=== PATIENT | male | born 1955 | race African-American/Black ===

== ENCOUNTER 2018-02-22 09:55 | Day surgery (SDC) | payer BC ==
[2018-02-21 13:04] VITALS: BMI 23.8
[2018-02-22 10:39] LABS: BASO % 0.8 % (0-2.0); EOS % 3.6 % (0-4.5); HEMATOCRIT 39.2 % (35.4-49); HEMOGLOBIN 13.9 GM/dL (11.7-16.9); LYMPH % 35.7 % (8-40); MCH 32.6 pg (25.7-33.7); MCHC 35.4 g/dl (32.0-35.9); MEAN CELL VOLUME 92.1 fl (80-96); MEAN PLT VOLUME 7.1 fl (7.5-11.1); MONO % 7.8 % (3.8-10.2); NEUT % 52.1 % (42.8-82.8); PLATELET COUNT 201 K/MM3 (134-434); RBC 4.25 M/mm3 (4.00-5.60); RDW 16.1 % (11.9-15.9); WHITE BLOOD COUNT 5.6 K/mm3 (4.0-10.0)
[2018-02-22 10:44] LABS: INR 1.08 (0.83-1.09); PROTHROMBIN TIME (PATIENT) 12.2 SEC (9.7-13.0)
[2018-02-22 10:51] LABS: ALBUMIN 3.6 g/dl (3.4-5.0); ANION GAP 5 (8-16); BILIRUBIN,TOTAL 0.4 mg/dL (0.2-1.0); BLOOD UREA NITROGEN 11 mg/dL (7-18); CALCIUM 8.4 mg/dL (8.5-10.1); CHLORIDE 109 mmol/L (98-107); CO2 28 mmol/L (21-32); GLUCOSE,RANDOM 86 mg/dL (74-106); POTASSIUM 3.9 mmol/L (3.5-5.1); SGOT/AST 7 U/L (15-37); SGPT/ALT 19 U/L (12-78); SODIUM 142 mmol/L (136-145); TOT PROT 7.2 g/dl (6.4-8.2)
[2018-02-22 10:52] LABS: ALK PHOS 81 U/L (45-117)
[2018-02-22 11:22] VITALS: BP 128/82; PULSE 96; TEMP 97.8
--- NOTE | 2018-02-22 12:46 | HP ---
History & Physical Update - History History: No Change - Physical Physical: No Change - Assessment Assessment: No Change - Plan Plan: No Change
--- NOTE | 2018-02-22 13:10 | EKG ---
Test Reason : Blood Pressure : / mmHG Vent. Rate : 089 BPM Atrial Rate : 115 BPM P-R Int : 000 ms QRS Dur : 078 ms QT Int : 368 ms P-R-T Axes : 000 078 064 degrees QTc Int : 447 ms NORMAL SINUS RHYTHM WITH FREQUENT and repetitive APC's, single, VPC's. OTHERWISE NORMAL ECG Confirmed by Berto Perez MD ([id number]) on 02/22/2018 1:10:11 PM Referred By: Pa Arceo Confirmed By:Berto Perez MD
--- NOTE | 2018-02-22 13:32 | PN ---
Progress Note (short form) - Note Progress Note: PULMONARY Just before anesthesia induction for bronchoscopy, pt was noted to go into paroxysmal atrial fibrillation with rapid rates. Pt with feeling of palpitations , he states that this happens to him when he lies down at night. Also reports some intermittent chest pain and shortness of breath. Procedure aborted. Spoke to office of PMD Dr. Brandon Mensah, will send pt to life teacher Dr. Mary Lou Coffey for further cardiac work up. Pa Arceo MD
== END 2018-02-22 13:35 | disposition home or self-care (01) ==
LOC: JASU-SURG 09:55
PROVIDERS: ATTEND Internal Medicine
PROC: 0BJ08ZZ Inspection of Tracheobronchial Tree, Via Natural or Artificial Opening Endoscopic (ICD-10-PCS; principal; 2018-02-22)
DX: D38.1 Neoplasm of uncertain behavior of trachea, bronchus and lung (principal); I48.0 Paroxysmal atrial fibrillation; Z72.0 Tobacco use; Z53.8 Procedure and treatment not carried out for other reasons; Z86.19 Personal history of other infectious and parasitic diseases
CPT/HCPCS: 36415; 80053; 85025; 85610; 93005; 93010

== ENCOUNTER 2018-04-07 10:39 | Inpatient (IN) | payer BC, OTHER ==
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
[2018-04-07 13:09] LABS: EOS % 3.2 % (0-4.5); HEMATOCRIT 42.6 % (35.4-49); HEMOGLOBIN 14.4 GM/dL (11.7-16.9); LYMPH % 35.9 % (8-40); MCH 31.3 pg (25.7-33.7); MCHC 33.7 g/dl (32.0-35.9); MEAN CELL VOLUME 92.7 fl (80-96); MEAN PLT VOLUME 7.1 fl (7.5-11.1); MONO % 9.3 % (3.8-10.2); NEUT % 50.6 % (42.8-82.8); PLATELET COUNT 204 K/MM3 (134-434); RBC 4.59 M/mm3 (4.00-5.60); RDW 15.7 % (11.9-15.9); WHITE BLOOD COUNT 4.9 K/mm3 (4.0-10.0)
[2018-04-07 13:20] LABS: INR 1.32 (0.83-1.09); PROTHROMBIN TIME (PATIENT) 15.6 SEC (9.7-13.0)
[2018-04-07 14:15] LABS: ALBUMIN 3.6 g/dl (3.4-5.0); ALK PHOS 70 U/L (45-117); ANION GAP 8 MMOL/L (8-16); BILIRUBIN,TOTAL 0.6 mg/dL (0.2-1); BLOOD UREA NITROGEN 11 mg/dL (7-18); CALCIUM 8.9 mg/dL (8.5-10.1); CHLORIDE 107 mmol/L (98-107); CO2 24 mmol/L (21-32); CREATININE 0.8 mg/dL (0.55-1.3); GLUCOSE,RANDOM 70 mg/dL (74-106); POTASSIUM 3.8 mmol/L (3.5-5.1); SGOT/AST 13 U/L (15-37); SGPT/ALT 16 U/L (13-61); SODIUM 138 mmol/L (136-145); TOT PROT 7.3 g/dl (6.4-8.2)
--- NOTE | 2018-04-07 14:24 | HP ---
Admitting History and Physical - Primary Care Physician PCP: Brandon Mensah I - Admission Chief Complaint: weight gain UE edema and facial edema History of Present Illness: CHIEF COMPLAINT: Shortness of breath HISTORY OF PRESENT ILLNESS: This is a 62-year-old male with a history of cigarette smoking, COPD, hypertension, recently diagnosed atrial fibrillation ( on Eliquis) and known lung nodule for 20 years. He was scheduled for bronchoscopy in February, but was noted to have new atrial fibrillation at the time of the procedure, so it was deferred. Since that time, he has had worsening symptoms, including dyspnea on minimal exertion and with laying flat ( he reports that he now has to sleep upright) and cough with occasional hemoptysis ("a spot" of blood). He presents today after being seen in his supervisor plating and point assembly's office with worsening dyspnea and new upper extremity edema. He is referred for suspicion of possible SVC syndrome.per patient he has gained 9 months with increase in upper arms and face swelling Vital signs on arrival are notable for SpO2 90% on room air. PCP: Dr. Ling Mensah Shaper And Presser: Dr. Coffey [place] Handle Knife Assembler: Dr. Arceo History Source: Patient - Past Medical History Cardiovascular: Yes: AFIB, HTN, Other (smoker with lung mass) Pulmonary: Yes: COPD - Smoking History Smoking history: Current every day smoker Aproximately how many cigarettes per day: 8 - Alcohol/Substance Use Hx Alcohol Use: No Home Medications - Allergies Allergies/Adverse Reactions: Allergies Allergy/AdvReac Type Severity Reaction Status Date / Time No Known Allergies Allergy Verified 04/07/18 10:50 - Home Medications Home Medications: Ambulatory Orders Albuterol Sulfate [Proventil HFA Inhaler -] 1 - 2 inh PO QID 02/22/18 Tiotropium Br/Olodaterol HCl [Stiolto Respimat Inhal [place]] 4 gm IH DAILY Apixaban [Eliquis] 5 mg PO BID 04/07/18 Metoprolol Succinate [Toprol Xl] 50 mg PO BID 04/07/18 Oxycodone HCl/Acetaminophen [Oxycodone-Acetaminophen 10-325] 1 each PO Q4H PRN 04/07/18 Review of Systems - Review of Systems Respiratory: reports: Cough Physical Examination Vital Signs: Vital Signs Temperature 97.9 F 04/07/18 10:51 Pulse Rate 79 04/07/18 10:51 Respiratory Rate 16 04/07/18 10:51 Blood Pressure 125/66 04/07/18 10:51 O2 Sat by Pulse Oximetry (%) 98 04/07/18 11:30 Constitutional: Yes: Calm, Other (facial and neck swelling) Cardiovascular: Yes: Regular Rate and Rhythm, S1, S2 Respiratory: Yes: Diminished Gastrointestinal: Yes: Normal Bowel Sounds, Soft Extremities: Yes: Other (upper extremity swelling) Edema: No Labs: CBC, BMP 04/07/18 12:50 04/07/18 12:50 Problem List - Problems (1) Dyspnea Assessment/Plan: ct scan of chest to r/o thrombus and to see SVC further evaluate the lung mass patient was supposed to get bronchscopy in february of this year but develop new onset afib cardio and pulm eval dvt ppx Code(s): R06.00 - DYSPNEA, UNSPECIFIED Qualifiers: Dyspnea type: dyspnea on exertion Qualified Code(s): R06.09 - Other forms of dyspnea (2) Lung mass Assessment/Plan: ct scan pulm eval bronchodilators oxygen therapy Code(s): R91.8 - OTHER NONSPECIFIC ABNORMAL FINDING OF LUNG FIELD (3) Afib Assessment/Plan: metoprolol eliquis Code(s): I48.91 - UNSPECIFIED ATRIAL FIBRILLATION (4) COPD (chronic obstructive pulmonary disease) Assessment/Plan: oxygen bronchodilators Code(s): J44.9 - CHRONIC OBSTRUCTIVE PULMONARY DISEASE, UNSPECIFIED
--- NOTE | 2018-04-07 14:57 | CON.PULM ---
Consult Consult Specialty:: PULMONARY Referred by:: Dr. Veliz Reason for Consultation:: lung mass - History of Present Illness Chief Complaint: arm/facial swelling History of Present Illness: 62yo male with h/o COPD, paroxysmal atrial fibrillation, known lung mass who was sent by client services analyst office for increasing facial and arm swelling. He reports symptoms started about 2 weeks ago with shortness of breath and dysphagia. Also noted to have voice hoarseness. He reports nocturnal dyspnea and then has to sleep at an incline. He does reports some chest discomfort. + cough with occasional blood. He was scheduled for a bronchoscopy in February, was about to induce anesthesia when he developed atrial fibrillation with RVR. Was sent to client services analyst who has been performing an outpt work up but still with episodes of atrial fibrillation. - History Source History Provided By: Patient, Medical Record Limitations to Obtaining History: No Limitations - Past Medical History Cardio/Vascular: Yes: AFIB, HTN, Other (smoker with lung mass) Pulmonary: Yes: COPD - Alcohol/Substance Use Hx Alcohol Use: No - Smoking History Smoking history: Current every day smoker Aproximately how many cigarettes per day: 8 Home Medications - Allergies Allergies/Adverse Reactions: Allergies Allergy/AdvReac Type Severity Reaction Status Date / Time No Known Allergies Allergy Verified 04/07/18 10:50 - Home Medications Home Medications: Ambulatory Orders Albuterol Sulfate [Proventil HFA Inhaler -] 1 - 2 inh PO QID 02/22/18 Tiotropium Br/Olodaterol HCl [Stiolto Respimat Inhal [place]] 4 gm IH DAILY Apixaban [Eliquis] 5 mg PO BID 04/07/18 Metoprolol Succinate [Toprol Xl] 50 mg PO BID 04/07/18 Oxycodone HCl/Acetaminophen [Oxycodone-Acetaminophen 10-325] 1 each PO Q4H PRN 04/07/18 Review of Systems - Review of Systems Constitutional: reports: Weakness. denies: Chills, Fever Eyes: denies: Recent Change in Vision HENT: reports: Difficult Swallowing, Throat Pain. denies: Nasal Congestion Neck: denies: Stiffness, Tenderness Cardiovascular: reports: Chest Pain, Edema, Shortness of Breath. denies: Palpitations Respiratory: reports: Cough, Hemoptysis, Orthopnea, PND, SOB on Exertion. denies: Wheezing Gastrointestinal: denies: Abdominal Pain, Nausea, Vomiting Genitourinary: denies: Dysuria, Hematuria Neurological: denies: Dizziness, Headache Endocrine: denies: Unexplained Weight Loss Physical Exam Vital Sings: Vital Signs Temperature 97.9 F 04/07/18 10:51 Pulse Rate 79 04/07/18 10:51 Respiratory Rate 16 04/07/18 10:51 Blood Pressure 125/66 04/07/18 10:51 O2 Sat by Pulse Oximetry (%) 98 04/07/18 11:30 Constitutional: Yes: Calm Eyes: Yes: Conjunctiva Clear, EOM Intact HENT: Yes: Atraumatic Neck: Yes: Other (edema) Cardiovascular: Yes: Regular Rate and Rhythm Respiratory: Yes: Diminished (decreased breath sounds at the bases) ...Clubbing: Yes Gastrointestinal: Yes: Normal Bowel Sounds, Soft. No: Tenderness Edema: Yes Labs: CBC, BMP 04/07/18 12:50 04/07/18 12:50 Imaging - Results Cat Scan: Image Reviewed (large RUL mass, emphysema) Problem List - Problems (1) SVC syndrome Code(s): I87.1 - COMPRESSION OF VEIN (2) COPD (chronic obstructive pulmonary disease) Code(s): J44.9 - CHRONIC OBSTRUCTIVE PULMONARY DISEASE, UNSPECIFIED (3) Hemoptysis Code(s): R04.2 - HEMOPTYSIS (4) Lung mass Code(s): R91.8 - OTHER NONSPECIFIC ABNORMAL FINDING OF LUNG FIELD (5) Smoker Code(s): F17.200 - NICOTINE DEPENDENCE, UNSPECIFIED, UNCOMPLICATED (6) Paroxysmal atrial fibrillation Code(s): I48.0 - PAROXYSMAL ATRIAL FIBRILLATION Assessment/Plan Likely SVC Syndrome Lung Mass COPD Emphysema Hemoptysis Paroxysmal Atrial Fibrillation on anticoagulation Smoker - CT chest with contrast - will need to hold anticoagulation and obtain needle biopsy - bridge eliquis with lovenox prior to biopsy - oncology and radiation oncology evaluation after biopsy - rate control - inhaled bronchodilators - monitor/quantify hemoptysis - smoking cessation Thank you for this consult Pa Arceo MD
--- NOTE | 2018-04-07 21:46 | EKG ---
Test Reason : Blood Pressure : / mmHG Vent. Rate : 072 BPM Atrial Rate : 072 BPM P-R Int : 180 ms QRS Dur : 082 ms QT Int : 398 ms P-R-T Axes : 048 -11 016 degrees QTc Int : 435 ms NORMAL SINUS RHYTHM NORMAL ECG WHEN COMPARED WITH ECG OF 22-FEB-2018 10:16, NONSPECIFIC T WAVE ABNORMALITY NOW EVIDENT IN INFERIOR LEADS Confirmed by SOL ANDERSON MD ([id number]) on 04/07/2018 9:45:59 PM Referred By: Confirmed By:SOL ANDERSON MD
[2018-04-07] MEDS ORDERED: APIXABAN 5 MG TABLET PO SCH (22:00)
[2018-04-07] MEDS: METOPROLOL TARTRATE 50 MG TABLET (FP) PO SCH (22:03)
[2018-04-07] MEDS ORDERED: METOPROLOL TARTRATE 50 MG TABLET (FP) ONE (22:05)
[2018-04-08] MEDS ORDERED: ACETAMINOPHEN 325 MG TABLET (FP) PO ONE (02:42)
[2018-04-08 06:02] LABS: BASO % 0.6 % (0-2.0); EOS % 2.9 % (0-4.5); HEMATOCRIT 40.2 % (35.4-49); HEMOGLOBIN 13.7 GM/dL (11.7-16.9); LYMPH % 26.5 % (8-40); MCH 31.3 pg (25.7-33.7); MEAN CELL VOLUME 91.9 fl (80-96); MEAN PLT VOLUME 7.2 fl (7.5-11.1); MONO % 9.3 % (3.8-10.2); NEUT % 60.7 % (42.8-82.8); PLATELET COUNT 234 K/MM3 (134-434); RBC 4.37 M/mm3 (4.00-5.60); RDW 15.6 % (11.9-15.9); WHITE BLOOD COUNT 5.7 K/mm3 (4.0-10.0)
[2018-04-08 06:22] LABS: ALBUMIN 3.6 g/dl (3.4-5.0); ALK PHOS 72 U/L (45-117); ANION GAP 8 MMOL/L (8-16); BILIRUBIN,TOTAL 0.5 mg/dL (0.2-1); BLOOD UREA NITROGEN 11 mg/dL (7-18); CALCIUM 9.6 mg/dL (8.5-10.1); CHLORIDE 106 mmol/L (98-107); CO2 25 mmol/L (21-32); CREATININE 0.7 mg/dL (0.55-1.3); GLUCOSE,RANDOM 84 mg/dL (74-106); POTASSIUM 4.2 mmol/L (3.5-5.1); SGOT/AST 11 U/L (15-37); SGPT/ALT 17 U/L (13-61); SODIUM 138 mmol/L (136-145); TOT PROT 7.3 g/dl (6.4-8.2)
[2018-04-08] MEDS ORDERED: PT OWN MED DRAWER 7, Y5N ONE ×2 (08:24→12:59)
--- NOTE | 2018-04-08 09:11 | CON.CARD ---
Consult Consult Specialty:: Cardiology Referred by:: Brandon Mensah MD - History of Present Illness Chief Complaint: SVC syndrome History of Present Illness: 62yo male with h/o HTN/HCVD, COPD, paroxysmal atrial fibrillation, known lung mass, hep C post treatment and chronic LBP, paroxysmal afib referred to ER for increasing facial and arm swelling. He reports symptoms started about 2 weeks ago with shortness of breath and dysphagia. Also noted to have voice hoarseness. He reports nocturnal dyspnea and then has to sleep at an incline. He does reports some chest discomfort. +cough with occasional blood. He was scheduled for a bronchoscopy in February, was about to induce anesthesia when he developed atrial fibrillation with RVR and palpitations confirmed by holter monitoring and decreasing in frequency after initiation of beta-blockade. - Past Medical History Cardio/Vascular: Yes: AFIB, HTN, Other (smoker with lung mass) Pulmonary: Yes: COPD - Alcohol/Substance Use Hx Alcohol Use: No - Smoking History Smoking history: Current every day smoker Have you smoked in the past 12 months: Yes Aproximately how many cigarettes per day: 5 Home Medications - Allergies Allergies/Adverse Reactions: Allergies Allergy/AdvReac Type Severity Reaction Status Date / Time No Known Allergies Allergy Verified 04/07/18 10:50 - Home Medications Home Medications: Ambulatory Orders Albuterol Sulfate [Proventil HFA Inhaler -] 1 - 2 inh PO QID 02/22/18 Tiotropium Br/Olodaterol HCl [Stiolto Respimat Inhal [place]] 4 gm IH DAILY Apixaban [Eliquis] 5 mg PO BID 04/07/18 Metoprolol Succinate [Toprol Xl] 50 mg PO BID 04/07/18 Oxycodone HCl/Acetaminophen [Oxycodone-Acetaminophen 10-325] 1 each PO Q4H PRN 04/07/18 Family Disease History - Family Disease History Family History: Unremarkable Review of Systems - Review of Systems Constitutional: reports: No Symptoms Eyes: reports: No Symptoms HENT: reports: No Symptoms Neck: reports: No Symptoms Respiratory: reports: Hemoptysis, SOB, SOB on Exertion Gastrointestinal: reports: No Symptoms Genitourinary: reports: No Symptoms Musculoskeletal: reports: No Symptoms Integumentary: reports: No Symptoms Neurological: reports: No Symptoms Endocrine: reports: No Symptoms Hematology/Lymphatic: reports: No Symptoms Vital Signs: Vital Signs Temperature 99.0 F 04/08/18 04:51 Pulse Rate 82 04/08/18 07:58 Respiratory Rate 18 04/08/18 07:58 Blood Pressure 151/88 04/08/18 07:58 O2 Sat by Pulse Oximetry (%) 95 04/07/18 22:36 Constitutional: Yes: No Distress, Calm Neck: Yes: Supple Respiratory: Yes: Regular, Diminished, On Nasal O2 Gastrointestinal: Yes: Normal Bowel Sounds, Soft Cardiovascular: Yes: Regular Rate and Rhythm JVD: No Carotid Bruit: No Heart Sounds: Yes: S1, S2 Edema: Yes - Other Data Labs, Other Data: CBC, BMP 04/08/18 05:30 04/08/18 05:30 INR, PTT INR 1.32 (0.83-1.09) H 04/07/18 12:50 Troponin, BNP 04/07/18 12:50 Troponin I < 0.02 B-Natriuretic Peptide 32.0 Troponin, BNP 04/07/18 12:50 Troponin I < 0.02 B-Natriuretic Peptide 32.0 NSR @ 72 Tele: PAF->SR Holter: Report Reviewed Ejection Fraction %: LVEF > or = 40 % Imaging - Results Cat Scan: Report Reviewed Problem List - Problems (1) COPD (chronic obstructive pulmonary disease) Code(s): J44.9 - CHRONIC OBSTRUCTIVE PULMONARY DISEASE, UNSPECIFIED Qualifiers: COPD type: unspecified COPD Qualified Code(s): J44.9 - Chronic obstructive pulmonary disease, unspecified (2) Dyspnea Code(s): R06.00 - DYSPNEA, UNSPECIFIED Qualifiers: Dyspnea type: dyspnea on exertion Qualified Code(s): R06.09 - Other forms of dyspnea (3) Hemoptysis Code(s): R04.2 - HEMOPTYSIS (4) Lung mass Code(s): R91.8 - OTHER NONSPECIFIC ABNORMAL FINDING OF LUNG FIELD (5) Paroxysmal atrial fibrillation Code(s): I48.0 - PAROXYSMAL ATRIAL FIBRILLATION (6) SVC syndrome Code(s): I87.1 - COMPRESSION OF VEIN (7) Smoker Code(s): F17.200 - NICOTINE DEPENDENCE, UNSPECIFIED, UNCOMPLICATED Assessment/Plan 02/22/2018 Holter Monitor: SR with paroxysmal afib/flutter with aberrant conduction (RBBB morphology) 5.44% of time, frequent PAC, PVC 12/22/2017 Large irregular cavitary soft tissue mass involving right superior mediastinum in right to mid and superior hilar region suspicious for primary or secondary malignancy 04/07/2018 Large central RUL mass with invasion of mediastinum and adjacent consolidation/ATX RUL, distal SVC stenosis without obstruction with collateralization 03/11/2018 Echo: Normal LV and RV size and fxn with abnl LV compliance, mildly dilated ascending aorta, mild MR, TR. tr AL 03/29/2018 ETT Myoview: Negative maximal stress test for ischemia, LVEF 60% 1. SVC Syndrome 2. RUL Lung Mass with hemoptysis 3. COPD/Emphysema 4. Palpitations, Paroxysmal Atrial Fibrillation->SR [id number] on anticoagulation 5. HTN/HCVD 6. Hep C post-treatment 7. Smoker Plan: 1. Hold Eliquis for biopsy, bridge eliquis with lovenox prior to biopsy 2. CTS, oncology and radiation oncology evaluation after biopsy 3. Rate control with Lopressor 50 bid 4. Inhaled bronchodilators, O2 as needed, smoking cessation 5. Thank you for consultative opportunity -
--- NOTE | 2018-04-08 09:41 | PN ---
Progress Note, Physician History of Present Illness: 62-year-old male with a history of cigarette smoking, COPD, hypertension, recently diagnosed atrial fibrillation (on Eliquis) and known lung nodule for 20 years. He was scheduled for bronchoscopy in February, but was noted to have new atrial fibrillation at the time of the procedure, so it was deferred. Since that time, he has had worsening symptoms, including dyspnea on minimal exertion and with laying flat (he reports that he now has to sleep upright) and cough with occasional hemoptysis ("a spot" of blood). He presents today after being seen in his pulmonary fellow's office with worsening dyspnea and new upper extremity edema. He is referred for suspicion of possible SVC syndrome.per patient he has gained 9 months with increase in upper arms and face swelling Vital signs on arrival are notable for SpO2 90% on room air. - Current Medication List Current Medications: Active Medications Influenza Virus Vaccine Quadrival (Flulaval Quad [id number]) 60 mcg IM .ONCE ONE Stop: 04/08/18 10:01 Metoprolol Tartrate (Lopressor -) 50 mg PO BID [facility] Last Admin: 04/07/18 22:03 Dose: 50 mg Pneumococcal 13-Valent Conj Vacc (Prevnar 13 Syringe -) 0.5 ml IM .ONCE ONE Stop: 04/08/18 10:01 Tiotropium [place] (Spiriva Respimat) 2 puff IH DAILY [facility] - Objective Vital Signs: Vital Signs Temperature 99.0 F 04/08/18 04:51 Pulse Rate 82 04/08/18 07:58 Respiratory Rate 18 04/08/18 07:58 Blood Pressure 151/88 04/08/18 07:58 O2 Sat by Pulse Oximetry (%) 95 04/07/18 22:36 Cardiovascular: Yes: Murmur, S1, S2 Respiratory: Yes: Diminished Gastrointestinal: Yes: Normal Bowel Sounds, Soft. No: Tenderness Labs: CBC, BMP 04/08/18 05:30 04/08/18 05:30 INR, PTT INR 1.32 (0.83-1.09) H 04/07/18 12:50 Problem List - Problems (1) Lung mass Assessment/Plan: ct scan pulm eval bronchodilators oxygen therapy Code(s): R91.8 - OTHER NONSPECIFIC ABNORMAL FINDING OF LUNG FIELD (2) Dyspnea Assessment/Plan: ct scan of chest to r/o thrombus and to see SVC further evaluate the lung mass patient was supposed to get bronchscopy in february of this year but develop new onset afib cardio and pulm eval dvt ppx Code(s): R06.00 - DYSPNEA, UNSPECIFIED Qualifiers: Dyspnea type: dyspnea on exertion Qualified Code(s): R06.09 - Other forms of dyspnea (3) Afib Assessment/Plan: metoprolol eliquis on hold for biopsy Code(s): I48.91 - UNSPECIFIED ATRIAL FIBRILLATION (4) COPD (chronic obstructive pulmonary disease) Assessment/Plan: oxygen bronchodilators Code(s): J44.9 - CHRONIC OBSTRUCTIVE PULMONARY DISEASE, UNSPECIFIED Qualifiers: COPD type: unspecified COPD Qualified Code(s): J44.9 - Chronic obstructive pulmonary disease, unspecified (5) SVC syndrome Assessment/Plan: Pulm on board TS consult Code(s): I87.1 - COMPRESSION OF VEIN
[2018-04-08] MEDS: METOPROLOL TARTRATE 50 MG TABLET (FP) PO SCH (09:51)
[2018-04-08] MEDS ORDERED: PNEUMOC 13-VAL CONJ-DIP CRM/PF 0.5 ML DISP.SYRIN IM ONE (10:00)
[2018-04-08] MEDS ORDERED: FLU VACCINE QUAD 60 MCG/0.5 ML (MDV 18-19) IM ONE (10:00)
[2018-04-08] MEDS: ENOXAPARIN NA (PORCINE) 100 MG/1 ML DISP.SYRIN SQ SCH ×2 (12:59→23:04)
[2018-04-08] MEDS: TIOTROPIUM BROMIDE 2.5 MCG (SPIRIVA) RESPIMAT INHALER IH SCH (13:00)
--- NOTE | 2018-04-08 13:30 | PN ---
Progress Note (short form) - Note Progress Note: Breathing feels a little better. Reports "chest fullness". feels the left side of his face is slightly more swollen today. CTS evaluation has been called. Lovenox 100mg BID ordered. Intake & Output 04/05/18 04/06/18 04/07/18 04/08/18 23:59 23:59 23:59 23:59 Intake Total 0 100 Balance 0 100 Weight 192 lb 6.4 oz Last Vital Signs Temp Pulse Resp BP Pulse Ox 99.0 F 82 18 151/88 96 04/08/18 04:51 04/08/18 07:58 04/08/18 07:58 04/08/18 07:58 04/08/18 09:00 Active Medications Enoxaparin Sodium (Lovenox -) 100 mg SQ BID [facility] Last Admin: 04/08/18 12:59 Dose: 100 mg Metoprolol Tartrate (Lopressor -) 50 mg PO BID [facility] Last Admin: 04/08/18 09:51 Dose: 50 mg Tiotropium [place] (Spiriva Respimat) 2 puff IH DAILY [facility] Last Admin: 04/08/18 13:00 Dose: 2 puff Constitutional: Yes: NAD Eyes: Yes: Conjunctiva Clear, EOM Intact HENT: Yes: Atraumatic Neck: Yes: (-) JVD, Right neck fullness Cardiovascular: Yes: Regular Rate and Rhythm Respiratory: Yes: Diminished (decreased breath sounds at the bases) ...Clubbing: Yes Gastrointestinal: Yes: Normal Bowel Sounds, Soft. No: Tenderness Edema: RUE swelling Labs: Laboratory Results - last 24 hr 04/07/18 04/07/18 04/07/18 12:50 12:50 17:05 WBC RBC Hgb Hct MCV MCH MCHC RDW Plt Count MPV Absolute Neuts (auto) Neutrophils % Lymphocytes % Monocytes % Eosinophils % Basophils % Nucleated RBC % Sodium 138 Potassium 3.8 Chloride 107 Carbon Dioxide 24 Anion Gap 8 BUN 11 Creatinine 0.8 Creat Clearance w eGFR > 60 Random Glucose 70 L Calcium 8.9 Total Bilirubin 0.6 AST 13 L ALT 16 Alkaline Phosphatase 70 Troponin I < 0.02 B-Natriuretic Peptide 32.0 Total Protein 7.3 Albumin 3.6 Blood Type O POSITIVE O POSITIVE Antibody Screen Negative 04/08/18 04/08/18 05:30 05:30 WBC 5.7 RBC 4.37 Hgb 13.7 Hct 40.2 MCV 91.9 MCH 31.3 MCHC 34.0 RDW 15.6 Plt Count 234 MPV 7.2 L Absolute Neuts (auto) 3.5 Neutrophils % 60.7 Lymphocytes % 26.5 D Monocytes % 9.3 Eosinophils % 2.9 Basophils % 0.6 Nucleated RBC % 0 Sodium 138 Potassium 4.2 Chloride 106 Carbon Dioxide 25 Anion Gap 8 BUN 11 Creatinine 0.7 Creat Clearance w eGFR > 60 Random Glucose 84 Calcium 9.6 Total Bilirubin 0.5 AST 11 L ALT 17 Alkaline Phosphatase 72 Troponin I B-Natriuretic Peptide Total Protein 7.3 Albumin 3.6 Blood Type Antibody Screen Problem List - Problems (1) SVC syndrome Code(s): I87.1 - COMPRESSION OF VEIN (2) COPD (chronic obstructive pulmonary disease) Code(s): J44.9 - CHRONIC OBSTRUCTIVE PULMONARY DISEASE, UNSPECIFIED (3) Hemoptysis Code(s): R04.2 - HEMOPTYSIS (4) Lung mass Code(s): R91.8 - OTHER NONSPECIFIC ABNORMAL FINDING OF LUNG FIELD (5) Smoker Code(s): F17.200 - NICOTINE DEPENDENCE, UNSPECIFIED, UNCOMPLICATED (6) Paroxysmal atrial fibrillation Code(s): I48.0 - PAROXYSMAL ATRIAL FIBRILLATION Assessment/Plan SVC Syndrome due to Lung Mass COPD Emphysema Hemoptysis Paroxysmal Atrial Fibrillation on anticoagulation Smoker - CTS evaluation has been called - NOAC changed to Lovenox - Rate control - Inhaled bronchodilators - Monitor/quantify hemoptysis (none today) - smoking cessation discussed - Monitor UE/chest edema Dr Jean
--- NOTE | 2018-04-08 15:31 | CONSULT ---
Consultation: REQUESTING PROVIDER:Anika Veliz CONSULT REQUEST: We have been asked to medically evaluate this patient for Lung Mass HISTORY OF PRESENT ILLNESS: 62 yo male with PMHx of smoking with COPD, paroxysmal atrial fibrillation (AC -Eliquis), known lung mass who was sent from his [facility] for increasing facial and arm swelling. He states that for the past two weeks he has noticed increased swelling of right arm and right face. Swelling is associated with voice changes. He reports nocturnal dyspnea and then has to sleep at an incline. He also describes intermittent 9/10 sharp right sided chest pain that radiates to his back. No alleviating or aggravating factors. Accompanied by headache. He endorses that one week prior he had one episode of coughing which he had a spot of blood. He was scheduled for a bronchoscopy in February, was about to induce anesthesia when he developed atrial fibrillation with RVR. Was sent to [facility] long [facility] care who has been performing an outpatient work up but still with episodes of atrial fibrillation. He also reports a 9 lbs weight gain in past 2 weeks based on his weights at cardiology visits. Denies SOB, abdominal pain, nausea, vomiting, fever or chills. - History Source History Provided By: Patient, Medical Record Limitations to Obtaining History: No Limitations - Past Medical History Cardio/Vascular: Yes: AFIB, HTN, Other (smoker with lung mass) Pulmonary: Yes: COPD - Alcohol/Substance Use Hx Alcohol Use: No - Smoking History Smoking history: Current every day smoker Aproximately how many cigarettes per day: 8 REVIEW OF SYSTEMS: CONSTITUTIONAL: weight change Absent: fever, chills, diaphoresis, generalized weakness, malaise, loss of appetite, HEENT: Absent: rhinorrhea, nasal congestion, throat pain, throat swelling, difficulty swallowing, mouth swelling, ear pain, eye pain, visual changes CARDIOVASCULAR: chest pain Absent: , syncope, palpitations, irregular heart rate, lightheadedness, peripheral edema RESPIRATORY: cough, dyspnea with exertion Absent: , shortness of breath, , orthopnea, wheezing, stridor, hemoptysis GASTROINTESTINAL: Absent: abdominal pain, abdominal distension, nausea, vomiting, diarrhea, constipation, melena, hematochezia GENITOURINARY: Absent: dysuria, frequency, urgency, hesitancy, hematuria, flank pain, genital pain MUSCULOSKELETAL: Absent: myalgia, arthralgia, joint swelling, back pain, neck pain SKIN: Absent: rash, itching, pallor HEMATOLOGIC/IMMUNOLOGIC: Absent: easy bleeding, easy bruising, lymphadenopathy, frequent infections ENDOCRINE:unexplained weight gain Absent: , unexplained weight loss, heat intolerance, cold intolerance NEUROLOGIC: Absent: headache, focal weakness or paresthesias, dizziness, unsteady gait, seizure, mental status changes, bladder or bowel incontinence PSYCHIATRIC: Absent: anxiety, depression, suicidal or homicidal ideation, hallucinations. PHYSICAL EXAMINATION Vital Signs - 24 hr 04/07/18 04/07/18 04/07/18 16:08 21:58 22:36 Temperature 97.7 F 98.1 F Pulse Rate 88 Pulse Rate [ 78 92 H Radial] Respiratory 20 19 19 Rate Blood Pressure 132/90 Blood Pressure 134/66 [Left Arm] Blood Pressure 113/80 [Right Arm] O2 Sat by Pulse 97 98 95 Oximetry (%) 04/08/18 04/08/18 04/08/18 02:00 04:51 07:58 Temperature 99.0 F Pulse Rate 82 92 H 82 Pulse Rate [ Radial] Respiratory 20 17 18 Rate Blood Pressure 122/82 135/86 151/88 Blood Pressure [Left Arm] Blood Pressure [Right Arm] O2 Sat by Pulse Oximetry (%) 04/08/18 04/08/18 09:00 12:00 Temperature 98.6 F Pulse Rate 70 Pulse Rate [ Radial] Respiratory 18 Rate Blood Pressure 127/81 Blood Pressure [Left Arm] Blood Pressure [Right Arm] O2 Sat by Pulse 96 Oximetry (%) GENERAL: AAOx3, NAD HEAD: NCAT EYES: PERRLA, EOMI, sclera anicteric, conjunctiva clear. No lid lag. EARS, NOSE, THROAT: Moist mucous membranes. NECK: Normal range of motion, supple with increased swelling on right side. LUNGS: decreased breath sounds bilaterally, scattered rhonchi. No accessory muscle use. HEART: RRR, normal S1 and S2 without murmur, rub or gallop. ABDOMEN: Soft, NTND,NABS, no guarding, no rebound, no masses. No hepatomegaly or splenomegaly. MUSCULOSKELETAL: Normal range of motion at all joints. No bony deformities or tenderness. No CVA tenderness. UPPER EXTREMITIES: 2+ pulses, warm, well-perfused. No cyanosis. No clubbing. R arm edema. LOWER EXTREMITIES: 2+ pulses, warm, well-perfused. No calf tenderness. No peripheral edema. NEUROLOGICAL: Cranial nerves II-XII intact. Normal speech.gait not observed. PSYCHIATRIC: Cooperative. Good eye contact. Appropriate mood and affect. SKIN: Warm, dry, normal turgor, no rashes or lesions noted. Laboratory Results - last 24 hr 04/07/18 04/08/18 04/08/18 17:05 05:30 05:30 WBC 5.7 RBC 4.37 Hgb 13.7 Hct 40.2 MCV 91.9 MCH 31.3 MCHC 34.0 RDW 15.6 Plt Count 234 MPV 7.2 L Absolute Neuts (auto) 3.5 Neutrophils % 60.7 Lymphocytes % 26.5 D Monocytes % 9.3 Eosinophils % 2.9 Basophils % 0.6 Nucleated RBC % 0 Sodium 138 Potassium 4.2 Chloride 106 Carbon Dioxide 25 Anion Gap 8 BUN 11 Creatinine 0.7 Creat Clearance w eGFR > 60 Random Glucose 84 Calcium 9.6 Total Bilirubin 0.5 AST 11 L ALT 17 Alkaline Phosphatase 72 Total Protein 7.3 Albumin 3.6 Blood Type O POSITIVE Active Medications Generic Name Dose Route Start Last Admin Trade Name Freq PRN Reason Stop Dose Admin Enoxaparin Sodium 100 mg 04/08/18 12:15 04/08/18 12:59 Lovenox - SQ 100 mg BID [facility] Administration Metoprolol Tartrate 50 mg 04/07/18 22:00 04/08/18 09:51 Lopressor - PO 50 mg BID [facility] Administration Tiotropium [place] 2 puff 04/08/18 10:00 04/08/18 13:00 Spiriva Respimat IH 2 puff DAILY [facility] Administration IMAGING: * CT/CHEST CT WITH CONTRASTHISTORY PROVIDED: Rule out SVC syndrome. Sequential axial images were obtained from the thoracic inlet through the domes of the diaphragm following the administration of intravenous contrast material. This study is a follow-up to an examination of earlier in the day which was performed without the use of intravenous contrast. Evaluation of the SVC demonstrates marked narrowing of the distal cava by a large central right upper lobe mass as it empties into the right atrium. The SVC is not completely occluded, however. Collateral venous channels are noted within the right chest wall and base of the neck. No additional changes have occurred within the chest since the prior study. IMPRESSION: Marked narrowing of the distal SVC without complete occlusion. Collateral venous channels identified within the right chest wall and base of the neck. Clinical correlation is advised. Please see above discussion. Reported By: Carson Johnston MD 04/08/18 0944 ASSESSMENT/PLAN: 62 yo male with PMHx of COPD, paroxysmal atrial fibrillation (AC-Eliquis), known lung mass who was sent from his [facility] long [facility] care office for increasing facial and arm swelling. Admitted for possible SVC syndrome. Dispo: We will continue to follow the patient. Thank you for this consultative opportunity. Problem List - Problems (1) Lung mass Assessment/Plan: CT surgery has been consulted for further management. * tissue needed to determine histology. * Recommendation can be made one tissue diagnosis is made. * therapeutic Lovenox SQ BID * may consider CT head, abdomen/pelvis for staging. (2) SVC syndrome Assessment/Plan: At this time breathing is not compromised * Awaiting CT surgery for further managment. * ON AC (3) COPD (chronic obstructive pulmonary disease) Assessment/Plan: * Supplemental O2 PRN * maintain SpO2 >90% * Tiotropium [place] (Spiriva Respimat) 2 puff IH DAILY Visit type - Emergency Visit Emergency Visit: Yes ED Registration Date: 04/07/18 Care time: The patient presented to the Emergency Department on the above date and was hospitalized for further evaluation of their emergent condition. - New Patient This patient is new to me today: Yes Date on this admission: 04/08/18 - Critical Care Critical Care patient: No
[2018-04-08] MEDS: SOTALOL HCL 80 MG TABLET (FP) PO SCH ×2 (21:51→21:52)
[2018-04-08] MEDS ORDERED: SOTALOL HCL 80 MG TABLET (FP) PO SCH (22:00)
--- NOTE | 2018-04-08 23:14 | PN ---
Teaching Attending Note Name of Resident: Jaime Kruger ATTENDING PHYSICIAN STATEMENT I saw and evaluated the patient. I reviewed the resident's note and discussed the case with the resident. I agree with the resident's findings and plan as documented. 62-year-old male with a history of cigarette smoking, COPD, hypertension, recently diagnosed atrial fibrillation (on Eliquis) and known lung nodule for 20 years. He was scheduled for bronchoscopy in February, but was noted to have new atrial fibrillation at the time of the procedure, so it was deferred. Since that time, he has had worsening symptoms, including dyspnea on minimal exertion and with laying flat (he reports that he now has to sleep upright) and cough with occasional hemoptysis . He presents with worsening dyspnea and new upper extremity edema. He is referred for suspicion of possible SVC syndrome.per patient he has gained 9 pounds with increase in upper arms and face swelling - Current Medication List Current Medications: Active Medications Influenza Virus Vaccine Quadrival (Flulaval Quad [id number]) 60 mcg IM .ONCE ONE Stop: 04/08/18 10:01 Metoprolol Tartrate (Lopressor -) 50 mg PO BID [facility] Last Admin: 04/07/18 22:03 Dose: 50 mg Pneumococcal 13-Valent Conj Vacc (Prevnar 13 Syringe -) 0.5 ml IM .ONCE ONE Stop: 04/08/18 10:01 Tiotropium [place] (Spiriva Respimat) 2 puff IH DAILY [facility] - Objective Vital Signs: Vital Signs Temperature 99.0 F 04/08/18 04:51 Pulse Rate 82 04/08/18 07:58 Respiratory Rate 18 04/08/18 07:58 Blood Pressure 151/88 04/08/18 07:58 O2 Sat by Pulse Oximetry (%) 95 04/07/18 22:36 edematous face and RUE Cardiovascular: Yes: Murmur, S1, S2 Respiratory: Yes: Diminished Gastrointestinal: Yes: Normal Bowel Sounds, Soft. No: Tenderness ex. --no cyanosis/clubbung/edema Labs: CBC, BMP 04/08/18 05:30 04/08/18 05:30 INR, PTT INR 1.32 (0.83-1.09) H 04/07/18 12:50 A/P 62-year-old male with a history of cigarette smoking, COPD, hypertension, recently diagnosed atrial fibrillation (on Eliquis) and known lung nodule for 20 years. He was scheduled for bronchoscopy in February, but was noted to have new atrial fibrillation at the time of the procedure, so it was deferred. Since that time, he has had worsening symptoms, including dyspnea on minimal exertion and with laying flat (he reports that he now has to sleep upright) and cough with occasional hemoptysis . He presents with worsening dyspnea and new upper extremity edema. He is referred for suspicion of possible SVC syndrome. CT imaging shows large central right upper lobe mass causing narrowing of SVC. Marked narrowing of distal SVC. will need tissue diagnosis--- bronchoscopy versus CT guided will need endovenous stent placement--discuss with IR will request rad-onc consult On lovenox for anticoagulation for afib discussed with pulmonary team
--- NOTE | 2018-04-09 08:19 | PN ---
Progress Note (short form) - Note Progress Note: Chief Complaint: Events noted, notes reviewed, denies any chest pain but reports dyspnea, sinus rhythm is noted with paroxysmal atrial flutter/atrial fibrillation History of Present Illness: Seen and examined on telemetry. Events noted, notes reviewed, denies any chest pain but reports dyspnea, sinus rhythm is noted with paroxysmal atrial flutter/ atrial fibrillation Initiated on Betapace related to recurrent arrhythmia 02/22/2018 Holter Monitor: SR with paroxysmal atrial fibrillation/atrial flutter with aberrant conduction (RBBB morphology) 5.44% of time, frequent PAC's , PVC's 12/22/2017 Large irregular cavitary soft tissue mass involving right superior mediastinum in right to mid and superior hilar region suspicious for primary or secondary malignancy 04/07/2018 Large central RUL mass with invasion of mediastinum and adjacent consolidation/ATX RUL, distal SVC stenosis without obstruction with collateralization 03/11/2018 Echocardiography: Normal LV and RV size and fxn with abnl LV compliance, mildly dilated ascending aorta, mild MR, TR. tr MS 03/29/2018 MPI study: Negative maximal stress test for ischemia, LVEF 60% Medications: Current Medications Enoxaparin Sodium (Lovenox -) 100 mg SQ BID [facility] Last Admin: 04/08/18 23:04 Dose: 100 mg Sotalol HCl (Betapace -) 80 mg PO BID [facility] Last Admin: 04/08/18 21:52 Dose: Not Given Tiotropium [place] (Spiriva Respimat) 2 puff IH DAILY [facility] Last Admin: 04/08/18 13:00 Dose: 2 puff Review of Systems - Review of Systems Constitutional: no symptoms reported Respiratory: reports Cough Cardiovascular: as noted above Gastrointestinal: denies Nausea, Vomiting, Diarrhea, Constipation or Abdominal Pain Genitourinary: no symptoms reported Musculoskeletal: no symptoms reported Endocrine: no symptoms reported Vital Signs: Last Vital Signs Temp Pulse Resp BP Pulse Ox 99.6 F 88 18 125/75 96 04/09/18 02:00 04/09/18 06:00 04/09/18 06:00 04/09/18 06:00 04/08/18 20:24 Intake & Output 04/06/18 04/07/18 04/08/18 04/09/18 23:59 23:59 23:59 23:59 Intake Total 0 340 240 Balance 0 340 240 Weight 192 lb 6.4 oz Neck: Supple Negative JVD Respiratory: Bilateral Scattered Rhonchi Cardiovascular: S1 S2 Regular Rate and Rhythm Gastrointestinal: Soft Benign Normal Bowel Sounds Ext: Negative Edema Labs: CBC, BMP 04/08/18 05:30 04/08/18 05:30 Hepatic Panel Total Bilirubin 0.5 mg/dL (0.2-1) 04/08/18 05:30 AST 11 U/L (15-37) L 04/08/18 05:30 ALT 17 U/L (13-61) 04/08/18 05:30 Alkaline Phosphatase 72 U/L (45-117) 04/08/18 05:30 Albumin 3.6 g/dl (3.4-5.0) 04/08/18 05:30 Assessment/Plan ASSESSMENT: 1. 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 RUL Lung Mass with hemoptysis, awaiting tissue biopsy planned for this coming week 3. COPD/Emphysema 4. Palpitations, Paroxysmal Atrial Fibrillation/paroxysmal atrial flutter [id number] score of 1 on anticoagulation, Eliquis bridging for procedure with Lovenox 5. Diastolic LV dysfunction with class 0 NYHA classification LV failure 6. HTN/HCVD 7. Hepatitis C post-treatment 8. Smoker PLAN: 1. Continue Lovenox bridging pending mass biopsy, this coming week 2. Continue Betapace with close monitoring of QTc interval, obtain EKG today and in AM 3. Add Cardizem to assist with rate control 4. No absolute contraindications in proceeding with planned procedure/biopsy Mary Lou Coffey M.D.
[2018-04-09] MEDS ORDERED: PT OWN MED DRAWER 7, Y5N ONE ×2 (08:55→19:59)
[2018-04-09] MEDS: SOTALOL HCL 80 MG TABLET (FP) PO SCH ×2 (09:57→21:04)
[2018-04-09] MEDS: ENOXAPARIN NA (PORCINE) 100 MG/1 ML DISP.SYRIN SQ SCH ×2 (09:57→21:05)
[2018-04-09] MEDS: TIOTROPIUM BROMIDE 2.5 MCG (SPIRIVA) RESPIMAT INHALER IH SCH (10:05)
--- NOTE | 2018-04-09 12:59 | PN ---
Progress Note, Physician Chief Complaint: AWAKE ALERT NOTES AND EVENTS REVIEWED DENIES CHEST PAIN + SOB - Current Medication List Current Medications: Active Medications Diltiazem HCl (Cardizem Cd -) 120 mg PO DAILY [facility] Last Admin: 04/09/18 10:03 Dose: 120 mg Enoxaparin Sodium (Lovenox -) 100 mg SQ BID [facility] Last Admin: 04/09/18 09:57 Dose: 100 mg Piperacillin Sod/Tazobactam (Sod 4.5 gm/ Dextrose) 100 mls @ 200 mls/hr IVPB Q8H-IV [facility]ON[facility]; Protocol Sotalol HCl (Betapace -) 80 mg PO BID [facility] Last Admin: 04/09/18 09:57 Dose: 80 mg Tiotropium [place] (Spiriva Respimat) 2 puff IH DAILY [facility] Last Admin: 04/09/18 10:05 Dose: 2 puff - Objective Vital Signs: Vital Signs Temperature 98 F 04/09/18 10:00 Pulse Rate 104 H 04/09/18 10:00 Respiratory Rate 20 04/09/18 10:00 Blood Pressure 114/82 04/09/18 10:00 O2 Sat by Pulse Oximetry (%) 94 L 04/09/18 09:00 Constitutional: Yes: Mild Distress Eyes: Yes: WNL HENT: Yes: WNL Neck: Yes: WNL Cardiovascular: Yes: WNL Respiratory: Yes: Diminished, SOB Gastrointestinal: Yes: WNL Musculoskeletal: Yes: WNL Extremities: Yes: WNL Edema: No Peripheral Pulses WNL: Yes Integumentary: Yes: WNL Wound/Incision: Yes: Clean/Dry Neurological: Yes: WNL ...Motor Strength: WNL Psychiatric: Yes: WNL Labs: CBC, BMP 04/08/18 05:30 04/08/18 05:30 INR, PTT INR 1.32 (0.83-1.09) H 04/07/18 12:50 Problem List - Problems (1) Afib Code(s): I48.91 - UNSPECIFIED ATRIAL FIBRILLATION (2) COPD (chronic obstructive pulmonary disease) Code(s): J44.9 - CHRONIC OBSTRUCTIVE PULMONARY DISEASE, UNSPECIFIED Qualifiers: COPD type: unspecified COPD Qualified Code(s): J44.9 - Chronic obstructive pulmonary disease, unspecified (3) Dyspnea Code(s): R06.00 - DYSPNEA, UNSPECIFIED Qualifiers: Dyspnea type: dyspnea on exertion Qualified Code(s): R06.09 - Other forms of dyspnea (4) Hemoptysis Code(s): R04.2 - HEMOPTYSIS (5) Lung mass Code(s): R91.8 - OTHER NONSPECIFIC ABNORMAL FINDING OF LUNG FIELD (6) Paroxysmal atrial fibrillation Code(s): I48.0 - PAROXYSMAL ATRIAL FIBRILLATION (7) SVC syndrome Code(s): I87.1 - COMPRESSION OF VEIN (8) Smoker Code(s): F17.200 - NICOTINE DEPENDENCE, UNSPECIFIED, UNCOMPLICATED Assessment/Plan SUBSTANCE ABUSE HISTORY D/W PATIENT SMOKING CESSATION D/W PATIENT SVC SYNDROME, WILL NEED IR TO PLACE STENT OOB TO CHAIR LUNG BIOPSY 02 SUPPORT
--- NOTE | 2018-04-09 16:32 | PN ---
Progress Note (short form) - Note Progress Note: 62-year-old male with a history of cigarette smoking, COPD, hypertension, recently diagnosed atrial fibrillation (on Eliquis) and known lung nodule for 20 years. He was scheduled for bronchoscopy in February, but was noted to have new atrial fibrillation at the time of the procedure, so it was deferred. Since that time, he has had worsening symptoms, including dyspnea on minimal exertion and with laying flat (he reports that he now has to sleep upright) and cough with occasional hemoptysis . He presents with worsening dyspnea and new upper extremity edema. He is referred for suspicion of possible SVC syndrome.per patient he has gained 9 pounds with increase in upper arms and face swelling He feels his swelling has decreased and is doing better. His SOB has slighly improved - Objective Vital Signs: Vital Signs Period Temp Pulse Resp BP Sys/Gtz Pulse Ox Last 24 Hr 98 F-99.6 F 84-104 18-20 109-145/70-86 94-96 edematous face and RUE Cardiovascular: Yes: Murmur, S1, S2 Respiratory: Yes: Diminished Gastrointestinal: Yes: Normal Bowel Sounds, Soft. No: Tenderness ex. --no cyanosis/clubbung/edema Labs: CBC, BMP 04/08/18 05:30 04/08/18 05:30 A/P 62-year-old male with a history of cigarette smoking, COPD, hypertension, recently diagnosed atrial fibrillation (on Eliquis) and known lung nodule for 20 years. He was scheduled for bronchoscopy in February, but was noted to have new atrial fibrillation at the time of the procedure, so it was deferred. Since that time, he has had worsening symptoms, including dyspnea on minimal exertion and with laying flat (he reports that he now has to sleep upright) and cough with occasional hemoptysis . He presents with worsening dyspnea and new upper extremity edema. He is referred for suspicion of possible SVC syndrome. CT imaging shows large central right upper lobe mass causing narrowing of SVC. Marked narrowing of distal SVC. tissue diagnosis over the week currently stable tissue diagnosis--- bronchoscopy versus CT guided On lovenox for anticoagulation for afib discussed with pulmonary team
--- NOTE | 2018-04-09 16:34 | CON.ID ---
Consult Consult Specialty:: infectious disease Referred by:: dr esteban (oncology) Reason for Consultation:: possible pneumonia - History of Present Illness Chief Complaint: right arm swelling. worsening sob History of Present Illness: originally had bronch planned in February but developed afib requiring cardiology evaluation 2 weeks of progressive right arm swelling- sent to ED by cardiology no fevers minimal hemoptysis +9 pound weight gain chest ct with large RUL mass with associated RUL atelectasis, narrowed distal svc withut complete occlusion he is on lovenox feels a bit better today - History Source History Provided By: Patient, Medical Record - Past Medical History Cardio/Vascular: Yes: AFIB, HTN, Other (smoker with lung mass) Pulmonary: Yes: COPD - Alcohol/Substance Use Hx Alcohol Use: No - Smoking History Smoking history: Current every day smoker Have you smoked in the past 12 months: Yes Aproximately how many cigarettes per day: 5 - Social History Usual Living Arrangement: Alone ADL: Independent History of Recent Travel: No Home Medications - Allergies Allergies/Adverse Reactions: Allergies Allergy/AdvReac Type Severity Reaction Status Date / Time No Known Allergies Allergy Verified 04/07/18 10:50 - Home Medications Home Medications: Ambulatory Orders Albuterol Sulfate [Proventil HFA Inhaler -] 1 - 2 inh PO QID 02/22/18 Tiotropium Br/Olodaterol HCl [Stiolto Respimat Inhal [place]] 4 gm IH DAILY Apixaban [Eliquis] 5 mg PO BID 04/07/18 Metoprolol Succinate [Toprol Xl] 50 mg PO BID 04/07/18 Oxycodone HCl/Acetaminophen [Oxycodone-Acetaminophen 10-325] 1 each PO Q4H PRN 04/07/18 Family Disease History - Family Disease History Family History: Unremarkable Review of Systems - Review of Systems Constitutional: reports: No Symptoms. denies: Chills, Fever, Night Sweats Eyes: reports: No Symptoms HENT: reports: No Symptoms Cardiovascular: denies: Chest Pain Respiratory: reports: Cough, Hemoptysis Gastrointestinal: reports: No Symptoms Genitourinary: reports: No Symptoms Physical Exam Vital Signs: Vital Signs Temperature 98.6 F 04/09/18 14:00 Pulse Rate 102 H 04/09/18 14:00 Respiratory Rate 20 04/09/18 14:00 Blood Pressure 109/70 04/09/18 14:00 O2 Sat by Pulse Oximetry (%) 94 L 04/09/18 09:00 Constitutional: Yes: Well Nourished, No Distress Eyes: Yes: Conjunctiva Clear HENT: Yes: Atraumatic, Normocephalic Neck: Yes: Supple Cardiovascular: Yes: Regular Rate and Rhythm Respiratory: Yes: Diminished (right lung), Other (decreased bs right lung) Gastrointestinal: Yes: Normal Bowel Sounds, Soft ...Rectal Exam: Yes: Deferred Edema: Yes Edema: RUE: 2+ Psychiatric: Yes: Alert, Oriented Labs: CBC, BMP 04/08/18 05:30 04/08/18 05:30 Imaging - Results Chest X-ray: Report Reviewed Cat Scan: Report Reviewed Assessment/Plan rul lung mass with adjacent atelctasis partial occlusion distal svc afib- per cardiology management of svc syndrome per oncology/pulmonary no need for antibiotics at this time thanks
--- NOTE | 2018-04-09 16:49 | EKG ---
Test Reason : Blood Pressure : / mmHG Vent. Rate : 105 BPM Atrial Rate : 105 BPM P-R Int : 160 ms QRS Dur : 078 ms QT Int : 342 ms P-R-T Axes : 055 -28 011 degrees QTc Int : 452 ms SINUS TACHYCARDIA WITH OCCASIONAL PREMATURE VENTRICULAR COMPLEXES OTHERWISE NORMAL ECG WHEN COMPARED WITH ECG OF 07-APR-2018 12:17, PREMATURE VENTRICULAR COMPLEXES ARE NOW PRESENT CLINICAL CORRELATION IS RECOMMENDED Confirmed by GIULIANA BENITEZ, [place] ([id number]) on 04/09/2018 4:49:20 PM Referred By: Sonja GRACIA Confirmed By:[place] GIORDANO MD
[2018-04-09] MEDS ORDERED: PIPERACILLIN/TAZOB 4.5 GM 4.5 GM in DEXTROSE 5%-WATER 100 ML IVPB SCH (18:00)
[2018-04-09] MEDS: ACETAMINOPHEN 325 MG TABLET (FP) PO PRN (21:11)
[2018-04-10 06:14] LABS: INR 1.16 (0.83-1.09); PROTHROMBIN TIME (PATIENT) 13.7 SEC (9.7-13.0)
[2018-04-10 06:16] LABS: ACTIVATED PTT 32.2 SECONDS (25.2-36.5)
--- NOTE | 2018-04-10 08:01 | PN ---
Progress Note (short form) - Note Progress Note: Chief Complaint: Events noted, notes reviewed, dyspnea improved, denies any chest pain, currently in sinus rhythm, paroxysmal atrial flutter/atrial fibrillation noted History of Present Illness: Seen and examined on telemetry. Events noted, notes reviewed, dyspnea improved, denies any chest pain, currently in sinus rhythm, paroxysmal atrial flutter/ atrial fibrillation noted 02/22/2018 Holter Monitor: SR with paroxysmal atrial fibrillation/atrial flutter with aberrant conduction (RBBB morphology) 5.44% of time, frequent PAC's , PVC's 12/22/2017 Large irregular cavitary soft tissue mass involving right superior mediastinum in right to mid and superior hilar region suspicious for primary or secondary malignancy 04/07/2018 Large central RUL mass with invasion of mediastinum and adjacent consolidation/ATX RUL, distal SVC stenosis without obstruction with collateralization 03/11/2018 Echocardiography: Normal LV and RV size and fxn with abnl LV compliance, mildly dilated ascending aorta, mild MR, TR. tr CT 03/29/2018 MPI study: Negative maximal stress test for ischemia, LVEF 60% Medications: Current Medications Acetaminophen (Tylenol -) 650 mg PO Q6H PRN PRN Reason: PAIN OR FEVER Last Admin: 04/09/18 21:11 Dose: 650 mg Diltiazem HCl (Cardizem Cd -) 120 mg PO DAILY [facility] Last Admin: 04/09/18 10:03 Dose: 120 mg Enoxaparin Sodium (Lovenox -) 100 mg SQ BID [facility] Last Admin: 04/09/18 21:05 Dose: 100 mg Sotalol HCl (Betapace -) 80 mg PO BID [facility] Last Admin: 04/09/18 21:04 Dose: 80 mg Tiotropium [place] (Spiriva Respimat) 2 puff IH DAILY [facility] Last Admin: 04/09/18 10:05 Dose: 2 puff Review of Systems - Review of Systems Constitutional: no symptoms reported Respiratory: reports Cough Cardiovascular: as noted above Gastrointestinal: denies Nausea, Vomiting, Diarrhea, Constipation or Abdominal Pain Genitourinary: no symptoms reported Musculoskeletal: no symptoms reported Endocrine: no symptoms reported Vital Signs: Last Vital Signs Temp Pulse Resp BP Pulse Ox 98.3 F 91 H 18 123/92 94 L 04/10/18 05:00 04/10/18 05:00 04/10/18 05:00 04/10/18 05:00 04/09/18 19:50 Intake & Output 04/07/18 04/08/18 04/09/18 04/10/18 23:59 23:59 23:59 23:59 Intake Total 0 340 480 120 Balance 0 340 480 120 Weight 192 lb 6.4 oz Neck: Supple Negative JVD Respiratory: Bilateral Scattered Rhonchi Cardiovascular: S1 S2 Regular Rate and Rhythm Gastrointestinal: Soft Benign Normal Bowel Sounds Ext: Negative Edema Labs: CBC, BMP 04/08/18 05:30 04/08/18 05:30 Hepatic Panel Total Bilirubin 0.5 mg/dL (0.2-1) 04/08/18 05:30 AST 11 U/L (15-37) L 04/08/18 05:30 ALT 17 U/L (13-61) 04/08/18 05:30 Alkaline Phosphatase 72 U/L (45-117) 04/08/18 05:30 Albumin 3.6 g/dl (3.4-5.0) 04/08/18 05:30 INR, PTT INR 1.16 (0.83-1.09) H 04/10/18 05:30 Assessment/Plan ASSESSMENT: 1. 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 RUL Lung Mass with hemoptysis, awaiting tissue biopsy planned for this coming week 3. COPD/Emphysema 4. Palpitations, Paroxysmal Atrial Fibrillation/paroxysmal atrial flutter [id number] score of 1 on anticoagulation, Eliquis bridging for procedure with Lovenox 5. Diastolic LV dysfunction with class 0 NYHA classification LV failure 6. HTN/HCVD 7. Hepatitis C post-treatment 8. Smoker PLAN: 1. Continue Lovenox bridging pending mass biopsy, this coming week 2. Continue Betapace with close monitoring of QTc interval, obtain EKG today and in AM 3. Continue Cardizem CD and titrate dosage as tolerated and as needed 4. No absolute contraindications in proceeding with planned procedure/mass biopsy Mary Lou Coffey M.D.
[2018-04-10] MEDS: SOTALOL HCL 80 MG TABLET (FP) PO SCH ×2 (09:18→21:23)
[2018-04-10] MEDS: TIOTROPIUM BROMIDE 2.5 MCG (SPIRIVA) RESPIMAT INHALER IH SCH (09:24)
[2018-04-10] MEDS: ENOXAPARIN NA (PORCINE) 100 MG/1 ML DISP.SYRIN SQ SCH ×2 (09:50→21:23)
--- NOTE | 2018-04-10 10:03 | PN ---
Progress Note (short form) - Note Progress Note: 62-year-old male with a history of cigarette smoking, COPD, hypertension, recently diagnosed atrial fibrillation (on Eliquis) and known lung nodule for 20 years. He was scheduled for bronchoscopy in February, but was noted to have new atrial fibrillation at the time of the procedure, so it was deferred. Since that time, he has had worsening symptoms, including dyspnea on minimal exertion and with laying flat (he reports that he now has to sleep upright) and cough with occasional hemoptysis . He presents with worsening dyspnea and new upper extremity edema. He is referred for suspicion of possible SVC syndrome.per patient he has gained 9 pounds with increase in upper arms and face swelling He feels his swelling has decreased and is doing better. His SOB has improved Vital Signs Period Temp Pulse Resp BP Sys/Gtz Pulse Ox Last 24 Hr 98 F-98.8 F 77-104 18-20 109-123/64-92 94-96 face looks near normal at this time. His swellnig in the chest has decreased ex. --no cyanosis/clubbung/edema CBC, BMP 04/08/18 05:30 04/08/18 05:30 Current Medications Generic Name Dose Route Start Last Admin Trade Name Freq PRN Reason Stop Dose Admin Acetaminophen 650 mg 04/09/18 12:59 04/09/18 21:11 Tylenol - PO 650 mg Q6H PRN Administration PAIN OR FEVER Diltiazem HCl 180 mg 04/10/18 10:00 Cardizem Cd - PO DAILY ALONDRA Enoxaparin Sodium 100 mg 04/08/18 12:15 04/10/18 09:50 Lovenox - SQ 100 mg BID ALONDRA Administration Sotalol HCl 80 mg 04/08/18 19:00 04/10/18 09:18 Betapace - PO 80 mg BID ALONDRA Administration Tiotropium [place] 2 puff 04/08/18 10:00 04/10/18 09:24 Spiriva Respimat IH 2 puff DAILY ALONDRA Administration A/P 62-year-old male with a history of cigarette smoking, COPD, hypertension, recently diagnosed atrial fibrillation (on Eliquis) and known lung nodule for 20 years. He was scheduled for bronchoscopy in February, but was noted to have new atrial fibrillation at the time of the procedure, so it was deferred. Since that time, he has had worsening symptoms, including dyspnea on minimal exertion and with laying flat (he reports that he now has to sleep upright) and cough with occasional hemoptysis . He presents with worsening dyspnea and new upper extremity edema. He is referred for suspicion of possible SVC syndrome. CT imaging shows large central right upper lobe mass causing narrowing of SVC. Marked narrowing of distal SVC. tissue diagnosis over the week currently stable tissue diagnosis--- bronchoscopy versus CT guided On lovenox for anticoagulation for afib He wants to go home after his biopsy for a day and return. He has a who is dependent on him for all her needs, he has to pay his rent and get her food. He wishes to go in the morning and come back in the evening. I think this can be arranged provided he is stable.He understands the risks and he also relaises that he can ask a friend to accompany him during the day .
--- NOTE | 2018-04-10 10:34 | PN ---
Progress Note (short form) - Note Progress Note: Progress Note: Breathing feels a little better. Reports "chest fullness". feels the left side of his face is slightly more swollen today. CTS evaluation has been called. Lovenox 100mg BID ordered. Vital Signs Temp 98.3 F 04/10/18 05:00 Pulse 91 H 04/10/18 05:00 Resp 18 04/10/18 05:00 BP 123/92 04/10/18 05:00 Pulse Ox 96 04/10/18 08:26 Intake & Output 04/09/18 04/09/18 04/10/18 11:59 23:59 11:59 Intake Total 240 240 120 Balance 240 240 120 Intake: IVPB 0 Oral 240 240 120 Other: Voiding Method Toilet Toilet # Unmeasured Voids Void 3 2 Bowel Movement No Active Medications Acetaminophen (Tylenol -) 650 mg PO Q6H PRN PRN Reason: PAIN OR FEVER Last Admin: 04/09/18 21:11 Dose: 650 mg Diltiazem HCl (Cardizem Cd -) 180 mg PO DAILY [facility] Enoxaparin Sodium (Lovenox -) 100 mg SQ BID [facility] Last Admin: 04/10/18 09:50 Dose: 100 mg Sotalol HCl (Betapace -) 80 mg PO BID [facility] Last Admin: 04/10/18 09:18 Dose: 80 mg Tiotropium [place] (Spiriva Respimat) 2 puff IH DAILY [facility] Last Admin: 04/10/18 09:24 Dose: 2 puff Constitutional: Yes: NAD Eyes: Yes: Conjunctiva Clear, EOM Intact HENT: Yes: Atraumatic, trach midline Neck: Yes: +JVD Cardiovascular: Yes: Regular Rate and Rhythm Respiratory: Yes: Diminished , R lung field with few high pitched inspiratory sounds , tachypnea with movement ...Clubbing: Yes Gastrointestinal: soft, NT ND, eating well Edema: improved UE swelling Labs: Laboratory Results - last 24 hr 04/10/18 05:30 PT with INR 13.70 H INR 1.16 H PTT ([place] FS) 32.2 Problem List - Problems (1) SVC syndrome Code(s): I87.1 - COMPRESSION OF VEIN (2) COPD (chronic obstructive pulmonary disease) Code(s): J44.9 - CHRONIC OBSTRUCTIVE PULMONARY DISEASE, UNSPECIFIED (3) Hemoptysis Code(s): R04.2 - HEMOPTYSIS (4) Lung mass Code(s): R91.8 - OTHER NONSPECIFIC ABNORMAL FINDING OF LUNG FIELD (5) Smoker Code(s): F17.200 - NICOTINE DEPENDENCE, UNSPECIFIED, UNCOMPLICATED (6) Paroxysmal atrial fibrillation Code(s): I48.0 - PAROXYSMAL ATRIAL FIBRILLATION Assessment/Plan SVC Syndrome due to Lung Mass COPD Emphysema Hemoptysis Paroxysmal Atrial Fibrillation on anticoagulation Smoker - CTS evaluation has been called, timing of vasc stent/biopsy remains unclear ( ?consideration of Tertiary Care) - Lovenox BID, closely monitor for hemoptysis - Rate control with BB/CCB - Inhaled bronchodilators - smoking cessation discussed - Monitor UE/chest edema, pt reports improved - Tele monitoring - Full Code Blanche ACNP [id number] For Pulm service
--- NOTE | 2018-04-10 11:28 | PN ---
Progress Note (short form) - Note Progress Note: no complaints some right shoulder pain no fevers or chills one episode of hemoptysis this am Vital Signs Period Temp Pulse Resp BP Sys/Gtz Pulse Ox Last 24 Hr 98.3 F-98.8 F 77-102 16-20 106-123/64-92 94-96 cor-rrr lungs decreased bs right lung abd soft,nt ext less edema of the right arm CBC, BMP 04/08/18 05:30 04/08/18 05:30 Microbiology 04/09/18 10:20 Sputum - Expectorated Gram Stain - Final 04/09/18 10:20 Sputum - Expectorated Sputum Culture - Preliminary Proteus Species 04/09/18 10:20 Urine - Urine Clean Catch Urine Culture - Final NO GROWTH OBTAINED 04/09/18 08:30 Blood - Peripheral Venous Blood Culture - Preliminary NO GROWTH OBTAINED AFTER 24 HOURS, INCUBATION TO CONTINUE FOR 4 DAYS. 04/09/18 08:20 Blood - Peripheral Venous Blood Culture - Preliminary NO GROWTH OBTAINED AFTER 24 HOURS, INCUBATION TO CONTINUE FOR 4 DAYS. a/p rul lung mass with associated atelectasis svc syndrome afib observe off antibiotics would repeat labs f/u per pulmonary/oncology/cardiology please call back if needed
--- NOTE | 2018-04-10 12:13 | PN ---
Progress Note, Physician Chief Complaint: SCHEDULED FOR LUNG BIOPSY TOMOROW AWAKE ALERT NAD - Current Medication List Current Medications: Active Medications Acetaminophen (Tylenol -) 650 mg PO Q6H PRN PRN Reason: PAIN OR FEVER Last Admin: 04/09/18 21:11 Dose: 650 mg Diltiazem HCl (Cardizem Cd -) 180 mg PO DAILY [facility] Last Admin: 04/10/18 11:24 Dose: 180 mg Enoxaparin Sodium (Lovenox -) 100 mg SQ BID [facility] Last Admin: 04/10/18 09:50 Dose: 100 mg Sotalol HCl (Betapace -) 80 mg PO BID [facility] Last Admin: 04/10/18 09:18 Dose: 80 mg Tiotropium [place] (Spiriva Respimat) 2 puff IH DAILY [facility] Last Admin: 04/10/18 09:24 Dose: 2 puff - Objective Vital Signs: Vital Signs Temperature 98.3 F 04/10/18 05:00 Pulse Rate 85 04/10/18 09:00 Respiratory Rate 16 04/10/18 09:00 Blood Pressure 106/87 04/10/18 09:00 O2 Sat by Pulse Oximetry (%) 96 04/10/18 08:26 Constitutional: Yes: No Distress Eyes: Yes: WNL HENT: Yes: WNL Neck: Yes: WNL Cardiovascular: Yes: WNL Respiratory: Yes: Diminished Gastrointestinal: Yes: WNL Genitourinary: Yes: WNL Musculoskeletal: Yes: WNL Extremities: Yes: WNL Edema: No Integumentary: Yes: WNL Wound/Incision: Yes: Clean/Dry Neurological: Yes: WNL ...Motor Strength: WNL Psychiatric: Yes: WNL Labs: CBC, BMP 04/08/18 05:30 04/08/18 05:30 INR, PTT INR 1.16 (0.83-1.09) H 04/10/18 05:30 Problem List - Problems (1) Afib Code(s): I48.91 - UNSPECIFIED ATRIAL FIBRILLATION (2) COPD (chronic obstructive pulmonary disease) Code(s): J44.9 - CHRONIC OBSTRUCTIVE PULMONARY DISEASE, UNSPECIFIED Qualifiers: COPD type: unspecified COPD Qualified Code(s): J44.9 - Chronic obstructive pulmonary disease, unspecified (3) Dyspnea Code(s): R06.00 - DYSPNEA, UNSPECIFIED Qualifiers: Dyspnea type: dyspnea on exertion Qualified Code(s): R06.09 - Other forms of dyspnea (4) Hemoptysis Code(s): R04.2 - HEMOPTYSIS (5) Lung mass Code(s): R91.8 - OTHER NONSPECIFIC ABNORMAL FINDING OF LUNG FIELD (6) Paroxysmal atrial fibrillation Code(s): I48.0 - PAROXYSMAL ATRIAL FIBRILLATION (7) SVC syndrome Code(s): I87.1 - COMPRESSION OF VEIN (8) Smoker Code(s): F17.200 - NICOTINE DEPENDENCE, UNSPECIFIED, UNCOMPLICATED Assessment/Plan SUBSTANCE ABUSE HISTORY D/W PATIENT SMOKING CESSATION D/W PATIENT SVC SYNDROME, WILL NEED IR TO PLACE STENT D/W DR SEBASTIAN, STENT MAY NOT BE NECESSARY IF DX IS SMALL CELL CA WILL DECIDE THIS WEEK WHEN PATHOLOGY RETURNS OOB TO CHAIR LUNG BIOPSY TOMORROW 02 SUPPORT
[2018-04-10] MEDS ORDERED: PT OWN MED DRAWER 7, Y5N ONE (21:22)
[2018-04-10] MEDS: ACETAMINOPHEN 325 MG TABLET (FP) PO PRN (21:30)
[2018-04-11] MEDS: ACETAMINOPHEN 325 MG TABLET (FP) PO PRN (03:48)
[2018-04-11 07:16] LABS: ALBUMIN 3.3 g/dl (3.4-5.0); ALK PHOS 64 U/L (45-117); ANION GAP 8 MMOL/L (8-16); BILIRUBIN,TOTAL 0.5 mg/dL (0.2-1); BLOOD UREA NITROGEN 11 mg/dL (7-18); CALCIUM 9.3 mg/dL (8.5-10.1); CHLORIDE 102 mmol/L (98-107); CO2 26 mmol/L (21-32); CREATININE 0.8 mg/dL (0.55-1.3); GLUCOSE,RANDOM 90 mg/dL (74-106); POTASSIUM 4.2 mmol/L (3.5-5.1); SGOT/AST 14 U/L (15-37); SGPT/ALT 17 U/L (13-61); SODIUM 136 mmol/L (136-145); TOT PROT 7.3 g/dl (6.4-8.2)
[2018-04-11 07:33] LABS: BASO % 0.7 % (0-2.0); EOS % 3.9 % (0-4.5); HEMATOCRIT 42.4 % (35.4-49); HEMOGLOBIN 14.1 GM/dL (11.7-16.9); LYMPH % 31.7 % (8-40); MCH 30.6 pg (25.7-33.7); MCHC 33.2 g/dl (32.0-35.9); MEAN CELL VOLUME 92.3 fl (80-96); MEAN PLT VOLUME 7.6 fl (7.5-11.1); MONO % 11.7 % (3.8-10.2); PLATELET COUNT 203 K/MM3 (134-434); RBC 4.59 M/mm3 (4.00-5.60); WHITE BLOOD COUNT 4.9 K/mm3 (4.0-10.0)
[2018-04-11 08:09] LABS: INR 1.18 (0.83-1.09); PROTHROMBIN TIME (PATIENT) 13.9 SEC (9.7-13.0)
--- NOTE | 2018-04-11 09:03 | PN ---
Progress Note, Physician - Current Medication List Current Medications: Active Medications Acetaminophen (Tylenol -) 650 mg PO Q6H PRN PRN Reason: PAIN OR FEVER Last Admin: 04/11/18 03:48 Dose: 650 mg Diltiazem HCl (Cardizem Cd -) 180 mg PO DAILY [facility] Last Admin: 04/10/18 11:24 Dose: 180 mg Enoxaparin Sodium (Lovenox -) 100 mg SQ BID [facility] Last Admin: 04/10/18 21:23 Dose: 100 mg Sotalol HCl (Betapace -) 80 mg PO BID [facility] Last Admin: 04/10/18 21:23 Dose: 80 mg Tiotropium [place] (Spiriva Respimat) 2 puff IH DAILY [facility] Last Admin: 04/10/18 09:24 Dose: 2 puff - Objective Vital Signs: Vital Signs Temperature 98.4 F 04/11/18 05:00 Pulse Rate 83 04/11/18 05:00 Respiratory Rate 18 04/11/18 05:00 Blood Pressure 102/76 04/11/18 05:00 O2 Sat by Pulse Oximetry (%) 96 04/10/18 21:00 Cardiovascular: Yes: S1, S2 Respiratory: Yes: Diminished Gastrointestinal: Yes: Normal Bowel Sounds, Soft Labs: CBC, BMP 04/11/18 05:30 04/11/18 05:30 INR, PTT INR 1.18 (0.83-1.09) H 04/11/18 05:30 Fibrinogen > 500.0 mg/dL (238-498) H 04/10/18 13:15 Problem List - Problems (1) Lung mass Assessment/Plan: Biopsy today bronchodilators oxygen therapy Code(s): R91.8 - OTHER NONSPECIFIC ABNORMAL FINDING OF LUNG FIELD (2) Dyspnea Assessment/Plan: ct scan of chest noted TS to further evaluate the lung mass cardio and pulm eval noted dvt ppx Code(s): R06.00 - DYSPNEA, UNSPECIFIED Qualifiers: Dyspnea type: dyspnea on exertion Qualified Code(s): R06.09 - Other forms of dyspnea (3) Afib Assessment/Plan: metoprolol eliquis on hold for biopsy Code(s): I48.91 - UNSPECIFIED ATRIAL FIBRILLATION (4) COPD (chronic obstructive pulmonary disease) Assessment/Plan: oxygen bronchodilators Code(s): J44.9 - CHRONIC OBSTRUCTIVE PULMONARY DISEASE, UNSPECIFIED Qualifiers: COPD type: unspecified COPD Qualified Code(s): J44.9 - Chronic obstructive pulmonary disease, unspecified (5) SVC syndrome Assessment/Plan: Pulm on board TS consult Code(s): I87.1 - COMPRESSION OF VEIN
--- NOTE | 2018-04-11 09:07 | CONSULT ---
Consult Consult Specialty:: Thoracic Surgery Referred by:: Dr. Veliz Reason for Consultation:: Lung mass - History of Present Illness Chief Complaint: PICKETT and RUE swelling History of Present Illness: 62M active smoker with COPD, HTN, p/w pickett and afib x 1 month while awaiting lung biopsy. Also has hemoptysis. Now presents to ED with weight gain, facial swelling, and RUE swelling. CT shows RUL mass obstructing SVC c/w SVC syndrome. - History Source History Provided By: Patient, Medical Record Limitations to Obtaining History: No Limitations - Past Medical History Cardio/Vascular: Yes: AFIB, HTN, Other (smoker with lung mass) Pulmonary: Yes: COPD - Past Surgical History Past Surgical History: Yes: Cholecystectomy, Hernia Repair - Alcohol/Substance Use Hx Alcohol Use: No - Smoking History Smoking history: Current every day smoker Have you smoked in the past 12 months: Yes Aproximately how many cigarettes per day: 5 - Social History Usual Living Arrangement: Alone ADL: Independent History of Recent Travel: No Home Medications - Allergies Allergies/Adverse Reactions: Allergies Allergy/AdvReac Type Severity Reaction Status Date / Time No Known Allergies Allergy Verified 04/07/18 10:50 - Home Medications Home Medications: Ambulatory Orders Albuterol Sulfate [Proventil HFA Inhaler -] 1 - 2 inh PO QID 02/22/18 Tiotropium Br/Olodaterol HCl [Stiolto Respimat Inhal [place]] 4 gm IH DAILY Apixaban [Eliquis] 5 mg PO BID 04/07/18 Metoprolol Succinate [Toprol Xl] 50 mg PO BID 04/07/18 Oxycodone HCl/Acetaminophen [Oxycodone-Acetaminophen 10-325] 1 each PO Q4H PRN 04/07/18 Family Disease History - Family Disease History Family History: Unremarkable Family Disease History: Diabetes: Brother ( with lung cancer) Other Family History: Father and Mother alive in s. Review of Systems - Review of Systems Constitutional: reports: Malaise, Weakness HENT: reports: No Symptoms Neck: reports: No Symptoms Cardiovascular: reports: Shortness of Breath Respiratory: reports: SOB on Exertion Gastrointestinal: reports: No Symptoms Physical Exam Vital Signs: Vital Signs Temperature 98.4 F 04/11/18 05:00 Pulse Rate 83 04/11/18 05:00 Respiratory Rate 18 04/11/18 05:00 Blood Pressure 102/76 04/11/18 05:00 O2 Sat by Pulse Oximetry (%) 96 04/10/18 21:00 Constitutional: Yes: Well Nourished Eyes: Yes: WNL HENT: Yes: WNL Neck: Yes: WNL Cardiovascular: Yes: Pulse Irregular Respiratory: Yes: CTA Bilaterally Edema: Yes (slight RUE edema) Labs: CBC, BMP 04/11/18 05:30 04/11/18 05:30 Imaging - Results Cat Scan: Image Reviewed (c/w SVC syndrome due RUL tumor), Other Problem List - Problems (1) Afib Code(s): I48.91 - UNSPECIFIED ATRIAL FIBRILLATION (2) COPD (chronic obstructive pulmonary disease) Code(s): J44.9 - CHRONIC OBSTRUCTIVE PULMONARY DISEASE, UNSPECIFIED Qualifiers: COPD type: unspecified COPD Qualified Code(s): J44.9 - Chronic obstructive pulmonary disease, unspecified (3) Dyspnea Code(s): R06.00 - DYSPNEA, UNSPECIFIED Qualifiers: Dyspnea type: dyspnea on exertion Qualified Code(s): R06.09 - Other forms of dyspnea (4) Hemoptysis Code(s): R04.2 - HEMOPTYSIS (5) Lung mass Code(s): R91.8 - OTHER NONSPECIFIC ABNORMAL FINDING OF LUNG FIELD (6) Paroxysmal atrial fibrillation Code(s): I48.0 - PAROXYSMAL ATRIAL FIBRILLATION (7) SVC syndrome Code(s): I87.1 - COMPRESSION OF VEIN (8) Smoker Code(s): F17.200 - NICOTINE DEPENDENCE, UNSPECIFIED, UNCOMPLICATED Assessment/Plan 62M active smoker with Lung mass and SVC syndrome: For bx today. Recommend radiation oncology consult. OK to start while awaiting biopsy results. Should get PET scan and brain MR if not already done.
[2018-04-11] MEDS: ENOXAPARIN NA (PORCINE) 100 MG/1 ML DISP.SYRIN SQ SCH (09:45)
[2018-04-11] MEDS: SOTALOL HCL 80 MG TABLET (FP) PO SCH ×2 (09:45→21:45)
[2018-04-11] MEDS: TIOTROPIUM BROMIDE 2.5 MCG (SPIRIVA) RESPIMAT INHALER IH SCH (09:49)
--- NOTE | 2018-04-11 10:46 | EKG ---
Test Reason : Blood Pressure : / mmHG Vent. Rate : 096 BPM Atrial Rate : 096 BPM P-R Int : 164 ms QRS Dur : 080 ms QT Int : 322 ms P-R-T Axes : 047 -34 033 degrees QTc Int : 406 ms SINUS RHYTHM WITH PREMATURE SUPRAVENTRICULAR COMPLEXES LEFT AXIS DEVIATION ABNORMAL ECG WHEN COMPARED WITH ECG OF 10-APR-2018 09:21, VENT. RATE HAS DECREASED BY 62 BPM Confirmed by ISELA BENITEZ, ESMER ([id number]) on 04/11/2018 10:46:06 AM Referred By: Sonja GRACIA Confirmed By:ESMER WEISS MD
--- NOTE | 2018-04-11 11:02 | EKG ---
Test Reason : Blood Pressure : / mmHG Vent. Rate : 158 BPM Atrial Rate : 129 BPM P-R Int : 000 ms QRS Dur : 072 ms QT Int : 310 ms P-R-T Axes : 000 -08 036 degrees QTc Int : 502 ms ATRIAL FIBRILLATION WITH RAPID VENTRICULAR RESPONSE NONSPECIFIC ST ABNORMALITY ABNORMAL ECG WHEN COMPARED WITH ECG OF 09-APR-2018 09:27, PROBABLE RHYTHM CHANGE VENT. RATE HAS INCREASED BY 53 BPM Confirmed by ISELA BENITEZ, ESMER ([id number]) on 04/11/2018 11:01:48 AM Referred By: Sonja GRACIA Confirmed By:ESMER WEISS MD
--- NOTE | 2018-04-11 11:46 | PN ---
Physical Exam: SUBJECTIVE: Patient seen and examined at bedside. No overnight events. No new complaints. Arm swelling has improved. Feels well overall. Denies CP, MACKEY, SOB, abdominal pain, nausea or vomiting. OBJECTIVE: Vital Signs Period Temp Pulse Resp BP Sys/Gtz Pulse Ox Last 24 Hr 98.0 F-98.4 F 71-91 15-23 102-119/59-90 96 GENERAL: AAOx3, NAD HEAD: NCAT EYES: PERRLA, EOMI, sclera anicteric, conjunctiva clear. No lid lag. EARS, NOSE, THROAT: Moist mucous membranes. NECK: Normal range of motion, supple with decreased swelling on right face. LUNGS: decreased breath sounds bilaterally, scattered rhonchi> R. No accessory muscle use. HEART: RRR, normal S1 and S2 without murmur, rub or gallop. ABDOMEN: Soft, NTND,NABS, no guarding, no rebound, no masses. No hepatomegaly or splenomegaly. MUSCULOSKELETAL: Normal range of motion at all joints. No bony deformities or tenderness. No CVA tenderness. UPPER EXTREMITIES: 2+ pulses, warm, well-perfused. No cyanosis. No clubbing. R arm edema improved. LOWER EXTREMITIES: 2+ pulses, warm, well-perfused. No calf tenderness. No peripheral edema. NEUROLOGICAL: Cranial nerves II-XII intact. Normal speech.gait not observed. PSYCHIATRIC: Cooperative. Good eye contact. Appropriate mood and affect. SKIN: Warm, dry, normal turgor, no rashes or lesions noted. Laboratory Results - last 24 hr 04/10/18 04/11/18 04/11/18 13:15 05:30 05:30 WBC 4.9 RBC 4.59 Hgb 14.1 Hct 42.4 MCV 92.3 MCH 30.6 MCHC 33.2 RDW 15.0 Plt Count 203 MPV 7.6 Absolute Neuts (auto) 2.5 Neutrophils % 52.0 Lymphocytes % 31.7 Monocytes % 11.7 H Eosinophils % 3.9 Basophils % 0.7 Nucleated RBC % 0 PT with INR INR Fibrinogen > 500.0 H Sodium 136 Potassium 4.2 Chloride 102 Carbon Dioxide 26 Anion Gap 8 BUN 11 Creatinine 0.8 Creat Clearance w eGFR > 60 Random Glucose 90 Calcium 9.3 Total Bilirubin 0.5 AST 14 L ALT 17 Alkaline Phosphatase 64 Total Protein 7.3 Albumin 3.3 L 04/11/18 05:30 WBC RBC Hgb Hct MCV MCH MCHC RDW Plt Count MPV Absolute Neuts (auto) Neutrophils % Lymphocytes % Monocytes % Eosinophils % Basophils % Nucleated RBC % PT with INR 13.90 H INR 1.18 H Fibrinogen Sodium Potassium Chloride Carbon Dioxide Anion Gap BUN Creatinine Creat Clearance w eGFR Random Glucose Calcium Total Bilirubin AST ALT Alkaline Phosphatase Total Protein Albumin Active Medications Generic Name Dose Route Start Last Admin Trade Name Freq PRN Reason Stop Dose Admin Acetaminophen 650 mg 04/09/18 12:59 04/11/18 03:48 Tylenol - PO 650 mg Q6H PRN Administration PAIN OR FEVER Diltiazem HCl 180 mg 04/10/18 10:00 04/11/18 09:45 Cardizem Cd - PO 180 mg DAILY ALONDRA Administration Sotalol HCl 80 mg 04/08/18 19:00 04/11/18 09:45 Betapace - PO 80 mg BID ALONDRA Administration Tiotropium [place] 2 puff 04/08/18 10:00 04/11/18 09:49 Spiriva Respimat IH 2 puff DAILY ALONDRA Administration IMAGING: * CT/CHEST CT WITH CONTRASTHISTORY PROVIDED: Rule out SVC syndrome. Sequential axial images were obtained from the thoracic inlet through the domes of the diaphragm following the administration of intravenous contrast material. This study is a follow-up to an examination of earlier in the day which was performed without the use of intravenous contrast. Evaluation of the SVC demonstrates marked narrowing of the distal cava by a large central right upper lobe mass as it empties into the right atrium. The SVC is not completely occluded, however. Collateral venous channels are noted within the right chest wall and base of the neck. No additional changes have occurred within the chest since the prior study. IMPRESSION: Marked narrowing of the distal SVC without complete occlusion. Collateral venous channels identified within the right chest wall and base of the neck. Clinical correlation is advised. Please see above discussion. 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 Admitted for possible SVC syndrome. Problem List - Problems (1) Lung mass Assessment/Plan: Scheduled for biopsy tomorrow with IR. * Lovenox held for procedure * Rad/Onc on board for possible radiation once tissue diagnosis made. * CT surgery on [facility]. * Further Recs pending biopsy results. (2) SVC syndrome Assessment/Plan: At this time breathing is not compromised * Will continue to monitor. * Edema has impoved. * minimal O2 requirements. goods sats on 2L NC * AC held for procedure tomorrow. (3) COPD (chronic obstructive pulmonary disease) Assessment/Plan: * Supplemental O2 PRN * maintain SpO2 >90% * Tiotropium [place] (Spiriva Respimat) 2 puff IH DAILY Visit type - Emergency Visit Emergency Visit: Yes ED Registration Date: 04/07/18 Care time: The patient presented to the Emergency Department on the above date and was hospitalized for further evaluation of their emergent condition. - New Patient This patient is new to me today: No - Critical Care Critical Care patient: No
--- NOTE | 2018-04-11 11:59 | PN ---
Progress Note, Physician History of Present Illness: Episodes of rapid afib over weekend, Cardizem CD added, await lung mass biopsy. - Current Medication List Current Medications: Active Medications Acetaminophen (Tylenol -) 650 mg PO Q6H PRN PRN Reason: PAIN OR FEVER Last Admin: 04/11/18 03:48 Dose: 650 mg Diltiazem HCl (Cardizem Cd -) 180 mg PO DAILY [facility] Last Admin: 04/11/18 09:45 Dose: 180 mg Sotalol HCl (Betapace -) 80 mg PO BID [facility] Last Admin: 04/11/18 09:45 Dose: 80 mg Tiotropium [place] (Spiriva Respimat) 2 puff IH DAILY [facility] Last Admin: 04/11/18 09:49 Dose: 2 puff - Objective Vital Signs: Vital Signs Temperature 98.4 F 04/11/18 05:00 Pulse Rate 83 04/11/18 05:00 Respiratory Rate 18 04/11/18 05:00 Blood Pressure 102/76 04/11/18 05:00 O2 Sat by Pulse Oximetry (%) 96 04/10/18 21:00 Constitutional: Yes: No Distress, Calm Neck: Yes: Supple Cardiovascular: Yes: Regular Rate and Rhythm Respiratory: Yes: Regular, Diminished Gastrointestinal: Yes: Normal Bowel Sounds, Soft Edema: No Labs: CBC, BMP 04/11/18 05:30 04/11/18 05:30 INR, PTT INR 1.18 (0.83-1.09) H 04/11/18 05:30 Fibrinogen > 500.0 mg/dL (238-498) H 04/10/18 13:15 - ....Imaging EKG: Report Reviewed (Tele: PAF->SR) Problem List - Problems (1) COPD (chronic obstructive pulmonary disease) Code(s): J44.9 - CHRONIC OBSTRUCTIVE PULMONARY DISEASE, UNSPECIFIED Qualifiers: COPD type: unspecified COPD Qualified Code(s): J44.9 - Chronic obstructive pulmonary disease, unspecified (2) Dyspnea Code(s): R06.00 - DYSPNEA, UNSPECIFIED Qualifiers: Dyspnea type: dyspnea on exertion Qualified Code(s): R06.09 - Other forms of dyspnea (3) Hemoptysis Code(s): R04.2 - HEMOPTYSIS (4) Lung mass Code(s): R91.8 - OTHER NONSPECIFIC ABNORMAL FINDING OF LUNG FIELD (5) Paroxysmal atrial fibrillation Code(s): I48.0 - PAROXYSMAL ATRIAL FIBRILLATION (6) SVC syndrome Code(s): I87.1 - COMPRESSION OF VEIN (7) Smoker Code(s): F17.200 - NICOTINE DEPENDENCE, UNSPECIFIED, UNCOMPLICATED (8) Anticoagulant long-term use Code(s): 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) USE OF 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 Assessment/Plan 02/22/2018 Holter Monitor: SR with paroxysmal afib/flutter with aberrant conduction (RBBB morphology) 5.44% of time, frequent PAC, PVC 12/22/2017 Large irregular cavitary soft tissue mass involving right superior mediastinum in right to mid and superior hilar region suspicious for primary or secondary malignancy 04/07/2018 Large central RUL mass with invasion of mediastinum and adjacent consolidation/ATX RUL, distal SVC stenosis without obstruction with collateralization 03/11/2018 Echo: Normal LV and RV size and fxn with abnl LV compliance, mildly dilated ascending aorta, mild MR, TR. tr RI 03/29/2018 ETT Myoview: Negative maximal stress test for ischemia, LVEF 60% 1. SVC Syndrome 2. RUL Lung Mass with hemoptysis 3. COPD/Emphysema 4. Palpitations, Paroxysmal Atrial Fibrillation->SR [id number] on anticoagulation 5. Diastolic LV dysfunction with class 0 NYHA classification LV failure 6. HTN/HCVD 7. Hep C post-treatment 8. Smoker Plan: 1. Hold Eliquis for biopsy, bridge eliquis with lovenox prior to biopsy 2. Radiation oncology evaluation after biopsy, PET scan and brain MR if not already done. 3. Continue sotalol 80 bid, cardizem CD 180 qd 4. Inhaled bronchodilators, O2 as needed, smoking cessation 5. No absolute contraindications in proceeding with planned procedure/mass biopsy -
--- NOTE | 2018-04-11 14:15 | PN ---
Progress Note (short form) - Note Progress Note: Breathing feels a little better. Still with some "chest fullness". Intake & Output 04/08/18 04/09/18 04/10/18 04/11/18 23:59 23:59 23:59 23:59 Intake Total 340 480 520 400 Balance 340 480 520 400 Last Vital Signs Temp Pulse Resp BP Pulse Ox 98.7 F 86 18 99/61 97 04/11/18 13:32 04/11/18 13:32 04/11/18 13:32 04/11/18 13:32 04/11/18 09:00 Active Medications Acetaminophen (Tylenol -) 650 mg PO Q6H PRN PRN Reason: PAIN OR FEVER Last Admin: 04/11/18 03:48 Dose: 650 mg Diltiazem HCl (Cardizem Cd -) 180 mg PO DAILY [facility] Last Admin: 04/11/18 09:45 Dose: 180 mg Sotalol HCl (Betapace -) 80 mg PO BID [facility] Last Admin: 04/11/18 09:45 Dose: 80 mg Tiotropium [place] (Spiriva Respimat) 2 puff IH DAILY [facility] Last Admin: 04/11/18 09:49 Dose: 2 puff Constitutional: Yes: NAD Eyes: Yes: Conjunctiva Clear, EOM Intact HENT: Yes: Atraumatic Neck: Yes: (-) JVD, Right neck fullness Cardiovascular: Yes: Regular Rate and Rhythm Respiratory: Yes: Diminished (decreased breath sounds at the bases) ...Clubbing: Yes Gastrointestinal: Yes: Normal Bowel Sounds, Soft. No: Tenderness Edema: RUE swelling Labs: Laboratory Results - last 24 hr 04/10/18 04/11/18 04/11/18 13:15 05:30 05:30 WBC 4.9 RBC 4.59 Hgb 14.1 Hct 42.4 MCV 92.3 MCH 30.6 MCHC 33.2 RDW 15.0 Plt Count 203 MPV 7.6 Absolute Neuts (auto) 2.5 Neutrophils % 52.0 Lymphocytes % 31.7 Monocytes % 11.7 H Eosinophils % 3.9 Basophils % 0.7 Nucleated RBC % 0 PT with INR INR Fibrinogen > 500.0 H Sodium 136 Potassium 4.2 Chloride 102 Carbon Dioxide 26 Anion Gap 8 BUN 11 Creatinine 0.8 Creat Clearance w eGFR > 60 Random Glucose 90 Calcium 9.3 Total Bilirubin 0.5 AST 14 L ALT 17 Alkaline Phosphatase 64 Total Protein 7.3 Albumin 3.3 L 04/11/18 05:30 WBC RBC Hgb Hct MCV MCH MCHC RDW Plt Count MPV Absolute Neuts (auto) Neutrophils % Lymphocytes % Monocytes % Eosinophils % Basophils % Nucleated RBC % PT with INR 13.90 H INR 1.18 H Fibrinogen Sodium Potassium Chloride Carbon Dioxide Anion Gap BUN Creatinine Creat Clearance w eGFR Random Glucose Calcium Total Bilirubin AST ALT Alkaline Phosphatase Total Protein Albumin Problem List - Problems (1) SVC syndrome Code(s): I87.1 - COMPRESSION OF VEIN (2) COPD (chronic obstructive pulmonary disease) Code(s): J44.9 - CHRONIC OBSTRUCTIVE PULMONARY DISEASE, UNSPECIFIED (3) Hemoptysis Code(s): R04.2 - HEMOPTYSIS (4) Lung mass Code(s): R91.8 - OTHER NONSPECIFIC ABNORMAL FINDING OF LUNG FIELD (5) Smoker Code(s): F17.200 - NICOTINE DEPENDENCE, UNSPECIFIED, UNCOMPLICATED (6) Paroxysmal atrial fibrillation Code(s): I48.0 - PAROXYSMAL ATRIAL FIBRILLATION Assessment/Plan SVC Syndrome due to Lung Mass COPD Emphysema Hemoptysis Paroxysmal Atrial Fibrillation on anticoagulation Smoker - For Biopsy tomorrow AM - Lovenox was D/C for procedure (24 hours off) - Rate control - Inhaled bronchodilators - Monitor/quantify hemoptysis (none today) - smoking cessation discussed - Monitor UE/chest edema Dr Jean
--- NOTE | 2018-04-11 15:35 | EKG ---
Test Reason : Blood Pressure : / mmHG Vent. Rate : 072 BPM Atrial Rate : 072 BPM P-R Int : 174 ms QRS Dur : 082 ms QT Int : 402 ms P-R-T Axes : 055 -05 039 degrees QTc Int : 440 ms NORMAL SINUS RHYTHM NORMAL ECG WHEN COMPARED WITH ECG OF 10-APR-2018 09:22, PREMATURE SUPRAVENTRICULAR COMPLEXES ARE NO LONGER PRESENT Confirmed by ESMER WEISS MD ([id number]) on 04/11/2018 3:35:09 PM [facility] Confirmed By:ESMER WEISS MD
--- NOTE | 2018-04-11 17:52 | PN ---
Progress Note (short form) - Note Progress Note: Radiation Oncology consult Pt seen this AM, chart/films reviewed, full note to follow. 62 yo smoker w right lung mass awaiting bx, a/w PICKETT and right arm/neck/facial swelling 2/2 SVC compression by RUL mass, likely malignant. Clinically improving and being monitored closely in ICU while awaiting bx tomorrow. As pt is clinically stable (improving), would await tissue diagnosis before deciding on tx. Endovascular stent being considered by IR. RT on standby should pt clinically deteriorate. Staging w/u to be completed.
--- NOTE | 2018-04-11 19:50 | CONS ---
DATE OF CONSULTATION: 04/11/2018 REFERRING PHYSICIAN: Katelin Read MD REASON FOR CONSULTATION: SVC syndrome secondary to right lung mass. HISTORY OF PRESENT ILLNESS: The patient is a 62-year-old smoker with COPD and paroxysmal atrial fibrillation, who presented with a right lung mass. He was planned for biopsy and recently developed increased exertional dyspnea and hemoptysis as well as right arm and facial swelling. On this admission, workup has revealed a right upper lobe lung mass compressing the SVC. He has had no further reported hemoptysis and is awaiting a biopsy of the lung mass. He denies history of radiation therapy or collagen vascular disease. PAST MEDICAL HISTORY: Atrial fibrillation, hypertension, COPD. ALLERGIES: No known drug allergies. CURRENT MEDICATIONS: Spiriva, Betapace, Cardizem. FAMILY HISTORY: Brother of lung cancer. Another brother had gastric cancer. SOCIAL HISTORY: He lives with his . He has 3 children. 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 He smoked 1 pack per day since the age of 11 and recently has been cutting down, with the last cigarette about 2 weeks ago. Denies occupational exposure to asbestos or other toxic fumes or chemicals. REVIEW OF SYSTEMS: As noted above. PHYSICAL EXAMINATION: General: Well-developed, well-nourished male in no acute distress in the ICU. Vital Signs: Temperature 98.4, blood pressure 102/76, pulse 83, respiratory rate 18, SaO2 of 97% on 2 L nasal cannula. HEENT: Normocephalic, atraumatic. Moist mucous membranes. Anicteric sclerae. Clear oral cavity. Neck: Supple with mild swelling on the right, without obvious distended neck veins. No discrete cervical or supraclavicular adenopathy. Chest: Diminished breath sounds bilaterally due to poor effort. Axilla: No axillary adenopathy. Abdomen: Soft, nontender, nondistended. Active bowel sounds. Extremities: Mild right upper extremity edema with full range of motion. Musculoskeletal: No spine tenderness or paraspinal mass. Neurologic: Nonfocal. LABORATORY DATA: WBC 4.9, hemoglobin 14.1, platelets 203,000. Electrolytes within normal limits. BUN 11, creatinine 0.8. Liver function tests within normal limits. Albumin 3.3. INR 1.18. RADIOLOGIC DATA: CT chest with contrast April 07, 2018: Marked narrowing of the distal SVC without complete occlusion, collateral venous channels in the right chest wall and base of neck, a large central right upper lobe mass causing the compression. The mass measures 6.7 cm with cavitation; adjacent consolidation/atelectasis of the right upper lobe. Subcentimeter lymph nodes in the mediastinum. IMPRESSION: A 62-year-old smoker with right upper lobe mass associated with superior vena cava compression causing mild superior vena cava syndrome. High clinical suspicion for malignancy. The patient is clinically stable and monitored closely in the ICU while awaiting biopsy scheduled for tomorrow. As he is clinically stable and slightly improving, I recommend waiting for the tissue diagnosis before deciding on further treatment. An endovascular stent will be considered by Interventional Radiology. Radiation therapy will be on standby should the patient clinically deteriorate. Further staging workup to be determined pending the above. Thank you for asking me to see this patient. ELEANOR CUNNINGHAM M.D. [id number] MTDD
--- NOTE | 2018-04-11 20:42 | PN ---
Progress Note (short form) - Note Progress Note: PAtient seen and examined Feels swelling of face and RUE is improved Last Vital Signs Temp Pulse Resp BP Pulse Ox 98.0 F 76 18 116/72 97 04/11/18 17:00 04/11/18 17:00 04/11/18 20:15 04/11/18 17:00 04/11/18 20:15 Cor: RSR, No murmurs, No gallops Lungs: Clear to P&A Abd: Soft, Normal bowel sounds, No organomegaly Ext:No significant edema Abnormal Lab Results 04/11/18 04/11/18 04/11/18 05:30 05:30 05:30 Monocytes % 11.7 H PT with INR 13.90 H INR 1.18 H AST 14 L Albumin 3.3 L Active Medications Generic Name Dose Route Start Last Admin Trade Name Freq PRN Reason Stop Dose Admin Acetaminophen 650 mg 04/09/18 12:59 04/11/18 03:48 Tylenol - PO 650 mg Q6H PRN Administration PAIN OR FEVER Diltiazem HCl 180 mg 04/10/18 10:00 04/11/18 09:45 Cardizem Cd - PO 180 mg DAILY ALONDRA Administration Sotalol HCl 80 mg 04/08/18 19:00 04/11/18 09:45 Betapace - PO 80 mg BID ALONDRA Administration Tiotropium [place] 2 puff 04/08/18 10:00 04/11/18 09:49 Spiriva Respimat IH 2 puff DAILY ALONDAR Administration A/P 62-year-old male with a history of cigarette smoking, COPD, hypertension, recently diagnosed atrial fibrillation (on Eliquis) and known lung nodule for 20 years. He was scheduled for bronchoscopy in February, but was noted to have new atrial fibrillation at the time of the procedure, so it was deferred. Since that time, he has had worsening symptoms, including dyspnea on minimal exertion and with laying flat (he reports that he now has to sleep upright) and cough with occasional hemoptysis . He presents with worsening dyspnea and new upper extremity edema. He is referred for suspicion of possible SVC syndrome. CT imaging shows large central right upper lobe mass causing narrowing of SVC. Marked narrowing of distal SVC. For tissue diagnosis---in am endovenous stent placement if decompensates rad-onc consult appreciated On lovenox for anticoagulation for afib discussed with pulmonary team/IR
[2018-04-11] MEDS ORDERED: oxyCODONE HCL 5 MG TABLET PO ONE (21:56)
--- NOTE | 2018-04-12 06:53 | PN ---
Progress Note (short form) - Note Progress Note: Chief Complaint: Events noted, notes reviewed, dyspnea continues to improve, denies any chest pain, remains in sinus rhythm, no further paroxysmal atrial flutter/atrial fibrillation noted, bradycardia/sinus bradycardia noted History of Present Illness: Seen and examined on telemetry. Events noted, notes reviewed, dyspnea continues to improve, denies any chest pain, remains in sinus rhythm, no further paroxysmal atrial flutter/atrial fibrillation noted, bradycardia/sinus bradycardia noted Holter monitor dated 02/22/2018 revealed sinus rhythm with paroxysmal atrial fibrillation/atrial flutter with aberrant conduction (RBBB morphology) 5.44% of time, frequent PAC's, PVC's CT scan of the chest dated 12/22/2017 Large irregular cavitary soft tissue mass involving right superior mediastinum in right to mid and superior hilar region suspicious for primary or secondary malignancy CT scan of the chest dated 04/07/2018 Large central RUL mass with invasion of mediastinum and adjacent consolidation/ATX RUL, distal SVC stenosis without obstruction with collateralization Echocardiograohy dated 03/11/2018 Normal LV and RV size and fxn with abnl LV compliance, mildly dilated ascending aorta, mild MR, TR. tr PA MPI study dated 03/29/2018 Negative maximal stress test for ischemia, LVEF 60% Medications: Current Medications Acetaminophen (Tylenol -) 650 mg PO Q6H PRN PRN Reason: PAIN OR FEVER Last Admin: 04/11/18 03:48 Dose: 650 mg Diltiazem HCl (Cardizem Cd -) 180 mg PO DAILY [facility] Last Admin: 04/11/18 09:45 Dose: 180 mg Sotalol HCl (Betapace -) 80 mg PO BID [facility] Last Admin: 04/11/18 21:45 Dose: 80 mg Tiotropium [place] (Spiriva Respimat) 2 puff IH DAILY [facility] Last Admin: 04/11/18 09:49 Dose: 2 puff Review of Systems - Review of Systems Constitutional: no symptoms reported Respiratory: reports Cough and Intermittent Hemoptysis Cardiovascular: as noted above Gastrointestinal: denies Nausea, Vomiting, Diarrhea, Constipation or Abdominal Pain Genitourinary: no symptoms reported Musculoskeletal: no symptoms reported Endocrine: no symptoms reported Vital Signs: Last Vital Signs Temp Pulse Resp BP Pulse Ox 98.7 F 16 L 12 116/66 97 04/12/18 02:25 10/09/18 02:25 04/12/18 02:25 04/12/18 02:25 04/11/18 20:15 Intake & Output 04/09/18 04/10/18 04/11/18 04/12/18 23:59 23:59 23:59 23:59 Intake Total 540 431 9001 Output Total 700 350 Balance 480 520 620 -350 Neck: Supple Negative JVD Respiratory: Bilateral Scattered Rhonchi Cardiovascular: S1 S2 Regular Rate and Rhythm Gastrointestinal: Soft Benign Normal Bowel Sounds Ext: Negative Edema Labs: CBC, BMP 04/11/18 05:30 04/11/18 05:30 Hepatic Panel Total Bilirubin 0.5 mg/dL (0.2-1) 04/11/18 05:30 AST 14 U/L (15-37) L 04/11/18 05:30 ALT 17 U/L (13-61) 04/11/18 05:30 Alkaline Phosphatase 64 U/L (45-117) 04/11/18 05:30 Albumin 3.3 g/dl (3.4-5.0) L 04/11/18 05:30 Assessment/Plan ASSESSMENT: 1. SVC Syndrome related to to mediastinal mass, biopsy pending 2. RUL Lung Mass with hemoptysis, awaiting tissue biopsy planned for today 3. COPD/Emphysema 4. Palpitations, Paroxysmal Atrial Fibrillation/paroxysmal atrial flutter [id number] score of 1 on anticoagulation, Eliquis bridging for procedure with Lovenox (on hold for planned procedure) 5. Diastolic LV dysfunction with class 0 NYHA classification LV failure 6. HTN/HCVD 7. Hepatitis C post-treatment 8. Smoker PLAN: 1. Hold Lovenox pending mass biopsy, resume Eliquis post procedure once hemostasis is assured 2. Continue Betapace with close monitoring of QTc interval (yesterdays QTc 440) 3. Continue Cardizem CD and titrate dosage as tolerated and as needed 4. No absolute contraindications in proceeding with planned procedure/mass biopsy as outlined in prior notes Mary Lou Coffey M.D.
--- NOTE | 2018-04-12 08:14 | PN ---
Progress Note, Physician - Current Medication List Current Medications: Active Medications Acetaminophen (Tylenol -) 650 mg PO Q6H PRN PRN Reason: PAIN OR FEVER Last Admin: 04/11/18 03:48 Dose: 650 mg Diltiazem HCl (Cardizem Cd -) 180 mg PO DAILY [facility] Last Admin: 04/11/18 09:45 Dose: 180 mg Sotalol HCl (Betapace -) 80 mg PO BID [facility] Last Admin: 04/11/18 21:45 Dose: 80 mg Tiotropium [place] (Spiriva Respimat) 2 puff IH DAILY [facility] Last Admin: 04/11/18 09:49 Dose: 2 puff - Objective Vital Signs: Vital Signs Temperature 98.7 F 04/12/18 02:25 Pulse Rate 70 04/12/18 06:00 Respiratory Rate 14 04/12/18 06:00 Blood Pressure 114/73 04/12/18 06:00 O2 Sat by Pulse Oximetry (%) 97 04/11/18 20:15 Cardiovascular: Yes: S1, S2 Respiratory: Yes: Regular, CTA Bilaterally Gastrointestinal: Yes: Normal Bowel Sounds, Soft. No: Tenderness Labs: CBC, BMP 04/11/18 05:30 04/11/18 05:30 INR, PTT INR 1.18 (0.83-1.09) H 04/11/18 05:30 Fibrinogen > 500.0 mg/dL (238-498) H 04/10/18 13:15 Problem List - Problems (1) Lung mass Assessment/Plan: Biopsy today bronchodilators oxygen therapy Code(s): R91.8 - OTHER NONSPECIFIC ABNORMAL FINDING OF LUNG FIELD (2) Dyspnea Assessment/Plan: -IMRPOVED ct scan of chest noted TS to further evaluate the lung mass cardio and pulm eval noted dvt ppx ONC AND RT ON CASE Code(s): R06.00 - DYSPNEA, UNSPECIFIED Qualifiers: Dyspnea type: dyspnea on exertion Qualified Code(s): R06.09 - Other forms of dyspnea (3) Afib Assessment/Plan: metoprolol eliquis on hold for biopsy Code(s): I48.91 - UNSPECIFIED ATRIAL FIBRILLATION (4) COPD (chronic obstructive pulmonary disease) Assessment/Plan: oxygen bronchodilators Code(s): J44.9 - CHRONIC OBSTRUCTIVE PULMONARY DISEASE, UNSPECIFIED Qualifiers: COPD type: unspecified COPD Qualified Code(s): J44.9 - Chronic obstructive pulmonary disease, unspecified (5) SVC syndrome Assessment/Plan: Pulm on board TS consult STENT IF DECOMPESATES Code(s): I87.1 - COMPRESSION OF VEIN
[2018-04-12] MEDS: SOTALOL HCL 80 MG TABLET (FP) PO SCH ×2 (09:32→21:45)
[2018-04-12] MEDS: TIOTROPIUM BROMIDE 2.5 MCG (SPIRIVA) RESPIMAT INHALER IH SCH (10:00)
[2018-04-12] MEDS ORDERED: ACETAMINOPHEN 1000 MG/100 ML VIAL (NON FORMULARY) IVPB ONE (12:15)
--- NOTE | 2018-04-12 17:07 | PN ---
Progress Note (short form) - Note Progress Note: Radiation Oncology s/p CT-lung bx today. No PTX on CXR. Awaiting path before further tx decisions. Cont close monitoring per ICU/pulmonary teams.
--- NOTE | 2018-04-12 18:02 | PN ---
Progress Note (short form) - Note Progress Note: S/P RUL biopsy. Breathing feels OK. Some mild pleuritic CP with cough. Denies SOB. CXR: Right hemithorax volume loss with shift of the mediastinum. Constitutional: Yes: NAD Eyes: Yes: Conjunctiva Clear, EOM Intact HENT: Yes: Atraumatic Neck: Yes: (-) JVD, Right neck fullness Cardiovascular: Yes: Regular Rate and Rhythm Respiratory: Yes: Diminished on the right ...Clubbing: Yes Gastrointestinal: Yes: Normal Bowel Sounds, Soft. No: Tenderness Edema: RUE swelling Labs: Problem List - Problems (1) SVC syndrome Code(s): I87.1 - COMPRESSION OF VEIN (2) COPD (chronic obstructive pulmonary disease) Code(s): J44.9 - CHRONIC OBSTRUCTIVE PULMONARY DISEASE, UNSPECIFIED (3) Hemoptysis Code(s): R04.2 - HEMOPTYSIS (4) Lung mass Code(s): R91.8 - OTHER NONSPECIFIC ABNORMAL FINDING OF LUNG FIELD (5) Smoker Code(s): F17.200 - NICOTINE DEPENDENCE, UNSPECIFIED, UNCOMPLICATED (6) Paroxysmal atrial fibrillation Code(s): I48.0 - PAROXYSMAL ATRIAL FIBRILLATION Assessment/Plan SVC Syndrome due to Lung Mass COPD Emphysema Hemoptysis Paroxysmal Atrial Fibrillation on anticoagulation Smoker Suspected RLL atelectasis - STAT CBC - CXR in AM - If SOB/CP: STAT NCCT Chest - Rate control - Inhaled bronchodilators - Monitor/quantify hemoptysis (none today) - smoking cessation discussed - Monitor UE/chest edema Dr Jean
--- NOTE | 2018-04-12 19:13 | PN ---
Physical Exam: SUBJECTIVE: Patient seen and examined at bedside. No new complaints. No overnight events. S/P biopsy today. Tolerated procedure well. Pain is minimal. Breathing ok. Denies CP,MACKEY, abdominal pain , nausea, or vomiting. OBJECTIVE: Vital Signs Period Temp Pulse Resp BP Sys/Gtz Pulse Ox Last 24 Hr 98.3 F-98.7 F 66-88 12-24 99-133/53-87 95-97 GENERAL: AAOx3, NAD HEAD: NCAT EYES: PERRLA, EOMI, sclera anicteric, conjunctiva clear. No lid lag. EARS, NOSE, THROAT: Moist mucous membranes. NECK: Normal range of motion, supple with decreased swelling on right face. LUNGS: decreased breath sounds bilaterally, scattered rhonchi> R. No accessory muscle use. HEART: RRR, normal S1 and S2 without murmur, rub or gallop. ABDOMEN: Soft, NTND,NABS, no guarding, no rebound, no masses. No hepatomegaly or splenomegaly. UPPER EXTREMITIES: 2+ pulses, warm, well-perfused. No cyanosis. No clubbing. R arm edema improved. LOWER EXTREMITIES: 2+ pulses, warm, well-perfused. No calf tenderness. No peripheral edema. NEUROLOGICAL: no focal deficits. PSYCHIATRIC: Appropriate mood and affect. Active Medications Generic Name Dose Route Start Last Admin Trade Name Freq PRN Reason Stop Dose Admin Acetaminophen 650 mg 04/09/18 12:59 04/11/18 03:48 Tylenol - PO 650 mg Q6H PRN Administration PAIN OR FEVER Diltiazem HCl 180 mg 04/10/18 10:00 04/12/18 09:33 Cardizem Cd - PO 180 mg DAILY ALONDRA Administration Sotalol HCl 80 mg 04/08/18 19:00 04/12/18 09:32 Betapace - PO 80 mg BID ALONDRA Administration Tiotropium [place] 2 puff 04/08/18 10:00 04/12/18 10:00 Spiriva Respimat IH Not Given DAILY ALONDRA IMAGING: * CT/CHEST CT WITH CONTRASTHISTORY PROVIDED: Rule out SVC syndrome. Sequential axial images were obtained from the thoracic inlet through the domes of the diaphragm following the administration of intravenous contrast material. This study is a follow-up to an examination of earlier in the day which was performed without the use of intravenous contrast. Evaluation of the SVC demonstrates marked narrowing of the distal cava by a large central right upper lobe mass as it empties into the right atrium. The SVC is not completely occluded, however. Collateral venous channels are noted within the right chest wall and base of the neck. No additional changes have occurred within the chest since the prior study. IMPRESSION: Marked narrowing of the distal SVC without complete occlusion. Collateral venous channels identified within the right chest wall and base of the neck. Clinical correlation is advised. Please see above discussion. 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 Admitted for possible SVC syndrome. Problem List - Problems (1) Lung mass Assessment/Plan: IR guided biopsy today tolerated well * F/U CXR to assess for pneumo/hemothorax * Rad/Onc on board for possible radiation once tissue diagnosis made. * CT surgery on [facility]. * Further Recs pending biopsy results. (2) SVC syndrome Assessment/Plan: At this time breathing is not compromised * Will continue to monitor. * Edema has impoved. * minimal O2 requirements. goods sats on 2L NC * AC held for procedure (3) COPD (chronic obstructive pulmonary disease) Assessment/Plan: * Supplemental O2 PRN * maintain SpO2 >90% * Tiotropium [place] (Spiriva Respimat) 2 puff IH DAILY Visit type - Emergency Visit Emergency Visit: Yes ED Registration Date: 04/07/18 Care time: The patient presented to the Emergency Department on the above date and was hospitalized for further evaluation of their emergent condition. - New Patient This patient is new to me today: No - Critical Care Critical Care patient: No
[2018-04-12 19:18] LABS: BASO % 0.6 % (0-2.0); EOS % 3.4 % (0-4.5); HEMATOCRIT 41.4 % (35.4-49); HEMOGLOBIN 13.8 GM/dL (11.7-16.9); LYMPH % 26.2 % (8-40); MCH 30.8 pg (25.7-33.7); MCHC 33.4 g/dl (32.0-35.9); MEAN CELL VOLUME 92.3 fl (80-96); MEAN PLT VOLUME 7.2 fl (7.5-11.1); MONO % 11.1 % (3.8-10.2); NEUT % 58.7 % (42.8-82.8); PLATELET COUNT 253 K/MM3 (134-434); RBC 4.48 M/mm3 (4.00-5.60); RDW 15.2 % (11.9-15.9)
--- NOTE | 2018-04-12 20:28 | PN ---
Teaching Attending Note Name of Resident: Jaime Kruger ATTENDING PHYSICIAN STATEMENT I saw and evaluated the patient. I reviewed the resident's note and discussed the case with the resident. I agree with the resident's findings and plan as documented. SUBJECTIVE: Patient seen and examined . Lung mass with SVC syndrome. Statistically commonest ca is non small cell lung ca (by numbers) although small cell is commonest of lung carcinomas which present with SVC. Need path to decide re management decisions. Post biopsy. Short of breath , dyspneic Hct stable To await path- follow Hct and X-ray. OBJECTIVE: ASSESSMENT AND PLAN:
[2018-04-13] MEDS ORDERED: oxyCODONE HCL 5 MG TABLET PO ONE ×2 (02:52→20:25)
[2018-04-13 06:33] LABS: HEMATOCRIT 40.8 % (35.4-49); HEMOGLOBIN 13.4 GM/dL (11.7-16.9); MCH 30.4 pg (25.7-33.7); MEAN CELL VOLUME 92.3 fl (80-96); MEAN PLT VOLUME 7.4 fl (7.5-11.1); PLATELET COUNT 217 K/MM3 (134-434); RBC 4.42 M/mm3 (4.00-5.60); RDW 14.9 % (11.9-15.9); WHITE BLOOD COUNT 6.5 K/mm3 (4.0-10.0)
--- NOTE | 2018-04-13 08:46 | PN ---
Progress Note, Physician History of Present Illness: 62-year-old male with a history of cigarette smoking, COPD, hypertension, recently diagnosed atrial fibrillation (on Eliquis) and known lung nodule for 20 years. He was scheduled for bronchoscopy in February, but was noted to have new atrial fibrillation at the time of the procedure, so it was deferred. Since that time, he has had worsening symptoms, including dyspnea on minimal exertion and with laying flat (he reports that he now has to sleep upright) and cough with occasional hemoptysis ("a spot" of blood). 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 He is referred for suspicion of possible SVC syndrome.per patient he has gained 9 months with increase in upper arms and face swelling S/P LUNG BIOPSY ON 04/12 THIS M C/O SOB AND DIZZINESS - Current Medication List Current Medications: Active Medications Acetaminophen (Tylenol -) 650 mg PO Q6H PRN PRN Reason: PAIN OR FEVER Last Admin: 04/11/18 03:48 Dose: 650 mg Diltiazem HCl (Cardizem Cd -) 180 mg PO DAILY [facility] Last Admin: 04/12/18 09:33 Dose: 180 mg Sotalol HCl (Betapace -) 80 mg PO BID [facility] Last Admin: 04/12/18 21:45 Dose: 80 mg Tiotropium [place] (Spiriva Respimat) 2 puff IH DAILY [facility] Last Admin: 04/12/18 10:00 Dose: Not Given - Objective Vital Signs: Vital Signs Temperature 98.4 F 04/13/18 06:00 Pulse Rate 79 04/13/18 06:00 Respiratory Rate 20 04/13/18 06:00 Blood Pressure 103/61 04/13/18 06:00 O2 Sat by Pulse Oximetry (%) 97 04/12/18 21:00 Cardiovascular: Yes: S1, S2 Respiratory: Yes: Diminished, On Nasal O2 Gastrointestinal: Yes: Normal Bowel Sounds, Soft Labs: CBC, BMP 04/13/18 05:30 04/11/18 05:30 INR, PTT INR 1.18 (0.83-1.09) H 04/11/18 05:30 Fibrinogen > 500.0 mg/dL (238-498) H 04/10/18 13:15 Problem List - Problems (1) Lung mass Assessment/Plan: Biopsy done--CXR bronchodilators oxygen therapy Code(s): R91.8 - OTHER NONSPECIFIC ABNORMAL FINDING OF LUNG FIELD (2) Dyspnea Assessment/Plan: -on oxygen--CXR cardio and pulm eval noted dvt ppx ONC AND RT ON CASE Code(s): R06.00 - DYSPNEA, UNSPECIFIED Qualifiers: Dyspnea type: dyspnea on exertion Qualified Code(s): R06.09 - Other forms of dyspnea (3) Afib Assessment/Plan: metoprolol eliquis on hold for biopsy Code(s): I48.91 - UNSPECIFIED ATRIAL FIBRILLATION (4) COPD (chronic obstructive pulmonary disease) Assessment/Plan: oxygen bronchodilators Code(s): J44.9 - CHRONIC OBSTRUCTIVE PULMONARY DISEASE, UNSPECIFIED Qualifiers: COPD type: unspecified COPD Qualified Code(s): J44.9 - Chronic obstructive pulmonary disease, unspecified (5) SVC syndrome Assessment/Plan: Pulm on board TS consult STENT IF DECOMPESATES Code(s): I87.1 - COMPRESSION OF VEIN
[2018-04-13] MEDS: TIOTROPIUM BROMIDE 2.5 MCG (SPIRIVA) RESPIMAT INHALER IH SCH (10:49)
[2018-04-13] MEDS: SOTALOL HCL 80 MG TABLET (FP) PO SCH ×2 (12:46→21:10)
--- NOTE | 2018-04-13 13:52 | PN ---
Progress Note (short form) - Note Progress Note: PULMONARY s/p needle biopsy yesterday. Some discomfort at biopsy site. Occasional shortness of breath. +sweats at night. Vital Signs Period Temp Pulse Resp BP Sys/Gtz Pulse Ox Last 24 Hr 98.1 F-98.6 F 74-91 18-20 94-105/52-73 97-97 Gen: NAD at rest Heart: RRR Lung: decreased breath sounds, bronchial breath sounds right Abd: soft, nontender Ext: UE edema CBC, BMP 04/13/18 05:30 04/11/18 05:30 Active Medications Acetaminophen (Tylenol -) 650 mg PO Q6H PRN PRN Reason: PAIN OR FEVER Last Admin: 04/11/18 03:48 Dose: 650 mg Diltiazem HCl (Cardizem Cd -) 180 mg PO DAILY [facility] Last Admin: 04/13/18 10:49 Dose: 180 mg Sotalol HCl (Betapace -) 80 mg PO BID [facility] Last Admin: 04/13/18 12:46 Dose: 80 mg Tiotropium [place] (Spiriva Respimat) 2 puff IH DAILY [facility] Last Admin: 04/13/18 10:49 Dose: 2 puff A/P SVC Syndrome due to Lung Mass likely malignant COPD Emphysema Hemoptysis Paroxysmal Atrial Fibrillation on anticoagulation Smoker Suspected RLL atelectasis - f/u pathology - incentive spirometry - monitor CXR - may need CT chest if no improvement - rate control - inhaled bronchodilators - will likely need RT Problem List - Problems (1) SVC syndrome Code(s): I87.1 - COMPRESSION OF VEIN (2) COPD (chronic obstructive pulmonary disease) Code(s): J44.9 - CHRONIC OBSTRUCTIVE PULMONARY DISEASE, UNSPECIFIED Qualifiers: COPD type: unspecified COPD Qualified Code(s): J44.9 - Chronic obstructive pulmonary disease, unspecified (3) Hemoptysis Code(s): R04.2 - HEMOPTYSIS (4) Lung mass Code(s): R91.8 - OTHER NONSPECIFIC ABNORMAL FINDING OF LUNG FIELD (5) Smoker Code(s): F17.200 - NICOTINE DEPENDENCE, UNSPECIFIED, UNCOMPLICATED (6) Paroxysmal atrial fibrillation Code(s): I48.0 - PAROXYSMAL ATRIAL FIBRILLATION
--- NOTE | 2018-04-13 14:53 | PN ---
Physical Exam: SUBJECTIVE: Patient seen and examined at bedside. POD #1 s/p lung biopsy. Some sweating last night. Pain at needle insertion sight. Denies MACKEY, Abdominal pain, palpitations, nausea or vomiting. OBJECTIVE: Vital Signs Period Temp Pulse Resp BP Sys/Gtz Pulse Ox Last 24 Hr 98.1 F-98.6 F 74-91 18-20 94-105/52-73 97-97 GENERAL: AAOx3, NAD HEAD: NCAT EYES: PERRLA, EOMI, sclera anicteric, conjunctiva clear. No lid lag. EARS, NOSE, THROAT: Moist mucous membranes. NECK: Normal range of motion, supple with decreased swelling on right face. LUNGS: decreased breath sounds bilaterally, scattered rhonchi> R. No accessory muscle use. HEART: RRR, normal S1 and S2 without murmur, rub or gallop. ABDOMEN: Soft, NTND,NABS, no guarding, no rebound, no masses. No hepatomegaly or splenomegaly. UPPER EXTREMITIES: 2+ pulses, warm, well-perfused. No cyanosis. No clubbing. R arm edema improved. LOWER EXTREMITIES: 2+ pulses, warm, well-perfused. No calf tenderness. No peripheral edema. NEUROLOGICAL: no focal deficits. PSYCHIATRIC: Appropriate mood and affect. Laboratory Results - last 24 hr 04/12/18 04/13/18 18:55 05:30 WBC 6.0 6.5 RBC 4.48 4.42 Hgb 13.8 13.4 Hct 41.4 40.8 MCV 92.3 92.3 MCH 30.8 30.4 MCHC 33.4 33.0 RDW 15.2 14.9 Plt Count 253 D 217 MPV 7.2 L 7.4 L Absolute Neuts (auto) 3.5 Neutrophils % 58.7 Lymphocytes % 26.2 Monocytes % 11.1 H Eosinophils % 3.4 Basophils % 0.6 Nucleated RBC % 0 Active Medications Generic Name Dose Route Start Last Admin Trade Name Freq PRN Reason Stop Dose Admin Acetaminophen 650 mg 04/09/18 12:59 04/11/18 03:48 Tylenol - PO 650 mg Q6H PRN Administration PAIN OR FEVER Diltiazem HCl 180 mg 04/10/18 10:00 04/13/18 10:49 Cardizem Cd - PO 180 mg DAILY ALONDRA Administration Sotalol HCl 80 mg 04/08/18 19:00 04/13/18 12:46 Betapace - PO 80 mg BID ALONDRA Administration Tiotropium [place] 2 puff 04/08/18 10:00 04/13/18 10:49 Spiriva Respimat IH 2 puff DAILY ALONDRA Administration IMAGING: * CT/CHEST CT WITH CONTRASTHISTORY PROVIDED: Rule out SVC syndrome. Sequential axial images were obtained from the thoracic inlet through the domes of the diaphragm following the administration of intravenous contrast material. This study is a follow-up to an examination of earlier in the day which was performed without the use of intravenous contrast. Evaluation of the SVC demonstrates marked narrowing of the distal cava by a large central right upper lobe mass as it empties into the right atrium. The SVC is not completely occluded, however. Collateral venous channels are noted within the right chest wall and base of the neck. No additional changes have occurred within the chest since the prior study. IMPRESSION: Marked narrowing of the distal SVC without complete occlusion. Collateral venous channels identified within the right chest wall and base of the neck. Clinical correlation is advised. Please see above discussion. 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 Admitted for possible SVC syndrome. Problem List - Problems (1) Lung mass Assessment/Plan: IR guided biopsy yesterday * Questionable hemothorax on CXR but counts have been stable. * Pathology pending. * Rad/Onc on board for possible radiation once tissue diagnosis made. * CT surgery on [facility]. * Further Recs pending biopsy results. (2) SVC syndrome Assessment/Plan: At this time breathing is not compromised * Will continue to monitor. * Edema has impoved. * minimal O2 requirements. goods sats on 2L NC * Incentive spirometry. * AC held for procedure (3) COPD (chronic obstructive pulmonary disease) Assessment/Plan: * Supplemental O2 PRN * maintain SpO2 >90% * Tiotropium [place] (Spiriva Respimat) 2 puff IH DAILY Visit type - Emergency Visit Emergency Visit: Yes ED Registration Date: 04/07/18 Care time: The patient presented to the Emergency Department on the above date and was hospitalized for further evaluation of their emergent condition. - New Patient This patient is new to me today: No - Critical Care Critical Care patient: No
--- NOTE | 2018-04-13 16:56 | PN ---
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 - Current Medication List Current Medications: Active Medications Acetaminophen (Tylenol -) 650 mg PO Q6H PRN PRN Reason: PAIN OR FEVER Last Admin: 04/11/18 03:48 Dose: 650 mg Diltiazem HCl (Cardizem Cd -) 180 mg PO DAILY [facility] Last Admin: 04/13/18 10:49 Dose: 180 mg Sotalol HCl (Betapace -) 80 mg PO BID [facility] Last Admin: 04/13/18 12:46 Dose: 80 mg Tiotropium [place] (Spiriva Respimat) 2 puff IH DAILY [facility] Last Admin: 04/13/18 10:49 Dose: 2 puff - Objective Vital Signs: Vital Signs Temperature 98.6 F 04/13/18 15:18 Pulse Rate 76 04/13/18 15:18 Respiratory Rate 18 04/13/18 15:18 Blood Pressure 99/52 L 04/13/18 15:18 O2 Sat by Pulse Oximetry (%) 97 04/13/18 09:00 Constitutional: Yes: No Distress, Calm Neck: Yes: Supple Cardiovascular: Yes: Regular Rate and Rhythm Respiratory: Yes: Regular, Diminished, On Nasal O2 Gastrointestinal: Yes: Normal Bowel Sounds, Soft Edema: No Labs: CBC, BMP 04/13/18 05:30 04/11/18 05:30 INR, PTT INR 1.18 (0.83-1.09) H 04/11/18 05:30 Fibrinogen > 500.0 mg/dL (238-498) H 04/10/18 13:15 - ....Imaging Chest X-ray: Report Reviewed (Rt effusion with ATX) EKG: Report Reviewed (Tele: NSR) Problem List - Problems (1) COPD (chronic obstructive pulmonary disease) Code(s): J44.9 - CHRONIC OBSTRUCTIVE PULMONARY DISEASE, UNSPECIFIED Qualifiers: COPD type: unspecified COPD Qualified Code(s): J44.9 - Chronic obstructive pulmonary disease, unspecified (2) Dyspnea Code(s): R06.00 - DYSPNEA, UNSPECIFIED Qualifiers: Dyspnea type: dyspnea on exertion Qualified Code(s): R06.09 - Other forms of dyspnea (3) Hemoptysis Code(s): R04.2 - HEMOPTYSIS (4) Lung mass Code(s): R91.8 - OTHER NONSPECIFIC ABNORMAL FINDING OF LUNG FIELD (5) Paroxysmal atrial fibrillation Code(s): I48.0 - PAROXYSMAL ATRIAL FIBRILLATION (6) SVC syndrome Code(s): I87.1 - COMPRESSION OF VEIN (7) Smoker Code(s): F17.200 - NICOTINE DEPENDENCE, UNSPECIFIED, UNCOMPLICATED (8) Anticoagulant long-term use Code(s): Z79.01 - FPC (CURRENT) USE OF 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 Assessment/Plan 02/22/2018 Holter Monitor: SR with paroxysmal afib/flutter with aberrant conduction (RBBB morphology) 5.44% of time, frequent PAC, PVC 12/22/2017 Large irregular cavitary soft tissue mass involving right superior mediastinum in right to mid and superior hilar region suspicious for primary or secondary malignancy 04/07/2018 Large central RUL mass with invasion of mediastinum and adjacent consolidation/ATX RUL, distal SVC stenosis without obstruction with collateralization 03/11/2018 Echo: Normal LV and RV size and fxn with abnl LV compliance, mildly dilated ascending aorta, mild MR, TR. tr MT 03/29/2018 ETT Myoview: Negative maximal stress test for ischemia, LVEF 60% 1. SVC Syndrome 2. RUL Lung Mass suspect poorly differentiated squamous 3. COPD/Emphysema 4. Palpitations, Paroxysmal Atrial Fibrillation->SR [id number] on anticoagulation 5. Diastolic LV dysfunction with class 0 NYHA classification LV failure 6. HTN/HCVD 7. Hep C post-treatment 8. Smoker Plan: 1. Resume Eliquis 5 bid post biopsy, f/u formal pathology 2. Staging imaging, consider endovenous stent, combined RT/chemotherapy 3. Continue sotalol 80 bid, cardizem CD 180 qd 4. Inhaled bronchodilators, O2 as needed, smoking cessation
--- NOTE | 2018-04-13 16:57 | PN ---
Teaching Attending Note Name of Resident: Jaime Kruger Teaching Attending Note Name of Resident: Jaime Kruger ATTENDING PHYSICIAN STATEMENT I saw and evaluated the patient. I reviewed the resident's note and discussed the case with the resident. I agree with the resident's findings and plan as documented. SUBJECTIVE:Patient seen and examined Remains SOB and dyspneic Some pain at biopsy site Last Vital Signs Temp Pulse Resp BP Pulse Ox 97.4 F L 114 H 30 H 149/102 H 92 L 04/13/18 15:20 04/13/18 16:00 04/13/18 16:00 04/13/18 16:00 04/13/18 15:15 Cor: RSR, No murmurs, No gallops Lungs: rhonchi, wheezes, diminished breath sounds anteriorly and posteriorly R> L Abd: Soft, Normal bowel sounds, No organomegaly Ext:No significant edema Skin: No rashes, Integument intact CBC, BMP 04/13/18 05:30 04/13/18 05:30 Current Medications Generic Name Dose Route Start Last Admin Trade Name Roryq PRN Reason Stop Dose Admin Acetaminophen 650 mg 04/12/18 13:15 04/12/18 15:54 Tylenol - PO 650 mg Q6H PRN Administration PAIN Heparin Sodium (Porcine) 1,000 unit 04/13/18 15:23 Heparin - IVPUSH PRN PRN Heparin Heparin Sodium (Porcine) 5,000 unit 04/13/18 15:23 Heparin - IVPUSH PRN PRN Heparin Ceftriaxone Sodium 1 gm/ 50 mls @ 100 mls/hr 04/11/18 15:15 04/13/18 10:44 Dextrose IVPB 100 mls/hr DAILY ALONDRA Administration Protocol Alteplase, Recombinant 25 mg/ 225 mls @ 10 mls/hr 04/13/18 13:53 04/13/18 14: 52 Sodium Chloride IVPB 04/14/18 11:59 10 mls/hr ONCE ONE Administration Heparin Sodium/Dextrose 25,000 units in 500 mls @ 10 mls/hr 04/13/18 15:30 Heparin Infusion - IVPB TITR ALONDRA Protocol 500 UNITS/HR Metoprolol Tartrate 50 mg 04/12/18 22:00 04/13/18 10:44 Lopressor - PO 50 mg BID ALONDRA Administration OBJECTIVE:Impression: Spoke with pathology Path- reveals poorly differentiated carcinoma. Preliminary suggests squamous. Additional studies to confirm squamous etiology- pending. Patient informed of diagnosis of malignancy Spoke with Dr. Newton - option of placing stent -followed by staging patient and if localized disease consider combined RT/chemotherpay. If widespread mets- palliative RT and sequential chemotherapy. have asked for PDL-1evaluation. ASSESSMENT AND PLAN:
[2018-04-13] MEDS: APIXABAN 5 MG TABLET PO SCH (21:10)
--- NOTE | 2018-04-14 08:40 | PN ---
Progress Note, Physician - Current Medication List Current Medications: Active Medications Acetaminophen (Tylenol -) 650 mg PO Q6H PRN PRN Reason: PAIN OR FEVER Last Admin: 04/11/18 03:48 Dose: 650 mg Apixaban (Eliquis -) 5 mg PO BID [facility] Last Admin: 04/13/18 21:10 Dose: 5 mg Diltiazem HCl (Cardizem Cd -) 180 mg PO DAILY [facility] Last Admin: 04/13/18 10:49 Dose: 180 mg Sotalol HCl (Betapace -) 80 mg PO BID [facility] Last Admin: 04/13/18 21:10 Dose: 80 mg Tiotropium [place] (Spiriva Respimat) 2 puff IH DAILY [facility] Last Admin: 04/13/18 10:49 Dose: 2 puff - Objective Vital Signs: Vital Signs Temperature 96.2 F L 04/14/18 02:19 Pulse Rate 71 04/14/18 06:00 Respiratory Rate 20 04/14/18 06:00 Blood Pressure 104/67 04/14/18 06:00 O2 Sat by Pulse Oximetry (%) 98 04/13/18 20:33 Cardiovascular: Yes: S1, S2 Respiratory: Yes: Diminished, Rhonchi Gastrointestinal: Yes: Normal Bowel Sounds, Soft Labs: CBC, BMP 04/13/18 05:30 04/11/18 05:30 INR, PTT INR 1.18 (0.83-1.09) H 04/11/18 05:30 Fibrinogen > 500.0 mg/dL (238-498) H 04/10/18 13:15 Problem List - Problems (1) Lung cancer Assessment/Plan: Dr Hathaway Spoke with pathology Path- reveals poorly differentiated carcinoma. Preliminary suggests squamous. Additional studies to confirm squamous etiology- pending. Patient informed of diagnosis of malignancy Spoke with Dr. Newton - option of placing stent -followed by staging patient and if localized disease consider combined RT/chemotherpay. If widespread mets- palliative RT and sequential chemotherapy. have asked for PDL-1evaluation. Code(s): C34.90 - MALIGNANT NEOPLASM OF UNSP PART OF UNSP BRONCHUS OR LUNG (2) Lung mass Code(s): R91.8 - OTHER NONSPECIFIC ABNORMAL FINDING OF LUNG FIELD (3) Dyspnea Assessment/Plan: -on oxygen--CXR cardio and pulm eval noted dvt ppx incentive spirometry Code(s): R06.00 - DYSPNEA, UNSPECIFIED Qualifiers: Dyspnea type: dyspnea on exertion Qualified Code(s): R06.09 - Other forms of dyspnea (4) Afib Assessment/Plan: metoprolol eliquis on hold for biopsy Code(s): I48.91 - UNSPECIFIED ATRIAL FIBRILLATION (5) COPD (chronic obstructive pulmonary disease) Assessment/Plan: oxygen bronchodilators Code(s): J44.9 - CHRONIC OBSTRUCTIVE PULMONARY DISEASE, UNSPECIFIED Qualifiers: COPD type: unspecified COPD Qualified Code(s): J44.9 - Chronic obstructive pulmonary disease, unspecified (6) SVC syndrome Assessment/Plan: Pulm on board TS consult STENT IF DECOMPESATES Code(s): I87.1 - COMPRESSION OF VEIN
[2018-04-14] MEDS: TIOTROPIUM BROMIDE 2.5 MCG (SPIRIVA) RESPIMAT INHALER IH SCH (09:38)
[2018-04-14] MEDS: APIXABAN 5 MG TABLET PO SCH ×2 (09:38→21:21)
[2018-04-14] MEDS: SOTALOL HCL 80 MG TABLET (FP) PO SCH ×2 (09:38→21:22)
--- NOTE | 2018-04-14 10:04 | PN ---
Physical Exam: SUBJECTIVE: Patient seen and examined at bedside. No overnight events. No new complaints. Breathing is ok. Becomes SOB with minimal exertion off O2. Denies CP MACKEY, abdominal pain, nausea or vomiting. OBJECTIVE: Vital Signs Period Temp Pulse Resp BP Sys/Gtz Pulse Ox Last 24 Hr 96.2 F-98.6 F 69-84 18-20 98-111/52-70 98 GENERAL: AAOx3, NAD HEAD: NCAT EYES: PERRLA, EOMI, sclera anicteric, conjunctiva clear. No lid lag. EARS, NOSE, THROAT: Moist mucous membranes. NECK: Normal range of motion, supple with no LAD LUNGS: decreased breath sounds bilaterally,minimal BS of right lung ; scattered rhonchi. No accessory muscle use. HEART: RRR, normal S1 and S2 without murmur, rub or gallop. ABDOMEN: Soft, NTND,NABS, no guarding, no rebound, no masses. No hepatomegaly or splenomegaly. UPPER EXTREMITIES: 2+ pulses, warm, well-perfused. No cyanosis. No clubbing. R arm edema improved. LOWER EXTREMITIES: 2+ pulses, warm, well-perfused. No calf tenderness. No peripheral edema. NEUROLOGICAL: no focal deficits. PSYCHIATRIC: Appropriate mood and affect. Active Medications Generic Name Dose Route Start Last Admin Trade Name Freq PRN Reason Stop Dose Admin Acetaminophen 650 mg 04/09/18 12:59 04/11/18 03:48 Tylenol - PO 650 mg Q6H PRN Administration PAIN OR FEVER Apixaban 5 mg 04/13/18 22:00 04/14/18 09:38 Eliquis - PO 5 mg BID ALONDRA Administration Diltiazem HCl 180 mg 04/10/18 10:00 04/14/18 09:38 Cardizem Cd - PO 180 mg DAILY ALONDRA Administration Sotalol HCl 80 mg 04/08/18 19:00 04/14/18 09:38 Betapace - PO 80 mg BID ALONDRA Administration Tiotropium [place] 2 puff 04/08/18 10:00 04/14/18 09:38 Spiriva Respimat IH 2 puff DAILY ALONDRA Administration IMAGING: * CT/CHEST CT WITH CONTRASTHISTORY PROVIDED: Rule out SVC syndrome. Sequential axial images were obtained from the thoracic inlet through the domes of the diaphragm following the administration of intravenous contrast material. This study is a follow-up to an examination of earlier in the day which was performed without the use of intravenous contrast. Evaluation of the SVC demonstrates marked narrowing of the distal cava by a large central right upper lobe mass as it empties into the right atrium. The SVC is not completely occluded, however. Collateral venous channels are noted within the right chest wall and base of the neck. No additional changes have occurred within the chest since the prior study. IMPRESSION: Marked narrowing of the distal SVC without complete occlusion. Collateral venous channels identified within the right chest wall and base of the neck. Clinical correlation is advised. Please see above discussion. 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 Admitted for SVC syndrome. Problem List - Problems (1) Lung mass Assessment/Plan: IR guided biopsy done * Pathology official results pending. * Will start staging with Brain MRI and bone scan * Rad/Onc on board for possible radiation once tissue diagnosis made. * May need stent placement. IR made aware. * CT surgery on [facility]. * Further Recs pending biopsy results and staging w/u. (2) SVC syndrome Assessment/Plan: At this time breathing is not compromised * Will continue to monitor. * Edema has impoved. * Eliquis restarted. * minimal O2 requirements. goods sats on 2L [place] * Incentive spirometry. (3) COPD (chronic obstructive pulmonary disease) Assessment/Plan: * Supplemental O2 PRN * maintain SpO2 >90% * Tiotropium [place] (Spiriva Respimat) 2 puff IH DAILY Visit type - Emergency Visit Emergency Visit: Yes ED Registration Date: 04/07/18 Care time: The patient presented to the Emergency Department on the above date and was hospitalized for further evaluation of their emergent condition. - New Patient This patient is new to me today: No - Critical Care Critical Care patient: No
--- NOTE | 2018-04-14 11:23 | PN ---
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 Facial and right UE swelling improved on a/c. - Current Medication List Current Medications: Active Medications Acetaminophen (Tylenol -) 650 mg PO Q6H PRN PRN Reason: PAIN OR FEVER Last Admin: 04/11/18 03:48 Dose: 650 mg Apixaban (Eliquis -) 5 mg PO BID [facility] Last Admin: 04/14/18 09:38 Dose: 5 mg Diltiazem HCl (Cardizem Cd -) 180 mg PO DAILY [facility] Last Admin: 04/14/18 09:38 Dose: 180 mg Sotalol HCl (Betapace -) 80 mg PO BID [facility] Last Admin: 04/14/18 09:38 Dose: 80 mg Tiotropium [place] (Spiriva Respimat) 2 puff IH DAILY [facility] Last Admin: 04/14/18 09:38 Dose: 2 puff - Objective Vital Signs: Vital Signs Temperature 98.4 F 04/14/18 10:00 Pulse Rate 70 04/14/18 10:00 Respiratory Rate 22 H 04/14/18 10:00 Blood Pressure 101/74 04/14/18 10:00 O2 Sat by Pulse Oximetry (%) 95 04/14/18 10:00 Constitutional: Yes: No Distress, Calm Neck: Yes: Supple Cardiovascular: Yes: Regular Rate and Rhythm Respiratory: Yes: Regular, CTA Bilaterally Gastrointestinal: Yes: Normal Bowel Sounds, Soft Edema: No Labs: CBC, BMP 04/13/18 05:30 04/11/18 05:30 INR, PTT INR 1.18 (0.83-1.09) H 04/11/18 05:30 Fibrinogen > 500.0 mg/dL (238-498) H 04/10/18 13:15 - ....Imaging EKG: Report Reviewed (Tele: NSR, no PAF) Problem List - Problems (1) COPD (chronic obstructive pulmonary disease) Code(s): J44.9 - CHRONIC OBSTRUCTIVE PULMONARY DISEASE, UNSPECIFIED Qualifiers: COPD type: unspecified COPD Qualified Code(s): J44.9 - Chronic obstructive pulmonary disease, unspecified (2) Dyspnea Code(s): R06.00 - DYSPNEA, UNSPECIFIED Qualifiers: Dyspnea type: dyspnea on exertion Qualified Code(s): R06.09 - Other forms of dyspnea (3) Hemoptysis Code(s): R04.2 - HEMOPTYSIS (4) Lung mass Code(s): R91.8 - OTHER NONSPECIFIC ABNORMAL FINDING OF LUNG FIELD (5) Paroxysmal atrial fibrillation Code(s): I48.0 - PAROXYSMAL ATRIAL FIBRILLATION (6) SVC syndrome Code(s): I87.1 - COMPRESSION OF VEIN (7) Smoker Code(s): F17.200 - NICOTINE DEPENDENCE, UNSPECIFIED, UNCOMPLICATED (8) Anticoagulant long-term use Code(s): Z79.01 - BUSINESS OBJECTS ARCHITECT (CURRENT) USE OF 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 Assessment/Plan 02/22/2018 Holter Monitor: SR with paroxysmal afib/flutter with aberrant conduction (RBBB morphology) 5.44% of time, frequent PAC, PVC 12/22/2017 Large irregular cavitary soft tissue mass involving right superior mediastinum in right to mid and superior hilar region suspicious for primary or secondary malignancy 04/07/2018 Large central RUL mass with invasion of mediastinum and adjacent consolidation/ATX RUL, distal SVC stenosis without obstruction with collateralization 03/11/2018 Echo: Normal LV and RV size and fxn with abnl LV compliance, mildly dilated ascending aorta, mild MR, TR. tr [place] 03/29/2018 ETT Myoview: Negative maximal stress test for ischemia, LVEF 60% 1. SVC Syndrome 2. RUL Lung Mass suspect poorly differentiated squamous 3. COPD/Emphysema 4. Palpitations, Paroxysmal Atrial Fibrillation->SR [id number] on anticoagulation 5. Diastolic LV dysfunction with class 0 NYHA classification LV failure 6. HTN/HCVD 7. Hep C post-treatment 8. Smoker Plan: 1. Continue Eliquis 5 bid post biopsy, f/u formal pathology 2. Staging imaging, unlikely requires endovenous stent given improved venous drainage on a/c, combined RT/chemotherapy per oncology 3. Continue sotalol 80 bid, cardizem CD 180 qd 4. Inhaled bronchodilators, O2 as needed, smoking cessation
[2018-04-14 15:37] VITALS: BMI 25.3
--- NOTE | 2018-04-14 16:09 | PN ---
Progress Note (short form) - Note Progress Note: Breathing feels better today. Less UE/facial swelling noted. No CP. Intake & Output 04/11/18 04/12/18 04/13/18 04/14/18 23:59 23:59 23:59 23:59 Intake Total 1320 440 580 300 Output Total 700 650 150 500 Balance 620 -210 430 -200 Weight 192 lb Last Vital Signs Temp Pulse Resp BP Pulse Ox 98.5 F 70 22 H 112/66 95 04/14/18 14:00 04/14/18 14:00 04/14/18 14:00 04/14/18 14:00 04/14/18 10:00 Active Medications Acetaminophen (Tylenol -) 650 mg PO Q6H PRN PRN Reason: PAIN OR FEVER Last Admin: 04/11/18 03:48 Dose: 650 mg Apixaban (Eliquis -) 5 mg PO BID [facility] Last Admin: 04/14/18 09:38 Dose: 5 mg Diltiazem HCl (Cardizem Cd -) 180 mg PO DAILY [facility] Last Admin: 04/14/18 09:38 Dose: 180 mg Sotalol HCl (Betapace -) 80 mg PO BID [facility] Last Admin: 04/14/18 09:38 Dose: 80 mg Tiotropium [place] (Spiriva Respimat) 2 puff IH DAILY [facility] Last Admin: 04/14/18 09:38 Dose: 2 puff Constitutional: Yes: NAD Eyes: Yes: Conjunctiva Clear, EOM Intact HENT: Yes: Atraumatic Neck: Yes: (-) JVD, Right neck fullness Cardiovascular: Yes: Regular Rate and Rhythm Respiratory: Yes: Diminished on the right ...Clubbing: Yes Gastrointestinal: Yes: Normal Bowel Sounds, Soft. No: Tenderness Edema: RUE swelling Labs: Problem List - Problems (1) SVC syndrome Code(s): I87.1 - COMPRESSION OF VEIN (2) COPD (chronic obstructive pulmonary disease) Code(s): J44.9 - CHRONIC OBSTRUCTIVE PULMONARY DISEASE, UNSPECIFIED (3) Hemoptysis Code(s): R04.2 - HEMOPTYSIS (4) Lung mass Code(s): R91.8 - OTHER NONSPECIFIC ABNORMAL FINDING OF LUNG FIELD (5) Smoker Code(s): F17.200 - NICOTINE DEPENDENCE, UNSPECIFIED, UNCOMPLICATED (6) Paroxysmal atrial fibrillation Code(s): I48.0 - PAROXYSMAL ATRIAL FIBRILLATION Assessment/Plan Squamous Cell CA SVC Syndrome due to Lung Mass COPD Emphysema Hemoptysis Paroxysmal Atrial Fibrillation on anticoagulation Smoker Suspected RLL atelectasis - AC - Rate control - Inhaled bronchodilators - smoking cessation discussed - Monitor UE/chest edema Dr Jean
[2018-04-14] MEDS: ACETAMINOPHEN 325 MG TABLET (FP) PO PRN ×2 (16:26→22:29)
--- NOTE | 2018-04-14 22:14 | PN ---
Progress Note (short form) - Note Progress Note: PAtient seen and examined Feels swelling of face and RUE is improved Last Vital Signs Temp Pulse Resp BP Pulse Ox 98.5 F 70 20 100/64 95 04/14/18 14:00 04/14/18 14:00 04/14/18 19:39 04/14/18 18:00 04/14/18 19:39 Cor: RSR, No murmurs, No gallops Lungs: Clear to P&A Abd: Soft, Normal bowel sounds, No organomegaly Ext:No significant edema Active Medications Acetaminophen (Tylenol -) 650 mg PO Q6H PRN PRN Reason: PAIN OR FEVER Last Admin: 04/14/18 22:29 Dose: 650 mg Apixaban (Eliquis -) 5 mg PO BID [facility] Last Admin: 04/14/18 21:21 Dose: 5 mg Diltiazem HCl (Cardizem Cd -) 180 mg PO DAILY [facility] Last Admin: 04/14/18 09:38 Dose: 180 mg Sotalol HCl (Betapace -) 80 mg PO BID [facility] Last Admin: 04/14/18 21:22 Dose: 80 mg Tiotropium [place] (Spiriva Respimat) 2 puff IH DAILY [facility] Last Admin: 04/14/18 09:38 Dose: 2 puff A/P 62-year-old male with a history of cigarette smoking, COPD, hypertension, recently diagnosed atrial fibrillation (on Eliquis) and known lung nodule for 20 years. He was scheduled for bronchoscopy in February, but was noted to have new atrial fibrillation at the time of the procedure, so it was deferred. Since that time, he has had worsening symptoms, including dyspnea on minimal exertion and with laying flat (he reports that he now has to sleep upright) and cough with occasional hemoptysis . He presents with worsening dyspnea and new upper extremity edema. He is referred for suspicion of possible SVC syndrome. CT imaging shows large central right upper lobe mass causing narrowing of SVC. Marked narrowing of distal SVC. Preliminary path c/w --poorly differentiated carcinoma endovenous stent placement if decompensates rad-onc consult appreciated for staging w/u with MRI/bone scan before final treatment plan will follow
--- NOTE | 2018-04-15 08:44 | PN ---
Progress Note, Physician History of Present Illness: 62-year-old male with a history of cigarette smoking, COPD, hypertension, recently diagnosed atrial fibrillation (on Eliquis) and known lung nodule for 20 years. He was scheduled for bronchoscopy in February, but was noted to have new atrial fibrillation at the time of the procedure, so it was deferred. Since that time, he has had worsening symptoms, including dyspnea on minimal exertion and with laying flat (he reports that he now has to sleep upright) and cough with occasional hemoptysis ("a spot" of blood). 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 He is referred for suspicion of possible SVC syndrome.per patient he has gained 9 months with increase in upper arms and face swelling S/P LUNG BIOPSY ON 04/12 Feels better - Current Medication List Current Medications: Active Medications Acetaminophen (Tylenol -) 650 mg PO Q6H PRN PRN Reason: PAIN OR FEVER Last Admin: 04/14/18 22:29 Dose: 650 mg Apixaban (Eliquis -) 5 mg PO BID [facility] Last Admin: 04/14/18 21:21 Dose: 5 mg Diltiazem HCl (Cardizem Cd -) 180 mg PO DAILY [facility] Last Admin: 04/14/18 09:38 Dose: 180 mg Sotalol HCl (Betapace -) 80 mg PO BID [facility] Last Admin: 04/14/18 21:22 Dose: 80 mg Tiotropium [place] (Spiriva Respimat) 2 puff IH DAILY [facility] Last Admin: 04/14/18 09:38 Dose: 2 puff - Objective Vital Signs: Vital Signs Temperature 98.5 F 04/14/18 14:00 Pulse Rate 77 04/15/18 07:39 Respiratory Rate 28 H 04/15/18 07:39 Blood Pressure 105/73 04/15/18 07:39 O2 Sat by Pulse Oximetry (%) 95 04/14/18 19:39 Respiratory: Yes: Diminished, On Nasal O2, Rhonchi Gastrointestinal: Yes: Normal Bowel Sounds, Soft Labs: CBC, BMP 04/13/18 05:30 04/11/18 05:30 INR, PTT INR 1.18 (0.83-1.09) H 04/11/18 05:30 Fibrinogen > 500.0 mg/dL (238-498) H 04/10/18 13:15 Problem List - Problems (1) Lung cancer Assessment/Plan: Dr Hathaway Spoke with pathology Path- reveals poorly differentiated carcinoma. Preliminary suggests squamous. Additional studies to confirm squamous etiology- pending. Patient informed of diagnosis of malignancy Spoke with Dr. Newton - option of placing stent -followed by staging patient and if localized disease consider combined RT/chemotherpay. If widespread mets- palliative RT and sequential chemotherapy. have asked for PDL-1evaluation. Code(s): C34.90 - MALIGNANT NEOPLASM OF UNSP PART OF UNSP BRONCHUS OR LUNG (2) Lung mass Code(s): R91.8 - OTHER NONSPECIFIC ABNORMAL FINDING OF LUNG FIELD (3) Dyspnea Assessment/Plan: -on oxygen--CXR cardio and pulm eval noted dvt ppx incentive spirometry Code(s): R06.00 - DYSPNEA, UNSPECIFIED Qualifiers: Dyspnea type: dyspnea on exertion Qualified Code(s): R06.09 - Other forms of dyspnea (4) Afib Assessment/Plan: metoprolol eliquis on hold for biopsy Code(s): I48.91 - UNSPECIFIED ATRIAL FIBRILLATION (5) COPD (chronic obstructive pulmonary disease) Assessment/Plan: oxygen bronchodilators Code(s): J44.9 - CHRONIC OBSTRUCTIVE PULMONARY DISEASE, UNSPECIFIED Qualifiers: COPD type: unspecified COPD Qualified Code(s): J44.9 - Chronic obstructive pulmonary disease, unspecified (6) SVC syndrome Assessment/Plan: Pulm on board TS consult noted STENT IF DECOMPESATES Code(s): I87.1 - COMPRESSION OF VEIN
[2018-04-15] MEDS: SOTALOL HCL 80 MG TABLET (FP) PO SCH ×2 (10:03→22:09)
[2018-04-15] MEDS: APIXABAN 5 MG TABLET PO SCH ×2 (10:03→22:09)
[2018-04-15] MEDS: TIOTROPIUM BROMIDE 2.5 MCG (SPIRIVA) RESPIMAT INHALER IH SCH (10:04)
--- NOTE | 2018-04-15 11:13 | PN ---
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 Facial and right UE swelling improved on a/c. - Current Medication List Current Medications: Active Medications Acetaminophen (Tylenol -) 650 mg PO Q6H PRN PRN Reason: PAIN OR FEVER Last Admin: 04/14/18 22:29 Dose: 650 mg Apixaban (Eliquis -) 5 mg PO BID [facility] Last Admin: 04/15/18 10:03 Dose: 5 mg Diltiazem HCl (Cardizem Cd -) 180 mg PO DAILY [facility] Last Admin: 04/15/18 10:04 Dose: 180 mg Sotalol HCl (Betapace -) 80 mg PO BID [facility] Last Admin: 04/15/18 10:03 Dose: 80 mg Tiotropium [place] (Spiriva Respimat) 2 puff IH DAILY [facility] Last Admin: 04/15/18 10:04 Dose: 2 puff - Objective Vital Signs: Vital Signs Temperature 98.5 F 04/14/18 14:00 Pulse Rate 77 04/15/18 07:39 Respiratory Rate 28 H 04/15/18 07:39 Blood Pressure 105/73 04/15/18 07:39 O2 Sat by Pulse Oximetry (%) 95 04/14/18 19:39 Constitutional: Yes: No Distress, Calm Neck: Yes: Supple Cardiovascular: Yes: Regular Rate and Rhythm Respiratory: Yes: Regular, Diminished, On Nasal O2 Gastrointestinal: Yes: Normal Bowel Sounds, Soft Edema: No Labs: CBC, BMP 04/13/18 05:30 04/11/18 05:30 INR, PTT INR 1.18 (0.83-1.09) H 04/11/18 05:30 Fibrinogen > 500.0 mg/dL (238-498) H 04/10/18 13:15 - ....Imaging EKG: Report Reviewed (Tele: NSR no PAF) Problem List - Problems (1) COPD (chronic obstructive pulmonary disease) Code(s): J44.9 - CHRONIC OBSTRUCTIVE PULMONARY DISEASE, UNSPECIFIED Qualifiers: COPD type: unspecified COPD Qualified Code(s): J44.9 - Chronic obstructive pulmonary disease, unspecified (2) Dyspnea Code(s): R06.00 - DYSPNEA, UNSPECIFIED Qualifiers: Dyspnea type: dyspnea on exertion Qualified Code(s): R06.09 - Other forms of dyspnea (3) Hemoptysis Code(s): R04.2 - HEMOPTYSIS (4) Lung mass Code(s): R91.8 - OTHER NONSPECIFIC ABNORMAL FINDING OF LUNG FIELD (5) Paroxysmal atrial fibrillation Code(s): I48.0 - PAROXYSMAL ATRIAL FIBRILLATION (6) SVC syndrome Code(s): I87.1 - COMPRESSION OF VEIN (7) Smoker Code(s): F17.200 - NICOTINE DEPENDENCE, UNSPECIFIED, UNCOMPLICATED (8) Anticoagulant long-term use Code(s): Z79.01 - CAMP COORDINATOR (CURRENT) USE OF 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 Assessment/Plan 02/22/2018 Holter Monitor: SR with paroxysmal afib/flutter with aberrant conduction (RBBB morphology) 5.44% of time, frequent PAC, PVC 12/22/2017 Large irregular cavitary soft tissue mass involving right superior mediastinum in right to mid and superior hilar region suspicious for primary or secondary malignancy 04/07/2018 Large central RUL mass with invasion of mediastinum and adjacent consolidation/ATX RUL, distal SVC stenosis without obstruction with collateralization 03/11/2018 Echo: Normal LV and RV size and fxn with abnl LV compliance, mildly dilated ascending aorta, mild MR, TR. tr [place] 03/29/2018 ETT Myoview: Negative maximal stress test for ischemia, LVEF 60% 04/14/2018 Brain MRI: No metastases 1. SVC Syndrome 2. RUL Lung Mass suspect poorly differentiated squamous 3. COPD/Emphysema 4. Palpitations, Paroxysmal Atrial Fibrillation->SR [id number] on anticoagulation 5. Diastolic LV dysfunction with class 0 NYHA classification LV failure 6. HTN/HCVD 7. Hep C post-treatment 8. Smoker Plan: 1. Continue Eliquis 5 bid post biopsy, f/u formal pathology 2. Staging imaging, unlikely requires endovenous stent given improved venous drainage on a/c, combined RT/chemotherapy per oncology 3. Continue sotalol 80 bid, cardizem CD 180 qd 4. Inhaled bronchodilators, O2 as needed, smoking cessation
--- NOTE | 2018-04-15 11:50 | PN ---
Progress Note (short form) - Note Progress Note: Radiation Oncology Seems clinically stable from SVC syndrome, slight improvement. Prelim path from lung bx suggests a PD carcinoma, favoring squamous type. Await final path and agree with completing staging w/u (MRI brain neg). Spoke to IR who is considering endovascular stent before tx. 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
--- NOTE | 2018-04-15 11:51 | PN ---
Progress Note (short form) - Note Progress Note: Patient seen and examined Undergoing staging work up MRI of brain negative Was injected for bone scan Last Vital Signs Temp Pulse Resp BP Pulse Ox 98.5 F 77 28 H 105/73 95 04/14/18 14:00 04/15/18 07:39 04/15/18 07:39 04/15/18 07:39 04/14/18 19:39 HEENT: [place], EOM Intact Oropharynx: No thrush, No mucositis Cor: RSR, No murmurs, No gallops Lungs: rhonchi, diminished breath sounds bilaterally Abd: Soft, Normal bowel sounds, No organomegaly Ext:No significant edema Skin: No rashes, Integument intact CBC, BMP 04/13/18 05:30 04/11/18 05:30 Current Medications Generic Name Dose Route Start Last Admin Trade Name Freq PRN Reason Stop Dose Admin Acetaminophen 650 mg 04/09/18 12:59 04/14/18 22:29 Tylenol - PO 650 mg Q6H PRN Administration PAIN OR FEVER Apixaban 5 mg 04/13/18 22:00 04/15/18 10:03 Eliquis - PO 5 mg BID ALONDRA Administration Diltiazem HCl 180 mg 04/10/18 10:00 04/15/18 10:04 Cardizem Cd - PO 180 mg DAILY ALONDRA Administration Sotalol HCl 80 mg 04/08/18 19:00 04/15/18 10:03 Betapace - PO 80 mg BID ALONDRA Administration Tiotropium [place] 2 puff 04/08/18 10:00 04/15/18 10:04 Spiriva Respimat IH 2 puff DAILY ALONDRA Administration Impression: Official pathology- moderately differentiated SQUAMOUS CELL CARCINOMA Discussed proceeding with stent prior to any RT and possible chemotherapy intervention Staging work up underway MRI brain- negative Injected for bone scan.
--- NOTE | 2018-04-15 12:36 | CONS ---
DATE OF CONSULTATION: 04/15/2018. PHYSICAL MEDICINE REHABILITATION CONSULTATION REFERRING PHYSICIAN: Anika Veliz MD HISTORY OF PRESENT ILLNESS: The patient is a 62-year-old tobacco-smoking male with a past medical history of COPD, hypertension, atrial fibrillation on Eliquis, and known lung nodule who has been scheduled for bronchoscopy, but developed atrial fibrillation, which was new onset in February. He had worsening symptoms including dyspnea with minimal exertion, cough, and developed swelling of the right upper extremity. 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 He also was diagnosed with SVC (superior vena cava) syndrome. Patient has been undergoing imaging, which included an MRI of the brain, which was negative for any metastatic lesion. He was scheduled for a bone scan and notes a little bit of discomfort in the right shoulder, but otherwise no pain, no numbness/ tingling. The swelling has improved. On admission his CBC was normal, WBC was 4.9, hemoglobin 14.4, platelet count 204. INR slightly elevated on admission 1.32; as of April 11, was 1.18. Chemistry on admission was fairly normal, sodium 138, potassium 3.8, chloride 107, BUN 11, creatinine 0.8. His albumin on repeat on April 11 was slightly low at 3.3, but otherwise chemistry fairly unremarkable. CBC on April 13 also was fairly unremarkable and stable, WBC 6.5, hemoglobin 13.4, platelet count 217. Patient states he has been up and ambulating to the bathroom and was referred for rehabilitation evaluation. He is wearing oxygen. REVIEW OF PAST MEDICAL AND SURGICAL HISTORY: As above, COPD, atrial fibrillation of fairly new onset (on Eliquis), hypertension, tobacco-user with history of a lung nodule. ALLERGIES: None noted. SOCIAL HISTORY: Patient lives with his in a walkup apartment with stairs on the 2nd floor. Premorbidly, he was completely independent, but again, he was having problems with shortness of breath with exertion. Current function as above. REVIEW OF SYSTEMS: No lightheadedness, dizziness. No headache. No blurry vision, double vision, or change in vision. No nausea, vomiting, difficulty swallowing, difficulty chewing. No chest pain or shortness of breath at rest. He does get dyspneic on exertion. No night orthopnea. He gets some swelling of the right upper extremity, which has improved to resolved. He has no abdominal pain. No bowel/bladder change such as constipation, diarrhea, urinary retention, incontinence of bowel or bladder. No fever or chills. No joint arthralgias other than the right shoulder with movement. Again, swelling has abated. He did gain some weight, approximately 9 pounds, with the fluid retention and swelling, but he is unsure and does not feel like he has lost any weight otherwise. No back or neck pain. No muscle aches. PHYSICAL EXAMINATION: General: On examination, a very friendly man, who is sitting up in a wheelchair. He has oxygen via nasal cannula, but he is awake, conversant, seems to have good insight into his medical conditions and workup for the lung mass. He is in no acute distress and does not appear to be short of breath with speaking. HEENT: He is normocephalic and atraumatic. Extraocular muscles appear intact. He has no obvious facial weakness. Neck: Supple. Extremities: Without any current edema or calf tenderness. No real swelling of the right upper extremity noted. Skin: Without any breakdown, erythema, or ecchymosis. Neuromuscular: He is awake, alert, and oriented x3. Cranial nerves 2 through 12 grossly intact. He has slight limitations in movement of the right shoulder due to discomfort, perhaps 4/5 strength, but otherwise good range of motion, good joint stability, full strength 5/5, no atrophy in the upper or lower extremities, no arthritic changes in the upper or lower extremities, and full range of motion. He has normal sensation to light touch, pinprick throughout the upper and lower extremities. His reflexes are symmetric. Toes neither upgoing or downgoing. Unable to stand or ambulate him. He is currently in a wheelchair returning from a procedure, attached to oxygen. OVERALL IMPRESSION: 1. Deficits mobility and activities of daily living. 2. Deconditioning. 3. Lung mass consistent with a poorly differentiated carcinoma, possibly squamous cell. 4. Possible superior vena cava syndrome with edema of the right upper extremity improved. 5. Underlying chronic obstructive pulmonary disease. 6. Atrial fibrillation on Eliquis. 7. Probable slight elevated body mass index. 8. Hypertension. 9. Elevated risk for deep venous thrombosis due to immobility and probable cancer. 10. Elevated risk for skin breakdown due to a low albumin level and immobility. 11. Currently moving his bowels and urinating well. PLANS AND SUGGESTIONS: 1. Physical therapy at the bedside to include bed mobility, transfers, gait training, strengthening, reconditioning as able. 2. Out of bed to chair. 3. Patient is on Eliquis. No further DVT prophylaxis needed. 4. Consider dietary consultation or dietary supplement regarding low albumin. 5. Avoid heel and sacral pressure. 6. Oncologic followup with Dr. Hathaway. 7. Bone scan should be done. 8. Probable home with oxygen versus short-term rehabilitation in a penitentiary facility based on his ability to climb stairs and oxygen saturation. Thank you very much for this consultation. HECTOR STEELE M.D. [id number]
[2018-04-15] MEDS ORDERED: PT OWN MED DRAWER 7, Y5N ONE (13:28)
--- NOTE | 2018-04-15 14:19 | PN ---
Progress Note (short form) - Note Progress Note: Breathing feels OK today. Overall improving. No CP. Intake & Output 04/12/18 04/13/18 04/14/18 04/15/18 23:59 23:59 23:59 23:59 Intake Total 440 580 540 240 Output Total 650 150 502 350 Balance -210 430 38 -110 Weight 192 lb Last Vital Signs Temp Pulse Resp BP Pulse Ox 98.3 F 74 22 H 103/75 95 04/15/18 13:37 04/15/18 13:37 04/15/18 13:37 04/15/18 13:37 04/15/18 09:00 Active Medications Acetaminophen (Tylenol -) 650 mg PO Q6H PRN PRN Reason: PAIN OR FEVER Last Admin: 04/14/18 22:29 Dose: 650 mg Apixaban (Eliquis -) 5 mg PO BID [facility] Last Admin: 04/15/18 10:03 Dose: 5 mg Diltiazem HCl (Cardizem Cd -) 180 mg PO DAILY [facility] Last Admin: 04/15/18 10:04 Dose: 180 mg Sotalol HCl (Betapace -) 80 mg PO BID [facility] Last Admin: 04/15/18 10:03 Dose: 80 mg Tiotropium [place] (Spiriva Respimat) 2 puff IH DAILY [facility] Last Admin: 04/15/18 10:04 Dose: 2 puff Constitutional: Yes: NAD Eyes: Yes: Conjunctiva Clear, EOM Intact HENT: Yes: Atraumatic Neck: Yes: (-) JVD, Right neck fullness Cardiovascular: Yes: Regular Rate and Rhythm Respiratory: Yes: Diminished on the right ...Clubbing: Yes Gastrointestinal: Yes: Normal Bowel Sounds, Soft. No: Tenderness Edema: RUE swelling Labs: Problem List - Problems (1) SVC syndrome Code(s): I87.1 - COMPRESSION OF VEIN (2) COPD (chronic obstructive pulmonary disease) Code(s): J44.9 - CHRONIC OBSTRUCTIVE PULMONARY DISEASE, UNSPECIFIED (3) Hemoptysis Code(s): R04.2 - HEMOPTYSIS (4) Lung mass Code(s): R91.8 - OTHER NONSPECIFIC ABNORMAL FINDING OF LUNG FIELD (5) Smoker Code(s): F17.200 - NICOTINE DEPENDENCE, UNSPECIFIED, UNCOMPLICATED (6) Paroxysmal atrial fibrillation Code(s): I48.0 - PAROXYSMAL ATRIAL FIBRILLATION Assessment/Plan Squamous Cell CA SVC Syndrome due to Lung Mass COPD Emphysema Hemoptysis Paroxysmal Atrial Fibrillation on anticoagulation Smoker Suspected RLL atelectasis - AC with Eliquis - Rate control - Inhaled bronchodilators - smoking cessation discussed - Monitor UE/chest edema: improving Dr Jean
--- NOTE | 2018-04-15 14:26 | PATH ---
Surgical Pathology Report Patient Name: KATRIN GREGORY [facility]. Rec. #: [id number] /Age/Gender: 1955 (Age: 62) / M Account: [id number] Location: EMERGENCY ROOM Taken: 04/12/2018 Received: 04/12/2018 Reported: 04/14/2018 Physicians: Manuel Barnes M.D. Norman Rosen, M.D. Specimen(s) Received RIGHT LUNG BIOPSY Clinical History 62-year-old male with large right upper lobe, central mass with atelectasis and SVC syndrome Final Diagnosis LUNG, RIGHT, CT-GUIDED CORE BIOPSY: SQUAMOUS CELL CARCINOMA, MODERATELY DIFFERENTIATED. Comment: Immunohistochemical stains performed and interpreted at [facility] show the tumor is positive for CK7 and P63, while negative for TTF-1. Additional immunohistochemical stains performed at [place], [place] ([id number]) and interpreted at [facility] show the tumor is positive for p40 and CK5/6. Immunophenotype supports the diagnosis. Overall findings are compatible with lung origin, if other metastatic sites can be clinically excluded. Suggest clinical and radiologic correlation. Findings discussed with Dr. Hathaway. PDL-1 is pending and will be reported separately. Electronically Signed Ernestine Ontiveros M.D. Addendum Reported: 04/20/2018 Addendum Diagnosis PD-L1 (DAKO 22C3) immunohistochemical stain performed and interpreted at [place], [place] ([id number]) RESULTS: NO PD-L1 EXPRESSION. TUMOR PROPORTION SCORE (TPS) RESULT: 0% See [facility] report for details ([id number]) Ernestine Ontiveros M.D. Gross Description Received in formalin labeled "right lung biopsy," are 5 pate, cylindrical portions of soft tissue ranging from 0.3-0.7 cm in length and averaging 0.1 cm in diameter. The specimens are submitted in toto in one cassette. 04/12/2018 saudi04/12/2018
[2018-04-15] MEDS: ACETAMINOPHEN 325 MG TABLET (FP) PO PRN (18:05)
[2018-04-15] MEDS ORDERED: oxyCODONE HCL 5 MG TABLET PO ONE (22:00)
[2018-04-15] MEDS ORDERED: ACETAMINOPHEN 325 MG TABLET (FP) PO ONE (22:00)
[2018-04-16] MEDS: TIOTROPIUM BROMIDE 2.5 MCG (SPIRIVA) RESPIMAT INHALER IH SCH (09:56)
[2018-04-16] MEDS: SOTALOL HCL 80 MG TABLET (FP) PO SCH ×2 (09:56→22:10)
[2018-04-16] MEDS: APIXABAN 5 MG TABLET PO SCH ×2 (09:56→22:10)
--- NOTE | 2018-04-16 10:44 | PN ---
Progress Note, Physician - Current Medication List Current Medications: Active Medications Acetaminophen (Tylenol -) 650 mg PO Q6H PRN PRN Reason: PAIN OR FEVER Last Admin: 04/15/18 18:05 Dose: 650 mg Apixaban (Eliquis -) 5 mg PO BID [facility] Last Admin: 04/16/18 09:56 Dose: 5 mg Diltiazem HCl (Cardizem Cd -) 180 mg PO DAILY [facility] Last Admin: 04/16/18 09:56 Dose: 180 mg Oxycodone HCl (Roxicodone -) 10 mg PO Q6H PRN PRN Reason: PAIN LEVEL 6-10 Sotalol HCl (Betapace -) 80 mg PO BID [facility] Last Admin: 04/16/18 09:56 Dose: 80 mg Tiotropium [place] (Spiriva Respimat) 2 puff IH DAILY [facility] Last Admin: 04/16/18 09:56 Dose: 2 puff - Objective Vital Signs: Vital Signs Temperature 98 F 04/16/18 08:25 Pulse Rate 74 04/16/18 08:25 Respiratory Rate 75 H 04/16/18 08:25 Blood Pressure 117/69 04/16/18 08:25 O2 Sat by Pulse Oximetry (%) 98 04/16/18 10:00 Cardiovascular: Yes: S1, S2 Respiratory: Yes: Regular, CTA Bilaterally Gastrointestinal: Yes: Normal Bowel Sounds, Soft. No: Tenderness Labs: CBC, BMP 04/13/18 05:30 04/11/18 05:30 INR, PTT INR 1.18 (0.83-1.09) H 04/11/18 05:30 Fibrinogen > 500.0 mg/dL (238-498) H 04/10/18 13:15 Problem List - Problems (1) Lung cancer Assessment/Plan: Dr Hathaway Spoke with pathology Path- reveals poorly differentiated carcinoma. Preliminary suggests squamous. Additional studies to confirm squamous etiology- pending. Patient informed of diagnosis of malignancy Spoke with Dr. Newton - option of placing stent -followed by staging patient and if localized disease consider combined RT/chemotherpay. If widespread mets- palliative RT and sequential chemotherapy. have asked for PDL-1evaluation. Code(s): C34.90 - MALIGNANT NEOPLASM OF UNSP PART OF UNSP BRONCHUS OR LUNG (2) Lung mass Code(s): R91.8 - OTHER NONSPECIFIC ABNORMAL FINDING OF LUNG FIELD (3) Dyspnea Assessment/Plan: -Improving -on oxygen--CXR cardio and pulm eval noted dvt ppx incentive spirometry Code(s): R06.00 - DYSPNEA, UNSPECIFIED Qualifiers: Dyspnea type: dyspnea on exertion Qualified Code(s): R06.09 - Other forms of dyspnea (4) Afib Assessment/Plan: metoprolol eliquis on hold for biopsy Code(s): I48.91 - UNSPECIFIED ATRIAL FIBRILLATION (5) COPD (chronic obstructive pulmonary disease) Assessment/Plan: oxygen bronchodilators Code(s): J44.9 - CHRONIC OBSTRUCTIVE PULMONARY DISEASE, UNSPECIFIED Qualifiers: COPD type: unspecified COPD Qualified Code(s): J44.9 - Chronic obstructive pulmonary disease, unspecified (6) SVC syndrome Assessment/Plan: Pulm on board TS consult noted STENT IF DECOMPESATES Code(s): I87.1 - COMPRESSION OF VEIN
--- NOTE | 2018-04-16 11:15 | PN ---
Progress Note (short form) - Note Progress Note: Breathing feels OK today. Reports dizziness from yesterday that is somewhat better today. Asking for increased pain meds. No CP. Intake & Output 04/13/18 04/14/18 04/15/18 04/16/18 23:59 23:59 23:59 23:59 Intake Total 580 540 780 Output Total 150 502 550 200 Balance 430 38 230 -200 Weight 192 lb Last Vital Signs Temp Pulse Resp BP Pulse Ox 98 F 74 75 H 117/69 98 04/16/18 08:25 04/16/18 08:25 04/16/18 08:25 04/16/18 08:25 04/16/18 10:00 Active Medications Acetaminophen (Tylenol -) 650 mg PO Q6H PRN PRN Reason: PAIN OR FEVER Last Admin: 04/15/18 18:05 Dose: 650 mg Apixaban (Eliquis -) 5 mg PO BID [facility] Last Admin: 04/16/18 09:56 Dose: 5 mg Diltiazem HCl (Cardizem Cd -) 180 mg PO DAILY [facility] Last Admin: 04/16/18 09:56 Dose: 180 mg Oxycodone HCl (Roxicodone -) 10 mg PO Q6H PRN PRN Reason: PAIN LEVEL 6-10 Sotalol HCl (Betapace -) 80 mg PO BID [facility] Last Admin: 04/16/18 09:56 Dose: 80 mg Tiotropium [place] (Spiriva Respimat) 2 puff IH DAILY [facility] Last Admin: 04/16/18 09:56 Dose: 2 puff Constitutional: Yes: NAD Eyes: Yes: Conjunctiva Clear, EOM Intact HENT: Yes: Atraumatic Neck: Yes: (-) JVD, Right neck fullness Cardiovascular: Yes: Regular Rate and Rhythm Respiratory: Yes: Diminished on the right ...Clubbing: Yes Gastrointestinal: Yes: Normal Bowel Sounds, Soft. No: Tenderness Edema: RUE swelling Labs: Problem List - Problems (1) SVC syndrome Code(s): I87.1 - COMPRESSION OF VEIN (2) COPD (chronic obstructive pulmonary disease) Code(s): J44.9 - CHRONIC OBSTRUCTIVE PULMONARY DISEASE, UNSPECIFIED (3) Hemoptysis Code(s): R04.2 - HEMOPTYSIS (4) Lung mass Code(s): R91.8 - OTHER NONSPECIFIC ABNORMAL FINDING OF LUNG FIELD (5) Smoker Code(s): F17.200 - NICOTINE DEPENDENCE, UNSPECIFIED, UNCOMPLICATED (6) Paroxysmal atrial fibrillation Code(s): I48.0 - PAROXYSMAL ATRIAL FIBRILLATION Assessment/Plan Squamous Cell CA SVC Syndrome due to Lung Mass COPD Emphysema Hemoptysis Paroxysmal Atrial Fibrillation on anticoagulation Smoker Suspected RLL atelectasis - AC with Eliquis - Rate control - Inhaled bronchodilators - Pain control per primary - smoking cessation discussed - Monitor UE/chest edema: improving Dr Jean
--- NOTE | 2018-04-16 16:41 | PN ---
Progress Note, Physician Chief Complaint: squamous cell ca of lung History of Present Illness: Feels a little better, reports improvement in arm and face swelling. Denies SOB. - Current Medication List Current Medications: Active Medications Acetaminophen (Tylenol -) 650 mg PO Q6H PRN PRN Reason: PAIN OR FEVER Last Admin: 04/15/18 18:05 Dose: 650 mg Apixaban (Eliquis -) 5 mg PO BID [facility] Last Admin: 04/16/18 09:56 Dose: 5 mg Diltiazem HCl (Cardizem Cd -) 180 mg PO DAILY [facility] Last Admin: 04/16/18 09:56 Dose: 180 mg Oxycodone HCl (Roxicodone -) 10 mg PO Q6H PRN PRN Reason: PAIN LEVEL 6-10 Sotalol HCl (Betapace -) 80 mg PO BID [facility] Last Admin: 04/16/18 09:56 Dose: 80 mg Tiotropium [place] (Spiriva Respimat) 2 puff IH DAILY [facility] Last Admin: 04/16/18 09:56 Dose: 2 puff - Objective Vital Signs: Vital Signs Temperature 98.4 F 04/16/18 14:00 Pulse Rate 76 04/16/18 14:00 Respiratory Rate 17 04/16/18 14:00 Blood Pressure 101/72 04/16/18 14:00 O2 Sat by Pulse Oximetry (%) 98 04/16/18 10:00 Constitutional: Yes: Well Nourished, No Distress Eyes: Yes: Conjunctiva Clear, Other HENT: Yes: Other (+facial swelling) Cardiovascular: Yes: Regular Rate and Rhythm Respiratory: Yes: Regular, CTA Bilaterally Gastrointestinal: Yes: Soft. No: Distention, Tenderness Edema: Yes Edema: LUE: 1+, RUE: Trace Neurological: Yes: Alert Labs: CBC, BMP 04/13/18 05:30 04/11/18 05:30 INR, PTT INR 1.18 (0.83-1.09) H 04/11/18 05:30 Fibrinogen > 500.0 mg/dL (238-498) H 04/10/18 13:15 - ....Imaging MRI: Report Reviewed Other: Other (bone scan pending) Assessment/Plan 62M with COPD, AFib on Eliquis and newly diagnosed NSCLC squamous cell carcinoma c/b SVC syndrome. Symptoms mildly improving. Awaiting placement of stent with plan for subsequent chemo/RT.
[2018-04-16] MEDS: oxyCODONE HCL 5 MG TABLET PO PRN (22:11)
[2018-04-17] MEDS: TIOTROPIUM BROMIDE 2.5 MCG (SPIRIVA) RESPIMAT INHALER IH SCH (10:00)
[2018-04-17] MEDS: APIXABAN 5 MG TABLET PO SCH ×2 (10:00→21:44)
--- NOTE | 2018-04-17 10:03 | PN ---
Progress Note, Physician History of Present Illness: 62-year-old male with a history of cigarette smoking, COPD, hypertension, recently diagnosed atrial fibrillation (on Eliquis) and known lung nodule for 20 years. He was scheduled for bronchoscopy in February, but was noted to have new atrial fibrillation at the time of the procedure, so it was deferred. Since that time, he has had worsening symptoms, including dyspnea on minimal exertion and with laying flat (he reports that he now has to sleep upright) and cough with occasional hemoptysis ("a spot" of blood). 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 He is referred for suspicion of possible SVC syndrome.per patient he has gained 9 months with increase in upper arms and face swelling S/P LUNG BIOPSY ON 04/12 Feels better - Current Medication List Current Medications: Active Medications Acetaminophen (Tylenol -) 650 mg PO Q6H PRN PRN Reason: PAIN OR FEVER Last Admin: 04/15/18 18:05 Dose: 650 mg Apixaban (Eliquis -) 5 mg PO BID [facility] Last Admin: 04/16/18 22:10 Dose: 5 mg Diltiazem HCl (Cardizem Cd -) 180 mg PO DAILY [facility] Last Admin: 04/16/18 09:56 Dose: 180 mg Oxycodone HCl (Roxicodone -) 10 mg PO Q6H PRN PRN Reason: PAIN LEVEL 6-10 Last Admin: 04/16/18 22:11 Dose: 10 mg Sotalol HCl (Betapace -) 80 mg PO BID [facility] Last Admin: 04/16/18 22:10 Dose: 80 mg Tiotropium [place] (Spiriva Respimat) 2 puff IH DAILY [facility] Last Admin: 04/16/18 09:56 Dose: 2 puff - Objective Vital Signs: Vital Signs Temperature 98.1 F 04/16/18 16:42 Pulse Rate 84 04/17/18 06:00 Respiratory Rate 24 H 04/17/18 06:00 Blood Pressure 103/64 04/17/18 02:00 O2 Sat by Pulse Oximetry (%) 98 04/16/18 21:00 Cardiovascular: Yes: S1, S2 Respiratory: Yes: On Nasal O2, Rhonchi Gastrointestinal: Yes: Normal Bowel Sounds, Soft Labs: CBC, BMP 04/13/18 05:30 04/11/18 05:30 INR, PTT INR 1.18 (0.83-1.09) H 04/11/18 05:30 Fibrinogen > 500.0 mg/dL (238-498) H 04/10/18 13:15 Problem List - Problems (1) Lung cancer Assessment/Plan: -Awaiting bone scan results MRI head neg Dr Hathaway Spoke with pathology Path- reveals poorly differentiated carcinoma. Preliminary suggests squamous. Additional studies to confirm squamous etiology- pending. Patient informed of diagnosis of malignancy Spoke with Dr. Newton - option of placing stent -followed by staging patient and if localized disease consider combined RT/chemotherpay. If widespread mets- palliative RT and sequential chemotherapy. have asked for PDL-1evaluation. Code(s): C34.90 - MALIGNANT NEOPLASM OF UNSP PART OF UNSP BRONCHUS OR LUNG (2) Dyspnea Assessment/Plan: -Improving -on oxygen--CXR cardio and pulm eval noted dvt ppx incentive spirometry Code(s): R06.00 - DYSPNEA, UNSPECIFIED Qualifiers: Dyspnea type: dyspnea on exertion Qualified Code(s): R06.09 - Other forms of dyspnea (3) Afib Assessment/Plan: metoprolol eliquis on hold for biopsy Code(s): I48.91 - UNSPECIFIED ATRIAL FIBRILLATION (4) COPD (chronic obstructive pulmonary disease) Assessment/Plan: oxygen bronchodilators Code(s): J44.9 - CHRONIC OBSTRUCTIVE PULMONARY DISEASE, UNSPECIFIED Qualifiers: COPD type: unspecified COPD Qualified Code(s): J44.9 - Chronic obstructive pulmonary disease, unspecified (5) SVC syndrome Assessment/Plan: Pulm on board TS consult noted STENT IF DECOMPESATES Code(s): I87.1 - COMPRESSION OF VEIN
[2018-04-17] MEDS: SOTALOL HCL 80 MG TABLET (FP) PO SCH ×2 (10:42→21:44)
--- NOTE | 2018-04-17 10:43 | PN ---
Progress Note (short form) - Note Progress Note: Feels a little better today. No CP. Less SOB. Dizziness improving. Told about diagnosis of likely Squamous CA by primary team. Intake & Output 04/14/18 04/15/18 04/16/18 04/17/18 23:59 23:59 23:59 23:59 Intake Total 540 780 500 50 Output Total 502 550 200 Balance 38 230 300 50 Weight 192 lb Last Vital Signs Temp Pulse Resp BP Pulse Ox 98.1 F 84 24 H 103/64 98 04/16/18 16:42 04/17/18 06:00 04/17/18 06:00 04/17/18 02:00 04/16/18 21:00 Active Medications Acetaminophen (Tylenol -) 650 mg PO Q6H PRN PRN Reason: PAIN OR FEVER Last Admin: 04/15/18 18:05 Dose: 650 mg Apixaban (Eliquis -) 5 mg PO BID [facility] Last Admin: 04/16/18 22:10 Dose: 5 mg Diltiazem HCl (Cardizem Cd -) 180 mg PO DAILY [facility] Last Admin: 04/17/18 10:42 Dose: 180 mg Oxycodone HCl (Roxicodone -) 10 mg PO Q6H PRN PRN Reason: PAIN LEVEL 6-10 Last Admin: 04/16/18 22:11 Dose: 10 mg Sotalol HCl (Betapace -) 80 mg PO BID [facility] Last Admin: 04/17/18 10:42 Dose: 80 mg Tiotropium [place] (Spiriva Respimat) 2 puff IH DAILY [facility] Last Admin: 04/16/18 09:56 Dose: 2 puff Constitutional: Yes: NAD Eyes: Yes: Conjunctiva Clear, EOM Intact HENT: Yes: Atraumatic Neck: Yes: (-) JVD, Right neck fullness Cardiovascular: Yes: Regular Rate and Rhythm Respiratory: Yes: Diminished on the right ...Clubbing: Yes Gastrointestinal: Yes: Normal Bowel Sounds, Soft. No: Tenderness Edema: RUE swelling Labs: Problem List - Problems (1) SVC syndrome Code(s): I87.1 - COMPRESSION OF VEIN (2) COPD (chronic obstructive pulmonary disease) Code(s): J44.9 - CHRONIC OBSTRUCTIVE PULMONARY DISEASE, UNSPECIFIED (3) Hemoptysis Code(s): R04.2 - HEMOPTYSIS (4) Lung mass Code(s): R91.8 - OTHER NONSPECIFIC ABNORMAL FINDING OF LUNG FIELD (5) Smoker Code(s): F17.200 - NICOTINE DEPENDENCE, UNSPECIFIED, UNCOMPLICATED (6) Paroxysmal atrial fibrillation Code(s): I48.0 - PAROXYSMAL ATRIAL FIBRILLATION Assessment/Plan Squamous Cell CA SVC Syndrome due to Lung Mass COPD Emphysema Hemoptysis Paroxysmal Atrial Fibrillation on anticoagulation Smoker Suspected RLL atelectasis - AC with Eliquis - Rate control - Inhaled bronchodilators - Pain control per primary - smoking cessation discussed - Monitor UE/chest edema: improving Dr Jean
--- NOTE | 2018-04-17 12:05 | PN ---
Progress Note, Physician History of Present Illness: No further episodes of rapid afib after Cardizem CD added, he underwent lung mass biopsy, formal pathology confirms moderately differentiated squamous carcinoma. Facial and right UE swelling recurring despite a/c. - Current Medication List Current Medications: Active Medications Acetaminophen (Tylenol -) 650 mg PO Q6H PRN PRN Reason: PAIN OR FEVER Last Admin: 04/15/18 18:05 Dose: 650 mg Apixaban (Eliquis -) 5 mg PO BID [facility] Last Admin: 04/16/18 22:10 Dose: 5 mg Diltiazem HCl (Cardizem Cd -) 180 mg PO DAILY [facility] Last Admin: 04/17/18 10:42 Dose: 180 mg Oxycodone HCl (Roxicodone -) 10 mg PO Q6H PRN PRN Reason: PAIN LEVEL 6-10 Last Admin: 04/16/18 22:11 Dose: 10 mg Sotalol HCl (Betapace -) 80 mg PO BID [facility] Last Admin: 04/17/18 10:42 Dose: 80 mg Tiotropium [place] (Spiriva Respimat) 2 puff IH DAILY [facility] Last Admin: 04/16/18 09:56 Dose: 2 puff - Objective Vital Signs: Vital Signs Temperature 98.1 F 04/16/18 16:42 Pulse Rate 75 04/17/18 10:00 Respiratory Rate 18 04/17/18 10:00 Blood Pressure 112/66 04/17/18 10:00 O2 Sat by Pulse Oximetry (%) 98 04/17/18 09:00 Constitutional: Yes: No Distress, Calm, Thin Neck: Yes: Supple Cardiovascular: Yes: Regular Rate and Rhythm Respiratory: Yes: Regular, Diminished Gastrointestinal: Yes: Normal Bowel Sounds, Soft Edema: No Labs: CBC, BMP 04/13/18 05:30 04/11/18 05:30 INR, PTT INR 1.18 (0.83-1.09) H 04/11/18 05:30 Fibrinogen > 500.0 mg/dL (238-498) H 04/10/18 13:15 - ....Imaging EKG: Report Reviewed (Tele: NSR occ PAC) Problem List - Problems (1) COPD (chronic obstructive pulmonary disease) Code(s): J44.9 - CHRONIC OBSTRUCTIVE PULMONARY DISEASE, UNSPECIFIED Qualifiers: COPD type: unspecified COPD Qualified Code(s): J44.9 - Chronic obstructive pulmonary disease, unspecified (2) Dyspnea Code(s): R06.00 - DYSPNEA, UNSPECIFIED Qualifiers: Dyspnea type: dyspnea on exertion Qualified Code(s): R06.09 - Other forms of dyspnea (3) Hemoptysis Code(s): R04.2 - HEMOPTYSIS (4) Lung mass Code(s): R91.8 - OTHER NONSPECIFIC ABNORMAL FINDING OF LUNG FIELD (5) Paroxysmal atrial fibrillation Code(s): I48.0 - PAROXYSMAL ATRIAL FIBRILLATION (6) SVC syndrome Code(s): I87.1 - COMPRESSION OF VEIN (7) Smoker Code(s): F17.200 - NICOTINE DEPENDENCE, UNSPECIFIED, UNCOMPLICATED (8) Anticoagulant long-term use Code(s): 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) USE OF 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 Assessment/Plan 02/22/2018 Holter Monitor: SR with paroxysmal afib/flutter with aberrant conduction (RBBB morphology) 5.44% of time, frequent PAC, PVC 12/22/2017 Large irregular cavitary soft tissue mass involving right superior mediastinum in right to mid and superior hilar region suspicious for primary or secondary malignancy 04/07/2018 Large central RUL mass with invasion of mediastinum and adjacent consolidation/ATX RUL, distal SVC stenosis without obstruction with collateralization 03/11/2018 Echo: Normal LV and RV size and fxn with abnl LV compliance, mildly dilated ascending aorta, mild MR, TR. tr ND 03/29/2018 ETT Myoview: Negative maximal stress test for ischemia, LVEF 60% 04/14/2018 Brain MRI: No metastases 1. SVC Syndrome 2. 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 COPD/Emphysema 4. Palpitations, Paroxysmal Atrial Fibrillation->SR [id number] on anticoagulation 5. Diastolic LV dysfunction with class 0 NYHA classification LV failure 6. HTN/HCVD 7. Hep C post-treatment 8. Smoker Plan: 1. Continue Eliquis 5 bid will need to hold prior to procedure, formal pathology reviewed 2. Staging imaging, consider endovenous stent to improve venous drainage with hold a/c, combined RT/chemotherapy per oncology 3. Continue sotalol 80 bid, cardizem CD 180 qd 4. Inhaled bronchodilators, O2 as needed, smoking cessation
--- NOTE | 2018-04-17 14:42 | PN ---
Progress Note, Physician Chief Complaint: NSCLC c/b SVC syndrome History of Present Illness: Feels that he has somewhat more swelling in arms and face today. Became SOB after 4 mins of showering. Denies SOB at rest. - Current Medication List Current Medications: Active Medications Acetaminophen (Tylenol -) 650 mg PO Q6H PRN PRN Reason: PAIN OR FEVER Last Admin: 04/15/18 18:05 Dose: 650 mg Apixaban (Eliquis -) 5 mg PO BID [facility] Last Admin: 04/17/18 10:00 Dose: 5 mg Diltiazem HCl (Cardizem Cd -) 180 mg PO DAILY [facility] Last Admin: 04/17/18 10:42 Dose: 180 mg Oxycodone HCl (Roxicodone -) 10 mg PO Q6H PRN PRN Reason: PAIN LEVEL 6-10 Last Admin: 04/16/18 22:11 Dose: 10 mg Sotalol HCl (Betapace -) 80 mg PO BID [facility] Last Admin: 04/17/18 10:42 Dose: 80 mg Tiotropium [place] (Spiriva Respimat) 2 puff IH DAILY [facility] Last Admin: 04/17/18 10:00 Dose: 2 puff - Objective Vital Signs: Vital Signs Temperature 98.1 F 04/16/18 16:42 Pulse Rate 75 04/17/18 10:00 Respiratory Rate 18 04/17/18 10:00 Blood Pressure 112/66 04/17/18 10:00 O2 Sat by Pulse Oximetry (%) 98 04/17/18 09:00 Constitutional: Yes: No Distress Eyes: No: Sclera Icterus HENT: Yes: Other (+facial swelling). No: Hoarseness Neck: No: Lymphadenopathy Cardiovascular: Yes: Regular Rate and Rhythm Respiratory: Yes: CTA Bilaterally Gastrointestinal: Yes: Soft. No: Distention, Tenderness Edema: LUE: 1+, RUE: 1+ Neurological: Yes: Alert, Oriented Psychiatric: Yes: WNL Labs: CBC, BMP 04/13/18 05:30 04/11/18 05:30 INR, PTT INR 1.18 (0.83-1.09) H 04/11/18 05:30 Fibrinogen > 500.0 mg/dL (238-498) H 04/10/18 13:15 Assessment/Plan 62M with COPD, Afib on Eliqus and newly diagnoses squamous cell ca of lung c/b SVC syndrome. Awaiting placement of stent with plan for subsequent chemo/RT. C/ w close monitoring of respiratory/volume status.
[2018-04-17] MEDS: oxyCODONE HCL 5 MG TABLET PO PRN (16:08)
[2018-04-18] MEDS: oxyCODONE HCL 5 MG TABLET PO PRN ×3 (00:45→23:22)
[2018-04-18] MEDS: SOTALOL HCL 80 MG TABLET (FP) PO SCH ×2 (09:40→21:13)
[2018-04-18] MEDS: APIXABAN 5 MG TABLET PO SCH ×2 (09:41→21:13)
[2018-04-18] MEDS: ACETAMINOPHEN 325 MG TABLET (FP) PO PRN ×2 (09:41→23:23)
[2018-04-18] MEDS: TIOTROPIUM BROMIDE 2.5 MCG (SPIRIVA) RESPIMAT INHALER IH SCH (09:45)
--- NOTE | 2018-04-18 10:00 | PN ---
Progress Note, Physician History of Present Illness: No further episodes of rapid afib after Cardizem CD added, he underwent lung mass biopsy, formal pathology confirms moderately differentiated squamous carcinoma. Facial and right UE swelling recurring with increased plethora and atypical chest pain despite a/c. - Current Medication List Current Medications: Active Medications Acetaminophen (Tylenol -) 650 mg PO Q6H PRN PRN Reason: PAIN OR FEVER Last Admin: 04/18/18 09:41 Dose: 650 mg Apixaban (Eliquis -) 5 mg PO BID [facility] Last Admin: 04/18/18 09:41 Dose: 5 mg Diltiazem HCl (Cardizem Cd -) 180 mg PO DAILY [facility] Last Admin: 04/18/18 09:40 Dose: 180 mg Oxycodone HCl (Roxicodone -) 10 mg PO Q6H PRN PRN Reason: PAIN LEVEL 6-10 Last Admin: 04/18/18 09:42 Dose: 10 mg Sotalol HCl (Betapace -) 80 mg PO BID [facility] Last Admin: 04/18/18 09:40 Dose: 80 mg Tiotropium [place] (Spiriva Respimat) 2 puff IH DAILY [facility] Last Admin: 04/18/18 09:45 Dose: 2 puff - Objective Vital Signs: Vital Signs Temperature 98.4 F 04/18/18 06:00 Pulse Rate 83 04/18/18 08:00 Respiratory Rate 23 H 04/18/18 08:00 Blood Pressure 101/70 04/18/18 08:00 O2 Sat by Pulse Oximetry (%) 95 04/18/18 08:08 Constitutional: Yes: No Distress, Calm Neck: Yes: Supple Cardiovascular: Yes: Regular Rate and Rhythm Respiratory: Yes: Regular, CTA Bilaterally Gastrointestinal: Yes: Normal Bowel Sounds, Soft Edema: No Labs: CBC, BMP 04/13/18 05:30 04/11/18 05:30 INR, PTT INR 1.18 (0.83-1.09) H 04/11/18 05:30 Fibrinogen > 500.0 mg/dL (238-498) H 04/10/18 13:15 - ....Imaging EKG: Report Reviewed (Tele: SR no PAF) Problem List - Problems (1) COPD (chronic obstructive pulmonary disease) Code(s): J44.9 - CHRONIC OBSTRUCTIVE PULMONARY DISEASE, UNSPECIFIED Qualifiers: COPD type: unspecified COPD Qualified Code(s): J44.9 - Chronic obstructive pulmonary disease, unspecified (2) Dyspnea Code(s): R06.00 - DYSPNEA, UNSPECIFIED Qualifiers: Dyspnea type: dyspnea on exertion Qualified Code(s): R06.09 - Other forms of dyspnea (3) Hemoptysis Code(s): R04.2 - HEMOPTYSIS (4) Lung mass Code(s): R91.8 - OTHER NONSPECIFIC ABNORMAL FINDING OF LUNG FIELD (5) Paroxysmal atrial fibrillation Code(s): I48.0 - PAROXYSMAL ATRIAL FIBRILLATION (6) SVC syndrome Code(s): I87.1 - COMPRESSION OF VEIN (7) Smoker Code(s): F17.200 - NICOTINE DEPENDENCE, UNSPECIFIED, UNCOMPLICATED (8) Anticoagulant long-term use Code(s): Z79.01 - LONG-TERM (CURRENT) USE OF 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 Assessment/Plan 02/22/2018 Holter Monitor: SR with paroxysmal afib/flutter with aberrant conduction (RBBB morphology) 5.44% of time, frequent PAC, PVC 12/22/2017 Large irregular cavitary soft tissue mass involving right superior mediastinum in right to mid and superior hilar region suspicious for primary or secondary malignancy 04/07/2018 Large central RUL mass with invasion of mediastinum and adjacent consolidation/ATX RUL, distal SVC stenosis without obstruction with collateralization 03/11/2018 Echo: Normal LV and RV size and fxn with abnl LV compliance, mildly dilated ascending aorta, mild MR, TR. tr [place] 03/29/2018 ETT Myoview: Negative maximal stress test for ischemia, LVEF 60% 04/14/2018 Brain MRI: No metastases 1. SVC Syndrome 2. 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 COPD/Emphysema 4. Palpitations, Paroxysmal Atrial Fibrillation->SR [id number] on anticoagulation 5. Diastolic LV dysfunction with class 0 NYHA classification LV failure 6. HTN/HCVD 7. Hep C post-treatment 8. Smoker Plan: 1. Continue Eliquis 5 bid will need to hold prior to procedure, formal pathology reviewed 2. Staging imaging reviewed, plan for endovenous stent to improve venous drainage with hold a/c, combined RT/chemotherapy per oncology 3. Continue sotalol 80 bid, cardizem CD 180 qd 4. Inhaled bronchodilators, O2 as needed, smoking cessation
--- NOTE | 2018-04-18 10:30 | PN ---
Physical Exam: SUBJECTIVE: Patient seen and examined at bedside. No overnight events. Complaining of some chest pain. Swelling in coming back. Denies MACKEY, abdominal pain , palpitations, nausea or vomiting. OBJECTIVE: Vital Signs Period Temp Pulse Resp BP Sys/Gtz Pulse Ox Last 24 Hr 98.4 F-98.6 F 70-83 18-23 98-104/52-72 95-98 GENERAL: AAOx3, NAD HEAD: NCAT EYES: PERRLA, EOMI, sclera anicteric, conjunctiva clear. No lid lag. EARS, NOSE, THROAT: Moist mucous membranes. NECK: Normal range of motion, supple with no LAD LUNGS: decreased breath sounds bilaterally,minimal BS of right lung ; scattered rhonchi. No accessory muscle use. HEART: RRR, normal S1 and S2 without murmur, rub or gallop. ABDOMEN: Soft, NTND,NABS, no guarding, no rebound, no masses. No hepatomegaly or splenomegaly. UPPER EXTREMITIES: 2+ pulses, warm, well-perfused. No cyanosis. No clubbing. R arm edema worsening. LOWER EXTREMITIES: 2+ pulses, warm, well-perfused. No calf tenderness. No peripheral edema. NEUROLOGICAL: no focal deficits. PSYCHIATRIC: Appropriate mood and affect. Active Medications Generic Name Dose Route Start Last Admin Trade Name Freq PRN Reason Stop Dose Admin Acetaminophen 650 mg 04/09/18 12:59 04/18/18 09:41 Tylenol - PO 650 mg Q6H PRN Administration PAIN OR FEVER Apixaban 5 mg 04/13/18 22:00 04/18/18 09:41 Eliquis - PO 5 mg BID ALONDRA Administration Diltiazem HCl 180 mg 04/10/18 10:00 04/18/18 09:40 Cardizem Cd - PO 180 mg DAILY ALONDRA Administration Oxycodone HCl 10 mg 04/16/18 10:29 04/18/18 09:42 Roxicodone - PO 10 mg Q6H PRN Administration PAIN LEVEL 6-10 Sotalol HCl 80 mg 04/08/18 19:00 04/18/18 09:40 Betapace - PO 80 mg BID ALONDRA Administration Tiotropium [place] 2 puff 04/08/18 10:00 04/18/18 09:45 Spiriva Respimat IH 2 puff DAILY ALONDRA Administration ASSESSMENT/PLAN: 62 yo male with PMHx of COPD, paroxysmal atrial fibrillation (AC-Eliquis), known lung mass 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 Admitted for SVC syndrome found be 2/2 poorly differentiated squamous carcinoma of lung. Problem List - Problems (1) SVC syndrome Assessment/Plan: At this time breathing is not compromised * Pathology shows poorly differentiated squamous carcinoma; PDL-1 result pending. * Head MRI show no lesions. * Plan for stent placement with IR * Edema worsening. * On Eliquis will need to hold for 48 hrs prior to STENT. * minimal O2 requirements. goods sats on 2L NC * Incentive spirometry. (2) COPD (chronic obstructive pulmonary disease) Assessment/Plan: * Supplemental O2 PRN * maintain SpO2 >90% * Tiotropium [place] (Spiriva Respimat) 2 puff IH DAILY Visit type - Emergency Visit Emergency Visit: Yes ED Registration Date: 04/07/18 Care time: The patient presented to the Emergency Department on the above date and was hospitalized for further evaluation of their emergent condition. - New Patient This patient is new to me today: No - Critical Care Critical Care patient: No - Discharge Referral Referred to [facility] Med P.C.: No
--- NOTE | 2018-04-18 10:32 | PN ---
Progress Note, Physician Chief Complaint: patient seen and examined on telemetry floor says his facial and arm swelling is recurring also states chest discomfort on right side when he breaths on telemetry sinus rhythm on the monitor - Current Medication List Current Medications: Active Medications Acetaminophen (Tylenol -) 650 mg PO Q6H PRN PRN Reason: PAIN OR FEVER Last Admin: 04/18/18 09:41 Dose: 650 mg Apixaban (Eliquis -) 5 mg PO BID [facility] Last Admin: 04/18/18 09:41 Dose: 5 mg Diltiazem HCl (Cardizem Cd -) 180 mg PO DAILY [facility] Last Admin: 04/18/18 09:40 Dose: 180 mg Oxycodone HCl (Roxicodone -) 10 mg PO Q6H PRN PRN Reason: PAIN LEVEL 6-10 Last Admin: 04/18/18 09:42 Dose: 10 mg Sotalol HCl (Betapace -) 80 mg PO BID [facility] Last Admin: 04/18/18 09:40 Dose: 80 mg Tiotropium [place] (Spiriva Respimat) 2 puff IH DAILY [facility] Last Admin: 04/18/18 09:45 Dose: 2 puff - Objective Vital Signs: Vital Signs Temperature 98.4 F 04/18/18 06:00 Pulse Rate 83 04/18/18 08:00 Respiratory Rate 23 H 04/18/18 08:00 Blood Pressure 101/70 04/18/18 08:00 O2 Sat by Pulse Oximetry (%) 95 04/18/18 08:08 Constitutional: Yes: Calm HENT: Yes: Other (facial swelling) Neck: Yes: Trachea Midline Cardiovascular: Yes: Regular Rate and Rhythm, S1, S2 Respiratory: Yes: Diminished (on right side) Gastrointestinal: Yes: Normal Bowel Sounds, Soft Edema: No Neurological: Yes: Alert, Oriented Labs: CBC, BMP 04/13/18 05:30 04/11/18 05:30 INR, PTT INR 1.18 (0.83-1.09) H 04/11/18 05:30 Fibrinogen > 500.0 mg/dL (238-498) H 04/10/18 13:15 Problem List - Problems (1) Dyspnea Assessment/Plan: 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 oncology and RT on board IR to do endovenous stent placement for venous drainage prior to RT- deepika will need to be held call placed to IR and left message for dr lynne to call me back Code(s): R06.00 - DYSPNEA, UNSPECIFIED Qualifiers: Dyspnea type: dyspnea on exertion Qualified Code(s): R06.09 - Other forms of dyspnea (2) Lung mass Assessment/Plan: brain MRI negative boen scan pending biopsy shows Code(s): R91.8 - OTHER NONSPECIFIC ABNORMAL FINDING OF LUNG FIELD (3) Afib Assessment/Plan: currently NSR On monitior eliquis will need to be held prior to stent placement sotalol and cardizem Code(s): I48.91 - UNSPECIFIED ATRIAL FIBRILLATION (4) COPD (chronic obstructive pulmonary disease) Assessment/Plan: oxygen bronchodilators Code(s): J44.9 - CHRONIC OBSTRUCTIVE PULMONARY DISEASE, UNSPECIFIED Qualifiers: COPD type: unspecified COPD Qualified Code(s): J44.9 - Chronic obstructive pulmonary disease, unspecified
--- NOTE | 2018-04-18 13:48 | PN ---
Progress Note (short form) - Note Progress Note: PULMONARY Occasional shortness of breath and chest discomfort. Vital Signs Period Temp Pulse Resp BP Sys/Gtz Pulse Ox Last 24 Hr 98.4 F-98.6 F 70-83 18-23 98-104/52-72 95-98 Gen: NAD at rest Heart: RRR Lung: decreased breath sounds, bronchial breath sounds right Abd: soft, nontender Ext: UE edema CBC, BMP 04/13/18 05:30 04/11/18 05:30 Active Medications Acetaminophen (Tylenol -) 650 mg PO Q6H PRN PRN Reason: PAIN OR FEVER Last Admin: 04/18/18 09:41 Dose: 650 mg Apixaban (Eliquis -) 5 mg PO BID [facility] Last Admin: 04/18/18 09:41 Dose: 5 mg Diltiazem HCl (Cardizem Cd -) 180 mg PO DAILY [facility] Last Admin: 04/18/18 09:40 Dose: 180 mg Oxycodone HCl (Roxicodone -) 10 mg PO Q6H PRN PRN Reason: PAIN LEVEL 6-10 Last Admin: 04/18/18 09:42 Dose: 10 mg Sotalol HCl (Betapace -) 80 mg PO BID [facility] Last Admin: 04/18/18 09:40 Dose: 80 mg Tiotropium [place] (Spiriva Respimat) 2 puff IH DAILY [facility] Last Admin: 04/18/18 09:45 Dose: 2 puff A/P Newly Diagnosed Lung Cancer SVC Syndrome COPD Emphysema Hemoptysis Paroxysmal Atrial Fibrillation on anticoagulation Smoker Suspected RLL atelectasis - for SVC stent placement - incentive spirometry - rate control - inhaled bronchodilators - chemo/RT post SVC stent placement Problem List - Problems (1) SVC syndrome Code(s): I87.1 - COMPRESSION OF VEIN (2) COPD (chronic obstructive pulmonary disease) Code(s): J44.9 - CHRONIC OBSTRUCTIVE PULMONARY DISEASE, UNSPECIFIED Qualifiers: COPD type: unspecified COPD Qualified Code(s): J44.9 - Chronic obstructive pulmonary disease, unspecified (3) Hemoptysis Code(s): R04.2 - HEMOPTYSIS (4) Smoker Code(s): F17.200 - NICOTINE DEPENDENCE, UNSPECIFIED, UNCOMPLICATED (5) Paroxysmal atrial fibrillation Code(s): I48.0 - PAROXYSMAL ATRIAL FIBRILLATION
--- NOTE | 2018-04-18 22:10 | PN ---
Progress Note (short form) - Note Progress Note: PAtient seen and examined swelling of face and RUE AFVSS Cor: RSR, No murmurs, No gallops Lungs: Clear to P&A Abd: Soft, Normal bowel sounds, No organomegaly Ext:No significant edema A/P 62-year-old male with a history of cigarette smoking, COPD, hypertension, recently diagnosed atrial fibrillation (on Eliquis) and known lung nodule for 20 years. He was scheduled for bronchoscopy in February, but was noted to have new atrial fibrillation at the time of the procedure, so it was deferred. Since that time, he has had worsening symptoms, including dyspnea on minimal exertion and with laying flat (he reports that he now has to sleep upright) and cough with occasional hemoptysis . He presents with worsening dyspnea and new upper extremity edema. He is referred for suspicion of possible SVC syndrome. CT imaging shows large central right upper lobe mass causing narrowing of SVC. Marked narrowing of distal SVC. Preliminary path c/w --poorly differentiated carcinoma MRI brain/bone scan neative for svc stent placement to hold eliquis based on timing of stent placement chemo/RT as outpatient
--- NOTE | 2018-04-19 06:30 | PN ---
Progress Note (short form) - Note Progress Note: Chief Complaint: Events noted, notes reviewed, dyspnea persists but continues to improve, denies any chest pain, remains in sinus rhythm History of Present Illness: Seen and examined on telemetry. Events noted, notes reviewed, dyspnea persists but continues to improve, denies any chest pain, remains in sinus rhythm Plan to proceed with SVC stent insertion prior to initiation of radiation therapy Holter monitor dated 02/22/2018 revealed sinus rhythm with paroxysmal atrial fibrillation/atrial flutter with aberrant conduction (RBBB morphology) 5.44% of time, frequent PAC's, PVC's CT scan of the chest dated 12/22/2017 Large irregular cavitary soft tissue mass involving right superior mediastinum in right to mid and superior hilar region suspicious for primary or secondary malignancy CT scan of the chest dated 04/07/2018 Large central RUL mass with invasion of mediastinum and adjacent consolidation/ATX RUL, distal SVC stenosis without obstruction with collateralization Echocardiograohy dated 03/11/2018 Normal LV and RV size and fxn with abnl LV compliance, mildly dilated ascending aorta, mild MR, TR. tr PA MPI study dated 03/29/2018 Negative maximal stress test for ischemia, LVEF 60% Medications: Current Medications Acetaminophen (Tylenol -) 650 mg PO Q6H PRN PRN Reason: PAIN OR FEVER Last Admin: 04/18/18 23:23 Dose: 650 mg Apixaban (Eliquis -) 5 mg PO BID [facility] Last Admin: 04/18/18 21:13 Dose: 5 mg Diltiazem HCl (Cardizem Cd -) 180 mg PO DAILY [facility] Last Admin: 04/18/18 09:40 Dose: 180 mg Oxycodone HCl (Roxicodone -) 10 mg PO Q6H PRN PRN Reason: PAIN LEVEL 6-10 Last Admin: 04/18/18 23:22 Dose: 10 mg Sotalol HCl (Betapace -) 80 mg PO BID [facility] Last Admin: 04/18/18 21:13 Dose: 80 mg Tiotropium [place] (Spiriva Respimat) 2 puff IH DAILY [facility] Last Admin: 04/18/18 09:45 Dose: 2 puff Review of Systems - Review of Systems Constitutional: no symptoms reported Respiratory: reports Cough and Intermittent Hemoptysis Cardiovascular: as noted above Gastrointestinal: denies Nausea, Vomiting, Diarrhea, Constipation or Abdominal Pain Genitourinary: no symptoms reported Musculoskeletal: no symptoms reported Endocrine: no symptoms reported Vital Signs: Last Vital Signs Temp Pulse Resp BP Pulse Ox 98.6 F 70 16 99/48 L 95 04/19/18 06:00 04/19/18 06:00 04/19/18 06:00 04/19/18 06:00 04/18/18 20:08 Intake & Output 04/16/18 04/17/18 04/18/18 04/19/18 23:59 23:59 23:59 23:59 Intake Total 500 600 100 50 Output Total 200 400 Balance 300 200 100 50 Neck: Supple Negative JVD Respiratory: Bilateral Scattered Rhonchi Cardiovascular: S1 S2 Regular Rate and Rhythm Gastrointestinal: Soft Benign Normal Bowel Sounds Ext: Negative Edema Labs: CBC, BMP 04/13/18 05:30 04/11/18 05:30 Hepatic Panel Total Bilirubin 0.5 mg/dL (0.2-1) 04/11/18 05:30 AST 14 U/L (15-37) L 04/11/18 05:30 ALT 17 U/L (13-61) 04/11/18 05:30 Alkaline Phosphatase 64 U/L (45-117) 04/11/18 05:30 Albumin 3.3 g/dl (3.4-5.0) L 04/11/18 05:30 Assessment/Plan ASSESSMENT: 1. SVC Syndrome related to to mediastinal mass, 2. RUL Lung Mass with hemoptysis, moderately differentiated squamous cell carcinoma 3. COPD/Emphysema 4. Paroxysmal Atrial Fibrillation/paroxysmal atrial flutter [id number] score of 1 on anticoagulation, on Eliquis (to be held for planned procedure/stent) 5. Diastolic LV dysfunction with class 0 NYHA classification LV failure 6. HTN/HCVD 7. Hepatitis C post-treatment 8. Smoker PLAN: 1. Hold Eliquis pending procedure 2. Continue Betapace with close monitoring of QTc interval 3. Continue Cardizem CD and titrate dosage as tolerated and as needed 4. No absolute contraindications in proceeding with planned procedure/SVC stent insertion Mary Lou Coffey M.D.
[2018-04-19] MEDS: ACETAMINOPHEN 325 MG TABLET (FP) PO PRN ×2 (10:37→17:36)
[2018-04-19] MEDS: SOTALOL HCL 80 MG TABLET (FP) PO SCH ×2 (10:38→21:41)
[2018-04-19] MEDS: TIOTROPIUM BROMIDE 2.5 MCG (SPIRIVA) RESPIMAT INHALER IH SCH (10:39)
--- NOTE | 2018-04-19 10:42 | PN ---
Progress Note, Physician Chief Complaint: patient is awaiting SVC stent placement eliquis on hold - Current Medication List Current Medications: Active Medications Acetaminophen (Tylenol -) 650 mg PO Q6H PRN PRN Reason: PAIN OR FEVER Last Admin: 04/18/18 23:23 Dose: 650 mg Diltiazem HCl (Cardizem Cd -) 180 mg PO DAILY [facility] Last Admin: 04/18/18 09:40 Dose: 180 mg Oxycodone HCl (Roxicodone -) 10 mg PO Q6H PRN PRN Reason: PAIN LEVEL 6-10 Last Admin: 04/18/18 23:22 Dose: 10 mg Sotalol HCl (Betapace -) 80 mg PO BID [facility] Last Admin: 04/18/18 21:13 Dose: 80 mg Tiotropium [place] (Spiriva Respimat) 2 puff IH DAILY [facility] Last Admin: 04/18/18 09:45 Dose: 2 puff - Objective Vital Signs: Vital Signs Temperature 98.6 F 04/19/18 06:00 Pulse Rate 70 04/19/18 06:00 Respiratory Rate 16 04/19/18 06:00 Blood Pressure 99/48 L 04/19/18 06:00 O2 Sat by Pulse Oximetry (%) 95 04/18/18 20:08 Constitutional: Yes: Calm HENT: Yes: Other (facial swelling) Cardiovascular: Yes: Regular Rate and Rhythm, S1, S2 Respiratory: Yes: Diminished, On Nasal O2 Gastrointestinal: Yes: Normal Bowel Sounds, Soft Edema: No Neurological: Yes: Alert, Oriented Labs: CBC, BMP 04/13/18 05:30 04/11/18 05:30 INR, PTT INR 1.18 (0.83-1.09) H 04/11/18 05:30 Fibrinogen > 500.0 mg/dL (238-498) H 04/10/18 13:15 Problem List - Problems (1) Dyspnea Assessment/Plan: 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 oncology and RT on board IR to do endovenous stent placement for venous drainage prior to RT- eliquis on hold oxygen - humidified Code(s): R06.00 - DYSPNEA, UNSPECIFIED Qualifiers: Dyspnea type: dyspnea on exertion Qualified Code(s): R06.09 - Other forms of dyspnea (2) Lung mass Assessment/Plan: brain MRI negative bone scan negative biopsy shows moderately differentiated squamous cell carcinoma Code(s): R91.8 - OTHER NONSPECIFIC ABNORMAL FINDING OF LUNG FIELD (3) Afib Assessment/Plan: currently NSR On monitior eliquis on hold for stent placement sotalol and cardizem Code(s): I48.91 - UNSPECIFIED ATRIAL FIBRILLATION (4) COPD (chronic obstructive pulmonary disease) Assessment/Plan: oxygen bronchodilators Code(s): J44.9 - CHRONIC OBSTRUCTIVE PULMONARY DISEASE, UNSPECIFIED Qualifiers: COPD type: unspecified COPD Qualified Code(s): J44.9 - Chronic obstructive pulmonary disease, unspecified
--- NOTE | 2018-04-19 13:20 | PN ---
Progress Note (short form) - Note Progress Note: PULMONARY Clinically unchanged. Occasional shortness of breath and chest discomfort. Vital Signs Period Temp Pulse Resp BP Sys/Gtz Pulse Ox Last 24 Hr 97.7 F-98.7 F 70-82 16-21 92-115/44-63 95-95 Intake & Output 04/16/18 04/17/18 04/18/18 04/19/18 23:59 23:59 23:59 23:59 Intake Total 500 600 100 50 Output Total 200 400 Balance 300 200 100 50 Gen: NAD at rest Heart: RRR Lung: decreased breath sounds, bronchial breath sounds right Abd: soft, nontender Ext: UE edema CBC, BMP 04/13/18 05:30 04/11/18 05:30 Active Medications Acetaminophen (Tylenol -) 650 mg PO Q6H PRN PRN Reason: PAIN OR FEVER Last Admin: 04/19/18 10:37 Dose: 650 mg Diltiazem HCl (Cardizem Cd -) 180 mg PO DAILY [facility] Last Admin: 04/19/18 10:37 Dose: 180 mg Oxycodone HCl (Roxicodone -) 10 mg PO Q6H PRN PRN Reason: PAIN LEVEL 6-10 Last Admin: 04/18/18 23:22 Dose: 10 mg Sotalol HCl (Betapace -) 80 mg PO BID [facility] Last Admin: 04/19/18 10:38 Dose: 80 mg Tiotropium [place] (Spiriva Respimat) 2 puff IH DAILY [facility] Last Admin: 04/19/18 10:39 Dose: 2 puff A/P Newly Diagnosed Lung Cancer SVC Syndrome COPD Emphysema Hemoptysis Paroxysmal Atrial Fibrillation on anticoagulation Smoker Suspected RLL atelectasis - for SVC stent placement - incentive spirometry - rate control - inhaled bronchodilators - chemo/RT post SVC stent placement Problem List - Problems (1) SVC syndrome Code(s): I87.1 - COMPRESSION OF VEIN (2) COPD (chronic obstructive pulmonary disease) Code(s): J44.9 - CHRONIC OBSTRUCTIVE PULMONARY DISEASE, UNSPECIFIED Qualifiers: COPD type: unspecified COPD Qualified Code(s): J44.9 - Chronic obstructive pulmonary disease, unspecified (3) Hemoptysis Code(s): R04.2 - HEMOPTYSIS (4) Smoker Code(s): F17.200 - NICOTINE DEPENDENCE, UNSPECIFIED, UNCOMPLICATED (5) Paroxysmal atrial fibrillation Code(s): I48.0 - PAROXYSMAL ATRIAL FIBRILLATION
--- NOTE | 2018-04-19 14:06 | PN ---
Progress Note (short form) - Note Progress Note: Radiation Oncology Remains clinically stable with SVC compression from NSCLC. MRI brain/BS neg for mets. Agree with endovascular stent prior to initiation of tx. Will plan concurrent RT and chemo once outpt.
[2018-04-19] MEDS: oxyCODONE HCL 5 MG TABLET PO PRN (21:40)
[2018-04-20] MEDS: ACETAMINOPHEN 325 MG TABLET (FP) PO PRN ×2 (06:04→18:43)
--- NOTE | 2018-04-20 06:49 | PN ---
Progress Note (short form) - Note Progress Note: Patient seen and examined No chest pains Minimal SOB Last Vital Signs Temp Pulse Resp BP Pulse Ox 98.9 F 74 8 L 106/62 96 04/20/18 02:00 04/20/18 06:00 04/20/18 06:00 04/20/18 06:00 04/19/18 19:27 HEENT: ROSARIO, EOM Intact Oropharynx: No thrush, No mucositis,edentulous Cor: RSR, No murmurs, No gallops Lungs: diminished breath sounds RUL anteriorly Abd: Soft, Normal bowel sounds, No organomegaly Ext:No significant edema-LE; RUE edema Skin: No rashes, Integument intact,clubbing CBC, BMP 04/13/18 05:30 04/11/18 05:30 INR, PTT INR 1.18 (0.83-1.09) H 04/11/18 05:30 Fibrinogen > 500.0 mg/dL (238-498) H 04/10/18 13:15 Current Medications Generic Name Dose Route Start Last Admin Trade Name Freq PRN Reason Stop Dose Admin Acetaminophen 650 mg 04/09/18 12:59 04/20/18 06:04 Tylenol - PO 650 mg Q6H PRN Administration PAIN OR FEVER Diltiazem HCl 180 mg 04/10/18 10:00 04/19/18 10:37 Cardizem Cd - PO 180 mg DAILY ALONDRA Administration Oxycodone HCl 10 mg 04/16/18 10:29 04/19/18 21:40 Roxicodone - PO 10 mg Q6H PRN Administration PAIN LEVEL 6-10 Sotalol HCl 80 mg 04/08/18 19:00 04/19/18 21:41 Betapace - PO 80 mg BID ALONDRA Administration Tiotropium [place] 2 puff 04/08/18 10:00 04/19/18 10:39 Spiriva Respimat IH 2 puff DAILY ALONDRA Administration Impression: Squamous Ce;ll ca SVC syndrome For stent placement RT/Chemotherpy in future planned Outpatient PET would also be beneficial
--- NOTE | 2018-04-20 08:10 | PN ---
Progress Note, Physician - Current Medication List Current Medications: Active Medications Acetaminophen (Tylenol -) 650 mg PO Q6H PRN PRN Reason: PAIN OR FEVER Last Admin: 04/20/18 06:04 Dose: 650 mg Diltiazem HCl (Cardizem Cd -) 180 mg PO DAILY [facility] Last Admin: 04/19/18 10:37 Dose: 180 mg Oxycodone HCl (Roxicodone -) 10 mg PO Q6H PRN PRN Reason: PAIN LEVEL 6-10 Last Admin: 04/19/18 21:40 Dose: 10 mg Sotalol HCl (Betapace -) 80 mg PO BID [facility] Last Admin: 04/19/18 21:41 Dose: 80 mg Tiotropium [place] (Spiriva Respimat) 2 puff IH DAILY [facility] Last Admin: 04/19/18 10:39 Dose: 2 puff - Objective Vital Signs: Vital Signs Temperature 98.9 F 04/20/18 02:00 Pulse Rate 72 04/20/18 07:40 Respiratory Rate 18 04/20/18 07:40 Blood Pressure 98/67 04/20/18 07:40 O2 Sat by Pulse Oximetry (%) 96 04/20/18 07:56 Cardiovascular: Yes: Regular Rate and Rhythm Respiratory: Yes: Regular, CTA Bilaterally Gastrointestinal: Yes: Normal Bowel Sounds, Soft Labs: CBC, BMP 04/13/18 05:30 04/11/18 05:30 INR, PTT INR 1.18 (0.83-1.09) H 04/11/18 05:30 Fibrinogen > 500.0 mg/dL (238-498) H 04/10/18 13:15 Problem List - Problems (1) Lung cancer Code(s): C34.90 - MALIGNANT NEOPLASM OF UNSP PART OF UNSP BRONCHUS OR LUNG (2) Dyspnea Code(s): R06.00 - DYSPNEA, UNSPECIFIED Qualifiers: Dyspnea type: dyspnea on exertion Qualified Code(s): R06.09 - Other forms of dyspnea (3) Afib Code(s): I48.91 - UNSPECIFIED ATRIAL FIBRILLATION (4) COPD (chronic obstructive pulmonary disease) Code(s): J44.9 - CHRONIC OBSTRUCTIVE PULMONARY DISEASE, UNSPECIFIED Qualifiers: COPD type: unspecified COPD Qualified Code(s): J44.9 - Chronic obstructive pulmonary disease, unspecified (5) SVC syndrome Code(s): I87.1 - COMPRESSION OF VEIN Assessment/Plan - Problems (1) Dyspnea Assessment/Plan: 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 oncology and RT on board IR to do endovenous stent placement for venous drainage prior to RT- eliquis on hold oxygen - humidified Code(s): R06.00 - DYSPNEA, UNSPECIFIED Qualifiers: Dyspnea type: dyspnea on exertion Qualified Code(s): R06.09 - Other forms of dyspnea (2) Lung mass Assessment/Plan: brain MRI negative bone scan negative biopsy shows moderately differentiated squamous cell carcinoma Code(s): R91.8 - OTHER NONSPECIFIC ABNORMAL FINDING OF LUNG FIELD (3) Afib Assessment/Plan: currently NSR On monitior eliquis on hold for stent placement sotalol and cardizem Code(s): I48.91 - UNSPECIFIED ATRIAL FIBRILLATION (4) COPD (chronic obstructive pulmonary disease) Assessment/Plan: oxygen bronchodilators Code(s): J44.9 - CHRONIC OBSTRUCTIVE PULMONARY DISEASE, UNSPECIFIED Qualifiers: COPD type: unspecified COPD Qualified Code(s): J44.9 - Chronic obstructive pulmonary disease, unspecified
[2018-04-20] MEDS ORDERED: PT OWN MED DRAWER 7, Y5N ONE (08:23)
[2018-04-20] MEDS: SOTALOL HCL 80 MG TABLET (FP) PO SCH ×2 (09:02→22:22)
[2018-04-20] MEDS: TIOTROPIUM BROMIDE 2.5 MCG (SPIRIVA) RESPIMAT INHALER IH SCH (09:08)
--- NOTE | 2018-04-20 11:13 | PN ---
Physical Exam: SUBJECTIVE: Patient seen and examined at bedside. No new complaints. No overnight events. Breathing is better. Walking around ICU. Denies MACKEY, abdominal pain , palpitations, nausea or vomiting. OBJECTIVE: Vital Signs Period Temp Pulse Resp BP Sys/Gtz Pulse Ox Last 24 Hr 97.4 F-98.9 F 72-81 8-18 93-115/62-82 96-96 GENERAL: AAOx3, NAD HEAD: NCAT EYES: PERRLA, EOMI, sclera anicteric, conjunctiva clear. No lid lag. EARS, NOSE, THROAT: Moist mucous membranes. NECK: Normal range of motion, supple with no LAD LUNGS: decreased breath sounds bilaterally (improved) better air entry in R lung field. minimal rhonchi. No accessory muscle use. HEART: RRR, normal S1 and S2 without murmur, rub or gallop. ABDOMEN: Soft, NTND,NABS, no guarding, no rebound, no masses. No hepatomegaly or splenomegaly. UPPER EXTREMITIES: 2+ pulses, warm, well-perfused. No cyanosis. No clubbing. R arm edema LOWER EXTREMITIES: 2+ pulses, warm, well-perfused. No calf tenderness. No peripheral edema. NEUROLOGICAL: no focal deficits. PSYCHIATRIC: Appropriate mood and affect. Active Medications Generic Name Dose Route Start Last Admin Trade Name Freq PRN Reason Stop Dose Admin Acetaminophen 650 mg 04/09/18 12:59 04/20/18 06:04 Tylenol - PO 650 mg Q6H PRN Administration PAIN OR FEVER Diltiazem HCl 180 mg 04/10/18 10:00 04/20/18 09:02 Cardizem Cd - PO 180 mg DAILY ALONDRA Administration Oxycodone HCl 10 mg 04/16/18 10:29 04/19/18 21:40 Roxicodone - PO 10 mg Q6H PRN Administration PAIN LEVEL 6-10 Sotalol HCl 80 mg 04/08/18 19:00 04/20/18 09:02 Betapace - PO 80 mg BID ALONDRA Administration Tiotropium [place] 2 puff 04/08/18 10:00 04/20/18 09:08 Spiriva Respimat IH 2 puff DAILY ALONDRA Administration ASSESSMENT/PLAN: 62 yo male with PMHx of COPD, paroxysmal atrial fibrillation (AC-Eliquis), known lung mass who 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 Admitted for SVC syndrome found be 2/2 poorly differentiated squamous carcinoma of lung. Problem List - Problems (1) SVC syndrome Assessment/Plan: At this time breathing is not compromised * Pathology shows poorly differentiated squamous carcinoma; PDL-1 result pending. * Head MRI show no lesions. * Plan for stent placement with IR tomorrow * Edema stable * Eliquis held for STENT. * minimal O2 requirements. goods sats on 2L NC * Incentive spirometry. (2) COPD (chronic obstructive pulmonary disease) Assessment/Plan: * Supplemental O2 PRN * maintain SpO2 >90% * Tiotropium [place] (Spiriva Respimat) 2 puff IH DAILY Visit type - Emergency Visit Emergency Visit: Yes ED Registration Date: 04/07/18 Care time: The patient presented to the Emergency Department on the above date and was hospitalized for further evaluation of their emergent condition. - New Patient This patient is new to me today: No - Critical Care Critical Care patient: No
--- NOTE | 2018-04-20 11:30 | PN ---
Progress Note, Physician History of Present Illness: No further episodes of rapid afib after Cardizem CD added, he underwent lung mass biopsy, formal pathology confirms moderately differentiated squamous carcinoma. Await SVC stent placement off Eliquis. - Current Medication List Current Medications: Active Medications Acetaminophen (Tylenol -) 650 mg PO Q6H PRN PRN Reason: PAIN OR FEVER Last Admin: 04/20/18 06:04 Dose: 650 mg Diltiazem HCl (Cardizem Cd -) 180 mg PO DAILY [facility] Last Admin: 04/20/18 09:02 Dose: 180 mg Oxycodone HCl (Roxicodone -) 10 mg PO Q6H PRN PRN Reason: PAIN LEVEL 6-10 Last Admin: 04/19/18 21:40 Dose: 10 mg Sotalol HCl (Betapace -) 80 mg PO BID [facility] Last Admin: 04/20/18 09:02 Dose: 80 mg Tiotropium [place] (Spiriva Respimat) 2 puff IH DAILY [facility] Last Admin: 04/20/18 09:08 Dose: 2 puff - Objective Vital Signs: Vital Signs Temperature 98.9 F 04/20/18 02:00 Pulse Rate 78 04/20/18 10:15 Respiratory Rate 18 04/20/18 10:15 Blood Pressure 101/52 L 04/20/18 10:15 O2 Sat by Pulse Oximetry (%) 96 04/20/18 10:15 Constitutional: Yes: No Distress, Calm Neck: Yes: Supple Cardiovascular: Yes: Regular Rate and Rhythm Respiratory: Yes: Regular, Diminished, On Nasal O2 Gastrointestinal: Yes: Normal Bowel Sounds, Soft Edema: No Labs: CBC, BMP 04/13/18 05:30 04/11/18 05:30 INR, PTT INR 1.18 (0.83-1.09) H 04/11/18 05:30 Fibrinogen > 500.0 mg/dL (238-498) H 04/10/18 13:15 - ....Imaging EKG: Report Reviewed (Tele: SR no PAF) Problem List - Problems (1) COPD (chronic obstructive pulmonary disease) Code(s): J44.9 - CHRONIC OBSTRUCTIVE PULMONARY DISEASE, UNSPECIFIED Qualifiers: COPD type: unspecified COPD Qualified Code(s): J44.9 - Chronic obstructive pulmonary disease, unspecified (2) Dyspnea Code(s): R06.00 - DYSPNEA, UNSPECIFIED Qualifiers: Dyspnea type: dyspnea on exertion Qualified Code(s): R06.09 - Other forms of dyspnea (3) Hemoptysis Code(s): R04.2 - HEMOPTYSIS (4) Lung mass Code(s): R91.8 - OTHER NONSPECIFIC ABNORMAL FINDING OF LUNG FIELD (5) Paroxysmal atrial fibrillation Code(s): I48.0 - PAROXYSMAL ATRIAL FIBRILLATION (6) SVC syndrome Code(s): I87.1 - COMPRESSION OF VEIN (7) Smoker Code(s): F17.200 - NICOTINE DEPENDENCE, UNSPECIFIED, UNCOMPLICATED (8) Anticoagulant long-term use Code(s): Z79.01 - DENTURE MODEL [employer]KER (CURRENT) USE OF 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 Assessment/Plan 02/22/2018 Holter Monitor: SR with paroxysmal afib/flutter with aberrant conduction (RBBB morphology) 5.44% of time, frequent PAC, PVC 12/22/2017 Large irregular cavitary soft tissue mass involving right superior mediastinum in right to mid and superior hilar region suspicious for primary or secondary malignancy 04/07/2018 Large central RUL mass with invasion of mediastinum and adjacent consolidation/ATX RUL, distal SVC stenosis without obstruction with collateralization 03/11/2018 Echo: Normal LV and RV size and fxn with abnl LV compliance, mildly dilated ascending aorta, mild MR, TR. tr SC 03/29/2018 ETT Myoview: Negative maximal stress test for ischemia, LVEF 60% 04/14/2018 Brain MRI: No metastases 1. SVC Syndrome 2. 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 COPD/Emphysema 4. Palpitations, Paroxysmal Atrial Fibrillation->SR [id number] on anticoagulation 5. Diastolic LV dysfunction with class 0 NYHA classification LV failure 6. HTN/HCVD 7. Hep C post-treatment 8. Smoker Plan: 1. Eliquis 5 bid held prior to SVC stent, formal pathology reviewed 2. Await endovenous stent to improve venous drainage with hold a/c, combined RT /chemotherapy, PET scanning per oncology 3. Continue sotalol 80 bid, cardizem CD 180 qd, resume a/c post procedure once hemostasis achieved 4. Inhaled bronchodilators, O2 as needed, smoking cessation
--- NOTE | 2018-04-20 12:09 | PN ---
Progress Note (short form) - Note Progress Note: PULMONARY Clinically unchanged. Occasional shortness of breath and chest discomfort. Awaiting SVC stent. Vital Signs Period Temp Pulse Resp BP Sys/Gtz Pulse Ox Last 24 Hr 97.4 F-98.9 F 72-81 8-18 93-115/52-82 96-96 Gen: NAD at rest Heart: RRR Lung: decreased breath sounds, bronchial breath sounds right Abd: soft, nontender Ext: UE edema CBC, BMP 04/13/18 05:30 04/11/18 05:30 Active Medications Acetaminophen (Tylenol -) 650 mg PO Q6H PRN PRN Reason: PAIN OR FEVER Last Admin: 04/20/18 06:04 Dose: 650 mg Diltiazem HCl (Cardizem Cd -) 180 mg PO DAILY [facility] Last Admin: 04/20/18 09:02 Dose: 180 mg Oxycodone HCl (Roxicodone -) 10 mg PO Q6H PRN PRN Reason: PAIN LEVEL 6-10 Last Admin: 04/19/18 21:40 Dose: 10 mg Sotalol HCl (Betapace -) 80 mg PO BID [facility] Last Admin: 04/20/18 09:02 Dose: 80 mg Tiotropium [place] (Spiriva Respimat) 2 puff IH DAILY [facility] Last Admin: 04/20/18 09:08 Dose: 2 puff A/P Newly Diagnosed Lung Cancer SVC Syndrome COPD Emphysema Hemoptysis Paroxysmal Atrial Fibrillation on anticoagulation Smoker Suspected RLL atelectasis - for SVC stent placement - incentive spirometry - rate control - inhaled bronchodilators - chemo/RT post SVC stent placement Problem List - Problems (1) SVC syndrome Code(s): I87.1 - COMPRESSION OF VEIN (2) COPD (chronic obstructive pulmonary disease) Code(s): J44.9 - CHRONIC OBSTRUCTIVE PULMONARY DISEASE, UNSPECIFIED Qualifiers: COPD type: unspecified COPD Qualified Code(s): J44.9 - Chronic obstructive pulmonary disease, unspecified (3) Hemoptysis Code(s): R04.2 - HEMOPTYSIS (4) Smoker Code(s): F17.200 - NICOTINE DEPENDENCE, UNSPECIFIED, UNCOMPLICATED (5) Paroxysmal atrial fibrillation Code(s): I48.0 - PAROXYSMAL ATRIAL FIBRILLATION
[2018-04-20] MEDS: oxyCODONE HCL 5 MG TABLET PO PRN (22:22)
[2018-04-21 10:05] LABS: BASO % 0.8 % (0-2.0); EOS % 2.7 % (0-4.5); HEMATOCRIT 40.5 % (35.4-49); HEMOGLOBIN 13.4 GM/dL (11.7-16.9); LYMPH % 20.8 % (8-40); MCHC 33.2 g/dl (32.0-35.9); MEAN CELL VOLUME 93.4 fl (80-96); MEAN PLT VOLUME 7.5 fl (7.5-11.1); MONO % 11.2 % (3.8-10.2); NEUT % 64.5 % (42.8-82.8); PLATELET COUNT 248 K/MM3 (134-434); RBC 4.34 M/mm3 (4.00-5.60); RDW 15.2 % (11.9-15.9); WHITE BLOOD COUNT 5.7 K/mm3 (4.0-10.0)
--- NOTE | 2018-04-21 10:17 | PN ---
Progress Note, Physician History of Present Illness: No further episodes of rapid afib after Cardizem CD added, he underwent lung mass biopsy, formal pathology confirms moderately differentiated squamous carcinoma. Await SVC stent placement today off Eliquis. - Current Medication List Current Medications: Active Medications Acetaminophen (Tylenol -) 650 mg PO Q6H PRN PRN Reason: PAIN OR FEVER Last Admin: 04/20/18 18:43 Dose: 650 mg Diltiazem HCl (Cardizem Cd -) 180 mg PO DAILY [facility] Last Admin: 04/20/18 09:02 Dose: 180 mg Oxycodone HCl (Roxicodone -) 10 mg PO Q6H PRN PRN Reason: PAIN LEVEL 6-10 Last Admin: 04/20/18 22:22 Dose: 10 mg Sotalol HCl (Betapace -) 80 mg PO BID [facility] Last Admin: 04/20/18 22:22 Dose: 80 mg Tiotropium [place] (Spiriva Respimat) 2 puff IH DAILY [facility] Last Admin: 04/20/18 09:08 Dose: 2 puff - Objective Vital Signs: Vital Signs Temperature 98.6 F 04/21/18 09:00 Pulse Rate 73 04/21/18 09:15 Respiratory Rate 20 04/21/18 09:15 Blood Pressure 99/64 04/21/18 09:15 O2 Sat by Pulse Oximetry (%) 96 04/21/18 09:15 Constitutional: Yes: No Distress, Calm Neck: Yes: Supple Cardiovascular: Yes: Regular Rate and Rhythm Respiratory: Yes: Regular, Diminished Gastrointestinal: Yes: Soft, Hypoactive Bowel Sounds Edema: No Labs: CBC, BMP 04/21/18 09:40 04/11/18 05:30 INR, PTT INR 1.18 (0.83-1.09) H 04/11/18 05:30 Fibrinogen > 500.0 mg/dL (238-498) H 04/10/18 13:15 - ....Imaging EKG: Report Reviewed (Tele: NSR no PAF) Problem List - Problems (1) COPD (chronic obstructive pulmonary disease) Code(s): J44.9 - CHRONIC OBSTRUCTIVE PULMONARY DISEASE, UNSPECIFIED Qualifiers: COPD type: unspecified COPD Qualified Code(s): J44.9 - Chronic obstructive pulmonary disease, unspecified (2) Dyspnea Code(s): R06.00 - DYSPNEA, UNSPECIFIED Qualifiers: Dyspnea type: dyspnea on exertion Qualified Code(s): R06.09 - Other forms of dyspnea (3) Hemoptysis Code(s): R04.2 - HEMOPTYSIS (4) Lung mass Code(s): R91.8 - OTHER NONSPECIFIC ABNORMAL FINDING OF LUNG FIELD (5) Paroxysmal atrial fibrillation Code(s): I48.0 - PAROXYSMAL ATRIAL FIBRILLATION (6) SVC syndrome Code(s): I87.1 - COMPRESSION OF VEIN (7) Smoker Code(s): F17.200 - NICOTINE DEPENDENCE, UNSPECIFIED, UNCOMPLICATED (8) Anticoagulant long-term use Code(s): Z79.01 - FPC (CURRENT) USE OF 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 Assessment/Plan 02/22/2018 Holter Monitor: SR with paroxysmal afib/flutter with aberrant conduction (RBBB morphology) 5.44% of time, frequent PAC, PVC 12/22/2017 Large irregular cavitary soft tissue mass involving right superior mediastinum in right to mid and superior hilar region suspicious for primary or secondary malignancy 04/07/2018 Large central RUL mass with invasion of mediastinum and adjacent consolidation/ATX RUL, distal SVC stenosis without obstruction with collateralization 03/11/2018 Echo: Normal LV and RV size and fxn with abnl LV compliance, mildly dilated ascending aorta, mild MR, TR. tr [place] 03/29/2018 ETT Myoview: Negative maximal stress test for ischemia, LVEF 60% 04/14/2018 Brain MRI: No metastases 1. SVC Syndrome 2. 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 COPD/Emphysema 4. Palpitations, Paroxysmal Atrial Fibrillation->SR [id number] on anticoagulation 5. Diastolic LV dysfunction with class 0 NYHA classification LV failure 6. HTN/HCVD 7. Hep C post-treatment 8. Smoker Plan: 1. Eliquis 5 bid held prior to SVC stent, formal pathology reviewed 2. Await endovenous stent to improve venous drainage with hold a/c, combined RT /chemotherapy, PET scanning per oncology 3. Continue sotalol 80 bid, cardizem CD 180 qd, resume a/c post procedure once hemostasis achieved 4. Inhaled bronchodilators, O2 as needed, smoking cessation
[2018-04-21 10:33] LABS: INR 1.18 (0.83-1.09)
[2018-04-21 10:36] LABS: ACTIVATED PTT 27.5 SECONDS (25.2-36.5)
[2018-04-21] MEDS: TIOTROPIUM BROMIDE 2.5 MCG (SPIRIVA) RESPIMAT INHALER IH SCH (11:00)
[2018-04-21] MEDS: SOTALOL HCL 80 MG TABLET (FP) PO SCH ×2 (11:00→22:37)
--- NOTE | 2018-04-21 11:47 | PN ---
Progress Note, Physician Chief Complaint: patient seen and examined on telemetry floor awaiting to go to IR today for SVC stent placement eliquis on hold - Current Medication List Current Medications: Active Medications Acetaminophen (Tylenol -) 650 mg PO Q6H PRN PRN Reason: PAIN OR FEVER Last Admin: 04/20/18 18:43 Dose: 650 mg Diltiazem HCl (Cardizem Cd -) 180 mg PO DAILY [facility] Last Admin: 04/20/18 09:02 Dose: 180 mg Sotalol HCl (Betapace -) 80 mg PO BID [facility] Last Admin: 04/20/18 22:22 Dose: 80 mg Tiotropium [place] (Spiriva Respimat) 2 puff IH DAILY [facility] Last Admin: 04/20/18 09:08 Dose: 2 puff - Objective Vital Signs: Vital Signs Temperature 98.6 F 04/21/18 09:00 Pulse Rate 73 04/21/18 09:15 Respiratory Rate 20 04/21/18 09:15 Blood Pressure 99/64 04/21/18 09:15 O2 Sat by Pulse Oximetry (%) 96 04/21/18 09:15 Constitutional: Yes: Calm HENT: Yes: Other (facial edema) Cardiovascular: Yes: Regular Rate and Rhythm, S1, S2 Respiratory: Yes: Diminished, On Nasal O2 Gastrointestinal: Yes: Normal Bowel Sounds, Soft Edema: Yes Neurological: Yes: Alert, Oriented Labs: CBC, BMP 04/21/18 09:40 04/11/18 05:30 INR, PTT INR 1.18 (0.83-1.09) H 04/21/18 09:40 Fibrinogen > 500.0 mg/dL (238-498) H 04/10/18 13:15 Problem List - Problems (1) Dyspnea Assessment/Plan: 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 oncology and RT on board IR to do endovenous stent placement for venous drainage prior to RT- eliquis on hold- awaiting stent placement today oxygen - humidified Code(s): R06.00 - DYSPNEA, UNSPECIFIED Qualifiers: Dyspnea type: dyspnea on exertion Qualified Code(s): R06.09 - Other forms of dyspnea (2) Lung mass Assessment/Plan: brain MRI negative bone scan negative biopsy shows moderately differentiated squamous cell carcinoma Code(s): R91.8 - OTHER NONSPECIFIC ABNORMAL FINDING OF LUNG FIELD (3) Afib Assessment/Plan: currently NSR On monitior eliquis on hold for stent placement sotalol and cardizem Code(s): I48.91 - UNSPECIFIED ATRIAL FIBRILLATION (4) COPD (chronic obstructive pulmonary disease) Assessment/Plan: oxygen-humdified bronchodilators Code(s): J44.9 - CHRONIC OBSTRUCTIVE PULMONARY DISEASE, UNSPECIFIED Qualifiers: COPD type: unspecified COPD Qualified Code(s): J44.9 - Chronic obstructive pulmonary disease, unspecified
--- NOTE | 2018-04-21 12:07 | PN ---
Progress Note (short form) - Note Progress Note: Feels a little better today. No CP. Less SOB. Intake & Output 04/18/18 04/19/18 04/20/18 04/21/18 23:59 23:59 23:59 23:59 Intake Total 160 375 7759 Output Total 450 2100 Balance 100 320 -800 Last Vital Signs Temp Pulse Resp BP Pulse Ox 98.6 F 73 20 99/64 96 04/21/18 09:00 04/21/18 09:15 04/21/18 09:15 04/21/18 09:15 04/21/18 09:15 Active Medications Acetaminophen (Tylenol -) 650 mg PO Q6H PRN PRN Reason: PAIN OR FEVER Last Admin: 04/20/18 18:43 Dose: 650 mg Diltiazem HCl (Cardizem Cd -) 180 mg PO DAILY [facility] Last Admin: 04/20/18 09:02 Dose: 180 mg Sotalol HCl (Betapace -) 80 mg PO BID [facility] Last Admin: 04/20/18 22:22 Dose: 80 mg Tiotropium [place] (Spiriva Respimat) 2 puff IH DAILY [facility] Last Admin: 04/20/18 09:08 Dose: 2 puff Constitutional: Yes: NAD Eyes: Yes: Conjunctiva Clear, EOM Intact HENT: Yes: Atraumatic Neck: Yes: (-) JVD, Right neck fullness Cardiovascular: Yes: Regular Rate and Rhythm Respiratory: Yes: Diminished on the right ...Clubbing: Yes Gastrointestinal: Yes: Normal Bowel Sounds, Soft. No: Tenderness Edema: RUE swelling Labs: Laboratory Results - last 24 hr 04/21/18 04/21/18 09:40 09:40 WBC 5.7 RBC 4.34 Hgb 13.4 Hct 40.5 MCV 93.4 MCH 31.0 MCHC 33.2 RDW 15.2 Plt Count 248 MPV 7.5 Absolute Neuts (auto) 3.7 Neutrophils % 64.5 Lymphocytes % 20.8 D Monocytes % 11.2 H Eosinophils % 2.7 Basophils % 0.8 Nucleated RBC % 0 PT with INR 14.00 H INR 1.18 H PTT (Actin FS) 27.5 Problem List - Problems (1) SVC syndrome Code(s): I87.1 - COMPRESSION OF VEIN (2) COPD (chronic obstructive pulmonary disease) Code(s): J44.9 - CHRONIC OBSTRUCTIVE PULMONARY DISEASE, UNSPECIFIED (3) Hemoptysis Code(s): R04.2 - HEMOPTYSIS (4) Lung mass Code(s): R91.8 - OTHER NONSPECIFIC ABNORMAL FINDING OF LUNG FIELD (5) Smoker Code(s): F17.200 - NICOTINE DEPENDENCE, UNSPECIFIED, UNCOMPLICATED (6) Paroxysmal atrial fibrillation Code(s): I48.0 - PAROXYSMAL ATRIAL FIBRILLATION Assessment/Plan Squamous Cell CA 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
[2018-04-21] MEDS ORDERED: HEPARIN INFUSION - 25,000 UNITS/500 ML INFUS.BAG IVPB ONE (13:28)
[2018-04-21] MEDS ORDERED: ALTEPLASE (CATHFLO) 10 MG in SODIUM CHLORIDE 100 ML CVP ONE (14:30)
[2018-04-21] MEDS ORDERED: HEPARIN NA (PORCINE) 5,000 UNITS/ML 1ML VIAL ONE (15:25)
[2018-04-21] MEDS ORDERED: HEPARIN NA (PORCINE) 5,000 UNITS/ML 1ML VIAL IVPUSH ONE (17:50)
[2018-04-21] MEDS ORDERED: HEPARIN NA (PORCINE) 5,000 UNITS/ML 1ML VIAL IVPUSH PRN (17:50)
[2018-04-21] MEDS: HEPARIN INFUSION - 25,000 UNITS/500 ML INFUS.BAG IVPB SCH (18:28)
--- NOTE | 2018-04-21 19:24 | PN ---
Progress Note (short form) - Note Progress Note: PAtient seen and examined swelling of face and RUE went for SVC stent placement today---noted to have clot and clot extracted now on heparin AFVSS Cor: RSR, No murmurs, No gallops Lungs: Clear to P&A Abd: Soft, Normal bowel sounds, No organomegaly Ext:No significant edema A/P 62-year-old male with a history of cigarette smoking, COPD, hypertension, recently diagnosed atrial fibrillation (on Eliquis) and known lung nodule for 20 years. He was scheduled for bronchoscopy in February, but was noted to have new atrial fibrillation at the time of the procedure, so it was deferred. Since that time, he has had worsening symptoms, including dyspnea on minimal exertion and with laying flat (he reports that he now has to sleep upright) and cough with occasional hemoptysis . He presents with worsening dyspnea and new upper extremity edema. He is referred for suspicion of possible SVC syndrome. CT imaging shows large central right upper lobe mass causing narrowing of SVC. Marked narrowing of distal SVC. path c/w --poorly differentiated carcinoma. PDL1 pending MRI brain/bone scan neative attempted SVC stent placement today per IR. Noted to have SVC clot. Clot extracted On heparin drip will follow
[2018-04-21] MEDS: oxyCODONE HCL 5 MG TABLET PO PRN (22:37)
[2018-04-21] MEDS: HEPARIN NA (PORCINE) 5,000 UNITS/ML 1ML VIAL IVPUSH PRN (22:44)
[2018-04-22] MEDS: HEPARIN INFUSION - 25,000 UNITS/500 ML INFUS.BAG IVPB SCH ×2 (08:36→16:56)
[2018-04-22] MEDS: SOTALOL HCL 80 MG TABLET (FP) PO SCH ×2 (09:36→22:08)
[2018-04-22] MEDS: HEPARIN NA (PORCINE) 5,000 UNITS/ML 1ML VIAL IVPUSH PRN (09:36)
[2018-04-22] MEDS: TIOTROPIUM BROMIDE 2.5 MCG (SPIRIVA) RESPIMAT INHALER IH SCH (09:37)
--- NOTE | 2018-04-22 09:56 | PN ---
Progress Note, Physician History of Present Illness: No further episodes of rapid afib after Cardizem CD added, SVG angiogram shows thrombus, underwent thrombectomy, thrombolysis and placed on heparin gtt. Facial and RUE swelling improving. - Current Medication List Current Medications: Active Medications Acetaminophen (Tylenol -) 650 mg PO Q6H PRN PRN Reason: PAIN OR FEVER Last Admin: 04/20/18 18:43 Dose: 650 mg Diltiazem HCl (Cardizem Cd -) 180 mg PO DAILY [facility] Last Admin: 04/22/18 09:36 Dose: Not Given Heparin Sodium (Porcine) (Heparin -) 5,000 unit IVPUSH PRN PRN PRN Reason: Heparin Last Admin: 04/22/18 09:36 Dose: 5,000 unit Heparin Sodium (Porcine) (Heparin -) 1,000 unit IVPUSH PRN PRN PRN Reason: Heparin Heparin Sodium/Dextrose (Heparin Infusion -) 25,000 units in 500 mls @ 20 mls/ hr IVPB TITR [facility]; Protocol Last Admin: 04/22/18 08:36 Dose: 1,300 units/hr, 26 mls/hr Oxycodone HCl (Roxicodone -) 10 mg PO Q6H PRN PRN Reason: PAIN LEVEL 7 - 10 Last Admin: 04/21/18 22:37 Dose: 10 mg Sotalol HCl (Betapace -) 80 mg PO BID [facility] Last Admin: 04/22/18 09:36 Dose: Not Given Tiotropium [place] (Spiriva Respimat) 2 puff IH DAILY [facility] Last Admin: 04/22/18 09:37 Dose: 2 puff - Objective Vital Signs: Vital Signs Temperature 99 F 04/22/18 09:38 Pulse Rate 90 04/22/18 09:38 Respiratory Rate 20 04/22/18 06:00 Blood Pressure 102/48 L 04/22/18 09:38 O2 Sat by Pulse Oximetry (%) 97 04/21/18 16:21 Constitutional: Yes: No Distress, Calm Neck: Yes: Supple Cardiovascular: Yes: Regular Rate and Rhythm Respiratory: Yes: Regular, Diminished Gastrointestinal: Yes: Normal Bowel Sounds, Soft Edema: Yes Edema: RUE: 1+ Labs: CBC, BMP 04/21/18 09:40 04/11/18 05:30 INR, PTT INR 1.18 (0.83-1.09) H 04/21/18 09:40 Fibrinogen > 500.0 mg/dL (238-498) H 04/10/18 13:15 Problem List - Problems (1) COPD (chronic obstructive pulmonary disease) Code(s): J44.9 - CHRONIC OBSTRUCTIVE PULMONARY DISEASE, UNSPECIFIED Qualifiers: COPD type: unspecified COPD Qualified Code(s): J44.9 - Chronic obstructive pulmonary disease, unspecified (2) Dyspnea Code(s): R06.00 - DYSPNEA, UNSPECIFIED Qualifiers: Dyspnea type: dyspnea on exertion Qualified Code(s): R06.09 - Other forms of dyspnea (3) Hemoptysis Code(s): R04.2 - HEMOPTYSIS (4) Lung mass Code(s): R91.8 - OTHER NONSPECIFIC ABNORMAL FINDING OF LUNG FIELD (5) Paroxysmal atrial fibrillation Code(s): I48.0 - PAROXYSMAL ATRIAL FIBRILLATION (6) SVC syndrome Code(s): I87.1 - COMPRESSION OF VEIN (7) Smoker Code(s): F17.200 - NICOTINE DEPENDENCE, UNSPECIFIED, UNCOMPLICATED (8) Anticoagulant long-term use Code(s): Z79.01 - BOOT TURNER (CURRENT) USE OF 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 (9) DVT (deep venous thrombosis) Code(s): I82.409 - ACUTE EMBOLISM AND THOMBOS UNSP DEEP VN UNSP LOWER EXTREMITY Qualifiers: DVT location: upper extremity Affected thrombotic vein of extremity: other upper extremity vein Chronicity: acute Laterality: right Qualified Code(s) : I82.621 - Acute embolism and thrombosis of deep veins of right upper extremity Assessment/Plan 02/22/2018 Holter Monitor: SR with paroxysmal afib/flutter with aberrant conduction (RBBB morphology) 5.44% of time, frequent PAC, PVC 12/22/2017 Large irregular cavitary soft tissue mass involving right superior mediastinum in right to mid and superior hilar region suspicious for primary or secondary malignancy 04/07/2018 Large central RUL mass with invasion of mediastinum and adjacent consolidation/ATX RUL, distal SVC stenosis without obstruction with collateralization 03/11/2018 Echo: Normal LV and RV size and fxn with abnl LV compliance, mildly dilated ascending aorta, mild MR, TR. tr DC 03/29/2018 ETT Myoview: Negative maximal stress test for ischemia, LVEF 60% 04/14/2018 Brain MRI: No metastases 1. SVC Syndrome with SVC thrombus post thrombectomy 2. 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 COPD/Emphysema 4. Palpitations, Paroxysmal Atrial Fibrillation->SR [id number] on anticoagulation 5. Diastolic LV dysfunction with class 0 NYHA classification LV failure 6. HTN/HCVD 7. Hep C post-treatment 8. Smoker Plan: 1. On Heparin gtt pending repeat SVG angiogram to document clot clearance and possible SVC stent 2. Combined RT/chemotherapy, PET scanning per oncology 3. Continue sotalol 80 bid, cardizem CD 180 qd 4. Inhaled bronchodilators, O2 as needed, smoking cessation
--- NOTE | 2018-04-22 11:32 | PN ---
Progress Note, Physician History of Present Illness: PULMONARY ALERT,LESS DYSPNEIC,-CP - Current Medication List Current Medications: Active Medications Acetaminophen (Tylenol -) 650 mg PO Q6H PRN PRN Reason: PAIN OR FEVER Last Admin: 04/20/18 18:43 Dose: 650 mg Diltiazem HCl (Cardizem Cd -) 180 mg PO DAILY [facility] Last Admin: 04/22/18 09:36 Dose: Not Given Heparin Sodium (Porcine) (Heparin -) 5,000 unit IVPUSH PRN PRN PRN Reason: Heparin Last Admin: 04/22/18 09:36 Dose: 5,000 unit Heparin Sodium (Porcine) (Heparin -) 1,000 unit IVPUSH PRN PRN PRN Reason: Heparin Heparin Sodium/Dextrose (Heparin Infusion -) 25,000 units in 500 mls @ 20 mls/ hr IVPB TITR [facility]; Protocol Last Admin: 04/22/18 08:36 Dose: 1,300 units/hr, 26 mls/hr Oxycodone HCl (Roxicodone -) 10 mg PO Q6H PRN PRN Reason: PAIN LEVEL 7 - 10 Last Admin: 04/21/18 22:37 Dose: 10 mg Sotalol HCl (Betapace -) 80 mg PO BID [facility] Last Admin: 04/22/18 09:36 Dose: Not Given Tiotropium [place] (Spiriva Respimat) 2 puff IH DAILY [facility] Last Admin: 04/22/18 09:37 Dose: 2 puff - Objective Vital Signs: Vital Signs Temperature 99 F 04/22/18 09:38 Pulse Rate 90 04/22/18 09:38 Respiratory Rate 20 04/22/18 06:00 Blood Pressure 102/48 L 04/22/18 09:38 O2 Sat by Pulse Oximetry (%) 97 04/21/18 16:21 Constitutional: Yes: Well Nourished, Calm Eyes: Yes: WNL HENT: Yes: WNL Neck: Yes: WNL Cardiovascular: Yes: Pulse Irregular, S1, S2 Respiratory: Yes: Diminished (DIMINISHED BS R BASE) Gastrointestinal: Yes: Normal Bowel Sounds, Soft Extremities: Yes: WNL Edema: No Labs: CBC, BMP 04/21/18 09:40 Problem List - Problems (1) Lung cancer Code(s): C34.90 - MALIGNANT NEOPLASM OF UNSP PART OF UNSP BRONCHUS OR LUNG Assessment/Plan Problem List - Problems (1) SVC syndrome Code(s): I87.1 - COMPRESSION OF VEIN (2) COPD (chronic obstructive pulmonary disease) Code(s): J44.9 - CHRONIC OBSTRUCTIVE PULMONARY DISEASE, UNSPECIFIED (3) Hemoptysis Code(s): R04.2 - HEMOPTYSIS (4) Lung mass Code(s): R91.8 - OTHER NONSPECIFIC ABNORMAL FINDING OF LUNG FIELD (5) Smoker Code(s): F17.200 - NICOTINE DEPENDENCE, UNSPECIFIED, UNCOMPLICATED (6) Paroxysmal atrial fibrillation Code(s): I48.0 - PAROXYSMAL ATRIAL FIBRILLATION Assessment/Plan Squamous Cell CA 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
--- NOTE | 2018-04-22 11:57 | PN ---
Progress Note, Physician Chief Complaint: SVC syndrome History of Present Illness: Had partial thrombectomy yesterday by IR due to intolerance of anistreplase. IR was not able to place SVC stent. Pt currently on heparin drip. Plan is to complete thrombectomy early next week with TPA (awaiting on infusion catheter) and stent the SVC. Pt medically stable at this time. - Current Medication List Current Medications: Active Medications Acetaminophen (Tylenol -) 650 mg PO Q6H PRN PRN Reason: PAIN OR FEVER Last Admin: 04/20/18 18:43 Dose: 650 mg Diltiazem HCl (Cardizem Cd -) 180 mg PO DAILY [facility] Last Admin: 04/22/18 09:36 Dose: Not Given Heparin Sodium (Porcine) (Heparin -) 5,000 unit IVPUSH PRN PRN PRN Reason: Heparin Last Admin: 04/22/18 09:36 Dose: 5,000 unit Heparin Sodium (Porcine) (Heparin -) 1,000 unit IVPUSH PRN PRN PRN Reason: Heparin Heparin Sodium/Dextrose (Heparin Infusion -) 25,000 units in 500 mls @ 20 mls/ hr IVPB TITR [facility]; Protocol Last Admin: 04/22/18 08:36 Dose: 1,300 units/hr, 26 mls/hr Oxycodone HCl (Roxicodone -) 10 mg PO Q6H PRN PRN Reason: PAIN LEVEL 7 - 10 Last Admin: 04/21/18 22:37 Dose: 10 mg Sotalol HCl (Betapace -) 80 mg PO BID [facility] Last Admin: 04/22/18 09:36 Dose: Not Given Tiotropium [place] (Spiriva Respimat) 2 puff IH DAILY [facility] Last Admin: 04/22/18 09:37 Dose: 2 puff - Objective Vital Signs: Vital Signs Temperature 99 F 04/22/18 09:38 Pulse Rate 90 04/22/18 09:38 Respiratory Rate 20 04/22/18 06:00 Blood Pressure 102/48 L 04/22/18 09:38 O2 Sat by Pulse Oximetry (%) 97 04/21/18 16:21 Constitutional: Yes: Well Nourished, No Distress, Calm Cardiovascular: Yes: Regular Rate and Rhythm Respiratory: Yes: Regular Gastrointestinal: Yes: Normal Bowel Sounds, Soft Musculoskeletal: Yes: WNL Extremities: Yes: WNL Edema: No Peripheral Pulses WNL: Yes Neurological: Yes: Alert, Oriented Psychiatric: Yes: Alert, Oriented Labs: CBC, BMP 04/21/18 09:40 04/11/18 05:30 INR, PTT INR 1.18 (0.83-1.09) H 04/21/18 09:40 Fibrinogen > 500.0 mg/dL (238-498) H 04/10/18 13:15 Problem List - Problems (1) Afib Assessment/Plan: -Tele monitoring -Cardiology on board -On heparin drip -On CCB and BB Code(s): I48.91 - UNSPECIFIED ATRIAL FIBRILLATION (2) Lung cancer Assessment/Plan: Oncology and pulmonary on board Code(s): C34.90 - MALIGNANT NEOPLASM OF UNSP PART OF UNSP BRONCHUS OR LUNG (3) SVC syndrome Assessment/Plan: -Seen by IR -Heparin drip -Complete thrombectomy early next week and then SVC stent -Discussed case with Dr Coronado-IR Code(s): I87.1 - COMPRESSION OF VEIN Assessment/Plan see problem list Pt self ambulatory
--- NOTE | 2018-04-22 19:53 | PN ---
Progress Note (short form) - Note Progress Note: PAtient seen and examined swelling of face and RUE stable Last Vital Signs Temp Pulse Resp BP Pulse Ox 98.9 F 91 H 18 114/71 97 04/22/18 14:25 04/22/18 14:25 04/22/18 14:25 04/22/18 14:25 04/21/18 16:21 Cor: RSR, No murmurs, No gallops Lungs: Clear to P&A Abd: Soft, Normal bowel sounds, No organomegaly Ext:No significant edema Abnormal Lab Results 04/21/18 04/22/18 21:15 15:00 PTT (Actin FS) 38.0 H 79.1 H Active Medications Generic Name Dose Route Start Last Admin Trade Name Freq PRN Reason Stop Dose Admin Acetaminophen 650 mg 04/09/18 12:59 04/20/18 18:43 Tylenol - PO 650 mg Q6H PRN Administration PAIN OR FEVER Diltiazem HCl 180 mg 04/10/18 10:00 04/22/18 09:36 Cardizem Cd - PO Not Given DAILY [facility] Heparin Sodium (Porcine) 5,000 unit 04/21/18 17:50 04/22/18 09:36 Heparin - IVPUSH 5,000 unit PRN PRN Administration Heparin Heparin Sodium (Porcine) 1,000 unit 04/21/18 17:50 Heparin - IVPUSH PRN PRN Heparin Heparin Sodium/Dextrose 25,000 units in 500 mls @ 20 mls/hr 04/21/18 18:00 16:56 Heparin Infusion - IVPB 1,250 units/hr TITR [facility] 25 mls/hr Administration Protocol 1,000 UNITS/HR Oxycodone HCl 10 mg 04/21/18 21:34 04/21/18 22:37 Roxicodone - PO 10 mg Q6H PRN Administration PAIN LEVEL 7 - 10 Sotalol HCl 80 mg 04/08/18 19:00 04/22/18 09:36 Betapace - PO Not Given BID [facility] Tiotropium [place] 2 puff 04/08/18 10:00 04/22/18 09:37 Spiriva Respimat IH 2 puff DAILY [facility] Administration A/P 62-year-old male with a history of cigarette smoking, COPD, hypertension, recently diagnosed atrial fibrillation (on Eliquis) and known lung nodule for 20 years. He was scheduled for bronchoscopy in February, but was noted to have new atrial fibrillation at the time of the procedure, so it was deferred. Since that time, he has had worsening symptoms, including dyspnea on minimal exertion and with laying flat (he reports that he now has to sleep upright) and cough with occasional hemoptysis . He presents with worsening dyspnea and new upper extremity edema. He is referred for suspicion of possible SVC syndrome. CT imaging shows large central right upper lobe mass causing narrowing of SVC. Marked narrowing of distal SVC. path c/w --poorly differentiated carcinoma. PDL1 pending MRI brain/bone scan neative attempted SVC stent placement 04/21 per IR. Noted to have SVC clot. Clot extracted On heparin drip possible SVC angiogram and stenting per IR early next week To consider lovenox prior to discharge ? hypercoagulable state of malignancy will follow
[2018-04-22] MEDS ORDERED: PT OWN MED DRAWER 7, Y5N ONE (21:40)
[2018-04-22] MEDS: oxyCODONE HCL 5 MG TABLET PO PRN (22:09)
--- NOTE | 2018-04-23 10:13 | PN ---
Progress Note, Physician History of Present Illness: pulmonary alert,mildy dyspneic with exertion,+ cough - Current Medication List Current Medications: Active Medications Acetaminophen (Tylenol -) 650 mg PO Q6H PRN PRN Reason: PAIN OR FEVER Last Admin: 04/20/18 18:43 Dose: 650 mg Diltiazem HCl (Cardizem Cd -) 180 mg PO DAILY [facility] Last Admin: 04/22/18 09:36 Dose: Not Given Heparin Sodium (Porcine) (Heparin -) 5,000 unit IVPUSH PRN PRN PRN Reason: Heparin Last Admin: 04/22/18 09:36 Dose: 5,000 unit Heparin Sodium (Porcine) (Heparin -) 1,000 unit IVPUSH PRN PRN PRN Reason: Heparin Heparin Sodium/Dextrose (Heparin Infusion -) 25,000 units in 500 mls @ 20 mls/ hr IVPB TITR [facility]; Protocol Last Admin: 04/22/18 16:56 Dose: 1,250 units/hr, 25 mls/hr Oxycodone HCl (Roxicodone -) 10 mg PO Q6H PRN PRN Reason: PAIN LEVEL 7 - 10 Last Admin: 04/22/18 22:09 Dose: 10 mg Sotalol HCl (Betapace -) 80 mg PO BID [facility] Last Admin: 04/22/18 22:08 Dose: 80 mg Tiotropium [place] (Spiriva Respimat) 2 puff IH DAILY [facility] Last Admin: 04/22/18 09:37 Dose: 2 puff - Objective Vital Signs: Vital Signs Temperature 99.2 F 04/23/18 04:34 Pulse Rate 84 04/23/18 06:00 Respiratory Rate 20 04/23/18 06:00 Blood Pressure 102/55 L 04/23/18 06:00 O2 Sat by Pulse Oximetry (%) 97 04/21/18 16:21 Constitutional: Yes: Well Nourished, Calm Eyes: Yes: WNL HENT: Yes: WNL Neck: Yes: WNL Cardiovascular: Yes: Regular Rate and Rhythm, S1, S2 Respiratory: Yes: Diminished (diminished bs r base) Gastrointestinal: Yes: Normal Bowel Sounds, Soft Extremities: Yes: WNL Edema: Yes (rue) Labs: CBC, BMP Problem List - Problems (1) Lung cancer Code(s): C34.90 - MALIGNANT NEOPLASM OF UNSP PART OF UNSP BRONCHUS OR LUNG Assessment/Plan Problem List - Problems (1) SVC syndrome Code(s): I87.1 - COMPRESSION OF VEIN (2) COPD (chronic obstructive pulmonary disease) Code(s): J44.9 - CHRONIC OBSTRUCTIVE PULMONARY DISEASE, UNSPECIFIED (3) Hemoptysis Code(s): R04.2 - HEMOPTYSIS (4) Lung mass Code(s): R91.8 - OTHER NONSPECIFIC ABNORMAL FINDING OF LUNG FIELD (5) Smoker Code(s): F17.200 - NICOTINE DEPENDENCE, UNSPECIFIED, UNCOMPLICATED (6) Paroxysmal atrial fibrillation Code(s): I48.0 - PAROXYSMAL ATRIAL FIBRILLATION Assessment/Plan Squamous Cell CA SVC 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
[2018-04-23] MEDS: SOTALOL HCL 80 MG TABLET (FP) PO SCH ×3 (10:28→22:17)
[2018-04-23] MEDS: TIOTROPIUM BROMIDE 2.5 MCG (SPIRIVA) RESPIMAT INHALER IH SCH (10:45)
--- NOTE | 2018-04-23 12:37 | PN ---
Progress Note, Physician Chief Complaint: AWAKE ALERT FEELING BETTER ON HEPARIN DRIP IN CARDIAC TELE FLOOR DENIES CHEST PAIN OR SOB - Current Medication List Current Medications: Active Medications Acetaminophen (Tylenol -) 650 mg PO Q6H PRN PRN Reason: PAIN OR FEVER Last Admin: 04/20/18 18:43 Dose: 650 mg Diltiazem HCl (Cardizem Cd -) 180 mg PO DAILY [facility] Last Admin: 04/23/18 10:28 Dose: 180 mg Heparin Sodium (Porcine) (Heparin -) 5,000 unit IVPUSH PRN PRN PRN Reason: Heparin Last Admin: 04/22/18 09:36 Dose: 5,000 unit Heparin Sodium (Porcine) (Heparin -) 1,000 unit IVPUSH PRN PRN PRN Reason: Heparin Heparin Sodium/Dextrose (Heparin Infusion -) 25,000 units in 500 mls @ 20 mls/ hr IVPB TITR [facility]; Protocol Last Admin: 04/22/18 16:56 Dose: 1,250 units/hr, 25 mls/hr Oxycodone HCl (Roxicodone -) 10 mg PO Q6H PRN PRN Reason: PAIN LEVEL 7 - 10 Last Admin: 04/22/18 22:09 Dose: 10 mg Sotalol HCl (Betapace -) 80 mg PO BID [facility] Last Admin: 04/23/18 10:28 Dose: Not Given Tiotropium [place] (Spiriva Respimat) 2 puff IH DAILY [facility] Last Admin: 04/23/18 10:45 Dose: 2 puff - Objective Vital Signs: Vital Signs Temperature 99.2 F 04/23/18 04:34 Pulse Rate 84 04/23/18 06:00 Respiratory Rate 20 04/23/18 06:00 Blood Pressure 102/55 L 04/23/18 06:00 O2 Sat by Pulse Oximetry (%) 97 04/21/18 16:21 Constitutional: Yes: Mild Distress Eyes: Yes: WNL HENT: Yes: WNL Neck: Yes: WNL Cardiovascular: Yes: Pulse Irregular Respiratory: Yes: Diminished, On Nasal O2 Gastrointestinal: Yes: WNL Musculoskeletal: Yes: Other Extremities: Yes: WNL Edema: Yes Edema: RUE: 1+ Peripheral Pulses WNL: Yes Integumentary: Yes: WNL Wound/Incision: Yes: Clean/Dry Neurological: Yes: WNL ...Motor Strength: WNL Psychiatric: Yes: WNL Labs: CBC, BMP 04/21/18 09:40 04/11/18 05:30 INR, PTT INR 1.18 (0.83-1.09) H 04/21/18 09:40 Fibrinogen > 500.0 mg/dL (238-498) H 04/10/18 13:15 Problem List - Problems (1) Afib Code(s): I48.91 - UNSPECIFIED ATRIAL FIBRILLATION (2) COPD (chronic obstructive pulmonary disease) Code(s): J44.9 - CHRONIC OBSTRUCTIVE PULMONARY DISEASE, UNSPECIFIED Qualifiers: COPD type: unspecified COPD Qualified Code(s): J44.9 - Chronic obstructive pulmonary disease, unspecified (3) Dyspnea Code(s): R06.00 - DYSPNEA, UNSPECIFIED Qualifiers: Dyspnea type: dyspnea on exertion Qualified Code(s): R06.09 - Other forms of dyspnea (4) Hemoptysis Code(s): R04.2 - HEMOPTYSIS (5) Lung mass Code(s): R91.8 - OTHER NONSPECIFIC ABNORMAL FINDING OF LUNG FIELD (6) Paroxysmal atrial fibrillation Code(s): I48.0 - PAROXYSMAL ATRIAL FIBRILLATION (7) SVC syndrome Code(s): I87.1 - COMPRESSION OF VEIN (8) Smoker Code(s): F17.200 - NICOTINE DEPENDENCE, UNSPECIFIED, UNCOMPLICATED Assessment/Plan EVENTS AND NOTES REVIEWED REPEAT THROMBECTOMY WITH IR NEXT WEEK HEPARIN DRIP CARDIO EVAL AND F/U APPRECIATED CHECKING LABS KEEP PTT 50-70 02 SUPPORT PAIN CONTROL
--- NOTE | 2018-04-23 13:04 | PN ---
Progress Note, Physician Chief Complaint: Events noted Not in distress History of Present Illness: Patient was seen and examined. Awake and alert. Chart was reviewed Denies chest pain, SOB or palpitation Right arm swelling Tolerating Heparin drip Periods of low BP - Current Medication List Current Medications: Active Medications Acetaminophen (Tylenol -) 650 mg PO Q6H PRN PRN Reason: PAIN OR FEVER Last Admin: 04/20/18 18:43 Dose: 650 mg Diltiazem HCl (Cardizem Cd -) 180 mg PO DAILY [facility] Last Admin: 04/23/18 10:28 Dose: 180 mg Heparin Sodium (Porcine) (Heparin -) 5,000 unit IVPUSH PRN PRN PRN Reason: Heparin Last Admin: 04/22/18 09:36 Dose: 5,000 unit Heparin Sodium (Porcine) (Heparin -) 1,000 unit IVPUSH PRN PRN PRN Reason: Heparin Heparin Sodium/Dextrose (Heparin Infusion -) 25,000 units in 500 mls @ 20 mls/ hr IVPB TITR [facility]; Protocol Last Admin: 04/22/18 16:56 Dose: 1,250 units/hr, 25 mls/hr Oxycodone HCl (Roxicodone -) 10 mg PO Q6H PRN PRN Reason: PAIN LEVEL 7 - 10 Last Admin: 04/22/18 22:09 Dose: 10 mg Sotalol HCl (Betapace -) 80 mg PO BID [facility] Last Admin: 04/23/18 10:28 Dose: Not Given Tiotropium [place] (Spiriva Respimat) 2 puff IH DAILY [facility] Last Admin: 04/23/18 10:45 Dose: 2 puff - Objective Vital Signs: Vital Signs Temperature 99.2 F 04/23/18 04:34 Pulse Rate 84 04/23/18 06:00 Respiratory Rate 20 04/23/18 06:00 Blood Pressure 102/55 L 04/23/18 06:00 O2 Sat by Pulse Oximetry (%) 97 04/21/18 16:21 Eyes: Yes: PERRL HENT: Yes: Atraumatic Neck: Yes: Supple Cardiovascular: Yes: Regular Rate and Rhythm, S1, S2 Respiratory: Yes: CTA Bilaterally Gastrointestinal: Yes: Normal Bowel Sounds, Soft. No: Tenderness Edema: Yes Edema: RUE: Trace Problem List - Problems (1) COPD (chronic obstructive pulmonary disease) Code(s): J44.9 - CHRONIC OBSTRUCTIVE PULMONARY DISEASE, UNSPECIFIED Qualifiers: COPD type: unspecified COPD Qualified Code(s): J44.9 - Chronic obstructive pulmonary disease, unspecified (2) Lung cancer Code(s): C34.90 - MALIGNANT NEOPLASM OF UNSP PART OF UNSP BRONCHUS OR LUNG (3) Paroxysmal atrial fibrillation Code(s): I48.0 - PAROXYSMAL ATRIAL FIBRILLATION (4) SVC syndrome Code(s): I87.1 - COMPRESSION OF VEIN (5) HTN (hypertension) Code(s): I10 - ESSENTIAL (PRIMARY) HYPERTENSION (6) Diastolic dysfunction with acute on chronic heart failure Code(s): I50.33 - ACUTE ON CHRONIC DIASTOLIC (CONGESTIVE) HEART FAILURE Assessment/Plan 1. SVC Syndrome with thrombus post thrombectomy 2. 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 COPD/Emphysema 4. Palpitations, Paroxysmal Atrial Fibrillation currently in sinus rhythm, [id number] on anticoagulation 5. Diastolic LV dysfunction with class 0 NYHA classification LV failure 6. HTN/HCVD 7. Hep C post-treatment PLAN: 1. Continue Heparin drip pending possible SVC stent 2. Combined RT/chemotherapy and PET scan per Oncology 3. Continue Sotalol 80 BID as tolerated and Cardizem CD 180 QD. Betapace was only given one dose yesterday due to low BP. Instructed to give Betapace and instead can hold Cardizem if BP is low 4. Inhaled bronchodilators, O2 as needed and smoking cessation Further plans to follow Eladio Li MD
[2018-04-23] MEDS: oxyCODONE HCL 5 MG TABLET PO PRN (22:16)
--- NOTE | 2018-04-23 23:10 | PN ---
Progress Note (short form) - Note Progress Note: PAtient seen and examined swelling of face and RUE improved AFVSS Cor: RSR, No murmurs, No gallops Lungs: Clear to P&A Abd: Soft, Normal bowel sounds, No organomegaly Ext:No significant edema A/P 62-year-old male with a history of cigarette smoking, COPD, hypertension, recently diagnosed atrial fibrillation (on Eliquis) and known lung nodule for 20 years. He was scheduled for bronchoscopy in February, but was noted to have new atrial fibrillation at the time of the procedure, so it was deferred. Since that time, he has had worsening symptoms, including dyspnea on minimal exertion and with laying flat (he reports that he now has to sleep upright) and cough with occasional hemoptysis . He presents with worsening dyspnea and new upper extremity edema. He is referred for suspicion of possible SVC syndrome. CT imaging shows large central right upper lobe mass causing narrowing of SVC. Marked narrowing of distal SVC. path c/w --squamous cell carcinoma-- PDL1-0% stage III based on preliminary staging---needs PET-CT to complete staging. MRI brain/bone scan --negative Chemo/RT --carbo/taxol weekly with RT as outpatient SVC thrombosis -- on heprin will consider switching to lovenox on discharge ? hypercoagulable state of malignancy
[2018-04-24 06:27] LABS: HEMATOCRIT 38.7 % (35.4-49); HEMOGLOBIN 12.7 GM/dL (11.7-16.9); MCH 30.2 pg (25.7-33.7); MCHC 32.8 g/dl (32.0-35.9); MEAN PLT VOLUME 7.4 fl (7.5-11.1); PLATELET COUNT 213 K/MM3 (134-434); RDW 15.4 % (11.9-15.9)
[2018-04-24 06:53] LABS: ANION GAP 5 MMOL/L (8-16); BLOOD UREA NITROGEN 12 mg/dL (7-18); CALCIUM 9.6 mg/dL (8.5-10.1); CHLORIDE 106 mmol/L (98-107); CO2 27 mmol/L (21-32); CREATININE 0.7 mg/dL (0.55-1.3); GLUCOSE,RANDOM 95 mg/dL (74-106); POTASSIUM 4.2 mmol/L (3.5-5.1); SODIUM 138 mmol/L (136-145)
[2018-04-24] MEDS ORDERED: PT OWN MED DRAWER 7, Y5N ONE (07:22)
[2018-04-24] MEDS: ACETAMINOPHEN 325 MG TABLET (FP) PO PRN (09:39)
[2018-04-24] MEDS: SOTALOL HCL 80 MG TABLET (FP) PO SCH ×2 (09:41→21:43)
[2018-04-24] MEDS: HEPARIN INFUSION - 25,000 UNITS/500 ML INFUS.BAG IVPB SCH (09:42)
[2018-04-24] MEDS: TIOTROPIUM BROMIDE 2.5 MCG (SPIRIVA) RESPIMAT INHALER IH SCH (09:44)
--- NOTE | 2018-04-24 10:13 | PN ---
Progress Note, Physician History of Present Illness: PULMONARY ALERT,COMFORTABLE AT REST ,FELT DIZZY EARLIER WHILE WASHING UP IN BATHROOM SINCE RESOLVED.PT STATES NOTICED BLOOD IN HIS STOOL EARLIER. - Current Medication List Current Medications: Active Medications Acetaminophen (Tylenol -) 650 mg PO Q6H PRN PRN Reason: PAIN OR FEVER Last Admin: 04/24/18 09:39 Dose: 650 mg Diltiazem HCl (Cardizem Cd -) 180 mg PO DAILY [facility] Last Admin: 04/24/18 09:40 Dose: 180 mg Heparin Sodium (Porcine) (Heparin -) 5,000 unit IVPUSH PRN PRN PRN Reason: Heparin Last Admin: 04/22/18 09:36 Dose: 5,000 unit Heparin Sodium (Porcine) (Heparin -) 1,000 unit IVPUSH PRN PRN PRN Reason: Heparin Heparin Sodium/Dextrose (Heparin Infusion -) 25,000 units in 500 mls @ 20 mls/ hr IVPB TITR [facility]; Protocol Last Admin: 04/24/18 09:42 Dose: 1,250 units/hr, 25 mls/hr Oxycodone HCl (Roxicodone -) 10 mg PO Q6H PRN PRN Reason: PAIN LEVEL 7 - 10 Last Admin: 04/23/18 22:16 Dose: 10 mg Sotalol HCl (Betapace -) 80 mg PO BID [facility] Last Admin: 04/24/18 09:41 Dose: Not Given Tiotropium [place] (Spiriva Respimat) 2 puff IH DAILY [facility] Last Admin: 04/24/18 09:44 Dose: 2 puff - Objective Vital Signs: Vital Signs Temperature 98.4 F 04/24/18 06:44 Pulse Rate 76 04/24/18 06:44 Respiratory Rate 20 04/24/18 06:44 Blood Pressure 96/52 L 04/24/18 06:44 O2 Sat by Pulse Oximetry (%) 95 04/23/18 21:00 Constitutional: Yes: Well Nourished, Calm Eyes: Yes: WNL HENT: Yes: WNL Neck: Yes: WNL Cardiovascular: Yes: Pulse Irregular, S1, S2 Respiratory: Yes: Diminished (DIMINISHED BS R BASE) Gastrointestinal: Yes: Normal Bowel Sounds, Soft Extremities: Yes: WNL Edema: Yes (RUE) Labs: CBC, BMP 04/24/18 05:30 04/24/18 05:30 Problem List - Problems (1) Lung cancer Code(s): C34.90 - MALIGNANT NEOPLASM OF UNSP PART OF UNSP BRONCHUS OR LUNG Assessment/Plan Problem List - Problems (1) SVC syndrome Code(s): I87.1 - COMPRESSION OF VEIN (2) COPD (chronic obstructive pulmonary disease) Code(s): J44.9 - CHRONIC OBSTRUCTIVE PULMONARY DISEASE, UNSPECIFIED (3) Hemoptysis Code(s): R04.2 - HEMOPTYSIS (4) Lung mass Code(s): R91.8 - OTHER NONSPECIFIC ABNORMAL FINDING OF LUNG FIELD (5) Smoker Code(s): F17.200 - NICOTINE DEPENDENCE, UNSPECIFIED, UNCOMPLICATED (6) Paroxysmal atrial fibrillation Code(s): I48.0 - PAROXYSMAL ATRIAL FIBRILLATION Assessment/Plan Squamous Cell CA SVC Syndrome due to Lung Mass COPD Emphysema Hemoptysis Paroxysmal Atrial Fibrillation on anticoagulation Smoker Suspected RLL atelectasis - possible stent placement by IR - AC ,?LOVENOX - Rate control - Inhaled bronchodilators - Pain control - smoking cessation discussed - Monitor UE/chest edema: improving - monitor h+H DR ABRAMS
--- NOTE | 2018-04-24 11:15 | PN ---
Progress Note, Physician Chief Complaint: Events noted Not in distress History of Present Illness: Patient was seen and examined. Awake and alert. Chart was reviewed Denies chest pain, SOB or palpitation Tolerating Heparin drip Periods of low BP still - Current Medication List Current Medications: Active Medications Acetaminophen (Tylenol -) 650 mg PO Q6H PRN PRN Reason: PAIN OR FEVER Last Admin: 04/24/18 09:39 Dose: 650 mg Diltiazem HCl (Cardizem Cd -) 180 mg PO DAILY [facility] Last Admin: 04/24/18 09:40 Dose: 180 mg Heparin Sodium (Porcine) (Heparin -) 5,000 unit IVPUSH PRN PRN PRN Reason: Heparin Last Admin: 04/22/18 09:36 Dose: 5,000 unit Heparin Sodium (Porcine) (Heparin -) 1,000 unit IVPUSH PRN PRN PRN Reason: Heparin Heparin Sodium/Dextrose (Heparin Infusion -) 25,000 units in 500 mls @ 20 mls/ hr IVPB TITR [facility]; Protocol Last Admin: 04/24/18 09:42 Dose: 1,250 units/hr, 25 mls/hr Oxycodone HCl (Roxicodone -) 10 mg PO Q6H PRN PRN Reason: PAIN LEVEL 7 - 10 Last Admin: 04/23/18 22:16 Dose: 10 mg Sotalol HCl (Betapace -) 80 mg PO BID [facility] Last Admin: 04/24/18 09:41 Dose: Not Given Tiotropium [place] (Spiriva Respimat) 2 puff IH DAILY [facility] Last Admin: 04/24/18 09:44 Dose: 2 puff - Objective Vital Signs: Vital Signs Temperature 98.4 F 04/24/18 06:44 Pulse Rate 79 04/24/18 10:00 Respiratory Rate 18 04/24/18 10:00 Blood Pressure 100/65 04/24/18 10:00 O2 Sat by Pulse Oximetry (%) 95 04/24/18 09:00 Eyes: Yes: PERRL HENT: Yes: Atraumatic Neck: Yes: Supple Cardiovascular: Yes: Regular Rate and Rhythm, S1, S2 Respiratory: Yes: CTA Bilaterally Gastrointestinal: Yes: Normal Bowel Sounds, Soft. No: Tenderness Edema: No Additional Findings/Remarks: - Review of Systems Constitutional: no symptoms reported Respiratory: reports Cough and Intermittent Hemoptysis Cardiovascular: denies chest pain or palpitation Gastrointestinal: denies Nausea, Vomiting, Diarrhea, Constipation or Abdominal Pain Genitourinary: no symptoms reported Musculoskeletal: no symptoms reported Endocrine: no symptoms reported Labs: CBC, BMP 04/24/18 05:30 04/24/18 05:30 Problem List - Problems (1) COPD (chronic obstructive pulmonary disease) Code(s): J44.9 - CHRONIC OBSTRUCTIVE PULMONARY DISEASE, UNSPECIFIED Qualifiers: COPD type: unspecified COPD Qualified Code(s): J44.9 - Chronic obstructive pulmonary disease, unspecified (2) Lung cancer Code(s): C34.90 - MALIGNANT NEOPLASM OF UNSP PART OF UNSP BRONCHUS OR LUNG (3) Paroxysmal atrial fibrillation Code(s): I48.0 - PAROXYSMAL ATRIAL FIBRILLATION (4) SVC syndrome Code(s): I87.1 - COMPRESSION OF VEIN (5) HTN (hypertension) Code(s): I10 - ESSENTIAL (PRIMARY) HYPERTENSION (6) Diastolic dysfunction with acute on chronic heart failure Code(s): I50.33 - ACUTE ON CHRONIC DIASTOLIC (CONGESTIVE) HEART FAILURE Assessment/Plan 1. SVC Syndrome with thrombus post thrombectomy 2. 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 COPD/Emphysema 4. Palpitations, Paroxysmal Atrial Fibrillation currently in sinus rhythm, [id number] on anticoagulation 5. Diastolic LV dysfunction with class 0 NYHA classification LV failure 6. HTN/HCVD 7. Hep C post-treatment PLAN: 1. Continue Heparin drip pending possible SVC stent 2. Combined RT/chemotherapy and PET scan per Oncology 3. Continue Sotalol 80 BID as tolerated and Cardizem CD 180 QD. Hold Cardizem if BP is low but would prefer to give Betapace 4. Inhaled bronchodilators, O2 as needed and smoking cessation Further plans to follow Eladio Li MD
--- NOTE | 2018-04-24 14:25 | PN ---
Progress Note, Physician Chief Complaint: AWAKE ALERT FEELING BETTER ON HEPARIN DRIP IN CARDIAC TELE FLOOR DENIES CHEST PAIN OR SOB - Current Medication List Current Medications: Active Medications Acetaminophen (Tylenol -) 650 mg PO Q6H PRN PRN Reason: PAIN OR FEVER Last Admin: 04/24/18 09:39 Dose: 650 mg Diltiazem HCl (Cardizem Cd -) 180 mg PO DAILY [facility] Last Admin: 04/24/18 09:40 Dose: 180 mg Heparin Sodium (Porcine) (Heparin -) 5,000 unit IVPUSH PRN PRN PRN Reason: Heparin Last Admin: 04/22/18 09:36 Dose: 5,000 unit Heparin Sodium (Porcine) (Heparin -) 1,000 unit IVPUSH PRN PRN PRN Reason: Heparin Heparin Sodium/Dextrose (Heparin Infusion -) 25,000 units in 500 mls @ 20 mls/ hr IVPB TITR [facility]; Protocol Last Admin: 04/24/18 09:42 Dose: 1,250 units/hr, 25 mls/hr Oxycodone HCl (Roxicodone -) 10 mg PO Q6H PRN PRN Reason: PAIN LEVEL 7 - 10 Last Admin: 04/23/18 22:16 Dose: 10 mg Sotalol HCl (Betapace -) 80 mg PO BID [facility] Last Admin: 04/24/18 09:41 Dose: Not Given Tiotropium [place] (Spiriva Respimat) 2 puff IH DAILY [facility] Last Admin: 04/24/18 09:44 Dose: 2 puff - Objective Vital Signs: Vital Signs Temperature 98.4 F 04/24/18 06:44 Pulse Rate 79 04/24/18 10:00 Respiratory Rate 18 04/24/18 10:00 Blood Pressure 100/65 04/24/18 10:00 O2 Sat by Pulse Oximetry (%) 95 04/24/18 09:00 Constitutional: Yes: Mild Distress Eyes: Yes: WNL HENT: Yes: WNL Neck: Yes: WNL Cardiovascular: Yes: WNL Respiratory: Yes: Diminished, On Nasal O2 Gastrointestinal: Yes: WNL Genitourinary: Yes: WNL Musculoskeletal: Yes: WNL Extremities: Yes: WNL Edema: No Integumentary: Yes: WNL Wound/Incision: Yes: Clean/Dry Neurological: Yes: WNL ...Motor Strength: WNL Psychiatric: Yes: WNL Labs: CBC, BMP 04/24/18 05:30 04/24/18 05:30 INR, PTT INR 1.18 (0.83-1.09) H 04/21/18 09:40 Fibrinogen > 500.0 mg/dL (238-498) H 04/10/18 13:15 Problem List - Problems (1) Afib Code(s): I48.91 - UNSPECIFIED ATRIAL FIBRILLATION (2) COPD (chronic obstructive pulmonary disease) Code(s): J44.9 - CHRONIC OBSTRUCTIVE PULMONARY DISEASE, UNSPECIFIED Qualifiers: COPD type: unspecified COPD Qualified Code(s): J44.9 - Chronic obstructive pulmonary disease, unspecified (3) Dyspnea Code(s): R06.00 - DYSPNEA, UNSPECIFIED Qualifiers: Dyspnea type: dyspnea on exertion Qualified Code(s): R06.09 - Other forms of dyspnea (4) Hemoptysis Code(s): R04.2 - HEMOPTYSIS (5) Lung mass Code(s): R91.8 - OTHER NONSPECIFIC ABNORMAL FINDING OF LUNG FIELD (6) Paroxysmal atrial fibrillation Code(s): I48.0 - PAROXYSMAL ATRIAL FIBRILLATION (7) SVC syndrome Code(s): I87.1 - COMPRESSION OF VEIN (8) Smoker Code(s): F17.200 - NICOTINE DEPENDENCE, UNSPECIFIED, UNCOMPLICATED Assessment/Plan EVENTS AND NOTES REVIEWED REPEAT THROMBECTOMY WITH IR NEXT WEEK HEPARIN DRIP CARDIO EVAL AND F/U APPRECIATED CHECKING LABS KEEP PTT 50-70 02 SUPPORT PAIN CONTROL
[2018-04-24] MEDS: oxyCODONE HCL 5 MG TABLET PO ONE ×2 (22:02→22:15)
--- NOTE | 2018-04-24 22:43 | PN ---
Progress Note (short form) - Note Progress Note: PAtient seen and examined swelling of face and RUE improved minimal rectal bleeding Last Vital Signs Temp Pulse Resp BP Pulse Ox 98.5 F 85 20 104/63 95 04/25/18 06:23 04/25/18 06:23 04/25/18 06:23 04/25/18 06:23 04/24/18 22:00 Cor: RSR, No murmurs, No gallops Lungs: Clear to P&A Abd: Soft, Normal bowel sounds, No organomegaly Ext:No significant edema Labs/Meds reviewed A/P 62-year-old male with a history of cigarette smoking, COPD, hypertension, recently diagnosed atrial fibrillation (on Eliquis) and known lung nodule for 20 years. He was scheduled for bronchoscopy in February, but was noted to have new atrial fibrillation at the time of the procedure, so it was deferred. Since that time, he has had worsening symptoms, including dyspnea on minimal exertion and with laying flat (he reports that he now has to sleep upright) and cough with occasional hemoptysis . He presents with worsening dyspnea and new upper extremity edema. He is referred for suspicion of possible SVC syndrome. CT imaging shows large central right upper lobe mass causing narrowing of SVC. Marked narrowing of distal SVC. path c/w --squamous cell carcinoma-- PDL1-0% stage III based on preliminary staging---needs PET-CT to complete staging. MRI brain/bone scan --negative Chemo/RT --carbo/taxol weekly with RT as outpatient SVC thrombosis -- on heprin will consider switching to lovenox on discharge ? hypercoagulable state of malignancy Rectal bleeding --monitor
[2018-04-25] MEDS: ACETAMINOPHEN 325 MG TABLET (FP) PO PRN ×2 (09:23→15:06)
[2018-04-25] MEDS: SOTALOL HCL 80 MG TABLET (FP) PO SCH ×2 (09:23→21:30)
[2018-04-25] MEDS: TIOTROPIUM BROMIDE 2.5 MCG (SPIRIVA) RESPIMAT INHALER IH SCH (10:00)
--- NOTE | 2018-04-25 10:50 | PN ---
Progress Note, Physician Chief Complaint: patient seen walking hallways with PT possible SVC angiogram today - Current Medication List Current Medications: Active Medications Acetaminophen (Tylenol -) 650 mg PO Q6H PRN PRN Reason: PAIN OR FEVER Last Admin: 04/25/18 09:23 Dose: 650 mg Diltiazem HCl (Cardizem Cd -) 180 mg PO DAILY [facility] Last Admin: 04/25/18 09:23 Dose: 180 mg Heparin Sodium (Porcine) (Heparin -) 5,000 unit IVPUSH PRN PRN PRN Reason: Heparin Last Admin: 04/22/18 09:36 Dose: 5,000 unit Heparin Sodium (Porcine) (Heparin -) 1,000 unit IVPUSH PRN PRN PRN Reason: Heparin Heparin Sodium/Dextrose (Heparin Infusion -) 25,000 units in 500 mls @ 20 mls/ hr IVPB TITR [facility]; Protocol Last Admin: 04/24/18 09:42 Dose: 1,250 units/hr, 25 mls/hr Sotalol HCl (Betapace -) 80 mg PO BID [facility] Last Admin: 04/25/18 09:23 Dose: 80 mg Tiotropium [place] (Spiriva Respimat) 2 puff IH DAILY [facility] Last Admin: 04/24/18 09:44 Dose: 2 puff - Objective Vital Signs: Vital Signs Temperature 98.5 F 04/25/18 09:49 Pulse Rate 88 04/25/18 09:49 Respiratory Rate 20 04/25/18 09:49 Blood Pressure 150/86 04/25/18 09:49 O2 Sat by Pulse Oximetry (%) 98 04/25/18 07:45 Constitutional: Yes: Calm Cardiovascular: Yes: Regular Rate and Rhythm, S1, S2 Respiratory: Yes: Diminished, On Nasal O2 Gastrointestinal: Yes: Normal Bowel Sounds, Soft Labs: CBC, BMP 04/24/18 05:30 04/24/18 05:30 INR, PTT INR 1.18 (0.83-1.09) H 04/21/18 09:40 Fibrinogen > 500.0 mg/dL (238-498) H 04/10/18 13:15 Problem List - Problems (1) Dyspnea Assessment/Plan: 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 oncology and RT on board outpatient chemo and RT IR tried to palce SVC stent on 04/21 but SVC clot noted and was extracted started on heparin drip possible svc angiogram today Code(s): R06.00 - DYSPNEA, UNSPECIFIED Qualifiers: Dyspnea type: dyspnea on exertion Qualified Code(s): R06.09 - Other forms of dyspnea (2) Lung mass Assessment/Plan: brain MRI negative bone scan negative biopsy shows moderately differentiated squamous cell carcinoma outpatient RT and chemo Code(s): R91.8 - OTHER NONSPECIFIC ABNORMAL FINDING OF LUNG FIELD (3) Afib Assessment/Plan: currently NSR On monitior on heparin drip sotalol and cardizem Code(s): I48.91 - UNSPECIFIED ATRIAL FIBRILLATION (4) COPD (chronic obstructive pulmonary disease) Assessment/Plan: oxygen-humdified bronchodilators Code(s): J44.9 - CHRONIC OBSTRUCTIVE PULMONARY DISEASE, UNSPECIFIED Qualifiers: COPD type: unspecified COPD Qualified Code(s): J44.9 - Chronic obstructive pulmonary disease, unspecified
--- NOTE | 2018-04-25 10:55 | PN ---
Progress Note, Physician History of Present Illness: PULMONARY ALERT,COMFORTABLE,+PICKETT,-CP,-HEMOPTYSIS - Current Medication List Current Medications: Active Medications Acetaminophen (Tylenol -) 650 mg PO Q6H PRN PRN Reason: PAIN OR FEVER Last Admin: 04/25/18 09:23 Dose: 650 mg Diltiazem HCl (Cardizem Cd -) 180 mg PO DAILY [facility] Last Admin: 04/25/18 09:23 Dose: 180 mg Heparin Sodium (Porcine) (Heparin -) 5,000 unit IVPUSH PRN PRN PRN Reason: Heparin Last Admin: 04/22/18 09:36 Dose: 5,000 unit Heparin Sodium (Porcine) (Heparin -) 1,000 unit IVPUSH PRN PRN PRN Reason: Heparin Heparin Sodium/Dextrose (Heparin Infusion -) 25,000 units in 500 mls @ 20 mls/ hr IVPB TITR [facility]; Protocol Last Admin: 04/24/18 09:42 Dose: 1,250 units/hr, 25 mls/hr Sotalol HCl (Betapace -) 80 mg PO BID [facility] Last Admin: 04/25/18 09:23 Dose: 80 mg Tiotropium [place] (Spiriva Respimat) 2 puff IH DAILY [facility] Last Admin: 04/24/18 09:44 Dose: 2 puff - Objective Vital Signs: Vital Signs Temperature 98.5 F 04/25/18 09:49 Pulse Rate 88 04/25/18 09:49 Respiratory Rate 20 04/25/18 09:49 Blood Pressure 150/86 04/25/18 09:49 O2 Sat by Pulse Oximetry (%) 98 04/25/18 07:45 Constitutional: Yes: Well Nourished, Calm Eyes: Yes: WNL HENT: Yes: WNL Neck: Yes: WNL Cardiovascular: Yes: Pulse Irregular, S1, S2 Respiratory: Yes: Diminished Gastrointestinal: Yes: Normal Bowel Sounds, Soft Extremities: Yes: WNL Edema: Yes (DECREASED SWELLING RUE) Labs: CBC, BMP 04/24/18 05:30 04/24/18 05:30 INR, PTT INR 1.18 (0.83-1.09) H 04/21/18 09:40 Fibrinogen > 500.0 mg/dL (238-498) H 04/10/18 13:15 Problem List - Problems (1) Lung cancer Code(s): C34.90 - MALIGNANT NEOPLASM OF UNSP PART OF UNSP BRONCHUS OR LUNG Assessment/Plan Problem List - Problems (1) SVC syndrome Code(s): I87.1 - COMPRESSION OF VEIN (2) COPD (chronic obstructive pulmonary disease) Code(s): J44.9 - CHRONIC OBSTRUCTIVE PULMONARY DISEASE, UNSPECIFIED (3) Hemoptysis Code(s): R04.2 - HEMOPTYSIS (4) Lung mass Code(s): R91.8 - OTHER NONSPECIFIC ABNORMAL FINDING OF LUNG FIELD (5) Smoker Code(s): F17.200 - NICOTINE DEPENDENCE, UNSPECIFIED, UNCOMPLICATED (6) Paroxysmal atrial fibrillation Code(s): I48.0 - PAROXYSMAL ATRIAL FIBRILLATION Assessment/Plan Squamous Cell CA SVC Syndrome due to Lung Mass COPD Emphysema Hemoptysis Paroxysmal Atrial Fibrillation on anticoagulation Smoker Suspected RLL atelectasis - stent placement by IR - AC ,?LOVENOX - Rate control - Inhaled bronchodilators - Pain control - smoking cessation discussed - Monitor UE/chest edema: improving - monitor h+H DR ABRAMS
--- NOTE | 2018-04-25 13:09 | PN ---
Progress Note (short form) - Note Progress Note: Patient seen and examined at bedside no complaints Vital Signs Period Temp Pulse Resp BP Sys/Gtz Pulse Ox Last 24 Hr 98.0 F-98.6 F 72-88 18-20 97-150/54-86 95-98 PE: NAD RRR S1 S2 CTAB the whole RUE is edematous No LE edema Laboratory Last Values WBC 6.0 K/mm3 (4.0-10.0) 04/24/18 05:30 RBC 4.20 M/mm3 (4.00-5.60) 04/24/18 05:30 Hgb 12.7 GM/dL (11.7-16.9) 04/24/18 05:30 Hct 38.7 % (35.4-49) 04/24/18 05:30 MCV 92.0 fl (80-96) 04/24/18 05:30 MCH 30.2 pg (25.7-33.7) 04/24/18 05:30 MCHC 32.8 g/dl (32.0-35.9) 04/24/18 05:30 RDW 15.4 % (11.9-15.9) 04/24/18 05:30 Plt Count 213 K/MM3 (134-434) 04/24/18 05:30 MPV 7.4 fl (7.5-11.1) L 04/24/18 05:30 Absolute Neuts (auto) 3.7 K/mm3 (1.5-8.0) 04/21/18 09:40 Neutrophils % 64.5 % (42.8-82.8) 04/21/18 09:40 Lymphocytes % 20.8 % (8-40) D 04/21/18 09:40 Monocytes % 11.2 % (3.8-10.2) H 04/21/18 09:40 Eosinophils % 2.7 % (0-4.5) 04/21/18 09:40 Basophils % 0.8 % (0-2.0) 04/21/18 09:40 Nucleated RBC % 0 % (0-0) 04/21/18 09:40 PT with INR 14.00 SEC (9.7-13.0) H 04/21/18 09:40 INR 1.18 (0.83-1.09) H 04/21/18 09:40 PTT (Actin FS) 51.3 SECONDS (25.2-36.5) H 04/24/18 05:30 Fibrinogen > 500.0 mg/dL (238-498) H 04/10/18 13:15 Sodium 138 mmol/L (136-145) 04/24/18 05:30 Potassium 4.2 mmol/L (3.5-5.1) 04/24/18 05:30 Chloride 106 mmol/L (98-107) 04/24/18 05:30 Carbon Dioxide 27 mmol/L (21-32) 04/24/18 05:30 Anion Gap 5 MMOL/L (8-16) L 04/24/18 05:30 BUN 12 mg/dL (7-18) 04/24/18 05:30 Creatinine 0.7 mg/dL (0.55-1.3) 04/24/18 05:30 Creat Clearance w eGFR > 60 (>60) 04/24/18 05:30 Random Glucose 95 mg/dL (74-106) 04/24/18 05:30 Calcium 9.6 mg/dL (8.5-10.1) 04/24/18 05:30 Total Bilirubin 0.5 mg/dL (0.2-1) 04/11/18 05:30 AST 14 U/L (15-37) L 04/11/18 05:30 ALT 17 U/L (13-61) 04/11/18 05:30 Alkaline Phosphatase 64 U/L (45-117) 04/11/18 05:30 Troponin I < 0.02 ng/ml (0.00-0.05) 04/07/18 12:50 B-Natriuretic Peptide 32.0 pg/ml (5-125) 04/07/18 12:50 Total Protein 7.3 g/dl (6.4-8.2) 04/11/18 05:30 Albumin 3.3 g/dl (3.4-5.0) L 04/11/18 05:30 Stool Occult Blood Positive (NEGATIVE) 04/24/18 09:02 Blood Type O POSITIVE 04/07/18 17:05 Antibody Screen Negative 04/07/18 12:50 A/P: 62 yo male with PMHx of COPD, paroxysmal atrial fibrillation on eliquis, known lung mass 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 Squamous Cell CA SVC Syndrome due to Lung Mass Paroxysmal Atrial Fibrillation on eliquis COPD Emphysema Hemoptysis Smoker Suspect failed eliquis treatment patient will have SVC stent placed by [facility] [place] in next few days pending supplies ordered and being delivered. Lovenox for outpatient anticoagulation continue heparin gtt for now
--- NOTE | 2018-04-25 19:57 | PN ---
Progress Note, Physician Chief Complaint: Events noted Not in distress History of Present Illness: Patient was seen and examined. Awake and alert. Chart was reviewed Denies chest pain, SOB or palpitation Tolerating Heparin drip and remaining medical therapy - Current Medication List Current Medications: Active Medications Acetaminophen (Tylenol -) 650 mg PO Q6H PRN PRN Reason: PAIN OR FEVER Last Admin: 04/25/18 15:06 Dose: 650 mg Diltiazem HCl (Cardizem Cd -) 180 mg PO DAILY [facility] Last Admin: 04/25/18 09:23 Dose: 180 mg Heparin Sodium (Porcine) (Heparin -) 5,000 unit IVPUSH PRN PRN PRN Reason: Heparin Last Admin: 04/22/18 09:36 Dose: 5,000 unit Heparin Sodium (Porcine) (Heparin -) 1,000 unit IVPUSH PRN PRN PRN Reason: Heparin Heparin Sodium/Dextrose (Heparin Infusion -) 25,000 units in 500 mls @ 20 mls/ hr IVPB TITR [facility]; Protocol Last Admin: 04/24/18 09:42 Dose: 1,250 units/hr, 25 mls/hr Sotalol HCl (Betapace -) 80 mg PO BID [facility] Last Admin: 04/25/18 09:23 Dose: 80 mg Tiotropium [place] (Spiriva Respimat) 2 puff IH DAILY [facility] Last Admin: 04/25/18 10:00 Dose: 2 puff - Objective Vital Signs: Vital Signs Temperature 97.4 F L 04/25/18 17:00 Pulse Rate 77 04/25/18 17:00 Respiratory Rate 20 04/25/18 17:00 Blood Pressure 100/71 04/25/18 17:00 O2 Sat by Pulse Oximetry (%) 98 04/25/18 07:45 HENT: Yes: Atraumatic Neck: Yes: Supple Cardiovascular: Yes: Regular Rate and Rhythm, S1, S2 Respiratory: Yes: CTA Bilaterally Gastrointestinal: Yes: Normal Bowel Sounds, Soft. No: Tenderness Edema: No Additional Findings/Remarks: - Review of Systems Constitutional: no symptoms reported Respiratory: reports Cough and Intermittent Hemoptysis Cardiovascular: denies chest pain or palpitation Gastrointestinal: denies Nausea, Vomiting, Diarrhea, Constipation or Abdominal Pain Genitourinary: no symptoms reported Musculoskeletal: no symptoms reported Endocrine: no symptoms reported Labs: CBC, BMP 04/24/18 05:30 10/21/18 05:30 Problem List - Problems (1) COPD (chronic obstructive pulmonary disease) Code(s): J44.9 - CHRONIC OBSTRUCTIVE PULMONARY DISEASE, UNSPECIFIED Qualifiers: COPD type: unspecified COPD Qualified Code(s): J44.9 - Chronic obstructive pulmonary disease, unspecified (2) Lung cancer Code(s): C34.90 - MALIGNANT NEOPLASM OF UNSP PART OF UNSP BRONCHUS OR LUNG (3) Paroxysmal atrial fibrillation Code(s): I48.0 - PAROXYSMAL ATRIAL FIBRILLATION (4) SVC syndrome Code(s): I87.1 - COMPRESSION OF VEIN (5) HTN (hypertension) Code(s): I10 - ESSENTIAL (PRIMARY) HYPERTENSION (6) Diastolic dysfunction with acute on chronic heart failure Code(s): I50.33 - ACUTE ON CHRONIC DIASTOLIC (CONGESTIVE) HEART FAILURE Assessment/Plan 1. SVC Syndrome with thrombus post thrombectomy 2. 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 COPD/Emphysema 4. Palpitations, Paroxysmal Atrial Fibrillation currently in sinus rhythm, [id number] on anticoagulation 5. Diastolic LV dysfunction with class 0 NYHA classification LV failure 6. HTN/HCVD 7. Hep C post-treatment PLAN: 1. Continue Heparin drip pending possible SVC stent - posponed 2. Combined RT/chemotherapy and PET scan per Oncology 3. Continue Sotalol 80 BID as tolerated and Cardizem CD 180 QD. Hold Cardizem if BP is low but would prefer to continue Sotalol 4. Inhaled bronchodilators, O2 as needed and smoking cessation Further plans to follow Eladio Li MD
[2018-04-25] MEDS: oxyCODONE HCL 5 MG TABLET PO PRN (21:30)
[2018-04-25] MEDS: HEPARIN INFUSION - 25,000 UNITS/500 ML INFUS.BAG IVPB SCH (21:32)
--- NOTE | 2018-04-25 21:52 | PN ---
Progress Note (short form) - Note Progress Note: PAtient seen and examined swelling of face and RUE improved minimal rectal bleeding AFVSS Cor: RSR, No murmurs, No gallops Lungs: Clear to P&A Abd: Soft, Normal bowel sounds, No organomegaly Ext:No significant edema Labs/Meds reviewed A/P 62-year-old male with a history of cigarette smoking, COPD, hypertension, recently diagnosed atrial fibrillation (on Eliquis) and known lung nodule for 20 years. He was scheduled for bronchoscopy in February, but was noted to have new atrial fibrillation at the time of the procedure, so it was deferred. Since that time, he has had worsening symptoms, including dyspnea on minimal exertion and with laying flat (he reports that he now has to sleep upright) and cough with occasional hemoptysis . He presents with worsening dyspnea and new upper extremity edema. He is referred for suspicion of possible SVC syndrome. CT imaging shows large central right upper lobe mass causing narrowing of SVC. Marked narrowing of distal SVC. path c/w --squamous cell carcinoma-- PDL1-0% stage III based on preliminary staging---needs PET-CT to complete staging. MRI brain/bone scan --negative Chemo/RT --carbo/taxol weekly with RT as outpatient SVC thrombosis -- on heparin will consider switching to lovenox on discharge ? hypercoagulable state of malignancy to consider SVC angiogram/stent placement per IR Rectal bleeding --monitor
[2018-04-26 06:36] LABS: BASO % 0.9 % (0-2.0); EOS % 3.1 % (0-4.5); HEMATOCRIT 37.9 % (35.4-49); HEMOGLOBIN 12.3 GM/dL (11.7-16.9); MCH 30.1 pg (25.7-33.7); MCHC 32.5 g/dl (32.0-35.9); MEAN CELL VOLUME 92.7 fl (80-96); MEAN PLT VOLUME 7.1 fl (7.5-11.1); MONO % 13.1 % (3.8-10.2); NEUT % 55.9 % (42.8-82.8); PLATELET COUNT 230 K/MM3 (134-434); RBC 4.09 M/mm3 (4.00-5.60); WHITE BLOOD COUNT 4.8 K/mm3 (4.0-10.0)
[2018-04-26 07:00] LABS: ALBUMIN 3.1 g/dl (3.4-5.0); ALK PHOS 57 U/L (45-117); ANION GAP 6 MMOL/L (8-16); BILIRUBIN,TOTAL 0.3 mg/dL (0.2-1); BLOOD UREA NITROGEN 12 mg/dL (7-18); CALCIUM 9.8 mg/dL (8.5-10.1); CHLORIDE 102 mmol/L (98-107); CO2 28 mmol/L (21-32); CREATININE 0.8 mg/dL (0.55-1.3); GLUCOSE,RANDOM 94 mg/dL (74-106); POTASSIUM 4.1 mmol/L (3.5-5.1); SGOT/AST 17 U/L (15-37); SGPT/ALT 27 U/L (13-61); SODIUM 136 mmol/L (136-145); TOT PROT 6.9 g/dl (6.4-8.2)
--- NOTE | 2018-04-26 07:48 | PN ---
Progress Note (short form) - Note Progress Note: Chief Complaint: Events noted, notes reviewed, dyspnea improved, denies any chest pain, remains in sinus rhythm History of Present Illness: Seen and examined on telemetry. Events noted, notes reviewed, dyspnea improved, denies any chest pain, remains in sinus rhythm Plan to proceed with SVC stent insertion prior to initiation of radiation therapy, olanned for later this week Holter monitor dated 02/22/2018 revealed sinus rhythm with paroxysmal atrial fibrillation/atrial flutter with aberrant conduction (RBBB morphology) 5.44% of time, frequent PAC's, PVC's CT scan of the chest dated 12/22/2017 Large irregular cavitary soft tissue mass involving right superior mediastinum in right to mid and superior hilar region suspicious for primary or secondary malignancy CT scan of the chest dated 04/07/2018 Large central RUL mass with invasion of mediastinum and adjacent consolidation/ATX RUL, distal SVC stenosis without obstruction with collateralization Echocardiograohy dated 03/11/2018 Normal LV and RV size and fxn with abnl LV compliance, mildly dilated ascending aorta, mild MR, TR. tr [place] MPI study dated 03/29/2018 Negative maximal stress test for ischemia, LVEF 60% Medications: Current Medications Acetaminophen (Tylenol -) 650 mg PO Q6H PRN PRN Reason: PAIN OR FEVER Last Admin: 04/25/18 15:06 Dose: 650 mg Diltiazem HCl (Cardizem Cd -) 180 mg PO DAILY [facility] Last Admin: 04/25/18 09:23 Dose: 180 mg Heparin Sodium (Porcine) (Heparin -) 5,000 unit IVPUSH PRN PRN PRN Reason: Heparin Last Admin: 04/22/18 09:36 Dose: 5,000 unit Heparin Sodium (Porcine) (Heparin -) 1,000 unit IVPUSH PRN PRN PRN Reason: Heparin Heparin Sodium/Dextrose (Heparin Infusion -) 25,000 units in 500 mls @ 20 mls/ hr IVPB TITR [facility]; Protocol Last Admin: 04/25/18 21:32 Dose: 1,250 units/hr, 25 mls/hr Oxycodone HCl (Roxicodone -) 10 mg PO Q4H PRN PRN Reason: PAIN LEVEL 7 - 10 Last Admin: 04/25/18 21:30 Dose: 10 mg Oxycodone HCl (Roxicodone -) 5 mg PO Q4H PRN PRN Reason: PAIN LEVEL 4 - 6 Sotalol HCl (Betapace -) 80 mg PO BID [facility] Last Admin: 04/25/18 21:30 Dose: 80 mg Tiotropium [place] (Spiriva Respimat) 2 puff IH DAILY [facility] Last Admin: 04/25/18 10:00 Dose: 2 puff Review of Systems - Review of Systems Constitutional: no symptoms reported Respiratory: reports Cough Cardiovascular: as noted above Gastrointestinal: denies Nausea, Vomiting, Diarrhea, Constipation or Abdominal Pain Genitourinary: no symptoms reported Musculoskeletal: no symptoms reported Endocrine: no symptoms reported Vital Signs: Last Vital Signs Temp Pulse Resp BP Pulse Ox 98.9 F 78 20 110/61 94 L 04/26/18 06:00 04/26/18 08:23 04/26/18 08:23 04/26/18 08:23 04/25/18 22:00 Intake & Output 04/23/18 04/24/18 04/25/18 04/26/18 23:59 23:59 23:59 23:59 Intake Total 107 162 9243 Output Total 117 923 6561 700 Balance 240 450 90 -700 Neck: Supple Negative JVD Respiratory: Diminished Breath Sounds Bilaterally Cardiovascular: S1 S2 Regular Rate and Rhythm Gastrointestinal: Soft Benign Normal Bowel Sounds Ext: Negative Edema Labs: CBC, BMP 04/26/18 05:30 04/26/18 05:30 Assessment/Plan ASSESSMENT: 1. SVC Syndrome related to to mediastinal mass, for stent insertion 2. RUL Lung Mass, moderately differentiated squamous cell carcinoma for therapy initiation 3. COPD/Emphysema 4. Paroxysmal Atrial Fibrillation/paroxysmal atrial flutter [id number] score of 1 on anticoagulation, on Eliquis/Heparin (held for planned procedure/stent) 5. Diastolic LV dysfunction with class 0 NYHA classification LV failure 6. HTN/HCVD 7. Hepatitis C post-treatment 8. Smoker PLAN: 1. Hold Eliquis pending procedure and continue Heparin 2. Continue Betapace with close monitoring of QTc interval 3. Continue Cardizem CD and titrate dosage as tolerated and as needed, hemodynamics permitting 4. No absolute contraindications in proceeding with planned procedure/SVC stent insertion Mary Lou Coffey M.D.
[2018-04-26] MEDS: SOTALOL HCL 80 MG TABLET (FP) PO SCH ×2 (09:46→21:59)
[2018-04-26] MEDS: ACETAMINOPHEN 325 MG TABLET (FP) PO PRN ×3 (09:47→22:05)
[2018-04-26] MEDS: TIOTROPIUM BROMIDE 2.5 MCG (SPIRIVA) RESPIMAT INHALER IH SCH (09:49)
--- NOTE | 2018-04-26 11:27 | PN ---
Progress Note, Physician History of Present Illness: pulmonary alert,feeling better,less dyspneic,less swellings - Current Medication List Current Medications: Active Medications Acetaminophen (Tylenol -) 650 mg PO Q6H PRN PRN Reason: PAIN OR FEVER Last Admin: 04/26/18 09:47 Dose: 650 mg Diltiazem HCl (Cardizem Cd -) 180 mg PO DAILY [facility] Last Admin: 04/26/18 09:46 Dose: 180 mg Heparin Sodium (Porcine) (Heparin -) 5,000 unit IVPUSH PRN PRN PRN Reason: Heparin Last Admin: 04/22/18 09:36 Dose: 5,000 unit Heparin Sodium (Porcine) (Heparin -) 1,000 unit IVPUSH PRN PRN PRN Reason: Heparin Heparin Sodium/Dextrose (Heparin Infusion -) 25,000 units in 500 mls @ 20 mls/ hr IVPB TITR [facility]; Protocol Last Admin: 04/25/18 21:32 Dose: 1,250 units/hr, 25 mls/hr Oxycodone HCl (Roxicodone -) 10 mg PO Q4H PRN PRN Reason: PAIN LEVEL 7 - 10 Last Admin: 04/25/18 21:30 Dose: 10 mg Oxycodone HCl (Roxicodone -) 5 mg PO Q4H PRN PRN Reason: PAIN LEVEL 4 - 6 Sotalol HCl (Betapace -) 80 mg PO BID [facility] Last Admin: 04/26/18 09:46 Dose: 80 mg Tiotropium [place] (Spiriva Respimat) 2 puff IH DAILY [facility] Last Admin: 04/26/18 09:49 Dose: 2 puff - Objective Vital Signs: Vital Signs Temperature 98.9 F 04/26/18 06:00 Pulse Rate 78 04/26/18 08:23 Respiratory Rate 20 04/26/18 08:23 Blood Pressure 110/61 04/26/18 08:23 O2 Sat by Pulse Oximetry (%) 94 L 04/25/18 22:00 Constitutional: Yes: Well Nourished, Calm Eyes: Yes: WNL HENT: Yes: WNL Neck: Yes: WNL Cardiovascular: Yes: Pulse Irregular, S1, S2 Respiratory: Yes: Diminished Gastrointestinal: Yes: Normal Bowel Sounds, Soft Extremities: Yes: WNL Edema: Yes (RLE) Labs: CBC, BMP 04/26/18 05:30 04/26/18 05:30 INR, PTT INR 1.18 (0.83-1.09) H 04/21/18 09:40 Fibrinogen > 500.0 mg/dL (238-498) H 04/10/18 13:15 Problem List - Problems (1) Lung cancer Code(s): C34.90 - MALIGNANT NEOPLASM OF UNSP PART OF UNSP BRONCHUS OR LUNG Assessment/Plan Problem List - Problems (1) SVC syndrome Code(s): I87.1 - COMPRESSION OF VEIN (2) COPD (chronic obstructive pulmonary disease) Code(s): J44.9 - CHRONIC OBSTRUCTIVE PULMONARY DISEASE, UNSPECIFIED (3) Hemoptysis Code(s): R04.2 - HEMOPTYSIS (4) Lung mass Code(s): R91.8 - OTHER NONSPECIFIC ABNORMAL FINDING OF LUNG FIELD (5) Smoker Code(s): F17.200 - NICOTINE DEPENDENCE, UNSPECIFIED, UNCOMPLICATED (6) Paroxysmal atrial fibrillation Code(s): I48.0 - PAROXYSMAL ATRIAL FIBRILLATION Assessment/Plan Squamous Cell CA SVC Syndrome due to Lung Mass COPD Emphysema Hemoptysis Paroxysmal Atrial Fibrillation on anticoagulation Smoker Suspected RLL atelectasis - stent placement by IR - AC ,?LOVENOX - Rate control - Inhaled bronchodilators - Pain control - smoking cessation discussed - Monitor UE/chest edema: improving - monitor h+H DR ABRAMS
--- NOTE | 2018-04-26 11:39 | PN ---
Progress Note (short form) - Note Progress Note: Patient seen and examined at bedside no complaints feels like his right arm swelling improved pending SVC stent-stent not in stock but ordered and awaiting delivery Vital Signs Temperature 98.9 F 04/26/18 06:00 Pulse Rate 78 04/26/18 08:23 Respiratory Rate 20 04/26/18 08:23 Blood Pressure 110/61 04/26/18 08:23 O2 Sat by Pulse Oximetry (%) 94 L 04/25/18 22:00 PE: NAD RRR S1 S2 CTAB the whole RUE is edematous No LE edema Laboratory Last Values WBC 4.8 K/mm3 (4.0-10.0) 04/26/18 05:30 RBC 4.09 M/mm3 (4.00-5.60) 04/26/18 05:30 Hgb 12.3 GM/dL (11.7-16.9) 04/26/18 05:30 Hct 37.9 % (35.4-49) 04/26/18 05:30 MCV 92.7 fl (80-96) 04/26/18 05:30 MCH 30.1 pg (25.7-33.7) 04/26/18 05:30 MCHC 32.5 g/dl (32.0-35.9) 04/26/18 05:30 RDW 15.0 % (11.9-15.9) 04/26/18 05:30 Plt Count 230 K/MM3 (134-434) 04/26/18 05:30 MPV 7.1 fl (7.5-11.1) L 04/26/18 05:30 Absolute Neuts (auto) 2.7 K/mm3 (1.5-8.0) 04/26/18 05:30 Neutrophils % 55.9 % (42.8-82.8) 04/26/18 05:30 Lymphocytes % 27.0 % (8-40) D 04/26/18 05:30 Monocytes % 13.1 % (3.8-10.2) H 04/26/18 05:30 Eosinophils % 3.1 % (0-4.5) 04/26/18 05:30 Basophils % 0.9 % (0-2.0) 04/26/18 05:30 Nucleated RBC % 0 % (0-0) 04/26/18 05:30 PT with INR 14.00 SEC (9.7-13.0) H 04/21/18 09:40 INR 1.18 (0.83-1.09) H 04/21/18 09:40 PTT (Actin FS) 51.3 SECONDS (25.2-36.5) H 04/24/18 05:30 Fibrinogen > 500.0 mg/dL (238-498) H 04/10/18 13:15 Sodium 136 mmol/L (136-145) 04/26/18 05:30 Potassium 4.1 mmol/L (3.5-5.1) 04/26/18 05:30 Chloride 102 mmol/L (98-107) 04/26/18 05:30 Carbon Dioxide 28 mmol/L (21-32) 04/26/18 05:30 Anion Gap 6 MMOL/L (8-16) L 04/26/18 05:30 BUN 12 mg/dL (7-18) 04/26/18 05:30 Creatinine 0.8 mg/dL (0.55-1.3) 04/26/18 05:30 Creat Clearance w eGFR > 60 (>60) 04/26/18 05:30 Random Glucose 94 mg/dL (74-106) 04/26/18 05:30 Calcium 9.8 mg/dL (8.5-10.1) 04/26/18 05:30 Total Bilirubin 0.3 mg/dL (0.2-1) 04/26/18 05:30 AST 17 U/L (15-37) 04/26/18 05:30 ALT 27 U/L (13-61) 04/26/18 05:30 Alkaline Phosphatase 57 U/L (45-117) 04/26/18 05:30 Troponin I < 0.02 ng/ml (0.00-0.05) 04/07/18 12:50 B-Natriuretic Peptide 32.0 pg/ml (5-125) 04/07/18 12:50 Total Protein 6.9 g/dl (6.4-8.2) 04/26/18 05:30 Albumin 3.1 g/dl (3.4-5.0) L 04/26/18 05:30 Stool Occult Blood Positive (NEGATIVE) 04/24/18 09:02 HIV 1&2 Antibody Screen Negative 04/25/18 16:40 HIV P24 Antigen Negative 04/25/18 16:40 Blood Type O POSITIVE 04/07/18 17:05 Antibody Screen Negative 04/07/18 12:50 A/P: 62 yo male with PMHx of COPD, paroxysmal atrial fibrillation on eliquis, known lung mass 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 Squamous Cell CA SVC Syndrome due to Lung Mass Paroxysmal Atrial Fibrillation on eliquis COPD Emphysema Hemoptysis Smoker Suspect failed eliquis treatment patient will have SVC stent placed by IR hopefully in next few days pending supplies being delivered. Lovenox for outpatient anticoagulation continue heparin gtt for now Check PTT
--- NOTE | 2018-04-26 12:06 | PN ---
Progress Note, Physician Chief Complaint: SVC syndrome History of Present Illness: Had partial thrombectomy by IR last week due to intolerance of anistreplase. IR was not able to place SVC stent. Pt currently on heparin drip. Plan is to complete thrombectomy this week with TPA (awaiting on infusion catheter) and stent the SVC. Pt medically stable at this time. Noted Guaiac positive H/H stable at this time - Current Medication List Current Medications: Active Medications Acetaminophen (Tylenol -) 650 mg PO Q6H PRN PRN Reason: PAIN OR FEVER Last Admin: 04/26/18 09:47 Dose: 650 mg Diltiazem HCl (Cardizem Cd -) 180 mg PO DAILY [facility] Last Admin: 04/26/18 09:46 Dose: 180 mg Heparin Sodium (Porcine) (Heparin -) 5,000 unit IVPUSH PRN PRN PRN Reason: Heparin Last Admin: 04/22/18 09:36 Dose: 5,000 unit Heparin Sodium (Porcine) (Heparin -) 1,000 unit IVPUSH PRN PRN PRN Reason: Heparin Heparin Sodium/Dextrose (Heparin Infusion -) 25,000 units in 500 mls @ 20 mls/ hr IVPB TITR [facility]; Protocol Last Admin: 04/25/18 21:32 Dose: 1,250 units/hr, 25 mls/hr Oxycodone HCl (Roxicodone -) 10 mg PO Q4H PRN PRN Reason: PAIN LEVEL 7 - 10 Last Admin: 04/25/18 21:30 Dose: 10 mg Oxycodone HCl (Roxicodone -) 5 mg PO Q4H PRN PRN Reason: PAIN LEVEL 4 - 6 Sotalol HCl (Betapace -) 80 mg PO BID [facility] Last Admin: 04/26/18 09:46 Dose: 80 mg Tiotropium [place] (Spiriva Respimat) 2 puff IH DAILY [facility] Last Admin: 04/26/18 09:49 Dose: 2 puff - Objective Vital Signs: Vital Signs Temperature 98.9 F 04/26/18 06:00 Pulse Rate 78 04/26/18 08:23 Respiratory Rate 20 04/26/18 08:23 Blood Pressure 110/61 04/26/18 08:23 O2 Sat by Pulse Oximetry (%) 94 L 04/25/18 22:00 Constitutional: Yes: Well Nourished, No Distress, Calm Cardiovascular: Yes: Regular Rate and Rhythm Respiratory: Yes: Regular Gastrointestinal: Yes: Normal Bowel Sounds, Soft Musculoskeletal: Yes: WNL Extremities: Yes: WNL Edema: No Peripheral Pulses WNL: Yes Neurological: Yes: Alert, Oriented Psychiatric: Yes: Alert, Oriented Labs: CBC, BMP 04/26/18 05:30 04/26/18 05:30 INR, PTT INR 1.18 (0.83-1.09) H 04/21/18 09:40 Fibrinogen > 500.0 mg/dL (238-498) H 04/10/18 13:15 Problem List - Problems (1) Afib Assessment/Plan: -Tele monitoring -Cardiology on board -On heparin drip -On CCB and BB Code(s): I48.91 - UNSPECIFIED ATRIAL FIBRILLATION (2) Lung cancer Assessment/Plan: Oncology and pulmonary on board Code(s): C34.90 - MALIGNANT NEOPLASM OF UNSP PART OF UNSP BRONCHUS OR LUNG (3) SVC syndrome Assessment/Plan: -Seen by IR -Heparin drip -Complete thrombectomy and then SVC stent Code(s): I87.1 - COMPRESSION OF VEIN (4) Guaiac positive stools Assessment/Plan: -GI consult -monitor H/H -Likely no intervention at this time. Code(s): R19.5 - OTHER FECAL ABNORMALITIES (5) Dyspnea Assessment/Plan: -improved -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 -oncology and RT on board outpatient chemo and RT Code(s): R06.00 - DYSPNEA, UNSPECIFIED Qualifiers: Dyspnea type: dyspnea on exertion Qualified Code(s): R06.09 - Other forms of dyspnea Assessment/Plan see problem list Walking well with physical therapy
[2018-04-26] MEDS: oxyCODONE HCL 5 MG TABLET PO PRN ×2 (14:53→22:05)
--- NOTE | 2018-04-26 15:41 | HOSP ---
Subjective - Review of Symptoms Subjective: called for CP Patient states he had Sudden onset R sided CP with radiation down the RUE. however on further talking he has been having this intermittently for the past 2 weeks. this pain is similar in nature of what he has been experiencing during those episodes. Pain resolves with tylenol. states he has notified his doctor of his symptoms but worse now. HR 76 afebrile. RUE BP 102/62 LUE BP 85/65 pt is sitting comfortable in the room General NAD, CV S1 S2 RRR no murmur/rub/gallop +chest wall tenderness across the chest no JVD Extremities RUE is swollen. not tender, sensation grossly intact pulse 2+ both extremities no paradoxial pulse EKG reviewed NSR. 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 However concern arises for aortic dissection with difference in BP. although less likely given the fact the patient has been having the symptoms for >2weeks. pt also appears comfortable. will obtain stat cardiac markers. CXR to look for widened mediastinum. although not the best study something that can be obtained quickly and consider proceeding wtih CTA if concerning. will repeat BP again to ensure that they are equal. call place out to PMD to notify Physical Examination Vital Signs: Vital Signs Temperature 98.1 F 04/26/18 14:00 Pulse Rate 75 04/26/18 14:00 Respiratory Rate 20 04/26/18 14:15 Blood Pressure 102/62 04/26/18 14:00 O2 Sat by Pulse Oximetry (%) 97 04/26/18 14:17 Labs: CBC, BMP 04/26/18 05:30 04/26/18 05:30
--- NOTE | 2018-04-26 15:44 | PN ---
Progress Note (short form) - Note Progress Note: asked to evaluate guaiac + stool. i spoke with Mr. Reina. 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 Harris who performed colonoscopy 5 years ago. polyps were removed. Just prior to this admission Mr. Reina saw Dr. Alva as an outpatient, who was arranging outpatient colonoscopy. Advised Estevan Truong NP that she call Dr. Alva for further evaluation and to arrange outpatient follow-up.
--- NOTE | 2018-04-26 17:41 | EKG ---
Test Reason : Blood Pressure : / mmHG Vent. Rate : 071 BPM Atrial Rate : 071 BPM P-R Int : 192 ms QRS Dur : 082 ms QT Int : 394 ms P-R-T Axes : 055 -08 029 degrees QTc Int : 428 ms NORMAL SINUS RHYTHM NORMAL ECG WHEN COMPARED WITH ECG OF 11-APR-2018 09:14, NO SIGNIFICANT CHANGE WAS FOUND Confirmed by Berto Perez MD ([id number]) on 04/26/2018 5:41:01 PM Referred By: CELSO RAMIREZ Confirmed By:Berto Perez MD
[2018-04-26] MEDS: HEPARIN INFUSION - 25,000 UNITS/500 ML INFUS.BAG IVPB SCH (20:00)
--- NOTE | 2018-04-26 20:27 | PN ---
Progress Note (short form) - Note Progress Note: Radiation Oncology Remains clinically stable with SVC compression from NSCLC. MRI brain/BS neg for mets. Seems locally advanced NSCLC. Outpatient PET-CT. IR attempted SVC stent placement but unable due to need for thrombectomy. Spoke to IR. Will reattempt with TPA lysis this week. Will plan concurrent RT and chemo after stent. Spoke to pt who wishes to proceed.
[2018-04-27] MEDS ORDERED: PT OWN MED DRAWER 7, Y5N ONE (09:09)
[2018-04-27] MEDS: HEPARIN INFUSION - 25,000 UNITS/500 ML INFUS.BAG IVPB SCH (09:37)
[2018-04-27] MEDS: SOTALOL HCL 80 MG TABLET (FP) PO SCH ×2 (09:37→21:41)
[2018-04-27] MEDS: TIOTROPIUM BROMIDE 2.5 MCG (SPIRIVA) RESPIMAT INHALER IH SCH (09:39)
[2018-04-27] MEDS: ACETAMINOPHEN 325 MG TABLET (FP) PO PRN ×2 (11:08→17:28)
--- NOTE | 2018-04-27 11:28 | PN ---
Progress Note, Physician History of Present Illness: PULMONARY ALERT,FEELING BETTER,LESS DYSPNEIC - Current Medication List Current Medications: Active Medications Acetaminophen (Tylenol -) 650 mg PO Q6H PRN PRN Reason: PAIN OR FEVER Last Admin: 04/27/18 11:08 Dose: 650 mg Diltiazem HCl (Cardizem Cd -) 180 mg PO DAILY [facility] Last Admin: 04/27/18 09:37 Dose: 180 mg Heparin Sodium (Porcine) (Heparin -) 5,000 unit IVPUSH PRN PRN PRN Reason: Heparin Last Admin: 04/22/18 09:36 Dose: 5,000 unit Heparin Sodium (Porcine) (Heparin -) 1,000 unit IVPUSH PRN PRN PRN Reason: Heparin Heparin Sodium/Dextrose (Heparin Infusion -) 25,000 units in 500 mls @ 20 mls/ hr IVPB TITR [facility]; Protocol Last Admin: 04/27/18 09:37 Dose: 1,250 units/hr, 25 mls/hr Oxycodone HCl (Roxicodone -) 10 mg PO Q4H PRN PRN Reason: PAIN LEVEL 7 - 10 Last Admin: 04/26/18 22:05 Dose: 10 mg Oxycodone HCl (Roxicodone -) 5 mg PO Q4H PRN PRN Reason: PAIN LEVEL 4 - 6 Last Admin: 04/26/18 14:53 Dose: 5 mg Sotalol HCl (Betapace -) 80 mg PO BID [facility] Last Admin: 04/27/18 09:37 Dose: 80 mg Tiotropium [place] (Spiriva Respimat) 2 puff IH DAILY [facility] Last Admin: 04/27/18 09:39 Dose: 2 puff - Objective Vital Signs: Vital Signs Temperature 98.6 F 04/27/18 06:00 Pulse Rate 71 04/27/18 06:00 Respiratory Rate 20 04/27/18 06:00 Blood Pressure 114/57 L 04/27/18 06:00 O2 Sat by Pulse Oximetry (%) 96 04/27/18 06:00 Constitutional: Yes: Well Nourished, Calm Eyes: Yes: WNL HENT: Yes: WNL Neck: Yes: WNL Cardiovascular: Yes: Pulse Irregular, S1, S2 Respiratory: Yes: Diminished Gastrointestinal: Yes: Normal Bowel Sounds, Soft Extremities: Yes: WNL Edema: Yes (RUE) Labs: CBC, BMP Problem List - Problems (1) Lung cancer Code(s): C34.90 - MALIGNANT NEOPLASM OF UNSP PART OF UNSP BRONCHUS OR LUNG Assessment/Plan Problem List - Problems (1) SVC syndrome Code(s): I87.1 - COMPRESSION OF VEIN (2) COPD (chronic obstructive pulmonary disease) Code(s): J44.9 - CHRONIC OBSTRUCTIVE PULMONARY DISEASE, UNSPECIFIED (3) Hemoptysis Code(s): R04.2 - HEMOPTYSIS (4) Lung mass Code(s): R91.8 - OTHER NONSPECIFIC ABNORMAL FINDING OF LUNG FIELD (5) Smoker Code(s): F17.200 - NICOTINE DEPENDENCE, UNSPECIFIED, UNCOMPLICATED (6) Paroxysmal atrial fibrillation Code(s): I48.0 - PAROXYSMAL ATRIAL FIBRILLATION Assessment/Plan Squamous Cell CA SVC Syndrome due to Lung Mass COPD Emphysema Hemoptysis Paroxysmal Atrial Fibrillation on anticoagulation Smoker Suspected RLL atelectasis - stent placement by IR - AC ,?LOVENOX - Rate control - Inhaled bronchodilators - Pain control - smoking cessation discussed - Monitor UE/chest edema: improving - monitor h+H DR ABRAMS
--- NOTE | 2018-04-27 12:06 | PN ---
Progress Note, Physician History of Present Illness: No further episodes of rapid afib after Cardizem CD added, SVG angiogram shows thrombus, underwent thrombectomy, thrombolysis and placed on heparin gtt. Facial and RUE swelling improving. - Current Medication List Current Medications: Active Medications Acetaminophen (Tylenol -) 650 mg PO Q6H PRN PRN Reason: PAIN OR FEVER Last Admin: 04/27/18 11:08 Dose: 650 mg Diltiazem HCl (Cardizem Cd -) 180 mg PO DAILY [facility] Last Admin: 04/27/18 09:37 Dose: 180 mg Heparin Sodium (Porcine) (Heparin -) 5,000 unit IVPUSH PRN PRN PRN Reason: Heparin Last Admin: 04/22/18 09:36 Dose: 5,000 unit Heparin Sodium (Porcine) (Heparin -) 1,000 unit IVPUSH PRN PRN PRN Reason: Heparin Heparin Sodium/Dextrose (Heparin Infusion -) 25,000 units in 500 mls @ 20 mls/ hr IVPB TITR [facility]; Protocol Last Admin: 04/27/18 09:37 Dose: 1,250 units/hr, 25 mls/hr Oxycodone HCl (Roxicodone -) 10 mg PO Q4H PRN PRN Reason: PAIN LEVEL 7 - 10 Last Admin: 04/26/18 22:05 Dose: 10 mg Oxycodone HCl (Roxicodone -) 5 mg PO Q4H PRN PRN Reason: PAIN LEVEL 4 - 6 Last Admin: 04/26/18 14:53 Dose: 5 mg Sotalol HCl (Betapace -) 80 mg PO BID [facility] Last Admin: 04/27/18 09:37 Dose: 80 mg Tiotropium [place] (Spiriva Respimat) 2 puff IH DAILY [facility] Last Admin: 04/27/18 09:39 Dose: 2 puff - Objective Vital Signs: Vital Signs Temperature 97.9 F 04/27/18 10:00 Pulse Rate 76 04/27/18 10:00 Respiratory Rate 18 04/27/18 10:00 Blood Pressure 113/60 04/27/18 10:00 O2 Sat by Pulse Oximetry (%) 94 L 04/27/18 10:00 Constitutional: Yes: No Distress, Calm Neck: Yes: Supple Cardiovascular: Yes: Regular Rate and Rhythm Respiratory: Yes: Regular, CTA Bilaterally Gastrointestinal: Yes: Normal Bowel Sounds, Soft Edema: No Labs: CBC, BMP 04/26/18 05:30 04/26/18 05:30 INR, PTT INR 1.18 (0.83-1.09) H 04/21/18 09:40 Fibrinogen > 500.0 mg/dL (238-498) H 04/10/18 13:15 - ....Imaging EKG: Report Reviewed (Tele: NSR) Problem List - Problems (1) COPD (chronic obstructive pulmonary disease) Code(s): J44.9 - CHRONIC OBSTRUCTIVE PULMONARY DISEASE, UNSPECIFIED Qualifiers: COPD type: unspecified COPD Qualified Code(s): J44.9 - Chronic obstructive pulmonary disease, unspecified (2) Dyspnea Code(s): R06.00 - DYSPNEA, UNSPECIFIED Qualifiers: Dyspnea type: dyspnea on exertion Qualified Code(s): R06.09 - Other forms of dyspnea (3) Hemoptysis Code(s): R04.2 - HEMOPTYSIS (4) Lung mass Code(s): R91.8 - OTHER NONSPECIFIC ABNORMAL FINDING OF LUNG FIELD (5) Paroxysmal atrial fibrillation Code(s): I48.0 - PAROXYSMAL ATRIAL FIBRILLATION (6) SVC syndrome Code(s): I87.1 - COMPRESSION OF VEIN (7) Smoker Code(s): F17.200 - NICOTINE DEPENDENCE, UNSPECIFIED, UNCOMPLICATED (8) Anticoagulant long-term use Code(s): Z79.01 - [place] (CURRENT) USE OF 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 (9) DVT (deep venous thrombosis) Code(s): I82.409 - ACUTE EMBOLISM AND THOMBOS UNSP DEEP VN UNSP LOWER EXTREMITY Qualifiers: DVT location: upper extremity Affected thrombotic vein of extremity: other upper extremity vein Chronicity: acute Laterality: right Qualified Code(s) : I82.621 - Acute embolism and thrombosis of deep veins of right upper extremity Assessment/Plan 02/22/2018 Holter Monitor: SR with paroxysmal afib/flutter with aberrant conduction (RBBB morphology) 5.44% of time, frequent PAC, PVC 12/22/2017 Large irregular cavitary soft tissue mass involving right superior mediastinum in right to mid and superior hilar region suspicious for primary or secondary malignancy 04/07/2018 Large central RUL mass with invasion of mediastinum and adjacent consolidation/ATX RUL, distal SVC stenosis without obstruction with collateralization 03/11/2018 Echo: Normal LV and RV size and fxn with abnl LV compliance, mildly dilated ascending aorta, mild MR, TR. tr [place] 03/29/2018 ETT Myoview: Negative maximal stress test for ischemia, LVEF 60% 04/14/2018 Brain MRI: No metastases 1. SVC Syndrome with SVC thrombus post thrombectomy 2. 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 COPD/Emphysema 4. Palpitations, Paroxysmal Atrial Fibrillation->SR [id number] on anticoagulation 5. Diastolic LV dysfunction with class 0 NYHA classification LV failure 6. HTN/HCVD 7. Hep C post-treatment 8. Smoker Plan: 1. On Heparin gtt pending repeat SVG angiogram to document clot clearance and possible SVC stent placement 2. Combined RT/chemotherapy, PET scanning per oncology 3. Continue sotalol 80 bid, cardizem CD 180 qd 4. Inhaled bronchodilators, O2 as needed, smoking cessation
--- NOTE | 2018-04-27 14:09 | PN ---
Progress Note (short form) - Note Progress Note: Patient seen and examined at bedside no complaints right arm and facial swelling improved Vital Signs Temperature 97.9 F 04/27/18 10:00 Pulse Rate 76 04/27/18 10:00 Respiratory Rate 18 04/27/18 10:00 Blood Pressure 113/60 04/27/18 10:00 O2 Sat by Pulse Oximetry (%) 94 L 04/27/18 10:00 PE: NAD RRR S1 S2 CTAB the whole RUE is edematous but significantly improved No LE edema 04/09/18 08:30 Blood Culture - Final Blood - Peripheral Venous NO GROWTH AFTER 5 DAYS INCUBATION 04/09/18 08:20 Blood Culture - Final Blood - Peripheral Venous NO GROWTH AFTER 5 DAYS INCUBATION 04/09/18 10:20 Gram Stain - Final Sputum - Expectorated Sputum Culture - Final Citrobacter Koseri 04/09/18 10:20 Urine Culture - Final Urine - Urine Clean Catch NO GROWTH OBTAINED A/P: 62 yo male with PMHx of COPD, paroxysmal atrial fibrillation on eliquis, known lung mass 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 Squamous Cell CA SVC Syndrome due to Lung Mass Paroxysmal Atrial Fibrillation on eliquis COPD Emphysema Hemoptysis Smoker Suspect failed eliquis treatment patient will have thrombolysis and possible SVC stent today Lovenox for outpatient anticoagulation continue heparin gtt for now PTT 53.1
[2018-04-27] MEDS: oxyCODONE HCL 5 MG TABLET PO PRN ×2 (17:28→21:45)
--- NOTE | 2018-04-27 18:49 | PN ---
Teaching Attending Note Name of Resident: Logan Espino ATTENDING PHYSICIAN STATEMENT I saw and evaluated the patient. I reviewed the resident's note and discussed the case with the resident. I agree with the resident's findings and plan as documented. SUBJECTIVE: Patient seen and examined For stent placement on 04/28 PE Rales right base RUE edema On heparin platelets acceptable Future- combined RT/Chemotherapy. OBJECTIVE: ASSESSMENT AND PLAN:
--- NOTE | 2018-04-27 18:56 | PN ---
Progress Note, Physician Chief Complaint: SVC syndrome History of Present Illness: Had partial thrombectomy by IR last week due to intolerance of anistreplase. IR was not able to place SVC stent. Pt currently on heparin drip. Plan is to complete thrombectomy this week with TPA (awaiting on infusion catheter) and stent the SVC. Pt medically stable at this time. Noted Guaiac positive H/H stable at this time - Current Medication List Current Medications: Active Medications Acetaminophen (Tylenol -) 650 mg PO Q6H PRN PRN Reason: PAIN OR FEVER Last Admin: 04/27/18 17:28 Dose: 650 mg Diltiazem HCl (Cardizem Cd -) 180 mg PO DAILY [facility] Last Admin: 04/27/18 09:37 Dose: 180 mg Heparin Sodium (Porcine) (Heparin -) 5,000 unit IVPUSH PRN PRN PRN Reason: Heparin Last Admin: 04/22/18 09:36 Dose: 5,000 unit Heparin Sodium (Porcine) (Heparin -) 1,000 unit IVPUSH PRN PRN PRN Reason: Heparin Heparin Sodium/Dextrose (Heparin Infusion -) 25,000 units in 500 mls @ 20 mls/ hr IVPB TITR [facility]; Protocol Last Admin: 04/27/18 09:37 Dose: 1,250 units/hr, 25 mls/hr Oxycodone HCl (Roxicodone -) 10 mg PO Q4H PRN PRN Reason: PAIN LEVEL 7 - 10 Last Admin: 04/26/18 22:05 Dose: 10 mg Oxycodone HCl (Roxicodone -) 5 mg PO Q4H PRN PRN Reason: PAIN LEVEL 4 - 6 Last Admin: 04/27/18 17:28 Dose: 5 mg Sotalol HCl (Betapace -) 80 mg PO BID [facility] Last Admin: 04/27/18 09:37 Dose: 80 mg Tiotropium [place] (Spiriva Respimat) 2 puff IH DAILY [facility] Last Admin: 04/27/18 09:39 Dose: 2 puff - Objective Vital Signs: Vital Signs Temperature 98.5 F 04/27/18 14:00 Pulse Rate 73 04/27/18 14:00 Respiratory Rate 20 04/27/18 14:00 Blood Pressure 111/68 04/27/18 14:00 O2 Sat by Pulse Oximetry (%) 94 L 04/27/18 10:00 Constitutional: Yes: Well Nourished, No Distress, Calm Cardiovascular: Yes: Regular Rate and Rhythm Respiratory: Yes: Regular, On Nasal O2, SOB on Exertion Gastrointestinal: Yes: Normal Bowel Sounds, Soft Musculoskeletal: Yes: WNL Extremities: Yes: WNL Edema: No Peripheral Pulses WNL: Yes Neurological: Yes: Alert, Oriented Psychiatric: Yes: Alert, Oriented Labs: CBC, BMP 04/26/18 05:30 04/26/18 05:30 INR, PTT INR 1.18 (0.83-1.09) H 04/21/18 09:40 Fibrinogen > 500.0 mg/dL (238-498) H 04/10/18 13:15 Problem List - Problems (1) Afib Assessment/Plan: -Tele monitoring -Cardiology on board -On heparin drip -On CCB and BB Code(s): I48.91 - UNSPECIFIED ATRIAL FIBRILLATION (2) Lung cancer Assessment/Plan: Oncology and pulmonary on board Code(s): C34.90 - MALIGNANT NEOPLASM OF UNSP PART OF UNSP BRONCHUS OR LUNG (3) SVC syndrome Assessment/Plan: -Seen by IR -Heparin drip -Complete thrombectomy and then SVC stent in AM -Would need Lovenox outpatient for anticoagulation due to failure to Eliquis Code(s): I87.1 - COMPRESSION OF VEIN (4) Guaiac positive stools Assessment/Plan: -GI consult -monitor H/H -Likely no intervention at this time. Code(s): R19.5 - OTHER FECAL ABNORMALITIES (5) Dyspnea Assessment/Plan: -improved -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 -oncology and RT on board outpatient chemo and RT Code(s): R06.00 - DYSPNEA, UNSPECIFIED Qualifiers: Dyspnea type: dyspnea on exertion Qualified Code(s): R06.09 - Other forms of dyspnea Assessment/Plan see problem list self ambulatory disability forms to be filled out and faxed to [place]. I was able to retrieve forms, would complete and fax them in AM.
[2018-04-28] MEDS: HEPARIN INFUSION - 25,000 UNITS/500 ML INFUS.BAG IVPB SCH (06:14)
[2018-04-28] MEDS: TIOTROPIUM BROMIDE 2.5 MCG (SPIRIVA) RESPIMAT INHALER IH SCH (09:14)
[2018-04-28] MEDS: SOTALOL HCL 80 MG TABLET (FP) PO SCH ×2 (09:15→22:08)
--- NOTE | 2018-04-28 10:07 | PN ---
Progress Note, Physician History of Present Illness: No further episodes of rapid afib after Cardizem CD added, plan for repeat SVG angiogram and stent placement 04/28/2018. Facial and RUE swelling improving. - Current Medication List Current Medications: Active Medications Acetaminophen (Tylenol -) 650 mg PO Q6H PRN PRN Reason: PAIN OR FEVER Last Admin: 04/27/18 17:28 Dose: 650 mg Diltiazem HCl (Cardizem Cd -) 180 mg PO DAILY [facility] Last Admin: 04/28/18 09:15 Dose: 180 mg Heparin Sodium (Porcine) (Heparin -) 5,000 unit IVPUSH PRN PRN PRN Reason: Heparin Last Admin: 04/22/18 09:36 Dose: 5,000 unit Heparin Sodium (Porcine) (Heparin -) 1,000 unit IVPUSH PRN PRN PRN Reason: Heparin Heparin Sodium/Dextrose (Heparin Infusion -) 25,000 units in 500 mls @ 20 mls/ hr IVPB TITR [facility]; Protocol Last Admin: 04/28/18 06:14 Dose: 1,250 units/hr, 25 mls/hr Oxycodone HCl (Roxicodone -) 10 mg PO Q4H PRN PRN Reason: PAIN LEVEL 7 - 10 Last Admin: 04/27/18 21:45 Dose: 10 mg Oxycodone HCl (Roxicodone -) 5 mg PO Q4H PRN PRN Reason: PAIN LEVEL 4 - 6 Last Admin: 04/27/18 17:28 Dose: 5 mg Sotalol HCl (Betapace -) 80 mg PO BID [facility] Last Admin: 04/28/18 09:15 Dose: 80 mg Tiotropium [place] (Spiriva Respimat) 2 puff IH DAILY [facility] Last Admin: 04/28/18 09:14 Dose: 2 puff - Objective Vital Signs: Vital Signs Temperature 99.7 F H 04/28/18 06:00 Pulse Rate 79 04/28/18 06:00 Respiratory Rate 20 04/28/18 06:00 Blood Pressure 92/53 L 04/28/18 06:00 O2 Sat by Pulse Oximetry (%) 94 L 04/27/18 22:00 Constitutional: Yes: No Distress, Calm Neck: Yes: Supple Cardiovascular: Yes: Regular Rate and Rhythm Respiratory: Yes: Regular, CTA Bilaterally Gastrointestinal: Yes: Normal Bowel Sounds, Soft Edema: No Labs: CBC, BMP 04/26/18 05:30 04/26/18 05:30 INR, PTT INR 1.18 (0.83-1.09) H 04/21/18 09:40 Fibrinogen > 500.0 mg/dL (238-498) H 04/10/18 13:15 - ....Imaging EKG: Report Reviewed (NSR) Problem List - Problems (1) COPD (chronic obstructive pulmonary disease) Code(s): J44.9 - CHRONIC OBSTRUCTIVE PULMONARY DISEASE, UNSPECIFIED Qualifiers: COPD type: unspecified COPD Qualified Code(s): J44.9 - Chronic obstructive pulmonary disease, unspecified (2) Dyspnea Code(s): R06.00 - DYSPNEA, UNSPECIFIED Qualifiers: Dyspnea type: dyspnea on exertion Qualified Code(s): R06.09 - Other forms of dyspnea (3) Hemoptysis Code(s): R04.2 - HEMOPTYSIS (4) Lung mass Code(s): R91.8 - OTHER NONSPECIFIC ABNORMAL FINDING OF LUNG FIELD (5) Paroxysmal atrial fibrillation Code(s): I48.0 - PAROXYSMAL ATRIAL FIBRILLATION (6) SVC syndrome Code(s): I87.1 - COMPRESSION OF VEIN (7) Smoker Code(s): F17.200 - NICOTINE DEPENDENCE, UNSPECIFIED, UNCOMPLICATED (8) Anticoagulant long-term use Code(s): Z79.01 - APARTMENT MAINTENANCE (CURRENT) USE OF 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 (9) DVT (deep venous thrombosis) Code(s): I82.409 - ACUTE EMBOLISM AND THOMBOS UNSP DEEP VN UNSP LOWER EXTREMITY Qualifiers: DVT location: upper extremity Affected thrombotic vein of extremity: other upper extremity vein Chronicity: acute Laterality: right Qualified Code(s) : I82.621 - Acute embolism and thrombosis of deep veins of right upper extremity Assessment/Plan 02/22/2018 Holter Monitor: SR with paroxysmal afib/flutter with aberrant conduction (RBBB morphology) 5.44% of time, frequent PAC, PVC 12/22/2017 Large irregular cavitary soft tissue mass involving right superior mediastinum in right to mid and superior hilar region suspicious for primary or secondary malignancy 04/07/2018 Large central RUL mass with invasion of mediastinum and adjacent consolidation/ATX RUL, distal SVC stenosis without obstruction with collateralization 03/11/2018 Echo: Normal LV and RV size and fxn with abnl LV compliance, mildly dilated ascending aorta, mild MR, TR. tr [place] 03/29/2018 ETT Myoview: Negative maximal stress test for ischemia, LVEF 60% 04/14/2018 Brain MRI: No metastases 1. SVC Syndrome with SVC thrombus post thrombectomy now planned for repeat SVG angigram and stent placement 2. 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 COPD/Emphysema 4. Palpitations, Paroxysmal Atrial Fibrillation->SR [id number] on anticoagulation 5. Diastolic LV dysfunction with class 0 NYHA classification LV failure 6. HTN/HCVD 7. Hep C post-treatment 8. Smoker Plan: 1. On Heparin gtt -> Eliquis 5 bid post procedure 2. Combined RT/chemotherapy, PET scanning per oncology 3. Continue sotalol 80 bid, cardizem CD 180 qd 4. Inhaled bronchodilators, O2 as needed, smoking cessation
--- NOTE | 2018-04-28 10:18 | PN ---
Progress Note (short form) - Note Progress Note: Patient seen and examined at bedside no complaints right arm and facial swelling improved left arm swelling resolved Vital Signs Temperature 97.9 F 04/27/18 10:00 Pulse Rate 76 04/27/18 10:00 Respiratory Rate 18 04/27/18 10:00 Blood Pressure 113/60 04/27/18 10:00 O2 Sat by Pulse Oximetry (%) 94 L 04/27/18 10:00 PE: NAD RRR S1 S2 faint bibasilar crackles the whole RUE is edematous but significantly improved No LE edema 04/09/18 08:30 Blood Culture - Final Blood - Peripheral Venous NO GROWTH AFTER 5 DAYS INCUBATION 04/09/18 08:20 Blood Culture - Final Blood - Peripheral Venous NO GROWTH AFTER 5 DAYS INCUBATION 04/09/18 10:20 Gram Stain - Final Sputum - Expectorated Sputum Culture - Final Citrobacter Koseri 04/09/18 10:20 Urine Culture - Final Urine - Urine Clean Catch NO GROWTH OBTAINED A/P: 62 yo male with PMHx of COPD, paroxysmal atrial fibrillation on eliquis, known lung mass 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 Squamous Cell CA SVC Syndrome due to Lung Mass Paroxysmal Atrial Fibrillation on eliquis COPD Emphysema Hemoptysis Smoker Suspect failed eliquis treatment patient will have thrombolysis and possible SVC stent today Lovenox for outpatient anticoagulation continue heparin gtt for now Will follow after procedure
--- NOTE | 2018-04-28 11:03 | PN ---
Progress Note, Physician History of Present Illness: pulmonary alert,feeling better,for stent today - Current Medication List Current Medications: Active Medications Acetaminophen (Tylenol -) 650 mg PO Q6H PRN PRN Reason: PAIN OR FEVER Last Admin: 04/27/18 17:28 Dose: 650 mg Diltiazem HCl (Cardizem Cd -) 180 mg PO DAILY [facility] Last Admin: 04/28/18 09:15 Dose: 180 mg Heparin Sodium (Porcine) (Heparin -) 5,000 unit IVPUSH PRN PRN PRN Reason: Heparin Last Admin: 04/22/18 09:36 Dose: 5,000 unit Heparin Sodium (Porcine) (Heparin -) 1,000 unit IVPUSH PRN PRN PRN Reason: Heparin Heparin Sodium/Dextrose (Heparin Infusion -) 25,000 units in 500 mls @ 20 mls/ hr IVPB TITR [facility]; Protocol Last Admin: 04/28/18 06:14 Dose: 1,250 units/hr, 25 mls/hr Oxycodone HCl (Roxicodone -) 10 mg PO Q4H PRN PRN Reason: PAIN LEVEL 7 - 10 Last Admin: 04/27/18 21:45 Dose: 10 mg Oxycodone HCl (Roxicodone -) 5 mg PO Q4H PRN PRN Reason: PAIN LEVEL 4 - 6 Last Admin: 04/27/18 17:28 Dose: 5 mg Sotalol HCl (Betapace -) 80 mg PO BID [facility] Last Admin: 04/28/18 09:15 Dose: 80 mg Tiotropium [place] (Spiriva Respimat) 2 puff IH DAILY [facility] Last Admin: 04/28/18 09:14 Dose: 2 puff - Objective Vital Signs: Vital Signs Temperature 98.6 F 04/28/18 10:00 Pulse Rate 74 04/28/18 10:00 Respiratory Rate 18 04/28/18 10:00 Blood Pressure 102/63 04/28/18 10:00 O2 Sat by Pulse Oximetry (%) 94 L 04/28/18 10:00 Constitutional: Yes: Well Nourished, Calm Eyes: Yes: WNL HENT: Yes: WNL Neck: Yes: WNL Cardiovascular: Yes: Pulse Irregular, S1, S2 Respiratory: Yes: Diminished Gastrointestinal: Yes: Normal Bowel Sounds, Soft Extremities: Yes: WNL Edema: Yes (less swelling rue) Labs: CBC, BMP Problem List - Problems (1) Lung cancer Code(s): C34.90 - MALIGNANT NEOPLASM OF UNSP PART OF UNSP BRONCHUS OR LUNG Assessment/Plan Problem List - Problems (1) SVC syndrome Code(s): I87.1 - COMPRESSION OF VEIN (2) COPD (chronic obstructive pulmonary disease) Code(s): J44.9 - CHRONIC OBSTRUCTIVE PULMONARY DISEASE, UNSPECIFIED (3) Hemoptysis Code(s): R04.2 - HEMOPTYSIS (4) Lung mass Code(s): R91.8 - OTHER NONSPECIFIC ABNORMAL FINDING OF LUNG FIELD (5) Smoker Code(s): F17.200 - NICOTINE DEPENDENCE, UNSPECIFIED, UNCOMPLICATED (6) Paroxysmal atrial fibrillation Code(s): I48.0 - PAROXYSMAL ATRIAL FIBRILLATION Assessment/Plan Squamous Cell CA SVC Syndrome due to Lung Mass COPD Emphysema Hemoptysis Paroxysmal Atrial Fibrillation on anticoagulation Smoker Suspected RLL atelectasis - stent placement by IR - AC ,?LOVENOX - Rate control - Inhaled bronchodilators - Pain control - smoking cessation discussed - Monitor UE/chest edema: improving - monitor h+H DR ABRAMS
--- NOTE | 2018-04-28 11:50 | PN ---
Progress Note, Physician Chief Complaint: patient to go to stent placement today\ awake alert in bed no distress - Current Medication List Current Medications: Active Medications Acetaminophen (Tylenol -) 650 mg PO Q6H PRN PRN Reason: PAIN OR FEVER Last Admin: 04/27/18 17:28 Dose: 650 mg Diltiazem HCl (Cardizem Cd -) 180 mg PO DAILY [facility] Last Admin: 04/28/18 09:15 Dose: 180 mg Heparin Sodium (Porcine) (Heparin -) 5,000 unit IVPUSH PRN PRN PRN Reason: Heparin Last Admin: 04/22/18 09:36 Dose: 5,000 unit Heparin Sodium (Porcine) (Heparin -) 1,000 unit IVPUSH PRN PRN PRN Reason: Heparin Heparin Sodium/Dextrose (Heparin Infusion -) 25,000 units in 500 mls @ 20 mls/ hr IVPB TITR [facility]; Protocol Last Admin: 04/28/18 06:14 Dose: 1,250 units/hr, 25 mls/hr Oxycodone HCl (Roxicodone -) 10 mg PO Q4H PRN PRN Reason: PAIN LEVEL 7 - 10 Last Admin: 04/27/18 21:45 Dose: 10 mg Oxycodone HCl (Roxicodone -) 5 mg PO Q4H PRN PRN Reason: PAIN LEVEL 4 - 6 Last Admin: 04/27/18 17:28 Dose: 5 mg Sotalol HCl (Betapace -) 80 mg PO BID [facility] Last Admin: 04/28/18 09:15 Dose: 80 mg Tiotropium [place] (Spiriva Respimat) 2 puff IH DAILY [facility] Last Admin: 04/28/18 09:14 Dose: 2 puff - Objective Vital Signs: Vital Signs Temperature 98.6 F 04/28/18 10:00 Pulse Rate 74 04/28/18 10:00 Respiratory Rate 18 04/28/18 10:00 Blood Pressure 102/63 04/28/18 10:00 O2 Sat by Pulse Oximetry (%) 94 L 04/28/18 10:00 Constitutional: Yes: Calm HENT: Yes: Other (facial swelling much improved) Cardiovascular: Yes: Pulse Irregular, S1, S2 Respiratory: Yes: Diminished, On Nasal O2 Gastrointestinal: Yes: Normal Bowel Sounds, Soft Neurological: Yes: Alert, Oriented Labs: CBC, BMP 04/26/18 05:30 04/26/18 05:30 INR, PTT INR 1.18 (0.83-1.09) H 04/21/18 09:40 Fibrinogen > 500.0 mg/dL (238-498) H 04/10/18 13:15 Problem List - Problems (1) Dyspnea Assessment/Plan: 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 oncology and RT on board outpatient chemo and RT IR tried to palce SVC stent on 04/21 but SVC clot noted and was extracted started on heparin drip possible svc angiogram today and stent placement today Code(s): R06.00 - DYSPNEA, UNSPECIFIED Qualifiers: Dyspnea type: dyspnea on exertion Qualified Code(s): R06.09 - Other forms of dyspnea (2) Lung mass Assessment/Plan: brain MRI negative bone scan negative biopsy shows moderately differentiated squamous cell carcinoma outpatient RT and chemo Code(s): R91.8 - OTHER NONSPECIFIC ABNORMAL FINDING OF LUNG FIELD (3) Afib Assessment/Plan: on heparin drip sotalol and cardizem Code(s): I48.91 - UNSPECIFIED ATRIAL FIBRILLATION (4) COPD (chronic obstructive pulmonary disease) Assessment/Plan: oxygen-humdified bronchodilators Code(s): J44.9 - CHRONIC OBSTRUCTIVE PULMONARY DISEASE, UNSPECIFIED Qualifiers: COPD type: unspecified COPD Qualified Code(s): J44.9 - Chronic obstructive pulmonary disease, unspecified
--- NOTE | 2018-04-28 18:24 | CON.GI ---
Consult Consult Specialty:: GI Referred by:: Dr. Veliz Reason for Consultation:: ask to be seen because of guiac positive stool. - History of Present Illness History of Present Illness: 62 Y M w pmhx of colonic polyps was admitted of a lung mass associated with SVC syndrome. On random labs pt was noted to have guiac positive stool. Pt is undergoing further evaluation in management of his lung mass. - Past Medical History Cardio/Vascular: Yes: AFIB, HTN, Other (smoker with lung mass) Pulmonary: Yes: COPD - Past Surgical History Past Surgical History: Yes: Cholecystectomy, Hernia Repair - Alcohol/Substance Use Hx Alcohol Use: No - Smoking History Smoking history: Current every day smoker Have you smoked in the past 12 months: Yes Aproximately how many cigarettes per day: 5 - Social History Usual Living Arrangement: Alone ADL: Independent History of Recent Travel: No Home Medications - Allergies Allergies/Adverse Reactions: Allergies Allergy/AdvReac Type Severity Reaction Status Date / Time No Known Allergies Allergy Verified 04/07/18 10:50 - Home Medications Home Medications: Ambulatory Orders Albuterol Sulfate [Proventil HFA Inhaler -] 1 - 2 inh PO QID 02/22/18 Tiotropium Br/Olodaterol HCl [Stiolto Respimat Inhal [place]] 4 gm IH DAILY Apixaban [Eliquis] 5 mg PO BID 04/07/18 Metoprolol Succinate [Toprol Xl] 50 mg PO BID 04/07/18 Oxycodone HCl/Acetaminophen [Oxycodone-Acetaminophen 10-325] 1 each PO Q4H PRN 04/07/18 Family Disease History - Family Disease History Family Disease History: Diabetes: Brother ( with lung cancer) Other Family History: Father and Mother alive in s. Physical Exam-GI Vital Signs: Vital Signs Temperature 98.6 F 04/28/18 10:00 Pulse Rate 74 04/28/18 10:00 Respiratory Rate 18 04/28/18 10:00 Blood Pressure 102/63 04/28/18 10:00 O2 Sat by Pulse Oximetry (%) 94 L 04/28/18 10:00 Constitutional: Yes: Well Nourished Eyes: Yes: Conjunctiva Clear HENT: Yes: Atraumatic Neck: Yes: Supple Respiratory: Yes: Rales (--bilateral) Labs: CBC, BMP 04/26/18 05:30 04/26/18 05:30 INR, PTT INR 1.18 (0.83-1.09) H 04/21/18 09:40 Fibrinogen > 500.0 mg/dL (238-498) H 04/10/18 13:15 Problem List - Problems (1) Guaiac positive stools Assessment/Plan: further GI workup as an outpatient for possible repeat colonoscopy once medically cleared. Please recall as necessary. Pt was made aware to follow up for his colonoscopy as an outpatient. Code(s): R19.5 - OTHER FECAL ABNORMALITIES
[2018-04-28 19:41] LABS: BASO % 0.8 % (0-2.0); EOS % 3.8 % (0-4.5); HEMATOCRIT 36.1 % (35.4-49); HEMOGLOBIN 12.2 GM/dL (11.7-16.9); LYMPH % 23.7 % (8-40); MCH 31.2 pg (25.7-33.7); MCHC 33.9 g/dl (32.0-35.9); MEAN CELL VOLUME 92.1 fl (80-96); MEAN PLT VOLUME 7.4 fl (7.5-11.1); MONO % 14.3 % (3.8-10.2); NEUT % 57.4 % (42.8-82.8); PLATELET COUNT 220 K/MM3 (134-434); RBC 3.92 M/mm3 (4.00-5.60); RDW 14.9 % (11.9-15.9); WHITE BLOOD COUNT 4.8 K/mm3 (4.0-10.0)
[2018-04-28 20:21] LABS: ALBUMIN 3.2 g/dl (3.4-5.0); ALK PHOS 66 U/L (45-117); ANION GAP 11 MMOL/L (8-16); BILIRUBIN,TOTAL 0.4 mg/dL (0.2-1); BLOOD UREA NITROGEN 15 mg/dL (7-18); CALCIUM 9.7 mg/dL (8.5-10.1); CHLORIDE 101 mmol/L (98-107); CO2 27 mmol/L (21-32); CREATININE 0.8 mg/dL (0.55-1.3); GLUCOSE,RANDOM 111 mg/dL (74-106); POTASSIUM 4.2 mmol/L (3.5-5.1); SGOT/AST 15 U/L (15-37); SGPT/ALT 30 U/L (13-61); SODIUM 139 mmol/L (136-145); TOT PROT 7.3 g/dl (6.4-8.2)
[2018-04-28 20:25] LABS: INR 1.2 (0.83-1.09); PROTHROMBIN TIME (PATIENT) 14.2 SEC (9.7-13.0)
[2018-04-28] MEDS: HEPARIN NA (PORCINE) 5,000 UNITS/ML 1ML VIAL IVPUSH PRN (20:38)
[2018-04-28] MEDS: oxyCODONE HCL 5 MG TABLET PO PRN (22:07)
--- NOTE | 2018-04-28 23:11 | PN ---
Progress Note (short form) - Note Progress Note: PAtient seen and examined swelling of face and RUE improved Refused stent placement today by IR Last Vital Signs Temp Pulse Resp BP Pulse Ox 99.0 F 74 20 111/51 L 94 L 04/29/18 01:00 04/29/18 01:00 04/29/18 01:00 04/29/18 01:00 04/28/18 22:00 Cor: RSR, No murmurs, No gallops Lungs: Clear to P&A Abd: Soft, Normal bowel sounds, No organomegaly Ext:No significant edema Labs/Meds reviewed A/P 62-year-old male with a history of cigarette smoking, COPD, hypertension, recently diagnosed atrial fibrillation (on Eliquis) and known lung nodule for 20 years. He was scheduled for bronchoscopy in February, but was noted to have new atrial fibrillation at the time of the procedure, so it was deferred. Since that time, he has had worsening symptoms, including dyspnea on minimal exertion and with laying flat (he reports that he now has to sleep upright) and cough with occasional hemoptysis . He presents with worsening dyspnea and new upper extremity edema. He is referred for suspicion of possible SVC syndrome. CT imaging shows large central right upper lobe mass causing narrowing of SVC. Marked narrowing of distal SVC. path c/w --squamous cell carcinoma-- PDL1-0% stage III based on preliminary staging---needs PET-CT to complete staging. MRI brain/bone scan --negative Chemo/RT --carbo/taxol weekly with RT as outpatient SVC thrombosis -- on heparin will consider switching to lovenox on discharge ? hypercoagulable state of malignancy refused stent placement by IR Wants to discuss with his family before making any other treatment decisions and will be able to do that on 04/30 per patient discussed various options in great detail
[2018-04-29] MEDS: HEPARIN INFUSION - 25,000 UNITS/500 ML INFUS.BAG IVPB SCH ×2 (01:35→17:12)
[2018-04-29] MEDS: oxyCODONE HCL 5 MG TABLET PO PRN ×3 (04:00→21:45)
[2018-04-29] MEDS ORDERED: PT OWN MED DRAWER 7, Y5N ONE (09:21)
[2018-04-29] MEDS: SOTALOL HCL 80 MG TABLET (FP) PO SCH ×2 (09:58→21:42)
[2018-04-29] MEDS: TIOTROPIUM BROMIDE 2.5 MCG (SPIRIVA) RESPIMAT INHALER IH SCH (09:59)
--- NOTE | 2018-04-29 10:42 | DS ---
Physical Examination Vital Signs: Vital Signs Temperature 98.6 F 04/29/18 09:00 Pulse Rate 82 04/29/18 09:00 Respiratory Rate 20 04/29/18 09:00 Blood Pressure 104/63 04/29/18 09:00 O2 Sat by Pulse Oximetry (%) 94 L 04/29/18 10:00 Constitutional: Yes: Calm HENT: Yes: Other (facial swelling much reduced) Neck: Yes: Trachea Midline Cardiovascular: Yes: Regular Rate and Rhythm, S1, S2 Respiratory: Yes: CTA Bilaterally, Diminished (at bases) Gastrointestinal: Yes: Normal Bowel Sounds, Soft Edema: No Neurological: Yes: Alert, Oriented Labs: CBC, BMP 04/28/18 18:30 04/28/18 18:30 Discharge Summary Reason For Visit: HEMOPTYSIS,DYSPNEA,LUNG MASS Current Active Problems Afib (Acute) Anticoagulant long-term use (Acute) COPD (chronic obstructive pulmonary disease) (Acute) DVT (deep venous thrombosis) (Acute) Diastolic dysfunction with acute on chronic heart failure (Acute) Dyspnea (Acute) Guaiac positive stools (Acute) HTN (hypertension) (Acute) Hemoptysis (Acute) Lung cancer (Acute) Paroxysmal atrial fibrillation (Acute) SVC syndrome (Acute) Smoker (Acute) Procedures: Principal: 04/21 SVC clot extracted via IR started on heparin drip Other Procedures: chest CT large central upper lobe mass with extension into mediastinum. suspicion for SVC syndrome. brain MRI negative. bone scan negative. lung biopsy- mod differentiated squamous cell carcinoma Hospital Course: - Primary Care Physician PCP: Brandon Mensah I - Admission Chief Complaint: weight gain UE edema and facial edema History of Present Illness: CHIEF COMPLAINT: Shortness of breath HISTORY OF PRESENT ILLNESS: This is a 62-year-old male with a history of cigarette smoking, COPD, hypertension, recently diagnosed atrial fibrillation ( on Eliquis) and known lung nodule for 20 years. He was scheduled for bronchoscopy in February, but was noted to have new atrial fibrillation at the time of the procedure, so it was deferred. Since that time, he has had worsening symptoms, including dyspnea on minimal exertion and with laying flat ( he reports that he now has to sleep upright) and cough with occasional hemoptysis ("a spot" of blood). 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 He is referred for suspicion of possible SVC syndrome.per patient he has gained 9 months with increase in upper arms and face swelling Vital signs on arrival are notable for SpO2 90% on room air. PCP: Dr. Ling Mensah Skip Miner Blasting: Dr. Coffey Web Marketing Analyst: Dr. Arceo History Source: Patient - Past Medical History Cardiovascular: Yes: AFIB, HTN, Other (smoker with lung mass) Pulmonary: Yes: COPD during hospital course: yue by pulm,heme lung biopsy done, SVC clot extracted started on heparin drip patient does not want svc stent placed he wants a second opinion wants to transfer to [facility] under the oncology team paroxysmal afib: cardizem and sotalol- eliquis on hold on heparin drip needs radiation and chemotherapy Condition: Guarded - Instructions Referrals: Pa Arceo MD, MD [Primary Care Provider] - Disposition: TRANSFER ACUTE CARE/OTHER HOSP - Home Medications Comprehensive Discharge Medication List: Ambulatory Orders Albuterol Sulfate [Proventil HFA Inhaler -] 1 - 2 inh PO QID 02/22/18 Tiotropium Br/Olodaterol HCl [Stiolto Respimat Inhal [place]] 4 gm IH DAILY Apixaban [Eliquis] 5 mg PO BID 04/07/18 Metoprolol Succinate [Toprol Xl] 50 mg PO BID 04/07/18 Oxycodone HCl/Acetaminophen [Oxycodone-Acetaminophen 10-325] 1 each PO Q4H PRN 04/07/18
--- NOTE | 2018-04-29 10:48 | PN ---
Progress Note (short form) - Note Progress Note: Patient seen and examined at bedside no complaints right arm and facial swelling improving left arm swelling resolved refused stent placement by IR due to risks or getting "pieces of the clot in my lung and no one guaranteeing me I'm going to be ok after the procedure" Vital Signs Temperature 97.9 F 04/27/18 10:00 Pulse Rate 76 04/27/18 10:00 Respiratory Rate 18 04/27/18 10:00 Blood Pressure 113/60 04/27/18 10:00 O2 Sat by Pulse Oximetry (%) 94 L 04/27/18 10:00 PE: NAD RRR S1 S2 faint bibasilar crackles the whole RUE is edematous but significantly improved No LE edema 04/09/18 08:30 Blood Culture - Final Blood - Peripheral Venous NO GROWTH AFTER 5 DAYS INCUBATION 04/09/18 08:20 Blood Culture - Final Blood - Peripheral Venous NO GROWTH AFTER 5 DAYS INCUBATION 04/09/18 10:20 Gram Stain - Final Sputum - Expectorated Sputum Culture - Final Citrobacter Koseri 04/09/18 10:20 Urine Culture - Final Urine - Urine Clean Catch NO GROWTH OBTAINED A/P: 62 yo male with PMHx of COPD, paroxysmal atrial fibrillation on eliquis, known lung mass 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 Squamous Cell CA SVC Syndrome due to Lung Mass Paroxysmal Atrial Fibrillation on eliquis COPD Emphysema Hemoptysis Smoker Suspect failed eliquis treatment refusing SVC stet and thrombolysis States he is beig transferred to [facility] would consider Lovenox for outpatient anticoagulation continue heparin gtt for now Will follow
--- NOTE | 2018-04-29 11:24 | PN ---
Progress Note, Physician History of Present Illness: No further episodes of rapid afib after Cardizem CD added, declined repeat SVG angiogram and stent placement 04/28/2018. Facial and RUE swelling improving. - Current Medication List Current Medications: Active Medications Acetaminophen (Tylenol -) 650 mg PO Q6H PRN PRN Reason: PAIN OR FEVER Last Admin: 04/27/18 17:28 Dose: 650 mg Diltiazem HCl (Cardizem Cd -) 180 mg PO DAILY [facility] Last Admin: 04/29/18 09:59 Dose: 180 mg Heparin Sodium (Porcine) (Heparin -) 5,000 unit IVPUSH PRN PRN PRN Reason: Heparin Last Admin: 04/28/18 20:38 Dose: 5,000 unit Heparin Sodium (Porcine) (Heparin -) 1,000 unit IVPUSH PRN PRN PRN Reason: Heparin Heparin Sodium/Dextrose (Heparin Infusion -) 25,000 units in 500 mls @ 20 mls/ hr IVPB TITR [facility]; Protocol Last Admin: 04/29/18 01:35 Dose: 1,400 units/hr, 28 mls/hr Oxycodone HCl (Roxicodone -) 10 mg PO Q4H PRN PRN Reason: PAIN LEVEL 7 - 10 Last Admin: 04/29/18 04:00 Dose: 10 mg Oxycodone HCl (Roxicodone -) 5 mg PO Q4H PRN PRN Reason: PAIN LEVEL 4 - 6 Last Admin: 04/27/18 17:28 Dose: 5 mg Sotalol HCl (Betapace -) 80 mg PO BID [facility] Last Admin: 04/29/18 09:58 Dose: 80 mg Tiotropium [place] (Spiriva Respimat) 2 puff IH DAILY [facility] Last Admin: 04/29/18 09:59 Dose: 2 puff - Objective Vital Signs: Vital Signs Temperature 98.6 F 04/29/18 09:00 Pulse Rate 82 04/29/18 09:00 Respiratory Rate 20 04/29/18 09:00 Blood Pressure 104/63 04/29/18 09:00 O2 Sat by Pulse Oximetry (%) 94 L 04/29/18 10:00 Constitutional: Yes: No Distress, Calm Neck: Yes: Supple Cardiovascular: Yes: Regular Rate and Rhythm Respiratory: Yes: Regular, CTA Bilaterally Gastrointestinal: Yes: Normal Bowel Sounds, Soft Edema: No Labs: CBC, BMP 04/28/18 18:30 04/28/18 18:30 INR, PTT INR 1.20 (0.83-1.09) H 04/28/18 18:30 Fibrinogen > 500.0 mg/dL (238-498) H 04/10/18 13:15 - ....Imaging EKG: Report Reviewed (Tele: NSR) Problem List - Problems (1) COPD (chronic obstructive pulmonary disease) Code(s): J44.9 - CHRONIC OBSTRUCTIVE PULMONARY DISEASE, UNSPECIFIED Qualifiers: COPD type: unspecified COPD Qualified Code(s): J44.9 - Chronic obstructive pulmonary disease, unspecified (2) Dyspnea Code(s): R06.00 - DYSPNEA, UNSPECIFIED Qualifiers: Dyspnea type: dyspnea on exertion Qualified Code(s): R06.09 - Other forms of dyspnea (3) Hemoptysis Code(s): R04.2 - HEMOPTYSIS (4) Lung mass Code(s): R91.8 - OTHER NONSPECIFIC ABNORMAL FINDING OF LUNG FIELD (5) Paroxysmal atrial fibrillation Code(s): I48.0 - PAROXYSMAL ATRIAL FIBRILLATION (6) SVC syndrome Code(s): I87.1 - COMPRESSION OF VEIN (7) Smoker Code(s): F17.200 - NICOTINE DEPENDENCE, UNSPECIFIED, UNCOMPLICATED (8) Anticoagulant long-term use Code(s): Z79.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) USE OF 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 (9) DVT (deep venous thrombosis) Code(s): I82.409 - ACUTE EMBOLISM AND THOMBOS UNSP DEEP VN UNSP LOWER EXTREMITY Qualifiers: DVT location: upper extremity Affected thrombotic vein of extremity: other upper extremity vein Chronicity: acute Laterality: right Qualified Code(s) : I82.621 - Acute embolism and thrombosis of deep veins of right upper extremity Assessment/Plan 02/22/2018 Holter Monitor: SR with paroxysmal afib/flutter with aberrant conduction (RBBB morphology) 5.44% of time, frequent PAC, PVC 12/22/2017 Large irregular cavitary soft tissue mass involving right superior mediastinum in right to mid and superior hilar region suspicious for primary or secondary malignancy 04/07/2018 Large central RUL mass with invasion of mediastinum and adjacent consolidation/ATX RUL, distal SVC stenosis without obstruction with collateralization 03/11/2018 Echo: Normal LV and RV size and fxn with abnl LV compliance, mildly dilated ascending aorta, mild MR, TR. tr [place] 03/29/2018 ETT Myoview: Negative maximal stress test for ischemia, LVEF 60% 04/14/2018 Brain MRI: No metastases 1. SVC Syndrome with SVC thrombus post thrombectomy declined repeat SVG angigram and stent placement 2. 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 COPD/Emphysema 4. Palpitations, Paroxysmal Atrial Fibrillation->SR [id number] on anticoagulation 5. Diastolic LV dysfunction with class 0 NYHA classification LV failure 6. HTN/HCVD 7. Hep C post-treatment 8. Smoker Plan: 1. On Heparin gtt pending repeat SVG angigram and stent placement at [facility], awaiting transfer 2. Combined RT/chemotherapy, PET scanning per oncology 3. Continue sotalol 80 bid, cardizem CD 180 qd 4. Inhaled bronchodilators, O2 as needed, smoking cessation
--- NOTE | 2018-04-29 12:22 | PN ---
Progress Note, Physician History of Present Illness: pulmonary alert,no distress,less swelling,pt refused stent placement - Current Medication List Current Medications: Active Medications Acetaminophen (Tylenol -) 650 mg PO Q6H PRN PRN Reason: PAIN OR FEVER Last Admin: 04/27/18 17:28 Dose: 650 mg Diltiazem HCl (Cardizem Cd -) 180 mg PO DAILY [facility] Last Admin: 04/29/18 09:59 Dose: 180 mg Heparin Sodium (Porcine) (Heparin -) 5,000 unit IVPUSH PRN PRN PRN Reason: Heparin Last Admin: 04/28/18 20:38 Dose: 5,000 unit Heparin Sodium (Porcine) (Heparin -) 1,000 unit IVPUSH PRN PRN PRN Reason: Heparin Heparin Sodium/Dextrose (Heparin Infusion -) 25,000 units in 500 mls @ 20 mls/ hr IVPB TITR [facility]; Protocol Last Admin: 04/29/18 01:35 Dose: 1,400 units/hr, 28 mls/hr Oxycodone HCl (Roxicodone -) 10 mg PO Q4H PRN PRN Reason: PAIN LEVEL 7 - 10 Last Admin: 04/29/18 04:00 Dose: 10 mg Oxycodone HCl (Roxicodone -) 5 mg PO Q4H PRN PRN Reason: PAIN LEVEL 4 - 6 Last Admin: 04/27/18 17:28 Dose: 5 mg Sotalol HCl (Betapace -) 80 mg PO BID [facility] Last Admin: 04/29/18 09:58 Dose: 80 mg Tiotropium [place] (Spiriva Respimat) 2 puff IH DAILY [facility] Last Admin: 04/29/18 09:59 Dose: 2 puff - Objective Vital Signs: Vital Signs Temperature 98.6 F 04/29/18 09:00 Pulse Rate 82 04/29/18 09:00 Respiratory Rate 20 04/29/18 09:00 Blood Pressure 104/63 04/29/18 09:00 O2 Sat by Pulse Oximetry (%) 94 L 04/29/18 10:00 Constitutional: Yes: Well Nourished, Calm Eyes: Yes: WNL HENT: Yes: WNL Neck: Yes: WNL Cardiovascular: Yes: Pulse Irregular, S1, S2 Respiratory: Yes: Diminished Gastrointestinal: Yes: Normal Bowel Sounds, Soft Extremities: Yes: WNL Edema: Yes (less swelling rue) Labs: CBC, BMP Problem List - Problems (1) Lung cancer Code(s): C34.90 - MALIGNANT NEOPLASM OF UNSP PART OF UNSP BRONCHUS OR LUNG Assessment/Plan Problem List - Problems (1) SVC syndrome Code(s): I87.1 - COMPRESSION OF VEIN (2) COPD (chronic obstructive pulmonary disease) Code(s): J44.9 - CHRONIC OBSTRUCTIVE PULMONARY DISEASE, UNSPECIFIED (3) Hemoptysis Code(s): R04.2 - HEMOPTYSIS (4) Lung mass Code(s): R91.8 - OTHER NONSPECIFIC ABNORMAL FINDING OF LUNG FIELD (5) Smoker Code(s): F17.200 - NICOTINE DEPENDENCE, UNSPECIFIED, UNCOMPLICATED (6) Paroxysmal atrial fibrillation Code(s): I48.0 - PAROXYSMAL ATRIAL FIBRILLATION Assessment/Plan Squamous Cell CA SVC Syndrome due to Lung Mass COPD Emphysema Hemoptysis Paroxysmal Atrial Fibrillation on anticoagulation Smoker Suspected RLL atelectasis - AC ,?LOVENOX - Rate control - Inhaled bronchodilators - Pain control - smoking cessation discussed - Monitor UE/chest edema: improving - pt refused stent placement DR ABRAMS
[2018-04-29] MEDS: ACETAMINOPHEN 325 MG TABLET (FP) PO PRN ×2 (14:25→21:46)
--- NOTE | 2018-04-30 00:28 | PN ---
Progress Note (short form) - Note Progress Note: PAtient seen and examined swelling of face and RUE improved Refused stent placement today by IR--- awaiting his daughter IGOR Cor: RSR, No murmurs, No gallops Lungs: Clear to P&A Abd: Soft, Normal bowel sounds, No organomegaly Ext:No significant edema Labs/Meds reviewed A/P 62-year-old male with a history of cigarette smoking, COPD, hypertension, recently diagnosed atrial fibrillation (on Eliquis) and known lung nodule for 20 years. He was scheduled for bronchoscopy in February, but was noted to have new atrial fibrillation at the time of the procedure, so it was deferred. Since that time, he has had worsening symptoms, including dyspnea on minimal exertion and with laying flat (he reports that he now has to sleep upright) and cough with occasional hemoptysis . He presents with worsening dyspnea and new upper extremity edema. He is referred for suspicion of possible SVC syndrome. CT imaging shows large central right upper lobe mass causing narrowing of SVC. Marked narrowing of distal SVC. path c/w --squamous cell carcinoma-- PDL1-0% stage III based on preliminary staging---needs PET-CT to complete staging. MRI brain/bone scan --negative Chemo/RT --carbo/taxol weekly with RT as outpatient SVC thrombosis -- on heparin will consider switching to lovenox on discharge ? hypercoagulable state of malignancy refused stent placement by IR Wants to discuss with his family before making any other treatment decisions and will be able to do that on 04/30 per patient discussed various options in great detail
--- NOTE | 2018-04-30 08:20 | PN ---
Progress Note (short form) - Note Progress Note: Chief Complaint: Events noted, notes reviewed, dyspnea improved, denies any chest pain, remains in sinus rhythm, agreeable to proceed with SVC stent implant History of Present Illness: Seen and examined on telemetry. Events noted, notes reviewed, dyspnea improved, denies any chest pain, remains in sinus rhythm, agreeable to proceed with SVC stent implant Holter monitor dated 02/22/2018 revealed sinus rhythm with paroxysmal atrial fibrillation/atrial flutter with aberrant conduction (RBBB morphology) 5.44% of time, frequent PAC's, PVC's CT scan of the chest dated 12/22/2017 Large irregular cavitary soft tissue mass involving right superior mediastinum in right to mid and superior hilar region suspicious for primary or secondary malignancy CT scan of the chest dated 04/07/2018 Large central RUL mass with invasion of mediastinum and adjacent consolidation/ATX RUL, distal SVC stenosis without obstruction with collateralization Echocardiograohy dated 03/11/2018 Normal LV and RV size and fxn with abnl LV compliance, mildly dilated ascending aorta, mild MR, TR. tr VT MPI study dated 03/29/2018 Negative maximal stress test for ischemia, LVEF 60% Medications: Current Medications Acetaminophen (Tylenol -) 650 mg PO Q6H PRN PRN Reason: PAIN OR FEVER Last Admin: 04/29/18 21:46 Dose: 650 mg Diltiazem HCl (Cardizem Cd -) 180 mg PO DAILY [facility] Last Admin: 04/29/18 09:59 Dose: 180 mg Heparin Sodium (Porcine) (Heparin -) 5,000 unit IVPUSH PRN PRN PRN Reason: Heparin Last Admin: 04/28/18 20:38 Dose: 5,000 unit Heparin Sodium (Porcine) (Heparin -) 1,000 unit IVPUSH PRN PRN PRN Reason: Heparin Heparin Sodium/Dextrose (Heparin Infusion -) 25,000 units in 500 mls @ 20 mls/ hr IVPB TITR [facility]; Protocol Last Admin: 04/29/18 17:12 Dose: 1,400 units/hr, 28 mls/hr Oxycodone HCl (Roxicodone -) 10 mg PO Q4H PRN PRN Reason: PAIN LEVEL 7 - 10 Last Admin: 04/29/18 21:45 Dose: 10 mg Oxycodone HCl (Roxicodone -) 5 mg PO Q4H PRN PRN Reason: PAIN LEVEL 4 - 6 Last Admin: 04/27/18 17:28 Dose: 5 mg Sotalol HCl (Betapace -) 80 mg PO BID [facility] Last Admin: 04/29/18 21:42 Dose: 80 mg Tiotropium [place] (Spiriva Respimat) 2 puff IH DAILY [facility] Last Admin: 04/29/18 09:59 Dose: 2 puff Review of Systems - Review of Systems Constitutional: no symptoms reported Respiratory: reports Cough Cardiovascular: as noted above Gastrointestinal: denies Nausea, Vomiting, Diarrhea, Constipation or Abdominal Pain Genitourinary: no symptoms reported Musculoskeletal: no symptoms reported Endocrine: no symptoms reported Vital Signs: Last Vital Signs Temp Pulse Resp BP Pulse Ox 99.9 F H 65 19 91/56 L 96 04/30/18 05:00 04/30/18 05:00 04/30/18 05:00 04/30/18 05:00 04/29/18 22:00 Intake & Output 04/27/18 04/28/18 04/29/18 04/30/18 23:59 23:59 23:59 23:59 Intake Total 769 663 5822 576 Output Total 6800 054 7342 Balance -180 50 799 576 Neck: Supple Negative JVD Respiratory: Diminished Breath Sounds Bilaterally Cardiovascular: S1 S2 Regular Rate and Rhythm Gastrointestinal: Soft Benign Normal Bowel Sounds Ext: Negative Edema Labs: CBC, BMP 04/28/18 18:30 04/28/18 18:30 Hepatic Panel Total Bilirubin 0.4 mg/dL (0.2-1) 04/28/18 18:30 AST 15 U/L (15-37) 04/28/18 18:30 ALT 30 U/L (13-61) 04/28/18 18:30 Alkaline Phosphatase 66 U/L (45-117) 04/28/18 18:30 Albumin 3.2 g/dl (3.4-5.0) L 04/28/18 18:30 Assessment/Plan ASSESSMENT: 1. SVC Syndrome related to to mediastinal mass, for stent insertion/agreeable to proceed with procedure 2. RUL Lung Mass, moderately differentiated squamous cell carcinoma for therapy initiation 3. COPD/Emphysema 4. Paroxysmal Atrial Fibrillation/paroxysmal atrial flutter [id number] score of 1 on anticoagulation, on Heparin 5. Diastolic LV dysfunction with class 0 NYHA classification LV failure 6. HTN/HCVD 7. Hepatitis C post-treatment 8. Smoker until recently PLAN: 1. Continue Heparin 2. Continue Betapace with close monitoring of QTc interval 3. Continue Cardizem CD and titrate dosage as tolerated and as needed, hemodynamics permitting 4. As outlined in prior notes no absolute contraindications in proceeding with planned procedure/SVC stent insertion, to be planned for this coming week Mary Lou Coffey M.D.
[2018-04-30 08:29] LABS: INR 1.18 (0.83-1.09)
[2018-04-30 08:32] LABS: ACTIVATED PTT 45.1 SECONDS (25.2-36.5)
--- NOTE | 2018-04-30 09:05 | PN ---
Progress Note, Physician Chief Complaint: SVC syndrome History of Present Illness: Had partial thrombectomy by IR last week due to intolerance of anistreplase. IR was not able to place SVC stent. Pt currently on heparin drip. Plan is to complete thrombectomy and SVC stent placement Pt medically stable at this time. Noted Guaiac positive H/H stable at this time - Current Medication List Current Medications: Active Medications Acetaminophen (Tylenol -) 650 mg PO Q6H PRN PRN Reason: PAIN OR FEVER Last Admin: 04/29/18 21:46 Dose: 650 mg Diltiazem HCl (Cardizem Cd -) 180 mg PO DAILY [facility] Last Admin: 04/29/18 09:59 Dose: 180 mg Heparin Sodium (Porcine) (Heparin -) 5,000 unit IVPUSH PRN PRN PRN Reason: Heparin Last Admin: 04/28/18 20:38 Dose: 5,000 unit Heparin Sodium (Porcine) (Heparin -) 1,000 unit IVPUSH PRN PRN PRN Reason: Heparin Heparin Sodium/Dextrose (Heparin Infusion -) 25,000 units in 500 mls @ 20 mls/ hr IVPB TITR [facility]; Protocol Last Admin: 04/29/18 17:12 Dose: 1,400 units/hr, 28 mls/hr Oxycodone HCl (Roxicodone -) 10 mg PO Q4H PRN PRN Reason: PAIN LEVEL 7 - 10 Last Admin: 04/29/18 21:45 Dose: 10 mg Oxycodone HCl (Roxicodone -) 5 mg PO Q4H PRN PRN Reason: PAIN LEVEL 4 - 6 Last Admin: 04/27/18 17:28 Dose: 5 mg Sotalol HCl (Betapace -) 80 mg PO BID [facility] Last Admin: 04/29/18 21:42 Dose: 80 mg Tiotropium [place] (Spiriva Respimat) 2 puff IH DAILY [facility] Last Admin: 04/29/18 09:59 Dose: 2 puff - Objective Vital Signs: Vital Signs Temperature 99.9 F H 04/30/18 05:00 Pulse Rate 65 04/30/18 05:00 Respiratory Rate 19 04/30/18 05:00 Blood Pressure 91/56 L 04/30/18 05:00 O2 Sat by Pulse Oximetry (%) 96 04/29/18 22:00 Constitutional: Yes: Well Nourished, No Distress, Calm Cardiovascular: Yes: Regular Rate and Rhythm Respiratory: Yes: Regular Gastrointestinal: Yes: Normal Bowel Sounds, Soft Musculoskeletal: Yes: WNL Extremities: Yes: WNL Edema: No Peripheral Pulses WNL: Yes Neurological: Yes: Alert, Oriented Psychiatric: Yes: Alert, Oriented Labs: CBC, BMP 04/28/18 18:30 04/28/18 18:30 INR, PTT INR 1.20 (0.83-1.09) H 04/28/18 18:30 Fibrinogen > 500.0 mg/dL (238-498) H 04/10/18 13:15 Problem List - Problems (1) Afib Assessment/Plan: -Tele monitoring -Cardiology on board -On heparin drip -On CCB and BB Code(s): I48.91 - UNSPECIFIED ATRIAL FIBRILLATION (2) Lung cancer Assessment/Plan: Oncology and pulmonary on board Code(s): C34.90 - MALIGNANT NEOPLASM OF UNSP PART OF UNSP BRONCHUS OR LUNG (3) SVC syndrome Assessment/Plan: -Seen by IR -Heparin drip -Complete thrombectomy and then SVC stent in AM -Would need Lovenox outpatient for anticoagulation due to failure to Eliquis Code(s): I87.1 - COMPRESSION OF VEIN (4) Guaiac positive stools Assessment/Plan: -GI consult -monitor H/H -labs in AM -Likely no intervention at this time. Code(s): R19.5 - OTHER FECAL ABNORMALITIES (5) Dyspnea Assessment/Plan: -improved -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 -oncology and RT on board outpatient chemo and RT Code(s): R06.00 - DYSPNEA, UNSPECIFIED Qualifiers: Dyspnea type: dyspnea on exertion Qualified Code(s): R06.09 - Other forms of dyspnea Assessment/Plan see problem list self ambulatory Pt awaiting for his daughter to come from [place] and wants to proceed with thrombectomy and SV stent placement here on Wednesday.
[2018-04-30] MEDS: SOTALOL HCL 80 MG TABLET (FP) PO SCH ×2 (09:24→22:11)
[2018-04-30] MEDS: TIOTROPIUM BROMIDE 2.5 MCG (SPIRIVA) RESPIMAT INHALER IH SCH (10:12)
[2018-04-30] MEDS ORDERED: ENOXAPARIN NA (PORCINE) 100 MG/1 ML DISP.SYRIN SQ SCH (10:15)
[2018-04-30] MEDS: HEPARIN INFUSION - 25,000 UNITS/500 ML INFUS.BAG IVPB SCH ×2 (11:02→18:24)
[2018-04-30] MEDS: oxyCODONE HCL 5 MG TABLET PO PRN ×2 (11:56→20:03)
[2018-04-30] MEDS: ACETAMINOPHEN 325 MG TABLET (FP) PO PRN (11:57)
--- NOTE | 2018-04-30 14:36 | PN ---
Progress Note (short form) - Note Progress Note: PULMONARY Clinically unchanged. Occasional shortness of breath and chest discomfort. Agreeing to SVC stent. Vital Signs Period Temp Pulse Resp BP Sys/Gtz Pulse Ox Last 24 Hr 98.2 F-99.9 F 65-86 18-20 91-128/56-68 96-96 Gen: NAD at rest Heart: RRR Lung: decreased breath sounds, bronchial breath sounds right Abd: soft, nontender Ext: UE edema CBC, BMP 04/28/18 18:30 04/28/18 18:30 Active Medications Acetaminophen (Tylenol -) 650 mg PO Q6H PRN PRN Reason: PAIN OR FEVER Last Admin: 04/30/18 11:57 Dose: 650 mg Diltiazem HCl (Cardizem Cd -) 180 mg PO DAILY [facility] Last Admin: 04/30/18 09:23 Dose: 180 mg Heparin Sodium (Porcine) (Heparin -) 5,000 unit IVPUSH PRN PRN PRN Reason: Heparin Last Admin: 04/28/18 20:38 Dose: 5,000 unit Heparin Sodium (Porcine) (Heparin -) 1,000 unit IVPUSH PRN PRN PRN Reason: Heparin Heparin Sodium/Dextrose (Heparin Infusion -) 25,000 units in 500 mls @ 20 mls/ hr IVPB TITR [facility]; Protocol Last Admin: 04/30/18 11:02 Dose: 1,500 units/hr, 30 mls/hr Oxycodone HCl (Roxicodone -) 10 mg PO Q4H PRN PRN Reason: PAIN LEVEL 7 - 10 Last Admin: 04/30/18 11:56 Dose: 10 mg Oxycodone HCl (Roxicodone -) 5 mg PO Q4H PRN PRN Reason: PAIN LEVEL 4 - 6 Last Admin: 04/27/18 17:28 Dose: 5 mg Sotalol HCl (Betapace -) 80 mg PO BID [facility] Last Admin: 04/30/18 09:24 Dose: 80 mg Tiotropium [place] (Spiriva Respimat) 2 puff IH DAILY [facility] Last Admin: 04/30/18 10:12 Dose: 2 puff A/P Newly Diagnosed Lung Cancer SVC Syndrome COPD Emphysema Hemoptysis Paroxysmal Atrial Fibrillation on anticoagulation Smoker Suspected RLL atelectasis - for SVC stent placement - incentive spirometry - rate control - inhaled bronchodilators - chemo/RT post SVC stent placement Problem List - Problems (1) SVC syndrome Code(s): I87.1 - COMPRESSION OF VEIN (2) COPD (chronic obstructive pulmonary disease) Code(s): J44.9 - CHRONIC OBSTRUCTIVE PULMONARY DISEASE, UNSPECIFIED Qualifiers: COPD type: unspecified COPD Qualified Code(s): J44.9 - Chronic obstructive pulmonary disease, unspecified (3) Hemoptysis Code(s): R04.2 - HEMOPTYSIS (4) Smoker Code(s): F17.200 - NICOTINE DEPENDENCE, UNSPECIFIED, UNCOMPLICATED (5) Paroxysmal atrial fibrillation Code(s): I48.0 - PAROXYSMAL ATRIAL FIBRILLATION
--- NOTE | 2018-04-30 17:20 | PN ---
Progress Note (short form) - Note Progress Note: Patient seen in follow up. Generally feeling well, with no complaints at this time, but expresses concern that PTT was subtherapeutic this morning, and attributes a subjective impression of increased facial swelling to this. Otherwise no significant events overnight. Indicates that he is now amenable to the stenting procedure. Inpatient Meds reviewed. Current Medications Generic Name Dose Route Start Last Admin Trade Name Freq PRN Reason Stop Dose Admin Acetaminophen 650 mg 04/09/18 12:59 04/30/18 11:57 Tylenol - PO 650 mg Q6H PRN Administration PAIN OR FEVER Diltiazem HCl 180 mg 04/10/18 10:00 04/30/18 09:23 Cardizem Cd - PO 180 mg DAILY [facility] Administration Heparin Sodium (Porcine) 5,000 unit 04/21/18 17:50 04/28/18 20:38 Heparin - IVPUSH 5,000 unit PRN PRN Administration Heparin Heparin Sodium (Porcine) 1,000 unit 04/21/18 17:50 Heparin - IVPUSH PRN PRN Heparin Heparin Sodium/Dextrose 25,000 units in 500 mls @ 20 mls/hr 04/21/18 18:00 11:02 Heparin Infusion - IVPB 1,500 units/hr TITR [facility] 30 mls/hr Administration Protocol 1,000 UNITS/HR Oxycodone HCl 10 mg 04/25/18 20:29 04/30/18 11:56 Roxicodone - PO 10 mg Q4H PRN Administration PAIN LEVEL 7 - 10 Oxycodone HCl 5 mg 04/25/18 20:29 04/27/18 17:28 Roxicodone - PO 5 mg Q4H PRN Administration PAIN LEVEL 4 - 6 Sotalol HCl 80 mg 04/08/18 19:00 04/30/18 09:24 Betapace - PO 80 mg BID [facility] Administration Tiotropium [place] 2 puff 04/08/18 10:00 04/30/18 10:12 Spiriva Respimat IH 2 puff DAILY [facility] Administration On Examination: Last Vital Signs Temp Pulse Resp BP Pulse Ox 98.0 F 63 18 152/78 96 04/30/18 14:00 04/30/18 14:00 04/30/18 09:00 04/30/18 14:00 04/30/18 09:00 General: In no acute distress, mobile. Mild diffuse swelling neck/submandibular area. Extremities: No pallor or icterus. No pedal edema. No palpable lymphadenopathy. CVS: S1, S2, regular, no gallop or murmur. Chest: good air entry bilaterally, clear Abdomen: Non-distended, non-tender, no palpable organomegaly. Neuro: Alert, oriented, non-focal. Labs: CBC, BMP 04/28/18 18:30 04/28/18 18:30 Assessment. Newly diagnosed NSCLS with SVC syndrome (mass effect on SVC). Thrombectomy performed by IR with prior unsuccessful stent placement. Will re- attempt stent placement on Wednesday. Unclear relative role of thrombus vs mass effect accounting for SVC obstruction - assuming thrombus then requires ongoing anticoagulation (and also indicated for PAF). Recommend LMWH appropriately dosed (by weight) while waiting for procedure - generally more reliable than heparin gtt. and easier for staff. Assuming not frankly bleeding, hemeoccult positive stools not a contraindication for LMWH. Requires definitive therapy for SVC syndrome - RTX - anticipated to occur as outpatient.
[2018-05-01] MEDS: oxyCODONE HCL 5 MG TABLET PO PRN ×3 (01:19→22:03)
[2018-05-01 07:34] LABS: BASO % 0.7 % (0-2.0); EOS % 3.6 % (0-4.5); HEMATOCRIT 35.1 % (35.4-49); HEMOGLOBIN 11.7 GM/dL (11.7-16.9); LYMPH % 23.3 % (8-40); MCH 30.7 pg (25.7-33.7); MCHC 33.3 g/dl (32.0-35.9); MEAN CELL VOLUME 92.4 fl (80-96); MEAN PLT VOLUME 7.1 fl (7.5-11.1); MONO % 16.3 % (3.8-10.2); NEUT % 56.1 % (42.8-82.8); PLATELET COUNT 213 K/MM3 (134-434); RDW 15.1 % (11.9-15.9); WHITE BLOOD COUNT 4.2 K/mm3 (4.0-10.0)
--- NOTE | 2018-05-01 08:25 | PN ---
Progress Note (short form) - Note Progress Note: Chief Complaint: Events noted, notes reviewed, dyspnea persistent but improved, denies any chest pain, remains in sinus rhythm, plan to proceed with SVC stent implant this week History of Present Illness: Seen and examined on telemetry. Events noted, notes reviewed, dyspnea persistent but improved, denies any chest pain, remains in sinus rhythm, plan to proceed with SVC stent implant this week Oncology note appreciated, to consider Lovenox instead of Heparin, to be discussed with the primary team Holter monitor dated 02/22/2018 revealed sinus rhythm with paroxysmal atrial fibrillation/atrial flutter with aberrant conduction (RBBB morphology) 5.44% of time, frequent PAC's, PVC's CT scan of the chest dated 12/22/2017 Large irregular cavitary soft tissue mass involving right superior mediastinum in right to mid and superior hilar region suspicious for primary or secondary malignancy CT scan of the chest dated 04/07/2018 Large central RUL mass with invasion of mediastinum and adjacent consolidation/ATX RUL, distal SVC stenosis without obstruction with collateralization Echocardiograohy dated 03/11/2018 Normal LV and RV size and fxn with abnl LV compliance, mildly dilated ascending aorta, mild MR, TR. tr DC MPI study dated 03/29/2018 Negative maximal stress test for ischemia, LVEF 60% Medications: Current Medications Acetaminophen (Tylenol -) 650 mg PO Q6H PRN PRN Reason: PAIN OR FEVER Last Admin: 04/30/18 11:57 Dose: 650 mg Diltiazem HCl (Cardizem Cd -) 180 mg PO DAILY [facility] Last Admin: 04/30/18 09:23 Dose: 180 mg Heparin Sodium (Porcine) (Heparin -) 5,000 unit IVPUSH PRN PRN PRN Reason: Heparin Last Admin: 04/28/18 20:38 Dose: 5,000 unit Heparin Sodium (Porcine) (Heparin -) 1,000 unit IVPUSH PRN PRN PRN Reason: Heparin Heparin Sodium/Dextrose (Heparin Infusion -) 25,000 units in 500 mls @ 20 mls/ hr IVPB TITR [facility]; Protocol Last Admin: 04/30/18 18:24 Dose: 1,500 units/hr, 30 mls/hr Oxycodone HCl (Roxicodone -) 10 mg PO Q4H PRN PRN Reason: PAIN LEVEL 7 - 10 Last Admin: 05/01/18 01:19 Dose: 10 mg Oxycodone HCl (Roxicodone -) 5 mg PO Q4H PRN PRN Reason: PAIN LEVEL 4 - 6 Last Admin: 04/27/18 17:28 Dose: 5 mg Sotalol HCl (Betapace -) 80 mg PO BID [facility] Last Admin: 04/30/18 22:11 Dose: 80 mg Tiotropium [place] (Spiriva Respimat) 2 puff IH DAILY [facility] Last Admin: 04/30/18 10:12 Dose: 2 puff Review of Systems - Review of Systems Constitutional: no symptoms reported Respiratory: reports Cough Cardiovascular: as noted above Gastrointestinal: denies Nausea, Vomiting, Diarrhea, Constipation or Abdominal Pain Genitourinary: no symptoms reported Musculoskeletal: no symptoms reported Endocrine: no symptoms reported Vital Signs: Last Vital Signs Temp Pulse Resp BP Pulse Ox 98.2 F 68 20 93/55 L 95 04/30/18 20:00 05/01/18 06:10 05/01/18 06:10 05/01/18 06:10 05/01/18 06:10 Intake & Output 04/28/18 04/29/18 04/30/18 05/01/18 23:59 23:59 23:59 23:59 Intake Total 650 2049 1406 Output Total 600 1250 1100 Balance 50 799 306 Neck: Supple Negative JVD Respiratory: Diminished Breath Sounds Bilaterally Cardiovascular: S1 S2 Regular Rate and Rhythm Gastrointestinal: Soft Benign Normal Bowel Sounds Ext: Negative Edema Labs: CBC, BMP 05/01/18 06:50 BMP pending from this AM Assessment/Plan ASSESSMENT: 1. SVC Syndrome related to to mediastinal mass, for stent insertion this coming week 2. RUL Lung Mass, moderately differentiated squamous cell carcinoma for therapy initiation 3. COPD/Emphysema 4. Paroxysmal Atrial Fibrillation/paroxysmal atrial flutter [id number] score of 1 on anticoagulation, on Heparin to consider Lovenox 5. Diastolic LV dysfunction with class 0 NYHA classification LV failure 6. HTN/HCVD 7. Hepatitis C post-treatment 8. Smoker until recently PLAN: 1. As outlined above to consider Lovenox as an alternative to Heparin 2. Continue Betapace with close monitoring of QTc interval 3. Continue Cardizem CD, hemodynamics permitting 4. As outlined in prior notes no absolute contraindications in proceeding with planned procedure/SVC stent insertion, planned for this coming week Mary Lou Coffey M.D.
[2018-05-01 09:07] LABS: ALBUMIN 3.1 g/dl (3.4-5.0); ALK PHOS 57 U/L (45-117); ANION GAP 8 MMOL/L (8-16); BILIRUBIN,TOTAL 0.3 mg/dL (0.2-1); BLOOD UREA NITROGEN 15 mg/dL (7-18); CALCIUM 9.9 mg/dL (8.5-10.1); CHLORIDE 102 mmol/L (98-107); CO2 27 mmol/L (21-32); CREATININE 0.7 mg/dL (0.55-1.3); GLUCOSE,RANDOM 88 mg/dL (74-106); POTASSIUM 4.5 mmol/L (3.5-5.1); SGOT/AST 14 U/L (15-37); SGPT/ALT 29 U/L (13-61); SODIUM 137 mmol/L (136-145)
[2018-05-01] MEDS ORDERED: PT OWN MED DRAWER 7, Y5N ONE (09:50)
[2018-05-01] MEDS: TIOTROPIUM BROMIDE 2.5 MCG (SPIRIVA) RESPIMAT INHALER IH SCH (10:55)
[2018-05-01] MEDS: SOTALOL HCL 80 MG TABLET (FP) PO SCH ×2 (10:55→22:03)
--- NOTE | 2018-05-01 12:11 | PN ---
Progress Note, Physician Chief Complaint: SVC syndrome History of Present Illness: Had partial thrombectomy by IR last week due to intolerance of anistreplase. IR was not able to place SVC stent. Pt currently on heparin drip. Plan is to complete thrombectomy and SVC stent placement Pt medically stable at this time. Noted Guaiac positive H/H stable at this time - Current Medication List Current Medications: Active Medications Acetaminophen (Tylenol -) 650 mg PO Q6H PRN PRN Reason: PAIN OR FEVER Last Admin: 04/30/18 11:57 Dose: 650 mg Diltiazem HCl (Cardizem Cd -) 180 mg PO DAILY [facility] Last Admin: 05/01/18 10:55 Dose: 180 mg Heparin Sodium (Porcine) (Heparin -) 5,000 unit IVPUSH PRN PRN PRN Reason: Heparin Last Admin: 04/28/18 20:38 Dose: 5,000 unit Heparin Sodium (Porcine) (Heparin -) 1,000 unit IVPUSH PRN PRN PRN Reason: Heparin Heparin Sodium/Dextrose (Heparin Infusion -) 25,000 units in 500 mls @ 20 mls/ hr IVPB TITR [facility]; Protocol Last Admin: 04/30/18 18:24 Dose: 1,500 units/hr, 30 mls/hr Oxycodone HCl (Roxicodone -) 10 mg PO Q4H PRN PRN Reason: PAIN LEVEL 7 - 10 Last Admin: 05/01/18 01:19 Dose: 10 mg Oxycodone HCl (Roxicodone -) 5 mg PO Q4H PRN PRN Reason: PAIN LEVEL 4 - 6 Last Admin: 04/27/18 17:28 Dose: 5 mg Sotalol HCl (Betapace -) 80 mg PO BID [facility] Last Admin: 05/01/18 10:55 Dose: 80 mg Tiotropium [place] (Spiriva Respimat) 2 puff IH DAILY [facility] Last Admin: 05/01/18 10:55 Dose: 2 puff - Objective Vital Signs: Vital Signs Temperature 98.2 F 05/01/18 10:00 Pulse Rate 76 05/01/18 10:00 Respiratory Rate 20 05/01/18 10:00 Blood Pressure 94/67 05/01/18 10:00 O2 Sat by Pulse Oximetry (%) 98 05/01/18 10:00 Constitutional: Yes: Well Nourished, No Distress, Calm Cardiovascular: Yes: Regular Rate and Rhythm Respiratory: Yes: Regular Gastrointestinal: Yes: Normal Bowel Sounds, Soft Musculoskeletal: Yes: WNL Extremities: Yes: WNL Edema: No Peripheral Pulses WNL: Yes Neurological: Yes: Alert, Oriented Psychiatric: Yes: Alert, Oriented Labs: CBC, BMP 05/01/18 06:50 05/01/18 06:50 INR, PTT INR 1.18 (0.83-1.09) H 04/30/18 06:55 Fibrinogen > 500.0 mg/dL (238-498) H 04/10/18 13:15 Problem List - Problems (1) Afib Assessment/Plan: -Tele monitoring -Cardiology on board -On heparin drip -On CCB and BB Code(s): I48.91 - UNSPECIFIED ATRIAL FIBRILLATION (2) Lung cancer Assessment/Plan: Oncology and pulmonary on board Code(s): C34.90 - MALIGNANT NEOPLASM OF UNSP PART OF UNSP BRONCHUS OR LUNG (3) SVC syndrome Assessment/Plan: -Seen by IR -Heparin drip -Complete thrombectomy and then SVC stent in AM -Would need Lovenox outpatient for anticoagulation due to failure to Eliquis Code(s): I87.1 - COMPRESSION OF VEIN (4) Guaiac positive stools Assessment/Plan: -GI consult -monitor H/H -labs in AM -Likely no intervention at this time. Code(s): R19.5 - OTHER FECAL ABNORMALITIES (5) Dyspnea Assessment/Plan: -improved -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 -oncology and RT on board outpatient chemo and RT Code(s): R06.00 - DYSPNEA, UNSPECIFIED Qualifiers: Dyspnea type: dyspnea on exertion Qualified Code(s): R06.09 - Other forms of dyspnea Assessment/Plan see problem list self ambulatory Pt awaiting for his daughter to come from [place] and wants to proceed with thrombectomy and SV stent placement here on Wednesday.
--- NOTE | 2018-05-01 13:16 | PN ---
Progress Note (short form) - Note Progress Note: PULMONARY Still with occasional shortness of breath and chest discomfort. Agreeing to SVC stent. Vital Signs Period Temp Pulse Resp BP Sys/Gtz Pulse Ox Last 24 Hr 97.9 F-98.2 F 63-76 20-20 89-152/53-78 95-98 Gen: NAD at rest Heart: RRR Lung: decreased breath sounds at the bases Abd: soft, nontender Ext: UE edema CBC, BMP 05/01/18 06:50 05/01/18 06:50 Active Medications Acetaminophen (Tylenol -) 650 mg PO Q6H PRN PRN Reason: PAIN OR FEVER Last Admin: 04/30/18 11:57 Dose: 650 mg Diltiazem HCl (Cardizem Cd -) 180 mg PO DAILY [facility] Last Admin: 05/01/18 10:55 Dose: 180 mg Heparin Sodium (Porcine) (Heparin -) 5,000 unit IVPUSH PRN PRN PRN Reason: Heparin Last Admin: 04/28/18 20:38 Dose: 5,000 unit Heparin Sodium (Porcine) (Heparin -) 1,000 unit IVPUSH PRN PRN PRN Reason: Heparin Heparin Sodium/Dextrose (Heparin Infusion -) 25,000 units in 500 mls @ 20 mls/ hr IVPB TITR [facility]; Protocol Last Admin: 04/30/18 18:24 Dose: 1,500 units/hr, 30 mls/hr Oxycodone HCl (Roxicodone -) 10 mg PO Q4H PRN PRN Reason: PAIN LEVEL 7 - 10 Last Admin: 05/01/18 01:19 Dose: 10 mg Oxycodone HCl (Roxicodone -) 5 mg PO Q4H PRN PRN Reason: PAIN LEVEL 4 - 6 Last Admin: 04/27/18 17:28 Dose: 5 mg Sotalol HCl (Betapace -) 80 mg PO BID [facility] Last Admin: 05/01/18 10:55 Dose: 80 mg Tiotropium [place] (Spiriva Respimat) 2 puff IH DAILY [facility] Last Admin: 05/01/18 10:55 Dose: 2 puff A/P Newly Diagnosed Lung Cancer SVC Syndrome COPD Emphysema Hemoptysis Paroxysmal Atrial Fibrillation on anticoagulation Smoker Suspected RLL atelectasis - for SVC stent placement - incentive spirometry - rate control - inhaled bronchodilators - chemo/RT post SVC stent placement Problem List - Problems (1) SVC syndrome Code(s): I87.1 - COMPRESSION OF VEIN (2) COPD (chronic obstructive pulmonary disease) Code(s): J44.9 - CHRONIC OBSTRUCTIVE PULMONARY DISEASE, UNSPECIFIED Qualifiers: COPD type: unspecified COPD Qualified Code(s): J44.9 - Chronic obstructive pulmonary disease, unspecified (3) Hemoptysis Code(s): R04.2 - HEMOPTYSIS (4) Smoker Code(s): F17.200 - NICOTINE DEPENDENCE, UNSPECIFIED, UNCOMPLICATED (5) Paroxysmal atrial fibrillation Code(s): I48.0 - PAROXYSMAL ATRIAL FIBRILLATION
[2018-05-01] MEDS: HEPARIN INFUSION - 25,000 UNITS/500 ML INFUS.BAG IVPB SCH (16:38)
--- NOTE | 2018-05-01 22:06 | PN ---
Progress Note (short form) - Note Progress Note: Patient seen in follow up. Generally feeling well, with no complaints at this time. Believes his facial swelling is decreased this morning. Inpatient Meds reviewed. Current Medications Generic Name Dose Route Start Last Admin Trade Name Freq PRN Reason Stop Dose Admin Acetaminophen 650 mg 04/09/18 12:59 04/30/18 11:57 Tylenol - PO 650 mg Q6H PRN Administration PAIN OR FEVER Diltiazem HCl 180 mg 04/10/18 10:00 05/01/18 10:55 Cardizem Cd - PO 180 mg DAILY [facility] Administration Heparin Sodium (Porcine) 5,000 unit 04/21/18 17:50 04/28/18 20:38 Heparin - IVPUSH 5,000 unit PRN PRN Administration Heparin Heparin Sodium (Porcine) 1,000 unit 04/21/18 17:50 Heparin - IVPUSH PRN PRN Heparin Heparin Sodium/Dextrose 25,000 units in 500 mls @ 20 mls/hr 04/21/18 18:00 16:38 Heparin Infusion - IVPB 1,500 units/hr TITR [facility] 30 mls/hr Administration Protocol 1,000 UNITS/HR Oxycodone HCl 10 mg 04/25/18 20:29 05/01/18 16:38 Roxicodone - PO 10 mg Q4H PRN Administration PAIN LEVEL 7 - 10 Oxycodone HCl 5 mg 04/25/18 20:29 04/27/18 17:28 Roxicodone - PO 5 mg Q4H PRN Administration PAIN LEVEL 4 - 6 Sotalol HCl 80 mg 04/08/18 19:00 05/01/18 10:55 Betapace - PO 80 mg BID [facility] Administration Tiotropium [place] 2 puff 04/08/18 10:00 05/01/18 10:55 Spiriva Respimat IH 2 puff DAILY [facility] Administration On Examination: Last Vital Signs Temp Pulse Resp BP Pulse Ox 97.4 F L 70 20 95/59 L 98 05/01/18 17:00 05/01/18 17:00 05/01/18 17:00 05/01/18 17:00 05/01/18 10:00 General: In no acute distress, mobile. Extremities: No pallor or icterus. No pedal edema. No palpable lymphadenopathy. CVS: S1, S2, regular, no gallop or murmur. Chest: good air entry bilaterally, clear Abdomen: Non-distended, non-tender, no palpable organomegaly. Neuro: Alert, oriented, non-focal. Labs: CBC, BMP 05/01/18 06:50 05/01/18 06:50 Assessment. Newly diagnosed NSCLS with SVC syndrome (mass effect on SVC). Thrombectomy performed by IR with prior unsuccessful stent placement. Will re- attempt stent placement on Wednesday. Currently on heparin gtt - PTTs therapeutic - continue. Requires definitive therapy for SVC syndrome - RTX - anticipated to occur as outpatient.
--- NOTE | 2018-05-02 09:12 | PN ---
Progress Note, Physician History of Present Illness: No further episodes of rapid afib after Cardizem CD added, now agreeable to repeat SVG angiogram and stent placement. Facial and RUE swelling improving. - Current Medication List Current Medications: Active Medications Acetaminophen (Tylenol -) 650 mg PO Q6H PRN PRN Reason: PAIN OR FEVER Last Admin: 04/30/18 11:57 Dose: 650 mg Diltiazem HCl (Cardizem Cd -) 180 mg PO DAILY [facility] Last Admin: 05/01/18 10:55 Dose: 180 mg Heparin Sodium (Porcine) (Heparin -) 5,000 unit IVPUSH PRN PRN PRN Reason: Heparin Last Admin: 04/28/18 20:38 Dose: 5,000 unit Heparin Sodium (Porcine) (Heparin -) 1,000 unit IVPUSH PRN PRN PRN Reason: Heparin Heparin Sodium/Dextrose (Heparin Infusion -) 25,000 units in 500 mls @ 20 mls/ hr IVPB TITR [facility]; Protocol Last Admin: 05/01/18 16:38 Dose: 1,500 units/hr, 30 mls/hr Oxycodone HCl (Roxicodone -) 10 mg PO Q4H PRN PRN Reason: PAIN LEVEL 7 - 10 Last Admin: 05/01/18 22:03 Dose: 10 mg Oxycodone HCl (Roxicodone -) 5 mg PO Q4H PRN PRN Reason: PAIN LEVEL 4 - 6 Last Admin: 04/27/18 17:28 Dose: 5 mg Sotalol HCl (Betapace -) 80 mg PO BID [facility] Last Admin: 05/01/18 22:03 Dose: 80 mg Tiotropium [place] (Spiriva Respimat) 2 puff IH DAILY [facility] Last Admin: 05/01/18 10:55 Dose: 2 puff - Objective Vital Signs: Vital Signs Temperature 98 F 05/02/18 08:22 Pulse Rate 80 05/02/18 08:22 Respiratory Rate 18 05/02/18 08:22 Blood Pressure 94/54 L 05/02/18 08:22 O2 Sat by Pulse Oximetry (%) 96 05/02/18 08:23 Constitutional: Yes: No Distress, Calm Neck: Yes: Supple Cardiovascular: Yes: Regular Rate and Rhythm Respiratory: Yes: Regular, CTA Bilaterally Gastrointestinal: Yes: Normal Bowel Sounds, Soft Edema: No Labs: CBC, BMP 05/01/18 06:50 05/01/18 06:50 INR, PTT INR 1.18 (0.83-1.09) H 04/30/18 06:55 Fibrinogen > 500.0 mg/dL (238-498) H 04/10/18 13:15 - ....Imaging EKG: Report Reviewed (Tele: PAF->SR) Problem List - Problems (1) COPD (chronic obstructive pulmonary disease) Code(s): J44.9 - CHRONIC OBSTRUCTIVE PULMONARY DISEASE, UNSPECIFIED Qualifiers: COPD type: unspecified COPD Qualified Code(s): J44.9 - Chronic obstructive pulmonary disease, unspecified (2) Dyspnea Code(s): R06.00 - DYSPNEA, UNSPECIFIED Qualifiers: Dyspnea type: dyspnea on exertion Qualified Code(s): R06.09 - Other forms of dyspnea (3) Hemoptysis Code(s): R04.2 - HEMOPTYSIS (4) Lung mass Code(s): R91.8 - OTHER NONSPECIFIC ABNORMAL FINDING OF LUNG FIELD (5) Paroxysmal atrial fibrillation Code(s): I48.0 - PAROXYSMAL ATRIAL FIBRILLATION (6) SVC syndrome Code(s): I87.1 - COMPRESSION OF VEIN (7) Smoker Code(s): F17.200 - NICOTINE DEPENDENCE, UNSPECIFIED, UNCOMPLICATED (8) Anticoagulant long-term use Code(s): Z79.01 - RETIREMENT (CURRENT) USE OF 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 (9) DVT (deep venous thrombosis) Code(s): I82.409 - ACUTE EMBOLISM AND THOMBOS UNSP DEEP VN UNSP LOWER EXTREMITY Qualifiers: DVT location: upper extremity Affected thrombotic vein of extremity: other upper extremity vein Chronicity: acute Laterality: right Qualified Code(s) : I82.621 - Acute embolism and thrombosis of deep veins of right upper extremity Assessment/Plan 02/22/2018 Holter Monitor: SR with paroxysmal afib/flutter with aberrant conduction (RBBB morphology) 5.44% of time, frequent PAC, PVC 12/22/2017 Large irregular cavitary soft tissue mass involving right superior mediastinum in right to mid and superior hilar region suspicious for primary or secondary malignancy 04/07/2018 Large central RUL mass with invasion of mediastinum and adjacent consolidation/ATX RUL, distal SVC stenosis without obstruction with collateralization 03/11/2018 Echo: Normal LV and RV size and fxn with abnl LV compliance, mildly dilated ascending aorta, mild MR, TR. tr [place] 03/29/2018 ETT Myoview: Negative maximal stress test for ischemia, LVEF 60% 04/14/2018 Brain MRI: No metastases 1. SVC Syndrome with SVC thrombus post thrombectomy now agreed to repeat SVG angigram and stent placement 2. 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 COPD/Emphysema 4. Palpitations, Paroxysmal Atrial Fibrillation->SR [id number] on anticoagulation 5. Diastolic LV dysfunction with class 0 NYHA classification LV failure 6. HTN/HCVD 7. Hep C post-treatment 8. Smoker Plan: 1. On Heparin gtt pending repeat SVG angigram and stent placement 2. Combined RT/chemotherapy, PET scanning per oncology 3. Continue sotalol 80 bid, cardizem CD 180 qd 4. Inhaled bronchodilators, O2 as needed, smoking cessation
--- NOTE | 2018-05-02 09:15 | PN ---
Progress Note, Physician - Current Medication List Current Medications: Active Medications Acetaminophen (Tylenol -) 650 mg PO Q6H PRN PRN Reason: PAIN OR FEVER Last Admin: 04/30/18 11:57 Dose: 650 mg Diltiazem HCl (Cardizem Cd -) 180 mg PO DAILY [facility] Last Admin: 05/01/18 10:55 Dose: 180 mg Heparin Sodium (Porcine) (Heparin -) 5,000 unit IVPUSH PRN PRN PRN Reason: Heparin Last Admin: 04/28/18 20:38 Dose: 5,000 unit Heparin Sodium (Porcine) (Heparin -) 1,000 unit IVPUSH PRN PRN PRN Reason: Heparin Heparin Sodium/Dextrose (Heparin Infusion -) 25,000 units in 500 mls @ 20 mls/ hr IVPB TITR [facility]; Protocol Last Admin: 05/01/18 16:38 Dose: 1,500 units/hr, 30 mls/hr Oxycodone HCl (Roxicodone -) 10 mg PO Q4H PRN PRN Reason: PAIN LEVEL 7 - 10 Last Admin: 05/01/18 22:03 Dose: 10 mg Oxycodone HCl (Roxicodone -) 5 mg PO Q4H PRN PRN Reason: PAIN LEVEL 4 - 6 Last Admin: 04/27/18 17:28 Dose: 5 mg Sotalol HCl (Betapace -) 80 mg PO BID [facility] Last Admin: 05/01/18 22:03 Dose: 80 mg Tiotropium [place] (Spiriva Respimat) 2 puff IH DAILY [facility] Last Admin: 05/01/18 10:55 Dose: 2 puff - Objective Vital Signs: Vital Signs Temperature 98 F 05/02/18 08:22 Pulse Rate 80 05/02/18 08:22 Respiratory Rate 18 05/02/18 08:22 Blood Pressure 94/54 L 05/02/18 08:22 O2 Sat by Pulse Oximetry (%) 96 05/02/18 08:23 Cardiovascular: Yes: S1, S2 Respiratory: Yes: Regular, CTA Bilaterally Gastrointestinal: Yes: Normal Bowel Sounds, Soft Edema: No Labs: CBC, BMP 05/01/18 06:50 05/01/18 06:50 INR, PTT INR 1.18 (0.83-1.09) H 04/30/18 06:55 Fibrinogen > 500.0 mg/dL (238-498) H 04/10/18 13:15 Problem List - Problems (1) Lung cancer Code(s): C34.90 - MALIGNANT NEOPLASM OF UNSP PART OF UNSP BRONCHUS OR LUNG (2) Dyspnea Code(s): R06.00 - DYSPNEA, UNSPECIFIED Qualifiers: Dyspnea type: dyspnea on exertion Qualified Code(s): R06.09 - Other forms of dyspnea (3) Afib Code(s): I48.91 - UNSPECIFIED ATRIAL FIBRILLATION (4) COPD (chronic obstructive pulmonary disease) Code(s): J44.9 - CHRONIC OBSTRUCTIVE PULMONARY DISEASE, UNSPECIFIED Qualifiers: COPD type: unspecified COPD Qualified Code(s): J44.9 - Chronic obstructive pulmonary disease, unspecified (5) SVC syndrome Code(s): I87.1 - COMPRESSION OF VEIN Assessment/Plan - Problems (1) Afib Assessment/Plan: -Tele monitoring -Cardiology on board -On heparin drip -On CCB and BB Code(s): I48.91 - UNSPECIFIED ATRIAL FIBRILLATION (2) Lung cancer Assessment/Plan: Oncology and pulmonary on board Code(s): C34.90 - MALIGNANT NEOPLASM OF UNSP PART OF UNSP BRONCHUS OR LUNG (3) SVC syndrome Assessment/Plan: -Seen by IR -Heparin drip -Complete thrombectomy and then SVC stent today -Would need Lovenox outpatient for anticoagulation due to failure to Eliquis Code(s): I87.1 - COMPRESSION OF VEIN (4) Guaiac positive stools Assessment/Plan: -GI consult -monitor H/H -labs in AM -Likely no intervention at this time. 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
[2018-05-02] MEDS: SOTALOL HCL 80 MG TABLET (FP) PO SCH ×2 (10:34→21:34)
[2018-05-02] MEDS: TIOTROPIUM BROMIDE 2.5 MCG (SPIRIVA) RESPIMAT INHALER IH SCH (10:34)
[2018-05-02] MEDS: oxyCODONE HCL 5 MG TABLET PO PRN ×2 (10:51→19:37)
[2018-05-02] MEDS: ACETAMINOPHEN 325 MG TABLET (FP) PO PRN (10:51)
--- NOTE | 2018-05-02 11:05 | PN ---
Progress Note, Physician History of Present Illness: pulmonary alert,no distress,for possible stent today - Current Medication List Current Medications: Active Medications Acetaminophen (Tylenol -) 650 mg PO Q6H PRN PRN Reason: PAIN OR FEVER Last Admin: 05/02/18 10:51 Dose: 650 mg Diltiazem HCl (Cardizem Cd -) 180 mg PO DAILY [facility] Last Admin: 05/02/18 10:34 Dose: 180 mg Heparin Sodium (Porcine) (Heparin -) 5,000 unit IVPUSH PRN PRN PRN Reason: Heparin Last Admin: 04/28/18 20:38 Dose: 5,000 unit Heparin Sodium (Porcine) (Heparin -) 1,000 unit IVPUSH PRN PRN PRN Reason: Heparin Heparin Sodium/Dextrose (Heparin Infusion -) 25,000 units in 500 mls @ 20 mls/ hr IVPB TITR [facility]; Protocol Last Admin: 05/01/18 16:38 Dose: 1,500 units/hr, 30 mls/hr Oxycodone HCl (Roxicodone -) 10 mg PO Q4H PRN PRN Reason: PAIN LEVEL 7 - 10 Last Admin: 05/01/18 22:03 Dose: 10 mg Oxycodone HCl (Roxicodone -) 5 mg PO Q4H PRN PRN Reason: PAIN LEVEL 4 - 6 Last Admin: 05/02/18 10:51 Dose: 5 mg Sotalol HCl (Betapace -) 80 mg PO BID [facility] Last Admin: 05/02/18 10:34 Dose: 80 mg Tiotropium [place] (Spiriva Respimat) 2 puff IH DAILY [facility] Last Admin: 05/02/18 10:34 Dose: 2 puff - Objective Vital Signs: Vital Signs Temperature 98 F 05/02/18 08:22 Pulse Rate 80 05/02/18 08:22 Respiratory Rate 18 05/02/18 08:22 Blood Pressure 94/54 L 05/02/18 08:22 O2 Sat by Pulse Oximetry (%) 96 05/02/18 08:23 Constitutional: Yes: Well Nourished, Calm Eyes: Yes: WNL HENT: Yes: WNL Neck: Yes: WNL Cardiovascular: Yes: Pulse Irregular, S1, S2 Respiratory: Yes: Diminished Gastrointestinal: Yes: Normal Bowel Sounds, Soft Extremities: Yes: WNL Edema: Yes (less swelling rue) Labs: CBC, BMP 05/01/18 06:50 Problem List - Problems (1) Lung cancer Code(s): C34.90 - MALIGNANT NEOPLASM OF UNSP PART OF UNSP BRONCHUS OR LUNG Assessment/Plan Problem List - Problems (1) SVC syndrome Code(s): I87.1 - COMPRESSION OF VEIN (2) COPD (chronic obstructive pulmonary disease) Code(s): J44.9 - CHRONIC OBSTRUCTIVE PULMONARY DISEASE, UNSPECIFIED (3) Hemoptysis Code(s): R04.2 - HEMOPTYSIS (4) Lung mass Code(s): R91.8 - OTHER NONSPECIFIC ABNORMAL FINDING OF LUNG FIELD (5) Smoker Code(s): F17.200 - NICOTINE DEPENDENCE, UNSPECIFIED, UNCOMPLICATED (6) Paroxysmal atrial fibrillation Code(s): I48.0 - PAROXYSMAL ATRIAL FIBRILLATION Assessment/Plan Squamous Cell CA SVC Syndrome due to Lung Mass COPD Emphysema Hemoptysis Paroxysmal Atrial Fibrillation on anticoagulation Smoker Suspected RLL atelectasis - AC ,?LOVENOX - Rate control - Inhaled bronchodilators - Pain control - smoking cessation discussed - Monitor UE/chest edema: improving - pt for stent placement today DR ABRAMS
--- NOTE | 2018-05-02 12:22 | PN ---
Progress Note (short form) - Note Progress Note: Patient seen and examined at bedside with daughter and present no complaints right arm swelling only has trace edema and facial swelling has resolved left arm swelling resolved refused stent placement by IR due to risks or getting "pieces of the clot in my lung and no one guaranteeing me I'm going to be ok after the procedure" Vital Signs Temperature 98 F 05/02/18 08:22 Pulse Rate 80 05/02/18 08:22 Respiratory Rate 18 05/02/18 08:22 Blood Pressure 94/54 L 05/02/18 08:22 O2 Sat by Pulse Oximetry (%) 96 05/02/18 08:23 PE: NAD RRR S1 S2 faint bibasilar crackles the whole RUE is only minimally edematous but significantly improved No LE edema 04/09/18 08:30 Blood Culture - Final Blood - Peripheral Venous NO GROWTH AFTER 5 DAYS INCUBATION 04/09/18 08:20 Blood Culture - Final Blood - Peripheral Venous NO GROWTH AFTER 5 DAYS INCUBATION 04/09/18 10:20 Gram Stain - Final Sputum - Expectorated Sputum Culture - Final Citrobacter Koseri 04/09/18 10:20 Urine Culture - Final Urine - Urine Clean Catch NO GROWTH OBTAINED A/P: 62 yo male with PMHx of COPD, paroxysmal atrial fibrillation on eliquis, known lung mass who was sent from his [employer] office for increasing facial and arm swelling. 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 Squamous Cell CA SVC Syndrome due to Lung Mass Paroxysmal Atrial Fibrillation on eliquis COPD Emphysema Hemoptysis Smoker Suspect failed eliquis treatment now agreeable for SVC stent and thrombolysis-going today would consider Lovenox for outpatient anticoagulation continue heparin gtt for now-PTT 62 concurrent RT and chemo after stent per radiation oncology Will follow
[2018-05-02] MEDS ORDERED: ALTEPLASE 50MG 25 MG in SODIUM CHLORIDE 250 ML IVPB ONE (13:30)
--- NOTE | 2018-05-02 18:55 | CONSULT ---
Consultation: REQUESTING PROVIDER: CONSULT REQUEST: We have been asked to medically evaluate this patient for monitor s/p SVC stent placement on Tpa. HISTORY OF PRESENT ILLNESS: 62 yo M with PMH of cigarette smoking, COPD, Emphysema, HTN, recently diagnosed paroxysmal atrial fibrillation in 02/2018 (on Eliquis) and now found during this hospitalization w/ SVC syndrome 2/2 poorly differentiated squamous carcinoma of lung. Prior to admission pt has had worsening symptoms, of dyspnea on minimal exertion and with laying flat, and cough with occasional hemoptysis ("a spot" of blood) as well as new upper extremity edema and face/chest swelling. During hospital course pt underwent lung biopsy and last week partial thrombectomy for clots in the blood vessels of UE. Now pt is post op for thrombectomy w/ stent placement and tpa tx. Pt says swelling has gone down. Endorses flatus. Pt denies fever, MACKEY, sob, urinary sxs, numbness, tingling Concrete Engineer: Dr. Coffey Alum Plant Operator: Dr. Arceo REVIEW OF SYSTEMS: as per HPI PHYSICAL EXAMINATION Vital Signs - 24 hr 05/01/18 05/02/18 05/02/18 22:00 02:00 05:48 Temperature 98.1 F 97.9 F 98 F Pulse Rate 76 70 84 Pulse Rate [ Left Upper Arm] Respiratory 20 20 20 Rate Respiratory Rate [Left Upper Arm] Blood Pressure 117/55 L 99/58 L 105/67 Blood Pressure [Left Upper Arm ] O2 Sat by Pulse 98 Oximetry (%) O2 Sat by Pulse Oximetry (%) [ Left Upper Arm] 05/02/18 05/02/18 05/02/18 08:21 08:22 08:23 Temperature 98 F 98 F Pulse Rate 84 80 Pulse Rate [ Left Upper Arm] Respiratory 20 18 Rate Respiratory Rate [Left Upper Arm] Blood Pressure 105/67 94/54 L Blood Pressure [Left Upper Arm ] O2 Sat by Pulse 98 96 Oximetry (%) O2 Sat by Pulse Oximetry (%) [ Left Upper Arm] 05/02/18 05/02/18 05/02/18 13:05 13:23 13:33 Temperature Pulse Rate 75 Pulse Rate [ 73 70 Left Upper Arm] Respiratory 17 Rate Respiratory 15 17 Rate [Left Upper Arm] Blood Pressure 93/67 Blood Pressure 96/68 104/73 [Left Upper Arm ] O2 Sat by Pulse 97 Oximetry (%) O2 Sat by Pulse 97 97 Oximetry (%) [ Left Upper Arm] 05/02/18 05/02/18 05/02/18 13:43 13:52 14:02 Temperature Pulse Rate Pulse Rate [ 72 72 71 Left Upper Arm] Respiratory Rate Respiratory 17 17 21 H Rate [Left Upper Arm] Blood Pressure Blood Pressure 104/73 102/67 109/65 [Left Upper Arm ] O2 Sat by Pulse Oximetry (%) O2 Sat by Pulse 97 97 97 Oximetry (%) [ Left Upper Arm] 05/02/18 05/02/18 05/02/18 14:12 14:22 14:32 Temperature Pulse Rate Pulse Rate [ 70 68 69 Left Upper Arm] Respiratory Rate Respiratory 19 17 21 H Rate [Left Upper Arm] Blood Pressure Blood Pressure 102/72 98/67 95/69 [Left Upper Arm ] O2 Sat by Pulse Oximetry (%) O2 Sat by Pulse 97 98 100 Oximetry (%) [ Left Upper Arm] 05/02/18 05/02/18 05/02/18 14:42 14:52 15:02 Temperature Pulse Rate Pulse Rate [ 67 67 60 Left Upper Arm] Respiratory Rate Respiratory 19 20 20 Rate [Left Upper Arm] Blood Pressure Blood Pressure 95/69 115/71 108/74 [Left Upper Arm ] O2 Sat by Pulse Oximetry (%) O2 Sat by Pulse 100 100 98 Oximetry (%) [ Left Upper Arm] 05/02/18 05/02/18 05/02/18 15:12 15:22 15:32 Temperature Pulse Rate Pulse Rate [ 66 63 63 Left Upper Arm] Respiratory Rate Respiratory 19 21 H 17 Rate [Left Upper Arm] Blood Pressure Blood Pressure 118/74 116/76 130/71 [Left Upper Arm ] O2 Sat by Pulse Oximetry (%) O2 Sat by Pulse 98 97 97 Oximetry (%) [ Left Upper Arm] 05/02/18 05/02/18 05/02/18 15:42 17:01 17:02 Temperature Pulse Rate 66 74 72 Pulse Rate [ Left Upper Arm] Respiratory 18 18 18 Rate Respiratory Rate [Left Upper Arm] Blood Pressure 110/70 112/84 110/64 Blood Pressure [Left Upper Arm ] O2 Sat by Pulse 97 Oximetry (%) O2 Sat by Pulse Oximetry (%) [ Left Upper Arm] 05/02/18 05/02/18 05/02/18 17:14 17:15 17:45 Temperature Pulse Rate 82 82 Pulse Rate [ Left Upper Arm] Respiratory 18 18 Rate Respiratory Rate [Left Upper Arm] Blood Pressure 122/78 122/78 Blood Pressure [Left Upper Arm ] O2 Sat by Pulse 93 L Oximetry (%) O2 Sat by Pulse Oximetry (%) [ Left Upper Arm] GENERAL: AAOx3, NAD HEAD: NCAT EYES: PERRLA, EOMI, sclera anicteric, conjunctiva clear. No lid lag. EARS, NOSE, THROAT: MMM. NECK: Normal range of motion, supple with no LAD LUNGS: CTAB HEART: RRR, normal S1 and S2 without murmur, rub or gallop. ABDOMEN: Soft, NTND,+BS, no guarding, no rebound, no masses. R groin bandage c/ d UPPER EXTREMITIES: 2+ pulses, warm, well-perfused. No cyanosis. +clubbing. no edema LOWER EXTREMITIES: 2+ pulses, warm, well-perfused. No calf tenderness. No peripheral edema. NEUROLOGICAL: no focal deficits. PSYCHIATRIC: Appropriate mood and affect. Laboratory Results - last 24 hr 05/02/18 05:30 PTT (Actin FS) 62.0 H Active Medications Generic Name Dose Route Start Last Admin Trade Name Freq PRN Reason Stop Dose Admin Acetaminophen 650 mg 04/09/18 12:59 05/02/18 10:51 Tylenol - PO 650 mg Q6H PRN Administration PAIN OR FEVER Diltiazem HCl 180 mg 04/10/18 10:00 05/02/18 10:34 Cardizem Cd - PO 180 mg DAILY [facility] Administration Heparin Sodium (Porcine) 5,000 unit 04/21/18 17:50 04/28/18 20:38 Heparin - IVPUSH 5,000 unit PRN PRN Administration Heparin Heparin Sodium (Porcine) 1,000 unit 04/21/18 17:50 Heparin - IVPUSH PRN PRN Heparin Heparin Sodium/Dextrose 25,000 units in 500 mls @ 20 mls/hr 04/21/18 18:00 16:38 Heparin Infusion - IVPB 1,500 units/hr TITR ALON[facility]A 30 mls/hr Administration Protocol 1,000 UNITS/HR Alteplase, Recombinant 25 mg/ 250 mls @ 5 mls/hr 05/02/18 13:30 05/02/18 15: 49 Sodium Chloride IVPB 05/04/18 15:29 10 mls/hr Q24H ONE Administration Oxycodone HCl 10 mg 04/25/18 20:29 05/01/18 22:03 Roxicodone - PO 10 mg Q4H PRN Administration PAIN LEVEL 7 - 10 Oxycodone HCl 5 mg 04/25/18 20:29 05/02/18 10:51 Roxicodone - PO 5 mg Q4H PRN Administration PAIN LEVEL 4 - 6 Sotalol HCl 80 mg 04/08/18 19:00 05/02/18 10:34 Betapace - PO 80 mg BID [facility] Administration Tiotropium [place] 2 puff 04/08/18 10:00 05/02/18 10:34 Spiriva Respimat IH 2 puff DAILY [facility] Administration ASSESSMENT/PLAN: 62 yo M with PMH of cigarette smoking, COPD, Emphysema, HTN,Hep C post-treatment , Diastolic LV dysfunction with class 0 NYHA classification LV failure, recently diagnosed paroxysmal atrial fibrillation in 02/2018 (on Eliquis) and now found during this hospitalization w/ SVC syndrome 2/2 poorly differentiated squamous carcinoma of lung. POD 0 for SVC stent placement w/ Tpa tx. Neuro Intact, AOx3, no neuro deficits Cardio #SVC s/p Stent POD 0 groin checks Maintain MAP >65 #A-fib HR ctl w/ sotalol 80 bid, cardizem CD 180 qd cardiac monitoring Heparin gtt cardio following monitor H/H #HTN bp is ctl Pulm #SVC syndrome 2/2 poorly differentiated squamous carcinoma of lung s/p Stent POD 0 incentive spirometer maintain O2 sat >90% Heparin gtt pain ctl Tpa concurrent RT and chemo after stent per radiation oncology #COPD, Emphysema Inhaled bronchodilators spiriva FEN no IVF at this time replete lytes prn low sodium diet ppx heparin gtt, tpa Dispo: We will continue to follow the patient. Thank you for this consultative opportunity. Visit type - Emergency Visit Emergency Visit: Yes ED Registration Date: 04/07/18 Care time: The patient presented to the Emergency Department on the above date and was hospitalized for further evaluation of their emergent condition. - New Patient This patient is new to me today: Yes Date on this admission: 05/02/18 - Critical Care Critical Care patient: Yes Total Critical Care Time (in minutes): 35 Critical Care Statement: The care of this patient involved high complexity decision making to prevent further life threatening deterioration of the patient 's condition and/or to evaluate & treat vital organ system(s) failure or risk of failure.
[2018-05-02] MEDS: HEPARIN INFUSION - 25,000 UNITS/500 ML INFUS.BAG IVPB SCH (19:00)
--- NOTE | 2018-05-02 21:32 | PN ---
Progress Note (short form) - Note Progress Note: PAtient seen and examined swelling of face and RUE improved s/p IR stent placement/s/p tPA On heparin drip AFFVSS Cor: RSR, No murmurs, No gallops Lungs: Clear to P&A Abd: Soft, Normal bowel sounds, No organomegaly Ext:No significant edema Labs/Meds reviewed A/P 62-year-old male with a history of cigarette smoking, COPD, hypertension, recently diagnosed atrial fibrillation (on Eliquis) and known lung nodule for 20 years. He was scheduled for bronchoscopy in February, but was noted to have new atrial fibrillation at the time of the procedure, so it was deferred. Since that time, he has had worsening symptoms, including dyspnea on minimal exertion and with laying flat (he reports that he now has to sleep upright) and cough with occasional hemoptysis . He presents with worsening dyspnea and new upper extremity edema. He is referred for suspicion of possible SVC syndrome. CT imaging shows large central right upper lobe mass causing narrowing of SVC. Marked narrowing of distal SVC. path c/w --squamous cell carcinoma-- PDL1-0% stage III based on preliminary staging---needs PET-CT to complete staging. MRI brain/bone scan --negative Chemo/RT --carbo/taxol weekly with RT as outpatient SVC thrombosis -- on heparin will consider switching to lovenox on discharge ? hypercoagulable state of malignancy s/p stent placement by IR On heparin . s/p tpa
[2018-05-03] MEDS: oxyCODONE HCL 5 MG TABLET PO PRN ×3 (03:11→16:59)
[2018-05-03] MEDS ORDERED: PT OWN MED DRAWER 7, Y5N ONE (03:41)
--- NOTE | 2018-05-03 07:00 | PN ---
Progress Note (short form) - Note Progress Note: Chief Complaint: Events noted, notes reviewed, post intervention, currently Heparin and Alteplase infusion in progress, dyspnea persistent but improved, denies any chest pain, remains in sinus rhythm History of Present Illness: Seen and examined in the ICU. Events noted, notes reviewed, post intervention, currently Heparin and Alteplase infusion in progress, dyspnea persistent but improved, denies any chest pain, remains in sinus rhythm As outlined in prior notes oncology note appreciated, to consider Lovenox instead of Heparin (other option would be Xarelto), to be discussed with the primary team Holter monitor dated 02/22/2018 revealed sinus rhythm with paroxysmal atrial fibrillation/atrial flutter with aberrant conduction (RBBB morphology) 5.44% of time, frequent PAC's, PVC's CT scan of the chest dated 12/22/2017 Large irregular cavitary soft tissue mass involving right superior mediastinum in right to mid and superior hilar region suspicious for primary or secondary malignancy CT scan of the chest dated 04/07/2018 Large central RUL mass with invasion of mediastinum and adjacent consolidation/ATX RUL, distal SVC stenosis without obstruction with collateralization Echocardiograohy dated 03/11/2018 Normal LV and RV size and fxn with abnl LV compliance, mildly dilated ascending aorta, mild MR, TR. tr CO MPI study dated 03/29/2018 Negative maximal stress test for ischemia, LVEF 60% Medications: Current Medications Acetaminophen (Tylenol -) 650 mg PO Q6H PRN PRN Reason: PAIN OR FEVER Last Admin: 05/02/18 10:51 Dose: 650 mg Diltiazem HCl (Cardizem Cd -) 180 mg PO DAILY [facility] Last Admin: 05/02/18 10:34 Dose: 180 mg Heparin Sodium (Porcine) (Heparin -) 5,000 unit IVPUSH PRN PRN PRN Reason: Heparin Last Admin: 04/28/18 20:38 Dose: 5,000 unit Heparin Sodium (Porcine) (Heparin -) 1,000 unit IVPUSH PRN PRN PRN Reason: Heparin Heparin Sodium/Dextrose (Heparin Infusion -) 25,000 units in 500 mls @ 20 mls/ hr IVPB TITR [facility]; Protocol Last Admin: 05/02/18 19:00 Dose: 1,500 units/hr, 30 mls/hr Alteplase, Recombinant 25 mg/ (Sodium Chloride) 250 mls @ 5 mls/hr IVPB Q24H ONE Stop: 05/04/18 15:29 Last Admin: 05/02/18 15:49 Dose: 10 mls/hr Oxycodone HCl (Roxicodone -) 10 mg PO Q4H PRN PRN Reason: PAIN LEVEL 7 - 10 Last Admin: 05/03/18 03:11 Dose: 10 mg Oxycodone HCl (Roxicodone -) 5 mg PO Q4H PRN PRN Reason: PAIN LEVEL 4 - 6 Last Admin: 05/02/18 10:51 Dose: 5 mg Sotalol HCl (Betapace -) 80 mg PO BID [facility] Last Admin: 05/02/18 21:34 Dose: 80 mg Tiotropium [place] (Spiriva Respimat) 2 puff IH DAILY [facility] Last Admin: 05/02/18 10:34 Dose: 2 puff Review of Systems - Review of Systems Constitutional: no symptoms reported Respiratory: denies Cough Cardiovascular: as noted above Gastrointestinal: denies Nausea, Vomiting, Diarrhea, Constipation or Abdominal Pain Genitourinary: no symptoms reported Musculoskeletal: no symptoms reported Endocrine: no symptoms reported Vital Signs: Last Vital Signs Temp Pulse Resp BP Pulse Ox 97.8 F 76 20 109/71 92 L 05/03/18 02:00 05/03/18 05:00 05/03/18 05:00 05/03/18 05:00 05/02/18 22:00 Intake & Output 04/30/18 05/01/18 05/02/18 05/03/18 23:59 23:59 23:59 23:59 Intake Total 1406 1180 860 50 Output Total 1100 1000 550 280 Balance 306 180 310 -230 Neck: Supple Negative JVD Respiratory: Diminished Breath Sounds Bilaterally Cardiovascular: S1 S2 Regular Rate and Rhythm Gastrointestinal: Soft Benign Normal Bowel Sounds Ext: Negative Edema Labs: CBC, BMP 05/01/18 06:50 05/01/18 06:50 Assessment/Plan ASSESSMENT: 1. SVC Syndrome related to to mediastinal mass, post stent insertion/Heparin and Alteplase infusion in progress 2. RUL Lung Mass, moderately differentiated squamous cell carcinoma for therapy initiation 3. COPD/Emphysema 4. Paroxysmal Atrial Fibrillation/paroxysmal atrial flutter [id number] score of 1 on anticoagulation, on Heparin to consider Lovenox long-term other option would be Xarelto (A/C would be for PAF and tumor associated thrombosis) 5. Diastolic LV dysfunction with class 0 NYHA classification LV failure 6. HTN/HCVD 7. Hepatitis C post-treatment 8. Smoker until recently PLAN: 1. As outlined above to consider Lovenox as an alternative to Heparin other option Xarelto as outlined above 2. Continue Betapace with close monitoring of QTc interval 3. Continue Cardizem CD, hemodynamics permitting 4. Heparin and Alteplase infusion in progress as per TING Coffey M.D.
[2018-05-03 08:06] LABS: BASO % 0.6 % (0-2.0); EOS % 2.5 % (0-4.5); HEMATOCRIT 37.4 % (35.4-49); HEMOGLOBIN 12.4 GM/dL (11.7-16.9); LYMPH % 19.8 % (8-40); MCH 30.4 pg (25.7-33.7); MCHC 33.1 g/dl (32.0-35.9); MEAN CELL VOLUME 91.9 fl (80-96); MEAN PLT VOLUME 7.1 fl (7.5-11.1); NEUT % 64.1 % (42.8-82.8); PLATELET COUNT 130 K/MM3 (134-434); RBC 4.07 M/mm3 (4.00-5.60); RDW 15.2 % (11.9-15.9); WHITE BLOOD COUNT 5.5 K/mm3 (4.0-10.0)
[2018-05-03 08:11] LABS: ALBUMIN 3.2 g/dl (3.4-5.0); ALK PHOS 60 U/L (45-117); ANION GAP 10 MMOL/L (8-16); BILIRUBIN,TOTAL 0.7 mg/dL (0.2-1); BLOOD UREA NITROGEN 13 mg/dL (7-18); CALCIUM 10.8 mg/dL (8.5-10.1); CHLORIDE 99 mmol/L (98-107); CO2 28 mmol/L (21-32); CREATININE 0.7 mg/dL (0.55-1.3); GLUCOSE,RANDOM 99 mg/dL (74-106); POTASSIUM 4.4 mmol/L (3.5-5.1); SGOT/AST 16 U/L (15-37); SGPT/ALT 26 U/L (13-61); SODIUM 137 mmol/L (136-145); TOT PROT 7.2 g/dl (6.4-8.2)
[2018-05-03] MEDS: SOTALOL HCL 80 MG TABLET (FP) PO SCH ×2 (10:12→22:08)
--- NOTE | 2018-05-03 10:35 | PN ---
Progress Note, Physician - Current Medication List Current Medications: Active Medications Acetaminophen (Tylenol -) 650 mg PO Q6H PRN PRN Reason: PAIN OR FEVER Last Admin: 05/02/18 10:51 Dose: 650 mg Diltiazem HCl (Cardizem Cd -) 180 mg PO DAILY [facility] Last Admin: 05/03/18 10:12 Dose: 180 mg Heparin Sodium (Porcine) (Heparin -) 5,000 unit IVPUSH PRN PRN PRN Reason: Heparin Last Admin: 04/28/18 20:38 Dose: 5,000 unit Heparin Sodium (Porcine) (Heparin -) 1,000 unit IVPUSH PRN PRN PRN Reason: Heparin Heparin Sodium/Dextrose (Heparin Infusion -) 25,000 units in 500 mls @ 20 mls/ hr IVPB TITR [facility]; Protocol Last Admin: 05/02/18 19:00 Dose: 1,500 units/hr, 30 mls/hr Alteplase, Recombinant 25 mg/ (Sodium Chloride) 250 mls @ 5 mls/hr IVPB Q24H ONE Stop: 05/04/18 15:29 Last Admin: 05/02/18 15:49 Dose: 10 mls/hr Oxycodone HCl (Roxicodone -) 10 mg PO Q4H PRN PRN Reason: PAIN LEVEL 7 - 10 Last Admin: 05/03/18 10:14 Dose: 10 mg Oxycodone HCl (Roxicodone -) 5 mg PO Q4H PRN PRN Reason: PAIN LEVEL 4 - 6 Last Admin: 05/02/18 10:51 Dose: 5 mg Sotalol HCl (Betapace -) 80 mg PO BID [facility] Last Admin: 05/03/18 10:12 Dose: 80 mg Tiotropium [place] (Spiriva Respimat) 2 puff IH DAILY [facility] Last Admin: 05/02/18 10:34 Dose: 2 puff - Objective Vital Signs: Vital Signs Temperature 98.6 F 05/03/18 10:00 Pulse Rate 76 05/03/18 10:00 Respiratory Rate 18 05/03/18 10:00 Blood Pressure 90/73 05/03/18 10:00 O2 Sat by Pulse Oximetry (%) 94 L 05/03/18 08:59 Cardiovascular: Yes: S1, S2 Respiratory: Yes: Regular, CTA Bilaterally Gastrointestinal: Yes: Normal Bowel Sounds, Soft Labs: CBC, BMP 05/03/18 05:30 05/03/18 05:30 INR, PTT INR 1.18 (0.83-1.09) H 04/30/18 06:55 Fibrinogen > 500.0 mg/dL (238-498) H 04/10/18 13:15 Problem List - Problems (1) Lung cancer Code(s): C34.90 - MALIGNANT NEOPLASM OF UNSP PART OF UNSP BRONCHUS OR LUNG (2) Dyspnea Code(s): R06.00 - DYSPNEA, UNSPECIFIED Qualifiers: Dyspnea type: dyspnea on exertion Qualified Code(s): R06.09 - Other forms of dyspnea (3) Afib Code(s): I48.91 - UNSPECIFIED ATRIAL FIBRILLATION (4) COPD (chronic obstructive pulmonary disease) Code(s): J44.9 - CHRONIC OBSTRUCTIVE PULMONARY DISEASE, UNSPECIFIED Qualifiers: COPD type: unspecified COPD Qualified Code(s): J44.9 - Chronic obstructive pulmonary disease, unspecified (5) SVC syndrome Code(s): I87.1 - COMPRESSION OF VEIN Assessment/Plan - Problems (1) Afib Assessment/Plan: -Tele monitoring -Cardiology on board -On heparin drip -On CCB and BB Code(s): I48.91 - UNSPECIFIED ATRIAL FIBRILLATION (2) Lung cancer Assessment/Plan: Oncology and pulmonary on board Code(s): C34.90 - MALIGNANT NEOPLASM OF UNSP PART OF UNSP BRONCHUS OR LUNG (3) SVC syndrome Assessment/Plan: -Seen by IR -Heparin drip -Thrombectomy and SVC stent DONE -Would need Lovenox outpatient for anticoagulation due to failure to Eliquis Code(s): I87.1 - COMPRESSION OF VEIN (4) Guaiac positive stools Assessment/Plan: -GI consult -monitor H/H -labs in AM -Likely no intervention at this time. 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
--- NOTE | 2018-05-03 12:03 | PN ---
Progress Note (short form) - Note Progress Note: Patient seen and examined at bedside with daughter and present no complaints s/p SVC stent by IR and currently has TPA and heparin infusion tolerated procedure well Vital Signs Temp 98.6 F 05/03/18 10:00 Pulse 76 05/03/18 10:00 Resp 18 05/03/18 10:00 BP 90/73 05/03/18 10:00 Pulse Ox 94 L 05/03/18 10:00 Intake & Output 05/02/18 05/03/18 05/03/18 23:59 11:59 23:59 Intake Total 400 370 Output Total 550 530 Balance -150 -160 Intake: IV 160 320 HEPARIN INFUSION - 25,000 120 240 units In 500 ml @ 1,000 UNITS/HR 20 mls/hr IVPB TITR [facility] Rx#:[id number] TPA 40 80 Oral 240 50 Output: Urine 550 530 Void 550 530 Other: Voiding Method Urinal Urinal Bowel Movement No No PE: NAD RRR S1 S2 faint bibasilar crackles the whole RUE is only minimally edematous but significantly improved No LE edema 05/03/18 05/03/18 05:30 05:30 WBC 5.5 RBC 4.07 Hgb 12.4 Hct 37.4 MCV 91.9 MCHC 33.1 RDW 15.2 Plt Count 130 L D Neutrophils % 64.1 Lymphocytes % 19.8 Monocytes % 13.0 H Eosinophils % 2.5 Basophils % 0.6 Sodium 137 Potassium 4.4 Chloride 99 Carbon Dioxide 28 Anion Gap 10 BUN 13 Creatinine 0.7 04/09/18 08:30 Blood Culture - Final Blood - Peripheral Venous NO GROWTH AFTER 5 DAYS INCUBATION 04/09/18 08:20 Blood Culture - Final Blood - Peripheral Venous NO GROWTH AFTER 5 DAYS INCUBATION 04/09/18 10:20 Gram Stain - Final Sputum - Expectorated Sputum Culture - Final Citrobacter Koseri 04/09/18 10:20 Urine Culture - Final Urine - Urine Clean Catch NO GROWTH OBTAINED A/P: 62 yo male with PMHx of COPD, paroxysmal atrial fibrillation on eliquis, known lung mass who 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 Squamous Cell CA SVC Syndrome due to Lung Mass Paroxysmal Atrial Fibrillation on eliquis COPD Emphysema Hemoptysis Smoker Suspect failed eliquis treatment s/p SVC stent and catheter directed TPA/heparin would consider Lovenox for outpatient anticoagulation continue heparin gtt for now trend coags concurrent RT and chemo in future per radiation oncology Will follow
--- NOTE | 2018-05-03 13:41 | PN ---
Teaching Attending Note Name of Resident: David Mariee ATTENDING PHYSICIAN STATEMENT I saw and evaluated the patient. I reviewed the resident's note and discussed the case with the resident. I agree with the resident's findings and plan as documented. SUBJECTIVE: Pt seen and examined in the ICU. s/p SVC stent placement. tPA infusing. OBJECTIVE: Vital Signs Period Temp Pulse Resp BP Sys/Gtz Pulse Ox Last 24 Hr 97.8 F-98.6 F 60-84 16-21 90-132/63-84 92-100 Intake & Output 04/30/18 05/01/18 05/02/18 05/03/18 23:59 23:59 23:59 23:59 Intake Total 1406 1180 860 370 Output Total 1100 1000 550 530 Balance 306 180 310 -160 Gen: NAD at rest Heart: RRR Lung: decreased breath sounds at the bases Abd: soft, nontender Ext: UE edema improving CBC, BMP 05/03/18 05:30 05/03/18 05:30 Active Medications Acetaminophen (Tylenol -) 650 mg PO Q6H PRN PRN Reason: PAIN OR FEVER Last Admin: 05/02/18 10:51 Dose: 650 mg Diltiazem HCl (Cardizem Cd -) 180 mg PO DAILY [facility] Last Admin: 05/03/18 10:12 Dose: 180 mg Heparin Sodium (Porcine) (Heparin -) 5,000 unit IVPUSH PRN PRN PRN Reason: Heparin Last Admin: 04/28/18 20:38 Dose: 5,000 unit Heparin Sodium (Porcine) (Heparin -) 1,000 unit IVPUSH PRN PRN PRN Reason: Heparin Heparin Sodium/Dextrose (Heparin Infusion -) 25,000 units in 500 mls @ 20 mls/ hr IVPB TITR [facility]; Protocol Last Admin: 05/02/18 19:00 Dose: 1,500 units/hr, 30 mls/hr Alteplase, Recombinant 25 mg/ (Sodium Chloride) 250 mls @ 5 mls/hr IVPB Q24H ONE Stop: 05/04/18 15:29 Last Admin: 05/02/18 15:49 Dose: 10 mls/hr Sotalol HCl (Betapace -) 80 mg PO BID [facility] Last Admin: 05/03/18 10:12 Dose: 80 mg Tiotropium [place] (Spiriva Respimat) 2 puff IH DAILY [facility] Last Admin: 05/02/18 10:34 Dose: 2 puff ASSESSMENT AND PLAN: Newly Diagnosed Lung Cancer SVC Syndrome COPD Emphysema Hemoptysis Paroxysmal Atrial Fibrillation on anticoagulation Smoker Suspected RLL atelectasis - s/p SVC stent placement - complete tPA - incentive spirometry - rate control - inhaled bronchodilators - chemo/RT post SVC stent placement Problem List - Problems (1) SVC syndrome Code(s): I87.1 - COMPRESSION OF VEIN (2) COPD (chronic obstructive pulmonary disease) Code(s): J44.9 - CHRONIC OBSTRUCTIVE PULMONARY DISEASE, UNSPECIFIED Qualifiers: Qualified Code(s): J44.9 - Chronic obstructive pulmonary disease, unspecified (3) Hemoptysis Code(s): R04.2 - HEMOPTYSIS (4) Smoker Code(s): F17.200 - NICOTINE DEPENDENCE, UNSPECIFIED, UNCOMPLICATED (5) Paroxysmal atrial fibrillation Code(s): I48.0 - PAROXYSMAL ATRIAL FIBRILLATION
--- NOTE | 2018-05-03 13:42 | PN ---
Physical Exam: SUBJECTIVE: Patient seen and examined in the ICU. pt comfortable, passing flatus and tolerating PO. denies cp, sob, n/v/d, neuro deficits, swelling. some bleeding noted at groin site. OBJECTIVE: Vital Signs Period Temp Pulse Resp BP Sys/Gtz Pulse Ox Last 24 Hr 97.8 F-98.6 F 60-84 16-21 90-132/63-84 92-100 GENERAL: AAOx3, NAD HEAD: NCAT EYES: PERRLA, EOMI, sclera anicteric, conjunctiva clear. No lid lag. EARS, NOSE, THROAT: MMM. NECK: Normal range of motion, supple with no LAD LUNGS: CTAB HEART: RRR, normal S1 and S2 without murmur, rub or gallop. ABDOMEN: Soft, NTND,+BS, no guarding, no rebound, no masses. R groin bandage some red blood noted UPPER EXTREMITIES: 2+ pulses, warm, well-perfused. No cyanosis. +clubbing. no edema LOWER EXTREMITIES: 2+ pulses, warm, well-perfused. No calf tenderness. No peripheral edema. NEUROLOGICAL: no focal deficits. PSYCHIATRIC: Appropriate mood and affect. Laboratory Results - last 24 hr 05/03/18 05/03/18 05/03/18 05:30 05:30 05:30 WBC 5.5 RBC 4.07 Hgb 12.4 Hct 37.4 MCV 91.9 MCH 30.4 MCHC 33.1 RDW 15.2 Plt Count 130 L D MPV 7.1 L Absolute Neuts (auto) 3.6 Neutrophils % 64.1 Lymphocytes % 19.8 Monocytes % 13.0 H Eosinophils % 2.5 Basophils % 0.6 Nucleated RBC % 0 PTT (Actin FS) 66.2 H Sodium 137 Potassium 4.4 Chloride 99 Carbon Dioxide 28 Anion Gap 10 BUN 13 Creatinine 0.7 Creat Clearance w eGFR > 60 Random Glucose 99 Calcium 10.8 H Total Bilirubin 0.7 AST 16 ALT 26 Alkaline Phosphatase 60 Total Protein 7.2 Albumin 3.2 L Active Medications Generic Name Dose Route Start Last Admin Trade Name Freq PRN Reason Stop Dose Admin Acetaminophen 650 mg 04/09/18 12:59 05/02/18 10:51 Tylenol - PO 650 mg Q6H PRN Administration PAIN OR FEVER Diltiazem HCl 180 mg 04/10/18 10:00 05/03/18 10:12 Cardizem Cd - PO 180 mg DAILY [facility] Administration Heparin Sodium (Porcine) 5,000 unit 04/21/18 17:50 04/28/18 20:38 Heparin - IVPUSH 5,000 unit PRN PRN Administration Heparin Heparin Sodium (Porcine) 1,000 unit 04/21/18 17:50 Heparin - IVPUSH PRN PRN Heparin Heparin Sodium/Dextrose 25,000 units in 500 mls @ 20 mls/hr 04/21/18 18:00 19:00 Heparin Infusion - IVPB 1,500 units/hr TITR [facility] 30 mls/hr Administration Protocol 1,000 UNITS/HR Alteplase, Recombinant 25 mg/ 250 mls @ 5 mls/hr 05/02/18 13:30 05/02/18 15: 49 Sodium Chloride IVPB 05/04/18 15:29 10 mls/hr Q24H ONE Administration Sotalol HCl 80 mg 04/08/18 19:00 05/03/18 10:12 Betapace - PO 80 mg BID [facility] Administration Tiotropium [place] 2 puff 04/08/18 10:00 05/02/18 10:34 Spiriva Respimat IH 2 puff DAILY [facility] Administration ASSESSMENT/PLAN: 62 yo M with PMH of cigarette smoking, COPD, Emphysema, HTN,Hep C post-treatment , Diastolic LV dysfunction with class 0 NYHA classification LV failure, recently diagnosed paroxysmal atrial fibrillation in 02/2018 (on Eliquis) and now found during this hospitalization w/ SVC syndrome 2/2 poorly differentiated squamous carcinoma of lung. POD 1 for SVC stent placement w/ Alteplase tx. pt going to IR today for rpt imaging to asses patency of vessels Neuro Intact, AOx3, no neuro deficits Cardio #SVC s/p Stent POD 1 groin checks, some bleeding noted at site Maintain MAP >65 pt going to IR today for rpt imaging to asses patency of vessels #A-fib HR ctl w/ sotalol 80 bid, cardizem CD 180 qd cardiac monitoring daily EKG, monitor Qtc Heparin gtt cardio following monitor H/H, 11.7...12.4 #HTN bp is ctl Pulm #SVC syndrome 2/2 poorly differentiated squamous carcinoma of lung s/p Stent POD 1 incentive spirometer maintain O2 sat >90% Heparin gtt pain ctl Alteplase concurrent RT and chemo after stent per radiation oncology #COPD, Emphysema Inhaled bronchodilators spiriva FEN no IVF at this time replete lytes prn low sodium diet ppx heparin gtt, Alteplase group home, consider Lovenox (benefit in [place] pt) as an alternative to Heparin, other option would be Xarelto Heme following Dispo: pt going to IR today for rpt imaging to asses patency of vessels possible transfer to med/surg after IR imaging We will continue to follow the patient. Thank you for this consultative opportunity. Visit type - Emergency Visit Emergency Visit: Yes ED Registration Date: 04/07/18 Care time: The patient presented to the Emergency Department on the above date and was hospitalized for further evaluation of their emergent condition. - New Patient This patient is new to me today: Yes Date on this admission: 05/03/18 - Critical Care Critical Care patient: Yes Total Critical Care Time (in minutes): 37 Critical Care Statement: The care of this patient involved high complexity decision making to prevent further life threatening deterioration of the patient 's condition and/or to evaluate & treat vital organ system(s) failure or risk of failure.
--- NOTE | 2018-05-03 16:13 | EKG ---
Test Reason : Blood Pressure : / mmHG Vent. Rate : 076 BPM Atrial Rate : 059 BPM P-R Int : 000 ms QRS Dur : 082 ms QT Int : 362 ms P-R-T Axes : 000 014 048 degrees QTc Int : 407 ms ATRIAL FIBRILLATION ABNORMAL ECG WHEN COMPARED WITH ECG OF 26-APR-2018 14:49, ATRIAL FIBRILLATION HAS REPLACED SINUS RHYTHM Confirmed by MD KAY, CHRISTINA ([id number]) on 05/03/2018 4:13:29 PM Referred By: GRACE ERICKSON Confirmed By:CHRISTINA VILLANUEVA MD
[2018-05-03] MEDS ORDERED: oxyCODONE HCL 5 MG TABLET PO PRN (16:45)
--- NOTE | 2018-05-03 16:48 | PN ---
Teaching Attending Note Name of Resident: Logan Espino ATTENDING PHYSICIAN STATEMENT I saw and evaluated the patient. I reviewed the resident's note and discussed the case with the resident. I agree with the resident's findings and plan as documented. SUBJECTIVE:Patient seen and examined S/P TPA, stent placement Last Vital Signs Temp Pulse Resp BP Pulse Ox 98.6 F 74 18 102/65 96 05/03/18 10:00 05/03/18 16:16 05/03/18 16:16 05/03/18 16:16 05/03/18 15:10 HEENT: ROSARIO, EOM Intact,edentulous Oropharynx: No thrush, No mucositis Cor: RSR, No murmurs, No gallops Lungs: diminished Abd: Soft, Normal bowel sounds, No organomegaly Ext:No significant edema Skin: No rashes, Integument intact CBC, BMP 05/03/18 05:30 05/03/18 05:30 Current Medications Generic Name Dose Route Start Last Admin Trade Name Freq PRN Reason Stop Dose Admin Acetaminophen 650 mg 04/09/18 12:59 05/02/18 10:51 Tylenol - PO 650 mg Q6H PRN Administration PAIN OR FEVER Diltiazem HCl 180 mg 04/10/18 10:00 05/03/18 10:12 Cardizem Cd - PO 180 mg DAILY [facility] Administration Heparin Sodium (Porcine) 5,000 unit 04/21/18 17:50 04/28/18 20:38 Heparin - IVPUSH 5,000 unit PRN PRN Administration Heparin Heparin Sodium (Porcine) 1,000 unit 04/21/18 17:50 Heparin - IVPUSH PRN PRN Heparin Heparin Sodium/Dextrose 25,000 units in 500 mls @ 20 mls/hr 04/21/18 18:00 19:00 Heparin Infusion - IVPB 1,500 units/hr TITR [facility] 30 mls/hr Administration Protocol 1,000 UNITS/HR Alteplase, Recombinant 25 mg/ 250 mls @ 5 mls/hr 05/02/18 13:30 05/02/18 15: 49 Sodium Chloride IVPB 05/04/18 15:29 10 mls/hr Q24H ONE Administration Sotalol HCl 80 mg 04/08/18 19:00 05/03/18 10:12 Betapace - PO 80 mg BID [facility] Administration Tiotropium [place] 2 puff 04/08/18 10:00 05/02/18 10:34 Spiriva Respimat IH 2 puff DAILY [facility] Administration OBJECTIVE:Impression: Squamous cell ca of lung SVC syndrome S/P thrombolysis Consider RT/Chemotherapy Lovenox for anticoagulation therapy. ASSESSMENT AND PLAN:
[2018-05-03] MEDS: TIOTROPIUM BROMIDE 2.5 MCG (SPIRIVA) RESPIMAT INHALER IH SCH (16:52)
[2018-05-03] MEDS: DOCUSATE SODIUM 100 MG CAPSULE (FP) PO SCH (22:08)
[2018-05-04] MEDS: oxyCODONE HCL 5 MG TABLET PO PRN ×3 (00:04→22:14)
[2018-05-04 06:21] LABS: BASO % 0.6 % (0-2.0); EOS % 2.2 % (0-4.5); HEMATOCRIT 34.7 % (35.4-49); HEMOGLOBIN 11.6 GM/dL (11.7-16.9); LYMPH % 25.9 % (8-40); MCH 30.6 pg (25.7-33.7); MCHC 33.5 g/dl (32.0-35.9); MEAN CELL VOLUME 91.3 fl (80-96); MEAN PLT VOLUME 6.9 fl (7.5-11.1); MONO % 11.5 % (3.8-10.2); NEUT % 59.8 % (42.8-82.8); PLATELET COUNT 103 K/MM3 (134-434); RDW 14.7 % (11.9-15.9)
[2018-05-04 06:47] LABS: ALBUMIN 2.9 g/dl (3.4-5.0); ALK PHOS 55 U/L (45-117); ANION GAP 8 MMOL/L (8-16); BILIRUBIN,TOTAL 0.6 mg/dL (0.2-1); BLOOD UREA NITROGEN 14 mg/dL (7-18); CALCIUM 10.3 mg/dL (8.5-10.1); CHLORIDE 98 mmol/L (98-107); CO2 28 mmol/L (21-32); CREATININE 0.8 mg/dL (0.55-1.3); GLUCOSE,RANDOM 101 mg/dL (74-106); POTASSIUM 4.3 mmol/L (3.5-5.1); SGOT/AST 11 U/L (15-37); SGPT/ALT 21 U/L (13-61); SODIUM 134 mmol/L (136-145); TOT PROT 6.8 g/dl (6.4-8.2)
--- NOTE | 2018-05-04 09:20 | PN ---
Progress Note (short form) - Note Progress Note: Radiation Oncology No complaints s/p TPA and SVC stent, post procedure monitoring in ICU. Right neck/arm swelling improved. Right proximal LE C/D/I w/o hematoma or drainage. MRI brain/BS neg for mets. Plts decreasing to 100k Impression: Locally advanced RUL NSCLC associated w SVC compression s/p stent. Clinically stable w stent, may start outpatient RT when discharged. If prolonged hospitalization is needed, will consider CT simulation before discharge. B/A/R of RT discussed. Pt agrees. Will need concurrent chemo as per medical onc. Cont anticoagulation. Monitor CBC for thrombocytopenia. Outpatient PET-CT to complete staging.
--- NOTE | 2018-05-04 10:00 | PN ---
Progress Note, Physician Chief Complaint: EVENTS AND NOTES REVIEWED PATIENT IS AWAKE ALERT IN ICU LIKELY FAILED ELIQUIS TX WITH SVC SYNDROME - Current Medication List Current Medications: Active Medications Acetaminophen (Tylenol -) 650 mg PO Q6H PRN PRN Reason: PAIN OR FEVER Last Admin: 05/02/18 10:51 Dose: 650 mg Diltiazem HCl (Cardizem Cd -) 180 mg PO DAILY [facility] Last Admin: 05/03/18 10:12 Dose: 180 mg Docusate Sodium (Colace -) 100 mg PO BID [facility] Last Admin: 05/03/18 22:08 Dose: 100 mg Heparin Sodium (Porcine) (Heparin -) 5,000 unit IVPUSH PRN PRN PRN Reason: Heparin Last Admin: 04/28/18 20:38 Dose: 5,000 unit Heparin Sodium (Porcine) (Heparin -) 1,000 unit IVPUSH PRN PRN PRN Reason: Heparin Heparin Sodium/Dextrose (Heparin Infusion -) 25,000 units in 500 mls @ 20 mls/ hr IVPB TITR [facility]; Protocol Last Admin: 05/02/18 19:00 Dose: 1,500 units/hr, 30 mls/hr Alteplase, Recombinant 25 mg/ (Sodium Chloride) 250 mls @ 5 mls/hr IVPB Q24H ONE Stop: 05/04/18 15:29 Last Admin: 05/02/18 15:49 Dose: 10 mls/hr Oxycodone HCl (Roxicodone -) 10 mg PO Q6H PRN PRN Reason: PAIN LEVEL 7 - 10 Last Admin: 05/04/18 00:04 Dose: 10 mg Oxycodone HCl (Roxicodone -) 5 mg PO Q6H PRN PRN Reason: PAIN LEVEL 4 - 6 Sotalol HCl (Betapace -) 80 mg PO BID [facility] Last Admin: 05/03/18 22:08 Dose: 80 mg Tiotropium [place] (Spiriva Respimat) 2 puff IH DAILY [facility] Last Admin: 05/03/18 16:52 Dose: 2 puff - Objective Vital Signs: Vital Signs Temperature 97.2 F L 05/04/18 06:15 Pulse Rate 80 05/04/18 08:00 Respiratory Rate 14 05/04/18 08:00 Blood Pressure 92/69 05/04/18 08:00 O2 Sat by Pulse Oximetry (%) 93 L 05/03/18 22:00 Constitutional: Yes: Mild Distress Eyes: Yes: WNL HENT: Yes: Other Neck: Yes: Other (EDEMA) Cardiovascular: Yes: WNL Respiratory: Yes: Diminished, On Nasal O2 Gastrointestinal: Yes: WNL Genitourinary: Yes: WNL Musculoskeletal: Yes: Muscle Weakness Extremities: Yes: WNL Edema: Yes Peripheral Pulses WNL: Yes Integumentary: Yes: WNL Wound/Incision: Yes: Clean/Dry Neurological: Yes: WNL ...Motor Strength: WNL Psychiatric: Yes: WNL Labs: CBC, BMP 05/04/18 05:30 05/04/18 05:30 INR, PTT INR 1.18 (0.83-1.09) H 04/30/18 06:55 Fibrinogen > 500.0 mg/dL (238-498) H 04/10/18 13:15 Problem List - Problems (1) Afib Code(s): I48.91 - UNSPECIFIED ATRIAL FIBRILLATION (2) COPD (chronic obstructive pulmonary disease) Code(s): J44.9 - CHRONIC OBSTRUCTIVE PULMONARY DISEASE, UNSPECIFIED Qualifiers: COPD type: unspecified COPD Qualified Code(s): J44.9 - Chronic obstructive pulmonary disease, unspecified (3) Dyspnea Code(s): R06.00 - DYSPNEA, UNSPECIFIED Qualifiers: Dyspnea type: dyspnea on exertion Qualified Code(s): R06.09 - Other forms of dyspnea (4) Hemoptysis Code(s): R04.2 - HEMOPTYSIS (5) Lung mass Code(s): R91.8 - OTHER NONSPECIFIC ABNORMAL FINDING OF LUNG FIELD (6) Paroxysmal atrial fibrillation Code(s): I48.0 - PAROXYSMAL ATRIAL FIBRILLATION (7) SVC syndrome Code(s): I87.1 - COMPRESSION OF VEIN (8) Smoker Code(s): F17.200 - NICOTINE DEPENDENCE, UNSPECIFIED, UNCOMPLICATED (9) Squamous cell lung cancer Code(s): C34.90 - MALIGNANT NEOPLASM OF UNSP PART OF UNSP BRONCHUS OR LUNG Assessment/Plan LIKELY FAILED ELIQUIS TREATMENT WITH SVC SYNDROME IV HEPARIN FOR NOW, WILL NEED LOVENOX BID FOR TREATMENT ONCOLOGY EVAL APPRECIATED SQUAMOUS CELL CA WILL NEED RT/CHEMO OUTPATIENT PET SCAN OUTPATIENT INCREASE NOURISHMENT ENSURES/PROTEIN/AMINOS OOB TO CHAIR MONITOR BP ON LOW SIDE WILL ADJUST MEDS CARDIO/PULM F/U APPRECIATED
[2018-05-04] MEDS: SOTALOL HCL 80 MG TABLET (FP) PO SCH ×2 (10:01→22:14)
[2018-05-04] MEDS: DOCUSATE SODIUM 100 MG CAPSULE (FP) PO SCH ×2 (10:01→22:14)
[2018-05-04] MEDS: ACETAMINOPHEN 325 MG TABLET (FP) PO PRN (10:08)
[2018-05-04] MEDS: TIOTROPIUM BROMIDE 2.5 MCG (SPIRIVA) RESPIMAT INHALER IH SCH (10:30)
--- NOTE | 2018-05-04 11:58 | PN ---
Progress Note (short form) - Note Progress Note: Patient seen and examined at bedside with daughter and present no complaints s/p SVC stent by IR Feels well spoke with radiation Oncology this AM tolerated procedure well Vital Signs Temp 98.1 F 05/04/18 10:00 Pulse 79 05/04/18 10:00 Resp 14 05/04/18 10:00 BP 100/56 L 05/04/18 10:00 Pulse Ox 93 L 05/03/18 22:00 Intake & Output 05/03/18 05/03/18 05/04/18 11:59 23:59 11:59 Intake Total 370 1320 240 Output Total 530 2000 300 Balance -160 -680 -60 Intake: IV 320 480 240 HEPARIN INFUSION - 25,000 240 480 240 units In 500 ml @ 1,000 UNITS/HR 20 mls/hr IVPB TITR ALONDRA Rx#:[id number] TPA 80 Oral 50 840 0 Output: Urine 530 2000 300 Void 530 2000 300 Other: Voiding Method Urinal Urinal # Unmeasured Voids Void 1 Bowel Movement No Yes: large, soft No # Bowel Movements 1 Body Mass Index (BMI) 25.3 PE: NAD RRR S1 S2 faint bibasilar crackles extremity and facial edema essentially resolved No LE edema 05/04/18 05/04/18 05:30 05:30 WBC 6.0 RBC 3.80 L Hgb 11.6 L Hct 34.7 L MCV 91.3 MCHC 33.5 RDW 14.7 Plt Count 103 L D Neutrophils % 59.8 Lymphocytes % 25.9 D Monocytes % 11.5 H Eosinophils % 2.2 Basophils % 0.6 Sodium 134 L Potassium 4.3 Chloride 98 Carbon Dioxide 28 Anion Gap 8 BUN 14 Creatinine 0.8 04/09/18 08:30 Blood Culture - Final Blood - Peripheral Venous NO GROWTH AFTER 5 DAYS INCUBATION 04/09/18 08:20 Blood Culture - Final Blood - Peripheral Venous NO GROWTH AFTER 5 DAYS INCUBATION 04/09/18 10:20 Gram Stain - Final Sputum - Expectorated Sputum Culture - Final Citrobacter Koseri 04/09/18 10:20 Urine Culture - Final Urine - Urine Clean Catch NO GROWTH OBTAINED A/P: 62 yo male with PMHx of COPD, paroxysmal atrial fibrillation on eliquis, known lung mass 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 Squamous Cell CA SVC Syndrome due to Lung Mass s/p SVC stent Paroxysmal Atrial Fibrillation on eliquis COPD Emphysema Hemoptysis Smoker Suspect failed eliquis treatment s/p SVC stent and catheter directed TPA/heparin would consider Lovenox for outpatient anticoagulation continue heparin gtt for now trend coags Trend platelets concurrent RT and chemo to start once discharge or will start as inpatient if patient will be here for a prolonged period of time radiation oncology consult update noted Patient may need simulation CT if will be hospitalized for prolonged period of time Will need outpatient PET CT to complete staging Will follow
--- NOTE | 2018-05-04 12:05 | PN ---
Progress Note, Physician History of Present Illness: Episodes of PAF, underwent thrombolysis and stent placement without sequelae. Facial and RUE swelling resolved. - Current Medication List Current Medications: Active Medications Acetaminophen (Tylenol -) 650 mg PO Q6H PRN PRN Reason: PAIN OR FEVER Last Admin: 05/04/18 10:08 Dose: 650 mg Diltiazem HCl (Cardizem Cd -) 180 mg PO DAILY [facility] Last Admin: 05/04/18 10:01 Dose: 180 mg Docusate Sodium (Colace -) 100 mg PO BID [facility] Last Admin: 05/04/18 10:01 Dose: 100 mg Enoxaparin Sodium (Lovenox -) 90 mg SQ BID [facility] Oxycodone HCl (Roxicodone -) 10 mg PO Q6H PRN PRN Reason: PAIN LEVEL 7 - 10 Last Admin: 05/04/18 10:00 Dose: 10 mg Oxycodone HCl (Roxicodone -) 5 mg PO Q6H PRN PRN Reason: PAIN LEVEL 4 - 6 Sotalol HCl (Betapace -) 80 mg PO BID [facility] Last Admin: 05/04/18 10:01 Dose: 80 mg Tiotropium [place] (Spiriva Respimat) 2 puff IH DAILY [facility] Last Admin: 05/04/18 10:30 Dose: 2 puff - Objective Vital Signs: Vital Signs Temperature 98.1 F 05/04/18 10:00 Pulse Rate 79 05/04/18 10:00 Respiratory Rate 14 05/04/18 10:00 Blood Pressure 100/56 L 05/04/18 10:00 O2 Sat by Pulse Oximetry (%) 93 L 05/03/18 22:00 Constitutional: Yes: No Distress, Calm Neck: Yes: Supple Cardiovascular: Yes: Regular Rate and Rhythm Respiratory: Yes: Regular, CTA Bilaterally Gastrointestinal: Yes: Normal Bowel Sounds, Soft Edema: No Labs: CBC, BMP 05/04/18 05:30 05/04/18 05:30 INR, PTT INR 1.18 (0.83-1.09) H 04/30/18 06:55 Fibrinogen > 500.0 mg/dL (238-498) H 04/10/18 13:15 - ....Imaging EKG: Report Reviewed (Tele: PAF->SR) Problem List - Problems (1) COPD (chronic obstructive pulmonary disease) Code(s): J44.9 - CHRONIC OBSTRUCTIVE PULMONARY DISEASE, UNSPECIFIED Qualifiers: COPD type: unspecified COPD Qualified Code(s): J44.9 - Chronic obstructive pulmonary disease, unspecified (2) Dyspnea Code(s): R06.00 - DYSPNEA, UNSPECIFIED Qualifiers: Dyspnea type: dyspnea on exertion Qualified Code(s): R06.09 - Other forms of dyspnea (3) Hemoptysis Code(s): R04.2 - HEMOPTYSIS (4) Lung mass Code(s): R91.8 - OTHER NONSPECIFIC ABNORMAL FINDING OF LUNG FIELD (5) Paroxysmal atrial fibrillation Code(s): I48.0 - PAROXYSMAL ATRIAL FIBRILLATION (6) SVC syndrome Code(s): I87.1 - COMPRESSION OF VEIN (7) Smoker Code(s): F17.200 - NICOTINE DEPENDENCE, UNSPECIFIED, UNCOMPLICATED (8) Anticoagulant long-term use Code(s): Z79.01 - [facility] (CURRENT) USE OF 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 (9) DVT (deep venous thrombosis) Code(s): I82.409 - ACUTE EMBOLISM AND THOMBOS UNSP DEEP VN UNSP LOWER EXTREMITY Qualifiers: DVT location: upper extremity Affected thrombotic vein of extremity: other upper extremity vein Chronicity: acute Laterality: right Qualified Code(s) : I82.621 - Acute embolism and thrombosis of deep veins of right upper extremity Assessment/Plan 02/22/2018 Holter Monitor: SR with paroxysmal afib/flutter with aberrant conduction (RBBB morphology) 5.44% of time, frequent PAC, PVC 12/22/2017 Large irregular cavitary soft tissue mass involving right superior mediastinum in right to mid and superior hilar region suspicious for primary or secondary malignancy 04/07/2018 Large central RUL mass with invasion of mediastinum and adjacent consolidation/ATX RUL, distal SVC stenosis without obstruction with collateralization 03/11/2018 Echo: Normal LV and RV size and fxn with abnl LV compliance, mildly dilated ascending aorta, mild MR, TR. tr IL 03/29/2018 ETT Myoview: Negative maximal stress test for ischemia, LVEF 60% 04/14/2018 Brain MRI: No metastases 1. SVC Syndrome with SVC thrombus post thrombectomy, thrombolysis and stent placement 2. 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 COPD/Emphysema 4. Palpitations, Paroxysmal Atrial Fibrillation->SR [id number] on anticoagulation 5. Diastolic LV dysfunction with class 0 NYHA classification LV failure 6. HTN/HCVD 7. Hep C post-treatment 8. Smoker Plan: 1. Maintained on full-dose Lovenox 2. Combined RT/chemotherapy, PET scanning per oncology 3. Continue sotalol 80 bid, cardizem CD 180 qd 4. Inhaled bronchodilators, O2 as needed, smoking cessation
--- NOTE | 2018-05-04 12:06 | EKG ---
Test Reason : Blood Pressure : / mmHG Vent. Rate : 089 BPM Atrial Rate : 089 BPM P-R Int : 174 ms QRS Dur : 080 ms QT Int : 368 ms P-R-T Axes : 053 -01 043 degrees QTc Int : 447 ms SINUS RHYTHM WITH PREMATURE SUPRAVENTRICULAR COMPLEXES AND WITH FREQUENT PREMATURE VENTRICULAR COMPLEXES OTHERWISE NORMAL ECG WHEN COMPARED WITH ECG OF 03-MAY-2018 09:13, SINUS RHYTHM HAS REPLACED ATRIAL FIBRILLATION Confirmed by VIPIN BENITEZ, DILIA ([id number]) on 05/04/2018 12:06:20 PM Referred By: Sonja GRACIA Confirmed By:DILIA LEW MD
--- NOTE | 2018-05-04 12:57 | PN ---
Teaching Attending Note Name of Resident: David Mariee ATTENDING PHYSICIAN STATEMENT I saw and evaluated the patient. I reviewed the resident's note and discussed the case with the resident. I agree with the resident's findings and plan as documented. SUBJECTIVE: Pt seen and examined in the ICU. No bleeding overnight. Intermittent chest discomfort but not increased from before. OBJECTIVE: Vital Signs Period Temp Pulse Resp BP Sys/Gtz Pulse Ox Last 24 Hr 97.2 F-98.1 F 71-112 14-23 80-107/51-75 92-99 Intake & Output 05/01/18 05/02/18 05/03/18 05/04/18 23:59 23:59 23:59 23:59 Intake Total 1818 232 1116 240 Output Total 1076 255 3116 300 Balance 180 310 -840 -60 Gen: NAD at rest Heart: RRR Lung: decreased breath sounds at the bases Abd: soft, nontender Ext: no edema CBC, BMP 05/04/18 05:30 05/04/18 05:30 Active Medications Acetaminophen (Tylenol -) 650 mg PO Q6H PRN PRN Reason: PAIN OR FEVER Last Admin: 05/04/18 10:08 Dose: 650 mg Diltiazem HCl (Cardizem Cd -) 180 mg PO DAILY [facility] Last Admin: 05/04/18 10:01 Dose: 180 mg Docusate Sodium (Colace -) 100 mg PO BID [facility] Last Admin: 05/04/18 10:01 Dose: 100 mg Enoxaparin Sodium (Lovenox -) 90 mg SQ BID [facility] Oxycodone HCl (Roxicodone -) 10 mg PO Q6H PRN PRN Reason: PAIN LEVEL 7 - 10 Last Admin: 05/04/18 10:00 Dose: 10 mg Oxycodone HCl (Roxicodone -) 5 mg PO Q6H PRN PRN Reason: PAIN LEVEL 4 - 6 Sotalol HCl (Betapace -) 80 mg PO BID [facility] Last Admin: 05/04/18 10:01 Dose: 80 mg Tiotropium [place] (Spiriva Respimat) 2 puff IH DAILY [facility] Last Admin: 05/04/18 10:30 Dose: 2 puff ASSESSMENT AND PLAN: Newly Diagnosed Lung Cancer SVC Syndrome s/p SVC stent COPD Emphysema Hemoptysis Paroxysmal Atrial Fibrillation on anticoagulation Smoker Suspected RLL atelectasis - s/p SVC stent placement - incentive spirometry - rate control - inhaled bronchodilators - chemo/RT post SVC stent placement Problem List - Problems (1) SVC syndrome Code(s): I87.1 - COMPRESSION OF VEIN (2) COPD (chronic obstructive pulmonary disease) Code(s): J44.9 - CHRONIC OBSTRUCTIVE PULMONARY DISEASE, UNSPECIFIED Qualifiers: COPD type: unspecified COPD Qualified Code(s): J44.9 - Chronic obstructive pulmonary disease, unspecified (3) Hemoptysis Code(s): R04.2 - HEMOPTYSIS (4) Smoker Code(s): F17.200 - NICOTINE DEPENDENCE, UNSPECIFIED, UNCOMPLICATED (5) Paroxysmal atrial fibrillation Code(s): I48.0 - PAROXYSMAL ATRIAL FIBRILLATION
--- NOTE | 2018-05-04 13:39 | PN ---
Physical Exam: SUBJECTIVE: Patient seen and examined in the ICU. pt comfortable, passing flatus and tolerating PO. No bleeding overnight. denies cp, sob, n/v/d, neuro deficits, swelling. OBJECTIVE: Vital Signs Period Temp Pulse Resp BP Sys/Gtz Pulse Ox Last 24 Hr 97.2 F-98.1 F 71-112 14-23 80-107/51-75 92-99 GENERAL: AAOx3, NAD HEAD: NCAT EYES: PERRLA, EOMI, sclera anicteric, conjunctiva clear. No lid lag. EARS, NOSE, THROAT: MMM. NECK: Normal range of motion, supple with no LAD LUNGS: CTAB HEART: RRR, normal S1 and S2 without murmur, rub or gallop. ABDOMEN: Soft, NTND,+BS, no guarding, no rebound, no masses. R groin bandage c/d UPPER EXTREMITIES: 2+ pulses, warm, well-perfused. No cyanosis. +clubbing. no edema LOWER EXTREMITIES: 2+ pulses, warm, well-perfused. No calf tenderness. No peripheral edema. NEUROLOGICAL: no focal deficits. PSYCHIATRIC: Appropriate mood and affect. Laboratory Results - last 24 hr 05/04/18 05/04/18 05/04/18 05:30 05:30 05:30 WBC 6.0 RBC 3.80 L Hgb 11.6 L Hct 34.7 L MCV 91.3 MCH 30.6 MCHC 33.5 RDW 14.7 Plt Count 103 L D MPV 6.9 L Absolute Neuts (auto) 3.6 Neutrophils % 59.8 Lymphocytes % 25.9 D Monocytes % 11.5 H Eosinophils % 2.2 Basophils % 0.6 Nucleated RBC % 0 PTT (Actin FS) 62.7 H Sodium 134 L Potassium 4.3 Chloride 98 Carbon Dioxide 28 Anion Gap 8 BUN 14 Creatinine 0.8 Creat Clearance w eGFR > 60 Random Glucose 101 Calcium 10.3 H Total Bilirubin 0.6 AST 11 L ALT 21 Alkaline Phosphatase 55 Total Protein 6.8 Albumin 2.9 L Active Medications Generic Name Dose Route Start Last Admin Trade Name Freq PRN Reason Stop Dose Admin Acetaminophen 650 mg 04/09/18 12:59 05/04/18 10:08 Tylenol - PO 650 mg Q6H PRN Administration PAIN OR FEVER Diltiazem HCl 180 mg 04/10/18 10:00 05/04/18 10:01 Cardizem Cd - PO 180 mg DAILY [facility]ONDRA Administration Docusate Sodium 100 mg 05/03/18 22:00 05/04/18 10:01 Colace - PO 100 mg BID [facility]ON[facility]A Administration Enoxaparin Sodium 90 mg 05/04/18 13:00 Lovenox - SQ BID [facility] Oxycodone HCl 10 mg 05/03/18 16:45 05/04/18 10:00 Roxicodone - PO 10 mg Q6H PRN Administration PAIN LEVEL 7 - 10 Oxycodone HCl 5 mg 05/03/18 16:45 Roxicodone - PO Q6H PRN PAIN LEVEL 4 - 6 Sotalol HCl 80 mg 04/08/18 19:00 05/04/18 10:01 Betapace - PO 80 mg BID ALONDRA Administration Tiotropium [place] 2 puff 04/08/18 10:00 05/04/18 10:30 Spiriva Respimat IH 2 puff DAILY [facility]A Administration ASSESSMENT/PLAN: 62 yo M with PMH of cigarette smoking, COPD, Emphysema, HTN,Hep C post-treatment , Diastolic LV dysfunction with class 0 NYHA classification LV failure, recently diagnosed paroxysmal atrial fibrillation in 02/2018 (on Eliquis) and now found during this hospitalization w/ SVC syndrome 2/2 poorly differentiated squamous carcinoma of lung. POD 2 for SVC stent placement w/ Alteplase tx. vessels are patent. pt will be transferred to [facility] for further monitoring Neuro Intact, AOx3, no neuro deficits Cardio #SVC s/p Stent POD 2 groin checks, c/d/i Maintain MAP >65 vessels are patent #A-fib HR ctl w/ sotalol 80 bid, cardizem CD 180 qd cardiac monitoring daily EKG, monitor Qtc dc Heparin gtt, start lovenox 90 bid cardio following monitor H/H, 11.7...12.4 #HTN bp is ctl Pulm #SVC syndrome 2/2 poorly differentiated squamous carcinoma of lung s/p Stent POD 1 incentive spirometer maintain O2 sat >90% dc Heparin gtt/alteplase, start lovenox 90 bid pain ctl Alteplase concurrent RT and chemo after stent per radiation oncology #COPD, Emphysema Inhaled bronchodilators spiriva pre/post test FEN no IVF at this time replete lytes prn low sodium diet ppx dc Heparin gtt/alteplase, start lovenox 90 bid Heme following Dispo: vessels are patent pre/post test prior to dc pt is stable and can be transferred to tele for further monitoring. Further care per primary team/PCP Visit type - Emergency Visit Emergency Visit: Yes ED Registration Date: 04/07/18 Care time: The patient presented to the Emergency Department on the above date and was hospitalized for further evaluation of their emergent condition. - New Patient This patient is new to me today: Yes Date on this admission: 05/04/18 - Critical Care Critical Care patient: Yes Total Critical Care Time (in minutes): 37 Critical Care Statement: The care of this patient involved high complexity decision making to prevent further life threatening deterioration of the patient 's condition and/or to evaluate & treat vital organ system(s) failure or risk of failure.
[2018-05-04] MEDS: ENOXAPARIN NA (PORCINE) 100 MG/1 ML DISP.SYRIN SQ SCH ×2 (15:50→22:50)
--- NOTE | 2018-05-04 19:47 | PN ---
Teaching Attending Note Name of Resident: Logan Espino ATTENDING PHYSICIAN STATEMENT I saw and evaluated the patient. I reviewed the resident's note and discussed the case with the resident. I agree with the resident's findings and plan as documented. SUBJECTIVE: Patient sen and examined s/p stent Off heparin Last Vital Signs Temp Pulse Resp BP Pulse Ox 98.3 F 42 L 18 91/52 L 92 L 05/04/18 14:00 05/04/18 17:38 05/04/18 17:38 05/04/18 17:38 05/04/18 10:00 HEENT: ROSARIO, EOM Intact Oropharynx: No thrush, No mucositis Cor: RSR, No murmurs, No gallops Lungs: diminished breath sounds Abd: Soft, Normal bowel sounds, No organomegaly Ext:No significant LE edema Skin: No rashes, Integument intact CBC, BMP 05/04/18 05:30 05/04/18 05:30 Current Medications Generic Name Dose Route Start Last Admin Trade Name Freq PRN Reason Stop Dose Admin Acetaminophen 650 mg 04/09/18 12:59 05/04/18 10:08 Tylenol - PO 650 mg Q6H PRN Administration PAIN OR FEVER Diltiazem HCl 180 mg 04/10/18 10:00 05/04/18 10:01 Cardizem Cd - PO 180 mg DAILY [facility] Administration Docusate Sodium 100 mg 05/03/18 22:00 05/04/18 10:01 Colace - PO 100 mg BID [facility]A Administration Enoxaparin Sodium 90 mg 05/04/18 13:00 05/04/18 15:50 Lovenox - SQ 90 mg BID [facility]ON[facility] Administration Oxycodone HCl 10 mg 05/03/18 16:45 05/04/18 10:00 Roxicodone - PO 10 mg Q6H PRN Administration PAIN LEVEL 7 - 10 Oxycodone HCl 5 mg 05/03/18 16:45 Roxicodone - PO Q6H PRN PAIN LEVEL 4 - 6 Sotalol HCl 80 mg 04/08/18 19:00 05/04/18 10:01 Betapace - PO 80 mg BID [facility]A Administration Tiotropium [place] 2 puff 04/08/18 10:00 05/04/18 10:30 Spiriva Respimat IH 2 puff DAILY [facility] Administration OBJECTIVE:Impr SCC ca S/PStent for SVC Spoke with Dr. Coronado re : possible port placement for chemotherpay- discouraged same. Will need to speak to RT . ASSESSMENT AND PLAN:
--- NOTE | 2018-05-05 07:46 | PN ---
Progress Note, Physician - Current Medication List Current Medications: Active Medications Acetaminophen (Tylenol -) 650 mg PO Q6H PRN PRN Reason: PAIN OR FEVER Last Admin: 05/04/18 10:08 Dose: 650 mg Diltiazem HCl (Cardizem Cd -) 180 mg PO DAILY [facility] Last Admin: 05/04/18 10:01 Dose: 180 mg Docusate Sodium (Colace -) 100 mg PO BID [facility] Last Admin: 05/04/18 22:14 Dose: 100 mg Enoxaparin [place] (Lovenox -) 90 mg SQ BID [facility] Last Admin: 05/04/18 22:50 Dose: 90 mg Oxycodone HCl (Roxicodone -) 10 mg PO Q6H PRN PRN Reason: PAIN LEVEL 7 - 10 Last Admin: 05/04/18 22:14 Dose: 10 mg Oxycodone HCl (Roxicodone -) 5 mg PO Q6H PRN PRN Reason: PAIN LEVEL 4 - 6 Last Admin: 05/05/18 04:51 Dose: 5 mg Sotalol HCl (Betapace -) 80 mg PO BID [facility] Last Admin: 05/04/18 22:14 Dose: 80 mg Tiotropium [place] (Spiriva Respimat) 2 puff IH DAILY [facility] Last Admin: 05/04/18 10:30 Dose: 2 puff - Objective Vital Signs: Vital Signs Temperature 98.4 F 05/05/18 06:00 Pulse Rate 71 05/05/18 06:00 Respiratory Rate 14 05/05/18 06:00 Blood Pressure 86/64 L 05/05/18 06:00 O2 Sat by Pulse Oximetry (%) 92 L 05/04/18 21:48 Cardiovascular: Yes: S1, S2 Respiratory: Yes: Regular, CTA Bilaterally Gastrointestinal: Yes: Normal Bowel Sounds, Soft Labs: CBC, BMP 05/04/18 05:30 05/04/18 05:30 INR, PTT INR 1.18 (0.83-1.09) H 04/30/18 06:55 Fibrinogen > 500.0 mg/dL (238-498) H 04/10/18 13:15 Problem List - Problems (1) Lung cancer Code(s): C34.90 - MALIGNANT NEOPLASM OF UNSP PART OF UNSP BRONCHUS OR LUNG (2) Dyspnea Code(s): R06.00 - DYSPNEA, UNSPECIFIED Qualifiers: Dyspnea type: dyspnea on exertion Qualified Code(s): R06.09 - Other forms of dyspnea (3) Afib Code(s): I48.91 - UNSPECIFIED ATRIAL FIBRILLATION (4) COPD (chronic obstructive pulmonary disease) Code(s): J44.9 - CHRONIC OBSTRUCTIVE PULMONARY DISEASE, UNSPECIFIED Qualifiers: COPD type: unspecified COPD Qualified Code(s): J44.9 - Chronic obstructive pulmonary disease, unspecified (5) SVC syndrome Code(s): I87.1 - COMPRESSION OF VEIN Assessment/Plan - Problems (1) Afib Assessment/Plan: -Tele monitoring -Cardiology on board -On heparin drip -On CCB and BB Code(s): I48.91 - UNSPECIFIED ATRIAL FIBRILLATION (2) Lung cancer Assessment/Plan: Oncology and pulmonary on board Code(s): C34.90 - MALIGNANT NEOPLASM OF UNSP PART OF UNSP BRONCHUS OR LUNG (3) SVC syndrome Assessment/Plan: -Seen by IR -Heparin drip -Thrombectomy and SVC stent DONE -Would need Lovenox outpatient for anticoagulation due to failure to Eliquis Code(s): I87.1 - COMPRESSION OF VEIN (4) Guaiac positive stools Assessment/Plan: -GI consult -monitor H/H -labs in AM -Likely no intervention at this time. Code(s): R19.5 - OTHER FECAL ABNORMALITIES (5) Dyspnea Assessment/Plan: -improved -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 -oncology and RT on board outpatient chemo and RT Code(s): R06.00 - DYSPNEA, UNSPECIFIED Qualifiers: Dyspnea type: dyspnea on exertion Qualified Code(s): R06.09 - Other forms of dyspnea will d/w oncology regading dc
[2018-05-05 09:15] LABS: BASO % 0.7 % (0-2.0); EOS % 3.7 % (0-4.5); HEMATOCRIT 35.3 % (35.4-49); HEMOGLOBIN 11.6 GM/dL (11.7-16.9); LYMPH % 24.9 % (8-40); MCH 30.2 pg (25.7-33.7); MCHC 32.8 g/dl (32.0-35.9); MEAN PLT VOLUME 7.3 fl (7.5-11.1); NEUT % 58.7 % (42.8-82.8); PLATELET COUNT 113 K/MM3 (134-434); RBC 3.84 M/mm3 (4.00-5.60); RDW 14.9 % (11.9-15.9); WHITE BLOOD COUNT 4.6 K/mm3 (4.0-10.0)
[2018-05-05 09:29] LABS: ALK PHOS 53 U/L (45-117); ANION GAP 10 MMOL/L (8-16); BILIRUBIN,TOTAL 0.4 mg/dL (0.2-1); BLOOD UREA NITROGEN 13 mg/dL (7-18); CALCIUM 10.6 mg/dL (8.5-10.1); CHLORIDE 101 mmol/L (98-107); CO2 27 mmol/L (21-32); CREATININE 0.9 mg/dL (0.55-1.3); GLUCOSE,RANDOM 95 mg/dL (74-106); MAGNESIUM 2.2 mg/dL (1.8-2.4); PHOSPHOROUS 3.3 mg/dL (2.5-4.9); POTASSIUM 4.4 mmol/L (3.5-5.1); SGOT/AST 11 U/L (15-37); SGPT/ALT 21 U/L (13-61); SODIUM 138 mmol/L (136-145)
[2018-05-05] MEDS: SOTALOL HCL 80 MG TABLET (FP) PO SCH ×2 (09:50→21:59)
[2018-05-05] MEDS ORDERED: PT OWN MED DRAWER 7, Y5N ONE (09:50)
[2018-05-05] MEDS: DOCUSATE SODIUM 100 MG CAPSULE (FP) PO SCH ×2 (09:50→21:59)
[2018-05-05] MEDS: ENOXAPARIN NA (PORCINE) 100 MG/1 ML DISP.SYRIN SQ SCH ×2 (09:51→21:59)
[2018-05-05] MEDS: TIOTROPIUM BROMIDE 2.5 MCG (SPIRIVA) RESPIMAT INHALER IH SCH (09:51)
--- NOTE | 2018-05-05 10:12 | PN ---
Progress Note (short form) - Note Progress Note: Radiation Oncology SVC syndrome stabilized s/p SVC stent, post procedure monitoring in ICU. Mildly hypotensive. Right neck/arm swelling improved. MRI brain/BS neg for mets. Plts up to 113k Impression: Locally advanced RUL NSCLC associated w SVC compression s/p stent. Clinically stable w stent. Pt wants to go home, ok to start outpatient RT. B/A/R discussed, pt agrees. Outpatient PET-CT to complete staging. If prolonged hospitalization is needed for further medical stabilization, would proceed w CT simulation before discharge. Concurrent chemo d/w Dr. Hathaway, port is contraindicated per IR. Will plan for outpt PICC placement followed by Taxol. Cont anticoagulation. Monitor CBC for thrombocytopenia. Cardiology f/u.
[2018-05-05] MEDS: ACETAMINOPHEN 325 MG TABLET (FP) PO PRN (11:22)
[2018-05-05] MEDS: oxyCODONE HCL 5 MG TABLET PO PRN (11:22)
--- NOTE | 2018-05-05 11:52 | PN ---
Physical Exam: SUBJECTIVE: Patient seen and examined in the ICU. pt comfortable, passing flatus and tolerating PO. No bleeding overnight. denies cp, sob, n/v/d, neuro deficits, swelling. OBJECTIVE: Vital Signs Period Temp Pulse Resp BP Sys/Gtz Pulse Ox Last 24 Hr 98.1 F-99.5 F 42-95 14-24 80-99/48-80 92-98 GENERAL: AAOx3, NAD HEAD: NCAT EYES: PERRLA, EOMI, sclera anicteric, conjunctiva clear. No lid lag. EARS, NOSE, THROAT: MMM. NECK: Normal range of motion, supple with no LAD LUNGS: CTAB HEART: RRR, normal S1 and S2 without murmur, rub or gallop. ABDOMEN: Soft, NTND,+BS, no guarding, no rebound, no masses. R groin bandage c/d UPPER EXTREMITIES: 2+ pulses, warm, well-perfused. No cyanosis. +clubbing. no edema LOWER EXTREMITIES: 2+ pulses, warm, well-perfused. No calf tenderness. No peripheral edema. NEUROLOGICAL: no focal deficits. PSYCHIATRIC: Appropriate mood and affect. Laboratory Results - last 24 hr 05/05/18 05/05/18 08:20 08:30 WBC 4.6 RBC 3.84 L Hgb 11.6 L Hct 35.3 L MCV 92.0 MCH 30.2 MCHC 32.8 RDW 14.9 Plt Count 113 L MPV 7.3 L Absolute Neuts (auto) 2.7 Neutrophils % 58.7 Lymphocytes % 24.9 Monocytes % 12.0 H Eosinophils % 3.7 Basophils % 0.7 Nucleated RBC % 0 Sodium 138 Potassium 4.4 Chloride 101 Carbon Dioxide 27 Anion Gap 10 BUN 13 Creatinine 0.9 Creat Clearance w eGFR > 60 Random Glucose 95 Calcium 10.6 H Phosphorus 3.3 Magnesium 2.2 Total Bilirubin 0.4 AST 11 L ALT 21 Alkaline Phosphatase 53 Total Protein 7.0 Albumin 3.0 L Active Medications Generic Name Dose Route Start Last Admin Trade Name Freq PRN Reason Stop Dose Admin Acetaminophen 650 mg 04/09/18 12:59 05/05/18 11:22 Tylenol - PO 650 mg Q6H PRN Administration PAIN OR FEVER Diltiazem HCl 180 mg 04/10/18 10:00 05/05/18 09:50 Cardizem Cd - PO 180 mg DAILY ALONDRA Administration Docusate Sodium 100 mg 05/03/18 22:00 05/05/18 09:50 Colace - PO 100 mg BID ALONDRA Administration Enoxaparin Sodium 90 mg 05/04/18 13:00 05/05/18 09:51 Lovenox - SQ 90 mg BID ALONDRA Administration Oxycodone HCl 10 mg 05/03/18 16:45 05/05/18 11:22 Roxicodone - PO 10 mg Q6H PRN Administration PAIN LEVEL 7 - 10 Oxycodone HCl 5 mg 05/03/18 16:45 05/05/18 04:51 Roxicodone - PO 5 mg Q6H PRN Administration PAIN LEVEL 4 - 6 Sotalol HCl 80 mg 04/08/18 19:00 05/05/18 09:50 Betapace - PO 80 mg BID ALONDRA Administration Tiotropium [place] 2 puff 04/08/18 10:00 05/05/18 09:51 Spiriva Respimat IH 2 puff DAILY ALONDRA Administration ASSESSMENT/PLAN: 62 yo M with PMH of cigarette smoking, COPD, Emphysema, HTN,Hep C post-treatment , Diastolic LV dysfunction with class 0 NYHA classification LV failure, recently diagnosed paroxysmal atrial fibrillation in 02/2018 (on Eliquis) and now found during this hospitalization w/ SVC syndrome 2/2 poorly differentiated squamous carcinoma of lung. POD 3 for SVC stent placement w/ Alteplase tx. vessels are patent. pt will be transferred to [facility] for further monitoring Neuro Intact, AOx3, no neuro deficits Cardio #SVC s/p Stent POD 3 groin checks, c/d/i Maintain MAP >65 vessels are patent #A-fib HR ctl w/ sotalol 80 bid, cardizem CD 180 qd cardiac monitoring daily EKG, monitor Qtc dc Heparin gtt, c/w lovenox 90 bid cardio following monitor H/H, 11.7...12.4...11.6 #HTN bp is ctl Pulm #SVC syndrome 2/2 poorly differentiated squamous carcinoma of lung s/p Stent POD 3 incentive spirometer maintain O2 sat >90% dc Heparin gtt/alteplase, c/w lovenox 90 bid pain ctl concurrent RT and chemo after stent per radiation oncology #COPD, Emphysema Inhaled bronchodilators spiriva pre/post test FEN no IVF at this time replete lytes prn low sodium diet ppx dc Heparin gtt/alteplase, c/w lovenox 90 bid Heme following Dispo: vessels are patent pre/post test prior to dc pt is stable and can be transferred to [facility] for further monitoring. Further care per primary team/PCP Visit type - Emergency Visit Emergency Visit: Yes ED Registration Date: 04/07/18 Care time: The patient presented to the Emergency Department on the above date and was hospitalized for further evaluation of their emergent condition. - New Patient This patient is new to me today: Yes Date on this admission: 05/05/18 - Critical Care Critical Care patient: Yes Total Critical Care Time (in minutes): 35 Critical Care Statement: The care of this patient involved high complexity decision making to prevent further life threatening deterioration of the patient 's condition and/or to evaluate & treat vital organ system(s) failure or risk of failure.
--- NOTE | 2018-05-05 12:09 | PN ---
Progress Note, Physician History of Present Illness: Episodes of PAF, underwent thrombolysis and stent placement without sequelae. Facial and RUE swelling resolved. - Current Medication List Current Medications: Active Medications Acetaminophen (Tylenol -) 650 mg PO Q6H PRN PRN Reason: PAIN OR FEVER Last Admin: 05/05/18 11:22 Dose: 650 mg Diltiazem HCl (Cardizem Cd -) 180 mg PO DAILY [facility] Last Admin: 05/05/18 09:50 Dose: 180 mg Docusate Sodium (Colace -) 100 mg PO BID [facility] Last Admin: 05/05/18 09:50 Dose: 100 mg Enoxaparin Sodium (Lovenox -) 90 mg SQ BID [facility] Last Admin: 05/05/18 09:51 Dose: 90 mg Oxycodone HCl (Roxicodone -) 10 mg PO Q6H PRN PRN Reason: PAIN LEVEL 7 - 10 Last Admin: 05/05/18 11:22 Dose: 10 mg Oxycodone HCl (Roxicodone -) 5 mg PO Q6H PRN PRN Reason: PAIN LEVEL 4 - 6 Last Admin: 05/05/18 04:51 Dose: 5 mg Sotalol HCl (Betapace -) 80 mg PO BID [facility] Last Admin: 05/05/18 09:50 Dose: 80 mg Tiotropium [place] (Spiriva Respimat) 2 puff IH DAILY [facility] Last Admin: 05/05/18 09:51 Dose: 2 puff - Objective Vital Signs: Vital Signs Temperature 98.1 F 05/05/18 10:00 Pulse Rate 86 05/05/18 12:00 Respiratory Rate 16 05/05/18 12:00 Blood Pressure 89/64 L 05/05/18 12:00 O2 Sat by Pulse Oximetry (%) 98 05/05/18 10:00 Constitutional: Yes: No Distress, Calm Neck: Yes: Supple Cardiovascular: Yes: Regular Rate and Rhythm Respiratory: Yes: Regular, Diminished Gastrointestinal: Yes: Normal Bowel Sounds, Soft Edema: No Labs: CBC, BMP 05/05/18 08:30 05/05/18 08:20 INR, PTT INR 1.18 (0.83-1.09) H 04/30/18 06:55 Fibrinogen > 500.0 mg/dL (238-498) H 04/10/18 13:15 - ....Imaging EKG: Report Reviewed (Tele: PAF->SR) Problem List - Problems (1) COPD (chronic obstructive pulmonary disease) Code(s): J44.9 - CHRONIC OBSTRUCTIVE PULMONARY DISEASE, UNSPECIFIED Qualifiers: COPD type: unspecified COPD Qualified Code(s): J44.9 - Chronic obstructive pulmonary disease, unspecified (2) Dyspnea Code(s): R06.00 - DYSPNEA, UNSPECIFIED Qualifiers: Dyspnea type: dyspnea on exertion Qualified Code(s): R06.09 - Other forms of dyspnea (3) Hemoptysis Code(s): R04.2 - HEMOPTYSIS (4) Lung mass Code(s): R91.8 - OTHER NONSPECIFIC ABNORMAL FINDING OF LUNG FIELD (5) Paroxysmal atrial fibrillation Code(s): I48.0 - PAROXYSMAL ATRIAL FIBRILLATION (6) SVC syndrome Code(s): I87.1 - COMPRESSION OF VEIN (7) Smoker Code(s): F17.200 - NICOTINE DEPENDENCE, UNSPECIFIED, UNCOMPLICATED (8) Anticoagulant long-term use Code(s): Z79.01 - LANGUAGE THERAPIST (CURRENT) USE OF 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 (9) DVT (deep venous thrombosis) Code(s): I82.409 - ACUTE EMBOLISM AND THOMBOS UNSP DEEP VN UNSP LOWER EXTREMITY Qualifiers: DVT location: upper extremity Affected thrombotic vein of extremity: other upper extremity vein Chronicity: acute Laterality: right Qualified Code(s) : I82.621 - Acute embolism and thrombosis of deep veins of right upper extremity Assessment/Plan 02/22/2018 Holter Monitor: SR with paroxysmal afib/flutter with aberrant conduction (RBBB morphology) 5.44% of time, frequent PAC, PVC 12/22/2017 Large irregular cavitary soft tissue mass involving right superior mediastinum in right to mid and superior hilar region suspicious for primary or secondary malignancy 04/07/2018 Large central RUL mass with invasion of mediastinum and adjacent consolidation/ATX RUL, distal SVC stenosis without obstruction with collateralization 03/11/2018 Echo: Normal LV and RV size and fxn with abnl LV compliance, mildly dilated ascending aorta, mild MR, TR. tr CT 03/29/2018 ETT Myoview: Negative maximal stress test for ischemia, LVEF 60% 04/14/2018 Brain MRI: No metastases 1. SVC Syndrome with SVC thrombus post thrombectomy, thrombolysis and stent placement 2. 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 COPD/Emphysema 4. Palpitations, Paroxysmal Atrial Fibrillation->SR [id number] on anticoagulation 5. Diastolic LV dysfunction with class 0 NYHA classification LV failure 6. HTN/HCVD 7. Hep C post-treatment 8. Smoker Plan: 1. Maintained on full-dose Lovenox 90 bid 2. Combined RT/chemotherapy via PICC, PET scanning per oncology 3. Continue sotalol 80 bid, cardizem CD 180 qd 4. Inhaled bronchodilators, O2 as needed, smoking cessation 5. D/c planning
--- NOTE | 2018-05-05 12:24 | PN ---
Teaching Attending Note Name of Resident: David Mariee ATTENDING PHYSICIAN STATEMENT I saw and evaluated the patient. I reviewed the resident's note and discussed the case with the resident. I agree with the resident's findings and plan as documented. SUBJECTIVE: Pt seen and examined in the ICU. Wants to go home. Occasional chest discomfort. OBJECTIVE: Vital Signs Period Temp Pulse Resp BP Sys/Gtz Pulse Ox Last 24 Hr 98.1 F-99.5 F 42-95 14-24 82-99/48-80 92-98 Intake & Output 05/02/18 05/03/18 05/04/18 05/05/18 23:59 23:59 23:59 23:59 Intake Total 860 1690 240 Output Total 550 2530 500 Balance 310 -840 -260 Gen: NAD at rest Heart: RRR Lung: decreased breath sounds at the bases Abd: soft, nontender Ext: no edema CBC, BMP 05/05/18 08:30 05/05/18 08:20 Active Medications Acetaminophen (Tylenol -) 650 mg PO Q6H PRN PRN Reason: PAIN OR FEVER Last Admin: 05/05/18 11:22 Dose: 650 mg Diltiazem HCl (Cardizem Cd -) 180 mg PO DAILY [facility] Last Admin: 05/05/18 09:50 Dose: 180 mg Docusate Sodium (Colace -) 100 mg PO BID [facility] Last Admin: 05/05/18 09:50 Dose: 100 mg Enoxaparin Sodium (Lovenox -) 90 mg SQ BID [facility] Last Admin: 05/05/18 09:51 Dose: 90 mg Oxycodone HCl (Roxicodone -) 10 mg PO Q6H PRN PRN Reason: PAIN LEVEL 7 - 10 Last Admin: 05/05/18 11:22 Dose: 10 mg Oxycodone HCl (Roxicodone -) 5 mg PO Q6H PRN PRN Reason: PAIN LEVEL 4 - 6 Last Admin: 05/05/18 04:51 Dose: 5 mg Sotalol HCl (Betapace -) 80 mg PO BID [facility] Last Admin: 05/05/18 09:50 Dose: 80 mg Tiotropium [place] (Spiriva Respimat) 2 puff IH DAILY [facility] Last Admin: 05/05/18 09:51 Dose: 2 puff ASSESSMENT AND PLAN: Newly Diagnosed Lung Cancer SVC Syndrome s/p SVC stent COPD Emphysema Hemoptysis Paroxysmal Atrial Fibrillation on anticoagulation Smoker Suspected RLL atelectasis - s/p SVC stent placement - incentive spirometry - rate control - inhaled bronchodilators - chemo/RT post SVC stent placement - d/c planning Problem List - Problems (1) SVC syndrome Code(s): I87.1 - COMPRESSION OF VEIN (2) COPD (chronic obstructive pulmonary disease) Code(s): J44.9 - CHRONIC OBSTRUCTIVE PULMONARY DISEASE, UNSPECIFIED Qualifiers: COPD type: unspecified COPD Qualified Code(s): J44.9 - Chronic obstructive pulmonary disease, unspecified (3) Hemoptysis Code(s): R04.2 - HEMOPTYSIS (4) Smoker Code(s): F17.200 - NICOTINE DEPENDENCE, UNSPECIFIED, UNCOMPLICATED (5) Paroxysmal atrial fibrillation Code(s): I48.0 - PAROXYSMAL ATRIAL FIBRILLATION
--- NOTE | 2018-05-05 12:45 | PN ---
Progress Note (short form) - Note Progress Note: Patient seen and examined at bedside with daughter and present no complaints s/p SVC stent by IR Feels well Frustrated because he wants to go home today Vital Signs Temp 98.1 F 05/05/18 10:00 Pulse 86 05/05/18 12:00 Resp 16 05/05/18 12:00 BP 89/64 L 05/05/18 12:00 Pulse Ox 98 05/05/18 10:00 Intake & Output 05/04/18 05/05/18 05/05/18 23:59 11:59 23:59 Output Total 200 Balance -200 Output: Urine 200 Void 200 Other: Voiding Method Urinal Urinal # Unmeasured Voids Void 2 PE: NAD RRR S1 S2 faint bibasilar crackles extremity and facial edema essentially resolved No LE edema 05/05/18 05/05/18 08:20 08:30 WBC 4.6 RBC 3.84 L Hgb 11.6 L Hct 35.3 L MCV 92.0 MCHC 32.8 RDW 14.9 Plt Count 113 L Neutrophils % 58.7 Lymphocytes % 24.9 Monocytes % 12.0 H Eosinophils % 3.7 Basophils % 0.7 Sodium 138 Potassium 4.4 Chloride 101 Carbon Dioxide 27 Anion Gap 10 BUN 13 Creatinine 0.9 04/09/18 08:30 Blood Culture - Final Blood - Peripheral Venous NO GROWTH AFTER 5 DAYS INCUBATION 04/09/18 08:20 Blood Culture - Final Blood - Peripheral Venous NO GROWTH AFTER 5 DAYS INCUBATION 04/09/18 10:20 Gram Stain - Final Sputum - Expectorated Sputum Culture - Final Citrobacter Koseri 04/09/18 10:20 Urine Culture - Final Urine - Urine Clean Catch NO GROWTH OBTAINED A/P: 62 yo male with PMHx of COPD, paroxysmal atrial fibrillation on eliquis, known lung mass who 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 Squamous Cell CA SVC Syndrome due to Lung Mass s/p SVC stent Paroxysmal Atrial Fibrillation on eliquis COPD Emphysema Hemoptysis Smoker Suspect failed eliquis treatment s/p SVC stent and catheter directed TPA/heparin on lovenox 90mg subQ BID trend coags Trend platelets Patient can be discharged from heme/onc stand point as long as teaching for lovenox is done (patient states he knows how to do it) and lovenox needs to be delivered to his house. Home O2 will also need to be set up-Spoke with [facility] and patient will have VNS sent to his house Patient will need to follow up with Dr. Thomason/Mag and will need to follow up with Dr. Newton within a week to start concurrent chemo/RT. He will need a PET CT to complete staging and need a PICC line all will be set out as outpatient Will order pre/post No evidence of Metastasis to brain on MRI done 04/14/2018 on this admission Will follow
--- NOTE | 2018-05-05 14:44 | EKG ---
Test Reason : Blood Pressure : / mmHG Vent. Rate : 089 BPM Atrial Rate : 089 BPM P-R Int : 174 ms QRS Dur : 084 ms QT Int : 338 ms P-R-T Axes : 056 061 065 degrees QTc Int : 411 ms SINUS RHYTHM WITH FREQUENT PREMATURE VENTRICULAR COMPLEXES IN A PATTERN OF BIGEMINY OTHERWISE NORMAL ECG WHEN COMPARED WITH ECG OF 04-MAY-2018 09:26, PREMATURE SUPRAVENTRICULAR COMPLEXES ARE NO LONGER PRESENT QUESTIONABLE CHANGE IN QRS AXIS Confirmed by ZHANG ANDRADE MD ([id number]) on 05/05/2018 2:44:04 PM Referred By: Confirmed By:ZHANG ANDRADE MD
[2018-05-05] MEDS ORDERED: ACETAMINOPHEN 325 MG TABLET (FP) PO PRN (16:03)
[2018-05-05] MEDS ORDERED: oxyCODONE HCL 5 MG TABLET PO PRN ×2 (16:03)
[2018-05-06] MEDS: SOTALOL HCL 80 MG TABLET (FP) PO SCH (09:14)
[2018-05-06] MEDS: DOCUSATE SODIUM 100 MG CAPSULE (FP) PO SCH (09:14)
[2018-05-06] MEDS: ENOXAPARIN NA (PORCINE) 100 MG/1 ML DISP.SYRIN SQ SCH (09:15)
[2018-05-06] MEDS ORDERED: TIOTROPIUM BROMIDE 2.5 MCG (SPIRIVA) RESPIMAT INHALER IH SCH (10:00)
--- NOTE | 2018-05-06 12:13 | PN ---
Progress Note, Physician Chief Complaint: SVC syndrome History of Present Illness: NAD Feeling much better wants to go home Learnt how to give himself Lovenox injection - Current Medication List Current Medications: Active Medications Acetaminophen (Tylenol -) 650 mg PO Q6H PRN PRN Reason: PAIN OR FEVER Diltiazem HCl (Cardizem Cd -) 120 mg PO DAILY [facility] Last Admin: 05/06/18 09:14 Dose: 120 mg Docusate Sodium (Colace -) 100 mg PO BID [facility] Last Admin: 05/06/18 09:14 Dose: 100 mg Enoxaparin Sodium (Lovenox -) 90 mg SQ BID [facility] Last Admin: 05/06/18 09:15 Dose: 90 mg Oxycodone HCl (Roxicodone -) 10 mg PO Q6H PRN PRN Reason: PAIN LEVEL 7 - 10 Last Admin: 05/05/18 22:07 Dose: 10 mg Oxycodone HCl (Roxicodone -) 5 mg PO Q6H PRN PRN Reason: PAIN LEVEL 4 - 6 Sotalol HCl (Betapace -) 80 mg PO BID [facility] Last Admin: 05/06/18 09:14 Dose: 80 mg Tiotropium [place] (Spiriva Respimat) 2 puff IH DAILY [facility] Last Admin: 05/06/18 09:17 Dose: 2 puff - Objective Vital Signs: Vital Signs Temperature 99.1 F 05/06/18 08:15 Pulse Rate 85 05/06/18 08:15 Respiratory Rate 20 05/06/18 09:00 Blood Pressure 121/45 L 05/06/18 08:15 O2 Sat by Pulse Oximetry (%) 96 05/06/18 09:00 Constitutional: Yes: Well Nourished, No Distress, Calm Cardiovascular: Yes: Pulse Irregular Respiratory: Yes: Regular Gastrointestinal: Yes: Normal Bowel Sounds, Soft Musculoskeletal: Yes: WNL Extremities: Yes: WNL Edema: No Peripheral Pulses WNL: Yes Neurological: Yes: Alert, Oriented Psychiatric: Yes: Alert, Oriented Labs: CBC, BMP 05/05/18 08:30 05/05/18 08:20 INR, PTT INR 1.18 (0.83-1.09) H 04/30/18 06:55 Fibrinogen > 500.0 mg/dL (238-498) H 04/10/18 13:15 Problem List - Problems (1) Afib Assessment/Plan: -Cardiology on board -lovenox 90 mg SQ BID outpatient -On CCB and BB Code(s): I48.91 - UNSPECIFIED ATRIAL FIBRILLATION (2) Lung cancer Assessment/Plan: Oncology and pulmonary on board Code(s): C34.90 - MALIGNANT NEOPLASM OF UNSP PART OF UNSP BRONCHUS OR LUNG (3) SVC syndrome Assessment/Plan: -Seen by IR -SVC stent placement Code(s): I87.1 - COMPRESSION OF VEIN (4) Guaiac positive stools Assessment/Plan: -GI consult -monitor H/H -Likely no intervention at this time. Code(s): R19.5 - OTHER FECAL ABNORMALITIES (5) Dyspnea Assessment/Plan: -improved -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 -oncology and RT on board outpatient chemo and RT Code(s): R06.00 - DYSPNEA, UNSPECIFIED Qualifiers: Dyspnea type: dyspnea on exertion Qualified Code(s): R06.09 - Other forms of dyspnea Assessment/Plan see problem list self ambulatory Pt will see Radiation oncologist on Wednesday and f/u with Oncology within 1 week.
--- NOTE | 2018-05-06 12:52 | DS ---
Physical Examination Vital Signs: Vital Signs Temperature 99.1 F 05/06/18 08:15 Pulse Rate 85 05/06/18 08:15 Respiratory Rate 20 05/06/18 09:00 Blood Pressure 121/45 L 05/06/18 08:15 O2 Sat by Pulse Oximetry (%) 96 05/06/18 09:00 Findings/Remarks: Procedures: Principal: 04/21 SVC clot extracted via IR started on heparin drip Other Procedures: chest CT large central upper lobe mass with extension into mediastinum. suspicion for SVC syndrome. brain MRI negative. bone scan negative. lung biopsy- mod differentiated squamous cell carcinoma Constitutional: Yes: Well Nourished, No Distress, Calm Cardiovascular: Yes: Regular Rate and Rhythm Respiratory: Yes: Regular Gastrointestinal: Yes: Normal Bowel Sounds, Soft Musculoskeletal: Yes: WNL Extremities: Yes: WNL Edema: No Peripheral Pulses WNL: Yes Neurological: Yes: Alert, Oriented Psychiatric: Yes: Alert, Oriented Labs: CBC, BMP 05/05/18 08:30 05/05/18 08:20 Discharge Summary Reason For Visit: HEMOPTYSIS,DYSPNEA,LUNG MASS Current Active Problems Afib (Acute) Anticoagulant long-term use (Acute) COPD (chronic obstructive pulmonary disease) (Acute) DVT (deep venous thrombosis) (Acute) Diastolic dysfunction with acute on chronic heart failure (Acute) Dyspnea (Acute) Guaiac positive stools (Acute) HTN (hypertension) (Acute) Hemoptysis (Acute) Lung cancer (Acute) Paroxysmal atrial fibrillation (Acute) SVC syndrome (Acute) Smoker (Acute) Squamous cell lung cancer (Acute) Hospital Course: HISTORY OF PRESENT ILLNESS: This is a 62-year-old male with a history of cigarette smoking, COPD, hypertension, recently diagnosed atrial fibrillation ( on Eliquis) and known lung nodule for 20 years. He was scheduled for bronchoscopy in February, but was noted to have new atrial fibrillation at the time of the procedure, so it was deferred. Since that time, he has had worsening symptoms, including dyspnea on minimal exertion and with laying flat ( he reports that he now has to sleep upright) and cough with occasional hemoptysis ("a spot" of blood). 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 He is referred for suspicion of possible SVC syndrome.per patient he has gained 9 months with increase in upper arms and face swelling Laboratory Last Values WBC 4.6 K/mm3 (4.0-10.0) 05/05/18 08:30 RBC 3.84 M/mm3 (4.00-5.60) L 05/05/18 08:30 Hgb 11.6 GM/dL (11.7-16.9) L 05/05/18 08:30 Hct 35.3 % (35.4-49) L 05/05/18 08:30 MCV 92.0 fl (80-96) 05/05/18 08:30 MCH 30.2 pg (25.7-33.7) 05/05/18 08:30 MCHC 32.8 g/dl (32.0-35.9) 05/05/18 08:30 RDW 14.9 % (11.9-15.9) 05/05/18 08:30 Plt Count 113 K/MM3 (134-434) L 05/05/18 08:30 MPV 7.3 fl (7.5-11.1) L 05/05/18 08:30 Absolute Neuts (auto) 2.7 K/mm3 (1.5-8.0) 05/05/18 08:30 Neutrophils % 58.7 % (42.8-82.8) 05/05/18 08:30 Lymphocytes % 24.9 % (8-40) 05/05/18 08:30 Monocytes % 12.0 % (3.8-10.2) H 05/05/18 08:30 Eosinophils % 3.7 % (0-4.5) 05/05/18 08:30 Basophils % 0.7 % (0-2.0) 05/05/18 08:30 Nucleated RBC % 0 % (0-0) 05/05/18 08:30 PT with INR 14.00 SEC (9.7-13.0) H 04/30/18 06:55 INR 1.18 (0.83-1.09) H 04/30/18 06:55 PTT (Actin FS) 62.7 SECONDS (25.2-36.5) H 05/04/18 05:30 Fibrinogen > 500.0 mg/dL (238-498) H 04/10/18 13:15 Sodium 138 mmol/L (136-145) 05/05/18 08:20 Potassium 4.4 mmol/L (3.5-5.1) 05/05/18 08:20 Chloride 101 mmol/L (98-107) 05/05/18 08:20 Carbon Dioxide 27 mmol/L (21-32) 05/05/18 08:20 Anion Gap 10 MMOL/L (8-16) 05/05/18 08:20 BUN 13 mg/dL (7-18) 05/05/18 08:20 Creatinine 0.9 mg/dL (0.55-1.3) 05/05/18 08:20 Creat Clearance w eGFR > 60 (>60) 05/05/18 08:20 Random Glucose 95 mg/dL (74-106) 05/05/18 08:20 Calcium 10.6 mg/dL (8.5-10.1) H 05/05/18 08:20 Phosphorus 3.3 mg/dL (2.5-4.9) 05/05/18 08:20 Magnesium 2.2 mg/dL (1.8-2.4) 05/05/18 08:20 Total Bilirubin 0.4 mg/dL (0.2-1) 05/05/18 08:20 AST 11 U/L (15-37) L 05/05/18 08:20 ALT 21 U/L (13-61) 05/05/18 08:20 Alkaline Phosphatase 53 U/L (45-117) 05/05/18 08:20 Creatine Kinase 25 IU/L (26-308) L 04/26/18 16:45 Troponin I < 0.02 ng/ml (0.00-0.05) 04/26/18 16:45 B-Natriuretic Peptide 32.0 pg/ml (5-125) 04/07/18 12:50 Total Protein 7.0 g/dl (6.4-8.2) 05/05/18 08:20 Albumin 3.0 g/dl (3.4-5.0) L 05/05/18 08:20 Stool Occult Blood Positive (NEGATIVE) 04/24/18 09:02 Hepatitis Be Antigen Negative (Negative) 04/25/18 16:40 Hep C Ab Diagnostic >11.0 04/25/18 16:40 HCV RNA PCR w/Genot Rflx Hcv not detected IU/mL (.) 04/25/18 16:40 Liver Fibrosis Interp (.) 04/25/18 16:40 HIV 1&2 Antibody Screen Negative 04/25/18 16:40 HIV P24 Antigen Negative 04/25/18 16:40 Blood Type O POSITIVE 04/07/18 17:05 Antibody Screen Negative 04/07/18 12:50 Microbiology 04/09/18 08:30 Blood - Peripheral Venous Blood Culture - Final NO GROWTH AFTER 5 DAYS INCUBATION 04/09/18 08:20 Blood - Peripheral Venous Blood Culture - Final NO GROWTH AFTER 5 DAYS INCUBATION 04/09/18 10:20 Sputum - Expectorated Gram Stain - Final 04/09/18 10:20 Sputum - Expectorated Sputum Culture - Final Citrobacter Koseri 04/09/18 10:20 Urine - Urine Clean Catch Urine Culture - Final NO GROWTH OBTAINED Condition: Stable - Instructions Diet, Activity, Other Instructions: will need colonscopy as outpatient Referrals: Pa Arceo MD, MD [Primary Care Provider] - Katelin Read MD [Staff Physician] - Michel Newton MD [Staff Physician] - Obey Peraza MD [Staff Physician] - Disposition: HOME - Home Medications Comprehensive Discharge Medication List: Ambulatory Orders Albuterol Sulfate [Proventil HFA Inhaler -] 1 - 2 inh PO QID 02/22/18 Tiotropium Br/Olodaterol HCl [Stiolto Respimat Inhal [place]] 4 gm IH DAILY Acetaminophen [Tylenol .Regular Strength -] 650 mg PO Q6H PRN tablet 04/29/18 Sotalol HCl [Betapace -] 80 mg PO BID tablet 04/29/18 Tiotropium [place] [Spiriva Respimat] 2 puff IH DAILY inhaler 04/29/18 oxyCODONE HCL [Roxicodone -] 5 mg PO Q4H PRN #10 tablet MDD 4 04/29/18 Diltiazem Cd [Cardizem Cd -] 120 mg PO DAILY #30 cap.cd.24h 05/05/18 Enoxaparin [Lovenox -] 90 mg SQ BID #60 disp.syrin 05/05/18 oxyCODONE HCL [Roxicodone -] 5 mg PO Q6H PRN #30 tablet MDD 4 05/05/18
[2018-05-06 13:42] VITALS: BP 106/55; PULSE 72; TEMP 98.4
== END 2018-05-06 13:45 | disposition home or self-care (01) | DRG 271 ==
LOC: JER 10:39 → JERBED 12:39 → J2W 23:55 → J4W 04-20 15:58 → JSAMEDAYSX 04-28 13:00 → J4W 04-28 13:22 → JSAMEDAYSX 05-02 13:06 → JICU 05-02 16:56 → J6S 05-05 17:41 → J7W 05-05 17:47
PROVIDERS: ADMIT Family Medicine; ATTEND Family Medicine
PROC: 0BBC3ZX Excision of Right Upper Lung Lobe, Percutaneous Approach, Diagnostic (ICD-10-PCS; 2018-04-12)
PROC: 02CV3ZZ Extirpation of Matter from Superior Vena Cava, Percutaneous Approach (ICD-10-PCS; 2018-04-22)
PROC: 3E07317 Introduction of Other Thrombolytic into Coronary Artery, Percutaneous Approach (ICD-10-PCS; 2018-04-22)
PROC: 02CV3ZZ Extirpation of Matter from Superior Vena Cava, Percutaneous Approach (ICD-10-PCS; principal; 2018-05-02)
PROC: 027V3DZ Dilation of Superior Vena Cava with Intraluminal Device, Percutaneous Approach (ICD-10-PCS; 2018-05-02)
PROC: 3E07317 Introduction of Other Thrombolytic into Coronary Artery, Percutaneous Approach (ICD-10-PCS; 2018-05-02)
DX: I87.1 Compression of vein (principal); C34.11 Malignant neoplasm of upper lobe, right bronchus or lung; R04.2 Hemoptysis; I48.92 Unspecified atrial flutter; J98.11 Atelectasis; I82.210 Acute embolism and thrombosis of superior vena cava; D68.69 Other thrombophilia; I50.1 Left ventricular failure, unspecified; I48.0 Paroxysmal atrial fibrillation; J43.9 Emphysema, unspecified; E11.9 Type 2 diabetes mellitus without complications; F17.210 Nicotine dependence, cigarettes, uncomplicated; Z79.01 Long term (current) use of anticoagulants; I11.9 Hypertensive heart disease without heart failure; G89.29 Other chronic pain; M54.5 Low back pain; Z86.19 Personal history of other infectious and parasitic diseases; R07.89 Other chest pain
CPT/HCPCS: 32405; 36415; 37187; 37212; 37238; 37248; 70552-TC; 71045-TC-FY; 71046-TC-FY; 71250-TC; 71260-TC; 75827-TC-FY; 75978-TC-FY; 76000-TC-FY; 76937-TC; 77012-TC; 78306-TC; 80048; 80053; 82272; 82550; 83735; 83880; 84100; 84484; 85025; 85027; 85384; 85610; 85730; 86803; 86850; 86900; 86901; 87040; 87070; 87086; 87186; 87205; 87350; 87389; 88305-TC; 88341-TC; 90670; 90688; 93005; 93010; 94010; 94761; 97116-GP; 97161-GP; 99284-25; A9503; C1725; C1757; C1769; C1876; C1887; C1894; G0008; G0009; J0131; J1644; J2997

== ENCOUNTER 2018-05-30 07:33 | Day surgery (SDC) | payer BC ==
[2018-05-30] MEDS ORDERED: DEXAMETHASONE INJECTION 20 MG, RANITIDINE INJECTION 50 MG, DIPHENHYDRAMINE 50 MG in SOD... IVPB ONE (10:00)
[2018-05-30] MEDS ORDERED: PALONOSETRON HCL 0.25 MG/5 ML VIAL IVPUSH ONE (10:00)
[2018-05-30] MEDS ORDERED: PACLITAXEL 102 MG in SODIUM CHLORIDE 250 ML IVPB ONE (10:30)
[2018-05-30] MEDS ORDERED: SODIUM CHLORIDE IVPB ONE (11:00)
[2018-05-30] MEDS ORDERED: CARBOPLATIN IVPB ONE (11:00)
[2018-05-30 11:42] LABS: BASO % 0.9 % (0-2.0); EOS % 4.2 % (0-4.5); HEMOGLOBIN 12.7 GM/dL (11.7-16.9); LYMPH % 29.9 % (8-40); MCH 31.5 pg (25.7-33.7); MCHC 34.3 g/dl (32.0-35.9); MEAN CELL VOLUME 91.9 fl (80-96); MEAN PLT VOLUME 7.3 fl (7.5-11.1); MONO % 9.2 % (3.8-10.2); NEUT % 55.8 % (42.8-82.8); PLATELET COUNT 205 K/MM3 (134-434); RBC 4.02 M/mm3 (4.00-5.60); RDW 15.6 % (11.9-15.9); WHITE BLOOD COUNT 5.1 K/mm3 (4.0-10.0)
[2018-05-30 12:27] LABS: ALBUMIN 3.5 g/dl (3.4-5.0); ALK PHOS 80 U/L (45-117); ANION GAP 5 MMOL/L (8-16); BILIRUBIN,DIRECT 0.1 mg/dL (0.0-0.2); BILIRUBIN,TOTAL 0.2 mg/dL (0.2-1); BLOOD UREA NITROGEN 10 mg/dL (7-18); CALCIUM 9.9 mg/dL (8.5-10.1); CHLORIDE 105 mmol/L (98-107); CO2 30 mmol/L (21-32); CREATININE 0.8 mg/dL (0.55-1.3); GLUCOSE,RANDOM 66 mg/dL (74-106); MAGNESIUM 2.1 mg/dL (1.8-2.4); POTASSIUM 4.3 mmol/L (3.5-5.1); SGOT/AST 19 U/L (15-37); SGPT/ALT 33 U/L (13-61); SODIUM 140 mmol/L (136-145); TOT PROT 7.4 g/dl (6.4-8.2)
[2018-05-30] MEDS ORDERED: DEXAMETHASONE INJECTION 20 MG in SODIUM CHLORIDE 100 ML IVPB ONE ×2 (12:30→14:00)
[2018-05-30] MEDS ORDERED: SODIUM CHLORIDE 200 ML IV ONE ×2 (12:30→14:00)
[2018-05-30] MEDS ORDERED: DEXAMETHASONE SOD PHOSPHATE 10 MG/1 ML VIAL ONE (13:08)
[2018-05-30 18:29] VITALS: BP 118/72; PULSE 85; TEMP 97.9
== END 2018-05-30 18:47 | disposition home or self-care (01) ==
LOC: JRADIR 07:33 → J7W 12:02 → JRADIR 18:47
PROVIDERS: ATTEND Internal Medicine Hematology & Oncology
PROC: 3E03305 Introduction of Other Antineoplastic into Peripheral Vein, Percutaneous Approach (ICD-10-PCS; principal; 2018-05-30)
PROC: 05H533Z Insertion of Infusion Device into Right Subclavian Vein, Percutaneous Approach (ICD-10-PCS; 2018-05-30)
PROC: B516ZZA Fluoroscopy of Right Subclavian Vein, Guidance (ICD-10-PCS; 2018-05-30)
DX: Z51.11 Encounter for antineoplastic chemotherapy (principal)
CPT/HCPCS: 36415; 36569; 75827-TC-FY; 77001-TC-FY; 80053; 80076; 83735; 85025; 96361; 96367; 96375; 96413; 96417; C1751; J1100; J2469

== ENCOUNTER 2018-06-06 07:23 | Day surgery (SDC) | payer BC ==
[2018-06-06] MEDS ORDERED: RANITIDINE IVPB ONE (10:00)
[2018-06-06] MEDS ORDERED: PALONOSETRON HCL 0.25 MG/5 ML VIAL IVPUSH ONE (10:00)
[2018-06-06] MEDS ORDERED: DEXAMETHASONE SODIUM PHOSPHATE IVPB ONE (10:00)
[2018-06-06] MEDS ORDERED: [UNRECOGNIZED DRUG - OTHER] IVPB ONE (10:00)
[2018-06-06] MEDS ORDERED: PACLITAXEL 102 MG in SODIUM CHLORIDE 250 ML IVPB ONE (10:30)
[2018-06-06] MEDS ORDERED: PICC LINE 8 ML FLUSH PROTOCOL IVPUSH PRN (11:28)
[2018-06-06] MEDS ORDERED: CARBOPLATIN IVPB ONE (11:30)
[2018-06-06] MEDS ORDERED: SODIUM CHLORIDE IVPB ONE (11:30)
[2018-06-06 11:42] LABS: BASO % 0.7 % (0-2.0); EOS % 3.3 % (0-4.5); HEMATOCRIT 34.8 % (35.4-49); LYMPH % 20.4 % (8-40); MCH 31.8 pg (25.7-33.7); MCHC 34.6 g/dl (32.0-35.9); MEAN PLT VOLUME 7.8 fl (7.5-11.1); MONO % 11.7 % (3.8-10.2); NEUT % 63.9 % (42.8-82.8); PLATELET COUNT 220 K/MM3 (134-434); RBC 3.78 M/mm3 (4.00-5.60); RDW 15.5 % (11.9-15.9); WHITE BLOOD COUNT 4.4 K/mm3 (4.0-10.0)
[2018-06-06 12:19] LABS: ALBUMIN 3.4 g/dl (3.4-5.0); ALK PHOS 65 U/L (45-117); ANION GAP 8 MMOL/L (8-16); BILIRUBIN,DIRECT 0.1 mg/dL (0.0-0.2); BILIRUBIN,TOTAL 0.2 mg/dL (0.2-1); BLOOD UREA NITROGEN 14 mg/dL (7-18); CALCIUM 9.4 mg/dL (8.5-10.1); CHLORIDE 102 mmol/L (98-107); CO2 28 mmol/L (21-32); CREATININE 0.9 mg/dL (0.55-1.3); GLUCOSE,RANDOM 78 mg/dL (74-106); POTASSIUM 4.6 mmol/L (3.5-5.1); SGOT/AST 14 U/L (15-37); SGPT/ALT 23 U/L (13-61); SODIUM 137 mmol/L (136-145); TOT PROT 7.4 g/dl (6.4-8.2)
[2018-06-06] MEDS ORDERED: DEXAMETHASONE SOD PHOSPHATE 10 MG/1 ML VIAL ONE (13:40)
[2018-06-06] MEDS ORDERED: SODIUM CHLORIDE 250 ML IV ONE (14:00)
[2018-06-06] MEDS ORDERED: DEXAMETHASONE SOD PHOSPHATE 10 MG/1 ML VIAL IVPB ONE (14:00)
[2018-06-06 16:19] VITALS: TEMP 97.7
[2018-06-06 17:59] VITALS: BP 112/61; PULSE 63
== END 2018-06-06 18:00 | disposition home or self-care (01) ==
LOC: JONCCHEMO 07:23 → J7W 13:05 → JONCCHEMO 18:00
PROVIDERS: ATTEND Internal Medicine Hematology & Oncology
DX: Z51.11 Encounter for antineoplastic chemotherapy (principal); C34.11 Malignant neoplasm of upper lobe, right bronchus or lung
CPT/HCPCS: 36415; 36569; 77001-TC-FY; 80053; 80076; 85025; 96361; 96367; 96375; 96413; 96417; C1751; J1100; J2469

== ENCOUNTER 2018-06-13 07:31 | Day surgery (SDC) | payer BC ==
[2018-06-13] MEDS ORDERED: PALONOSETRON HCL 0.25 MG/5 ML VIAL IVPUSH ONE (10:00)
[2018-06-13] MEDS ORDERED: [UNRECOGNIZED DRUG - OTHER] IVPB ONE (10:00)
[2018-06-13] MEDS ORDERED: RANITIDINE IVPB ONE (10:00)
[2018-06-13] MEDS ORDERED: DEXAMETHASONE SODIUM PHOSPHATE IVPB ONE (10:00)
[2018-06-13] MEDS ORDERED: PACLITAXEL 102 MG in SODIUM CHLORIDE 250 ML IVPB ONE (10:30)
[2018-06-13 10:52] LABS: EOS % 0.2 % (0-4.5); HEMOGLOBIN 12.3 GM/dL (11.7-16.9); LYMPH % 3.9 % (8-40); MCH 32.1 pg (25.7-33.7); MCHC 35.1 g/dl (32.0-35.9); MEAN CELL VOLUME 91.5 fl (80-96); MEAN PLT VOLUME 7.5 fl (7.5-11.1); MONO % 4.7 % (3.8-10.2); NEUT % 90.2 % (42.8-82.8); PLATELET COUNT 276 K/MM3 (134-434); RBC 3.82 M/mm3 (4.00-5.60); RDW 16.2 % (11.9-15.9); WHITE BLOOD COUNT 6.6 K/mm3 (4.0-10.0)
[2018-06-13] MEDS ORDERED: CARBOPLATIN IVPB ONE (11:00)
[2018-06-13] MEDS ORDERED: SODIUM CHLORIDE IVPB ONE (11:00)
[2018-06-13 11:27] LABS: ALBUMIN 3.3 g/dl (3.4-5.0); ALK PHOS 63 U/L (45-117); ANION GAP 10 MMOL/L (8-16); BILIRUBIN,TOTAL 0.4 mg/dL (0.2-1); BLOOD UREA NITROGEN 18 mg/dL (7-18); CALCIUM 8.6 mg/dL (8.5-10.1); CHLORIDE 100 mmol/L (98-107); CO2 29 mmol/L (21-32); CREATININE 0.8 mg/dL (0.55-1.3); GLUCOSE,RANDOM 126 mg/dL (74-106); POTASSIUM 3.9 mmol/L (3.5-5.1); SGOT/AST 9 U/L (15-37); SGPT/ALT 20 U/L (13-61); SODIUM 139 mmol/L (136-145)
[2018-06-13 11:29] LABS: ALBUMIN 3.3 g/dl (3.4-5.0); BILIRUBIN,DIRECT 0.1 mg/dL (0.0-0.2); BILIRUBIN,TOTAL 0.3 mg/dL (0.2-1); MAGNESIUM 2.1 mg/dL (1.8-2.4); TOT PROT 7.1 g/dl (6.4-8.2)
[2018-06-13 14:27] LABS: ANISOCYTOSIS 1+; MACROCYTOSIS 1+; ROULEAU 1+
[2018-06-13 14:33] LABS: PLATELET ESTIMATE NORMAL
[2018-06-13 17:23] VITALS: TEMP 97.3
[2018-06-13 17:28] VITALS: BP 138/77; PULSE 85
== END 2018-06-13 15:30 | disposition home or self-care (01) ==
LOC: JRADIR 07:31 → J7W 12:39 → JRADIR 15:30
PROVIDERS: ATTEND Internal Medicine Hematology & Oncology
PROC: 05H533Z Insertion of Infusion Device into Right Subclavian Vein, Percutaneous Approach (ICD-10-PCS; principal; 2018-06-13)
PROC: B516ZZA Fluoroscopy of Right Subclavian Vein, Guidance (ICD-10-PCS; 2018-06-13)
PROC: 3E03305 Introduction of Other Antineoplastic into Peripheral Vein, Percutaneous Approach (ICD-10-PCS; 2018-06-13)
DX: Z51.11 Encounter for antineoplastic chemotherapy (principal); C34.11 Malignant neoplasm of upper lobe, right bronchus or lung
CPT/HCPCS: 36415; 36569; 77001-TC-FY; 80053; 80076; 83735; 85025; 96367; 96375; 96413; 96417; C1751; J2469

== ENCOUNTER 2018-06-20 07:05 | Day surgery (SDC) | payer BC ==
[2018-06-20] MEDS ORDERED: PALONOSETRON HCL 0.25 MG/5 ML VIAL IVPUSH ONE (10:00)
[2018-06-20] MEDS ORDERED: [UNRECOGNIZED DRUG - OTHER] IVPB ONE (10:00)
[2018-06-20] MEDS ORDERED: RANITIDINE IVPB ONE (10:00)
[2018-06-20] MEDS ORDERED: DEXAMETHASONE SODIUM PHOSPHATE IVPB ONE (10:00)
[2018-06-20] MEDS ORDERED: PACLITAXEL 102 MG in SODIUM CHLORIDE 250 ML IVPB ONE (10:30)
[2018-06-20 10:42] LABS: BASO % 0.2 % (0-2.0); HEMOGLOBIN 12.8 GM/dL (11.7-16.9); LYMPH % 6.1 % (8-40); MCH 32.2 pg (25.7-33.7); MCHC 34.5 g/dl (32.0-35.9); MEAN CELL VOLUME 93.3 fl (80-96); MEAN PLT VOLUME 7.4 fl (7.5-11.1); MONO % 5.9 % (3.8-10.2); NEUT % 86.8 % (42.8-82.8); PLATELET COUNT 153 K/MM3 (134-434); RBC 3.97 M/mm3 (4.00-5.60); RDW 17.6 % (11.9-15.9)
[2018-06-20 11:10] LABS: ALBUMIN 3.5 g/dl (3.4-5.0); ALK PHOS 60 U/L (45-117); ANION GAP 8 MMOL/L (8-16); BILIRUBIN,TOTAL 0.3 mg/dL (0.2-1); BLOOD UREA NITROGEN 20 mg/dL (7-18); CHLORIDE 102 mmol/L (98-107); CO2 29 mmol/L (21-32); CREATININE 0.9 mg/dL (0.55-1.3); GLUCOSE,RANDOM 143 mg/dL (74-106); POTASSIUM 4.1 mmol/L (3.5-5.1); SGOT/AST 9 U/L (15-37); SGPT/ALT 25 U/L (13-61); SODIUM 138 mmol/L (136-145); TOT PROT 6.9 g/dl (6.4-8.2)
[2018-06-20 11:13] LABS: ALBUMIN 3.5 g/dl (3.4-5.0); BILIRUBIN,DIRECT 0.1 mg/dL (0.0-0.2); BILIRUBIN,TOTAL 0.3 mg/dL (0.2-1); MAGNESIUM 2.2 mg/dL (1.8-2.4)
[2018-06-20] MEDS ORDERED: SODIUM CHLORIDE IVPB ONE (11:30)
[2018-06-20] MEDS ORDERED: CARBOPLATIN IVPB ONE (11:30)
[2018-06-20 14:19] LABS: ACANTHOCYTES 0; ANISOCYTOSIS 0; HELMET CELLS 0; HOWELL-JOLLY BODIES 0; MACROCYTOSIS 0; OVALOCYTE 0; ROULEAU 0; SICKELED CELLS 0; TARGET CELLS 0; TEAR DROP CELLS 0; TOXIC GRANULATION 0
[2018-06-20 14:29] LABS: PLATELET ESTIMATE ADEQUATE
[2018-06-20 17:06] VITALS: BP 114/76; PULSE 75; TEMP 97.9
== END 2018-06-20 15:15 | disposition home or self-care (01) ==
LOC: JRADIR 07:05 → J7W 13:03 → JRADIR 15:15
PROVIDERS: ATTEND Internal Medicine Hematology & Oncology
PROC: 02HV33Z Insertion of Infusion Device into Superior Vena Cava, Percutaneous Approach (ICD-10-PCS; principal; 2018-06-20)
PROC: B518ZZA Fluoroscopy of Superior Vena Cava, Guidance (ICD-10-PCS; 2018-06-20)
DX: Z51.11 Encounter for antineoplastic chemotherapy (principal); C34.11 Malignant neoplasm of upper lobe, right bronchus or lung
CPT/HCPCS: 36415; 36569; 75827-TC-FY; 77001-TC-FY; 80053; 80076; 83735; 85025; 96367; 96375; 96413; 96417; C1751; J2469

== ENCOUNTER 2018-06-29 05:45 | Day surgery (SDC) | payer BC, OTHER ==
[2018-06-29] MEDS ORDERED: DEXAMETHASONE INJECTION 20 MG, DIPHENHYDRAMINE 50 MG, RANITIDINE INJECTION 50 MG in SOD... IVPB ONE (08:00)
[2018-06-29] MEDS ORDERED: PALONOSETRON HCL 0.25 MG/5 ML VIAL IVPUSH ONE (08:00)
[2018-06-29] MEDS ORDERED: PACLITAXEL 102 MG in SODIUM CHLORIDE 250 ML IVPB ONE (08:30)
[2018-06-29] MEDS ORDERED: CARBOPLATIN IVPB ONE (09:30)
[2018-06-29] MEDS ORDERED: SODIUM CHLORIDE IVPB ONE (09:30)
[2018-06-29 12:28] LABS: BASO % 0.5 % (0-2.0); EOS % 3.9 % (0-4.5); HEMOGLOBIN 11.6 GM/dL (11.7-16.9); LYMPH % 17.9 % (8-40); MCH 32.4 pg (25.7-33.7); MCHC 35.1 g/dl (32.0-35.9); MEAN CELL VOLUME 92.1 fl (80-96); MEAN PLT VOLUME 7.3 fl (7.5-11.1); MONO % 6.3 % (3.8-10.2); NEUT % 71.4 % (42.8-82.8); PLATELET COUNT 83 K/MM3 (134-434); RBC 3.59 M/mm3 (4.00-5.60); RDW 18.8 % (11.9-15.9); WHITE BLOOD COUNT 2.6 K/mm3 (4.0-10.0)
[2018-06-29 12:56] LABS: ALBUMIN 3.5 g/dl (3.4-5.0); ALK PHOS 63 U/L (45-117); ANION GAP 6 MMOL/L (8-16); BILIRUBIN,TOTAL 0.2 mg/dL (0.2-1); BLOOD UREA NITROGEN 16 mg/dL (7-18); CALCIUM 8.7 mg/dL (8.5-10.1); CHLORIDE 101 mmol/L (98-107); CO2 30 mmol/L (21-32); CREATININE 0.9 mg/dL (0.55-1.3); GLUCOSE,RANDOM 111 mg/dL (74-106); MAGNESIUM 2.1 mg/dL (1.8-2.4); POTASSIUM 4.1 mmol/L (3.5-5.1); SGOT/AST 9 U/L (15-37); SGPT/ALT 25 U/L (13-61); SODIUM 138 mmol/L (136-145); TOT PROT 7.2 g/dl (6.4-8.2)
[2018-06-29] MEDS ORDERED: SODIUM CHLORIDE 500 ML IV STA (13:28)
--- NOTE | 2018-06-29 14:27 | RAPID ---
Physical Examination Findings/Remarks: Rapid response was called to 7W for chest discomfort. Patient endorsed left sided chest pain described as pressure like. Lasted several seconds before spontaneous resolution. Patient endorsed shortness of breath, and diaphoresis. Heart rate: 110 - 120 BP 126/80 Oxygen saturation during the pain was 94%. Improved to 100% room air after chest pain resolved,. Respiratory rate: 24 BPM EKG ordered showing Afib. Patient was sent immediately to ED for further evaluation. Constitutional: Yes: Anxious, Moderate Distress Eyes: Yes: Conjunctiva Clear, EOM Intact HENT: Yes: Atraumatic, Normocephalic Neck: Yes: Supple Cardiovascular: Yes: Tachycardia, Pulse Irregular Respiratory: Yes: CTA Bilaterally, SOB Labs: CBC, BMP 06/29/18 11:30 06/29/18 11:30 Rapid Response - Rapid Response Assessment: STAT EKG showing Afib Case was discussed with Dr. Duenas and patient will be sent directly to ED
[2018-06-29 15:47] VITALS: TEMP 97.7
[2018-06-29 15:52] VITALS: BP 112/68; PULSE 120
--- NOTE | 2018-06-29 16:44 | EKG ---
Test Reason : Blood Pressure : / mmHG Vent. Rate : 120 BPM Atrial Rate : 120 BPM P-R Int : 000 ms QRS Dur : 078 ms QT Int : 322 ms P-R-T Axes : 000 005 046 degrees QTc Int : 455 ms ATRIAL FIBRILLATION WITH RAPID VENTRICULAR RESPONSE ABNORMAL ECG WHEN COMPARED WITH ECG OF 05-MAY-2018 10:31, ATRIAL FIBRILLATION HAS REPLACED SINUS RHYTHM QUESTIONABLE CHANGE IN QRS AXIS Confirmed by DEVONTE LIM MD ([id number]) on 06/29/2018 4:44:25 PM Also confirmed by DEVONTE LIM MD ([id number]) on 06/29/2018 4:45:53 PM Referred By: Confirmed By:DEVONTE LIM MD
--- NOTE | 2018-06-29 20:05 | PN ---
Progress Note (short form) - Note Progress Note: Patient became presyncopal after starting taxol and premeds with benadryl/ decadron Had a coughing spell at te same time an d complained of chest pain Unsure if this is an allergic reaction to taxol--vitals stayed stable Got 10mg of dexamethasone slightly lethargic from ? benadryl Sent to ER for chest pain evaluation.
== END 2018-06-29 23:48 | disposition home or self-care (01) ==
LOC: JRADIR 05:45 → J7W 11:45 → JRADIR 23:48
PROVIDERS: ATTEND Internal Medicine Hematology & Oncology
PROC: 02HV33Z Insertion of Infusion Device into Superior Vena Cava, Percutaneous Approach (ICD-10-PCS; principal; 2018-06-29)
PROC: B518ZZA Fluoroscopy of Superior Vena Cava, Guidance (ICD-10-PCS; 2018-06-29)
PROC: 3E04305 Introduction of Other Antineoplastic into Central Vein, Percutaneous Approach (ICD-10-PCS; 2018-06-29)
DX: Z51.11 Encounter for antineoplastic chemotherapy (principal); C34.11 Malignant neoplasm of upper lobe, right bronchus or lung
CPT/HCPCS: 36415; 36569; 77001-TC-FY; 80053; 83735; 84484; 85025; 93005; 93010; 96367; 96375; 96413; C1751; J1100; J2469

== ENCOUNTER 2018-06-29 14:53 | Emergency (ER) | payer BC ==
[2018-06-29 15:15] VITALS: BP 120/89; PULSE 118; TEMP 98.1; BMI 26.2
--- NOTE | 2018-06-29 15:32 | PDOC ---
History of Present Illness - General Chief Complaint: Respiratory Stated Complaint: Shortness of Breath Time Seen by Provider: 06/29/18 15:30 - History of Present Illness Initial Comments: 63yo M with PMH of squamous cell lung carcinoma, LISA, COPD, paroxysmal afib, SVC syndrome, DVT, HTN presenting with shortness of breath. Patient reports he was receiving chemotherapy when he suddenly had a coughing fit lasting less than one minute and could not catch his breath. He has had a cough productive of mucus over the past week or so. Patient has had a flu shot this season. He also experienced substernal chest pain. The pain did not radiate and he describes it as a "pressure." No nausea, vomiting, or diaphoresis. Currently, Patient feels that he is at his baseline. Per Dr. Thomason, his oncologist, patient received a different chemotherapy drug today. No fever or chills. Past History - Past Medical History Allergies/Adverse Reactions: Allergies Allergy/AdvReac Type Severity Reaction Status Date / Time No Known Allergies Allergy Verified 06/29/18 15:09 Home Medications: Ambulatory Orders Albuterol Sulfate [Proventil HFA Inhaler -] 1 - 2 inh PO QID 02/22/18 Acetaminophen [Tylenol .Regular Strength -] 650 mg PO Q6H PRN tablet 04/29/18 Sotalol HCl [Betapace -] 80 mg PO BID tablet 04/29/18 Tiotropium [place] [Spiriva Respimat] 2 puff IH DAILY inhaler 04/29/18 oxyCODONE HCL [Roxicodone -] 5 mg PO Q4H PRN #10 tablet MDD 4 04/29/18 Diltiazem Cd [Cardizem Cd -] 120 mg PO DAILY #30 cap.cd.24h 05/05/18 Enoxaparin [Lovenox -] 90 mg SQ BID #60 disp.syrin 05/05/18 Anemia: No Asthma: No Cancer: No Cardiac Disorders: No CVA: No COPD: Yes CHF: No Dementia: No Diabetes: No GI Disorders: No Disorders: No HTN: No Hypercholesterolemia: No Liver Disease: No Seizures: No Thyroid Disease: No - Surgical History Abdominal Surgery: Yes (hernia) Cholecystectomy: Yes - Immunization History Immunization Up to Date: No - Suicide/Smoking/Psychosocial Hx Smoking History: Unknown if ever smoked Have you smoked in the past 12 months: Yes Number of Cigarettes Smoked Daily: 5 'Breaking Loose' booklet given: 04/07/18 Hx Alcohol Use: No Drug/Substance Use Hx: No Substance Use Type: Marijuana Hx Substance Use Treatment: No Review of Systems - Review of Systems Comments:: Constitutional: no fever, no chills HEENT: no throat pain, no dysphagia Cardiovascular: +chest pain, no palpitations Respiratory: +cough, +shortness of breath Gastrointestinal: no abdominal pain, no nausea, no vomiting Genitourinary: no dysuria, no frequency Musculoskeletal: no myalgia, no arthralgia Skin: no rash, no itching Neurologic: no headache, no dizziness *Physical Exam - Vital Signs Last Vital Signs Temp Pulse Resp BP Pulse Ox 98.1 F 118 H 20 120/89 100 06/29/18 15:05 06/29/18 15:05 06/29/18 15:05 06/29/18 15:05 06/29/18 15:05 - Physical Exam Comments: General: Awake, alert, and fully oriented, in no acute distress Head: No signs of trauma Eyes: EOMI ENT: Moist mucus membranes Neck: Normal ROM, supple Lungs: Crackles present at the left lower lung base Cardio: Regular rhythm, S1 and S2 present Abdomen: Soft, nontender. No guarding, no rebound, no masses Extremities: Normal range of motion, Distal pulses present, no lower extremity edema, no cords or tenderness SKIN: Warm, Dry, normal turgor Neurologic: Cranial nerves II through XII grossly intact. Normal speech Moderate Sedation - Procedure Monitoring Vital Signs: Procedure Monitoring Vital Signs Temperature 98.1 F 06/29/18 15:05 Pulse Rate 118 H 06/29/18 15:05 Respiratory Rate 20 06/29/18 15:05 Blood Pressure 120/89 06/29/18 15:05 O2 Sat by Pulse Oximetry (%) 100 06/29/18 15:05 ED Treatment Course - LABORATORY CBC & Chemistry Diagram: 06/29/18 16:40 06/29/18 16:40 Medical Decision Making - Medical Decision Making 63yo M with PMH of squamous cell lung carcinoma, LISA, COPD, paroxysmal afib, SVC syndrome, DVT, HTN presenting with shortness of breath. -Dr. Thomason, patient's oncologist, called the ED and requested a septic workup. She also reports that patient was receiving a new chemotherapy drug today -Also performing cardiac workup due to patient's chest pain -Despite current anticoagulation regimen with Lovenox, since patient presented with tachycardia, shortness of breath, history of DVT and malignancy: ordered Chest CTA to rule out PE. -BNP ordered to assess for fluid overload -Discussion with interventional radiology regarding patient's PICC line: Patient typically gets PICC line removed after receiving chemotherapy because he has a history of SVC syndrome. The PICC line is re-inserted every week. Decision made to keep PICC line in place while patient is in the ED in case patient will be admitted as this access can be used to administer medicine. If patient is to be discharged, PICC line can be removed by nurse in the ED. 06/29/18 15:31 EKG: rate 114, Afib CTA Impression: "No CT evidence of pulmonary embolism." Tpn negative. BNP within normal range. No leukocytosis or anemia. Lactate normal. Electrolytes unremarkable. UA negative for infection. CXR without significant difference when compared to previous No signs of systemic infection or other source. Patient has made repeated requests to go home. Consulted with Dr. Thomason who recommended patient only take one lovenox shot daily and follow up with her at his already scheduled appointment on Wednesday Patient's PICC line removed at 31. Discharged. *DC/Admit/Observation/Transfer Diagnosis at time of Disposition: Shortness of breath - Discharge Dispostion Disposition: HOME Condition at time of disposition: Stable - Referrals Referrals: Pa Taylor [Primary Care Provider] - - Patient Instructions Additional Instructions: You came to the ED because you had cough and SOB. Blood work and imaging were negative for acute pathology. Follow-up with your oncologist, Dr. Thomason, at your appointment on Wednesday to discuss this ED visit and further evaluate your symptoms. Administer lovenox only once a day until your physician instructs you to do otherwise. Continue taking home medications as prescribed, Call for emergency medical services or go to the emergency room right away if you experience palpitations, chest pain, shortness of breath, dizziness, you pass out, any focal weakness, or changes in vision. If you think you have an emergency, call for medical help right away. - Post Discharge Activity
[2018-06-29 17:02] LABS: BASO % 0.3 % (0-2.0); HEMOGLOBIN 11.9 GM/dL (11.7-16.9); LYMPH % 14.8 % (8-40); MCH 32.7 pg (25.7-33.7); MEAN CELL VOLUME 93.4 fl (80-96); MEAN PLT VOLUME 7.1 fl (7.5-11.1); MONO % 4.3 % (3.8-10.2); NEUT % 79.6 % (42.8-82.8); PLATELET COUNT 72 K/MM3 (134-434); RBC 3.64 M/mm3 (4.00-5.60); RDW 18.8 % (11.9-15.9); WHITE BLOOD COUNT 2.7 K/mm3 (4.0-10.0)
[2018-06-29 17:15] LABS: INR 0.93 (0.83-1.09)
[2018-06-29 17:18] LABS: ACTIVATED PTT 29.9 SECONDS (25.2-36.5)
--- NOTE | 2018-06-29 17:37 | PDOC ---
Attending Attestation - Resident Resident Name: Blanche Panda - ED Attending Attestation I have performed the following: I have examined & evaluated the patient, The case was reviewed & discussed with the resident, I agree w/resident's findings & plan, Exceptions are as noted - HPI HPI: 06/29/18 17:28 The patient is a 63 year old male, with a significant past medical history of Lung CA, cigarette smoking, COPD, hypertension, recently diagnosed atrial fibrillation (on Eliquis), who presents to the emergency department with shortness of breath and chest pain after a coughing episode this afternoon in the infusion center. Pt states that he was getting his chemo infusion when he suddenly had a coughing fit. Pt states it lasted about 10 seconds. Pt subsequently had CP and SOB. Rapid response was called, and pt was given benadryl and steroids for possible adverse reaction to infusion. In ED, pt has no complaints. The patient denies headache and dizziness. The patient denies fever, chills, nausea, vomit, diarrhea and constipation. The patient denies dysuria, frequency , urgency and hematuria. PCP: Dr. Ling Mensah Documentation Writer: Dr. Coffey Vertical Mill Operator: Dr. Arceo Social Hx: 1ppd x 51 yrs, recently cut down to 4-6 cigarettes daily - Physicial Exam PE: 06/29/18 17:37 GENERAL: Awake, alert, and fully oriented, in no acute distress. HEAD: No signs of trauma EYES: PERRLA, EOMI, sclera anicteric, conjunctiva clear ENT: Auricles normal inspection, hearing grossly normal, nares patent, oropharynx clear without exudates. Moist mucosa NECK: Nontender, no stepoffs, Normal ROM, supple, no lymphadenopathy, JVD, or masses LUNGS: Breath sounds equal, clear to auscultation bilaterally. No wheezes, and no crackles HEART: Regular rate and rhythm, normal S1 and S2, no murmurs, rubs or gallops ABDOMEN: Soft, nontender, normoactive bowel sounds. No guarding, no rebound. No masses EXTREMITIES: Normal range of motion, no edema. No clubbing or cyanosis. No cords, erythema, or tenderness NEUROLOGICAL: Cranial nerves II through XII intact. 5/5 strength and sensation in all extremities, Normal speech, normal gait, normal cerebellar function SKIN: Warm, Dry, normal turgor, no rashes or lesions noted. - Medical Decision Making 06/29/18 17:38 63 M with sudden onset CP and SOB after coughing fit during chemo infusion. Pt with no wheezing on exam currently to suggest allergic reaction. Pt has clear lungs. EKG shows afib with HR 114. Will evaluate for ACS and CHF. Pt also with h /o DVTs, will need to r/o PE. - Labs, trop, BNP - CXR - CTA r/o PE 06/29/18 19:00 Pt signed out to Dr. Merino at 7PM, pending labwork, repeat troponin, CTA, and re- evaluation
[2018-06-29 17:48] LABS: ALBUMIN 3.4 g/dl (3.4-5.0); CALCIUM 8.2 mg/dL (8.5-10.1); CREATININE 1.1 mg/dL (0.55-1.3); SGPT/ALT 27 U/L (13-61)
[2018-06-29 17:49] LABS: ALK PHOS 68 U/L (45-117); ANION GAP 6 MMOL/L (8-16); BILIRUBIN,TOTAL 0.2 mg/dL (0.2-1); BLOOD UREA NITROGEN 17 mg/dL (7-18); CHLORIDE 103 mmol/L (98-107); CO2 29 mmol/L (21-32); GLUCOSE,RANDOM 211 mg/dL (74-106); POTASSIUM 4.7 mmol/L (3.5-5.1); SGOT/AST 11 U/L (15-37); SODIUM 138 mmol/L (136-145); TOT PROT 7.1 g/dl (6.4-8.2)
[2018-06-29 18:17] LABS: URINE APPEARANCE SLCLOUDY; URINE BILIRUBIN NEGATIVE (<2.0 mg/dL); URINE COLOR YELLOW; URINE GLUCOSE (UA) NEGATIVE (NEGATIVE); URINE KETONE NEGATIVE (NEGATIVE); URINE LEUK ESTERASE NEGATIVE (NEGATIVE); URINE NITRITE NEGATIVE (NEGATIVE); URINE PROTEIN 1+ (NEGATIVE); URINE UROBILINOGEN NEGATIVE mg/dL (0.2-1.0)
[2018-06-29 18:19] LABS: URINE BACTERIA MANY /hpf (NONE SEEN); URINE MUCUS RARE
[2018-06-29 19:36] LABS: N-TERMINAL BNP 73.3 pg/ml (5-125)
== END 2018-06-29 21:26 | disposition home or self-care (01) ==
LOC: JER 14:53
DX: R06.02 Shortness of breath (principal); R05 Cough; C34.90 Malignant neoplasm of unspecified part of unspecified bronchus or lung; I10 Essential (primary) hypertension; J44.9 Chronic obstructive pulmonary disease, unspecified; I48.0 Paroxysmal atrial fibrillation; Z79.01 Long term (current) use of anticoagulants; G47.33 Obstructive sleep apnea (adult) (pediatric); I87.1 Compression of vein; Z86.718 Personal history of other venous thrombosis and embolism
CPT/HCPCS: 36415; 71045-TC-FY; 71275-TC; 80053; 81003; 81015; 83605; 83880; 84484; 85025; 85610; 85730; 87040; 87086; 87186; 99282-25

== ENCOUNTER → 2018-07-04 | Day surgery (SDC) | payer BC, OTHER ==
[~2018-07-04] MED LIST: CARBOPLATIN IVPB ONE; DEXAMETHASONE SODIUM PHOSPHATE 20 MG, DIPHENHYDRAMINE 50 MG, RANITIDINE INJECTION 50 MG... IVPB ONE; PACLITAXEL 102 MG in SODIUM CHLORIDE 250 ML IVPB ONE; PALONOSETRON HCL 0.25 MG/5 ML VIAL IVPUSH ONE; SODIUM CHLORIDE IVPB ONE
== END | disposition home or self-care (01) ==
LOC: JRADIR 09:05
PROVIDERS: ATTEND Internal Medicine Hematology & Oncology
PROC: 3E04329 Introduction of Other Anti-infective into Central Vein, Percutaneous Approach (ICD-10-PCS; principal; 2018-07-04)
PROC: 05HY33Z Insertion of Infusion Device into Upper Vein, Percutaneous Approach (ICD-10-PCS; 2018-07-04)
DX: C34.11 Malignant neoplasm of upper lobe, right bronchus or lung (principal)
CPT/HCPCS: 36569; 77001-TC-FY; C1751

== ENCOUNTER 2018-07-06 10:15 | Day surgery (SDC) | payer BC ==
[2018-07-06] MEDS ORDERED: DEXAMETHASONE INJECTION 20 MG, RANITIDINE INJECTION 50 MG, DIPHENHYDRAMINE 50 MG in SOD... IVPB ONE (11:30)
[2018-07-06] MEDS ORDERED: PALONOSETRON HCL 0.25 MG/5 ML VIAL IVPUSH ONE (11:30)
[2018-07-06] MEDS ORDERED: PACLITAXEL 102 MG in SODIUM CHLORIDE 250 ML IVPB ONE (12:00)
[2018-07-06] MEDS ORDERED: SODIUM CHLORIDE IVPB ONE (13:30)
[2018-07-06] MEDS ORDERED: CARBOPLATIN IVPB ONE (13:30)
[2018-07-06 17:26] VITALS: TEMP 97.8
[2018-07-06 17:30] VITALS: BP 116/82; PULSE 88
== END 2018-07-06 13:45 | disposition home or self-care (01) ==
LOC: JONCCHEMO 10:15 → J7W 10:15 → JONCCHEMO 13:45
PROVIDERS: ATTEND Internal Medicine Hematology & Oncology
PROC: 3E04305 Introduction of Other Antineoplastic into Central Vein, Percutaneous Approach (ICD-10-PCS; principal; 2018-07-06)
PROC: 3E043GC Introduction of Other Therapeutic Substance into Central Vein, Percutaneous Approach (ICD-10-PCS; 2018-07-06)
DX: Z51.11 Encounter for antineoplastic chemotherapy (principal); C34.11 Malignant neoplasm of upper lobe, right bronchus or lung
CPT/HCPCS: 96375; 96413; J1100; J2469

== ENCOUNTER 2018-07-12 08:32 | Day surgery (SDC) | payer BC, OTHER ==
[2018-07-12 09:48] LABS: BASO % 0.4 % (0-2.0); EOS % 0.5 % (0-4.5); HEMATOCRIT 34.8 % (35.4-49); HEMOGLOBIN 11.4 GM/dL (11.7-16.9); LYMPH % 14.9 % (8-40); MCH 31.1 pg (25.7-33.7); MCHC 32.9 g/dl (32.0-35.9); MEAN CELL VOLUME 94.6 fl (80-96); MEAN PLT VOLUME 6.5 fl (7.5-11.1); MONO % 10.7 % (3.8-10.2); NEUT % 73.5 % (42.8-82.8); PLATELET COUNT 217 K/MM3 (134-434); RBC 3.67 M/mm3 (4.00-5.60); RDW 20.1 % (11.9-15.9); WHITE BLOOD COUNT 3.5 K/mm3 (4.0-10.0)
[2018-07-12 10:10] LABS: ALBUMIN 3.3 g/dl (3.4-5.0); ALK PHOS 73 U/L (45-117); ANION GAP 8 MMOL/L (8-16); BILIRUBIN,DIRECT 0.1 mg/dL (0.0-0.2); BILIRUBIN,TOTAL 0.5 mg/dL (0.2-1); BLOOD UREA NITROGEN 18 mg/dL (7-18); CHLORIDE 100 mmol/L (98-107); CO2 29 mmol/L (21-32); CREATININE 0.9 mg/dL (0.55-1.3); GLUCOSE,RANDOM 222 mg/dL (74-106); POTASSIUM 4.3 mmol/L (3.5-5.1); SGOT/AST 6 U/L (15-37); SGPT/ALT 31 U/L (13-61); SODIUM 137 mmol/L (136-145); TOT PROT 7.1 g/dl (6.4-8.2)
[2018-07-12] MEDS ORDERED: DEXAMETHASONE INJECTION 20 MG, DIPHENHYDRAMINE 50 MG, RANITIDINE INJECTION 50 MG in SOD... IVPB ONE (12:00)
[2018-07-12] MEDS ORDERED: PALONOSETRON HCL 0.25 MG/5 ML VIAL IVPUSH ONE (12:00)
[2018-07-12] MEDS ORDERED: PACLITAXEL 102 MG in SODIUM CHLORIDE 250 ML IVPB ONE (12:30)
[2018-07-12] MEDS ORDERED: CARBOPLATIN IVPB ONE (13:30)
[2018-07-12] MEDS ORDERED: SODIUM CHLORIDE IVPB ONE (13:30)
[2018-07-12 16:12] VITALS: TEMP 98.1
[2018-07-12 17:14] VITALS: BP 134/74; PULSE 82
== END 2018-07-12 14:45 | disposition home or self-care (01) ==
LOC: JRADIR 08:32 → J7W 10:54 → JRADIR 14:45
PROVIDERS: ATTEND Internal Medicine Hematology & Oncology
PROC: 3E04305 Introduction of Other Antineoplastic into Central Vein, Percutaneous Approach (ICD-10-PCS; principal; 2018-07-12)
PROC: 05H533Z Insertion of Infusion Device into Right Subclavian Vein, Percutaneous Approach (ICD-10-PCS; 2018-07-12)
PROC: B516ZZA Fluoroscopy of Right Subclavian Vein, Guidance (ICD-10-PCS; 2018-07-12)
DX: Z51.11 Encounter for antineoplastic chemotherapy (principal); C34.11 Malignant neoplasm of upper lobe, right bronchus or lung
CPT/HCPCS: 36415; 36569; 75820-TC-FY; 77001-TC-FY; 80048; 80076; 83735; 85025; 96375; 96413; 96417; C1751; J1100; J2469

== ENCOUNTER 2018-07-19 06:30 | Day surgery (SDC) | payer BC, OTHER ==
[2018-07-19] MEDS ORDERED: DEXAMETHASONE SODIUM PHOSPHATE 20 MG, DIPHENHYDRAMINE 50 MG, RANITIDINE INJECTION 50 MG... IVPB ONE (08:00)
[2018-07-19] MEDS ORDERED: PALONOSETRON HCL 0.25 MG/5 ML VIAL IVPUSH ONE (08:00)
[2018-07-19] MEDS ORDERED: PACLITAXEL 102 MG in SODIUM CHLORIDE 250 ML IVPB ONE (08:30)
[2018-07-19] MEDS ORDERED: SODIUM CHLORIDE IVPB ONE (09:30)
[2018-07-19] MEDS ORDERED: CARBOPLATIN IVPB ONE (09:30)
[2018-07-19 10:22] LABS: BASO % 0.2 % (0-2.0); EOS % 0.2 % (0-4.5); HEMATOCRIT 26.6 % (35.4-49); HEMOGLOBIN 9.1 GM/dL (11.7-16.9); LYMPH % 10.5 % (8-40); MCH 32.5 pg (25.7-33.7); MCHC 34.1 g/dl (32.0-35.9); MEAN CELL VOLUME 95.3 fl (80-96); MEAN PLT VOLUME 6.9 fl (7.5-11.1); MONO % 11.8 % (3.8-10.2); NEUT % 77.3 % (42.8-82.8); PLATELET COUNT 164 K/MM3 (134-434); RBC 2.79 M/mm3 (4.00-5.60); WHITE BLOOD COUNT 4.3 K/mm3 (4.0-10.0)
[2018-07-19 10:45] LABS: ALBUMIN 3.4 g/dl (3.4-5.0); ALK PHOS 53 U/L (45-117); ANION GAP 8 MMOL/L (8-16); BILIRUBIN,DIRECT 0.1 mg/dL (0.0-0.2); BILIRUBIN,TOTAL 0.3 mg/dL (0.2-1); BLOOD UREA NITROGEN 16 mg/dL (7-18); CALCIUM 7.7 mg/dL (8.5-10.1); CHLORIDE 100 mmol/L (98-107); CO2 27 mmol/L (21-32); CREATININE 1.1 mg/dL (0.55-1.3); GLUCOSE,RANDOM 213 mg/dL (74-106); MAGNESIUM 2.3 mg/dL (1.8-2.4); POTASSIUM 4.2 mmol/L (3.5-5.1); SGOT/AST 11 U/L (15-37); SGPT/ALT 32 U/L (13-61); SODIUM 135 mmol/L (136-145); TOT PROT 6.6 g/dl (6.4-8.2)
[2018-07-19] MEDS ORDERED: SODIUM CHLORIDE 500 ML IV ONE (12:15)
[2018-07-19 12:24] LABS: ANISOCYTOSIS 1+; MACROCYTOSIS 1+
[2018-07-19 13:28] LABS: PLATELET ESTIMATE ADEQUATE
[2018-07-19 17:13] VITALS: TEMP 97.7
[2018-07-19 17:18] VITALS: BP 83/56; PULSE 81
== END 2018-07-19 15:30 | disposition home or self-care (01) ==
LOC: JRADIR 06:30 → J7W 11:21 → JRADIR 15:30
PROVIDERS: ATTEND Internal Medicine Hematology & Oncology
PROC: 3E04305 Introduction of Other Antineoplastic into Central Vein, Percutaneous Approach (ICD-10-PCS; principal; 2018-07-19)
PROC: 02HV33Z Insertion of Infusion Device into Superior Vena Cava, Percutaneous Approach (ICD-10-PCS; 2018-07-19)
PROC: B518ZZA Fluoroscopy of Superior Vena Cava, Guidance (ICD-10-PCS; 2018-07-19)
DX: Z51.11 Encounter for antineoplastic chemotherapy (principal); C34.11 Malignant neoplasm of upper lobe, right bronchus or lung
CPT/HCPCS: 36415; 36569; 77001-TC-FY; 80048; 80076; 82378; 83735; 85025; 96367; 96375; 96413; 96417; C1751; J2469

== ENCOUNTER 2018-08-08 12:30 | Inpatient (IN) | payer BC ==
[2018-08-08] MEDS ORDERED: ALBUTEROL SO4 2.5/IPRATROPIUM 0.5 INH SOL 3 ML VIAL.NEB. NEB ONE ×2 (12:56→12:59)
--- NOTE | 2018-08-08 13:11 | PDOC ---
History of Present Illness - General History Source: Patient, Family Exam Limitations: No Limitations - History of Present Illness Initial Comments: 08/08/18 13:11 The patient is a 63M with a PMH of squamous cell lung carcinoma, LISA, COPD, paroxysmal afib, SVC syndrome, DVT, HTN who presents to the ER with complaints of SOB, sent by oncologist for concern for infection vs PE. The patient states that he's had worsening PICKETT for 2-3 weeks, with worsening cough and b/l lower extremity edema. He states that he was on his way to his appointment with his oncologist when his oncologist noticed his SOB with cough, found him to have a fever with hypoxia concern for PE vs infection. The patient denies feeling a fever, chills, nausea, vomiting, CP, but admits to SOB and PICKETT with b/l LE edema. <Obey Pa - Last Filed: 08/08/18 16:02> <Marianna Hoyos - Last Filed: 08/08/18 19:36> - General Chief Complaint: Shortness of Breath Stated Complaint: SHORTNESS OF BREATH Time Seen by Provider: 08/08/18 12:49 Past History - Past Medical History Anemia: No Asthma: No Cancer: Yes (BASAL CELL) Cardiac Disorders: No CVA: No COPD: Yes CHF: No Dementia: No Diabetes: No GI Disorders: No Disorders: No HTN: No Hypercholesterolemia: No Liver Disease: No Seizures: No Thyroid Disease: No - Surgical History Abdominal Surgery: Yes (hernia) Cholecystectomy: Yes - Immunization History Immunization Up to Date: No - Suicide/Smoking/Psychosocial Hx Smoking History: Never smoked Have you smoked in the past 12 months: Yes Number of Cigarettes Smoked Daily: 5 'Breaking Loose' booklet given: 04/07/18 Hx Alcohol Use: No Drug/Substance Use Hx: No Substance Use Type: Marijuana Hx Substance Use Treatment: No <Obey Pa - Last Filed: 08/08/18 16:02> <Marianna Hoyos - Last Filed: 08/08/18 19:36> - Past Medical History Allergies/Adverse Reactions: Allergies Allergy/AdvReac Type Severity Reaction Status Date / Time No Known Allergies Allergy Verified 08/08/18 12:47 Home Medications: Ambulatory Orders Albuterol Sulfate [Proventil HFA Inhaler -] 1 - 2 inh PO QID 02/22/18 Acetaminophen [Tylenol .Regular Strength -] 650 mg PO Q6H PRN tablet 04/29/18 Sotalol HCl [Betapace -] 80 mg PO BID tablet 04/29/18 Tiotropium [place] [Spiriva Respimat] 2 puff IH DAILY inhaler 04/29/18 oxyCODONE HCL [Roxicodone -] 5 mg PO Q4H PRN #10 tablet MDD 4 04/29/18 Diltiazem Cd [Cardizem Cd -] 120 mg PO DAILY #30 cap.cd.24h 05/05/18 Enoxaparin [Lovenox -] 90 mg SQ BID #60 disp.syrin 05/05/18 Review of Systems - Review of Systems Able to Perform ROS?: Yes Comments:: 08/08/18 13:40 GENERAL/CONSTITUTIONAL: No fever or chills. No weakness. HEAD, EYES, EARS, NOSE AND THROAT: No change in vision. No ear pain or discharge. No sore throat. CARDIOVASCULAR: No chest pain, palpitations, or lightheadedness. RESPIRATORY: Positive for cough, SOB, PICKETT. No hemoptysis. GASTROINTESTINAL: No nausea, vomiting, diarrhea, constipation, or abdominal pain. GENITOURINARY: No dysuria, frequency, hematuria, or change in urination. MUSCULOSKELETAL: Positive for b/l edema. No joint or muscle swelling or pain. No neck or back pain. SKIN: No rash or lesions. NEUROLOGIC: No headache, numbness, tingling, focal weakness, loss of consciousness, or change in strength/sensation. Is the patient limited [place] proficient: No <Obey Pa - Last Filed: 08/08/18 16:02> *Physical Exam - Vital Signs Last Vital Signs Temp Pulse Resp BP Pulse Ox 99.2 F 95 H 24 H 118/61 90 L 08/08/18 12:45 08/08/18 12:45 08/08/18 12:45 08/08/18 12:45 08/08/18 12:45 - Physical Exam Comments: 08/08/18 13:41 GENERAL: Well developed, well nourished. Awake and alert. No acute distress. HEENT: Normocephalic, atraumatic. Hearing grossly normal. Moist mucous membranes. PERRLA, EOMI. No conjunctival pallor. Sclera are non-icteric. NECK: Supple. Full ROM. No JVD. CARDIOVASCULAR: Regular rate and rhythm. No murmurs, rubs, or gallops. PULMONARY: Mild respiratory distress. Inspiratory and expiratory wheezing on the R side with decreased lung sounds on the L. ABDOMINAL: Soft. Non-tender. Non-distended. No rebound or guarding. GENITOURINARY: No CVA tenderness bilaterally. MUSCULOSKELETAL: Normal range of motion at all joints. No bony deformities or tenderness. EXTREMITIES: No cyanosis. No clubbing. 2-3+ b/l LE edema. No calf tenderness or swelling. SKIN: Warm and dry. Normal capillary refill. No rashes. No jaundice. NEUROLOGICAL: Alert, awake, appropriate. Cranial nerves 2-12 grossly intact. Normal speech. PSYCHIATRIC: Cooperative. Good eye contact. Appropriate mood and affect. <Obey Pa - Last Filed: 08/08/18 16:02> - Vital Signs Last Vital Signs Temp Pulse Resp BP Pulse Ox 99.2 F 94 H 22 H 118/61 100 08/08/18 12:45 08/08/18 14:32 08/08/18 14:32 08/08/18 12:45 08/08/18 14:32 <Marianna Hoyos - Last Filed: 08/08/18 19:36> Moderate Sedation - Procedure Monitoring Vital Signs: Procedure Monitoring Vital Signs Temperature 99.2 F 08/08/18 12:45 Pulse Rate 95 H 08/08/18 12:45 Respiratory Rate 24 H 08/08/18 12:45 Blood Pressure 118/61 08/08/18 12:45 O2 Sat by Pulse Oximetry (%) 90 L 08/08/18 12:45 <Obey Pa - Last Filed: 08/08/18 16:02> - Procedure Monitoring Vital Signs: Procedure Monitoring Vital Signs Temperature 99.2 F 08/08/18 12:45 Pulse Rate 94 H 08/08/18 14:32 Respiratory Rate 22 H 08/08/18 14:32 Blood Pressure 118/61 08/08/18 12:45 O2 Sat by Pulse Oximetry (%) 100 08/08/18 14:32 <Marianna Hoyos - Last Filed: 08/08/18 19:36> Heart Score/ECG Review #1 General ECG Interpretation: Sinus Rhythm, Normal Rate, Normal Intervals, No acute ischemic changes Compared to previous ECG there are: No significant change 08/08/18 13:43 NSR vent rate 90 NH 166 QRS 82 QTc 455 No STD or WING No signs of acute ischemia <Obey Pa - Last Filed: 08/08/18 16:02> ED Treatment Course - LABORATORY CBC & Chemistry Diagram: 08/08/18 12:30 08/08/18 12:30 - RADIOLOGY Radiology Studies Ordered: Category Date Time Status CHEST X-RAY PORTABLE* [RAD] Stat Radiology 08/08/18 12:56 Ordered - Medications Given in the ED: ED Medications Discontinued Medications Generic Name Dose Route Start Last Admin Trade Name Freq PRN Reason Stop Dose Admin Albuterol/Ipratropium 3 amp 08/08/18 12:59 08/08/18 13:00 Duoneb - NEB 08/08/18 13:00 3 amp ONCE ONE Administration <Obey Pa - Last Filed: 08/08/18 16:02> - LABORATORY CBC & Chemistry Diagram: 08/08/18 12:30 08/08/18 12:30 - ADDITIONAL ORDERS Additional order review: Laboratory Results 08/08/18 08/08/18 08/08/18 14:57 14:05 12:30 PT with INR INR PTT (Actin FS) VBG pH 7.43 H POC VBG pCO2 43.3 POC VBG pO2 36.6 Mixed VBG HCO3 28.4 H Sodium Potassium Chloride Carbon Dioxide Anion Gap BUN Creatinine Creat Clearance w eGFR Random Glucose Lactic Acid 1.2 Calcium Total Bilirubin AST ALT Alkaline Phosphatase Troponin I B-Natriuretic Peptide Total Protein Albumin Stool Occult Blood Negative 08/08/18 08/08/18 12:30 12:30 PT with INR 13.40 H INR 1.13 H PTT (Actin FS) 32.6 VBG pH POC VBG pCO2 POC VBG pO2 Mixed VBG HCO3 Sodium 138 Potassium 3.8 Chloride 103 Carbon Dioxide 29 Anion Gap 6 L BUN 6 L Creatinine 0.9 Creat Clearance w eGFR > 60 Random Glucose 105 Lactic Acid Calcium 7.5 L Total Bilirubin 0.3 AST 20 ALT 18 Alkaline Phosphatase 47 Troponin I < 0.02 B-Natriuretic Peptide 293.7 H Total Protein 6.3 L Albumin 2.8 L Stool Occult Blood 08/08/18 12:30 RBC 1.67 L MCV 101.6 H MCHC 33.8 RDW 23.7 H MPV 7.5 Neutrophils % 53.2 D Lymphocytes % 29.9 D Monocytes % 14.1 H Eosinophils % 1.9 D Basophils % 0.9 D - Medications Given in the ED: ED Medications Discontinued Medications Generic Name Dose Route Start Last Admin Trade Name Dominic PRN Reason Stop Dose Admin Acetaminophen 1,000 mg 08/08/18 14:04 08/08/18 14:55 Ofirmev Injection - IVPB 08/08/18 14:05 1,000 mg ONCE ONE Administration Albuterol/Ipratropium 3 amp 08/08/18 12:59 08/08/18 13:00 Duoneb - NEB 08/08/18 13:00 3 amp ONCE ONE Administration Vancomycin HCl 1,000 mg/ 250 mls @ 250 mls/hr 08/08/18 13:16 08/08/18 15:10 Dextrose IVPB 08/08/18 14:15 250 mls/hr ONCE ONE Administration Protocol Piperacillin Sod/Tazobactam 100 mls @ 200 mls/hr 08/08/18 13:16 08/08/18 13: 35 Sod 4.5 gm/ Dextrose IVPB 08/08/18 13:45 200 mls/hr ONCE ONE Administration Protocol <Marianna Hoyos - Last Filed: 08/08/18 19:36> Medical Decision Making - Medical Decision Making 08/08/18 13:48 The patient is a 63M with MMP who presents to the ER with PICKETT concerning for anemia vs PNA (causing sepsis) vs PE. Bedside US reveals air bronchograms on the R lung and diffuse B lines on the L. Concern for PNA. Bedside US of heart reveals good contractility. CBC shows hgb of 5.7. Case d/w Dr. Hathaway who says he is on AC but has no hx of bleeding. Stool occult sent. Will antibiose and flu swab. 08/08/18 14:41 Stool occult negative. Preliminary read of CXR shows R sided consolidation. 08/08/18 16:02 Consent signed for blood. Pt endorsed to Dr. Kruger for ICU admission. Attending endorsed patient for admission. Pt stable, and currently not hypoxic on O2. <Obey Pa - Last Filed: 08/08/18 16:02> *DC/Admit/Observation/Transfer <Obey Pa - Last Filed: 08/08/18 16:02> - Discharge Dispostion Decision to Admit order: Yes Decision to Admit order Date/Time: Decision to Admit Order Category Date Time Status Decision to Admit to Hospital Routine Admission 08/08/18 15:33 Ordered <Marianna Hoyos - Last Filed: 08/08/18 19:36> Diagnosis at time of Disposition: COPD (chronic obstructive pulmonary disease), Squamous cell lung cancer Pneumonia Qualifiers: Pneumonia type: due to unspecified organism Laterality: unspecified laterality Lung location: unspecified part of lung Qualified Code(s): J18.9 - Pneumonia, unspecified organism Acute respiratory failure Qualifiers: Respiratory failure complication: hypoxia Qualified Code(s): J96.01 - Acute respiratory failure with hypoxia Anemia Qualifiers: Anemia type: unspecified type Qualified Code(s): D64.9 - Anemia, unspecified - Discharge Dispostion Condition at time of disposition: Guarded
[2018-08-08] MEDS ORDERED: PIPERACILLIN/TAZOB 4.5 GM 4.5 GM in DEXTROSE 5%-WATER 100 ML IVPB ONE (13:16)
[2018-08-08] MEDS ORDERED: VANCOMYCIN 1,000 MG in DEXTROSE 5%-WATER - 250 ML IVPB ONE (13:16)
[2018-08-08] MEDS ORDERED: PIPERACILLIN/TAZOB 4.5 GM 4.5 GM/100 ML BAG IVPB ONE (13:32)
[2018-08-08 13:36] LABS: BASO % 0.9 % (0-2.0); EOS % 1.9 % (0-4.5); LYMPH % 29.9 % (8-40); MCH 34.3 pg (25.7-33.7); MCHC 33.8 g/dl (32.0-35.9); MEAN CELL VOLUME 101.6 fl (80-96); MEAN PLT VOLUME 7.5 fl (7.5-11.1); MONO % 14.1 % (3.8-10.2); NEUT % 53.2 % (42.8-82.8); PLATELET COUNT 149 K/MM3 (134-434); RBC 1.67 M/mm3 (4.00-5.60); RDW 23.7 % (11.9-15.9); WHITE BLOOD COUNT 3.3 K/mm3 (4.0-10.0)
[2018-08-08 13:44] LABS: HEMOGLOBIN 5.7 GM/dL (11.7-16.9)
[2018-08-08 13:56] LABS: INR 1.13 (0.83-1.09); PROTHROMBIN TIME (PATIENT) 13.4 SEC (9.7-13.0)
[2018-08-08 13:58] LABS: ACTIVATED PTT 32.6 SECONDS (25.2-36.5)
--- NOTE | 2018-08-08 14:02 | PDOC ---
Attending Attestation - Resident Resident Name: Obey Pa - ED Attending Attestation I have performed the following: I have examined & evaluated the patient, The case was reviewed & discussed with the resident, I agree w/resident's findings & plan - HPI HPI: 08/08/18 13:57 The patient is a 63 year old male with a PMH of squamous cell lung carcinoma, LISA, COPD, paroxysmal afib, SVC syndrome, DVT, HTN who presents to the ER sent in by the oncologist for worsening shortness of breath and cough for the past 6 days. Patient admits to dyspnea on exertion and has been requiring more oxygen than normal. Patient is normally on 3L of O2, but over the last few days has needed to increase the O2 to 4L. Patient went to his oncologist, Dr. Hathaway, today who told him to come to the ER to rule out infection vs. PE. Patients O2 sat in the ER is 90. The patient denies chest pain, headache and dizziness. Denies fever, chills, nausea, vomit, diarrhea and constipation. Denies dysuria, frequency, urgency and hematuria. Allergies: NKA Past surgical history: None reported. Social history: No reported alcohol, drug or cigarette use. PCP: Dr. Mensah - Physicial Exam PE: 08/08/18 13:58 General: malaised appearing HEENT: NCAT, PERRL, EOMI, pale conjunctiva, anicteric, dry mucus membranes, clear oropharynx, no oral lesions.. Neck: neck supple, FROM Resp: moderate respiratory distress; tachypneic diffuse inspiratory and expiratory wheezing CVS: RRR, no murmurs, 2+ peripheral pulses throughout, no peripheral edema Abdomen: soft, nontender, no peritoneal signs. Back: nontender, normal inspection and ROM MSK: no edema, MARKS x4, ROM intact. No clubbing or cyanosis. normal bulk and tone. Extremities: no calf tenderness Neuro: alert, awake, no focal neurologic deficits Skin: warm and well perfused, cap refill <2 sec, normal color for ethnicity - Critical Care Time Total Critical Care Time: 60 Critical Care Statement: The care of this patient involved high complexity decision making to prevent further life threatening deterioration of the patient 's condition and/or to evaluate & treat vital organ system(s) failure or risk of failure. - Medical Decision Making 08/08/18 13:59 hpi as documented VS notable for hypoxia, fever. on neb tx/O2 supplementation. DDx SOB: ACS, arrhythmia, sepsis, infection, PE, multifocal pneumonia, acute respiratory failure, pulmonary edema, pleurisy, pneumonia, viral syndrome. Influenza, effusion. anemia, electrolyte/metabolic derangements. Prior notes reviewed, including admissions, discharges and consultations. laboratory results and imaging reviewed, basic labs and lytes wnl, notable for acute anemia noted with Hb <7, guaiac neg, no s/s bleeding acutely; transfuse 2 units PRBC. chronic leukopenia noted, on chemo/lung cancer treatment VBG normal, no acidosis or derangements Influenza_neg CXR_right sided consolidative changes. Cardiac panel_neg trop EKG normal sinus rhythm, no interval abnormalities, narrow QRS, ST and T wave segments and morphology normal. Nonspecific T wave abnormalities ED course: bedside cardiac/lung US with air bronchograms/consolidation on right a/w subpleural fluid, focal B lines on left; known h/o lung ca on left, could also be causing B lines. Vanc/zosyn for empiric pneumonia coverage, severity of sx acute respiratory failure from PNA sepsis workup initiated. duonebs x3 for his wheezing uptitrating on O2 for continued hypoxia. transfuse 2 units PRBC for anemia. ICU cs for higher level of care, dispo: admit to ICU for close hemodynamic and respiratory monitoring. spoke with Dr Veliz team/Dr Prajapati, admitting for continued management, abx, hypoxia and acute respiratory failure. 08/08/18 15:38 08/08/18 15:39 Procedures - Bedside Ultrasound Bedside Ultrasound: Cardiac Remarks: 08/08/18 14:02 POCUS echo and thoracic exam performed and documented/saved, indication includes chest pain/dyspnea. views obtained (PSLA, PSS, A4, SX, bilateral lung [place]). Findings include normal EF on visual estimation, no pericardial or pleural effusion, B lines on Left; right sided subpleural fluid Anterior air bronchograms on Right. RV<LV. Impression: +multifocal pneumonia noted, no acute cardiac findings. 08/08/18 14:05
[2018-08-08] MEDS ORDERED: ACETAMINOPHEN 1000 MG/100 ML VIAL (NON FORMULARY) IVPB ONE (14:04)
[2018-08-08 14:11] LABS: ALBUMIN 2.8 g/dl (3.4-5.0); ALK PHOS 47 U/L (45-117); ANION GAP 6 MMOL/L (8-16); BILIRUBIN,TOTAL 0.3 mg/dL (0.2-1); BLOOD UREA NITROGEN 6 mg/dL (7-18); CALCIUM 7.5 mg/dL (8.5-10.1); CHLORIDE 103 mmol/L (98-107); CO2 29 mmol/L (21-32); CREATININE 0.9 mg/dL (0.55-1.3); GLUCOSE,RANDOM 105 mg/dL (74-106); N-TERMINAL BNP 293.7 pg/ml (5-125); POTASSIUM 3.8 mmol/L (3.5-5.1); SGOT/AST 20 U/L (15-37); SGPT/ALT 18 U/L (13-61); SODIUM 138 mmol/L (136-145); TOT PROT 6.3 g/dl (6.4-8.2)
[2018-08-08] MEDS ORDERED: SODIUM CHLORIDE 1,000 ML IV SCH (14:15)
[2018-08-08] MEDS ORDERED: ACETAMINOPHEN INJECTION 100 ML IVPB ONE (14:27)
[2018-08-08] MEDS ORDERED: VANCOMYCIN 1 GRAM (PRE-DOCKED) 1,000 MG/250 ML BAG IVPB ONE (15:03)
[2018-08-08 15:13] LABS: VENOUS PC02 43.3 mmHg (38-52); VENOUS PH 7.43 (7.32-7.42); VENOUS PO2 36.6 mmHg (28-48)
[2018-08-08 15:53] LABS: MACROCYTOSIS 1+
[2018-08-08] MEDS ORDERED: SODIUM CHLORIDE 0.9% 500 ML INFUS.BAG IV ONE (16:16)
--- NOTE | 2018-08-08 16:30 | CONSULT ---
Consultation: REQUESTING PROVIDER:Dr. Prajapati CONSULT REQUEST: We have been asked to medically evaluate this patient for ICU admission. HISTORY OF PRESENT ILLNESS: 63 yo M with pmhx of squamous cell carcinoma (s/p taxol therapy last treatment 3 weeks ago) , LISA, COPD( on 3L @ home), paroxysmal afib (on lovenox) , SVC syndrome presents to ER with two week history of shortness of breath and productive cough. He states cough is productive of green sputum. He has had fevers at home tmax 103 treated with Tylenol. He states that he went today to see Dr. Hathaway his oncologist and on the way up to his office became extremely short of breath and diaphoretic. His shortness of breath has also worsened in past to weeks initially with exertion but today with minimal effort. In ER he was found to be anemic with Hgb of 5.7 and 2 units PRBC ordered. He was also found to hypoxic with O2 sats dropping into the 70's requiring increased Fio2. At the time I am seeing him his is on dcf-dg-hqqegola saturating in 90's. CXR reveals right sided consolidation. Patient also endorses nausea but no vomiting. Denies CP,MACKEY, hemoptysis ,abdominal pain, or palpitations. REVIEW OF SYSTEMS: CONSTITUTIONAL: fever, chills, diaphoresis, generalized weakness, malaise Absent: , loss of appetite, weight change HEENT: Absent: rhinorrhea, nasal congestion, throat pain, throat swelling, difficulty swallowing, mouth swelling, ear pain, eye pain, visual changes CARDIOVASCULAR: Absent: chest pain, syncope, palpitations, irregular heart rate, lightheadedness , peripheral edema RESPIRATORY: cough, shortness of breath, dyspnea with exertion Absent: , orthopnea, wheezing, stridor, hemoptysis GASTROINTESTINAL: nausea Absent: abdominal pain, abdominal distension,, vomiting, diarrhea, constipation , melena, hematochezia GENITOURINARY: Absent: dysuria, frequency, urgency, hesitancy, hematuria, flank pain, genital pain MUSCULOSKELETAL: Absent: myalgia, arthralgia, joint swelling, back pain, neck pain SKIN: Absent: rash, itching, pallor HEMATOLOGIC/IMMUNOLOGIC: Absent: easy bleeding, easy bruising, lymphadenopathy, frequent infections ENDOCRINE: Absent: unexplained weight gain, unexplained weight loss, heat intolerance, cold intolerance NEUROLOGIC: Absent: headache, focal weakness or paresthesias, dizziness, unsteady gait, seizure, mental status changes, bladder or bowel incontinence PSYCHIATRIC: Absent: anxiety, depression, suicidal or homicidal ideation, hallucinations. PHYSICAL EXAMINATION Vital Signs - 24 hr 08/08/18 08/08/18 12:45 14:32 Temperature 99.2 F Pulse Rate 95 H Pulse Rate [ 94 H Apical] Respiratory 24 H 22 H Rate Blood Pressure 118/61 O2 Sat by Pulse 90 L 100 Oximetry (%) GENERAL: AAOx3, mild distress. HEAD: NCAT EYES: PERRLA,EOMI, sclera anicteric, conjunctiva clear. No lid lag. EARS, NOSE, THROAT: dry mucous membranes. NECK: Normal ROM, supple without lymphadenopathy, JVD, or masses. LUNGS: Diminished breath sounds > R base. scattered wheezes, and no crackles. No accessory muscle use. HEART: tachycardic, normal S1 and S2 without murmur, rub or gallop. ABDOMEN: Soft, NTND, NABS, no guarding, no rebound, no masses. No hepatomegaly or splenomegaly. MUSCULOSKELETAL: Normal range of motion at all joints. No bony deformities or tenderness. No CVA tenderness. LOWER EXTREMITIES: 2+ pulses, warm, well-perfused. No calf tenderness. 1+ edema on left LE and trace on RLE NEUROLOGICAL: Cranial nerves II-XII intact. Normal speech. gait not observed. PSYCHIATRIC: Cooperative. Good eye contact. Appropriate mood and affect. SKIN: Warm, dry, normal turgor, no rashes or lesions noted. Laboratory Results - last 24 hr 08/08/18 08/08/18 08/08/18 12:30 12:30 12:30 WBC 3.3 L RBC 1.67 L Hgb 5.7 L* Hct 17.0 L D MCV 101.6 H MCH 34.3 H MCHC 33.8 RDW 23.7 H Plt Count 149 MPV 7.5 Absolute Neuts (auto) 1.8 Neutrophils % 53.2 D Lymphocytes % 29.9 D Monocytes % 14.1 H Eosinophils % 1.9 D Basophils % 0.9 D Nucleated RBC % 1 H PT with INR 13.40 H INR 1.13 H PTT (Actin FS) 32.6 VBG pH POC VBG pCO2 POC VBG pO2 Mixed VBG HCO3 Sodium 138 Potassium 3.8 Chloride 103 Carbon Dioxide 29 Anion Gap 6 L BUN 6 L Creatinine 0.9 Creat Clearance w eGFR > 60 Random Glucose 105 Lactic Acid Calcium 7.5 L Total Bilirubin 0.3 AST 20 ALT 18 Alkaline Phosphatase 47 Troponin I < 0.02 B-Natriuretic Peptide 293.7 H Total Protein 6.3 L Albumin 2.8 L Stool Occult Blood Influenza A (Rapid) Influenza B (Rapid) 08/08/18 08/08/18 08/08/18 12:30 14:05 14:57 WBC RBC Hgb Hct MCV MCH MCHC RDW Plt Count MPV Absolute Neuts (auto) Neutrophils % Lymphocytes % Monocytes % Eosinophils % Basophils % Nucleated RBC % PT with INR INR PTT (Actin FS) VBG pH 7.43 H POC VBG pCO2 43.3 POC VBG pO2 36.6 Mixed VBG HCO3 28.4 H Sodium Potassium Chloride Carbon Dioxide Anion Gap BUN Creatinine Creat Clearance w eGFR Random Glucose Lactic Acid 1.2 Calcium Total Bilirubin AST ALT Alkaline Phosphatase Troponin I B-Natriuretic Peptide Total Protein Albumin Stool Occult Blood Negative Influenza A (Rapid) Influenza B (Rapid) 08/08/18 15:00 WBC RBC Hgb Hct MCV MCH MCHC RDW Plt Count MPV Absolute Neuts (auto) Neutrophils % Lymphocytes % Monocytes % Eosinophils % Basophils % Nucleated RBC % PT with INR INR PTT (Actin FS) VBG pH POC VBG pCO2 POC VBG pO2 Mixed VBG HCO3 Sodium Potassium Chloride Carbon Dioxide Anion Gap BUN Creatinine Creat Clearance w eGFR Random Glucose Lactic Acid Calcium Total Bilirubin AST ALT Alkaline Phosphatase Troponin I B-Natriuretic Peptide Total Protein Albumin Stool Occult Blood Influenza A (Rapid) Negative Influenza B (Rapid) Negative Active Medications Generic Name Dose Route Start Last Admin Trade Name Freq PRN Reason Stop Dose Admin Sodium Chloride 1,000 mls @ 250 mls/hr 08/08/18 14:15 08/08/18 14:55 Normal Saline - IV 250 mls/hr ASDIR ALONDRA Administration ASSESSMENT/PLAN: 63 yo M with pmhx of squamous cell carcinoma (s/p taxol therapy last treatment 3 weeks ago) , LISA, COPD( on 3L @ home), paroxysmal afib (on lovenox) , SVC syndrome presents to ER with two week history of shortness of breath and productive cough admitted to ICU for acute hypoxic respiratory failure 2/2 PNA. NEURO: * awake and alert * tylenol for pain and fever. * monitor for acute change in mental status. CV: * Can continue Cardizem and sotalol for P. Afib. * Continue Lovenox * Maintain MAP >65 PULM: * CXR shows right sided consolidation * currently on non-rebreather * CTA to r/o PE pending. * BD TX with albuterol PRN. * Maintain Spo2 >90% HEME/ONC: * history of Squamous Ca s/p chemo * Followed by Mag/Katelin * Hgb 5.7 will transfuse 2 units. * repeat h/h after second unit * normal transfusion thresholds. GI: * No active issues. * complaining of nausea- will give Zofran. ID: * Consolidation seen on CXR * Vanco/ Zosyn given in ED * ID consulted. FEN: * NS @ 250ml/hr * hypocalcemia with Ca 7.3 corrected * regular diet. Dispo: We will continue to follow the patient in ICU. Thank you for this consultative opportunity. Visit type - Emergency Visit Emergency Visit: Yes Care time: The patient presented to the Emergency Department on the above date and was hospitalized for further evaluation of their emergent condition. - New Patient This patient is new to me today: Yes Date on this admission: 08/08/18 - Critical Care Critical Care patient: Yes Total Critical Care Time (in minutes): 45 Critical Care Statement: The care of this patient involved high complexity decision making to prevent further life threatening deterioration of the patient 's condition and/or to evaluate & treat vital organ system(s) failure or risk of failure.
[2018-08-08] MEDS ORDERED: CALCIUM GLUCONATE 10% - 1,000 MG/10 ML VIAL IVPB ONE (16:32)
[2018-08-08] MEDS ORDERED: SODIUM CHLORIDE 500 ML IV STA (16:36)
--- NOTE | 2018-08-08 17:28 | HP ---
Admitting History and Physical - Admission Chief Complaint: came in for sob and fever. he reports two episodes of fever at home of 101 History of Present Illness: The patient is a 63 year old male with a PMH of squamous cell lung carcinoma, LISA, COPD, paroxysmal afib, SVC syndrome, DVT, HTN who presents to the ER sent in by the oncologist for worsening shortness of breath and cough for the past 6 days. Patient admits to dyspnea on exertion and has been requiring more oxygen than normal. Patient is normally on 3L of O2, but over the last few days has needed to increase the O2 to 4L. Patient went to his oncologist, Dr. Brooks, today who told him to come to the ER to rule out infection vs. PE. Patients O2 sat in the ER is 90. at dr brooks office patient was too weak to walk and sob and sent to ER The patient denies chest pain, headache and dizziness. Denies fever, chills, nausea, vomit, diarrhea and constipation. Denies dysuria, frequency, urgency and hematuria. Allergies: NKA Past surgical history: None reported. Social history: No reported alcohol, drug or cigarette use. PCP: Dr. Mensah in ER h/h .01/18 started on iv abx History Source: Patient, Medical Record - Past Medical History Cardiovascular: Yes: AFIB, HTN, Other (smoker with lung mass) Pulmonary: Yes: COPD - Past Surgical History Past Surgical History: Yes: Cholecystectomy, Hernia Repair - Smoking History Smoking history: Never smoked Have you smoked in the past 12 months: Yes Aproximately how many cigarettes per day: 5 - Alcohol/Substance Use Hx Alcohol Use: No - Social History ADL: Independent History of Recent Travel: No Home Medications - Allergies Allergies/Adverse Reactions: Allergies Allergy/AdvReac Type Severity Reaction Status Date / Time No Known Allergies Allergy Verified 08/08/18 12:47 - Home Medications Home Medications: Ambulatory Orders Albuterol Sulfate [Proventil HFA Inhaler -] 1 - 2 inh PO QID 02/22/18 Acetaminophen [Tylenol .Regular Strength -] 650 mg PO Q6H PRN tablet 04/29/18 Sotalol HCl [Betapace -] 80 mg PO BID tablet 04/29/18 Tiotropium [place] [Spiriva Respimat] 2 puff IH DAILY inhaler 04/29/18 oxyCODONE HCL [Roxicodone -] 5 mg PO Q4H PRN #10 tablet MDD 4 04/29/18 Diltiazem Cd [Cardizem Cd -] 120 mg PO DAILY #30 cap.cd.24h 05/05/18 Enoxaparin [Lovenox -] 90 mg SQ BID #60 disp.syrin 05/05/18 Family Disease History - Family Disease History Family Disease History: Diabetes: Brother ( with lung cancer) Review of Systems - Review of Systems Respiratory: reports: Cough, SOB Physical Examination Vital Signs: Vital Signs Temperature 99.2 F 08/08/18 12:45 Pulse Rate 84 08/08/18 16:18 Respiratory Rate 20 08/08/18 16:18 Blood Pressure 88/61 L 08/08/18 16:18 O2 Sat by Pulse Oximetry (%) 100 08/08/18 16:18 Constitutional: Yes: Calm, Other Cardiovascular: Yes: Regular Rate and Rhythm, S1, S2 Respiratory: Yes: Diminished Gastrointestinal: Yes: Normal Bowel Sounds, Soft Edema: Yes Labs: CBC, BMP 08/08/18 12:30 08/08/18 12:30 Problem List - Problems (1) Anemia Assessment/Plan: prbc cbc q8 hr stool coccult heme gi iron panel Code(s): D64.9 - ANEMIA, UNSPECIFIED (2) Acute respiratory failure Assessment/Plan: oxygen icu montioring pulm consult neulizer abx Code(s): J96.00 - ACUTE RESPIRATORY FAILURE, UNSP W HYPOXIA OR HYPERCAPNIA (3) Pneumonia Assessment/Plan: [facility] Code(s): J18.9 - PNEUMONIA, UNSPECIFIED ORGANISM Qualifiers: Pneumonia type: due to Mycoplasma pneumoniae (4) Afib Assessment/Plan: given low BP hold cardisem and sotalol Code(s): I48.91 - UNSPECIFIED ATRIAL FIBRILLATION
[2018-08-08 17:36] VITALS: BMI 28.6
--- NOTE | 2018-08-08 17:57 | PN ---
Progress Note (short form) - Note Progress Note: ID CONSULT DICTATED NEAR SYNCOPE
--- NOTE | 2018-08-08 18:00 | PN ---
Progress Note (short form) - Note Progress Note: ID CONSULT DICTATED NEAR SYNCOPE SYMPTOMATIC ANEMIA LUNG CA R/O PNEUMONIA LEUKOPENIA COPD PENDING SEPSIS WORKUP EMPIRIC VANCOMYCIN/ CEFEPIME CRITICAL CARE TIME 35MIN
[2018-08-08] MEDS ORDERED: CEFEPIME 2 GM in DEXTROSE 5%-WATER 100 ML IVPB SCH (18:15)
[2018-08-08] MEDS ORDERED: CEFEPIME 2 GM in DEXTROSE 5%-WATER - 50 ML IVPB SCH (18:15)
--- NOTE | 2018-08-08 18:50 | CONS ---
INFECTIOUS DISEASE CONSULTATION DATE OF CONSULTATION: 08/08/2018 The patient is a 63-year-old male who is evaluated for sepsis. He has a history of squamous cell carcinoma of the lung. The patient recently completed a course of chemotherapy and radiation therapy. He was seen at his oncologist's office today where he was very weak. He appeared short of breath and was coughing. The patient reported a 2-3 week history of worsening shortness of breath and cough productive of whitish sputum, also increasing lower extremity edema. He was unsteady on his feet and had a near-syncopal episode. The patient was advised to go to the emergency room for further evaluation. Upon evaluation, the patient was noted to have a hemoglobin of 5.7. He was also noted to have an O2 saturation of 90%. He was transferred to the intensive care unit where he will receive packed red blood cells. At the present time, he complains of shortness of breath, cough productive of whitish sputum. He denies any hemoptysis. No complaints of chest pain. He denies any fever or chills. Patient is noted to have a low-grade fever on admission. Patient denies any ill contacts, lives at home with his . Received influenza vaccine. No recent travel. PAST MEDICAL HISTORY: Positive for squamous cell CA of the lung; history of superior vena cava syndrome and DVT; COPD, oxygen dependent; obstructive sleep apnea; hypertension; paroxysmal atrial fibrillation. ALLERGIES: No known allergies. MEDICATIONS: At the present time include Tylenol, albuterol, vancomycin, Zosyn. SOCIAL HISTORY: He resides at home. Non-smoker, non-drinker. SYSTEMS REVIEW: Neurologic: Positive for near syncope. No seizure activity or focal weakness. Cardiac: Negative chest pain and palpitations. Respiratory: As per HPI. Gastrointestinal: Negative vomiting or diarrhea. Genitourinary: Negative for urinary tract infection. LABORATORY DATA: White count 3.3; neutrophils 53, lymphocytes 29, monocytes 14, eosinophils 2; hematocrit 17.0; platelet count 149. Creatinine 0.9. Total bilirubin 0.3. Alkaline phosphatase 47, AST 20. Absolute neutrophil count 1.8. Influenza swab negative. Chest x-ray shows increased markings, right lung field. PHYSICAL EXAMINATION: General: He is awake and alert. He is short of breath at rest on nasal cannula O2. Vital Signs: Temperature 99.2; blood pressure 118/61; pulse 95, regular; respirations 24 per minute. HEENT: Sclerae are anicteric. Heart: Sounds S1, S2. Lungs: Bilateral rhonchi. No wheezing or rales. Abdomen: Soft. No tenderness elicited. No mass, rebound, rigidity. Extremities: Edema 1+. Negative Homans sign. IMPRESSION: 1. Near syncope. 2. Symptomatic anemia. 3. Lung cancer, rule out pneumonia. 4. Leukopenia. 5. Chronic obstructive pulmonary disease exacerbation. Await cultures. Obtain sputum culture, Legionella and pneumococcal antigens. Transfuse blood products. ICU monitoring. Pending sepsis workup, empiric antibiotic coverage with vancomycin and cefepime. Prognosis is guarded. CRITICAL CARE TIME SPENT: Thirty-five minutes. Thank you for the kind referral. ISABELLA PLATT M.D. [id number]
[2018-08-08] MEDS: SODIUM CHLORIDE 1,000 ML IV SCH (18:56)
--- NOTE | 2018-08-08 19:44 | CONSULT ---
Consult - text type - Consultation Consultation Note: Patient seen and examined The patient is a 63 year old male with a PMH of squamous cell lung carcinoma, LISA, COPD, paroxysmal afib, SVC syndrome, DVT, HTN who presents to the ER for worsening shortness of breath and cough for the past 6 days. Patient admits to dyspnea on exertion and has been requiring more oxygen than normal. Patient is normally on 3L of O2, but over the last few days has needed to increase the O2 to 4L. The patient denies chest pain, headache and dizziness. Denies fever, chills, nausea, vomit, diarrhea and constipation. Denies dysuria, frequency, urgency and hematuria. found to be severly anemic Allergies: NKA Past surgical history: None reported. - Past Medical History Cardiovascular: Yes: AFIB, HTN, Other (smoker with lung mass) Pulmonary: Yes: COPD - Past Surgical History Past Surgical History: Yes: Cholecystectomy, Hernia Repair - Smoking History Smoking history: Never smoked - Social History ADL: Independent - Allergies Allergies/Adverse Reactions: Allergies Allergy/AdvReac Type Severity Reaction Status Date / Time No Known Allergies Allergy Verified 08/08/18 12:47 - Home Medications Home Medications: Ambulatory Orders Albuterol Sulfate [Proventil HFA Inhaler -] 1 - 2 inh PO QID 02/22/18 Acetaminophen [Tylenol .Regular Strength -] 650 mg PO Q6H PRN tablet 04/29/18 Sotalol HCl [Betapace -] 80 mg PO BID tablet 04/29/18 Tiotropium [place] [Spiriva Respimat] 2 puff IH DAILY inhaler 04/29/18 oxyCODONE HCL [Roxicodone -] 5 mg PO Q4H PRN #10 tablet MDD 4 04/29/18 Diltiazem Cd [Cardizem Cd -] 120 mg PO DAILY #30 cap.cd.24h 05/05/18 Enoxaparin [Lovenox -] 90 mg SQ BID #60 disp.syrin 05/05/18 Family Disease History - Family Disease History Family Disease History: Diabetes: Brother ( with lung cancer) Physical Examination Vital Signs: Last Vital Signs Temp Pulse Resp BP Pulse Ox 98 F 85 15 94/68 100 08/08/18 18:33 08/08/18 18:33 08/08/18 19:28 08/08/18 18:33 08/08/18 19:28 Constitutional: Yes: Calm, Other Cardiovascular: Yes: Regular Rate and Rhythm, S1, S2 Respiratory: Yes: Diminished Gastrointestinal: Yes: Normal Bowel Sounds, Soft Edema: Yes Labs/Meds reviewed Active Medications Generic Name Dose Route Start Last Admin Trade Name Freq PRN Reason Stop Dose Admin Albuterol Sulfate 2 puff 08/08/18 22:00 Ventolin Hfa Inhaler - IH QID ALONDRA Chlorhexidine Gluconate 1 applic 08/08/18 22:00 Hibiclens For Decolonization - TP HS ALONDRA Enoxaparin Sodium 90 mg 08/08/18 22:00 Lovenox - SQ BID ALONDRA Sodium Chloride 1,000 mls @ 125 mls/hr 08/08/18 16:37 08/08/18 18:56 Normal Saline - IV 125 mls/hr ASDIR ALONDRA Administration Vancomycin HCl 1,000 mg in 250 mls @ 166.667 mls/hr 08/09/18 03:00 Vancomycin (Pre-Docked) IVPB Q12H ALONDRA Protocol Cefepime HCl 2 gm/ Dextrose 100 mls @ 200 mls/hr 08/08/18 18:15 IVPB Q8H-IV ALONDRA Protocol Famotidine/Sodium Chloride 20 mg in 50 mls @ 100 mls/hr 08/08/18 22:00 Pepcid 20 Mg Premixed Ivpb - IVPB BID ALONDRA Mupirocin 1 applic 08/08/18 22:00 Bactroban Ointment (For Decolonization) - NS 08/13/18 21:59 BID ALONDRA Tiotropium [place] 2 puff 08/09/18 10:00 Spiriva Respimat IH DAILY ALONDRA A/P 63-year-old male with a history of cigarette smoking, COPD, hypertension, recently diagnosed atrial fibrillation (on Eliquis) and known lung nodule for [address] imaging shows large central right upper lobe mass causing narrowing of SVC. Marked narrowing of distal SVC. path c/w --squamous cell carcinoma-- PDL1-0% stage III based on preliminary staging---needs PET-CT to complete staging. MRI brain/bone scan --negative Chemo/RT --carbo/taxol weekly with RT completed Severe anemia--chemotherapy induced r/o bleeding transfusion support Pneumonia? Antibiotics per ID SVC thrombosis --on lovenox
[2018-08-08 19:54] LABS: URINE APPEARANCE SLCLOUDY; URINE BILIRUBIN NEGATIVE (<2.0 mg/dL); URINE COLOR YELLOW; URINE GLUCOSE (UA) NEGATIVE (NEGATIVE); URINE KETONE NEGATIVE (NEGATIVE); URINE LEUK ESTERASE NEGATIVE (NEGATIVE); URINE NITRITE POSITIVE (NEGATIVE); URINE PROTEIN NEGATIVE (NEGATIVE); URINE UROBILINOGEN NEGATIVE mg/dL (0.2-1.0)
[2018-08-08 20:08] LABS: EPI CELLS RARE /HPF (FEW); URINE BACTERIA RARE /hpf (NONE SEEN); URINE MUCUS RARE
[2018-08-08] MEDS ORDERED: PT OWN MED DRAWER 7, Y5N ONE (20:15)
[2018-08-08] MEDS ORDERED: MELATONIN 5 MG TABLETS PO ONE (20:42)
[2018-08-08] MEDS: CEFEPIME 2 GM in DEXTROSE 5%-WATER 100 ML IVPB SCH (20:50)
[2018-08-08] MEDS: MUPIROCIN 2% TOPICAL OINTMENT FOR DECOLONIZATION NS SCH (21:29)
[2018-08-08] MEDS: ENOXAPARIN NA (PORCINE) 100 MG/1 ML DISP.SYRIN SQ SCH (21:31)
[2018-08-08] MEDS: CHLORHEXIDINE GLUCONATE 4% CLEANSER FOR DECOLONIZATION TP SCH (21:31)
[2018-08-08] MEDS: FAMOTIDINE 20 MG/50 ML IVPB 20 MG/50 ML MG IVPB SCH (21:32)
[2018-08-09] MEDS: CEFEPIME 2 GM in DEXTROSE 5%-WATER 100 ML IVPB SCH ×3 (01:05→17:54)
[2018-08-09 01:08] LABS: BASO % 0.5 % (0-2.0); EOS % 2.3 % (0-4.5); HEMATOCRIT 20.2 % (35.4-49); HEMOGLOBIN 7.1 GM/dL (11.7-16.9); LYMPH % 31.3 % (8-40); MCH 33.9 pg (25.7-33.7); MCHC 35.4 g/dl (32.0-35.9); MEAN CELL VOLUME 95.8 fl (80-96); MEAN PLT VOLUME 7.1 fl (7.5-11.1); MONO % 17.8 % (3.8-10.2); NEUT % 48.1 % (42.8-82.8); PLATELET COUNT 144 K/MM3 (134-434); RBC 2.11 M/mm3 (4.00-5.60); RDW 24.2 % (11.9-15.9); WHITE BLOOD COUNT 3.7 K/mm3 (4.0-10.0)
[2018-08-09] MEDS: oxyCODONE HCL 5 MG TABLET PO PRN ×3 (01:42→21:32)
[2018-08-09] MEDS: VANCOMYCIN 1 GRAM (PRE-DOCKED) 1,000 MG/250 ML BAG IVPB SCH ×2 (02:07→14:03)
[2018-08-09 03:09] LABS: ANISOCYTOSIS 1+; MACROCYTOSIS 0; PLATELET ESTIMATE NORMAL
[2018-08-09 06:19] LABS: BASO % 0.3 % (0-2.0); EOS % 2.3 % (0-4.5); HEMATOCRIT 19.2 % (35.4-49); LYMPH % 30.1 % (8-40); MCH 33.2 pg (25.7-33.7); MEAN CELL VOLUME 94.9 fl (80-96); MEAN PLT VOLUME 7.1 fl (7.5-11.1); NEUT % 51.3 % (42.8-82.8); PLATELET COUNT 152 K/MM3 (134-434); RBC 2.02 M/mm3 (4.00-5.60); RDW 24.3 % (11.9-15.9); WHITE BLOOD COUNT 2.8 K/mm3 (4.0-10.0)
[2018-08-09 06:35] LABS: HEMOGLOBIN 6.7 GM/dL (11.7-16.9)
[2018-08-09 06:44] LABS: INR 1.13 (0.83-1.09); PROTHROMBIN TIME (PATIENT) 13.3 SEC (9.7-13.0)
[2018-08-09 07:19] LABS: ALBUMIN 2.4 g/dl (3.4-5.0); ANION GAP 5 MMOL/L (8-16); BILIRUBIN,TOTAL 0.3 mg/dL (0.2-1); BLOOD UREA NITROGEN 6 mg/dL (7-18); CALCIUM 7.2 mg/dL (8.5-10.1); CHLORIDE 106 mmol/L (98-107); CO2 30 mmol/L (21-32); CREATININE 0.7 mg/dL (0.55-1.3); GLUCOSE,RANDOM 91 mg/dL (74-106); MAGNESIUM 1.9 mg/dL (1.8-2.4); PHOSPHOROUS 3.7 mg/dL (2.5-4.9); POTASSIUM 3.3 mmol/L (3.5-5.1); SGOT/AST 11 U/L (15-37); SGPT/ALT 14 U/L (13-61); SODIUM 140 mmol/L (136-145); TOT PROT 5.4 g/dl (6.4-8.2)
[2018-08-09 07:20] LABS: ALK PHOS 40 U/L (45-117)
[2018-08-09] MEDS ORDERED: POTASSIUM CHLORIDE TABS 20 MEQ TABLET.ER (FP) PO ONE (07:27)
--- NOTE | 2018-08-09 07:49 | PN ---
Progress Note (short form) - Note Progress Note: Patient seen and examined Complains of chest pain and SOB SOB improved from admission Cough with clear sputum production Last Vital Signs Temp Pulse Resp BP Pulse Ox 98.4 F 86 18 101/69 100 08/09/18 06:00 08/09/18 06:00 08/09/18 06:00 08/09/18 06:00 08/08/18 19:28 HEENT: ROSARIO, EOM Intact Oropharynx: No thrush, No mucositis, edentulous Neck: Supple Nodes: Without adenopathy Cor: RSR, No murmurs, No gallops Lungs:rhonchi Abd: Soft, Normal bowel sounds, No organomegaly Ext:No significant edema Skin: No rashes, Integument intact Clubbing CBC, BMP 08/09/18 05:30 08/09/18 05:30 Current Medications Generic Name Dose Route Start Last Admin Trade Name Freq PRN Reason Stop Dose Admin Albuterol Sulfate 2 puff 08/08/18 22:00 Ventolin Hfa Inhaler - IH QID [facility] Chlorhexidine Gluconate 1 applic 08/08/18 22:00 08/08/18 21:31 Hibiclens For Decolonization - TP 1 applic HS [facility] Administration Enoxaparin Sodium 90 mg 08/08/18 22:00 08/08/18 21:31 Lovenox - SQ 90 mg BID [facility] Administration Sodium Chloride 1,000 mls @ 125 mls/hr 08/08/18 16:37 08/08/18 18:56 Normal Saline - IV 125 mls/hr ASDIR [facility] Administration Vancomycin HCl 1,000 mg in 250 mls @ 166.667 mls/hr 08/09/18 03:00 08/09/18 02:07 Vancomycin (Pre-Docked) IVPB 166.667 mls/hr Q12H [facility] Administration Protocol Cefepime HCl 2 gm/ Dextrose 100 mls @ 200 mls/hr 08/08/18 18:15 08/09/18 01: 05 IVPB 200 mls/hr Q8H-IV [facility] Administration Protocol Famotidine/Sodium Chloride 20 mg in 50 mls @ 100 mls/hr 08/08/18 22:00 21:32 Pepcid 20 Mg Premixed Ivpb - IVPB 100 mls/hr BID [facility] Administration Mupirocin 1 applic 08/08/18 22:00 08/08/18 21:29 Bactroban Ointment (For Decolonization) - NS 08/13/18 21:59 1 adh.patch BID [facility] Administration Oxycodone HCl 5 mg 08/09/18 01:08 08/09/18 01:42 Roxicodone - PO 5 mg Q4H PRN Administration PAIN LEVEL 4 - 6 Tiotropium [place] 2 puff 08/09/18 10:00 Spiriva Respimat IH DAILY [facility] Impression: Squamous cell ca of lung -- s/p RT and weekly chemotherapy with taxol and carboplatinum SVC syndrome -- s/p stent placement Anemia - hematest negative stool -- ? blood loss , doubt hemolysis , myelosuppression from RT/Chemotherapy Neutropenia - ? secondary to infection vs treatment vs. combination Left shift WBC series with normoblasts- ?? secondary to hypoxemia, sepsis, , myelopthesis Probable pneumonitis- antibiotics per ID PlAN LDH, [place], RETIC, haptoglobin transfuse packed cells monitor CBC Correct electrolytes Ab per ID Chest CT when feasible
[2018-08-09] MEDS: SODIUM CHLORIDE 1,000 ML IV SCH (07:52)
[2018-08-09 08:49] LABS: RETICULOCYTES 5.09 % (0.5-1.5)
[2018-08-09 08:55] LABS: LDH 290 U/L (87-246)
--- NOTE | 2018-08-09 08:58 | PN ---
Progress Note, Physician - Current Medication List Current Medications: Active Medications Albuterol Sulfate (Ventolin Hfa Inhaler -) 2 puff IH QID [facility] Chlorhexidine Gluconate (Hibiclens For Decolonization -) 1 applic TP HS [facility] Last Admin: 08/08/18 21:31 Dose: 1 applic Enoxaparin Sodium (Lovenox -) 90 mg SQ BID [facility] Last Admin: 08/08/18 21:31 Dose: 90 mg Sodium Chloride (Normal Saline -) 1,000 mls @ 125 mls/hr IV ASDIR [facility] Last Admin: 08/09/18 07:52 Dose: 125 mls/hr Vancomycin HCl (Vancomycin (Pre-Docked)) 1,000 mg in 250 mls @ 166.667 mls/hr IVPB Q12H [facility]; Protocol Last Admin: 08/09/18 02:07 Dose: 166.667 mls/hr Cefepime HCl 2 gm/ Dextrose 100 mls @ 200 mls/hr IVPB Q8H-IV [facility]; Protocol Last Admin: 08/09/18 01:05 Dose: 200 mls/hr Famotidine/Sodium Chloride (Pepcid 20 Mg Premixed Ivpb -) 20 mg in 50 mls @ 100 mls/hr IVPB BID [facility] Last Admin: 08/08/18 21:32 Dose: 100 mls/hr Mupirocin (Bactroban Ointment (For Decolonization) -) 1 applic NS BID [facility] Stop: 08/13/18 21:59 Last Admin: 08/08/18 21:29 Dose: 1 adh.patch Oxycodone HCl (Roxicodone -) 5 mg PO Q4H PRN PRN Reason: PAIN LEVEL 4 - 6 Last Admin: 08/09/18 01:42 Dose: 5 mg Tiotropium [place] (Spiriva Respimat) 2 puff IH DAILY [facility] - Objective Vital Signs: Vital Signs Temperature 98.4 F 08/09/18 06:00 Pulse Rate 86 08/09/18 06:00 Respiratory Rate 18 08/09/18 06:00 Blood Pressure 101/69 08/09/18 06:00 O2 Sat by Pulse Oximetry (%) 100 08/08/18 19:28 Cardiovascular: Yes: S1, S2 Respiratory: Yes: On Nasal O2, Rhonchi Gastrointestinal: Yes: Normal Bowel Sounds, Soft Labs: CBC, BMP 02/05/19 05:30 08/09/18 05:30 INR, PTT INR 1.13 (0.83-1.09) H 08/09/18 05:30 Problem List - Problems (1) Acute respiratory failure Assessment/Plan: iv abx nebs pulm and id on board Code(s): J96.00 - ACUTE RESPIRATORY FAILURE, UNSP W HYPOXIA OR HYPERCAPNIA Qualifiers: Respiratory failure complication: hypoxia Qualified Code(s): J96.01 - Acute respiratory failure with hypoxia (2) Anemia Assessment/Plan: transfuse prbc hem w/u per dr brooks Code(s): D64.9 - ANEMIA, UNSPECIFIED Qualifiers: Anemia type: unspecified type Qualified Code(s): D64.9 - Anemia, unspecified (3) COPD (chronic obstructive pulmonary disease) Assessment/Plan: nebs Code(s): J44.9 - CHRONIC OBSTRUCTIVE PULMONARY DISEASE, UNSPECIFIED Qualifiers: (4) Pneumonia Assessment/Plan: IV abx Ct of chest Code(s): J18.9 - PNEUMONIA, UNSPECIFIED ORGANISM Qualifiers: Pneumonia type: due to unspecified organism Laterality: unspecified laterality Lung location: unspecified part of lung Qualified Code(s): J18.9 - Pneumonia, unspecified organism (5) Squamous cell lung cancer Code(s): C34.90 - MALIGNANT NEOPLASM OF UNSP PART OF UNSP BRONCHUS OR LUNG
[2018-08-09] MEDS: ALBUTEROL SO4 8 GM HFA INHALER IH SCH ×3 (09:43→17:45)
[2018-08-09] MEDS: MUPIROCIN 2% TOPICAL OINTMENT FOR DECOLONIZATION NS SCH ×2 (09:45→22:00)
[2018-08-09] MEDS: FAMOTIDINE 20 MG/50 ML IVPB 20 MG/50 ML MG IVPB SCH ×2 (09:45→21:30)
[2018-08-09] MEDS ORDERED: PT OWN MED DRAWER 7, Y5N ONE ×4 (10:01→20:46)
[2018-08-09] MEDS: ENOXAPARIN NA (PORCINE) 100 MG/1 ML DISP.SYRIN SQ SCH ×2 (10:17→22:00)
--- NOTE | 2018-08-09 10:35 | PN ---
Progress Note, Physician History of Present Illness: AWAKE, ALERT FEELING BETTER S/P BLOOD TRANSFUSION NO FOCAL COMPLAINT DENIES CHEST PAIN/ DYSPNEA NO C/O F/C - Current Medication List Current Medications: Active Medications Albuterol Sulfate (Ventolin Hfa Inhaler -) 2 puff IH QID [facility] Last Admin: 08/09/18 09:43 Dose: 2 puff Chlorhexidine Gluconate (Hibiclens For Decolonization -) 1 applic TP HS [facility] Last Admin: 08/08/18 21:31 Dose: 1 applic Enoxaparin Sodium (Lovenox -) 90 mg SQ BID [facility] Last Admin: 08/09/18 10:17 Dose: 90 mg Sodium Chloride (Normal Saline -) 1,000 mls @ 125 mls/hr IV ASDIR [facility] Last Admin: 08/09/18 07:52 Dose: 125 mls/hr Vancomycin HCl (Vancomycin (Pre-Docked)) 1,000 mg in 250 mls @ 166.667 mls/hr IVPB Q12H [facility]; Protocol Last Admin: 08/09/18 02:07 Dose: 166.667 mls/hr Cefepime HCl 2 gm/ Dextrose 100 mls @ 200 mls/hr IVPB Q8H-IV [facility]; Protocol Last Admin: 08/09/18 10:19 Dose: 200 mls/hr Famotidine/Sodium Chloride (Pepcid 20 Mg Premixed Ivpb -) 20 mg in 50 mls @ 100 mls/hr IVPB BID [facility] Last Admin: 08/09/18 09:45 Dose: 100 mls/hr Mupirocin (Bactroban Ointment (For Decolonization) -) 1 applic NS BID [facility] Stop: 08/13/18 21:59 Last Admin: 08/09/18 09:45 Dose: 1 adh.patch Oxycodone HCl (Roxicodone -) 5 mg PO Q4H PRN PRN Reason: PAIN LEVEL 4 - 6 Last Admin: 08/09/18 01:42 Dose: 5 mg Tiotropium [place] (Spiriva Respimat) 2 puff IH DAILY [facility] - Objective Vital Signs: Vital Signs Temperature 98.4 F 08/09/18 06:00 Pulse Rate 81 08/09/18 08:00 Respiratory Rate 20 08/09/18 08:00 Blood Pressure 98/73 08/09/18 08:00 O2 Sat by Pulse Oximetry (%) 100 08/08/18 19:28 Constitutional: Yes: No Distress Eyes: Yes: Conjunctiva Clear Cardiovascular: Yes: Regular Rate and Rhythm, S1, S2 Respiratory: Yes: Rhonchi, Other (BILATERAL RHONCHI) Gastrointestinal: Yes: Normal Bowel Sounds, Soft. No: Tenderness Labs: CBC, BMP 08/09/18 05:30 08/09/18 05:30 INR, PTT INR 1.13 (0.83-1.09) H 08/09/18 05:30 Assessment/Plan S/P NEAR SYNCOPE SEVERE ANEMIA S/P TRANSFUSION LUNG CA R/O PNEUMONIA LEUKOPENIA ANC 1.4 AWAIT C/S CONTINUE EMPIRIC VANCOMYCIN / CEFEPIME
--- NOTE | 2018-08-09 10:40 | CON.CARD ---
Consult Consult Specialty:: Cardiology Referred by:: Dr. Veliz Reason for Consultation:: H/o Pafib - History of Present Illness Chief Complaint: cough, sob History of Present Illness: 63 year old man with pmh squamous cell lung carcinoma, LISA, COPD, paroxysmal afib, SVC syndrome s/p thrombolysis and stent placement, DVT, HTN admitted with sob, lundy being treated for PNA, anemia with PRBCs. Pt seen and examined today in nad. denies any chest pain or palpitations. no pnd , orthopnea or LE edema. - History Source History Provided By: Patient, Medical Record Limitations to Obtaining History: No Limitations - Past Medical History Cardio/Vascular: Yes: AFIB, HTN, Other (smoker with lung mass) Pulmonary: Yes: COPD - Past Surgical History Past Surgical History: Yes: Cholecystectomy, Hernia Repair - Alcohol/Substance Use Hx Alcohol Use: No - Smoking History Smoking history: Never smoked Have you smoked in the past 12 months: Yes Aproximately how many cigarettes per day: 5 If you are a former smoker, when did you quit?: april 2018 - Social History Usual Living Arrangement: Alone ADL: Independent History of Recent Travel: No Home Medications - Allergies Allergies/Adverse Reactions: Allergies Allergy/AdvReac Type Severity Reaction Status Date / Time No Known Allergies Allergy Verified 08/08/18 12:47 - Home Medications Home Medications: Ambulatory Orders Albuterol Sulfate [Proventil HFA Inhaler -] 1 - 2 inh PO QID 02/22/18 Acetaminophen [Tylenol .Regular Strength -] 650 mg PO Q6H PRN tablet 04/29/18 Sotalol HCl [Betapace -] 80 mg PO BID tablet 04/29/18 Tiotropium [place] [Spiriva Respimat] 2 puff IH DAILY inhaler 04/29/18 oxyCODONE HCL [Roxicodone -] 5 mg PO Q4H PRN #10 tablet MDD 4 04/29/18 Diltiazem Cd [Cardizem Cd -] 120 mg PO DAILY #30 cap.cd.24h 05/05/18 Enoxaparin [Lovenox -] 90 mg SQ BID #60 disp.syrin 05/05/18 Family Disease History - Family Disease History Family Disease History: Diabetes: Brother ( with lung cancer) Review of Systems - Review of Systems Constitutional: reports: Malaise, Weakness. denies: No Symptoms, Chills, Diaphoresis, Fever, Lethargy, Loss of Appetite, Night Sweats, Unintentional Wgt. Loss, Other Eyes: denies: No Symptoms, Blind Spots, Blurred Vision, Double Vision, Eye Pain , Floaters, Photophobia, Recent Change in Vision, Other HENT: denies: No Symptoms, Difficult Swallowing, Ear Discharge, Ear Pain, Epistaxis, Gingival Bleeding, Hearing Loss, Mouth Swelling, Nasal Congestion, Ocular Prosthesis, Throat Pain, Toothache, Ringing in Ears, Other Neck: denies: No Symptoms, Decreased ROM, Lumps, Pain on Movement, Stiffness, Swollen Glands, Tenderness, Other Cardiovascular: reports: Shortness of Breath. denies: No Symptoms, Chest Pain, Edema, Palpitations, Other Respiratory: reports: Cough, SOB, SOB on Exertion. denies: No Symptoms, Exercise Intolerance, Hemoptysis, Orthopnea, PND, Snoring, Wheezing, Other Gastrointestinal: denies: No Symptoms, Abdominal Pain, Bloating, Constipation, Diarrhea, Dysphagia, Indigestion, Melena, Nausea, Rectal Bleeding, Vomiting, Vomiting Blood, Other Genitourinary: denies: No Symptoms, Burning, Discharge, Dysuria, Flank Pain, Frequency, Hematuria, Incontinence, Lesions, Menses, Pain, Testicular Mass, Testicular Pain, Testicular Swelling, Urgency, Vaginal Bleeding, Other Breasts: denies: No Symptoms Reported, See HPI, Breast Implants, Discharge from Nipple, Lumps, Pain, Skin Changes, Other Musculoskeletal: denies: No Symptoms, Back Pain, Crepitus, Decreased ROM, Extremity Pain, Joint Pain, Joint Swelling, Muscle Pain, Muscle Cramps, Muscle Weakness, Other Integumentary: denies: No Symptoms, Blister, Bruising, Change in Color, Eczema, Erythema, Incision, Lesions, Lump, Pallor, Pruritis, Rash, Wound, Other Neurological: denies: No Symptoms, Change in LOC, Change in Speech, Confusion, Dizziness, Headache, Incoordination, Numbness, Parasthesia, Pre-Existing Deficit , Seizure, Syncope, Tremors, Unsteady Gait, Weakness, Other Endocrine: denies: No Symptoms, Excessive Sweating, Flushing, Increased Hunger, Increased Thirst, Intolerance to Cold, Intolerance to Heat, Unexplained Weight Gain, Unexplained Weight Loss, Other Hematology/Lymphatic: denies: No Symptoms, Easily Bruised, Excessive Bleeding, Swollen Glands, Other Psychiatric: denies: No Symptoms, Altered Sleep Pattern, Anxiety, Depression, Hallucinations, Panic, Paranoia, Suicidal, Other Vital Signs: Vital Signs Temperature 98.4 F 08/09/18 06:00 Pulse Rate 81 08/09/18 08:00 Respiratory Rate 20 08/09/18 08:00 Blood Pressure 98/73 08/09/18 08:00 O2 Sat by Pulse Oximetry (%) 100 08/08/18 19:28 Constitutional: Yes: No Distress, Calm Eyes: Yes: Conjunctiva Clear, EOM Intact HENT: Yes: Atraumatic, Normocephalic Neck: Yes: Supple, Trachea Midline Respiratory: Yes: Regular, Diminished, On Nasal O2, Rhonchi. No: Rales, SOB, Wheezes Gastrointestinal: Yes: Normal Bowel Sounds, Soft. No: Distention, Tenderness Cardiovascular: Yes: Regular Rate and Rhythm. No: Bradycardia, Tachycardia, Pulse Irregular, Gallop, Rub, Varicosities JVD: No Carotid Bruit: No PMI: Non-Displaced Heart Sounds: Yes: S1, S2. No: Split S2, S3, S4, Clicks, Gallop, Rub, Bruit Murmur: No: Systolic Murmur Edema: No Peripheral Pulses WNL: Yes Neurological: Yes: Alert, Oriented Psychiatric: Yes: Alert, Oriented - Other Data Labs, Other Data: CBC, BMP 08/09/18 05:30 08/09/18 05:30 INR, PTT INR 1.13 (0.83-1.09) H 08/09/18 05:30 Troponin, BNP 08/08/18 08/09/18 12:30 05:30 Troponin I < 0.02 < 0.02 B-Natriuretic Peptide 293.7 H Troponin, BNP 08/08/18 08/09/18 12:30 05:30 Troponin I < 0.02 < 0.02 B-Natriuretic Peptide 293.7 H ekg-nsr Echo: Report Reviewed Imaging - Results Chest X-ray: Report Reviewed, Image Reviewed EKG: Report Reviewed, Image Reviewed Other: Report Reviewed, Image Reviewed (tele-nsr, no afib, no other sig arrhythmias) Assessment/Plan 63 year old man with pmh squamous cell lung carcinoma, LISA, COPD, paroxysmal afib, SVC syndrome s/p thrombolysis and stent placement, DVT, HTN admitted with sob, lundy being treated for PNA, anemia with PRBCs. denies any chest pain or palpitations. no pnd, orthopnea or LE edema. H/o Pafib -NSR on admission and on tele thus far -diltiazem and sotalol on hold currently due to low normal BP -if develops afib with RVR to consider alternative rate control agent -03/11/2018 Echo: Normal LV and RV size and fxn with abnl LV compliance, mildly dilated ascending aorta, mild MR, TR. tr RI -03/29/2018 ETT Myoview: No ischemia, LVEF 60% Pt states that he follows regularly with Dr. Coffey, and if needed would like to be seen by him. No additional cardiac work up is needed at this point. If further cardiac questions would recc to consult Dr. Coffey.
--- NOTE | 2018-08-09 11:57 | PN ---
Teaching Attending Note Name of Resident: Blanche Panda ATTENDING PHYSICIAN STATEMENT I saw and evaluated the patient. I reviewed the resident's note and discussed the case with the resident. I agree with the resident's findings and plan as documented. SUBJECTIVE: Pt seen and examined in the ICU. Breathing better today, now on nasal cannula. No fevers or chills. Transfused 3 units PRBC. OBJECTIVE: Vital Signs Period Temp Pulse Resp BP Sys/Gtz Pulse Ox Last 24 Hr 98 F-99.3 F 75-95 15-24 85-118/59-73 90-100 Intake & Output 08/06/18 08/07/18 08/08/18 08/09/18 23:59 23:59 23:59 23:59 Intake Total 1700 1600 Output Total 800 300 Balance 900 1300 Weight 98.6 kg Gen: mildly tachypneic at rest Heart: RRR Lung: decreased breath sounds right 3/4 up, scattered rhonchi Abd: soft, nontender Ext: no edema CBC, BMP 08/09/18 05:30 08/09/18 05:30 Active Medications Albuterol Sulfate (Ventolin Hfa Inhaler -) 2 puff IH QID [facility] Last Admin: 08/09/18 09:43 Dose: 2 puff Chlorhexidine Gluconate (Hibiclens For Decolonization -) 1 applic TP HS [facility] Last Admin: 08/08/18 21:31 Dose: 1 applic Enoxaparin Sodium (Lovenox -) 90 mg SQ BID [facility] Last Admin: 08/09/18 10:17 Dose: 90 mg Sodium Chloride (Normal Saline -) 1,000 mls @ 125 mls/hr IV ASDIR [facility] Last Admin: 08/09/18 07:52 Dose: 125 mls/hr Vancomycin HCl (Vancomycin (Pre-Docked)) 1,000 mg in 250 mls @ 166.667 mls/hr IVPB Q12H [facility]; Protocol Last Admin: 08/09/18 02:07 Dose: 166.667 mls/hr Cefepime HCl 2 gm/ Dextrose 100 mls @ 200 mls/hr IVPB Q8H-IV [facility]; Protocol Last Admin: 08/09/18 10:19 Dose: 200 mls/hr Famotidine/Sodium Chloride (Pepcid 20 Mg Premixed Ivpb -) 20 mg in 50 mls @ 100 mls/hr IVPB BID [facility] Last Admin: 08/09/18 09:45 Dose: 100 mls/hr Methylprednisolone Sodium Succinate (Solu-Medrol -) 60 mg IVPUSH Q8H-IV [facility] Mupirocin (Bactroban Ointment (For Decolonization) -) 1 applic NS BID [facility] Stop: 08/13/18 21:59 Last Admin: 08/09/18 09:45 Dose: 1 adh.patch Oxycodone HCl (Roxicodone -) 5 mg PO Q4H PRN PRN Reason: PAIN LEVEL 4 - 6 Last Admin: 08/09/18 01:42 Dose: 5 mg Tiotropium [place] (Spiriva Respimat) 2 puff IH DAILY [facility] ASSESSMENT AND PLAN: Pneumonia Severe Sepsis Acute on Chronic Hypoxic Respiratory Failure NSCLC (Squamous Cell Ca) - s/p chemo/RT Acute COPD Exacerbation Paroxysmal Atrial Fibrillation h/o SVC Thrombus s/p thrombectomy/thrombolysis HTN Anemia h/o Hep C - continue antibiotics - f/u cultures - CT chest noncontrast - continue anticoagulation - O2 to keep Spo2 >90% - inhaled bronchodilators - short course of empiric medrol - pain control - replete lytes - transfuse PRBC - monitor H/H - continue ICU monitoring critical care time spent in reviewing chart, evaluating patient and formulating plan 35 min
[2018-08-09] MEDS: TIOTROPIUM BROMIDE 2.5 MCG (SPIRIVA) RESPIMAT INHALER IH SCH (12:00)
[2018-08-09 12:41] LABS: BASO % 0.4 % (0-2.0); EOS % 2.6 % (0-4.5); HEMATOCRIT 23.9 % (35.4-49); HEMOGLOBIN 8.3 GM/dL (11.7-16.9); LYMPH % 27.9 % (8-40); MCH 33.1 pg (25.7-33.7); MCHC 34.9 g/dl (32.0-35.9); MEAN CELL VOLUME 94.9 fl (80-96); MEAN PLT VOLUME 7.5 fl (7.5-11.1); MONO % 16.5 % (3.8-10.2); NEUT % 52.6 % (42.8-82.8); PLATELET COUNT 166 K/MM3 (134-434); RBC 2.52 M/mm3 (4.00-5.60); RDW 23.3 % (11.9-15.9); WHITE BLOOD COUNT 3.3 K/mm3 (4.0-10.0)
--- NOTE | 2018-08-09 13:28 | CON.GI ---
Consult Consult Specialty:: GI Referred by:: Dr. Victorina Barnes Reason for Consultation:: Anemia - History of Present Illness Chief Complaint: Anemia History of Present Illness: Patient is a 63 year old male with past medical history of squamous cell lung carcinoma. Patient recently finished 8 weeks of chemo and RT. I was asked to consult patient due to his anemia, on admission Hg 5.7. The guaiac is negative. Patient states having mild rectal bleeding with BM, denies melena. Denies abnormal weight loss.S?p colonoscopy with Dr Harris and was noted to have colonic polyp. - History Source History Provided By: Patient Limitations to Obtaining History: No Limitations - Past Medical History Cardio/Vascular: Yes: AFIB, HTN, Other (smoker with lung mass) Pulmonary: Yes: COPD - Past Surgical History Past Surgical History: Yes: Cholecystectomy, Hernia Repair - Alcohol/Substance Use Hx Alcohol Use: No - Smoking History Smoking history: Never smoked Have you smoked in the past 12 months: Yes Aproximately how many cigarettes per day: 5 If you are a former smoker, when did you quit?: april 2018 - Social History Usual Living Arrangement: Alone ADL: Independent History of Recent Travel: No Home Medications - Allergies Allergies/Adverse Reactions: Allergies Allergy/AdvReac Type Severity Reaction Status Date / Time No Known Allergies Allergy Verified 08/08/18 12:47 - Home Medications Home Medications: Ambulatory Orders Albuterol Sulfate [Proventil HFA Inhaler -] 1 - 2 inh PO QID 02/22/18 Acetaminophen [Tylenol .Regular Strength -] 650 mg PO Q6H PRN tablet 04/29/18 Sotalol HCl [Betapace -] 80 mg PO BID tablet 04/29/18 Tiotropium [place] [Spiriva Respimat] 2 puff IH DAILY inhaler 04/29/18 Diltiazem Cd [Cardizem Cd -] 120 mg PO DAILY #30 cap.cd.24h 05/05/18 Enoxaparin [Lovenox -] 90 mg SQ BID #60 disp.syrin 05/05/18 Oxycodone HCl 10 mg PO Q4H PRN 08/09/18 Family Disease History - Family Disease History Family Disease History: Diabetes: Brother ( with lung cancer) Review of Systems - Review of Systems Constitutional: reports: No Symptoms Eyes: reports: No Symptoms HENT: reports: No Symptoms Neck: reports: No Symptoms Cardiovascular: reports: No Symptoms Respiratory: reports: No Symptoms Gastrointestinal: reports: Nausea, Rectal Bleeding Genitourinary: reports: No Symptoms Breasts: reports: No Symptoms Reported Musculoskeletal: reports: No Symptoms Integumentary: reports: No Symptoms Neurological: reports: No Symptoms Endocrine: reports: No Symptoms Hematology/Lymphatic: reports: No Symptoms Psychiatric: reports: No Symptoms Physical Exam-GI Vital Signs: Vital Signs Temperature 99.3 F 08/09/18 10:00 Pulse Rate 91 H 08/09/18 12:00 Respiratory Rate 21 H 08/09/18 12:00 Blood Pressure 124/79 08/09/18 12:00 O2 Sat by Pulse Oximetry (%) 97 08/09/18 09:00 Constitutional: Yes: Calm, Mild Distress Eyes: Yes: Conjunctiva Clear HENT: Yes: Normocephalic Cardiovascular: Yes: Regular Rate and Rhythm Respiratory: Yes: Rhonchi Gastrointestinal Inspection: No: WNL, Ascites, Distention, Hernia, Scars, Other ...Auscultate: Yes: Normoactive Bowel Sounds. No: Hyperactive Bowel Sounds, Hypoactive Bowel Sounds, No Bowel Sounds, Other ...Palpate: Yes: Soft. No: Firm/Rigid, Guarding, Hepatomegaly, Mass, Pulsatile Mass, Splenomegaly, Tenderness, Tenderness, Epigastium, Tenderness, Rebound, Other ...Percussion: Yes: Tympanitic. No: Dullness, Fluid Wave, Other Neurological: Yes: Alert, Oriented Labs: CBC, BMP 08/09/18 12:03 08/09/18 05:30 INR, PTT INR 1.13 (0.83-1.09) H 08/09/18 05:30 Laboratory Results - last 24 hr 08/08/18 08/08/18 08/08/18 12:30 12:30 12:30 WBC 3.3 L RBC 1.67 L Hgb 5.7 L* Hct 17.0 L D MCV 101.6 H MCH 34.3 H MCHC 33.8 RDW 23.7 H Plt Count 149 MPV 7.5 Absolute Neuts (auto) 1.8 Neutrophils % 53.2 D Neutrophils % (Manual) Band Neutrophils % Lymphocytes % 29.9 D Lymphocytes % (Manual) Monocytes % 14.1 H Monocytes % (Manual) Eosinophils % 1.9 D Eosinophils % (Manual) Basophils % 0.9 D Basophils % (Manual) Myelocytes % (Man) Promyelocytes % (Man) Blast Cells % (Manual) Nucleated RBC % 1 H Metamyelocytes Hypochromia 1+ Platelet Estimate Polychromasia 2+ Poikilocytosis Basophilic Stippling 1+ Anisocytosis Microcytosis Macrocytosis 1+ Retic Count PT with INR 13.40 H INR 1.13 H PTT (Actin FS) 32.6 VBG pH POC VBG pCO2 POC VBG pO2 Mixed VBG HCO3 Sodium 138 Potassium 3.8 Chloride 103 Carbon Dioxide 29 Anion Gap 6 L BUN 6 L Creatinine 0.9 Creat Clearance w eGFR > 60 Random Glucose 105 Hemoglobin A1c % Lactic Acid Calcium 7.5 L Phosphorus Magnesium Ferritin Total Bilirubin 0.3 AST 20 ALT 18 Alkaline Phosphatase 47 LD Total Creatine Kinase Troponin I < 0.02 B-Natriuretic Peptide 293.7 H Total Protein 6.3 L Albumin 2.8 L Urine Color Urine Appearance Urine pH Ur Specific [place] Urine Protein Urine Glucose (UA) Urine Ketones Urine Blood Urine Nitrite Urine Bilirubin Urine Urobilinogen Ur Leukocyte Esterase Urine WBC (Auto) Urine RBC (Auto) Ur Epithelial Cells Urine Bacteria Urine Mucus Stool Occult Blood Influenza A (Rapid) Influenza B (Rapid) Blood Type Antibody Screen Crossmatch 08/08/18 08/08/18 08/08/18 12:30 12:59 13:27 WBC RBC Hgb Hct MCV MCH MCHC RDW Plt Count MPV Absolute Neuts (auto) Neutrophils % Neutrophils % (Manual) Band Neutrophils % Lymphocytes % Lymphocytes % (Manual) Monocytes % Monocytes % (Manual) Eosinophils % Eosinophils % (Manual) Basophils % Basophils % (Manual) Myelocytes % (Man) Promyelocytes % (Man) Blast Cells % (Manual) Nucleated RBC % Metamyelocytes Hypochromia Platelet Estimate Polychromasia Poikilocytosis Basophilic Stippling Anisocytosis Microcytosis Macrocytosis Retic Count PT with INR INR PTT (Actin FS) VBG pH POC VBG pCO2 POC VBG pO2 Mixed VBG HCO3 Sodium Potassium Chloride Carbon Dioxide Anion Gap BUN Creatinine Creat Clearance w eGFR Random Glucose Hemoglobin A1c % Lactic Acid 1.2 1.4 Calcium Phosphorus Magnesium Ferritin Total Bilirubin AST ALT Alkaline Phosphatase LD Total Creatine Kinase Troponin I B-Natriuretic Peptide Total Protein Albumin Urine Color Yellow Urine Appearance Slcloudy Urine pH 5.0 Ur Specific [place] 1.018 Urine Protein Negative Urine Glucose (UA) Negative Urine Ketones Negative Urine Blood 1+ H Urine Nitrite Positive Urine Bilirubin Negative Urine Urobilinogen Negative Ur Leukocyte Esterase Negative Urine WBC (Auto) 10 Urine RBC (Auto) <1 Ur Epithelial Cells Rare Urine Bacteria Rare Urine Mucus Rare Stool Occult Blood Influenza A (Rapid) Influenza B (Rapid) Blood Type Antibody Screen Crossmatch 08/08/18 08/08/18 08/08/18 14:05 14:57 15:00 WBC RBC Hgb Hct MCV MCH MCHC RDW Plt Count MPV Absolute Neuts (auto) Neutrophils % Neutrophils % (Manual) Band Neutrophils % Lymphocytes % Lymphocytes % (Manual) Monocytes % Monocytes % (Manual) Eosinophils % Eosinophils % (Manual) Basophils % Basophils % (Manual) Myelocytes % (Man) Promyelocytes % (Man) Blast Cells % (Manual) Nucleated RBC % Metamyelocytes Hypochromia Platelet Estimate Polychromasia Poikilocytosis Basophilic Stippling Anisocytosis Microcytosis Macrocytosis Retic Count PT with INR INR PTT (Actin FS) VBG pH 7.43 H POC VBG pCO2 43.3 POC VBG pO2 36.6 Mixed VBG HCO3 28.4 H Sodium Potassium Chloride Carbon Dioxide Anion Gap BUN Creatinine Creat Clearance w eGFR Random Glucose Hemoglobin A1c % Lactic Acid Calcium Phosphorus Magnesium Ferritin Total Bilirubin AST ALT Alkaline Phosphatase LD Total Creatine Kinase Troponin I B-Natriuretic Peptide Total Protein Albumin Urine Color Urine Appearance Urine pH Ur Specific [place] Urine Protein Urine Glucose (UA) Urine Ketones Urine Blood Urine Nitrite Urine Bilirubin Urine Urobilinogen Ur Leukocyte Esterase Urine WBC (Auto) Urine RBC (Auto) Ur Epithelial Cells Urine Bacteria Urine Mucus Stool Occult Blood Negative Influenza A (Rapid) Negative Influenza B (Rapid) Negative Blood Type Antibody Screen Crossmatch 08/08/18 08/09/18 08/09/18 15:50 00:54 05:30 WBC 3.7 L 2.8 L RBC 2.11 L 2.02 L Hgb 7.1 L 6.7 L* Hct 20.2 L D 19.2 L MCV 95.8 94.9 MCH 33.9 H 33.2 MCHC 35.4 35.0 RDW 24.2 H 24.3 H Plt Count 144 152 MPV 7.1 L 7.1 L Absolute Neuts (auto) 1.8 1.4 L Neutrophils % 48.1 51.3 Neutrophils % (Manual) 46.5 D Band Neutrophils % 1.0 Lymphocytes % 31.3 30.1 Lymphocytes % (Manual) 30.3 D Monocytes % 17.8 H 16.0 H Monocytes % (Manual) 17 H D Eosinophils % 2.3 2.3 Eosinophils % (Manual) 1.0 D Basophils % 0.5 0.3 Basophils % (Manual) 1.0 D Myelocytes % (Man) 1 D Promyelocytes % (Man) 0 Blast Cells % (Manual) 0 Nucleated RBC % 2 H 1 H Metamyelocytes 1 D Hypochromia 1+ Platelet Estimate Normal Polychromasia 2+ Poikilocytosis 1+ Basophilic Stippling Anisocytosis 1+ Microcytosis 3+ Macrocytosis 0 Retic Count 5.09 H PT with INR INR PTT (Actin FS) VBG pH POC VBG pCO2 POC VBG pO2 Mixed VBG HCO3 Sodium Potassium Chloride Carbon Dioxide Anion Gap BUN Creatinine Creat Clearance w eGFR Random Glucose Hemoglobin A1c % Lactic Acid Calcium Phosphorus Magnesium Ferritin Total Bilirubin AST ALT Alkaline Phosphatase LD Total Creatine Kinase Troponin I B-Natriuretic Peptide Total Protein Albumin Urine Color Urine Appearance Urine pH Ur Specific [place] Urine Protein Urine Glucose (UA) Urine Ketones Urine Blood Urine Nitrite Urine Bilirubin Urine Urobilinogen Ur Leukocyte Esterase Urine WBC (Auto) Urine RBC (Auto) Ur Epithelial Cells Urine Bacteria Urine Mucus Stool Occult Blood Influenza A (Rapid) Influenza B (Rapid) Blood Type O POSITIVE Antibody Screen Negative Crossmatch See Detail 08/09/18 08/09/18 08/09/18 05:30 05:30 05:30 WBC RBC Hgb Hct MCV MCH MCHC RDW Plt Count MPV Absolute Neuts (auto) Neutrophils % Neutrophils % (Manual) Band Neutrophils % Lymphocytes % Lymphocytes % (Manual) Monocytes % Monocytes % (Manual) Eosinophils % Eosinophils % (Manual) Basophils % Basophils % (Manual) Myelocytes % (Man) Promyelocytes % (Man) Blast Cells % (Manual) Nucleated RBC % Metamyelocytes Hypochromia Platelet Estimate Polychromasia Poikilocytosis Basophilic Stippling Anisocytosis Microcytosis Macrocytosis Retic Count PT with INR 13.30 H INR 1.13 H PTT (Actin FS) VBG pH POC VBG pCO2 POC VBG pO2 Mixed VBG HCO3 Sodium 140 Potassium 3.3 L Chloride 106 Carbon Dioxide 30 Anion Gap 5 L BUN 6 L Creatinine 0.7 Creat Clearance w eGFR > 60 Random Glucose 91 Hemoglobin A1c % Lactic Acid Calcium 7.2 L Phosphorus 3.7 Magnesium 1.9 Ferritin Total Bilirubin 0.3 AST 11 L ALT 14 Alkaline Phosphatase 40 L LD Total 290 H Creatine Kinase 36 Troponin I < 0.02 B-Natriuretic Peptide Total Protein 5.4 L Albumin 2.4 L Urine Color Urine Appearance Urine pH Ur Specific [place] Urine Protein Urine Glucose (UA) Urine Ketones Urine Blood Urine Nitrite Urine Bilirubin Urine Urobilinogen Ur Leukocyte Esterase Urine WBC (Auto) Urine RBC (Auto) Ur Epithelial Cells Urine Bacteria Urine Mucus Stool Occult Blood Influenza A (Rapid) Influenza B (Rapid) Blood Type Antibody Screen Crossmatch 08/09/18 08/09/18 08/09/18 05:30 05:30 12:03 WBC 3.3 L RBC 2.52 L Hgb 8.3 L Hct 23.9 L D MCV 94.9 MCH 33.1 MCHC 34.9 RDW 23.3 H Plt Count 166 MPV 7.5 Absolute Neuts (auto) 1.7 Neutrophils % 52.6 Neutrophils % (Manual) Band Neutrophils % Lymphocytes % 27.9 Lymphocytes % (Manual) Monocytes % 16.5 H Monocytes % (Manual) Eosinophils % 2.6 Eosinophils % (Manual) Basophils % 0.4 Basophils % (Manual) Myelocytes % (Man) Promyelocytes % (Man) Blast Cells % (Manual) Nucleated RBC % 1 H Metamyelocytes Hypochromia Platelet Estimate Polychromasia Poikilocytosis Basophilic Stippling Anisocytosis Microcytosis Macrocytosis Retic Count PT with INR INR PTT (Actin FS) VBG pH POC VBG pCO2 POC VBG pO2 Mixed VBG HCO3 Sodium Potassium Chloride Carbon Dioxide Anion Gap BUN Creatinine Creat Clearance w eGFR Random Glucose Hemoglobin A1c % 6.2 Lactic Acid Calcium Phosphorus Magnesium Ferritin 510.6 H Total Bilirubin AST ALT Alkaline Phosphatase LD Total Creatine Kinase Troponin I B-Natriuretic Peptide Total Protein Albumin Urine Color Urine Appearance Urine pH Ur Specific [place] Urine Protein Urine Glucose (UA) Urine Ketones Urine Blood Urine Nitrite Urine Bilirubin Urine Urobilinogen Ur Leukocyte Esterase Urine WBC (Auto) Urine RBC (Auto) Ur Epithelial Cells Urine Bacteria Urine Mucus Stool Occult Blood Influenza A (Rapid) Influenza B (Rapid) Blood Type Antibody Screen Crossmatch Active Medications Generic Name Dose Route Start Last Admin Trade Name Freq PRN Reason Stop Dose Admin Albuterol Sulfate 2 puff 08/08/18 22:00 08/09/18 09:43 Ventolin Hfa Inhaler - IH 2 puff QID ALONDRA Administration Chlorhexidine Gluconate 1 applic 08/08/18 22:00 08/08/18 21:31 Hibiclens For Decolonization - TP 1 applic HS ALONDRA Administration Enoxaparin Sodium 90 mg 08/08/18 22:00 08/09/18 10:17 Lovenox - SQ 90 mg BID ALONDRA Administration Sodium Chloride 1,000 mls @ 125 mls/hr 08/08/18 16:37 08/09/18 07:52 Normal Saline - IV 125 mls/hr ASDIR ALONDRA Administration Vancomycin HCl 1,000 mg in 250 mls @ 166.667 mls/hr 08/09/18 03:00 08/09/18 02:07 Vancomycin (Pre-Docked) IVPB 166.667 mls/hr Q12H ALONDRA Administration Protocol Cefepime HCl 2 gm/ Dextrose 100 mls @ 200 mls/hr 08/08/18 18:15 08/09/18 10: 19 IVPB 200 mls/hr Q8H-IV ALONDRA Administration Protocol Famotidine/Sodium Chloride 20 mg in 50 mls @ 100 mls/hr 08/08/18 22:00 09:45 Pepcid 20 Mg Premixed Ivpb - IVPB 100 mls/hr BID ALODNRA Administration Methylprednisolone Sodium Succinate 60 mg 08/09/18 11:45 Solu-Medrol - IVPUSH Q8H-IV ALONDRA Mupirocin 1 applic 08/08/18 22:00 08/09/18 09:45 Bactroban Ointment (For Decolonization) - NS 08/13/18 21:59 1 adh.patch BID ALONDRA Administration Oxycodone HCl 5 mg 08/09/18 01:08 08/09/18 01:42 Roxicodone - PO 5 mg Q4H PRN Administration PAIN LEVEL 4 - 6 Tiotropium [place] 2 puff 08/09/18 10:00 Spiriva Respimat IH DAILY [facility] Problem List - Problems (1) Anemia Assessment/Plan: >R stool guaiac Code(s): D64.9 - ANEMIA, UNSPECIFIED Qualifiers: Anemia type: unspecified type Qualified Code(s): D64.9 - Anemia, unspecified (2) Rectal bleeding Assessment/Plan: >R when medically cleared will need colonoscopy will need pulmonary clearance please recall Code(s): K62.5 - HEMORRHAGE OF ANUS AND RECTUM
[2018-08-09] MEDS: methylPREDNISolone NA SUCC 40 MG/1 ML VIAL IVPUSH SCH ×2 (14:06→17:43)
--- NOTE | 2018-08-09 15:08 | EKG ---
Test Reason : Blood Pressure : / mmHG Vent. Rate : 091 BPM Atrial Rate : 091 BPM P-R Int : 166 ms QRS Dur : 082 ms QT Int : 370 ms P-R-T Axes : 046 010 035 degrees QTc Int : 455 ms NORMAL SINUS RHYTHM CANNOT RULE OUT ANTERIOR INFARCT , AGE UNDETERMINED ABNORMAL ECG WHEN COMPARED WITH ECG OF 29-JUN-2018 14:34, SINUS RHYTHM HAS REPLACED ATRIAL FIBRILLATION Confirmed by Berto Perez MD ([id number]) on 08/09/2018 3:08:00 PM Referred By: Confirmed By:Berto Perez MD
[2018-08-09 15:40] LABS: PLATELET ESTIMATE NORMAL
[2018-08-09 15:42] LABS: ANISOCYTOSIS 1+
--- NOTE | 2018-08-09 16:15 | PN ---
Progress Note (short form) - Note Progress Note: SUBJECTIVE Patient seen and examined at the bedside. No acute complaints. Feeling better than yesterday. OBJECTIVE Vital Signs Temperature 99.2 F 08/09/18 14:00 Pulse Rate 82 08/09/18 14:00 Respiratory Rate 24 H 08/09/18 14:00 Blood Pressure 104/70 08/09/18 14:00 O2 Sat by Pulse Oximetry (%) 97 08/09/18 09:00 General: Awake, alert, and fully oriented, in no acute distress Head: No signs of trauma Eyes: EOMI, sclera anicteric ENT: Moist mucus membranes Neck: Normal ROM, supple Lungs: RLL with decreased breath sounds, scattered rhonchi Cardio: Regular rhythm, S1 and S2 present Abdomen: Soft, nontender. No guarding, no rebound, no masses Extremities: Normal range of motion, Distal pulses present SKIN: Warm, Dry, normal turgor Neurologic: Cranial nerves II through XII grossly intact. Normal speech ASSESSMENT 63yo M with PMH of squamous cell cancer of the lung, COPD, paroxysmal Afib on lovenox, CVT, HTN, SVC syndrome and LISA presenting with shortness of breath, cough, and fever found to have consolidation on CXR/ acute hypoxic respiratory failure due to pneumonia. HOD #2 PLAN CV History of Afib -Hold home cardizem and sotalol while hypotensive -bolus PRN for hypotension -Maintain MAP >65 -Cardiology following PULM CXR with consolidation due to pneumonia History of COPD -Chest CT without contrast -duonebs PRN -short course of steroids -antibiotics per ID -Satting 97 on 3L NC HEME Anemia, likely chemotherapy induced History of squamous cell carcinoma of the lung -Followed by hem/onc -Hgb=6.7 this AM, transfused PRBCs, repeat hgb=8.3 -Anemia workup: LDH, Pio, RETIC, haptoglobin, B12, Folate ID Pneumonia -Vanc/Cefepime -Cultures with NGTD -ID following FEN Dc'ed fluids, can bolus PRN for hypotension Follow electrolytes, replete as needed Regular diet PPX VTE: Lovenox BID GI: Famotidine #Disposition: Continue to monitor in the ICU
[2018-08-10] MEDS: oxyCODONE HCL 5 MG TABLET PO PRN ×3 (01:03→18:38)
[2018-08-10] MEDS ORDERED: PT OWN MED DRAWER 7, Y5N ONE ×5 (01:07→22:14)
[2018-08-10] MEDS: CEFEPIME 2 GM in DEXTROSE 5%-WATER 100 ML IVPB SCH ×3 (01:10→19:11)
[2018-08-10] MEDS: CHLORHEXIDINE GLUCONATE 4% CLEANSER FOR DECOLONIZATION TP SCH (02:50)
[2018-08-10] MEDS: methylPREDNISolone NA SUCC 40 MG/1 ML VIAL IVPUSH SCH ×3 (02:51→17:52)
[2018-08-10] MEDS: VANCOMYCIN 1 GRAM (PRE-DOCKED) 1,000 MG/250 ML BAG IVPB SCH ×2 (02:52→15:20)
[2018-08-10 04:15] LABS: SERUM IRON SATURATION 18 % (15-55); TOTAL IRON BINDING CAPACITY 226 ug/dL (250-450); UIBC 186 ug/dL (111-343)
[2018-08-10 06:56] LABS: BASO % 0.2 % (0-2.0); EOS % 0.1 % (0-4.5); HEMATOCRIT 24.1 % (35.4-49); HEMOGLOBIN 8.7 GM/dL (11.7-16.9); MCH 33.5 pg (25.7-33.7); MCHC 36.1 g/dl (32.0-35.9); MEAN CELL VOLUME 92.7 fl (80-96); MEAN PLT VOLUME 7.5 fl (7.5-11.1); MONO % 6.8 % (3.8-10.2); NEUT % 71.9 % (42.8-82.8); PLATELET COUNT 160 K/MM3 (134-434); RDW 22.2 % (11.9-15.9); WHITE BLOOD COUNT 2.9 K/mm3 (4.0-10.0)
[2018-08-10 07:53] LABS: ALBUMIN 2.5 g/dl (3.4-5.0); ALK PHOS 51 U/L (45-117); ANION GAP 6 MMOL/L (8-16); BILIRUBIN,TOTAL 0.2 mg/dL (0.2-1); BLOOD UREA NITROGEN 5 mg/dL (7-18); CALCIUM 7.7 mg/dL (8.5-10.1); CHLORIDE 105 mmol/L (98-107); CO2 27 mmol/L (21-32); CREATININE 0.7 mg/dL (0.55-1.3); GLUCOSE,RANDOM 163 mg/dL (74-106); MAGNESIUM 2.1 mg/dL (1.8-2.4); PHOSPHOROUS 3.6 mg/dL (2.5-4.9); POTASSIUM 4.3 mmol/L (3.5-5.1); SGOT/AST 13 U/L (15-37); SGPT/ALT 16 U/L (13-61); SODIUM 138 mmol/L (136-145); TOT PROT 6.4 g/dl (6.4-8.2)
--- NOTE | 2018-08-10 09:19 | PN ---
Progress Note (short form) - Note Progress Note: Patient seen and examined Complains of occasional chest pressure Remains dyspneic , but improvement in breathing noted by patient Last Vital Signs Temp Pulse Resp BP Pulse Ox 98.2 F 89 16 158/89 97 08/10/18 02:00 08/10/18 06:00 08/10/18 07:34 08/10/18 06:00 08/10/18 07:34 ROS no headache, diplopia, epistaxis, dysphagia, nausea, emesis, diarrhea, constipation, melena, dysuria, hematuria, cough productive of clear sputum P.E. HEENT: ROSARIO, EOM Intact Oropharynx: No thrush, No mucositis,edentulous Neck: Supple Nodes: Without adenopathy Cor: RSR, No murmurs, No gallops Lungs: scattered rhonchi, wheezes Abd: Soft, Normal bowel sounds, No organomegaly Ext:No significant edema Skin: No rashes, Integument intact CBC, BMP 08/10/18 05:30 08/10/18 05:30 Current Medications Generic Name Dose Route Start Last Admin Trade Name Freq PRN Reason Stop Dose Admin Albuterol Sulfate 2 puff 08/08/18 22:00 08/09/18 17:45 Ventolin Hfa Inhaler - IH 2 puff QID ALONDRA Administration Chlorhexidine Gluconate 1 applic 08/08/18 22:00 08/10/18 02:50 Hibiclens For Decolonization - TP 1 applic HS ALONDRA Administration Diltiazem HCl 120 mg 08/10/18 10:00 Cardizem Cd - PO DAILY ALONDRA Enoxaparin Sodium 90 mg 08/08/18 22:00 08/09/18 22:00 Lovenox - SQ 90 mg BID ALONDRA Administration Vancomycin HCl 1,000 mg in 250 mls @ 166.667 mls/hr 08/09/18 03:00 08/10/18 02:52 Vancomycin (Pre-Docked) IVPB 166.667 mls/hr Q12H ALONDRA Administration Protocol Cefepime HCl 2 gm/ Dextrose 100 mls @ 200 mls/hr 08/08/18 18:15 08/10/18 01: 10 IVPB 200 mls/hr Q8H-IV ALONDRA Administration Protocol Famotidine/Sodium Chloride 20 mg in 50 mls @ 100 mls/hr 08/08/18 22:00 21:30 Pepcid 20 Mg Premixed Ivpb - IVPB 100 mls/hr BID ALONDRA Administration Methylprednisolone Sodium Succinate 60 mg 08/09/18 11:45 08/10/18 02:51 Solu-Medrol - IVPUSH 60 mg Q8H-IV ALONDRA Administration Mupirocin 1 applic 08/08/18 22:00 08/09/18 22:00 Bactroban Ointment (For Decolonization) - NS 08/13/18 21:59 1 adh.patch BID ALONDRA Administration Oxycodone HCl 10 mg 08/09/18 17:54 08/10/18 03:15 Roxicodone - PO 10 mg Q4H PRN Administration PAIN LEVEL 4 - 6 Sotalol HCl 80 mg 08/10/18 10:00 Betapace - PO BID ALONDRA Tiotropium [place] 2 puff 08/09/18 10:00 08/09/18 12:00 Spiriva Respimat IH 2 puff DAILY ALONDRA Administration Impression: Squamous cell ca of lung SVC syndrome - s/p stenting S/P RT/ chemotherapy Pneumonitis Anemia S/P 3 units of packed cells A/C Plan: Continuing current therapy Antibiotic therapy A/C Maintain Hb of 8 gm%.
[2018-08-10] MEDS: ALBUTEROL SO4 8 GM HFA INHALER IH SCH ×2 (09:43→18:35)
[2018-08-10] MEDS: MUPIROCIN 2% TOPICAL OINTMENT FOR DECOLONIZATION NS SCH (09:43)
[2018-08-10] MEDS: TIOTROPIUM BROMIDE 2.5 MCG (SPIRIVA) RESPIMAT INHALER IH SCH (09:45)
--- NOTE | 2018-08-10 09:45 | PN ---
Progress Note, Physician History of Present Illness: Dyspnea, fatigue and near syncope improving with correction of anemia and treatment of pneumonia. - Current Medication List Current Medications: Active Medications Albuterol Sulfate (Ventolin Hfa Inhaler -) 2 puff IH QID [facility] Last Admin: 08/09/18 17:45 Dose: 2 puff Chlorhexidine Gluconate (Hibiclens For Decolonization -) 1 applic TP HS [facility] Last Admin: 08/10/18 02:50 Dose: 1 applic Diltiazem HCl (Cardizem Cd -) 120 mg PO DAILY [facility] Enoxaparin Sodium (Lovenox -) 90 mg SQ BID [facility] Last Admin: 08/09/18 22:00 Dose: 90 mg Vancomycin HCl (Vancomycin (Pre-Docked)) 1,000 mg in 250 mls @ 166.667 mls/hr IVPB Q12H [facility]; Protocol Last Admin: 08/10/18 02:52 Dose: 166.667 mls/hr Cefepime HCl 2 gm/ Dextrose 100 mls @ 200 mls/hr IVPB Q8H-IV [facility]; Protocol Last Admin: 08/10/18 01:10 Dose: 200 mls/hr Famotidine/Sodium Chloride (Pepcid 20 Mg Premixed Ivpb -) 20 mg in 50 mls @ 100 mls/hr IVPB BID [facility] Last Admin: 08/09/18 21:30 Dose: 100 mls/hr Methylprednisolone Sodium Succinate (Solu-Medrol -) 60 mg IVPUSH Q8H-IV [facility] Last Admin: 08/10/18 02:51 Dose: 60 mg Mupirocin (Bactroban Ointment (For Decolonization) -) 1 applic NS BID [facility] Stop: 08/13/18 21:59 Last Admin: 08/09/18 22:00 Dose: 1 adh.patch Oxycodone HCl (Roxicodone -) 10 mg PO Q4H PRN PRN Reason: PAIN LEVEL 4 - 6 Last Admin: 08/10/18 03:15 Dose: 10 mg Sotalol HCl (Betapace -) 80 mg PO BID [facility] Tiotropium [place] (Spiriva Respimat) 2 puff IH DAILY [facility] Last Admin: 08/09/18 12:00 Dose: 2 puff - Objective Vital Signs: Vital Signs Temperature 98.2 F 08/10/18 02:00 Pulse Rate 107 H 08/10/18 08:00 Respiratory Rate 18 08/10/18 08:00 Blood Pressure 150/87 08/10/18 08:00 O2 Sat by Pulse Oximetry (%) 97 08/10/18 07:34 Constitutional: Yes: No Distress, Calm, Thin Neck: Yes: Supple Cardiovascular: Yes: Regular Rate and Rhythm Respiratory: Yes: Regular, Diminished, On Nasal O2 Gastrointestinal: Yes: Normal Bowel Sounds, Soft Edema: No Labs: CBC, BMP 08/10/18 05:30 08/10/18 05:30 INR, PTT INR 1.13 (0.83-1.09) H 08/09/18 05:30 - ....Imaging Cat Scan: Report Reviewed (CT chest shows RUL mass, possible obstruction in bronchus intermedius.) EKG: Report Reviewed (Tele: NSR no PAF) Problem List - Problems (1) COPD (chronic obstructive pulmonary disease) Code(s): J44.9 - CHRONIC OBSTRUCTIVE PULMONARY DISEASE, UNSPECIFIED Qualifiers: COPD type: unspecified COPD Qualified Code(s): J44.9 - Chronic obstructive pulmonary disease, unspecified (2) Pneumonia Code(s): J18.9 - PNEUMONIA, UNSPECIFIED ORGANISM Qualifiers: Pneumonia type: due to unspecified organism Laterality: unspecified laterality Lung location: unspecified part of lung Qualified Code(s): J18.9 - Pneumonia, unspecified organism (3) Anticoagulant long-term use Code(s): Z79.01 - MCFP (CURRENT) USE OF 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 (4) DVT (deep venous thrombosis) Code(s): I82.409 - ACUTE EMBOLISM AND THOMBOS UNSP DEEP VN UNSP LOWER EXTREMITY Qualifiers: DVT location: upper extremity Affected thrombotic vein of extremity: other upper extremity vein Chronicity: acute Laterality: right Qualified Code(s) : I82.621 - Acute embolism and thrombosis of deep veins of right upper extremity (5) HTN (hypertension) Code(s): I10 - ESSENTIAL (PRIMARY) HYPERTENSION (6) Lung cancer Code(s): C34.90 - MALIGNANT NEOPLASM OF UNSP PART OF UNSP BRONCHUS OR LUNG Qualifiers: Laterality: right Lung location: upper lobe of lung Qualified Code(s): C34.11 - Malignant neoplasm of upper lobe, right bronchus or lung (7) Paroxysmal atrial fibrillation Code(s): I48.0 - PAROXYSMAL ATRIAL FIBRILLATION (8) SVC syndrome Code(s): I87.1 - COMPRESSION OF VEIN (9) Shortness of breath Code(s): R06.02 - SHORTNESS OF BREATH (10) Anemia Code(s): D64.9 - ANEMIA, UNSPECIFIED Qualifiers: Anemia type: unspecified type Qualified Code(s): D64.9 - Anemia, unspecified Assessment/Plan 02/22/2018 Holter Monitor: SR with paroxysmal afib/flutter with aberrant conduction (RBBB morphology) 5.44% of time, frequent PAC, PVC 12/22/2017 Large irregular cavitary soft tissue mass involving right superior mediastinum in right to mid and superior hilar region suspicious for primary or secondary malignancy 04/07/2018 Large central RUL mass with invasion of mediastinum and adjacent consolidation/ATX RUL, distal SVC stenosis without obstruction with collateralization 03/11/2018 Echo: Normal LV and RV size and fxn with abnl LV compliance, mildly dilated ascending aorta, mild MR, TR. tr AK 03/29/2018 ETT Myoview: Negative maximal stress test for ischemia, LVEF 60% 04/14/2018 Brain MRI: No metastases 1. Post-obstructive pneumonia 2. Anemia s/p 3 U pRBC transfusion 3. 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 COPD/Emphysema 6. Palpitations, Paroxysmal Atrial Fibrillation->SR [id number] on anticoagulation 7. Diastolic LV dysfunction with class 0 NYHA classification LV failure 8. HTN/HCVD 9. Hep C post-treatment 10. Smoker Plan: 1. Continue empiric abx course per C&S, f/u noncontrast chest CT, O2, BD as needed 2. Monitor Hgb post transfusion 3. Maintained on full-dose Lovenox 90 bid 4. Resumed sotalol 80 bid, cardizem CD 180 qd as hemodynamics tolerate 5. Plan for colonoscopy once clinically stable, will need outpt f/u of chest imaging
--- NOTE | 2018-08-10 09:55 | PN ---
Progress Note, Physician - Current Medication List Current Medications: Active Medications Albuterol Sulfate (Ventolin Hfa Inhaler -) 2 puff IH QID [facility] Last Admin: 08/09/18 17:45 Dose: 2 puff Chlorhexidine Gluconate (Hibiclens For Decolonization -) 1 applic TP HS [facility] Last Admin: 08/10/18 02:50 Dose: 1 applic Diltiazem HCl (Cardizem Cd -) 120 mg PO DAILY [facility] Enoxaparin Sodium (Lovenox -) 90 mg SQ BID [facility] Last Admin: 08/09/18 22:00 Dose: 90 mg Vancomycin HCl (Vancomycin (Pre-Docked)) 1,000 mg in 250 mls @ 166.667 mls/hr IVPB Q12H [facility]; Protocol Last Admin: 08/10/18 02:52 Dose: 166.667 mls/hr Cefepime HCl 2 gm/ Dextrose 100 mls @ 200 mls/hr IVPB Q8H-IV [facility]; Protocol Last Admin: 08/10/18 01:10 Dose: 200 mls/hr Famotidine/Sodium Chloride (Pepcid 20 Mg Premixed Ivpb -) 20 mg in 50 mls @ 100 mls/hr IVPB BID [facility] Last Admin: 08/09/18 21:30 Dose: 100 mls/hr Methylprednisolone Sodium Succinate (Solu-Medrol -) 60 mg IVPUSH Q8H-IV [facility] Last Admin: 08/10/18 02:51 Dose: 60 mg Mupirocin (Bactroban Ointment (For Decolonization) -) 1 applic NS BID [facility] Stop: 08/13/18 21:59 Last Admin: 08/09/18 22:00 Dose: 1 adh.patch Oxycodone HCl (Roxicodone -) 10 mg PO Q4H PRN PRN Reason: PAIN LEVEL 4 - 6 Last Admin: 08/10/18 03:15 Dose: 10 mg Sotalol HCl (Betapace -) 80 mg PO BID [facility] Tiotropium [place] (Spiriva Respimat) 2 puff IH DAILY [facility] Last Admin: 08/09/18 12:00 Dose: 2 puff - Objective Vital Signs: Vital Signs Temperature 98.2 F 08/10/18 02:00 Pulse Rate 107 H 08/10/18 08:00 Respiratory Rate 18 08/10/18 08:00 Blood Pressure 150/87 08/10/18 08:00 O2 Sat by Pulse Oximetry (%) 97 08/10/18 07:34 Cardiovascular: Yes: S1, S2 Respiratory: Yes: On Nasal O2, Rhonchi (improved) Gastrointestinal: Yes: Normal Bowel Sounds, Soft Labs: CBC, BMP 08/10/18 05:30 08/10/18 05:30 INR, PTT INR 1.13 (0.83-1.09) H 08/09/18 05:30 Problem List - Problems (1) Acute respiratory failure Assessment/Plan: iv abx nebs pulm and id on board improved ct scan noted Code(s): J96.00 - ACUTE RESPIRATORY FAILURE, UNSP W HYPOXIA OR HYPERCAPNIA Qualifiers: Respiratory failure complication: hypoxia Qualified Code(s): J96.01 - Acute respiratory failure with hypoxia (2) Anemia Assessment/Plan: transfused prbc hem w/u per dr cecilia rasmussen repeat Code(s): D64.9 - ANEMIA, UNSPECIFIED Qualifiers: Anemia type: unspecified type Qualified Code(s): D64.9 - Anemia, unspecified (3) COPD (chronic obstructive pulmonary disease) Assessment/Plan: nebs iv steroids Code(s): J44.9 - CHRONIC OBSTRUCTIVE PULMONARY DISEASE, UNSPECIFIED Qualifiers: (4) Pneumonia Assessment/Plan: IV abx Ct of chest noted--will discuss with oncology Code(s): J18.9 - PNEUMONIA, UNSPECIFIED ORGANISM Qualifiers: Pneumonia type: due to unspecified organism Laterality: unspecified laterality Lung location: unspecified part of lung Qualified Code(s): J18.9 - Pneumonia, unspecified organism (5) Squamous cell lung cancer Assessment/Plan: mass noted on repeat ct RX per Oncology Code(s): C34.90 - MALIGNANT NEOPLASM OF UNSP PART OF UNSP BRONCHUS OR LUNG (6) SVC syndrome Assessment/Plan: -On Lovenox Code(s): I87.1 - COMPRESSION OF VEIN
[2018-08-10] MEDS: ENOXAPARIN NA (PORCINE) 100 MG/1 ML DISP.SYRIN SQ SCH ×2 (09:57→22:18)
[2018-08-10] MEDS ORDERED: SOTALOL HCL 80 MG TABLET (FP) PO SCH (10:00)
[2018-08-10] MEDS: FAMOTIDINE 20 MG/50 ML IVPB 20 MG/50 ML MG IVPB SCH (10:02)
--- NOTE | 2018-08-10 10:43 | PN ---
Progress Note, Physician History of Present Illness: MORE AWAKE AND ALERT FEELING BETTER S/P BLOOD TRANSFUSION NO FOCAL COMPLAINT DENIES CHEST PAIN/ DYSPNEA NO C/O F/C AFEBRILE LEUKOPENIC SPUTUM C/S MIXED LEGIONELLA AG (-) - Current Medication List Current Medications: Active Medications Albuterol Sulfate (Ventolin Hfa Inhaler -) 2 puff IH QID [facility] Last Admin: 08/10/18 09:43 Dose: 2 puff Chlorhexidine Gluconate (Hibiclens For Decolonization -) 1 applic TP HS [facility] Last Admin: 08/10/18 02:50 Dose: 1 applic Diltiazem HCl (Cardizem Cd -) 120 mg PO DAILY [facility] Last Admin: 08/10/18 09:54 Dose: 120 mg Enoxaparin Sodium (Lovenox -) 90 mg SQ BID [facility] Last Admin: 08/10/18 09:57 Dose: 90 mg Vancomycin HCl (Vancomycin (Pre-Docked)) 1,000 mg in 250 mls @ 166.667 mls/hr IVPB Q12H [facility]; Protocol Last Admin: 08/10/18 02:52 Dose: 166.667 mls/hr Cefepime HCl 2 gm/ Dextrose 100 mls @ 200 mls/hr IVPB Q8H-IV [facility]; Protocol Last Admin: 08/10/18 01:10 Dose: 200 mls/hr Famotidine/Sodium Chloride (Pepcid 20 Mg Premixed Ivpb -) 20 mg in 50 mls @ 100 mls/hr IVPB BID [facility] Last Admin: 08/10/18 10:02 Dose: 100 mls/hr Methylprednisolone Sodium Succinate (Solu-Medrol -) 60 mg IVPUSH Q8H-IV [facility] Last Admin: 08/10/18 09:47 Dose: 60 mg Mupirocin (Bactroban Ointment (For Decolonization) -) 1 applic NS BID [facility] Stop: 08/13/18 21:59 Last Admin: 08/10/18 09:43 Dose: 1 applic Oxycodone HCl (Roxicodone -) 10 mg PO Q4H PRN PRN Reason: PAIN LEVEL 4 - 6 Last Admin: 08/10/18 03:15 Dose: 10 mg Sotalol HCl (Betapace -) 80 mg PO BID [facility] Last Admin: 08/10/18 09:54 Dose: 80 mg Tiotropium [place] (Spiriva Respimat) 2 puff IH DAILY [facility] Last Admin: 08/10/18 09:45 Dose: 2 puff - Objective Vital Signs: Vital Signs Temperature 97.6 F 08/10/18 10:00 Pulse Rate 108 H 08/10/18 10:00 Respiratory Rate 14 08/10/18 10:00 Blood Pressure 143/94 08/10/18 10:00 O2 Sat by Pulse Oximetry (%) 97 08/10/18 07:34 Constitutional: Yes: No Distress Eyes: Yes: Conjunctiva Clear Cardiovascular: Yes: Regular Rate and Rhythm, S1, S2 Respiratory: Yes: Diminished Gastrointestinal: Yes: Normal Bowel Sounds, Soft. No: Tenderness Labs: CBC, BMP 08/10/18 05:30 08/10/18 05:30 INR, PTT INR 1.13 (0.83-1.09) H 08/09/18 05:30 Assessment/Plan S/P NEAR SYNCOPE SEVERE ANEMIA S/P TRANSFUSION LUNG CA R/O PNEUMONIA LEUKOPENIA ANC 2.1 AWAIT C/S CONTINUE EMPIRIC VANCOMYCIN / CEFEPIME
--- NOTE | 2018-08-10 11:40 | PN ---
Teaching Attending Note Name of Resident: Jaime Kruger ATTENDING PHYSICIAN STATEMENT I saw and evaluated the patient. I reviewed the resident's note and discussed the case with the resident. I agree with the resident's findings and plan as documented. SUBJECTIVE: Pt seen and examined in the ICU. Breathing better today. No fevers. Sputum clear but growing gram negative rods. CT chest done showing dense consolidation RLL, possible obstruction in bronchus intermedius. OBJECTIVE: Vital Signs Period Temp Pulse Resp BP Sys/Gtz Pulse Ox Last 24 Hr 97.6 F-99.2 F 82-108 12-24 104-158/59-94 97-97 Intake & Output 08/07/18 08/08/18 08/09/18 08/10/18 23:59 23:59 23:59 23:59 Intake Total 1700 3370 420 Output Total 800 1200 200 Balance 900 2170 220 Weight 98.6 kg Gen: less tachypneic Heart: RRR Lung: scattered rhonchi, decreased breath sounds right 2/3 up Abd: soft, nontender Ext: no edema CBC, BMP 08/10/18 05:30 08/10/18 05:30 Active Medications Albuterol Sulfate (Ventolin Hfa Inhaler -) 2 puff IH QID [facility] Last Admin: 08/10/18 09:43 Dose: 2 puff Chlorhexidine Gluconate (Hibiclens For Decolonization -) 1 applic TP HS [facility] Last Admin: 08/10/18 02:50 Dose: 1 applic Diltiazem HCl (Cardizem Cd -) 120 mg PO DAILY [facility] Last Admin: 08/10/18 09:54 Dose: 120 mg Enoxaparin Sodium (Lovenox -) 90 mg SQ BID [facility] Last Admin: 08/10/18 09:57 Dose: 90 mg Vancomycin HCl (Vancomycin (Pre-Docked)) 1,000 mg in 250 mls @ 166.667 mls/hr IVPB Q12H [facility]; Protocol Last Admin: 08/10/18 02:52 Dose: 166.667 mls/hr Cefepime HCl 2 gm/ Dextrose 100 mls @ 200 mls/hr IVPB Q8H-IV [facility]; Protocol Last Admin: 08/10/18 01:10 Dose: 200 mls/hr Famotidine/Sodium Chloride (Pepcid 20 Mg Premixed Ivpb -) 20 mg in 50 mls @ 100 mls/hr IVPB BID [facility] Last Admin: 08/10/18 10:02 Dose: 100 mls/hr Methylprednisolone Sodium Succinate (Solu-Medrol -) 60 mg IVPUSH Q8H-IV [facility] Last Admin: 08/10/18 09:47 Dose: 60 mg Mupirocin (Bactroban Ointment (For Decolonization) -) 1 applic NS BID [facility] Stop: 08/13/18 21:59 Last Admin: 08/10/18 09:43 Dose: 1 applic Oxycodone HCl (Roxicodone -) 10 mg PO Q4H PRN PRN Reason: PAIN LEVEL 4 - 6 Last Admin: 08/10/18 03:15 Dose: 10 mg Sotalol HCl (Betapace -) 80 mg PO BID [facility] Last Admin: 08/10/18 09:54 Dose: 80 mg Tiotropium [place] (Spiriva Respimat) 2 puff IH DAILY [facility] Last Admin: 08/10/18 09:45 Dose: 2 puff ASSESSMENT AND PLAN: Pneumonia Severe Sepsis Acute on Chronic Hypoxic Respiratory Failure NSCLC (Squamous Cell Ca) - s/p chemo/RT Acute COPD Exacerbation Paroxysmal Atrial Fibrillation h/o SVC Thrombus s/p thrombectomy/thrombolysis HTN Anemia h/o Hep C - continue antibiotics - f/u cultures - continue anticoagulation - O2 to keep Spo2 >90% - inhaled bronchodilators - continue empiric medrol - pain control - replete lytes - transfuse PRBC - monitor H/H - can monitor on floor - will need outpt f/u of chest imaging critical care time spent in reviewing chart, evaluating patient and formulating plan 35 min
--- NOTE | 2018-08-10 11:44 | PN ---
Physical Exam: SUBJECTIVE: Patient seen and examined at bedside. No overnight events. Complaining of back pain that is chronic. Lack of sleep. Breathing is improved. Oxygen saturation adequate on NC. Denies CP,MACKEY, palpitations, abdominal pain, nausea, vomiting, fever or chills. OBJECTIVE: Vital Signs Period Temp Pulse Resp BP Sys/Gtz Pulse Ox Last 24 Hr 97.6 F-99.2 F 82-108 12-24 104-158/59-94 97-97 GENERAL: AAOx3, NAD HEAD: NCAT EYES: PERRLA,EOMI, sclera anicteric, conjunctiva clear. No lid lag. EARS, NOSE, THROAT: moist mucous membranes. NECK: Normal ROM, supple without lymphadenopathy, JVD, or masses. LUNGS: Diminished breath sounds > R base. scattered wheezes and rhonchi, No crackles or accessory muscle use. HEART: RRR, normal S1 and S2 without murmur, rub or gallop. ABDOMEN: Soft, NTND, NABS, no guarding, no rebound, no masses. No hepatomegaly or splenomegaly. LOWER EXTREMITIES: 2+ pulses, warm, well-perfused. No calf tenderness. 1+ edema on left LE and trace on RLE NEUROLOGICAL: Cranial nerves II-XII intact. Normal speech. gait not observed. PSYCHIATRIC: Cooperative. Good eye contact. Appropriate mood and affect. SKIN: Warm, dry, normal turgor, no rashes or lesions noted. Laboratory Results - last 24 hr 08/09/18 08/09/18 08/09/18 05:30 05:30 12:03 WBC RBC Hgb Hct MCV MCH MCHC RDW Plt Count MPV Absolute Neuts (auto) Total Counted Neutrophils % Neutrophils % (Manual) Lymphocytes % Lymphocytes % (Manual) Monocytes % Monocytes % (Manual) Eosinophils % Basophils % Myelocytes % (Man) Nucleated RBC % Hypochromia Platelet Estimate Polychromasia Anisocytosis Microcytosis Haptoglobin 300 H Sodium Potassium Chloride Carbon Dioxide Anion Gap BUN Creatinine Creat Clearance w eGFR Random Glucose Calcium Phosphorus Magnesium Iron 40 TIBC 226 L Iron Saturation 18 Total Bilirubin AST ALT Alkaline Phosphatase Total Protein Albumin Vitamin B12 Serum Folate Direct Antiglob Test Negative 08/09/18 08/09/18 08/10/18 12:03 12:03 05:30 WBC 3.3 L 2.9 L RBC 2.52 L 2.60 L Hgb 8.3 L 8.7 L Hct 23.9 L D 24.1 L MCV 94.9 92.7 MCH 33.1 33.5 MCHC 34.9 36.1 H RDW 23.3 H 22.2 H Plt Count 166 160 MPV 7.5 7.5 Absolute Neuts (auto) 1.7 2.1 Total Counted 100 Neutrophils % 52.6 71.9 D Neutrophils % (Manual) 54.0 Lymphocytes % 27.9 21.0 D Lymphocytes % (Manual) 36.0 D Monocytes % 16.5 H 6.8 Monocytes % (Manual) 9 D Eosinophils % 2.6 0.1 D Basophils % 0.4 0.2 Myelocytes % (Man) 1 D Nucleated RBC % 2 H 1 H Hypochromia 1+ Platelet Estimate Normal Polychromasia 2+ Anisocytosis 1+ Microcytosis 1+ Haptoglobin Sodium Potassium Chloride Carbon Dioxide Anion Gap BUN Creatinine Creat Clearance w eGFR Random Glucose Calcium Phosphorus Magnesium Iron TIBC Iron Saturation Total Bilirubin AST ALT Alkaline Phosphatase Total Protein Albumin Vitamin B12 687 Serum Folate 24 H Direct Antiglob Test 08/10/18 05:30 WBC RBC Hgb Hct MCV MCH MCHC RDW Plt Count MPV Absolute Neuts (auto) Total Counted Neutrophils % Neutrophils % (Manual) Lymphocytes % Lymphocytes % (Manual) Monocytes % Monocytes % (Manual) Eosinophils % Basophils % Myelocytes % (Man) Nucleated RBC % Hypochromia Platelet Estimate Polychromasia Anisocytosis Microcytosis Haptoglobin Sodium 138 Potassium 4.3 Chloride 105 Carbon Dioxide 27 Anion Gap 6 L BUN 5 L Creatinine 0.7 Creat Clearance w eGFR > 60 Random Glucose 163 H Calcium 7.7 L Phosphorus 3.6 Magnesium 2.1 Iron TIBC Iron Saturation Total Bilirubin 0.2 AST 13 L ALT 16 Alkaline Phosphatase 51 Total Protein 6.4 Albumin 2.5 L Vitamin B12 Serum Folate Direct Antiglob Test Active Medications Generic Name Dose Route Start Last Admin Trade Name Freq PRN Reason Stop Dose Admin Albuterol Sulfate 2 puff 08/08/18 22:00 08/10/18 09:43 Ventolin Hfa Inhaler - IH 2 puff QID [facility] Administration Chlorhexidine Gluconate 1 applic 08/08/18 22:00 08/10/18 02:50 Hibiclens For Decolonization - TP 1 applic HS [facility] Administration Diltiazem HCl 120 mg 08/10/18 10:00 08/10/18 09:54 Cardizem Cd - PO 120 mg DAILY [facility] Administration Enoxaparin Sodium 90 mg 08/08/18 22:00 08/10/18 09:57 Lovenox - SQ 90 mg BID [facility] Administration Vancomycin HCl 1,000 mg in 250 mls @ 166.667 mls/hr 08/09/18 03:00 08/10/18 02:52 Vancomycin (Pre-Docked) IVPB 166.667 mls/hr Q12H [facility] Administration Protocol Cefepime HCl 2 gm/ Dextrose 100 mls @ 200 mls/hr 08/08/18 18:15 08/10/18 01: 10 IVPB 200 mls/hr Q8H-IV [facility] Administration Protocol Famotidine/Sodium Chloride 20 mg in 50 mls @ 100 mls/hr 08/08/18 22:00 10:02 Pepcid 20 Mg Premixed Ivpb - IVPB 100 mls/hr BID [facility] Administration Methylprednisolone Sodium Succinate 60 mg 08/09/18 11:45 08/10/18 09:47 Solu-Medrol - IVPUSH 60 mg Q8H-IV [facility] Administration Mupirocin 1 applic 08/08/18 22:00 08/10/18 09:43 Bactroban Ointment (For Decolonization) - NS 08/13/18 21:59 1 applic BID [facility] Administration Oxycodone HCl 10 mg 08/09/18 17:54 08/10/18 03:15 Roxicodone - PO 10 mg Q4H PRN Administration PAIN LEVEL 4 - 6 Sotalol HCl 80 mg 08/10/18 10:00 08/10/18 09:54 Betapace - PO 80 mg BID [facility] Administration Tiotropium [place] 2 puff 08/09/18 10:00 08/10/18 09:45 Spiriva Respimat IH 2 puff DAILY [facility] Administration ASSESSMENT/PLAN: 63 yo M with pmhx of squamous cell carcinoma (s/p taxol therapy last treatment 3 weeks ago) , LISA, COPD( on 3L @ home), paroxysmal afib (on lovenox) , SVC syndrome presents to ER with two week history of shortness of breath and productive cough admitted to ICU for acute hypoxic respiratory failure 2/2 PNA. NEURO: * awake and alert * tylenol for fever. * Oxycodone for chronic pain. * monitor for acute change in mental status. CV: * restarted Cardizem and sotalol for P. Afib. * Continue Lovenox 90 BID * Maintain MAP >65 PULM: * CXR shows right sided consolidation * Saturating well on NC * CT done showed. * BD TX with albuterol PRN. * Solumedrol 60mg Q8H * continue Spiriva * Maintain Spo2 >90% HEME/ONC: * history of Squamous Ca s/p chemo * Followed by Mag/Kat[facility] * Hgb has remained stable for 48 hrs. * repeat h/h in am * normal transfusion thresholds. * B12 and Folate WNL * hemolysis w/u pending. GI: * No active issues. * complaining of nausea- will give Zofran. ID: * Consolidation seen on CXR * ID consult appreciated. * Continue Cefepime and Vanco. FEN: * Fluids stopped 2/2 HTN * Will continue to monitor and replete lytes PRN * regular diet. PPX: * Pepcid * Lovenox. Dispo: stable for transfer to med/surg floor. Visit type - Emergency Visit Emergency Visit: Yes ED Registration Date: 08/08/18 Care time: The patient presented to the Emergency Department on the above date and was hospitalized for further evaluation of their emergent condition. - New Patient This patient is new to me today: No - Critical Care Critical Care patient: Yes Total Critical Care Time (in minutes): 33 Critical Care Statement: The care of this patient involved high complexity decision making to prevent further life threatening deterioration of the patient 's condition and/or to evaluate & treat vital organ system(s) failure or risk of failure.
[2018-08-10] MEDS ORDERED: CEFEPIME 2 GM in DEXTROSE 5%-WATER - 50 ML IVPB SCH (18:00)
[2018-08-10] MEDS ORDERED: FAMOTIDINE 20 MG/50 ML IVPB 20 MG/50 ML MG IVPB SCH (22:00)
[2018-08-10] MEDS: SOTALOL HCL 80 MG TABLET (FP) PO SCH (22:00)
[2018-08-10] MEDS ORDERED: MUPIROCIN 2% TOPICAL OINTMENT FOR DECOLONIZATION NS SCH (22:00)
[2018-08-10] MEDS ORDERED: CHLORHEXIDINE GLUCONATE 4% CLEANSER FOR DECOLONIZATION TP SCH (22:00)
[2018-08-11] MEDS: oxyCODONE HCL 5 MG TABLET PO PRN ×3 (00:01→22:13)
[2018-08-11] MEDS: CEFEPIME 2 GM in DEXTROSE 5%-WATER 100 ML IVPB SCH ×3 (03:01→18:05)
[2018-08-11] MEDS: methylPREDNISolone NA SUCC 40 MG/1 ML VIAL IVPUSH SCH ×3 (03:21→18:05)
[2018-08-11] MEDS: VANCOMYCIN 1 GRAM (PRE-DOCKED) 1,000 MG/250 ML BAG IVPB SCH ×2 (03:34→16:04)
[2018-08-11] MEDS: ALBUTEROL SO4 8 GM HFA INHALER IH SCH ×3 (07:29→10:58)
[2018-08-11 07:52] LABS: BASO % 0.1 % (0-2.0); HEMATOCRIT 26.6 % (35.4-49); HEMOGLOBIN 9.2 GM/dL (11.7-16.9); LYMPH % 8.3 % (8-40); MCH 32.7 pg (25.7-33.7); MCHC 34.5 g/dl (32.0-35.9); MEAN CELL VOLUME 94.7 fl (80-96); MEAN PLT VOLUME 7.5 fl (7.5-11.1); MONO % 11.5 % (3.8-10.2); NEUT % 80.1 % (42.8-82.8); PLATELET COUNT 213 K/MM3 (134-434); RBC 2.81 M/mm3 (4.00-5.60); RDW 22.5 % (11.9-15.9)
[2018-08-11] MEDS ORDERED: HYDROCORTISONE 2.5% LOTION - 1 BOTTLE TP PRN (08:11)
--- NOTE | 2018-08-11 08:14 | PN ---
Progress Note, Physician Chief Complaint: AWAKE ALERT EVENTS AND NOTES REVIEWED C/O LEG ITCHING - Current Medication List Current Medications: Active Medications Albuterol Sulfate (Ventolin Hfa Inhaler -) 2 puff IH QID [facility] Last Admin: 08/11/18 07:30 Dose: Not Given Diltiazem HCl (Cardizem Cd -) 120 mg PO DAILY [facility] Enoxaparin Sodium (Lovenox -) 90 mg SQ BID [facility] Last Admin: 08/10/18 22:18 Dose: 90 mg Hydrocortisone (Hytone 2.5% Lotion -) 1 applic TP TID PRN PRN Reason: FOR ITCHING Famotidine/Sodium Chloride (Pepcid 20 Mg Premixed Ivpb -) 20 mg in 50 mls @ 100 mls/hr IVPB BID [facility] Last Admin: 08/10/18 22:24 Dose: 100 mls/hr Vancomycin HCl (Vancomycin (Pre-Docked)) 1,000 mg in 250 mls @ 166.667 mls/hr IVPB Q12H [facility]; Protocol Last Admin: 08/11/18 03:34 Dose: 166.667 mls/hr Cefepime HCl 2 gm/ Dextrose 100 mls @ 200 mls/hr IVPB Q8H-IV [facility]; Protocol Last Admin: 08/11/18 03:01 Dose: 200 mls/hr Methylprednisolone Sodium Succinate (Solu-Medrol -) 60 mg IVPUSH Q8H-IV [facility] Last Admin: 08/11/18 03:21 Dose: 60 mg Oxycodone HCl (Roxicodone -) 10 mg PO Q4H PRN PRN Reason: PAIN LEVEL 4 - 6 Last Admin: 08/11/18 00:01 Dose: 10 mg Sotalol HCl (Betapace -) 80 mg PO BID [facility] Last Admin: 08/10/18 22:00 Dose: 80 mg Tiotropium [place] (Spiriva Respimat) 2 puff IH DAILY [facility] - Objective Vital Signs: Vital Signs Temperature 97.4 F L 08/11/18 06:00 Pulse Rate 82 08/11/18 06:00 Respiratory Rate 20 08/11/18 06:00 Blood Pressure 132/85 08/11/18 06:00 O2 Sat by Pulse Oximetry (%) 97 08/10/18 07:34 Constitutional: Yes: No Distress Eyes: Yes: WNL HENT: Yes: WNL Neck: Yes: WNL Cardiovascular: Yes: Regular Rate and Rhythm Respiratory: Yes: Diminished, On Nasal O2 Gastrointestinal: Yes: WNL Genitourinary: Yes: WNL Musculoskeletal: Yes: Muscle Weakness Extremities: Yes: WNL Edema: No Peripheral Pulses WNL: Yes Integumentary: Yes: Rash Psychiatric: Yes: WNL Labs: CBC, BMP 08/11/18 06:30 INR, PTT INR 1.13 (0.83-1.09) H 08/09/18 05:30 Problem List - Problems (1) Acute respiratory failure Code(s): J96.00 - ACUTE RESPIRATORY FAILURE, UNSP W HYPOXIA OR HYPERCAPNIA Qualifiers: Respiratory failure complication: hypoxia Qualified Code(s): J96.01 - Acute respiratory failure with hypoxia (2) Anemia Code(s): D64.9 - ANEMIA, UNSPECIFIED Qualifiers: Anemia type: unspecified type Qualified Code(s): D64.9 - Anemia, unspecified (3) COPD (chronic obstructive pulmonary disease) Code(s): J44.9 - CHRONIC OBSTRUCTIVE PULMONARY DISEASE, UNSPECIFIED Qualifiers: COPD type: unspecified COPD Qualified Code(s): J44.9 - Chronic obstructive pulmonary disease, unspecified (4) Pneumonia Code(s): J18.9 - PNEUMONIA, UNSPECIFIED ORGANISM Qualifiers: Pneumonia type: due to unspecified organism Laterality: unspecified laterality Lung location: unspecified part of lung Qualified Code(s): J18.9 - Pneumonia, unspecified organism (5) Squamous cell lung cancer Code(s): C34.90 - MALIGNANT NEOPLASM OF UNSP PART OF UNSP BRONCHUS OR LUNG (6) Afib Code(s): I48.91 - UNSPECIFIED ATRIAL FIBRILLATION (7) DVT (deep venous thrombosis) Code(s): I82.409 - ACUTE EMBOLISM AND THOMBOS UNSP DEEP VN UNSP LOWER EXTREMITY Qualifiers: DVT location: upper extremity Affected thrombotic vein of extremity: other upper extremity vein Chronicity: acute Laterality: right Qualified Code(s) : I82.621 - Acute embolism and thrombosis of deep veins of right upper extremity (8) SVC syndrome Code(s): I87.1 - COMPRESSION OF VEIN (9) Smoker Code(s): F17.200 - NICOTINE DEPENDENCE, UNSPECIFIED, UNCOMPLICATED Assessment/Plan CONTINUE IV ABX/NEBS/RESP SUPPORT PATIENT IMPROVING NO N/V DENIES CHEST PAIN ON LOVENOX FOR AFIB AND DVT. HYTONE 2.5% TID FOR LEGS MONITOR LABS OOB TO CHAIR
[2018-08-11 08:41] LABS: ALBUMIN 2.7 g/dl (3.4-5.0); ALK PHOS 50 U/L (45-117); ANION GAP 7 MMOL/L (8-16); BILIRUBIN,TOTAL 0.2 mg/dL (0.2-1); BLOOD UREA NITROGEN 10 mg/dL (7-18); CALCIUM 8.4 mg/dL (8.5-10.1); CHLORIDE 102 mmol/L (98-107); CO2 29 mmol/L (21-32); CREATININE 0.7 mg/dL (0.55-1.3); GLUCOSE,RANDOM 140 mg/dL (74-106); POTASSIUM 4.4 mmol/L (3.5-5.1); SGOT/AST 13 U/L (15-37); SGPT/ALT 18 U/L (13-61); SODIUM 139 mmol/L (136-145); TOT PROT 6.4 g/dl (6.4-8.2)
--- NOTE | 2018-08-11 10:36 | PN ---
Progress Note (short form) - Note Progress Note: Breathing is slowly improving but still with a congested cough. No CP. Slight, intermittent blood tinged sputum. Intake & Output 08/08/18 08/09/18 08/10/18 08/11/18 23:59 23:59 23:59 23:59 Intake Total 1700 3370 1470 Output Total 800 1200 1250 400 Balance 900 2170 220 -400 Weight 217 lb 6.012 oz 217 lb Last Vital Signs Temp Pulse Resp BP Pulse Ox 97.4 F L 82 20 132/85 97 08/11/18 06:00 08/11/18 06:00 08/11/18 06:00 08/11/18 06:00 08/10/18 07:34 Active Medications Albuterol Sulfate (Ventolin Hfa Inhaler -) 2 puff IH QID [facility] Last Admin: 08/11/18 07:30 Dose: Not Given Diltiazem HCl (Cardizem Cd -) 120 mg PO DAILY [facility] Enoxaparin Sodium (Lovenox -) 90 mg SQ BID [facility] Last Admin: 08/10/18 22:18 Dose: 90 mg Hydrocortisone (Hytone 2.5% Lotion -) 1 applic TP TID PRN PRN Reason: FOR ITCHING Vancomycin HCl (Vancomycin (Pre-Docked)) 1,000 mg in 250 mls @ 166.667 mls/hr IVPB Q12H [facility]; Protocol Last Admin: 08/11/18 03:34 Dose: 166.667 mls/hr Cefepime HCl 2 gm/ Dextrose 100 mls @ 200 mls/hr IVPB Q8H-IV [facility]; Protocol Last Admin: 08/11/18 03:01 Dose: 200 mls/hr Methylprednisolone Sodium Succinate (Solu-Medrol -) 60 mg IVPUSH Q8H-IV [facility] Last Admin: 08/11/18 03:21 Dose: 60 mg Oxycodone HCl (Roxicodone -) 10 mg PO Q4H PRN PRN Reason: PAIN LEVEL 4 - 6 Last Admin: 08/11/18 00:01 Dose: 10 mg Ranitidine HCl (Zantac -) 150 mg PO BID [facility] Sotalol HCl (Betapace -) 80 mg PO BID [facility] Last Admin: 08/10/18 22:00 Dose: 80 mg Tiotropium [place] (Spiriva Respimat) 2 puff IH DAILY [facility] OBJECTIVE: Gen: Awake and alert, NAD Heart: RRR Lung: scattered coarse rhonchi, decreased breath sounds right, no wheeze Abd: soft, nontender Ext: no edema Laboratory Results - last 24 hr 08/10/18 08/11/18 08/11/18 14:20 06:30 06:30 WBC 5.0 RBC 2.81 L Hgb 9.2 L Hct 26.6 L MCV 94.7 MCH 32.7 MCHC 34.5 RDW 22.5 H Plt Count 213 D MPV 7.5 Absolute Neuts (auto) 4.0 Neutrophils % 80.1 Lymphocytes % 8.3 D Monocytes % 11.5 H Eosinophils % 0.0 D Basophils % 0.1 Nucleated RBC % 1 H Sodium 139 Potassium 4.4 Chloride 102 Carbon Dioxide 29 Anion Gap 7 L BUN 10 Creatinine 0.7 Creat Clearance w eGFR > 60 Random Glucose 140 H Calcium 8.4 L Total Bilirubin 0.2 AST 13 L ALT 18 Alkaline Phosphatase 50 Total Protein 6.4 Albumin 2.7 L Vancomycin Pre-Dose 8.1 L ASSESSMENT AND PLAN: Pneumonia Severe Sepsis Acute on Chronic Hypoxic Respiratory Failure NSCLC (Squamous Cell Ca) - s/p chemo/RT Acute COPD Exacerbation Paroxysmal Atrial Fibrillation h/o SVC Thrombus s/p thrombectomy/thrombolysis HTN Anemia h/o Hep C - continue antibiotics per ID - AC - O2 to keep Spo2 >90% - inhaled bronchodilators - Can taper Medrol in AM if stable/improved - pain control - replete lytes - Normal transfusion thresholds - will need outpt f/u of chest imaging Dr Jean
[2018-08-11] MEDS ORDERED: PT OWN MED DRAWER 7, Y5N ONE ×3 (10:56→20:49)
[2018-08-11] MEDS: ENOXAPARIN NA (PORCINE) 100 MG/1 ML DISP.SYRIN SQ SCH ×2 (10:57→21:00)
[2018-08-11] MEDS: SOTALOL HCL 80 MG TABLET (FP) PO SCH ×2 (10:58→21:00)
[2018-08-11] MEDS: RANITIDINE HCL 150 MG TABLET (FP) PO SCH ×2 (10:58→21:00)
[2018-08-11] MEDS: TIOTROPIUM BROMIDE 2.5 MCG (SPIRIVA) RESPIMAT INHALER IH SCH (10:59)
--- NOTE | 2018-08-11 11:29 | PN ---
Progress Note, Physician History of Present Illness: Dyspnea, fatigue and near syncope improving with correction of anemia and treatment of pneumonia and COPD. Remains in SR. - Current Medication List Current Medications: Active Medications Albuterol Sulfate (Ventolin Hfa Inhaler -) 2 puff IH QID [facility] Last Admin: 08/11/18 10:58 Dose: 2 puff Diltiazem HCl (Cardizem Cd -) 120 mg PO DAILY [facility] Last Admin: 08/11/18 10:58 Dose: 120 mg Enoxaparin Sodium (Lovenox -) 90 mg SQ BID [facility] Last Admin: 08/11/18 10:57 Dose: 90 mg Hydrocortisone (Hytone 2.5% Lotion -) 1 applic TP TID PRN PRN Reason: FOR ITCHING Last Admin: 08/11/18 10:59 Dose: 1 applic Vancomycin HCl (Vancomycin (Pre-Docked)) 1,000 mg in 250 mls @ 166.667 mls/hr IVPB Q12H [facility]; Protocol Last Admin: 08/11/18 03:34 Dose: 166.667 mls/hr Cefepime HCl 2 gm/ Dextrose 100 mls @ 200 mls/hr IVPB Q8H-IV [facility]; Protocol Last Admin: 08/11/18 10:57 Dose: 200 mls/hr Methylprednisolone Sodium Succinate (Solu-Medrol -) 60 mg IVPUSH Q8H-IV [facility] Last Admin: 08/11/18 10:57 Dose: 60 mg Oxycodone HCl (Roxicodone -) 10 mg PO Q4H PRN PRN Reason: PAIN LEVEL 4 - 6 Last Admin: 08/11/18 00:01 Dose: 10 mg Ranitidine HCl (Zantac -) 150 mg PO BID [facility] Last Admin: 08/11/18 10:58 Dose: 150 mg Sotalol HCl (Betapace -) 80 mg PO BID [facility] Last Admin: 08/11/18 10:58 Dose: 80 mg Tiotropium [place] (Spiriva Respimat) 2 puff IH DAILY [facility] Last Admin: 08/11/18 10:59 Dose: 2 puff - Objective Vital Signs: Vital Signs Temperature 97.4 F L 08/11/18 06:00 Pulse Rate 82 08/11/18 06:00 Respiratory Rate 20 08/11/18 06:00 Blood Pressure 132/85 08/11/18 06:00 O2 Sat by Pulse Oximetry (%) 97 08/10/18 07:34 Constitutional: Yes: No Distress, Calm, Thin Neck: Yes: Supple Cardiovascular: Yes: Regular Rate and Rhythm Respiratory: Yes: Regular, Diminished, On Nasal O2 Gastrointestinal: Yes: Normal Bowel Sounds, Soft Edema: No Labs: CBC, BMP 08/11/18 06:30 08/11/18 06:30 INR, PTT INR 1.13 (0.83-1.09) H 08/09/18 05:30 Problem List - Problems (1) COPD (chronic obstructive pulmonary disease) Code(s): J44.9 - CHRONIC OBSTRUCTIVE PULMONARY DISEASE, UNSPECIFIED Qualifiers: COPD type: unspecified COPD Qualified Code(s): J44.9 - Chronic obstructive pulmonary disease, unspecified (2) Pneumonia Code(s): J18.9 - PNEUMONIA, UNSPECIFIED ORGANISM Qualifiers: Pneumonia type: due to unspecified organism Laterality: unspecified laterality Lung location: unspecified part of lung Qualified Code(s): J18.9 - Pneumonia, unspecified organism (3) Anticoagulant long-term use Code(s): Z79.01 - 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 (CURRENT) USE OF 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 (4) DVT (deep venous thrombosis) Code(s): I82.409 - ACUTE EMBOLISM AND THOMBOS UNSP DEEP VN UNSP LOWER EXTREMITY Qualifiers: DVT location: upper extremity Affected thrombotic vein of extremity: other upper extremity vein Chronicity: acute Laterality: right Qualified Code(s) : I82.621 - Acute embolism and thrombosis of deep veins of right upper extremity (5) HTN (hypertension) Code(s): I10 - ESSENTIAL (PRIMARY) HYPERTENSION (6) Lung cancer Code(s): C34.90 - MALIGNANT NEOPLASM OF UNSP PART OF UNSP BRONCHUS OR LUNG Qualifiers: Laterality: right Lung location: upper lobe of lung Qualified Code(s): C34.11 - Malignant neoplasm of upper lobe, right bronchus or lung (7) Paroxysmal atrial fibrillation Code(s): I48.0 - PAROXYSMAL ATRIAL FIBRILLATION (8) SVC syndrome Code(s): I87.1 - COMPRESSION OF VEIN (9) Shortness of breath Code(s): R06.02 - SHORTNESS OF BREATH (10) Anemia Code(s): D64.9 - ANEMIA, UNSPECIFIED Qualifiers: Anemia type: unspecified type Qualified Code(s): D64.9 - Anemia, unspecified Assessment/Plan 02/22/2018 Holter Monitor: SR with paroxysmal afib/flutter with aberrant conduction (RBBB morphology) 5.44% of time, frequent PAC, PVC 12/22/2017 Large irregular cavitary soft tissue mass involving right superior mediastinum in right to mid and superior hilar region suspicious for primary or secondary malignancy 04/07/2018 Large central RUL mass with invasion of mediastinum and adjacent consolidation/ATX RUL, distal SVC stenosis without obstruction with collateralization 03/11/2018 Echo: Normal LV and RV size and fxn with abnl LV compliance, mildly dilated ascending aorta, mild MR, TR. tr SD 03/29/2018 ETT Myoview: Negative maximal stress test for ischemia, LVEF 60% 04/14/2018 Brain MRI: No metastases 1. Post-obstructive pneumonia 2. Anemia s/p 3 U pRBC transfusion 3. 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 COPD/Emphysema 6. Palpitations, Paroxysmal Atrial Fibrillation->SR [id number] on anticoagulation 7. Diastolic LV dysfunction with class 0 NYHA classification LV failure 8. HTN/HCVD 9. Hep C post-treatment Plan: 1. Continue empiric abx course per C&S, O2, BD as needed, steroid taper 2. Monitor Hgb post transfusion 3. Maintained on full-dose Lovenox 90 bid 4. Continue sotalol 80 bid, cardizem CD 120 qd as hemodynamics tolerate 5. Plan for colonoscopy once clinically stable, will need outpt f/u of chest imaging
[2018-08-11] MEDS: ALBUTEROL SO4 0.083% IH SOL 2.5 MG/3 ML VIAL.NEB. NEB SCH ×2 (16:43→20:07)
--- NOTE | 2018-08-11 21:52 | PN ---
Progress Note, Physician History of Present Illness: AWAKE AND ALERT NO FOCAL COMPLAINT DENIES CHEST PAIN/ DYSPNEA NO C/O F/C AFEBRILE SPUTUM C/S MIXED LEGIONELLA AG (-) - Current Medication List Current Medications: Active Medications Albuterol Sulfate (Ventolin 0.083% Nebulizer Soln -) 1 amp NEB RQID [facility] Last Admin: 08/11/18 20:07 Dose: 1 amp Diltiazem HCl (Cardizem Cd -) 120 mg PO DAILY [facility] Last Admin: 08/11/18 10:58 Dose: 120 mg Enoxaparin Sodium (Lovenox -) 90 mg SQ BID [facility] Last Admin: 08/11/18 10:57 Dose: 90 mg Hydrocortisone (Hytone 2.5% Lotion -) 1 applic TP TID PRN PRN Reason: FOR ITCHING Last Admin: 08/11/18 10:59 Dose: 1 applic Vancomycin HCl (Vancomycin (Pre-Docked)) 1,000 mg in 250 mls @ 166.667 mls/hr IVPB Q12H [facility]; Protocol Last Admin: 08/11/18 16:04 Dose: 166.667 mls/hr Cefepime HCl 2 gm/ Dextrose 100 mls @ 200 mls/hr IVPB Q8H-IV [facility]; Protocol Last Admin: 08/11/18 18:05 Dose: 200 mls/hr Methylprednisolone Sodium Succinate (Solu-Medrol -) 60 mg IVPUSH Q8H-IV [facility] Last Admin: 08/11/18 18:05 Dose: 60 mg Oxycodone HCl (Roxicodone -) 10 mg PO Q4H PRN PRN Reason: PAIN LEVEL 4 - 6 Last Admin: 08/11/18 18:12 Dose: 10 mg Ranitidine HCl (Zantac -) 150 mg PO BID [facility] Last Admin: 08/11/18 10:58 Dose: 150 mg Sotalol HCl (Betapace -) 80 mg PO BID [facility] Last Admin: 08/11/18 10:58 Dose: 80 mg Tiotropium [place] (Spiriva Respimat) 2 puff IH DAILY [facility] Last Admin: 08/11/18 10:59 Dose: 2 puff - Objective Vital Signs: Vital Signs Temperature 97.7 F 08/11/18 14:43 Pulse Rate 80 08/11/18 14:43 Respiratory Rate 18 08/11/18 14:43 Blood Pressure 146/90 08/11/18 14:43 O2 Sat by Pulse Oximetry (%) 93 L 08/11/18 09:00 Constitutional: Yes: No Distress Eyes: Yes: Conjunctiva Clear Cardiovascular: Yes: Regular Rate and Rhythm, S1, S2 Respiratory: Yes: Diminished Gastrointestinal: Yes: Normal Bowel Sounds, Soft Edema: No Labs: CBC, BMP 08/11/18 06:30 08/11/18 06:30 INR, PTT INR 1.13 (0.83-1.09) H 08/09/18 05:30 Assessment/Plan S/P NEAR SYNCOPE SEVERE ANEMIA S/P TRANSFUSION LUNG CA R/O PNEUMONIA LEUKOPENIA- RESOLVED AWAIT C/S CONTINUE EMPIRIC VANCOMYCIN / CEFEPIME
[2018-08-12] MEDS ORDERED: PT OWN MED DRAWER 7, Y5N ONE ×3 (02:04→21:10)
[2018-08-12] MEDS: methylPREDNISolone NA SUCC 40 MG/1 ML VIAL IVPUSH SCH ×3 (02:12→17:54)
[2018-08-12] MEDS: CEFEPIME 2 GM in DEXTROSE 5%-WATER 100 ML IVPB SCH ×3 (02:12→17:53)
[2018-08-12] MEDS: VANCOMYCIN 1 GRAM (PRE-DOCKED) 1,000 MG/250 ML BAG IVPB SCH (03:14)
[2018-08-12] MEDS: oxyCODONE HCL 5 MG TABLET PO PRN ×2 (03:15→21:41)
--- NOTE | 2018-08-12 08:00 | PN ---
Progress Note, Physician Chief Complaint: AWAKE ALERT C/O CHEST PAIN ON/OFF ON 02 NC 2L - Current Medication List Current Medications: Active Medications Albuterol Sulfate (Ventolin 0.083% Nebulizer Soln -) 1 amp NEB RQID [facility] Last Admin: 08/11/18 20:07 Dose: 1 amp Diltiazem HCl (Cardizem Cd -) 120 mg PO DAILY [facility] Last Admin: 08/11/18 10:58 Dose: 120 mg Enoxaparin Sodium (Lovenox -) 90 mg SQ BID [facility] Last Admin: 08/11/18 21:00 Dose: 90 mg Hydrocortisone (Hytone 2.5% Lotion -) 1 applic TP TID PRN PRN Reason: FOR ITCHING Last Admin: 08/11/18 10:59 Dose: 1 applic Vancomycin HCl (Vancomycin (Pre-Docked)) 1,000 mg in 250 mls @ 166.667 mls/hr IVPB Q12H [facility]; Protocol Last Admin: 08/12/18 03:14 Dose: 166.667 mls/hr Cefepime HCl 2 gm/ Dextrose 100 mls @ 200 mls/hr IVPB Q8H-IV [facility]; Protocol Last Admin: 08/12/18 02:12 Dose: 200 mls/hr Methylprednisolone Sodium Succinate (Solu-Medrol -) 60 mg IVPUSH Q8H-IV [facility] Last Admin: 08/12/18 02:12 Dose: 60 mg Oxycodone HCl (Roxicodone -) 10 mg PO Q4H PRN PRN Reason: PAIN LEVEL 4 - 6 Last Admin: 08/12/18 03:15 Dose: 10 mg Ranitidine HCl (Zantac -) 150 mg PO BID [facility] Last Admin: 08/11/18 21:00 Dose: 150 mg Sotalol HCl (Betapace -) 80 mg PO BID [facility] Last Admin: 08/11/18 21:00 Dose: 80 mg Tiotropium [place] (Spiriva Respimat) 2 puff IH DAILY [facility] Last Admin: 08/11/18 10:59 Dose: 2 puff - Objective Vital Signs: Vital Signs Temperature 98.3 F 08/12/18 06:00 Pulse Rate 79 08/12/18 06:00 Respiratory Rate 20 08/12/18 06:00 Blood Pressure 155/103 H 08/12/18 06:00 O2 Sat by Pulse Oximetry (%) 93 L 08/11/18 09:00 Constitutional: Yes: Mild Distress Eyes: Yes: WNL HENT: Yes: WNL Neck: Yes: WNL Cardiovascular: Yes: Regular Rate and Rhythm Respiratory: Yes: Diminished, On Nasal O2 Gastrointestinal: Yes: Soft Genitourinary: Yes: WNL Musculoskeletal: Yes: Muscle Weakness Extremities: Yes: WNL Edema: No Peripheral Pulses WNL: Yes Integumentary: Yes: WNL Wound/Incision: Yes: Clean/Dry Neurological: Yes: WNL ...Motor Strength: WNL Psychiatric: Yes: WNL Labs: CBC, BMP 08/11/18 06:30 08/11/18 06:30 INR, PTT INR 1.13 (0.83-1.09) H 08/09/18 05:30 Problem List - Problems (1) Acute respiratory failure Code(s): J96.00 - ACUTE RESPIRATORY FAILURE, UNSP W HYPOXIA OR HYPERCAPNIA Qualifiers: Respiratory failure complication: hypoxia Qualified Code(s): J96.01 - Acute respiratory failure with hypoxia (2) Anemia Code(s): D64.9 - ANEMIA, UNSPECIFIED Qualifiers: Anemia type: unspecified type Qualified Code(s): D64.9 - Anemia, unspecified (3) COPD (chronic obstructive pulmonary disease) Code(s): J44.9 - CHRONIC OBSTRUCTIVE PULMONARY DISEASE, UNSPECIFIED Qualifiers: COPD type: unspecified COPD Qualified Code(s): J44.9 - Chronic obstructive pulmonary disease, unspecified (4) Pneumonia Code(s): J18.9 - PNEUMONIA, UNSPECIFIED ORGANISM Qualifiers: Pneumonia type: due to unspecified organism Laterality: unspecified laterality Lung location: unspecified part of lung Qualified Code(s): J18.9 - Pneumonia, unspecified organism (5) Squamous cell lung cancer Code(s): C34.90 - MALIGNANT NEOPLASM OF UNSP PART OF UNSP BRONCHUS OR LUNG (6) Afib Code(s): I48.91 - UNSPECIFIED ATRIAL FIBRILLATION (7) DVT (deep venous thrombosis) Code(s): I82.409 - ACUTE EMBOLISM AND THOMBOS UNSP DEEP VN UNSP LOWER EXTREMITY Qualifiers: DVT location: upper extremity Affected thrombotic vein of extremity: other upper extremity vein Chronicity: acute Laterality: right Qualified Code(s) : I82.621 - Acute embolism and thrombosis of deep veins of right upper extremity (8) SVC syndrome Code(s): I87.1 - COMPRESSION OF VEIN (9) Smoker Code(s): F17.200 - NICOTINE DEPENDENCE, UNSPECIFIED, UNCOMPLICATED Assessment/Plan CONTINUE IV ABX/NEBS/RESP SUPPORT EKG NOW, CARDIOLOGY F/U PATIENT IMPROVING AFIB AND DVT. HYTONE 2.5% TID FOR LEGS MONITOR LABS OOB TO CHAIR DC PLANNING ONCE ID COMPLETE
[2018-08-12] MEDS: ALBUTEROL SO4 0.083% IH SOL 2.5 MG/3 ML VIAL.NEB. NEB SCH ×4 (08:05→20:27)
[2018-08-12] MEDS: ENOXAPARIN NA (PORCINE) 100 MG/1 ML DISP.SYRIN SQ SCH ×2 (09:42→21:42)
[2018-08-12] MEDS: SOTALOL HCL 80 MG TABLET (FP) PO SCH ×2 (09:42→21:41)
[2018-08-12] MEDS: TIOTROPIUM BROMIDE 2.5 MCG (SPIRIVA) RESPIMAT INHALER IH SCH (09:44)
[2018-08-12] MEDS: RANITIDINE HCL 150 MG TABLET (FP) PO SCH ×2 (09:46→21:41)
--- NOTE | 2018-08-12 09:51 | PN ---
Progress Note, Physician History of Present Illness: Dyspnea, fatigue and near syncope improving with correction of anemia and treatment of pneumonia and COPD. Remains in SR. - Current Medication List Current Medications: Active Medications Albuterol Sulfate (Ventolin 0.083% Nebulizer Soln -) 1 amp NEB RQID [facility] Last Admin: 08/12/18 08:05 Dose: 1 amp Diltiazem HCl (Cardizem Cd -) 120 mg PO DAILY [facility] Last Admin: 08/12/18 09:42 Dose: 120 mg Enoxaparin Sodium (Lovenox -) 90 mg SQ BID [facility] Last Admin: 08/12/18 09:42 Dose: 90 mg Hydrocortisone (Hytone 2.5% Lotion -) 1 applic TP TID PRN PRN Reason: FOR ITCHING Last Admin: 08/11/18 10:59 Dose: 1 applic Vancomycin HCl (Vancomycin (Pre-Docked)) 1,000 mg in 250 mls @ 166.667 mls/hr IVPB Q12H [facility]; Protocol Last Admin: 08/12/18 03:14 Dose: 166.667 mls/hr Cefepime HCl 2 gm/ Dextrose 100 mls @ 200 mls/hr IVPB Q8H-IV [facility]; Protocol Last Admin: 08/12/18 09:43 Dose: 200 mls/hr Methylprednisolone Sodium Succinate (Solu-Medrol -) 60 mg IVPUSH Q8H-IV [facility] Last Admin: 08/12/18 09:43 Dose: 60 mg Oxycodone HCl (Roxicodone -) 10 mg PO Q4H PRN PRN Reason: PAIN LEVEL 4 - 6 Last Admin: 08/12/18 03:15 Dose: 10 mg Ranitidine HCl (Zantac -) 150 mg PO BID [facility] Last Admin: 08/11/18 21:00 Dose: 150 mg Sotalol HCl (Betapace -) 80 mg PO BID [facility] Last Admin: 08/12/18 09:42 Dose: 80 mg Tiotropium [place] (Spiriva Respimat) 2 puff IH DAILY [facility] Last Admin: 08/12/18 09:44 Dose: 2 puff - Objective Vital Signs: Vital Signs Temperature 98.3 F 08/12/18 06:00 Pulse Rate 79 08/12/18 06:00 Respiratory Rate 20 08/12/18 06:00 Blood Pressure 155/103 H 08/12/18 06:00 O2 Sat by Pulse Oximetry (%) 93 L 08/11/18 09:00 Constitutional: Yes: No Distress, Calm, Thin Neck: Yes: Supple Cardiovascular: Yes: Regular Rate and Rhythm Respiratory: Yes: Regular, Diminished, On Nasal O2 Gastrointestinal: Yes: Normal Bowel Sounds, Soft Edema: No Labs: CBC, BMP 08/11/18 06:30 08/11/18 06:30 INR, PTT INR 1.13 (0.83-1.09) H 08/09/18 05:30 Problem List - Problems (1) COPD (chronic obstructive pulmonary disease) Code(s): J44.9 - CHRONIC OBSTRUCTIVE PULMONARY DISEASE, UNSPECIFIED Qualifiers: COPD type: unspecified COPD Qualified Code(s): J44.9 - Chronic obstructive pulmonary disease, unspecified (2) Pneumonia Code(s): J18.9 - PNEUMONIA, UNSPECIFIED ORGANISM Qualifiers: Pneumonia type: due to unspecified organism Laterality: unspecified laterality Lung location: unspecified part of lung Qualified Code(s): J18.9 - Pneumonia, unspecified organism (3) Anticoagulant long-term use Code(s): Z79.01 - SPEECH CLINICIAN (CURRENT) USE OF 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 (4) DVT (deep venous thrombosis) Code(s): I82.409 - ACUTE EMBOLISM AND THOMBOS UNSP DEEP VN UNSP LOWER EXTREMITY Qualifiers: DVT location: upper extremity Affected thrombotic vein of extremity: other upper extremity vein Chronicity: acute Laterality: right Qualified Code(s) : I82.621 - Acute embolism and thrombosis of deep veins of right upper extremity (5) HTN (hypertension) Code(s): I10 - ESSENTIAL (PRIMARY) HYPERTENSION (6) Lung cancer Code(s): C34.90 - MALIGNANT NEOPLASM OF UNSP PART OF UNSP BRONCHUS OR LUNG Qualifiers: Laterality: right Lung location: upper lobe of lung Qualified Code(s): C34.11 - Malignant neoplasm of upper lobe, right bronchus or lung (7) Paroxysmal atrial fibrillation Code(s): I48.0 - PAROXYSMAL ATRIAL FIBRILLATION (8) SVC syndrome Code(s): I87.1 - COMPRESSION OF VEIN (9) Shortness of breath Code(s): R06.02 - SHORTNESS OF BREATH (10) Anemia Code(s): D64.9 - ANEMIA, UNSPECIFIED Qualifiers: Anemia type: unspecified type Qualified Code(s): D64.9 - Anemia, unspecified Assessment/Plan 02/22/2018 Holter Monitor: SR with paroxysmal afib/flutter with aberrant conduction (RBBB morphology) 5.44% of time, frequent PAC, PVC 12/22/2017 Large irregular cavitary soft tissue mass involving right superior mediastinum in right to mid and superior hilar region suspicious for primary or secondary malignancy 04/07/2018 Large central RUL mass with invasion of mediastinum and adjacent consolidation/ATX RUL, distal SVC stenosis without obstruction with collateralization 03/11/2018 Echo: Normal LV and RV size and fxn with abnl LV compliance, mildly dilated ascending aorta, mild MR, TR. tr ME 03/29/2018 ETT Myoview: Negative maximal stress test for ischemia, LVEF 60% 04/14/2018 Brain MRI: No metastases 1. Post-obstructive pneumonia 2. Anemia s/p 3 U pRBC transfusion 3. 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 COPD/Emphysema 6. Palpitations, Paroxysmal Atrial Fibrillation->SR [id number] on anticoagulation 7. Diastolic LV dysfunction with class 0 NYHA classification LV failure 8. HTN/HCVD 9. Hep C post-treatment Plan: 1. Continue empiric abx course per C&S, O2, BD as needed, IV steroid taper 2. Monitor Hgb post transfusion 3. Maintained on full-dose Lovenox 90 bid 4. Continue sotalol 80 bid, cardizem CD 120 qd as hemodynamics tolerate 5. Plan for colonoscopy once clinically stable, will need outpt f/u of chest imaging
--- NOTE | 2018-08-12 13:17 | EKG ---
Test Reason : Blood Pressure : / mmHG Vent. Rate : 065 BPM Atrial Rate : 065 BPM P-R Int : 182 ms QRS Dur : 086 ms QT Int : 454 ms P-R-T Axes : 039 -06 018 degrees QTc Int : 472 ms SINUS RHYTHM WITH MARKED SINUS ARRHYTHMIA OTHERWISE NORMAL ECG WHEN COMPARED WITH ECG OF 08-AUG-2018 13:04, NO SIGNIFICANT CHANGE WAS FOUND Confirmed by VIPIN BENITEZ, DILIA ([id number]) on 08/12/2018 1:17:08 PM Referred By: ANGELA CABALLERO Confirmed By:DILIA LEW MD
--- NOTE | 2018-08-12 14:27 | PN ---
Progress Note, Physician History of Present Illness: AWAKE AND ALERT OCCASIONAL COUGH WHITE SPUTUM DENIES CHEST PAIN/ DYSPNEA NO C/O F/C AFEBRILE SPUTUM C/S ENTEROBACTER, xANTHOMONAS LEGIONELLA AG (-) - Current Medication List Current Medications: Active Medications Albuterol Sulfate (Ventolin 0.083% Nebulizer Soln -) 1 amp NEB RQID [facility] Last Admin: 08/12/18 11:36 Dose: 1 amp Diltiazem HCl (Cardizem Cd -) 120 mg PO DAILY [facility] Last Admin: 08/12/18 09:42 Dose: 120 mg Enoxaparin Sodium (Lovenox -) 90 mg SQ BID [facility] Last Admin: 08/12/18 09:42 Dose: 90 mg Hydrocortisone (Hytone 2.5% Lotion -) 1 applic TP TID PRN PRN Reason: FOR ITCHING Last Admin: 08/11/18 10:59 Dose: 1 applic Vancomycin HCl (Vancomycin (Pre-Docked)) 1,000 mg in 250 mls @ 166.667 mls/hr IVPB Q12H [facility]; Protocol Last Admin: 08/12/18 03:14 Dose: 166.667 mls/hr Cefepime HCl 2 gm/ Dextrose 100 mls @ 200 mls/hr IVPB Q8H-IV [facility]; Protocol Last Admin: 08/12/18 09:43 Dose: 200 mls/hr Methylprednisolone Sodium Succinate (Solu-Medrol -) 60 mg IVPUSH Q8H-IV [facility] Last Admin: 08/12/18 09:43 Dose: 60 mg Oxycodone HCl (Roxicodone -) 10 mg PO Q4H PRN PRN Reason: PAIN LEVEL 4 - 6 Last Admin: 08/12/18 03:15 Dose: 10 mg Ranitidine HCl (Zantac -) 150 mg PO BID [facility] Last Admin: 08/12/18 09:46 Dose: 150 mg Sotalol HCl (Betapace -) 80 mg PO BID [facility] Last Admin: 08/12/18 09:42 Dose: 80 mg Tiotropium [place] (Spiriva Respimat) 2 puff IH DAILY [facility] Last Admin: 08/12/18 09:44 Dose: 2 puff - Objective Vital Signs: Vital Signs Temperature 98.2 F 08/12/18 10:00 Pulse Rate 72 08/12/18 10:00 Respiratory Rate 18 02/08/19 10:00 Blood Pressure 152/73 08/12/18 10:00 O2 Sat by Pulse Oximetry (%) 97 08/12/18 09:00 Constitutional: Yes: No Distress Eyes: Yes: Conjunctiva Clear Cardiovascular: Yes: Regular Rate and Rhythm, S1, S2 Respiratory: Yes: Other (DECREASED BS R) Gastrointestinal: Yes: Normal Bowel Sounds, Soft Edema: No Labs: CBC, BMP 08/11/18 06:30 08/11/18 06:30 INR, PTT INR 1.13 (0.83-1.09) H 08/09/18 05:30 Assessment/Plan S/P NEAR SYNCOPE SEVERE ANEMIA S/P TRANSFUSION LUNG CA R/O PNEUMONIA LEUKOPENIA- RESOLVED CONTINUE CEFEPIME D/C VANCOMYCIN
--- NOTE | 2018-08-12 14:56 | PN ---
Progress Note, Physician History of Present Illness: PULMONARY pt comfortable,-sob,-cp,less cough - Current Medication List Current Medications: Active Medications Albuterol Sulfate (Ventolin 0.083% Nebulizer Soln -) 1 amp NEB RQID [facility] Last Admin: 08/12/18 11:36 Dose: 1 amp Diltiazem HCl (Cardizem Cd -) 120 mg PO DAILY [facility] Last Admin: 08/12/18 09:42 Dose: 120 mg Enoxaparin Sodium (Lovenox -) 90 mg SQ BID [facility] Last Admin: 08/12/18 09:42 Dose: 90 mg Hydrocortisone (Hytone 2.5% Lotion -) 1 applic TP TID PRN PRN Reason: FOR ITCHING Last Admin: 08/11/18 10:59 Dose: 1 applic Cefepime HCl 2 gm/ Dextrose 100 mls @ 200 mls/hr IVPB Q8H-IV [facility]; Protocol Last Admin: 08/12/18 09:43 Dose: 200 mls/hr Methylprednisolone Sodium Succinate (Solu-Medrol -) 60 mg IVPUSH Q8H-IV [facility] Last Admin: 08/12/18 09:43 Dose: 60 mg Oxycodone HCl (Roxicodone -) 10 mg PO Q4H PRN PRN Reason: PAIN LEVEL 4 - 6 Last Admin: 08/12/18 03:15 Dose: 10 mg Ranitidine HCl (Zantac -) 150 mg PO BID [facility] Last Admin: 08/12/18 09:46 Dose: 150 mg Sotalol HCl (Betapace -) 80 mg PO BID [facility] Last Admin: 08/12/18 09:42 Dose: 80 mg Tiotropium [place] (Spiriva Respimat) 2 puff IH DAILY [facility] Last Admin: 08/12/18 09:44 Dose: 2 puff - Objective Vital Signs: Vital Signs Temperature 98.2 F 08/12/18 10:00 Pulse Rate 72 08/12/18 10:00 Respiratory Rate 18 08/12/18 10:00 Blood Pressure 152/73 08/12/18 10:00 O2 Sat by Pulse Oximetry (%) 97 08/12/18 09:00 Constitutional: Yes: Well Nourished, Calm Eyes: Yes: WNL HENT: Yes: WNL Neck: Yes: WNL Cardiovascular: Yes: Regular Rate and Rhythm, S1, S2 Respiratory: Yes: CTA Bilaterally Gastrointestinal: Yes: Normal Bowel Sounds, Soft Extremities: Yes: WNL Edema: No Labs: CBC, BMP Problem List - Problems (1) Acute respiratory failure Code(s): J96.00 - ACUTE RESPIRATORY FAILURE, UNSP W HYPOXIA OR HYPERCAPNIA Qualifiers: Respiratory failure complication: hypoxia Qualified Code(s): J96.01 - Acute respiratory failure with hypoxia (2) Anemia Code(s): D64.9 - ANEMIA, UNSPECIFIED Qualifiers: Anemia type: unspecified type Qualified Code(s): D64.9 - Anemia, unspecified (3) COPD (chronic obstructive pulmonary disease) Code(s): J44.9 - CHRONIC OBSTRUCTIVE PULMONARY DISEASE, UNSPECIFIED Qualifiers: COPD type: unspecified COPD Qualified Code(s): J44.9 - Chronic obstructive pulmonary disease, unspecified (4) Pneumonia Code(s): J18.9 - PNEUMONIA, UNSPECIFIED ORGANISM Qualifiers: Pneumonia type: due to unspecified organism Laterality: unspecified laterality Lung location: unspecified part of lung Qualified Code(s): J18.9 - Pneumonia, unspecified organism (5) Squamous cell lung cancer Code(s): C34.90 - MALIGNANT NEOPLASM OF UNSP PART OF UNSP BRONCHUS OR LUNG (6) Afib Code(s): I48.91 - UNSPECIFIED ATRIAL FIBRILLATION (7) Anticoagulant long-term use Code(s): Z79.01 - COMMERCIAL HORTICULTURE IN[employer]CTOR (CURRENT) USE OF 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 (8) HTN (hypertension) Code(s): I10 - ESSENTIAL (PRIMARY) HYPERTENSION (9) Lung cancer Code(s): C34.90 - MALIGNANT NEOPLASM OF UNSP PART OF UNSP BRONCHUS OR LUNG Qualifiers: Laterality: right Lung location: upper lobe of lung Qualified Code(s): C34.11 - Malignant neoplasm of upper lobe, right bronchus or lung (10) Paroxysmal atrial fibrillation Code(s): I48.0 - PAROXYSMAL ATRIAL FIBRILLATION (11) SVC syndrome Code(s): I87.1 - COMPRESSION OF VEIN (12) Smoker Code(s): F17.200 - NICOTINE DEPENDENCE, UNSPECIFIED, UNCOMPLICATED Assessment/Plan ASSESSMENT AND PLAN: Pneumonia s/p Severe Sepsis Acute on Chronic Hypoxic Respiratory Failure NSCLC (Squamous Cell Ca) - s/p chemo/RT Acute COPD Exacerbation Paroxysmal Atrial Fibrillation h/o SVC Thrombus s/p thrombectomy/thrombolysis HTN Anemia h/o Hep C - antibiotics - anticoagulation - O2 to keep Spo2 >90% - inhaled bronchodilators - medrol - pain control - replete lytes - monitor H/H DR ABRAMS
[2018-08-13] MEDS: oxyCODONE HCL 5 MG TABLET PO PRN ×4 (01:15→21:42)
[2018-08-13] MEDS ORDERED: PT OWN MED DRAWER 7, Y5N ONE ×2 (01:31→09:24)
[2018-08-13] MEDS: CEFEPIME 2 GM in DEXTROSE 5%-WATER 100 ML IVPB SCH ×3 (01:44→17:48)
[2018-08-13] MEDS: methylPREDNISolone NA SUCC 40 MG/1 ML VIAL IVPUSH SCH ×3 (01:44→21:15)
--- NOTE | 2018-08-13 06:59 | PN ---
Progress Note (short form) - Note Progress Note: Chief Complaint: Events noted, notes reviewed, denies any chest pain, reports dyspnea but improved History of Present Illness: Seen and examined. Events noted, notes reviewed, denies any chest pain, reports dyspnea but improved Holter monitor dated 02/22/2018 revealed sinus rhythm with paroxysmal atrial fibrillation/atrial flutter with aberrant conduction (RBBB morphology) 5.44% of time, frequent PAC's, PVC's Echocardiograohy dated 03/11/2018 Normal LV and RV size and fxn with abnl LV compliance, mildly dilated ascending aorta, mild MR, TR. tr [place] MPI study dated 03/29/2018 Negative maximal stress test for ischemia, LVEF 60% Medications: Current Medications Albuterol Sulfate (Ventolin 0.083% Nebulizer Soln -) 1 amp NEB RQID [facility] Last Admin: 08/12/18 20:27 Dose: 1 amp Diltiazem HCl (Cardizem Cd -) 120 mg PO DAILY [facility] Last Admin: 08/12/18 09:42 Dose: 120 mg Enoxaparin Sodium (Lovenox -) 90 mg SQ BID [facility] Last Admin: 08/12/18 21:42 Dose: 90 mg Hydrocortisone (Hytone 2.5% Lotion -) 1 applic TP TID PRN PRN Reason: FOR ITCHING Last Admin: 08/11/18 10:59 Dose: 1 applic Cefepime HCl 2 gm/ Dextrose 100 mls @ 200 mls/hr IVPB Q8H-IV [facility]; Protocol Last Admin: 08/13/18 01:44 Dose: 200 mls/hr Methylprednisolone Sodium Succinate (Solu-Medrol -) 60 mg IVPUSH Q8H-IV [facility] Last Admin: 08/13/18 01:44 Dose: 60 mg Oxycodone HCl (Roxicodone -) 10 mg PO Q4H PRN PRN Reason: PAIN LEVEL 4 - 6 Last Admin: 08/13/18 05:18 Dose: 10 mg Ranitidine HCl (Zantac -) 150 mg PO BID [facility] Last Admin: 08/12/18 21:41 Dose: 150 mg Sotalol HCl (Betapace -) 80 mg PO BID [facility] Last Admin: 08/12/18 21:41 Dose: 80 mg Tiotropium [place] (Spiriva Respimat) 2 puff IH DAILY [facility] Last Admin: 08/12/18 09:44 Dose: 2 puff Vital Signs: Last Vital Signs Temp Pulse Resp BP Pulse Ox 97.5 F L 75 20 154/89 94 L 08/13/18 06:00 08/13/18 06:00 08/13/18 06:00 08/13/18 06:00 08/12/18 21:00 Intake & Output 08/10/18 08/11/18 08/12/18 08/13/18 23:59 23:59 23:59 23:59 Intake Total 1470 1430 980 Output Total 1250 400 300 200 Balance 220 1030 680 -200 Weight 217 lb Neck: Supple Negative JVD Respiratory: Diminished Breath Sounds Bilaterally Cardiovascular: S1 S2 Regular Rate and Rhythm Gastrointestinal: Soft Benign Normal Bowel Sounds Ext: Negative Edema Labs: CBC, BMP 08/11/18 06:30 08/11/18 06:30 Assessment/Plan ASSESSMENT: 1. Post-obstructive pneumonia, resolving 2. Anemia etiology unclear post transfusion 3. 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 RUL Lung Mass, moderately differentiated squamous cell carcinoma post chemo/ radiation therapies 5. CAD/coronary artery calcification angina pectoris 6. Diastolic LV dysfunction with class 0 NYHA classification LV failure 7. Paroxysmal Atrial Fibrillation/paroxysmal atrial flutter [id number] score of 1 on anticoagulation, on Lovenox 8. HTN/HCVD 9. COPD/emphysema 10. History of Hepatitis C post-treatment PLAN: 1. Continue Lovenox with close monitoring of Hg level 2. Continue Betapace with close monitoring of QTc interval 3. Continue Cardizem CD, hemodynamics permitting 4. Antibiotics as per the primary team Mary Lou Coffey M.D.
[2018-08-13] MEDS: ALBUTEROL SO4 0.083% IH SOL 2.5 MG/3 ML VIAL.NEB. NEB SCH ×4 (07:31→20:40)
[2018-08-13] MEDS: ENOXAPARIN NA (PORCINE) 100 MG/1 ML DISP.SYRIN SQ SCH ×2 (09:29→21:15)
[2018-08-13] MEDS: SOTALOL HCL 80 MG TABLET (FP) PO SCH ×2 (09:30→21:15)
[2018-08-13] MEDS: RANITIDINE HCL 150 MG TABLET (FP) PO SCH ×2 (09:30→21:15)
[2018-08-13] MEDS: TIOTROPIUM BROMIDE 2.5 MCG (SPIRIVA) RESPIMAT INHALER IH SCH (09:31)
--- NOTE | 2018-08-13 13:09 | PN ---
Progress Note, Physician History of Present Illness: FEELS BETTER - Current Medication List Current Medications: Active Medications Albuterol Sulfate (Ventolin 0.083% Nebulizer Soln -) 1 amp NEB RQID [facility] Last Admin: 08/13/18 11:32 Dose: 1 amp Diltiazem HCl (Cardizem Cd -) 120 mg PO DAILY [facility] Last Admin: 08/13/18 09:30 Dose: 120 mg Enoxaparin Sodium (Lovenox -) 90 mg SQ BID [facility] Last Admin: 08/13/18 09:29 Dose: 90 mg Hydrocortisone (Hytone 2.5% Lotion -) 1 applic TP TID PRN PRN Reason: FOR ITCHING Last Admin: 08/11/18 10:59 Dose: 1 applic Cefepime HCl 2 gm/ Dextrose 100 mls @ 200 mls/hr IVPB Q8H-IV [facility]; Protocol Last Admin: 08/13/18 09:29 Dose: 200 mls/hr Methylprednisolone Sodium Succinate (Solu-Medrol -) 60 mg IVPUSH Q8H-IV [facility] Last Admin: 08/13/18 09:30 Dose: 60 mg Oxycodone HCl (Roxicodone -) 10 mg PO Q4H PRN PRN Reason: PAIN LEVEL 4 - 6 Last Admin: 08/13/18 05:18 Dose: 10 mg Ranitidine HCl (Zantac -) 150 mg PO BID [facility] Last Admin: 08/13/18 09:30 Dose: 150 mg Sotalol HCl (Betapace -) 80 mg PO BID [facility] Last Admin: 08/13/18 09:30 Dose: 80 mg Tiotropium [place] (Spiriva Respimat) 2 puff IH DAILY [facility] Last Admin: 08/13/18 09:31 Dose: 2 puff - Objective Vital Signs: Vital Signs Temperature 97.5 F L 08/13/18 06:00 Pulse Rate 75 08/13/18 06:00 Respiratory Rate 20 08/13/18 06:00 Blood Pressure 154/89 08/13/18 06:00 O2 Sat by Pulse Oximetry (%) 94 L 08/12/18 21:00 Cardiovascular: Yes: S1, S2 Respiratory: Yes: Rhonchi Gastrointestinal: Yes: Normal Bowel Sounds, Soft Labs: CBC, BMP 08/11/18 06:30 08/11/18 06:30 INR, PTT INR 1.13 (0.83-1.09) H 08/09/18 05:30 Problem List - Problems (1) Acute respiratory failure Assessment/Plan: iv abx nebs pulm and id on board improved ct scan noted Code(s): J96.00 - ACUTE RESPIRATORY FAILURE, UNSP W HYPOXIA OR HYPERCAPNIA Qualifiers: Respiratory failure complication: hypoxia Qualified Code(s): J96.01 - Acute respiratory failure with hypoxia (2) Anemia Assessment/Plan: transfused prbc hem w/u per dr cecilia rasmussen repeat Code(s): D64.9 - ANEMIA, UNSPECIFIED Qualifiers: Anemia type: unspecified type Qualified Code(s): D64.9 - Anemia, unspecified (3) COPD (chronic obstructive pulmonary disease) Assessment/Plan: nebs iv steroids TAPER Code(s): J44.9 - CHRONIC OBSTRUCTIVE PULMONARY DISEASE, UNSPECIFIED Qualifiers: COPD type: unspecified COPD Qualified Code(s): J44.9 - Chronic obstructive pulmonary disease, unspecified (4) Pneumonia Assessment/Plan: IV abx per dr ricketts Ct of chest noted-- Code(s): J18.9 - PNEUMONIA, UNSPECIFIED ORGANISM Qualifiers: Pneumonia type: due to unspecified organism Laterality: unspecified laterality Lung location: unspecified part of lung Qualified Code(s): J18.9 - Pneumonia, unspecified organism (5) Squamous cell lung cancer Assessment/Plan: mass noted on repeat ct RX per Oncology Code(s): C34.90 - MALIGNANT NEOPLASM OF UNSP PART OF UNSP BRONCHUS OR LUNG (6) SVC syndrome Assessment/Plan: -On Lovenox Code(s): I87.1 - COMPRESSION OF VEIN
--- NOTE | 2018-08-13 14:52 | PN ---
Progress Note, Physician History of Present Illness: pulmonary alert,oob-chair,feeling better,comfortable,-resp distress - Current Medication List Current Medications: Active Medications Albuterol Sulfate (Ventolin 0.083% Nebulizer Soln -) 1 amp NEB RQID [facility] Last Admin: 08/13/18 11:32 Dose: 1 amp Diltiazem HCl (Cardizem Cd -) 120 mg PO DAILY [facility] Last Admin: 08/13/18 09:30 Dose: 120 mg Enoxaparin Sodium (Lovenox -) 90 mg SQ BID [facility] Last Admin: 08/13/18 09:29 Dose: 90 mg Hydrocortisone (Hytone 2.5% Lotion -) 1 applic TP TID PRN PRN Reason: FOR ITCHING Last Admin: 08/11/18 10:59 Dose: 1 applic Cefepime HCl 2 gm/ Dextrose 100 mls @ 200 mls/hr IVPB Q8H-IV [facility]; Protocol Last Admin: 08/13/18 09:29 Dose: 200 mls/hr Methylprednisolone Sodium Succinate (Solu-Medrol -) 60 mg IVPUSH BID [facility] Oxycodone HCl (Roxicodone -) 10 mg PO Q4H PRN PRN Reason: PAIN LEVEL 4 - 6 Last Admin: 08/13/18 05:18 Dose: 10 mg Ranitidine HCl (Zantac -) 150 mg PO BID [facility] Last Admin: 08/13/18 09:30 Dose: 150 mg Sotalol HCl (Betapace -) 80 mg PO BID [facility] Last Admin: 08/13/18 09:30 Dose: 80 mg Tiotropium [place] (Spiriva Respimat) 2 puff IH DAILY [facility] Last Admin: 08/13/18 09:31 Dose: 2 puff - Objective Vital Signs: Vital Signs Temperature 97.4 F L 08/13/18 14:49 Pulse Rate 77 08/13/18 14:49 Respiratory Rate 20 08/13/18 14:49 Blood Pressure 142/77 08/13/18 14:49 O2 Sat by Pulse Oximetry (%) 96 08/13/18 09:00 Constitutional: Yes: Well Nourished, Calm Eyes: Yes: WNL HENT: Yes: WNL Neck: Yes: WNL Cardiovascular: Yes: Regular Rate and Rhythm, S1, S2 Respiratory: Yes: Diminished Gastrointestinal: Yes: Normal Bowel Sounds, Soft Extremities: Yes: WNL Edema: No Labs: CBC, BMP Problem List - Problems (1) Acute respiratory failure Code(s): J96.00 - ACUTE RESPIRATORY FAILURE, UNSP W HYPOXIA OR HYPERCAPNIA Qualifiers: Respiratory failure complication: hypoxia Qualified Code(s): J96.01 - Acute respiratory failure with hypoxia (2) Anemia Code(s): D64.9 - ANEMIA, UNSPECIFIED Qualifiers: Anemia type: unspecified type Qualified Code(s): D64.9 - Anemia, unspecified (3) COPD (chronic obstructive pulmonary disease) Code(s): J44.9 - CHRONIC OBSTRUCTIVE PULMONARY DISEASE, UNSPECIFIED Qualifiers: COPD type: unspecified COPD Qualified Code(s): J44.9 - Chronic obstructive pulmonary disease, unspecified (4) Pneumonia Code(s): J18.9 - PNEUMONIA, UNSPECIFIED ORGANISM Qualifiers: Pneumonia type: due to unspecified organism Laterality: unspecified laterality Lung location: unspecified part of lung Qualified Code(s): J18.9 - Pneumonia, unspecified organism (5) Squamous cell lung cancer Code(s): C34.90 - MALIGNANT NEOPLASM OF UNSP PART OF UNSP BRONCHUS OR LUNG (6) Afib Code(s): I48.91 - UNSPECIFIED ATRIAL FIBRILLATION (7) Anticoagulant long-term use Code(s): Z79.01 - HIRED HELP (CURRENT) USE OF 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 (8) HTN (hypertension) Code(s): I10 - ESSENTIAL (PRIMARY) HYPERTENSION (9) Lung cancer Code(s): C34.90 - MALIGNANT NEOPLASM OF UNSP PART OF UNSP BRONCHUS OR LUNG Qualifiers: Laterality: right Lung location: upper lobe of lung Qualified Code(s): C34.11 - Malignant neoplasm of upper lobe, right bronchus or lung (10) Paroxysmal atrial fibrillation Code(s): I48.0 - PAROXYSMAL ATRIAL FIBRILLATION (11) SVC syndrome Code(s): I87.1 - COMPRESSION OF VEIN (12) Smoker Code(s): F17.200 - NICOTINE DEPENDENCE, UNSPECIFIED, UNCOMPLICATED Assessment/Plan ASSESSMENT AND PLAN: Pneumonia s/p Severe Sepsis Acute on Chronic Hypoxic Respiratory Failure NSCLC (Squamous Cell Ca) - s/p chemo/RT Acute COPD Exacerbation Paroxysmal Atrial Fibrillation h/o SVC Thrombus s/p thrombectomy/thrombolysis HTN Anemia h/o Hep C - antibiotics - anticoagulation - O2 to keep Spo2 >90% - inhaled bronchodilators - medrol taper - pain control - monitor H/H DR ABRAMS
--- NOTE | 2018-08-13 21:56 | PN ---
Progress Note, Physician Chief Complaint: SOB History of Present Illness: Feeling better, with more energy. Denies CP, SOB. - Current Medication List Current Medications: Active Medications Albuterol Sulfate (Ventolin 0.083% Nebulizer Soln -) 1 amp NEB RQID [facility] Last Admin: 08/13/18 20:40 Dose: 1 amp Diltiazem HCl (Cardizem Cd -) 120 mg PO DAILY [facility] Last Admin: 08/13/18 09:30 Dose: 120 mg Enoxaparin Sodium (Lovenox -) 90 mg SQ BID [facility] Last Admin: 08/13/18 21:15 Dose: 90 mg Hydrocortisone (Hytone 2.5% Lotion -) 1 applic TP TID PRN PRN Reason: FOR ITCHING Last Admin: 08/11/18 10:59 Dose: 1 applic Cefepime HCl 2 gm/ Dextrose 100 mls @ 200 mls/hr IVPB Q8H-IV [facility]; Protocol Last Admin: 08/13/18 17:48 Dose: 200 mls/hr Methylprednisolone Sodium Succinate (Solu-Medrol -) 40 mg IVPUSH BID [facility] Last Admin: 08/13/18 21:15 Dose: 40 mg Oxycodone HCl (Roxicodone -) 10 mg PO Q4H PRN PRN Reason: PAIN LEVEL 4 - 6 Last Admin: 08/13/18 21:42 Dose: 10 mg Ranitidine HCl (Zantac -) 150 mg PO BID [facility] Last Admin: 08/13/18 21:15 Dose: 150 mg Sotalol HCl (Betapace -) 80 mg PO BID [facility] Last Admin: 08/13/18 21:15 Dose: 80 mg Tiotropium [place] (Spiriva Respimat) 2 puff IH DAILY [facility] Last Admin: 08/13/18 09:31 Dose: 2 puff - Objective Vital Signs: Vital Signs Temperature 97.9 F 08/13/18 16:30 Pulse Rate 76 08/13/18 16:30 Respiratory Rate 18 08/13/18 16:30 Blood Pressure 126/76 08/13/18 16:30 O2 Sat by Pulse Oximetry (%) 96 08/13/18 09:00 Constitutional: Yes: Well Nourished, No Distress Eyes: Yes: Conjunctiva Clear Cardiovascular: Yes: Regular Rate and Rhythm Respiratory: Yes: Regular, CTA Bilaterally Gastrointestinal: Yes: Soft Edema: No Labs: CBC, BMP 08/11/18 06:30 08/11/18 06:30 INR, PTT INR 1.13 (0.83-1.09) H 08/09/18 05:30 Assessment/Plan 62M with COPD, Afib on Eliqus and squamous cell ca of lung c/b SVC syndrome s/p stent and RT/carboplatin/taxol admitted with SOB. Found to have Hgb 5.7 (from 9.1 a month prior). Stool quiac was negative. Haptoglobin normal. No e/o nutritional deficiency. Planned for colonoscopy in the future Being treated for PNA/COPD exacerbation. On Lovenox for SVC thrombosis. Monitor Hgb, has been stable so far post-transfusion.
[2018-08-13] MEDS ORDERED: methylPREDNISolone NA SUCC 40 MG/1 ML VIAL IVPUSH SCH (22:00)
[2018-08-14] MEDS ORDERED: PT OWN MED DRAWER 7, Y5N ONE (00:36)
[2018-08-14] MEDS: CEFEPIME 2 GM in DEXTROSE 5%-WATER 100 ML IVPB SCH ×2 (01:39→09:11)
[2018-08-14] MEDS: oxyCODONE HCL 5 MG TABLET PO PRN ×2 (02:03→18:34)
[2018-08-14] MEDS: ALBUTEROL SO4 0.083% IH SOL 2.5 MG/3 ML VIAL.NEB. NEB SCH ×4 (07:28→20:12)
--- NOTE | 2018-08-14 08:31 | PN ---
Progress Note (short form) - Note Progress Note: Chief Complaint: Events noted, notes reviewed, denies any chest pain, reports dyspnea but improved History of Present Illness: Seen and examined. Events noted, notes reviewed, denies any chest pain, reports dyspnea but improved Holter monitor dated 02/22/2018 revealed sinus rhythm with paroxysmal atrial fibrillation/atrial flutter with aberrant conduction (RBBB morphology) 5.44% of time, frequent PAC's, PVC's Echocardiograohy dated 03/11/2018 Normal LV and RV size and fxn with abnl LV compliance, mildly dilated ascending aorta, mild MR, TR. tr [place] MPI study dated 03/29/2018 Negative maximal stress test for ischemia, LVEF 60% Medications: Current Medications Albuterol Sulfate (Ventolin 0.083% Nebulizer Soln -) 1 amp NEB RQID [facility] Last Admin: 08/14/18 07:28 Dose: 1 amp Diltiazem HCl (Cardizem Cd -) 120 mg PO DAILY [facility] Last Admin: 08/13/18 09:30 Dose: 120 mg Enoxaparin Sodium (Lovenox -) 90 mg SQ BID [facility] Last Admin: 08/13/18 21:15 Dose: 90 mg Hydrocortisone (Hytone 2.5% Lotion -) 1 applic TP TID PRN PRN Reason: FOR ITCHING Last Admin: 08/11/18 10:59 Dose: 1 applic Cefepime HCl 2 gm/ Dextrose 100 mls @ 200 mls/hr IVPB Q8H-IV [facility]; Protocol Last Admin: 08/14/18 01:39 Dose: 200 mls/hr Methylprednisolone Sodium Succinate (Solu-Medrol -) 40 mg IVPUSH BID [facility] Last Admin: 08/13/18 21:15 Dose: 40 mg Oxycodone HCl (Roxicodone -) 10 mg PO Q4H PRN PRN Reason: PAIN LEVEL 4 - 6 Last Admin: 08/14/18 02:03 Dose: 10 mg Ranitidine HCl (Zantac -) 150 mg PO BID [facility] Last Admin: 08/13/18 21:15 Dose: 150 mg Sotalol HCl (Betapace -) 80 mg PO BID [facility] Last Admin: 08/13/18 21:15 Dose: 80 mg Tiotropium [place] (Spiriva Respimat) 2 puff IH DAILY [facility] Last Admin: 08/13/18 09:31 Dose: 2 puff Vital Signs: Last Vital Signs Temp Pulse Resp BP Pulse Ox 98.3 F 72 20 141/92 96 08/14/18 06:00 08/14/18 06:00 08/14/18 06:00 08/14/18 06:00 08/13/18 21:00 Intake & Output 08/11/18 08/12/18 08/13/18 08/14/18 23:59 23:59 23:59 23:59 Intake Total 1430 980 620 300 Output Total 400 300 200 650 Balance 1030 680 420 -350 Neck: Supple Negative JVD Respiratory: Diminished Breath Sounds Bilaterally Cardiovascular: S1 S2 Regular Rate and Rhythm Gastrointestinal: Soft Benign Normal Bowel Sounds Ext: Negative Edema Labs: CBC, BMP 08/11/18 06:30 08/11/18 06:30 Assessment/Plan ASSESSMENT: 1. Post-obstructive pneumonia, resolving 2. Anemia etiology unclear post transfusion 3. 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 RUL Lung Mass, moderately differentiated squamous cell carcinoma post chemo/ radiation therapies 5. CAD/coronary artery calcification angina pectoris 6. Diastolic LV dysfunction with class 0 NYHA classification LV failure 7. Paroxysmal Atrial Fibrillation/paroxysmal atrial flutter [id number] score of 1 on anticoagulation, on Lovenox 8. HTN/HCVD 9. COPD/emphysema 10. History of Hepatitis C post-treatment PLAN: 1. Continue Lovenox with close monitoring of Hg level 2. Continue Betapace with close monitoring of QTc interval 3. Continue Cardizem CD, hemodynamics permitting 4. Antibiotics as per the primary team 5. D/C home as per the primary team Mary Lou Coffey M.D.
[2018-08-14] MEDS: ENOXAPARIN NA (PORCINE) 100 MG/1 ML DISP.SYRIN SQ SCH ×2 (09:12→21:45)
[2018-08-14] MEDS: methylPREDNISolone NA SUCC 40 MG/1 ML VIAL IVPUSH SCH ×2 (09:16→21:45)
[2018-08-14] MEDS: SOTALOL HCL 80 MG TABLET (FP) PO SCH ×2 (09:16→21:45)
[2018-08-14] MEDS: RANITIDINE HCL 150 MG TABLET (FP) PO SCH ×2 (09:16→21:45)
[2018-08-14] MEDS: TIOTROPIUM BROMIDE 2.5 MCG (SPIRIVA) RESPIMAT INHALER IH SCH (09:17)
--- NOTE | 2018-08-14 12:25 | PN ---
Progress Note, Physician History of Present Illness: AWAKE AND ALERT OCCASIONAL COUGH WHITE SPUTUM DENIES CHEST PAIN/ DYSPNEA NO C/O F/C AFEBRILE SPUTUM C/S ENTEROBACTER, xANTHOMONAS LEGIONELLA AG (-) - Current Medication List Current Medications: Active Medications Albuterol Sulfate (Ventolin 0.083% Nebulizer Soln -) 1 amp NEB RQID [facility] Last Admin: 08/14/18 11:37 Dose: 1 amp Diltiazem HCl (Cardizem Cd -) 120 mg PO DAILY [facility] Last Admin: 08/14/18 09:16 Dose: 120 mg Enoxaparin Sodium (Lovenox -) 90 mg SQ BID [facility] Last Admin: 08/14/18 09:12 Dose: 90 mg Hydrocortisone (Hytone 2.5% Lotion -) 1 applic TP TID PRN PRN Reason: FOR ITCHING Last Admin: 08/11/18 10:59 Dose: 1 applic Cefepime HCl 2 gm/ Dextrose 100 mls @ 200 mls/hr IVPB Q8H-IV [facility]; Protocol Last Admin: 08/14/18 09:11 Dose: 200 mls/hr Methylprednisolone Sodium Succinate (Solu-Medrol -) 40 mg IVPUSH BID [facility] Last Admin: 08/14/18 09:16 Dose: 40 mg Oxycodone HCl (Roxicodone -) 10 mg PO Q4H PRN PRN Reason: PAIN LEVEL 4 - 6 Last Admin: 08/14/18 02:03 Dose: 10 mg Ranitidine HCl (Zantac -) 150 mg PO BID [facility] Last Admin: 08/14/18 09:16 Dose: 150 mg Sotalol HCl (Betapace -) 80 mg PO BID [facility] Last Admin: 08/14/18 09:16 Dose: 80 mg Tiotropium [place] (Spiriva Respimat) 2 puff IH DAILY [facility] Last Admin: 08/14/18 09:17 Dose: 2 puff - Objective Vital Signs: Vital Signs Temperature 98.3 F 08/14/18 06:00 Pulse Rate 72 08/14/18 06:00 Respiratory Rate 20 08/14/18 06:00 Blood Pressure 141/92 08/14/18 06:00 O2 Sat by Pulse Oximetry (%) 96 08/13/18 21:00 Constitutional: Yes: No Distress Cardiovascular: Yes: Regular Rate and Rhythm, S1, S2 Respiratory: Yes: Other (DECREASED BS R LUNG FIELD) Gastrointestinal: Yes: Normal Bowel Sounds, Soft. No: Tenderness Edema: No Labs: CBC, BMP 08/11/18 06:30 08/11/18 06:30 INR, PTT INR 1.13 (0.83-1.09) H 08/09/18 05:30 Assessment/Plan S/P NEAR SYNCOPE SEVERE ANEMIA S/P TRANSFUSION LUNG CA R/O PNEUMONIA LEUKOPENIA- RESOLVED D/C IV ANTIBIOTICS SUBSTITUTE AUGMENTIN 875MG PO BID X 7D
--- NOTE | 2018-08-14 12:37 | PN ---
Progress Note, Physician History of Present Illness: FEELS BETTER - Current Medication List Current Medications: Active Medications Albuterol Sulfate (Ventolin 0.083% Nebulizer Soln -) 1 amp NEB RQID [facility] Last Admin: 08/14/18 11:37 Dose: 1 amp Amoxicillin/Clavulanate Potassium (Augmentin - 875mg Tablet) 1 tab PO BID@0800, 1730 [facility] Diltiazem HCl (Cardizem Cd -) 120 mg PO DAILY [facility] Last Admin: 08/14/18 09:16 Dose: 120 mg Enoxaparin Sodium (Lovenox -) 90 mg SQ BID [facility] Last Admin: 08/14/18 09:12 Dose: 90 mg Hydrocortisone (Hytone 2.5% Lotion -) 1 applic TP TID PRN PRN Reason: FOR ITCHING Last Admin: 08/11/18 10:59 Dose: 1 applic Methylprednisolone Sodium Succinate (Solu-Medrol -) 40 mg IVPUSH BID [facility] Last Admin: 08/14/18 09:16 Dose: 40 mg Oxycodone HCl (Roxicodone -) 10 mg PO Q4H PRN PRN Reason: PAIN LEVEL 4 - 6 Last Admin: 08/14/18 02:03 Dose: 10 mg Ranitidine HCl (Zantac -) 150 mg PO BID [facility] Last Admin: 08/14/18 09:16 Dose: 150 mg Sotalol HCl (Betapace -) 80 mg PO BID [facility] Last Admin: 08/14/18 09:16 Dose: 80 mg Tiotropium [place] (Spiriva Respimat) 2 puff IH DAILY [facility] Last Admin: 08/14/18 09:17 Dose: 2 puff - Objective Vital Signs: Vital Signs Temperature 98.3 F 08/14/18 06:00 Pulse Rate 72 08/14/18 06:00 Respiratory Rate 20 08/14/18 06:00 Blood Pressure 141/92 08/14/18 06:00 O2 Sat by Pulse Oximetry (%) 96 08/13/18 21:00 Cardiovascular: Yes: S1, S2 Respiratory: Yes: On Nasal O2, Rhonchi Gastrointestinal: Yes: Normal Bowel Sounds, Soft Labs: CBC, BMP 08/11/18 06:30 08/11/18 06:30 INR, PTT INR 1.13 (0.83-1.09) H 08/09/18 05:30 Problem List - Problems (1) Acute respiratory failure Assessment/Plan: iv abx nebs pulm and id on board improved ct scan noted Code(s): J96.00 - ACUTE RESPIRATORY FAILURE, UNSP W HYPOXIA OR HYPERCAPNIA Qualifiers: Respiratory failure complication: hypoxia Qualified Code(s): J96.01 - Acute respiratory failure with hypoxia (2) Anemia Assessment/Plan: transfused prbc hem w/u per dr cecilia rasmussen repeat Code(s): D64.9 - ANEMIA, UNSPECIFIED Qualifiers: Anemia type: unspecified type Qualified Code(s): D64.9 - Anemia, unspecified (3) COPD (chronic obstructive pulmonary disease) Assessment/Plan: nebs iv steroids TAPER Code(s): J44.9 - CHRONIC OBSTRUCTIVE PULMONARY DISEASE, UNSPECIFIED Qualifiers: COPD type: unspecified COPD Qualified Code(s): J44.9 - Chronic obstructive pulmonary disease, unspecified (4) Pneumonia Assessment/Plan: IV abx per dr ricketts--to po abx x 7 days(augmentin) Ct of chest noted-- Code(s): J18.9 - PNEUMONIA, UNSPECIFIED ORGANISM Qualifiers: Pneumonia type: due to unspecified organism Laterality: unspecified laterality Lung location: unspecified part of lung Qualified Code(s): J18.9 - Pneumonia, unspecified organism (5) Squamous cell lung cancer Code(s): C34.90 - MALIGNANT NEOPLASM OF UNSP PART OF UNSP BRONCHUS OR LUNG (6) SVC syndrome Code(s): I87.1 - COMPRESSION OF VEIN
--- NOTE | 2018-08-14 15:04 | PN ---
Progress Note, Physician History of Present Illness: PULMONARY ALERT,NO DISTRESS,-SOB - Current Medication List Current Medications: Active Medications Albuterol Sulfate (Ventolin 0.083% Nebulizer Soln -) 1 amp NEB RQID [facility] Last Admin: 08/14/18 11:37 Dose: 1 amp Amoxicillin/Clavulanate Potassium (Augmentin - 875mg Tablet) 1 tab PO BID@0800, 1730 [facility] Diltiazem HCl (Cardizem Cd -) 120 mg PO DAILY [facility] Last Admin: 08/14/18 09:16 Dose: 120 mg Enoxaparin Sodium (Lovenox -) 90 mg SQ BID [facility] Last Admin: 08/14/18 09:12 Dose: 90 mg Hydrocortisone (Hytone 2.5% Lotion -) 1 applic TP TID PRN PRN Reason: FOR ITCHING Last Admin: 08/11/18 10:59 Dose: 1 applic Methylprednisolone Sodium Succinate (Solu-Medrol -) 40 mg IVPUSH BID [facility] Last Admin: 08/14/18 09:16 Dose: 40 mg Oxycodone HCl (Roxicodone -) 10 mg PO Q4H PRN PRN Reason: PAIN LEVEL 4 - 6 Last Admin: 08/14/18 02:03 Dose: 10 mg Ranitidine HCl (Zantac -) 150 mg PO BID [facility] Last Admin: 08/14/18 09:16 Dose: 150 mg Sotalol HCl (Betapace -) 80 mg PO BID [facility] Last Admin: 08/14/18 09:16 Dose: 80 mg Tiotropium [place] (Spiriva Respimat) 2 puff IH DAILY [facility] Last Admin: 08/14/18 09:17 Dose: 2 puff - Objective Vital Signs: Vital Signs Temperature 97.5 F L 08/14/18 10:00 Pulse Rate 75 08/14/18 10:00 Respiratory Rate 18 08/14/18 10:00 Blood Pressure 147/93 08/14/18 10:00 O2 Sat by Pulse Oximetry (%) 96 08/13/18 21:00 Constitutional: Yes: Well Nourished, Calm, Pallor HENT: Yes: WNL Neck: Yes: WNL Cardiovascular: Yes: Regular Rate and Rhythm, S1, S2 Respiratory: Yes: Diminished Gastrointestinal: Yes: Normal Bowel Sounds, Soft Extremities: Yes: WNL Edema: No Labs: CBC, BMP 02/07/19 06:30 08/11/18 06:30 INR, PTT INR 1.13 (0.83-1.09) H 08/09/18 05:30 Problem List - Problems (1) Acute respiratory failure Code(s): J96.00 - ACUTE RESPIRATORY FAILURE, UNSP W HYPOXIA OR HYPERCAPNIA Qualifiers: Qualified Code(s): J96.01 - Acute respiratory failure with hypoxia (2) Anemia Code(s): D64.9 - ANEMIA, UNSPECIFIED Qualifiers: Qualified Code(s): D64.9 - Anemia, unspecified (3) COPD (chronic obstructive pulmonary disease) Code(s): J44.9 - CHRONIC OBSTRUCTIVE PULMONARY DISEASE, UNSPECIFIED Qualifiers: Qualified Code(s): J44.9 - Chronic obstructive pulmonary disease, unspecified (4) Pneumonia Code(s): J18.9 - PNEUMONIA, UNSPECIFIED ORGANISM Qualifiers: Qualified Code(s): J18.9 - Pneumonia, unspecified organism (5) Squamous cell lung cancer Code(s): C34.90 - MALIGNANT NEOPLASM OF UNSP PART OF UNSP BRONCHUS OR LUNG (6) Afib Code(s): I48.91 - UNSPECIFIED ATRIAL FIBRILLATION (7) Anticoagulant long-term use Code(s): Z79.01 - NARRATIVE WRITER (CURRENT) USE OF 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 (8) HTN (hypertension) Code(s): I10 - ESSENTIAL (PRIMARY) HYPERTENSION (9) Lung cancer Code(s): C34.90 - MALIGNANT NEOPLASM OF UNSP PART OF UNSP BRONCHUS OR LUNG Qualifiers: Qualified Code(s): C34.11 - Malignant neoplasm of upper lobe, right bronchus or lung (10) Paroxysmal atrial fibrillation Code(s): I48.0 - PAROXYSMAL ATRIAL FIBRILLATION (11) SVC syndrome Code(s): I87.1 - COMPRESSION OF VEIN (12) Smoker Code(s): F17.200 - NICOTINE DEPENDENCE, UNSPECIFIED, UNCOMPLICATED Assessment/Plan ASSESSMENT AND PLAN: Pneumonia s/p Severe Sepsis Acute on Chronic Hypoxic Respiratory Failure NSCLC (Squamous Cell Ca) - s/p chemo/RT Acute COPD Exacerbation Paroxysmal Atrial Fibrillation h/o SVC Thrombus s/p thrombectomy/thrombolysis HTN Anemia h/o Hep C - antibiotics - anticoagulation - O2 to keep Spo2 >90% - inhaled bronchodilators - medrol taper - pain control - monitor H/H DR ABRAMS
[2018-08-14] MEDS: AMOX TR/POT CLAV 875MG/125MG TABLETS (FP) PO SCH (18:05)
--- NOTE | 2018-08-14 18:56 | PN ---
Progress Note, Physician Chief Complaint: SOB History of Present Illness: Denies SOB, able to ambulate without symptoms - Current Medication List Current Medications: Active Medications Albuterol Sulfate (Ventolin 0.083% Nebulizer Soln -) 1 amp NEB RQID [facility] Last Admin: 08/14/18 15:16 Dose: 1 amp Amoxicillin/Clavulanate Potassium (Augmentin - 875mg Tablet) 1 tab PO BID@0800, 1730 [facility] Last Admin: 08/14/18 18:05 Dose: 1 tab Diltiazem HCl (Cardizem Cd -) 120 mg PO DAILY [facility] Last Admin: 08/14/18 09:16 Dose: 120 mg Enoxaparin Sodium (Lovenox -) 90 mg SQ BID [facility] Last Admin: 08/14/18 09:12 Dose: 90 mg Hydrocortisone (Hytone 2.5% Lotion -) 1 applic TP TID PRN PRN Reason: FOR ITCHING Last Admin: 08/11/18 10:59 Dose: 1 applic Methylprednisolone Sodium Succinate (Solu-Medrol -) 40 mg IVPUSH BID [facility] Last Admin: 08/14/18 09:16 Dose: 40 mg Oxycodone HCl (Roxicodone -) 10 mg PO Q4H PRN PRN Reason: PAIN LEVEL 4 - 6 Last Admin: 08/14/18 18:34 Dose: 10 mg Ranitidine HCl (Zantac -) 150 mg PO BID [facility] Last Admin: 08/14/18 09:16 Dose: 150 mg Sotalol HCl (Betapace -) 80 mg PO BID [facility] Last Admin: 08/14/18 09:16 Dose: 80 mg Tiotropium [place] (Spiriva Respimat) 2 puff IH DAILY [facility] Last Admin: 08/14/18 09:17 Dose: 2 puff - Objective Vital Signs: Vital Signs Temperature 98 F 08/14/18 16:15 Pulse Rate 81 08/14/18 16:15 Respiratory Rate 20 08/14/18 16:15 Blood Pressure 130/87 08/14/18 16:15 O2 Sat by Pulse Oximetry (%) 96 08/14/18 09:00 Constitutional: Yes: No Distress Cardiovascular: Yes: Regular Rate and Rhythm Respiratory: Yes: Regular, CTA Bilaterally Gastrointestinal: Yes: Soft Edema: No Labs: CBC, BMP 08/11/18 06:30 08/11/18 06:30 INR, PTT INR 1.13 (0.83-1.09) H 08/09/18 05:30 Assessment/Plan 62M with COPD, Afib on Eliqus and squamous cell ca of lung c/b SVC syndrome s/p stent and RT/carboplatin/taxol admitted with SOB. Found to have Hgb 5.7 (from 9.1 a month prior). Stool quiac was negative. Haptoglobin normal. No e/o nutritional deficiency. Planned for colonoscopy in the future Being treated for PNA/COPD exacerbation, clinically improving On Lovenox for SVC thrombosis. Monitor Hgb, has been stable so far post-transfusion.
[2018-08-15] MEDS: oxyCODONE HCL 5 MG TABLET PO PRN (03:49)
[2018-08-15] MEDS: ALBUTEROL SO4 0.083% IH SOL 2.5 MG/3 ML VIAL.NEB. NEB SCH ×2 (07:00→11:00)
[2018-08-15] MEDS ORDERED: PT OWN MED DRAWER 7, Y5N ONE ×2 (07:32→09:36)
--- NOTE | 2018-08-15 08:15 | DS ---
Physical Examination Vital Signs: Vital Signs Temperature 98.5 F 08/15/18 07:46 Pulse Rate 74 08/15/18 07:46 Respiratory Rate 20 08/15/18 07:46 Blood Pressure 139/62 08/15/18 07:46 O2 Sat by Pulse Oximetry (%) 96 08/14/18 21:00 Constitutional: Yes: No Distress Eyes: Yes: WNL HENT: Yes: WNL Neck: Yes: WNL Cardiovascular: Yes: Regular Rate and Rhythm Respiratory: Yes: WNL Gastrointestinal: Yes: WNL Renal/: Yes: WNL Musculoskeletal: Yes: WNL Extremities: Yes: WNL Edema: No Peripheral Pulses WNL: Yes Integumentary: Yes: WNL Wound/Incision: Yes: Clean/Dry Neurological: Yes: WNL ...Motor Strength: WNL Psychiatric: Yes: WNL Labs: CBC, BMP 08/11/18 06:30 08/11/18 06:30 Discharge Summary Reason For Visit: SQUAMOUS CELL CARCINOMA OF LUNG/PULMONARY EMBOLISM Current Active Problems Acute respiratory failure (Acute) Anemia (Acute) COPD (chronic obstructive pulmonary disease) (Acute) Pneumonia (Acute) Rectal bleeding (Acute) Squamous cell lung cancer (Acute) Procedures: Principal: CXR/LABS Hospital Course: ADMITTED FOR IV ABX STEROIDS IV FOR RESPIRATORY SUPPROT AND 02 SUPPORT Condition: Guarded - Instructions Referrals: Brandon Mensah MD [Primary Care Provider] - Disposition: VNS/HOME HEALTH CARE - Home Medications Comprehensive Discharge Medication List: Ambulatory Orders Albuterol Sulfate [Proventil HFA Inhaler -] 1 - 2 inh PO QID 02/22/18 Acetaminophen [Tylenol .Regular Strength -] 650 mg PO Q6H PRN tablet 04/29/18 Sotalol HCl [Betapace -] 80 mg PO BID tablet 04/29/18 Tiotropium [place] [Spiriva Respimat] 2 puff IH DAILY inhaler 04/29/18 Diltiazem Cd [Cardizem Cd -] 120 mg PO DAILY #30 cap.cd.24h 05/05/18 Enoxaparin [Lovenox -] 90 mg SQ BID #60 disp.syrin 05/05/18 Oxycodone HCl 10 mg PO Q4H PRN 08/09/18 Albuterol 0.083% Nebulizer [place] [Ventolin 0.083% Nebulizer Soln -] 1 amp NEB RQID #90 amp 08/15/18 Amox-Tr/K Cl [Augmentin 875-125mg Tablet -] 1 tab PO BID@0800,1730 #10 tablet Hydrocortisone 2.5% Lotion [Hytone 2.5% Lotion -] 1 applic TP TID PRN #90 bottle 08/15/18 Methylprednisolone [Medrol Dose Jeff] 4 mg PO ASDIR #21 tablet 08/15/18 Ranitidine [Zantac -] 150 mg PO BID #60 tablet 08/15/18
--- NOTE | 2018-08-15 08:40 | PN ---
Progress Note (short form) - Note Progress Note: Breathing feels overall better. No acute events overnight. Intake & Output 08/12/18 08/13/18 08/14/18 08/15/18 23:59 23:59 23:59 23:59 Intake Total 980 620 700 Output Total 336 478 4392 Balance 680 420 -525 Last Vital Signs Temp Pulse Resp BP Pulse Ox 98.5 F 74 20 139/62 96 08/15/18 07:46 08/15/18 07:46 08/15/18 07:46 08/15/18 07:46 08/14/18 21:00 Active Medications Albuterol Sulfate (Ventolin 0.083% Nebulizer Soln -) 1 amp NEB RQID [facility] Last Admin: 08/15/18 07:00 Dose: 1 amp Amoxicillin/Clavulanate Potassium (Augmentin - 875mg Tablet) 1 tab PO BID@0800, 1730 [facility] Last Admin: 08/14/18 18:05 Dose: 1 tab Diltiazem HCl (Cardizem Cd -) 120 mg PO DAILY [facility] Last Admin: 08/14/18 09:16 Dose: 120 mg Enoxaparin Sodium (Lovenox -) 90 mg SQ BID [facility] Last Admin: 08/14/18 21:45 Dose: 90 mg Hydrocortisone (Hytone 2.5% Lotion -) 1 applic TP TID PRN PRN Reason: FOR ITCHING Last Admin: 08/11/18 10:59 Dose: 1 applic Methylprednisolone Sodium Succinate (Solu-Medrol -) 40 mg IVPUSH BID [facility] Last Admin: 08/14/18 21:45 Dose: 40 mg Ranitidine HCl (Zantac -) 150 mg PO BID [facility] Last Admin: 08/14/18 21:45 Dose: 150 mg Sotalol HCl (Betapace -) 80 mg PO BID [facility] Last Admin: 08/14/18 21:45 Dose: 80 mg Tiotropium [place] (Spiriva Respimat) 2 puff IH DAILY [facility] Last Admin: 08/14/18 09:17 Dose: 2 puff OBJECTIVE: Gen: Awake and alert, NAD Heart: RRR Lung: scattered coarse rhonchi, decreased breath sounds right, no wheeze Abd: soft, nontender Ext: no edema ASSESSMENT AND PLAN: Pneumonia Severe Sepsis Acute on Chronic Hypoxic Respiratory Failure NSCLC (Squamous Cell Ca) - s/p chemo/RT Acute COPD Exacerbation Paroxysmal Atrial Fibrillation h/o SVC Thrombus s/p thrombectomy/thrombolysis HTN Anemia h/o Hep C - AC - O2 to keep Spo2 >90% - inhaled bronchodilators - Prednisone taper - pain control - replete lytes - will need outpt f/u of chest imaging - D/C planning with home O2 Dr Jean
[2018-08-15] MEDS: methylPREDNISolone NA SUCC 40 MG/1 ML VIAL IVPUSH SCH (09:45)
[2018-08-15] MEDS: AMOX TR/POT CLAV 875MG/125MG TABLETS (FP) PO SCH (09:45)
[2018-08-15] MEDS: RANITIDINE HCL 150 MG TABLET (FP) PO SCH (09:45)
[2018-08-15] MEDS: SOTALOL HCL 80 MG TABLET (FP) PO SCH (09:45)
[2018-08-15] MEDS: ENOXAPARIN NA (PORCINE) 100 MG/1 ML DISP.SYRIN SQ SCH (09:45)
[2018-08-15] MEDS: TIOTROPIUM BROMIDE 2.5 MCG (SPIRIVA) RESPIMAT INHALER IH SCH (09:46)
[2018-08-15 11:40] VITALS: BP 127/88; PULSE 88; TEMP 98.3
== END 2018-08-15 12:32 | disposition home health service (06) | DRG 193 ==
LOC: JER 12:30 → JICU 15:33 → J8W 08-10 16:42
PROVIDERS: ADMIT Family Medicine; ATTEND Family Medicine
PROC: 30233N1 Transfusion of Nonautologous Red Blood Cells into Peripheral Vein, Percutaneous Approach (ICD-10-PCS; principal; 2018-08-08)
DX: J18.9 Pneumonia, unspecified organism (principal); J96.21 Acute and chronic respiratory failure with hypoxia; J44.1 Chronic obstructive pulmonary disease with (acute) exacerbation; I82.211 Chronic embolism and thrombosis of superior vena cava; C34.11 Malignant neoplasm of upper lobe, right bronchus or lung; D64.81 Anemia due to antineoplastic chemotherapy; J44.9 Chronic obstructive pulmonary disease, unspecified; I48.0 Paroxysmal atrial fibrillation; R55 Syncope and collapse; D72.819 Decreased white blood cell count, unspecified; I25.119 Atherosclerotic heart disease of native coronary artery with unspecified angina pectoris; I11.9 Hypertensive heart disease without heart failure
CPT/HCPCS: 36415; 36430; 36511; 71045-TC-FY; 71250-TC; 80053; 81003; 81015; 82272; 82550; 82607; 82728; 82746; 82803; 83010; 83036; 83540; 83550; 83605; 83615; 83735; 83880; 84100; 84484; 85025; 85044; 85610; 85730; 86850; 86880; 86900; 86901; 86922; 87040; 87070; 87086; 87186; 87205; 87804; 87899; 93005; 93010; 94640; 99284-25; G0480; J0131; J7030; P9038; P9058

== ENCOUNTER 2018-10-13 07:03 | Day surgery (SDC) | payer BC, OTHER ==
[2018-10-13] MEDS ORDERED: SODIUM CHLORIDE 250 ML IV ONE ×2 (08:00→12:30)
[2018-10-13] MEDS ORDERED: PALONOSETRON HCL 0.25 MG/5 ML VIAL IVPUSH ONE (08:30)
[2018-10-13] MEDS ORDERED: DEXAMETHASONE SODIUM PHOSPHATE 20 MG, DIPHENHYDRAMINE 50 MG, RANITIDINE INJECTION 50 MG... IVPB ONE (08:30)
[2018-10-13] MEDS ORDERED: SODIUM CHLORIDE IVPB ONE ×2 (09:00→12:00)
[2018-10-13] MEDS ORDERED: PACLITAXEL IVPB ONE (09:00)
[2018-10-13] MEDS ORDERED: CARBOPLATIN IVPB ONE (12:00)
[2018-10-13 12:04] LABS: BASO % 0.2 % (0-2.0); HEMATOCRIT 38.8 % (35.4-49); LYMPH % 10.1 % (8-40); MCH 31.4 pg (25.7-33.7); MCHC 33.5 g/dl (32.0-35.9); MEAN CELL VOLUME 93.7 fl (80-96); MEAN PLT VOLUME 7.4 fl (7.5-11.1); MONO % 1.2 % (3.8-10.2); NEUT % 88.5 % (42.8-82.8); PLATELET COUNT 226 K/MM3 (134-434); RBC 4.13 M/mm3 (4.00-5.60); RDW 16.7 % (11.9-15.9); WHITE BLOOD COUNT 5.8 K/mm3 (4.0-10.0)
[2018-10-13 12:37] LABS: ALBUMIN 3.8 g/dl (3.4-5.0); ALK PHOS 60 U/L (45-117); ANION GAP 9 MMOL/L (8-16); BILIRUBIN,DIRECT 0.1 mg/dL (0.0-0.2); BILIRUBIN,TOTAL 0.2 mg/dL (0.2-1); BLOOD UREA NITROGEN 8 mg/dL (7-18); CALCIUM 8.8 mg/dL (8.5-10.1); CHLORIDE 104 mmol/L (98-107); CO2 27 mmol/L (21-32); CREATININE 0.8 mg/dL (0.55-1.3); GLUCOSE,RANDOM 162 mg/dL (74-106); MAGNESIUM 1.9 mg/dL (1.8-2.4); POTASSIUM 4.3 mmol/L (3.5-5.1); SGOT/AST 12 U/L (15-37); SGPT/ALT 21 U/L (13-61); SODIUM 139 mmol/L (136-145); TOT PROT 7.6 g/dl (6.4-8.2)
[2018-10-13 16:16] VITALS: TEMP 97.5
--- NOTE | 2018-10-13 17:02 | PN ---
Progress Note (short form) - Note Progress Note: PAtient seen and examined Feels well. no specific complaints Last Vital Signs Temp Pulse Resp BP Pulse Ox 97.5 F L 97 H 18 122/75 10/13/18 11:02 10/13/18 11:02 10/13/18 11:02 10/13/18 11:02 Cor: RSR, No murmurs, No gallops Lungs: Clear to P&A Abd: Soft, Normal bowel sounds, No organomegaly Ext:No significant edema Labs/Meds reviewed A/P 63 y/o patient with nonsmall cell lung cancer receiving carboplatin/ taxol for neulasta support f/u 1 week
[2018-10-13 18:28] VITALS: BP 141/91; PULSE 101
== END 2018-10-13 18:15 | disposition home or self-care (01) ==
LOC: JONCCHEMO 07:03 → J7W 11:01 → JONCCHEMO 18:15
PROVIDERS: ATTEND Internal Medicine Hematology & Oncology
DX: Z51.11 Encounter for antineoplastic chemotherapy (principal); C34.11 Malignant neoplasm of upper lobe, right bronchus or lung
CPT/HCPCS: 36415; 80048; 80076; 83735; 85025; 96367; 96375; 96413; 96415; 96417; J2469

== ENCOUNTER → 2018-10-13 | Day surgery (SDC) | payer BC, OTHER | END | disposition home or self-care (01) | LOC: JRADIR 08:29 | PROVIDERS: ATTEND Internal Medicine Hematology & Oncology | PROC: 02HV33Z Insertion of Infusion Device into Superior Vena Cava, Percutaneous Approach (ICD-10-PCS; principal; 2018-10-13) | PROC: B518ZZA Fluoroscopy of Superior Vena Cava, Guidance (ICD-10-PCS; 2018-10-13) | DX: C34.11 Malignant neoplasm of upper lobe, right bronchus or lung (principal) | CPT/HCPCS: 36569; 36573; 77001-TC-FY; C1751 ==

== ENCOUNTER 2018-10-14 08:22 | Day surgery (SDC) | payer BC, OTHER ==
[2018-10-14] MEDS ORDERED: DEXAMETHASONE SOD PHOSPHATE 20 MG/5 ML VIAL IVPB ONE (13:22)
[2018-10-14] MEDS ORDERED: DEXAMETHASONE SOD PHOSPHATE 4 MG/1 ML VIAL IVPB ONE (13:22)
[2018-10-14] MEDS ORDERED: SODIUM CHLORIDE 500 ML IV SCH (13:30)
[2018-10-14] MEDS ORDERED: DEXAMETHASONE SOD PHOSPHATE 10 MG/1 ML VIAL ONE (14:08)
[2018-10-14] MEDS ORDERED: PEGFILGRASTIM 6 MG/0.6 ML DISP.SYRIN SQ ONE (14:45)
[2018-10-14 16:15] VITALS: BP 98/72; PULSE 101; TEMP 97.5
== END 2018-10-14 16:10 | disposition home or self-care (01) ==
LOC: JONCCHEMO 08:22 → J7W 13:56 → JONCCHEMO 16:10
PROVIDERS: ATTEND Internal Medicine Hematology & Oncology
PROC: 3E013GC Introduction of Other Therapeutic Substance into Subcutaneous Tissue, Percutaneous Approach (ICD-10-PCS; principal; 2018-10-14)
PROC: 3E033GC Introduction of Other Therapeutic Substance into Peripheral Vein, Percutaneous Approach (ICD-10-PCS; 2018-10-14)
DX: C34.11 Malignant neoplasm of upper lobe, right bronchus or lung (principal); Z76.89 Persons encountering health services in other specified circumstances
CPT/HCPCS: 96361; 96365; 96366; 96372; 96375; J1100; J2505; J7030

== ENCOUNTER 2018-11-03 07:28 | Day surgery (SDC) | payer BC, OTHER ==
[2018-11-03] MEDS ORDERED: SODIUM CHLORIDE 250 ML IV ONE ×2 (08:00→12:30)
[2018-11-03] MEDS ORDERED: PALONOSETRON HCL 0.25 MG/5 ML VIAL IVPUSH ONE (08:30)
[2018-11-03] MEDS ORDERED: DEXAMETHASONE SODIUM PHOSPHATE 20 MG, DIPHENHYDRAMINE 50 MG, RANITIDINE INJECTION 50 MG... IVPB ONE (08:30)
[2018-11-03] MEDS ORDERED: PACLITAXEL IVPB ONE (09:00)
[2018-11-03] MEDS ORDERED: SODIUM CHLORIDE IVPB ONE (09:00)
[2018-11-03 10:29] LABS: HEMATOCRIT 36.8 % (35.4-49); MCH 30.3 pg (25.7-33.7); MCHC 32.5 g/dl (32.0-35.9); MEAN CELL VOLUME 93.4 fl (80-96); MEAN PLT VOLUME 8.2 fl (7.5-11.1); PLATELET COUNT 201 K/MM3 (134-434); RBC 3.94 M/mm3 (4.00-5.60); RDW 16.8 % (11.9-15.9); WHITE BLOOD COUNT 6.4 K/mm3 (4.0-10.0)
[2018-11-03 10:59] LABS: ALBUMIN 3.7 g/dl (3.4-5.0); ALK PHOS 84 U/L (45-117); ANION GAP 9 MMOL/L (8-16); BILIRUBIN,DIRECT 0.1 mg/dL (0.0-0.2); BILIRUBIN,TOTAL 0.4 mg/dL (0.2-1); BLOOD UREA NITROGEN 10 mg/dL (7-18); CALCIUM 8.8 mg/dL (8.5-10.1); CHLORIDE 102 mmol/L (98-107); CO2 25 mmol/L (21-32); CREATININE 0.9 mg/dL (0.55-1.3); GLUCOSE,RANDOM 210 mg/dL (74-106); MAGNESIUM 2.1 mg/dL (1.8-2.4); POTASSIUM 4.2 mmol/L (3.5-5.1); SGOT/AST 11 U/L (15-37); SGPT/ALT 24 U/L (13-61); SODIUM 136 mmol/L (136-145); TOT PROT 7.3 g/dl (6.4-8.2)
[2018-11-03 12:13] LABS: ANISOCYTOSIS 1+; MACROCYTOSIS 1+; PLATELET ESTIMATE NORMAL
[2018-11-03 18:48] VITALS: BP 116/75; TEMP 104
[2018-11-03 18:55] VITALS: PULSE 97
== END 2018-11-03 16:55 | disposition home or self-care (01) ==
LOC: JRADIR 07:28 → J7W 10:16 → JRADIR 16:55
PROVIDERS: ATTEND Internal Medicine Hematology & Oncology
DX: Z51.11 Encounter for antineoplastic chemotherapy (principal); C34.11 Malignant neoplasm of upper lobe, right bronchus or lung
CPT/HCPCS: 36415; 36569; 71046-TC-FY; 80048; 80076; 83735; 85027; 96367; 96375; 96413; 96417; J2469

== ENCOUNTER 2018-11-04 07:03 | Day surgery (SDC) | payer BC, OTHER ==
[2018-11-04] MEDS ORDERED: PEGFILGRASTIM 6 MG/0.6 ML DISP.SYRIN SQ ONE (09:00)
[2018-11-04 14:46] VITALS: BP 114/74; PULSE 98; TEMP 97.4
== END 2018-11-04 13:45 | disposition home or self-care (01) ==
LOC: JONCCHEMO 07:03 → J7W 14:41
PROVIDERS: ATTEND Internal Medicine Hematology & Oncology
PROC: 3E013GC Introduction of Other Therapeutic Substance into Subcutaneous Tissue, Percutaneous Approach (ICD-10-PCS; principal; 2018-11-04)
DX: C34.11 Malignant neoplasm of upper lobe, right bronchus or lung (principal); Z76.89 Persons encountering health services in other specified circumstances
CPT/HCPCS: 96372; J2505

== ENCOUNTER 2018-11-24 07:37 | Day surgery (SDC) | payer BC, OTHER ==
[2018-11-24] MEDS ORDERED: SODIUM CHLORIDE 250 ML IV ONE ×2 (09:30→14:00)
[2018-11-24 09:42] LABS: BASO % 0.1 % (0-2.0); EOS % 0.1 % (0-4.5); HEMATOCRIT 36.4 % (35.4-49); HEMOGLOBIN 12.1 GM/dL (11.7-16.9); LYMPH % 7.6 % (8-40); MCH 30.9 pg (25.7-33.7); MCHC 33.3 g/dl (32.0-35.9); MEAN CELL VOLUME 92.6 fl (80-96); MEAN PLT VOLUME 7.1 fl (7.5-11.1); MONO % 0.8 % (3.8-10.2); NEUT % 91.4 % (42.8-82.8); PLATELET COUNT 201 K/MM3 (134-434); RBC 3.93 M/mm3 (4.00-5.60); RDW 16.4 % (11.9-15.9)
[2018-11-24] MEDS ORDERED: [UNRECOGNIZED DRUG - OTHER] IVPB ONE (10:00)
[2018-11-24] MEDS ORDERED: PALONOSETRON HCL 0.25 MG/5 ML VIAL IVPUSH ONE (10:00)
[2018-11-24] MEDS ORDERED: DEXAMETHASONE SODIUM PHOSPHATE IVPB ONE (10:00)
[2018-11-24] MEDS ORDERED: RANITIDINE IVPB ONE (10:00)
[2018-11-24 10:11] LABS: ALBUMIN 3.6 g/dl (3.4-5.0); BILIRUBIN,DIRECT 0.1 mg/dL (0.0-0.2); BILIRUBIN,TOTAL 0.3 mg/dL (0.2-1); CALCIUM 8.9 mg/dL (8.5-10.1); MAGNESIUM 1.9 mg/dL (1.8-2.4); POTASSIUM 4.2 mmol/L (3.5-5.1); TOT PROT 7.4 g/dl (6.4-8.2)
[2018-11-24] MEDS ORDERED: SODIUM CHLORIDE IVPB ONE ×2 (10:30→13:30)
[2018-11-24] MEDS ORDERED: PACLITAXEL IVPB ONE (10:30)
[2018-11-24 12:27] LABS: ANISOCYTOSIS 1+; MACROCYTOSIS 1+; PLATELET ESTIMATE NORMAL
[2018-11-24] MEDS ORDERED: CARBOPLATIN IVPB ONE (13:30)
[2018-11-24 17:13] VITALS: TEMP 97.9
[2018-11-24 17:15] VITALS: BP 113/88; PULSE 88
== END 2018-11-24 16:40 | disposition home or self-care (01) ==
LOC: JRADIR 07:37 → J7W 11:02 → JRADIR 16:40
PROVIDERS: ATTEND Internal Medicine Hematology & Oncology
PROC: 02HV33Z Insertion of Infusion Device into Superior Vena Cava, Percutaneous Approach (ICD-10-PCS; principal; 2018-11-24)
PROC: B518ZZA Fluoroscopy of Superior Vena Cava, Guidance (ICD-10-PCS; 2018-11-24)
DX: C34.91 Malignant neoplasm of unspecified part of right bronchus or lung (principal)
CPT/HCPCS: 36415; 36569; 36573; 77001-TC-FY; 80048; 80076; 82962; 83735; 85025; 96367; 96375; 96413; 96415; 96417; C1751; J2469

== ENCOUNTER 2018-11-24 16:43 | Inpatient (IN) | payer BC, OTHER | END 2018-11-25 17:00 | disposition left against medical advice (07) | LOC: JER 16:43 → JERBED 20:42 ==

== ENCOUNTER 2018-11-25 07:09 | Day surgery (SDC) | payer BC, OTHER | END 2018-11-26 10:35 | disposition home or self-care (01) | LOC: JONCCHEMO 07:09 → J7W 11-26 09:37 → JONCCHEMO 11-26 10:35 ==

== ENCOUNTER 2018-12-15 05:46 | Day surgery (SDC) | payer BC, OTHER ==
[2018-12-15] MEDS ORDERED: SODIUM CHLORIDE 250 ML IV ONE ×2 (09:00→13:30)
[2018-12-15] MEDS ORDERED: PALONOSETRON HCL 0.25 MG/5 ML VIAL IVPUSH ONE (09:30)
[2018-12-15] MEDS ORDERED: DEXAMETHASONE SODIUM PHOSPHATE 20 MG, DIPHENHYDRAMINE 50 MG, RANITIDINE INJECTION 50 MG... IVPB ONE (09:30)
[2018-12-15] MEDS ORDERED: SODIUM CHLORIDE IVPB ONE ×2 (10:00→12:00)
[2018-12-15] MEDS ORDERED: PACLITAXEL IVPB ONE (10:00)
[2018-12-15 10:14] LABS: BASO % 0.2 % (0-2.0); EOS % 0.1 % (0-4.5); HEMATOCRIT 34.8 % (35.4-49); LYMPH % 10.7 % (8-40); MCH 31.4 pg (25.7-33.7); MCHC 34.6 g/dl (32.0-35.9); MEAN PLT VOLUME 7.7 fl (7.5-11.1); MONO % 1.5 % (3.8-10.2); NEUT % 87.5 % (42.8-82.8); RBC 3.82 M/mm3 (4.00-5.60); RDW 16.3 % (11.9-15.9); WHITE BLOOD COUNT 4.2 K/mm3 (4.0-10.0)
[2018-12-15 10:23] LABS: PLATELET COUNT 210 K/MM3 (134-434)
[2018-12-15 10:59] LABS: BILIRUBIN,DIRECT 0.1 mg/dL (0.0-0.2); BILIRUBIN,TOTAL 0.2 mg/dL (0.2-1); BLOOD UREA NITROGEN 12.7 mg/dL (7-18); CALCIUM 9.1 mg/dL (8.5-10.1); MAGNESIUM 2.2 mg/dL (1.8-2.4); POTASSIUM 4.4 mmol/L (3.5-5.1); TOT PROT 7.5 g/dl (6.4-8.2)
[2018-12-15] MEDS ORDERED: DEXAMETHASONE SOD PHOSPHATE 10 MG/1 ML VIAL ONE ×2 (11:40→14:25)
[2018-12-15] MEDS ORDERED: SODIUM CHLORIDE 0.45%/POT 20 MEQ/1,000 ML INFUS.BAG IV SCH (11:45)
[2018-12-15] MEDS ORDERED: MAGNESIUM SULF 50% (8.12 MEQ/2 ML-1 GM VIAL) IVPB SCH (11:45)
[2018-12-15] MEDS ORDERED: DEXAMETHASONE SOD PHOSPHATE 10 MG/1 ML VIAL IVPB ONE (11:45)
[2018-12-15] MEDS ORDERED: CARBOPLATIN IVPB ONE (12:00)
[2018-12-15] MEDS ORDERED: SODIUM CHLORIDE 0.45% 250 ML IV SCH (13:15)
[2018-12-15] MEDS ORDERED: DEXAMETHASONE SOD PHOSPHATE 4 MG/1 ML VIAL IVPB ONE (14:24)
[2018-12-15 18:23] VITALS: TEMP 97.5
[2018-12-15 18:33] VITALS: BP 123/82; PULSE 113
== END 2018-12-15 14:45 | disposition home or self-care (01) ==
LOC: JRADIR 05:46 → J7W 10:21 → JRADIR 14:45
PROVIDERS: ATTEND Internal Medicine Hematology & Oncology
PROC: 3E04305 Introduction of Other Antineoplastic into Central Vein, Percutaneous Approach (ICD-10-PCS; principal; 2018-12-15)
PROC: 02HV33Z Insertion of Infusion Device into Superior Vena Cava, Percutaneous Approach (ICD-10-PCS; 2018-12-15)
PROC: B518ZZA Fluoroscopy of Superior Vena Cava, Guidance (ICD-10-PCS; 2018-12-15)
DX: Z51.11 Encounter for antineoplastic chemotherapy (principal); C34.91 Malignant neoplasm of unspecified part of right bronchus or lung
CPT/HCPCS: 36415; 36569; 36573; 77001-TC-FY; 80048; 80076; 83735; 85025; 96361; 96367; 96375; 96413; C1751; J1100; J2469

== ENCOUNTER 2018-12-15 14:55 | Emergency (ER) | payer BC, OTHER | END 2018-12-15 18:29 | disposition left against medical advice (07) | LOC: JER 14:55 ==

== ENCOUNTER 2018-12-16 06:40 | Day surgery (SDC) | payer BC, OTHER ==
[2018-12-16] MEDS ORDERED: PEGFILGRASTIM 6 MG/0.6 ML DISP.SYRIN SQ ONE (09:00)
[2018-12-16 13:35] VITALS: BP 109/77; PULSE 92; TEMP 97.9
== END 2018-12-16 12:00 | disposition home or self-care (01) ==
LOC: JONCCHEMO 06:40 → J7W 11:18 → JONCCHEMO 12:00
PROVIDERS: ATTEND Internal Medicine Hematology & Oncology
PROC: 3E013GC Introduction of Other Therapeutic Substance into Subcutaneous Tissue, Percutaneous Approach (ICD-10-PCS; principal; 2018-12-16)
DX: C34.91 Malignant neoplasm of unspecified part of right bronchus or lung (principal); Z76.89 Persons encountering health services in other specified circumstances
CPT/HCPCS: 96372; J2505

== ENCOUNTER 2018-12-18 20:57 | Emergency (ER) | payer BC, OTHER | END 2018-12-18 22:54 | disposition home or self-care (01) | LOC: JER 20:57 ==

== ENCOUNTER 2019-01-09 06:41 | Day surgery (SDC) | payer BC, OTHER ==
[2019-01-09] MEDS ORDERED: PALONOSETRON HCL 0.25 MG/5 ML VIAL IVPUSH ONE (10:00)
[2019-01-09] MEDS ORDERED: DEXAMETHASONE SODIUM PHOSPHATE IVPB ONE (10:00)
[2019-01-09] MEDS ORDERED: [UNRECOGNIZED DRUG - OTHER] IVPB ONE (10:00)
[2019-01-09] MEDS ORDERED: RANITIDINE IVPB ONE (10:00)
[2019-01-09] MEDS ORDERED: SODIUM CHLORIDE IVPB ONE (10:30)
[2019-01-09] MEDS ORDERED: PACLITAXEL IVPB ONE (10:30)
[2019-01-09 10:55] LABS: BASO % 0.2 % (0-2.0); EOS % 0.2 % (0-4.5); HEMATOCRIT 37.2 % (35.4-49); HEMOGLOBIN 12.3 GM/dL (11.7-16.9); LYMPH % 14.8 % (8-40); MCH 30.7 pg (25.7-33.7); MCHC 33.1 g/dl (32.0-35.9); MEAN CELL VOLUME 92.8 fl (80-96); MEAN PLT VOLUME 7.1 fl (7.5-11.1); MONO % 1.1 % (3.8-10.2); NEUT % 83.7 % (42.8-82.8); PLATELET COUNT 194 K/MM3 (134-434); RBC 4.01 M/mm3 (4.00-5.60); RDW 16.1 % (11.9-15.9)
[2019-01-09 11:58] LABS: ALBUMIN 3.7 g/dl (3.4-5.0); BILIRUBIN,DIRECT 0.1 mg/dL (0.0-0.2); BLOOD UREA NITROGEN 10.8 mg/dL (7-18); MAGNESIUM 2.1 mg/dL (1.8-2.4); POTASSIUM 4.2 mmol/L (3.5-5.1); TOT PROT 7.4 g/dl (6.4-8.2)
[2019-01-09] MEDS ORDERED: DEXAMETHASONE SOD PHOSPHATE 10 MG/1 ML VIAL IVPB ONE (13:00)
[2019-01-09] MEDS ORDERED: RANITIDINE HCL 50 MG/2 ML VIAL IVPB ONE (13:00)
[2019-01-09] MEDS ORDERED: oxyCODONE HCL 5 MG TABLET PO PRN (13:19)
[2019-01-09] MEDS ORDERED: SODIUM CHLORIDE 250 ML IV ONE (13:30)
[2019-01-09 17:50] VITALS: PULSE 54; TEMP 97.6
[2019-01-09 17:57] VITALS: BP 109/63
== END 2019-01-09 18:02 | disposition home or self-care (01) ==
LOC: JRADIR 06:41 → J7W 11:16 → JRADIR 18:02
PROVIDERS: ATTEND Internal Medicine Hematology & Oncology
DX: Z51.11 Encounter for antineoplastic chemotherapy (principal); C34.91 Malignant neoplasm of unspecified part of right bronchus or lung
CPT/HCPCS: 36415; 36569; 77001-TC-FY; 80048; 80076; 83735; 85025; 96367; 96375; 96413; 96415; C1751; J1100; J2469

== ENCOUNTER 2019-01-10 07:15 | Day surgery (SDC) | payer BC, OTHER ==
[2019-01-10] MEDS ORDERED: PEGFILGRASTIM 6 MG/0.6 ML DISP.SYRIN SQ ONE (10:00)
[2019-01-10 16:02] VITALS: BP 112/75; PULSE 99; TEMP 98.3
== END 2019-01-10 15:40 | disposition home or self-care (01) ==
LOC: JONCCHEMO 07:15 → J7W 15:27 → JONCCHEMO 15:40
PROVIDERS: ATTEND Internal Medicine Hematology & Oncology
PROC: 3E013GC Introduction of Other Therapeutic Substance into Subcutaneous Tissue, Percutaneous Approach (ICD-10-PCS; principal; 2019-01-10)
DX: C34.91 Malignant neoplasm of unspecified part of right bronchus or lung (principal); Z76.89 Persons encountering health services in other specified circumstances
CPT/HCPCS: 96372; 96401; J2505

== ENCOUNTER 2019-01-30 05:57 | Day surgery (SDC) | payer BC, OTHER ==
[2019-01-30] MEDS ORDERED: RANITIDINE IVPB ONE (10:00)
[2019-01-30] MEDS ORDERED: PALONOSETRON HCL 0.25 MG/5 ML VIAL IVPUSH ONE (10:00)
[2019-01-30] MEDS ORDERED: [UNRECOGNIZED DRUG - OTHER] IVPB ONE (10:00)
[2019-01-30] MEDS ORDERED: DEXAMETHASONE SODIUM PHOSPHATE IVPB ONE (10:00)
[2019-01-30] MEDS ORDERED: SODIUM CHLORIDE IVPB ONE (10:30)
[2019-01-30] MEDS ORDERED: PACLITAXEL IVPB ONE (10:30)
[2019-01-30 11:18] LABS: BASO % 0.5 % (0-2.0); EOS % 0.1 % (0-4.5); HEMATOCRIT 34.2 % (35.4-49); HEMOGLOBIN 11.4 GM/dL (11.7-16.9); LYMPH % 10.3 % (8-40); MCH 31.2 pg (25.7-33.7); MCHC 33.3 g/dl (32.0-35.9); MEAN CELL VOLUME 93.6 fl (80-96); MEAN PLT VOLUME 7.2 fl (7.5-11.1); NEUT % 88.1 % (42.8-82.8); PLATELET COUNT 201 K/MM3 (134-434); RBC 3.65 M/mm3 (4.00-5.60); RDW 16.2 % (11.9-15.9); WHITE BLOOD COUNT 5.9 K/mm3 (4.0-10.0)
[2019-01-30 11:48] LABS: ALBUMIN 3.9 g/dl (3.4-5.0); BILIRUBIN,DIRECT 0.1 mg/dL (0.0-0.2); BILIRUBIN,TOTAL 0.2 mg/dL (0.2-1); BLOOD UREA NITROGEN 10.9 mg/dL (7-18); CALCIUM 9.1 mg/dL (8.5-10.1); MAGNESIUM 1.8 mg/dL (1.8-2.4); POTASSIUM 4.6 mmol/L (3.5-5.1); TOT PROT 7.2 g/dl (6.4-8.2)
[2019-01-30] MEDS ORDERED: INSULIN (NOVOLOG) ASPART 100 UNITS/ML 10ML VIAL SQ ONE (13:15)
[2019-01-30] MEDS ORDERED: SODIUM CHLORIDE 250 ML IV ONE (13:30)
[2019-01-30] MEDS ORDERED: oxyCODONE HCL 5 MG TABLET PO ONE (14:41)
[2019-01-30 16:14] VITALS: BP 124/83; PULSE 97; TEMP 97.8
== END 2019-01-30 17:37 | disposition home or self-care (01) ==
LOC: JRADIR 05:57 → J7W 09:24 → JRADIR 17:37
PROVIDERS: ATTEND Internal Medicine Hematology & Oncology
PROC: 3E04305 Introduction of Other Antineoplastic into Central Vein, Percutaneous Approach (ICD-10-PCS; principal; 2019-01-30)
PROC: 3E043GC Introduction of Other Therapeutic Substance into Central Vein, Percutaneous Approach (ICD-10-PCS; 2019-01-30)
PROC: 3E0437Z Introduction of Electrolytic and Water Balance Substance into Central Vein, Percutaneous Approach (ICD-10-PCS; 2019-01-30)
PROC: 05H633Z Insertion of Infusion Device into Left Subclavian Vein, Percutaneous Approach (ICD-10-PCS; 2019-01-30)
PROC: B547ZZA Ultrasonography of Left Subclavian Vein, Guidance (ICD-10-PCS; 2019-01-30)
DX: Z51.11 Encounter for antineoplastic chemotherapy (principal); Z45.2 Encounter for adjustment and management of vascular access device; C34.11 Malignant neoplasm of upper lobe, right bronchus or lung
CPT/HCPCS: 36415; 36569; 36573; 77001-TC-FY; 80048; 80076; 82378; 83735; 85025; 96367; 96375; 96413; 96415; C1751; J2469

== ENCOUNTER 2019-01-31 05:54 | Day surgery (SDC) | payer BC, OTHER ==
[2019-01-31] MEDS ORDERED: PEGFILGRASTIM 6 MG/0.6 ML DISP.SYRIN SQ ONE (10:00)
[2019-01-31 19:14] VITALS: BP 124/80; PULSE 95; TEMP 97.7
== END 2019-01-31 15:40 | disposition home or self-care (01) ==
LOC: JONCCHEMO 05:54 → J7W 09:30 → JONCCHEMO 15:40
PROVIDERS: ATTEND Internal Medicine Hematology & Oncology
PROC: 3E013GC Introduction of Other Therapeutic Substance into Subcutaneous Tissue, Percutaneous Approach (ICD-10-PCS; principal; 2019-01-31)
DX: C34.11 Malignant neoplasm of upper lobe, right bronchus or lung (principal); Z76.89 Persons encountering health services in other specified circumstances
CPT/HCPCS: J2505

== ENCOUNTER 2019-02-27 07:13 | Day surgery (SDC) | payer BC, OTHER ==
[2019-02-27] MEDS ORDERED: PALONOSETRON HCL 0.25 MG/5 ML VIAL IVPUSH ONE (09:30)
[2019-02-27] MEDS ORDERED: DEXAMETHASONE SODIUM PHOSPHATE 10 MG in SODIUM CHLORIDE 50 ML IVPB ONE (09:30)
[2019-02-27] MEDS ORDERED: GEMCITABINE HCL IV ONE ×2 (10:00→11:00)
[2019-02-27] MEDS ORDERED: SODIUM CHLORIDE IV ONE ×2 (10:00→11:00)
[2019-02-27] MEDS ORDERED: SODIUM CHLORIDE 500 ML IV ONE (10:30)
[2019-02-27 10:48] LABS: BASO % 0.9 % (0-2.0); EOS % 0.9 % (0-4.5); HEMATOCRIT 36.3 % (35.4-49); LYMPH % 18.1 % (8-40); MCH 30.7 pg (25.7-33.7); MEAN CELL VOLUME 93.1 fl (80-96); MEAN PLT VOLUME 7.8 fl (7.5-11.1); MONO % 2.2 % (3.8-10.2); NEUT % 77.9 % (42.8-82.8); PLATELET COUNT 211 K/MM3 (134-434); RDW 14.6 % (11.9-15.9); WHITE BLOOD COUNT 3.3 K/mm3 (4.0-10.0)
[2019-02-27 11:12] LABS: ALBUMIN 4.2 g/dl (3.4-5.0); BILIRUBIN,DIRECT 0.1 mg/dL (0.0-0.2); BILIRUBIN,TOTAL 0.3 mg/dL (0.2-1); BLOOD UREA NITROGEN 10.9 mg/dL (7-18); CALCIUM 9.5 mg/dL (8.5-10.1); CREATININE 0.9 mg/dL (0.55-1.3); POTASSIUM 4.1 mmol/L (3.5-5.1); TOT PROT 7.5 g/dl (6.4-8.2)
[2019-02-27 16:57] VITALS: TEMP 98.2
[2019-02-27 16:58] VITALS: BP 121/78; PULSE 93
== END 2019-02-27 14:35 | disposition home or self-care (01) ==
LOC: JRADIR 07:13 → J7W 12:26 → JRADIR 14:35
PROVIDERS: ATTEND Internal Medicine Hematology & Oncology
DX: Z51.11 Encounter for antineoplastic chemotherapy (principal); C34.11 Malignant neoplasm of upper lobe, right bronchus or lung
CPT/HCPCS: 36415; 36569; 77001-TC-FY; 80048; 80076; 82378; 83735; 85025; 96361; 96375; 96413; C1751; J2469

== ENCOUNTER 2019-03-08 13:16 | Day surgery (SDC) | payer BC, OTHER ==
[2019-03-08 10:34] LABS: BASO % 0.5 % (0-2.0); EOS % 3.8 % (0-4.5); HEMATOCRIT 34.8 % (35.4-49); HEMOGLOBIN 11.7 GM/dL (11.7-16.9); MCH 30.8 pg (25.7-33.7); MCHC 33.7 g/dl (32.0-35.9); MEAN CELL VOLUME 91.5 fl (80-96); MONO % 12.6 % (3.8-10.2); NEUT % 50.1 % (42.8-82.8); RDW 13.9 % (11.9-15.9); WHITE BLOOD COUNT 2.5 K/mm3 (4.0-10.0)
[2019-03-08 10:46] LABS: PLATELET COUNT 126 K/MM3 (134-434)
[2019-03-08 11:02] LABS: ALBUMIN 3.7 g/dl (3.4-5.0); BILIRUBIN,DIRECT 0.1 mg/dL (0.0-0.2); BILIRUBIN,TOTAL 0.1 mg/dL (0.2-1); CALCIUM 8.7 mg/dL (8.5-10.1); MAGNESIUM 2.2 mg/dL (1.8-2.4); POTASSIUM 3.9 mmol/L (3.5-5.1); TOT PROT 6.9 g/dl (6.4-8.2)
[~2019-03-08 13:16] MED LIST changes: -CARBOPLATIN IVPB ONE; +DEXAMETHASONE SODIUM PHOSPHATE 10 MG in SODIUM CHLORIDE 50 ML IVPB ONE; -DEXAMETHASONE SODIUM PHOSPHATE 20 MG, DIPHENHYDRAMINE 50 MG, RANITIDINE INJECTION 50 MG... IVPB ONE; +GEMCITABINE HCL IV ONE; -PACLITAXEL 102 MG in SODIUM CHLORIDE 250 ML IVPB ONE; +SODIUM CHLORIDE 500 ML IV ONE; +SODIUM CHLORIDE IV ONE; -SODIUM CHLORIDE IVPB ONE
[2019-03-08 17:21] VITALS: TEMP 98
[2019-03-08 17:34] VITALS: BP 98/58; PULSE 63
== END 2019-03-08 16:15 | disposition home or self-care (01) ==
LOC: J7W 13:16 → JRADIR 13:16
PROVIDERS: ATTEND Internal Medicine Hematology & Oncology
PROC: 02HV33Z Insertion of Infusion Device into Superior Vena Cava, Percutaneous Approach (ICD-10-PCS; principal; 2019-03-08)
PROC: B518ZZA Fluoroscopy of Superior Vena Cava, Guidance (ICD-10-PCS; 2019-03-08)
DX: C34.90 Malignant neoplasm of unspecified part of unspecified bronchus or lung (principal)
CPT/HCPCS: 36415; 36569; 36573; 77001-TC-FY; 80048; 80076; 83735; 85025; 96361; 96375; 96413; C1751; J2469

== ENCOUNTER 2019-03-09 05:44 | Day surgery (SDC) | payer BC, OTHER ==
[2019-03-09] MEDS ORDERED: PEGFILGRASTIM 6 MG/0.6 ML DISP.SYRIN SQ ONE (10:00)
[2019-03-09 16:30] VITALS: BP 112/73; PULSE 95; TEMP 97.9
== END 2019-03-09 14:30 | disposition home or self-care (01) ==
LOC: JONCCHEMO 05:44 → J7W 14:23 → JONCCHEMO 14:30
PROVIDERS: ATTEND Internal Medicine Hematology & Oncology
PROC: 3E013GC Introduction of Other Therapeutic Substance into Subcutaneous Tissue, Percutaneous Approach (ICD-10-PCS; principal; 2019-03-09)
DX: Z76.89 Persons encountering health services in other specified circumstances (principal); C34.11 Malignant neoplasm of upper lobe, right bronchus or lung
CPT/HCPCS: 96372; J2505

== ENCOUNTER 2019-03-20 06:19 | Day surgery (SDC) | payer BC, OTHER ==
[2019-03-20] MEDS ORDERED: PALONOSETRON HCL 0.25 MG/5 ML VIAL IVPUSH ONE (10:00)
[2019-03-20] MEDS ORDERED: DEXAMETHASONE SODIUM PHOSPHATE 10 MG in SODIUM CHLORIDE 50 ML IVPB ONE (10:00)
[2019-03-20] MEDS ORDERED: SODIUM CHLORIDE 500 ML IV ONE (11:00)
[2019-03-20 11:28] LABS: BASO % 0.6 % (0-2.0); EOS % 3.2 % (0-4.5); HEMATOCRIT 33.2 % (35.4-49); HEMOGLOBIN 11.1 GM/dL (11.7-16.9); LYMPH % 20.7 % (8-40); MCH 30.8 pg (25.7-33.7); MCHC 33.5 g/dl (32.0-35.9); MEAN CELL VOLUME 91.9 fl (80-96); MEAN PLT VOLUME 7.7 fl (7.5-11.1); MONO % 11.3 % (3.8-10.2); NEUT % 64.2 % (42.8-82.8); PLATELET COUNT 96 K/MM3 (134-434); RBC 3.61 M/mm3 (4.00-5.60); RDW 14.5 % (11.9-15.9)
[2019-03-20 12:01] LABS: ALBUMIN 3.7 g/dl (3.4-5.0); BILIRUBIN,TOTAL 0.1 mg/dL (0.2-1); BLOOD UREA NITROGEN 11.6 mg/dL (7-18); CALCIUM 8.7 mg/dL (8.5-10.1); CREATININE 0.9 mg/dL (0.55-1.3); MAGNESIUM 2.2 mg/dL (1.8-2.4); POTASSIUM 3.9 mmol/L (3.5-5.1); TOT PROT 6.9 g/dl (6.4-8.2)
[2019-03-20] MEDS ORDERED: GEMCITABINE HCL IV ONE (13:00)
[2019-03-20] MEDS ORDERED: SODIUM CHLORIDE IV ONE (13:00)
[2019-03-20] MEDS ORDERED: PORTA CATH FLUSH 10 ML IVPUSH ONE (19:26)
[2019-03-20 19:27] VITALS: BP 104/65; PULSE 84; TEMP 97.7
== END 2019-03-20 15:30 | disposition home or self-care (01) ==
LOC: JRADIR 06:19 → J7W 12:06 → JRADIR 15:30
PROVIDERS: ATTEND Internal Medicine Hematology & Oncology
PROC: 3E04305 Introduction of Other Antineoplastic into Central Vein, Percutaneous Approach (ICD-10-PCS; principal; 2019-03-20)
PROC: 3E043GC Introduction of Other Therapeutic Substance into Central Vein, Percutaneous Approach (ICD-10-PCS; 2019-03-20)
PROC: 3E0437Z Introduction of Electrolytic and Water Balance Substance into Central Vein, Percutaneous Approach (ICD-10-PCS; 2019-03-20)
DX: Z51.11 Encounter for antineoplastic chemotherapy (principal); C34.11 Malignant neoplasm of upper lobe, right bronchus or lung
CPT/HCPCS: 36415; 36569; 77001-TC-FY; 80053; 83735; 85025; 96367; 96375; 96413; C1751; J2469; J9201

== ENCOUNTER 2019-03-27 05:58 | Day surgery (SDC) | payer BC, OTHER ==
[2019-03-27] MEDS ORDERED: DEXAMETHASONE SODIUM PHOSPHATE 10 MG in SODIUM CHLORIDE 50 ML IVPB ONE (10:00)
[2019-03-27] MEDS ORDERED: PALONOSETRON HCL 0.25 MG/5 ML VIAL IVPUSH ONE (10:00)
[2019-03-27] MEDS ORDERED: SODIUM CHLORIDE IV ONE (10:30)
[2019-03-27] MEDS ORDERED: GEMCITABINE HCL IV ONE (10:30)
[2019-03-27] MEDS ORDERED: SODIUM CHLORIDE 500 ML IV ONE (11:00)
[2019-03-27 13:04] LABS: BASO % 0.4 % (0-2.0); EOS % 0.7 % (0-4.5); HEMATOCRIT 33.9 % (35.4-49); HEMOGLOBIN 11.1 GM/dL (11.7-16.9); LYMPH % 21.9 % (8-40); MCH 30.4 pg (25.7-33.7); MCHC 32.7 g/dl (32.0-35.9); MEAN CELL VOLUME 92.9 fl (80-96); MEAN PLT VOLUME 7.7 fl (7.5-11.1); MONO % 11.7 % (3.8-10.2); NEUT % 65.3 % (42.8-82.8); PLATELET COUNT 197 K/MM3 (134-434); RBC 3.65 M/mm3 (4.00-5.60); RDW 15.2 % (11.9-15.9); WHITE BLOOD COUNT 3.2 K/mm3 (4.0-10.0)
[2019-03-27 13:31] LABS: ALBUMIN 3.4 g/dl (3.4-5.0); BILIRUBIN,DIRECT 0.1 mg/dL (0.0-0.2); BILIRUBIN,TOTAL 0.2 mg/dL (0.2-1); BLOOD UREA NITROGEN 7.8 mg/dL (7-18); CALCIUM 9.4 mg/dL (8.5-10.1); CREATININE 0.9 mg/dL (0.55-1.3); MAGNESIUM 2.4 mg/dL (1.8-2.4); POTASSIUM 4.2 mmol/L (3.5-5.1); TOT PROT 6.7 g/dl (6.4-8.2)
[2019-03-27 14:37] LABS: ANISOCYTOSIS 0; MACROCYTOSIS 0; PLATELET ESTIMATE NORMAL
[2019-03-27 17:11] VITALS: TEMP 97.5
[2019-03-27 17:32] VITALS: BP 108/70; PULSE 89
== END 2019-03-27 16:30 | disposition home or self-care (01) ==
LOC: JRADIR 05:58 → J7W 13:21 → JRADIR 16:30
PROVIDERS: ATTEND Internal Medicine Hematology & Oncology
DX: Z51.11 Encounter for antineoplastic chemotherapy (principal); C34.11 Malignant neoplasm of upper lobe, right bronchus or lung
CPT/HCPCS: 36415; 36569; 77001-TC-FY; 80048; 80076; 83735; 85025; 96361; 96375; 96413; C1751; J2469

== ENCOUNTER 2019-03-28 00:15 | Inpatient (IN) | payer BC, OTHER ==
[2019-03-28] MEDS ORDERED: SODIUM CHLORIDE 2,858 ML IV ONE (01:54)
[2019-03-28] MEDS ORDERED: VANCOMYCIN 1,000 MG in DEXTROSE 5%-WATER - 250 ML IVPB ONE (02:13)
[2019-03-28] MEDS ORDERED: ACETAMINOPHEN 1000 MG/100 ML VIAL (NON FORMULARY) IVPB ONE (02:14)
[2019-03-28] MEDS ORDERED: PIPERACILLIN/TAZOB 4.5 GM 4.5 GM in DEXTROSE 5%-WATER 100 ML IVPB ONE ×2 (02:14→14:15)
[2019-03-28 02:18] LABS: HEMATOCRIT 30.5 % (35.4-49); HEMOGLOBIN 10.1 GM/dL (11.7-16.9); LYMPH % 2.4 % (8-40); MCH 30.3 pg (25.7-33.7); MEAN CELL VOLUME 91.9 fl (80-96); MEAN PLT VOLUME 7.3 fl (7.5-11.1); MONO % 5.8 % (3.8-10.2); NEUT % 91.8 % (42.8-82.8); PLATELET COUNT 184 K/MM3 (134-434); RBC 3.33 M/mm3 (4.00-5.60); RDW 14.9 % (11.9-15.9); WHITE BLOOD COUNT 11.5 K/mm3 (4.0-10.0)
--- NOTE | 2019-03-28 02:18 | PDOC ---
Attending Attestation - Resident Resident Name: Willem Marquez - ED Attending Attestation I have performed the following: I have examined & evaluated the patient, The case was reviewed & discussed with the resident, I agree w/resident's findings & plan - HPI HPI: 03/28/19 03:00 see resident hpi - Physicial Exam PE: 03/28/19 03:00 agree with resident exam - Medical Decision Making 03/28/19 03:00 63-year-old male with fever cough currently on chemotherapy for primary lung cancer X-ray consistent with a large right infiltrate/pleural effusion Plan for broad antibiotic coverage, sepsis evaluation and admission to medical service
--- NOTE | 2019-03-28 02:19 | PDOC ---
History of Present Illness - General Chief Complaint: Shortness of Breath Stated Complaint: S.O.B. Time Seen by Provider: 03/28/19 01:54 History Source: Patient Exam Limitations: No Limitations - History of Present Illness Initial Comments: Leoncio Reina is a 63 yo M w a pmh of HTN, HLD, Lung CA on chemo via PICC ( squamous cell carcinoma (s/p carbo/taxol therapy)), COPD on 3L home O2, LISA, PE on Lovenox, atrial fibrillation, SVC syndrome s/p stent placement who presents to the [facility] er with fevers for the past 3 days, a cough, and shortness of breath. Patient endorses non-stop hot and cold flashes as well as chills and rigors. Patient is receiving chemotherapy and had chemo yesterday. Onc: Dr. Hathaway PCP: Makenna Carey: Adis Past History - Past Medical History Allergies/Adverse Reactions: Allergies Allergy/AdvReac Type Severity Reaction Status Date / Time No Known Allergies Allergy Verified 03/28/19 00:44 Home Medications: Ambulatory Orders Albuterol Sulfate [Proventil HFA Inhaler -] 1 - 2 inh PO QID 02/22/18 Acetaminophen [Tylenol .Regular Strength -] 650 mg PO Q6H PRN tablet 04/29/18 Sotalol HCl [Betapace -] 80 mg PO BID tablet 04/29/18 Tiotropium [place] [Spiriva Respimat] 2 puff IH DAILY inhaler 04/29/18 Diltiazem Cd [Cardizem Cd -] 120 mg PO DAILY #30 cap.cd.24h 05/05/18 Enoxaparin [Lovenox -] 90 mg SQ BID #60 disp.syrin 05/05/18 Oxycodone HCl 10 mg PO Q4H PRN 08/09/18 Hydrocortisone 2.5% Lotion [Hytone 2.5% Lotion -] 1 applic TP TID PRN #90 bottle 08/15/18 Ondansetron HCl [Zofran] 8 mg PO BID 11/24/18 Morphine *Sr* [Ms Contin -] 30 mg PO Q12H 11/25/18 Anemia: No Asthma: No Cancer: Yes (LUNG) Cardiac Disorders: (Yes; PAROXYSMAL AFIB, SVC SYNDROME, S/P THROMBOLYSIS AND STENTING) COPD: Yes HTN: Yes - Surgical History Abdominal Surgery: Yes (hernia) Cholecystectomy: Yes - Immunization History Immunization Up to Date: No - Suicide/Smoking/Psychosocial Hx Smoking History: Never smoked Have you smoked in the past 12 months: No Number of Cigarettes Smoked Daily: 5 If you are a former smoker, when did you quit?: 2018 Cigars Per Day: 10 'Breaking Loose' booklet given: 04/07/18 Hx Alcohol Use: No Drug/Substance Use Hx: No Substance Use Type: Marijuana Hx Substance Use Treatment: No Review of Systems - Review of Systems Able to Perform ROS?: Yes Comments:: CONSTITUTIONAL: Present: Fevers, chills, fatigue EYES: Absent: visual changes ENT: Absent: ear pain, no sore throat CARDIOVASCULAR: Absent: chest pain, no palpitations RESPIRATORY: Present: cough, SOB GI: Absent: abdominal pain, no nausea, no vomiting, no constipation, no diarrhea GENITOURINARY: Absent: dysuria, no frequency, no hematuria MUSKULOSKELETAL: Absent: back pain, no arthralgia, no myalgia SKIN: Absent: rash NEURO: Absent: headache *Physical Exam - Vital Signs Last Vital Signs Temp Pulse Resp BP Pulse Ox 101.4 F H 104 H 22 H 103/71 97 03/28/19 02:17 03/28/19 02:17 03/28/19 00:20 03/28/19 00:20 03/28/19 02:17 - Physical Exam Comments: GENERAL: Patient is profusely diaphoretic. Patient is pale appearing. No apparent distress. HEENT: Normocephalic, atraumatic. PERRL, EOM intact. CARDIOVASCULAR: Tachycardic rate. Normal S1, S2. Regular rhythm. PULMONARY: The right lower lung field has minimal air flow. there are crackles and wheezes in the right mid lung field. The left lungs sounds normal. ABDOMEN: Soft, non-distended, non-tender. EXTREMITIES: Normal ROM in all four extremities. No gross deformities. SKIN: Warm, diaphoretic. No rash NEUROLOGICAL: No focal neurological deficits. ED Treatment Course - LABORATORY CBC & Chemistry Diagram: 03/28/19 02:00 03/28/19 02:00 - RADIOLOGY Radiology Studies Ordered: Category Date Time Status CHEST X-RAY PORTABLE* [RAD] Stat Radiology 03/28/19 01:54 Taken Medical Decision Making - Medical Decision Making Leoncio Reina is a 63 yo M w a pmh of HTN, HLD, Lung CA on chemo via PICC ( squamous cell carcinoma (s/p carbo/taxol therapy)), COPD on 3L home O2, LISA, PE on Lovenox, atrial fibrillation, SVC syndrome s/p stent placement who presents to the [facility] er with fevers for the past 3 days, a cough, and shortness of breath. Patient endorses non-stop hot and cold flashes as well as chills and rigors. Patient is receiving chemotherapy and had chemo yesterday. Vital Signs Temp Pulse Resp BP Pulse Ox 101.4 F H 104 H 22 H 103/71 97 03/28/19 02:17 03/28/19 02:17 03/28/19 00:20 03/28/19 00:20 03/28/19 02:17 MDM: Patient presents to ER with a fever, SOB, productive cough, tachycardia and with what appears to be a superimposed PNA on top of the patient's lung cancer. Plan in ER: Septic workup, Vanc/Zosyn, offirmev, IV hydration, admit to hospital. Disposition: Admit to hospital. *DC/Admit/Observation/Transfer Diagnosis at time of Disposition: SOB (shortness of breath) Sepsis Qualifiers: Sepsis type: sepsis due to unspecified organism Sepsis acute organ dysfunction status: without acute organ dysfunction Qualified Code(s): A41.9 - Sepsis, unspecified organism PNA (pneumonia) Qualifiers: Pneumonia type: due to unspecified organism Laterality: right Lung location: middle lobe of lung Qualified Code(s): J18.1 - Lobar pneumonia, unspecified organism - Discharge Dispostion Condition at time of disposition: Fair Decision to Admit order: Yes - Referrals Referrals: Pa Arceo MD, MD [Primary Care Provider] - - Patient Instructions - Post Discharge Activity
[2019-03-28] MEDS ORDERED: PIPERACILLIN/TAZOB 4.5 GM 4.5 GM/100 ML BAG IVPB ONE (02:21)
[2019-03-28] MEDS ORDERED: ACETAMINOPHEN INJECTION 100 ML IVPB ONE (02:21)
[2019-03-28] MEDS ORDERED: VANCOMYCIN 1 GRAM (PRE-DOCKED) 1,000 MG/250 ML BAG IVPB ONE (02:22)
[2019-03-28 02:26] LABS: VENOUS PC02 40.2 mmHg (38-52); VENOUS PH 7.4 (7.31-7.41); VENOUS PO2 58.7 mmHg (28-48)
[2019-03-28 02:47] LABS: INR 1.23 (0.83-1.09); PROTHROMBIN TIME (PATIENT) 14.6 SEC (9.7-13.0)
[2019-03-28 02:48] LABS: ALBUMIN 3.2 g/dl (3.4-5.0); BILIRUBIN,TOTAL 0.3 mg/dL (0.2-1); CALCIUM 8.4 mg/dL (8.5-10.1); CREATININE 1.1 mg/dL (0.55-1.3); POTASSIUM 4.2 mmol/L (3.5-5.1); TOT PROT 6.4 g/dl (6.4-8.2)
[2019-03-28 06:10] LABS: URINE APPEARANCE CLOUDY; URINE BILIRUBIN NEGATIVE (NEGATIVE); URINE COLOR YELLOW; URINE GLUCOSE (UA) NEGATIVE (NEGATIVE); URINE KETONE TRACE (NEGATIVE); URINE LEUK ESTERASE NEGATIVE (NEGATIVE); URINE NITRITE NEGATIVE (NEGATIVE); URINE PROTEIN NEGATIVE (NEGATIVE); URINE UROBILINOGEN 0.2 mg/dL (0.2-1.0)
[2019-03-28 06:52] LABS: ANISOCYTOSIS 2+; MACROCYTOSIS 0; PLATELET ESTIMATE NORMAL
--- NOTE | 2019-03-28 10:58 | EKG ---
Test Reason : Blood Pressure : / mmHG Vent. Rate : 117 BPM Atrial Rate : 117 BPM P-R Int : 178 ms QRS Dur : 068 ms QT Int : 308 ms P-R-T Axes : 049 -02 023 degrees QTc Int : 429 ms SINUS TACHYCARDIA CANNOT RULE OUT ANTERIOR INFARCT , AGE UNDETERMINED ABNORMAL ECG WHEN COMPARED WITH ECG OF 18-DEC-2018 21:33, NO SIGNIFICANT CHANGE WAS FOUND Confirmed by Niall Luu ([id number]) on 03/28/2019 10:57:27 AM Referred By: Confirmed By:Niall Luu
[2019-03-28] MEDS ORDERED: morphine SO4 SUSTAINED ACTING 30 MG TABLET.SA PO SCH (11:00)
[2019-03-28] MEDS: SODIUM CHLORIDE 1,000 ML IV SCH ×2 (11:40→14:36)
[2019-03-28] MEDS ORDERED: GABAPENTIN 100 MG CAPSULE (FP) ONE (11:48)
[2019-03-28] MEDS ORDERED: dilTIAZem HCL 60 MG TABLET (FP) ONE (11:48)
[2019-03-28] MEDS: ENOXAPARIN NA (PORCINE) 100 MG/1 ML DISP.SYRIN SQ SCH ×2 (11:50→21:03)
[2019-03-28] MEDS: GABAPENTIN 300 MG CAPSULE (FP) PO SCH ×2 (11:50→21:06)
[2019-03-28] MEDS: PANTOPRAZOLE 40 MG TABLET (FP) PO SCH (11:50)
[2019-03-28] MEDS ORDERED: ACETAMINOPHEN 325 MG TABLET (FP) ONE (12:06)
[2019-03-28] MEDS: ACETAMINOPHEN 325 MG TABLET (FP) PO PRN ×2 (12:09→21:05)
[2019-03-28] MEDS: SOTALOL HCL 80 MG TABLET (FP) PO SCH ×2 (12:30→21:12)
--- NOTE | 2019-03-28 12:35 | PN ---
Teaching Attending Note Name of Resident: Anny Wilder ATTENDING PHYSICIAN STATEMENT I saw and evaluated the patient. I reviewed the resident's note and discussed the case with the resident. I agree with the resident's findings and plan as documented. PULMONARY IMP FEVER LIKELY PNEUMONIA ?POST-OBSTRUCTIVE LUNG CA SQUAMOUS CELL ON CHEMO ADVANCED COPD WITH CHRONIC HYPOXEMIC RESPIRATORY FAILURE PULMONARY HTN H/O SVC SYSNDROME S/P STENT LISA HTN HLD AFIB ELEVATED LACTATE PLAN ABX CULTURES INHALED BRONCHODILATORS SUPPLEMENTAL O2 AC CHEST CT MONITOR LYTES,CBC TREND LACTATE DR ABRAMS Problem List - Problems (1) Pneumonia Code(s): J18.9 - PNEUMONIA, UNSPECIFIED ORGANISM Qualifiers: Pneumonia type: due to unspecified organism Laterality: right Lung location: middle lobe of lung Qualified Code(s): J18.1 - Lobar pneumonia, unspecified organism (2) Sepsis Code(s): A41.9 - SEPSIS, UNSPECIFIED ORGANISM Qualifiers: Sepsis type: sepsis due to unspecified organism Sepsis acute organ dysfunction status: without acute organ dysfunction Qualified Code(s): A41.9 - Sepsis, unspecified organism (3) Shortness of breath Code(s): R06.02 - SHORTNESS OF BREATH (4) Afib Code(s): I48.91 - UNSPECIFIED ATRIAL FIBRILLATION (5) Anemia Code(s): D64.9 - ANEMIA, UNSPECIFIED Qualifiers: Anemia type: unspecified type Qualified Code(s): D64.9 - Anemia, unspecified (6) Anticoagulant long-term use Code(s): Z79.01 - BAR ASSISTANT (CURRENT) USE OF 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 (7) HTN (hypertension) Code(s): I10 - ESSENTIAL (PRIMARY) HYPERTENSION (8) Lung cancer Code(s): C34.90 - MALIGNANT NEOPLASM OF UNSP PART OF UNSP BRONCHUS OR LUNG Qualifiers: Laterality: right Lung location: upper lobe of lung Qualified Code(s): C34.11 - Malignant neoplasm of upper lobe, right bronchus or lung (9) Squamous cell lung cancer Code(s): C34.90 - MALIGNANT NEOPLASM OF UNSP PART OF UNSP BRONCHUS OR LUNG
--- NOTE | 2019-03-28 13:44 | CONSULT ---
Consultation: REQUESTING PROVIDER: CONSULT REQUEST: Hematology/Oncology consult We have been asked to medically evaluate this patient for fever while on Chemo. HISTORY OF PRESENT ILLNESS: The patient is a 63 year old male with a past medical history of HTN, HLD, Squamous cell lung cancer currently on chemo (carbo/taxol) via PICC (last infusion yesterday), COPD on 3L home o2, afib, PE on Lovenox and SVC syndrome s/ p stenting who comes into the ED c/o chills and fevers over the past 4 days. Patient states that on Wednesday, the patient began to experience subjective fevers and chills. These symptoms became progressively worse over the next few days and became associated with cough and shortness of breath. Yesterday evening , the patient again had fevers and chills. His measured his temperature orally and found it to be 103. At this time, the patient presented to the emergency department for evaluation. While in the ED, the patient was found to be febrile to 101.4 with an elevated WBC count to 11.5. A chest X-ray shows an infiltrate on the right. Blood cultures and urine cultures were sent. The patient was treated with one dose of both vancomycin 1g and Zosyn 4.5 grams. On evaluation, the patient was found sitting up in bed in NAD. He endorses slight SOB, but states that it has improved since arriving in the ED. The patient also endorses a dull LUQ pain which is nonradiating and has been present since his fevers started on Wednesday. Patient denies feeling feverish at the time of interview. REVIEW OF SYSTEMS: CONSTITUTIONAL: Absent: generalized weakness, loss of appetite, weight change HEENT: Absent: rhinorrhea, nasal congestion, throat pain, throat swelling, difficulty swallowing, mouth swelling, ear pain, eye pain, visual changes CARDIOVASCULAR: Absent: chest pain, syncope, palpitations, irregular heart rate, lightheadedness , peripheral edema RESPIRATORY: Absent: orthopnea, wheezing, stridor, hemoptysis GASTROINTESTINAL: Absent: abdominal distension, nausea, vomiting, diarrhea, constipation, melena, hematochezia GENITOURINARY: Absent: dysuria, frequency, urgency, hesitancy, hematuria, flank pain, genital pain MUSCULOSKELETAL: Absent: myalgia, arthralgia, joint swelling, back pain, neck pain SKIN: Absent: rash, itching, pallor HEMATOLOGIC/IMMUNOLOGIC: Absent: easy bleeding, easy bruising, lymphadenopathy, frequent infections ENDOCRINE: Absent: unexplained weight gain, unexplained weight loss, heat intolerance, cold intolerance NEUROLOGIC: Absent: headache, focal weakness or paresthesias, dizziness, unsteady gait, seizure, mental status changes, bladder or bowel incontinence PHYSICAL EXAMINATION Vital Signs - 24 hr 03/28/19 03/28/19 03/28/19 00:20 02:13 02:17 Temperature 100.3 F H 101.4 F H Pulse Rate 125 H 97 H 104 H Pulse Rate [ Apical] Respiratory 22 H Rate Blood Pressure 103/71 Blood Pressure [Right Arm] O2 Sat by Pulse 93 L 98 97 Oximetry (%) 03/28/19 03/28/19 03/28/19 03:23 07:01 08:00 Temperature 99.8 F H 97.7 F 97.7 F Pulse Rate Pulse Rate [ 90 86 89 Apical] Respiratory 18 20 22 H Rate Blood Pressure Blood Pressure 99/61 103/77 102/77 [Right Arm] O2 Sat by Pulse 97 97 100 Oximetry (%) 03/28/19 03/28/19 08:23 13:25 Temperature 97.6 F Pulse Rate 89 Pulse Rate [ 74 Apical] Respiratory 24 H Rate Blood Pressure Blood Pressure 97/70 [Right Arm] O2 Sat by Pulse 100 100 Oximetry (%) GENERAL: Awake, alert, and fully oriented, in no acute distress. HEAD: Normal with no signs of trauma. EYES: Pupils equal, round and reactive to light, extraocular movements intact, sclera anicteric, conjunctiva clear. No lid lag. EARS, NOSE, THROAT: Ears normal, nares patent, oropharynx clear without exudates. Moist mucous membranes. LUNGS: Decreased breath sounds on the right. No accessory muscle use. HEART: Regular rate and rhythm, normal S1 and S2 without murmur, rub or gallop. BREASTS: No masses seen or felt. ABDOMEN: Soft, not distended, normoactive bowel sounds. There is tenderness to palpation in the RUQ. Spleen tip not felt. No dullness to percussion over the spleen. LOWER EXTREMITIES: 2+ pulses, warm, well-perfused. No calf tenderness. No peripheral edema. NEUROLOGICAL: Cranial nerves II-XII intact. Normal speech. SKIN: Warm, dry, normal turgor, no rashes or lesions noted. : testicles small. No masses felt in scrotum. There is a nodule on the left side of the penis in the proximal 1/3 of the shaft. It is tender to palption and mobile, measuring approx. 1cm. It is not erythematous and not warm. There is no inguinal lymphadenopathy. Laboratory Results - last 24 hr 03/28/19 03/28/19 03/28/19 02:00 02:00 02:00 WBC 11.5 H RBC 3.33 L Hgb 10.1 L Hct 30.5 L MCV 91.9 MCH 30.3 MCHC 33.0 RDW 14.9 Plt Count 184 MPV 7.3 L Absolute Neuts (auto) 10.6 H Neutrophils % 91.8 H D Neutrophils % (Manual) 74.0 Band Neutrophils % 20.0 Lymphocytes % 2.4 L D Lymphocytes % (Manual) 2.0 L D Monocytes % 5.8 Monocytes % (Manual) 2 L Eosinophils % 0.0 D Eosinophils % (Manual) 0.0 D Basophils % 0.0 Basophils % (Manual) 0.0 Myelocytes % (Man) 0 D Promyelocytes % (Man) 0 Blast Cells % (Manual) 0 Nucleated RBC % 0 Metamyelocytes 1 D Hypochromia 0 Platelet Estimate Normal Polychromasia 0 Poikilocytosis 1+ Anisocytosis 2+ Microcytosis 1+ Macrocytosis 0 PT with INR INR PTT (Actin FS) 37.6 H VBG pH POC VBG pCO2 POC VBG pO2 VBG HCO3 VBG O2 Sat (Wang) VBG Base Excess Sodium Potassium Chloride Carbon Dioxide Anion Gap BUN Creatinine Est GFR (CKD-EPI)AfAm Est GFR (CKD-EPI)NonAf Random Glucose Lactic Acid Calcium Total Bilirubin AST ALT Alkaline Phosphatase Creatine Kinase CK-MB (CK-2) Troponin I < 0.02 Total Protein Albumin Urine Color Urine Appearance Urine pH Ur Specific [place] Urine Protein Urine Glucose (UA) Urine Ketones Urine Blood Urine Nitrite Urine Bilirubin Urine Urobilinogen Ur Leukocyte Esterase Blood Type Antibody Screen 03/28/19 03/28/19 03/28/19 02:00 02:00 02:00 WBC RBC Hgb Hct MCV MCH MCHC RDW Plt Count MPV Absolute Neuts (auto) Neutrophils % Neutrophils % (Manual) Band Neutrophils % Lymphocytes % Lymphocytes % (Manual) Monocytes % Monocytes % (Manual) Eosinophils % Eosinophils % (Manual) Basophils % Basophils % (Manual) Myelocytes % (Man) Promyelocytes % (Man) Blast Cells % (Manual) Nucleated RBC % Metamyelocytes Hypochromia Platelet Estimate Polychromasia Poikilocytosis Anisocytosis Microcytosis Macrocytosis PT with INR INR PTT (Actin FS) VBG pH POC VBG pCO2 POC VBG pO2 VBG HCO3 VBG O2 Sat (Wang) VBG Base Excess Sodium 139 Potassium 4.2 Chloride 104 Carbon Dioxide 25 Anion Gap 11 BUN 13.0 Creatinine 1.1 Est GFR (CKD-EPI)AfAm 82.37 Est GFR (CKD-EPI)NonAf 71.07 Random Glucose 150 H Lactic Acid Calcium 8.4 L Total Bilirubin 0.3 AST 31 ALT 65 H Alkaline Phosphatase 54 Creatine Kinase 39 CK-MB (CK-2) < 1.0 Troponin I Total Protein 6.4 Albumin 3.2 L Urine Color Urine Appearance Urine pH Ur Specific [place] Urine Protein Urine Glucose (UA) Urine Ketones Urine Blood Urine Nitrite Urine Bilirubin Urine Urobilinogen Ur Leukocyte Esterase Blood Type Antibody Screen 03/28/19 03/28/19 03/28/19 02:00 02:00 02:00 WBC RBC Hgb Hct MCV MCH MCHC RDW Plt Count MPV Absolute Neuts (auto) Neutrophils % Neutrophils % (Manual) Band Neutrophils % Lymphocytes % Lymphocytes % (Manual) Monocytes % Monocytes % (Manual) Eosinophils % Eosinophils % (Manual) Basophils % Basophils % (Manual) Myelocytes % (Man) Promyelocytes % (Man) Blast Cells % (Manual) Nucleated RBC % Metamyelocytes Hypochromia Platelet Estimate Polychromasia Poikilocytosis Anisocytosis Microcytosis Macrocytosis PT with INR 14.60 H INR 1.23 H PTT (Actin FS) VBG pH POC VBG pCO2 POC VBG pO2 VBG HCO3 VBG O2 Sat (Wang) VBG Base Excess Sodium Potassium Chloride Carbon Dioxide Anion Gap BUN Creatinine Est GFR (CKD-EPI)AfAm Est GFR (CKD-EPI)NonAf Random Glucose Lactic Acid 2.2 H* Calcium Total Bilirubin AST ALT Alkaline Phosphatase Creatine Kinase CK-MB (CK-2) Troponin I Total Protein Albumin Urine Color Urine Appearance Urine pH Ur Specific [place] Urine Protein Urine Glucose (UA) Urine Ketones Urine Blood Urine Nitrite Urine Bilirubin Urine Urobilinogen Ur Leukocyte Esterase Blood Type O POSITIVE Antibody Screen Negative 03/28/19 03/28/19 03/28/19 02:00 05:00 05:20 WBC RBC Hgb Hct MCV MCH MCHC RDW Plt Count MPV Absolute Neuts (auto) Neutrophils % Neutrophils % (Manual) Band Neutrophils % Lymphocytes % Lymphocytes % (Manual) Monocytes % Monocytes % (Manual) Eosinophils % Eosinophils % (Manual) Basophils % Basophils % (Manual) Myelocytes % (Man) Promyelocytes % (Man) Blast Cells % (Manual) Nucleated RBC % Metamyelocytes Hypochromia Platelet Estimate Polychromasia Poikilocytosis Anisocytosis Microcytosis Macrocytosis PT with INR INR PTT (Actin FS) VBG pH 7.40 POC VBG pCO2 40.2 POC VBG pO2 58.7 H VBG HCO3 24.6 VBG O2 Sat (Wang) 89.3 H VBG Base Excess 0.4 Sodium Potassium Chloride Carbon Dioxide Anion Gap BUN Creatinine Est GFR (CKD-EPI)AfAm Est GFR (CKD-EPI)NonAf Random Glucose Lactic Acid 2.2 H* Calcium Total Bilirubin AST ALT Alkaline Phosphatase Creatine Kinase CK-MB (CK-2) Troponin I Total Protein Albumin Urine Color Yellow Urine Appearance Cloudy Urine pH 5.0 Ur Specific [place] 1.027 Urine Protein Negative Urine Glucose (UA) Negative Urine Ketones Trace H Urine Blood Negative Urine Nitrite Negative Urine Bilirubin Negative Urine Urobilinogen 0.2 Ur Leukocyte Esterase Negative Blood Type Antibody Screen Active Medications Generic Name Dose Route Start Last Admin Trade Name Freq PRN Reason Stop Dose Admin Acetaminophen 650 mg 03/28/19 11:00 03/28/19 12:09 Tylenol - PO 650 mg Q4H PRN Administration PAIN OR FEVER Albuterol Sulfate 1 amp 03/28/19 10:59 Ventolin 0.083% Nebulizer Soln - NEB Q4H PRN SHORT OF BREATH/WHEEZING Diltiazem HCl 120 mg 03/28/19 11:00 03/28/19 11:50 Cardizem Cd - PO 120 mg DAILY ALONDRA Administration Enoxaparin Sodium 100 mg 03/28/19 11:00 03/28/19 11:50 Lovenox - SQ 100 mg BID ALONDRA Administration Ergocalciferol 50,000 unit 03/28/19 11:00 Drisdol - PO WEEKLY ALONDRA Gabapentin 300 mg 03/28/19 11:00 03/28/19 11:50 Neurontin - PO 300 mg BID ALONDRA Administration Sodium Chloride 1,000 mls @ 75 mls/hr 03/28/19 11:15 03/28/19 11:40 Normal Saline - IV 75 mls/hr ASDIR ALONDRA Administration Morphine Sulfate 30 mg 03/28/19 12:26 Ms Contin - PO BID ALONDRA Ondansetron HCl 8 mg 03/28/19 14:00 Zofran - PO TID ALONDRA Oxycodone HCl 30 mg 03/28/19 10:55 Roxicodone - PO Q6H PRN PAIN LEVEL 6-10 Pantoprazole Sodium 40 mg 03/28/19 11:00 03/28/19 11:50 Protonix - PO 40 mg DAILY ALONDRA Administration Rosuvastatin Calcium 40 mg 03/28/19 22:00 Crestor - PO HS ALONDRA Sotalol HCl 80 mg 03/28/19 11:00 03/28/19 12:30 Betapace - PO 80 mg BID ALONDRA Administration Tiotropium [place]/Olodaterol 1 puff 03/28/19 22:00 Stiolto Respimat Inhal [place] IH BID [facility] ASSESSMENT/PLAN: The patient is a 63 year old male with a past medical history of HTN, HLD, Squamous cell lung cancer currently on chemo (carbo/taxol) via PICC (last infusion yesterday), COPD on 3L home o2, afib, PE on Lovenox and SVC syndrome s/ p stenting who comes into the ED c/o chills and fevers over the past 4 days. In the ED, he was found to be febrile to 101, tachycardic to 104 with a WBC count of 11.5. A chest xray showed a new infiltrate. #Sepsis 2/2 pneumonia, likely post obstructive -The patient had a fever to 101 and tachycardia to 104 in the emergency department. He meets sepsis criteria with these two values. -WBC count of 11.5 is not greatly elevated but is of concern in this patient currently undergoing chemotherapy -The patient received one gram of Vancomycin and 4.5 grams of Zosyn in the emergency department overnight. -Both the Pulmonology and Infectious disease departments have been consulted in the care of this patient. -ANC 12,800; not neutropenic #Squamous cell lung cancer -s/p Carbo/Taxol chemotherapy infusion yesterday -will hold chemo while patient infected -supplemental O2 as required (pt on 3L @ home) Dispo: We will continue to follow the patient. Thank you for this consultative opportunity. Visit type - Emergency Visit Emergency Visit: Yes ED Registration Date: 03/28/19 Care time: The patient presented to the Emergency Department on the above date and was hospitalized for further evaluation of their emergent condition. - New Patient This patient is new to me today: Yes Date on this admission: 03/28/19 - Critical Care Critical Care patient: No ATTENDING PHYSICIAN STATEMENT I saw and evaluated the patient. I reviewed the resident's note and discussed the case with the resident. I agree with the resident's findings and plan as documented. SUBJECTIVE: OBJECTIVE: ASSESSMENT AND PLAN:
[2019-03-28] MEDS ORDERED: DEXTROSE 5%-WATER 100 ML IVPB ONE (14:32)
[2019-03-28] MEDS ORDERED: PIPERACILLIN/TAZOBACTAM 4.5 GM VIAL IVPB ONE (14:32)
[2019-03-28] MEDS: ONDANSETRON 8 MG TABLET (FP) PO SCH ×2 (14:35→21:06)
--- NOTE | 2019-03-28 14:36 | CONSULT ---
Consult Consult Specialty:: Pulmonology Referred by:: Dr Veliz Reason for Consultation:: R squamous cell lung cancer with PNA - History of Present Illness Chief Complaint: Fever-103.9 max History of Present Illness: Pt is a 63 yo M with PMHx of HTN, HLD, Lung cancer, SVT, COPD -3L, PE, Afib presenting from his chemotherapy session yesterday with Dr Hathaway with a 3 day hx of fever. Pt reports fever and chills for 3 days prior to presentation, Tmax 103.9 reported at home, no nausea, no vomiting, no hematochezia, no dysuria, no abdominal pain. Pt is chronically on 3L of oxygen for COPD diagnosed with his lung cancer diagnosis in March 2018. Pt has received radiation and is currently on chemotherapy, last session yesterday, Tuesday 03/27. No recent travels, no rashes, no sick contacts. Pt is able to abmbulate independently with a cane. Currently no change in respiration, able to complete sentences. 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, lives alone Smoked heavily as a teenager to mar 2018 Quit alcohol Drug experimentation in 60s Fhx: Lost 2 brothers to cancer- Lung cancer (smoker), Possible esophageaL cancer - History Source History Provided By: Patient, Medical Record Limitations to Obtaining History: No Limitations - Past Medical History Cardio/Vascular: Yes: AFIB, HTN, Other (smoker with lung mass) Pulmonary: Yes: Cancer (Squamous cell lung cancer), COPD - Past Surgical History Past Surgical History: Yes: Cholecystectomy, Hernia Repair - Alcohol/Substance Use Hx Alcohol Use: No - Smoking History Smoking history: Former smoker (Quit 03/22) Have you smoked in the past 12 months: No Aproximately how many cigarettes per day: 5 If you are a former smoker, when did you quit?: 2018 - Social History Usual Living Arrangement: Alone ADL: Independent History of Recent Travel: No Home Medications - Allergies Allergies/Adverse Reactions: Allergies Allergy/AdvReac Type Severity Reaction Status Date / Time No Known Allergies Allergy Verified 09/24/19 00:44 - Home Medications Home Medications: Ambulatory Orders Albuterol Sulfate [Proventil HFA Inhaler -] 1 - 2 inh PO QID 02/22/18 Sotalol HCl [Betapace -] 80 mg PO BID tablet 04/29/18 Tiotropium [place] [Spiriva Respimat] 2 puff IH DAILY inhaler 04/29/18 Diltiazem Cd [Cardizem Cd -] 120 mg PO DAILY #30 cap.cd.24h 05/05/18 Oxycodone HCl 30 mg PO Q6H PRN 08/09/18 Ondansetron HCl [Zofran] 8 mg PO TID 11/24/18 Morphine *Sr* [Ms Contin -] 30 mg PO Q12H 11/25/18 Enoxaparin [Lovenox -] 100 mg SQ BID 03/28/19 Ergocalciferol (Vitamin D2) [Vitamin D2] 50,000 unit PO WEEKLY 03/28/19 Gabapentin 300 mg PO BID 03/28/19 Pantoprazole Sodium [Protonix] 40 mg PO DAILY 03/28/19 Pravastatin Sodium [Pravachol] 40 mg PO DAILY 03/28/19 Tiotropium Br/Olodaterol HCl [Stiolto Respimat Inhal [place]] 1 puff BID 03/28/19 Zolpidem Tartrate [Ambien] 10 mg PO HS 03/28/19 Review of Systems - Review of Systems Constitutional: reports: Chills, Fever Cardiovascular: reports: Chest Pain (Chronic plueritic chest pain on R- site of cancer), Shortness of Breath (on chronic oxygen 3L) Respiratory: denies: Wheezing Gastrointestinal: reports: Abdominal Pain. denies: Diarrhea, Vomiting Genitourinary: denies: Burning, Dysuria Musculoskeletal: reports: Back Pain (reports discitis) Neurological: denies: Change in LOC, Change in Speech, Confusion, Syncope, Tremors Physical Exam Vital Signs: Vital Signs Temperature 97.6 F 03/28/19 13:25 Pulse Rate 74 03/28/19 13:25 Respiratory Rate 24 H 03/28/19 13:25 Blood Pressure 97/70 03/28/19 13:25 O2 Sat by Pulse Oximetry (%) 100 03/28/19 13:25 Constitutional: Yes: Calm Eyes: Yes: Conjunctiva Clear. No: Sclera Icterus HENT: Yes: Atraumatic Neck: Yes: Supple Cardiovascular: Yes: Regular Rate and Rhythm, S1, S2 Respiratory: Yes: Diminished. No: Rales, Rhonchi, Wheezes Gastrointestinal: Yes: Normal Bowel Sounds, Abdomen, Obese. No: Tenderness Renal/: No: CVA Tenderness - Left, CVA Tenderness - Right Musculoskeletal: No: Joint Stiffness, Joint Swelling Edema: No Neurological: Yes: Alert, Oriented, Cran Nerves II-XII Intact. No: Confusion, Lethargy, Pre-Existing Deficit ...Motor Strength: WNL Psychiatric: Yes: Alert, Oriented Labs: CBC, BMP 03/28/19 02:00 03/28/19 02:00 Imaging - Results X-ray: Report Reviewed (Vascular stent, elevated R isela diaphragm. Congestive changes withy R infiltratewith superimposed mass), Image Reviewed Cat Scan: Report Reviewed (CT chest from feb 2018_R upper lung mass with mediastinal extension and R hilum . R pleural effusion) Assessment/Plan Current Medications Acetaminophen (Tylenol -) 650 mg PO Q4H PRN PRN Reason: PAIN OR FEVER Last Admin: 03/28/19 12:09 Dose: 650 mg Albuterol Sulfate (Ventolin 0.083% Nebulizer Soln -) 1 amp NEB Q4H PRN PRN Reason: SHORT OF BREATH/WHEEZING Diltiazem HCl (Cardizem Cd -) 120 mg PO DAILY [facility] Last Admin: 03/28/19 11:50 Dose: 120 mg Enoxaparin Sodium (Lovenox -) 100 mg SQ BID [facility] Last Admin: 03/28/19 11:50 Dose: 100 mg Ergocalciferol (Drisdol -) 50,000 unit PO WEEKLY [facility] Gabapentin (Neurontin -) 300 mg PO BID [facility] Last Admin: 03/28/19 11:50 Dose: 300 mg Sodium Chloride (Normal Saline -) 1,000 mls @ 75 mls/hr IV ASDIR [facility] Last Admin: 03/28/19 14:36 Dose: 75 mls/hr Morphine Sulfate (Ms Contin -) 30 mg PO BID [facility] Ondansetron HCl (Zofran -) 8 mg PO TID [facility] Last Admin: 03/28/19 14:35 Dose: 8 mg Oxycodone HCl (Roxicodone -) 30 mg PO Q6H PRN PRN Reason: PAIN LEVEL 6-10 Pantoprazole Sodium (Protonix -) 40 mg PO DAILY [facility] Last Admin: 03/28/19 11:50 Dose: 40 mg Rosuvastatin Calcium (Crestor -) 40 mg PO HS [facility] Sotalol HCl (Betapace -) 80 mg PO BID [facility] Last Admin: 03/28/19 12:30 Dose: 80 mg Tiotropium [place]/Olodaterol (Stiolto Respimat Inhal [place]) 1 puff IH BID [facility] Assessment/Plan: Pt is a 63 yo M with PMHx of HTN, HLD, Lung cancer, SVC, COPD -3L, PE, Afib presenting from his chemotherapy session yesterday with Dr Hathaway with a 3 day hx of fever. HTN, HLD, Lung cancer- Squamous cell, on chemotx, last session 03/27/19 Hx of SVC syndrome, COPD -3L, PE, Afib Possible post-obstructive PNA Lactic acidosis Sepsis Plan: Possible post-obstructive PNA, Lung cancer- Squamous cell, on chemotx, last session 03/27/19 Continue albuterol nebs Cont tiotropium/olodaterol Cont broad spectrum AB- per ID No indication for steroids at this time Oxygen as needed Legionella antigen, pneumonia antigen CT chest-to evaluate pleural effusion for tap to R/o parapneumonic effusion w/ empyema Other mx per primary team D/W Dr Danilo Wilder PGY3 Visit type - Emergency Visit Emergency Visit: Yes ED Registration Date: 03/28/19 Care time: The patient presented to the Emergency Department on the above date and was hospitalized for further evaluation of their emergent condition. - New Patient This patient is new to me today: Yes Date on this admission: 03/28/19 - Critical Care Critical Care patient: No ATTENDING PHYSICIAN STATEMENT I saw and evaluated the patient. I reviewed the resident's note and discussed the case with the resident. I agree with the resident's findings and plan as documented. SUBJECTIVE: OBJECTIVE: ASSESSMENT AND PLAN:
--- NOTE | 2019-03-28 15:03 | PN ---
Progress Note (short form) - Note Progress Note: ID CONSULT DICTATED PROBABLE POST OBSTRUCTIVE PNEUMONIA R/O SEPSIS SECONDARY TO PNEUMONIA ACUTE EXACERBATION COPD SQUAMOUS CELL CA LUNG AWAIT C/S EMPIRIC ZOSYN
[2019-03-28 15:35] VITALS: BMI 28.0
--- NOTE | 2019-03-28 15:50 | CONS ---
DATE OF CONSULTATION: DATE OF DICTATION: 03/28/2019 INFECTIOUS DISEASE CONSULTATION HISTORY OF PRESENT ILLNESS: The patient is a 63-year-old male with a history of squamous cell carcinoma on chemotherapy evaluated for pneumonia. The patient has been receiving chemotherapy approximately every 8 days. He last received a dose yesterday. Over the past 2-3 days he has been experiencing increasing shortness of breath as well as dry cough. He also noted fever. He was advised to go to the emergency room for further evaluation and admission. At the present time, he is awake and alert. He is slightly short of breath at rest on nasal cannula, reports dry cough. He denies purulence, sputum production, or hemoptysis. No complaints of chest pain. He denies any ill contacts. He has not been recently hospitalized, however has been coming to the hospital every week for chemotherapy. He has had occasional leukopenia requiring Neupogen. He receives the chemotherapy through a PICC line which is placed and removed at each treatment. Last hospital admission was in August of 2018 after a near syncopal event. 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 ALLERGIES: No known allergies. MEDICATION: Include Tylenol, albuterol, Cardizem, Lovenox, Neurontin, Zofran. SOCIAL HISTORY: Lives at home in the community, former smoker. SYSTEMS REVIEW: Neurologic: No loss of consciousness, seizure activity, focal weakness. Cardiac: Negative for chest pain or palpitations. Respiratory: As per HPI. Gastrointestinal: Negative vomiting or diarrhea. Genitourinary: Negative for urinary tract infection. LABORATORY DATA: White count 11.5, 91 neutrophils, 20 bands, 2 lymphocytes. Hematocrit 30.5, platelets 184, creatinine 1.1. Urinalysis: negative leukocyte esterase, lactic acid 2.2. PHYSICAL EXAMINATION: General: On physical examination, he is awake and responsive. He is slightly short of breath at rest on nasal cannula seated in bed. Vital signs: Temperature 97.6, T-max 101.4, blood pressure 97/70, pulse 74 regular, respirations 20 per minute. HEENT: Sclerae anicteric. Cardiovascular: Heart sounds S1, S2. Lungs: Diminished breath sounds right lung field. Bronchial breath sounds left lung field. Abdomen: Soft, obese, nontender. Extremities: Negative for edema. Negative Homans sign. IMPRESSION: 1. Probably post obstructive pneumonia. 2. Rule out sepsis secondary to pneumonia. 3. Squamous cell carcinoma of the lungs. 4. Acute exacerbation of chronic obstructive pulmonary disease. Obtain cultures. Empiric antibiotic coverage for presumed postobstructive pneumonia with Zosyn. Oncology followup. Will follow. Thank you for the kind referral. ISABELLA PLATT M.D. [id number]
[2019-03-28] MEDS ORDERED: PIPERACILLIN/TAZOBACTAM 3.375 GM VIAL IVPB ONE (16:13)
[2019-03-28] MEDS ORDERED: DEXTROSE 5%-WATER - 50 ML IVPB ONE (16:13)
[2019-03-28] MEDS: PIPERACILLIN/TAZOB 3.375 GM 3.375 GM in DEXTROSE 5%-WATER - 50 ML IVPB SCH (17:00)
--- NOTE | 2019-03-28 17:57 | HP ---
Admitting History and Physical - Primary Care Physician PCP: Anika Veliz - Admission Chief Complaint: SOB. PNE. squamous cell lung ca History of Present Illness: Leoncio Reina is a 63 yo M w a pmh of HTN, HLD, Lung CA on chemo via PICC ( squamous cell carcinoma (s/p carbo/taxol therapy)), COPD on 3L home O2, LISA, PE on Lovenox, atrial fibrillation, SVC syndrome s/p stent placement who presents to the [facility] er with fevers for the past 3 days, a cough, and shortness of breath. Patient endorses non-stop hot and cold flashes as well as chills and rigors. Patient is receiving chemotherapy and had chemo yesterday. History Source: Patient Limitations to Obtaining History: No Limitations - Past Medical History Cardiovascular: Yes: AFIB, HTN, Other (smoker with lung mass) Pulmonary: Yes: Cancer (Squamous cell lung cancer), COPD - Past Surgical History Past Surgical History: Yes: Cholecystectomy, Hernia Repair - Smoking History Smoking history: Former smoker Have you smoked in the past 12 months: No Aproximately how many cigarettes per day: 5 If you are a former smoker, when did you quit?: 2018 - Alcohol/Substance Use Hx Alcohol Use: No - Social History ADL: Independent History of Recent Travel: No Home Medications - Allergies Allergies/Adverse Reactions: Allergies Allergy/AdvReac Type Severity Reaction Status Date / Time No Known Allergies Allergy Verified 03/28/19 00:44 - Home Medications Home Medications: Ambulatory Orders Albuterol Sulfate [Proventil HFA Inhaler -] 1 - 2 inh PO QID 02/22/18 Sotalol HCl [Betapace -] 80 mg PO BID tablet 04/29/18 Tiotropium [place] [Spiriva Respimat] 2 puff IH DAILY inhaler 04/29/18 Diltiazem Cd [Cardizem Cd -] 120 mg PO DAILY #30 cap.cd.24h 05/05/18 Oxycodone HCl 30 mg PO Q6H PRN 08/09/18 Ondansetron HCl [Zofran] 8 mg PO TID 11/24/18 Morphine *Sr* [Ms Contin -] 30 mg PO Q12H 11/25/18 Enoxaparin [Lovenox -] 100 mg SQ BID 03/28/19 Ergocalciferol (Vitamin D2) [Vitamin D2] 50,000 unit PO WEEKLY 03/28/19 Gabapentin 300 mg PO BID 03/28/19 Pantoprazole Sodium [Protonix] 40 mg PO DAILY 03/28/19 Pravastatin Sodium [Pravachol] 40 mg PO DAILY 03/28/19 Tiotropium Br/Olodaterol HCl [Stiolto Respimat Inhal [place]] 1 puff BID 03/28/19 Zolpidem Tartrate [Ambien] 10 mg PO HS 03/28/19 Review of Systems - Review of Systems Constitutional: reports: Weakness Eyes: reports: No Symptoms HENT: reports: No Symptoms Neck: reports: No Symptoms Cardiovascular: reports: Shortness of Breath Respiratory: reports: SOB, SOB on Exertion Gastrointestinal: reports: No Symptoms Genitourinary: reports: No Symptoms Breasts: reports: No Symptoms Reported Musculoskeletal: reports: No Symptoms Integumentary: reports: No Symptoms Neurological: reports: No Symptoms Endocrine: reports: No Symptoms Hematology/Lymphatic: reports: No Symptoms Psychiatric: reports: No Symptoms Physical Examination Vital Signs: Vital Signs Temperature 97.4 F L 03/28/19 15:24 Pulse Rate 82 03/28/19 15:24 Respiratory Rate 20 03/28/19 15:24 Blood Pressure 102/65 03/28/19 15:24 O2 Sat by Pulse Oximetry (%) 96 03/28/19 15:24 Constitutional: Yes: Well Nourished, No Distress, Calm Cardiovascular: Yes: Regular Rate and Rhythm Respiratory: Yes: On Nasal O2, Rales (BLL) Gastrointestinal: Yes: Normal Bowel Sounds, Soft, Abdomen, Obese Renal/: Yes: WNL Musculoskeletal: Yes: WNL Extremities: Yes: WNL Edema: No Peripheral Pulses WNL: Yes Neurological: Yes: Alert, Oriented Psychiatric: Yes: Alert, Oriented Labs: CBC, BMP 03/28/19 02:00 03/28/19 02:00 Imaging - Results Chest X-ray: Report Reviewed Problem List - Problems (1) Pneumonia Assessment/Plan: -Pulmonary consult -ID consult -IV abx -Bronchodilators -Nasal O 2 PRN to keep SpO>90% -Acetaminophen for fever -Febrile upon admission, afebrile now -+leukocytosis -Cultures pending -Urine legionella pending Code(s): J18.9 - PNEUMONIA, UNSPECIFIED ORGANISM Qualifiers: Pneumonia type: due to unspecified organism Laterality: right Lung location: middle lobe of lung Qualified Code(s): J18.1 - Lobar pneumonia, unspecified organism (2) Shortness of breath Code(s): R06.02 - SHORTNESS OF BREATH (3) Afib Assessment/Plan: -rate controlled -On Lovenox (also for hx of DVT) Code(s): I48.91 - UNSPECIFIED ATRIAL FIBRILLATION (4) Anemia Assessment/Plan: -Chronically anemic -Monitor H/H -Recheck iron profile+ B12+ Thyroid profile+ Stool OB Code(s): D64.9 - ANEMIA, UNSPECIFIED Qualifiers: Anemia type: unspecified type Qualified Code(s): D64.9 - Anemia, unspecified (5) Sepsis Assessment/Plan: -Pulmonary consult -ID consult -IV abx -Bronchodilators -Nasal O 2 PRN to keep SpO>90% -Acetaminophen for fever -Febrile upon admission, afebrile now -+leukocytosis -Cultures pending -Urine legionella pending -Continue IVF for now -Repeat LA in [place] Code(s): A41.9 - SEPSIS, UNSPECIFIED ORGANISM Qualifiers: Sepsis type: sepsis due to unspecified organism Sepsis acute organ dysfunction status: without acute organ dysfunction Qualified Code(s): A41.9 - Sepsis, unspecified organism (6) Lactic acidosis Code(s): E87.2 - ACIDOSIS (7) Squamous cell lung cancer Assessment/Plan: -Oncology consult Code(s): C34.90 - MALIGNANT NEOPLASM OF UNSP PART OF UNSP BRONCHUS OR LUNG Assessment/Plan see problem list
--- NOTE | 2019-03-28 18:19 | PN ---
Teaching Attending Note Name of Resident: Tavares Persaud ATTENDING PHYSICIAN STATEMENT I saw and evaluated the patient. I reviewed the resident's note and discussed the case with the resident. I agree with the resident's findings and plan as documented. SUBJECTIVE: Patient seen and examined . Seen yesterday with history of fevers x several days to 103 which was treated with ice and cold baths. Discussed importance of notifying us if temps recurred Developed once again fever and chills and came to ER where diagnosis of post obstrucitive pneumonitis was entertained and patient was admitted with new RLL infiltrate. History of SCC of right lung treated with RT and chemotherapy with taxol and carboplatinum. Developed SVC and required stent. Chemotherapy with taxol and carboplatinum continued. Developed reaction to carboplatium and taxol alone continued until patient developed progressive neuropathy. Chemotherapy switched to gemcitibine. Had pulmonary emboli requiring lovenox therapy at initial presentation. Last Vital Signs Temp Pulse Resp BP Pulse Ox 97.4 F L 82 20 102/65 96 03/28/19 15:24 03/28/19 15:24 03/28/19 15:24 03/28/19 15:24 03/28/19 15:24 HEENT: ROSARIO, EOM Intact Oropharynx: No thrush, No mucositis Neck: Supple Nodes: Without adenopathy Breasts: Without masses Cor: RSR, No murmurs, No gallops Lungs: Diminished breath sounds bilaterally Abd: Soft, Normal bowel sounds, No organomegaly Ext:No significant edema Skin: No rashes, Integument intact CBC, BMP 03/28/19 02:00 03/28/19 02:00 Current Medications Generic Name Dose Route Start Last Admin Trade Name Freq PRN Reason Stop Dose Admin Acetaminophen 650 mg 03/28/19 11:00 03/28/19 12:09 Tylenol - PO 650 mg Q4H PRN Administration PAIN OR FEVER Albuterol Sulfate 1 amp 03/28/19 10:59 Ventolin 0.083% Nebulizer Soln - NEB Q4H PRN SHORT OF BREATH/WHEEZING Diltiazem HCl 120 mg 03/28/19 11:00 03/28/19 11:50 Cardizem Cd - PO 120 mg DAILY ALONDRA Administration Enoxaparin Sodium 100 mg 03/28/19 11:00 03/28/19 11:50 Lovenox - SQ 100 mg BID ALONDRA Administration Ergocalciferol 50,000 unit 03/28/19 11:00 Drisdol - PO WEEKLY ALONDRA Gabapentin 300 mg 03/28/19 11:00 03/28/19 11:50 Neurontin - PO 300 mg BID ALONDRA Administration Sodium Chloride 1,000 mls @ 75 mls/hr 03/28/19 11:15 03/28/19 14:36 Normal Saline - IV 75 mls/hr ASDIR ALONDRA Administration Piperacillin Sod/Tazobactam 50 mls @ 100 mls/hr 03/28/19 18:00 03/28/19 17:00 Sod 3.375 gm/ Dextrose IVPB 100 mls/hr Q8H-IV ALONDRA Administration Protocol Morphine Sulfate 30 mg 03/28/19 12:26 Ms Contin - PO BID ALONDRA Ondansetron HCl 8 mg 03/28/19 14:00 03/28/19 14:35 Zofran - PO 8 mg TID ALONDRA Administration Oxycodone HCl 30 mg 03/28/19 10:55 Roxicodone - PO Q6H PRN PAIN LEVEL 6-10 Pantoprazole Sodium 40 mg 03/28/19 11:00 03/28/19 11:50 Protonix - PO 40 mg DAILY ALONDRA Administration Rosuvastatin Calcium 40 mg 03/28/19 22:00 Crestor - PO HS [facility] Sotalol HCl 80 mg 03/28/19 11:00 03/28/19 12:30 Betapace - PO 80 mg BID ALONDRA Administration Tiotropium [place]/Olodaterol 1 puff 03/28/19 22:00 Stiolto Respimat Inhal [place] IH BID [facility] Impression: SCC f lung SVC- s/p stent Post - obstructive pneumonitis Hypoxic respiratory failure chemotherapy COPD HBP HPL Plan: Antibiotics per ID Lovenox O-2. OBJECTIVE: ASSESSMENT AND PLAN:
[2019-03-28] MEDS: ZOLPIDEM TARTRATE 5 MG TABLET PO PRN (21:05)
[2019-03-28] MEDS: oxyCODONE HCL 5 MG TABLET PO PRN (21:07)
[2019-03-28] MEDS: morphine SO4 SUSTAINED ACTING 30 MG TABLET.SA PO SCH (21:07)
[2019-03-28] MEDS: ROSUVASTATIN CA 40 MG TABLET PO SCH (22:12)
[2019-03-28] MEDS: TIOTROPIUM/OLODATEROL HCL (STIOLTO) 4 GM INHALER IH SCH (22:12)
[2019-03-29] MEDS ORDERED: DEXTROSE 5%-WATER - 50 ML IVPB ONE ×3 (01:10→17:08)
[2019-03-29] MEDS ORDERED: PIPERACILLIN/TAZOBACTAM 3.375 GM VIAL IVPB ONE ×3 (01:10→17:08)
[2019-03-29] MEDS: PIPERACILLIN/TAZOB 3.375 GM 3.375 GM in DEXTROSE 5%-WATER - 50 ML IVPB SCH ×3 (01:35→17:49)
[2019-03-29] MEDS: ONDANSETRON 8 MG TABLET (FP) PO SCH ×3 (05:43→21:09)
[2019-03-29 08:11] LABS: BASO % 0.1 % (0-2.0); EOS % 0.1 % (0-4.5); HEMATOCRIT 27.3 % (35.4-49); HEMOGLOBIN 9.2 GM/dL (11.7-16.9); LYMPH % 5.4 % (8-40); MCHC 33.7 g/dl (32.0-35.9); MEAN PLT VOLUME 7.5 fl (7.5-11.1); MONO % 1.5 % (3.8-10.2); NEUT % 92.9 % (42.8-82.8); PLATELET COUNT 150 K/MM3 (134-434); RBC 2.97 M/mm3 (4.00-5.60); RDW 14.9 % (11.9-15.9); WHITE BLOOD COUNT 8.3 K/mm3 (4.0-10.0)
[2019-03-29 08:48] LABS: BILIRUBIN,TOTAL 0.2 mg/dL (0.2-1); BLOOD UREA NITROGEN 10.4 mg/dL (7-18); CALCIUM 8.1 mg/dL (8.5-10.1); CREATININE 0.8 mg/dL (0.55-1.3); POTASSIUM 3.4 mmol/L (3.5-5.1); TOT PROT 6.1 g/dl (6.4-8.2)
[2019-03-29] MEDS: SOTALOL HCL 80 MG TABLET (FP) PO SCH ×2 (09:00→21:08)
[2019-03-29] MEDS: GABAPENTIN 300 MG CAPSULE (FP) PO SCH ×2 (09:00→21:09)
[2019-03-29] MEDS: PANTOPRAZOLE 40 MG TABLET (FP) PO SCH (09:00)
[2019-03-29] MEDS: ENOXAPARIN NA (PORCINE) 100 MG/1 ML DISP.SYRIN SQ SCH ×2 (09:00→21:08)
[2019-03-29] MEDS: morphine SO4 SUSTAINED ACTING 30 MG TABLET.SA PO SCH ×2 (09:01→21:09)
[2019-03-29] MEDS: ACETAMINOPHEN 325 MG TABLET (FP) PO PRN ×3 (09:06→21:07)
--- NOTE | 2019-03-29 09:55 | PN ---
Progress Note, Physician Chief Complaint: AWAKE ALERT IN BED ON 02 NC DENIES CHEST PAIN/SOB/FEVERS +APPETITE +BM - Current Medication List Current Medications: Active Medications Acetaminophen (Tylenol -) 650 mg PO Q4H PRN PRN Reason: PAIN OR FEVER Last Admin: 03/29/19 09:06 Dose: 650 mg Albuterol Sulfate (Ventolin 0.083% Nebulizer Soln -) 1 amp NEB Q4H PRN PRN Reason: SHORT OF BREATH/WHEEZING Diltiazem HCl (Cardizem Cd -) 120 mg PO DAILY [facility] Last Admin: 03/29/19 09:00 Dose: 120 mg Enoxaparin Sodium (Lovenox -) 100 mg SQ BID [facility] Last Admin: 03/29/19 09:00 Dose: 100 mg Ergocalciferol (Drisdol -) 50,000 unit PO WEEKLY [facility] Gabapentin (Neurontin -) 300 mg PO BID [facility] Last Admin: 03/29/19 09:00 Dose: 300 mg Sodium Chloride (Normal Saline -) 1,000 mls @ 75 mls/hr IV ASDIR [facility] Last Admin: 03/28/19 14:36 Dose: 75 mls/hr Piperacillin Sod/Tazobactam (Sod 3.375 gm/ Dextrose) 50 mls @ 100 mls/hr IVPB Q8H-IV ALONDRA; Protocol Last Admin: 03/29/19 01:35 Dose: 100 mls/hr Morphine Sulfate (Ms Contin -) 30 mg PO BID [facility] Last Admin: 03/29/19 09:01 Dose: 30 mg Ondansetron HCl (Zofran -) 8 mg PO TID [facility] Last Admin: 03/29/19 05:43 Dose: 8 mg Oxycodone HCl (Roxicodone -) 30 mg PO Q6H PRN PRN Reason: PAIN LEVEL 6-10 Last Admin: 03/28/19 21:07 Dose: 30 mg Pantoprazole Sodium (Protonix -) 40 mg PO DAILY [facility] Last Admin: 03/29/19 09:00 Dose: 40 mg Potassium Chloride (K-Dur -) 20 meq PO ONCE ONE Stop: 03/29/19 09:53 Rosuvastatin Calcium (Crestor -) 40 mg PO HS [facility] Last Admin: 03/28/19 22:12 Dose: 40 mg Sotalol HCl (Betapace -) 80 mg PO BID [facility] Last Admin: 03/29/19 09:00 Dose: 80 mg Tiotropium [place]/Olodaterol (Stiolto Respimat Inhal [place]) 1 puff IH BID [facility] Last Admin: 03/28/19 22:12 Dose: 1 puff Zolpidem Tartrate (Ambien -) 5 mg PO HS PRN PRN Reason: INSOMNIA Last Admin: 03/28/19 21:05 Dose: 5 mg - Objective Vital Signs: Vital Signs Temperature 98.8 F 03/29/19 09:11 Pulse Rate 99 H 03/29/19 09:11 Respiratory Rate 22 H 03/29/19 09:11 Blood Pressure 108/65 03/29/19 09:11 O2 Sat by Pulse Oximetry (%) 97 03/28/19 21:00 Constitutional: Yes: Mild Distress Cardiovascular: Yes: Regular Rate and Rhythm Respiratory: Yes: Diminished, On Nasal O2 Gastrointestinal: Yes: Soft Genitourinary: Yes: WNL Musculoskeletal: Yes: WNL Edema: No Peripheral Pulses WNL: Yes Integumentary: Yes: WNL Wound/Incision: Yes: Clean/Dry Neurological: Yes: WNL ...Motor Strength: WNL Psychiatric: Yes: WNL Labs: CBC, BMP 03/29/19 07:40 03/29/19 07:40 INR, PTT INR 1.23 (0.83-1.09) H 03/28/19 02:00 Problem List - Problems (1) Lactic acidosis Code(s): E87.2 - ACIDOSIS (2) Pneumonia Code(s): J18.9 - PNEUMONIA, UNSPECIFIED ORGANISM Qualifiers: Pneumonia type: due to unspecified organism Laterality: right Lung location: middle lobe of lung Qualified Code(s): J18.1 - Lobar pneumonia, unspecified organism (3) Sepsis Code(s): A41.9 - SEPSIS, UNSPECIFIED ORGANISM Qualifiers: Sepsis type: sepsis due to unspecified organism Sepsis acute organ dysfunction status: without acute organ dysfunction Qualified Code(s): A41.9 - Sepsis, unspecified organism (4) Shortness of breath Code(s): R06.02 - SHORTNESS OF BREATH (5) Acute respiratory failure Code(s): J96.00 - ACUTE RESPIRATORY FAILURE, UNSP W HYPOXIA OR HYPERCAPNIA Qualifiers: Respiratory failure complication: hypoxia Qualified Code(s): J96.01 - Acute respiratory failure with hypoxia (6) Afib Code(s): I48.91 - UNSPECIFIED ATRIAL FIBRILLATION (7) Anemia Code(s): D64.9 - ANEMIA, UNSPECIFIED Qualifiers: Anemia type: unspecified type Qualified Code(s): D64.9 - Anemia, unspecified (8) COPD (chronic obstructive pulmonary disease) Code(s): J44.9 - CHRONIC OBSTRUCTIVE PULMONARY DISEASE, UNSPECIFIED Qualifiers: COPD type: unspecified COPD Qualified Code(s): J44.9 - Chronic obstructive pulmonary disease, unspecified (9) DVT (deep venous thrombosis) Code(s): I82.409 - ACUTE EMBOLISM AND THOMBOS UNSP DEEP VN UNSP LOWER EXTREMITY Qualifiers: DVT location: upper extremity Affected thrombotic vein of extremity: other upper extremity vein Chronicity: acute Laterality: right Qualified Code(s) : I82.621 - Acute embolism and thrombosis of deep veins of right upper extremity (10) Squamous cell lung cancer Code(s): C34.90 - MALIGNANT NEOPLASM OF UNSP PART OF UNSP BRONCHUS OR LUNG Assessment/Plan IV ABX/02 NC/NEBS FOR TREATMENT PNEUMONIA PULMONARY EVAL H/O DVT ON LOVENOX BID CHEMOTHERAPY AND ONCOLOGY PLAN TO BE D/W DR PARKER PT HEATHER OOB TO CHAIR PAIN CONTROL ADVANCED DIRECTIVES FULL CODE D/W PATIENT
[2019-03-29] MEDS ORDERED: POTASSIUM CHLORIDE TABS 10 MEQ TABLET.ER (FP) PO ONE (10:30)
[2019-03-29] MEDS: TIOTROPIUM/OLODATEROL HCL (STIOLTO) 4 GM INHALER IH SCH ×2 (11:19→22:19)
[2019-03-29] MEDS: oxyCODONE HCL 5 MG TABLET PO PRN ×2 (11:47→22:19)
[2019-03-29 13:03] LABS: PLATELET ESTIMATE ADEQUATE
--- NOTE | 2019-03-29 14:18 | PN ---
Progress Note (short form) - Note Progress Note: PULMONARY Feeling better. Less short of breath. No fevers recorded. Vital Signs Period Temp Pulse Resp BP Sys/Gtz Pulse Ox Last 24 Hr 97.4 F-98.8 F 69-99 20-22 93-111/65-70 96-97 Gen: NAD at rest Heart: RRR Lung: decreased breath sounds at the bases Abd: soft, nontender Ext: no edema CBC, BMP 03/29/19 07:40 03/29/19 07:40 Active Medications Acetaminophen (Tylenol -) 650 mg PO Q4H PRN PRN Reason: PAIN OR FEVER Last Admin: 03/29/19 09:06 Dose: 650 mg Albuterol Sulfate (Ventolin 0.083% Nebulizer Soln -) 1 amp NEB Q4H PRN PRN Reason: SHORT OF BREATH/WHEEZING Diltiazem HCl (Cardizem Cd -) 120 mg PO DAILY [facility] Last Admin: 03/29/19 09:00 Dose: 120 mg Enoxaparin Sodium (Lovenox -) 100 mg SQ BID [facility] Last Admin: 03/29/19 09:00 Dose: 100 mg Ergocalciferol (Drisdol -) 50,000 unit PO WEEKLY [facility] Gabapentin (Neurontin -) 300 mg PO BID [facility] Last Admin: 03/29/19 09:00 Dose: 300 mg Piperacillin Sod/Tazobactam (Sod 3.375 gm/ Dextrose) 50 mls @ 100 mls/hr IVPB Q8H-IV ALONDRA; Protocol Last Admin: 03/29/19 11:19 Dose: 100 mls/hr Morphine Sulfate (Ms Contin -) 30 mg PO BID [facility] Last Admin: 03/29/19 09:01 Dose: 30 mg Ondansetron HCl (Zofran -) 8 mg PO TID [facility] Last Admin: 03/29/19 05:43 Dose: 8 mg Oxycodone HCl (Roxicodone -) 30 mg PO Q6H PRN PRN Reason: PAIN LEVEL 6-10 Last Admin: 03/29/19 11:47 Dose: 30 mg Pantoprazole Sodium (Protonix -) 40 mg PO DAILY [facility] Last Admin: 03/29/19 09:00 Dose: 40 mg Rosuvastatin Calcium (Crestor -) 40 mg PO HS [facility] Last Admin: 03/28/19 22:12 Dose: 40 mg Sotalol HCl (Betapace -) 80 mg PO BID [facility] Last Admin: 03/29/19 09:00 Dose: 80 mg Tiotropium [place]/Olodaterol (Stiolto Respimat Inhal [place]) 1 puff IH BID [facility] Last Admin: 03/29/19 11:19 Dose: 1 puff Zolpidem Tartrate (Ambien -) 5 mg PO HS PRN PRN Reason: INSOMNIA Last Admin: 03/28/19 21:05 Dose: 5 mg A/P r/o Post Obstructive Pneumonia NSCLC on chemo Chronic Hypoxic Respiratory Failure COPD Pulmonary HTN h/o SVC syndrome Paroxysmal Atrial fibrillation Lactic Acidosis HTN Hyperlipidemia LISA - continue antibiotics per ID - f/u cultures - inhaled bronchodilators - O2 to keep SpO2 >90% - rate controlled - continue anticoagulation
[2019-03-29] MEDS ORDERED: PT OWN MED DRAWER 7, Y5N ONE (20:27)
[2019-03-29] MEDS: ROSUVASTATIN CA 40 MG TABLET PO SCH (21:08)
[2019-03-29] MEDS: ZOLPIDEM TARTRATE 5 MG TABLET PO PRN (23:07)
[2019-03-30] MEDS ORDERED: PIPERACILLIN/TAZOBACTAM 3.375 GM VIAL IVPB ONE ×3 (02:32→16:55)
[2019-03-30] MEDS ORDERED: DEXTROSE 5%-WATER - 50 ML IVPB ONE ×3 (02:32→16:55)
[2019-03-30] MEDS: PIPERACILLIN/TAZOB 3.375 GM 3.375 GM in DEXTROSE 5%-WATER - 50 ML IVPB SCH ×3 (02:45→17:02)
[2019-03-30] MEDS: ONDANSETRON 8 MG TABLET (FP) PO SCH ×3 (05:59→21:04)
[2019-03-30] MEDS: ACETAMINOPHEN 325 MG TABLET (FP) PO PRN ×4 (05:59→21:07)
[2019-03-30 08:12] LABS: BLOOD UREA NITROGEN 12.3 mg/dL (7-18); CALCIUM 7.9 mg/dL (8.5-10.1); CREATININE 1.2 mg/dL (0.55-1.3); MAGNESIUM 1.9 mg/dL (1.8-2.4); POTASSIUM 4.1 mmol/L (3.5-5.1)
[2019-03-30 08:35] LABS: HEMATOCRIT 25.5 % (35.4-49); HEMOGLOBIN 8.5 GM/dL (11.7-16.9); MCH 30.9 pg (25.7-33.7); MCHC 33.2 g/dl (32.0-35.9); MEAN PLT VOLUME 7.8 fl (7.5-11.1); PLATELET COUNT 133 K/MM3 (134-434); RBC 2.74 M/mm3 (4.00-5.60); RDW 15.1 % (11.9-15.9)
[2019-03-30] MEDS: morphine SO4 SUSTAINED ACTING 30 MG TABLET.SA PO SCH ×2 (09:34→21:05)
[2019-03-30] MEDS: GABAPENTIN 300 MG CAPSULE (FP) PO SCH ×2 (09:34→21:04)
[2019-03-30] MEDS: PANTOPRAZOLE 40 MG TABLET (FP) PO SCH (09:34)
[2019-03-30] MEDS: SOTALOL HCL 80 MG TABLET (FP) PO SCH ×3 (09:34→21:04)
[2019-03-30] MEDS: ENOXAPARIN NA (PORCINE) 100 MG/1 ML DISP.SYRIN SQ SCH ×2 (09:36→21:05)
[2019-03-30] MEDS: oxyCODONE HCL 5 MG TABLET PO PRN ×2 (09:37→22:18)
[2019-03-30] MEDS: TIOTROPIUM/OLODATEROL HCL (STIOLTO) 4 GM INHALER IH SCH ×2 (09:39→21:05)
--- NOTE | 2019-03-30 10:23 | PN ---
Progress Note (short form) - Note Progress Note: PULMONARY Febrile overnight and this AM. +nonproductive cough. Vital Signs Period Temp Pulse Resp BP Sys/Gtz Pulse Ox Last 24 Hr 98.4 F-102.7 F 70-94 18-24 97-114/57-67 95 Gen: NAD at rest Heart: RRR Lung: decreased breath sounds at the bases Abd: soft, nontender Ext: no edema CBC, BMP 03/30/19 07:10 03/30/19 07:10 Active Medications Acetaminophen (Tylenol -) 650 mg PO Q4H PRN PRN Reason: PAIN OR FEVER Last Admin: 03/30/19 09:36 Dose: 650 mg Albuterol Sulfate (Ventolin 0.083% Nebulizer Soln -) 1 amp NEB Q4H PRN PRN Reason: SHORT OF BREATH/WHEEZING Diltiazem HCl (Cardizem Cd -) 120 mg PO DAILY [facility] Last Admin: 03/30/19 09:52 Dose: Not Given Enoxaparin Sodium (Lovenox -) 100 mg SQ BID [facility] Last Admin: 03/30/19 09:36 Dose: 100 mg Ergocalciferol (Drisdol -) 50,000 unit PO Sa ALONDRA Gabapentin (Neurontin -) 300 mg PO BID [facility] Last Admin: 03/30/19 09:34 Dose: 300 mg Piperacillin Sod/Tazobactam (Sod 3.375 gm/ Dextrose) 50 mls @ 100 mls/hr IVPB Q8H-IV ALONDRA; Protocol Last Admin: 03/30/19 09:38 Dose: 100 mls/hr Morphine Sulfate (Ms Contin -) 30 mg PO BID [facility] Last Admin: 03/30/19 09:34 Dose: 30 mg Ondansetron HCl (Zofran -) 8 mg PO TID [facility] Last Admin: 03/30/19 05:59 Dose: 8 mg Oxycodone HCl (Roxicodone -) 30 mg PO Q6H PRN PRN Reason: PAIN LEVEL 6-10 Last Admin: 03/30/19 09:37 Dose: 30 mg Pantoprazole Sodium (Protonix -) 40 mg PO DAILY [facility] Last Admin: 03/30/19 09:34 Dose: 40 mg Rosuvastatin Calcium (Crestor -) 40 mg PO HS [facility] Last Admin: 03/29/19 21:08 Dose: 40 mg Sotalol HCl (Betapace -) 80 mg PO BID [facility] Last Admin: 03/30/19 09:49 Dose: Not Given Tiotropium [place]/Olodaterol (Stiolto Respimat Inhal [place]) 1 puff IH BID [facility] Last Admin: 03/30/19 09:39 Dose: 1 puff Zolpidem Tartrate (Ambien -) 5 mg PO HS PRN PRN Reason: INSOMNIA Last Admin: 03/29/19 23:07 Dose: 5 mg A/P r/o Post Obstructive Pneumonia NSCLC on chemo Chronic Hypoxic Respiratory Failure COPD Pulmonary HTN h/o SVC syndrome Paroxysmal Atrial fibrillation Lactic Acidosis HTN Hyperlipidemia LISA - continue antibiotics per ID - f/u cultures - inhaled bronchodilators - O2 to keep SpO2 >90% - rate controlled - continue anticoagulation
--- NOTE | 2019-03-30 10:59 | PN ---
Progress Note, Physician Chief Complaint: AWAKE ALERT C/O CHEST PAIN EARLIER TODAY STERNAL NON-RADIATING NO FEVER OR CHILLS - Current Medication List Current Medications: Active Medications Acetaminophen (Tylenol -) 650 mg PO Q4H PRN PRN Reason: PAIN OR FEVER Last Admin: 03/30/19 09:36 Dose: 650 mg Albuterol Sulfate (Ventolin 0.083% Nebulizer Soln -) 1 amp NEB Q4H PRN PRN Reason: SHORT OF BREATH/WHEEZING Diltiazem HCl (Cardizem Cd -) 120 mg PO DAILY [facility] Last Admin: 03/30/19 09:52 Dose: Not Given Enoxaparin Sodium (Lovenox -) 100 mg SQ BID [facility] Last Admin: 03/30/19 09:36 Dose: 100 mg Ergocalciferol (Drisdol -) 50,000 unit PO Sa [facility] Gabapentin (Neurontin -) 300 mg PO BID [facility] Last Admin: 03/30/19 09:34 Dose: 300 mg Piperacillin Sod/Tazobactam (Sod 3.375 gm/ Dextrose) 50 mls @ 100 mls/hr IVPB Q8H-IV [facility]; Protocol Last Admin: 03/30/19 09:38 Dose: 100 mls/hr Morphine Sulfate (Ms Contin -) 30 mg PO BID [facility] Last Admin: 03/30/19 09:34 Dose: 30 mg Ondansetron HCl (Zofran -) 8 mg PO TID [facility] Last Admin: 03/30/19 05:59 Dose: 8 mg Oxycodone HCl (Roxicodone -) 30 mg PO Q6H PRN PRN Reason: PAIN LEVEL 6-10 Last Admin: 03/30/19 09:37 Dose: 30 mg Pantoprazole Sodium (Protonix -) 40 mg PO DAILY [facility] Last Admin: 03/30/19 09:34 Dose: 40 mg Rosuvastatin Calcium (Crestor -) 40 mg PO HS [facility] Last Admin: 03/29/19 21:08 Dose: 40 mg Sotalol HCl (Betapace -) 80 mg PO BID [facility] Last Admin: 03/30/19 09:49 Dose: Not Given Tiotropium [place]/Olodaterol (Stiolto Respimat Inhal [place]) 1 puff IH BID [facility] Last Admin: 03/30/19 09:39 Dose: 1 puff Zolpidem Tartrate (Ambien -) 5 mg PO HS PRN PRN Reason: INSOMNIA Last Admin: 03/29/19 23:07 Dose: 5 mg - Objective Vital Signs: Vital Signs Temperature 99.5 F 03/30/19 10:00 Pulse Rate 93 H 03/30/19 10:00 Respiratory Rate 20 03/30/19 10:00 Blood Pressure 105/64 03/30/19 10:00 O2 Sat by Pulse Oximetry (%) 93 L 03/30/19 09:00 Constitutional: Yes: Mild Distress Cardiovascular: Yes: Regular Rate and Rhythm Respiratory: Yes: Diminished, On Nasal O2 Gastrointestinal: Yes: WNL Genitourinary: Yes: WNL Musculoskeletal: Yes: Muscle Pain Extremities: Yes: WNL Edema: No Labs: CBC, BMP 03/30/19 07:10 03/30/19 07:10 INR, PTT INR 1.23 (0.83-1.09) H 03/28/19 02:00 Problem List - Problems (1) Lactic acidosis Code(s): E87.2 - ACIDOSIS (2) Pneumonia Code(s): J18.9 - PNEUMONIA, UNSPECIFIED ORGANISM Qualifiers: Pneumonia type: due to unspecified organism Laterality: right Lung location: middle lobe of lung Qualified Code(s): J18.1 - Lobar pneumonia, unspecified organism (3) Sepsis Code(s): A41.9 - SEPSIS, UNSPECIFIED ORGANISM Qualifiers: Sepsis type: sepsis due to unspecified organism Sepsis acute organ dysfunction status: without acute organ dysfunction Qualified Code(s): A41.9 - Sepsis, unspecified organism (4) Shortness of breath Code(s): R06.02 - SHORTNESS OF BREATH (5) Acute respiratory failure Code(s): J96.00 - ACUTE RESPIRATORY FAILURE, UNSP W HYPOXIA OR HYPERCAPNIA Qualifiers: Respiratory failure complication: hypoxia Qualified Code(s): J96.01 - Acute respiratory failure with hypoxia (6) Afib Code(s): I48.91 - UNSPECIFIED ATRIAL FIBRILLATION (7) Anemia Code(s): D64.9 - ANEMIA, UNSPECIFIED Qualifiers: Anemia type: unspecified type Qualified Code(s): D64.9 - Anemia, unspecified (8) COPD (chronic obstructive pulmonary disease) Code(s): J44.9 - CHRONIC OBSTRUCTIVE PULMONARY DISEASE, UNSPECIFIED Qualifiers: COPD type: unspecified COPD Qualified Code(s): J44.9 - Chronic obstructive pulmonary disease, unspecified (9) DVT (deep venous thrombosis) Code(s): I82.409 - ACUTE EMBOLISM AND THOMBOS UNSP DEEP VN UNSP LOWER EXTREMITY Qualifiers: DVT location: upper extremity Affected thrombotic vein of extremity: other upper extremity vein Chronicity: acute Laterality: right Qualified Code(s) : I82.621 - Acute embolism and thrombosis of deep veins of right upper extremity (10) Squamous cell lung cancer Code(s): C34.90 - MALIGNANT NEOPLASM OF UNSP PART OF UNSP BRONCHUS OR LUNG Assessment/Plan CARDIAC ENZYMES NEGATIVE X 1 EKG NO ACUTE CHANGES CHEST PAIN LIKELY MUSCULAR PNEUMONIA STABLE ON IV ABX NEBS/02 SUPPORT/PULM EVAL APPRECIATED DVT PROPHYLAXIS OOB TO CHAIR
--- NOTE | 2019-03-30 13:25 | CON.CARD ---
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 Patient endorses hot and cold flashes as well as chills and rigors. Patient is receiving chemotherapy and had chemo yesterday. He currently reports post-tussive chest pain worse with moving torso, denies near or true syncope, palpitations. no pnd, orthopnea or LE edema. - History Source History Provided By: Patient Limitations to Obtaining History: No Limitations - Past Medical History Cardio/Vascular: Yes: AFIB, HTN, Other (smoker with lung mass) Pulmonary: Yes: Cancer (Squamous cell lung cancer), COPD - Past Surgical History Past Surgical History: Yes: Cholecystectomy, Hernia Repair - Alcohol/Substance Use Hx Alcohol Use: No - Smoking History Smoking history: Former smoker Have you smoked in the past 12 months: No Aproximately how many cigarettes per day: 5 If you are a former smoker, when did you quit?: 2018 - Social History Usual Living Arrangement: Alone ADL: Independent History of Recent Travel: No Home Medications - Allergies Allergies/Adverse Reactions: Allergies Allergy/AdvReac Type Severity Reaction Status Date / Time No Known Allergies Allergy Verified 03/28/19 00:44 - Home Medications Home Medications: Ambulatory Orders Albuterol Sulfate [Proventil HFA Inhaler -] 1 - 2 inh PO QID 02/22/18 Sotalol HCl [Betapace -] 80 mg PO BID tablet 04/29/18 Tiotropium [place] [Spiriva Respimat] 2 puff IH DAILY inhaler 04/29/18 Diltiazem Cd [Cardizem Cd -] 120 mg PO DAILY #30 cap.cd.24h 05/05/18 Oxycodone HCl 30 mg PO Q6H PRN 08/09/18 Ondansetron HCl [Zofran] 8 mg PO TID 11/24/18 Morphine *Sr* [Ms Contin -] 30 mg PO Q12H 11/25/18 Enoxaparin [Lovenox -] 100 mg SQ BID 03/28/19 Ergocalciferol (Vitamin D2) [Vitamin D2] 50,000 unit PO WEEKLY 03/28/19 Gabapentin 300 mg PO BID 03/28/19 Pantoprazole Sodium [Protonix] 40 mg PO DAILY 03/28/19 Pravastatin Sodium [Pravachol] 40 mg PO DAILY 03/28/19 Tiotropium [place]/Olodaterol HCl [Stiolto Respimat Inhal [place]] 1 puff BID 03/28/19 Zolpidem Tartrate [Ambien] 10 mg PO HS 03/28/19 Review of Systems - Review of Systems Constitutional: reports: Fever Cardiovascular: reports: Shortness of Breath Respiratory: reports: Cough, SOB Vital Signs: Vital Signs Temperature 99.5 F 03/30/19 10:00 Pulse Rate 93 H 03/30/19 10:00 Respiratory Rate 20 03/30/19 10:00 Blood Pressure 105/64 03/30/19 10:00 O2 Sat by Pulse Oximetry (%) 93 L 03/30/19 09:00 Constitutional: Yes: No Distress, Calm Neck: Yes: Supple Respiratory: Yes: Regular, Diminished, On Nasal O2 Gastrointestinal: Yes: Normal Bowel Sounds, Soft Cardiovascular: Yes: Regular Rate and Rhythm JVD: No Carotid Bruit: No Heart Sounds: Yes: S1, S2 Edema: No - Other Data Labs, Other Data: CBC, BMP 03/30/19 07:10 03/30/19 07:10 INR, PTT INR 1.23 (0.83-1.09) H 03/28/19 02:00 ST @ 112 QTc 466 msec Ejection Fraction %: LVEF > or = 40 % Imaging - Results Chest X-ray: Report Reviewed (Right infiltrate and mass) Cat Scan: Report Reviewed (03/29/[address]: Small right effusion, right hilar mass with right lung diffuse opacities, pulm nodules) Problem List - Problems (1) Pneumonia Code(s): J18.9 - PNEUMONIA, UNSPECIFIED ORGANISM Qualifiers: Pneumonia type: due to unspecified organism Laterality: right Lung location: middle lobe of lung Qualified Code(s): J18.1 - Lobar pneumonia, unspecified organism (2) Shortness of breath Code(s): R06.02 - SHORTNESS OF BREATH (3) Anemia Code(s): D64.9 - ANEMIA, UNSPECIFIED Qualifiers: Anemia type: unspecified type Qualified Code(s): D64.9 - Anemia, unspecified (4) Anticoagulant long-term use Code(s): Z79.01 - [facility] (CURRENT) USE OF 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 (5) COPD (chronic obstructive pulmonary disease) Code(s): J44.9 - CHRONIC OBSTRUCTIVE PULMONARY DISEASE, UNSPECIFIED Qualifiers: COPD type: unspecified COPD Qualified Code(s): J44.9 - Chronic obstructive pulmonary disease, unspecified (6) HTN (hypertension) Code(s): I10 - ESSENTIAL (PRIMARY) HYPERTENSION Qualifiers: Hypertension type: essential hypertension Qualified Code(s): I10 - Essential (primary) hypertension (7) Lung cancer Code(s): C34.90 - MALIGNANT NEOPLASM OF UNSP PART OF UNSP BRONCHUS OR LUNG Qualifiers: Laterality: right Lung location: upper lobe of lung Qualified Code(s): C34.11 - Malignant neoplasm of upper lobe, right bronchus or lung (8) Paroxysmal atrial fibrillation Code(s): I48.0 - PAROXYSMAL ATRIAL FIBRILLATION Assessment/Plan 1. Post-obstructive pneumonia, resolving 2. Anemia h/o transfusion 3. 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 RUL Lung Mass, moderately differentiated squamous cell carcinoma post chemo/ radiation therapies 5. CAD/coronary artery calcification angina pectoris 6. Diastolic LV dysfunction with class 0 NYHA classification LV failure 7. Paroxysmal Atrial Fibrillation/paroxysmal atrial flutter [id number] score of 1 on anticoagulation, on Lovenox 8. HTN/HCVD 9. COPD/emphysema 10. Chronic Hypoxic Respiratory Failure 11. History of Hepatitis C post-treatment 12. OSAS 13. Hyperlipidemia PLAN: 1. Continue Lovenox 100 bid with close monitoring of Hg level and pravachol 40 qd 2. Continue Betapace 80 bid with close monitoring of QTc interval 3. Continue Cardizem CD 120 qd, hemodynamics permitting 4. Antibiotic course f/u C&S, BD, O2 to keep SpO2 >90% 5. Thank you for consultative opportunity
--- NOTE | 2019-03-30 13:58 | EKG ---
Test Reason : Blood Pressure : / mmHG Vent. Rate : 112 BPM Atrial Rate : 112 BPM P-R Int : 182 ms QRS Dur : 076 ms QT Int : 342 ms P-R-T Axes : 045 011 043 degrees QTc Int : 466 ms SINUS TACHYCARDIA OTHERWISE NORMAL ECG WHEN COMPARED WITH ECG OF 28-MAR-2019 01:14, NO SIGNIFICANT CHANGE WAS FOUND Confirmed by ZHANG ANDRADE MD ([id number]) on 03/30/2019 1:58:17 PM Referred By: MARK DAMICO DR Confirmed By:ZHANG ANDRADE MD
[2019-03-30] MEDS: ROSUVASTATIN CA 40 MG TABLET PO SCH (21:04)
--- NOTE | 2019-03-30 21:38 | PN ---
Progress Note (short form) - Note Progress Note: Patient seen and examined c/o weakness Fever upto 101.7 VSS Cor: RSR, No murmurs, No gallops Lungs: decreased at bases Abd: Soft, Normal bowel sounds, No organomegaly Ext:No significant edema Labs/Meds reviewed A/P 63 y/o patient with locally advanced squamous cell lung cancer, s/p chemo/RT, h/ o SVC syndrome on lovenox, admitted with fevers ? post obstructive pneumonitisOn Zosyn ID follow up CT --rt. hilar mass with mediastinal involvement and diffuse right lung opacities
[2019-03-30] MEDS: ALBUTEROL SO4 0.083% IH SOL 2.5 MG/3 ML VIAL.NEB. NEB PRN (21:40)
[2019-03-30] MEDS: ZOLPIDEM TARTRATE 5 MG TABLET PO PRN (22:18)
[2019-03-31] MEDS ORDERED: PIPERACILLIN/TAZOBACTAM 3.375 GM VIAL IVPB ONE ×3 (00:42→16:46)
[2019-03-31] MEDS ORDERED: DEXTROSE 5%-WATER - 50 ML IVPB ONE ×3 (00:42→16:46)
[2019-03-31] MEDS: PIPERACILLIN/TAZOB 3.375 GM 3.375 GM in DEXTROSE 5%-WATER - 50 ML IVPB SCH ×3 (01:18→17:07)
[2019-03-31] MEDS: ACETAMINOPHEN 325 MG TABLET (FP) PO PRN ×4 (01:19→21:55)
[2019-03-31] MEDS: ONDANSETRON 8 MG TABLET (FP) PO SCH ×3 (05:37→21:44)
[2019-03-31 07:31] LABS: HEMATOCRIT 25.6 % (35.4-49); HEMOGLOBIN 8.6 GM/dL (11.7-16.9); MCH 31.2 pg (25.7-33.7); MCHC 33.4 g/dl (32.0-35.9); MEAN CELL VOLUME 93.3 fl (80-96); MEAN PLT VOLUME 7.8 fl (7.5-11.1); PLATELET COUNT 113 K/MM3 (134-434); RBC 2.75 M/mm3 (4.00-5.60); RDW 15.6 % (11.9-15.9); WHITE BLOOD COUNT 7.3 K/mm3 (4.0-10.0)
[2019-03-31] MEDS: ALBUTEROL SO4 0.083% IH SOL 2.5 MG/3 ML VIAL.NEB. NEB PRN (07:57)
[2019-03-31] MEDS: GABAPENTIN 300 MG CAPSULE (FP) PO SCH ×2 (09:13→21:44)
[2019-03-31] MEDS: ENOXAPARIN NA (PORCINE) 100 MG/1 ML DISP.SYRIN SQ SCH ×2 (09:14→21:54)
[2019-03-31] MEDS: morphine SO4 SUSTAINED ACTING 30 MG TABLET.SA PO SCH ×2 (09:14→21:45)
[2019-03-31] MEDS: PANTOPRAZOLE 40 MG TABLET (FP) PO SCH (09:14)
[2019-03-31] MEDS: SOTALOL HCL 80 MG TABLET (FP) PO SCH ×2 (09:16→21:48)
[2019-03-31] MEDS: TIOTROPIUM/OLODATEROL HCL (STIOLTO) 4 GM INHALER IH SCH ×2 (09:31→21:44)
[2019-03-31] MEDS: oxyCODONE HCL 5 MG TABLET PO PRN ×2 (09:31→23:23)
--- NOTE | 2019-03-31 11:05 | PN ---
Progress Note (short form) - Note Progress Note: Patient seen and examined Spiked temperature this AM Antibiotics continue Some dry , non productive cough Last Vital Signs Temp Pulse Resp BP Pulse Ox 99.1 F 111 H 22 H 102/64 98 03/31/19 08:45 03/31/19 07:45 03/31/19 07:45 03/31/19 07:45 03/31/19 09:00 HEENT: ROSARIO, EOM Intact Oropharynx: thrush, Cor: RSR, No murmurs, No gallops Lungs:decreased breath sounds RLL, rales RUL and RONNY anteriorly Abd: Soft, Normal bowel sounds, No organomegaly Ext:No significant edema Skin: No rashes, Integument intact CBC, BMP 03/31/19 06:35 03/30/19 07:10 Current Medications Generic Name Dose Route Start Last Admin Trade Name Freq PRN Reason Stop Dose Admin Acetaminophen 650 mg 03/28/19 11:00 03/31/19 07:48 Tylenol - PO 650 mg Q4H PRN Administration PAIN OR FEVER Albuterol Sulfate 1 amp 03/28/19 10:59 03/31/19 07:57 Ventolin 0.083% Nebulizer Soln - NEB 1 amp Q4H PRN Administration SHORT OF BREATH/WHEEZING Diltiazem HCl 120 mg 03/28/19 11:00 03/31/19 09:16 Cardizem Cd - PO Not Given DAILY ALONDRA Enoxaparin Sodium 100 mg 03/28/19 11:00 03/31/19 09:14 Lovenox - SQ 100 mg BID ALONDRA Administration Ergocalciferol 50,000 unit 04/01/19 10:00 Drisdol - PO Sa [facility]ONDRA Gabapentin 300 mg 03/28/19 11:00 03/31/19 09:13 Neurontin - PO 300 mg BID ALONDRA Administration Piperacillin Sod/Tazobactam 50 mls @ 100 mls/hr 03/28/19 18:00 03/31/19 09:13 Sod 3.375 gm/ Dextrose IVPB 100 mls/hr Q8H-IV ALONDRA Administration Protocol Morphine Sulfate 30 mg 03/28/19 12:26 03/31/19 09:14 Ms Contin - PO 30 mg BID ALONDRA Administration Ondansetron HCl 8 mg 03/28/19 14:00 03/31/19 05:37 Zofran - PO 8 mg TID ALONDRA Administration Oxycodone HCl 30 mg 03/30/19 13:55 03/31/19 09:31 Roxicodone - PO 30 mg Q6H PRN Administration PAIN LEVEL 6-10 Pantoprazole Sodium 40 mg 03/28/19 11:00 03/31/19 09:14 Protonix - PO 40 mg DAILY ALON[facility]A Administration Rosuvastatin Calcium 40 mg 03/28/19 22:00 03/30/19 21:04 Crestor - PO 40 mg HS ALONDRA Administration Sotalol HCl 80 mg 03/28/19 11:00 03/31/19 09:16 Betapace - PO Not Given BID [facility] Tiotropium [place]/Olodaterol 1 puff 03/28/19 22:00 03/31/19 09:31 Stiolto Respimat Inhal [place] IH 1 puff BID ALONDRA Administration Zolpidem Tartrate 5 mg 03/28/19 20:43 03/30/19 22:18 Ambien - PO 5 mg HS PRN Administration INSOMNIA Impression: SCC lung ?post obstructive pneumonia SVC syndrome H/O PE A/C Anemia --Hct- 30%--->5% thrombocytopenia--- Platelets-- 84K---> 113K Hypoxic respiratory Failure- on 3L -nasal O2 Thrush Plan: Antibiotics per ID Nystatin Monitor CBC-- fall in Hct--? dilutional, blood letting, ineffective erythropoiesis Fall in platelets- ?? infection, ? antibiotics- doubt HIT--- rn long term care lovenox therapy
--- NOTE | 2019-03-31 11:31 | PN ---
Progress Note, Physician History of Present Illness: AWAKE, ALERT IN BED C/O DRY COUGH REMAINS FEBRILE WBC WNL THROMBOCYTOPENIC CULTURES NO GROWTH - Current Medication List Current Medications: Active Medications Acetaminophen (Tylenol -) 650 mg PO Q4H PRN PRN Reason: PAIN OR FEVER Last Admin: 03/31/19 07:48 Dose: 650 mg Albuterol Sulfate (Ventolin 0.083% Nebulizer Soln -) 1 amp NEB Q4H PRN PRN Reason: SHORT OF BREATH/WHEEZING Last Admin: 03/31/19 07:57 Dose: 1 amp Diltiazem HCl (Cardizem Cd -) 120 mg PO DAILY [facility] Last Admin: 03/31/19 09:16 Dose: Not Given Enoxaparin Sodium (Lovenox -) 100 mg SQ BID [facility] Last Admin: 03/31/19 09:14 Dose: 100 mg Ergocalciferol (Drisdol -) 50,000 unit PO Sa [facility] Gabapentin (Neurontin -) 300 mg PO BID [facility] Last Admin: 03/31/19 09:13 Dose: 300 mg Piperacillin Sod/Tazobactam (Sod 3.375 gm/ Dextrose) 50 mls @ 100 mls/hr IVPB Q8H-IV [facility]ON[facility]; Protocol Last Admin: 03/31/19 09:13 Dose: 100 mls/hr Morphine Sulfate (Ms Contin -) 30 mg PO BID [facility] Last Admin: 03/31/19 09:14 Dose: 30 mg Nystatin (Nystatin) 500,000 unit PO TID [facility] Ondansetron HCl (Zofran -) 8 mg PO TID [facility] Last Admin: 03/31/19 05:37 Dose: 8 mg Oxycodone HCl (Roxicodone -) 30 mg PO Q6H PRN PRN Reason: PAIN LEVEL 6-10 Last Admin: 03/31/19 09:31 Dose: 30 mg Pantoprazole Sodium (Protonix -) 40 mg PO DAILY [facility] Last Admin: 03/31/19 09:14 Dose: 40 mg Rosuvastatin Calcium (Crestor -) 40 mg PO HS [facility] Last Admin: 03/30/19 21:04 Dose: 40 mg Sotalol HCl (Betapace -) 80 mg PO BID [facility] Last Admin: 03/31/19 09:16 Dose: Not Given Tiotropium [place]/Olodaterol (Stiolto Respimat Inhal [place]) 1 puff IH BID [facility] Last Admin: 03/31/19 09:31 Dose: 1 puff Zolpidem Tartrate (Ambien -) 5 mg PO HS PRN PRN Reason: INSOMNIA Last Admin: 03/30/19 22:18 Dose: 5 mg - Objective Vital Signs: Vital Signs Temperature 99.1 F 03/31/19 08:45 Pulse Rate 111 H 03/31/19 07:45 Respiratory Rate 22 H 03/31/19 07:45 Blood Pressure 102/64 03/31/19 07:45 O2 Sat by Pulse Oximetry (%) 98 03/31/19 09:00 Constitutional: Yes: No Distress Eyes: Yes: Conjunctiva Clear Cardiovascular: Yes: Regular Rate and Rhythm, S1, S2 Respiratory: Yes: Rhonchi Gastrointestinal: Yes: Normal Bowel Sounds, Soft. No: Tenderness Edema: No Labs: CBC, BMP 03/31/19 06:35 03/30/19 07:10 INR, PTT INR 1.23 (0.83-1.09) H 03/28/19 02:00 Assessment/Plan FEVER ? POST OBSTRUCTIVE PNEUMONIA LUNG CA THROMBOCYTOPENIA CONTINUE EMPIRIC ZOSYN
--- NOTE | 2019-03-31 12:30 | PN ---
Progress Note, Physician History of Present Illness: Nonproductive cough and shortness of breath, febrile earlier in AM. - Current Medication List Current Medications: Active Medications Acetaminophen (Tylenol -) 650 mg PO Q4H PRN PRN Reason: PAIN OR FEVER Last Admin: 03/31/19 07:48 Dose: 650 mg Albuterol Sulfate (Ventolin 0.083% Nebulizer Soln -) 1 amp NEB Q4H PRN PRN Reason: SHORT OF BREATH/WHEEZING Last Admin: 03/31/19 07:57 Dose: 1 amp Diltiazem HCl (Cardizem Cd -) 120 mg PO DAILY [facility] Last Admin: 03/31/19 09:16 Dose: Not Given Enoxaparin Sodium (Lovenox -) 100 mg SQ BID [facility] Last Admin: 03/31/19 09:14 Dose: 100 mg Ergocalciferol (Drisdol -) 50,000 unit PO Sa [facility] Gabapentin (Neurontin -) 300 mg PO BID [facility] Last Admin: 03/31/19 09:13 Dose: 300 mg Piperacillin Sod/Tazobactam (Sod 3.375 gm/ Dextrose) 50 mls @ 100 mls/hr IVPB Q8H-IV [facility]ON[facility]; Protocol Last Admin: 03/31/19 09:13 Dose: 100 mls/hr Morphine Sulfate (Ms Contin -) 30 mg PO BID [facility] Last Admin: 03/31/19 09:14 Dose: 30 mg Nystatin (Nystatin) 500,000 unit PO TID [facility] Ondansetron HCl (Zofran -) 8 mg PO TID [facility] Last Admin: 03/31/19 05:37 Dose: 8 mg Oxycodone HCl (Roxicodone -) 30 mg PO Q6H PRN PRN Reason: PAIN LEVEL 6-10 Last Admin: 03/31/19 09:31 Dose: 30 mg Pantoprazole Sodium (Protonix -) 40 mg PO DAILY [facility] Last Admin: 03/31/19 09:14 Dose: 40 mg Rosuvastatin Calcium (Crestor -) 40 mg PO HS [facility] Last Admin: 03/30/19 21:04 Dose: 40 mg Sotalol HCl (Betapace -) 80 mg PO BID [facility] Last Admin: 03/31/19 09:16 Dose: Not Given Tiotropium [place]/Olodaterol (Stiolto Respimat Inhal [place]) 1 puff IH BID [facility] Last Admin: 03/31/19 09:31 Dose: 1 puff Zolpidem Tartrate (Ambien -) 5 mg PO HS PRN PRN Reason: INSOMNIA Last Admin: 03/30/19 22:18 Dose: 5 mg - Objective Vital Signs: Vital Signs Temperature 99.1 F 03/31/19 08:45 Pulse Rate 111 H 03/31/19 07:45 Respiratory Rate 22 H 03/31/19 07:45 Blood Pressure 102/64 03/31/19 07:45 O2 Sat by Pulse Oximetry (%) 98 03/31/19 09:00 Constitutional: Yes: No Distress, Calm Neck: Yes: Supple Cardiovascular: Yes: Regular Rate and Rhythm Respiratory: Yes: Regular, Diminished, On Nasal O2 Gastrointestinal: Yes: Normal Bowel Sounds, Soft Edema: No Labs: CBC, BMP 03/31/19 06:35 03/30/19 07:10 INR, PTT INR 1.23 (0.83-1.09) H 03/28/19 02:00 Problem List - Problems (1) Pneumonia Code(s): J18.9 - PNEUMONIA, UNSPECIFIED ORGANISM Qualifiers: Pneumonia type: due to unspecified organism Laterality: right Lung location: middle lobe of lung Qualified Code(s): J18.1 - Lobar pneumonia, unspecified organism (2) Shortness of breath Code(s): R06.02 - SHORTNESS OF BREATH (3) Anemia Code(s): D64.9 - ANEMIA, UNSPECIFIED Qualifiers: Anemia type: unspecified type Qualified Code(s): D64.9 - Anemia, unspecified (4) Anticoagulant long-term use Code(s): Z79.01 - [facility] (CURRENT) USE OF 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 (5) COPD (chronic obstructive pulmonary disease) Code(s): J44.9 - CHRONIC OBSTRUCTIVE PULMONARY DISEASE, UNSPECIFIED Qualifiers: COPD type: unspecified COPD Qualified Code(s): J44.9 - Chronic obstructive pulmonary disease, unspecified (6) HTN (hypertension) Code(s): I10 - ESSENTIAL (PRIMARY) HYPERTENSION Qualifiers: Hypertension type: essential hypertension Qualified Code(s): I10 - Essential (primary) hypertension (7) Lung cancer Code(s): C34.90 - MALIGNANT NEOPLASM OF UNSP PART OF UNSP BRONCHUS OR LUNG Qualifiers: Laterality: right Lung location: upper lobe of lung Qualified Code(s): C34.11 - Malignant neoplasm of upper lobe, right bronchus or lung (8) Paroxysmal atrial fibrillation Code(s): I48.0 - PAROXYSMAL ATRIAL FIBRILLATION Assessment/Plan 1. Post-obstructive pneumonia, resolving 2. Anemia h/o transfusion 3. 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 RUL Lung Mass, moderately differentiated squamous cell carcinoma post chemo/ radiation therapies 5. CAD/coronary artery calcification angina pectoris 6. Diastolic LV dysfunction with class 0 NYHA classification LV failure 7. Paroxysmal Atrial Fibrillation/paroxysmal atrial flutter [id number] score of 1 on anticoagulation, on Lovenox 8. HTN/HCVD 9. COPD/emphysema 10. Chronic Hypoxic Respiratory Failure 11. History of Hepatitis C post-treatment 12. OSAS 13. Hyperlipidemia PLAN: 1. Continue Lovenox 100 bid with close monitoring of Hg level and Crestor 40 qd 2. Continue Betapace 80 bid with close monitoring of QTc interval 3. Continue Cardizem CD 120 qd, hemodynamics permitting 4. Antibiotic course f/u C&S, BD, O2 to keep SpO2 >90%
[2019-03-31] MEDS ORDERED: PT OWN MED DRAWER 7, Y5N ONE (13:15)
[2019-03-31] MEDS: NYSTATIN 500,000 UNITS TABLET PO SCH ×2 (13:18→22:11)
--- NOTE | 2019-03-31 14:44 | PN ---
Progress Note, Physician Chief Complaint: Pneumonia Lung CA History of Present Illness: Previous notes and events reviewed awake and alert NAD complain of cough with pleuritic pain febrile this morning with tmax 101.7F low PLT 113 no leukocytosis - Current Medication List Current Medications: Active Medications Acetaminophen (Tylenol -) 650 mg PO Q4H PRN PRN Reason: PAIN OR FEVER Last Admin: 03/31/19 07:48 Dose: 650 mg Albuterol Sulfate (Ventolin 0.083% Nebulizer Soln -) 1 amp NEB Q4H PRN PRN Reason: SHORT OF BREATH/WHEEZING Last Admin: 03/31/19 07:57 Dose: 1 amp Diltiazem HCl (Cardizem Cd -) 120 mg PO DAILY [facility] Last Admin: 03/31/19 09:16 Dose: Not Given Enoxaparin Sodium (Lovenox -) 100 mg SQ BID [facility] Last Admin: 03/31/19 09:14 Dose: 100 mg Ergocalciferol (Drisdol -) 50,000 unit PO Sa [facility] Gabapentin (Neurontin -) 300 mg PO BID [facility] Last Admin: 03/31/19 09:13 Dose: 300 mg Piperacillin Sod/Tazobactam (Sod 3.375 gm/ Dextrose) 50 mls @ 100 mls/hr IVPB Q8H-IV [facility]; Protocol Last Admin: 03/31/19 09:13 Dose: 100 mls/hr Morphine Sulfate (Ms Contin -) 30 mg PO BID [facility] Last Admin: 03/31/19 09:14 Dose: 30 mg Nystatin (Nystatin) 500,000 unit PO TID [facility] Last Admin: 03/31/19 13:18 Dose: 500,000 unit Ondansetron HCl (Zofran -) 8 mg PO TID [facility] Last Admin: 03/31/19 13:18 Dose: 8 mg Oxycodone HCl (Roxicodone -) 30 mg PO Q6H PRN PRN Reason: PAIN LEVEL 6-10 Last Admin: 03/31/19 09:31 Dose: 30 mg Pantoprazole Sodium (Protonix -) 40 mg PO DAILY [facility] Last Admin: 03/31/19 09:14 Dose: 40 mg Rosuvastatin Calcium (Crestor -) 40 mg PO HS [facility] Last Admin: 03/30/19 21:04 Dose: 40 mg Sotalol HCl (Betapace -) 80 mg PO BID [facility] Last Admin: 03/31/19 09:16 Dose: Not Given Tiotropium [place]/Olodaterol (Stiolto Respimat Inhal [place]) 1 puff IH BID [facility] Last Admin: 03/31/19 09:31 Dose: 1 puff Zolpidem Tartrate (Ambien -) 5 mg PO HS PRN PRN Reason: INSOMNIA Last Admin: 03/30/19 22:18 Dose: 5 mg - Objective Vital Signs: Vital Signs Temperature 99.6 F 03/31/19 14:04 Pulse Rate 109 H 03/31/19 14:04 Respiratory Rate 22 H 03/31/19 14:04 Blood Pressure 91/59 L 03/31/19 14:04 O2 Sat by Pulse Oximetry (%) 98 03/31/19 09:00 Constitutional: Yes: No Distress, Calm Eyes: Yes: Conjunctiva Clear HENT: Yes: Atraumatic Cardiovascular: Yes: Regular Rate and Rhythm Respiratory: Yes: Regular, On Nasal O2, Rhonchi Gastrointestinal: Yes: Normal Bowel Sounds, Soft Musculoskeletal: Yes: Muscle Weakness Extremities: Yes: WNL Edema: No Neurological: Yes: Alert, Oriented Psychiatric: Yes: Alert, Oriented Labs: CBC, BMP 03/31/19 06:35 03/30/19 07:10 INR, PTT INR 1.23 (0.83-1.09) H 03/28/19 02:00 Microbiology 03/28/19 02:00 Blood - Peripheral Venous Blood Culture - Preliminary NO GROWTH OBTAINED AFTER 72 HOURS, INCUBATION TO CONTINUE FOR 2 DAYS. 03/28/19 02:00 Blood - Peripheral Venous Blood Culture - Preliminary NO GROWTH OBTAINED AFTER 72 HOURS, INCUBATION TO CONTINUE FOR 2 DAYS. 03/28/19 18:40 Urine For Antigen Detection Legionella Antigen - Final 03/28/19 18:40 Urine For Antigen Detection Streptococcus pneumoniae Antigen (M - Final 03/28/19 05:20 Urine - Urine Clean Catch Urine Culture - Final NO GROWTH OBTAINED Problem List - Problems (1) Lactic acidosis Assessment/Plan: -LA 2.2 down to 1.6 -resolved Code(s): E87.2 - ACIDOSIS (2) Pneumonia Assessment/Plan: -Chest CT scan shows small right effusion which may be partially loculated and shows some extension into the fissures -Pulm and ID on board -bronchodilators -Zosyn -BC neg -Urine Legionella neg -no ottoniel -leukocytosis -febrile this AM Code(s): J18.9 - PNEUMONIA, UNSPECIFIED ORGANISM Qualifiers: Pneumonia type: due to unspecified organism Laterality: right Lung location: middle lobe of lung Qualified Code(s): J18.1 - Lobar pneumonia, unspecified organism (3) Sepsis Assessment/Plan: -Chest CT scan shows small right effusion which may be partially loculated and shows some extension into the fissures -ID on board -bronchodilators -Zosyn -BC neg -Urine Legionella neg -UC neg -no leukocytosis -febrile this AM -LA 1.6 Code(s): A41.9 - SEPSIS, UNSPECIFIED ORGANISM Qualifiers: Sepsis type: sepsis due to unspecified organism Sepsis acute organ dysfunction status: without acute organ dysfunction Qualified Code(s): A41.9 - Sepsis, unspecified organism (4) Afib Assessment/Plan: -Lovenox Code(s): I48.91 - UNSPECIFIED ATRIAL FIBRILLATION (5) COPD (chronic obstructive pulmonary disease) Assessment/Plan: -Pulm on board -bronchodilators -keep SpO2 >90% -O2 via NC -Stiolto -Chest CT scan shows advanced COPD Code(s): J44.9 - CHRONIC OBSTRUCTIVE PULMONARY DISEASE, UNSPECIFIED Qualifiers: COPD type: unspecified COPD Qualified Code(s): J44.9 - Chronic obstructive pulmonary disease, unspecified (6) DVT (deep venous thrombosis) Assessment/Plan: -Lovenox Code(s): I82.409 - ACUTE EMBOLISM AND THOMBOS UNSP DEEP VN UNSP LOWER EXTREMITY Qualifiers: DVT location: upper extremity Affected thrombotic vein of extremity: other upper extremity vein Chronicity: acute Laterality: right Qualified Code(s) : I82.621 - Acute embolism and thrombosis of deep veins of right upper extremity (7) HTN (hypertension) Assessment/Plan: -Sotalol -low Na diet Code(s): I10 - ESSENTIAL (PRIMARY) HYPERTENSION Qualifiers: Hypertension type: essential hypertension Qualified Code(s): I10 - Essential (primary) hypertension (8) Lung cancer Assessment/Plan: -Oncology on board -receiving chemotherapy -Chest CT scan shows multiple lung nodules Code(s): C34.90 - MALIGNANT NEOPLASM OF UNSP PART OF UNSP BRONCHUS OR LUNG Qualifiers: Laterality: right Lung location: upper lobe of lung Qualified Code(s): C34.11 - Malignant neoplasm of upper lobe, right bronchus or lung Assessment/Plan see problem list
--- NOTE | 2019-03-31 15:53 | PN ---
Progress Note, Physician History of Present Illness: pulmonary alert,less dyspneic,+ cough non-productive,tmax 101.7 - Current Medication List Current Medications: Active Medications Acetaminophen (Tylenol -) 650 mg PO Q4H PRN PRN Reason: PAIN OR FEVER Last Admin: 03/31/19 07:48 Dose: 650 mg Albuterol Sulfate (Ventolin 0.083% Nebulizer Soln -) 1 amp NEB Q4H PRN PRN Reason: SHORT OF BREATH/WHEEZING Last Admin: 03/31/19 07:57 Dose: 1 amp Diltiazem HCl (Cardizem Cd -) 120 mg PO DAILY [facility] [place] Last Admin: 03/31/19 09:16 Dose: Not Given Enoxaparin Sodium (Lovenox -) 100 mg SQ BID [facility] [place] Last Admin: 03/31/19 09:14 Dose: 100 mg Ergocalciferol (Drisdol -) 50,000 unit PO Sa [facility] Gabapentin (Neurontin -) 300 mg PO BID [facility] [place] Last Admin: 03/31/19 09:13 Dose: 300 mg Piperacillin Sod/Tazobactam (Sod 3.375 gm/ Dextrose) 50 mls @ 100 mls/hr IVPB Q8H-IV [facility]; Protocol Last Admin: 03/31/19 09:13 Dose: 100 mls/hr Morphine Sulfate (Ms Contin -) 30 mg PO BID [facility] [place] Last Admin: 03/31/19 09:14 Dose: 30 mg Nystatin (Nystatin) 500,000 unit PO TID [facility] [place] Last Admin: 03/31/19 13:18 Dose: 500,000 unit Ondansetron HCl (Zofran -) 8 mg PO TID [facility] [place] Last Admin: 03/31/19 13:18 Dose: 8 mg Oxycodone HCl (Roxicodone -) 30 mg PO Q6H PRN PRN Reason: PAIN LEVEL 6-10 Last Admin: 03/31/19 09:31 Dose: 30 mg Pantoprazole Sodium (Protonix -) 40 mg PO DAILY [facility] [place] Last Admin: 03/31/19 09:14 Dose: 40 mg Rosuvastatin Calcium (Crestor -) 40 mg PO HS [facility] [place] Last Admin: 03/30/19 21:04 Dose: 40 mg Sotalol HCl (Betapace -) 80 mg PO BID [facility] [place] Last Admin: 03/31/19 09:16 Dose: Not Given Tiotropium [place]/Olodaterol (Stiolto Respimat Inhal [place]) 1 puff IH BID [facility] Last Admin: 03/31/19 09:31 Dose: 1 puff Zolpidem Tartrate (Ambien -) 5 mg PO HS PRN PRN Reason: INSOMNIA Last Admin: 03/30/19 22:18 Dose: 5 mg - Objective Vital Signs: Vital Signs Temperature 99.6 F 03/31/19 14:04 Pulse Rate 109 H 03/31/19 14:04 Respiratory Rate 22 H 03/31/19 14:04 Blood Pressure 91/59 L 03/31/19 14:04 O2 Sat by Pulse Oximetry (%) 98 03/31/19 09:00 Constitutional: Yes: Well Nourished, Calm Eyes: Yes: WNL HENT: Yes: WNL Neck: Yes: WNL Cardiovascular: Yes: Pulse Irregular, S1, S2 Respiratory: Yes: Diminished Gastrointestinal: Yes: Normal Bowel Sounds, Soft Extremities: Yes: WNL Edema: No Labs: CBC, BMP 03/31/19 06:35 03/30/19 07:10 INR, PTT INR 1.23 (0.83-1.09) H 03/28/19 02:00 Problem List - Problems (1) Pneumonia Code(s): J18.9 - PNEUMONIA, UNSPECIFIED ORGANISM Qualifiers: Pneumonia type: due to unspecified organism Laterality: right Lung location: middle lobe of lung Qualified Code(s): J18.1 - Lobar pneumonia, unspecified organism (2) Sepsis Code(s): A41.9 - SEPSIS, UNSPECIFIED ORGANISM Qualifiers: Sepsis type: sepsis due to unspecified organism Sepsis acute organ dysfunction status: without acute organ dysfunction Qualified Code(s): A41.9 - Sepsis, unspecified organism (3) Shortness of breath Code(s): R06.02 - SHORTNESS OF BREATH (4) Afib Code(s): I48.91 - UNSPECIFIED ATRIAL FIBRILLATION (5) Anemia Code(s): D64.9 - ANEMIA, UNSPECIFIED Qualifiers: Anemia type: unspecified type Qualified Code(s): D64.9 - Anemia, unspecified (6) Anticoagulant long-term use Code(s): Z79.01 - [employer] (CURRENT) USE OF 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 (7) HTN (hypertension) Code(s): I10 - ESSENTIAL (PRIMARY) HYPERTENSION Qualifiers: Hypertension type: essential hypertension Qualified Code(s): I10 - Essential (primary) hypertension (8) Lung cancer Code(s): C34.90 - MALIGNANT NEOPLASM OF UNSP PART OF UNSP BRONCHUS OR LUNG Qualifiers: Laterality: right Lung location: upper lobe of lung Qualified Code(s): C34.11 - Malignant neoplasm of upper lobe, right bronchus or lung (9) Squamous cell lung cancer Code(s): C34.90 - MALIGNANT NEOPLASM OF UNSP PART OF UNSP BRONCHUS OR LUNG Assessment/Plan IMP FEVER LIKELY PNEUMONIA ?POST-OBSTRUCTIVE LUNG CA SQUAMOUS CELL ON CHEMO ADVANCED COPD WITH CHRONIC HYPOXEMIC RESPIRATORY FAILURE PULMONARY HTN H/O SVC SYSNDROME S/P STENT LISA HTN HLD AFIB ELEVATED LACTATE PLAN ABX INHALED BRONCHODILATORS SUPPLEMENTAL O2 AC MONITOR LYTES,CBC DR ABRAMS Problem List - Problems (1) Pneumonia Code(s): J18.9 - PNEUMONIA, UNSPECIFIED ORGANISM Qualifiers: Pneumonia type: due to unspecified organism Laterality: right Lung location: middle lobe of lung Qualified Code(s): J18.1 - Lobar pneumonia, unspecified organism (2) Sepsis Code(s): A41.9 - SEPSIS, UNSPECIFIED ORGANISM Qualifiers: Sepsis type: sepsis due to unspecified organism Sepsis acute organ dysfunction status: without acute organ dysfunction Qualified Code(s): A41.9 - Sepsis, unspecified organism (3) Shortness of breath Code(s): R06.02 - SHORTNESS OF BREATH (4) Afib Code(s): I48.91 - UNSPECIFIED ATRIAL FIBRILLATION (5) Anemia Code(s): D64.9 - ANEMIA, UNSPECIFIED Qualifiers: Anemia type: unspecified type Qualified Code(s): D64.9 - Anemia, unspecified (6) Anticoagulant long-term use Code(s): Z79.01 - [place]ENTION (CURRENT) USE OF 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 (7) HTN (hypertension) Code(s): I10 - ESSENTIAL (PRIMARY) HYPERTENSION (8) Lung cancer Code(s): C34.90 - MALIGNANT NEOPLASM OF UNSP PART OF UNSP BRONCHUS OR LUNG Qualifiers: Laterality: right Lung location: upper lobe of lung Qualified Code(s): C34.11 - Malignant neoplasm of upper lobe, right bronchus or lung (9) Squamous cell lung cancer Code(s): C34.90 - MALIGNANT NEOPLASM OF UNSP PART OF UNSP BRONCHUS OR LUNG
[2019-03-31] MEDS: ROSUVASTATIN CA 40 MG TABLET PO SCH (21:48)
[2019-03-31] MEDS: ZOLPIDEM TARTRATE 5 MG TABLET PO PRN (23:24)
[2019-04-01] MEDS ORDERED: PIPERACILLIN/TAZOBACTAM 3.375 GM VIAL IVPB ONE ×3 (02:03→16:46)
[2019-04-01] MEDS ORDERED: DEXTROSE 5%-WATER - 50 ML IVPB ONE ×3 (02:03→16:46)
[2019-04-01] MEDS: PIPERACILLIN/TAZOB 3.375 GM 3.375 GM in DEXTROSE 5%-WATER - 50 ML IVPB SCH ×3 (02:06→18:05)
[2019-04-01] MEDS ORDERED: ACETAMINOPHEN 500 MG TABLET (FP) PO ONE (02:56)
[2019-04-01] MEDS: ONDANSETRON 8 MG TABLET (FP) PO SCH ×3 (06:16→21:12)
[2019-04-01] MEDS: NYSTATIN 500,000 UNITS TABLET PO SCH ×3 (06:17→21:12)
[2019-04-01 08:25] LABS: ALBUMIN 2.6 g/dl (3.4-5.0); BILIRUBIN,TOTAL 0.4 mg/dL (0.2-1); BLOOD UREA NITROGEN 7.5 mg/dL (7-18); CREATININE 0.8 mg/dL (0.55-1.3); POTASSIUM 3.6 mmol/L (3.5-5.1); TOT PROT 5.7 g/dl (6.4-8.2)
[2019-04-01 08:56] LABS: BASO % 0.1 % (0-2.0); EOS % 0.9 % (0-4.5); HEMATOCRIT 24.4 % (35.4-49); LYMPH % 17.4 % (8-40); MCH 30.4 pg (25.7-33.7); MCHC 32.6 g/dl (32.0-35.9); MEAN CELL VOLUME 93.4 fl (80-96); MEAN PLT VOLUME 7.9 fl (7.5-11.1); MONO % 1.1 % (3.8-10.2); NEUT % 80.5 % (42.8-82.8); PLATELET COUNT 95 K/MM3 (134-434); RBC 2.61 M/mm3 (4.00-5.60); RDW 15.1 % (11.9-15.9)
[2019-04-01 09:00] LABS: WHITE BLOOD COUNT 1.9 K/mm3 (4.0-10.0)
[2019-04-01] MEDS ORDERED: PT OWN MED DRAWER 7, Y5N ONE ×4 (09:23→20:57)
[2019-04-01] MEDS: ENOXAPARIN NA (PORCINE) 100 MG/1 ML DISP.SYRIN SQ SCH ×2 (09:44→21:11)
[2019-04-01] MEDS: morphine SO4 SUSTAINED ACTING 30 MG TABLET.SA PO SCH ×2 (09:44→21:11)
[2019-04-01] MEDS: PANTOPRAZOLE 40 MG TABLET (FP) PO SCH (09:44)
[2019-04-01] MEDS: GABAPENTIN 300 MG CAPSULE (FP) PO SCH ×2 (09:45→21:11)
[2019-04-01] MEDS ORDERED: ERGOCALCIFEROL (VIT D2) 50,000 UNIT (1.25 MG) CAPSULE PO SCH (10:00)
[2019-04-01] MEDS: SOTALOL HCL 80 MG TABLET (FP) PO SCH ×2 (11:11→21:12)
[2019-04-01] MEDS: oxyCODONE HCL 5 MG TABLET PO PRN ×3 (11:37→23:50)
[2019-04-01] MEDS: ACETAMINOPHEN 325 MG TABLET (FP) PO PRN ×2 (11:38→21:11)
--- NOTE | 2019-04-01 11:47 | PN ---
Progress Note, Physician Chief Complaint: Not in distress Sitting BP stable History of Present Illness: Patient was seen and examined. Awake and alert. Chart was reviewed Denies chest pain, SOB or palpitations Ventricular rate increased - Current Medication List Current Medications: Active Medications Acetaminophen (Tylenol -) 650 mg PO Q4H PRN PRN Reason: PAIN OR FEVER Last Admin: 04/01/19 11:38 Dose: 650 mg Albuterol Sulfate (Ventolin 0.083% Nebulizer Soln -) 1 amp NEB Q4H PRN PRN Reason: SHORT OF BREATH/WHEEZING Last Admin: 03/31/19 07:57 Dose: 1 amp Diltiazem HCl (Cardizem Cd -) 120 mg PO DAILY [facility] Last Admin: 04/01/19 11:09 Dose: 120 mg Enoxaparin Sodium (Lovenox -) 100 mg SQ BID [facility] Last Admin: 04/01/19 09:44 Dose: 100 mg Ergocalciferol (Drisdol -) 50,000 unit PO Sa [facility] Gabapentin (Neurontin -) 300 mg PO BID [facility] Last Admin: 04/01/19 09:45 Dose: 300 mg Piperacillin Sod/Tazobactam (Sod 3.375 gm/ Dextrose) 50 mls @ 100 mls/hr IVPB Q8H-IV [facility]; Protocol Last Admin: 04/01/19 09:43 Dose: 100 mls/hr Morphine Sulfate (Ms Contin -) 30 mg PO BID [facility] Last Admin: 04/01/19 09:44 Dose: 30 mg Nystatin (Nystatin) 500,000 unit PO TID [facility] Last Admin: 04/01/19 06:17 Dose: 500,000 unit Ondansetron HCl (Zofran -) 8 mg PO TID [facility] Last Admin: 04/01/19 06:16 Dose: 8 mg Oxycodone HCl (Roxicodone -) 30 mg PO Q6H PRN PRN Reason: PAIN LEVEL 6-10 Last Admin: 04/01/19 11:37 Dose: 30 mg Pantoprazole Sodium (Protonix -) 40 mg PO DAILY [facility] Last Admin: 04/01/19 09:44 Dose: 40 mg Rosuvastatin Calcium (Crestor -) 40 mg PO HS [facility] Last Admin: 03/31/19 21:48 Dose: 40 mg Sotalol HCl (Betapace -) 80 mg PO BID [facility] Last Admin: 04/01/19 11:11 Dose: 80 mg Tiotropium [place]/Olodaterol (Stiolto Respimat Inhal [place]) 1 puff IH BID [facility] Last Admin: 03/31/19 21:44 Dose: 1 puff Zolpidem Tartrate (Ambien -) 5 mg PO HS PRN PRN Reason: INSOMNIA Last Admin: 03/31/19 23:24 Dose: 5 mg - Objective Vital Signs: Vital Signs Temperature 99.5 F 04/01/19 08:41 Pulse Rate 116 H 04/01/19 11:11 Respiratory Rate 20 04/01/19 11:11 Blood Pressure 113/69 04/01/19 11:11 O2 Sat by Pulse Oximetry (%) 96 03/31/19 21:00 Eyes: Yes: PERRL HENT: Yes: Atraumatic Neck: Yes: Supple Cardiovascular: Yes: Pulse Irregular, S1, S2 Respiratory: Yes: Diminished Gastrointestinal: Yes: Normal Bowel Sounds, Soft. No: Tenderness Edema: No Labs: CBC, BMP 04/01/19 07:00 04/01/19 07:00 INR, PTT INR 1.23 (0.83-1.09) H 03/28/19 02:00 Problem List - Problems (1) Pneumonia Code(s): J18.9 - PNEUMONIA, UNSPECIFIED ORGANISM Qualifiers: Pneumonia type: due to unspecified organism Laterality: right Lung location: middle lobe of lung Qualified Code(s): J18.1 - Lobar pneumonia, unspecified organism (2) Sepsis Code(s): A41.9 - SEPSIS, UNSPECIFIED ORGANISM Qualifiers: Sepsis type: sepsis due to unspecified organism Sepsis acute organ dysfunction status: without acute organ dysfunction Qualified Code(s): A41.9 - Sepsis, unspecified organism (3) Shortness of breath Code(s): R06.02 - SHORTNESS OF BREATH (4) Acute respiratory failure Code(s): J96.00 - ACUTE RESPIRATORY FAILURE, UNSP W HYPOXIA OR HYPERCAPNIA Qualifiers: Respiratory failure complication: hypoxia Qualified Code(s): J96.01 - Acute respiratory failure with hypoxia (5) Anemia Code(s): D64.9 - ANEMIA, UNSPECIFIED Qualifiers: Anemia type: unspecified type Qualified Code(s): D64.9 - Anemia, unspecified (6) COPD (chronic obstructive pulmonary disease) Code(s): J44.9 - CHRONIC OBSTRUCTIVE PULMONARY DISEASE, UNSPECIFIED Qualifiers: COPD type: unspecified COPD Qualified Code(s): J44.9 - Chronic obstructive pulmonary disease, unspecified (7) Diastolic dysfunction with acute on chronic heart failure Code(s): I50.33 - ACUTE ON CHRONIC DIASTOLIC (CONGESTIVE) HEART FAILURE (8) HTN (hypertension) Code(s): I10 - ESSENTIAL (PRIMARY) HYPERTENSION Qualifiers: Hypertension type: essential hypertension Qualified Code(s): I10 - Essential (primary) hypertension (9) Paroxysmal atrial fibrillation Code(s): I48.0 - PAROXYSMAL ATRIAL FIBRILLATION (10) SVC syndrome Code(s): I87.1 - COMPRESSION OF VEIN (11) Squamous cell lung cancer Code(s): C34.90 - MALIGNANT NEOPLASM OF UNSP PART OF UNSP BRONCHUS OR LUNG Assessment/Plan 1. Post-obstructive pneumonia 2. Anemia post transfusion 3. 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 RUL Lung Mass, moderately differentiated squamous cell carcinoma post chemo/ radiation therapies 5. CAD/coronary artery calcification angina pectoris 6. Diastolic LV dysfunction with class 0 NYHA classification LV failure 7. Paroxysmal Atrial Fibrillation/paroxysmal atrial flutter [id number] score of 1 on anticoagulation on Lovenox 8. HTN/HCVD 9. COPD/emphysema 10. Chronic Hypoxic Respiratory Failure 11. History of Hepatitis C post-treatment 12. OSAS 13. Hyperlipidemia PLAN: 1. Continue Lovenox 100 mg BID with close monitoring of Hgb level 2. Continue Betapace 80 mg BID with close monitoring of QTc interval 3. Continue Cardizem CD 120 mg QD as tolerated 4. Continue Crestor 40 mg QHS 5. Antibiotic coverage, bronchodilator and O2 to keep SpO2 >90% Further plans are to follow Eladio Li MD
--- NOTE | 2019-04-01 12:05 | PN ---
Progress Note (short form) - Note Progress Note: PULMONARY Febrile overnight but afebrile this AM. +nonproductive cough. Vital Signs Period Temp Pulse Resp BP Sys/Gtz Pulse Ox Last 24 Hr 98.1 F-103.0 F 104-127 19-22 91-113/59-71 96 Gen: NAD at rest Heart: RRR Lung: decreased breath sounds at the bases Abd: soft, nontender Ext: no edema CBC, BMP 04/01/19 07:00 04/01/19 07:00 Active Medications Acetaminophen (Tylenol -) 650 mg PO Q4H PRN PRN Reason: PAIN OR FEVER Last Admin: 04/01/19 11:38 Dose: 650 mg Albuterol Sulfate (Ventolin 0.083% Nebulizer Soln -) 1 amp NEB Q4H PRN PRN Reason: SHORT OF BREATH/WHEEZING Last Admin: 03/31/19 07:57 Dose: 1 amp Diltiazem HCl (Cardizem Cd -) 120 mg PO DAILY [facility] Last Admin: 04/01/19 11:09 Dose: 120 mg Enoxaparin Sodium (Lovenox -) 100 mg SQ BID [facility] Last Admin: 04/01/19 09:44 Dose: 100 mg Ergocalciferol (Drisdol -) 50,000 unit PO Sa [facility] Gabapentin (Neurontin -) 300 mg PO BID [facility] Last Admin: 04/01/19 09:45 Dose: 300 mg Piperacillin Sod/Tazobactam (Sod 3.375 gm/ Dextrose) 50 mls @ 100 mls/hr IVPB Q8H-IV [facility]; Protocol Last Admin: 04/01/19 09:43 Dose: 100 mls/hr Morphine Sulfate (Ms Contin -) 30 mg PO BID [facility] Last Admin: 04/01/19 09:44 Dose: 30 mg Nystatin (Nystatin) 500,000 unit PO TID [facility] Last Admin: 04/01/19 06:17 Dose: 500,000 unit Ondansetron HCl (Zofran -) 8 mg PO TID [facility] Last Admin: 04/01/19 06:16 Dose: 8 mg Oxycodone HCl (Roxicodone -) 30 mg PO Q6H PRN PRN Reason: PAIN LEVEL 6-10 Last Admin: 04/01/19 11:37 Dose: 30 mg Pantoprazole Sodium (Protonix -) 40 mg PO DAILY [facility] Last Admin: 04/01/19 09:44 Dose: 40 mg Rosuvastatin Calcium (Crestor -) 40 mg PO HS [facility] Last Admin: 03/31/19 21:48 Dose: 40 mg Sotalol HCl (Betapace -) 80 mg PO BID [facility] Last Admin: 04/01/19 11:11 Dose: 80 mg Tiotropium [place]/Olodaterol (Stiolto Respimat Inhal [place]) 1 puff IH BID [facility] Last Admin: 03/31/19 21:44 Dose: 1 puff Zolpidem Tartrate (Ambien -) 5 mg PO HS PRN PRN Reason: INSOMNIA Last Admin: 03/31/19 23:24 Dose: 5 mg A/P r/o Post Obstructive Pneumonia Leukopenia NSCLC on chemo Chronic Hypoxic Respiratory Failure COPD Pulmonary HTN h/o SVC syndrome Paroxysmal Atrial fibrillation Lactic Acidosis HTN Hyperlipidemia LISA - continue antibiotics per ID - f/u cultures - inhaled bronchodilators - O2 to keep SpO2 >90% - rate controlled - continue anticoagulation
[2019-04-01] MEDS: TIOTROPIUM/OLODATEROL HCL (STIOLTO) 4 GM INHALER IH SCH ×2 (13:43→22:44)
[2019-04-01 14:58] LABS: PLATELET ESTIMATE DECREASED
--- NOTE | 2019-04-01 15:36 | PN ---
Progress Note, Physician Chief Complaint: Pneumonia Lung CA History of Present Illness: Previous notes and events reviewed awake and alert NAD complain of cough with pleuritic pain WBC~1.9 low grade fever during the night - Current Medication List Current Medications: Active Medications Acetaminophen (Tylenol -) 650 mg PO Q4H PRN PRN Reason: PAIN OR FEVER Last Admin: 04/01/19 11:38 Dose: 650 mg Albuterol Sulfate (Ventolin 0.083% Nebulizer Soln -) 1 amp NEB Q4H PRN PRN Reason: SHORT OF BREATH/WHEEZING Last Admin: 03/31/19 07:57 Dose: 1 amp Diltiazem HCl (Cardizem Cd -) 120 mg PO DAILY [facility] Last Admin: 04/01/19 11:09 Dose: 120 mg Enoxaparin Sodium (Lovenox -) 100 mg SQ BID [facility] Last Admin: 04/01/19 09:44 Dose: 100 mg Ergocalciferol (Drisdol -) 50,000 unit PO Sa [facility] Gabapentin (Neurontin -) 300 mg PO BID [facility] Last Admin: 04/01/19 09:45 Dose: 300 mg Piperacillin Sod/Tazobactam (Sod 3.375 gm/ Dextrose) 50 mls @ 100 mls/hr IVPB Q8H-IV ALONDRA; Protocol Last Admin: 04/01/19 09:43 Dose: 100 mls/hr Morphine Sulfate (Ms Contin -) 30 mg PO BID [facility] Last Admin: 04/01/19 09:44 Dose: 30 mg Nystatin (Nystatin) 500,000 unit PO TID [facility] Last Admin: 04/01/19 13:42 Dose: 500,000 unit Ondansetron HCl (Zofran -) 8 mg PO TID [facility] Last Admin: 04/01/19 13:42 Dose: 8 mg Oxycodone HCl (Roxicodone -) 30 mg PO Q6H PRN PRN Reason: PAIN LEVEL 6-10 Last Admin: 04/01/19 11:37 Dose: 30 mg Pantoprazole Sodium (Protonix -) 40 mg PO DAILY [facility] Last Admin: 04/01/19 09:44 Dose: 40 mg Rosuvastatin Calcium (Crestor -) 40 mg PO HS [facility] Last Admin: 03/31/19 21:48 Dose: 40 mg Sotalol HCl (Betapace -) 80 mg PO BID [facility] Last Admin: 04/01/19 11:11 Dose: 80 mg Tiotropium [place]/Olodaterol (Stiolto Respimat Inhal [place]) 1 puff IH BID [facility] Last Admin: 04/01/19 13:43 Dose: 1 puff Zolpidem Tartrate (Ambien -) 5 mg PO HS PRN PRN Reason: INSOMNIA Last Admin: 03/31/19 23:24 Dose: 5 mg - Objective Vital Signs: Vital Signs Temperature 98.9 F 04/01/19 13:39 Pulse Rate 100 H 04/01/19 13:39 Respiratory Rate 20 04/01/19 13:39 Blood Pressure 100/52 L 04/01/19 13:39 O2 Sat by Pulse Oximetry (%) 97 04/01/19 09:00 Constitutional: Yes: No Distress, Calm Eyes: Yes: Conjunctiva Clear HENT: Yes: Atraumatic Cardiovascular: Yes: Regular Rate and Rhythm Respiratory: Yes: Regular, Diminished, On Nasal O2 Gastrointestinal: Yes: Normal Bowel Sounds, Soft Musculoskeletal: Yes: Muscle Weakness Extremities: Yes: WNL Edema: No Neurological: Yes: Alert, Oriented Psychiatric: Yes: Alert, Oriented Labs: CBC, BMP 04/01/19 07:00 04/01/19 07:00 INR, PTT INR 1.23 (0.83-1.09) H 03/28/19 02:00 Microbiology 03/28/19 02:00 Blood - Peripheral Venous Blood Culture - Preliminary NO GROWTH OBTAINED AFTER 96 HOURS, INCUBATION TO CONTINUE FOR 1 DAYS. 03/28/19 02:00 Blood - Peripheral Venous Blood Culture - Preliminary NO GROWTH OBTAINED AFTER 96 HOURS, INCUBATION TO CONTINUE FOR 1 DAYS. 03/28/19 18:40 Urine For Antigen Detection Legionella Antigen - Final 03/28/19 18:40 Urine For Antigen Detection Streptococcus pneumoniae Antigen (M - Final 03/28/19 05:20 Urine - Urine Clean Catch Urine Culture - Final NO GROWTH OBTAINED Problem List - Problems (1) Lactic acidosis Assessment/Plan: -LA 2.2 down to 1.6 -resolved Code(s): E87.2 - ACIDOSIS (2) Pneumonia Assessment/Plan: -Chest CT scan shows small right effusion which may be partially loculated and shows some extension into the fissures -Pulm and ID on board -bronchodilators -Zosyn -BC neg -Urine Legionella neg -no leukocytosis -febrile this AM Code(s): J18.9 - PNEUMONIA, UNSPECIFIED ORGANISM Qualifiers: Pneumonia type: due to unspecified organism Laterality: right Lung location: middle lobe of lung Qualified Code(s): J18.1 - Lobar pneumonia, unspecified organism (3) Sepsis Assessment/Plan: -Chest CT scan shows small right effusion which may be partially loculated and shows some extension into the fissures -ID on board -bronchodilators -Zosyn -BC neg -Urine Legionella neg -UC neg -no leukocytosis -febrile this AM -LA 1.6 Code(s): A41.9 - SEPSIS, UNSPECIFIED ORGANISM Qualifiers: Sepsis type: sepsis due to unspecified organism Sepsis acute organ dysfunction status: without acute organ dysfunction Qualified Code(s): A41.9 - Sepsis, unspecified organism (4) Afib Assessment/Plan: -Lovenox Code(s): I48.91 - UNSPECIFIED ATRIAL FIBRILLATION (5) COPD (chronic obstructive pulmonary disease) Assessment/Plan: -Pulm on board -bronchodilators -keep SpO2 >90% -O2 via NC -Stiolto -Chest CT scan shows advanced COPD Code(s): J44.9 - CHRONIC OBSTRUCTIVE PULMONARY DISEASE, UNSPECIFIED Qualifiers: COPD type: unspecified COPD Qualified Code(s): J44.9 - Chronic obstructive pulmonary disease, unspecified (6) DVT (deep venous thrombosis) Assessment/Plan: -Lovenox Code(s): I82.409 - ACUTE EMBOLISM AND THOMBOS UNSP DEEP VN UNSP LOWER EXTREMITY Qualifiers: DVT location: upper extremity Affected thrombotic vein of extremity: other upper extremity vein Chronicity: acute Laterality: right Qualified Code(s) : I82.621 - Acute embolism and thrombosis of deep veins of right upper extremity (7) HTN (hypertension) Assessment/Plan: -Sotalol -low Na diet Code(s): I10 - ESSENTIAL (PRIMARY) HYPERTENSION Qualifiers: Hypertension type: essential hypertension Qualified Code(s): I10 - Essential (primary) hypertension (8) Lung cancer Assessment/Plan: -Oncology on board -receiving chemotherapy -Chest CT scan shows multiple lung nodules -WBC~1.9 Code(s): C34.90 - MALIGNANT NEOPLASM OF UNSP PART OF UNSP BRONCHUS OR LUNG Qualifiers: Laterality: right Lung location: upper lobe of lung Qualified Code(s): C34.11 - Malignant neoplasm of upper lobe, right bronchus or lung Assessment/Plan see problem list
[2019-04-01 17:28] LABS: BASO % 0.7 % (0-2.0); EOS % 1.8 % (0-4.5); HEMATOCRIT 25.4 % (35.4-49); HEMOGLOBIN 8.3 GM/dL (11.7-16.9); LYMPH % 23.9 % (8-40); MCH 30.6 pg (25.7-33.7); MCHC 32.7 g/dl (32.0-35.9); MEAN CELL VOLUME 93.8 fl (80-96); MEAN PLT VOLUME 7.6 fl (7.5-11.1); MONO % 2.9 % (3.8-10.2); NEUT % 70.7 % (42.8-82.8); PLATELET COUNT 83 K/MM3 (134-434); RBC 2.71 M/mm3 (4.00-5.60); RDW 15.1 % (11.9-15.9)
[2019-04-01 17:33] LABS: WHITE BLOOD COUNT 1.1 K/mm3 (4.0-10.0)
[2019-04-01 18:03] LABS: PLATELET ESTIMATE ADEQUATE
--- NOTE | 2019-04-01 19:36 | PN ---
Progress Note, Physician History of Present Illness: No complaints. Feels well. - Current Medication List Current Medications: Active Medications Acetaminophen (Tylenol -) 650 mg PO Q4H PRN PRN Reason: PAIN OR FEVER Last Admin: 04/01/19 11:38 Dose: 650 mg Albuterol Sulfate (Ventolin 0.083% Nebulizer Soln -) 1 amp NEB Q4H PRN PRN Reason: SHORT OF BREATH/WHEEZING Last Admin: 03/31/19 07:57 Dose: 1 amp Diltiazem HCl (Cardizem Cd -) 120 mg PO DAILY [facility] Last Admin: 04/01/19 11:09 Dose: 120 mg Enoxaparin Sodium (Lovenox -) 100 mg SQ BID [facility] Last Admin: 04/01/19 09:44 Dose: 100 mg Ergocalciferol (Drisdol -) 50,000 unit PO Sa [facility] Last Admin: 04/01/19 17:13 Dose: Not Given Gabapentin (Neurontin -) 300 mg PO BID [facility] Last Admin: 04/01/19 09:45 Dose: 300 mg Piperacillin Sod/Tazobactam (Sod 3.375 gm/ Dextrose) 50 mls @ 100 mls/hr IVPB Q8H-IV [facility]; Protocol Last Admin: 04/01/19 18:05 Dose: 100 mls/hr Morphine Sulfate (Ms Contin -) 30 mg PO BID [facility] Last Admin: 04/01/19 09:44 Dose: 30 mg Nystatin (Nystatin) 500,000 unit PO TID [facility] Last Admin: 04/01/19 13:42 Dose: 500,000 unit Ondansetron HCl (Zofran -) 8 mg PO TID [facility] Last Admin: 04/01/19 13:42 Dose: 8 mg Oxycodone HCl (Roxicodone -) 30 mg PO Q6H PRN PRN Reason: PAIN LEVEL 6-10 Last Admin: 04/01/19 17:46 Dose: 30 mg Pantoprazole Sodium (Protonix -) 40 mg PO DAILY [facility] Last Admin: 04/01/19 09:44 Dose: 40 mg Rosuvastatin Calcium (Crestor -) 40 mg PO HS [facility] Last Admin: 03/31/19 21:48 Dose: 40 mg Sotalol HCl (Betapace -) 80 mg PO BID [facility] Last Admin: 04/01/19 11:11 Dose: 80 mg Tiotropium [place]/Olodaterol (Stiolto Respimat Inhal [place]) 1 puff IH BID [facility] Last Admin: 04/01/19 13:43 Dose: 1 puff Zolpidem Tartrate (Ambien -) 5 mg PO HS PRN PRN Reason: INSOMNIA Last Admin: 03/31/19 23:24 Dose: 5 mg - Objective Vital Signs: Vital Signs Temperature 99.6 F 04/01/19 18:47 Pulse Rate 96 H 04/01/19 18:47 Respiratory Rate 20 04/01/19 18:47 Blood Pressure 96/60 04/01/19 18:47 O2 Sat by Pulse Oximetry (%) 97 04/01/19 09:00 Constitutional: Yes: No Distress Eyes: Yes: Conjunctiva Clear Cardiovascular: Yes: Regular Rate and Rhythm Respiratory: Yes: Regular, CTA Bilaterally Gastrointestinal: Yes: Soft. No: Distention, Tenderness Edema: No Labs: CBC, BMP 04/01/19 17:10 04/01/19 07:00 INR, PTT INR 1.23 (0.83-1.09) H 03/28/19 02:00 Assessment/Plan 62M with COPD, Afib on Eliqus and squamous cell ca of lung c/b SVC syndrome s/p stent and RT, on lovenox, s/p carboplatin/taxol, now on gemzar (C2D8 on 03/27) admitted with fever. ?post-obstructive pneumonitis, on Abx. Downtrending counts due to chemotherapy. ANC 1500. Continue to monitor.
[2019-04-01] MEDS: ROSUVASTATIN CA 40 MG TABLET PO SCH (22:45)
[2019-04-02] MEDS ORDERED: PIPERACILLIN/TAZOBACTAM 3.375 GM VIAL IVPB ONE ×3 (01:59→16:27)
[2019-04-02] MEDS ORDERED: DEXTROSE 5%-WATER - 50 ML IVPB ONE ×3 (01:59→16:27)
[2019-04-02] MEDS: PIPERACILLIN/TAZOB 3.375 GM 3.375 GM in DEXTROSE 5%-WATER - 50 ML IVPB SCH ×3 (02:01→18:04)
[2019-04-02] MEDS: ONDANSETRON 8 MG TABLET (FP) PO SCH ×3 (06:03→21:15)
[2019-04-02] MEDS: NYSTATIN 500,000 UNITS TABLET PO SCH ×3 (06:03→21:15)
[2019-04-02] MEDS: ACETAMINOPHEN 325 MG TABLET (FP) PO PRN ×3 (06:03→21:15)
[2019-04-02] MEDS ORDERED: PT OWN MED DRAWER 7, Y5N ONE ×3 (08:27→21:30)
[2019-04-02 08:40] LABS: HEMATOCRIT 23.6 % (35.4-49); HEMOGLOBIN 7.7 GM/dL (11.7-16.9); MCH 30.5 pg (25.7-33.7); MCHC 32.8 g/dl (32.0-35.9); MEAN PLT VOLUME 7.7 fl (7.5-11.1); PLATELET COUNT 71 K/MM3 (134-434); RBC 2.54 M/mm3 (4.00-5.60); RDW 15.1 % (11.9-15.9)
[2019-04-02 09:00] LABS: WHITE BLOOD COUNT 1.2 K/mm3 (4.0-10.0)
--- NOTE | 2019-04-02 09:00 | PN ---
Progress Note, Physician Chief Complaint: Not in distress History of Present Illness: Patient was seen and examined. Awake and alert. Chart was reviewed Denies chest pain, SOB or palpitations Tolerating therapy - Current Medication List Current Medications: Active Medications Acetaminophen (Tylenol -) 650 mg PO Q4H PRN PRN Reason: PAIN OR FEVER Last Admin: 04/02/19 06:03 Dose: 650 mg Albuterol Sulfate (Ventolin 0.083% Nebulizer Soln -) 1 amp NEB Q4H PRN PRN Reason: SHORT OF BREATH/WHEEZING Last Admin: 03/31/19 07:57 Dose: 1 amp Diltiazem HCl (Cardizem Cd -) 120 mg PO DAILY [facility] Last Admin: 04/01/19 11:09 Dose: 120 mg Enoxaparin Sodium (Lovenox -) 100 mg SQ BID [facility] Last Admin: 04/01/19 21:11 Dose: 100 mg Ergocalciferol (Drisdol -) 50,000 unit PO Sa [facility] Last Admin: 04/01/19 17:13 Dose: Not Given Gabapentin (Neurontin -) 300 mg PO BID [facility] Last Admin: 04/01/19 21:11 Dose: 300 mg Piperacillin Sod/Tazobactam (Sod 3.375 gm/ Dextrose) 50 mls @ 100 mls/hr IVPB Q8H-IV [facility]ONDRA; Protocol Last Admin: 04/02/19 02:01 Dose: 100 mls/hr Morphine Sulfate (Ms Contin -) 30 mg PO BID [facility] Last Admin: 04/01/19 21:11 Dose: 30 mg Nystatin (Nystatin) 500,000 unit PO TID [facility] Last Admin: 04/02/19 06:03 Dose: 500,000 unit Ondansetron HCl (Zofran -) 8 mg PO TID [facility] Last Admin: 04/02/19 06:03 Dose: 8 mg Oxycodone HCl (Roxicodone -) 30 mg PO Q6H PRN PRN Reason: PAIN LEVEL 6-10 Last Admin: 04/01/19 23:50 Dose: 30 mg Pantoprazole Sodium (Protonix -) 40 mg PO DAILY [facility] Last Admin: 04/01/19 09:44 Dose: 40 mg Rosuvastatin Calcium (Crestor -) 40 mg PO HS [facility] Last Admin: 04/01/19 22:45 Dose: 40 mg Sotalol HCl (Betapace -) 80 mg PO BID [facility] Last Admin: 04/01/19 21:12 Dose: Not Given Tiotropium [place]/Olodaterol (Stiolto Respimat Inhal [place]) 1 puff IH BID [facility] Last Admin: 04/01/19 22:44 Dose: 1 puff Zolpidem Tartrate (Ambien -) 5 mg PO HS PRN PRN Reason: INSOMNIA Last Admin: 03/31/19 23:24 Dose: 5 mg - Objective Vital Signs: Vital Signs Temperature 99.2 F 04/02/19 07:09 Pulse Rate 78 04/02/19 06:09 Respiratory Rate 20 04/02/19 06:09 Blood Pressure 123/56 L 04/02/19 06:09 O2 Sat by Pulse Oximetry (%) 97 04/01/19 21:00 Eyes: Yes: PERRL HENT: Yes: Atraumatic Neck: Yes: Supple Cardiovascular: Yes: Regular Rate and Rhythm, S1, S2 Respiratory: Yes: Diminished Gastrointestinal: Yes: Normal Bowel Sounds, Soft. No: Tenderness Edema: No Labs: Problem List - Problems (1) Pneumonia Code(s): J18.9 - PNEUMONIA, UNSPECIFIED ORGANISM Qualifiers: Pneumonia type: due to unspecified organism Laterality: right Lung location: middle lobe of lung Qualified Code(s): J18.1 - Lobar pneumonia, unspecified organism (2) Sepsis Code(s): A41.9 - SEPSIS, UNSPECIFIED ORGANISM Qualifiers: Sepsis type: sepsis due to unspecified organism Sepsis acute organ dysfunction status: without acute organ dysfunction Qualified Code(s): A41.9 - Sepsis, unspecified organism (3) Shortness of breath Code(s): R06.02 - SHORTNESS OF BREATH (4) Acute respiratory failure Code(s): J96.00 - ACUTE RESPIRATORY FAILURE, UNSP W HYPOXIA OR HYPERCAPNIA Qualifiers: Respiratory failure complication: hypoxia Qualified Code(s): J96.01 - Acute respiratory failure with hypoxia (5) Anemia Code(s): D64.9 - ANEMIA, UNSPECIFIED Qualifiers: Anemia type: unspecified type Qualified Code(s): D64.9 - Anemia, unspecified (6) COPD (chronic obstructive pulmonary disease) Code(s): J44.9 - CHRONIC OBSTRUCTIVE PULMONARY DISEASE, UNSPECIFIED Qualifiers: COPD type: unspecified COPD Qualified Code(s): J44.9 - Chronic obstructive pulmonary disease, unspecified (7) Diastolic dysfunction with acute on chronic heart failure Code(s): I50.33 - ACUTE ON CHRONIC DIASTOLIC (CONGESTIVE) HEART FAILURE (8) HTN (hypertension) Code(s): I10 - ESSENTIAL (PRIMARY) HYPERTENSION Qualifiers: Hypertension type: essential hypertension Qualified Code(s): I10 - Essential (primary) hypertension (9) Paroxysmal atrial fibrillation Code(s): I48.0 - PAROXYSMAL ATRIAL FIBRILLATION (10) SVC syndrome Code(s): I87.1 - COMPRESSION OF VEIN (11) Squamous cell lung cancer Code(s): C34.90 - MALIGNANT NEOPLASM OF UNSP PART OF UNSP BRONCHUS OR LUNG Assessment/Plan 1. Post-obstructive pneumonia 2. Anemia post transfusion 3. 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 CAD/coronary artery calcification angina pectoris 6. Diastolic LV dysfunction with class 0 NYHA classification LV failure 7. Paroxysmal Atrial Fibrillation/paroxysmal atrial flutter [id number] score of 1 on anticoagulation on Lovenox 8. HTN/HCVD 9. COPD/emphysema 10. Chronic Hypoxic Respiratory Failure 11. History of Hepatitis C 12. OSAS 13. Hyperlipidemia PLAN: 1. Continue Lovenox 100 mg BID 2. Continue Betapace 80 mg BID with close monitoring of QTc interval 3. Continue Cardizem CD 120 mg QD as tolerated 4. Continue Crestor 40 mg QHS 5. Antibiotic coverage, bronchodilator and O2 to keep SpO2 >90% Further plans are to follow Eladio Li MD
[2019-04-02 09:10] LABS: ALBUMIN 2.6 g/dl (3.4-5.0); BILIRUBIN,TOTAL 0.2 mg/dL (0.2-1); BLOOD UREA NITROGEN 8.5 mg/dL (7-18); CALCIUM 8.2 mg/dL (8.5-10.1); CREATININE 0.9 mg/dL (0.55-1.3); POTASSIUM 3.6 mmol/L (3.5-5.1)
[2019-04-02] MEDS: ENOXAPARIN NA (PORCINE) 100 MG/1 ML DISP.SYRIN SQ SCH ×2 (10:33→21:14)
[2019-04-02] MEDS: morphine SO4 SUSTAINED ACTING 30 MG TABLET.SA PO SCH ×2 (10:33→21:15)
[2019-04-02] MEDS: GABAPENTIN 300 MG CAPSULE (FP) PO SCH ×2 (10:33→21:15)
[2019-04-02] MEDS: PANTOPRAZOLE 40 MG TABLET (FP) PO SCH (10:33)
[2019-04-02] MEDS: SOTALOL HCL 80 MG TABLET (FP) PO SCH ×2 (10:33→22:21)
[2019-04-02] MEDS: TIOTROPIUM/OLODATEROL HCL (STIOLTO) 4 GM INHALER IH SCH ×2 (10:34→21:16)
--- NOTE | 2019-04-02 12:03 | PN ---
Progress Note (short form) - Note Progress Note: PULMONARY Febrile overnight but afebrile this AM. +nonproductive cough. Vital Signs Period Temp Pulse Resp BP Sys/Gtz Pulse Ox Last 24 Hr 98.4 F-101.7 F 78-110 20-22 89-123/46-62 97 Gen: NAD at rest Heart: RRR Lung: decreased breath sounds at the bases Abd: soft, nontender Ext: no edema CBC, BMP 04/02/19 07:45 04/02/19 07:45 Active Medications Acetaminophen (Tylenol -) 650 mg PO Q4H PRN PRN Reason: PAIN OR FEVER Last Admin: 04/02/19 10:43 Dose: 650 mg Albuterol Sulfate (Ventolin 0.083% Nebulizer Soln -) 1 amp NEB Q4H PRN PRN Reason: SHORT OF BREATH/WHEEZING Last Admin: 03/31/19 07:57 Dose: 1 amp Diltiazem HCl (Cardizem Cd -) 120 mg PO DAILY [facility] Last Admin: 04/02/19 11:46 Dose: Not Given Enoxaparin Sodium (Lovenox -) 100 mg SQ BID [facility] Last Admin: 04/02/19 10:33 Dose: 100 mg Ergocalciferol (Drisdol -) 50,000 unit PO Sa [facility] Last Admin: 04/01/19 17:13 Dose: Not Given Gabapentin (Neurontin -) 300 mg PO BID [facility] Last Admin: 04/02/19 10:33 Dose: 300 mg Piperacillin Sod/Tazobactam (Sod 3.375 gm/ Dextrose) 50 mls @ 100 mls/hr IVPB Q8H-IV [facility]ON[facility]; Protocol Last Admin: 04/02/19 10:34 Dose: 100 mls/hr Morphine Sulfate (Ms Contin -) 30 mg PO BID [facility] Last Admin: 04/02/19 10:33 Dose: 30 mg Nystatin (Nystatin) 500,000 unit PO TID [facility] Last Admin: 04/02/19 06:03 Dose: 500,000 unit Ondansetron HCl (Zofran -) 8 mg PO TID [facility] Last Admin: 04/02/19 06:03 Dose: 8 mg Oxycodone HCl (Roxicodone -) 30 mg PO Q6H PRN PRN Reason: PAIN LEVEL 6-10 Last Admin: 04/01/19 23:50 Dose: 30 mg Pantoprazole Sodium (Protonix -) 40 mg PO DAILY [facility] Last Admin: 04/02/19 10:33 Dose: 40 mg Rosuvastatin Calcium (Crestor -) 40 mg PO HS [facility] Last Admin: 04/01/19 22:45 Dose: 40 mg Sotalol HCl (Betapace -) 80 mg PO BID [facility] Last Admin: 04/02/19 10:33 Dose: 80 mg Tiotropium [place]/Olodaterol (Stiolto Respimat Inhal [place]) 1 puff IH BID [facility] Last Admin: 04/02/19 10:34 Dose: 1 puff Zolpidem Tartrate (Ambien -) 5 mg PO HS PRN PRN Reason: INSOMNIA Last Admin: 03/31/19 23:24 Dose: 5 mg A/P r/o Post Obstructive Pneumonia Leukopenia NSCLC on chemo Chronic Hypoxic Respiratory Failure COPD Pulmonary HTN h/o SVC syndrome Paroxysmal Atrial fibrillation Lactic Acidosis HTN Hyperlipidemia LISA - continue antibiotics per ID - monitor WBC - inhaled bronchodilators - O2 to keep SpO2 >90% - rate controlled - continue anticoagulation
[2019-04-02] MEDS: oxyCODONE HCL 5 MG TABLET PO PRN ×3 (12:12→23:15)
--- NOTE | 2019-04-02 14:56 | PN ---
Progress Note, Physician Chief Complaint: Pneumonia Lung CA History of Present Illness: Previous notes and events reviewed awake and alert NAD complain of cough with pleuritic pain WBC~1.2, placed on neutropenic precautions febrile with tmax 100.7F complain of loose BM - Current Medication List Current Medications: Active Medications Acetaminophen (Tylenol -) 650 mg PO Q4H PRN PRN Reason: PAIN OR FEVER Last Admin: 04/02/19 10:43 Dose: 650 mg Albuterol Sulfate (Ventolin 0.083% Nebulizer Soln -) 1 amp NEB Q4H PRN PRN Reason: SHORT OF BREATH/WHEEZING Last Admin: 03/31/19 07:57 Dose: 1 amp Diltiazem HCl (Cardizem Cd -) 120 mg PO DAILY [facility] Last Admin: 04/02/19 11:46 Dose: Not Given Enoxaparin Sodium (Lovenox -) 100 mg SQ BID [facility] Last Admin: 04/02/19 10:33 Dose: 100 mg Ergocalciferol (Drisdol -) 50,000 unit PO Sa [facility] Last Admin: 04/01/19 17:13 Dose: Not Given Gabapentin (Neurontin -) 300 mg PO BID [facility] Last Admin: 04/02/19 10:33 Dose: 300 mg Piperacillin Sod/Tazobactam (Sod 3.375 gm/ Dextrose) 50 mls @ 100 mls/hr IVPB Q8H-IV [facility]ON[facility]; Protocol Last Admin: 04/02/19 10:34 Dose: 100 mls/hr Morphine Sulfate (Ms Contin -) 30 mg PO BID [facility] Last Admin: 04/02/19 10:33 Dose: 30 mg Nystatin (Nystatin) 500,000 unit PO TID [facility] Last Admin: 04/02/19 13:37 Dose: 500,000 unit Ondansetron HCl (Zofran -) 8 mg PO TID [facility] Last Admin: 04/02/19 13:37 Dose: 8 mg Oxycodone HCl (Roxicodone -) 30 mg PO Q6H PRN PRN Reason: PAIN LEVEL 6-10 Last Admin: 04/02/19 12:12 Dose: 30 mg Pantoprazole Sodium (Protonix -) 40 mg PO DAILY [facility] Last Admin: 04/02/19 10:33 Dose: 40 mg Rosuvastatin Calcium (Crestor -) 40 mg PO HS [facility] Last Admin: 04/01/19 22:45 Dose: 40 mg Sotalol HCl (Betapace -) 80 mg PO BID [facility] Last Admin: 04/02/19 10:33 Dose: 80 mg Tiotropium [place]/Olodaterol (Stiolto Respimat Inhal [place]) 1 puff IH BID [facility] Last Admin: 04/02/19 10:34 Dose: 1 puff Zolpidem Tartrate (Ambien -) 5 mg PO HS PRN PRN Reason: INSOMNIA Last Admin: 03/31/19 23:24 Dose: 5 mg - Objective Vital Signs: Vital Signs Temperature 99.3 F 04/02/19 14:03 Pulse Rate 98 H 04/02/19 14:03 Respiratory Rate 20 04/02/19 14:03 Blood Pressure 102/51 L 04/02/19 14:03 O2 Sat by Pulse Oximetry (%) 98 04/02/19 09:00 Constitutional: Yes: No Distress, Calm Eyes: Yes: Conjunctiva Clear HENT: Yes: Atraumatic Cardiovascular: Yes: Regular Rate and Rhythm Respiratory: Yes: Regular, CTA Bilaterally Gastrointestinal: Yes: Normal Bowel Sounds, Soft Musculoskeletal: Yes: Muscle Weakness Extremities: Yes: WNL Edema: No Neurological: Yes: Alert, Oriented Psychiatric: Yes: Alert, Oriented Labs: CBC, BMP 04/02/19 07:45 04/02/19 07:45 INR, PTT INR 1.23 (0.83-1.09) H 03/28/19 02:00 Microbiology 03/28/19 02:00 Blood - Peripheral Venous Blood Culture - Final NO GROWTH AFTER 5 DAYS INCUBATION 03/28/19 02:00 Blood - Peripheral Venous Blood Culture - Final NO GROWTH AFTER 5 DAYS INCUBATION 03/28/19 18:40 Urine For Antigen Detection Legionella Antigen - Final 03/28/19 18:40 Urine For Antigen Detection Streptococcus pneumoniae Antigen (M - Final 03/28/19 05:20 Urine - Urine Clean Catch Urine Culture - Final NO GROWTH OBTAINED Problem List - Problems (1) Lactic acidosis Assessment/Plan: -LA 2.2 down to 1.6 -resolved Code(s): E87.2 - ACIDOSIS (2) Pneumonia Assessment/Plan: -Chest CT scan shows small right effusion which may be partially loculated and shows some extension into the fissures -Pulm and ID on board -bronchodilators -Zosyn -BC neg -Urine Legionella neg -no leukocytosis -febrile this AM Code(s): J18.9 - PNEUMONIA, UNSPECIFIED ORGANISM Qualifiers: Pneumonia type: due to unspecified organism Laterality: right Lung location: middle lobe of lung Qualified Code(s): J18.1 - Lobar pneumonia, unspecified organism (3) Sepsis Assessment/Plan: -Chest CT scan shows small right effusion which may be partially loculated and shows some extension into the fissures -ID on board -bronchodilators -Zosyn -BC neg -Urine Legionella neg -UC neg -no leukocytosis -febrile this AM -LA 1.6 Code(s): A41.9 - SEPSIS, UNSPECIFIED ORGANISM Qualifiers: Sepsis type: sepsis due to unspecified organism Sepsis acute organ dysfunction status: without acute organ dysfunction Qualified Code(s): A41.9 - Sepsis, unspecified organism (4) Afib Assessment/Plan: -Lovenox Code(s): I48.91 - UNSPECIFIED ATRIAL FIBRILLATION (5) COPD (chronic obstructive pulmonary disease) Assessment/Plan: -Pulm on board -bronchodilators -keep SpO2 >90% -O2 via NC -Stiolto -Chest CT scan shows advanced COPD Code(s): J44.9 - CHRONIC OBSTRUCTIVE PULMONARY DISEASE, UNSPECIFIED Qualifiers: COPD type: unspecified COPD Qualified Code(s): J44.9 - Chronic obstructive pulmonary disease, unspecified (6) DVT (deep venous thrombosis) Assessment/Plan: -Lovenox Code(s): I82.409 - ACUTE EMBOLISM AND THOMBOS UNSP DEEP VN UNSP LOWER EXTREMITY Qualifiers: DVT location: upper extremity Affected thrombotic vein of extremity: other upper extremity vein Chronicity: acute Laterality: right Qualified Code(s) : I82.621 - Acute embolism and thrombosis of deep veins of right upper extremity (7) HTN (hypertension) Assessment/Plan: -Sotalol -low Na diet Code(s): I10 - ESSENTIAL (PRIMARY) HYPERTENSION Qualifiers: Hypertension type: essential hypertension Qualified Code(s): I10 - Essential (primary) hypertension (8) Lung cancer Assessment/Plan: -Oncology on board -receiving chemotherapy -Chest CT scan shows multiple lung nodules -WBC~1.2 -neutropenic precautions Code(s): C34.90 - MALIGNANT NEOPLASM OF UNSP PART OF UNSP BRONCHUS OR LUNG Qualifiers: Laterality: right Lung location: upper lobe of lung Qualified Code(s): C34.11 - Malignant neoplasm of upper lobe, right bronchus or lung Assessment/Plan see problem list dvt ppx
--- NOTE | 2019-04-02 16:34 | PN ---
Progress Note, Physician History of Present Illness: AWAKE, ALERT IN BED STILL WITH C/O DRY COUGH TEMPS LOW GRADE TODAY COUNTS DROPPING WBC 1.2 NO DIFF PANCYTOPENIC CULTURES NO GROWTH - Current Medication List Current Medications: Active Medications Acetaminophen (Tylenol -) 650 mg PO Q4H PRN PRN Reason: PAIN OR FEVER Last Admin: 04/02/19 10:43 Dose: 650 mg Albuterol Sulfate (Ventolin 0.083% Nebulizer Soln -) 1 amp NEB Q4H PRN PRN Reason: SHORT OF BREATH/WHEEZING Last Admin: 03/31/19 07:57 Dose: 1 amp Diltiazem HCl (Cardizem Cd -) 120 mg PO DAILY [facility] Last Admin: 04/02/19 11:46 Dose: Not Given Enoxaparin Sodium (Lovenox -) 100 mg SQ BID [facility] Last Admin: 04/02/19 10:33 Dose: 100 mg Ergocalciferol (Drisdol -) 50,000 unit PO Sa [facility] Last Admin: 04/01/19 17:13 Dose: Not Given Gabapentin (Neurontin -) 300 mg PO BID [facility] Last Admin: 04/02/19 10:33 Dose: 300 mg Piperacillin Sod/Tazobactam (Sod 3.375 gm/ Dextrose) 50 mls @ 100 mls/hr IVPB Q8H-IV [facility]; Protocol Last Admin: 04/02/19 10:34 Dose: 100 mls/hr Lactobacillus Acidophilus (Bacid -) 1 tab PO DAILY [facility] Morphine Sulfate (Ms Contin -) 30 mg PO BID [facility] Last Admin: 04/02/19 10:33 Dose: 30 mg Nystatin (Nystatin) 500,000 unit PO TID [facility] Last Admin: 04/02/19 13:37 Dose: 500,000 unit Ondansetron HCl (Zofran -) 8 mg PO TID [facility] Last Admin: 04/02/19 13:37 Dose: 8 mg Oxycodone HCl (Roxicodone -) 30 mg PO Q6H PRN PRN Reason: PAIN LEVEL 6-10 Last Admin: 04/02/19 12:12 Dose: 30 mg Pantoprazole Sodium (Protonix -) 40 mg PO DAILY [facility] Last Admin: 04/02/19 10:33 Dose: 40 mg Rosuvastatin Calcium (Crestor -) 40 mg PO HS [facility] Last Admin: 04/01/19 22:45 Dose: 40 mg Sotalol HCl (Betapace -) 80 mg PO BID [facility] Last Admin: 04/02/19 10:33 Dose: 80 mg Tiotropium [place]/Olodaterol (Stiolto Respimat Inhal [place]) 1 puff IH BID [facility] Last Admin: 04/02/19 10:34 Dose: 1 puff Zolpidem Tartrate (Ambien -) 5 mg PO HS PRN PRN Reason: INSOMNIA Last Admin: 03/31/19 23:24 Dose: 5 mg - Objective Vital Signs: Vital Signs Temperature 99.3 F 04/02/19 14:03 Pulse Rate 98 H 04/02/19 14:03 Respiratory Rate 20 04/02/19 14:03 Blood Pressure 102/51 L 04/02/19 14:03 O2 Sat by Pulse Oximetry (%) 98 04/02/19 09:00 Constitutional: Yes: No Distress Eyes: Yes: Conjunctiva Clear Cardiovascular: Yes: Regular Rate and Rhythm, S1, S2 Respiratory: Yes: Rhonchi Gastrointestinal: Yes: Normal Bowel Sounds, Soft. No: Tenderness Edema: No Labs: CBC, BMP 04/02/19 07:45 04/02/19 07:45 INR, PTT INR 1.23 (0.83-1.09) H 03/28/19 02:00 Assessment/Plan FEVER/ NEUTROPENIA PANCYTOPENIA ? POST OBSTRUCTIVE PNEUMONIA LUNG CA CONTINUE EMPIRIC ZOSYN NEUTROPENIC PRECAUTIONS
[2019-04-02 18:11] LABS: BASO % 0.5 % (0-2.0); EOS % 0.3 % (0-4.5); HEMATOCRIT 24.1 % (35.4-49); LYMPH % 25.7 % (8-40); MCH 30.9 pg (25.7-33.7); MCHC 33.3 g/dl (32.0-35.9); MEAN CELL VOLUME 92.8 fl (80-96); MEAN PLT VOLUME 7.1 fl (7.5-11.1); MONO % 4.4 % (3.8-10.2); NEUT % 69.1 % (42.8-82.8); PLATELET COUNT 66 K/MM3 (134-434); RBC 2.59 M/mm3 (4.00-5.60); RDW 14.8 % (11.9-15.9)
[2019-04-02 18:19] LABS: WHITE BLOOD COUNT 1.4 K/mm3 (4.0-10.0)
--- NOTE | 2019-04-02 19:01 | PN ---
Progress Note, Physician History of Present Illness: No complaints. Denies pain. - Current Medication List Current Medications: Active Medications Acetaminophen (Tylenol -) 650 mg PO Q4H PRN PRN Reason: PAIN OR FEVER Last Admin: 04/02/19 10:43 Dose: 650 mg Albuterol Sulfate (Ventolin 0.083% Nebulizer Soln -) 1 amp NEB Q4H PRN PRN Reason: SHORT OF BREATH/WHEEZING Last Admin: 03/31/19 07:57 Dose: 1 amp Diltiazem HCl (Cardizem Cd -) 120 mg PO DAILY [facility] Last Admin: 04/02/19 11:46 Dose: Not Given Enoxaparin Sodium (Lovenox -) 100 mg SQ BID [facility] Last Admin: 04/02/19 10:33 Dose: 100 mg Ergocalciferol (Drisdol -) 50,000 unit PO Sa [facility] Last Admin: 04/01/19 17:13 Dose: Not Given Gabapentin (Neurontin -) 300 mg PO BID [facility] Last Admin: 04/02/19 10:33 Dose: 300 mg Piperacillin Sod/Tazobactam (Sod 3.375 gm/ Dextrose) 50 mls @ 100 mls/hr IVPB Q8H-IV [facility]; Protocol Last Admin: 04/02/19 18:04 Dose: 100 mls/hr Lactobacillus Acidophilus (Bacid -) 1 tab PO DAILY [facility] Morphine Sulfate (Ms Contin -) 30 mg PO BID [facility] Last Admin: 04/02/19 10:33 Dose: 30 mg Nystatin (Nystatin) 500,000 unit PO TID [facility] Last Admin: 04/02/19 13:37 Dose: 500,000 unit Ondansetron HCl (Zofran -) 8 mg PO TID [facility] Last Admin: 04/02/19 13:37 Dose: 8 mg Oxycodone HCl (Roxicodone -) 30 mg PO Q6H PRN PRN Reason: PAIN LEVEL 6-10 Last Admin: 04/02/19 18:04 Dose: 30 mg Pantoprazole Sodium (Protonix -) 40 mg PO DAILY [facility] Last Admin: 04/02/19 10:33 Dose: 40 mg Rosuvastatin Calcium (Crestor -) 40 mg PO HS [facility] Last Admin: 04/01/19 22:45 Dose: 40 mg Sotalol HCl (Betapace -) 80 mg PO BID [facility] Last Admin: 04/02/19 10:33 Dose: 80 mg Tiotropium [place]/Olodaterol (Stiolto Respimat Inhal [place]) 1 puff IH BID [facility] Last Admin: 04/02/19 10:34 Dose: 1 puff Zolpidem Tartrate (Ambien -) 5 mg PO HS PRN PRN Reason: INSOMNIA Last Admin: 03/31/19 23:24 Dose: 5 mg - Objective Vital Signs: Vital Signs Temperature 99.2 F 04/02/19 18:00 Pulse Rate 97 H 04/02/19 18:00 Respiratory Rate 20 04/02/19 18:00 Blood Pressure 92/61 04/02/19 18:00 O2 Sat by Pulse Oximetry (%) 98 04/02/19 09:00 Constitutional: Yes: No Distress Eyes: Yes: Conjunctiva Clear Respiratory: Yes: Regular, CTA Bilaterally Gastrointestinal: Yes: Soft (z). No: Distention, Palpable Mass Edema: No Labs: CBC, BMP 04/02/19 18:00 04/02/19 07:45 INR, PTT INR 1.23 (0.83-1.09) H 03/28/19 02:00 Assessment/Plan 62M with COPD, Afib on Eliqus and squamous cell ca of lung c/b SVC syndrome s/p stent and RT, on lovenox, s/p carboplatin/taxol, now on gemzar (C2D8 on 03/27) admitted with fever. ?post-obstructive pneumonitis, on Abx. Downtrending counts due to chemotherapy. ANC 1000 today. Continue to monitor. If continues to decrease, may need filgrastim
[2019-04-02 19:53] LABS: ANISOCYTOSIS 1+; MACROCYTOSIS 1+; OVALOCYTE 1+
[2019-04-02 19:54] LABS: PLATELET ESTIMATE MOD DECREASED
[2019-04-02] MEDS: ZOLPIDEM TARTRATE 5 MG TABLET PO PRN (21:15)
[2019-04-02] MEDS: ROSUVASTATIN CA 40 MG TABLET PO SCH (22:21)
[2019-04-03] MEDS ORDERED: PIPERACILLIN/TAZOBACTAM 3.375 GM VIAL IVPB ONE ×3 (00:44→17:42)
[2019-04-03] MEDS ORDERED: DEXTROSE 5%-WATER - 50 ML IVPB ONE ×3 (00:45→17:42)
[2019-04-03] MEDS: PIPERACILLIN/TAZOB 3.375 GM 3.375 GM in DEXTROSE 5%-WATER - 50 ML IVPB SCH ×3 (01:26→17:53)
[2019-04-03] MEDS ORDERED: PT OWN MED DRAWER 7, Y5N ONE ×2 (05:07→19:58)
[2019-04-03] MEDS: oxyCODONE HCL 5 MG TABLET PO PRN ×3 (05:11→18:02)
[2019-04-03] MEDS: ONDANSETRON 8 MG TABLET (FP) PO SCH ×3 (05:11→23:15)
[2019-04-03] MEDS: NYSTATIN 500,000 UNITS TABLET PO SCH ×3 (05:55→23:15)
[2019-04-03 06:41] LABS: BASO % 0.3 % (0-2.0); EOS % 0.4 % (0-4.5); HEMATOCRIT 22.5 % (35.4-49); HEMOGLOBIN 7.7 GM/dL (11.7-16.9); LYMPH % 25.4 % (8-40); MCH 31.7 pg (25.7-33.7); MCHC 34.5 g/dl (32.0-35.9); MEAN CELL VOLUME 91.9 fl (80-96); MEAN PLT VOLUME 7.1 fl (7.5-11.1); MONO % 5.5 % (3.8-10.2); NEUT % 68.4 % (42.8-82.8); PLATELET COUNT 61 K/MM3 (134-434); RBC 2.45 M/mm3 (4.00-5.60); RDW 15.2 % (11.9-15.9)
[2019-04-03 07:18] LABS: WHITE BLOOD COUNT 1.4 K/mm3 (4.0-10.0)
[2019-04-03 07:40] LABS: ALBUMIN 2.6 g/dl (3.4-5.0); BILIRUBIN,TOTAL 0.2 mg/dL (0.2-1); BLOOD UREA NITROGEN 5.1 mg/dL (7-18); CALCIUM 8.2 mg/dL (8.5-10.1); CREATININE 0.8 mg/dL (0.55-1.3); POTASSIUM 3.6 mmol/L (3.5-5.1); TOT PROT 5.9 g/dl (6.4-8.2)
[2019-04-03] MEDS ORDERED: SODIUM CHLORIDE 250 ML IV STA (08:39)
--- NOTE | 2019-04-03 08:39 | PN ---
Progress Note, Physician Chief Complaint: PATIENT ASLEEP H/H LOW 7 AND 22 BP LOW 89/55 - Current Medication List Current Medications: Active Medications Acetaminophen (Tylenol -) 650 mg PO Q4H PRN PRN Reason: PAIN OR FEVER Last Admin: 04/02/19 21:15 Dose: 650 mg Albuterol Sulfate (Ventolin 0.083% Nebulizer Soln -) 1 amp NEB Q4H PRN PRN Reason: SHORT OF BREATH/WHEEZING Last Admin: 03/31/19 07:57 Dose: 1 amp Diltiazem HCl (Cardizem Cd -) 120 mg PO DAILY [facility] Last Admin: 04/02/19 11:46 Dose: Not Given Enoxaparin Sodium (Lovenox -) 100 mg SQ BID [facility] Last Admin: 04/02/19 21:14 Dose: 100 mg Ergocalciferol (Drisdol -) 50,000 unit PO Sa [facility] Last Admin: 04/01/19 17:13 Dose: Not Given Gabapentin (Neurontin -) 300 mg PO BID [facility] Last Admin: 04/02/19 21:15 Dose: 300 mg Piperacillin Sod/Tazobactam (Sod 3.375 gm/ Dextrose) 50 mls @ 100 mls/hr IVPB Q8H-IV [facility]; Protocol Last Admin: 04/03/19 01:26 Dose: 100 mls/hr Lactobacillus Acidophilus (Bacid -) 1 tab PO DAILY [facility] Morphine Sulfate (Ms Contin -) 30 mg PO BID [facility] Last Admin: 04/02/19 21:15 Dose: 30 mg Nystatin (Nystatin) 500,000 unit PO TID [facility] Last Admin: 04/03/19 05:55 Dose: 500,000 unit Ondansetron HCl (Zofran -) 8 mg PO TID [facility] Last Admin: 04/03/19 05:11 Dose: 8 mg Oxycodone HCl (Roxicodone -) 30 mg PO Q6H PRN PRN Reason: PAIN LEVEL 6-10 Last Admin: 04/03/19 05:11 Dose: 30 mg Pantoprazole Sodium (Protonix -) 40 mg PO DAILY [facility] Last Admin: 04/02/19 10:33 Dose: 40 mg Rosuvastatin Calcium (Crestor -) 40 mg PO HS [facility] Last Admin: 04/02/19 22:21 Dose: 40 mg Sotalol HCl (Betapace -) 80 mg PO BID [facility] Last Admin: 04/02/19 22:21 Dose: Not Given Tiotropium [place]/Olodaterol (Stiolto Respimat Inhal [place]) 1 puff IH BID [facility] Last Admin: 04/02/19 21:16 Dose: 1 puff Zolpidem Tartrate (Ambien -) 5 mg PO HS PRN PRN Reason: INSOMNIA Last Admin: 04/02/19 21:15 Dose: 5 mg - Objective Vital Signs: Vital Signs Temperature 98.1 F 04/03/19 06:00 Pulse Rate 103 H 04/03/19 06:00 Respiratory Rate 20 04/03/19 06:00 Blood Pressure 85/59 L 04/03/19 06:00 O2 Sat by Pulse Oximetry (%) 97 04/02/19 21:00 Constitutional: Yes: Other Cardiovascular: Yes: Regular Rate and Rhythm Respiratory: Yes: Diminished Gastrointestinal: Yes: Soft Genitourinary: Yes: WNL Musculoskeletal: Yes: Muscle Weakness Extremities: Yes: Other Edema: No Peripheral Pulses WNL: Yes Integumentary: Yes: WNL Neurological: Yes: WNL Labs: CBC, BMP 04/03/19 06:20 04/03/19 06:20 INR, PTT INR 1.23 (0.83-1.09) H 03/28/19 02:00 Problem List - Problems (1) Lactic acidosis Code(s): E87.2 - ACIDOSIS (2) Pneumonia Code(s): J18.9 - PNEUMONIA, UNSPECIFIED ORGANISM Qualifiers: Pneumonia type: due to unspecified organism Laterality: right Lung location: middle lobe of lung Qualified Code(s): J18.1 - Lobar pneumonia, unspecified organism (3) Sepsis Code(s): A41.9 - SEPSIS, UNSPECIFIED ORGANISM Qualifiers: Sepsis type: sepsis due to unspecified organism Sepsis acute organ dysfunction status: without acute organ dysfunction Qualified Code(s): A41.9 - Sepsis, unspecified organism (4) Shortness of breath Code(s): R06.02 - SHORTNESS OF BREATH (5) Acute respiratory failure Code(s): J96.00 - ACUTE RESPIRATORY FAILURE, UNSP W HYPOXIA OR HYPERCAPNIA Qualifiers: Respiratory failure complication: hypoxia Qualified Code(s): J96.01 - Acute respiratory failure with hypoxia (6) Afib Code(s): I48.91 - UNSPECIFIED ATRIAL FIBRILLATION (7) Anemia Code(s): D64.9 - ANEMIA, UNSPECIFIED Qualifiers: Anemia type: unspecified type Qualified Code(s): D64.9 - Anemia, unspecified (8) COPD (chronic obstructive pulmonary disease) Code(s): J44.9 - CHRONIC OBSTRUCTIVE PULMONARY DISEASE, UNSPECIFIED Qualifiers: COPD type: unspecified COPD Qualified Code(s): J44.9 - Chronic obstructive pulmonary disease, unspecified (9) DVT (deep venous thrombosis) Code(s): I82.409 - ACUTE EMBOLISM AND THOMBOS UNSP DEEP VN UNSP LOWER EXTREMITY Qualifiers: DVT location: upper extremity Affected thrombotic vein of extremity: other upper extremity vein Chronicity: acute Laterality: right Qualified Code(s) : I82.621 - Acute embolism and thrombosis of deep veins of right upper extremity (10) Squamous cell lung cancer Code(s): C34.90 - MALIGNANT NEOPLASM OF UNSP PART OF UNSP BRONCHUS OR LUNG Assessment/Plan TRANSFUSE PRBC NORMAL SALINE 75/CC/HR HEME F/U CAN TRANSFER TO ICU IF BP CONTINUES TO STAY LOW CARDIAC F/U DVT PROPHYLAXIS LOVENOX BID IV ABX PER ID FOR SEPSIS/BACTEREMIA LEUKOPENIA WILL NEEDNEUPOGEN PER HEME PAIN CONTROL
[2019-04-03 10:29] LABS: ANISOCYTOSIS 1+; MACROCYTOSIS 0; PLATELET ESTIMATE DECREASED
--- NOTE | 2019-04-03 10:29 | PN ---
Progress Note (short form) - Note Progress Note: Resting in NAD. No acute events overnight. BP marginal. Intake & Output 03/31/19 04/01/19 04/02/19 04/03/19 23:59 23:59 23:59 23:59 Intake Total 1550 150 650 50 Output Total 250 600 600 Balance 1300 -450 50 50 Last Vital Signs Temp Pulse Resp BP Pulse Ox 98.1 F 103 H 20 85/59 L 97 04/03/19 06:00 04/03/19 06:00 04/03/19 06:00 04/03/19 06:00 04/02/19 21:00 Active Medications Acetaminophen (Tylenol -) 650 mg PO Q4H PRN PRN Reason: PAIN OR FEVER Last Admin: 04/02/19 21:15 Dose: 650 mg Albuterol Sulfate (Ventolin 0.083% Nebulizer Soln -) 1 amp NEB Q4H PRN PRN Reason: SHORT OF BREATH/WHEEZING Last Admin: 03/31/19 07:57 Dose: 1 amp Diltiazem HCl (Cardizem Cd -) 120 mg PO DAILY [facility] Last Admin: 04/02/19 11:46 Dose: Not Given Enoxaparin Sodium (Lovenox -) 100 mg SQ BID [facility] Last Admin: 04/02/19 21:14 Dose: 100 mg Ergocalciferol (Drisdol -) 50,000 unit PO Sa [facility] Last Admin: 04/01/19 17:13 Dose: Not Given Gabapentin (Neurontin -) 300 mg PO BID [facility] Last Admin: 04/02/19 21:15 Dose: 300 mg Piperacillin Sod/Tazobactam (Sod 3.375 gm/ Dextrose) 50 mls @ 100 mls/hr IVPB Q8H-IV [facility]; Protocol Last Admin: 04/03/19 01:26 Dose: 100 mls/hr Sodium Chloride (Normal Saline -) 1,000 mls @ 75 mls/hr IV ASDIR [facility] Lactobacillus Acidophilus (Bacid -) 1 tab PO DAILY [facility] Morphine Sulfate (Ms Contin -) 30 mg PO BID [facility] Last Admin: 04/02/19 21:15 Dose: 30 mg Nystatin (Nystatin) 500,000 unit PO TID [facility] Last Admin: 04/03/19 05:55 Dose: 500,000 unit Ondansetron HCl (Zofran -) 8 mg PO TID [facility] Last Admin: 04/03/19 05:11 Dose: 8 mg Oxycodone HCl (Roxicodone -) 30 mg PO Q6H PRN PRN Reason: PAIN LEVEL 6-10 Last Admin: 04/03/19 05:11 Dose: 30 mg Pantoprazole Sodium (Protonix -) 40 mg PO DAILY [facility] Last Admin: 04/02/19 10:33 Dose: 40 mg Rosuvastatin Calcium (Crestor -) 40 mg PO HS [facility] Last Admin: 04/02/19 22:21 Dose: 40 mg Sotalol HCl (Betapace -) 80 mg PO BID [facility] Last Admin: 04/02/19 22:21 Dose: Not Given Tiotropium [place]/Olodaterol (Stiolto Respimat Inhal [place]) 1 puff IH BID [facility] Last Admin: 04/02/19 21:16 Dose: 1 puff Zolpidem Tartrate (Ambien -) 5 mg PO HS PRN PRN Reason: INSOMNIA Last Admin: 04/02/19 21:15 Dose: 5 mg Constitutional: Yes: NAD Cardiovascular: Yes: Regular Rate and Rhythm Respiratory: Yes: Diminished Gastrointestinal: Yes: Soft Genitourinary: Yes: WNL Musculoskeletal: Yes: Muscle Weakness Extremities: Yes: Other Edema: No Peripheral Pulses WNL: Yes Integumentary: Yes: WNL Neurological: Yes: WNL Labs: Laboratory Results - last 24 hr 04/02/19 04/03/19 04/03/19 18:00 06:20 06:20 WBC 1.4 L* 1.4 L* RBC 2.59 L 2.45 L Hgb 8.0 L 7.7 L Hct 24.1 L 22.5 L MCV 92.8 91.9 MCH 30.9 31.7 MCHC 33.3 34.5 RDW 14.8 15.2 Plt Count 66 L 61 L MPV 7.1 L 7.1 L Absolute Neuts (auto) 1.0 L 0.9 L Total Counted 100 Neutrophils % 69.1 68.4 Neutrophils % (Manual) 68.0 Lymphocytes % 25.7 25.4 Lymphocytes % (Manual) 27.0 Monocytes % 4.4 5.5 Monocytes % (Manual) 3 L D Eosinophils % 0.3 D 0.4 Basophils % 0.5 0.3 Myelocytes % (Man) 1 D Nucleated RBC % 0 0 Differential Comment Man diff performed Platelet Estimate Mod decreased Platelet Comment Slide scanned. Poikilocytosis 1+ Anisocytosis 1+ Microcytosis 1+ Macrocytosis 1+ Ovalocytes 1+ Sodium 142 Potassium 3.6 Chloride 104 Carbon Dioxide 28 Anion Gap 10 BUN 5.1 L Creatinine 0.8 Est GFR (CKD-EPI)AfAm 110.19 Est GFR (CKD-EPI)NonAf 95.07 Random Glucose 98 Calcium 8.2 L Total Bilirubin 0.2 AST 62 H ALT 64 H Alkaline Phosphatase 46 Total Protein 5.9 L Albumin 2.6 L Problem List - Problems (1) Lactic acidosis Code(s): E87.2 - ACIDOSIS (2) Pneumonia Code(s): J18.9 - PNEUMONIA, UNSPECIFIED ORGANISM Qualifiers: Pneumonia type: due to unspecified organism Laterality: right Lung location: middle lobe of lung Qualified Code(s): J18.1 - Lobar pneumonia, unspecified organism (3) Sepsis Code(s): A41.9 - SEPSIS, UNSPECIFIED ORGANISM Qualifiers: Sepsis type: sepsis due to unspecified organism Sepsis acute organ dysfunction status: without acute organ dysfunction Qualified Code(s): A41.9 - Sepsis, unspecified organism (4) Shortness of breath Code(s): R06.02 - SHORTNESS OF BREATH (5) Acute respiratory failure Code(s): J96.00 - ACUTE RESPIRATORY FAILURE, UNSP W HYPOXIA OR HYPERCAPNIA Qualifiers: Respiratory failure complication: hypoxia Qualified Code(s): J96.01 - Acute respiratory failure with hypoxia (6) Afib Code(s): I48.91 - UNSPECIFIED ATRIAL FIBRILLATION (7) Anemia Code(s): D64.9 - ANEMIA, UNSPECIFIED Qualifiers: Anemia type: unspecified type Qualified Code(s): D64.9 - Anemia, unspecified (8) COPD (chronic obstructive pulmonary disease) Code(s): J44.9 - CHRONIC OBSTRUCTIVE PULMONARY DISEASE, UNSPECIFIED Qualifiers: COPD type: unspecified COPD Qualified Code(s): J44.9 - Chronic obstructive pulmonary disease, unspecified (9) DVT (deep venous thrombosis) Code(s): I82.409 - ACUTE EMBOLISM AND THOMBOS UNSP DEEP VN UNSP LOWER EXTREMITY Qualifiers: DVT location: upper extremity Affected thrombotic vein of extremity: other upper extremity vein Chronicity: acute Laterality: right Qualified Code(s) : I82.621 - Acute embolism and thrombosis of deep veins of right upper extremity (10) Squamous cell lung cancer Code(s): C34.90 - MALIGNANT NEOPLASM OF UNSP PART OF UNSP BRONCHUS OR LUNG Assessment/Plan Transfusional support IVF Close monitoring of BP VTE prophylaxis Neupogen per Heme Pain control Will follow Dr Jean
--- NOTE | 2019-04-03 11:06 | PN ---
Progress Note, Physician History of Present Illness: Nonproductive cough and shortness of breath, afebrile. - Current Medication List Current Medications: Active Medications Acetaminophen (Tylenol -) 650 mg PO Q4H PRN PRN Reason: PAIN OR FEVER Last Admin: 04/02/19 21:15 Dose: 650 mg Albuterol Sulfate (Ventolin 0.083% Nebulizer Soln -) 1 amp NEB Q4H PRN PRN Reason: SHORT OF BREATH/WHEEZING Last Admin: 03/31/19 07:57 Dose: 1 amp Diltiazem HCl (Cardizem Cd -) 120 mg PO DAILY [facility] Last Admin: 04/02/19 11:46 Dose: Not Given Enoxaparin Sodium (Lovenox -) 100 mg SQ BID [facility] Last Admin: 04/02/19 21:14 Dose: 100 mg Ergocalciferol (Drisdol -) 50,000 unit PO Sa [facility] Last Admin: 04/01/19 17:13 Dose: Not Given Gabapentin (Neurontin -) 300 mg PO BID [facility] Last Admin: 04/02/19 21:15 Dose: 300 mg Piperacillin Sod/Tazobactam (Sod 3.375 gm/ Dextrose) 50 mls @ 100 mls/hr IVPB Q8H-IV [facility]; Protocol Last Admin: 04/03/19 01:26 Dose: 100 mls/hr Sodium Chloride (Normal Saline -) 1,000 mls @ 75 mls/hr IV ASDIR [facility] Lactobacillus Acidophilus (Bacid -) 1 tab PO DAILY [facility] Morphine Sulfate (Ms Contin -) 30 mg PO BID [facility] Last Admin: 04/02/19 21:15 Dose: 30 mg Nystatin (Nystatin) 500,000 unit PO TID [facility] Last Admin: 04/03/19 05:55 Dose: 500,000 unit Ondansetron HCl (Zofran -) 8 mg PO TID [facility] Last Admin: 04/03/19 05:11 Dose: 8 mg Oxycodone HCl (Roxicodone -) 30 mg PO Q6H PRN PRN Reason: PAIN LEVEL 6-10 Last Admin: 04/03/19 05:11 Dose: 30 mg Pantoprazole Sodium (Protonix -) 40 mg PO DAILY [facility] Last Admin: 04/02/19 10:33 Dose: 40 mg Rosuvastatin Calcium (Crestor -) 40 mg PO HS [facility] Last Admin: 04/02/19 22:21 Dose: 40 mg Sotalol HCl (Betapace -) 80 mg PO BID [facility] Last Admin: 04/02/19 22:21 Dose: Not Given Tiotropium [place]/Olodaterol (Stiolto Respimat Inhal [place]) 1 puff IH BID [facility] Last Admin: 04/02/19 21:16 Dose: 1 puff Zolpidem Tartrate (Ambien -) 5 mg PO HS PRN PRN Reason: INSOMNIA Last Admin: 04/02/19 21:15 Dose: 5 mg - Objective Vital Signs: Vital Signs Temperature 98.6 F 04/03/19 10:00 Pulse Rate 115 H 04/03/19 10:00 Respiratory Rate 20 04/03/19 10:00 Blood Pressure 106/73 04/03/19 10:00 O2 Sat by Pulse Oximetry (%) 97 04/02/19 21:00 Constitutional: Yes: No Distress, Calm Neck: Yes: Supple Cardiovascular: Yes: Regular Rate and Rhythm Respiratory: Yes: Regular, Diminished, On Nasal O2 Gastrointestinal: Yes: Normal Bowel Sounds, Soft Edema: No Labs: CBC, BMP 04/03/19 06:20 04/03/19 06:20 INR, PTT INR 1.23 (0.83-1.09) H 03/28/19 02:00 Problem List - Problems (1) Pneumonia Code(s): J18.9 - PNEUMONIA, UNSPECIFIED ORGANISM Qualifiers: Pneumonia type: due to unspecified organism Laterality: right Lung location: middle lobe of lung Qualified Code(s): J18.1 - Lobar pneumonia, unspecified organism (2) Shortness of breath Code(s): R06.02 - SHORTNESS OF BREATH (3) Anemia Code(s): D64.9 - ANEMIA, UNSPECIFIED Qualifiers: Anemia type: unspecified type Qualified Code(s): D64.9 - Anemia, unspecified (4) Anticoagulant long-term use Code(s): Z79.01 - MCC (CURRENT) USE OF 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 (5) COPD (chronic obstructive pulmonary disease) Code(s): J44.9 - CHRONIC OBSTRUCTIVE PULMONARY DISEASE, UNSPECIFIED Qualifiers: COPD type: unspecified COPD Qualified Code(s): J44.9 - Chronic obstructive pulmonary disease, unspecified (6) HTN (hypertension) Code(s): I10 - ESSENTIAL (PRIMARY) HYPERTENSION Qualifiers: Hypertension type: essential hypertension Qualified Code(s): I10 - Essential (primary) hypertension (7) Lung cancer Code(s): C34.90 - MALIGNANT NEOPLASM OF UNSP PART OF UNSP BRONCHUS OR LUNG Qualifiers: Laterality: right Lung location: upper lobe of lung Qualified Code(s): C34.11 - Malignant neoplasm of upper lobe, right bronchus or lung (8) Paroxysmal atrial fibrillation Code(s): I48.0 - PAROXYSMAL ATRIAL FIBRILLATION Assessment/Plan 1. Post-obstructive pneumonia, resolving 2. Anemia h/o transfusion 3. 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 RUL Lung Mass, moderately differentiated squamous cell carcinoma post chemo/ radiation therapies 5. CAD/coronary artery calcification angina pectoris 6. Diastolic LV dysfunction with class 0 NYHA classification LV failure 7. Paroxysmal Atrial Fibrillation/paroxysmal atrial flutter [id number] score of 1 on anticoagulation, on Lovenox 8. HTN/HCVD 9. COPD/emphysema 10. Chronic Hypoxic Respiratory Failure 11. History of Hepatitis C post-treatment 12. OSAS 13. Hyperlipidemia PLAN: 1. Continue Lovenox 100 bid with close monitoring of Hg level and Crestor 40 qd 2. Continue Betapace 80 bid with close monitoring of QTc interval 3. Continue Cardizem CD 120 qd, hemodynamics permitting 4. Antibiotic course f/u C&S NGTD, BD, O2 to keep SpO2 >90% 5. Monitor ANC, may need G-CSF
[2019-04-03] MEDS: SODIUM CHLORIDE 1,000 ML IV SCH (11:10)
[2019-04-03] MEDS: ENOXAPARIN NA (PORCINE) 100 MG/1 ML DISP.SYRIN SQ SCH ×2 (11:11→23:15)
[2019-04-03] MEDS: LACTOBACILLUS ACIDOPHILUS 1 TABLET PO SCH (11:12)
[2019-04-03] MEDS: GABAPENTIN 300 MG CAPSULE (FP) PO SCH ×2 (11:12→23:15)
[2019-04-03] MEDS: morphine SO4 SUSTAINED ACTING 30 MG TABLET.SA PO SCH ×2 (11:12→23:15)
[2019-04-03] MEDS: PANTOPRAZOLE 40 MG TABLET (FP) PO SCH (11:12)
[2019-04-03] MEDS: SOTALOL HCL 80 MG TABLET (FP) PO SCH ×2 (11:14→23:15)
[2019-04-03] MEDS: ACETAMINOPHEN 325 MG TABLET (FP) PO PRN ×2 (11:21→15:11)
[2019-04-03] MEDS: TIOTROPIUM/OLODATEROL HCL (STIOLTO) 4 GM INHALER IH SCH (11:24)
--- NOTE | 2019-04-03 15:07 | PN ---
Progress Note, Physician History of Present Illness: AWAKE, ALERT IN BED C/O DRY COUGH AFEBRIL WBC 1.4 ANC APPROX 900 PANCYTOPENIC CULTURES NO GROWTH - Current Medication List Current Medications: Active Medications Acetaminophen (Tylenol -) 650 mg PO Q4H PRN PRN Reason: PAIN OR FEVER Last Admin: 04/03/19 11:21 Dose: 650 mg Albuterol Sulfate (Ventolin 0.083% Nebulizer Soln -) 1 amp NEB Q4H PRN PRN Reason: SHORT OF BREATH/WHEEZING Last Admin: 03/31/19 07:57 Dose: 1 amp Diltiazem HCl (Cardizem Cd -) 120 mg PO DAILY [facility] Last Admin: 04/03/19 11:14 Dose: Not Given Enoxaparin Sodium (Lovenox -) 100 mg SQ BID [facility] Last Admin: 04/03/19 11:11 Dose: 100 mg Ergocalciferol (Drisdol -) 50,000 unit PO Sa [facility] Last Admin: 04/01/19 17:13 Dose: Not Given Gabapentin (Neurontin -) 300 mg PO BID [facility] Last Admin: 04/03/19 11:12 Dose: 300 mg Piperacillin Sod/Tazobactam (Sod 3.375 gm/ Dextrose) 50 mls @ 100 mls/hr IVPB Q8H-IV [facility]; Protocol Last Admin: 04/03/19 11:11 Dose: 100 mls/hr Sodium Chloride (Normal Saline -) 1,000 mls @ 75 mls/hr IV ASDIR [facility] Last Admin: 04/03/19 11:10 Dose: 75 mls/hr Lactobacillus Acidophilus (Bacid -) 1 tab PO DAILY [facility] Last Admin: 04/03/19 11:12 Dose: 1 tab Morphine Sulfate (Ms Contin -) 30 mg PO BID [facility] Last Admin: 04/03/19 11:12 Dose: 30 mg Nystatin (Nystatin) 500,000 unit PO TID [facility] Last Admin: 04/03/19 05:55 Dose: 500,000 unit Ondansetron HCl (Zofran -) 8 mg PO TID [facility] Last Admin: 04/03/19 05:11 Dose: 8 mg Oxycodone HCl (Roxicodone -) 30 mg PO Q6H PRN PRN Reason: PAIN LEVEL 6-10 Last Admin: 04/03/19 11:20 Dose: 30 mg Pantoprazole Sodium (Protonix -) 40 mg PO DAILY [facility] Last Admin: 04/03/19 11:12 Dose: 40 mg Rosuvastatin Calcium (Crestor -) 40 mg PO HS [facility] Last Admin: 04/02/19 22:21 Dose: 40 mg Sotalol HCl (Betapace -) 80 mg PO BID [facility] Last Admin: 04/03/19 11:14 Dose: Not Given Tiotropium [place]/Olodaterol (Stiolto Respimat Inhal [place]) 1 puff IH BID [facility] Last Admin: 04/03/19 11:24 Dose: 1 puff Zolpidem Tartrate (Ambien -) 5 mg PO HS PRN PRN Reason: INSOMNIA Last Admin: 04/02/19 21:15 Dose: 5 mg - Objective Vital Signs: Vital Signs Temperature 98.2 F 04/03/19 14:12 Pulse Rate 103 H 04/03/19 13:30 Respiratory Rate 20 04/03/19 13:30 Blood Pressure 90/55 L 04/03/19 13:30 O2 Sat by Pulse Oximetry (%) 95 04/03/19 09:00 Constitutional: Yes: No Distress Eyes: Yes: Conjunctiva Clear Cardiovascular: Yes: Regular Rate and Rhythm, S1, S2 Respiratory: Yes: Rhonchi Gastrointestinal: Yes: Normal Bowel Sounds, Soft. No: Tenderness Edema: No Labs: CBC, BMP 04/03/19 06:20 04/03/19 06:20 INR, PTT INR 1.23 (0.83-1.09) H 03/28/19 02:00 Assessment/Plan FEVER/ NEUTROPENIA PANCYTOPENIA ? POST OBSTRUCTIVE PNEUMONIA LUNG CA CONTINUE EMPIRIC ZOSYN NEUTROPENIC PRECAUTIONS
--- NOTE | 2019-04-03 16:37 | PN ---
Progress Note (short form) - Note Progress Note: Hematology and oncology follow up Subjective: Patient seen and examined at bedside. Patient feeling better, no vents overnight , no new complaints. Objective: Vital Signs Temperature 98.2 F 04/03/19 14:12 Pulse Rate 103 H 04/03/19 13:30 Respiratory Rate 20 04/03/19 13:30 Blood Pressure 90/55 L 04/03/19 13:30 O2 Sat by Pulse Oximetry (%) 95 04/03/19 09:00 PE: Gen: awake, alert and in NAD. Well appearing. Pulm: Grackles on the right with slightly decreased lung sounds. Improved since admission. Cardio: Regular rate and rhythm, s1, s2 heard. no murmus, gallops, rubs heard. Abdomen: Soft, nontender, nondistended, bowel sounds heard. Extremities: no peripheral edema. CBC, BMP 04/03/19 06:20 04/03/19 06:20 Assessment and plan: The patient is a 63 year old male with a past medical history of HTN, HLD, Squamous cell lung cancer currently on chemo (carbo/taxol) via PICC (last infusion yesterday), COPD on 3L home o2, afib, PE on Lovenox and SVC syndrome s/ p stenting who comes into the ED c/o chills and fevers over the past 4 days. In the ED, he was found to be febrile to 101, tachycardic to 104 with a WBC count of 11.5. A chest xray showed a new infiltrate. #Sepsis 2/2 pneumonia, likely post obstructive -The patient had a low grade fever to 100.7 yesterday -Patient neutropenic (wbc 1.4, ANC 957) -Patient on Zosyn monotherapy -Pulm and ID following #Squamous cell lung cancer -on Carbo/Taxol -will hold chemo while patient infected -supplemental O2 as required (pt on 3L @ home)
--- NOTE | 2019-04-03 21:28 | PN ---
Progress Note (short form) - Note Progress Note: Patient seen and examined Feels better Tmax 99.3 VSS Cor: RSR, No murmurs, No gallops Lungs: decreased at bases Abd: Soft, Normal bowel sounds, No organomegaly Ext:No significant edema Labs/Meds reviewed A/P 63 y/o patient with locally advanced squamous cell lung cancer, s/p chemo/RT, h/ o SVC syndrome on lovenox, admitted with fevers ? post obstructive pneumonitis-- -On Zosyn CT --rt. hilar mass with mediastinal involvement and diffuse right lung opacities clinically improving for PRBC transfusion IV fluids Granix as necessary On lovenox for h/o SVC syndrome. Platelets --55,000 Monitor will follow
[2019-04-03] MEDS: ZOLPIDEM TARTRATE 5 MG TABLET PO PRN (23:54)
[2019-04-04] MEDS ORDERED: DEXTROSE 5%-WATER - 50 ML IVPB ONE ×3 (01:27→17:41)
[2019-04-04] MEDS ORDERED: PIPERACILLIN/TAZOBACTAM 3.375 GM VIAL IVPB ONE ×3 (01:27→17:41)
[2019-04-04] MEDS: ROSUVASTATIN CA 40 MG TABLET PO SCH (01:48)
[2019-04-04] MEDS: PIPERACILLIN/TAZOB 3.375 GM 3.375 GM in DEXTROSE 5%-WATER - 50 ML IVPB SCH ×3 (02:07→17:54)
[2019-04-04] MEDS: oxyCODONE HCL 5 MG TABLET PO PRN ×4 (05:20→23:10)
[2019-04-04] MEDS: ONDANSETRON 8 MG TABLET (FP) PO SCH ×3 (05:23→21:05)
[2019-04-04] MEDS: NYSTATIN 500,000 UNITS TABLET PO SCH ×3 (05:23→21:05)
[2019-04-04] MEDS: ACETAMINOPHEN 325 MG TABLET (FP) PO PRN (05:28)
[2019-04-04 06:31] LABS: HEMATOCRIT 25.8 % (35.4-49); HEMOGLOBIN 8.9 GM/dL (11.7-16.9); MCH 31.7 pg (25.7-33.7); MCHC 34.4 g/dl (32.0-35.9); MEAN CELL VOLUME 92.1 fl (80-96); MEAN PLT VOLUME 7.2 fl (7.5-11.1); PLATELET COUNT 55 K/MM3 (134-434); RDW 14.5 % (11.9-15.9)
[2019-04-04 07:34] LABS: ALBUMIN 2.6 g/dl (3.4-5.0); BILIRUBIN,TOTAL 0.2 mg/dL (0.2-1); BLOOD UREA NITROGEN 3.8 mg/dL (7-18); CALCIUM 8.3 mg/dL (8.5-10.1); CREATININE 0.7 mg/dL (0.55-1.3); MAGNESIUM 1.9 mg/dL (1.8-2.4); TOT PROT 5.9 g/dl (6.4-8.2)
--- NOTE | 2019-04-04 08:53 | PN ---
Progress Note (short form) - Note Progress Note: Eating breakfast. Looks better today. Said he saw a a few drops of bright blood admixed with sputum last night. No further hemoptysis. No CP or SOB. Intake & Output 04/01/19 04/02/19 04/03/19 04/04/19 23:59 23:59 23:59 23:59 Intake Total 421 503 9206 50 Output Total 600 600 650 Balance -450 50 950 50 Last Vital Signs Temp Pulse Resp BP Pulse Ox 99 F 86 20 116/71 95 04/04/19 06:00 04/04/19 06:00 04/04/19 06:00 04/04/19 06:00 04/03/19 21:00 Active Medications Acetaminophen (Tylenol -) 650 mg PO Q4H PRN PRN Reason: PAIN OR FEVER Last Admin: 04/04/19 05:28 Dose: 650 mg Albuterol Sulfate (Ventolin 0.083% Nebulizer Soln -) 1 amp NEB Q4H PRN PRN Reason: SHORT OF BREATH/WHEEZING Last Admin: 03/31/19 07:57 Dose: 1 amp Diltiazem HCl (Cardizem Cd -) 120 mg PO DAILY [facility] Last Admin: 04/03/19 11:14 Dose: Not Given Enoxaparin Sodium (Lovenox -) 100 mg SQ BID [facility] Last Admin: 04/03/19 23:15 Dose: 100 mg Ergocalciferol (Drisdol -) 50,000 unit PO Sa [facility] Last Admin: 04/01/19 17:13 Dose: Not Given Gabapentin (Neurontin -) 300 mg PO BID [facility] Last Admin: 04/03/19 23:15 Dose: 300 mg Piperacillin Sod/Tazobactam (Sod 3.375 gm/ Dextrose) 50 mls @ 100 mls/hr IVPB Q8H-IV [facility]; Protocol Last Admin: 04/04/19 02:07 Dose: 100 mls/hr Sodium Chloride (Normal Saline -) 1,000 mls @ 75 mls/hr IV ASDIR [facility] Last Admin: 04/03/19 11:10 Dose: 75 mls/hr Lactobacillus Acidophilus (Bacid -) 1 tab PO DAILY [facility] Last Admin: 04/03/19 11:12 Dose: 1 tab Morphine Sulfate (Ms Contin -) 30 mg PO BID [facility] Last Admin: 04/03/19 23:15 Dose: 30 mg Nystatin (Nystatin) 500,000 unit PO TID [facility] Last Admin: 04/04/19 05:23 Dose: 500,000 unit Ondansetron HCl (Zofran -) 8 mg PO TID [facility] Last Admin: 04/04/19 05:23 Dose: 8 mg Oxycodone HCl (Roxicodone -) 30 mg PO Q6H PRN PRN Reason: PAIN LEVEL 6-10 Last Admin: 04/04/19 05:20 Dose: 30 mg Pantoprazole Sodium (Protonix -) 40 mg PO DAILY [facility] Last Admin: 04/03/19 11:12 Dose: 40 mg Rosuvastatin Calcium (Crestor -) 40 mg PO HS [facility] Sotalol HCl (Betapace -) 80 mg PO BID [facility] Last Admin: 04/03/19 23:15 Dose: 80 mg Tiotropium [place]/Olodaterol (Stiolto Respimat Inhal [place]) 1 puff IH BID [facility] Last Admin: 04/04/19 00:00 Dose: 1 puff Zolpidem Tartrate (Ambien -) 5 mg PO HS PRN PRN Reason: INSOMNIA Last Admin: 04/03/19 23:54 Dose: 5 mg Constitutional: Yes: NAD Cardiovascular: Yes: Regular Rate and Rhythm Respiratory: Yes: Diminished Gastrointestinal: Yes: Soft Genitourinary: Yes: WNL Musculoskeletal: Yes: Muscle Weakness Extremities: Yes: Other Edema: No Peripheral Pulses WNL: Yes Integumentary: Yes: WNL Neurological: Yes: WNL Labs: Laboratory Results - last 24 hr 04/03/19 04/03/19 04/04/19 06:20 10:36 06:18 WBC RBC Hgb Hct MCV MCH MCHC RDW Plt Count MPV Neutrophils % (Manual) 72.7 Band Neutrophils % 1.0 Lymphocytes % (Manual) 24.3 Monocytes % (Manual) 2 L Eosinophils % (Manual) 0.0 D Basophils % (Manual) 0.0 Myelocytes % (Man) 0 D Promyelocytes % (Man) 0 Blast Cells % (Manual) 0 Metamyelocytes 0 Hypochromia 0 Platelet Estimate Decreased Polychromasia 1+ Poikilocytosis 0 Anisocytosis 1+ Microcytosis 1+ Macrocytosis 0 Sodium 141 Potassium 4.0 Chloride 105 Carbon Dioxide 30 Anion Gap 7 L BUN 3.8 L Creatinine 0.7 Est GFR (CKD-EPI)AfAm 116.40 Est GFR (CKD-EPI)NonAf 100.43 Random Glucose 97 Calcium 8.3 L Magnesium 1.9 Total Bilirubin 0.2 AST 68 H ALT 88 H Alkaline Phosphatase 46 Total Protein 5.9 L Albumin 2.6 L Blood Type O POSITIVE Antibody Screen Negative Crossmatch See Detail 04/04/19 06:18 WBC 2.0 L RBC 2.80 L Hgb 8.9 L Hct 25.8 L MCV 92.1 MCH 31.7 MCHC 34.4 RDW 14.5 Plt Count 55 L MPV 7.2 L Neutrophils % (Manual) Band Neutrophils % Lymphocytes % (Manual) Monocytes % (Manual) Eosinophils % (Manual) Basophils % (Manual) Myelocytes % (Man) Promyelocytes % (Man) Blast Cells % (Manual) Metamyelocytes Hypochromia Platelet Estimate Polychromasia Poikilocytosis Anisocytosis Microcytosis Macrocytosis Sodium Potassium Chloride Carbon Dioxide Anion Gap BUN Creatinine Est GFR (CKD-EPI)AfAm Est GFR (CKD-EPI)NonAf Random Glucose Calcium Magnesium Total Bilirubin AST ALT Alkaline Phosphatase Total Protein Albumin Blood Type Antibody Screen Crossmatch Problem List - Problems (1) Lactic acidosis Code(s): E87.2 - ACIDOSIS (2) Pneumonia Code(s): J18.9 - PNEUMONIA, UNSPECIFIED ORGANISM Qualifiers: Pneumonia type: due to unspecified organism Laterality: right Lung location: middle lobe of lung Qualified Code(s): J18.1 - Lobar pneumonia, unspecified organism (3) Sepsis Code(s): A41.9 - SEPSIS, UNSPECIFIED ORGANISM Qualifiers: Sepsis type: sepsis due to unspecified organism Sepsis acute organ dysfunction status: without acute organ dysfunction Qualified Code(s): A41.9 - Sepsis, unspecified organism (4) Shortness of breath Code(s): R06.02 - SHORTNESS OF BREATH (5) Acute respiratory failure Code(s): J96.00 - ACUTE RESPIRATORY FAILURE, UNSP W HYPOXIA OR HYPERCAPNIA Qualifiers: Respiratory failure complication: hypoxia Qualified Code(s): J96.01 - Acute respiratory failure with hypoxia (6) Afib Code(s): I48.91 - UNSPECIFIED ATRIAL FIBRILLATION (7) Anemia Code(s): D64.9 - ANEMIA, UNSPECIFIED Qualifiers: Anemia type: unspecified type Qualified Code(s): D64.9 - Anemia, unspecified (8) COPD (chronic obstructive pulmonary disease) Code(s): J44.9 - CHRONIC OBSTRUCTIVE PULMONARY DISEASE, UNSPECIFIED Qualifiers: COPD type: unspecified COPD Qualified Code(s): J44.9 - Chronic obstructive pulmonary disease, unspecified (9) DVT (deep venous thrombosis) Code(s): I82.409 - ACUTE EMBOLISM AND THOMBOS UNSP DEEP VN UNSP LOWER EXTREMITY Qualifiers: DVT location: upper extremity Affected thrombotic vein of extremity: other upper extremity vein Chronicity: acute Laterality: right Qualified Code(s) : I82.621 - Acute embolism and thrombosis of deep veins of right upper extremity (10) Squamous cell lung cancer Code(s): C34.90 - MALIGNANT NEOPLASM OF UNSP PART OF UNSP BRONCHUS OR LUNG Assessment/Plan Transfusional support IVF BP VTE prophylaxis Neupogen per Heme Pain control Monitor and quantify hemoptysis Dr Jean
[2019-04-04] MEDS ORDERED: PT OWN MED DRAWER 7, Y5N ONE ×2 (08:56→20:52)
[2019-04-04] MEDS: SOTALOL HCL 80 MG TABLET (FP) PO SCH ×2 (09:03→21:05)
[2019-04-04] MEDS: morphine SO4 SUSTAINED ACTING 30 MG TABLET.SA PO SCH ×2 (09:03→21:05)
[2019-04-04] MEDS: LACTOBACILLUS ACIDOPHILUS 1 TABLET PO SCH (09:03)
[2019-04-04] MEDS: TIOTROPIUM/OLODATEROL HCL (STIOLTO) 4 GM INHALER IH SCH ×3 (09:04→21:10)
[2019-04-04] MEDS: GABAPENTIN 300 MG CAPSULE (FP) PO SCH ×2 (09:04→21:05)
[2019-04-04] MEDS: PANTOPRAZOLE 40 MG TABLET (FP) PO SCH (09:04)
[2019-04-04] MEDS: ENOXAPARIN NA (PORCINE) 100 MG/1 ML DISP.SYRIN SQ SCH ×2 (09:05→21:05)
[2019-04-04] MEDS: SODIUM CHLORIDE 1,000 ML IV SCH (11:15)
--- NOTE | 2019-04-04 12:25 | PN ---
Progress Note, Physician Chief Complaint: Not in distress History of Present Illness: Patient was seen and examined. Awake and alert. Chart was reviewed Denies chest pain, SOB or palpitations Tolerating therapy - Current Medication List Current Medications: Active Medications Acetaminophen (Tylenol -) 650 mg PO Q4H PRN PRN Reason: PAIN OR FEVER Last Admin: 04/04/19 05:28 Dose: 650 mg Albuterol Sulfate (Ventolin 0.083% Nebulizer Soln -) 1 amp NEB Q4H PRN PRN Reason: SHORT OF BREATH/WHEEZING Last Admin: 03/31/19 07:57 Dose: 1 amp Diltiazem HCl (Cardizem Cd -) 120 mg PO DAILY [facility] Last Admin: 04/04/19 09:05 Dose: Not Given Enoxaparin Sodium (Lovenox -) 100 mg SQ BID [facility] Last Admin: 04/04/19 09:05 Dose: 100 mg Ergocalciferol (Drisdol -) 50,000 unit PO Sa [facility] Last Admin: 04/01/19 17:13 Dose: Not Given Gabapentin (Neurontin -) 300 mg PO BID [facility] Last Admin: 04/04/19 09:04 Dose: 300 mg Guaifenesin (Robitussin -) 10 ml PO Q4H PRN PRN Reason: COUGH Piperacillin Sod/Tazobactam (Sod 3.375 gm/ Dextrose) 50 mls @ 100 mls/hr IVPB Q8H-IV [facility]; Protocol Last Admin: 04/04/19 09:04 Dose: 100 mls/hr Sodium Chloride (Normal Saline -) 1,000 mls @ 75 mls/hr IV ASDIR [facility] Last Admin: 04/04/19 11:15 Dose: 75 mls/hr Lactobacillus Acidophilus (Bacid -) 1 tab PO DAILY [facility] Last Admin: 04/04/19 09:03 Dose: 1 tab Morphine Sulfate (Ms Contin -) 30 mg PO BID [facility] Last Admin: 04/04/19 09:03 Dose: 30 mg Nystatin (Nystatin) 500,000 unit PO TID [facility] Last Admin: 04/04/19 05:23 Dose: 500,000 unit Ondansetron HCl (Zofran -) 8 mg PO TID [facility] Last Admin: 04/04/19 05:23 Dose: 8 mg Oxycodone HCl (Roxicodone -) 30 mg PO Q6H PRN PRN Reason: PAIN LEVEL 6-10 Last Admin: 04/04/19 11:11 Dose: 30 mg Pantoprazole Sodium (Protonix -) 40 mg PO DAILY [facility] Last Admin: 04/04/19 09:04 Dose: 40 mg Rosuvastatin Calcium (Crestor -) 40 mg PO HS [facility] Sotalol HCl (Betapace -) 80 mg PO BID [facility] Last Admin: 04/04/19 09:03 Dose: 80 mg Tiotropium [place]/Olodaterol (Stiolto Respimat Inhal [place]) 1 puff IH BID [facility] Last Admin: 04/04/19 09:04 Dose: 1 puff Zolpidem Tartrate (Ambien -) 5 mg PO HS PRN PRN Reason: INSOMNIA Last Admin: 04/03/19 23:54 Dose: 5 mg - Objective Vital Signs: Vital Signs Temperature 98.2 F 04/04/19 09:12 Pulse Rate 84 04/04/19 09:12 Respiratory Rate 20 04/04/19 09:12 Blood Pressure 98/55 L 04/04/19 09:12 O2 Sat by Pulse Oximetry (%) 95 04/03/19 21:00 HENT: Yes: Atraumatic Neck: Yes: Supple Cardiovascular: Yes: Regular Rate and Rhythm, S1, S2 Respiratory: Yes: CTA Bilaterally Gastrointestinal: Yes: Normal Bowel Sounds, Soft. No: Tenderness Edema: No Labs: CBC, BMP 04/04/19 06:18 04/04/19 06:18 Problem List - Problems (1) Pneumonia Code(s): J18.9 - PNEUMONIA, UNSPECIFIED ORGANISM Qualifiers: Pneumonia type: due to unspecified organism Laterality: right Lung location: middle lobe of lung Qualified Code(s): J18.1 - Lobar pneumonia, unspecified organism (2) Sepsis Code(s): A41.9 - SEPSIS, UNSPECIFIED ORGANISM Qualifiers: Sepsis type: sepsis due to unspecified organism Sepsis acute organ dysfunction status: without acute organ dysfunction Qualified Code(s): A41.9 - Sepsis, unspecified organism (3) Shortness of breath Code(s): R06.02 - SHORTNESS OF BREATH (4) Acute respiratory failure Code(s): J96.00 - ACUTE RESPIRATORY FAILURE, UNSP W HYPOXIA OR HYPERCAPNIA Qualifiers: Respiratory failure complication: hypoxia Qualified Code(s): J96.01 - Acute respiratory failure with hypoxia (5) Anemia Code(s): D64.9 - ANEMIA, UNSPECIFIED Qualifiers: Anemia type: unspecified type Qualified Code(s): D64.9 - Anemia, unspecified (6) COPD (chronic obstructive pulmonary disease) Code(s): J44.9 - CHRONIC OBSTRUCTIVE PULMONARY DISEASE, UNSPECIFIED Qualifiers: COPD type: unspecified COPD Qualified Code(s): J44.9 - Chronic obstructive pulmonary disease, unspecified (7) Diastolic dysfunction with acute on chronic heart failure Code(s): I50.33 - ACUTE ON CHRONIC DIASTOLIC (CONGESTIVE) HEART FAILURE (8) HTN (hypertension) Code(s): I10 - ESSENTIAL (PRIMARY) HYPERTENSION Qualifiers: Hypertension type: essential hypertension Qualified Code(s): I10 - Essential (primary) hypertension (9) Paroxysmal atrial fibrillation Code(s): I48.0 - PAROXYSMAL ATRIAL FIBRILLATION (10) SVC syndrome Code(s): I87.1 - COMPRESSION OF VEIN (11) Squamous cell lung cancer Code(s): C34.90 - MALIGNANT NEOPLASM OF UNSP PART OF UNSP BRONCHUS OR LUNG Assessment/Plan 1. Post-obstructive pneumonia 2. Anemia post transfusion 3. 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 CAD/coronary artery calcification angina pectoris 6. Diastolic LV dysfunction with class 0 NYHA classification LV failure 7. Paroxysmal Atrial Fibrillation/paroxysmal atrial flutter [id number] score of 1 on anticoagulation on Lovenox 8. HTN/HCVD 9. COPD/emphysema 10. Chronic Hypoxic Respiratory Failure 11. History of Hepatitis C 12. OSAS 13. Hyperlipidemia PLAN: 1. Continue Lovenox 100 mg BID 2. Continue Betapace 80 mg BID with close monitoring of QTc interval 3. Continue Cardizem CD 120 mg QD as tolerated. Monitor BP 4. Continue Crestor 40 mg QHS 5. Antibiotic coverage, bronchodilator and O2 to keep SpO2 >90% Further plans are to follow Eladio Li MD
--- NOTE | 2019-04-04 13:49 | PN ---
Progress Note, Physician Chief Complaint: Pneumonia Lung CA History of Present Illness: Previous notes and events reviewed awake and alert NAD WBC~2.0 neutropenic precautions afebrile complain of blood in urine, RN unable to see urine because pt is continent and uses bathroom Hg 8.9 - Current Medication List Current Medications: Active Medications Acetaminophen (Tylenol -) 650 mg PO Q4H PRN PRN Reason: PAIN OR FEVER Last Admin: 04/04/19 05:28 Dose: 650 mg Albuterol Sulfate (Ventolin 0.083% Nebulizer Soln -) 1 amp NEB Q4H PRN PRN Reason: SHORT OF BREATH/WHEEZING Last Admin: 03/31/19 07:57 Dose: 1 amp Diltiazem HCl (Cardizem Cd -) 120 mg PO DAILY [facility] Last Admin: 04/04/19 09:05 Dose: Not Given Enoxaparin Sodium (Lovenox -) 100 mg SQ BID [facility] Last Admin: 04/04/19 09:05 Dose: 100 mg Ergocalciferol (Drisdol -) 50,000 unit PO Sa [facility] Last Admin: 04/01/19 17:13 Dose: Not Given Gabapentin (Neurontin -) 300 mg PO BID [facility] Last Admin: 04/04/19 09:04 Dose: 300 mg Guaifenesin (Robitussin -) 10 ml PO Q4H PRN PRN Reason: COUGH Piperacillin Sod/Tazobactam (Sod 3.375 gm/ Dextrose) 50 mls @ 100 mls/hr IVPB Q8H-IV [facility]; Protocol Last Admin: 04/04/19 09:04 Dose: 100 mls/hr Sodium Chloride (Normal Saline -) 1,000 mls @ 75 mls/hr IV ASDIR [facility] Last Admin: 04/04/19 11:15 Dose: 75 mls/hr Lactobacillus Acidophilus (Bacid -) 1 tab PO DAILY [facility] Last Admin: 04/04/19 09:03 Dose: 1 tab Morphine Sulfate (Ms Contin -) 30 mg PO BID [facility] Last Admin: 04/04/19 09:03 Dose: 30 mg Nystatin (Nystatin) 500,000 unit PO TID [facility] Last Admin: 04/04/19 05:23 Dose: 500,000 unit Ondansetron HCl (Zofran -) 8 mg PO TID [facility] Last Admin: 04/04/19 05:23 Dose: 8 mg Oxycodone HCl (Roxicodone -) 30 mg PO Q6H PRN PRN Reason: PAIN LEVEL 6-10 Last Admin: 04/04/19 11:11 Dose: 30 mg Pantoprazole Sodium (Protonix -) 40 mg PO DAILY [facility] Last Admin: 04/04/19 09:04 Dose: 40 mg Rosuvastatin Calcium (Crestor -) 40 mg PO HS [facility] Sotalol HCl (Betapace -) 80 mg PO BID [facility] Last Admin: 04/04/19 09:03 Dose: 80 mg Tiotropium [place]/Olodaterol (Stiolto Respimat Inhal [place]) 1 puff IH BID [facility] Last Admin: 04/04/19 09:04 Dose: 1 puff Zolpidem Tartrate (Ambien -) 5 mg PO HS PRN PRN Reason: INSOMNIA Last Admin: 04/03/19 23:54 Dose: 5 mg - Objective Vital Signs: Vital Signs Temperature 98.2 F 04/04/19 09:12 Pulse Rate 84 04/04/19 09:12 Respiratory Rate 20 04/04/19 09:12 Blood Pressure 98/55 L 04/04/19 09:12 O2 Sat by Pulse Oximetry (%) 95 04/03/19 21:00 Constitutional: Yes: No Distress, Calm Eyes: Yes: Conjunctiva Clear HENT: Yes: Atraumatic Cardiovascular: Yes: Regular Rate and Rhythm Respiratory: Yes: Regular, Diminished, On Nasal O2 Gastrointestinal: Yes: Normal Bowel Sounds, Soft Musculoskeletal: Yes: Muscle Weakness Extremities: Yes: WNL Edema: No Neurological: Yes: Alert, Oriented Psychiatric: Yes: Alert, Oriented Labs: CBC, BMP 04/04/19 06:18 04/04/19 06:18 INR, PTT INR 1.23 (0.83-1.09) H 03/28/19 02:00 Microbiology 03/28/19 02:00 Blood - Peripheral Venous Blood Culture - Final NO GROWTH AFTER 5 DAYS INCUBATION 03/28/19 02:00 Blood - Peripheral Venous Blood Culture - Final NO GROWTH AFTER 5 DAYS INCUBATION 03/28/19 18:40 Urine For Antigen Detection Legionella Antigen - Final 03/28/19 18:40 Urine For Antigen Detection Streptococcus pneumoniae Antigen (M - Final 03/28/19 05:20 Urine - Urine Clean Catch Urine Culture - Final NO GROWTH OBTAINED Problem List - Problems (1) Lactic acidosis Assessment/Plan: -LA 2.2 down to 1.6 -resolved Code(s): E87.2 - ACIDOSIS (2) Pneumonia Assessment/Plan: -Chest CT scan shows small right effusion which may be partially loculated and shows some extension into the fissures -Pulm and ID on board -bronchodilators -Zosyn -BC neg -Urine Legionella neg Code(s): J18.9 - PNEUMONIA, UNSPECIFIED ORGANISM Qualifiers: Pneumonia type: due to unspecified organism Laterality: right Lung location: middle lobe of lung Qualified Code(s): J18.1 - Lobar pneumonia, unspecified organism (3) Sepsis Assessment/Plan: -Chest CT scan shows small right effusion which may be partially loculated and shows some extension into the fissures -ID on board -bronchodilators -Zosyn -BC neg -Urine Legionella neg -UC neg -LA 1.6 Code(s): A41.9 - SEPSIS, UNSPECIFIED ORGANISM Qualifiers: Sepsis type: sepsis due to unspecified organism Sepsis acute organ dysfunction status: without acute organ dysfunction Qualified Code(s): A41.9 - Sepsis, unspecified organism (4) Afib Assessment/Plan: -Lovenox Code(s): I48.91 - UNSPECIFIED ATRIAL FIBRILLATION (5) COPD (chronic obstructive pulmonary disease) Assessment/Plan: -Pulm on board -bronchodilators -keep SpO2 >90% -O2 via [place] -Stiolto -Chest CT scan shows advanced COPD Code(s): J44.9 - CHRONIC OBSTRUCTIVE PULMONARY DISEASE, UNSPECIFIED Qualifiers: COPD type: unspecified COPD Qualified Code(s): J44.9 - Chronic obstructive pulmonary disease, unspecified (6) DVT (deep venous thrombosis) Assessment/Plan: -Lovenox Code(s): I82.409 - ACUTE EMBOLISM AND THOMBOS UNSP DEEP VN UNSP LOWER EXTREMITY Qualifiers: DVT location: upper extremity Affected thrombotic vein of extremity: other upper extremity vein Chronicity: acute Laterality: right Qualified Code(s) : I82.621 - Acute embolism and thrombosis of deep veins of right upper extremity (7) HTN (hypertension) Assessment/Plan: -Sotalol -low Na diet Code(s): I10 - ESSENTIAL (PRIMARY) HYPERTENSION Qualifiers: Hypertension type: essential hypertension Qualified Code(s): I10 - Essential (primary) hypertension (8) Lung cancer Assessment/Plan: -Oncology on board -receiving chemotherapy -Chest CT scan shows multiple lung nodules -WBC~2.0 -neutropenic precautions Code(s): C34.90 - MALIGNANT NEOPLASM OF UNSP PART OF UNSP BRONCHUS OR LUNG Qualifiers: Laterality: right Lung location: upper lobe of lung Qualified Code(s): C34.11 - Malignant neoplasm of upper lobe, right bronchus or lung Assessment/Plan see problem list dvt ppx
--- NOTE | 2019-04-04 17:21 | PN ---
Progress Note (short form) - Note Progress Note: Patient seen and examined Neutropenia - WBC improving - no diff performed Remains on O-2 Dyspneic and tachypneic Last Vital Signs Temp Pulse Resp BP Pulse Ox 98.9 F 94 H 20 100/64 95 04/04/19 14:01 04/04/19 14:01 04/04/19 14:01 04/04/19 14:01 04/04/19 09:00 Lungs- rhonhi, diminished breath sounds Cor-RSR Abd- soft Ext- no significant edema CBC, BMP 04/04/19 06:18 04/04/19 06:18 Current Medications Generic Name Dose Route Start Last Admin Trade Name Freq PRN Reason Stop Dose Admin Acetaminophen 650 mg 03/28/19 11:00 04/04/19 05:28 Tylenol - PO 650 mg Q4H PRN Administration PAIN OR FEVER Albuterol Sulfate 1 amp 03/28/19 10:59 03/31/19 07:57 Ventolin 0.083% Nebulizer Soln - NEB 1 amp Q4H PRN Administration SHORT OF BREATH/WHEEZING Diltiazem HCl 120 mg 03/28/19 11:00 04/04/19 09:05 Cardizem Cd - PO Not Given DAILY ALONDRA Enoxaparin Sodium 100 mg 03/28/19 11:00 04/04/19 09:05 Lovenox - SQ 100 mg BID ALONDRA Administration Ergocalciferol 50,000 unit 04/01/19 10:00 04/01/19 17:13 Drisdol - PO Not Given Sa ALONDRA Gabapentin 300 mg 03/28/19 11:00 04/04/19 09:04 Neurontin - PO 300 mg BID ALONDRA Administration Guaifenesin 10 ml 04/04/19 11:52 Robitussin - PO Q4H PRN COUGH Piperacillin Sod/Tazobactam 50 mls @ 100 mls/hr 03/28/19 18:00 04/04/19 09:04 Sod 3.375 gm/ Dextrose IVPB 100 mls/hr Q8H-IV ALONDRA Administration Protocol Sodium Chloride 1,000 mls @ 75 mls/hr 04/03/19 09:00 04/04/19 11:15 Normal Saline - IV 75 mls/hr ASDIR ALON[facility]A Administration Lactobacillus Acidophilus 1 tab 04/03/19 10:00 04/04/19 09:03 Bacid - PO 1 tab DAILY ALON[facility]A Administration Morphine Sulfate 30 mg 03/28/19 12:26 04/04/19 09:03 Ms Contin - PO 30 mg BID ALONDRA Administration Nystatin 500,000 unit 03/31/19 14:00 04/04/19 13:57 Nystatin PO 500,000 unit TID ALONDRA Administration Ondansetron HCl 8 mg 03/28/19 14:00 04/04/19 13:57 Zofran - PO 8 mg TID ALONDRA Administration Oxycodone HCl 30 mg 03/30/19 13:55 04/04/19 11:11 Roxicodone - PO 30 mg Q6H PRN Administration PAIN LEVEL 6-10 Pantoprazole Sodium 40 mg 03/28/19 11:00 04/04/19 09:04 Protonix - PO 40 mg DAILY ALONDRA Administration Rosuvastatin Calcium 40 mg 04/04/19 22:00 Crestor - PO HS ALONDRA Sotalol HCl 80 mg 03/28/19 11:00 04/04/19 09:03 Betapace - PO 80 mg BID ALONDRA Administration Tiotropium [place]/Olodaterol 1 puff 03/28/19 22:00 04/04/19 09:04 Stiolto Respimat Inhal [place] IH 1 puff BID ALONDRA Administration Zolpidem Tartrate 5 mg 03/28/19 20:43 04/03/19 23:54 Ambien - PO 5 mg HS PRN Administration INSOMNIA Impression: SCC Lung ?Post - obstructive pneumonitis Neutropenia Abnormal LFT's Plan: Granix CBC with diff Continue antibiotics until WBC recovery
[2019-04-04] MEDS: ALBUTEROL SO4 0.083% IH SOL 2.5 MG/3 ML VIAL.NEB. NEB PRN (19:50)
--- NOTE | 2019-04-04 20:50 | PN ---
Progress Note, Physician History of Present Illness: AWAKE, ALERT IN BED STILL WITH C/O DRY COUGH CENIES CHEST PAIN/ DYSPNEA AFEBRILE WBC SL IMPROVED CULTURES NO GROWTH - Current Medication List Current Medications: Active Medications Acetaminophen (Tylenol -) 650 mg PO Q4H PRN PRN Reason: PAIN OR FEVER Last Admin: 04/04/19 05:28 Dose: 650 mg Albuterol Sulfate (Ventolin 0.083% Nebulizer Soln -) 1 amp NEB Q4H PRN PRN Reason: SHORT OF BREATH/WHEEZING Last Admin: 03/31/19 07:57 Dose: 1 amp Diltiazem HCl (Cardizem Cd -) 120 mg PO DAILY [facility] Last Admin: 04/04/19 09:05 Dose: Not Given Enoxaparin Sodium (Lovenox -) 100 mg SQ BID [facility] Last Admin: 04/04/19 09:05 Dose: 100 mg Ergocalciferol (Drisdol -) 50,000 unit PO Sa [facility] Last Admin: 04/01/19 17:13 Dose: Not Given Gabapentin (Neurontin -) 300 mg PO BID [facility] Last Admin: 04/04/19 09:04 Dose: 300 mg Guaifenesin (Robitussin -) 10 ml PO Q4H PRN PRN Reason: COUGH Piperacillin Sod/Tazobactam (Sod 3.375 gm/ Dextrose) 50 mls @ 100 mls/hr IVPB Q8H-IV ALONDRA; Protocol Last Admin: 04/04/19 17:54 Dose: 100 mls/hr Sodium Chloride (Normal Saline -) 1,000 mls @ 75 mls/hr IV ASDIR [facility] Last Admin: 04/04/19 11:15 Dose: 75 mls/hr Lactobacillus Acidophilus (Bacid -) 1 tab PO DAILY [facility] Last Admin: 04/04/19 09:03 Dose: 1 tab Morphine Sulfate (Ms Contin -) 30 mg PO BID [facility] Last Admin: 04/04/19 09:03 Dose: 30 mg Nystatin (Nystatin) 500,000 unit PO TID [facility] Last Admin: 04/04/19 13:57 Dose: 500,000 unit Ondansetron HCl (Zofran -) 8 mg PO TID [facility] Last Admin: 04/04/19 13:57 Dose: 8 mg Oxycodone HCl (Roxicodone -) 30 mg PO Q6H PRN PRN Reason: PAIN LEVEL 6-10 Last Admin: 04/04/19 17:53 Dose: 30 mg Pantoprazole Sodium (Protonix -) 40 mg PO DAILY [facility] Last Admin: 04/04/19 09:04 Dose: 40 mg Rosuvastatin Calcium (Crestor -) 40 mg PO HS [facility] Sotalol HCl (Betapace -) 80 mg PO BID [facility] Last Admin: 04/04/19 09:03 Dose: 80 mg Tbo-Filgrastim (Granix -) 480 mcg SQ DAILY [facility] Tiotropium [place]/Olodaterol (Stiolto Respimat Inhal [place]) 1 puff IH BID [facility] Last Admin: 04/04/19 09:04 Dose: 1 puff Zolpidem Tartrate (Ambien -) 5 mg PO HS PRN PRN Reason: INSOMNIA Last Admin: 04/03/19 23:54 Dose: 5 mg - Objective Vital Signs: Vital Signs Temperature 98.1 F 04/04/19 17:30 Pulse Rate 89 04/04/19 17:30 Respiratory Rate 20 04/04/19 17:30 Blood Pressure 110/74 04/04/19 17:30 O2 Sat by Pulse Oximetry (%) 95 04/04/19 09:00 Constitutional: Yes: No Distress Eyes: Yes: Conjunctiva Clear Cardiovascular: Yes: Regular Rate and Rhythm, S1, S2 Respiratory: Yes: Rhonchi Gastrointestinal: Yes: Normal Bowel Sounds, Soft Edema: No Labs: CBC, BMP 04/04/19 06:18 04/04/19 06:18 INR, PTT INR 1.23 (0.83-1.09) H 03/28/19 02:00 Assessment/Plan FEVER/ NEUTROPENIA PANCYTOPENIA ? POST OBSTRUCTIVE PNEUMONIA LUNG CA CONTINUE EMPIRIC ZOSYN
[2019-04-04] MEDS: ZOLPIDEM TARTRATE 5 MG TABLET PO PRN (23:10)
[2019-04-04] MEDS: ROSUVASTATIN CA 20 MG TABLET (FP) PO SCH (23:10)
[2019-04-05] MEDS: guaiFENesin 200 MG/10 ML 10 ML UNIT-DOSE CUPS PO PRN ×3 (00:08→22:06)
[2019-04-05] MEDS ORDERED: DEXTROSE 5%-WATER - 50 ML IVPB ONE ×3 (01:48→17:08)
[2019-04-05] MEDS ORDERED: PIPERACILLIN/TAZOBACTAM 3.375 GM VIAL IVPB ONE ×3 (01:48→17:08)
[2019-04-05] MEDS: SODIUM CHLORIDE 1,000 ML IV SCH ×3 (01:54→22:06)
[2019-04-05] MEDS: PIPERACILLIN/TAZOB 3.375 GM 3.375 GM in DEXTROSE 5%-WATER - 50 ML IVPB SCH ×3 (01:54→17:57)
[2019-04-05] MEDS: ACETAMINOPHEN 325 MG TABLET (FP) PO PRN ×2 (06:13→22:24)
[2019-04-05] MEDS: NYSTATIN 500,000 UNITS TABLET PO SCH ×3 (06:13→21:05)
[2019-04-05] MEDS: ONDANSETRON 8 MG TABLET (FP) PO SCH ×3 (06:13→21:05)
[2019-04-05 07:05] LABS: BASO % 0.1 % (0-2.0); EOS % 0.4 % (0-4.5); HEMATOCRIT 27.3 % (35.4-49); LYMPH % 12.4 % (8-40); MCH 30.9 pg (25.7-33.7); MCHC 32.9 g/dl (32.0-35.9); MEAN PLT VOLUME 7.9 fl (7.5-11.1); MONO % 8.9 % (3.8-10.2); NEUT % 78.2 % (42.8-82.8); PLATELET COUNT 50 K/MM3 (134-434); RDW 14.8 % (11.9-15.9); WHITE BLOOD COUNT 3.5 K/mm3 (4.0-10.0)
[2019-04-05 08:06] LABS: ALBUMIN 2.7 g/dl (3.4-5.0); BILIRUBIN,TOTAL 0.2 mg/dL (0.2-1); CALCIUM 8.1 mg/dL (8.5-10.1); CREATININE 0.7 mg/dL (0.55-1.3); POTASSIUM 3.7 mmol/L (3.5-5.1); TOT PROT 5.8 g/dl (6.4-8.2)
[2019-04-05 08:09] LABS: BLOOD UREA NITROGEN 2.6 mg/dL (7-18)
--- NOTE | 2019-04-05 08:59 | PN ---
Progress Note, Physician Chief Complaint: Pneumonia Lung CA History of Present Illness: Previous notes and events reviewed awake and alert NAD WBC~3.5 neutropenic precautions afebrile patient complain of productive cough with blood tinge sputum, denies chest pain , SOB, - Current Medication List Current Medications: Active Medications Acetaminophen (Tylenol -) 650 mg PO Q4H PRN PRN Reason: PAIN OR FEVER Last Admin: 04/05/19 06:13 Dose: 650 mg Albuterol Sulfate (Ventolin 0.083% Nebulizer Soln -) 1 amp NEB Q4H PRN PRN Reason: SHORT OF BREATH/WHEEZING Last Admin: 04/04/19 19:50 Dose: 1 amp Diltiazem HCl (Cardizem Cd -) 120 mg PO DAILY [facility] Last Admin: 04/04/19 09:05 Dose: Not Given Enoxaparin Sodium (Lovenox -) 100 mg SQ BID [facility] Last Admin: 04/04/19 21:05 Dose: 100 mg Ergocalciferol (Drisdol -) 50,000 unit PO Sa [facility] Last Admin: 04/01/19 17:13 Dose: Not Given Gabapentin (Neurontin -) 300 mg PO BID [facility] Last Admin: 04/04/19 21:05 Dose: 300 mg Guaifenesin (Robitussin -) 10 ml PO Q4H PRN PRN Reason: COUGH Last Admin: 04/05/19 00:08 Dose: 10 ml Piperacillin Sod/Tazobactam (Sod 3.375 gm/ Dextrose) 50 mls @ 100 mls/hr IVPB Q8H-IV ALONDRA; Protocol Last Admin: 04/05/19 01:54 Dose: 100 mls/hr Sodium Chloride (Normal Saline -) 1,000 mls @ 75 mls/hr IV ASDIR [facility] Last Admin: 04/05/19 01:54 Dose: 75 mls/hr Lactobacillus Acidophilus (Bacid -) 1 tab PO DAILY [facility] Last Admin: 04/04/19 09:03 Dose: 1 tab Morphine Sulfate (Ms Contin -) 30 mg PO BID [facility] Last Admin: 04/04/19 21:05 Dose: 30 mg Nystatin (Nystatin) 500,000 unit PO TID [facility] Last Admin: 04/05/19 06:13 Dose: 500,000 unit Ondansetron HCl (Zofran -) 8 mg PO TID [facility] Last Admin: 04/05/19 06:13 Dose: 8 mg Oxycodone HCl (Roxicodone -) 30 mg PO Q6H PRN PRN Reason: PAIN LEVEL 6-10 Last Admin: 04/04/19 23:10 Dose: 30 mg Pantoprazole Sodium (Protonix -) 40 mg PO DAILY [facility] Last Admin: 04/04/19 09:04 Dose: 40 mg Rosuvastatin Calcium (Crestor -) 40 mg PO HS [facility] Last Admin: 04/04/19 23:10 Dose: 40 mg Sotalol HCl (Betapace -) 80 mg PO BID [facility] Last Admin: 04/04/19 21:05 Dose: 80 mg Tbo-Filgrastim (Granix -) 480 mcg SQ DAILY [facility] Tiotropium [place]/Olodaterol (Stiolto Respimat Inhal [place]) 1 puff IH BID [facility] Last Admin: 04/04/19 21:10 Dose: 1 puff Zolpidem Tartrate (Ambien -) 5 mg PO HS PRN PRN Reason: INSOMNIA Last Admin: 04/04/19 23:10 Dose: 5 mg - Objective Vital Signs: Vital Signs Temperature 98.3 F 04/05/19 06:27 Pulse Rate 96 H 04/05/19 06:27 Respiratory Rate 24 H 04/05/19 06:27 Blood Pressure 108/65 04/05/19 06:27 O2 Sat by Pulse Oximetry (%) 94 L 04/04/19 21:00 Constitutional: Yes: No Distress, Calm Eyes: Yes: Conjunctiva Clear HENT: Yes: Atraumatic Cardiovascular: Yes: Regular Rate and Rhythm Respiratory: Yes: Regular, On Nasal O2, Wheezes Gastrointestinal: Yes: Normal Bowel Sounds, Soft Musculoskeletal: Yes: Muscle Weakness Extremities: Yes: WNL Edema: No Neurological: Yes: Alert, Oriented Psychiatric: Yes: Alert, Oriented Labs: CBC, BMP 04/05/19 06:38 04/05/19 06:38 INR, PTT INR 1.23 (0.83-1.09) H 03/28/19 02:00 Microbiology 03/28/19 02:00 Blood - Peripheral Venous Blood Culture - Final NO GROWTH AFTER 5 DAYS INCUBATION 03/28/19 02:00 Blood - Peripheral Venous Blood Culture - Final NO GROWTH AFTER 5 DAYS INCUBATION 03/28/19 18:40 Urine For Antigen Detection Legionella Antigen - Final 03/28/19 18:40 Urine For Antigen Detection Streptococcus pneumoniae Antigen (M - Final 03/28/19 05:20 Urine - Urine Clean Catch Urine Culture - Final NO GROWTH OBTAINED Problem List - Problems (1) Lactic acidosis Assessment/Plan: -LA 2.2 down to 1.6 -resolved Code(s): E87.2 - ACIDOSIS (2) Pneumonia Assessment/Plan: -Chest CT scan shows small right effusion which may be partially loculated and shows some extension into the fissures -Pulm and ID on board -bronchodilators -Zosyn -BC neg -Urine Legionella neg -Sputum culture Code(s): J18.9 - PNEUMONIA, UNSPECIFIED ORGANISM Qualifiers: Pneumonia type: due to unspecified organism Laterality: right Lung location: middle lobe of lung Qualified Code(s): J18.1 - Lobar pneumonia, unspecified organism (3) Sepsis Assessment/Plan: -Chest CT scan shows small right effusion which may be partially loculated and shows some extension into the fissures -ID on board -bronchodilators -Zosyn -BC neg -Urine Legionella neg -UC neg -LA 1.6 Code(s): A41.9 - SEPSIS, UNSPECIFIED ORGANISM Qualifiers: Sepsis type: sepsis due to unspecified organism Sepsis acute organ dysfunction status: without acute organ dysfunction Qualified Code(s): A41.9 - Sepsis, unspecified organism (4) Afib Assessment/Plan: -Lovenox Code(s): I48.91 - UNSPECIFIED ATRIAL FIBRILLATION (5) COPD (chronic obstructive pulmonary disease) Assessment/Plan: -Pulm on board -bronchodilators -keep SpO2 >90% -O2 via NC -Stiolto -Chest CT scan shows advanced COPD Code(s): J44.9 - CHRONIC OBSTRUCTIVE PULMONARY DISEASE, UNSPECIFIED Qualifiers: COPD type: unspecified COPD Qualified Code(s): J44.9 - Chronic obstructive pulmonary disease, unspecified (6) DVT (deep venous thrombosis) Assessment/Plan: -Lovenox Code(s): I82.409 - ACUTE EMBOLISM AND THOMBOS UNSP DEEP VN UNSP LOWER EXTREMITY Qualifiers: DVT location: upper extremity Affected thrombotic vein of extremity: other upper extremity vein Chronicity: acute Laterality: right Qualified Code(s) : I82.621 - Acute embolism and thrombosis of deep veins of right upper extremity (7) HTN (hypertension) Assessment/Plan: -Sotalol -low Na diet Code(s): I10 - ESSENTIAL (PRIMARY) HYPERTENSION Qualifiers: Hypertension type: essential hypertension Qualified Code(s): I10 - Essential (primary) hypertension (8) Lung cancer Assessment/Plan: -Oncology on board -receiving chemotherapy -Chest CT scan shows multiple lung nodules -WBC~3.5, showing uptrend continue to monitor -neutropenic precautions Code(s): C34.90 - MALIGNANT NEOPLASM OF UNSP PART OF UNSP BRONCHUS OR LUNG Qualifiers: Laterality: right Lung location: upper lobe of lung Qualified Code(s): C34.11 - Malignant neoplasm of upper lobe, right bronchus or lung Assessment/Plan see problem list dvt ppx
[2019-04-05] MEDS: TIOTROPIUM/OLODATEROL HCL (STIOLTO) 4 GM INHALER IH SCH ×2 (09:58→21:08)
[2019-04-05] MEDS ORDERED: TBO-FILGRASTIM 480 MCG/0.8 ML DISP.SYRIN SQ SCH (10:00)
[2019-04-05] MEDS: PANTOPRAZOLE 40 MG TABLET (FP) PO SCH (10:17)
[2019-04-05] MEDS: GABAPENTIN 300 MG CAPSULE (FP) PO SCH ×2 (10:18→21:05)
[2019-04-05] MEDS: morphine SO4 SUSTAINED ACTING 30 MG TABLET.SA PO SCH ×2 (10:19→21:05)
[2019-04-05] MEDS: LACTOBACILLUS ACIDOPHILUS 1 TABLET PO SCH (10:25)
[2019-04-05] MEDS: SOTALOL HCL 80 MG TABLET (FP) PO SCH ×2 (10:25→21:04)
[2019-04-05] MEDS: ENOXAPARIN NA (PORCINE) 100 MG/1 ML DISP.SYRIN SQ SCH ×2 (10:26→21:04)
[2019-04-05] MEDS: oxyCODONE HCL 5 MG TABLET PO PRN ×2 (12:44→22:05)
--- NOTE | 2019-04-05 13:14 | PN ---
Progress Note (short form) - Note Progress Note: PULMONARY No further fevers. +nonproductive cough. Vital Signs Period Temp Pulse Resp BP Sys/Gtz Pulse Ox Last 24 Hr 98 F-98.9 F 89-96 20-24 100-114/64-74 94 Gen: NAD at rest Heart: RRR Lung: decreased breath sounds at the bases Abd: soft, nontender Ext: no edema CBC, BMP 04/05/19 06:38 04/05/19 06:38 Active Medications Acetaminophen (Tylenol -) 650 mg PO Q4H PRN PRN Reason: PAIN OR FEVER Last Admin: 04/05/19 06:13 Dose: 650 mg Albuterol Sulfate (Ventolin 0.083% Nebulizer Soln -) 1 amp NEB Q4H PRN PRN Reason: SHORT OF BREATH/WHEEZING Last Admin: 04/04/19 19:50 Dose: 1 amp Diltiazem HCl (Cardizem Cd -) 120 mg PO DAILY [facility] Last Admin: 04/05/19 11:52 Dose: Not Given Enoxaparin Sodium (Lovenox -) 100 mg SQ BID [facility] Last Admin: 04/05/19 10:26 Dose: 100 mg Ergocalciferol (Drisdol -) 50,000 unit PO Sa [facility] Last Admin: 04/01/19 17:13 Dose: Not Given Gabapentin (Neurontin -) 300 mg PO BID [facility] Last Admin: 04/05/19 10:18 Dose: 300 mg Guaifenesin (Robitussin -) 10 ml PO Q4H PRN PRN Reason: COUGH Last Admin: 04/05/19 10:26 Dose: 10 ml Piperacillin Sod/Tazobactam (Sod 3.375 gm/ Dextrose) 50 mls @ 100 mls/hr IVPB Q8H-IV ALONDRA; Protocol Last Admin: 04/05/19 10:50 Dose: 100 mls/hr Sodium Chloride (Normal Saline -) 1,000 mls @ 75 mls/hr IV ASDIR ALONDRA Last Admin: 04/05/19 10:25 Dose: 75 mls/hr Lactobacillus Acidophilus (Bacid -) 1 tab PO DAILY [facility] Last Admin: 04/05/19 10:25 Dose: 1 tab Morphine Sulfate (Ms Contin -) 30 mg PO BID [facility] Last Admin: 04/05/19 10:19 Dose: 30 mg Nystatin (Nystatin) 500,000 unit PO TID [facility] Last Admin: 04/05/19 06:13 Dose: 500,000 unit Ondansetron HCl (Zofran -) 8 mg PO TID [facility] Last Admin: 04/05/19 06:13 Dose: 8 mg Oxycodone HCl (Roxicodone -) 30 mg PO Q6H PRN PRN Reason: PAIN LEVEL 6-10 Last Admin: 04/05/19 12:44 Dose: 30 mg Pantoprazole Sodium (Protonix -) 40 mg PO DAILY [facility] Last Admin: 04/05/19 10:17 Dose: 40 mg Rosuvastatin Calcium (Crestor -) 40 mg PO HS [facility] Last Admin: 04/04/19 23:10 Dose: 40 mg Sotalol HCl (Betapace -) 80 mg PO BID [facility] Last Admin: 04/05/19 10:25 Dose: 80 mg Tbo-Filgrastim (Granix -) 480 mcg SQ DAILY [facility] Last Admin: 04/05/19 13:07 Dose: 480 mcg Tiotropium [place]/Olodaterol (Stiolto Respimat Inhal [place]) 1 puff IH BID [facility] Last Admin: 04/04/19 21:10 Dose: 1 puff Zolpidem Tartrate (Ambien -) 5 mg PO HS PRN PRN Reason: INSOMNIA Last Admin: 04/04/19 23:10 Dose: 5 mg A/P r/o Post Obstructive Pneumonia Leukopenia NSCLC on chemo Chronic Hypoxic Respiratory Failure COPD Pulmonary HTN h/o SVC syndrome Paroxysmal Atrial fibrillation Lactic Acidosis HTN Hyperlipidemia LISA - continue antibiotics per ID - monitor WBC - inhaled bronchodilators - O2 to keep SpO2 >90% - rate controlled - continue anticoagulation
--- NOTE | 2019-04-05 14:15 | PN ---
Progress Note, Physician History of Present Illness: Nonproductive cough and stable shortness of breath, afebrile. - Current Medication List Current Medications: Active Medications Acetaminophen (Tylenol -) 650 mg PO Q4H PRN PRN Reason: PAIN OR FEVER Last Admin: 04/05/19 06:13 Dose: 650 mg Albuterol Sulfate (Ventolin 0.083% Nebulizer Soln -) 1 amp NEB Q4H PRN PRN Reason: SHORT OF BREATH/WHEEZING Last Admin: 04/04/19 19:50 Dose: 1 amp Diltiazem HCl (Cardizem Cd -) 120 mg PO DAILY [facility] Last Admin: 04/05/19 11:52 Dose: Not Given Enoxaparin Sodium (Lovenox -) 100 mg SQ BID [facility] Last Admin: 04/05/19 10:26 Dose: 100 mg Ergocalciferol (Drisdol -) 50,000 unit PO Sa [facility] Last Admin: 04/01/19 17:13 Dose: Not Given Gabapentin (Neurontin -) 300 mg PO BID [facility] Last Admin: 04/05/19 10:18 Dose: 300 mg Guaifenesin (Robitussin -) 10 ml PO Q4H PRN PRN Reason: COUGH Last Admin: 04/05/19 10:26 Dose: 10 ml Piperacillin Sod/Tazobactam (Sod 3.375 gm/ Dextrose) 50 mls @ 100 mls/hr IVPB Q8H-IV ALONDRA; Protocol Last Admin: 04/05/19 10:50 Dose: 100 mls/hr Sodium Chloride (Normal Saline -) 1,000 mls @ 75 mls/hr IV ASDIR [facility] Last Admin: 04/05/19 10:25 Dose: 75 mls/hr Lactobacillus Acidophilus (Bacid -) 1 tab PO DAILY [facility] Last Admin: 04/05/19 10:25 Dose: 1 tab Morphine Sulfate (Ms Contin -) 30 mg PO BID [facility] Last Admin: 04/05/19 10:19 Dose: 30 mg Nystatin (Nystatin) 500,000 unit PO TID [facility] Last Admin: 04/05/19 06:13 Dose: 500,000 unit Ondansetron HCl (Zofran -) 8 mg PO TID [facility] Last Admin: 04/05/19 06:13 Dose: 8 mg Oxycodone HCl (Roxicodone -) 30 mg PO Q6H PRN PRN Reason: PAIN LEVEL 6-10 Last Admin: 04/05/19 12:44 Dose: 30 mg Pantoprazole Sodium (Protonix -) 40 mg PO DAILY [facility] Last Admin: 04/05/19 10:17 Dose: 40 mg Rosuvastatin Calcium (Crestor -) 40 mg PO HS [facility] Last Admin: 04/04/19 23:10 Dose: 40 mg Sotalol HCl (Betapace -) 80 mg PO BID [facility] Last Admin: 04/05/19 10:25 Dose: 80 mg Tbo-Filgrastim (Granix -) 480 mcg SQ DAILY [facility] Last Admin: 04/05/19 13:07 Dose: 480 mcg Tiotropium [place]/Olodaterol (Stiolto Respimat Inhal [place]) 1 puff IH BID [facility] Last Admin: 04/04/19 21:10 Dose: 1 puff Zolpidem Tartrate (Ambien -) 5 mg PO HS PRN PRN Reason: INSOMNIA Last Admin: 04/04/19 23:10 Dose: 5 mg - Objective Vital Signs: Vital Signs Temperature 98 F 04/05/19 14:09 Pulse Rate 52 L 04/05/19 14:09 Respiratory Rate 20 04/05/19 14:09 Blood Pressure 101/57 L 04/05/19 14:09 O2 Sat by Pulse Oximetry (%) 94 L 04/05/19 09:00 Constitutional: Yes: No Distress, Calm Neck: Yes: Supple Cardiovascular: Yes: Regular Rate and Rhythm Respiratory: Yes: Regular, Diminished, On Nasal O2 Gastrointestinal: Yes: Normal Bowel Sounds, Soft Edema: No Labs: CBC, BMP 04/05/19 06:38 04/05/19 06:38 INR, PTT INR 1.23 (0.83-1.09) H 03/28/19 02:00 Problem List - Problems (1) Pneumonia Code(s): J18.9 - PNEUMONIA, UNSPECIFIED ORGANISM Qualifiers: Pneumonia type: due to unspecified organism Laterality: right Lung location: middle lobe of lung Qualified Code(s): J18.1 - Lobar pneumonia, unspecified organism (2) Shortness of breath Code(s): R06.02 - SHORTNESS OF BREATH (3) Anemia Code(s): D64.9 - ANEMIA, UNSPECIFIED Qualifiers: Anemia type: unspecified type Qualified Code(s): D64.9 - Anemia, unspecified (4) Anticoagulant long-term use 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(s): 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 (5) COPD (chronic obstructive pulmonary disease) Code(s): J44.9 - CHRONIC OBSTRUCTIVE PULMONARY DISEASE, UNSPECIFIED Qualifiers: COPD type: unspecified COPD Qualified Code(s): J44.9 - Chronic obstructive pulmonary disease, unspecified (6) HTN (hypertension) Code(s): I10 - ESSENTIAL (PRIMARY) HYPERTENSION Qualifiers: Hypertension type: essential hypertension Qualified Code(s): I10 - Essential (primary) hypertension (7) Lung cancer Code(s): C34.90 - MALIGNANT NEOPLASM OF UNSP PART OF UNSP BRONCHUS OR LUNG Qualifiers: Laterality: right Lung location: upper lobe of lung Qualified Code(s): C34.11 - Malignant neoplasm of upper lobe, right bronchus or lung (8) Paroxysmal atrial fibrillation Code(s): I48.0 - PAROXYSMAL ATRIAL FIBRILLATION Assessment/Plan 1. Post-obstructive pneumonia 2. Improving neutropenia, anemia post transfusion 3. 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 CAD/coronary artery calcification angina pectoris 6. Diastolic LV dysfunction with class 0 NYHA classification LV failure 7. Paroxysmal Atrial Fibrillation/paroxysmal atrial flutter [id number] score of 1 on anticoagulation on Lovenox 8. HTN/HCVD 9. COPD/emphysema 10. Chronic Hypoxic Respiratory Failure 11. History of Hepatitis C 12. OSAS 13. Hyperlipidemia PLAN: 1. Continue Lovenox 100 mg BID 2. Continue Betapace 80 mg BID with close monitoring of QTc interval 3. Continue Cardizem CD 120 mg QD as tolerated. Monitor BP 4. Continue Crestor 40 mg QHS 5. Antibiotic coverage, bronchodilator, G-CSF and O2 to keep SpO2 >90%
--- NOTE | 2019-04-05 18:20 | PN ---
Progress Note (short form) - Note Progress Note: Patient seen and examined Remains SOB, dyspneic Last Vital Signs Temp Pulse Resp BP Pulse Ox 98.7 F 94 H 20 98/64 94 L 04/05/19 18:04 04/05/19 18:04 04/05/19 18:04 04/05/19 18:04 04/05/19 09:00 HEENT: [place], EOM Intact Oropharynx: No thrush, No mucositis Cor: RSR, No murmurs, No gallops Lungs: decrease breath sounds RLL Abd: Soft, Normal bowel sounds, No organomegaly Ext:No significant edema Skin: No rashes, Integument intact CBC, BMP 04/05/19 06:38 04/05/19 06:38 Current Medications Generic Name Dose Route Start Last Admin Trade Name Freq PRN Reason Stop Dose Admin Acetaminophen 650 mg 03/28/19 11:00 04/05/19 06:13 Tylenol - PO 650 mg Q4H PRN Administration PAIN OR FEVER Albuterol Sulfate 1 amp 03/28/19 10:59 04/04/19 19:50 Ventolin 0.083% Nebulizer Soln - NEB 1 amp Q4H PRN Administration SHORT OF BREATH/WHEEZING Diltiazem HCl 120 mg 03/28/19 11:00 04/05/19 11:52 Cardizem Cd - PO Not Given DAILY ALON[facility]A Enoxaparin Sodium 100 mg 03/28/19 11:00 04/05/19 10:26 Lovenox - SQ 100 mg BID ALONDRA Administration Ergocalciferol 50,000 unit 04/01/19 10:00 04/01/19 17:13 Drisdol - PO Not Given Sa ALONDRA Gabapentin 300 mg 03/28/19 11:00 04/05/19 10:18 Neurontin - PO 300 mg BID ALON[facility]A Administration Guaifenesin 10 ml 04/04/19 11:52 04/05/19 10:26 Robitussin - PO 10 ml Q4H PRN Administration COUGH Piperacillin Sod/Tazobactam 50 mls @ 100 mls/hr 03/28/19 18:00 04/05/19 17:57 Sod 3.375 gm/ Dextrose IVPB 100 mls/hr Q8H-IV ALONDRA Administration Protocol Sodium Chloride 1,000 mls @ 75 mls/hr 04/03/19 09:00 04/05/19 10:25 Normal Saline - IV 75 mls/hr ASDIR ALONDRA Administration Lactobacillus Acidophilus 1 tab 04/03/19 10:00 04/05/19 10:25 Bacid - PO 1 tab DAILY [facility] Administration Morphine Sulfate 30 mg 03/28/19 12:26 04/05/19 10:19 Ms Contin - PO 30 mg BID [facility]ON[facility]A Administration Nystatin 500,000 unit 03/31/19 14:00 04/05/19 15:51 Nystatin PO 500,000 unit TID ALONDRA Administration Ondansetron HCl 8 mg 03/28/19 14:00 04/05/19 15:51 Zofran - PO 8 mg TID ALONDRA Administration Oxycodone HCl 30 mg 03/30/19 13:55 04/05/19 12:44 Roxicodone - PO 30 mg Q6H PRN Administration PAIN LEVEL 6-10 Pantoprazole Sodium 40 mg 03/28/19 11:00 04/05/19 10:17 Protonix - PO 40 mg DAILY ALONDRA Administration Rosuvastatin Calcium 40 mg 04/04/19 22:00 04/04/19 23:10 Crestor - PO 40 mg HS ALONDRA Administration Sotalol HCl 80 mg 03/28/19 11:00 04/05/19 10:25 Betapace - PO 80 mg BID ALONDRA Administration Tbo-Filgrastim 480 mcg 04/05/19 10:00 04/05/19 13:07 Granix - SQ 480 mcg DAILY ALONDRA Administration Tiotropium Claude/Olodaterol 1 puff 03/28/19 22:00 04/05/19 09:58 Stiolto Respimat Inhal [place] [facility] 1 puff BID ALONDRA Administration Zolpidem Tartrate 5 mg 03/28/19 20:43 04/04/19 23:10 Ambien - PO 5 mg HS PRN Administration INSOMNIA Impression: SCC ? post obstructive pneumonia Anemia WBC recovery Plan: D/C granix Monitor CBC Ab per ID
[2019-04-05] MEDS: ALBUTEROL SO4 0.083% IH SOL 2.5 MG/3 ML VIAL.NEB. NEB PRN (18:55)
[2019-04-05] MEDS: ROSUVASTATIN CA 20 MG TABLET (FP) PO SCH (21:04)
[2019-04-05] MEDS: ZOLPIDEM TARTRATE 5 MG TABLET PO PRN (22:05)
[2019-04-06] MEDS ORDERED: PIPERACILLIN/TAZOBACTAM 3.375 GM VIAL IVPB ONE ×2 (02:40→09:01)
[2019-04-06] MEDS ORDERED: DEXTROSE 5%-WATER - 50 ML IVPB ONE ×2 (02:40→09:02)
[2019-04-06] MEDS: PIPERACILLIN/TAZOB 3.375 GM 3.375 GM in DEXTROSE 5%-WATER - 50 ML IVPB SCH ×2 (02:44→09:32)
[2019-04-06] MEDS: ONDANSETRON 8 MG TABLET (FP) PO SCH ×2 (05:50→14:48)
[2019-04-06] MEDS: NYSTATIN 500,000 UNITS TABLET PO SCH ×2 (05:50→14:43)
[2019-04-06 07:00] LABS: BASO % 0.5 % (0-2.0); EOS % 0.1 % (0-4.5); HEMATOCRIT 27.7 % (35.4-49); HEMOGLOBIN 9.3 GM/dL (11.7-16.9); MCH 31.3 pg (25.7-33.7); MCHC 33.6 g/dl (32.0-35.9); MEAN CELL VOLUME 93.3 fl (80-96); MEAN PLT VOLUME 7.6 fl (7.5-11.1); MONO % 4.2 % (3.8-10.2); NEUT % 92.2 % (42.8-82.8); PLATELET COUNT 58 K/MM3 (134-434); RBC 2.97 M/mm3 (4.00-5.60); RDW 14.7 % (11.9-15.9); WHITE BLOOD COUNT 19.3 K/mm3 (4.0-10.0)
[2019-04-06 07:25] LABS: ALBUMIN 2.8 g/dl (3.4-5.0); BILIRUBIN,TOTAL 0.2 mg/dL (0.2-1); BLOOD UREA NITROGEN 3.6 mg/dL (7-18); CALCIUM 8.1 mg/dL (8.5-10.1); CREATININE 0.7 mg/dL (0.55-1.3); MAGNESIUM 1.7 mg/dL (1.8-2.4); POTASSIUM 3.6 mmol/L (3.5-5.1); TOT PROT 5.7 g/dl (6.4-8.2)
--- NOTE | 2019-04-06 08:36 | PN ---
Progress Note (short form) - Note Progress Note: OOB to chair. Looks overall better. Said he saw a a few drops of bright blood admixed with sputum last night. No further hemoptysis after midnight. No CP or SOB. Intake & Output 04/03/19 04/04/19 04/05/19 04/06/19 23:59 23:59 23:59 23:59 Intake Total 1600 1750 2050 575 Output Total 650 200 200 200 Balance 950 1550 1850 375 Last Vital Signs Temp Pulse Resp BP Pulse Ox 99.2 F 88 16 111/72 94 L 04/06/19 05:52 04/06/19 05:52 04/06/19 08:24 04/06/19 05:52 04/06/19 08:24 Active Medications Acetaminophen (Tylenol -) 650 mg PO Q4H PRN PRN Reason: PAIN OR FEVER Last Admin: 04/05/19 22:24 Dose: 650 mg Albuterol Sulfate (Ventolin 0.083% Nebulizer Soln -) 1 amp NEB Q4H PRN PRN Reason: SHORT OF BREATH/WHEEZING Last Admin: 04/05/19 18:55 Dose: 1 amp Diltiazem HCl (Cardizem Cd -) 120 mg PO DAILY [facility] Last Admin: 04/05/19 11:52 Dose: Not Given Enoxaparin Sodium (Lovenox -) 100 mg SQ BID [facility] Last Admin: 04/05/19 21:04 Dose: 100 mg Ergocalciferol (Drisdol -) 50,000 unit PO Sa [facility] Last Admin: 04/01/19 17:13 Dose: Not Given Gabapentin (Neurontin -) 300 mg PO BID [facility] Last Admin: 04/05/19 21:05 Dose: 300 mg Guaifenesin (Robitussin -) 10 ml PO Q4H PRN PRN Reason: COUGH Last Admin: 04/05/19 22:06 Dose: 10 ml Piperacillin Sod/Tazobactam (Sod 3.375 gm/ Dextrose) 50 mls @ 100 mls/hr IVPB Q8H-IV ALONDRA; Protocol Last Admin: 04/06/19 02:44 Dose: 100 mls/hr Sodium Chloride (Normal Saline -) 1,000 mls @ 75 mls/hr IV ASDIR [facility] Last Admin: 04/05/19 22:06 Dose: 75 mls/hr Lactobacillus Acidophilus (Bacid -) 1 tab PO DAILY [facility] Last Admin: 04/05/19 10:25 Dose: 1 tab Morphine Sulfate (Ms Contin -) 30 mg PO BID [facility] Last Admin: 04/05/19 21:05 Dose: 30 mg Nystatin (Nystatin) 500,000 unit PO TID [facility] Last Admin: 04/06/19 05:50 Dose: 500,000 unit Ondansetron HCl (Zofran -) 8 mg PO TID [facility] Last Admin: 04/06/19 05:50 Dose: 8 mg Oxycodone HCl (Roxicodone -) 30 mg PO Q6H PRN PRN Reason: PAIN LEVEL 6-10 Last Admin: 04/05/19 22:05 Dose: 30 mg Pantoprazole Sodium (Protonix -) 40 mg PO DAILY [facility] Last Admin: 04/05/19 10:17 Dose: 40 mg Rosuvastatin Calcium (Crestor -) 40 mg PO HS [facility] Last Admin: 04/05/19 21:04 Dose: 40 mg Sotalol HCl (Betapace -) 80 mg PO BID [facility] Last Admin: 04/05/19 21:04 Dose: 80 mg Tiotropium [place]/Olodaterol (Stiolto Respimat Inhal [place]) 1 puff IH BID [facility] Last Admin: 04/05/19 21:08 Dose: 1 puff Zolpidem Tartrate (Ambien -) 5 mg PO HS PRN PRN Reason: INSOMNIA Last Admin: 04/05/19 22:05 Dose: 5 mg Constitutional: Yes: NAD Cardiovascular: Yes: Regular Rate and Rhythm Respiratory: Yes: Diminished, few scattered rhonchi Gastrointestinal: Yes: Soft Genitourinary: Yes: WNL Musculoskeletal: Yes: Muscle Weakness Extremities: Yes: Other Edema: No Peripheral Pulses WNL: Yes Integumentary: Yes: WNL Neurological: Yes: WNL Labs: Laboratory Results - last 24 hr 04/03/19 04/06/19 04/06/19 10:36 06:40 06:40 WBC 19.3 H RBC 2.97 L Hgb 9.3 L Hct 27.7 L MCV 93.3 MCH 31.3 MCHC 33.6 RDW 14.7 Plt Count 58 L MPV 7.6 Absolute Neuts (auto) 17.8 H Neutrophils % 92.2 H Lymphocytes % 3.0 L D Monocytes % 4.2 Eosinophils % 0.1 Basophils % 0.5 D Nucleated RBC % 0 Sodium 142 Potassium 3.6 Chloride 104 Carbon Dioxide 31 Anion Gap 7 L BUN 3.6 L Creatinine 0.7 Est GFR (CKD-EPI)AfAm 116.40 Est GFR (CKD-EPI)NonAf 100.43 Random Glucose 83 Calcium 8.1 L Magnesium 1.7 L Total Bilirubin 0.2 AST 39 H ALT 72 H Alkaline Phosphatase 44 L Total Protein 5.7 L Albumin 2.8 L Blood Type O POSITIVE Antibody Screen Negative Crossmatch See Detail Problem List - Problems (1) Lactic acidosis Code(s): E87.2 - ACIDOSIS (2) Pneumonia Code(s): J18.9 - PNEUMONIA, UNSPECIFIED ORGANISM Qualifiers: Pneumonia type: due to unspecified organism Laterality: right Lung location: middle lobe of lung Qualified Code(s): J18.1 - Lobar pneumonia, unspecified organism (3) Sepsis Code(s): A41.9 - SEPSIS, UNSPECIFIED ORGANISM Qualifiers: Sepsis type: sepsis due to unspecified organism Sepsis acute organ dysfunction status: without acute organ dysfunction Qualified Code(s): A41.9 - Sepsis, unspecified organism (4) Shortness of breath Code(s): R06.02 - SHORTNESS OF BREATH (5) Acute respiratory failure Code(s): J96.00 - ACUTE RESPIRATORY FAILURE, UNSP W HYPOXIA OR HYPERCAPNIA Qualifiers: Respiratory failure complication: hypoxia Qualified Code(s): J96.01 - Acute respiratory failure with hypoxia (6) Afib Code(s): I48.91 - UNSPECIFIED ATRIAL FIBRILLATION (7) Anemia Code(s): D64.9 - ANEMIA, UNSPECIFIED Qualifiers: Anemia type: unspecified type Qualified Code(s): D64.9 - Anemia, unspecified (8) COPD (chronic obstructive pulmonary disease) Code(s): J44.9 - CHRONIC OBSTRUCTIVE PULMONARY DISEASE, UNSPECIFIED Qualifiers: COPD type: unspecified COPD Qualified Code(s): J44.9 - Chronic obstructive pulmonary disease, unspecified (9) DVT (deep venous thrombosis) Code(s): I82.409 - ACUTE EMBOLISM AND THOMBOS UNSP DEEP VN UNSP LOWER EXTREMITY Qualifiers: DVT location: upper extremity Affected thrombotic vein of extremity: other upper extremity vein Chronicity: acute Laterality: right Qualified Code(s) : I82.621 - Acute embolism and thrombosis of deep veins of right upper extremity (10) Squamous cell lung cancer Code(s): C34.90 - MALIGNANT NEOPLASM OF UNSP PART OF UNSP BRONCHUS OR LUNG Assessment/Plan ABX per ID: consider change to PO Pain control O2 to maintain saturation: patient on 3L NC at home Monitor and quantify hemoptysis No Pulmonary contraindication for DC planning home Dr Jean
--- NOTE | 2019-04-06 09:24 | PN ---
Progress Note, Physician History of Present Illness: Nonproductive cough and mild hemoptysis overnight, and improving shortness of breath, afebrile. - Current Medication List Current Medications: Active Medications Acetaminophen (Tylenol -) 650 mg PO Q4H PRN PRN Reason: PAIN OR FEVER Last Admin: 04/05/19 22:24 Dose: 650 mg Albuterol Sulfate (Ventolin 0.083% Nebulizer Soln -) 1 amp NEB Q4H PRN PRN Reason: SHORT OF BREATH/WHEEZING Last Admin: 04/05/19 18:55 Dose: 1 amp Diltiazem HCl (Cardizem Cd -) 120 mg PO DAILY [facility] Last Admin: 04/05/19 11:52 Dose: Not Given Enoxaparin Sodium (Lovenox -) 100 mg SQ BID [facility] Last Admin: 04/05/19 21:04 Dose: 100 mg Ergocalciferol (Drisdol -) 50,000 unit PO Sa [facility] Last Admin: 04/01/19 17:13 Dose: Not Given Gabapentin (Neurontin -) 300 mg PO BID [facility] Last Admin: 04/05/19 21:05 Dose: 300 mg Guaifenesin (Robitussin -) 10 ml PO Q4H PRN PRN Reason: COUGH Last Admin: 04/05/19 22:06 Dose: 10 ml Piperacillin Sod/Tazobactam (Sod 3.375 gm/ Dextrose) 50 mls @ 100 mls/hr IVPB Q8H-IV [facility]ON[facility]; Protocol Last Admin: 04/06/19 02:44 Dose: 100 mls/hr Sodium Chloride (Normal Saline -) 1,000 mls @ 75 mls/hr IV ASDIR [facility] Last Admin: 04/05/19 22:06 Dose: 75 mls/hr Lactobacillus Acidophilus (Bacid -) 1 tab PO DAILY [facility] Last Admin: 04/05/19 10:25 Dose: 1 tab Morphine Sulfate (Ms Contin -) 30 mg PO BID [facility] Last Admin: 04/05/19 21:05 Dose: 30 mg Nystatin (Nystatin) 500,000 unit PO TID [facility] Last Admin: 04/06/19 05:50 Dose: 500,000 unit Ondansetron HCl (Zofran -) 8 mg PO TID [facility] Last Admin: 04/06/19 05:50 Dose: 8 mg Oxycodone HCl (Roxicodone -) 30 mg PO Q6H PRN PRN Reason: PAIN LEVEL 6-10 Last Admin: 04/05/19 22:05 Dose: 30 mg Pantoprazole Sodium (Protonix -) 40 mg PO DAILY [facility] Last Admin: 04/05/19 10:17 Dose: 40 mg Rosuvastatin Calcium (Crestor -) 40 mg PO HS [facility] Last Admin: 04/05/19 21:04 Dose: 40 mg Sotalol HCl (Betapace -) 80 mg PO BID [facility] Last Admin: 04/05/19 21:04 Dose: 80 mg Tiotropium [place]/Olodaterol (Stiolto Respimat Inhal [place]) 1 puff IH BID [facility] Last Admin: 04/05/19 21:08 Dose: 1 puff Zolpidem Tartrate (Ambien -) 5 mg PO HS PRN PRN Reason: INSOMNIA Last Admin: 04/05/19 22:05 Dose: 5 mg - Objective Vital Signs: Vital Signs Temperature 99.2 F 04/06/19 05:52 Pulse Rate 88 04/06/19 05:52 Respiratory Rate 16 04/06/19 08:24 Blood Pressure 111/72 04/06/19 05:52 O2 Sat by Pulse Oximetry (%) 94 L 04/06/19 08:24 Constitutional: Yes: No Distress, Calm Neck: Yes: Supple Cardiovascular: Yes: Regular Rate and Rhythm Respiratory: Yes: Regular, Diminished, On Nasal O2 Gastrointestinal: Yes: Normal Bowel Sounds, Soft Edema: No Labs: CBC, BMP 04/06/19 06:40 04/06/19 06:40 INR, PTT INR 1.23 (0.83-1.09) H 03/28/19 02:00 Problem List - Problems (1) Pneumonia Code(s): J18.9 - PNEUMONIA, UNSPECIFIED ORGANISM Qualifiers: Pneumonia type: due to unspecified organism Laterality: right Lung location: middle lobe of lung Qualified Code(s): J18.1 - Lobar pneumonia, unspecified organism (2) Shortness of breath Code(s): R06.02 - SHORTNESS OF BREATH (3) Anemia Code(s): D64.9 - ANEMIA, UNSPECIFIED Qualifiers: Anemia type: unspecified type Qualified Code(s): D64.9 - Anemia, unspecified (4) Anticoagulant long-term use 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 (5) COPD (chronic obstructive pulmonary disease) Code(s): J44.9 - CHRONIC OBSTRUCTIVE PULMONARY DISEASE, UNSPECIFIED Qualifiers: COPD type: unspecified COPD Qualified Code(s): J44.9 - Chronic obstructive pulmonary disease, unspecified (6) HTN (hypertension) Code(s): I10 - ESSENTIAL (PRIMARY) HYPERTENSION Qualifiers: Hypertension type: essential hypertension Qualified Code(s): I10 - Essential (primary) hypertension (7) Lung cancer Code(s): C34.90 - MALIGNANT NEOPLASM OF UNSP PART OF UNSP BRONCHUS OR LUNG Qualifiers: Laterality: right Lung location: upper lobe of lung Qualified Code(s): C34.11 - Malignant neoplasm of upper lobe, right bronchus or lung (8) Paroxysmal atrial fibrillation Code(s): I48.0 - PAROXYSMAL ATRIAL FIBRILLATION Assessment/Plan 1. Post-obstructive pneumonia 2. Resolving neutropenia, anemia post transfusion 3. 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 CAD/coronary artery calcification angina pectoris 6. Diastolic LV dysfunction with class 0 NYHA classification LV failure 7. Paroxysmal Atrial Fibrillation/paroxysmal atrial flutter [id number] score of 1 on anticoagulation on Lovenox 8. HTN/HCVD 9. COPD/emphysema 10. Chronic Hypoxic Respiratory Failure 11. History of Hepatitis C 12. OSAS 13. Hyperlipidemia PLAN: 1. Continue Lovenox 100 mg BID 2. Continue Betapace 80 mg BID with close monitoring of QTc interval 3. Continue Cardizem CD 120 mg QD as tolerated. Monitor BP 4. Continue Crestor 40 mg QHS 5. Antibiotic coverage, bronchodilator, and O2 to keep SpO2 >90%
[2019-04-06] MEDS: LACTOBACILLUS ACIDOPHILUS 1 TABLET PO SCH (09:29)
[2019-04-06] MEDS: PANTOPRAZOLE 40 MG TABLET (FP) PO SCH (09:29)
[2019-04-06] MEDS: SOTALOL HCL 80 MG TABLET (FP) PO SCH (09:29)
[2019-04-06] MEDS: morphine SO4 SUSTAINED ACTING 30 MG TABLET.SA PO SCH (09:29)
[2019-04-06] MEDS: GABAPENTIN 300 MG CAPSULE (FP) PO SCH (09:29)
[2019-04-06] MEDS: ENOXAPARIN NA (PORCINE) 100 MG/1 ML DISP.SYRIN SQ SCH (09:30)
[2019-04-06] MEDS: TIOTROPIUM/OLODATEROL HCL (STIOLTO) 4 GM INHALER IH SCH (09:31)
[2019-04-06] MEDS: ALBUTEROL SO4 0.083% IH SOL 2.5 MG/3 ML VIAL.NEB. NEB PRN (10:35)
--- NOTE | 2019-04-06 10:49 | PN ---
Progress Note, Physician Chief Complaint: Pneumonia Lung CA History of Present Illness: Previous notes and events reviewed awake and alert NAD WBC 19.3 after Granix afebrile no further reports of blood tinge sputum - Current Medication List Current Medications: Active Medications Acetaminophen (Tylenol -) 650 mg PO Q4H PRN PRN Reason: PAIN OR FEVER Last Admin: 04/05/19 22:24 Dose: 650 mg Albuterol Sulfate (Ventolin 0.083% Nebulizer Soln -) 1 amp NEB Q4H PRN PRN Reason: SHORT OF BREATH/WHEEZING Last Admin: 04/05/19 18:55 Dose: 1 amp Diltiazem HCl (Cardizem Cd -) 120 mg PO DAILY [facility] Last Admin: 04/06/19 09:30 Dose: Not Given Enoxaparin Sodium (Lovenox -) 100 mg SQ BID [facility] Last Admin: 04/06/19 09:30 Dose: 100 mg Ergocalciferol (Drisdol -) 50,000 unit PO Sa [facility] Last Admin: 04/01/19 17:13 Dose: Not Given Gabapentin (Neurontin -) 300 mg PO BID [facility] Last Admin: 04/06/19 09:29 Dose: 300 mg Guaifenesin (Robitussin -) 10 ml PO Q4H PRN PRN Reason: COUGH Last Admin: 04/05/19 22:06 Dose: 10 ml Piperacillin Sod/Tazobactam (Sod 3.375 gm/ Dextrose) 50 mls @ 100 mls/hr IVPB Q8H-IV [facility]; Protocol Last Admin: 04/06/19 09:32 Dose: 100 mls/hr Sodium Chloride (Normal Saline -) 1,000 mls @ 75 mls/hr IV ASDIR [facility] Last Admin: 04/05/19 22:06 Dose: 75 mls/hr Lactobacillus Acidophilus (Bacid -) 1 tab PO DAILY [facility] Last Admin: 04/06/19 09:29 Dose: 1 tab Morphine Sulfate (Ms Contin -) 30 mg PO BID [facility] Last Admin: 04/06/19 09:29 Dose: 30 mg Nystatin (Nystatin) 500,000 unit PO TID [facility] Last Admin: 04/06/19 05:50 Dose: 500,000 unit Ondansetron HCl (Zofran -) 8 mg PO TID [facility] Last Admin: 04/06/19 05:50 Dose: 8 mg Oxycodone HCl (Roxicodone -) 30 mg PO Q6H PRN PRN Reason: PAIN LEVEL 6-10 Last Admin: 04/05/19 22:05 Dose: 30 mg Pantoprazole Sodium (Protonix -) 40 mg PO DAILY [facility] Last Admin: 04/06/19 09:29 Dose: 40 mg Rosuvastatin Calcium (Crestor -) 40 mg PO HS [facility] Last Admin: 04/05/19 21:04 Dose: 40 mg Sotalol HCl (Betapace -) 80 mg PO BID [facility] Last Admin: 04/06/19 09:29 Dose: 80 mg Tiotropium [place]/Olodaterol (Stiolto Respimat Inhal [place]) 1 puff IH BID [facility] Last Admin: 04/06/19 09:31 Dose: 1 puff Zolpidem Tartrate (Ambien -) 5 mg PO HS PRN PRN Reason: INSOMNIA Last Admin: 04/05/19 22:05 Dose: 5 mg - Objective Vital Signs: Vital Signs Temperature 99.2 F 04/06/19 05:52 Pulse Rate 88 04/06/19 05:52 Respiratory Rate 16 04/06/19 08:24 Blood Pressure 111/72 04/06/19 05:52 O2 Sat by Pulse Oximetry (%) 94 L 04/06/19 08:24 Constitutional: Yes: No Distress, Calm Eyes: Yes: Conjunctiva Clear HENT: Yes: Atraumatic Cardiovascular: Yes: Regular Rate and Rhythm Respiratory: Yes: Regular, Diminished, On Nasal O2 Gastrointestinal: Yes: Normal Bowel Sounds, Soft Musculoskeletal: Yes: Muscle Weakness Extremities: Yes: WNL Edema: No Neurological: Yes: Alert, Oriented Psychiatric: Yes: Alert, Oriented Labs: CBC, BMP 04/06/19 06:40 04/06/19 06:40 INR, PTT INR 1.23 (0.83-1.09) H 03/28/19 02:00 Microbiology 03/28/19 02:00 Blood - Peripheral Venous Blood Culture - Final NO GROWTH AFTER 5 DAYS INCUBATION 03/28/19 02:00 Blood - Peripheral Venous Blood Culture - Final NO GROWTH AFTER 5 DAYS INCUBATION 03/28/19 18:40 Urine For Antigen Detection Legionella Antigen - Final 03/28/19 18:40 Urine For Antigen Detection Streptococcus pneumoniae Antigen (M - Final 03/28/19 05:20 Urine - Urine Clean Catch Urine Culture - Final NO GROWTH OBTAINED Problem List - Problems (1) Lactic acidosis Assessment/Plan: -LA 2.2 down to 1.6 -resolved Code(s): E87.2 - ACIDOSIS (2) Pneumonia Assessment/Plan: -Chest CT scan shows small right effusion which may be partially loculated and shows some extension into the fissures -Pulm and ID on board -bronchodilators -Zosyn will speak with ID for possible change to PO ABT for discharge -BC neg -Urine Legionella neg -Sputum culture Code(s): J18.9 - PNEUMONIA, UNSPECIFIED ORGANISM Qualifiers: Pneumonia type: due to unspecified organism Laterality: right Lung location: middle lobe of lung Qualified Code(s): J18.1 - Lobar pneumonia, unspecified organism (3) Sepsis Assessment/Plan: -Chest CT scan shows small right effusion which may be partially loculated and shows some extension into the fissures -ID on board -bronchodilators -Zosyn -BC neg -Urine Legionella neg -UC neg -LA 1.6 Code(s): A41.9 - SEPSIS, UNSPECIFIED ORGANISM Qualifiers: Sepsis type: sepsis due to unspecified organism Sepsis acute organ dysfunction status: without acute organ dysfunction Qualified Code(s): A41.9 - Sepsis, unspecified organism (4) Afib Assessment/Plan: -Lovenox Code(s): I48.91 - UNSPECIFIED ATRIAL FIBRILLATION (5) COPD (chronic obstructive pulmonary disease) Assessment/Plan: -Pulm on board -bronchodilators -keep SpO2 >90% -O2 via NC -Stiolto -Chest CT scan shows advanced COPD Code(s): J44.9 - CHRONIC OBSTRUCTIVE PULMONARY DISEASE, UNSPECIFIED Qualifiers: COPD type: unspecified COPD Qualified Code(s): J44.9 - Chronic obstructive pulmonary disease, unspecified (6) DVT (deep venous thrombosis) Assessment/Plan: -Lovenox Code(s): I82.409 - ACUTE EMBOLISM AND THOMBOS UNSP DEEP VN UNSP LOWER EXTREMITY Qualifiers: DVT location: upper extremity Affected thrombotic vein of extremity: other upper extremity vein Chronicity: acute Laterality: right Qualified Code(s) : I82.621 - Acute embolism and thrombosis of deep veins of right upper extremity (7) HTN (hypertension) Assessment/Plan: -Sotalol -low Na diet Code(s): I10 - ESSENTIAL (PRIMARY) HYPERTENSION Qualifiers: Hypertension type: essential hypertension Qualified Code(s): I10 - Essential (primary) hypertension (8) Lung cancer Assessment/Plan: -Oncology on board -receiving chemotherapy -Chest CT scan shows multiple lung nodules -WBC 19.3 after GRanix -neutropenic precautions Code(s): C34.90 - MALIGNANT NEOPLASM OF UNSP PART OF UNSP BRONCHUS OR LUNG Qualifiers: Laterality: right Lung location: upper lobe of lung Qualified Code(s): C34.11 - Malignant neoplasm of upper lobe, right bronchus or lung Assessment/Plan see problem list dvt ppx speak with ID for PO ABT for discharge will speak with SW to being discussing DC planning
[2019-04-06 10:53] LABS: ANISOCYTOSIS 0; MACROCYTOSIS 0; PLATELET ESTIMATE DECREASED
[2019-04-06] MEDS: oxyCODONE HCL 5 MG TABLET PO PRN (10:53)
[2019-04-06] MEDS: SODIUM CHLORIDE 1,000 ML IV SCH (11:02)
--- NOTE | 2019-04-06 11:52 | PN ---
Progress Note, Physician History of Present Illness: AWAKE, ALERT IN BED LESS COUGH DENIES CHEST PAIN/ DYSPNEA AFEBRILE WBC IMPROVED ON GRANIX - Current Medication List Current Medications: Active Medications Acetaminophen (Tylenol -) 650 mg PO Q4H PRN PRN Reason: PAIN OR FEVER Last Admin: 04/05/19 22:24 Dose: 650 mg Albuterol Sulfate (Ventolin 0.083% Nebulizer Soln -) 1 amp NEB Q4H PRN PRN Reason: SHORT OF BREATH/WHEEZING Last Admin: 04/06/19 10:35 Dose: 1 amp Diltiazem HCl (Cardizem Cd -) 120 mg PO DAILY [facility] Last Admin: 04/06/19 09:30 Dose: Not Given Enoxaparin Sodium (Lovenox -) 100 mg SQ BID [facility] Last Admin: 04/06/19 09:30 Dose: 100 mg Ergocalciferol (Drisdol -) 50,000 unit PO Sa [facility] Last Admin: 04/01/19 17:13 Dose: Not Given Gabapentin (Neurontin -) 300 mg PO BID [facility] Last Admin: 04/06/19 09:29 Dose: 300 mg Guaifenesin (Robitussin -) 10 ml PO Q4H PRN PRN Reason: COUGH Last Admin: 04/05/19 22:06 Dose: 10 ml Piperacillin Sod/Tazobactam (Sod 3.375 gm/ Dextrose) 50 mls @ 100 mls/hr IVPB Q8H-IV ALONDRA; Protocol Last Admin: 04/06/19 09:32 Dose: 100 mls/hr Sodium Chloride (Normal Saline -) 1,000 mls @ 75 mls/hr IV ASDIR [facility] Last Admin: 04/06/19 11:02 Dose: 75 mls/hr Lactobacillus Acidophilus (Bacid -) 1 tab PO DAILY [facility] Last Admin: 04/06/19 09:29 Dose: 1 tab Morphine Sulfate (Ms Contin -) 30 mg PO BID [facility] Last Admin: 04/06/19 09:29 Dose: 30 mg Nystatin (Nystatin) 500,000 unit PO TID [facility] Last Admin: 04/06/19 05:50 Dose: 500,000 unit Ondansetron HCl (Zofran -) 8 mg PO TID [facility] Last Admin: 04/06/19 05:50 Dose: 8 mg Oxycodone HCl (Roxicodone -) 30 mg PO Q6H PRN PRN Reason: PAIN LEVEL 6-10 Last Admin: 04/06/19 10:53 Dose: 30 mg Pantoprazole Sodium (Protonix -) 40 mg PO DAILY [facility] Last Admin: 04/06/19 09:29 Dose: 40 mg Rosuvastatin Calcium (Crestor -) 40 mg PO HS [facility] Last Admin: 04/05/19 21:04 Dose: 40 mg Sotalol HCl (Betapace -) 80 mg PO BID [facility] Last Admin: 04/06/19 09:29 Dose: 80 mg Tiotropium [place]/Olodaterol (Stiolto Respimat Inhal [place]) 1 puff IH BID [facility] Last Admin: 04/06/19 09:31 Dose: 1 puff Zolpidem Tartrate (Ambien -) 5 mg PO HS PRN PRN Reason: INSOMNIA Last Admin: 04/05/19 22:05 Dose: 5 mg - Objective Vital Signs: Vital Signs Temperature 99.2 F 04/06/19 05:52 Pulse Rate 88 04/06/19 05:52 Respiratory Rate 16 04/06/19 08:24 Blood Pressure 111/72 04/06/19 05:52 O2 Sat by Pulse Oximetry (%) 94 L 04/06/19 08:24 Constitutional: Yes: No Distress Eyes: Yes: Conjunctiva Clear Cardiovascular: Yes: Regular Rate and Rhythm, S1, S2 Respiratory: Yes: Rhonchi Gastrointestinal: Yes: Normal Bowel Sounds, Soft. No: Tenderness Edema: No Labs: CBC, BMP 04/06/19 06:40 04/06/19 06:40 INR, PTT INR 1.23 (0.83-1.09) H 03/28/19 02:00 Assessment/Plan FEVER/ NEUTROPENIA RESOLVED ? POST OBSTRUCTIVE PNEUMONIA LUNG CA SUBSTITUTE AUGMENTIN 875MG PO BID 7D
[2019-04-06] MEDS ORDERED: PIPERACILLIN/TAZOB 3.375 GM 3.375 GM in DEXTROSE 5%-WATER - 50 ML IVPB SCH (12:00)
--- NOTE | 2019-04-06 12:18 | PN ---
Progress Note (short form) - Note Progress Note: Hematology and oncology follow up Subjective: Patient seen and examined at bedside. no events overnight. no new complaints. Objective: Vital Signs Temperature 99.2 F 04/06/19 05:52 Pulse Rate 88 04/06/19 05:52 Respiratory Rate 16 04/06/19 08:24 Blood Pressure 111/72 04/06/19 05:52 O2 Sat by Pulse Oximetry (%) 94 L 04/06/19 08:24 PE: Gen: awake, alert and in NAD. Well appearing. Pulm: crackles on the right with slightly decreased lung sounds. Improved since admission. Cardio: Regular rate and rhythm, s1, s2 heard. no murmus, gallops, rubs heard. Abdomen: Soft, nontender, nondistended, bowel sounds heard. Extremities: no peripheral edema. CBC, BMP 04/06/19 06:40 04/06/19 06:40 Assessment and plan: The patient is a 63 year old male with a past medical history of HTN, HLD, Squamous cell lung cancer currently on chemo (carbo/taxol) via PICC (last infusion yesterday), COPD on 3L home o2, afib, PE on Lovenox and SVC syndrome s/ p stenting who comes into the ED c/o chills and fevers over the past 4 days. In the ED, he was found to be febrile to 101, tachycardic to 104 with a WBC count of 11.5. A chest xray showed a new infiltrate. #Sepsis 2/2 pneumonia, likely post obstructive -patient afebrile > 24 hrs -Neutropenia resolved w/ granix; will d/c granix -Patient on Zosyn monotherapy -Pulm and ID following #Squamous cell lung cancer -on Carbo/Taxol -will hold chemo while patient infected -supplemental O2 as required (pt on 3L @ home)
--- NOTE | 2019-04-06 12:44 | DS ---
Physical Examination Vital Signs: Vital Signs Temperature 99.2 F 04/06/19 05:52 Pulse Rate 88 04/06/19 05:52 Respiratory Rate 16 04/06/19 10:00 Blood Pressure 129/70 04/06/19 10:00 O2 Sat by Pulse Oximetry (%) 94 L 04/06/19 08:24 Findings/Remarks: Laboratory Tests 03/28/19 03/28/19 03/28/19 02:00 02:00 02:00 WBC 11.5 H RBC 3.33 L Hgb 10.1 L Hct 30.5 L MCV 91.9 MCH 30.3 MCHC 33.0 RDW 14.9 Plt Count 184 MPV 7.3 L Absolute Neuts (auto) 10.6 H Total Counted Neutrophils % 91.8 H D Neutrophils % (Manual) 74.0 Band Neutrophils % 20.0 Lymphocytes % 2.4 L D Lymphocytes % (Manual) 2.0 L D Monocytes % 5.8 Monocytes % (Manual) 2 L Eosinophils % 0.0 D Eosinophils % (Manual) 0.0 D Basophils % 0.0 Basophils % (Manual) 0.0 Myelocytes % (Man) 0 D Promyelocytes % (Man) 0 Blast Cells % (Manual) 0 Nucleated RBC % 0 Metamyelocytes 1 D Differential Comment Hypochromia 0 Platelet Estimate Normal Platelet Comment Polychromasia 0 Poikilocytosis 1+ Anisocytosis 2+ Microcytosis 1+ Macrocytosis 0 Ovalocytes PT with INR INR PTT (Actin FS) 37.6 H VBG pH POC VBG pCO2 POC VBG pO2 VBG HCO3 VBG O2 Sat (Wang) VBG Base Excess Sodium Potassium Chloride Carbon Dioxide Anion Gap BUN Creatinine Est GFR (CKD-EPI)AfAm Est GFR (CKD-EPI)NonAf Random Glucose Lactic Acid Calcium Magnesium Iron TIBC Iron Saturation Unsaturated IBC Ferritin Total Bilirubin AST ALT Alkaline Phosphatase Creatine Kinase CK-MB (CK-2) Troponin I < 0.02 Total Protein Albumin Vitamin B12 TSH Free T4 Urine Color Urine Appearance Urine pH Ur Specific [place] Urine Protein Urine Glucose (UA) Urine Ketones Urine Blood Urine Nitrite Urine Bilirubin Urine Urobilinogen Ur Leukocyte Esterase Stool Occult Blood Blood Type Antibody Screen Crossmatch 03/28/19 03/28/19 03/28/19 02:00 02:00 02:00 WBC RBC Hgb Hct MCV MCH MCHC RDW Plt Count MPV Absolute Neuts (auto) Total Counted Neutrophils % Neutrophils % (Manual) Band Neutrophils % Lymphocytes % Lymphocytes % (Manual) Monocytes % Monocytes % (Manual) Eosinophils % Eosinophils % (Manual) Basophils % Basophils % (Manual) Myelocytes % (Man) Promyelocytes % (Man) Blast Cells % (Manual) Nucleated RBC % Metamyelocytes Differential Comment Hypochromia Platelet Estimate Platelet Comment Polychromasia Poikilocytosis Anisocytosis Microcytosis Macrocytosis Ovalocytes PT with INR INR PTT (Actin FS) VBG pH POC VBG pCO2 POC VBG pO2 VBG HCO3 VBG O2 Sat (Wang) VBG Base Excess Sodium 139 Potassium 4.2 Chloride 104 Carbon Dioxide 25 Anion Gap 11 BUN 13.0 Creatinine 1.1 Est GFR (CKD-EPI)AfAm 82.37 Est GFR (CKD-EPI)NonAf 71.07 Random Glucose 150 H Lactic Acid Calcium 8.4 L Magnesium Iron TIBC Iron Saturation Unsaturated IBC Ferritin Total Bilirubin 0.3 AST 31 ALT 65 H Alkaline Phosphatase 54 Creatine Kinase 39 CK-MB (CK-2) < 1.0 Troponin I Total Protein 6.4 Albumin 3.2 L Vitamin B12 TSH Free T4 Urine Color Urine Appearance Urine pH Ur Specific [place] Urine Protein Urine Glucose (UA) Urine Ketones Urine Blood Urine Nitrite Urine Bilirubin Urine Urobilinogen Ur Leukocyte Esterase Stool Occult Blood Blood Type Antibody Screen Crossmatch 03/28/19 03/28/19 03/28/19 02:00 02:00 02:00 WBC RBC Hgb Hct MCV MCH MCHC RDW Plt Count MPV Absolute Neuts (auto) Total Counted Neutrophils % Neutrophils % (Manual) Band Neutrophils % Lymphocytes % Lymphocytes % (Manual) Monocytes % Monocytes % (Manual) Eosinophils % Eosinophils % (Manual) Basophils % Basophils % (Manual) Myelocytes % (Man) Promyelocytes % (Man) Blast Cells % (Manual) Nucleated RBC % Metamyelocytes Differential Comment Hypochromia Platelet Estimate Platelet Comment Polychromasia Poikilocytosis Anisocytosis Microcytosis Macrocytosis Ovalocytes PT with INR 14.60 H INR 1.23 H PTT (Actin FS) VBG pH POC VBG pCO2 POC VBG pO2 VBG HCO3 VBG O2 Sat (Wang) VBG Base Excess Sodium Potassium Chloride Carbon Dioxide Anion Gap BUN Creatinine Est GFR (CKD-EPI)AfAm Est GFR (CKD-EPI)NonAf Random Glucose Lactic Acid 2.2 H* Calcium Magnesium Iron TIBC Iron Saturation Unsaturated IBC Ferritin Total Bilirubin AST ALT Alkaline Phosphatase Creatine Kinase CK-MB (CK-2) Troponin I Total Protein Albumin Vitamin B12 TSH Free T4 Urine Color Urine Appearance Urine pH Ur Specific [place] Urine Protein Urine Glucose (UA) Urine Ketones Urine Blood Urine Nitrite Urine Bilirubin Urine Urobilinogen Ur Leukocyte Esterase Stool Occult Blood Blood Type O POSITIVE Antibody Screen Negative Crossmatch 03/28/19 03/28/19 03/28/19 02:00 05:00 05:20 WBC RBC Hgb Hct MCV MCH MCHC RDW Plt Count MPV Absolute Neuts (auto) Total Counted Neutrophils % Neutrophils % (Manual) Band Neutrophils % Lymphocytes % Lymphocytes % (Manual) Monocytes % Monocytes % (Manual) Eosinophils % Eosinophils % (Manual) Basophils % Basophils % (Manual) Myelocytes % (Man) Promyelocytes % (Man) Blast Cells % (Manual) Nucleated RBC % Metamyelocytes Differential Comment Hypochromia Platelet Estimate Platelet Comment Polychromasia Poikilocytosis Anisocytosis Microcytosis Macrocytosis Ovalocytes PT with INR INR PTT (Actin FS) VBG pH 7.40 POC VBG pCO2 40.2 POC VBG pO2 58.7 H VBG HCO3 24.6 VBG O2 Sat (Wang) 89.3 H VBG Base Excess 0.4 Sodium Potassium Chloride Carbon Dioxide Anion Gap BUN Creatinine Est GFR (CKD-EPI)AfAm Est GFR (CKD-EPI)NonAf Random Glucose Lactic Acid 2.2 H* Calcium Magnesium Iron TIBC Iron Saturation Unsaturated IBC Ferritin Total Bilirubin AST ALT Alkaline Phosphatase Creatine Kinase CK-MB (CK-2) Troponin I Total Protein Albumin Vitamin B12 TSH Free T4 Urine Color Yellow Urine Appearance Cloudy Urine pH 5.0 Ur Specific [place] 1.027 Urine Protein Negative Urine Glucose (UA) Negative Urine Ketones Trace H Urine Blood Negative Urine Nitrite Negative Urine Bilirubin Negative Urine Urobilinogen 0.2 Ur Leukocyte Esterase Negative Stool Occult Blood Blood Type Antibody Screen Crossmatch 03/29/19 03/29/19 03/29/19 07:40 07:40 07:40 WBC 8.3 RBC 2.97 L Hgb 9.2 L Hct 27.3 L MCV 92.0 MCH 31.0 MCHC 33.7 RDW 14.9 Plt Count 150 MPV 7.5 Absolute Neuts (auto) 7.7 Total Counted Neutrophils % 92.9 H Neutrophils % (Manual) 91.0 H D Band Neutrophils % 0.0 Lymphocytes % 5.4 L D Lymphocytes % (Manual) 7.0 L D Monocytes % 1.5 L Monocytes % (Manual) 1 L Eosinophils % 0.1 D Eosinophils % (Manual) 1.0 D Basophils % 0.1 D Basophils % (Manual) 0.0 Myelocytes % (Man) 0 Promyelocytes % (Man) 0 Blast Cells % (Manual) 0 Nucleated RBC % 0 Metamyelocytes 0 D Differential Comment Hypochromia Platelet Estimate Adequate Platelet Comment Polychromasia Poikilocytosis Anisocytosis Microcytosis Macrocytosis Ovalocytes PT with INR INR PTT (Actin FS) VBG pH POC VBG pCO2 POC VBG pO2 VBG HCO3 VBG O2 Sat (Wang) VBG Base Excess Sodium 140 Potassium 3.4 L Chloride 105 Carbon Dioxide 27 Anion Gap 9 BUN 10.4 Creatinine 0.8 Est GFR (CKD-EPI)AfAm 110.19 Est GFR (CKD-EPI)NonAf 95.07 Random Glucose 82 Lactic Acid 1.6 Calcium 8.1 L Magnesium Iron TIBC Iron Saturation Unsaturated IBC Ferritin Total Bilirubin 0.2 AST 18 ALT 49 Alkaline Phosphatase 44 L Creatine Kinase CK-MB (CK-2) Troponin I Total Protein 6.1 L Albumin 3.0 L Vitamin B12 TSH 1.29 Free T4 Urine Color Urine Appearance Urine pH Ur Specific [place] Urine Protein Urine Glucose (UA) Urine Ketones Urine Blood Urine Nitrite Urine Bilirubin Urine Urobilinogen Ur Leukocyte Esterase Stool Occult Blood Blood Type Antibody Screen Crossmatch 03/29/19 03/30/19 03/30/19 07:40 07:10 07:10 WBC 11.0 H RBC 2.74 L Hgb 8.5 L Hct 25.5 L MCV 93.0 MCH 30.9 MCHC 33.2 RDW 15.1 Plt Count 133 L MPV 7.8 Absolute Neuts (auto) Total Counted Neutrophils % Neutrophils % (Manual) Band Neutrophils % Lymphocytes % Lymphocytes % (Manual) Monocytes % Monocytes % (Manual) Eosinophils % Eosinophils % (Manual) Basophils % Basophils % (Manual) Myelocytes % (Man) Promyelocytes % (Man) Blast Cells % (Manual) Nucleated RBC % Metamyelocytes Differential Comment Hypochromia Platelet Estimate Platelet Comment Polychromasia Poikilocytosis Anisocytosis Microcytosis Macrocytosis Ovalocytes PT with INR INR PTT (Actin FS) VBG pH POC VBG pCO2 POC VBG pO2 VBG HCO3 VBG O2 Sat (Wang) VBG Base Excess Sodium 141 Potassium 4.1 Chloride 105 Carbon Dioxide 27 Anion Gap 9 BUN 12.3 Creatinine 1.2 Est GFR (CKD-EPI)AfAm 74.14 Est GFR (CKD-EPI)NonAf 63.97 Random Glucose 108 H Lactic Acid Calcium 7.9 L Magnesium 1.9 Iron 195 H TIBC 216 L Iron Saturation 90 H Unsaturated IBC 21 L Ferritin 633.9 H Total Bilirubin AST ALT Alkaline Phosphatase Creatine Kinase CK-MB (CK-2) Troponin I Total Protein Albumin Vitamin B12 786 TSH Free T4 1.04 Urine Color Urine Appearance Urine pH Ur Specific [place] Urine Protein Urine Glucose (UA) Urine Ketones Urine Blood Urine Nitrite Urine Bilirubin Urine Urobilinogen Ur Leukocyte Esterase Stool Occult Blood Blood Type Antibody Screen Crossmatch 03/30/19 03/30/19 03/31/19 09:00 12:22 06:35 WBC 7.3 RBC 2.75 L Hgb 8.6 L Hct 25.6 L MCV 93.3 MCH 31.2 MCHC 33.4 RDW 15.6 Plt Count 113 L MPV 7.8 Absolute Neuts (auto) Total Counted Neutrophils % Neutrophils % (Manual) Band Neutrophils % Lymphocytes % Lymphocytes % (Manual) Monocytes % Monocytes % (Manual) Eosinophils % Eosinophils % (Manual) Basophils % Basophils % (Manual) Myelocytes % (Man) Promyelocytes % (Man) Blast Cells % (Manual) Nucleated RBC % Metamyelocytes Differential Comment Hypochromia Platelet Estimate Platelet Comment Polychromasia Poikilocytosis Anisocytosis Microcytosis Macrocytosis Ovalocytes PT with INR INR PTT (Actin FS) VBG pH POC VBG pCO2 POC VBG pO2 VBG HCO3 VBG O2 Sat (Wang) VBG Base Excess Sodium Potassium Chloride Carbon Dioxide Anion Gap BUN Creatinine Est GFR (CKD-EPI)AfAm Est GFR (CKD-EPI)NonAf Random Glucose Lactic Acid Calcium Magnesium Iron TIBC Iron Saturation Unsaturated IBC Ferritin Total Bilirubin AST ALT Alkaline Phosphatase Creatine Kinase 53 CK-MB (CK-2) Troponin I < 0.02 Total Protein Albumin Vitamin B12 TSH Free T4 Urine Color Urine Appearance Urine pH Ur Specific [place] Urine Protein Urine Glucose (UA) Urine Ketones Urine Blood Urine Nitrite Urine Bilirubin Urine Urobilinogen Ur Leukocyte Esterase Stool Occult Blood Negative Blood Type Antibody Screen Crossmatch 04/01/19 04/01/19 04/01/19 07:00 07:00 17:10 WBC 1.9 L* 1.1 L* RBC 2.61 L 2.71 L Hgb 8.0 L 8.3 L Hct 24.4 L 25.4 L MCV 93.4 93.8 MCH 30.4 30.6 MCHC 32.6 32.7 RDW 15.1 15.1 Plt Count 95 L 83 L MPV 7.9 7.6 Absolute Neuts (auto) 1.5 0.8 L Total Counted 100 100 Neutrophils % 80.5 70.7 Neutrophils % (Manual) 79.0 65.0 Band Neutrophils % 1.0 Lymphocytes % 17.4 D 23.9 D Lymphocytes % (Manual) 19.0 D 33.0 D Monocytes % 1.1 L 2.9 L D Monocytes % (Manual) 1 L Eosinophils % 0.9 D 1.8 D Eosinophils % (Manual) 1.0 1.0 Basophils % 0.1 0.7 D Basophils % (Manual) Myelocytes % (Man) Promyelocytes % (Man) Blast Cells % (Manual) Nucleated RBC % 0 0 Metamyelocytes Differential Comment Hypochromia Platelet Estimate Decreased Adequate Platelet Comment Polychromasia Poikilocytosis Anisocytosis Microcytosis Macrocytosis Ovalocytes PT with INR INR PTT (Actin FS) VBG pH POC VBG pCO2 POC VBG pO2 VBG HCO3 VBG O2 Sat (Wang) VBG Base Excess Sodium 140 Potassium 3.6 Chloride 104 Carbon Dioxide 30 Anion Gap 6 L BUN 7.5 Creatinine 0.8 Est GFR (CKD-EPI)AfAm 110.19 Est GFR (CKD-EPI)NonAf 95.07 Random Glucose 105 Lactic Acid Calcium 8.0 L Magnesium 2.0 Iron TIBC Iron Saturation Unsaturated IBC Ferritin Total Bilirubin 0.4 AST 16 ALT 32 Alkaline Phosphatase 46 Creatine Kinase CK-MB (CK-2) Troponin I Total Protein 5.7 L Albumin 2.6 L Vitamin B12 TSH Free T4 Urine Color Urine Appearance Urine pH Ur Specific [place] Urine Protein Urine Glucose (UA) Urine Ketones Urine Blood Urine Nitrite Urine Bilirubin Urine Urobilinogen Ur Leukocyte Esterase Stool Occult Blood Blood Type Antibody Screen Crossmatch 04/02/19 04/02/19 04/02/19 07:45 07:45 18:00 WBC 1.2 L* 1.4 L* RBC 2.54 L 2.59 L Hgb 7.7 L 8.0 L Hct 23.6 L 24.1 L MCV 93.0 92.8 MCH 30.5 30.9 MCHC 32.8 33.3 RDW 15.1 14.8 Plt Count 71 L 66 L MPV 7.7 7.1 L Absolute Neuts (auto) 1.0 L Total Counted 100 Neutrophils % 69.1 Neutrophils % (Manual) 68.0 Band Neutrophils % Lymphocytes % 25.7 Lymphocytes % (Manual) 27.0 Monocytes % 4.4 Monocytes % (Manual) 3 L D Eosinophils % 0.3 D Eosinophils % (Manual) Basophils % 0.5 Basophils % (Manual) Myelocytes % (Man) 1 D Promyelocytes % (Man) Blast Cells % (Manual) Nucleated RBC % 0 Metamyelocytes Differential Comment Man diff performed Hypochromia Platelet Estimate Mod decreased Platelet Comment Slide scanned. Polychromasia Poikilocytosis 1+ Anisocytosis 1+ Microcytosis 1+ Macrocytosis 1+ Ovalocytes 1+ PT with INR INR PTT (Actin FS) VBG pH POC VBG pCO2 POC VBG pO2 VBG HCO3 VBG O2 Sat (Wang) VBG Base Excess Sodium 139 Potassium 3.6 Chloride 102 Carbon Dioxide 30 Anion Gap 7 L BUN 8.5 Creatinine 0.9 Est GFR (CKD-EPI)AfAm 104.98 Est GFR (CKD-EPI)NonAf 90.58 Random Glucose 100 Lactic Acid Calcium 8.2 L Magnesium Iron TIBC Iron Saturation Unsaturated IBC Ferritin Total Bilirubin 0.2 AST 23 ALT 39 Alkaline Phosphatase 48 Creatine Kinase CK-MB (CK-2) Troponin I Total Protein 6.0 L Albumin 2.6 L Vitamin B12 TSH Free T4 Urine Color Urine Appearance Urine pH Ur Specific [place] Urine Protein Urine Glucose (UA) Urine Ketones Urine Blood Urine Nitrite Urine Bilirubin Urine Urobilinogen Ur Leukocyte Esterase Stool Occult Blood Blood Type Antibody Screen Crossmatch 04/03/19 04/03/19 04/03/19 06:20 06:20 10:36 WBC 1.4 L* RBC 2.45 L Hgb 7.7 L Hct 22.5 L MCV 91.9 MCH 31.7 MCHC 34.5 RDW 15.2 Plt Count 61 L MPV 7.1 L Absolute Neuts (auto) 0.9 L Total Counted Neutrophils % 68.4 Neutrophils % (Manual) 72.7 Band Neutrophils % 1.0 Lymphocytes % 25.4 Lymphocytes % (Manual) 24.3 Monocytes % 5.5 Monocytes % (Manual) 2 L Eosinophils % 0.4 Eosinophils % (Manual) 0.0 D Basophils % 0.3 Basophils % (Manual) 0.0 Myelocytes % (Man) 0 D Promyelocytes % (Man) 0 Blast Cells % (Manual) 0 Nucleated RBC % 0 Metamyelocytes 0 Differential Comment Hypochromia 0 Platelet Estimate Decreased Platelet Comment Polychromasia 1+ Poikilocytosis 0 Anisocytosis 1+ Microcytosis 1+ Macrocytosis 0 Ovalocytes PT with INR INR PTT (Actin FS) VBG pH POC VBG pCO2 POC VBG pO2 VBG HCO3 VBG O2 Sat (Wang) VBG Base Excess Sodium 142 Potassium 3.6 Chloride 104 Carbon Dioxide 28 Anion Gap 10 BUN 5.1 L Creatinine 0.8 Est GFR (CKD-EPI)AfAm 110.19 Est GFR (CKD-EPI)NonAf 95.07 Random Glucose 98 Lactic Acid Calcium 8.2 L Magnesium Iron TIBC Iron Saturation Unsaturated IBC Ferritin Total Bilirubin 0.2 AST 62 H ALT 64 H Alkaline Phosphatase 46 Creatine Kinase CK-MB (CK-2) Troponin I Total Protein 5.9 L Albumin 2.6 L Vitamin B12 TSH Free T4 Urine Color Urine Appearance Urine pH Ur Specific [place] Urine Protein Urine Glucose (UA) Urine Ketones Urine Blood Urine Nitrite Urine Bilirubin Urine Urobilinogen Ur Leukocyte Esterase Stool Occult Blood Blood Type O POSITIVE Antibody Screen Negative Crossmatch See Detail 04/04/19 04/04/19 04/05/19 06:18 06:18 06:38 WBC 2.0 L 3.5 L RBC 2.80 L 2.90 L Hgb 8.9 L 9.0 L Hct 25.8 L 27.3 L MCV 92.1 94.0 MCH 31.7 30.9 MCHC 34.4 32.9 RDW 14.5 14.8 Plt Count 55 L 50 L MPV 7.2 L 7.9 Absolute Neuts (auto) 2.7 Total Counted Neutrophils % 78.2 Neutrophils % (Manual) Band Neutrophils % Lymphocytes % 12.4 D Lymphocytes % (Manual) Monocytes % 8.9 Monocytes % (Manual) Eosinophils % 0.4 Eosinophils % (Manual) Basophils % 0.1 Basophils % (Manual) Myelocytes % (Man) Promyelocytes % (Man) Blast Cells % (Manual) Nucleated RBC % 0 Metamyelocytes Differential Comment Hypochromia Platelet Estimate Platelet Comment Polychromasia Poikilocytosis Anisocytosis Microcytosis Macrocytosis Ovalocytes PT with INR INR PTT (Actin FS) VBG pH POC VBG pCO2 POC VBG pO2 VBG HCO3 VBG O2 Sat (Wang) VBG Base Excess Sodium 141 Potassium 4.0 Chloride 105 Carbon Dioxide 30 Anion Gap 7 L BUN 3.8 L Creatinine 0.7 Est GFR (CKD-EPI)AfAm 116.40 Est GFR (CKD-EPI)NonAf 100.43 Random Glucose 97 Lactic Acid Calcium 8.3 L Magnesium 1.9 Iron TIBC Iron Saturation Unsaturated IBC Ferritin Total Bilirubin 0.2 AST 68 H ALT 88 H Alkaline Phosphatase 46 Creatine Kinase CK-MB (CK-2) Troponin I Total Protein 5.9 L Albumin 2.6 L Vitamin B12 TSH Free T4 Urine Color Urine Appearance Urine pH Ur Specific [place] Urine Protein Urine Glucose (UA) Urine Ketones Urine Blood Urine Nitrite Urine Bilirubin Urine Urobilinogen Ur Leukocyte Esterase Stool Occult Blood Blood Type Antibody Screen Crossmatch 04/05/19 04/06/19 04/06/19 06:38 06:40 06:40 WBC 19.3 H RBC 2.97 L Hgb 9.3 L Hct 27.7 L MCV 93.3 MCH 31.3 MCHC 33.6 RDW 14.7 Plt Count 58 L MPV 7.6 Absolute Neuts (auto) 17.8 H Total Counted Neutrophils % 92.2 H Neutrophils % (Manual) 80.2 Band Neutrophils % 9.9 Lymphocytes % 3.0 L D Lymphocytes % (Manual) 4.9 L D Monocytes % 4.2 Monocytes % (Manual) 5 D Eosinophils % 0.1 Eosinophils % (Manual) 0.0 Basophils % 0.5 D Basophils % (Manual) 0.0 Myelocytes % (Man) 0 Promyelocytes % (Man) 0 Blast Cells % (Manual) 0 Nucleated RBC % 0 Metamyelocytes 0 Differential Comment Hypochromia 0 Platelet Estimate Decreased Platelet Comment Polychromasia 0 Poikilocytosis 0 Anisocytosis 0 Microcytosis 0 Macrocytosis 0 Ovalocytes PT with INR INR PTT (Actin FS) VBG pH POC VBG pCO2 POC VBG pO2 VBG HCO3 VBG O2 Sat (Wang) VBG Base Excess Sodium 141 142 Potassium 3.7 3.6 Chloride 106 104 Carbon Dioxide 29 31 Anion Gap 7 L 7 L BUN 2.6 L* 3.6 L Creatinine 0.7 0.7 Est GFR (CKD-EPI)AfAm 116.40 116.40 Est GFR (CKD-EPI)NonAf 100.43 100.43 Random Glucose 97 83 Lactic Acid Calcium 8.1 L 8.1 L Magnesium 1.7 L Iron TIBC Iron Saturation Unsaturated IBC Ferritin Total Bilirubin 0.2 0.2 AST 54 H 39 H ALT 81 H 72 H Alkaline Phosphatase 42 L 44 L Creatine Kinase CK-MB (CK-2) Troponin I Total Protein 5.8 L 5.7 L Albumin 2.7 L 2.8 L Vitamin B12 TSH Free T4 Urine Color Urine Appearance Urine pH Ur Specific [place] Urine Protein Urine Glucose (UA) Urine Ketones Urine Blood Urine Nitrite Urine Bilirubin Urine Urobilinogen Ur Leukocyte Esterase Stool Occult Blood Blood Type Antibody Screen Crossmatch Active Medications Generic Name Dose Route Start Last Admin Trade Name Freq PRN Reason Stop Dose Admin Acetaminophen 650 mg 03/28/19 11:00 04/05/19 22:24 Tylenol - PO 650 mg Q4H PRN Administration PAIN OR FEVER Albuterol Sulfate 1 amp 03/28/19 10:59 04/06/19 10:35 Ventolin 0.083% Nebulizer Soln - NEB 1 amp Q4H PRN Administration SHORT OF BREATH/WHEEZING Diltiazem HCl 120 mg 03/28/19 11:00 04/06/19 09:30 Cardizem Cd - PO Not Given DAILY [facility] Enoxaparin Sodium 100 mg 03/28/19 11:00 04/06/19 09:30 Lovenox - SQ 100 mg BID ALONDRA Administration Ergocalciferol 50,000 unit 04/01/19 10:00 04/01/19 17:13 Drisdol - PO Not Given Sa [facility] Gabapentin 300 mg 03/28/19 11:00 04/06/19 09:29 Neurontin - PO 300 mg BID ALONDRA Administration Guaifenesin 10 ml 04/04/19 11:52 04/05/19 22:06 Robitussin - PO 10 ml Q4H PRN Administration COUGH Sodium Chloride 1,000 mls @ 75 mls/hr 04/03/19 09:00 04/06/19 11:02 Normal Saline - IV 75 mls/hr ASDIR ALONDRA Administration Piperacillin Sod/Tazobactam 50 mls @ 100 mls/hr 04/06/19 12:00 Sod 3.375 gm/ Dextrose IVPB Q8H-IV ALONDRA Protocol Lactobacillus Acidophilus 1 tab 04/03/19 10:00 04/06/19 09:29 Bacid - PO 1 tab DAILY ALONDRA Administration Morphine Sulfate 30 mg 03/28/19 12:26 04/06/19 09:29 Ms Contin - PO 30 mg BID ALONDRA Administration Nystatin 500,000 unit 03/31/19 14:00 04/06/19 05:50 Nystatin PO 500,000 unit TID ALONDRA Administration Ondansetron HCl 8 mg 03/28/19 14:00 04/06/19 05:50 Zofran - PO 8 mg TID ALONDRA Administration Oxycodone HCl 30 mg 03/30/19 13:55 04/06/19 10:53 Roxicodone - PO 30 mg Q6H PRN Administration PAIN LEVEL 6-10 Pantoprazole Sodium 40 mg 03/28/19 11:00 04/06/19 09:29 Protonix - PO 40 mg DAILY ALONDRA Administration Rosuvastatin Calcium 40 mg 04/04/19 22:00 04/05/19 21:04 Crestor - PO 40 mg HS ALONDRA Administration Sotalol HCl 80 mg 03/28/19 11:00 04/06/19 09:29 Betapace - PO 80 mg BID ALONDRA Administration Tiotropium [place]/Olodaterol 1 puff 03/28/19 22:00 04/06/19 09:31 Stiolto Respimat Inhal [place] IH 1 puff BID ALONDRA Administration Zolpidem Tartrate 5 mg 03/28/19 20:43 04/05/19 22:05 Ambien - PO 5 mg HS PRN Administration INSOMNIA Microbiology 03/28/19 02:00 Blood - Peripheral Venous Blood Culture - Final NO GROWTH AFTER 5 DAYS INCUBATION 03/28/19 02:00 Blood - Peripheral Venous Blood Culture - Final NO GROWTH AFTER 5 DAYS INCUBATION 03/28/19 18:40 Urine For Antigen Detection Legionella Antigen - Final 03/28/19 18:40 Urine For Antigen Detection Streptococcus pneumoniae Antigen (M - Final 03/28/19 05:20 Urine - Urine Clean Catch Urine Culture - Final NO GROWTH OBTAINED Constitutional: Yes: No Distress, Calm Eyes: Yes: Conjunctiva Clear HENT: Yes: Atraumatic Cardiovascular: Yes: Regular Rate and Rhythm Respiratory: Yes: Regular, Diminished, On Nasal O2 Gastrointestinal: Yes: Normal Bowel Sounds, Soft Musculoskeletal: Yes: Muscle Weakness Extremities: Yes: WNL Edema: No Neurological: Yes: Alert, Oriented Psychiatric: Yes: Alert, Oriented Labs: CBC, BMP 04/06/19 06:40 04/06/19 06:40 Discharge Summary Problems reviewed: Yes Reason For Visit: SHORTNESS OF BREATH,SEPSIS,PNEUMONIA Current Active Problems Lactic acidosis (Acute) Pneumonia (Acute) Sepsis (Acute) Shortness of breath (Acute) Hospital Course: Leoncio Reina is a 63 yo M w a pmh of HTN, HLD, Lung CA on chemo via PICC ( squamous cell carcinoma (s/p carbo/taxol therapy)), COPD on 3L home O2, LISA, PE on Lovenox, atrial fibrillation, SVC syndrome s/p stent placement who presents to the [facility] er with fevers for the past 3 days, a cough, and shortness of breath. Patient endorses non-stop hot and cold flashes as well as chills and rigors. Patient is receiving chemotherapy and had chemo yesterday. While in patient received IV antibiotic therapy for pneumonia. Patient had episode of neutropenia after receiving chemotherapy. After one dose of Granix WBC improve. Patient responded well to antibiotic therapy and switched to oral antibiotics for discharge. Condition: Stable - Instructions Diet, Activity, Other Instructions: follow up with PMD in 1 week follow up with Oncologist Dr Rivera as scheduled Augmentin 875mg twice daily for 7days continue with medication as prescribed return to ER if develop fever >100F, chest pain, respiratory distress, severe pain Disposition: VNS/HOME HEALTH CARE - Home Medications Comprehensive Discharge Medication List: Ambulatory Orders Albuterol Sulfate [Proventil HFA Inhaler -] 1 - 2 inh PO QID 02/22/18 Sotalol HCl [Betapace -] 80 mg PO BID tablet 04/29/18 Tiotropium [place] [Spiriva Respimat] 2 puff IH DAILY inhaler 04/29/18 Diltiazem Cd [Cardizem Cd -] 120 mg PO DAILY #30 cap.cd.24h 05/05/18 Oxycodone HCl 30 mg PO Q6H PRN 08/09/18 Ondansetron HCl [Zofran] 8 mg PO TID 11/24/18 Morphine *Sr* [MS Contin -] 30 mg PO Q12H 11/25/18 Enoxaparin [Lovenox -] 100 mg SQ BID 03/28/19 Ergocalciferol (Vitamin D2) [Vitamin D2] 50,000 unit PO WEEKLY 03/28/19 Gabapentin 300 mg PO BID 03/28/19 Pantoprazole Sodium [Protonix] 40 mg PO DAILY 03/28/19 Pravastatin Sodium [Pravachol] 40 mg PO DAILY 03/28/19 Tiotropium Br/Olodaterol HCl [Stiolto Respimat Inhal [place]] 1 puff BID 03/28/19 Zolpidem Tartrate [Ambien] 10 mg PO HS 03/28/19 Amox-Tr/K Cl [Augmentin 500-125mg Tablet -] 1 each PO BID #14 tablet 04/06/19 Guaifenesin [Robitussin -] 10 ml PO Q4H PRN #1 bottle 04/06/19 Lactobacillus Acidophilus [Bacid -] 1 tab PO DAILY #14 tab 04/06/19
[2019-04-06 13:45] VITALS: BP 116/75; PULSE 93; TEMP 99.3
== END 2019-04-06 18:29 | disposition home health service (06) | DRG 871 ==
LOC: JER 00:15 → JERBED 04:14 → J7W 13:54
PROVIDERS: ADMIT Family Medicine; ATTEND Family Medicine
DX: A41.9 Sepsis, unspecified organism (principal); J18.1 Lobar pneumonia, unspecified organism; C34.90 Malignant neoplasm of unspecified part of unspecified bronchus or lung; E87.2 Acidosis; J96.11 Chronic respiratory failure with hypoxia; B37.0 Candidal stomatitis; I48.92 Unspecified atrial flutter; D61.818 Other pancytopenia; I10 Essential (primary) hypertension; E78.5 Hyperlipidemia, unspecified; Z99.81 Dependence on supplemental oxygen; G47.33 Obstructive sleep apnea (adult) (pediatric); Z86.711 Personal history of pulmonary embolism; I48.0 Paroxysmal atrial fibrillation; I27.20 Pulmonary hypertension, unspecified; D64.9 Anemia, unspecified; Z79.01 Long term (current) use of anticoagulants; I25.10 Atherosclerotic heart disease of native coronary artery without angina pectoris; J43.9 Emphysema, unspecified
CPT/HCPCS: 36415; 36430; 36511; 71045-TC-FY; 71250-TC; 80048; 80053; 81003; 82272; 82550; 82553; 82607; 82728; 82803; 83540; 83550; 83605; 83735; 84439; 84443; 84484; 85025; 85027; 85610; 85730; 86850; 86900; 86901; 86922; 87040; 87070; 87086; 87205; 87899; 93005; 93010; 94640; 99285-25; J0131; J1447; J3535; J7030; P9038; P9058

== ENCOUNTER 2019-04-17 06:51 | Day surgery (SDC) | payer BC, OTHER ==
[2019-04-17] MEDS ORDERED: PALONOSETRON HCL 0.25 MG/5 ML VIAL IVPUSH ONE (09:30)
[2019-04-17] MEDS ORDERED: DEXAMETHASONE SODIUM PHOSPHATE 10 MG in SODIUM CHLORIDE 50 ML IVPB ONE (09:30)
[2019-04-17] MEDS ORDERED: GEMCITABINE HCL IV ONE (10:00)
[2019-04-17] MEDS ORDERED: SODIUM CHLORIDE IV ONE (10:00)
[2019-04-17] MEDS ORDERED: SODIUM CHLORIDE 500 ML IV ONE (10:30)
[2019-04-17 12:26] LABS: BASO % 0.7 % (0-2.0); EOS % 3.1 % (0-4.5); HEMATOCRIT 36.3 % (35.4-49); HEMOGLOBIN 11.6 GM/dL (11.7-16.9); LYMPH % 20.7 % (8-40); MCH 30.3 pg (25.7-33.7); MCHC 31.9 g/dl (32.0-35.9); MEAN CELL VOLUME 95.2 fl (80-96); MEAN PLT VOLUME 7.6 fl (7.5-11.1); MONO % 17.7 % (3.8-10.2); NEUT % 57.8 % (42.8-82.8); PLATELET COUNT 382 K/MM3 (134-434); RBC 3.82 M/mm3 (4.00-5.60); RDW 17.3 % (11.9-15.9); WHITE BLOOD COUNT 4.8 K/mm3 (4.0-10.0)
[2019-04-17 12:52] LABS: ALBUMIN 3.6 g/dl (3.4-5.0); BILIRUBIN,TOTAL 0.2 mg/dL (0.2-1); BLOOD UREA NITROGEN 8.6 mg/dL (7-18); CREATININE 0.8 mg/dL (0.55-1.3); MAGNESIUM 2.1 mg/dL (1.8-2.4); POTASSIUM 4.4 mmol/L (3.5-5.1)
[2019-04-17 17:07] VITALS: BP 104/71; PULSE 90
[2019-04-17 17:19] VITALS: TEMP 97.9
== END 2019-04-17 16:00 | disposition home or self-care (01) ==
LOC: JONCCHEMO 06:51 → J7W 13:21 → JONCCHEMO 15:45
PROVIDERS: ATTEND Internal Medicine Hematology & Oncology
PROC: 3E04305 Introduction of Other Antineoplastic into Central Vein, Percutaneous Approach (ICD-10-PCS; principal; 2019-04-17)
PROC: 3E043GC Introduction of Other Therapeutic Substance into Central Vein, Percutaneous Approach (ICD-10-PCS; 2019-04-17)
PROC: 3E0437Z Introduction of Electrolytic and Water Balance Substance into Central Vein, Percutaneous Approach (ICD-10-PCS; 2019-04-17)
DX: Z51.11 Encounter for antineoplastic chemotherapy (principal); C34.11 Malignant neoplasm of upper lobe, right bronchus or lung; I10 Essential (primary) hypertension
CPT/HCPCS: 36415; 36569; 77001-TC-FY; 80053; 83735; 85025; 96361; 96367; 96375; 96413; C1751; J2469

== ENCOUNTER 2019-04-24 07:24 | Day surgery (SDC) | payer BC, OTHER ==
[2019-04-24] MEDS ORDERED: DEXAMETHASONE SODIUM PHOSPHATE 10 MG in SODIUM CHLORIDE 50 ML IVPB ONE (09:30)
[2019-04-24] MEDS ORDERED: PALONOSETRON HCL 0.25 MG/5 ML VIAL IVPUSH ONE (09:30)
[2019-04-24] MEDS ORDERED: SODIUM CHLORIDE IV ONE (10:00)
[2019-04-24] MEDS ORDERED: GEMCITABINE HCL IV ONE (10:00)
[2019-04-24] MEDS ORDERED: SODIUM CHLORIDE 500 ML IV ONE (10:30)
[2019-04-24 12:23] LABS: BASO % 2.3 % (0-2.0); EOS % 3.1 % (0-4.5); HEMOGLOBIN 11.1 GM/dL (11.7-16.9); LYMPH % 42.5 % (8-40); MCH 30.5 pg (25.7-33.7); MCHC 32.6 g/dl (32.0-35.9); MEAN CELL VOLUME 93.3 fl (80-96); MEAN PLT VOLUME 9.1 fl (7.5-11.1); MONO % 16.6 % (3.8-10.2); NEUT % 35.5 % (42.8-82.8); PLATELET COUNT 151 K/MM3 (134-434); RBC 3.64 M/mm3 (4.00-5.60); RDW 16.9 % (11.9-15.9)
[2019-04-24 12:28] LABS: WHITE BLOOD COUNT 1.9 K/mm3 (4.0-10.0)
[2019-04-24 13:02] LABS: ALBUMIN 3.8 g/dl (3.4-5.0); BILIRUBIN,TOTAL 0.4 mg/dL (0.2-1); BLOOD UREA NITROGEN 9.8 mg/dL (7-18); CALCIUM 9.1 mg/dL (8.5-10.1); CREATININE 0.8 mg/dL (0.55-1.3); MAGNESIUM 2.1 mg/dL (1.8-2.4); POTASSIUM 4.4 mmol/L (3.5-5.1); TOT PROT 7.8 g/dl (6.4-8.2)
[2019-04-24] MEDS ORDERED: TBO-FILGRASTIM 480 MCG/0.8 ML DISP.SYRIN SQ ONE (13:10)
[2019-04-24 14:21] LABS: ANISOCYTOSIS 1+; MACROCYTOSIS 0; PLATELET ESTIMATE NORMAL; TEAR DROP CELLS 1+
[2019-04-24 15:02] VITALS: BP 96/63; PULSE 93; TEMP 97.5
== END 2019-04-24 14:25 | disposition home or self-care (01) ==
LOC: JRADIR 07:24 → J7W 12:22 → JRADIR 14:25
PROVIDERS: ATTEND Internal Medicine Hematology & Oncology
PROC: 02HV33Z Insertion of Infusion Device into Superior Vena Cava, Percutaneous Approach (ICD-10-PCS; principal; 2019-04-24)
PROC: B518ZZA Fluoroscopy of Superior Vena Cava, Guidance (ICD-10-PCS; 2019-04-24)
DX: C34.11 Malignant neoplasm of upper lobe, right bronchus or lung (principal)
CPT/HCPCS: 36415; 36569; 36573; 77001-TC-FY; 80053; 83735; 85025; 96361; 96372; C1751; J1447

== ENCOUNTER 2019-05-08 06:26 | Day surgery (SDC) | payer BC, OTHER ==
[2019-05-08] MEDS ORDERED: DEXAMETHASONE SODIUM PHOSPHATE 10 MG in SODIUM CHLORIDE 50 ML IVPB ONE (10:00)
[2019-05-08] MEDS ORDERED: PALONOSETRON HCL 0.25 MG/5 ML VIAL IVPUSH ONE (10:00)
[2019-05-08] MEDS ORDERED: SODIUM CHLORIDE IV ONE (10:30)
[2019-05-08] MEDS ORDERED: GEMCITABINE HCL IV ONE (10:30)
[2019-05-08] MEDS ORDERED: SODIUM CHLORIDE 500 ML IV ONE (11:00)
[2019-05-08 12:18] LABS: BASO % 0.8 % (0-2.0); EOS % 4.7 % (0-4.5); HEMOGLOBIN 13.1 GM/dL (11.7-16.9); MCH 31.1 pg (25.7-33.7); MCHC 32.7 g/dl (32.0-35.9); MONO % 9.4 % (3.8-10.2); NEUT % 59.1 % (42.8-82.8); PLATELET COUNT 235 K/MM3 (134-434); RBC 4.21 M/mm3 (4.00-5.60); RDW 17.8 % (11.9-15.9)
[2019-05-08 12:55] LABS: ALBUMIN 3.7 g/dl (3.4-5.0); BILIRUBIN,TOTAL 0.4 mg/dL (0.2-1); BLOOD UREA NITROGEN 9.1 mg/dL (7-18); CALCIUM 9.2 mg/dL (8.5-10.1); CREATININE 0.8 mg/dL (0.55-1.3); POTASSIUM 4.2 mmol/L (3.5-5.1); TOT PROT 7.2 g/dl (6.4-8.2)
[2019-05-08] MEDS ORDERED: oxyCODONE HCL 5 MG TABLET PO ONE (13:58)
[2019-05-08 19:03] VITALS: TEMP 97.9
[2019-05-08 19:16] VITALS: BP 100/67; PULSE 83
== END 2019-05-08 15:50 | disposition home or self-care (01) ==
LOC: JRADIR 06:26 → J7W 13:13 → JRADIR 15:50
PROVIDERS: ATTEND Internal Medicine Hematology & Oncology
PROC: 3E04305 Introduction of Other Antineoplastic into Central Vein, Percutaneous Approach (ICD-10-PCS; principal; 2019-05-08)
PROC: 02HV33Z Insertion of Infusion Device into Superior Vena Cava, Percutaneous Approach (ICD-10-PCS; 2019-05-08)
PROC: B518ZZA Fluoroscopy of Superior Vena Cava, Guidance (ICD-10-PCS; 2019-05-08)
DX: Z51.11 Encounter for antineoplastic chemotherapy (principal); C34.11 Malignant neoplasm of upper lobe, right bronchus or lung
CPT/HCPCS: 36415; 36569; 77001-TC-FY; 80053; 83735; 85025; C1751; J2469

== ENCOUNTER 2019-05-15 05:46 | Day surgery (SDC) | payer BC, OTHER ==
[2019-05-15] MEDS ORDERED: DEXAMETHASONE SODIUM PHOSPHATE 10 MG, ONDANSETRON INJECTION 8 MG in SODIUM CHLORIDE 100 ML IVPB ONE (10:00)
[2019-05-15] MEDS ORDERED: SODIUM CHLORIDE IV ONE (10:30)
[2019-05-15] MEDS ORDERED: GEMCITABINE HCL IV ONE (10:30)
[2019-05-15] MEDS ORDERED: SODIUM CHLORIDE 500 ML IV ONE (11:00)
[2019-05-15 11:29] LABS: BASO % 0.9 % (0-2.0); EOS % 5.6 % (0-4.5); HEMATOCRIT 32.5 % (35.4-49); HEMOGLOBIN 10.6 GM/dL (11.7-16.9); LYMPH % 40.6 % (8-40); MCH 30.6 pg (25.7-33.7); MCHC 32.6 g/dl (32.0-35.9); MEAN CELL VOLUME 94.1 fl (80-96); MEAN PLT VOLUME 8.4 fl (7.5-11.1); MONO % 20.2 % (3.8-10.2); NEUT % 32.7 % (42.8-82.8); PLATELET COUNT 129 K/MM3 (134-434); RBC 3.45 M/mm3 (4.00-5.60); RDW 17.2 % (11.9-15.9)
[2019-05-15 11:43] LABS: WHITE BLOOD COUNT 1.6 K/mm3 (4.0-10.0)
[2019-05-15 11:54] LABS: ALBUMIN 3.4 g/dl (3.4-5.0); ALK PHOS 49 U/L (45-117); ANION GAP 4 MMOL/L (8-16); BILIRUBIN,DIRECT < 0.1 mg/dL (0.0-0.2); BILIRUBIN,TOTAL 0.2 mg/dL (0.2-1); BLOOD UREA NITROGEN 8.1 mg/dL (7-18); CALCIUM 9.2 mg/dL (8.5-10.1); CHLORIDE 106 mmol/L (98-107); CO2 31 mmol/L (21-32); CREATININE 0.7 mg/dL (0.55-1.3); GLUCOSE,RANDOM 97 mg/dL (74-106); MAGNESIUM 2.1 mg/dL (1.8-2.4); SGOT/AST 29 U/L (15-37); SGPT/ALT 53 U/L (13-61); SODIUM 142 mmol/L (136-145); TOT PROT 6.9 g/dl (6.4-8.2)
[2019-05-15] MEDS ORDERED: POTASSIUM CHLORIDE IVPB SCH (12:00)
[2019-05-15] MEDS ORDERED: DEXTROSE IVPB SCH (12:00)
[2019-05-15] MEDS ORDERED: TBO-FILGRASTIM 480 MCG/0.8 ML DISP.SYRIN SQ ONE (12:00)
[2019-05-15] MEDS ORDERED: [UNRECOGNIZED DRUG - OTHER] IVPB SCH (12:00)
[2019-05-15] MEDS ORDERED: NORMAL SALINE IVPB SCH (12:00)
[2019-05-15 14:11] LABS: ANISOCYTOSIS 1+; MACROCYTOSIS 1+; PLATELET ESTIMATE DECREASED
[2019-05-15 16:31] VITALS: TEMP 97.5
[2019-05-15 16:32] VITALS: BP 110/68; PULSE 86
== END 2019-05-15 15:30 | disposition home or self-care (01) ==
LOC: JRADIR 05:46 → J7W 10:40 → JRADIR 15:30
PROVIDERS: ATTEND Internal Medicine Hematology & Oncology
PROC: 05H433Z Insertion of Infusion Device into Left Innominate Vein, Percutaneous Approach (ICD-10-PCS; principal; 2019-05-15)
PROC: B51NZZA Fluoroscopy of Left Upper Extremity Veins, Guidance (ICD-10-PCS; 2019-05-15)
DX: C34.11 Malignant neoplasm of upper lobe, right bronchus or lung (principal)
CPT/HCPCS: 36415; 36569; 36573; 77001-TC-FY; 80048; 80076; 83735; 85025; C1751; J1447

== ENCOUNTER 2019-05-22 06:30 | Day surgery (SDC) | payer BC, OTHER ==
[2019-05-22 09:14] LABS: BASO % 1.9 % (0-2.0); EOS % 7.5 % (0-4.5); HEMATOCRIT 34.7 % (35.4-49); HEMOGLOBIN 11.2 GM/dL (11.7-16.9); LYMPH % 25.7 % (8-40); MCH 30.7 pg (25.7-33.7); MCHC 32.3 g/dl (32.0-35.9); MEAN CELL VOLUME 94.9 fl (80-96); MEAN PLT VOLUME 7.7 fl (7.5-11.1); MONO % 13.2 % (3.8-10.2); NEUT % 51.7 % (42.8-82.8); PLATELET COUNT 152 K/MM3 (134-434); RBC 3.66 M/mm3 (4.00-5.60); RDW 18.7 % (11.9-15.9); WHITE BLOOD COUNT 3.4 K/mm3 (4.0-10.0)
[2019-05-22 09:46] LABS: ALBUMIN 3.4 g/dl (3.4-5.0); BILIRUBIN,TOTAL 0.2 mg/dL (0.2-1); BLOOD UREA NITROGEN 10.1 mg/dL (7-18); CREATININE 0.9 mg/dL (0.55-1.3); POTASSIUM 3.8 mmol/L (3.5-5.1); TOT PROT 6.8 g/dl (6.4-8.2)
[2019-05-22] MEDS ORDERED: SODIUM CHLORIDE 500 ML IV ONE (10:00)
[2019-05-22] MEDS ORDERED: DEXAMETHASONE SODIUM PHOSPHATE 10 MG, ONDANSETRON INJECTION 8 MG in SODIUM CHLORIDE 100 ML IVPB ONE (10:00)
[2019-05-22] MEDS ORDERED: GEMCITABINE HCL 1,672 MG in SODIUM CHLORIDE 250 ML IV ONE (10:30)
[2019-05-22 17:47] VITALS: BP 101/68; PULSE 82; TEMP 97.2
== END 2019-05-22 14:45 | disposition home or self-care (01) ==
LOC: JRADIR 06:30 → J7W 12:49 → JRADIR 14:45
PROVIDERS: ATTEND Internal Medicine Hematology & Oncology
PROC: 02HV33Z Insertion of Infusion Device into Superior Vena Cava, Percutaneous Approach (ICD-10-PCS; principal; 2019-05-22)
PROC: B518ZZA Fluoroscopy of Superior Vena Cava, Guidance (ICD-10-PCS; 2019-05-22)
DX: C34.11 Malignant neoplasm of upper lobe, right bronchus or lung (principal)
CPT/HCPCS: 36415; 36569; 77001-TC-FY; 80053; 83735; 85025; C1751

== ENCOUNTER 2019-05-23 07:21 | Day surgery (SDC) | payer BC, OTHER ==
[2019-05-23] MEDS ORDERED: PEGFILGRASTIM (NEULASTA) 6 MG/0.6 ML DISP.SYRIN SQ ONE (10:00)
[2019-05-23 16:54] VITALS: BP 96/65; PULSE 105; TEMP 97.7
== END 2019-05-23 14:35 | disposition home or self-care (01) ==
LOC: JONCCHEMO 07:21 → J7W 16:34
PROVIDERS: ATTEND Internal Medicine Hematology & Oncology
PROC: 3E013GC Introduction of Other Therapeutic Substance into Subcutaneous Tissue, Percutaneous Approach (ICD-10-PCS; principal; 2019-05-23)
DX: Z76.89 Persons encountering health services in other specified circumstances (principal); C34.11 Malignant neoplasm of upper lobe, right bronchus or lung; I10 Essential (primary) hypertension
CPT/HCPCS: 96372; J2505

== ENCOUNTER 2019-06-05 05:39 | Day surgery (SDC) | payer BC, OTHER ==
[2019-06-05] MEDS ORDERED: DEXAMETHASONE SODIUM PHOSPHATE 10 MG, ONDANSETRON INJECTION 8 MG in SODIUM CHLORIDE 100 ML IVPB ONE (09:30)
[2019-06-05 09:54] LABS: BASO % 0.5 % (0-2.0); EOS % 3.2 % (0-4.5); HEMATOCRIT 33.4 % (35.4-49); HEMOGLOBIN 10.9 GM/dL (11.7-16.9); LYMPH % 14.3 % (8-40); MCH 31.1 pg (25.7-33.7); MCHC 32.6 g/dl (32.0-35.9); MEAN CELL VOLUME 95.3 fl (80-96); MEAN PLT VOLUME 7.9 fl (7.5-11.1); MONO % 12.9 % (3.8-10.2); NEUT % 69.1 % (42.8-82.8); PLATELET COUNT 193 K/MM3 (134-434); RBC 3.51 M/mm3 (4.00-5.60); RDW 20.3 % (11.9-15.9); WHITE BLOOD COUNT 6.6 K/mm3 (4.0-10.0)
[2019-06-05] MEDS ORDERED: GEMCITABINE HCL 1,672 MG in SODIUM CHLORIDE 250 ML IV ONE (10:00)
[2019-06-05] MEDS ORDERED: SODIUM CHLORIDE 500 ML IV ONE (10:30)
[2019-06-05 10:58] LABS: ALBUMIN 3.5 g/dl (3.4-5.0); BILIRUBIN,TOTAL 0.5 mg/dL (0.2-1); BLOOD UREA NITROGEN 8.5 mg/dL (7-18); CALCIUM 8.8 mg/dL (8.5-10.1); CREATININE 0.9 mg/dL (0.55-1.3); MAGNESIUM 2.2 mg/dL (1.8-2.4); POTASSIUM 4.1 mmol/L (3.5-5.1); TOT PROT 6.9 g/dl (6.4-8.2)
[2019-06-05 19:04] VITALS: BP 124/72; PULSE 107; TEMP 97.9
== END 2019-06-05 15:10 | disposition home or self-care (01) ==
LOC: JRADIR 05:39 → J7W 11:53 → JRADIR 15:10
PROVIDERS: ATTEND Internal Medicine Hematology & Oncology
DX: Z51.11 Encounter for antineoplastic chemotherapy (principal); C34.11 Malignant neoplasm of upper lobe, right bronchus or lung
CPT/HCPCS: 36571; 96361; 96367; 96375; 96413; C1751; 36415; 36569; 77001-TC-FY; 80053; 83735; 85025; J2405

== ENCOUNTER 2019-06-12 07:15 | Day surgery (SDC) | payer BC, OTHER ==
[2019-06-12] MEDS ORDERED: DEXAMETHASONE SODIUM PHOSPHATE 10 MG, ONDANSETRON INJECTION 8 MG in SODIUM CHLORIDE 100 ML IVPB ONE (09:30)
[2019-06-12] MEDS ORDERED: GEMCITABINE HCL 1,672 MG in SODIUM CHLORIDE 250 ML IV ONE (10:00)
[2019-06-12 10:10] LABS: BASO % 0.7 % (0-2.0); EOS % 2.4 % (0-4.5); HEMATOCRIT 33.5 % (35.4-49); HEMOGLOBIN 10.9 GM/dL (11.7-16.9); LYMPH % 27.1 % (8-40); MCH 31.6 pg (25.7-33.7); MCHC 32.7 g/dl (32.0-35.9); MEAN CELL VOLUME 96.7 fl (80-96); MEAN PLT VOLUME 7.7 fl (7.5-11.1); MONO % 11.8 % (3.8-10.2); PLATELET COUNT 218 K/MM3 (134-434); RBC 3.46 M/mm3 (4.00-5.60); RDW 19.2 % (11.9-15.9); WHITE BLOOD COUNT 2.5 K/mm3 (4.0-10.0)
[2019-06-12] MEDS ORDERED: SODIUM CHLORIDE 500 ML IV ONE (10:30)
[2019-06-12 10:40] LABS: ALBUMIN 3.6 g/dl (3.4-5.0); BILIRUBIN,TOTAL 0.2 mg/dL (0.2-1); BLOOD UREA NITROGEN 7.6 mg/dL (7-18); CALCIUM 8.7 mg/dL (8.5-10.1); CREATININE 0.7 mg/dL (0.55-1.3); MAGNESIUM 2.1 mg/dL (1.8-2.4); POTASSIUM 4.4 mmol/L (3.5-5.1)
[2019-06-12 13:16] LABS: ANISOCYTOSIS 1+; MACROCYTOSIS 1+; PLATELET ESTIMATE NORMAL
[2019-06-12 17:17] VITALS: TEMP 97.7
[2019-06-12 17:41] VITALS: BP 100/66; PULSE 92
== END 2019-06-12 15:30 | disposition home or self-care (01) ==
LOC: JRADIR 07:15 → J7W 11:33 → JRADIR 15:30
PROVIDERS: ATTEND Internal Medicine Hematology & Oncology
PROC: 02HV33Z Insertion of Infusion Device into Superior Vena Cava, Percutaneous Approach (ICD-10-PCS; principal; 2019-06-12)
PROC: B518ZZA Fluoroscopy of Superior Vena Cava, Guidance (ICD-10-PCS; 2019-06-12)
DX: C34.11 Malignant neoplasm of upper lobe, right bronchus or lung (principal)
CPT/HCPCS: 36415; 36569; 77001-TC-FY; 80053; 83735; 85025; C1751; J2405

== ENCOUNTER 2019-06-13 07:15 | Day surgery (SDC) | payer BC, OTHER ==
[2019-06-13] MEDS ORDERED: PEGFILGRASTIM-CBQV (UDENYCA) 6 MG/0.6 ML SYRINGE SQ ONE (10:00)
[2019-06-13 15:30] VITALS: BP 104/68; PULSE 92; TEMP 97.3
== END 2019-06-13 15:15 | disposition home or self-care (01) ==
LOC: JONCCHEMO 07:15
PROVIDERS: ATTEND Internal Medicine Hematology & Oncology
PROC: 3E013GC Introduction of Other Therapeutic Substance into Subcutaneous Tissue, Percutaneous Approach (ICD-10-PCS; principal; 2019-06-13)
DX: C34.11 Malignant neoplasm of upper lobe, right bronchus or lung (principal); Z76.89 Persons encountering health services in other specified circumstances
CPT/HCPCS: 96372; Q5111

== ENCOUNTER 2019-06-26 07:14 | Day surgery (SDC) | payer BC, OTHER ==
[2019-06-26 09:53] LABS: BASO % 0.4 % (0-2.0); HEMATOCRIT 32.3 % (35.4-49); HEMOGLOBIN 10.2 GM/dL (11.7-16.9); LYMPH % 14.1 % (8-40); MCH 31.3 pg (25.7-33.7); MCHC 31.7 g/dl (32.0-35.9); MEAN CELL VOLUME 98.8 fl (80-96); MEAN PLT VOLUME 8.3 fl (7.5-11.1); NEUT % 69.5 % (42.8-82.8); PLATELET COUNT 351 K/MM3 (134-434); RBC 3.27 M/mm3 (4.00-5.60); RDW 20.4 % (11.9-15.9); WHITE BLOOD COUNT 9.2 K/mm3 (4.0-10.0)
[2019-06-26] MEDS ORDERED: DEXAMETHASONE SODIUM PHOSPHATE 10 MG, ONDANSETRON INJECTION 8 MG in SODIUM CHLORIDE 100 ML IVPB ONE (10:00)
[2019-06-26 10:25] LABS: ALBUMIN 3.6 g/dl (3.4-5.0); BILIRUBIN,TOTAL 0.2 mg/dL (0.2-1); BLOOD UREA NITROGEN 8.2 mg/dL (7-18); CALCIUM 9.3 mg/dL (8.5-10.1); CREATININE 0.9 mg/dL (0.55-1.3); MAGNESIUM 2.3 mg/dL (1.8-2.4); POTASSIUM 4.3 mmol/L (3.5-5.1); TOT PROT 7.4 g/dl (6.4-8.2)
[2019-06-26] MEDS ORDERED: GEMCITABINE HCL 1,672 MG in SODIUM CHLORIDE 250 ML IV ONE (10:30)
[2019-06-26 11:00] LABS: ANISOCYTOSIS 2+; MACROCYTOSIS 0; PLATELET ESTIMATE NORMAL
[2019-06-26] MEDS ORDERED: SODIUM CHLORIDE 500 ML IV ONE (11:00)
[2019-06-26] MEDS ORDERED: oxyCODONE HCL 5 MG TABLET PO ONE (12:30)
[2019-06-26] MEDS ORDERED: ALBUTEROL SO4 0.083% IH SOL 2.5 MG/3 ML VIAL.NEB. NEB ONE (13:15)
[2019-06-26] MEDS ORDERED: DEXAMETHASONE SOD PHOSPHATE 10 MG/1 ML VIAL IVPB ONE (13:15)
[2019-06-26] MEDS ORDERED: PIPERACILLIN/TAZOB 3.375 GM 3.375 GM in DEXTROSE 5%-WATER - 50 ML IVPB ONE (13:15)
[2019-06-26] MEDS ORDERED: PIPERACILLIN/TAZOBACTAM 3.375 GM VIAL IVPB ONE (13:17)
[2019-06-26] MEDS ORDERED: DEXTROSE 5%-WATER - 50 ML IVPB ONE (13:17)
[2019-06-26] MEDS ORDERED: MAGNESIUM SULFATE IVPB SCH (14:30)
[2019-06-26] MEDS ORDERED: DEXTROSE 5% IVPB SCH (14:30)
[2019-06-26] MEDS ORDERED: POTASSIUM CHLORIDE IVPB SCH (14:30)
[2019-06-26] MEDS ORDERED: NORMAL SALINE IVPB SCH (14:30)
[2019-06-26 19:09] VITALS: BP 114/67; PULSE 106; TEMP 99.8
== END 2019-06-26 17:00 | disposition home or self-care (01) ==
LOC: JRADIR 07:14 → J7W 12:16 → JRADIR 15:35
PROVIDERS: ATTEND Internal Medicine Hematology & Oncology
PROC: 02HV33Z Insertion of Infusion Device into Superior Vena Cava, Percutaneous Approach (ICD-10-PCS; principal; 2019-06-26)
PROC: B518ZZA Fluoroscopy of Superior Vena Cava, Guidance (ICD-10-PCS; 2019-06-26)
DX: C34.90 Malignant neoplasm of unspecified part of unspecified bronchus or lung (principal)
CPT/HCPCS: 36415; 36569; 71046-TC-FY; 77001-TC-FY; 80053; 83735; 85025; 94640; C1751; J1100

== ENCOUNTER 2019-07-10 06:31 | Day surgery (SDC) | payer BC, OTHER ==
[2019-07-10] MEDS ORDERED: DEXAMETHASONE SODIUM PHOSPHATE 10 MG, ONDANSETRON INJECTION 8 MG in SODIUM CHLORIDE 100 ML IVPB ONE (10:00)
[2019-07-10 10:07] LABS: ALBUMIN 3.5 g/dl (3.4-5.0); BILIRUBIN,TOTAL 0.6 mg/dL (0.2-1); BLOOD UREA NITROGEN 11.9 mg/dL (7-18); CALCIUM 8.3 mg/dL (8.5-10.1); MAGNESIUM 2.5 mg/dL (1.8-2.4); POTASSIUM 4.5 mmol/L (3.5-5.1); TOT PROT 6.8 g/dl (6.4-8.2)
[2019-07-10] MEDS ORDERED: GEMCITABINE HCL 1,672 MG in SODIUM CHLORIDE 250 ML IV ONE (10:30)
[2019-07-10 10:53] LABS: BASO % 0.2 % (0-2.0); EOS % 1.6 % (0-4.5); HEMATOCRIT 33.4 % (35.4-49); HEMOGLOBIN 10.7 GM/dL (11.7-16.9); LYMPH % 9.7 % (8-40); MCH 31.6 pg (25.7-33.7); MEAN CELL VOLUME 98.8 fl (80-96); MEAN PLT VOLUME 8.7 fl (7.5-11.1); MONO % 19.2 % (3.8-10.2); NEUT % 69.3 % (42.8-82.8); PLATELET COUNT 99 K/MM3 (134-434); RBC 3.38 M/mm3 (4.00-5.60); RDW 20.9 % (11.9-15.9); WHITE BLOOD COUNT 8.4 K/mm3 (4.0-10.0)
[2019-07-10] MEDS ORDERED: SODIUM CHLORIDE 500 ML IV ONE (11:00)
[2019-07-10 11:26] LABS: ANISOCYTOSIS 1+; MACROCYTOSIS 0; PLATELET ESTIMATE DECREASED
[2019-07-10 15:51] VITALS: BP 97/58; PULSE 99; TEMP 98.2
== END 2019-07-10 14:00 | disposition home or self-care (01) ==
LOC: JRADIR 06:31 → J7W 11:02 → JRADIR 14:00
PROVIDERS: ATTEND Internal Medicine Hematology & Oncology
PROC: 02HV33Z Insertion of Infusion Device into Superior Vena Cava, Percutaneous Approach (ICD-10-PCS; principal; 2019-07-10)
PROC: B518ZZA Fluoroscopy of Superior Vena Cava, Guidance (ICD-10-PCS; 2019-07-10)
DX: C34.90 Malignant neoplasm of unspecified part of unspecified bronchus or lung (principal)
CPT/HCPCS: 36415; 36569; 36573; 77001-TC-FY; 80053; 83735; 85025; C1751

== ENCOUNTER 2019-07-11 06:03 | Day surgery (SDC) | payer BC, OTHER ==
[2019-07-11] MEDS ORDERED: PEGFILGRASTIM-CBQV (UDENYCA) 6 MG/0.6 ML SYRINGE SQ ONE (10:00)
[2019-07-11 17:41] VITALS: BP 101/66; PULSE 91; TEMP 97.5
== END 2019-07-11 13:05 | disposition home or self-care (01) ==
LOC: JONCCHEMO 06:03 → J7W 12:51 → JONCCHEMO 13:05
PROVIDERS: ATTEND Internal Medicine Hematology & Oncology
PROC: 3E013GC Introduction of Other Therapeutic Substance into Subcutaneous Tissue, Percutaneous Approach (ICD-10-PCS; principal; 2019-07-11)
DX: C34.90 Malignant neoplasm of unspecified part of unspecified bronchus or lung (principal); Z76.89 Persons encountering health services in other specified circumstances
CPT/HCPCS: 96372; Q5111

== ENCOUNTER 2019-07-22 20:57 | Inpatient (IN) | payer BC, OTHER ==
[2019-07-22] MEDS ORDERED: NALOXONE HCL 0.4 MG/ML VIAL ONE ×3 (21:05→21:18)
[2019-07-22] MEDS ORDERED: NALOXONE HCL 0.4 MG/ML VIAL IVPUSH ONE (21:13)
--- NOTE | 2019-07-22 21:19 | PDOC ---
History of Present Illness - General Chief Complaint: Overdose Stated Complaint: ACCIDENTAL OVERDOSE Time Seen by Provider: 07/22/19 21:11 History Source: Patient, EMS, Spouse Exam Limitations: No Limitations, Clinical Condition - History of Present Illness Initial Comments: Leoncio Reina is a 64 yo M w a hx of HTN, HLD, Lung CA on chemo (squamous cell carcinoma (s/p carbo/taxol therapy)), COPD on 3L home O2, LISA, PE on Lovenox, atrial fibrillation, SVC syndrome s/p stent placement who presents to the [facility] er stuporous with an O2 saturation of 45% with a good wave form after he overdosed on opiate pain meds - Morphine and oxycontin - at home which he takes for pain control for his lung cancer. The patient was found unresponsive in bed by his at 8:30 pm, EMS was called, they gave the patient close to 10 mg of naloxone in order for him to wake up. The patient woke up and was satting at 90 % on route with heavy sternal rubs and non-stop agitation. When he arrived in the ER it is likely that the naloxone he received from EMS wore off and the patient was stuporous and barely responsive to sternal rub. Patient woke up after 2 mg of naloxone in ED, placed on monitor and 100% non- rebreather facemask, naloxone drip started and he is now satting at 100% and alert. Patient took a significant amount of oral morphine and oxycontin at home, but he cannot recall exactly how much he took. He states he is supposed to take 40 mg oral morphine every 4 hours and he has also been taking more oxycontin than he is supposed to be taking. Denies other drug exposures. Patient was found lying down in bed and states he did not experience any trauma prior to accidentally overdosing. Onc: Dr. Hathaway PCP: Anika Veliz Pulm: Adis PSH: Cholecystectomy, Hernia Repair Social Hx: Former heavy smoker, quit in 2018 Allergies: NKA, NKDA Past History - Past Medical History Allergies/Adverse Reactions: Allergies Allergy/AdvReac Type Severity Reaction Status Date / Time No Known Allergies Allergy Verified 07/22/19 21:09 Home Medications: Ambulatory Orders Albuterol Sulfate [Proventil HFA Inhaler -] 1 - 2 inh PO QID 02/22/18 Sotalol HCl [Betapace -] 80 mg PO BID tablet 04/29/18 Tiotropium [place] [Spiriva Respimat] 2 puff IH DAILY inhaler 04/29/18 Diltiazem Cd [Cardizem Cd -] 120 mg PO DAILY #30 cap.cd.24h 05/05/18 Oxycodone HCl 30 mg PO Q6H PRN 08/09/18 Ondansetron HCl [Zofran] 8 mg PO TID 11/24/18 Morphine *Sr* [MS Contin -] 30 mg PO Q12H 11/25/18 Enoxaparin [Lovenox -] 100 mg SQ BID 03/28/19 Ergocalciferol (Vitamin D2) [Vitamin D2] 50,000 unit PO WEEKLY 03/28/19 Gabapentin 300 mg PO BID 03/28/19 Pantoprazole Sodium [Protonix] 40 mg PO DAILY 03/28/19 Pravastatin Sodium [Pravachol] 40 mg PO DAILY 03/28/19 Tiotropium Br/Olodaterol HCl [Stiolto Respimat Inhal [place]] 1 puff BID 03/28/19 Zolpidem Tartrate [Ambien] 10 mg PO HS 03/28/19 Lactobacillus Acidophilus [Bacid -] 1 tab PO DAILY #14 tab 04/06/19 Anemia: No Asthma: No Cancer: Yes (LUNG) Cardiac Disorders: (Yes; PAROXYSMAL AFIB, SVC SYNDROME, S/P THROMBOLYSIS AND STENTING) COPD: Yes HTN: Yes - Surgical History Abdominal Surgery: Yes (hernia) Cholecystectomy: Yes - Immunization History Immunization Up to Date: No - Psycho Social/Smoking Cessation Hx Smoking History: Unknown if ever smoked Have you smoked in the past 12 months: No Number of Cigarettes Smoked Daily: 5 If you are a former smoker, when did you quit?: 2018 Cigars Per Day: 10 'Breaking Loose' booklet given: 04/07/18 Hx Alcohol Use: No Drug/Substance Use Hx: No Substance Use Type: Marijuana Hx Substance Use Treatment: No Review of Systems - Review of Systems Able to Perform ROS?: Yes Comments:: CONSTITUTIONAL: Absent: fever, no chills, no fatigue EYES: Absent: visual changes ENT: Absent: ear pain, no sore throat CARDIOVASCULAR: Absent: chest pain, no palpitations RESPIRATORY: Present: SOB Absent: cough GI: Absent: abdominal pain, no nausea, no vomiting, no constipation, no diarrhea GENITOURINARY: Absent: dysuria, no frequency, no hematuria MUSKULOSKELETAL: Absent: back pain, no arthralgia, no myalgia SKIN: Absent: rash NEURO: Absent: headache *Physical Exam - Vital Signs Last Vital Signs Temp Pulse Resp BP Pulse Ox 132 H 30 H 140/130 H 46 L 07/22/19 20:59 07/22/19 20:59 07/22/19 20:59 07/22/19 20:59 - Physical Exam GENERAL: Stuporous, unresponsive. HEENT: Pinpoint pupils. Normocephalic, atraumatic. PERRL, EOM intact. CARDIOVASCULAR: Tachycardic rate. Normal S1, S2. Regular rhythm. PULMONARY: No evidence of respiratory distress. Lungs clear to auscultation bilaterally. No wheezing, rales or rhonchi. ABDOMEN: Soft, non-distended, non-tender. EXTREMITIES: Normal ROM in all four extremities. No gross deformities. SKIN: Warm, dry. No rash NEUROLOGICAL: No focal neurological deficits. Vital Signs - Vital Signs #1 Time: 21:30 Blood Pressure: 116/78 BP Location: Right Arm Blood Pressure Position: Sitting Pulse Rate: 128 Respiratory Rate: 28 Temperature: 98.7 F Temperature Source: Oral O2 Sat by Pulse Oximetry (%): 100 Oxygen Delivery Method: Non-Rebreather Mask Oxygen Flow Rate: 15 ED Treatment Course - LABORATORY CBC & Chemistry Diagram: 07/22/19 21:50 07/22/19 21:50 - Medications Given in the ED: ED Medications Discontinued Medications Generic Name Dose Route Start Last Admin Trade Name Roryq PRN Reason Stop Dose Admin Naloxone HCl 1.2 mg 07/22/19 21:13 07/22/19 21:15 Narcan - IVPUSH 07/22/19 21:14 1.2 mg ONCE ONE Administration Medical Decision Making - Medical Decision Making Leoncio Reina is a 64 yo M w a hx of HTN, HLD, Lung CA on chemo (squamous cell carcinoma (s/p carbo/taxol therapy)), COPD on 3L home O2, LISA, PE on Lovenox, atrial fibrillation, SVC syndrome s/p stent placement who presents to the [facility] er originally stuporous and unresponsive, now A&O x4 after naloxone boluses, currently on narcan drip. Vital Signs Temp Pulse Resp BP Pulse Ox 98.7 F 128 H 28 H 116/78 100 07/22/19 21:31 07/22/19 21:31 07/22/19 21:31 07/22/19 21:31 07/22/19 21:31 MDM: Patient presents after unintentional opiod overdose requiring naloxone drip Plan: Labs, urine, EKG, Iv hydration, naloxone drip, re-assess. Labs: Severely elevated liver enzymes, MIRIAM, leukocytosis, acidosis Re-assessment: Attempted to wean patient off naloxone drip and he desatted into the 80's. Patient is currently satting in the low 90's with drip on 10. Disposition: Admit patient to ICU for OD requiring drip, hepatitis, MIRIAM Discharge - Discharge Information Problems reviewed: Yes Clinical Impression/Diagnosis: Elevated liver enzymes, Acute kidney injury Opioid overdose Qualifiers: Encounter type: initial encounter Injury intent: accidental or unintentional Qualified Code(s): T40.2X1A - Poisoning by other opioids, accidental ( unintentional), initial encounter Condition: Guarded - Admission Yes - Follow up/Referral - Patient Discharge Instructions - Post Discharge Activity
[2019-07-22] MEDS: NALOXONE HCL 2 MG in DEXTROSE 5%-WATER - 495 ML IV SCH (21:40)
[2019-07-22] MEDS ORDERED: SODIUM CHLORIDE 0.9% 500 ML INFUS.BAG IV ONE (21:54)
[2019-07-22 22:04] LABS: BASO % 0.2 % (0-2.0); EOS % 0.1 % (0-4.5); HEMATOCRIT 32.9 % (35.4-49); HEMOGLOBIN 10.4 GM/dL (11.7-16.9); MCHC 31.6 g/dl (32.0-35.9); MEAN PLT VOLUME 8.5 fl (7.5-11.1); MONO % 7.2 % (3.8-10.2); NEUT % 85.5 % (42.8-82.8); PLATELET COUNT 194 K/MM3 (134-434); RBC 3.35 M/mm3 (4.00-5.60); RDW 21.2 % (11.9-15.9); WHITE BLOOD COUNT 23.6 K/mm3 (4.0-10.0)
[2019-07-22 22:06] LABS: VENOUS PC02 49.8 mmHg (38-52)
[2019-07-22 22:07] LABS: VENOUS PO2 < 49 mmHg (28-48)
--- NOTE | 2019-07-22 22:07 | PDOC ---
Attending Attestation - Resident Resident Name: Willem Marquez - ED Attending Attestation I have performed the following: I have examined & evaluated the patient, The case was reviewed & discussed with the resident, I agree w/resident's findings & plan - HPI HPI: 07/22/19 22:04 Pt comes to the ER with tachycardia and decreased mental status after taking too much of his narcotic pain meds that he is on for his termnal cancer. - Physicial Exam PE: 07/22/19 23:24 Pt has decreased MS Afebrile Tachycardic and hypertensive Abd soft NT ND Coarse BS bilaterally 07/22/19 23:29 Pt moved bowels again; nurses changed him, and pt keeps stooling himself/ HR improving 07/23/19 01:21 pt received 1L and he has HR improving Moved bowels again - Medical Decision Making 07/22/19 23:22 AST/ALT in the thousands; 07/22/19 23:23 Pt is is dehydrated. Cr is 2.5x higher than it usually is Pt's WBC is 23 Heart Score/ECG Review - ECG Intrepretation Rhythm: Regular Rhythm - Merlin Merlin: Normal - P and AL Delta Wave(s) Present: No WPW: No - QRS Poor R Wave Progression: No Q Wave Present: No - ST and T Early Repolarization: No Non Specific ST-T Wave changes: No Flattened T Waves: No Prolonged Q-T Interval: No - ECG Impressions Normal ECG: No Non-specific ST Elevation: No Ischemic Changes: No Tachycardia: Sinus
[2019-07-22] MEDS ORDERED: LACTATED RINGERS SOLUTION 1000 ML INFUS.BAG IV ONE (22:42)
[2019-07-22 22:51] LABS: INR 1.68 (0.83-1.09); PROTHROMBIN TIME (PATIENT) 19.9 SEC (9.7-13.0)
[2019-07-22 22:53] LABS: ACTIVATED PTT 45.6 SECONDS (25.2-36.5)
[2019-07-22 22:58] LABS: ALBUMIN 3.8 g/dl (3.4-5.0); BILIRUBIN,TOTAL 0.8 mg/dL (0.2-1); BLOOD UREA NITROGEN 20.7 mg/dL (7-18); CALCIUM 8.4 mg/dL (8.5-10.1); CREATININE 2.6 mg/dL (0.55-1.3); POTASSIUM 5.2 mmol/L (3.5-5.1); TOT PROT 7.6 g/dl (6.4-8.2)
[2019-07-22] MEDS ORDERED: LACTULOSE 20 GM/30 ML UDC (FOR ORAL USE ONLY) PO ONE (23:30)
[2019-07-22] MEDS ORDERED: FOLIC ACID INJECTION - 1 MG, THIAMINE HCL 100 MG, MULTIVIT INJECTION ADULT 10 ML in SOD... IVPB ONE (23:31)
[2019-07-22] MEDS ORDERED: LACTULOSE 20 GM/30 ML UDC (FOR ORAL USE ONLY) ONE (23:39)
--- NOTE | 2019-07-22 23:40 | HP ---
Admitting History and Physical - Primary Care Physician PCP: Anika Veliz - Admission Chief Complaint: Unresponsive History of Present Illness: This a 64 y/o man with a PMHx of HTN, HLD, Lung CA on chemo (squamous cell carcinoma (s/p carbo/taxol therapy)), COPD (on 3L home O2), LISA, PE (on Lovenox) , Atrial Fibrillation, SVC syndrome s/p stent placement x2. Who presents to the ED for unresponsiveness. Patient was found by his spouse unresponsive she called EMS. Per ED records- The patient was found unresponsive in bed by his at 8:30 pm, EMS was called, they gave the patient close to 10 mg of naloxone in order for him to wake up. The patient woke up and was saturating at 90% en route with heavy sternal rubs and non-stop agitation. When he arrived in the ER it is likely that the naloxone he received from EMS wore off and the patient was stuporous and barely responsive to sternal rub. Patient woke up after 2 mg of naloxone in ED, placed on monitor and 100% non- rebreather facemask, naloxone drip started and he is now saturating at 100% and alert. Patient took a significant amount of oral morphine and oxycontin at home, but he cannot recall exactly how much he took. He states he is supposed to take 40 mg oral morphine every 4 hours and he has also been taking more oxycontin than he is supposed to be taking due to pain. Denies other drug exposures. History Source: Family Member, Medical Record Limitations to Obtaining History: Clinical Condition - Past Medical History Cardiovascular: Yes: AFIB, HTN, Other (smoker with lung mass) Pulmonary: Yes: COPD - Past Surgical History Past Surgical History: Yes: Cholecystectomy, Hernia Repair - Smoking History Smoking history: Unknown if ever smoked Have you smoked in the past 12 months: No Aproximately how many cigarettes per day: 5 If you are a former smoker, when did you quit?: 2018 - Alcohol/Substance Use Hx Alcohol Use: No - Social History ADL: Independent History of Recent Travel: No Home Medications - Allergies Allergies/Adverse Reactions: Allergies Allergy/AdvReac Type Severity Reaction Status Date / Time No Known Allergies Allergy Verified 07/22/19 21:09 - Home Medications Home Medications: Ambulatory Orders Albuterol Sulfate [Proventil HFA Inhaler -] 1 - 2 inh PO QID 02/22/18 Sotalol HCl [Betapace -] 80 mg PO BID tablet 04/29/18 Tiotropium [place] [Spiriva Respimat] 2 puff IH DAILY inhaler 04/29/18 Diltiazem Cd [Cardizem Cd -] 120 mg PO DAILY #30 cap.cd.24h 05/05/18 Oxycodone HCl 30 mg PO Q6H PRN 08/09/18 Ondansetron HCl [Zofran] 8 mg PO TID 11/24/18 Morphine *Sr* [MS Contin -] 30 mg PO Q12H 11/25/18 Enoxaparin [Lovenox -] 100 mg SQ BID 03/28/19 Ergocalciferol (Vitamin D2) [Vitamin D2] 50,000 unit PO WEEKLY 03/28/19 Gabapentin 300 mg PO BID 03/28/19 Pantoprazole Sodium [Protonix] 40 mg PO DAILY 03/28/19 Pravastatin Sodium [Pravachol] 40 mg PO DAILY 03/28/19 Tiotropium Br/Olodaterol HCl [Stiolto Respimat Inhal [place]] 1 puff BID 03/28/19 Zolpidem Tartrate [Ambien] 10 mg PO HS 03/28/19 Lactobacillus Acidophilus [Bacid -] 1 tab PO DAILY #14 tab 04/06/19 Family Medical History Family Hx Cancer: Brother (Lung- ) Family Hx Cardiac Disorders: Brother ([place]- ) Family Hx Diabetes: Mother Review of Systems Unable to obtain ROS, reason: Clinical Condition Physical Examination Vital Signs: Vital Signs Temperature 98.7 F 07/22/19 23:28 Pulse Rate 128 H 07/22/19 23:28 Respiratory Rate 28 H 07/22/19 23:28 Blood Pressure 116/78 07/22/19 23:28 O2 Sat by Pulse Oximetry (%) 100 07/22/19 23:28 Constitutional: Yes: Other (lethargic) Eyes: Yes: Conjunctiva Clear, PERRL HENT: Yes: WNL, Atraumatic, Normocephalic Neck: Yes: WNL, Supple, Trachea Midline Cardiovascular: Yes: Tachycardia, S1, S2 Respiratory: Yes: Diminished (R-lobe), On Nasal O2 Gastrointestinal: Yes: WNL, Normal Bowel Sounds, Soft ...Rectal Exam: Yes: Deferred Renal/: Yes: Incontinence Breast(s): Yes: WNL Musculoskeletal: Yes: WNL Extremities: Yes: WNL Edema: No Peripheral Pulses WNL: Yes Neurological: Yes: Lethargy (with times of lucidity) ...Motor Strength: WNL Psychiatric: Yes: Alert (name- verbal and deep tactile stimulus) Labs: CBC, BMP 07/22/19 21:50 07/22/19 21:50 Imaging - Results Chest X-ray: Image Reviewed EKG: Image Reviewed Problem List - Problems (1) Opioid overdose Assessment/Plan: Per patient it was unintentional Continue Narcan Drip Cardiac monitoring Neurochecks Appreciate Critical Care/Pulm consult Aspiration Precautions Monitor CBC, BMP Maintain MAP >65 Code(s): T40.2X1A - POISONING BY OTH OPIOIDS, ACCIDENTAL (UNINTENTIONAL), INIT Qualifiers: Qualified Code(s): T40.2X1A - Poisoning by other opioids, accidental ( unintentional), initial encounter (2) Elevated liver enzymes Assessment/Plan: Hepatic Panel, IGG Immunoglobulin D+E in am RUQ US Appreciate GI consult Avoid Hepatotoxic drugs Code(s): R74.8 - ABNORMAL LEVELS OF OTHER SERUM ENZYMES (3) Afib Assessment/Plan: [id number] Continue home meds EKG-reviewed Appreciate Cardiology consult Code(s): I48.91 - UNSPECIFIED ATRIAL FIBRILLATION (4) Diastolic dysfunction with acute on chronic heart failure Assessment/Plan: Continue to monitor and treat with interventions accordingly Appreciate Cardiology consult EKG reviewed BNP Code(s): I50.33 - ACUTE ON CHRONIC DIASTOLIC (CONGESTIVE) HEART FAILURE (5) COPD (chronic obstructive pulmonary disease) Assessment/Plan: Chest Xray image reviewed Code(s): J44.9 - CHRONIC OBSTRUCTIVE PULMONARY DISEASE, UNSPECIFIED Qualifiers: Qualified Code(s): J44.9 - Chronic obstructive pulmonary disease, unspecified (6) Lung cancer Assessment/Plan: s/p Chemo, RT Therapy Appreciate Oncology consult Code(s): C34.90 - MALIGNANT NEOPLASM OF UNSP PART OF UNSP BRONCHUS OR LUNG Qualifiers: Qualified Code(s): C34.11 - Malignant neoplasm of upper lobe, right bronchus or lung (7) HTN (hypertension) Assessment/Plan: sub optimal Monitor BP Continue home meds, when pt more arousable Consider IV if available Code(s): I10 - ESSENTIAL (PRIMARY) HYPERTENSION Qualifiers: Qualified Code(s): I10 - Essential (primary) hypertension Assessment/Plan This a 64 y/o man with a PMHx of HTN, HLD, Lung CA on chemo (squamous cell carcinoma (s/p carbo/taxol therapy)), COPD (on 3L home O2), LISA, PE (on Lovenox) , Atrial Fibrillation, SVC syndrome s/p stent placement x2. Admitted to ICU for Opioid Overdose, Acute Metabolic Encephalopathy, Tachycardia for further evaluation of their emergent condition. Plan: See Problem List FEN NS@42ml/hr Replete lytes prn NPO DVT ppx OOB SCDs Heparin SQ Code Status- Full Code, HCP- Sydney Reina (spouse) Dispo: Requires Inpatient Care Visit type - Emergency Visit Emergency Visit: Yes ED Registration Date: 07/22/19 Care time: The patient presented to the Emergency Department on the above date and was hospitalized for further evaluation of their emergent condition. - New Patient This patient is new to me today: Yes Date on this admission: 07/22/19 - Critical Care Critical Care patient: Yes Total Critical Care Time (in minutes): 34 Critical Care Statement: The care of this patient involved high complexity decision making to prevent further life threatening deterioration of the patient 's condition and/or to evaluate & treat vital organ system(s) failure or risk of failure.
[2019-07-22] MEDS: LACTATED RINGERS SOLUTION 1,000 ML/1,000 ML INFUS.BAG IV SCH (23:41)
[2019-07-23 01:37] LABS: ARTERIAL BLD GAS O2 SATURATION 92.3 % (95-98); ARTERIAL BLOOD GAS PO2 76.6 mmHg (80-100); ARTERIAL BLOOD GAS pH 7.34 (7.35-7.45)
[2019-07-23 01:38] LABS: ALLENS TEST POSITIVE
[2019-07-23 03:46] LABS: ANISOCYTOSIS 2+; MACROCYTOSIS 0; PLATELET ESTIMATE NORMAL
--- NOTE | 2019-07-23 05:09 | CONSULT ---
Consultation: REQUESTING PROVIDER: CONSULT REQUEST: We have been asked to medically evaluate this patient for (specify). HISTORY OF PRESENT ILLNESS: 64 y/o M with PMHx of Squamous cell Lung Ca (on Carbo/Taxol chemotherapy, patient of Dr. Hathaway and Dr. Arceo), COPD (on 3L, Stopped smoking 1 year ago), LISA (Non on Cpap), PE (on Lovenox), AFib, HTN, HLD, SVC syndrome s/p stent placement was BIBEMS after having a desaturation episode. Patient was found to be stupourous and eventually unresponsive earlier this evening and his was concerned he may have overdosed on his home pain regimen. This is the first time he has experienced this prompting his to alert EMS. Patient was given 10mg of Naloxone in route and an additional 2mg in [facility]. Upon initial presentation, patient remained lethargic but was arrousable to painful stimuli. In the ED, patient was placed on 100% NRB and Naloxone drip. Patient says that one week ago, his oxycodone was increased to 180mg QID from 120mg TID. Additionally he uses 30mg TID of PO Morphine. He mentions his pain is primarily over his bilateral chest, 8/10, constant ache that improves but returns on his current pain regimen. His only other complaints currently are nausea, and having had multiple loose BMs while home for the past few days. Denies any associated trauma, sick contacts. REVIEW OF SYSTEMS: As per HPI PHYSICAL EXAMINATION Vital Signs Temperature 98.3 F 07/23/19 02:00 Pulse Rate 115 H 07/23/19 04:00 Respiratory Rate 24 H 07/23/19 04:00 Blood Pressure 102/75 07/23/19 04:00 O2 Sat by Pulse Oximetry (%) 95 07/23/19 02:00 GENERAL: A&Ox3, NAD, Arousable HEAD: NCAT EYES: PERRL, EOMI EARS, NOSE, THROAT: Moist mucous membranes. NECK: Supple, No JVD LUNGS: Diminished breath sounds at the bases R>L, No wheezes, no crackles. HEART: Regular rate and rhythm, normal S1 and S2 without murmur ABDOMEN: Soft, nontender, not distended, + bowel sounds, no guarding EXTREMITIES: No peripheral edema. NEUROLOGICAL: Cranial nerves II-XII intact. SKIN: Warm, dry Laboratory Last Values WBC 23.6 K/mm3 (4.0-10.0) H 07/22/19 21:50 RBC 3.35 M/mm3 (4.00-5.60) L 07/22/19 21:50 Hgb 10.4 GM/dL (11.7-16.9) L 07/22/19 21:50 Hct 32.9 % (35.4-49) L 07/22/19 21:50 MCV 98.0 fl (80-96) H 07/22/19 21:50 MCH 31.0 pg (25.7-33.7) 07/22/19 21:50 MCHC 31.6 g/dl (32.0-35.9) L 07/22/19 21:50 RDW 21.2 % (11.9-15.9) H 07/22/19 21:50 Plt Count 194 K/MM3 (134-434) D 07/22/19 21:50 MPV 8.5 fl (7.5-11.1) 07/22/19 21:50 Absolute Neuts (auto) 20.2 K/mm3 (1.5-8.0) H 07/22/19 21:50 Neutrophils % 85.5 % (42.8-82.8) H D 07/22/19 21:50 Neutrophils % (Manual) 61.4 % (42.8-82.8) 07/22/19 21:50 Band Neutrophils % 22.8 % 07/22/19 21:50 Lymphocytes % 7.0 % (8-40) L D 07/22/19 21:50 Lymphocytes % (Manual) 3.0 % (8-40) L D 07/22/19 21:50 Monocytes % 7.2 % (3.8-10.2) 07/22/19 21:50 Monocytes % (Manual) 8 % (3.8-10.2) 07/22/19 21:50 Eosinophils % 0.1 % (0-4.5) D 07/22/19 21:50 Eosinophils % (Manual) 0.0 % (0-4.5) D 07/22/19 21:50 Basophils % 0.2 % (0-2.0) 07/22/19 21:50 Basophils % (Manual) 0.0 % (0-2.0) 07/22/19 21:50 Myelocytes % (Man) 5 % (0-2) H D 07/22/19 21:50 Promyelocytes % (Man) 0 % (0-2) 07/22/19 21:50 Blast Cells % (Manual) 0 % (0-0) 07/22/19 21:50 Nucleated RBC % 2 % (0-0) H 07/22/19 21:50 Metamyelocytes 0 % (0-2) 07/22/19 21:50 Platelet Estimate Normal 07/22/19 21:50 Polychromasia 2+ 07/22/19 21:50 Poikilocytosis 1+ 07/22/19 21:50 Anisocytosis 2+ 07/22/19 21:50 Microcytosis 2+ 07/22/19 21:50 Macrocytosis 0 07/22/19 21:50 PT with INR 19.90 SEC (9.7-13.0) H 07/22/19 21:50 INR 1.68 (0.83-1.09) H 07/22/19 21:50 PTT (Actin FS) 45.6 SECONDS (25.2-36.5) H 07/22/19 21:50 Anticoagulation Therapy No Result Required. 07/22/19 01:13 Puncture Site Left radial 07/23/19 01:13 ABG pH 7.34 (7.35-7.45) L 07/23/19 01:13 ABG pCO2 at Pt Temp No Result Required. 07/23/19 01:13 ABG pO2 at Pt Temp 76.6 mmHg (80-100) L 07/23/19 01:13 ABG HCO3 No Result Required. 07/23/19 01:13 ABG O2 Sat (Measured) 92.3 % (95-98) L 07/23/19 01:13 ABG O2 Content 15.4 % vol 07/23/19 01:13 ABG Base Excess No Result Required. 07/23/19 01:13 Sandro Test Positive 07/23/19 01:13 VBG pH 7.30 (7.31-7.41) L 07/22/19 21:50 POC VBG pCO2 49.8 mmHg (38-52) 07/22/19 21:50 POC VBG pO2 < 49 mmHg (28-48) H 07/22/19 21:50 VBG HCO3 23.5 mmol/L (23-29) 07/22/19 21:50 VBG O2 Sat (Wang) 21.3 % (70-80) L 07/22/19 21:50 VBG Base Excess -2.6 meq/l (-2-2) L 07/22/19 21:50 O2 Delivery Device Non rebreather 07/23/19 01:13 Oxygen Flow Rate Yes 07/23/19 01:13 Vent Mode No Result Required. 07/22/19 01:13 Vent Rate No Result Required. 07/22/19 01:13 Mechanical Rate No Result Required. 07/22/19 01:13 Pressure Support Vent No Result Required. 07/22/19 01:13 Sodium 139 mmol/L (136-145) 07/22/19 21:50 Potassium 5.2 mmol/L (3.5-5.1) H 07/22/19 21:50 Chloride 102 mmol/L (98-107) 07/22/19 21:50 Carbon Dioxide 23 mmol/L (21-32) 07/22/19 21:50 Anion Gap 13 MMOL/L (8-16) 07/22/19 21:50 BUN 20.7 mg/dL (7-18) H 07/22/19 21:50 Creatinine 2.6 mg/dL (0.55-1.3) H 07/22/19 21:50 Est GFR (CKD-EPI)AfAm 28.91 07/22/19 21:50 Est GFR (CKD-EPI)NonAf 24.94 07/22/19 21:50 Random Glucose 82 mg/dL (74-106) 07/22/19 21:50 Calcium 8.4 mg/dL (8.5-10.1) L 07/22/19 21:50 Total Bilirubin 0.8 mg/dL (0.2-1) 07/22/19 21:50 AST 1956 U/L (15-37) H 07/22/19 21:50 ALT 1202 U/L (13-61) H 07/22/19 21:50 Alkaline Phosphatase 181 U/L (45-117) H 07/22/19 21:50 Ammonia 37.80 umol/L (11-32) H 07/23/19 00:00 Total Protein 7.6 g/dl (6.4-8.2) 07/22/19 21:50 Albumin 3.8 g/dl (3.4-5.0) 07/22/19 21:50 Salicylates 2.1 mg/dL (2.8-20) L 07/22/19 21:13 Acetaminophen <2.0 07/22/19 21:13 Alcohol, Quantitative < 3 mg/dL (0.0-5.0) 07/22/19 21:50 Active Medications Chlorhexidine Gluconate (Hibiclens For Decolonization -) 1 applic TP HS [facility] Diltiazem HCl (Cardizem Cd -) 120 mg PO DAILY [facility] Heparin Sodium (Porcine) (Heparin -) 5,000 unit SQ TID ALONDRA Naloxone HCl 2 mg/ Dextrose 500 mls @ 25 mls/hr IV TITR ALONDRA; Protocol Last Titration: 07/23/19 02:15 Dose: 0.04 mg/hr, 10 mls/hr Lactated Ringer's (Lactated Ringers Solution) 1,000 ml in 1,000 mls @ 125 mls/hr IV ASDIR ALONDRA Last Admin: 07/22/19 23:41 Dose: 125 mls/hr Folic Acid 1 mg/ Thiamine HCl 100 mg/ Multivitamins/Minerals 10 ml/ Sodium Chloride 1,000 mls @ 125 mls/hr IVPB ONCE ONE Stop: 07/23/19 07:30 Last Admin: 07/23/19 00:39 Dose: 125 mls/hr Mupirocin (Bactroban Ointment (For Decolonization) -) 1 applic NS BID [facility] Stop: 07/28/19 09:59 Tiotropium [place]/Olodaterol (Stiolto Respimat Inhal [place]) 2 puff IH DAILY [facility] ASSESSMENT/PLAN: 64 y/o M with PMHx of Squamous cell Lung Ca (on Carbo/Taxol chemotherapy, patient of Dr. Hathaway and Dr. Arceo), COPD (on 3L, Stopped smoking 1 year ago), LISA (Non on Cpap), PE (on Lovenox), AFib, HTN, HLD, SVC syndrome s/p stent placement was BIBEMS after having a desaturation episode. #Neuro Desaturation Episode + AMS concerning for Opiate Overdose now s/p 12mg Naloxone on Naloxone Gtt -Unintentional occurence; Currently tachycardic however maintaining airway and Sats >90%, ABG reveals pH 7.34 -Continue Naloxone Gtt, Titrate down when able -Neurochecks, Fall precautions, Bedrest, Dysphagia precautions -Check UTox; Will consider Head CT if AMS reoccurs -Hemodynamics monitoring #Cardio Hx of AFib, HTN, HLD, SVC syndrome s/p stent placement -Continue home dose Cardizem Cd -Hold Sotalol as BP Labile; Resume Statin when tolerating PO -GAHDC2VMDP 3, Continue home dose Lovenox #Pulm Hx of Squamous cell Lung Ca (on Carbo/Taxol chemotherapy, patient of Dr. Hathaway and Dr. Arceo), COPD (on 3L, Stopped smoking 1 year ago), LISA (Non on Cpap), PE (on Lovenox) -Bronchodilators via Ventolin, Duoneb -Continue home dose Lovenox -Supplemental O2 to maintain SpO2 > 88-92% -Pulm and Oncology consulted #GI Transaminitis -Check RUQ US, Monitor Coags -Hold hepatotoxic meds -GI Consulted #Renal MIRIAM Hyperkalemia -EKG without any peaked T Waves -Trend K+, Check UA, Kidney/Renal US to r/o obstruction. -Continue IV hydration, Hold Nephrotoxic meds -Nephrology consulted, appreciate rec's #ID Leukocytosis -Possibly reactive in the setting of Opiate OD; Afebrile, nonseptic appearing -CXR looks unchanged from prior -UA, blood cx pending -Will monitor off ABx for now #Heme/Onc Macrocytic Anemia -Check Iron Studies, Folate, B12, FOBT (MARY Deferred), Monitor CBC #FEN -LR @ 125 -Replete Lytes PRN -NPO #PPx -DVT: Lovenox Dispo: We will continue to follow the patient. Thank you for this consultative opportunity. Visit type - Emergency Visit Emergency Visit: Yes ED Registration Date: 07/22/19 Care time: The patient presented to the Emergency Department on the above date and was hospitalized for further evaluation of their emergent condition. - New Patient This patient is new to me today: Yes Date on this admission: 07/28/19 - Critical Care Critical Care patient: Yes Total Critical Care Time (in minutes): 36 Critical Care Statement: The care of this patient involved high complexity decision making to prevent further life threatening deterioration of the patient's condition and/or to evaluate & treat vital organ system(s) failure or risk of failure. ATTENDING PHYSICIAN STATEMENT I saw and evaluated the patient. I reviewed the resident's note and discussed the case with the resident. I agree with the resident's findings and plan as documented. SUBJECTIVE: OBJECTIVE: ASSESSMENT AND PLAN:
[2019-07-23] MEDS ORDERED: HEPARIN NA (PORCINE) 5,000 UNITS/ML 1ML VIAL SQ SCH (06:00)
[2019-07-23] MEDS ORDERED: ALBUTEROL SO4 0.083% IH SOL 2.5 MG/3 ML VIAL.NEB. NEB PRN (06:05)
[2019-07-23 07:49] LABS: EOS % 0.2 % (0-4.5); HEMATOCRIT 31.9 % (35.4-49); LYMPH % 5.7 % (8-40); MCH 30.8 pg (25.7-33.7); MCHC 31.3 g/dl (32.0-35.9); MEAN CELL VOLUME 98.5 fl (80-96); MEAN PLT VOLUME 8.8 fl (7.5-11.1); MONO % 6.2 % (3.8-10.2); NEUT % 87.9 % (42.8-82.8); PLATELET COUNT 180 K/MM3 (134-434); RBC 3.24 M/mm3 (4.00-5.60); RDW 21.2 % (11.9-15.9); WHITE BLOOD COUNT 21.9 K/mm3 (4.0-10.0)
[2019-07-23] MEDS: ALBUTEROL SO4 2.5/IPRATROPIUM 0.5 INH SOL 3 ML VIAL.NEB. NEB SCH ×4 (08:45→21:20)
[2019-07-23 09:22] LABS: ANION GAP 8 MMOL/L (8-16); BLOOD UREA NITROGEN 30.6 mg/dL (7-18); CALCIUM 7.7 mg/dL (8.5-10.1); CHLORIDE 108 mmol/L (98-107); CO2 24 mmol/L (21-32); CREATININE 1.9 mg/dL (0.55-1.3); GLUCOSE,RANDOM 101 mg/dL (74-106); IRON SERUM 130 ug/dL (50-175); POTASSIUM 4.2 mmol/L (3.5-5.1); SODIUM 141 mmol/L (136-145); TOTAL IRON BINDING CAPACITY 246 ug/dL (250-450)
[2019-07-23] MEDS ORDERED: PT OWN MED DRAWER 7, Y5N ONE (09:29)
[2019-07-23] MEDS: ENOXAPARIN NA (PORCINE) 100 MG/1 ML DISP.SYRIN SQ SCH ×2 (09:33→22:15)
[2019-07-23] MEDS: PANTOPRAZOLE 40 MG TABLET PO SCH (09:33)
[2019-07-23] MEDS: MULTIVITAMINS (DAILY MVI) TABLET (FP) PO SCH (09:33)
[2019-07-23] MEDS: FOLIC ACID 1 MG TABLET (FP) PO SCH (09:33)
[2019-07-23] MEDS: THIAMINE HCL 100 MG TABLET (FP) PO SCH (09:33)
[2019-07-23] MEDS: MUPIROCIN 2% TOPICAL OINTMENT FOR DECOLONIZATION NS SCH ×2 (09:41→22:15)
[2019-07-23] MEDS ORDERED: METHADONE HCL 10 MG TABLET (FOR DETOX USE ONLY) PO ONE (09:52)
[2019-07-23 09:53] LABS: INR 1.69 (0.83-1.09)
[2019-07-23 09:55] LABS: ACTIVATED PTT 35.4 SECONDS (25.2-36.5)
[2019-07-23] MEDS ORDERED: MUPIROCIN 2% TOPICAL OINTMENT FOR DECOLONIZATION NS SCH (10:00)
[2019-07-23] MEDS ORDERED: TIOTROPIUM BROMIDE 2.5 MCG (SPIRIVA) RESPIMAT INHALER IH SCH (10:00)
[2019-07-23] MEDS ORDERED: SOTALOL HCL 80 MG TABLET (FP) PO SCH (10:00)
[2019-07-23] MEDS ORDERED: TIOTROPIUM/OLODATEROL HCL (STIOLTO) 4 GM INHALER IH SCH (10:00)
--- NOTE | 2019-07-23 10:27 | CON.GI ---
Consult Consult Specialty:: GI - History of Present Illness History of Present Illness: Patient seen in the ICU 64 yo M with PMH hx of HTN, HLD, Lung CA on chemo (squamous cell carcinoma (s/ p carbo/taxol therapy)), COPD on 3L home O2, LISA, PE on Lovenox, atrial fibrillation, SVC syndrome s/p stent placement who presents to the [facility] er originally stuporous and unresponsive, now A&O x4 after naloxone boluses, currently on narcan drip Patient is awake and oriented to time place and person. - Past Medical History Cardio/Vascular: Yes: AFIB, HTN, Other (smoker with lung mass) Pulmonary: Yes: COPD - Past Surgical History Past Surgical History: Yes: Cholecystectomy, Hernia Repair - Alcohol/Substance Use Hx Alcohol Use: No - Smoking History Smoking history: Unknown if ever smoked Have you smoked in the past 12 months: No Aproximately how many cigarettes per day: 5 If you are a former smoker, when did you quit?: 2018 - Social History Usual Living Arrangement: Alone ADL: Independent History of Recent Travel: No Home Medications - Allergies Allergies/Adverse Reactions: Allergies Allergy/AdvReac Type Severity Reaction Status Date / Time No Known Allergies Allergy Verified 07/22/19 21:09 - Home Medications Home Medications: Ambulatory Orders Albuterol Sulfate [Proventil HFA Inhaler -] 1 - 2 inh PO QID 02/22/18 Sotalol HCl [Betapace -] 80 mg PO BID tablet 04/29/18 Tiotropium [place] [Spiriva Respimat] 2 puff IH DAILY inhaler 04/29/18 Diltiazem Cd [Cardizem Cd -] 120 mg PO DAILY #30 cap.cd.24h 05/05/18 Oxycodone HCl 30 mg PO Q6H PRN 08/09/18 Ondansetron HCl [Zofran] 8 mg PO TID 11/24/18 Morphine *Sr* [MS Contin -] 30 mg PO Q12H 11/25/18 Enoxaparin [Lovenox -] 90 mg SQ BID 03/28/19 Ergocalciferol (Vitamin D2) [Vitamin D2] 50,000 unit PO WEEKLY 03/28/19 Gabapentin 300 mg PO BID 03/28/19 Pantoprazole Sodium [Protonix] 40 mg PO DAILY 03/28/19 Pravastatin Sodium [Pravachol] 40 mg PO DAILY 03/28/19 Tiotropium Br/Olodaterol HCl [Stiolto Respimat Inhal [place]] 1 puff BID 03/28/19 Zolpidem Tartrate [Ambien] 10 mg PO HS 03/28/19 Lactobacillus Acidophilus [Bacid -] 1 tab PO DAILY #14 tab 04/06/19 Physical Exam-GI Vital Signs: Vital Signs Temperature 98.3 F 07/23/19 05:52 Pulse Rate 108 H 07/23/19 09:00 Respiratory Rate 07/23/19 09:00 Blood Pressure 111/79 07/23/19 09:00 O2 Sat by Pulse Oximetry (%) 95 07/23/19 09:00 Constitutional: Yes: Well Nourished Eyes: Yes: Conjunctiva Clear HENT: Yes: Atraumatic Neck: Yes: Supple Cardiovascular: Yes: Regular Rate and Rhythm Respiratory: Yes: CTA Bilaterally ...Palpate: Yes: Soft. No: Firm/Rigid, Guarding, Hepatomegaly, Mass, Pulsatile Mass, Splenomegaly, Tenderness, Tenderness, Epigastium Labs: CBC, BMP 07/23/19 06:48 07/23/19 06:00 INR, PTT INR 1.69 (0.83-1.09) H 07/23/19 09:14 Home Medications Medication Instructions Recorded Albuterol Sulfate [Proventil HFA 1 - 2 inh PO QID 02/22/18 Inhaler -] Sotalol HCl [Betapace -] 80 mg PO BID tablet 04/29/18 Tiotropium [place] [Spiriva 2 puff IH DAILY inhaler 04/29/18 Respimat] Diltiazem Cd [Cardizem Cd -] 120 mg PO DAILY #30 cap.cd.24h 05/05/18 Oxycodone HCl 30 mg PO Q6H PRN 08/09/18 Ondansetron HCl [Zofran] 8 mg PO TID 11/24/18 Morphine *Sr* [MS Contin -] 30 mg PO Q12H 11/25/18 Enoxaparin [Lovenox -] 90 mg SQ BID 03/28/19 Ergocalciferol (Vitamin D2) 50,000 unit PO WEEKLY 03/28/19 [Vitamin D2] Gabapentin 300 mg PO BID 03/28/19 Pantoprazole Sodium [Protonix] 40 mg PO DAILY 03/28/19 Pravastatin Sodium [Pravachol] 40 mg PO DAILY 03/28/19 Tiotropium Br/Olodaterol HCl 1 puff BID 03/28/19 [Stiolto Respimat Inhal [place]] Zolpidem Tartrate [Ambien] 10 mg PO HS 03/28/19 Lactobacillus Acidophilus [Bacid -] 1 tab PO DAILY #14 tab 04/06/19 Active Medications Generic Name Dose Route Start Last Admin Trade Name Freq PRN Reason Stop Dose Admin Albuterol Sulfate 1 amp 07/23/19 06:05 Ventolin 0.083% Nebulizer Soln - NEB RQID PRN SHORT OF BREATH/WHEEZING Albuterol/Ipratropium 1 amp 07/23/19 08:00 07/23/19 08:45 Duoneb - NEB 1 amp RQID ALONDRA Administration Chlorhexidine Gluconate 1 applic 07/23/19 22:00 Hibiclens For Decolonization - TP HS [facility] Diltiazem HCl 120 mg 07/23/19 10:00 Cardizem Cd - PO DAILY [facility] Enoxaparin Sodium 90 mg 07/23/19 10:00 07/23/19 09:33 Lovenox - SQ 90 mg BID ALONDRA Administration Folic Acid 1 mg 07/23/19 10:00 07/23/19 09:33 Folic Acid - PO 1 mg DAILY ALONDRA Administration Naloxone HCl 2 mg/ Dextrose 500 mls @ 25 mls/hr 07/22/19 21:15 07/23/19 02:15 IV 0.04 mg/hr TITR ALONDRA 10 mls/hr Titration Protocol 0.1 MG/HR Lactated Ringer's 1,000 ml in 1,000 mls @ 125 mls/hr 07/22/19 23:30 07/22/19 23:41 Lactated Ringers Solution IV 125 mls/hr ASDIR ALONDRA Administration Multivitamins/Minerals/Vitamin C 1 tab 07/23/19 10:00 07/23/19 09:33 Tab-A-Vit - PO 1 tab DAILY ALONDRA Administration Mupirocin 1 applic 07/23/19 10:00 07/23/19 09:41 Bactroban Ointment (For Decolonization) - NS 07/28/19 09:59 Not Given BID ALONDRA Pantoprazole Sodium 40 mg 07/23/19 10:00 07/23/19 09:33 Protonix - PO 40 mg DAILY ALONDRA Administration Thiamine HCl 100 mg 07/23/19 10:00 07/23/19 09:33 Vitamin B1 - PO 100 mg DAILY ALONDRA Administration Tiotropium [place]/Olodaterol 2 puff 07/23/19 10:00 07/23/19 09:33 Stiolto Respimat Inhal [place] IH 2 puff DAILY ALONDRA Administration Hepatic Panel Total Bilirubin 0.8 mg/dL (0.2-1) 07/22/19 21:50 AST 1956 U/L (15-37) H 07/22/19 21:50 ALT 1202 U/L (13-61) H 07/22/19 21:50 Alkaline Phosphatase 181 U/L (45-117) H 07/22/19 21:50 Albumin 3.8 g/dl (3.4-5.0) 07/22/19 21:50 Problem List - Problems (1) Hepatocellular injury Assessment/Plan: --severe secondary to Ischemic Hepatitis R> expect the lfts to improve with hydration as SGOT/PT improves there could be a increase in T.bili repeat CMP in am Code(s): K76.9 - LIVER DISEASE, UNSPECIFIED
[2019-07-23] MEDS ORDERED: dilTIAZem HCL 50 MG/10 ML - 10 ML VIAL IVPUSH PRN (10:50)
--- NOTE | 2019-07-23 11:01 | EKG ---
Test Reason : Blood Pressure : / mmHG Vent. Rate : 237 BPM Atrial Rate : 137 BPM P-R Int : 112 ms QRS Dur : 152 ms QT Int : 228 ms P-R-T Axes : 057 -05 063 degrees QTc Int : 452 ms POOR DATA QUALITY, INTERPRETATION MAY BE ADVERSELY AFFECTED SINUS RHYTHM NON-SPECIFIC INTRA-VENTRICULAR CONDUCTION BLOCK ABNORMAL ECG Confirmed by ZHANG ANDRADE MD ([id number]) on 07/23/2019 11:01:30 AM Referred By: Confirmed By:ZHANG ANDRADE MD
--- NOTE | 2019-07-23 11:04 | PN ---
Teaching Attending Note Name of Resident: Shantell Good ATTENDING PHYSICIAN STATEMENT I saw and evaluated the patient. I reviewed the resident's note and discussed the case with the resident. I agree with the resident's findings and plan as documented. SUBJECTIVE: Pt seen and examined in the ICU. Mental status improved. Still hypoxic on NRB. Placed on 50% FiO2. OBJECTIVE: Vital Signs Period Temp Pulse Resp BP Sys/Gtz Pulse Ox Last 24 Hr 98.3 F-98.7 F 108-132 20-38 101-140/72-130 46-100 Intake & Output 07/20/19 07/21/19 07/22/19 07/23/19 23:59 23:59 23:59 23:59 Intake Total 1040 Balance 1040 Weight 113.398 kg 90.174 kg Gen: diaphoretic Heart: tachycardic, irregular Lung: scattered rhonchi Abd: soft, nontender Ext: no edema CBC, BMP 07/23/19 06:48 07/23/19 06:00 Active Medications Albuterol Sulfate (Ventolin 0.083% Nebulizer Soln -) 1 amp NEB RQID PRN PRN Reason: SHORT OF BREATH/WHEEZING Albuterol/Ipratropium (Duoneb -) 1 amp NEB RQID ALONDRA Last Admin: 07/23/19 08:45 Dose: 1 amp Chlorhexidine Gluconate (Hibiclens For Decolonization -) 1 applic TP HS [facility] Diltiazem HCl (Cardizem Cd -) 120 mg PO DAILY ALONDRA Diltiazem HCl (Cardizem Injection -) 5 mg IVPUSH Q4H PRN PRN Reason: TACHYCARDIA Enoxaparin Sodium (Lovenox -) 90 mg SQ BID [facility] Last Admin: 07/23/19 09:33 Dose: 90 mg Folic Acid (Folic Acid -) 1 mg PO DAILY [facility] Last Admin: 07/23/19 09:33 Dose: 1 mg Naloxone HCl 2 mg/ Dextrose 500 mls @ 25 mls/hr IV TITR ALONDRA; Protocol Last Titration: 07/23/19 02:15 Dose: 0.04 mg/hr, 10 mls/hr Lactated Ringer's (Lactated Ringers Solution) 1,000 ml in 1,000 mls @ 125 mls/ hr IV ASDIR [facility] Last Admin: 07/22/19 23:41 Dose: 125 mls/hr Ceftriaxone Sodium 1 gm/ (Dextrose) 50 mls @ 100 mls/hr IVPB DAILY [facility]; Protocol Multivitamins/Minerals/Vitamin C (Tab-A-Vit -) 1 tab PO DAILY [facility] Last Admin: 07/23/19 09:33 Dose: 1 tab Mupirocin (Bactroban Ointment (For Decolonization) -) 1 applic NS BID [facility] Stop: 07/28/19 09:59 Last Admin: 07/23/19 09:41 Dose: Not Given Pantoprazole Sodium (Protonix -) 40 mg PO DAILY [facility] Last Admin: 07/23/19 09:33 Dose: 40 mg Sotalol HCl (Betapace -) 80 mg PO BID [facility] Thiamine HCl (Vitamin B1 -) 100 mg PO DAILY [facility] Last Admin: 07/23/19 09:33 Dose: 100 mg ASSESSMENT AND PLAN: Altered Mental Status improving Acute on Chronic Hypoxic Respiratory Failure Opioid Overdose Elevated LFTs likely Ischemic Injury Acute Kidney Injury Metastatic Squamous Cell Cancer on chemo COPD h/o PE/SVC thrombus Atrial Fibrillation with RVR HTN Hyperlipidemia - O2 to keep SpO2 >90% - IVF - trend LFTs - monitor urine output, creatinine - can d/c narcan - place back on methadone - empiric antibiotics for now - f/u cultures - rate control - continue anticoagulation - continue ICU monitoring
[2019-07-23] MEDS ORDERED: cefTRIAXone SODIUM 1 GM VIAL ONE (11:48)
[2019-07-23] MEDS ORDERED: DEXTROSE 5%-WATER - 50 ML IVPB ONE (11:48)
[2019-07-23] MEDS: SOTALOL HCL 80 MG TABLET (FP) PO SCH ×2 (12:03→22:14)
[2019-07-23] MEDS: CEFTRIAXONE 1 GM in DEXTROSE 5%-WATER - 50 ML IVPB SCH (12:03)
[2019-07-23] MEDS ORDERED: METHADONE HCL 10 MG TABLET PO ONE (12:15)
--- NOTE | 2019-07-23 12:19 | PN ---
Progress Note, Physician Chief Complaint: Opioid Overdose SC Lung Ca History of Present Illness: NAD alert but lethargic On VM 50% - Current Medication List Current Medications: Active Medications Albuterol Sulfate (Ventolin 0.083% Nebulizer Soln -) 1 amp NEB RQID PRN PRN Reason: SHORT OF BREATH/WHEEZING Albuterol/Ipratropium (Duoneb -) 1 amp NEB RQID [facility] Last Admin: 07/23/19 12:01 Dose: 1 amp Chlorhexidine Gluconate (Hibiclens For Decolonization -) 1 applic TP HS [facility] Diltiazem HCl (Cardizem Cd -) 120 mg PO DAILY [facility] Last Admin: 07/23/19 12:03 Dose: 120 mg Diltiazem HCl (Cardizem Injection -) 5 mg IVPUSH Q4H PRN PRN Reason: TACHYCARDIA Enoxaparin Sodium (Lovenox -) 90 mg SQ BID [facility] Last Admin: 07/23/19 09:33 Dose: 90 mg Folic Acid (Folic Acid -) 1 mg PO DAILY [facility] Last Admin: 07/23/19 09:33 Dose: 1 mg Naloxone HCl 2 mg/ Dextrose 500 mls @ 25 mls/hr IV TITR [facility]; Protocol Last Titration: 07/23/19 02:15 Dose: 0.04 mg/hr, 10 mls/hr Lactated Ringer's (Lactated Ringers Solution) 1,000 ml in 1,000 mls @ 125 mls/ hr IV ASDIR [facility] Last Admin: 07/22/19 23:41 Dose: 125 mls/hr Ceftriaxone Sodium 1 gm/ (Dextrose) 50 mls @ 100 mls/hr IVPB DAILY [facility]; Protocol Last Admin: 07/23/19 12:03 Dose: 100 mls/hr Multivitamins/Minerals/Vitamin C (Tab-A-Vit -) 1 tab PO DAILY [facility] Last Admin: 07/23/19 09:33 Dose: 1 tab Mupirocin (Bactroban Ointment (For Decolonization) -) 1 applic NS BID [facility] Stop: 07/28/19 09:59 Last Admin: 07/23/19 09:41 Dose: Not Given Pantoprazole Sodium (Protonix -) 40 mg PO DAILY [facility] Last Admin: 07/23/19 09:33 Dose: 40 mg Sotalol HCl (Betapace -) 80 mg PO BID [facility] Last Admin: 07/23/19 12:03 Dose: 80 mg Thiamine HCl (Vitamin B1 -) 100 mg PO DAILY [facility] Last Admin: 07/23/19 09:33 Dose: 100 mg - Objective Vital Signs: Vital Signs Temperature 98.3 F 07/23/19 05:52 Pulse Rate 108 H 07/23/19 09:00 Respiratory Rate 20 07/23/19 09:00 Blood Pressure 111/79 07/23/19 09:00 O2 Sat by Pulse Oximetry (%) 95 07/23/19 09:00 Constitutional: Yes: Well Nourished, No Distress, Calm Cardiovascular: Yes: Regular Rate and Rhythm Respiratory: Yes: Regular, Diminished (BLL), On Venti-Mask Gastrointestinal: Yes: Normal Bowel Sounds, Soft Genitourinary: Yes: WNL Musculoskeletal: Yes: Muscle Weakness Extremities: Yes: WNL Edema: No Peripheral Pulses WNL: Yes Neurological: Yes: Alert, Lethargy Psychiatric: Yes: Alert Labs: CBC, BMP 07/23/19 06:48 07/23/19 06:00 INR, PTT INR 1.69 (0.83-1.09) H 07/23/19 09:14 Problem List - Problems (1) Acute kidney injury Assessment/Plan: -nephrology consult -Monitor trend -Continue IVF Problems reviewed: Yes Code(s): N17.9 - ACUTE KIDNEY FAILURE, UNSPECIFIED (2) Elevated liver enzymes Assessment/Plan: -2/2 to ischemic hepatitis -Continue IVF -Monitor trend Problems reviewed: Yes Code(s): R74.8 - ABNORMAL LEVELS OF OTHER SERUM ENZYMES (3) Opioid overdose Assessment/Plan: -Nalaxone dc'd as pt's mental status is improving -Neuro check -ICU monitoring Problems reviewed: Yes Code(s): T40.2X1A - POISONING BY OTH OPIOIDS, ACCIDENTAL (UNINTENTIONAL), INIT Qualifiers: Encounter type: initial encounter Injury intent: accidental or unintentional Qualified Code(s): T40.2X1A - Poisoning by other opioids, accidental (unintentional), initial encounter (4) Afib Assessment/Plan: -Chronic -Rate controlled -ICU monitoring -Lovenox Problems reviewed: Yes Code(s): I48.91 - UNSPECIFIED ATRIAL FIBRILLATION (5) SVC syndrome Problems reviewed: Yes Code(s): I87.1 - COMPRESSION OF VEIN (6) Squamous cell lung cancer Assessment/Plan: -Oncology consult -Palliative consult Problems reviewed: Yes Code(s): C34.90 - MALIGNANT NEOPLASM OF UNSP PART OF UNSP BRONCHUS OR LUNG Assessment/Plan see problem list
--- NOTE | 2019-07-23 12:29 | PN ---
Physical Exam: SUBJECTIVE: Patient seen and examined. Pt AAOx3. diaphoretic and tachy in the morning and tachypnic. OBJECTIVE: Vital Signs Period Temp Pulse Resp BP Sys/Gtz Pulse Ox Last 24 Hr 98.3 F-98.7 F 108-132 20-38 101-140/72-130 46-100 GENERAL: The patient is awake, alert, and fully oriented, in mild distress. HEAD: Normal with no signs of trauma. EYES: PERRL, extraocular movements intact, sclera anicteric, conjunctiva clear. No ptosis. ENT: oropharynx clear without exudates, moist mucous membranes. NECK: no JVD LUNGS: Breath sounds equal, clear to auscultation bilaterally but reduced in BLL [place], no wheezes, no crackles, no accessory muscle use. HEART: tachy Regular rate and rhythm, S1, S2 without murmur, rub or gallop. ABDOMEN: Soft, nontender, nondistended, normoactive bowel sounds, no guarding, no rebound, no hepatosplenomegaly, no masses. EXTREMITIES: 2+ pulses, warm, well-perfused, no edema SKIN: Warm, dry, normal turgor, Laboratory Results - last 24 hr 07/22/19 07/22/19 07/22/19 01:13 21:13 21:50 WBC RBC Hgb Hct MCV MCH MCHC RDW Plt Count MPV Absolute Neuts (auto) Neutrophils % Neutrophils % (Manual) Band Neutrophils % Lymphocytes % Lymphocytes % (Manual) Monocytes % Monocytes % (Manual) Eosinophils % Eosinophils % (Manual) Basophils % Basophils % (Manual) Myelocytes % (Man) Promyelocytes % (Man) Blast Cells % (Manual) Nucleated RBC % Metamyelocytes Platelet Estimate Polychromasia Poikilocytosis Anisocytosis Microcytosis Macrocytosis PT with INR 19.90 H INR 1.68 H PTT (Actin FS) 45.6 H Anticoagulation Therapy No Result Required. Puncture Site ABG pH ABG pCO2 at Pt Temp ABG pO2 at Pt Temp ABG HCO3 ABG O2 Sat (Measured) ABG O2 Content ABG Base Excess Sandro Test VBG pH POC VBG pCO2 POC VBG pO2 VBG HCO3 VBG O2 Sat (Wang) VBG Base Excess O2 Delivery Device Oxygen Flow Rate Vent Mode No Result Required. Vent Rate No Result Required. Mechanical Rate No Result Required. Pressure Support Vent No Result Required. Sodium Potassium Chloride Carbon Dioxide Anion Gap BUN Creatinine Est GFR (CKD-EPI)AfAm Est GFR (CKD-EPI)NonAf Random Glucose Calcium Iron TIBC Iron Saturation Unsaturated IBC Ferritin Total Bilirubin AST ALT Alkaline Phosphatase Ammonia Total Protein Albumin Vitamin B12 Serum Folate Salicylates 2.1 L Acetaminophen <2.0 Alcohol, Quantitative 07/22/19 07/22/19 07/22/19 21:50 21:50 21:50 WBC 23.6 H RBC 3.35 L Hgb 10.4 L Hct 32.9 L MCV 98.0 H MCH 31.0 MCHC 31.6 L RDW 21.2 H Plt Count 194 D MPV 8.5 Absolute Neuts (auto) 20.2 H Neutrophils % 85.5 H D Neutrophils % (Manual) 61.4 Band Neutrophils % 22.8 Lymphocytes % 7.0 L D Lymphocytes % (Manual) 3.0 L D Monocytes % 7.2 Monocytes % (Manual) 8 Eosinophils % 0.1 D Eosinophils % (Manual) 0.0 D Basophils % 0.2 Basophils % (Manual) 0.0 Myelocytes % (Man) 5 H D Promyelocytes % (Man) 0 Blast Cells % (Manual) 0 Nucleated RBC % 2 H Metamyelocytes 0 Platelet Estimate Normal Polychromasia 2+ Poikilocytosis 1+ Anisocytosis 2+ Microcytosis 2+ Macrocytosis 0 PT with INR INR PTT (Actin FS) Anticoagulation Therapy Puncture Site ABG pH ABG pCO2 at Pt Temp ABG pO2 at Pt Temp ABG HCO3 ABG O2 Sat (Measured) ABG O2 Content ABG Base Excess Sandro Test VBG pH POC VBG pCO2 POC VBG pO2 VBG HCO3 VBG O2 Sat (Wang) VBG Base Excess O2 Delivery Device Oxygen Flow Rate Vent Mode Vent Rate Mechanical Rate Pressure Support Vent Sodium 139 Potassium 5.2 H Chloride 102 Carbon Dioxide 23 Anion Gap 13 BUN 20.7 H Creatinine 2.6 H Est GFR (CKD-EPI)AfAm 28.91 Est GFR (CKD-EPI)NonAf 24.94 Random Glucose 82 Calcium 8.4 L Iron TIBC Iron Saturation Unsaturated IBC Ferritin Total Bilirubin 0.8 AST 1956 H ALT 1202 H Alkaline Phosphatase 181 H Ammonia Total Protein 7.6 Albumin 3.8 Vitamin B12 Serum Folate Salicylates Acetaminophen Alcohol, Quantitative < 3 07/22/19 07/23/1907/23/20 21:50 00:00 01:13 WBC RBC Hgb Hct MCV MCH MCHC RDW Plt Count MPV Absolute Neuts (auto) Neutrophils % Neutrophils % (Manual) Band Neutrophils % Lymphocytes % Lymphocytes % (Manual) Monocytes % Monocytes % (Manual) Eosinophils % Eosinophils % (Manual) Basophils % Basophils % (Manual) Myelocytes % (Man) Promyelocytes % (Man) Blast Cells % (Manual) Nucleated RBC % Metamyelocytes Platelet Estimate Polychromasia Poikilocytosis Anisocytosis Microcytosis Macrocytosis PT with INR INR PTT (Actin FS) Anticoagulation Therapy Puncture Site Left radial ABG pH 7.34 L ABG pCO2 at Pt Temp No Result Required. ABG pO2 at Pt Temp 76.6 L ABG HCO3 No Result Required. ABG O2 Sat (Measured) 92.3 L ABG O2 Content 15.4 ABG Base Excess No Result Required. Sandro Test Positive VBG pH 7.30 L POC VBG pCO2 49.8 POC VBG pO2 < 49 H VBG HCO3 23.5 VBG O2 Sat (Wang) 21.3 L VBG Base Excess -2.6 L O2 Delivery Device Non rebreather Oxygen Flow Rate Yes Vent Mode Vent Rate Mechanical Rate Pressure Support Vent Sodium Potassium Chloride Carbon Dioxide Anion Gap BUN Creatinine Est GFR (CKD-EPI)AfAm Est GFR (CKD-EPI)NonAf Random Glucose Calcium Iron TIBC Iron Saturation Unsaturated IBC Ferritin Total Bilirubin AST ALT Alkaline Phosphatase Ammonia 37.80 H Total Protein Albumin Vitamin B12 Serum Folate Salicylates Acetaminophen Alcohol, Quantitative 07/23/19 07/23/19 07/23/19 06:00 06:48 06:48 WBC 21.9 H RBC 3.24 L Hgb 10.0 L Hct 31.9 L MCV 98.5 H MCH 30.8 MCHC 31.3 L RDW 21.2 H Plt Count 180 MPV 8.8 Absolute Neuts (auto) 19.2 H Neutrophils % 87.9 H Neutrophils % (Manual) Band Neutrophils % Lymphocytes % 5.7 L Lymphocytes % (Manual) Monocytes % 6.2 Monocytes % (Manual) Eosinophils % 0.2 D Eosinophils % (Manual) Basophils % 0.0 Basophils % (Manual) Myelocytes % (Man) Promyelocytes % (Man) Blast Cells % (Manual) Nucleated RBC % 0 Metamyelocytes Platelet Estimate Polychromasia Poikilocytosis Anisocytosis Microcytosis Macrocytosis PT with INR INR PTT (Actin FS) Anticoagulation Therapy Puncture Site ABG pH ABG pCO2 at Pt Temp ABG pO2 at Pt Temp ABG HCO3 ABG O2 Sat (Measured) ABG O2 Content ABG Base Excess Sandro Test VBG pH POC VBG pCO2 POC VBG pO2 VBG HCO3 VBG O2 Sat (Wang) VBG Base Excess O2 Delivery Device Oxygen Flow Rate Vent Mode Vent Rate Mechanical Rate Pressure Support Vent Sodium 141 Potassium 4.2 Chloride 108 H Carbon Dioxide 24 Anion Gap 8 BUN 30.6 H Creatinine 1.9 H Est GFR (CKD-EPI)AfAm 42.24 Est GFR (CKD-EPI)NonAf 36.45 Random Glucose 101 Calcium 7.7 L Iron 130 Cancelled TIBC 246 L Cancelled Iron Saturation 52 H Cancelled Unsaturated IBC 116 L Cancelled Ferritin > 26507.0 H Total Bilirubin AST ALT Alkaline Phosphatase Ammonia Total Protein Albumin Vitamin B12 > 6000 H Serum Folate 83 H Salicylates Acetaminophen Alcohol, Quantitative 07/23/19 09:14 WBC RBC Hgb Hct MCV MCH MCHC RDW Plt Count MPV Absolute Neuts (auto) Neutrophils % Neutrophils % (Manual) Band Neutrophils % Lymphocytes % Lymphocytes % (Manual) Monocytes % Monocytes % (Manual) Eosinophils % Eosinophils % (Manual) Basophils % Basophils % (Manual) Myelocytes % (Man) Promyelocytes % (Man) Blast Cells % (Manual) Nucleated RBC % Metamyelocytes Platelet Estimate Polychromasia Poikilocytosis Anisocytosis Microcytosis Macrocytosis PT with INR 20.00 H INR 1.69 H PTT (Actin FS) 35.4 Anticoagulation Therapy Puncture Site ABG pH ABG pCO2 at Pt Temp ABG pO2 at Pt Temp ABG HCO3 ABG O2 Sat (Measured) ABG O2 Content ABG Base Excess Sandro Test VBG pH POC VBG pCO2 POC VBG pO2 VBG HCO3 VBG O2 Sat (Wang) VBG Base Excess O2 Delivery Device Oxygen Flow Rate Vent Mode Vent Rate Mechanical Rate Pressure Support Vent Sodium Potassium Chloride Carbon Dioxide Anion Gap BUN Creatinine Est GFR (CKD-EPI)AfAm Est GFR (CKD-EPI)NonAf Random Glucose Calcium Iron TIBC Iron Saturation Unsaturated IBC Ferritin Total Bilirubin AST ALT Alkaline Phosphatase Ammonia Total Protein Albumin Vitamin B12 Serum Folate Salicylates Acetaminophen Alcohol, Quantitative Active Medications Generic Name Dose Route Start Last Admin Trade Name Freq PRN Reason Stop Dose Admin Albuterol Sulfate 1 amp 07/23/19 06:05 Ventolin 0.083% Nebulizer Soln - NEB RQID PRN SHORT OF BREATH/WHEEZING Albuterol/Ipratropium 1 amp 07/23/19 08:00 07/23/19 12:01 Duoneb - NEB 1 amp RQID ALONDRA Administration Chlorhexidine Gluconate 1 applic 07/23/19 22:00 Hibiclens For Decolonization - TP HS ALONDRA Diltiazem HCl 120 mg 07/23/19 10:00 07/23/19 12:03 Cardizem Cd - PO 120 mg DAILY ALONDRA Administration Diltiazem HCl 5 mg 07/23/19 10:50 Cardizem Injection - IVPUSH Q4H PRN TACHYCARDIA Enoxaparin Sodium 90 mg 07/23/19 10:00 07/23/19 09:33 Lovenox - SQ 90 mg BID ALONDRA Administration Folic Acid 1 mg 07/23/19 10:00 07/23/19 09:33 Folic Acid - PO 1 mg DAILY ALONDRA Administration Naloxone HCl 2 mg/ Dextrose 500 mls @ 25 mls/hr 07/22/19 21:15 07/23/19 02:15 IV 0.04 mg/hr TITR ALONDRA 10 mls/hr Titration Protocol 0.1 MG/HR Lactated Ringer's 1,000 ml in 1,000 mls @ 125 mls/hr 07/22/19 23:30 07/22/19 23:41 Lactated Ringers Solution IV 125 mls/hr ASDIR ALONDRA Administration Ceftriaxone Sodium 1 gm/ 50 mls @ 100 mls/hr 07/23/19 11:00 07/23/19 12:03 Dextrose IVPB 100 mls/hr DAILY ALONDRA Administration Protocol Multivitamins/Minerals/Vitamin C 1 tab 07/23/19 10:00 07/23/19 09:33 Tab-A-Vit - PO 1 tab DAILY ALONDRA Administration Mupirocin 1 applic 07/23/19 10:00 07/23/19 09:41 Bactroban Ointment (For Decolonization) - NS 07/28/19 09:59 Not Given BID ALONDRA Pantoprazole Sodium 40 mg 07/23/19 10:00 07/23/19 09:33 Protonix - PO 40 mg DAILY ALONDRA Administration Sotalol HCl 80 mg 07/23/19 11:00 07/23/19 12:03 Betapace - PO 80 mg BID ALONDRA Administration Thiamine HCl 100 mg 07/23/19 10:00 07/23/19 09:33 Vitamin B1 - PO 100 mg DAILY ALONDRA Administration ASSESSMENT/PLAN: 64 y/o M with PMHx of Squamous cell Lung Ca (on Carbo/Taxol chemotherapy, patient of Dr. Hathaway and Dr. Arceo), COPD (on 3L, Stopped smoking 1 year ago), LISA (Non on Cpap), PE (on Lovenox), AFib, HTN, HLD, SVC syndrome s/p stent placement was BIBEMS after having a desaturation episode. #Neuro Pt currently AAOx3 Desaturation Episode + AMS concerning for Opiate Overdose on presentation -Unintentional occurence; Currently tachycardic, diaphoretic however maintaining airway and Sats >90% -D/C/ed naloxone drip in the setting of above symptoms in case of withdrawal from opoids -on time dose of methadone 30mg as pt endorse taking it as well #Cardio Hx of AFib, HTN, HLD, SVC syndrome -Continue home dose Cardizem Cd. -cardizem push PRN -resumed sotalol this morning; Resume Statin -[id number] 3, Continue home dose Lovenox -Pain specialist Dr Scott consulted for revision of pain regimen #Pulm Hx of Squamous cell Lung Ca (on Carbo/Taxol chemotherapy, patient of Dr. Hathaway and Dr. Arceo), COPD (on 3L, Stopped smoking 1 year ago), LISA (Non on Cpap), PE (on Lovenox) -cont bronchodilators except for tiotroprium -Continue home dose Lovenox -Supplemental O2 to maintain SpO2 > 88-92% -Pulm and Oncology consulted #GI elevated LFTs -most likely shock in nature -will repeat CMP in the AM -GI consulted, recs appreciated -Check RUQ US unremarkable -Hold hepatotoxic meds #Renal MIRIAM Kidney/Renal US no signs of hydronephrosis -Continue IV hydration, Hold Nephrotoxic meds -Nephrology consulted -monitor urine output, creatinine #ID Leukocytosis -Possibly reactive in the setting of Opiate OD; Afebrile, nonseptic appearing -CXR looks unchanged from prior -UA, blood cx pending -empiric ceftriaxone started for now #Heme/Onc Macrocytic Anemia -B12 and folate high. No evidence of Iron def #FEN -LR @ 125 -Replete Lytes PRN -clear liquid diet #PPx -DVT: Lovenox Dispo: We will continue to follow the patient. Thank you for this consultative opportunity. Visit type - Emergency Visit Emergency Visit: Yes ED Registration Date: 07/22/19 Care time: The patient presented to the Emergency Department on the above date and was hospitalized for further evaluation of their emergent condition. - New Patient This patient is new to me today: Yes Date on this admission: 07/23/19 - Critical Care Critical Care patient: Yes Total Critical Care Time (in minutes): 35 Critical Care Statement: The care of this patient involved high complexity decision making to prevent further life threatening deterioration of the patient's condition and/or to evaluate & treat vital organ system(s) failure or risk of failure. ATTENDING PHYSICIAN STATEMENT I saw and evaluated the patient. I reviewed the resident's note and discussed the case with the resident. I agree with the resident's findings and plan as documented. SUBJECTIVE: OBJECTIVE: ASSESSMENT AND PLAN:
[2019-07-23 12:36] LABS: ANISOCYTOSIS 1+; MACROCYTOSIS 0; PLATELET ESTIMATE NORMAL; TEAR DROP CELLS 1+; TOXIC GRANULATION 1+
[2019-07-23 13:45] LABS: RETICULOCYTES 4.98 % (0.5-1.5)
--- NOTE | 2019-07-23 21:40 | CONSULT ---
Consult Consult Specialty:: Heme/onc Referred by:: Dr. Lopez Reason for Consultation:: lung cancer - History of Present Illness History of Present Illness: 62M with COPD, Afib, and metastatic lung ca admitted after an episode of unresponsiveness. Pt was diagnosed with Stage III squamous cell ca of lung in 04/2018 c/b SVC syndrome s/p stent, RT, carboplatin/taxol (until 01/2019). He was found to have lung mets in 02/2019 and started gemzar, s/p c6d15 on 07/10/19. He is on Lovenox for PE dx at the time of presentation in 04/2018. Spouse called EMS after she found pt unresponsive in bed yesterday evening. Woke up after naloxone. Pt was agitated and saturating 90% en route to hospital. On arrival again was stuporous and required another dose of naloxone. He was found to have MIRIAM and transaminitis thought to be 2/2 ischemia. This afternoon, pt is alert, answering questions appropriately. Reports taking a significant amount of oral morphine and oxycontin at home, but he cannot recall exactly how much he took. - History Source History Provided By: Patient - Past Medical History Cardio/Vascular: Yes: AFIB, HTN, Other (smoker with lung mass) Pulmonary: Yes: COPD - Past Surgical History Past Surgical History: Yes: Cholecystectomy, Hernia Repair - Alcohol/Substance Use Hx Alcohol Use: No - Smoking History Smoking history: Unknown if ever smoked Have you smoked in the past 12 months: No Aproximately how many cigarettes per day: 5 If you are a former smoker, when did you quit?: 2018 - Social History Usual Living Arrangement: Alone ADL: Independent History of Recent Travel: No Home Medications - Allergies Allergies/Adverse Reactions: Allergies Allergy/AdvReac Type Severity Reaction Status Date / Time No Known Allergies Allergy Verified 07/22/19 21:09 - Home Medications Home Medications: Ambulatory Orders Albuterol Sulfate [Proventil HFA Inhaler -] 1 - 2 inh PO QID 02/22/18 Sotalol HCl [Betapace -] 80 mg PO BID tablet 04/29/18 Tiotropium [place] [Spiriva Respimat] 2 puff IH DAILY inhaler 04/29/18 Diltiazem Cd [Cardizem Cd -] 120 mg PO DAILY #30 cap.cd.24h 05/05/18 Oxycodone HCl 30 mg PO Q6H PRN 08/09/18 Ondansetron HCl [Zofran] 8 mg PO TID 11/24/18 Morphine *Sr* [MS Contin -] 30 mg PO Q12H 11/25/18 Enoxaparin [Lovenox -] 90 mg SQ BID 03/28/19 Ergocalciferol (Vitamin D2) [Vitamin D2] 50,000 unit PO WEEKLY 03/28/19 Gabapentin 300 mg PO BID 03/28/19 Pantoprazole Sodium [Protonix] 40 mg PO DAILY 03/28/19 Pravastatin Sodium [Pravachol] 40 mg PO DAILY 03/28/19 Tiotropium Br/Olodaterol HCl [Stiolto Respimat Inhal [place]] 1 puff BID 03/28/19 Zolpidem Tartrate [Ambien] 10 mg PO HS 03/28/19 Lactobacillus Acidophilus [Bacid -] 1 tab PO DAILY #14 tab 04/06/19 Physical Exam Vital Signs: Vital Signs Temperature 98.3 F 07/23/19 05:52 Pulse Rate 104 H 07/23/19 20:00 Respiratory Rate 07/23/19 20:00 Blood Pressure 102/75 07/23/19 20:00 O2 Sat by Pulse Oximetry (%) 95 07/23/19 20:00 Constitutional: Yes: Diaphoresis, Mild Distress Eyes: Yes: Conjunctiva Clear Cardiovascular: Yes: Regular Rate and Rhythm Respiratory: Yes: Regular, CTA Bilaterally Gastrointestinal: Yes: Soft. No: Distention, Palpable Mass, Tenderness Edema: No Labs: CBC, BMP 07/23/19 06:48 07/23/19 06:00 Assessment/Plan 62M with COPD, AF, and metastatic squamous cell ca of lung, on gemzar s/p c6d15 on 07/10 admitted after an episode of unresponsiveness and desaturation thought to be 2/2 oxycontin/morphine overdose. Responded to naloxone and is now alert but with MIRIAM (improving) and transaminitis likely 2/2 ischemia. GI following. Also with reactive leukocytosis. Will continue to follow.
[2019-07-23] MEDS ORDERED: CHLORHEXIDINE GLUCONATE 4% CLEANSER FOR DECOLONIZATION TP SCH (22:00)
[2019-07-23] MEDS: NALOXONE HCL 2 MG in DEXTROSE 5%-WATER - 495 ML IV SCH (22:15)
[2019-07-23] MEDS: CHLORHEXIDINE GLUCONATE 4% CLEANSER FOR DECOLONIZATION TP SCH (22:15)
[2019-07-24] MEDS ORDERED: oxyCODONE HCL 5 MG TABLET PO ONE (00:01)
[2019-07-24] MEDS: LACTATED RINGERS SOLUTION 1,000 ML/1,000 ML INFUS.BAG IV SCH (00:26)
[2019-07-24 06:56] LABS: BASO % 0.2 % (0-2.0); EOS % 2.4 % (0-4.5); HEMATOCRIT 28.5 % (35.4-49); HEMOGLOBIN 9.2 GM/dL (11.7-16.9); LYMPH % 5.3 % (8-40); MCH 31.4 pg (25.7-33.7); MCHC 32.4 g/dl (32.0-35.9); MEAN PLT VOLUME 8.2 fl (7.5-11.1); MONO % 7.7 % (3.8-10.2); NEUT % 84.4 % (42.8-82.8); PLATELET COUNT 175 K/MM3 (134-434); RBC 2.94 M/mm3 (4.00-5.60); RDW 21.1 % (11.9-15.9); WHITE BLOOD COUNT 16.1 K/mm3 (4.0-10.0)
[2019-07-24] MEDS: ALBUTEROL SO4 2.5/IPRATROPIUM 0.5 INH SOL 3 ML VIAL.NEB. NEB SCH ×4 (07:40→20:45)
[2019-07-24 07:46] LABS: BILIRUBIN,TOTAL 0.5 mg/dL (0.2-1); BLOOD UREA NITROGEN 18.7 mg/dL (7-18); CALCIUM 7.8 mg/dL (8.5-10.1); CREATININE 0.9 mg/dL (0.55-1.3); MAGNESIUM 2.5 mg/dL (1.8-2.4); PHOSPHOROUS 2.2 mg/dL (2.5-4.9); POTASSIUM 4.4 mmol/L (3.5-5.1); TOT PROT 6.1 g/dl (6.4-8.2)
--- NOTE | 2019-07-24 07:54 | PN.GI ---
GI Progress Note Subjective: Patient is alert and awake, lying in bed. Denies nausea, vomiting, abdominal pain, diarrhea, constipation, rectal bleeding, melena. This morning labs continue to show elevated LFTs with AST 1649, ALT 2173, Alk Phos 134. Abdominal US shows s/p cholecystectomy, no definite biliary tract dilatation, mild, stable splenomegaly. - Objective Vital Signs: Vital Signs Temperature 98.3 F 07/24/19 06:00 Pulse Rate 96 H 07/24/19 06:00 Respiratory Rate 26 H 07/24/19 06:00 Blood Pressure 94/67 07/24/19 06:00 O2 Sat by Pulse Oximetry (%) 95 07/23/19 20:00 Constitutional: No Distress, Calm Eyes: Yes: Conjunctiva Clear HENT: Yes: Atraumatic Cardiovascular: Yes: Regular Rate and Rhythm Respiratory: Yes: On Venti-Mask, Wheezes Gastrointestinal Inspection: Yes: WNL. No: Ascites, Distention, Hernia, Scars, Other ...Auscultate: Yes: Normoactive Bowel Sounds. No: Hyperactive Bowel Sounds, Hypoactive Bowel Sounds, No Bowel Sounds, Other ...Palpate: Yes: Soft. No: Firm/Rigid, Guarding, Hepatomegaly, Mass, Pulsatile Mass, Splenomegaly, Tenderness, Tenderness, Epigastium, Tenderness, Rebound, Other ...Percussion: Yes: Tympanitic. No: Dullness, Fluid Wave, Other Neurological: Yes: Alert, Oriented Psychiatric: Yes: Alert, Oriented Labs: CBC, BMP 07/24/19 06:00 07/24/19 06:00 INR, PTT INR 1.69 (0.83-1.09) H 07/23/19 09:14 Active Medications Generic Name Dose Route Start Last Admin Trade Name Freq PRN Reason Stop Dose Admin Albuterol Sulfate 1 amp 07/23/19 06:05 Ventolin 0.083% Nebulizer Soln - NEB RQID PRN SHORT OF BREATH/WHEEZING Albuterol/Ipratropium 1 amp 07/23/19 08:00 07/23/19 21:20 Duoneb - NEB 1 amp RQID ALONDRA Administration Chlorhexidine Gluconate 1 applic 07/23/19 22:00 07/23/19 22:15 Hibiclens For Decolonization - TP 1 applic HS ALONDRA Administration Diltiazem HCl 120 mg 07/23/19 10:00 07/23/19 12:03 Cardizem Cd - PO 120 mg DAILY ALONDRA Administration Diltiazem HCl 5 mg 07/23/19 10:50 Cardizem Injection - IVPUSH Q4H PRN TACHYCARDIA Enoxaparin Sodium 90 mg 07/23/19 10:00 07/23/19 22:15 Lovenox - SQ 90 mg BID ALONDRA Administration Folic Acid 1 mg 07/23/19 10:00 07/23/19 09:33 Folic Acid - PO 1 mg DAILY ALONDRA Administration Ceftriaxone Sodium 1 gm/ 50 mls @ 100 mls/hr 07/23/19 11:00 07/23/19 12:03 Dextrose IVPB 100 mls/hr DAILY ALONDRA Administration Protocol Multivitamins/Minerals/Vitamin C 1 tab 07/23/19 10:00 07/23/19 09:33 Tab-A-Vit - PO 1 tab DAILY ALONDRA Administration Mupirocin 1 applic 07/23/19 10:00 07/23/19 22:15 Bactroban Ointment (For Decolonization) - NS 07/28/19 09:59 1 applic BID ALONDRA Administration Pantoprazole Sodium 40 mg 07/23/19 10:00 07/23/19 09:33 Protonix - PO 40 mg DAILY ALONDRA Administration Sotalol HCl 80 mg 07/23/19 11:00 07/23/19 22:14 Betapace - PO 80 mg BID ALONDRA Administration Thiamine HCl 100 mg 07/23/19 10:00 07/23/19 09:33 Vitamin B1 - PO 100 mg DAILY ALONDRA Administration Problem List - Problems (1) Hepatocellular injury Assessment/Plan: --severe secondary to Ischemic Hepatitis R> expect the lfts to improve with hydration as SGOT/PT improves there could be a increase in T.bili repeat CMP results reviewed pending Abdominal MRI Code(s): K76.9 - LIVER DISEASE, UNSPECIFIED
[2019-07-24] MEDS ORDERED: NAPH,MB-DB/K PH,MBDB POWDER PACKET PO ONE (09:28)
--- NOTE | 2019-07-24 09:39 | PN ---
Progress Note, Physician - Current Medication List Current Medications: Active Medications Albuterol Sulfate (Ventolin 0.083% Nebulizer Soln -) 1 amp NEB RQID PRN PRN Reason: SHORT OF BREATH/WHEEZING Albuterol/Ipratropium (Duoneb -) 1 amp NEB RQID [facility] Last Admin: 07/24/19 07:40 Dose: 1 amp Chlorhexidine Gluconate (Hibiclens For Decolonization -) 1 applic TP HS [facility] Last Admin: 07/23/19 22:15 Dose: 1 applic Diltiazem HCl (Cardizem Cd -) 120 mg PO DAILY [facility] Last Admin: 07/23/19 12:03 Dose: 120 mg Diltiazem HCl (Cardizem Injection -) 5 mg IVPUSH Q4H PRN PRN Reason: TACHYCARDIA Enoxaparin Sodium (Lovenox -) 90 mg SQ BID [facility] Last Admin: 07/23/19 22:15 Dose: 90 mg Folic Acid (Folic Acid -) 1 mg PO DAILY [facility] Last Admin: 07/23/19 09:33 Dose: 1 mg Ceftriaxone Sodium 1 gm/ (Dextrose) 50 mls @ 100 mls/hr IVPB DAILY [facility]; Protocol Last Admin: 07/23/19 12:03 Dose: 100 mls/hr Multivitamins/Minerals/Vitamin C (Tab-A-Vit -) 1 tab PO DAILY [facility] Last Admin: 07/23/19 09:33 Dose: 1 tab Mupirocin (Bactroban Ointment (For Decolonization) -) 1 applic NS BID [facility] Stop: 07/28/19 09:59 Last Admin: 07/23/19 22:15 Dose: 1 applic Pantoprazole Sodium (Protonix -) 40 mg PO DAILY [facility] Last Admin: 07/23/19 09:33 Dose: 40 mg Sotalol HCl (Betapace -) 80 mg PO BID [facility] Last Admin: 07/23/19 22:14 Dose: 80 mg Thiamine HCl (Vitamin B1 -) 100 mg PO DAILY [facility] Last Admin: 07/23/19 09:33 Dose: 100 mg - Objective Vital Signs: Vital Signs Temperature 98.3 F 07/24/19 06:00 Pulse Rate 96 H 07/24/19 06:00 Respiratory Rate 26 H 07/24/19 06:00 Blood Pressure 94/67 07/24/19 06:00 O2 Sat by Pulse Oximetry (%) 95 07/23/19 20:00 Cardiovascular: Yes: S1, S2 Respiratory: Yes: Diminished, On Venti-Mask, Rhonchi Gastrointestinal: Yes: Normal Bowel Sounds, Soft Labs: CBC, BMP 07/24/19 06:00 07/24/19 06:00 INR, PTT INR 1.69 (0.83-1.09) H 07/23/19 09:14 Assessment/Plan - Problems (1) Acute kidney injury Assessment/Plan: -nephrology consult -Monitor trend -Continue IVF Problems reviewed: Yes Code(s): N17.9 - ACUTE KIDNEY FAILURE, UNSPECIFIED (2) Elevated liver enzymes Assessment/Plan: -2/2 to ischemic hepatitis -Continue IVF -Monitor trend Problems reviewed: Yes Code(s): R74.8 - ABNORMAL LEVELS OF OTHER SERUM ENZYMES (3) Opioid overdose Assessment/Plan: -Nalaxone dc'd as pt's mental status is improving -Neuro check -ICU monitoring Problems reviewed: Yes Code(s): T40.2X1A - POISONING BY OTH OPIOIDS, ACCIDENTAL (UNINTENTIONAL), INIT Qualifiers: Encounter type: initial encounter Injury intent: accidental or unintentional Qualified Code(s): T40.2X1A - Poisoning by other opioids, accidental (unintentional), initial encounter (4) Afib Assessment/Plan: -Chronic -Rate controlled -ICU monitoring -Lovenox Problems reviewed: Yes Code(s): I48.91 - UNSPECIFIED ATRIAL FIBRILLATION (5) SVC syndrome Problems reviewed: Yes Code(s): I87.1 - COMPRESSION OF VEIN (6) Squamous cell lung cancer Assessment/Plan: -Oncology consult -Palliative consult Problems reviewed: Yes Code(s): C34.90 - MALIGNANT NEOPLASM OF UNSP PART OF UNSP BRONCHUS OR LUNG
--- NOTE | 2019-07-24 10:30 | PN ---
Progress Note (short form) - Note Progress Note: Patient seen and examined Opiod overdose Ischemia to liver MIRIAM SCC of lung Last Vital Signs Temp Pulse Resp BP Pulse Ox 98.3 F 95 H 20 95/72 95 07/24/19 06:00 07/24/19 08:00 07/24/19 08:00 07/24/19 08:00 07/23/19 20:00 HEENT: ROASRIO, EOM Intact Oropharynx: No thrush, No mucositis Neck: Supple Nodes: Without adenopathy Cor:sinus tach Lungs: rhonchi, wheezes Abd: Soft, Normal bowel sounds, No organomegaly Ext:No significant edema Skin: No rashes, Integument intact CBC, BMP 07/24/19 06:00 07/24/19 06:00 Abnormal Lab Results 07/23/19 07/24/19 07/24/19 06:48 06:00 06:00 WBC 16.1 H RBC 2.94 L Hgb 9.2 L Hct 28.5 L MCV 97.0 H RDW 21.1 H Absolute Neuts (auto) 13.6 H Neutrophils % 84.4 H Lymphocytes % 5.3 L Lymphocytes % (Manual) 3.0 L Nucleated RBC % 2 H Retic Count 4.98 H Chloride 110 H Anion Gap 4 L BUN 18.7 H Calcium 7.8 L Phosphorus 2.2 L Magnesium 2.5 H AST 1649 H ALT 2173 H Alkaline Phosphatase 134 H Total Protein 6.1 L Albumin 3.0 L Current Medications Generic Name Dose Route Start Last Admin Trade Name Freq PRN Reason Stop Dose Admin Albuterol Sulfate 1 amp 07/23/19 06:05 Ventolin 0.083% Nebulizer Soln - NEB RQID PRN SHORT OF BREATH/WHEEZING Albuterol/Ipratropium 1 amp 07/23/19 08:00 07/24/19 07:40 Duoneb - NEB 1 amp RQID ALONDRA Administration Chlorhexidine Gluconate 1 applic 07/23/19 22:00 07/23/19 22:15 Hibiclens For Decolonization - TP 1 applic HS ALONDRA Administration Diltiazem HCl 120 mg 07/23/19 10:00 07/23/19 12:03 Cardizem Cd - PO 120 mg DAILY ALONDRA Administration Diltiazem HCl 5 mg 07/23/19 10:50 Cardizem Injection - IVPUSH Q4H PRN TACHYCARDIA Enoxaparin Sodium 90 mg 07/23/19 10:00 07/23/19 22:15 Lovenox - SQ 90 mg BID ALONDRA Administration Folic Acid 1 mg 07/23/19 10:00 07/23/19 09:33 Folic Acid - PO 1 mg DAILY ALONDRA Administration Ceftriaxone Sodium 1 gm/ 50 mls @ 100 mls/hr 07/23/19 11:00 07/23/19 12:03 Dextrose IVPB 100 mls/hr DAILY ALONDRA Administration Protocol Multivitamins/Minerals/Vitamin C 1 tab 07/23/19 10:00 07/23/19 09:33 Tab-A-Vit - PO 1 tab DAILY ALONDRA Administration Mupirocin 1 applic 07/23/19 10:00 07/23/19 22:15 Bactroban Ointment (For Decolonization) - NS 07/28/19 09:59 1 applic BID ALONDRA Administration Pantoprazole Sodium 40 mg 07/23/19 10:00 07/23/19 09:33 Protonix - PO 40 mg DAILY ALONDRA Administration Sotalol HCl 80 mg 07/23/19 11:00 07/23/19 22:14 Betapace - PO 80 mg BID ALONDRA Administration Thiamine HCl 100 mg 07/23/19 10:00 07/23/19 09:33 Vitamin B1 - PO 100 mg DAILY ALONDRA Administration Impression: SCC of lung - on gemzar therapy Opiod overdose -s/p naloxone - improved Ischemic liver - AST --->07/10/19----27 07/22/19---1955 ALT---->07/10/19----45 07/24/19---2173 Elevated ferritin ----03/29/19----633 07/23/19----->40,000 History of stent -SVC Pulmonary Embolism MIRIAM--- improved Acute events with liver ischemia and elevated ferritin To continue hydration To add steroids to regimen for rhonchi and wheezing To continue antibiotics
[2019-07-24] MEDS ORDERED: cefTRIAXone SODIUM 1 GM VIAL ONE (10:36)
[2019-07-24] MEDS ORDERED: DEXTROSE 5%-WATER - 50 ML IVPB ONE (10:37)
[2019-07-24] MEDS: PANTOPRAZOLE 40 MG TABLET PO SCH (11:01)
[2019-07-24] MEDS: CEFTRIAXONE 1 GM in DEXTROSE 5%-WATER - 50 ML IVPB SCH (11:01)
[2019-07-24] MEDS: FOLIC ACID 1 MG TABLET (FP) PO SCH (11:01)
[2019-07-24] MEDS: SOTALOL HCL 80 MG TABLET (FP) PO SCH ×2 (11:01→22:14)
[2019-07-24] MEDS: MUPIROCIN 2% TOPICAL OINTMENT FOR DECOLONIZATION NS SCH ×2 (11:01→22:14)
[2019-07-24] MEDS: MULTIVITAMINS (DAILY MVI) TABLET (FP) PO SCH (11:02)
[2019-07-24] MEDS: THIAMINE HCL 100 MG TABLET (FP) PO SCH (11:02)
[2019-07-24] MEDS ORDERED: PT OWN MED DRAWER 7, Y5N ONE (11:03)
[2019-07-24] MEDS: ENOXAPARIN NA (PORCINE) 100 MG/1 ML DISP.SYRIN SQ SCH ×2 (11:17→22:14)
--- NOTE | 2019-07-24 11:58 | PN ---
Teaching Attending Note Name of Resident: Lazaro Jaimes ATTENDING PHYSICIAN STATEMENT I saw and evaluated the patient. I reviewed the resident's note and discussed the case with the resident. I agree with the resident's findings and plan as documented. SUBJECTIVE: Pt seen and examined in the ICU. Remains on ventimask 50% with saturations in low 90s. Mental status remains improved. OBJECTIVE: Vital Signs Period Temp Pulse Resp BP Sys/Gtz Pulse Ox Last 24 Hr 98.0 F-98.6 F 95-113 16-26 94-125/67-86 95 Intake & Output 07/21/19 07/22/19 07/23/19 07/24/19 23:59 23:59 23:59 23:59 Intake Total 1280 200 Balance 1280 200 Weight 113.398 kg 90.174 kg 90.35 kg Gen: NAD at rest Heart: RRR Lung: scattered rhonchi Abd: soft, nontender Ext: no edema CBC, BMP 07/24/19 06:00 07/24/19 06:00 Active Medications Albuterol Sulfate (Ventolin 0.083% Nebulizer Soln -) 1 amp NEB RQID PRN PRN Reason: SHORT OF BREATH/WHEEZING Albuterol/Ipratropium (Duoneb -) 1 amp NEB RQID ALONDRA Last Admin: 07/24/19 07:40 Dose: 1 amp Chlorhexidine Gluconate (Hibiclens For Decolonization -) 1 applic TP HS [facility] Last Admin: 07/23/19 22:15 Dose: 1 applic Diltiazem HCl (Cardizem Cd -) 120 mg PO DAILY [facility] Last Admin: 07/24/19 11:01 Dose: 120 mg Diltiazem HCl (Cardizem Injection -) 5 mg IVPUSH Q4H PRN PRN Reason: TACHYCARDIA Enoxaparin Sodium (Lovenox -) 90 mg SQ BID ALONDRA Last Admin: 07/24/19 11:17 Dose: 90 mg Folic Acid (Folic Acid -) 1 mg PO DAILY ALONDRA Last Admin: 07/24/19 11:01 Dose: 1 mg Ceftriaxone Sodium 1 gm/ (Dextrose) 50 mls @ 100 mls/hr IVPB DAILY ALONDRA; Protocol Last Admin: 07/24/19 11:01 Dose: 100 mls/hr Methylprednisolone Sodium Succinate (Solu-Medrol -) 40 mg IVPUSH Q8H-IV ALONDRA Multivitamins/Minerals/Vitamin C (Tab-A-Vit -) 1 tab PO DAILY [facility] Last Admin: 07/24/19 11:02 Dose: 1 tab Mupirocin (Bactroban Ointment (For Decolonization) -) 1 applic NS BID [facility] Stop: 07/28/19 09:59 Last Admin: 07/24/19 11:01 Dose: 1 applic Pantoprazole Sodium (Protonix -) 40 mg PO DAILY [facility] Last Admin: 07/24/19 11:01 Dose: 40 mg Sotalol HCl (Betapace -) 80 mg PO BID [facility] Last Admin: 07/24/19 11:01 Dose: 80 mg Thiamine HCl (Vitamin B1 -) 100 mg PO DAILY [facility] Last Admin: 07/24/19 11:02 Dose: 100 mg ASSESSMENT AND PLAN: Altered Mental Status improving Acute on Chronic Hypoxic Respiratory Failure Opioid Overdose Elevated LFTs likely Ischemic Injury Acute Kidney Injury Metastatic Squamous Cell Cancer on chemo Acute COPD Exacerbation h/o PE/SVC thrombus Atrial Fibrillation with RVR HTN Hyperlipidemia - O2 to keep SpO2 >90% - IVF - trend LFTs - monitor urine output, creatinine - empiric antibiotics for now - f/u cultures - start IV medrol - inhaled bronchodilators - rate control - continue anticoagulation
--- NOTE | 2019-07-24 12:11 | PN ---
Physical Exam: SUBJECTIVE: Patient seen and examined in the morning. No acute events overnight, no events on cardiac monitoring. Patient denies chest pain, shortness of breath, abdominal pain, nausea, vomiting, and subjective fevers. He felt his pain was controlled overnight. OBJECTIVE: Vital Signs Period Temp Pulse Resp BP Sys/Gtz Pulse Ox Last 24 Hr 98.0 F-98.6 F 95-113 16-26 94-125/67-86 95 GENERAL: The patient is awake, alert, and fully oriented, in no acute distress. HEAD: Normal with no signs of trauma. ventimask in place. EYES: PERRLA,EOMI ENT: Ears normal, nares patent, oropharynx clear without exudates, moist mucous membranes NECK: Trachea midline LUNGS:Wheezes bilaterally. HEART: Distant heart sounds, regular rate and rhythm, no murmurs, rubs or gallops appreciated. ABDOMEN: Soft, nontender abdomen, normoactive bowel sounds. EXTREMITIES: 2+ pulses, warm, well-perfused, no edema. NEUROLOGICAL: Cranial nerves II through XII grossly intact. PSYCH: Normal mood, normal affect. SKIN: Warm, dry, normal turgor, no rashes or lesions noted Laboratory Results - last 24 hr 07/23/19 07/24/19 07/24/19 06:48 06:00 06:00 WBC 16.1 H RBC 2.94 L Hgb 9.2 L Hct 28.5 L MCV 97.0 H MCH 31.4 MCHC 32.4 RDW 21.1 H Plt Count 175 MPV 8.2 Absolute Neuts (auto) 13.6 H Neutrophils % 84.4 H Neutrophils % (Manual) 74.0 D Band Neutrophils % 10.0 Lymphocytes % 5.3 L Lymphocytes % (Manual) 3.0 L Monocytes % 7.7 Monocytes % (Manual) 8 Eosinophils % 2.4 D Eosinophils % (Manual) 0.0 Basophils % 0.2 D Basophils % (Manual) 0.0 Myelocytes % (Man) 0 D Promyelocytes % (Man) 0 Blast Cells % (Manual) 0 Nucleated RBC % 2 H 0 Metamyelocytes 0 Hypochromia 0 Toxic Granulation 1+ Platelet Estimate Normal Platelet Comment Present Polychromasia 1+ Poikilocytosis 1+ Anisocytosis 1+ Microcytosis 1+ Macrocytosis 0 Spherocytes 1+ Tear Drop Cells 1+ [place] Cells 1+ Retic Count 4.98 H Sodium 142 Potassium 4.4 Chloride 110 H Carbon Dioxide 28 Anion Gap 4 L BUN 18.7 H Creatinine 0.9 Est GFR (CKD-EPI)AfAm 104.24 Est GFR (CKD-EPI)NonAf 89.94 Random Glucose 106 Calcium 7.8 L Phosphorus 2.2 L Magnesium 2.5 H Total Bilirubin 0.5 AST 1649 H ALT 2173 H Alkaline Phosphatase 134 H Total Protein 6.1 L Albumin 3.0 L Active Medications Generic Name Dose Route Start Last Admin Trade Name Freq PRN Reason Stop Dose Admin Albuterol Sulfate 1 amp 07/23/19 06:05 Ventolin 0.083% Nebulizer Soln - NEB RQID PRN SHORT OF BREATH/WHEEZING Albuterol/Ipratropium 1 amp 07/23/19 08:00 07/24/19 07:40 Duoneb - NEB 1 amp RQID ALONDRA Administration Chlorhexidine Gluconate 1 applic 07/23/19 22:00 07/23/19 22:15 Hibiclens For Decolonization - TP 1 applic HS ALONDRA Administration Diltiazem HCl 120 mg 07/23/19 10:00 07/24/19 11:01 Cardizem Cd - PO 120 mg DAILY ALONDRA Administration Diltiazem HCl 5 mg 07/23/19 10:50 Cardizem Injection - IVPUSH Q4H PRN TACHYCARDIA Enoxaparin Sodium 90 mg 07/23/19 10:00 07/24/19 11:17 Lovenox - SQ 90 mg BID ALONDRA Administration Folic Acid 1 mg 07/23/19 10:00 07/24/19 11:01 Folic Acid - PO 1 mg DAILY ALONDRA Administration Ceftriaxone Sodium 1 gm/ 50 mls @ 100 mls/hr 07/23/19 11:00 07/24/19 11:01 Dextrose IVPB 100 mls/hr DAILY ALONDRA Administration Protocol Methylprednisolone Sodium Succinate 40 mg 07/24/19 11:15 Solu-Medrol - IVPUSH Q8H-IV ALONDRA Multivitamins/Minerals/Vitamin C 1 tab 07/23/19 10:00 07/24/19 11:02 Tab-A-Vit - PO 1 tab DAILY ALONDRA Administration Mupirocin 1 applic 07/23/19 10:00 07/24/19 11:01 Bactroban Ointment (For Decolonization) - NS 07/28/19 09:59 1 applic BID ALONDRA Administration Pantoprazole Sodium 40 mg 07/23/19 10:00 07/24/19 11:01 Protonix - PO 40 mg DAILY ALONDRA Administration Sotalol HCl 80 mg 07/23/19 11:00 07/24/19 11:01 Betapace - PO 80 mg BID ALONDRA Administration Thiamine HCl 100 mg 07/23/19 10:00 07/24/19 11:02 Vitamin B1 - PO 100 mg DAILY ALONDRA Administration ASSESSMENT/PLAN: 64 M with PMH of Squamous cell lung cancer (Carbo/Taxol chemotherapy) COPD (3L home O2), LISA, PE, AFib, HTN, HLD, SVC syndrome s/p stent, who was brought in by EMS after having a desaturation episode likely secondary to overdosing on pain management medications. Neuro -AMS and oxygen desaturation on admission -Currently AAOx3 -Naloxene elba d/jaimie -Confirmed oxycodone and morphine with Dr. Hathaway. Will continue as needed Cardio -Hx of Afib, HTN, HLD, SVC syndrome -Continue home Cardizem -Cardizem PRN -Sotalol, statin resumed -[id number] 3, continue Lovenox Pulm -Hx of Squamous cell lung cancer (on Carbo/Taxol Chemotherapy) -COPD (3L home O2) -LISA not on CPAP at home -Continue bronchodilators -Medrol 40 Q8H -Ventimask -Pulmonology and Heme/Onc consulted GI -Elevated LFTS -Likely due to dehydration, continuing fluids -GI consulted, appreciate recs -RUQ US negative Renal -MIRIAM -Kidney US negative -Continue IV hydration -Nephrology consulted, appreciate recs ID -Leukocytosis, possible left lower lobe consolidation -Urinalysis and blood culture pending -Continue Empiric Ceftriaxone Heme/Onc -Macrocytic anemia -Ferritin high -B12 and folate high F: LR@ 125 E: Monitor CMP N: Clear liquid diet DVT: Lovenox Lines: Peripheral IV Dispo: Transfer to telemetry Visit type - Emergency Visit Emergency Visit: Yes ED Registration Date: 07/22/19 Care time: The patient presented to the Emergency Department on the above date and was hospitalized for further evaluation of their emergent condition. - New Patient This patient is new to me today: Yes Date on this admission: 07/24/19 - Critical Care Critical Care patient: Yes Total Critical Care Time (in minutes): 45 Critical Care Statement: The care of this patient involved high complexity decision making to prevent further life threatening deterioration of the patient's condition and/or to evaluate & treat vital organ system(s) failure or risk of failure. ATTENDING PHYSICIAN STATEMENT I saw and evaluated the patient. I reviewed the resident's note and discussed the case with the resident. I agree with the resident's findings and plan as documented. SUBJECTIVE: OBJECTIVE: ASSESSMENT AND PLAN:
[2019-07-24] MEDS: methylPREDNISolone NA SUCC 40 MG/1 ML VIAL IVPUSH SCH ×2 (13:00→18:04)
[2019-07-24] MEDS ORDERED: KETOROLAC TROMETHAMINE 30 MG/1 ML VIAL IVPUSH PRN (13:17)
[2019-07-24] MEDS ORDERED: oxyCODONE HCL 5 MG TABLET PO PRN ×2 (13:18→13:19)
--- NOTE | 2019-07-24 13:38 | CONSULT ---
Consult Consult Specialty:: Nephrology Reason for Consultation:: MIRIAM - History of Present Illness Chief Complaint: unresponsive History of Present Illness: Pt is a 64 year old male with pmhx of htn, hld, lung cncer, copd, rose mary -fib, pulm emboism, svc syncorme who was found to be unresponsive. He was also found to be in MIRIAM. His renal function has been improving with fluids. He was started on nalaxone and his mental status improved. He is now awake and alert. he denies shortness of breath. - History Source History Provided By: Patient, Medical Record - Past Medical History Cardio/Vascular: Yes: AFIB, HTN, Other (smoker with lung mass) Pulmonary: Yes: COPD - Past Surgical History Past Surgical History: Yes: Cholecystectomy, Hernia Repair - Alcohol/Substance Use Hx Alcohol Use: No - Smoking History Smoking history: Unknown if ever smoked Have you smoked in the past 12 months: No Aproximately how many cigarettes per day: 5 If you are a former smoker, when did you quit?: 2018 - Social History Usual Living Arrangement: Alone ADL: Independent History of Recent Travel: No Home Medications - Allergies Allergies/Adverse Reactions: Allergies Allergy/AdvReac Type Severity Reaction Status Date / Time No Known Allergies Allergy Verified 07/22/19 21:09 - Home Medications Home Medications: Ambulatory Orders Albuterol Sulfate [Proventil HFA Inhaler -] 1 - 2 inh PO QID 02/22/18 Sotalol HCl [Betapace -] 80 mg PO BID tablet 04/29/18 Tiotropium [place] [Spiriva Respimat] 2 puff IH DAILY inhaler 04/29/18 Diltiazem Cd [Cardizem Cd -] 120 mg PO DAILY #30 cap.cd.24h 05/05/18 Oxycodone HCl 30 mg PO Q6H PRN 08/09/18 Ondansetron HCl [Zofran] 8 mg PO TID 11/24/18 Morphine *Sr* [MS Contin -] 30 mg PO Q12H 11/25/18 Enoxaparin [Lovenox -] 90 mg SQ BID 03/28/19 Ergocalciferol (Vitamin D2) [Vitamin D2] 50,000 unit PO WEEKLY 03/28/19 Gabapentin 300 mg PO BID 03/28/19 Pantoprazole Sodium [Protonix] 40 mg PO DAILY 03/28/19 Pravastatin Sodium [Pravachol] 40 mg PO DAILY 03/28/19 Tiotropium Br/Olodaterol HCl [Stiolto Respimat Inhal [place]] 1 puff BID 03/28/19 Zolpidem Tartrate [Ambien] 10 mg PO HS 03/28/19 Lactobacillus Acidophilus [Bacid -] 1 tab PO DAILY #14 tab 04/06/19 Family Medical History Family History: Denies Review of Systems - Review of Systems Constitutional: reports: Malaise Eyes: reports: No Symptoms HENT: reports: No Symptoms Neck: reports: No Symptoms Cardiovascular: reports: No Symptoms Respiratory: reports: SOB on Exertion Gastrointestinal: reports: No Symptoms Genitourinary: reports: No Symptoms Musculoskeletal: reports: No Symptoms Integumentary: reports: No Symptoms Neurological: reports: No Symptoms Endocrine: reports: No Symptoms Physical Exam Vital Signs: Vital Signs Temperature 98.0 F 07/24/19 10:00 Pulse Rate 101 H 07/24/19 12:00 Respiratory Rate 20 07/24/19 12:00 Blood Pressure 96/78 07/24/19 12:00 O2 Sat by Pulse Oximetry (%) 95 07/24/19 09:00 Constitutional: Yes: Calm Eyes: Yes: Conjunctiva Clear HENT: Yes: Atraumatic Neck: Yes: Supple Cardiovascular: Yes: S1, S2 Respiratory: Yes: On Venti-Mask Gastrointestinal: Yes: Soft Renal/: Yes: WNL Musculoskeletal: Yes: WNL Edema: No Neurological: Yes: Oriented Psychiatric: Yes: Oriented Labs: CBC, BMP 07/24/19 06:00 07/24/19 06:00 Imaging - Results Ultrasound: Report Reviewed Problem List - Problems (1) Acute kidney injury Code(s): N17.9 - ACUTE KIDNEY FAILURE, UNSPECIFIED (2) Elevated liver enzymes Code(s): R74.8 - ABNORMAL LEVELS OF OTHER SERUM ENZYMES (3) Opioid overdose Code(s): T40.2X1A - POISONING BY OTH OPIOIDS, ACCIDENTAL (UNINTENTIONAL), INIT Qualifiers: Encounter type: initial encounter Injury intent: accidental or unintentional Qualified Code(s): T40.2X1A - Poisoning by other opioids, accidental (unintentional), initial encounter Assessment/Plan Current Medications Generic Name Dose Route Start Last Admin Trade Name Freq PRN Reason Stop Dose Admin Albuterol Sulfate 1 amp 07/23/19 06:05 Ventolin 0.083% Nebulizer Soln - NEB RQID PRN SHORT OF BREATH/WHEEZING Albuterol/Ipratropium 1 amp 07/23/19 08:00 07/24/19 11:20 Duoneb - NEB 1 amp RQID ALONDRA Administration Chlorhexidine Gluconate 1 applic 07/23/19 22:00 07/23/19 22:15 Hibiclens For Decolonization - TP 1 applic HS ALONDRA Administration Diltiazem HCl 120 mg 07/23/19 10:00 07/24/19 11:01 Cardizem Cd - PO 120 mg DAILY ALONDRA Administration Diltiazem HCl 5 mg 07/23/19 10:50 Cardizem Injection - IVPUSH Q4H PRN TACHYCARDIA Enoxaparin Sodium 90 mg 07/23/19 10:00 07/24/19 11:17 Lovenox - SQ 90 mg BID ALONDRA Administration Folic Acid 1 mg 07/23/19 10:00 07/24/19 11:01 Folic Acid - PO 1 mg DAILY ALONDRA Administration Ceftriaxone Sodium 1 gm/ 50 mls @ 100 mls/hr 07/23/19 11:00 07/24/19 11:01 Dextrose IVPB 100 mls/hr DAILY ALONDRA Administration Protocol Methylprednisolone Sodium Succinate 40 mg 07/24/19 11:15 07/24/19 13:00 Solu-Medrol - IVPUSH 40 mg Q8H-IV ALONDRA Administration Morphine Sulfate 30 mg 07/24/19 22:00 Ms Contin - PO BID [facility] Multivitamins/Minerals/Vitamin C 1 tab 07/23/19 10:00 07/24/19 11:02 Tab-A-Vit - PO 1 tab DAILY ALONDRA Administration Mupirocin 1 applic 07/23/19 10:00 07/24/19 11:01 Bactroban Ointment (For Decolonization) - NS 07/28/19 09:59 1 applic BID ALONDRA Administration Oxycodone HCl 30 mg 07/24/19 13:18 Roxicodone - PO Q6H PRN PAIN LEVEL 7 - 10 Pantoprazole Sodium 40 mg 07/23/19 10:00 07/24/19 11:01 Protonix - PO 40 mg DAILY ALONDRA Administration Sotalol HCl 80 mg 07/23/19 11:00 07/24/19 11:01 Betapace - PO 80 mg BID ALONDRA Administration Thiamine HCl 100 mg 07/23/19 10:00 07/24/19 11:02 Vitamin B1 - PO 100 mg DAILY ALONDRA Administration Impression 1. opioid overdose 2. miriam 3. transaminitis 4. lung cancer 5. copd 6. htn 7. hld Plan - renal function improving - likely pre-renal disease - repeat labs in am - avoid nsaids - replace phos
[2019-07-24] MEDS: NAPH,MB-DB/K PH,MBDB POWDER PACKET PO SCH ×2 (15:27→22:13)
[2019-07-24 21:07] LABS: HEP B CORE AB, TOT Negative (Negative)
[2019-07-24] MEDS ORDERED: morphine SO4 SUSTAINED ACTING 30 MG TABLET.SA PO SCH (22:00)
[2019-07-24] MEDS: CHLORHEXIDINE GLUCONATE 4% CLEANSER FOR DECOLONIZATION TP SCH (22:14)
[2019-07-25] MEDS ORDERED: SODIUM CHLORIDE 1,000 ML IV SCH ×2 (02:30→08:32)
[2019-07-25] MEDS: methylPREDNISolone NA SUCC 40 MG/1 ML VIAL IVPUSH SCH ×3 (03:30→17:27)
[2019-07-25] MEDS: NAPH,MB-DB/K PH,MBDB POWDER PACKET PO SCH (05:34)
[2019-07-25 07:17] LABS: BASO % 0.2 % (0-2.0); HEMATOCRIT 29.9 % (35.4-49); HEMOGLOBIN 9.6 GM/dL (11.7-16.9); LYMPH % 2.2 % (8-40); MCH 31.3 pg (25.7-33.7); MEAN CELL VOLUME 97.6 fl (80-96); MEAN PLT VOLUME 8.4 fl (7.5-11.1); MONO % 5.5 % (3.8-10.2); NEUT % 92.1 % (42.8-82.8); PLATELET COUNT 226 K/MM3 (134-434); RBC 3.07 M/mm3 (4.00-5.60); WHITE BLOOD COUNT 27.2 K/mm3 (4.0-10.0)
--- NOTE | 2019-07-25 07:56 | PN.GI ---
GI Progress Note Subjective: Patient appears more lethargic but arouseable to verbal and tactile stimuli. Denies nausea, vomiting, abdominal pain, diarrhea, constipation, rectal bleeding or melena. Pending LFT results from this morning labs. - Objective Vital Signs: Vital Signs Temperature 98.2 F 07/25/19 06:00 Pulse Rate 86 07/25/19 06:00 Respiratory Rate 07/25/19 06:00 Blood Pressure 95/60 07/25/19 06:00 O2 Sat by Pulse Oximetry (%) 96 07/24/19 21:00 Constitutional: No Distress, Calm Eyes: Yes: Conjunctiva Clear HENT: Yes: Atraumatic Cardiovascular: Yes: Regular Rate and Rhythm Respiratory: Yes: Regular, CTA Bilaterally, On Venti-Mask Gastrointestinal Inspection: Yes: WNL. No: Ascites, Distention, Hernia, Scars, Other ...Auscultate: Yes: Normoactive Bowel Sounds. No: Hyperactive Bowel Sounds, Hypoactive Bowel Sounds, No Bowel Sounds, Other ...Palpate: Yes: Soft. No: Firm/Rigid, Guarding, Hepatomegaly, Mass, Pulsatile Mass, Splenomegaly, Tenderness, Tenderness, Epigastium, Tenderness, Rebound, Other ...Percussion: Yes: Tympanitic. No: Dullness, Fluid Wave, Other Neurological: Yes: Alert Psychiatric: Yes: Alert Labs: CBC, BMP 07/25/19 06:53 INR, PTT INR 1.69 (0.83-1.09) H 07/23/19 09:14 Home Medication List Medication Instructions Recorded Confirmed Type Albuterol Sulfate [Proventil HFA 1 - 2 inh PO QID 02/22/18 07/22/19 History Inhaler -] Oxycodone HCl 30 mg PO Q6H PRN 08/09/18 07/22/19 History Ondansetron HCl [Zofran] 8 mg PO TID 11/24/18 07/22/19 History Morphine *Sr* [MS Contin -] 30 mg PO Q12H 11/25/18 07/22/19 History Enoxaparin [Lovenox -] 90 mg SQ BID 03/28/19 07/23/19 History Ergocalciferol (Vitamin D2) 50,000 unit PO WEEKLY 03/28/19 07/22/19 History [Vitamin D2] Gabapentin 300 mg PO BID 03/28/19 07/22/19 History Pantoprazole Sodium [Protonix] 40 mg PO DAILY 03/28/19 07/22/19 History Pravastatin Sodium [Pravachol] 40 mg PO DAILY 03/28/19 07/22/19 History Tiotropium Br/Olodaterol HCl 1 puff BID 03/28/19 07/22/19 History [Stiolto Respimat Inhal [place]] Zolpidem Tartrate [Ambien] 10 mg PO HS 03/28/19 07/22/19 History Active Medications Generic Name Dose Route Start Last Admin Trade Name Freq PRN Reason Stop Dose Admin Albuterol Sulfate 1 amp 07/23/19 06:05 Ventolin 0.083% Nebulizer Soln - NEB RQID PRN SHORT OF BREATH/WHEEZING Albuterol/Ipratropium 1 amp 07/23/19 08:00 07/24/19 20:45 Duoneb - NEB 1 amp RQID ALONDRA Administration Chlorhexidine Gluconate 1 applic 07/23/19 22:00 07/24/19 22:14 Hibiclens For Decolonization - TP Not Given HS ALONDRA Diltiazem HCl 120 mg 07/23/19 10:00 07/24/19 11:01 Cardizem Cd - PO 120 mg DAILY ALONDRA Administration Diltiazem HCl 5 mg 07/23/19 10:50 Cardizem Injection - IVPUSH Q4H PRN TACHYCARDIA Enoxaparin Sodium 90 mg 07/23/19 10:00 07/24/19 22:14 Lovenox - SQ 90 mg BID ALONDRA Administration Folic Acid 1 mg 07/23/19 10:00 07/24/19 11:01 Folic Acid - PO 1 mg DAILY ALONDRA Administration Ceftriaxone Sodium 1 gm/ 50 mls @ 100 mls/hr 07/23/19 11:00 07/24/19 11:01 Dextrose IVPB 100 mls/hr DAILY ALONDRA Administration Protocol Sodium Chloride 1,000 mls @ 42 mls/hr 07/25/19 02:30 07/25/19 02:47 Normal Saline - IV 42 mls/hr ASDIR ALONDRA Administration Methylprednisolone Sodium Succinate 40 mg 07/24/19 11:15 07/25/19 03:30 Solu-Medrol - IVPUSH 40 mg Q8H-IV ALONDRA Administration Morphine Sulfate 30 mg 07/24/19 22:00 07/24/19 22:13 Ms Contin - PO 30 mg BID ALONDRA Administration Multivitamins/Minerals/Vitamin C 1 tab 07/23/19 10:00 07/24/19 11:02 Tab-A-Vit - PO 1 tab DAILY ALONDRA Administration Mupirocin 1 applic 07/23/19 10:00 07/24/19 22:14 Bactroban Ointment (For Decolonization) - NS 07/28/19 09:59 Not Given BID ALONDRA Oxycodone HCl 30 mg 07/24/19 13:18 07/24/19 22:15 Roxicodone - PO 30 mg Q6H PRN Administration PAIN LEVEL 7 - 10 Pantoprazole Sodium 40 mg 07/23/19 10:00 07/24/19 11:01 Protonix - PO 40 mg DAILY ALONDRA Administration Potassium Phos/Sodium Phos 1 packet 07/24/19 14:00 07/25/19 05:34 Phos-Nak Packet - PO 07/25/19 22:01 1 packet TID ALONDRA Administration Sotalol HCl 80 mg 07/23/19 11:00 07/24/19 22:14 Betapace - PO 80 mg BID ALONDRA Administration Thiamine HCl 100 mg 07/23/19 10:00 07/24/19 11:02 Vitamin B1 - PO 100 mg DAILY ALONDRA Administration Problem List - Problems (1) Hepatocellular injury Assessment/Plan: r> continue IV hydration trend LFTS Code(s): K76.9 - LIVER DISEASE, UNSPECIFIED
[2019-07-25] MEDS: ALBUTEROL SO4 2.5/IPRATROPIUM 0.5 INH SOL 3 ML VIAL.NEB. NEB SCH ×4 (08:04→21:05)
[2019-07-25 08:14] LABS: ALBUMIN 3.2 g/dl (3.4-5.0); BILIRUBIN,TOTAL 0.3 mg/dL (0.2-1); BLOOD UREA NITROGEN 24.4 mg/dL (7-18); CALCIUM 7.9 mg/dL (8.5-10.1); CREATININE 1.4 mg/dL (0.55-1.3); MAGNESIUM 2.3 mg/dL (1.8-2.4); PHOSPHOROUS 4.7 mg/dL (2.5-4.9); POTASSIUM 5.3 mmol/L (3.5-5.1); TOT PROT 6.6 g/dl (6.4-8.2)
--- NOTE | 2019-07-25 08:37 | PN ---
Progress Note, Physician - Current Medication List Current Medications: Active Medications Albuterol Sulfate (Ventolin 0.083% Nebulizer Soln -) 1 amp NEB RQID PRN PRN Reason: SHORT OF BREATH/WHEEZING Albuterol/Ipratropium (Duoneb -) 1 amp NEB RQID [facility] Last Admin: 07/25/19 08:04 Dose: 1 amp Chlorhexidine Gluconate (Hibiclens For Decolonization -) 1 applic TP HS [facility] Last Admin: 07/24/19 22:14 Dose: Not Given Diltiazem HCl (Cardizem Cd -) 120 mg PO DAILY [facility] Last Admin: 07/24/19 11:01 Dose: 120 mg Diltiazem HCl (Cardizem Injection -) 5 mg IVPUSH Q4H PRN PRN Reason: TACHYCARDIA Enoxaparin Sodium (Lovenox -) 90 mg SQ BID [facility] Last Admin: 07/24/19 22:14 Dose: 90 mg Folic Acid (Folic Acid -) 1 mg PO DAILY [facility] Last Admin: 07/24/19 11:01 Dose: 1 mg Ceftriaxone Sodium 1 gm/ (Dextrose) 50 mls @ 100 mls/hr IVPB DAILY [facility]; Protocol Last Admin: 07/24/19 11:01 Dose: 100 mls/hr Methylprednisolone Sodium Succinate (Solu-Medrol -) 40 mg IVPUSH Q8H-IV [facility] Last Admin: 07/25/19 03:30 Dose: 40 mg Morphine Sulfate (Ms Contin -) 30 mg PO BID [facility] Last Admin: 07/24/19 22:13 Dose: 30 mg Multivitamins/Minerals/Vitamin C (Tab-A-Vit -) 1 tab PO DAILY [facility] Last Admin: 07/24/19 11:02 Dose: 1 tab Mupirocin (Bactroban Ointment (For Decolonization) -) 1 applic NS BID [facility] Stop: 07/28/19 09:59 Last Admin: 07/24/19 22:14 Dose: Not Given Oxycodone HCl (Roxicodone -) 30 mg PO Q6H PRN PRN Reason: PAIN LEVEL 7 - 10 Last Admin: 07/24/19 22:15 Dose: 30 mg Pantoprazole Sodium (Protonix -) 40 mg PO DAILY [facility] Last Admin: 07/24/19 11:01 Dose: 40 mg Sodium Zirconium Cyclosilicate (Lokelma) 10 gm PO DAILY [facility] Stop: 07/25/19 10:01 Sotalol HCl (Betapace -) 80 mg PO BID [facility] Last Admin: 07/24/19 22:14 Dose: 80 mg Thiamine HCl (Vitamin B1 -) 100 mg PO DAILY [facility] Last Admin: 07/24/19 11:02 Dose: 100 mg - Objective Vital Signs: Vital Signs Temperature 98.2 F 07/25/19 06:00 Pulse Rate 86 07/25/19 06:00 Respiratory Rate 07/25/19 06:00 Blood Pressure 95/60 07/25/19 06:00 O2 Sat by Pulse Oximetry (%) 96 07/24/19 21:00 Cardiovascular: Yes: S1, S2 Respiratory: Yes: Regular, CTA Bilaterally Gastrointestinal: Yes: Normal Bowel Sounds, Soft Neurological: Yes: Lethargy, Weakness Labs: CBC, BMP 07/25/19 06:53 07/25/19 06:53 INR, PTT INR 1.69 (0.83-1.09) H 07/23/19 09:14 Assessment/Plan - Problems (1) Acute kidney injury Assessment/Plan: -nephrology consult -Monitor trend -Continue IVF Problems reviewed: Yes Code(s): N17.9 - ACUTE KIDNEY FAILURE, UNSPECIFIED (2) Elevated liver enzymes Assessment/Plan: -2/2 to ischemic hepatitis -Continue IVF -Monitor trend Problems reviewed: Yes Code(s): R74.8 - ABNORMAL LEVELS OF OTHER SERUM ENZYMES (3) Opioid overdose Assessment/Plan: -Nalaxone dc'd as pt's mental status is improving -Neuro check -ICU monitoring -BACK ON PAIN MEDS--USING MORPHINE AND OXYCODONE FOR PAIN BUT GETTING LETHARGIC- -AWAIT PAIN CONSULT Problems reviewed: Yes Code(s): T40.2X1A - POISONING BY OTH OPIOIDS, ACCIDENTAL (UNINTENTIONAL), INIT Qualifiers: Encounter type: initial encounter Injury intent: accidental or unintentional Qualified Code(s): T40.2X1A - Poisoning by other opioids, accidental (unintentional), initial encounter (4) Afib Assessment/Plan: -Chronic -Rate controlled -ICU monitoring -Lovenox Problems reviewed: Yes Code(s): I48.91 - UNSPECIFIED ATRIAL FIBRILLATION (5) SVC syndrome Problems reviewed: Yes Code(s): I87.1 - COMPRESSION OF VEIN (6) Squamous cell lung cancer Assessment/Plan: -Oncology consult -Palliative consult Problems reviewed: Yes Code(s): C34.90 - MALIGNANT NEOPLASM OF UNSP PART OF UNSP BRONCHUS OR LUNG
[2019-07-25] MEDS: SODIUM CHLORIDE 1,000 ML IV SCH (09:05)
[2019-07-25] MEDS ORDERED: SODIUM ZIRCONIUM CYCLOSILICATE (LOKELMA) 5 GM PACKET PO SCH (10:00)
[2019-07-25 10:06] LABS: IMMUNOGLOBULIN D < 1.28 mg/dL (<14.11)
--- NOTE | 2019-07-25 10:34 | PN ---
Physical Exam: SUBJECTIVE: Patient seen and examined lethargic sleepy , AAOx2 no time had one BM yesterday denies any pain nurse is trying to reach Dr bullard for pain managemental OBJECTIVE: Vital Signs Period Temp Pulse Resp BP Sys/Gtz Pulse Ox Last 24 Hr 97.2 F-98.2 F 70-101 15-20 75-106/48-79 91-96 GENERAL: AAOx2 , lethargic sleepy on venti mask HEAD: NC/AT ENT: MMM no oral thrush NECK: supple. no lymphadenoapthy LUNGS: very weak inspiratory effort , some wheezing HEART: sinus tachy, S1, S2 without murmur, rub or gallop. ABDOMEN: Soft, nontender, nondistended, normoactive bowel sounds, EXTREMITIES: 2+ pulses, warm, well-perfused, no edema. NEUROLOGICAL: no focal deficit , lethargic , sleepy no breast mass palpated nodes not enlarged Laboratory Results - last 24 hr 07/23/19 07/23/19 07/23/19 06:48 06:48 06:48 WBC RBC Hgb Hct MCV MCH MCHC RDW Plt Count MPV Absolute Neuts (auto) Neutrophils % Lymphocytes % Monocytes % Eosinophils % Basophils % Nucleated RBC % Sodium Potassium Chloride Carbon Dioxide Anion Gap BUN Creatinine Est GFR (CKD-EPI)AfAm Est GFR (CKD-EPI)NonAf Random Glucose Calcium Phosphorus Magnesium Transferrin 198 L Total Bilirubin AST ALT Alkaline Phosphatase LD Total Creatine Kinase Total Protein Albumin IgD < 1.28 Hep A IgM Ab Confirm Negative Hepatitis A Ab Total Positive H Hep Bs Antigen Negative Hep Bs Antibody Non reactive Hep B Core Total Ab Negative Hep B Core IgM Ab Negative Hepatitis Be Antibody Negative Hepatitis Be Antigen Negative Negative 07/25/19 07/25/19 06:53 06:53 WBC 27.2 H RBC 3.07 L Hgb 9.6 L Hct 29.9 L MCV 97.6 H MCH 31.3 MCHC 32.0 RDW 21.0 H Plt Count 226 D MPV 8.4 Absolute Neuts (auto) 25.1 H Neutrophils % 92.1 H Lymphocytes % 2.2 L D Monocytes % 5.5 Eosinophils % 0.0 D Basophils % 0.2 Nucleated RBC % 1 H Sodium 140 Potassium 5.3 H Chloride 107 Carbon Dioxide 28 Anion Gap 5 L BUN 24.4 H Creatinine 1.4 H Est GFR (CKD-EPI)AfAm 61.10 Est GFR (CKD-EPI)NonAf 52.72 Random Glucose 126 H Calcium 7.9 L Phosphorus 4.7 Magnesium 2.3 Transferrin Total Bilirubin 0.3 AST 1564 H ALT 2597 H Alkaline Phosphatase 155 H LD Total 1316 H Creatine Kinase 63 Total Protein 6.6 Albumin 3.2 L IgD Hep A IgM Ab Confirm Hepatitis A Ab Total Hep Bs Antigen Hep Bs Antibody Hep B Core Total Ab Hep B Core IgM Ab Hepatitis Be Antibody Hepatitis Be Antigen Active Medications Generic Name Dose Route Start Last Admin Trade Name Freq PRN Reason Stop Dose Admin Albuterol Sulfate 1 amp 07/23/19 06:05 Ventolin 0.083% Nebulizer Soln - NEB RQID PRN SHORT OF BREATH/WHEEZING Albuterol/Ipratropium 1 amp 07/23/19 08:00 07/25/19 08:04 Duoneb - NEB 1 amp RQID ALONDRA Administration Chlorhexidine Gluconate 1 applic 07/23/19 22:00 07/24/19 22:14 Hibiclens For Decolonization - TP Not Given HS ALONDRA Diltiazem HCl 120 mg 07/23/19 10:00 07/24/19 11:01 Cardizem Cd - PO 120 mg DAILY ALONDRA Administration Diltiazem HCl 5 mg 07/23/19 10:50 Cardizem Injection - IVPUSH Q4H PRN TACHYCARDIA Enoxaparin Sodium 90 mg 07/23/19 10:00 07/24/19 22:14 Lovenox - SQ 90 mg BID ALONDRA Administration Folic Acid 1 mg 07/23/19 10:00 07/24/19 11:01 Folic Acid - PO 1 mg DAILY ALONDRA Administration Ceftriaxone Sodium 1 gm/ 50 mls @ 100 mls/hr 07/23/19 11:00 07/24/19 11:01 Dextrose IVPB 100 mls/hr DAILY ALONDRA Administration Protocol Sodium Chloride 1,000 mls @ 125 mls/hr 07/25/19 08:37 Normal Saline - IV ASDIR ALONDRA Methylprednisolone Sodium Succinate 40 mg 07/24/19 11:15 07/25/19 03:30 Solu-Medrol - IVPUSH 40 mg Q8H-IV ALONDRA Administration Morphine Sulfate 30 mg 07/24/19 22:00 07/24/19 22:13 Ms Contin - PO 30 mg BID ALONDRA Administration Multivitamins/Minerals/Vitamin C 1 tab 07/23/19 10:00 07/24/19 11:02 Tab-A-Vit - PO 1 tab DAILY ALONDRA Administration Mupirocin 1 applic 07/23/19 10:00 07/24/19 22:14 Bactroban Ointment (For Decolonization) - NS 07/28/19 09:59 Not Given BID ALONDRA Oxycodone HCl 30 mg 07/24/19 13:18 07/24/19 22:15 Roxicodone - PO 30 mg Q6H PRN Administration PAIN LEVEL 7 - 10 Pantoprazole Sodium 40 mg 07/23/19 10:00 07/24/19 11:01 Protonix - PO 40 mg DAILY ALONDRA Administration Sotalol HCl 80 mg 07/23/19 11:00 07/24/19 22:14 Betapace - PO 80 mg BID ALONDRA Administration Thiamine HCl 100 mg 07/23/19 10:00 07/24/19 11:02 Vitamin B1 - PO 100 mg DAILY ALONDRA Administration CBC, BMP 07/25/19 06:53 07/25/19 06:53 ASSESSMENT/PLAN: # SCC lung on gemzar therapy on venti mask # worsening leuckocytosis , H/H stable # opioid overdose S/P naloxone , consult pain management #MIRIAM # transaminitis 2/2 ischemic liver injury , trend AST, ALT , GI on board # copd # HTN #HLD # Elevated ferritin # H/O stent SVC # PE conr lovenox 90 BID SQ cont abx cont steroids cont hydration nurse called pain management Dr bullard Will check NH3 level and begin lactulose Hyperkalemia per primary team constipation consider add miralax and senna as pt is on high dose opioids Visit type - Emergency Visit Emergency Visit: Yes ED Registration Date: 07/22/19 Care time: The patient presented to the Emergency Department on the above date and was hospitalized for further evaluation of their emergent condition. - New Patient This patient is new to me today: Yes Date on this admission: 07/25/19 - Critical Care Critical Care patient: No - Discharge Referral Referred to [facility] No ATTENDING PHYSICIAN STATEMENT I saw and evaluated the patient. I reviewed the resident's note and discussed the case with the resident. I agree with the resident's findings and plan as documented. SUBJECTIVE: OBJECTIVE: ASSESSMENT AND PLAN:
[2019-07-25] MEDS ORDERED: DEXTROSE 5%-WATER - 50 ML IVPB ONE (10:46)
[2019-07-25] MEDS ORDERED: cefTRIAXone SODIUM 1 GM VIAL ONE (10:46)
[2019-07-25] MEDS: CEFTRIAXONE 1 GM in DEXTROSE 5%-WATER - 50 ML IVPB SCH (10:56)
[2019-07-25] MEDS: MUPIROCIN 2% TOPICAL OINTMENT FOR DECOLONIZATION NS SCH ×2 (11:00→22:18)
[2019-07-25 11:28] LABS: ANISOCYTOSIS 1+; MACROCYTOSIS 1+; PLATELET ESTIMATE NORMAL
[2019-07-25 11:47] LABS: COCAINE, UR NEGATIVE ng/ml (CUTOFF=300); PHENCYCLIDINE,URINE NEGATIVE ng/ml (CUTOFF=25); URINE AMPHETAMINES NEGATIVE ng/ml (CUTOFF=500); URINE BARBITURATES NEGATIVE ng/ml (CUTOFF=200); URINE BENZODIAZEPINES NEGATIVE ng/ml (CUTOFF=200)
--- NOTE | 2019-07-25 11:47 | CON.PSY ---
Psychiatry Consult Chief Complaint: I am not depressed but I am in pain. 64 jl old male with Sqamous Cell Ca and opiate dependency and abuse seen for Psych eval. patient denies any ongoing Psych treatment. Symptoms: reports: Decreased Energy - Previous Psychiatric Treatment Outpatient: More than 6 mos ago Inpatient: None - Previous Substance Abuse Treatment Outpatient: None Inpatient: None - Reason for Previous Treatment Reason for Previous Treatment: Prescription Drug - Current Medications Current Medications: Active Medications Albuterol Sulfate (Ventolin 0.083% Nebulizer Soln -) 1 amp NEB RQID PRN PRN Reason: SHORT OF BREATH/WHEEZING Albuterol/Ipratropium (Duoneb -) 1 amp NEB RQID [facility] Last Admin: 07/25/19 08:04 Dose: 1 amp Chlorhexidine Gluconate (Hibiclens For Decolonization -) 1 applic TP HS [facility] Last Admin: 07/24/19 22:14 Dose: Not Given Diltiazem HCl (Cardizem Cd -) 120 mg PO DAILY [facility] Last Admin: 07/24/19 11:01 Dose: 120 mg Diltiazem HCl (Cardizem Injection -) 5 mg IVPUSH Q4H PRN PRN Reason: TACHYCARDIA Enoxaparin Sodium (Lovenox -) 90 mg SQ BID [facility] Last Admin: 07/24/19 22:14 Dose: 90 mg Folic Acid (Folic Acid -) 1 mg PO DAILY [facility] Last Admin: 07/24/19 11:01 Dose: 1 mg Ceftriaxone Sodium 1 gm/ (Dextrose) 50 mls @ 100 mls/hr IVPB DAILY [facility]; Protocol Last Admin: 07/25/19 10:56 Dose: 100 mls/hr Sodium Chloride (Normal Saline -) 1,000 mls @ 125 mls/hr IV ASDIR [facility] Last Admin: 07/25/19 09:05 Dose: 125 mls/hr Methylprednisolone Sodium Succinate (Solu-Medrol -) 40 mg IVPUSH Q8H-IV [facility] Last Admin: 07/25/19 10:56 Dose: 40 mg Morphine Sulfate (Ms Contin -) 30 mg PO BID [facility] Last Admin: 07/24/19 22:13 Dose: 30 mg Multivitamins/Minerals/Vitamin C (Tab-A-Vit -) 1 tab PO DAILY [facility] Last Admin: 07/24/19 11:02 Dose: 1 tab Mupirocin (Bactroban Ointment (For Decolonization) -) 1 applic NS BID [facility] Stop: 07/28/19 09:59 Last Admin: 07/24/19 22:14 Dose: Not Given Oxycodone HCl (Roxicodone -) 30 mg PO Q6H PRN PRN Reason: PAIN LEVEL 7 - 10 Last Admin: 07/24/19 22:15 Dose: 30 mg Pantoprazole Sodium (Protonix -) 40 mg PO DAILY [facility] Last Admin: 07/24/19 11:01 Dose: 40 mg Sotalol HCl (Betapace -) 80 mg PO BID [facility] Last Admin: 07/24/19 22:14 Dose: 80 mg Thiamine HCl (Vitamin B1 -) 100 mg PO DAILY [facility] Last Admin: 07/24/19 11:02 Dose: 100 mg - Allergies Allergies: Allergies Allergy/AdvReac Type Severity Reaction Status Date / Time No Known Allergies Allergy Verified 07/22/19 21:09 - Current Living Status Usual Living Arrangement: Alone - Current Mental Status Evaluation Appearance: Well Groomed Attitude: Cooperative - Affect Affect: Constrictive Appropriateness: Appropriate to Content - Mood Mood: Euthymic - Speech/Language Expressive: Coherent - Psychomotor Activity Psychomotor Activity: Slowed - Thought Process Thought Process: Intact - Thought Content Hallucinations: Absent Delusions: Absent - Self Perception Self Perception: No Impairment - Cognition Attention: Alert Orientation: Time Memory, Immediate Recall: Intact Memory, Short Term: 2/3 Memory, Remote with Promptin/3 - Concentration Serial Sevens Intact: No Simple Calculations Intact: Yes - Abstraction Proverb Interpretation: Intact Judgement: Minimally Impaired - Insight Insight: Intact - Impulse Control Impulse Control: Minimally Impaired - Suicidal Ideation Suicidal Ideation: No - Homicidal Ideation Homicidal Ideation: No Assessment/Plan 10 No evidence of Clinical depression. 2) He may benefit from Cymbalta 20 mg po0 od when Medically stable.
[2019-07-25 11:49] LABS: METHADONE, UR POSITIVE ng/ml (CUTOFF=300); OPIATES, URI POSITIVE ng/ml (CUTOFF=300)
--- NOTE | 2019-07-25 11:54 | PN ---
Progress Note (short form) - Note Progress Note: Quickly desaturates when off VM. Placed on 100% NRBM. Mildly confused. Intake & Output 07/22/19 07/23/19 07/24/19 07/25/19 23:59 23:59 23:59 23:59 Intake Total 1280 850 268 Balance 1280 850 268 Weight 250 lb 198 lb 12.8 oz 199 lb 3 oz Last Vital Signs Temp Pulse Resp BP Pulse Ox 97.9 F 89 20 93/73 91 L 07/25/19 08:00 07/25/19 08:00 07/25/19 09:00 07/25/19 08:00 07/25/19 09:00 Active Medications Albuterol Sulfate (Ventolin 0.083% Nebulizer Soln -) 1 amp NEB RQID PRN PRN Reason: SHORT OF BREATH/WHEEZING Albuterol/Ipratropium (Duoneb -) 1 amp NEB RQID [facility] Last Admin: 07/25/19 08:04 Dose: 1 amp Chlorhexidine Gluconate (Hibiclens For Decolonization -) 1 applic TP HS [facility] Last Admin: 07/24/19 22:14 Dose: Not Given Diltiazem HCl (Cardizem Cd -) 120 mg PO DAILY [facility] Last Admin: 07/24/19 11:01 Dose: 120 mg Diltiazem HCl (Cardizem Injection -) 5 mg IVPUSH Q4H PRN PRN Reason: TACHYCARDIA Enoxaparin Sodium (Lovenox -) 90 mg SQ BID [facility] Last Admin: 07/24/19 22:14 Dose: 90 mg Folic Acid (Folic Acid -) 1 mg PO DAILY [facility] Last Admin: 07/24/19 11:01 Dose: 1 mg Ceftriaxone Sodium 1 gm/ (Dextrose) 50 mls @ 100 mls/hr IVPB DAILY [facility]; Protocol Last Admin: 07/25/19 10:56 Dose: 100 mls/hr Sodium Chloride (Normal Saline -) 1,000 mls @ 125 mls/hr IV ASDIR [facility] Last Admin: 07/25/19 09:05 Dose: 125 mls/hr Methylprednisolone Sodium Succinate (Solu-Medrol -) 40 mg IVPUSH Q8H-IV [facility] Last Admin: 07/25/19 10:56 Dose: 40 mg Morphine Sulfate (Ms Contin -) 30 mg PO BID [facility] Last Admin: 07/24/19 22:13 Dose: 30 mg Multivitamins/Minerals/Vitamin C (Tab-A-Vit -) 1 tab PO DAILY [facility] Last Admin: 07/24/19 11:02 Dose: 1 tab Mupirocin (Bactroban Ointment (For Decolonization) -) 1 applic NS BID [facility] Stop: 07/28/19 09:59 Last Admin: 07/24/19 22:14 Dose: Not Given Oxycodone HCl (Roxicodone -) 30 mg PO Q6H PRN PRN Reason: PAIN LEVEL 7 - 10 Last Admin: 07/24/19 22:15 Dose: 30 mg Pantoprazole Sodium (Protonix -) 40 mg PO DAILY [facility] Last Admin: 07/24/19 11:01 Dose: 40 mg Sotalol HCl (Betapace -) 80 mg PO BID [facility] Last Admin: 07/24/19 22:14 Dose: 80 mg Thiamine HCl (Vitamin B1 -) 100 mg PO DAILY [facility] Last Admin: 07/24/19 11:02 Dose: 100 mg Gen: Tachypneic at rest Heart: RRR Lung: scattered rhonchi Abd: soft, nontender Ext: no edema Laboratory Results - last 24 hr 07/23/19 07/23/19 07/23/19 06:48 06:48 06:48 WBC RBC Hgb Hct MCV MCH MCHC RDW Plt Count MPV Absolute Neuts (auto) Neutrophils % Neutrophils % (Manual) Band Neutrophils % Lymphocytes % Lymphocytes % (Manual) Monocytes % Monocytes % (Manual) Eosinophils % Eosinophils % (Manual) Basophils % Basophils % (Manual) Myelocytes % (Man) Promyelocytes % (Man) Blast Cells % (Manual) Nucleated RBC % Metamyelocytes Hypochromia Platelet Estimate Polychromasia Anisocytosis Macrocytosis Sodium Potassium Chloride Carbon Dioxide Anion Gap BUN Creatinine Est GFR (CKD-EPI)AfAm Est GFR (CKD-EPI)NonAf Random Glucose Calcium Phosphorus Magnesium Transferrin 198 L Total Bilirubin AST ALT Alkaline Phosphatase LD Total Creatine Kinase Total Protein Albumin Opiates Screen Methadone Screen Barbiturate Screen Phencyclidine Screen Ur Amphetamines Screen MDMA (Ecstasy) Screen Benzodiazepines Screen Cocaine Screen U Marijuana (THC) Screen IgD < 1.28 Hep A IgM Ab Confirm Negative Hepatitis A Ab Total Positive H Hep Bs Antigen Negative Hep Bs Antibody Non reactive Hep B Core Total Ab Negative Hep B Core IgM Ab Negative Hepatitis Be Antibody Negative Hepatitis Be Antigen Negative Negative 07/25/19 07/25/19 07/25/19 06:53 06:53 11:15 WBC 27.2 H RBC 3.07 L Hgb 9.6 L Hct 29.9 L MCV 97.6 H MCH 31.3 MCHC 32.0 RDW 21.0 H Plt Count 226 D MPV 8.4 Absolute Neuts (auto) 25.1 H Neutrophils % 92.1 H Neutrophils % (Manual) 87.5 H Band Neutrophils % 6.3 Lymphocytes % 2.2 L D Lymphocytes % (Manual) 0.0 L Monocytes % 5.5 Monocytes % (Manual) 3 L Eosinophils % 0.0 D Eosinophils % (Manual) 0.0 Basophils % 0.2 Basophils % (Manual) 0.0 Myelocytes % (Man) 0 Promyelocytes % (Man) 0 Blast Cells % (Manual) 0 Nucleated RBC % 1 H Metamyelocytes 2 D Hypochromia 0 Platelet Estimate Normal Polychromasia 1+ Anisocytosis 1+ Macrocytosis 1+ Sodium 140 Potassium 5.3 H Chloride 107 Carbon Dioxide 28 Anion Gap 5 L BUN 24.4 H Creatinine 1.4 H Est GFR (CKD-EPI)AfAm 61.10 Est GFR (CKD-EPI)NonAf 52.72 Random Glucose 126 H Calcium 7.9 L Phosphorus 4.7 Magnesium 2.3 Transferrin Total Bilirubin 0.3 AST 1564 H ALT 2597 H Alkaline Phosphatase 155 H LD Total 1316 H Creatine Kinase 63 Total Protein 6.6 Albumin 3.2 L Opiates Screen Positive A* Methadone Screen Positive A* Barbiturate Screen Negative Phencyclidine Screen Negative Ur Amphetamines Screen Negative MDMA (Ecstasy) Screen Negative Benzodiazepines Screen Negative Cocaine Screen Negative U Marijuana (THC) Screen Negative IgD Hep A IgM Ab Confirm Hepatitis A Ab Total Hep Bs Antigen Hep Bs Antibody Hep B Core Total Ab Hep B Core IgM Ab Hepatitis Be Antibody Hepatitis Be Antigen ASSESSMENT AND PLAN: Altered Mental Status improving Acute on Chronic Hypoxic Respiratory Failure Opioid Overdose Elevated LFTs likely Ischemic Injury Acute Kidney Injury Metastatic Squamous Cell Cancer on chemo Acute COPD Exacerbation h/o PE/SVC thrombus Atrial Fibrillation with RVR HTN Hyperlipidemia - Trial of HFOT - trend LFTs - monitor urine output, creatinine - empiric antibiotics - f/u cultures - IV medrol - inhaled bronchodilators - rate control - continue anticoagulation Dr Jean
[2019-07-25] MEDS: SOTALOL HCL 80 MG TABLET (FP) PO SCH ×2 (12:00→22:21)
[2019-07-25] MEDS: ENOXAPARIN NA (PORCINE) 100 MG/1 ML DISP.SYRIN SQ SCH ×2 (12:00→22:21)
--- NOTE | 2019-07-25 13:08 | PN ---
Progress Note, Physician History of Present Illness: Pt seen and examined at bedside. He feels more comfortable today. - Current Medication List Current Medications: Active Medications Albuterol Sulfate (Ventolin 0.083% Nebulizer Soln -) 1 amp NEB RQID PRN PRN Reason: SHORT OF BREATH/WHEEZING Albuterol/Ipratropium (Duoneb -) 1 amp NEB RQID [facility] Last Admin: 07/25/19 08:04 Dose: 1 amp Chlorhexidine Gluconate (Hibiclens For Decolonization -) 1 applic TP HS [facility] Last Admin: 07/24/19 22:14 Dose: Not Given Diltiazem HCl (Cardizem Cd -) 120 mg PO DAILY [facility] Last Admin: 07/24/19 11:01 Dose: 120 mg Diltiazem HCl (Cardizem Injection -) 5 mg IVPUSH Q4H PRN PRN Reason: TACHYCARDIA Enoxaparin Sodium (Lovenox -) 90 mg SQ BID [facility] Last Admin: 07/24/19 22:14 Dose: 90 mg Folic Acid (Folic Acid -) 1 mg PO DAILY [facility] Last Admin: 07/24/19 11:01 Dose: 1 mg Ceftriaxone Sodium 1 gm/ (Dextrose) 50 mls @ 100 mls/hr IVPB DAILY [facility]; Protocol Last Admin: 07/25/19 10:56 Dose: 100 mls/hr Sodium Chloride (Normal Saline -) 1,000 mls @ 125 mls/hr IV ASDIR [facility] Last Admin: 07/25/19 09:05 Dose: 125 mls/hr Methylprednisolone Sodium Succinate (Solu-Medrol -) 40 mg IVPUSH Q8H-IV [facility] Last Admin: 07/25/19 10:56 Dose: 40 mg Multivitamins/Minerals/Vitamin C (Tab-A-Vit -) 1 tab PO DAILY [facility] Last Admin: 07/24/19 11:02 Dose: 1 tab Mupirocin (Bactroban Ointment (For Decolonization) -) 1 applic NS BID [facility] Stop: 07/28/19 09:59 Last Admin: 07/24/19 22:14 Dose: Not Given Oxycodone HCl (Roxicodone -) 15 mg PO Q6H PRN PRN Reason: NEED PAIN SCALE Pantoprazole Sodium (Protonix -) 40 mg PO DAILY [facility] Last Admin: 07/24/19 11:01 Dose: 40 mg Sotalol HCl (Betapace -) 80 mg PO BID [facility] Last Admin: 07/24/19 22:14 Dose: 80 mg Thiamine HCl (Vitamin B1 -) 100 mg PO DAILY [facility] Last Admin: 07/24/19 11:02 Dose: 100 mg - Objective Vital Signs: Vital Signs Temperature 97.9 F 07/25/19 08:00 Pulse Rate 89 07/25/19 08:00 Respiratory Rate 20 07/25/19 09:00 Blood Pressure 93/73 07/25/19 08:00 O2 Sat by Pulse Oximetry (%) 91 L 07/25/19 09:00 Constitutional: Yes: Calm Eyes: Yes: Conjunctiva Clear HENT: Yes: Atraumatic Cardiovascular: Yes: S1, S2 Respiratory: Yes: On Venti-Mask Gastrointestinal: Yes: Soft Genitourinary: Yes: WNL Musculoskeletal: Yes: WNL Edema: No Neurological: Yes: Oriented Labs: CBC, BMP 07/25/19 06:53 07/25/19 06:53 INR, PTT INR 1.69 (0.83-1.09) H 07/23/19 09:14 Problem List - Problems (1) Acute kidney injury Code(s): N17.9 - ACUTE KIDNEY FAILURE, UNSPECIFIED (2) Elevated liver enzymes Code(s): R74.8 - ABNORMAL LEVELS OF OTHER SERUM ENZYMES (3) Opioid overdose Code(s): T40.2X1A - POISONING BY OTH OPIOIDS, ACCIDENTAL (UNINTENTIONAL), INIT Qualifiers: Encounter type: initial encounter Injury intent: accidental or unintentional Qualified Code(s): T40.2X1A - Poisoning by other opioids, accidental (unintentional), initial encounter Assessment/Plan Current Medications Generic Name Dose Route Start Last Admin Trade Name Freq PRN Reason Stop Dose Admin Albuterol Sulfate 1 amp 07/23/19 06:05 Ventolin 0.083% Nebulizer Soln - NEB RQID PRN SHORT OF BREATH/WHEEZING Albuterol/Ipratropium 1 amp 07/23/19 08:00 07/25/19 08:04 Duoneb - NEB 1 amp RQID [facility] Administration Chlorhexidine Gluconate 1 applic 07/23/19 22:00 07/24/19 22:14 Hibiclens For Decolonization - TP Not Given HS [facility] Diltiazem HCl 120 mg 07/23/19 10:00 07/24/19 11:01 Cardizem Cd - PO 120 mg DAILY [facility] Administration Diltiazem HCl 5 mg 07/23/19 10:50 Cardizem Injection - IVPUSH Q4H PRN TACHYCARDIA Enoxaparin Sodium 90 mg 07/23/19 10:00 07/24/19 22:14 Lovenox - SQ 90 mg BID [facility] Administration Folic Acid 1 mg 07/23/19 10:00 07/24/19 11:01 Folic Acid - PO 1 mg DAILY [facility] Administration Ceftriaxone Sodium 1 gm/ 50 mls @ 100 mls/hr 07/23/19 11:00 07/25/19 10:56 Dextrose IVPB 100 mls/hr DAILY [facility] Administration Protocol Sodium Chloride 1,000 mls @ 125 mls/hr 07/25/19 08:37 07/25/19 09:05 Normal Saline - IV 125 mls/hr ASDIR [facility] Administration Methylprednisolone Sodium Succinate 40 mg 07/24/19 11:15 07/25/19 10:56 Solu-Medrol - IVPUSH 40 mg Q8H-IV [facility] Administration Multivitamins/Minerals/Vitamin C 1 tab 07/23/19 10:00 07/24/19 11:02 Tab-A-Vit - PO 1 tab DAILY [facility] Administration Mupirocin 1 applic 07/23/19 10:00 07/24/19 22:14 Bactroban Ointment (For Decolonization) - NS 07/28/19 09:59 Not Given BID [facility] Oxycodone HCl 15 mg 07/25/19 12:33 Roxicodone - PO Q6H PRN NEED PAIN SCALE Pantoprazole Sodium 40 mg 07/23/19 10:00 07/24/19 11:01 Protonix - PO 40 mg DAILY [facility] Administration Sotalol HCl 80 mg 07/23/19 11:00 07/24/19 22:14 Betapace - PO 80 mg BID [facility] Administration Thiamine HCl 100 mg 07/23/19 10:00 07/24/19 11:02 Vitamin B1 - PO 100 mg DAILY [facility] Administration Impression 1. opioid overdose 2. felisha 3. transaminitis 4. lung cancer 5. copd 6. htn 7. hld 8. 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
[2019-07-25] MEDS ORDERED: PT OWN MED DRAWER 7, Y5N ONE (15:13)
[2019-07-25] MEDS: FOLIC ACID 1 MG TABLET (FP) PO SCH (15:17)
[2019-07-25] MEDS: MULTIVITAMINS (DAILY MVI) TABLET (FP) PO SCH (15:18)
[2019-07-25] MEDS: THIAMINE HCL 100 MG TABLET (FP) PO SCH (15:18)
[2019-07-25] MEDS: PANTOPRAZOLE 40 MG TABLET PO SCH (15:18)
[2019-07-25] MEDS ORDERED: oxyCODONE HCL 5 MG TABLET PO PRN (15:57)
--- NOTE | 2019-07-25 18:44 | PN ---
Progress Note (short form) - Note Progress Note: Patient seen and examined More alert, but still somewhat lethargic Last Vital Signs Temp Pulse Resp BP Pulse Ox 97.4 F L 87 20 88/63 L 91 L 07/25/19 14:00 07/25/19 14:00 07/25/19 14:00 07/25/19 14:00 07/25/19 09:00 HEENT: ROSARIO, EOM Intact Oropharynx: No thrush, No mucositis Cor: RSR, No murmurs, No gallops Lungs: decreased breath sounds and rales RLL Abd: Soft, Normal bowel sounds, No organomegaly Ext:No significant edema Skin: No rashes, Integument intact Liver flap CBC, BMP 07/25/19 06:53 07/25/19 06:53 Abnormal Lab Results 07/23/19 07/23/19 07/25/19 06:48 06:48 06:53 WBC 27.2 H RBC 3.07 L Hgb 9.6 L Hct 29.9 L MCV 97.6 H RDW 21.0 H Absolute Neuts (auto) 25.1 H Neutrophils % 92.1 H Neutrophils % (Manual) 87.5 H Lymphocytes % 2.2 L D Lymphocytes % (Manual) 0.0 L Monocytes % (Manual) 3 L Nucleated RBC % 1 H Potassium Anion Gap BUN Creatinine Random Glucose Calcium Transferrin 198 L AST ALT Alkaline Phosphatase LD Total Albumin Opiates Screen Methadone Screen Hepatitis A Ab Total Positive H 07/25/19 07/25/19 06:53 11:15 WBC RBC Hgb Hct MCV RDW Absolute Neuts (auto) Neutrophils % Neutrophils % (Manual) Lymphocytes % Lymphocytes % (Manual) Monocytes % (Manual) Nucleated RBC % Potassium 5.3 H Anion Gap 5 L BUN 24.4 H Creatinine 1.4 H Random Glucose 126 H Calcium 7.9 L Transferrin AST 1564 H ALT 2597 H Alkaline Phosphatase 155 H LD Total 1316 H Albumin 3.2 L Opiates Screen Positive A* Methadone Screen Positive A* Hepatitis A Ab Total Current Medications Generic Name Dose Route Start Last Admin Trade Name Freq PRN Reason Stop Dose Admin Albuterol Sulfate 1 amp 07/23/19 06:05 Ventolin 0.083% Nebulizer Soln - NEB RQID PRN SHORT OF BREATH/WHEEZING Albuterol/Ipratropium 1 amp 07/23/19 08:00 07/25/19 15:56 Duoneb - NEB 1 amp RQID [facility] Administration Chlorhexidine Gluconate 1 applic 07/23/19 22:00 07/24/19 22:14 Hibiclens For Decolonization - TP Not Given HS [facility] Diltiazem HCl 120 mg 07/23/19 10:00 07/25/19 12:00 Cardizem Cd - PO Not Given DAILY [facility] Diltiazem HCl 5 mg 07/23/19 10:50 Cardizem Injection - IVPUSH Q4H PRN TACHYCARDIA Enoxaparin Sodium 90 mg 07/23/19 10:00 07/25/19 12:00 Lovenox - SQ 90 mg BID [facility] Administration Folic Acid 1 mg 07/23/19 10:00 07/25/19 15:17 Folic Acid - PO 1 mg DAILY [facility] Administration Ceftriaxone Sodium 1 gm/ 50 mls @ 100 mls/hr 07/23/19 11:00 07/25/19 10:56 Dextrose IVPB 100 mls/hr DAILY [facility] Administration Protocol Sodium Chloride 1,000 mls @ 125 mls/hr 07/25/19 08:37 07/25/19 09:05 Normal Saline - IV 125 mls/hr ASDIR [facility] Administration Methylprednisolone Sodium Succinate 40 mg 07/24/19 11:15 07/25/19 17:27 Solu-Medrol - IVPUSH 40 mg Q8H-IV [facility] Administration Multivitamins/Minerals/Vitamin C 1 tab 07/23/19 10:00 07/25/19 15:18 Tab-A-Vit - PO 1 tab DAILY [facility] Administration Mupirocin 1 applic 07/23/19 10:00 07/25/19 11:00 Bactroban Ointment (For Decolonization) - NS 07/28/19 09:59 Not Given BID [facility] Oxycodone HCl 15 mg 07/25/19 15:57 Roxicodone - PO Q6H PRN PAIN 7-10 Pantoprazole Sodium 40 mg 07/23/19 10:00 07/25/19 15:18 Protonix - PO 40 mg DAILY [facility] Administration Sotalol HCl 80 mg 07/23/19 11:00 07/25/19 12:00 Betapace - PO Not Given BID [facility] Thiamine HCl 100 mg 07/23/19 10:00 07/25/19 15:18 Vitamin B1 - PO 100 mg DAILY [facility] Administration Impression SCC of lung --s/p chemotherapy Opiod dependence Liver dysfunction Unusual in that toxicology from 07/25- positive for methadone (negative 07/23 and 07/24) Did not receive methadone in hospital and denies Patient denies taking methadone Suspect liver dysfunction has take usual doses of opiods to higher blood levels Will check NH3 level and begin lactulose Pain consult awaited
[2019-07-25] MEDS: LACTULOSE 20 GM/30 ML UDC (FOR ORAL USE ONLY) PO PRN (20:30)
[2019-07-25 21:17] LABS: COCAINE, UR NEGATIVE ng/ml (CUTOFF=300); PHENCYCLIDINE,URINE NEGATIVE ng/ml (CUTOFF=25); URINE AMPHETAMINES NEGATIVE ng/ml (CUTOFF=500); URINE BARBITURATES NEGATIVE ng/ml (CUTOFF=200); URINE BENZODIAZEPINES NEGATIVE ng/ml (CUTOFF=200)
[2019-07-25 21:19] LABS: METHADONE, UR POSITIVE ng/ml (CUTOFF=300); OPIATES, URI POSITIVE ng/ml (CUTOFF=300)
[2019-07-25] MEDS: CHLORHEXIDINE GLUCONATE 4% CLEANSER FOR DECOLONIZATION TP SCH (22:20)
[2019-07-26] MEDS: LACTULOSE 20 GM/30 ML UDC (FOR ORAL USE ONLY) PO PRN (00:34)
[2019-07-26] MEDS: methylPREDNISolone NA SUCC 40 MG/1 ML VIAL IVPUSH SCH ×3 (01:53→18:00)
[2019-07-26 02:06] LABS: HCV ALPHA 2 MACRO CHART 332 mg/dL (110-276)
[2019-07-26] MEDS: ALBUTEROL SO4 2.5/IPRATROPIUM 0.5 INH SOL 3 ML VIAL.NEB. NEB SCH ×4 (07:30→20:15)
--- NOTE | 2019-07-26 07:45 | PN.GI ---
GI Progress Note Subjective: Patient is more alert today. Complains of 2 episodes of non-bloody diarrhea yesterday accompanied with lower abdominal cramping. Denies nausea, vomiting, rectal bleeding or melena. Labs from yesterday show elevated LFTs with AST 1564 , ALT 2597, Alk Phos 155. - Objective Vital Signs: Vital Signs Temperature 98.1 F 07/26/19 06:00 Pulse Rate 89 07/26/19 06:00 Respiratory Rate 07/26/19 06:00 Blood Pressure 119/87 07/26/19 06:00 O2 Sat by Pulse Oximetry (%) 92 L 07/25/19 21:00 Constitutional: No Distress, Calm Eyes: Yes: Conjunctiva Clear HENT: Yes: Atraumatic Cardiovascular: Yes: Regular Rate and Rhythm Respiratory: Yes: Regular, Diminished, Other (High flow oxygen) Gastrointestinal Inspection: Yes: WNL. No: Ascites, Distention, Hernia, Scars, Other ...Auscultate: Yes: Normoactive Bowel Sounds. No: Hyperactive Bowel Sounds, Hypoactive Bowel Sounds, No Bowel Sounds, Other ...Palpate: Yes: Soft, Tenderness (lower abdomen). No: Firm/Rigid, Guarding, Hepatomegaly, Mass, Pulsatile Mass, Splenomegaly, Tenderness, Epigastium, Tenderness, Rebound, Other ...Percussion: Yes: Tympanitic. No: Dullness, Fluid Wave, Other Neurological: Yes: Alert, Oriented Psychiatric: Yes: Alert, Oriented Labs: CBC, BMP 07/25/19 06:53 07/25/19 06:53 INR, PTT INR 1.69 (0.83-1.09) H 07/23/19 09:14 Active Medications Generic Name Dose Route Start Last Admin Trade Name Freq PRN Reason Stop Dose Admin Albuterol Sulfate 1 amp 07/23/19 06:05 Ventolin 0.083% Nebulizer Soln - NEB RQID PRN SHORT OF BREATH/WHEEZING Albuterol/Ipratropium 1 amp 07/23/19 08:00 07/25/19 21:05 Duoneb - NEB 1 amp RQID [facility] Administration Chlorhexidine Gluconate 1 applic 07/23/19 22:00 07/25/19 22:20 Hibiclens For Decolonization - TP Not Given [facility] Diltiazem HCl 120 mg 07/23/19 10:00 07/25/19 12:00 Cardizem Cd - PO Not Given DAILY [facility] Diltiazem HCl 5 mg 07/23/19 10:50 Cardizem Injection - IVPUSH Q4H PRN TACHYCARDIA Enoxaparin Sodium 90 mg 07/23/19 10:00 07/25/19 22:21 Lovenox - SQ 90 mg BID [facility] Administration Folic Acid 1 mg 07/23/19 10:00 07/25/19 15:17 Folic Acid - PO 1 mg DAILY [facility] Administration Ceftriaxone Sodium 1 gm/ 50 mls @ 100 mls/hr 07/23/19 11:00 07/25/19 10:56 Dextrose IVPB 100 mls/hr DAILY [facility] Administration Protocol Sodium Chloride 1,000 mls @ 125 mls/hr 07/25/19 08:37 07/25/19 09:05 Normal Saline - IV 125 mls/hr ASDIR [facility] Administration Lactulose 20 gm 07/25/19 18:45 07/26/19 00:34 Cephulac (Oral Use) PO 20 gm TID PRN Administration CONSTIPATION Methylprednisolone Sodium Succinate 40 mg 07/24/19 11:15 07/26/19 01:53 Solu-Medrol - IVPUSH 40 mg Q8H-IV [facility] Administration Multivitamins/Minerals/Vitamin C 1 tab 07/23/19 10:00 07/25/19 15:18 Tab-A-Vit - PO 1 tab DAILY [facility] Administration Mupirocin 1 applic 07/23/19 10:00 07/25/19 22:18 Bactroban Ointment (For Decolonization) - NS 07/28/19 09:59 Not Given BID [facility] Oxycodone HCl 10 mg 07/25/19 18:47 Roxicodone - PO Q8H PRN PAIN LEVEL 4 - 6 Pantoprazole Sodium 40 mg 07/23/19 10:00 07/25/19 15:18 Protonix - PO 40 mg DAILY [facility] Administration Sotalol HCl 80 mg 07/23/19 11:00 07/25/19 22:21 Betapace - PO Not Given BID [facility] Thiamine HCl 100 mg 07/23/19 10:00 07/25/19 15:18 Vitamin B1 - PO 100 mg DAILY [facility] Administration Problem List - Problems (1) Hepatocellular injury Assessment/Plan: Ischemic hepaitis R> expect LFTs to improve with adequate hydration avoid hepatotoxic meds Code(s): K76.9 - LIVER DISEASE, UNSPECIFIED
--- NOTE | 2019-07-26 08:11 | PN ---
Progress Note, Physician - Current Medication List Current Medications: Active Medications Albuterol Sulfate (Ventolin 0.083% Nebulizer Soln -) 1 amp NEB RQID PRN PRN Reason: SHORT OF BREATH/WHEEZING Albuterol/Ipratropium (Duoneb -) 1 amp NEB RQID [facility] Last Admin: 07/25/19 21:05 Dose: 1 amp Chlorhexidine Gluconate (Hibiclens For Decolonization -) 1 applic TP HS [facility] Last Admin: 07/25/19 22:20 Dose: Not Given Diltiazem HCl (Cardizem Cd -) 120 mg PO DAILY [facility] Last Admin: 07/25/19 12:00 Dose: Not Given Diltiazem HCl (Cardizem Injection -) 5 mg IVPUSH Q4H PRN PRN Reason: TACHYCARDIA Enoxaparin Sodium (Lovenox -) 90 mg SQ BID [facility] Last Admin: 07/25/19 22:21 Dose: 90 mg Folic Acid (Folic Acid -) 1 mg PO DAILY [facility] Last Admin: 07/25/19 15:17 Dose: 1 mg Ceftriaxone Sodium 1 gm/ (Dextrose) 50 mls @ 100 mls/hr IVPB DAILY [facility]; Protocol Last Admin: 07/25/19 10:56 Dose: 100 mls/hr Sodium Chloride (Normal Saline -) 1,000 mls @ 125 mls/hr IV ASDIR [facility] Last Admin: 07/25/19 09:05 Dose: 125 mls/hr Lactulose (Cephulac (Oral Use)) 20 gm PO TID PRN PRN Reason: CONSTIPATION Last Admin: 07/26/19 00:34 Dose: 20 gm Methylprednisolone Sodium Succinate (Solu-Medrol -) 40 mg IVPUSH Q8H-IV [facility] Last Admin: 07/26/19 01:53 Dose: 40 mg Multivitamins/Minerals/Vitamin C (Tab-A-Vit -) 1 tab PO DAILY [facility] Last Admin: 07/25/19 15:18 Dose: 1 tab Mupirocin (Bactroban Ointment (For Decolonization) -) 1 applic NS BID [facility] Stop: 07/28/19 09:59 Last Admin: 07/25/19 22:18 Dose: Not Given Oxycodone HCl (Roxicodone -) 10 mg PO Q8H PRN PRN Reason: PAIN LEVEL 4 - 6 Pantoprazole Sodium (Protonix -) 40 mg PO DAILY [facility] Last Admin: 07/25/19 15:18 Dose: 40 mg Sotalol HCl (Betapace -) 80 mg PO BID [facility] Last Admin: 07/25/19 22:21 Dose: Not Given Thiamine HCl (Vitamin B1 -) 100 mg PO DAILY [facility] Last Admin: 07/25/19 15:18 Dose: 100 mg - Objective Vital Signs: Vital Signs Temperature 98.1 F 07/26/19 06:00 Pulse Rate 89 07/26/19 06:00 Respiratory Rate 07/26/19 06:00 Blood Pressure 119/87 07/26/19 06:00 O2 Sat by Pulse Oximetry (%) 92 L 07/25/19 21:00 Cardiovascular: Yes: S1, S2 Respiratory: Yes: Diminished, On Venti-Mask Gastrointestinal: Yes: Normal Bowel Sounds, Soft. No: Tenderness Labs: INR, PTT INR 1.69 (0.83-1.09) H 07/23/19 09:14 Assessment/Plan - Problems (1) Acute kidney injury Assessment/Plan: -nephrology consult -Monitor trend -Continue IVF Problems reviewed: Yes Code(s): N17.9 - ACUTE KIDNEY FAILURE, UNSPECIFIED (2) Elevated liver enzymes Assessment/Plan: -2/2 to ischemic hepatitis -Continue IVF -Monitor trend Problems reviewed: Yes Code(s): R74.8 - ABNORMAL LEVELS OF OTHER SERUM ENZYMES (3) Opioid overdose Assessment/Plan: -Nalaxone dc'd as pt's mental status is improving -Neuro check -ICU monitoring -BACK ON PAIN MEDS--USING MORPHINE AND OXYCODONE FOR PAIN BUT GETTING LETHARGIC- -AWAIT PAIN CONSULT Problems reviewed: Yes Code(s): T40.2X1A - POISONING BY OTH OPIOIDS, ACCIDENTAL (UNINTENTIONAL), INIT Qualifiers: Encounter type: initial encounter Injury intent: accidental or unintentional Qualified Code(s): T40.2X1A - Poisoning by other opioids, accidental (unintentional), initial encounter (4) Afib Assessment/Plan: -Chronic -Rate controlled -ICU monitoring -Lovenox Problems reviewed: Yes Code(s): I48.91 - UNSPECIFIED ATRIAL FIBRILLATION (5) SVC syndrome Problems reviewed: Yes Code(s): I87.1 - COMPRESSION OF VEIN (6) Squamous cell lung cancer Assessment/Plan: -Oncology consult -Palliative consult Problems reviewed: Yes Code(s): C34.90 - MALIGNANT NEOPLASM OF UNSP PART OF UNSP BRONCHUS OR LUNG
[2019-07-26 08:24] LABS: BASO % 0.4 % (0-2.0); HEMATOCRIT 27.8 % (35.4-49); HEMOGLOBIN 8.7 GM/dL (11.7-16.9); LYMPH % 3.1 % (8-40); MCH 30.8 pg (25.7-33.7); MCHC 31.2 g/dl (32.0-35.9); MEAN CELL VOLUME 98.5 fl (80-96); MEAN PLT VOLUME 8.8 fl (7.5-11.1); MONO % 6.5 % (3.8-10.2); PLATELET COUNT 232 K/MM3 (134-434); RBC 2.82 M/mm3 (4.00-5.60); RDW 20.5 % (11.9-15.9); WHITE BLOOD COUNT 22.1 K/mm3 (4.0-10.0)
[2019-07-26] MEDS: SODIUM CHLORIDE 1,000 ML IV SCH (08:45)
[2019-07-26 08:57] LABS: ALBUMIN 3.1 g/dl (3.4-5.0); BILIRUBIN,TOTAL 0.3 mg/dL (0.2-1); CALCIUM 7.3 mg/dL (8.5-10.1); CREATININE 0.8 mg/dL (0.55-1.3); POTASSIUM 4.6 mmol/L (3.5-5.1); TOT PROT 6.1 g/dl (6.4-8.2)
[2019-07-26] MEDS ORDERED: cefTRIAXone SODIUM 1 GM VIAL ONE (08:57)
[2019-07-26] MEDS ORDERED: DEXTROSE 5%-WATER - 50 ML IVPB ONE (08:57)
[2019-07-26] MEDS: THIAMINE HCL 100 MG TABLET (FP) PO SCH (09:16)
[2019-07-26] MEDS: SOTALOL HCL 80 MG TABLET (FP) PO SCH ×2 (09:16→22:01)
[2019-07-26] MEDS: PANTOPRAZOLE 40 MG TABLET PO SCH (09:16)
[2019-07-26] MEDS: CEFTRIAXONE 1 GM in DEXTROSE 5%-WATER - 50 ML IVPB SCH (09:16)
[2019-07-26] MEDS: MULTIVITAMINS (DAILY MVI) TABLET (FP) PO SCH (09:16)
[2019-07-26] MEDS: FOLIC ACID 1 MG TABLET (FP) PO SCH (09:16)
[2019-07-26] MEDS: MUPIROCIN 2% TOPICAL OINTMENT FOR DECOLONIZATION NS SCH (09:17)
[2019-07-26] MEDS: ENOXAPARIN NA (PORCINE) 100 MG/1 ML DISP.SYRIN SQ SCH ×2 (09:40→22:02)
[2019-07-26] MEDS ORDERED: SODIUM CHLORIDE 1,000 ML IV SCH (11:26)
--- NOTE | 2019-07-26 11:26 | PN ---
Progress Note, Physician History of Present Illness: Pt seen and examined at bedside. He is awake and alert. He denies shortness of breath. - Current Medication List Current Medications: Active Medications Albuterol Sulfate (Ventolin 0.083% Nebulizer Soln -) 1 amp NEB RQID PRN PRN Reason: SHORT OF BREATH/WHEEZING Albuterol/Ipratropium (Duoneb -) 1 amp NEB RQID [facility] Last Admin: 07/26/19 07:30 Dose: 1 amp Chlorhexidine Gluconate (Hibiclens For Decolonization -) 1 applic TP HS [facility] Last Admin: 07/25/19 22:20 Dose: Not Given Diltiazem HCl (Cardizem Cd -) 120 mg PO DAILY [facility] Last Admin: 07/26/19 09:16 Dose: 120 mg Diltiazem HCl (Cardizem Injection -) 5 mg IVPUSH Q4H PRN PRN Reason: TACHYCARDIA Enoxaparin Sodium (Lovenox -) 90 mg SQ BID [facility] Last Admin: 07/26/19 09:40 Dose: 90 mg Folic Acid (Folic Acid -) 1 mg PO DAILY [facility] Last Admin: 07/26/19 09:16 Dose: 1 mg Ceftriaxone Sodium 1 gm/ (Dextrose) 50 mls @ 100 mls/hr IVPB DAILY [facility]; Protocol Last Admin: 07/26/19 09:16 Dose: 100 mls/hr Sodium Chloride (Normal Saline -) 1,000 mls @ 125 mls/hr IV ASDIR [facility] Last Admin: 07/25/19 09:05 Dose: 125 mls/hr Lactulose (Cephulac (Oral Use)) 20 gm PO TID PRN PRN Reason: CONSTIPATION Last Admin: 07/26/19 00:34 Dose: 20 gm Methylprednisolone Sodium Succinate (Solu-Medrol -) 40 mg IVPUSH Q8H-IV [facility] Last Admin: 07/26/19 09:15 Dose: 40 mg Multivitamins/Minerals/Vitamin C (Tab-A-Vit -) 1 tab PO DAILY [facility] Last Admin: 07/26/19 09:16 Dose: 1 tab Mupirocin (Bactroban Ointment (For Decolonization) -) 1 applic NS BID [facility] Stop: 07/28/19 09:59 Last Admin: 07/26/19 09:17 Dose: Not Given Oxycodone HCl (Roxicodone -) 10 mg PO Q8H PRN PRN Reason: PAIN LEVEL 4 - 6 Pantoprazole Sodium (Protonix -) 40 mg PO DAILY [facility] Last Admin: 07/26/19 09:16 Dose: 40 mg Sotalol HCl (Betapace -) 80 mg PO BID [facility] Last Admin: 07/26/19 09:16 Dose: 80 mg Thiamine HCl (Vitamin B1 -) 100 mg PO DAILY [facility] Last Admin: 07/26/19 09:16 Dose: 100 mg - Objective Vital Signs: Vital Signs Temperature 98.1 F 07/26/19 06:00 Pulse Rate 89 07/26/19 06:00 Respiratory Rate 20 07/26/19 06:00 Blood Pressure 119/87 07/26/19 06:00 O2 Sat by Pulse Oximetry (%) 92 L 07/25/19 21:00 Constitutional: Yes: Calm Eyes: Yes: Conjunctiva Clear HENT: Yes: Atraumatic Neck: Yes: Supple Cardiovascular: Yes: S1, S2 Respiratory: Yes: On Nasal O2 Gastrointestinal: Yes: Normal Bowel Sounds, Soft Genitourinary: Yes: WNL Musculoskeletal: Yes: WNL Edema: No Neurological: Yes: Oriented Psychiatric: Yes: Oriented Labs: CBC, BMP 07/26/19 07:02 07/26/19 07:02 INR, PTT INR 1.69 (0.83-1.09) H 07/23/19 09:14 Problem List - Problems (1) Acute kidney injury Code(s): N17.9 - ACUTE KIDNEY FAILURE, UNSPECIFIED (2) Elevated liver enzymes Code(s): R74.8 - ABNORMAL LEVELS OF OTHER SERUM ENZYMES (3) Opioid overdose Code(s): T40.2X1A - POISONING BY OTH OPIOIDS, ACCIDENTAL (UNINTENTIONAL), INIT Qualifiers: Encounter type: initial encounter Injury intent: accidental or unintentional Qualified Code(s): T40.2X1A - Poisoning by other opioids, accidental (unintentional), initial encounter Assessment/Plan Current Medications Generic Name Dose Route Start Last Admin Trade Name Freq PRN Reason Stop Dose Admin Albuterol Sulfate 1 amp 07/23/19 06:05 Ventolin 0.083% Nebulizer Soln - NEB RQID PRN SHORT OF BREATH/WHEEZING Albuterol/Ipratropium 1 amp 07/23/19 08:00 07/26/19 07:30 Duoneb - NEB 1 amp RQID [facility] Administration Chlorhexidine Gluconate 1 applic 07/23/19 22:00 07/25/19 22:20 Hibiclens For Decolonization - TP Not Given HS [facility] Diltiazem HCl 120 mg 07/23/19 10:00 07/26/19 09:16 Cardizem Cd - PO 120 mg DAILY [facility] Administration Diltiazem HCl 5 mg 07/23/19 10:50 Cardizem Injection - IVPUSH Q4H PRN TACHYCARDIA Enoxaparin Sodium 90 mg 07/23/19 10:00 07/26/19 09:40 Lovenox - SQ 90 mg BID [facility] Administration Folic Acid 1 mg 07/23/19 10:00 07/26/19 09:16 Folic Acid - PO 1 mg DAILY [facility] Administration Ceftriaxone Sodium 1 gm/ 50 mls @ 100 mls/hr 07/23/19 11:00 07/26/19 09:16 Dextrose IVPB 100 mls/hr DAILY [facility] Administration Protocol Sodium Chloride 1,000 mls @ 125 mls/hr 07/25/19 08:37 07/25/19 09:05 Normal Saline - IV 125 mls/hr ASDIR [facility] Administration Lactulose 20 gm 07/25/19 18:45 07/26/19 00:34 Cephulac (Oral Use) PO 20 gm TID PRN Administration CONSTIPATION Methylprednisolone Sodium Succinate 40 mg 07/24/19 11:15 07/26/19 09:15 Solu-Medrol - IVPUSH 40 mg Q8H-IV [facility] Administration Multivitamins/Minerals/Vitamin C 1 tab 07/23/19 10:00 07/26/19 09:16 Tab-A-Vit - PO 1 tab DAILY [facility] Administration Mupirocin 1 applic 07/23/19 10:00 07/26/19 09:17 Bactroban Ointment (For Decolonization) - NS 07/28/19 09:59 Not Given BID [facility] Oxycodone HCl 10 mg 07/25/19 18:47 Roxicodone - PO Q8H PRN PAIN LEVEL 4 - 6 Pantoprazole Sodium 40 mg 07/23/19 10:00 07/26/19 09:16 Protonix - PO 40 mg DAILY [facility] Administration Sotalol HCl 80 mg 07/23/19 11:00 07/26/19 09:16 Betapace - PO 80 mg BID [facility] Administration Thiamine HCl 100 mg 07/23/19 10:00 07/26/19 09:16 Vitamin B1 - PO 100 mg DAILY [facility] Administration Impression 1. opioid overdose 2. felisha 3. transaminitis 4. lung cancer 5. copd 6. htn 7. hld 8. hyperkalemia Plan - renal function improved - potassium improved - can decrease fluids - repeat labs in am - avoid nsaids
[2019-07-26 12:43] LABS: ANISOCYTOSIS 1+; MACROCYTOSIS 1+; OVALOCYTE 1+; PLATELET ESTIMATE NORMAL; TARGET CELLS 1+; TEAR DROP CELLS 1+
--- NOTE | 2019-07-26 15:57 | PN ---
Progress Note (short form) - Note Progress Note: PULMONARY Breathing better. On HFOT 50L/min, 50% FiO2. No fevers recorded. Vital Signs Period Temp Pulse Resp BP Sys/Gtz Pulse Ox Last 24 Hr 97.2 F-98.7 F 84-98 20-20 86-130/50-87 92-92 Gen: more alert, awake Heart: RRR Lung: decreased breath sounds at the bases Abd: soft, nontender Ext: no edema CBC, BMP 07/26/19 07:02 07/26/19 07:02 Active Medications Albuterol Sulfate (Ventolin 0.083% Nebulizer Soln -) 1 amp NEB RQID PRN PRN Reason: SHORT OF BREATH/WHEEZING Albuterol/Ipratropium (Duoneb -) 1 amp NEB RQID [facility] Last Admin: 07/26/19 11:00 Dose: 1 amp Chlorhexidine Gluconate (Hibiclens For Decolonization -) 1 applic TP HS [facility] Last Admin: 07/25/19 22:20 Dose: Not Given Diltiazem HCl (Cardizem Cd -) 120 mg PO DAILY [facility] Last Admin: 07/26/19 09:16 Dose: 120 mg Diltiazem HCl (Cardizem Injection -) 5 mg IVPUSH Q4H PRN PRN Reason: TACHYCARDIA Enoxaparin Sodium (Lovenox -) 90 mg SQ BID [facility] Last Admin: 07/26/19 09:40 Dose: 90 mg Folic Acid (Folic Acid -) 1 mg PO DAILY [facility] Last Admin: 07/26/19 09:16 Dose: 1 mg Ceftriaxone Sodium 1 gm/ (Dextrose) 50 mls @ 100 mls/hr IVPB DAILY [facility]; Protocol Last Admin: 07/26/19 09:16 Dose: 100 mls/hr Sodium Chloride (Normal Saline -) 1,000 mls @ 100 mls/hr IV ASDIR [facility] Lactulose (Cephulac (Oral Use)) 20 gm PO TID PRN PRN Reason: CONSTIPATION Last Admin: 07/26/19 00:34 Dose: 20 gm Methylprednisolone Sodium Succinate (Solu-Medrol -) 40 mg IVPUSH Q8H-IV [facility] Last Admin: 07/26/19 09:15 Dose: 40 mg Multivitamins/Minerals/Vitamin C (Tab-A-Vit -) 1 tab PO DAILY [facility] Last Admin: 07/26/19 09:16 Dose: 1 tab Mupirocin (Bactroban Ointment (For Decolonization) -) 1 applic NS BID [facility] Stop: 07/28/19 09:59 Last Admin: 07/26/19 09:17 Dose: Not Given Oxycodone HCl (Roxicodone -) 10 mg PO Q8H PRN PRN Reason: PAIN LEVEL 4 - 6 Pantoprazole Sodium (Protonix -) 40 mg PO DAILY [facility] Last Admin: 07/26/19 09:16 Dose: 40 mg Sotalol HCl (Betapace -) 80 mg PO BID [facility] Last Admin: 07/26/19 09:16 Dose: 80 mg Thiamine HCl (Vitamin B1 -) 100 mg PO DAILY [facility] Last Admin: 07/26/19 09:16 Dose: 100 mg A/P Altered Mental Status improving Acute on Chronic Hypoxic Respiratory Failure Opioid Overdose Elevated LFTs likely Ischemic Injury Acute Kidney Injury Metastatic Squamous Cell Cancer on chemo Acute COPD Exacerbation h/o PE/SVC thrombus Atrial Fibrillation with RVR HTN Hyperlipidemia - O2 to keep SpO2 >90% - IVF - trend LFTs - monitor urine output, creatinine - empiric antibiotics for now - continue medrol - inhaled bronchodilators - rate control - continue anticoagulation
--- NOTE | 2019-07-26 16:45 | PN ---
Progress Note (short form) - Note Progress Note: Patient seen and examined Remains somewhat sleepy. Received 30 mg of methadone in ICU which may be contributing in light of abnormal LFT's Last Vital Signs Temp Pulse Resp BP Pulse Ox 98.7 F 84 20 125/82 92 L 07/26/19 14:00 07/26/19 14:00 07/26/19 10:00 07/26/19 14:00 07/26/19 09:00 HEENT: ROSARIO, EOM Intact Oropharynx: No thrush, No mucositis, high flow oxygen Neck: Supple Cor: RSR, No murmurs, No gallops Lungs: diminished breath sounds rhonchi, rales Abd: Soft, Normal bowel sounds, No organomegaly Ext:No significant edema Skin: No rashes, Integument intact CBC, BMP 07/26/19 07:02 07/26/19 07:02 Abnormal Lab Results 07/23/19 07/25/19 07/25/19 06:48 19:30 20:20 WBC RBC Hgb Hct MCV MCHC RDW Absolute Neuts (auto) Neutrophils % Lymphocytes % Lymphocytes % (Manual) Nucleated RBC % Anion Gap BUN Random Glucose Calcium Ferritin AST ALT Alkaline Phosphatase Liver GGT 105 H Liver Fibrosis ALT 2328 H Ammonia 59.60 H Total Protein Albumin Apolipoprotein A-1 74 L Opiates Screen Positive A* Methadone Screen Positive A* 07/26/19 07/26/19 07/26/19 07:02 07:02 07:02 WBC 22.1 H RBC 2.82 L Hgb 8.7 L Hct 27.8 L MCV 98.5 H MCHC 31.2 L RDW 20.5 H Absolute Neuts (auto) 19.9 H Neutrophils % 90.0 H Lymphocytes % 3.1 L D Lymphocytes % (Manual) 2.1 L D Nucleated RBC % 1 H Anion Gap 5 L BUN 22.0 H Random Glucose 144 H Calcium 7.3 L Ferritin 4893.4 H AST 515 H ALT 1879 H Alkaline Phosphatase 134 H Liver GGT Liver Fibrosis ALT Ammonia Total Protein 6.1 L Albumin 3.1 L Apolipoprotein A-1 Opiates Screen Methadone Screen Current Medications Generic Name Dose Route Start Last Admin Trade Name Freq PRN Reason Stop Dose Admin Albuterol Sulfate 1 amp 07/23/19 06:05 Ventolin 0.083% Nebulizer Soln - NEB RQID PRN SHORT OF BREATH/WHEEZING Albuterol/Ipratropium 1 amp 07/23/19 08:00 07/26/19 15:30 Duoneb - NEB 1 amp RQID [facility] Administration Chlorhexidine Gluconate 1 applic 07/23/19 22:00 07/25/19 22:20 Hibiclens For Decolonization - TP Not Given HS [facility] Diltiazem HCl 120 mg 07/23/19 10:00 07/26/19 09:16 Cardizem Cd - PO 120 mg DAILY [facility] Administration Diltiazem HCl 5 mg 07/23/19 10:50 Cardizem Injection - IVPUSH Q4H PRN TACHYCARDIA Enoxaparin Sodium 90 mg 07/23/19 10:00 07/26/19 09:40 Lovenox - SQ 90 mg BID [facility] Administration Folic Acid 1 mg 07/23/19 10:00 07/26/19 09:16 Folic Acid - PO 1 mg DAILY [facility] Administration Ceftriaxone Sodium 1 gm/ 50 mls @ 100 mls/hr 07/23/19 11:00 07/26/19 09:16 Dextrose IVPB 100 mls/hr DAILY [facility] Administration Protocol Sodium Chloride 1,000 mls @ 100 mls/hr 07/26/19 11:26 Normal Saline - IV ASDIR [facility] Lactulose 20 gm 07/25/19 18:45 07/26/19 00:34 Cephulac (Oral Use) PO 20 gm TID PRN Administration CONSTIPATION Methylprednisolone Sodium Succinate 40 mg 07/24/19 11:15 07/26/19 09:15 Solu-Medrol - IVPUSH 40 mg Q8H-IV [facility] Administration Multivitamins/Minerals/Vitamin C 1 tab 07/23/19 10:00 07/26/19 09:16 Tab-A-Vit - PO 1 tab DAILY [facility] Administration Mupirocin 1 applic 07/23/19 10:00 07/26/19 09:17 Bactroban Ointment (For Decolonization) - NS 07/28/19 09:59 Not Given BID [facility] Oxycodone HCl 10 mg 07/25/19 18:47 Roxicodone - PO Q8H PRN PAIN LEVEL 4 - 6 Pantoprazole Sodium 40 mg 07/23/19 10:00 07/26/19 09:16 Protonix - PO 40 mg DAILY [facility] Administration Sotalol HCl 80 mg 07/23/19 11:00 07/26/19 09:16 Betapace - PO 80 mg BID [facility] Administration Thiamine HCl 100 mg 07/23/19 10:00 07/26/19 09:16 Vitamin B1 - PO 100 mg DAILY [facility] Administration Impression: SCC of lung Opiod dependence Abnormal LFT's--improving Awaiting pain management Monitoring of LFT's. Continue with antibiotics
[2019-07-26] MEDS ORDERED: ALBUTEROL SO4 0.083% IH SOL 2.5 MG/3 ML VIAL.NEB. NEB PRN (19:47)
[2019-07-26] MEDS ORDERED: dilTIAZem HCL 50 MG/10 ML - 10 ML VIAL IVPUSH PRN (19:47)
[2019-07-26] MEDS ORDERED: MUPIROCIN 2% TOPICAL OINTMENT FOR DECOLONIZATION NS SCH (22:00)
[2019-07-26] MEDS ORDERED: CHLORHEXIDINE GLUCONATE 4% CLEANSER FOR DECOLONIZATION TP SCH (22:00)
[2019-07-26] MEDS: oxyCODONE HCL 5 MG TABLET PO PRN (22:02)
[2019-07-27] MEDS ORDERED: methylPREDNISolone NA SUCC 40 MG/1 ML VIAL IVPUSH SCH (02:00)
--- NOTE | 2019-07-27 07:52 | PN.GI ---
GI Progress Note Subjective: Patient labs from 07/26/19 show improvement in LFTs, AST 515, ALT 1819, Alk Phos 134. Denies nausea, vomiting, abdominal pain, constipation, diarrhea, rectal bleeding or melena. - Objective Vital Signs: Vital Signs Temperature 98.1 F 07/27/19 06:00 Pulse Rate 78 07/27/19 06:00 Respiratory Rate 07/27/19 06:00 Blood Pressure 146/88 07/27/19 06:00 O2 Sat by Pulse Oximetry (%) 92 L 07/26/19 21:00 Constitutional: No Distress, Calm Eyes: Yes: Conjunctiva Clear HENT: Yes: Atraumatic Cardiovascular: Yes: Regular Rate and Rhythm Respiratory: Yes: Regular, CTA Bilaterally Gastrointestinal Inspection: Yes: WNL. No: Ascites, Distention, Hernia, Scars, Other ...Auscultate: Yes: Normoactive Bowel Sounds. No: Hyperactive Bowel Sounds, Hypoactive Bowel Sounds, No Bowel Sounds, Other ...Palpate: Yes: Soft. No: Firm/Rigid, Guarding, Hepatomegaly, Mass, Pulsatile Mass, Splenomegaly, Tenderness, Tenderness, Epigastium, Tenderness, Rebound, Other ...Percussion: Yes: Tympanitic. No: Dullness, Fluid Wave, Other Neurological: Yes: Alert, Oriented Psychiatric: Yes: Alert, Oriented Labs: CBC, BMP 07/26/19 07:02 07/26/19 07:02 INR, PTT INR 1.69 (0.83-1.09) H 07/23/19 09:14 Active Medications Generic Name Dose Route Start Last Admin Trade Name Freq PRN Reason Stop Dose Admin Albuterol Sulfate 1 amp 07/26/19 19:47 Ventolin 0.083% Nebulizer Soln - NEB Q6H PRN SHORT OF BREATH/WHEEZING Albuterol/Ipratropium 1 amp 07/26/19 20:00 07/26/19 20:15 Duoneb - NEB 1 amp RQID [facility] Administration Diltiazem HCl 120 mg 07/27/19 10:00 Cardizem Cd - PO DAILY [facility] Diltiazem HCl 5 mg 07/26/19 19:47 Cardizem Injection - IVPUSH Q4H PRN TACHYCARDIA Enoxaparin Sodium 90 mg 07/26/19 22:00 07/26/19 22:02 Lovenox - SQ 90 mg BID [facility] Administration Folic Acid 1 mg 07/27/19 10:00 Folic Acid - PO DAILY [facility] Sodium Chloride 1,000 mls @ 100 mls/hr 07/26/19 11:26 Normal Saline - IV ASDIR [facility] Ceftriaxone Sodium 1 gm/ 50 mls @ 100 mls/hr 07/27/19 10:00 Dextrose IVPB DAILY [facility] Protocol Lactulose 20 gm 07/25/19 18:45 07/26/19 00:34 Cephulac (Oral Use) PO 20 gm TID PRN Administration CONSTIPATION Methylprednisolone Sodium Succinate 40 mg 07/27/19 02:00 07/27/19 02:20 Solu-Medrol - IVPUSH 40 mg Q8H-IV [facility] Administration Multivitamins/Minerals/Vitamin C 1 tab 07/27/19 10:00 Tab-A-Vit - PO DAILY [facility] Oxycodone HCl 10 mg 07/25/19 18:47 07/26/19 22:02 Roxicodone - PO 10 mg Q8H PRN Administration PAIN LEVEL 4 - 6 Pantoprazole Sodium 40 mg 07/27/19 10:00 Protonix - PO DAILY [facility] Sotalol HCl 80 mg 07/26/19 22:00 07/26/19 22:01 Betapace - PO 80 mg BID [facility] Administration Thiamine HCl 100 mg 07/27/19 10:00 Vitamin B1 - PO DAILY [facility] Problem List - Problems (1) Hepatocellular injury Assessment/Plan: --severe secondary to Ischemic Hepatitis R> LFTs are improving continue to monitor LFTs continue IV hydration Code(s): K76.9 - LIVER DISEASE, UNSPECIFIED
[2019-07-27] MEDS: ALBUTEROL SO4 2.5/IPRATROPIUM 0.5 INH SOL 3 ML VIAL.NEB. NEB SCH ×4 (08:00→20:09)
--- NOTE | 2019-07-27 08:27 | PN ---
Progress Note, Physician - Current Medication List Current Medications: Active Medications Albuterol Sulfate (Ventolin 0.083% Nebulizer Soln -) 1 amp NEB Q6H PRN PRN Reason: SHORT OF BREATH/WHEEZING Albuterol/Ipratropium (Duoneb -) 1 amp NEB RQID [facility] Last Admin: 07/26/19 20:15 Dose: 1 amp Diltiazem HCl (Cardizem Cd -) 120 mg PO DAILY [facility] Diltiazem HCl (Cardizem Injection -) 5 mg IVPUSH Q4H PRN PRN Reason: TACHYCARDIA Enoxaparin Sodium (Lovenox -) 90 mg SQ BID [facility] Last Admin: 07/26/19 22:02 Dose: 90 mg Folic Acid (Folic Acid -) 1 mg PO DAILY [facility] Sodium Chloride (Normal Saline -) 1,000 mls @ 100 mls/hr IV ASDIR [facility] Ceftriaxone Sodium 1 gm/ (Dextrose) 50 mls @ 100 mls/hr IVPB DAILY [facility]; Protocol Lactulose (Cephulac (Oral Use)) 20 gm PO TID PRN PRN Reason: CONSTIPATION Last Admin: 07/26/19 00:34 Dose: 20 gm Methylprednisolone Sodium Succinate (Solu-Medrol -) 40 mg IVPUSH Q8H-IV [facility] Last Admin: 07/27/19 02:20 Dose: 40 mg Multivitamins/Minerals/Vitamin C (Tab-A-Vit -) 1 tab PO DAILY [facility] Oxycodone HCl (Roxicodone -) 10 mg PO Q8H PRN PRN Reason: PAIN LEVEL 4 - 6 Last Admin: 07/26/19 22:02 Dose: 10 mg Pantoprazole Sodium (Protonix -) 40 mg PO DAILY [facility] Sotalol HCl (Betapace -) 80 mg PO BID [facility] Last Admin: 07/26/19 22:01 Dose: 80 mg Thiamine HCl (Vitamin B1 -) 100 mg PO DAILY [facility] - Objective Vital Signs: Vital Signs Temperature 98.1 F 07/27/19 06:00 Pulse Rate 78 07/27/19 06:00 Respiratory Rate 20 07/27/19 06:00 Blood Pressure 146/88 07/27/19 06:00 O2 Sat by Pulse Oximetry (%) 92 L 07/26/19 21:00 Cardiovascular: Yes: S1, S2 Respiratory: Yes: Diminished, On Nasal O2 Gastrointestinal: Yes: Normal Bowel Sounds, Soft Labs: CBC, BMP 07/26/19 07:02 07/26/19 07:02 INR, PTT INR 1.69 (0.83-1.09) H 07/23/19 09:14 Assessment/Plan - Problems (1) Acute kidney injury Assessment/Plan: -nephrology consult -Monitor trend -DC IVF Problems reviewed: Yes Code(s): N17.9 - ACUTE KIDNEY FAILURE, UNSPECIFIED (2) Elevated liver enzymes Assessment/Plan: -2/2 to ischemic hepatitis-Improving -Continue IVF -Monitor trend Problems reviewed: Yes Code(s): R74.8 - ABNORMAL LEVELS OF OTHER SERUM ENZYMES (3) Opioid overdose Assessment/Plan: -Nalaxone dc'd as pt's mental status is improving -Neuro check -ICU monitoring -BACK ON PAIN MEDS--USING MORPHINE AND OXYCODONE FOR PAIN BUT GETTING LETHARGIC- -AWAIT PAIN CONSULT Problems reviewed: Yes Code(s): T40.2X1A - POISONING BY OTH OPIOIDS, ACCIDENTAL (UNINTENTIONAL), INIT Qualifiers: Encounter type: initial encounter Injury intent: accidental or unintentional Qualified Code(s): T40.2X1A - Poisoning by other opioids, accidental (unintentional), initial encounter (4) Afib Assessment/Plan: -Chronic -Rate controlled -Lovenox Problems reviewed: Yes Code(s): I48.91 - UNSPECIFIED ATRIAL FIBRILLATION (5) SVC syndrome Problems reviewed: Yes on lovenox Code(s): I87.1 - COMPRESSION OF VEIN (6) Squamous cell lung cancer Assessment/Plan: -Oncology consult -Palliative consult Problems reviewed: Yes Code(s): C34.90 - MALIGNANT NEOPLASM OF UNSP PART OF UNSP BRONCHUS OR LUNG (7) Pneumonia Assessment/Plan: -On ABx -Cxr -ID
[2019-07-27] MEDS ORDERED: cefTRIAXone SODIUM 1 GM VIAL ONE (09:05)
[2019-07-27] MEDS ORDERED: DEXTROSE 5%-WATER - 50 ML IVPB ONE (09:05)
[2019-07-27] MEDS: oxyCODONE HCL 5 MG TABLET PO PRN ×2 (09:46→21:46)
[2019-07-27] MEDS: SOTALOL HCL 80 MG TABLET (FP) PO SCH ×2 (09:46→21:37)
[2019-07-27] MEDS: THIAMINE HCL 100 MG TABLET (FP) PO SCH (09:46)
[2019-07-27] MEDS: MULTIVITAMINS (DAILY MVI) TABLET (FP) PO SCH (09:46)
[2019-07-27] MEDS: FOLIC ACID 1 MG TABLET (FP) PO SCH (09:46)
[2019-07-27] MEDS: PANTOPRAZOLE 40 MG TABLET PO SCH (09:46)
[2019-07-27] MEDS: CEFTRIAXONE 1 GM in DEXTROSE 5%-WATER - 50 ML IVPB SCH (09:47)
[2019-07-27] MEDS: ENOXAPARIN NA (PORCINE) 100 MG/1 ML DISP.SYRIN SQ SCH ×2 (09:47→21:37)
[2019-07-27] MEDS: predniSONE 10 MG TABLET (UD) PO SCH ×2 (09:48→21:37)
--- NOTE | 2019-07-27 11:34 | PN ---
Physical Exam: SUBJECTIVE: Patient seen and examined no acute events over night on high fow 40/40 OBJECTIVE: Vital Signs Period Temp Pulse Resp BP Sys/Gtz Pulse Ox Last 24 Hr 98.1 F-98.7 F 78-91 20-20 125-146/78-88 92 GENERAL: AAOx2 , lethargic sleepy on high flow 40/40 HEAD: NC/AT ENT: MMM no oral thrush NECK: supple. no lymphadenoapthy LUNGS: very weak inspiratory effort , some wheezing HEART: sinus tachy, S1, S2 without murmur, rub or gallop. ABDOMEN: Soft, nontender, nondistended, normoactive bowel sounds, EXTREMITIES: 2+ pulses, warm, well-perfused, no edema. NEUROLOGICAL: no focal deficit , lethargic , sleepy no breast mass palpated nodes not enlarged Laboratory Results - last 24 hr 07/23/19 07/26/19 06:48 07:02 Neutrophils % (Manual) 76.0 Band Neutrophils % 12.5 Lymphocytes % (Manual) 2.1 L D Monocytes % (Manual) 5 Eosinophils % (Manual) 0.0 Basophils % (Manual) 0.0 Myelocytes % (Man) 2 D Promyelocytes % (Man) 1 D Blast Cells % (Manual) 0 Nucleated RBC % 1 H Metamyelocytes 0 D Hypochromia 0 Platelet Estimate Normal Platelet Comment Present Polychromasia 0 Poikilocytosis 1+ Anisocytosis 1+ Microcytosis 0 Macrocytosis 1+ Target Cells 1+ Tear Drop Cells 1+ Ovalocytes 1+ Tsering Cells 1+ IgE 3 L Active Medications Generic Name Dose Route Start Last Admin Trade Name Roryq PRN Reason Stop Dose Admin Albuterol Sulfate 1 amp 07/26/19 19:47 Ventolin 0.083% Nebulizer Soln - NEB Q6H PRN SHORT OF BREATH/WHEEZING Albuterol/Ipratropium 1 amp 07/26/19 20:00 07/27/19 11:31 Duoneb - NEB 1 amp RQID [facility] Administration Diltiazem HCl 120 mg 07/27/19 10:00 07/27/19 09:47 Cardizem Cd - PO 120 mg DAILY [facility] Administration Diltiazem HCl 5 mg 07/26/19 19:47 Cardizem Injection - IVPUSH Q4H PRN TACHYCARDIA Enoxaparin Sodium 90 mg 07/26/19 22:00 07/27/19 09:47 Lovenox - SQ 90 mg BID [facility] Administration Folic Acid 1 mg 07/27/19 10:00 07/27/19 09:46 Folic Acid - PO 1 mg DAILY [facility] Administration Ceftriaxone Sodium 1 gm/ 50 mls @ 100 mls/hr 07/27/19 10:00 07/27/19 09:47 Dextrose IVPB 100 mls/hr DAILY [facility] Administration Protocol Lactulose 20 gm 07/25/19 18:45 07/26/19 00:34 Cephulac (Oral Use) PO 20 gm TID PRN Administration CONSTIPATION Multivitamins/Minerals/Vitamin C 1 tab 07/27/19 10:00 07/27/19 09:46 Tab-A-Vit - PO 1 tab DAILY [facility] Administration Oxycodone HCl 10 mg 07/25/19 18:47 07/27/19 09:46 Roxicodone - PO 10 mg Q8H PRN Administration PAIN LEVEL 4 - 6 Pantoprazole Sodium 40 mg 07/27/19 10:00 07/27/19 09:46 Protonix - PO 40 mg DAILY [facility] Administration Prednisone 30 mg 07/27/19 10:00 07/27/19 09:48 Deltasone - PO 30 mg BID [facility] Administration Sotalol HCl 80 mg 07/26/19 22:00 07/27/19 09:46 Betapace - PO 80 mg BID [facility] Administration Thiamine HCl 100 mg 07/27/19 10:00 07/27/19 09:46 Vitamin B1 - PO 100 mg DAILY [facility] Administration CBC, BMP 07/26/19 07:02 07/26/19 07:02 ASSESSMENT/PLAN: # SCC lung on gemzar therapy on venti mask # worsening leuckocytosis , H/H stable # opioid overdose S/P naloxone , consult pain management #MIRIAM # transaminitis 2/2 ischemic liver injury , trend AST, ALT , GI on board # copd # HTN #HLD # Elevated ferritin # H/O stent SVC # PE conr lovenox 90 BID SQ cont abx cont steroids cont hydration nurse called pain management Dr bullard started on oxycodon 10 mg Q 8hr PRN Will check NH3 level and begin lactulose Hyperkalemia per primary team constipation consider add miralax and senna as pt is on high dose opioids Visit type - Emergency Visit Emergency Visit: Yes ED Registration Date: 07/22/19 Care time: The patient presented to the Emergency Department on the above date and was hospitalized for further evaluation of their emergent condition. - New Patient This patient is new to me today: No - Critical Care Critical Care patient: No - Discharge Referral Referred to [facility] Med P.C.: No ATTENDING PHYSICIAN STATEMENT I saw and evaluated the patient. I reviewed the resident's note and discussed the case with the resident. I agree with the resident's findings and plan as documented. SUBJECTIVE: OBJECTIVE: ASSESSMENT AND PLAN:
--- NOTE | 2019-07-27 12:55 | PN ---
Progress Note, Physician History of Present Illness: Pt seen and examined at bedside. He is awake and alert. - Current Medication List Current Medications: Active Medications Albuterol Sulfate (Ventolin 0.083% Nebulizer Soln -) 1 amp NEB Q6H PRN PRN Reason: SHORT OF BREATH/WHEEZING Albuterol/Ipratropium (Duoneb -) 1 amp NEB RQID [facility] Last Admin: 07/27/19 11:31 Dose: 1 amp Diltiazem HCl (Cardizem Cd -) 120 mg PO DAILY [facility] Last Admin: 07/27/19 09:47 Dose: 120 mg Diltiazem HCl (Cardizem Injection -) 5 mg IVPUSH Q4H PRN PRN Reason: TACHYCARDIA Enoxaparin Sodium (Lovenox -) 90 mg SQ BID [facility] Last Admin: 07/27/19 09:47 Dose: 90 mg Folic Acid (Folic Acid -) 1 mg PO DAILY [facility] Last Admin: 07/27/19 09:46 Dose: 1 mg Ceftriaxone Sodium 1 gm/ (Dextrose) 50 mls @ 100 mls/hr IVPB DAILY [facility]; Protocol Last Admin: 07/27/19 09:47 Dose: 100 mls/hr Lactulose (Cephulac (Oral Use)) 20 gm PO TID PRN PRN Reason: CONSTIPATION Last Admin: 07/26/19 00:34 Dose: 20 gm Multivitamins/Minerals/Vitamin C (Tab-A-Vit -) 1 tab PO DAILY [facility] Last Admin: 07/27/19 09:46 Dose: 1 tab Oxycodone HCl (Roxicodone -) 10 mg PO Q8H PRN PRN Reason: PAIN LEVEL 4 - 6 Last Admin: 07/27/19 09:46 Dose: 10 mg Pantoprazole Sodium (Protonix -) 40 mg PO DAILY [facility] Last Admin: 07/27/19 09:46 Dose: 40 mg Prednisone (Deltasone -) 30 mg PO BID [facility] Last Admin: 07/27/19 09:48 Dose: 30 mg Sotalol HCl (Betapace -) 80 mg PO BID [facility] Last Admin: 07/27/19 09:46 Dose: 80 mg Thiamine HCl (Vitamin B1 -) 100 mg PO DAILY [facility] Last Admin: 07/27/19 09:46 Dose: 100 mg - Objective Vital Signs: Vital Signs Temperature 98.7 F 07/27/19 09:00 Pulse Rate 82 07/27/19 09:00 Respiratory Rate 18 07/27/19 09:00 Blood Pressure 138/77 07/27/19 09:00 O2 Sat by Pulse Oximetry (%) 92 L 07/26/19 21:00 Constitutional: Yes: Calm Eyes: Yes: Conjunctiva Clear HENT: Yes: Atraumatic Cardiovascular: Yes: S1, S2 Respiratory: Yes: On Nasal O2 Gastrointestinal: Yes: Soft Genitourinary: Yes: WNL Musculoskeletal: Yes: WNL Edema: No Neurological: Yes: Oriented Labs: CBC, BMP 07/26/19 07:02 07/26/19 07:02 INR, PTT INR 1.69 (0.83-1.09) H 07/23/19 09:14 Problem List - Problems (1) Acute kidney injury Code(s): N17.9 - ACUTE KIDNEY FAILURE, UNSPECIFIED (2) Elevated liver enzymes Code(s): R74.8 - ABNORMAL LEVELS OF OTHER SERUM ENZYMES (3) Opioid overdose Code(s): T40.2X1A - POISONING BY OTH OPIOIDS, ACCIDENTAL (UNINTENTIONAL), INIT Qualifiers: Encounter type: initial encounter Injury intent: accidental or unintentional Qualified Code(s): T40.2X1A - Poisoning by other opioids, accidental (unintentional), initial encounter Assessment/Plan Current Medications Generic Name Dose Route Start Last Admin Trade Name Freq PRN Reason Stop Dose Admin Albuterol Sulfate 1 amp 07/26/19 19:47 Ventolin 0.083% Nebulizer Soln - NEB Q6H PRN SHORT OF BREATH/WHEEZING Albuterol/Ipratropium 1 amp 07/26/19 20:00 07/27/19 11:31 Duoneb - NEB 1 amp RQID [facility] Administration Diltiazem HCl 120 mg 07/27/19 10:00 07/27/19 09:47 Cardizem Cd - PO 120 mg DAILY [facility] Administration Diltiazem HCl 5 mg 07/26/19 19:47 Cardizem Injection - IVPUSH Q4H PRN TACHYCARDIA Enoxaparin Sodium 90 mg 07/26/19 22:00 07/27/19 09:47 Lovenox - SQ 90 mg BID [facility] Administration Folic Acid 1 mg 07/27/19 10:00 01/23/20 09:46 Folic Acid - PO 1 mg DAILY [facility] Administration Ceftriaxone Sodium 1 gm/ 50 mls @ 100 mls/hr 07/27/19 10:00 07/27/19 09:47 Dextrose IVPB 100 mls/hr DAILY [facility] Administration Protocol Lactulose 20 gm 07/25/19 18:45 07/26/19 00:34 Cephulac (Oral Use) PO 20 gm TID PRN Administration CONSTIPATION Multivitamins/Minerals/Vitamin C 1 tab 07/27/19 10:00 07/27/19 09:46 Tab-A-Vit - PO 1 tab DAILY [facility] Administration Oxycodone HCl 10 mg 07/25/19 18:47 07/27/19 09:46 Roxicodone - PO 10 mg Q8H PRN Administration PAIN LEVEL 4 - 6 Pantoprazole Sodium 40 mg 07/27/19 10:00 07/27/19 09:46 Protonix - PO 40 mg DAILY [facility] Administration Prednisone 30 mg 07/27/19 10:00 07/27/19 09:48 Deltasone - PO 30 mg BID [facility] Administration Sotalol HCl 80 mg 07/26/19 22:00 07/27/19 09:46 Betapace - PO 80 mg BID [facility] Administration Thiamine HCl 100 mg 07/27/19 10:00 07/27/19 09:46 Vitamin B1 - PO 100 mg DAILY [facility] Administration Impression 1. opioid overdose 2. felisha 3. transaminitis 4. lung cancer 5. copd 6. htn 7. hld 8. hyperkalemia Plan - renal function had stabilized - can stop fluids - repeat labs in am - avoid nsaids
--- NOTE | 2019-07-27 12:55 | PN ---
Progress Note (short form) - Note Progress Note: Breathing better on HFOT 40L / 40% FiO2. No fevers recorded. Intake & Output 07/24/19 07/25/19 07/26/19 07/27/19 23:59 23:59 23:59 23:59 Intake Total 850 1618 1840 1020 Balance 850 1618 1840 1020 Weight 199 lb 3 oz Last Vital Signs Temp Pulse Resp BP Pulse Ox 98.7 F 82 18 138/77 92 L 07/27/19 09:00 07/27/19 09:00 07/27/19 09:00 07/27/19 09:00 07/26/19 21:00 Active Medications Albuterol Sulfate (Ventolin 0.083% Nebulizer Soln -) 1 amp NEB Q6H PRN PRN Reason: SHORT OF BREATH/WHEEZING Albuterol/Ipratropium (Duoneb -) 1 amp NEB RQID [facility] Last Admin: 07/27/19 11:31 Dose: 1 amp Diltiazem HCl (Cardizem Cd -) 120 mg PO DAILY [facility] Last Admin: 07/27/19 09:47 Dose: 120 mg Diltiazem HCl (Cardizem Injection -) 5 mg IVPUSH Q4H PRN PRN Reason: TACHYCARDIA Enoxaparin Sodium (Lovenox -) 90 mg SQ BID [facility] Last Admin: 07/27/19 09:47 Dose: 90 mg Folic Acid (Folic Acid -) 1 mg PO DAILY [facility] Last Admin: 07/27/19 09:46 Dose: 1 mg Ceftriaxone Sodium 1 gm/ (Dextrose) 50 mls @ 100 mls/hr IVPB DAILY [facility]; Protocol Last Admin: 07/27/19 09:47 Dose: 100 mls/hr Lactulose (Cephulac (Oral Use)) 20 gm PO TID PRN PRN Reason: CONSTIPATION Last Admin: 07/26/19 00:34 Dose: 20 gm Multivitamins/Minerals/Vitamin C (Tab-A-Vit -) 1 tab PO DAILY [facility] Last Admin: 07/27/19 09:46 Dose: 1 tab Oxycodone HCl (Roxicodone -) 10 mg PO Q8H PRN PRN Reason: PAIN LEVEL 4 - 6 Last Admin: 07/27/19 09:46 Dose: 10 mg Pantoprazole Sodium (Protonix -) 40 mg PO DAILY [facility] Last Admin: 07/27/19 09:46 Dose: 40 mg Prednisone (Deltasone -) 30 mg PO BID [facility] Last Admin: 07/27/19 09:48 Dose: 30 mg Sotalol HCl (Betapace -) 80 mg PO BID [facility] Last Admin: 07/27/19 09:46 Dose: 80 mg Thiamine HCl (Vitamin B1 -) 100 mg PO DAILY [facility] Last Admin: 07/27/19 09:46 Dose: 100 mg Gen: Awake on HFOT Heart: RRR Lung: decreased breath sounds at the bases Abd: soft, nontender Ext: no edema Laboratory Results - last 24 hr 07/23/19 06:48 IgE 3 L A/P Altered Mental Status improving Acute on Chronic Hypoxic Respiratory Failure Opioid Overdose Elevated LFTs likely Ischemic Injury Acute Kidney Injury Metastatic Squamous Cell Cancer on chemo Acute COPD Exacerbation h/o PE/SVC thrombus Atrial Fibrillation with RVR HTN Hyperlipidemia - HFOT as tolerated - ABX coverage - Prednisone - inhaled bronchodilators - rate control - Lovenox BID Dr Jean
--- NOTE | 2019-07-27 14:31 | CONS ---
PHYSICAL MEDICINE REHABILITATION CONSULTATION DATE OF CONSULTATION: 07/27/2019 REFERRING PHYSICIAN: Anika Veliz MD DATE OF ADMISSION: 07/22/2019 HISTORY OF PRESENT ILLNESS: Patient is a 64-year-old man who has an extensive past medical history which includes lung cancer on chemotherapy, as well as COPD on home oxygen, obstructive sleep apnea and pulmonary embolism, atrial fibrillation, who was admitted to [facility] on July 22, 2019, when he was found unresponsive. Patient was given Naloxone and placed on 100% nonrebreather. On admission, July 22, he had significant elevation of his LFTs with an AST of 1956, ALT 1202. His BUN was elevated at 20.7, to creatinine 2.6. CBC showed leukocytosis with WBC 23.6, hemoglobin 10.4, platelet count 194. Most recent blood work demonstrated some improvement with AST at 515. His ALT, however, increased to 1879 and alkaline phosphatase 134. BUN 22, but creatinine improved to 0.9. CBC: WBC remained elevated at 22,000. Patient was evaluated by Physical Therapy and required minimal assistance to stand, ambulating 5 feet with a rolling walker, close contact guard of two on July 26. He ambulated 8 feet today with contact guard of one using a rolling walker and remains somewhat lethargic. He complains of some generalized muscular chest discomfort which he states is longstanding. PAST MEDICAL AND SURGICAL HISTORY: As above. Atrial fibrillation, pulmonary embolism on Lovenox, lung cancer on chemotherapy, hypertension, hyperlipidemia, SVC syndrome status post stent placement. SOCIAL HISTORY: Lives with family. Multi-level home with stairs. Premorbidly, he was limited, required assistance for ADLs and ambulation. Current function as above. REVIEW OF SYSTEMS: No lightheadedness or dizziness. No headache. No blurry vision, double vision, or change in vision. No nausea, vomiting, difficulty swallowing, difficulty chewing. Poor appetite. Chest discomfort, muscular, worse with movement of the upper extremities. No joint arthralgias in the upper or lower limbs. No bowel/bladder incontinence. No current shortness of breath. He does get dyspneic with any exertion. PHYSICAL EXAMINATION: GENERAL: Tall man, seen lying in bed. No acute distress. HEENT: He is normocephalic and atraumatic. Extraocular muscles appear intact. NECK: Supple. EXTREMITIES: Without any calf tenderness, but there is some edema. NEUROMUSCULAR: He is awake, alert, and cooperative, but a little lethargic. Cranial nerves 2-12 appear grossly intact. He has good range throughout his upper and lower limbs, but proximal weakness. Shoulder girdle 3+/5. Hip girdle 2/5. Better distal strength, 4+/5 buffer inflated pad strength, and 4+/5 dorsiflexion and plantar flexion. At least 3+/5 knee extensor strength. OVERALL IMPRESSION: 1. Deficits in mobility and activities of daily living, multifactorial. 2. Status post accidental overdose on opiates. 3. Status post acute kidney injury. 4. Elevated liver function tests. 5. Underlying chronic obstructive pulmonary disease. 6. Underlying lung cancer on chemotherapy. 7. Obstructive sleep apnea syndrome. 8. History of pulmonary embolism on Lovenox. 9. Anemia. PLAN/SUGGESTION: 1. Continue physical therapy. 2. Out of bed to chair. 3. Continue Lovenox. 4. Skin precaution. 5. Cardiopulmonary precaution. 6. Will require short-term rehabilitation in a senior care facility unless family is able to take care of him at home. Thank you for this referral. HECTOR STEELE M.D. [id number]
--- NOTE | 2019-07-27 16:50 | PN ---
Progress Note (short form) - Note Progress Note: ID CONSULT DICTATED PNEUMONIA S/P UNRESPONSIVENESS LUNG CA OBTAIN SPUTUM C/S CONTINUE EMPIRIC CEFTRIAXONE
--- NOTE | 2019-07-27 17:03 | CONS ---
INFECTIOUS DISEASE CONSULTATION DATE OF CONSULTATION: DATE OF DICTATION: 07/27/2019 HISTORY: The patient is a 64-year-old male with a history of squamous cell carcinoma of the lung evaluated for pneumonia. History was obtained from the chart as he cannot give a history at the present time. He was admitted from home on July 22, 2019, after he was found unresponsive. He had apparently been over medicated with opiate analgesics. He was brought to the emergency room where he was revived. He was empirically treated with ceftriaxone for possible pneumonia in the setting of unresponsiveness, possible aspiration, and known lung cancer. His hospital course has been significant for an elevated white blood cell count on steroids. He is lethargic on high-flow oxygen. He is in no acute respiratory distress. Offers no complaints. He is not noted to have a cough. No recent hospital admissions. He has been receiving chemotherapy last dose of which was on July 11. In the past, sputum cultures have grown Citrobacter and Enterobacter. PAST MEDICAL HISTORY: Positive for squamous cell carcinoma of the lung status post chemotherapy on July 11, 2019, COPD, obstructive sleep apnea, atrial fibrillation, pulmonary embolism, hypertension, hyperlipidemia. PAST SURGICAL HISTORY: Status post cholecystectomy and hernia repair. ALLERGIES: No known allergies. MEDICATIONS: Include albuterol, ceftriaxone, Cardizem, Lovenox, folic acid, lactulose, oxycodone, Protonix, prednisone. SOCIAL HISTORY: He lives at home in the community. No active tobacco use. SYSTEMS REVIEW: Neurologic: As per HPI. Cardiac: Negative chest pain or palpitations. Respiratory: As per HPI. Gastrointestinal: Negative vomiting or diarrhea. Genitourinary: Negative for urinary tract infection. LABORATORY DATA: White count 22.1, hematocrit 27.8, platelet count 232, creatinine 0.8. Blood cultures negative. Chest x-ray shows increased markings of the lung durham bilaterally right greater than left with volume loss on the right side. PHYSICAL EXAMINATION: General: He is lethargic but arousable on high-flow oxygen. Vital Signs: Temperature 97.9, blood pressure 131/78, pulse 72 regular, respirations 18 per minute. HEENT: Sclerae anicteric. Heart: Sounds S1, S2. Lungs: Diminished breath sounds bilaterally. Abdomen: Soft, nontender. Extremities: Negative for edema. IMPRESSION: 1. Rule out aspiration pneumonia in the setting of unresponsiveness. 2. Rule out postobstructive pneumonia. 3. Lung cancer on chemotherapy. 4. Leukocytosis. PLAN: Continue empiric ceftriaxone. Obtain sputum culture, urine Legionella, and pneumococcal antigens. Aspiration precautions. Continue corticosteroids. Thank you for the kind referral. ISABELLA PLATT M.D. [id number]
--- NOTE | 2019-07-27 18:35 | PN ---
Progress Note (short form) - Note Progress Note: Patient seen and examined with Dr. Clement Reis (Agree with his note) Has pain in his chest but not new and is now stable No SOB Not eating well. Last Vital Signs Temp Pulse Resp BP Pulse Ox 97.9 F 72 18 131/78 92 L 07/27/19 14:00 07/27/19 14:00 07/27/19 09:00 07/27/19 14:00 07/26/19 21:00 HEENT: MMM Cor: RSR, No murmurs, No gallops Lungs: diminished breath sounds, poor inspiratory effort Abd: Soft, Normal bowel sounds, No organomegaly Ext:No significant edema Skin: No rashes, Integument intact 07/26/19 07:02 07/26/19 07:02 Current Medications Albuterol Sulfate (Ventolin 0.083% Nebulizer Soln -) 1 amp NEB Q6H PRN PRN Reason: SHORT OF BREATH/WHEEZING Albuterol/Ipratropium (Duoneb -) 1 amp NEB RQID [facility] Last Admin: 07/27/19 16:00 Dose: 1 amp Diltiazem HCl (Cardizem Cd -) 120 mg PO DAILY [facility] Last Admin: 07/27/19 09:47 Dose: 120 mg Diltiazem HCl (Cardizem Injection -) 5 mg IVPUSH Q4H PRN PRN Reason: TACHYCARDIA Enoxaparin Sodium (Lovenox -) 90 mg SQ BID [facility] Last Admin: 07/27/19 09:47 Dose: 90 mg Folic Acid (Folic Acid -) 1 mg PO DAILY [facility] Last Admin: 07/27/19 09:46 Dose: 1 mg Ceftriaxone Sodium 1 gm/ (Dextrose) 50 mls @ 100 mls/hr IVPB DAILY [facility]; Protocol Last Admin: 07/27/19 09:47 Dose: 100 mls/hr Lactulose (Cephulac (Oral Use)) 20 gm PO TID PRN PRN Reason: CONSTIPATION Last Admin: 07/26/19 00:34 Dose: 20 gm Multivitamins/Minerals/Vitamin C (Tab-A-Vit -) 1 tab PO DAILY [facility] Last Admin: 07/27/19 09:46 Dose: 1 tab Oxycodone HCl (Roxicodone -) 10 mg PO Q8H PRN PRN Reason: PAIN LEVEL 4 - 6 Last Admin: 07/27/19 09:46 Dose: 10 mg Pantoprazole Sodium (Protonix -) 40 mg PO DAILY [facility] Last Admin: 07/27/19 09:46 Dose: 40 mg Prednisone (Deltasone -) 30 mg PO BID [facility] Last Admin: 07/27/19 09:48 Dose: 30 mg Sotalol HCl (Betapace -) 80 mg PO BID [facility] Last Admin: 07/27/19 09:46 Dose: 80 mg Thiamine HCl (Vitamin B1 -) 100 mg PO DAILY [facility] Last Admin: 07/27/19 09:46 Dose: 100 mg Impression: 64 y/o gentleman with SCC admitted with altered mental status secondary to acute on chronic respiratory failure secondary to opioid overdose due uncontrollable pain from his metastatic squamous cell carcinoma Recommend: 1) Pain management per pain service. Pt mentioned got Oxycodone 10 mg only once but scheduled Q6. 2) Leukocytosis. Neutrophilia. On steroids Prednisone 30 mg BID. 3) Transaminitis, improving steadily. Likely recovering from ischemic liver injury. 4) H/O PE on Lovenox, H/O SVC Syndrome s/p Stent. 5) Squamous Cell Carcinoma Lung, Stage IV. Gemcitabine outpatient. Continue to follow with Dr. Hathaway. 6) Rest of recommendations per Dr. Reis's note.
--- NOTE | 2019-07-28 07:39 | PN.GI ---
GI Progress Note Subjective: Patient denies nausea, vomiting, diarrhea, constipation, abdominal pain, rectal bleeding, melena. No repeat labs ordered for today but yesterdays labs show downtrend in LFTs. - Objective Vital Signs: Vital Signs Temperature 98.3 F 07/28/19 02:00 Pulse Rate 78 07/28/19 05:51 Respiratory Rate 07/28/19 05:51 Blood Pressure 162/96 07/28/19 05:51 O2 Sat by Pulse Oximetry (%) 94 L 07/27/19 21:00 Constitutional: No Distress, Calm Eyes: Yes: Conjunctiva Clear HENT: Yes: Atraumatic Cardiovascular: Yes: Regular Rate and Rhythm Respiratory: Yes: Regular, CTA Bilaterally Gastrointestinal Inspection: Yes: WNL. No: Ascites, Distention, Hernia, Scars, Other ...Auscultate: Yes: Normoactive Bowel Sounds. No: Hyperactive Bowel Sounds, Hypoactive Bowel Sounds, No Bowel Sounds, Other ...Palpate: Yes: Soft. No: Firm/Rigid, Guarding, Hepatomegaly, Mass, Pulsatile Mass, Splenomegaly, Tenderness, Tenderness, Epigastium, Tenderness, Rebound, Other ...Percussion: Yes: Tympanitic. No: Dullness, Fluid Wave, Other Neurological: Yes: Alert, Oriented Psychiatric: Yes: Alert, Oriented Labs: CBC, BMP 07/26/19 07:02 INR, PTT INR 1.69 (0.83-1.09) H 07/23/19 09:14 Problem List - Problems (1) Hepatocellular injury Code(s): K76.9 - LIVER DISEASE, UNSPECIFIED
[2019-07-28] MEDS: ALBUTEROL SO4 2.5/IPRATROPIUM 0.5 INH SOL 3 ML VIAL.NEB. NEB SCH ×4 (08:06→21:20)
--- NOTE | 2019-07-28 09:10 | DS ---
Physical Examination Vital Signs: Vital Signs Temperature 98.3 F 07/28/19 02:00 Pulse Rate 78 07/28/19 05:51 Respiratory Rate 20 07/28/19 05:51 Blood Pressure 162/96 07/28/19 05:51 O2 Sat by Pulse Oximetry (%) 94 L 07/27/19 21:00 Cardiovascular: Yes: S1, S2 Respiratory: Yes: Diminished, On Nasal O2 Gastrointestinal: Yes: Normal Bowel Sounds, Soft Labs: CBC, BMP 07/26/19 07:02 07/28/19 06:20 Discharge Summary Problems reviewed: Yes Reason For Visit: ACUTE KIDNEY INJURY ELEVATED LIVER ENZYMES Current Active Problems Acute kidney injury (Acute) Elevated liver enzymes (Acute) Hepatocellular injury (Acute) Opioid overdose (Acute) Health Concerns: - Problems (1) Acute kidney injury Assessment/Plan: -nephrology consult -Monitor trend -DC IVF Problems reviewed: Yes Code(s): N17.9 - ACUTE KIDNEY FAILURE, UNSPECIFIED (2) Elevated liver enzymes Assessment/Plan: -2/2 to ischemic hepatitis-Improving -Continue IVF -Monitor trend Problems reviewed: Yes Code(s): R74.8 - ABNORMAL LEVELS OF OTHER SERUM ENZYMES (3) Opioid overdose Assessment/Plan: -Nalaxone dc'd as pt's mental status is improving -Neuro check -ICU monitoring -BACK ON PAIN MEDS--USING MORPHINE AND OXYCODONE FOR PAIN BUT GETTING LETHARGIC- -AWAIT PAIN CONSULT Problems reviewed: Yes Code(s): T40.2X1A - POISONING BY OTH OPIOIDS, ACCIDENTAL (UNINTENTIONAL), INIT Qualifiers: Encounter type: initial encounter Injury intent: accidental or unintentional Qualified Code(s): T40.2X1A - Poisoning by other opioids, accidental (unintentional), initial encounter (4) Afib Assessment/Plan: -Chronic -Rate controlled -Lovenox Problems reviewed: Yes Code(s): I48.91 - UNSPECIFIED ATRIAL FIBRILLATION (5) SVC syndrome Problems reviewed: Yes on lovenox Code(s): I87.1 - COMPRESSION OF VEIN (6) Squamous cell lung cancer Assessment/Plan: -Oncology consult -Palliative consult Problems reviewed: Yes Code(s): C34.90 - MALIGNANT NEOPLASM OF UNSP PART OF UNSP BRONCHUS OR LUNG (7) Pneumonia Assessment/Plan: -On ABx -Cxr -ID FOLLOW UP PT REQUIRES SNF STILL WEAK--START EVAL Condition: Guarded - Instructions Referrals: Pa Arceo MD, MD [Primary Care Provider] - Disposition: SENIOR CARE FACILITY - Home Medications Comprehensive Discharge Medication List: Ambulatory Orders Sotalol HCl [Betapace -] 80 mg PO BID tablet 04/29/18 Diltiazem Cd [Cardizem Cd -] 120 mg PO DAILY #30 cap.cd.24h 05/05/18 Ondansetron HCl [Zofran] 8 mg PO TID 11/24/18 Morphine *Sr* [MS Contin -] 30 mg PO Q12H 11/25/18 Enoxaparin [Lovenox -] 90 mg SQ BID 03/28/19 Gabapentin 300 mg PO BID 03/28/19 Pantoprazole Sodium [Protonix] 40 mg PO DAILY 03/28/19 Lactobacillus Acidophilus [Bacid -] 1 tab PO DAILY #14 tab 04/06/19 Albuterol 0.083% Nebulizer Moon [Ventolin 0.083% Nebulizer Soln -] 1 amp NEB Q6H PRN amp 07/28/19 Albuterol 2.5/Ipratropium 0.5 [Duoneb -] 1 amp NEB RQID amp 07/28/19 Ceftriaxone [Rocephin -] 1 gm IVPB DAILY vial 07/28/19 Folic Acid - 1 mg PO DAILY tablet 07/28/19 Lactulose (Oral Use) [Cephulac -] 20 gm PO TID PRN udc 07/28/19 Thiamine HCl [Vitamin B1 -] 100 mg PO DAILY tablet 07/28/19 oxyCODONE HCL [Roxicodone -] 10 mg PO Q8H PRN tablet MDD 4 07/28/19 predniSONE [Deltasone -] 30 mg PO BID tablet 07/28/19
[2019-07-28] MEDS ORDERED: DEXTROSE 5%-WATER - 50 ML IVPB ONE (09:19)
[2019-07-28] MEDS ORDERED: cefTRIAXone SODIUM 1 GM VIAL ONE (09:19)
[2019-07-28] MEDS: ENOXAPARIN NA (PORCINE) 100 MG/1 ML DISP.SYRIN SQ SCH ×2 (09:39→21:19)
[2019-07-28] MEDS: FOLIC ACID 1 MG TABLET (FP) PO SCH (09:40)
[2019-07-28] MEDS: MULTIVITAMINS (DAILY MVI) TABLET (FP) PO SCH (09:40)
[2019-07-28] MEDS: CEFTRIAXONE 1 GM in DEXTROSE 5%-WATER - 50 ML IVPB SCH (09:40)
[2019-07-28] MEDS: SOTALOL HCL 80 MG TABLET (FP) PO SCH ×2 (09:43→21:19)
[2019-07-28] MEDS: THIAMINE HCL 100 MG TABLET (FP) PO SCH (09:43)
[2019-07-28] MEDS: predniSONE 10 MG TABLET (UD) PO SCH ×2 (09:43→21:19)
[2019-07-28] MEDS: PANTOPRAZOLE 40 MG TABLET PO SCH (09:43)
[2019-07-28] MEDS: oxyCODONE HCL 5 MG TABLET PO PRN ×2 (09:47→20:12)
[2019-07-28 10:31] LABS: ALBUMIN 3.1 g/dl (3.4-5.0); BILIRUBIN,TOTAL 0.4 mg/dL (0.2-1); BLOOD UREA NITROGEN 22.4 mg/dL (7-18); CALCIUM 8.3 mg/dL (8.5-10.1); CREATININE 0.8 mg/dL (0.55-1.3); POTASSIUM 4.6 mmol/L (3.5-5.1); TOT PROT 6.2 g/dl (6.4-8.2)
--- NOTE | 2019-07-28 10:58 | PN ---
Progress Note (short form) - Note Progress Note: Breathing better on HFOT 40L / 40% FiO2. No fevers recorded. Intake & Output 07/25/19 07/26/19 07/27/19 07/28/19 23:59 23:59 23:59 23:59 Intake Total 1618 1840 1460 Balance 1618 1840 1460 Weight 208 lb Last Vital Signs Temp Pulse Resp BP Pulse Ox 98.3 F 78 20 162/96 94 L 07/28/19 02:00 07/28/19 05:51 07/28/19 05:51 07/28/19 05:51 07/27/19 21:00 Active Medications Albuterol Sulfate (Ventolin 0.083% Nebulizer Soln -) 1 amp NEB Q6H PRN PRN Reason: SHORT OF BREATH/WHEEZING Albuterol/Ipratropium (Duoneb -) 1 amp NEB RQID [facility] Last Admin: 07/28/19 08:06 Dose: 1 amp Diltiazem HCl (Cardizem Cd -) 120 mg PO DAILY [facility] Last Admin: 07/28/19 09:40 Dose: 120 mg Diltiazem HCl (Cardizem Injection -) 5 mg IVPUSH Q4H PRN PRN Reason: TACHYCARDIA Enoxaparin Sodium (Lovenox -) 90 mg SQ BID [facility] Last Admin: 07/28/19 09:39 Dose: 90 mg Folic Acid (Folic Acid -) 1 mg PO DAILY [facility] Last Admin: 07/28/19 09:40 Dose: 1 mg Ceftriaxone Sodium 1 gm/ (Dextrose) 50 mls @ 100 mls/hr IVPB DAILY [facility]; Protocol Last Admin: 07/28/19 09:40 Dose: 100 mls/hr Lactulose (Cephulac (Oral Use)) 20 gm PO TID PRN PRN Reason: CONSTIPATION Last Admin: 07/26/19 00:34 Dose: 20 gm Multivitamins/Minerals/Vitamin C (Tab-A-Vit -) 1 tab PO DAILY [facility] Last Admin: 07/28/19 09:40 Dose: 1 tab Oxycodone HCl (Roxicodone -) 10 mg PO Q8H PRN PRN Reason: PAIN LEVEL 4 - 6 Last Admin: 07/28/19 09:47 Dose: 10 mg Pantoprazole Sodium (Protonix -) 40 mg PO DAILY [facility] Last Admin: 07/28/19 09:43 Dose: 40 mg Prednisone (Deltasone -) 30 mg PO BID [facility] Last Admin: 07/28/19 09:43 Dose: 30 mg Sotalol HCl (Betapace -) 80 mg PO BID [facility] Last Admin: 07/28/19 09:43 Dose: 80 mg Thiamine HCl (Vitamin B1 -) 100 mg PO DAILY [facility] Last Admin: 07/28/19 09:43 Dose: 100 mg Gen: Awake on HFOT Heart: RRR Lung: decreased breath sounds at the bases Abd: soft, nontender Ext: no edema Laboratory Results - last 24 hr 07/28/19 07/28/19 06:20 09:28 Sodium Cancelled 140 Potassium Cancelled 4.6 Chloride Cancelled 104 Carbon Dioxide Cancelled 30 Anion Gap Cancelled 6 L BUN Cancelled 22.4 H Creatinine Cancelled 0.8 Est GFR (CKD-EPI)AfAm Cancelled 109.42 Est GFR (CKD-EPI)NonAf Cancelled 94.41 Random Glucose Cancelled 136 H Calcium Cancelled 8.3 L Magnesium Cancelled Total Bilirubin 0.4 AST 85 H ALT 960 H Alkaline Phosphatase 114 Total Protein 6.2 L Albumin 3.1 L A/P Altered Mental Status improving Acute on Chronic Hypoxic Respiratory Failure Opioid Overdose Elevated LFTs likely Ischemic Injury Acute Kidney Injury Metastatic Squamous Cell Cancer on chemo Acute COPD Exacerbation h/o PE/SVC thrombus Atrial Fibrillation with RVR HTN Hyperlipidemia - Trial of [place] O2 - ABX - Prednisone - inhaled bronchodilators - rate control - Lovenox BID Dr Jean
[2019-07-28 11:48] LABS: URINE APPEARANCE CLEAR; URINE BILIRUBIN NEGATIVE (NEGATIVE); URINE COLOR YELLOW; URINE GLUCOSE (UA) NEGATIVE (NEGATIVE); URINE KETONE NEGATIVE (NEGATIVE); URINE LEUK ESTERASE NEGATIVE (NEGATIVE); URINE NITRITE NEGATIVE (NEGATIVE); URINE PROTEIN NEGATIVE (NEGATIVE); URINE UROBILINOGEN 0.2 mg/dL (0.2-1.0)
--- NOTE | 2019-07-28 12:56 | PN ---
Progress Note, Physician History of Present Illness: MORE AWAKE AND RESPONSIVE NO COMPLAINTS OFFERRED APPEARS COMFORTABLE ON NASAL CANNULA O2 AFEBRILE WBC REMAINS ELEVATED - Current Medication List Current Medications: Active Medications Albuterol Sulfate (Ventolin 0.083% Nebulizer Soln -) 1 amp NEB Q6H PRN PRN Reason: SHORT OF BREATH/WHEEZING Albuterol/Ipratropium (Duoneb -) 1 amp NEB RQID [facility] Last Admin: 07/28/19 12:07 Dose: 1 amp Diltiazem HCl (Cardizem Cd -) 120 mg PO DAILY [facility] Last Admin: 07/28/19 09:40 Dose: 120 mg Diltiazem HCl (Cardizem Injection -) 5 mg IVPUSH Q4H PRN PRN Reason: TACHYCARDIA Enoxaparin Sodium (Lovenox -) 90 mg SQ BID [facility] Last Admin: 07/28/19 09:39 Dose: 90 mg Folic Acid (Folic Acid -) 1 mg PO DAILY [facility] Last Admin: 07/28/19 09:40 Dose: 1 mg Ceftriaxone Sodium 1 gm/ (Dextrose) 50 mls @ 100 mls/hr IVPB DAILY [facility]; Protocol Last Admin: 07/28/19 09:40 Dose: 100 mls/hr Lactulose (Cephulac (Oral Use)) 20 gm PO TID PRN PRN Reason: CONSTIPATION Last Admin: 07/26/19 00:34 Dose: 20 gm Multivitamins/Minerals/Vitamin C (Tab-A-Vit -) 1 tab PO DAILY [facility] Last Admin: 07/28/19 09:40 Dose: 1 tab Oxycodone HCl (Roxicodone -) 10 mg PO Q8H PRN PRN Reason: PAIN LEVEL 4 - 6 Last Admin: 07/28/19 09:47 Dose: 10 mg Pantoprazole Sodium (Protonix -) 40 mg PO DAILY [facility] Last Admin: 07/28/19 09:43 Dose: 40 mg Prednisone (Deltasone -) 30 mg PO BID [facility] Last Admin: 07/28/19 09:43 Dose: 30 mg Sotalol HCl (Betapace -) 80 mg PO BID [facility] Last Admin: 07/28/19 09:43 Dose: 80 mg Thiamine HCl (Vitamin B1 -) 100 mg PO DAILY [facility] Last Admin: 07/28/19 09:43 Dose: 100 mg - Objective Vital Signs: Vital Signs Temperature 97.9 F 07/28/19 10:00 Pulse Rate 71 07/28/19 10:00 Respiratory Rate 22 H 07/28/19 10:00 Blood Pressure 161/87 07/28/19 10:00 O2 Sat by Pulse Oximetry (%) 95 07/28/19 12:29 Constitutional: Yes: No Distress Eyes: Yes: Conjunctiva Clear Cardiovascular: Yes: Regular Rate and Rhythm, S1, S2 Respiratory: Yes: Diminished Gastrointestinal: Yes: Normal Bowel Sounds, Soft. No: Tenderness Edema: No Labs: CBC, BMP 07/26/19 07:02 07/28/19 09:28 INR, PTT INR 1.69 (0.83-1.09) H 07/23/19 09:14 Assessment/Plan PNEUMONIA S/P UNRESPONSIVENESS LUNG CA APPEARS MORE COMFORTABLE SUBSTITUTE AUGMENTIN 875MG PO BID X7D
--- NOTE | 2019-07-28 16:33 | PN ---
Progress Note (short form) - Note Progress Note: Patient seen and examined Awake , alert Last Vital Signs Temp Pulse Resp BP Pulse Ox 98.2 F 69 22 H 137/83 95 07/28/19 14:00 07/28/19 14:00 07/28/19 10:00 07/28/19 14:00 07/28/19 12:29 HEENT: ROSARIO, EOM Intact Oropharynx: thrush, No mucositis Cor: RSR, No murmurs, No gallops Lungs:Decreased breath sounds Right >left lung posteriorly; rhonchi Abd: Soft, Normal bowel sounds, No organomegaly Ext:No significant edema Skin: No rashes, Integument intact CBC, BMP 07/26/19 07:02 07/28/19 09:28 Current Medications Generic Name Dose Route Start Last Admin Trade Name Freq PRN Reason Stop Dose Admin Albuterol Sulfate 1 amp 07/26/19 19:47 Ventolin 0.083% Nebulizer Soln - NEB Q6H PRN SHORT OF BREATH/WHEEZING Albuterol/Ipratropium 1 amp 07/26/19 20:00 07/28/19 12:07 Duoneb - NEB 1 amp RQID [facility] Administration Diltiazem HCl 120 mg 07/27/19 10:00 07/28/19 09:40 Cardizem Cd - PO 120 mg DAILY [facility] Administration Diltiazem HCl 5 mg 07/26/19 19:47 Cardizem Injection - IVPUSH Q4H PRN TACHYCARDIA Enoxaparin Sodium 90 mg 07/26/19 22:00 07/28/19 09:39 Lovenox - SQ 90 mg BID [facility] Administration Folic Acid 1 mg 07/27/19 10:00 07/28/19 09:40 Folic Acid - PO 1 mg DAILY [facility] Administration Ceftriaxone Sodium 1 gm/ 50 mls @ 100 mls/hr 07/27/19 10:00 07/28/19 09:40 Dextrose IVPB 100 mls/hr DAILY [facility]ON[facility] Administration Protocol Lactulose 20 gm 07/25/19 18:45 07/26/19 00:34 Cephulac (Oral Use) PO 20 gm TID PRN Administration CONSTIPATION Multivitamins/Minerals/Vitamin C 1 tab 07/27/19 10:00 07/28/19 09:40 Tab-A-Vit - PO 1 tab DAILY [facility] Administration Oxycodone HCl 10 mg 07/25/19 18:47 07/28/19 09:47 Roxicodone - PO 10 mg Q8H PRN Administration PAIN LEVEL 4 - 6 Pantoprazole Sodium 40 mg 07/27/19 10:00 07/28/19 09:43 Protonix - PO 40 mg DAILY [facility] Administration Prednisone 30 mg 07/27/19 10:00 07/28/19 09:43 Deltasone - PO 30 mg BID [facility] Administration Sotalol HCl 80 mg 07/26/19 22:00 07/28/19 09:43 Betapace - PO 80 mg BID [facility]ON[facility] Administration Thiamine HCl 100 mg 07/27/19 10:00 07/28/19 09:43 Vitamin B1 - PO 100 mg DAILY [facility]ON[facility] Administration Impression: SCC of lung SVC stent Opiod dependence chemotherapy --gemcitibine Abnormal LFT's--improving Anemia Pneumonia Leucocytosis Thrush Plan: PT Ultimately when medically fit - resume treatment. Augmentin - per ID Diflucan
--- NOTE | 2019-07-28 17:06 | PN ---
Progress Note, Physician History of Present Illness: Pt seen and examined at bedside. He is awake and alert. He appears comfortable. - Current Medication List Current Medications: Active Medications Albuterol Sulfate (Ventolin 0.083% Nebulizer Soln -) 1 amp NEB Q6H PRN PRN Reason: SHORT OF BREATH/WHEEZING Albuterol/Ipratropium (Duoneb -) 1 amp NEB RQID [facility] Last Admin: 07/28/19 16:25 Dose: 1 amp Diltiazem HCl (Cardizem Cd -) 120 mg PO DAILY [facility] Last Admin: 07/28/19 09:40 Dose: 120 mg Diltiazem HCl (Cardizem Injection -) 5 mg IVPUSH Q4H PRN PRN Reason: TACHYCARDIA Enoxaparin Sodium (Lovenox -) 90 mg SQ BID [facility] Last Admin: 07/28/19 09:39 Dose: 90 mg Folic Acid (Folic Acid -) 1 mg PO DAILY [facility] Last Admin: 07/28/19 09:40 Dose: 1 mg Ceftriaxone Sodium 1 gm/ (Dextrose) 50 mls @ 100 mls/hr IVPB DAILY [facility]; Protocol Last Admin: 07/28/19 09:40 Dose: 100 mls/hr Lactulose (Cephulac (Oral Use)) 20 gm PO TID PRN PRN Reason: CONSTIPATION Last Admin: 07/26/19 00:34 Dose: 20 gm Multivitamins/Minerals/Vitamin C (Tab-A-Vit -) 1 tab PO DAILY [facility] Last Admin: 07/28/19 09:40 Dose: 1 tab Nystatin (Nystatin Oral Suspension -) 500,000 units PO Q6HPO [facility] Oxycodone HCl (Roxicodone -) 10 mg PO Q8H PRN PRN Reason: PAIN LEVEL 4 - 6 Last Admin: 07/28/19 09:47 Dose: 10 mg Pantoprazole Sodium (Protonix -) 40 mg PO DAILY [facility] Last Admin: 07/28/19 09:43 Dose: 40 mg Prednisone (Deltasone -) 30 mg PO BID [facility] Last Admin: 07/28/19 09:43 Dose: 30 mg Sotalol HCl (Betapace -) 80 mg PO BID [facility] Last Admin: 07/28/19 09:43 Dose: 80 mg Thiamine HCl (Vitamin B1 -) 100 mg PO DAILY [facility] Last Admin: 07/28/19 09:43 Dose: 100 mg - Objective Vital Signs: Vital Signs Temperature 98.2 F 07/28/19 14:00 Pulse Rate 69 07/28/19 14:00 Respiratory Rate 22 H 07/28/19 10:00 Blood Pressure 137/83 07/28/19 14:00 O2 Sat by Pulse Oximetry (%) 95 07/28/19 12:29 Constitutional: Yes: Calm Eyes: Yes: Conjunctiva Clear HENT: Yes: Atraumatic Cardiovascular: Yes: S1, S2 Respiratory: Yes: CTA Bilaterally Gastrointestinal: Yes: Normal Bowel Sounds, Soft Genitourinary: Yes: WNL Edema: No Neurological: Yes: Oriented Labs: CBC, BMP 07/26/19 07:02 07/28/19 09:28 INR, PTT INR 1.69 (0.83-1.09) H 07/23/19 09:14 Problem List - Problems (1) Acute kidney injury Code(s): N17.9 - ACUTE KIDNEY FAILURE, UNSPECIFIED (2) Elevated liver enzymes Code(s): R74.8 - ABNORMAL LEVELS OF OTHER SERUM ENZYMES (3) Opioid overdose Code(s): T40.2X1A - POISONING BY OTH OPIOIDS, ACCIDENTAL (UNINTENTIONAL), INIT Qualifiers: Encounter type: initial encounter Injury intent: accidental or unintentional Qualified Code(s): T40.2X1A - Poisoning by other opioids, accidental (unintentional), initial encounter Assessment/Plan Current Medications Generic Name Dose Route Start Last Admin Trade Name Freq PRN Reason Stop Dose Admin Albuterol Sulfate 1 amp 07/26/19 19:47 Ventolin 0.083% Nebulizer Soln - NEB Q6H PRN SHORT OF BREATH/WHEEZING Albuterol/Ipratropium 1 amp 07/26/19 20:00 07/28/19 16:25 Duoneb - NEB 1 amp RQID ALONDRA Administration Diltiazem HCl 120 mg 07/27/19 10:00 07/28/19 09:40 Cardizem Cd - PO 120 mg DAILY [facility] Administration Diltiazem HCl 5 mg 07/26/19 19:47 Cardizem Injection - IVPUSH Q4H PRN TACHYCARDIA Enoxaparin Sodium 90 mg 07/26/19 22:00 07/28/19 09:39 Lovenox - SQ 90 mg BID ALON[facility]A Administration Folic Acid 1 mg 07/27/19 10:00 07/28/19 09:40 Folic Acid - PO 1 mg DAILY [facility]ON[facility] Administration Ceftriaxone Sodium 1 gm/ 50 mls @ 100 mls/hr 07/27/19 10:00 07/28/19 09:40 Dextrose IVPB 100 mls/hr DAILY [facility]ON[facility] Administration Protocol Lactulose 20 gm 07/25/19 18:45 07/26/19 00:34 Cephulac (Oral Use) PO 20 gm TID PRN Administration CONSTIPATION Multivitamins/Minerals/Vitamin C 1 tab 07/27/19 10:00 07/28/19 09:40 Tab-A-Vit - PO 1 tab DAILY [facility] Administration Nystatin 500,000 units 07/28/19 18:00 Nystatin Oral Suspension - PO Q6HPO [facility] Oxycodone HCl 10 mg 07/25/19 18:47 07/28/19 09:47 Roxicodone - PO 10 mg Q8H PRN Administration PAIN LEVEL 4 - 6 Pantoprazole Sodium 40 mg 07/27/19 10:00 07/28/19 09:43 Protonix - PO 40 mg DAILY [facility] Administration Prednisone 30 mg 07/27/19 10:00 07/28/19 09:43 Deltasone - PO 30 mg BID ALONDRA Administration Sotalol HCl 80 mg 07/26/19 22:00 07/28/19 09:43 Betapace - PO 80 mg BID ALONDRA Administration Thiamine HCl 100 mg 07/27/19 10:00 07/28/19 09:43 Vitamin B1 - PO 100 mg DAILY ALONDRA Administration Impression 1. opioid overdose 2. felisha 3. transaminitis 4. lung cancer 5. copd 6. htn 7. hld 8. hyperkalemia Plan - renal function is stable - encourage po intake - monitor renal function - can stop fluids - avoid nsaids
[2019-07-28] MEDS: NYSTATIN 500,000 UNITS/5 ML SUSPENSION PO SCH (17:10)
[2019-07-29] MEDS: NYSTATIN 500,000 UNITS/5 ML SUSPENSION PO SCH ×4 (01:28→17:01)
[2019-07-29] MEDS: ALBUTEROL SO4 2.5/IPRATROPIUM 0.5 INH SOL 3 ML VIAL.NEB. NEB SCH ×4 (07:30→20:40)
[2019-07-29] MEDS ORDERED: cefTRIAXone SODIUM 1 GM VIAL ONE (08:01)
[2019-07-29] MEDS ORDERED: DEXTROSE 5%-WATER - 50 ML IVPB ONE (08:01)
[2019-07-29] MEDS: SOTALOL HCL 80 MG TABLET (FP) PO SCH ×2 (10:03→21:13)
[2019-07-29] MEDS: PANTOPRAZOLE 40 MG TABLET PO SCH (10:04)
[2019-07-29] MEDS: FOLIC ACID 1 MG TABLET (FP) PO SCH (10:04)
[2019-07-29] MEDS: CEFTRIAXONE 1 GM in DEXTROSE 5%-WATER - 50 ML IVPB SCH (10:04)
[2019-07-29] MEDS: MULTIVITAMINS (DAILY MVI) TABLET (FP) PO SCH (10:04)
[2019-07-29] MEDS: predniSONE 10 MG TABLET (UD) PO SCH ×2 (10:04→21:13)
[2019-07-29] MEDS: ENOXAPARIN NA (PORCINE) 100 MG/1 ML DISP.SYRIN SQ SCH ×2 (10:04→21:14)
[2019-07-29] MEDS: THIAMINE HCL 100 MG TABLET (FP) PO SCH (10:05)
[2019-07-29] MEDS: oxyCODONE HCL 5 MG TABLET PO PRN ×2 (10:07→21:13)
--- NOTE | 2019-07-29 12:26 | PN ---
Progress Note (short form) - Note Progress Note: PULMONARY VSS/Afebrile Gen: Awake on HFOT Heart: RRR Lung: decreased breath sounds at the bases Abd: soft, nontender Ext: no edema Chart reviewed A/P Altered Mental Status improving Acute on Chronic Hypoxic Respiratory Failure Opioid Overdose Elevated LFTs likely Ischemic Injury Acute Kidney Injury Metastatic Squamous Cell Cancer on chemo Acute COPD Exacerbation h/o PE/SVC thrombus Atrial Fibrillation with RVR HTN Hyperlipidemia - Trial of NC O2 - ABX - Prednisone - inhaled bronchodilators - rate control - Lovenox BID Marilynn SCHROEDER MD
--- NOTE | 2019-07-29 12:55 | PN ---
Progress Note (short form) - Note Progress Note: AWAKE ALERT EVENTS AND NOTES REVIEWED DISCHARGED TO SNF AWAITING AUTHORIZATION FOR PLACEMENT
[2019-07-29 13:31] LABS: BASO % 0.2 % (0-2.0); EOS % 1.5 % (0-4.5); LYMPH % 2.2 % (8-40); MCH 31.5 pg (25.7-33.7); MCHC 32.4 g/dl (32.0-35.9); MEAN CELL VOLUME 97.1 fl (80-96); MEAN PLT VOLUME 8.2 fl (7.5-11.1); MONO % 8.1 % (3.8-10.2); PLATELET COUNT 386 K/MM3 (134-434); RDW 21.4 % (11.9-15.9); WHITE BLOOD COUNT 22.1 K/mm3 (4.0-10.0)
--- NOTE | 2019-07-29 13:36 | PN ---
Progress Note (short form) - Note Progress Note: Seen in follow up. No events overnight. Comfortable, sitting up in bed, eating lunch. Nasal Oxygen Inpatient meds reviewed: Current Medications Albuterol Sulfate (Ventolin 0.083% Nebulizer Soln -) 1 amp NEB Q6H PRN PRN Reason: SHORT OF BREATH/WHEEZING Albuterol/Ipratropium (Duoneb -) 1 amp NEB RQID [facility] Last Admin: 07/29/19 11:10 Dose: 1 amp Diltiazem HCl (Cardizem Cd -) 120 mg PO DAILY [facility] Last Admin: 07/29/19 10:03 Dose: 120 mg Diltiazem HCl (Cardizem Injection -) 5 mg IVPUSH Q4H PRN PRN Reason: TACHYCARDIA Enoxaparin Sodium (Lovenox -) 90 mg SQ BID [facility] Last Admin: 07/29/19 10:04 Dose: 90 mg Folic Acid (Folic Acid -) 1 mg PO DAILY [facility] Last Admin: 07/29/19 10:04 Dose: 1 mg Ceftriaxone Sodium 1 gm/ (Dextrose) 50 mls @ 100 mls/hr IVPB DAILY [facility]; Protocol Last Admin: 07/29/19 10:04 Dose: 100 mls/hr Lactulose (Cephulac (Oral Use)) 20 gm PO TID PRN PRN Reason: CONSTIPATION Last Admin: 07/26/19 00:34 Dose: 20 gm Multivitamins/Minerals/Vitamin C (Tab-A-Vit -) 1 tab PO DAILY [facility] Last Admin: 07/29/19 10:04 Dose: 1 tab Nystatin (Nystatin Oral Suspension -) 500,000 units PO Q6HPO [facility] Last Admin: 07/29/19 11:48 Dose: 500,000 units Oxycodone HCl (Roxicodone -) 10 mg PO Q8H PRN PRN Reason: PAIN LEVEL 4 - 6 Last Admin: 07/29/19 10:07 Dose: 10 mg Pantoprazole Sodium (Protonix -) 40 mg PO DAILY [facility] Last Admin: 07/29/19 10:04 Dose: 40 mg Prednisone (Deltasone -) 30 mg PO BID [facility] Last Admin: 07/29/19 10:04 Dose: 30 mg Sotalol HCl (Betapace -) 80 mg PO BID [facility] Last Admin: 01/25/20 10:03 Dose: 80 mg Thiamine HCl (Vitamin B1 -) 100 mg PO DAILY [facility] Last Admin: 07/29/19 10:05 Dose: 100 mg On Examination: Last Vital Signs Temp Pulse Resp BP Pulse Ox 98.3 F 74 20 159/74 96 07/29/19 10:00 07/29/19 10:00 07/29/19 10:00 07/29/19 10:00 07/28/19 20:36 General: In no acute distress, supine in bed. Extremities: No pallor or icterus. CVS: S1, S2, no gallop or murmur. Chest: breathing comfortably, clear. Abdomen: non-distended, non-tender Neuro: Alert, oriented, non-focal Labs: CBC, BMP 07/29/19 13:06 07/28/19 09:28 Assessment. 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 Alertt presently, pain controlled Abnormal LFT's--improving . CBC good today - Hb improved. Leukocytosis secondary to steroids. Anticipating discharge soon.
[2019-07-29 14:14] LABS: ANISOCYTOSIS 2+; PLATELET ESTIMATE ADEQUATE
[2019-07-30] MEDS: NYSTATIN 500,000 UNITS/5 ML SUSPENSION PO SCH ×6 (00:12→23:54)
[2019-07-30] MEDS: ALBUTEROL SO4 2.5/IPRATROPIUM 0.5 INH SOL 3 ML VIAL.NEB. NEB SCH ×4 (07:25→20:29)
[2019-07-30] MEDS ORDERED: cefTRIAXone SODIUM 1 GM VIAL ONE (08:08)
[2019-07-30] MEDS ORDERED: DEXTROSE 5%-WATER - 50 ML IVPB ONE (08:08)
[2019-07-30] MEDS: PANTOPRAZOLE 40 MG TABLET PO SCH (10:05)
[2019-07-30] MEDS: FOLIC ACID 1 MG TABLET (FP) PO SCH (10:05)
[2019-07-30] MEDS: oxyCODONE HCL 5 MG TABLET PO PRN ×3 (10:05→21:17)
[2019-07-30] MEDS: MULTIVITAMINS (DAILY MVI) TABLET (FP) PO SCH (10:06)
[2019-07-30] MEDS: THIAMINE HCL 100 MG TABLET (FP) PO SCH (10:06)
[2019-07-30] MEDS: predniSONE 10 MG TABLET (UD) PO SCH ×2 (10:06→21:16)
[2019-07-30] MEDS: SOTALOL HCL 80 MG TABLET (FP) PO SCH ×2 (10:06→21:16)
[2019-07-30] MEDS: ENOXAPARIN NA (PORCINE) 100 MG/1 ML DISP.SYRIN SQ SCH ×2 (10:06→21:16)
--- NOTE | 2019-07-30 10:32 | PN ---
Progress Note (short form) - Note Progress Note: PATIENT IN BED EATING BREAKFAST COMFORTABLE AWAITING PLACEMENT TO SNF FORMS COMPLETED F/U OUTPATIENT WITH PMD/ONCOLOGY
--- NOTE | 2019-07-30 11:30 | PN ---
Progress Note (short form) - Note Progress Note: PULMONARY VSS/Afebrile Gen: Awake Heart: RRR Lung: decreased breath sounds at the bases Abd: soft, nontender Ext: no edema Chart reviewed A/P Altered Mental Status improving Acute on Chronic Hypoxic Respiratory Failure Opioid Overdose Elevated LFTs likely Ischemic Injury Acute Kidney Injury Metastatic Squamous Cell Cancer on chemo Acute COPD Exacerbation h/o PE/SVC thrombus Atrial Fibrillation with RVR HTN Hyperlipidemia - NC O2 - Prednisone to taper - inhaled bronchodilators - rate control - Lovenox BID Marilynn SCHROEDER MD
--- NOTE | 2019-07-30 14:24 | PN ---
Progress Note (short form) - Note Progress Note: Seen in follow up. No events overnight. Comfortable, no new complaints. Nasal Oxygen Inpatient meds reviewed: Current Medications Albuterol Sulfate (Ventolin 0.083% Nebulizer Soln -) 1 amp NEB Q6H PRN PRN Reason: SHORT OF BREATH/WHEEZING Albuterol/Ipratropium (Duoneb -) 1 amp NEB RQID [facility] Last Admin: 07/29/19 11:10 Dose: 1 amp Diltiazem HCl (Cardizem Cd -) 120 mg PO DAILY [facility] Last Admin: 07/29/19 10:03 Dose: 120 mg Diltiazem HCl (Cardizem Injection -) 5 mg IVPUSH Q4H PRN PRN Reason: TACHYCARDIA Enoxaparin Sodium (Lovenox -) 90 mg SQ BID [facility] Last Admin: 07/29/19 10:04 Dose: 90 mg Folic Acid (Folic Acid -) 1 mg PO DAILY [facility] Last Admin: 07/29/19 10:04 Dose: 1 mg Ceftriaxone Sodium 1 gm/ (Dextrose) 50 mls @ 100 mls/hr IVPB DAILY [facility]; Protocol Last Admin: 07/29/19 10:04 Dose: 100 mls/hr Lactulose (Cephulac (Oral Use)) 20 gm PO TID PRN PRN Reason: CONSTIPATION Last Admin: 07/26/19 00:34 Dose: 20 gm Multivitamins/Minerals/Vitamin C (Tab-A-Vit -) 1 tab PO DAILY [facility] Last Admin: 07/29/19 10:04 Dose: 1 tab Nystatin (Nystatin Oral Suspension -) 500,000 units PO Q6HPO [facility] Last Admin: 07/29/19 11:48 Dose: 500,000 units Oxycodone HCl (Roxicodone -) 10 mg PO Q8H PRN PRN Reason: PAIN LEVEL 4 - 6 Last Admin: 07/29/19 10:07 Dose: 10 mg Pantoprazole Sodium (Protonix -) 40 mg PO DAILY [facility] Last Admin: 07/29/19 10:04 Dose: 40 mg Prednisone (Deltasone -) 30 mg PO BID [facility] Last Admin: 07/29/19 10:04 Dose: 30 mg Sotalol HCl (Betapace -) 80 mg PO BID [facility] Last Admin: 07/29/19 10:03 Dose: 80 mg Thiamine HCl (Vitamin B1 -) 100 mg PO DAILY [facility] Last Admin: 07/29/19 10:05 Dose: 100 mg On Examination: Last Vital Signs Temp Pulse Resp BP Pulse Ox 98.3 F 72 20 154/90 96 07/30/19 05:43 07/30/19 05:43 07/30/19 05:43 07/30/19 05:43 07/29/19 19:44 General: In no acute distress, supine in bed. Extremities: No pallor or icterus. CVS: S1, S2, no gallop or murmur. Chest: breathing comfortably, clear. Abdomen: non-distended, non-tender Neuro: Alert, oriented, non-focal Labs: (CBC yesterday) CBC, BMP 07/29/19 13:06 07/28/19 09:28 Assessment. 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 Alertt presently, pain controlled Abnormal LFT's--improving . CBC good - Hb improved. Leukocytosis secondary to steroids. Awaiting dischrge to rehab.
[2019-07-31] MEDS: NYSTATIN 500,000 UNITS/5 ML SUSPENSION PO SCH ×2 (05:00→11:53)
[2019-07-31] MEDS: ALBUTEROL SO4 2.5/IPRATROPIUM 0.5 INH SOL 3 ML VIAL.NEB. NEB SCH ×3 (07:20→15:50)
--- NOTE | 2019-07-31 07:50 | PN.GI ---
GI Progress Note Subjective: Patient denies nausea, vomiting, diarrhea, constipation, abdominal pain, rectal bleeding. Labs show much improved LFTs with AST 85, ALT 960, and normal Alk Phos. - Objective Vital Signs: Vital Signs Temperature 98.4 F 07/31/19 06:00 Pulse Rate 70 07/31/19 06:00 Respiratory Rate 07/31/19 06:00 Blood Pressure 157/84 07/31/19 06:00 O2 Sat by Pulse Oximetry (%) 95 07/30/19 19:47 Constitutional: No Distress, Calm Eyes: Yes: Conjunctiva Clear HENT: Yes: Atraumatic Cardiovascular: Yes: Regular Rate and Rhythm Respiratory: Yes: Regular, Diminished, On Nasal O2 Gastrointestinal Inspection: Yes: WNL. No: Ascites, Distention, Hernia, Scars, Other ...Auscultate: Yes: Normoactive Bowel Sounds. No: Hyperactive Bowel Sounds, Hypoactive Bowel Sounds, No Bowel Sounds, Other ...Palpate: Yes: Soft. No: Firm/Rigid, Guarding, Hepatomegaly, Mass, Pulsatile Mass, Splenomegaly, Tenderness, Tenderness, Epigastium, Tenderness, Rebound, Other ...Percussion: Yes: Tympanitic. No: Dullness, Fluid Wave, Other Neurological: Yes: Alert, Oriented Psychiatric: Yes: Alert, Oriented Labs: CBC, BMP 07/29/19 13:06 07/28/19 09:28 INR, PTT INR 1.69 (0.83-1.09) H 07/23/19 09:14 Home Medication List Medication Instructions Recorded Confirmed Type Ondansetron HCl [Zofran] 8 mg PO TID 11/24/18 07/22/19 History Morphine *Sr* [MS Contin -] 30 mg PO Q12H 11/25/18 07/22/19 History Enoxaparin [Lovenox -] 90 mg SQ BID 03/28/19 07/23/19 History Gabapentin 300 mg PO BID 03/28/19 07/22/19 History Pantoprazole Sodium [Protonix] 40 mg PO DAILY 03/28/19 07/22/19 History Active Medications Generic Name Dose Route Start Last Admin Trade Name Freq PRN Reason Stop Dose Admin Albuterol Sulfate 1 amp 07/26/19 19:47 Ventolin 0.083% Nebulizer Soln - NEB Q6H PRN SHORT OF BREATH/WHEEZING Albuterol/Ipratropium 1 amp 07/26/19 20:00 07/30/19 20:29 Duoneb - NEB 1 amp RQID [facility] Administration Diltiazem HCl 120 mg 07/27/19 10:00 07/30/19 10:06 Cardizem Cd - PO 120 mg DAILY [facility] Administration Diltiazem HCl 5 mg 07/26/19 19:47 Cardizem Injection - IVPUSH Q4H PRN TACHYCARDIA Enoxaparin Sodium 90 mg 07/26/19 22:00 07/30/19 21:16 Lovenox - SQ 90 mg BID [facility] Administration Folic Acid 1 mg 07/27/19 10:00 07/30/19 10:05 Folic Acid - PO 1 mg DAILY [facility] Administration Lactulose 20 gm 07/25/19 18:45 07/26/19 00:34 Cephulac (Oral Use) PO 20 gm TID PRN Administration CONSTIPATION Multivitamins/Minerals/Vitamin C 1 tab 07/27/19 10:00 07/30/19 10:06 Tab-A-Vit - PO 1 tab DAILY [facility] Administration Nystatin 500,000 units 07/28/19 18:00 07/31/19 05:00 Nystatin Oral Suspension - PO 500,000 units Q6HPO [facility] Administration Oxycodone HCl 10 mg 07/25/19 18:47 07/30/19 21:17 Roxicodone - PO 10 mg Q8H PRN Administration PAIN LEVEL 4 - 6 Pantoprazole Sodium 40 mg 07/27/19 10:00 07/30/19 10:05 Protonix - PO 40 mg DAILY [facility] Administration Prednisone 30 mg 07/27/19 10:00 07/30/19 21:16 Deltasone - PO 30 mg BID [facility] Administration Sotalol HCl 80 mg 07/26/19 22:00 07/30/19 21:16 Betapace - PO 80 mg BID [facility] Administration Thiamine HCl 100 mg 07/27/19 10:00 07/30/19 10:06 Vitamin B1 - PO 100 mg DAILY [facility] Administration Problem List - Problems (1) Hepatocellular injury Code(s): K76.9 - LIVER DISEASE, UNSPECIFIED
--- NOTE | 2019-07-31 08:21 | DS ---
Physical Examination Vital Signs: Vital Signs Temperature 98 F 07/31/19 07:51 Pulse Rate 65 07/31/19 07:51 Respiratory Rate 20 07/31/19 07:51 Blood Pressure 141/90 07/31/19 07:51 O2 Sat by Pulse Oximetry (%) 99 07/31/19 07:51 Cardiovascular: Yes: S1, S2 Respiratory: Yes: Diminished, On Nasal O2 Gastrointestinal: Yes: Normal Bowel Sounds, Soft Labs: CBC, BMP 07/29/19 13:06 07/28/19 09:28 Discharge Summary Problems reviewed: Yes Reason For Visit: ACUTE KIDNEY INJURY ELEVATED LIVER ENZYMES Current Active Problems Acute kidney injury (Acute) Elevated liver enzymes (Acute) Hepatocellular injury (Acute) Opioid overdose (Acute) Hospital Course: - Problems (1) Acute kidney injury Assessment/Plan: -nephrology consult -Monitor trend -DC IVF Problems reviewed: Yes Code(s): N17.9 - ACUTE KIDNEY FAILURE, UNSPECIFIED (2) Elevated liver enzymes Assessment/Plan: -2/2 to ischemic hepatitis-Improving -Continue IVF -Monitor trend Problems reviewed: Yes Code(s): R74.8 - ABNORMAL LEVELS OF OTHER SERUM ENZYMES (3) Opioid overdose Assessment/Plan: -Nalaxone dc'd as pt's mental status is improving -Neuro check -ICU monitoring -BACK ON PAIN MEDS--USING MORPHINE AND OXYCODONE FOR PAIN BUT GETTING LETHARGIC- -AWAIT PAIN CONSULT Problems reviewed: Yes Code(s): T40.2X1A - POISONING BY OTH OPIOIDS, ACCIDENTAL (UNINTENTIONAL), INIT Qualifiers: Encounter type: initial encounter Injury intent: accidental or unintentional Qualified Code(s): T40.2X1A - Poisoning by other opioids, accidental (unintentional), initial encounter (4) Afib Assessment/Plan: -Chronic -Rate controlled -Lovenox Problems reviewed: Yes Code(s): I48.91 - UNSPECIFIED ATRIAL FIBRILLATION (5) SVC syndrome Problems reviewed: Yes on lovenox Code(s): I87.1 - COMPRESSION OF VEIN (6) Squamous cell lung cancer Assessment/Plan: -Oncology consult -Palliative consult Problems reviewed: Yes Code(s): C34.90 - MALIGNANT NEOPLASM OF UNSP PART OF UNSP BRONCHUS OR LUNG (7) Pneumonia Assessment/Plan: -On ABx -Cxr -ID FOLLOW UP PT REQUIRES SNF STILL WEAK--START EVAL Health Concerns: - Problems (1) Acute kidney injury Assessment/Plan: -nephrology consult -Monitor trend -DC IVF Problems reviewed: Yes Code(s): N17.9 - ACUTE KIDNEY FAILURE, UNSPECIFIED (2) Elevated liver enzymes Assessment/Plan: -2/2 to ischemic hepatitis-Improving -Continue IVF -Monitor trend Problems reviewed: Yes Code(s): R74.8 - ABNORMAL LEVELS OF OTHER SERUM ENZYMES (3) Opioid overdose Assessment/Plan: -Nalaxone dc'd as pt's mental status is improving -Neuro check -ICU monitoring -BACK ON PAIN MEDS--USING MORPHINE AND OXYCODONE FOR PAIN BUT GETTING LETHARGIC- -AWAIT PAIN CONSULT Problems reviewed: Yes Code(s): T40.2X1A - POISONING BY OTH OPIOIDS, ACCIDENTAL (UNINTENTIONAL), INIT Qualifiers: Encounter type: initial encounter Injury intent: accidental or unintentional Qualified Code(s): T40.2X1A - Poisoning by other opioids, accidental (unintentional), initial encounter (4) Afib Assessment/Plan: -Chronic -Rate controlled -Lovenox Problems reviewed: Yes Code(s): I48.91 - UNSPECIFIED ATRIAL FIBRILLATION (5) SVC syndrome Problems reviewed: Yes on lovenox Code(s): I87.1 - COMPRESSION OF VEIN (6) Squamous cell lung cancer Assessment/Plan: -Oncology consult -Palliative consult Problems reviewed: Yes Code(s): C34.90 - MALIGNANT NEOPLASM OF UNSP PART OF UNSP BRONCHUS OR LUNG (7) Pneumonia Assessment/Plan: -On ABx -Cxr -ID FOLLOW UP PT REQUIRES SNF STILL WEAK--START EVAL Condition: Guarded - Instructions Referrals: Pa Arceo MD, MD [Primary Care Provider] - Disposition: RESIDENTIAL FACILITY - Home Medications Comprehensive Discharge Medication List: Ambulatory Orders Sotalol HCl [Betapace -] 80 mg PO BID tablet 04/29/18 Diltiazem Cd [Cardizem Cd -] 120 mg PO DAILY #30 cap.cd.24h 05/05/18 Ondansetron HCl [Zofran] 8 mg PO TID 11/24/18 Morphine *Sr* [MS Contin -] 30 mg PO Q12H 11/25/18 Enoxaparin [Lovenox -] 90 mg SQ BID 03/28/19 Gabapentin 300 mg PO BID 03/28/19 Pantoprazole Sodium [Protonix] 40 mg PO DAILY 03/28/19 Lactobacillus Acidophilus [Bacid -] 1 tab PO DAILY #14 tab 04/06/19 Albuterol 0.083% Nebulizer Moon [Ventolin 0.083% Nebulizer Soln -] 1 amp NEB Q6H PRN amp 07/28/19 Albuterol 2.5/Ipratropium 0.5 [Duoneb -] 1 amp NEB RQID amp 07/28/19 Amox-Tr/K Cl [Augmentin - 875Mg Tablet] 1 tab PO BID #14 tablet 07/28/19 Ceftriaxone [Rocephin -] 1 gm IVPB DAILY vial 07/28/19 Folic Acid - 1 mg PO DAILY tablet 07/28/19 Lactulose (Oral Use) [Cephulac -] 20 gm PO TID PRN udc 07/28/19 Thiamine HCl [Vitamin B1 -] 100 mg PO DAILY tablet 07/28/19 oxyCODONE HCL [Roxicodone -] 10 mg PO Q8H PRN tablet MDD 4 07/28/19 predniSONE [Deltasone -] 30 mg PO BID tablet 07/28/19
[2019-07-31] MEDS: MULTIVITAMINS (DAILY MVI) TABLET (FP) PO SCH (09:04)
[2019-07-31] MEDS: THIAMINE HCL 100 MG TABLET (FP) PO SCH (09:05)
[2019-07-31] MEDS: PANTOPRAZOLE 40 MG TABLET PO SCH (09:05)
[2019-07-31] MEDS: SOTALOL HCL 80 MG TABLET (FP) PO SCH (09:05)
[2019-07-31] MEDS: FOLIC ACID 1 MG TABLET (FP) PO SCH (09:05)
[2019-07-31] MEDS: predniSONE 10 MG TABLET (UD) PO SCH (09:05)
[2019-07-31] MEDS: ENOXAPARIN NA (PORCINE) 100 MG/1 ML DISP.SYRIN SQ SCH (09:12)
[2019-07-31] MEDS: oxyCODONE HCL 5 MG TABLET PO PRN (09:34)
[2019-07-31 09:44] LABS: ALBUMIN 3.2 g/dl (3.4-5.0); BILIRUBIN,TOTAL 0.3 mg/dL (0.2-1); BLOOD UREA NITROGEN 17.7 mg/dL (7-18); CALCIUM 8.6 mg/dL (8.5-10.1); CREATININE 0.8 mg/dL (0.55-1.3); POTASSIUM 4.8 mmol/L (3.5-5.1); TOT PROT 6.4 g/dl (6.4-8.2)
--- NOTE | 2019-07-31 12:21 | PN ---
Progress Note, Physician History of Present Illness: Pt seen and examined at bedside. He is awake and appears comfortable. He denies shortness of breath. - Current Medication List Current Medications: Active Medications Albuterol Sulfate (Ventolin 0.083% Nebulizer Soln -) 1 amp NEB Q6H PRN PRN Reason: SHORT OF BREATH/WHEEZING Albuterol/Ipratropium (Duoneb -) 1 amp NEB RQID [facility] Last Admin: 07/31/19 11:40 Dose: 1 amp Diltiazem HCl (Cardizem Cd -) 120 mg PO DAILY [facility] Last Admin: 07/31/19 09:05 Dose: 120 mg Diltiazem HCl (Cardizem Injection -) 5 mg IVPUSH Q4H PRN PRN Reason: TACHYCARDIA Enoxaparin Sodium (Lovenox -) 90 mg SQ BID [facility] Last Admin: 07/31/19 09:12 Dose: 90 mg Folic Acid (Folic Acid -) 1 mg PO DAILY [facility] Last Admin: 07/31/19 09:05 Dose: 1 mg Lactulose (Cephulac (Oral Use)) 20 gm PO TID PRN PRN Reason: CONSTIPATION Last Admin: 07/26/19 00:34 Dose: 20 gm Multivitamins/Minerals/Vitamin C (Tab-A-Vit -) 1 tab PO DAILY [facility] Last Admin: 07/31/19 09:04 Dose: 1 tab Nystatin (Nystatin Oral Suspension -) 500,000 units PO Q6HPO [facility] Last Admin: 07/31/19 11:53 Dose: 500,000 units Oxycodone HCl (Roxicodone -) 10 mg PO Q8H PRN PRN Reason: PAIN LEVEL 4 - 6 Last Admin: 07/31/19 09:34 Dose: 10 mg Pantoprazole Sodium (Protonix -) 40 mg PO DAILY [facility] Last Admin: 07/31/19 09:05 Dose: 40 mg Prednisone (Deltasone -) 30 mg PO BID [facility] Last Admin: 07/31/19 09:05 Dose: 30 mg Sotalol HCl (Betapace -) 80 mg PO BID [facility] Last Admin: 07/31/19 09:05 Dose: 80 mg Thiamine HCl (Vitamin B1 -) 100 mg PO DAILY [facility] Last Admin: 07/31/19 09:05 Dose: 100 mg - Objective Vital Signs: Vital Signs Temperature 98 F 07/31/19 07:51 Pulse Rate 65 07/31/19 07:51 Respiratory Rate 20 07/31/19 07:51 Blood Pressure 141/90 07/31/19 07:51 O2 Sat by Pulse Oximetry (%) 99 07/31/19 07:51 Constitutional: Yes: Calm Eyes: Yes: Conjunctiva Clear HENT: Yes: Atraumatic Neck: Yes: Supple Cardiovascular: Yes: S1, S2 Respiratory: Yes: CTA Bilaterally Gastrointestinal: Yes: Normal Bowel Sounds, Soft Genitourinary: Yes: WNL Edema: No Neurological: Yes: Oriented Psychiatric: Yes: Oriented Labs: CBC, BMP 07/29/19 13:06 07/31/19 08:55 INR, PTT INR 1.69 (0.83-1.09) H 07/23/19 09:14 Problem List - Problems (1) Acute kidney injury Code(s): N17.9 - ACUTE KIDNEY FAILURE, UNSPECIFIED (2) Elevated liver enzymes Code(s): R74.8 - ABNORMAL LEVELS OF OTHER SERUM ENZYMES (3) Opioid overdose Code(s): T40.2X1A - POISONING BY OTH OPIOIDS, ACCIDENTAL (UNINTENTIONAL), INIT Qualifiers: Encounter type: initial encounter Injury intent: accidental or unintentional Qualified Code(s): T40.2X1A - Poisoning by other opioids, accidental (unintentional), initial encounter Assessment/Plan Current Medications Generic Name Dose Route Start Last Admin Trade Name Freq PRN Reason Stop Dose Admin Albuterol Sulfate 1 amp 07/26/19 19:47 Ventolin 0.083% Nebulizer Soln - NEB Q6H PRN SHORT OF BREATH/WHEEZING Albuterol/Ipratropium 1 amp 07/26/19 20:00 07/31/19 11:40 Duoneb - NEB 1 amp RQID [facility] Administration Diltiazem HCl 120 mg 07/27/19 10:00 07/31/19 09:05 Cardizem Cd - PO 120 mg DAILY [facility] Administration Diltiazem HCl 5 mg 07/26/19 19:47 Cardizem Injection - IVPUSH Q4H PRN TACHYCARDIA Enoxaparin Sodium 90 mg 07/26/19 22:00 07/31/19 09:12 Lovenox - SQ 90 mg BID [facility] Administration Folic Acid 1 mg 07/27/19 10:00 07/31/19 09:05 Folic Acid - PO 1 mg DAILY [facility] Administration Lactulose 20 gm 07/25/19 18:45 07/26/19 00:34 Cephulac (Oral Use) PO 20 gm TID PRN Administration CONSTIPATION Multivitamins/Minerals/Vitamin C 1 tab 07/27/19 10:00 07/31/19 09:04 Tab-A-Vit - PO 1 tab DAILY [facility] Administration Nystatin 500,000 units 07/28/19 18:00 07/31/19 11:53 Nystatin Oral Suspension - PO 500,000 units Q6HPO [facility] Administration Oxycodone HCl 10 mg 07/25/19 18:47 07/31/19 09:34 Roxicodone - PO 10 mg Q8H PRN Administration PAIN LEVEL 4 - 6 Pantoprazole Sodium 40 mg 07/27/19 10:00 07/31/19 09:05 Protonix - PO 40 mg DAILY [facility] Administration Prednisone 30 mg 07/27/19 10:00 07/31/19 09:05 Deltasone - PO 30 mg BID [facility] Administration Sotalol HCl 80 mg 07/26/19 22:00 07/31/19 09:05 Betapace - PO 80 mg BID [facility] Administration Thiamine HCl 100 mg 07/27/19 10:00 07/31/19 09:05 Vitamin B1 - PO 100 mg DAILY [facility] Administration Impression 1. opioid overdose 2. felisha 3. transaminitis 4. lung cancer 5. copd 6. htn 7. hld 8. hyperkalemia Plan - labs reviewed - monitor bmp in rehab - pt tolerating diet - stable off of fluids - will follow prn
--- NOTE | 2019-07-31 14:35 | PN ---
Progress Note (short form) - Note Progress Note: PULMONARY Breathing better. Saturating well on nasal cannula. No fevers recorded. Vital Signs Period Temp Pulse Resp BP Sys/Gtz Pulse Ox Last 24 Hr 97.9 F-98.4 F 65-77 20-20 109-157/70-90 95-99 Gen: more alert, awake Heart: RRR Lung: decreased breath sounds at the bases Abd: soft, nontender Ext: no edema CBC, BMP 07/29/19 13:06 07/31/19 08:55 Hepatic Panel Total Bilirubin 0.3 mg/dL (0.2-1) 07/31/19 08:55 AST 34 U/L (15-37) 07/31/19 08:55 ALT 441 U/L (13-61) H 07/31/19 08:55 Alkaline Phosphatase 92 U/L (45-117) 07/31/19 08:55 Albumin 3.2 g/dl (3.4-5.0) L 07/31/19 08:55 Active Medications Albuterol Sulfate (Ventolin 0.083% Nebulizer Soln -) 1 amp NEB Q6H PRN PRN Reason: SHORT OF BREATH/WHEEZING Albuterol/Ipratropium (Duoneb -) 1 amp NEB RQID [facility] Last Admin: 07/31/19 11:40 Dose: 1 amp Diltiazem HCl (Cardizem Cd -) 120 mg PO DAILY [facility] Last Admin: 07/31/19 09:05 Dose: 120 mg Diltiazem HCl (Cardizem Injection -) 5 mg IVPUSH Q4H PRN PRN Reason: TACHYCARDIA Enoxaparin Sodium (Lovenox -) 90 mg SQ BID [facility] Last Admin: 07/31/19 09:12 Dose: 90 mg Folic Acid (Folic Acid -) 1 mg PO DAILY [facility] Last Admin: 07/31/19 09:05 Dose: 1 mg Lactulose (Cephulac (Oral Use)) 20 gm PO TID PRN PRN Reason: CONSTIPATION Last Admin: 07/26/19 00:34 Dose: 20 gm Multivitamins/Minerals/Vitamin C (Tab-A-Vit -) 1 tab PO DAILY [facility] Last Admin: 07/31/19 09:04 Dose: 1 tab Nystatin (Nystatin Oral Suspension -) 500,000 units PO Q6HPO [facility] Last Admin: 07/31/19 11:53 Dose: 500,000 units Oxycodone HCl (Roxicodone -) 10 mg PO Q8H PRN PRN Reason: PAIN LEVEL 4 - 6 Last Admin: 07/31/19 09:34 Dose: 10 mg Pantoprazole Sodium (Protonix -) 40 mg PO DAILY [facility] Last Admin: 07/31/19 09:05 Dose: 40 mg Prednisone (Deltasone -) 30 mg PO BID [facility] Last Admin: 07/31/19 09:05 Dose: 30 mg Sotalol HCl (Betapace -) 80 mg PO BID [facility] Last Admin: 07/31/19 09:05 Dose: 80 mg Thiamine HCl (Vitamin B1 -) 100 mg PO DAILY [facility] Last Admin: 07/31/19 09:05 Dose: 100 mg A/P Altered Mental Status improving Acute on Chronic Hypoxic Respiratory Failure Opioid Overdose Elevated LFTs likely Ischemic Injury Acute Kidney Injury Metastatic Squamous Cell Cancer on chemo Acute COPD Exacerbation h/o PE/SVC thrombus Atrial Fibrillation with RVR HTN Hyperlipidemia - O2 to keep SpO2 >90% - monitor urine output, creatinine - s/p empiric antibiotics - prednisone taper - inhaled bronchodilators - rate control - continue anticoagulation
[2019-07-31 15:14] VITALS: BP 121/74; PULSE 67; TEMP 98.2
[2019-07-31 19:14] VITALS: BMI 25.7
== END 2019-07-31 17:30 | DRG 917 ==
LOC: JER 20:57 → JERBED 23:13 → JICU 07-23 02:27 → J4W 07-24 17:29
PROVIDERS: ADMIT Internal Medicine; ATTEND Family Medicine
DX: T40.2X1A Poisoning by other opioids, accidental (unintentional), initial encounter (principal); J96.21 Acute and chronic respiratory failure with hypoxia; J18.9 Pneumonia, unspecified organism; G93.41 Metabolic encephalopathy; N17.9 Acute kidney failure, unspecified; I87.1 Compression of vein; B37.0 Candidal stomatitis; I24.8 Other forms of acute ischemic heart disease; C34.11 Malignant neoplasm of upper lobe, right bronchus or lung; J44.1 Chronic obstructive pulmonary disease with (acute) exacerbation; J44.9 Chronic obstructive pulmonary disease, unspecified; I10 Essential (primary) hypertension; I48.91 Unspecified atrial fibrillation; G47.33 Obstructive sleep apnea (adult) (pediatric); K76.9 Liver disease, unspecified; R79.89 Other specified abnormal findings of blood chemistry; R41.82 Altered mental status, unspecified; E87.5 Hyperkalemia; Z86.711 Personal history of pulmonary embolism; Y92.89 Other specified places as the place of occurrence of the external cause; Z99.81 Dependence on supplemental oxygen
CPT/HCPCS: 36415; 36600; 71045-TC-FY; 76700-TC; 76775-TC; 80048; 80053; 80307; 81003; 82140; 82172; 82550; 82607; 82728; 82746; 82784; 82785; 82803; 82977; 83010; 83540; 83550; 83615; 83735; 83883; 84100; 84460; 84466; 85025; 85044; 85610; 85730; 86704; 86706; 86707; 86708; 86709; 87040; 87340; 87350; 87899; 93005; 93010; 94640; 97116-GP; 97162-GP; 99285-25; G6053; J3535; J7030

== ENCOUNTER 2019-08-30 13:46 | Inpatient (IN) | payer BC, OTHER ==
[2019-08-30] MEDS ORDERED: SODIUM CHLORIDE IV ONE (14:12)
--- NOTE | 2019-08-30 14:34 | PDOC ---
History of Present Illness - General Chief Complaint: SIRS, Suspected/Possible Stated Complaint: AMS Time Seen by Provider: 08/30/19 14:07 - History of Present Illness Initial Comments: 08/30/19 14:32 64 yo M PMH metastatic squamous cell lung carcinoma on chemo, last 07/10/19, HTN, HLD, COPD on 3L O2 at home, afib with multiple prior PEs, SVC syndrome, s/p SVC stent, opioid overdose in past, presenting with fever. Patient was recently discharged 07/31/2019 after episode of hypoxic respiratory failure, went to [facility] [place] , discharged from [facility] [place] 08/27/2019. Developed fevers, chills, and diffuse tremors yesterday. Patient endorses LUQ abdominal pain, unchanged from his normal. Denies any other complaints. Past History - Past Medical History Allergies/Adverse Reactions: Allergies Allergy/AdvReac Type Severity Reaction Status Date / Time No Known Allergies Allergy Verified 08/30/19 16:40 Home Medications: Ambulatory Orders Sotalol HCl [Betapace -] 80 mg PO BID tablet 04/29/18 Diltiazem Cd [Cardizem Cd -] 120 mg PO DAILY #30 cap.cd.24h 05/05/18 Ondansetron HCl [Zofran] 8 mg PO TID 11/24/18 Morphine *Sr* [MS Contin -] 30 mg PO Q12H 11/25/18 Enoxaparin [Lovenox -] 90 mg SQ BID 03/28/19 Gabapentin 300 mg PO BID 03/28/19 Pantoprazole Sodium [Protonix] 40 mg PO DAILY 03/28/19 Lactobacillus Acidophilus [Bacid -] 1 tab PO DAILY #14 tab 04/06/19 Albuterol 0.083% Nebulizer Moon [Ventolin 0.083% Nebulizer Soln -] 1 amp NEB Q6H PRN amp 07/28/19 Albuterol 2.5/Ipratropium 0.5 [Duoneb -] 1 amp NEB RQID amp 07/28/19 oxyCODONE HCL [Roxicodone -] 10 mg PO Q8H PRN tablet MDD 4 07/28/19 Anemia: No Asthma: No Cancer: Yes (LUNG) Cardiac Disorders: (Yes; PAROXYSMAL AFIB, SVC SYNDROME, S/P THROMBOLYSIS AND STENTING) COPD: Yes HTN: Yes - Surgical History Abdominal Surgery: Yes (hernia) Cholecystectomy: Yes - Immunization History Immunization Up to Date: No - Psycho Social/Smoking Cessation Hx Smoking History: Former smoker Have you smoked in the past 12 months: No Number of Cigarettes Smoked Daily: 5 If you are a former smoker, when did you quit?: 1 year Cigars Per Day: 10 Information on smoking cessation initiated: No 'Breaking Loose' booklet given: 04/07/18 Hx Alcohol Use: No Drug/Substance Use Hx: No Substance Use Type: Marijuana Hx Substance Use Treatment: No *Physical Exam - Vital Signs Last Vital Signs Temp Pulse Resp BP Pulse Ox 103.3 F H 134 H 20 163/111 H 94 L 08/30/19 14:03 08/30/19 14:03 08/30/19 14:03 08/30/19 14:03 08/30/19 14:03 Procedures - Central Line Central Line Lumen: triple Central Line Position: femoral (R) Anesthesia: 1% Lidocaine Amount of anesthesia (ccs): 5 Complications: none Post Central Line Insertion: sutured, good blood return ED Treatment Course - LABORATORY CBC & Chemistry Diagram: 08/30/19 14:22 08/30/19 14:22 Medical Decision Making - Medical Decision Making 08/30/19 15:27 Concern for potential PNA sepsis. - sepsis orders - admit - 30ccs/kg fluids - Vanc/piptazo 08/30/19 15:29 CXR with R sided effusion vs infiltrate, R SVC stent. 08/30/19 15:34 EKG poor baseline, tachycardic to 156. 08/30/19 17:28 Patient with MAP in low 60s despite adequate fluid resuscitation, so central line place in R femoral and Levophed ordered. Central line placed in femoral due to concern for existing SVC stent on R side. Discussed patient with Dr. Hathaway, who concurs with ICU admission. Recommends reaching out to Dr. Peraza concerning the SVC stent, as he is concerned this might be acting as a nidus for infection. May require a non-emergent CT chest. Further recommends ID consultation. Will admit patient to ICU. 08/30/19 18:45 Repeat EKG with sinus tachycardia at 106 bpm, inverted T waves in V1 and V2, otherwise unremarkable Discharge - Discharge Information Problems reviewed: Yes Clinical Impression/Diagnosis: Severe sepsis - Follow up/Referral Referrals: Wili Hathaway MD [Primary Care Provider] - - Patient Discharge Instructions - Post Discharge Activity
[2019-08-30] MEDS ORDERED: VANCOMYCIN HCL 1,250 MG in DEXTROSE 5%-WATER - 250 ML IVPB ONE (14:52)
[2019-08-30] MEDS ORDERED: PIPERACILLIN/TAZOB 4.5 GM 4.5 GM/100 ML BAG IVPB ONE ×2 (14:55→18:29)
[2019-08-30] MEDS: PIPERACILLIN/TAZOB 4.5 GM 4.5 GM in DEXTROSE 5%-WATER 100 ML IVPB SCH ×2 (14:57→18:42)
[2019-08-30 15:00] LABS: BASO % 0.4 % (0-2.0); EOS % 0.6 % (0-4.5); HEMATOCRIT 40.5 % (35.4-49); HEMOGLOBIN 13.1 GM/dL (11.7-16.9); MCH 30.8 pg (25.7-33.7); MCHC 32.4 g/dl (32.0-35.9); MEAN PLT VOLUME 7.6 fl (7.5-11.1); MONO % 7.8 % (3.8-10.2); NEUT % 72.2 % (42.8-82.8); RBC 4.27 M/mm3 (4.00-5.60); RDW 17.7 % (11.9-15.9); WHITE BLOOD COUNT 12.5 K/mm3 (4.0-10.0)
[2019-08-30 15:21] LABS: INR 1.2 (0.83-1.09); PROTHROMBIN TIME (PATIENT) 14.2 SEC (9.7-13.0)
[2019-08-30 15:24] LABS: ACTIVATED PTT 34.4 SECONDS (25.2-36.5)
[2019-08-30 15:27] LABS: VENOUS PC02 53.7 mmHg (38-52); VENOUS PH 7.38 (7.31-7.41)
[2019-08-30 15:29] LABS: ALBUMIN 2.8 g/dl (3.4-5.0); ALK PHOS 56 U/L (45-117); ANION GAP 7 MMOL/L (8-16); BLOOD UREA NITROGEN 19.9 mg/dL (7-18); CALCIUM 7.4 mg/dL (8.5-10.1); CHLORIDE 96 mmol/L (98-107); CO2 28 mmol/L (21-32); GLUCOSE,RANDOM 126 mg/dL (74-106); LIPASE 49 U/L (73-393); SGOT/AST 31 U/L (15-37); SGPT/ALT 37 U/L (13-61); SODIUM 132 mmol/L (136-145); TOT PROT 6.6 g/dl (6.4-8.2); VENOUS PO2 < 49 mmHg (28-48)
[2019-08-30 15:57] LABS: PLATELET COUNT 164 K/MM3 (134-434); PLATELET ESTIMATE DECREASED
[2019-08-30 16:26] LABS: URINE APPEARANCE CLEAR; URINE BILIRUBIN NEGATIVE (NEGATIVE); URINE COLOR YELLOW; URINE GLUCOSE (UA) NEGATIVE (NEGATIVE); URINE KETONE NEGATIVE (NEGATIVE); URINE LEUK ESTERASE NEGATIVE (NEGATIVE); URINE NITRITE NEGATIVE (NEGATIVE); URINE PROTEIN TRACE (NEGATIVE)
--- NOTE | 2019-08-30 16:32 | PDOC ---
Documentation entered by Elham Restrepo SCRIBE, acting as scribe for Yossi Lala MD. Yossi Lala MD: This documentation has been prepared by the Lauro silva Adrianna, SCRIBE, under my direction and personally reviewed by me in its entirety. I confirm that the documentation accurately reflects all work, treatment, procedures, and medical decision making performed by me. Attending Attestation - Resident Resident Name: Trina Arzate - ED Attending Attestation I have performed the following: I have examined & evaluated the patient, The case was reviewed & discussed with the resident, I agree w/resident's findings & plan, Exceptions are as noted - HPI HPI: The patient is a 64 year old male, with a significant PMH of metastatic squamous cell carcinoma (on chemo), HTN, HLD, COPD, Afib with multiple prior PEs , opioid overdose in past, who presents to the ED for evaluation of fever. Patient was reported to have fever with chills and tremors yesterday. He endorses some LUQ abdominal pain while in the ER. Patient was seen in [facility] for hypoxic respiratory failure, and was discharged from [facility] days ago. HPI is limited 2/2 patients mental status. Allergies: NKA, NKDA Surgical History: Abdominal hernia repair, cholecystectomy Social History: Former smoker (quit last year). Marijuana use. No toxic habits - Physicial Exam PE: 08/30/19 16:24 Patient is awake and alert, well-nourished, febrile, tachycardic, hypotensive; Normocephalic, atraumatic No JVD, neck is supple Severely decreased breath sounds to the right hemithorax Tachycardic,RRR Abdomen soft, nontender, No significant lower extremity edema - Medical Decision Making 08/30/19 16:31 Patient is a 64-year-old male with history of squamous cell CA, hypertension, hyperlipidemia, A. fib, multiple DVTs, SVC syndrome with SVC vascular stent who presents from a [facility] with confusion, fever and tachycardia. Patient noted to be hypotensive in the ED. Chest x-ray reveals significant right pleural effusion with atelectasis and infiltrate. Will cover with Vanco and Zosyn for nosocomial pneumonia. Will panculture. Will swab for flu. Will consider pressors if fluid resuscitation fails. Will admit. 08/30/19 16:52 Patient remains hypotensive despite fluid resuscitation. Will place right femoral catheter for possible pressor infusion. We will continue with IV fluid resuscitation. Will admit to the ICU.
[2019-08-30] MEDS ORDERED: NOREPINEPHRINE BITARTRATE 4,000 MCG in DEXTROSE 5%-WATER - 496 ML IV SCH (17:30)
[2019-08-30] MEDS ORDERED: ALBUMIN HUMAN 5% 250 ML IV SOLUTION IVPB ONE (17:43)
[2019-08-30] MEDS ORDERED: HYDROCORTISONE SOD SUCCINATE 100 MG/2 ML VIAL IVPUSH ONE ×2 (17:43→19:54)
--- NOTE | 2019-08-30 18:28 | HP ---
Admitting History and Physical - Primary Care Physician PCP: Joanna Morgan - Admission Chief Complaint: fever, sepsis, History of Present Illness: 64 y/o male with PMH of squamous cell carcinoma (currently receiving chemo therapy last session was July), HTN, HLD,COPD, afib, SVC syndrome s/p stent placement presents to the ED with complaints of fevers and productive cough over the last 3 days- patient states that his cough started 3 days ago and has been having productive green sputum and today had a fever of 103.3 which prompted him to come to the ED- in the ED patient was found to be hypotensive and was not responding to fluid resuscitation so R femoral line placement was started on levophed; notable labs:WBC 12.5, sodium 132, lactic acid 2.0 given vanc/zosyn and 2L normal saline CXR showed right effusion with right infiltrate History Source: Patient Limitations to Obtaining History: No Limitations - Past Medical History Cardiovascular: Yes: AFIB, HTN, Other (smoker with lung mass) Pulmonary: Yes: COPD - Past Surgical History Past Surgical History: Yes: Cholecystectomy, Hernia Repair - Smoking History Smoking history: Former smoker Have you smoked in the past 12 months: No Aproximately how many cigarettes per day: 5 If you are a former smoker, when did you quit?: 1 year - Alcohol/Substance Use Hx Alcohol Use: No - Social History ADL: Independent History of Recent Travel: No Home Medications - Allergies Allergies/Adverse Reactions: Allergies Allergy/AdvReac Type Severity Reaction Status Date / Time No Known Allergies Allergy Verified 08/30/19 16:40 - Home Medications Home Medications: Ambulatory Orders Sotalol HCl [Betapace -] 80 mg PO BID tablet 04/29/18 Diltiazem Cd [Cardizem Cd -] 120 mg PO DAILY #30 cap.cd.24h 05/05/18 Ondansetron HCl [Zofran] 8 mg PO TID 11/24/18 Morphine *Sr* [MS Contin -] 30 mg PO Q12H 11/25/18 Enoxaparin [Lovenox -] 90 mg SQ BID 03/28/19 Gabapentin 300 mg PO BID 03/28/19 Pantoprazole Sodium [Protonix] 40 mg PO DAILY 03/28/19 Lactobacillus Acidophilus [Bacid -] 1 tab PO DAILY #14 tab 04/06/19 Albuterol 0.083% Nebulizer Moon [Ventolin 0.083% Nebulizer Soln -] 1 amp NEB Q6H PRN amp 07/28/19 Albuterol 2.5/Ipratropium 0.5 [Duoneb -] 1 amp NEB RQID amp 07/28/19 oxyCODONE HCL [Roxicodone -] 10 mg PO Q8H PRN tablet MDD 4 07/28/19 Family Medical History Family History: Denies Review of Systems - Review of Systems Constitutional: reports: Fever, Lethargy Eyes: reports: No Symptoms HENT: reports: No Symptoms Neck: reports: No Symptoms Cardiovascular: reports: No Symptoms Gastrointestinal: reports: No Symptoms Genitourinary: reports: No Symptoms Musculoskeletal: reports: No Symptoms Integumentary: reports: No Symptoms Endocrine: reports: No Symptoms Psychiatric: reports: No Symptoms Physical Examination Vital Signs: Vital Signs Temperature 103.3 F H 08/30/19 14:34 Pulse Rate 111 H 08/30/19 18:00 Respiratory Rate 08/30/19 17:00 Blood Pressure 82/57 L 08/30/19 18:00 O2 Sat by Pulse Oximetry (%) 97 08/30/19 17:00 Constitutional: Yes: Well Nourished Eyes: Yes: Conjunctiva Clear HENT: Yes: Atraumatic, Normocephalic Neck: Yes: Supple, Thyromegaly Cardiovascular: Yes: Regular Rate and Rhythm Respiratory: Yes: Regular, CTA Bilaterally Gastrointestinal: Yes: Normal Bowel Sounds, Soft Musculoskeletal: Yes: WNL Extremities: Yes: WNL Edema: No ...Motor Strength: WNL Labs: CBC, BMP 08/30/19 14:22 08/30/19 14:22 Imaging - Results Chest X-ray: Report Reviewed EKG: Image Reviewed Assessment/Plan 64 y/o male with PMH of squamous cell carcinoma (currently receiving chemo therapy last session was July), HTN, HLD, COPD, afib, SVC syndrome s/p stent placement presents to the ED with complaints of fevers and productive cough over the last 3 days find to be in septic shock 2/2 pneumonia start iv abx and icu eval called, and will see the ID, and pulmonology, griffith c/s done, and CXR showed R effusion with R infiltrate -currently on vanc/zosyn -will c/w zosyn -f/u sputum cultures; legionella antigen #hypotension, history of HTN, HLD, afib currently hypotensive; on pressors -hold home anti-hypertensive medications -maintain MAPS >65 -monitor hemodynamics cont levo phed, h/o sq cell lung ca, will see dr Hathaway, history of afib, continue the lovenox, pt with h/o PE, afib, switch to oral anticoag as per heme, dvt prophylaxis, Visit type - Emergency Visit Emergency Visit: Yes ED Registration Date: 08/30/19 Care time: The patient presented to the Emergency Department on the above date and was hospitalized for further evaluation of their emergent condition. - New Patient This patient is new to me today: Yes Date on this admission: 08/31/19 - Critical Care Critical Care patient: Yes Total Critical Care Time (in minutes): 50 Critical Care Statement: The care of this patient involved high complexity decision making to prevent further life threatening deterioration of the patient 's condition and/or to evaluate & treat vital organ system(s) failure or risk of failure.
[2019-08-30] MEDS ORDERED: HYDROCORTISONE SOD SUCCINATE 2 ML ONE (18:29)
--- NOTE | 2019-08-30 20:05 | CONSULT ---
Consultation: REQUESTING PROVIDER: Dr. Morgan CONSULT REQUEST: ICU management HISTORY OF PRESENT ILLNESS: 64 y/o male with PMH of squamous cell carcinoma (currently receiving chemo therapy last session was July), HTN, HLD,COPD, afib, SVC syndrome s/p stent placement presents to the ED with complaints of fevers and productive cough over the last 3 days- patient states that his cough started 3 days ago and has been having productive green sputum and today had a fever of 103.3 which prompted him to come to the ED- in the ED patient was found to be hypotensive and was not responding to fluid resuscitation so R femoral line placement was started on levophed; notable labs:WBC 12.5, sodium 132, lactic acid 2.0 given vanc/zosyn and 2L normal saline CXR showed right effusion with right infiltrate REVIEW OF SYSTEMS: CONSTITUTIONAL: Present: fevers Absent: chills, diaphoresis, generalized weakness, malaise, loss of appetite, weight change HEENT: Absent: rhinorrhea, nasal congestion, throat pain, throat swelling, difficulty swallowing, mouth swelling, ear pain, eye pain, visual changes CARDIOVASCULAR: Absent: chest pain, syncope, palpitations, irregular heart rate, lightheadedness , peripheral edema RESPIRATORY: Present: cough Absent: , shortness of breath, dyspnea with exertion, orthopnea, wheezing, stridor, hemoptysis GASTROINTESTINAL: Absent: abdominal pain, abdominal distension, nausea, vomiting, diarrhea, constipation, melena, hematochezia GENITOURINARY: Absent: dysuria, frequency, urgency, hesitancy, hematuria, flank pain, genital pain MUSCULOSKELETAL: Absent: myalgia, arthralgia, joint swelling, back pain, neck pain SKIN: Absent: rash, itching, pallor HEMATOLOGIC/IMMUNOLOGIC: Absent: easy bleeding, easy bruising, lymphadenopathy, frequent infections ENDOCRINE: Absent: unexplained weight gain, unexplained weight loss, heat intolerance, cold intolerance NEUROLOGIC: Absent: headache, focal weakness or paresthesias, dizziness, unsteady gait, seizure, mental status changes, bladder or bowel incontinence PSYCHIATRIC: Absent: anxiety, depression, suicidal or homicidal ideation, hallucinations. PHYSICAL EXAMINATION Vital Signs - 24 hr 08/30/19 08/30/19 08/30/19 14:03 14:30 14:34 Temperature 103.3 F H 103.3 F H Pulse Rate 134 H 134 H Pulse Rate [ 122 H Right Radial] Respiratory 20 18 20 Rate Blood Pressure 163/111 H 163/111 H Blood Pressure 85/68 L [Left Arm] O2 Sat by Pulse 94 L 92 L 96 Oximetry (%) 08/30/19 08/30/19 08/30/19 14:35 15:07 15:30 Temperature Pulse Rate Pulse Rate [ 127 H 119 H Right Radial] Respiratory 20 22 H Rate Blood Pressure Blood Pressure 89/63 L 87/66 L [Left Arm] O2 Sat by Pulse 96 96 93 L Oximetry (%) 08/30/19 08/30/19 08/30/19 16:00 16:30 17:00 Temperature Pulse Rate Pulse Rate [ 121 H 114 H 111 H Right Radial] Respiratory 20 22 H 20 Rate Blood Pressure Blood Pressure 83/61 L 90/61 94/65 [Left Arm] O2 Sat by Pulse 92 L 94 L 97 Oximetry (%) 08/30/19 08/30/19 08/30/19 17:30 18:00 18:30 Temperature Pulse Rate 111 H Pulse Rate [ 116 H 111 H 106 H Right Radial] Respiratory 30 H 25 H 22 H Rate Blood Pressure 82/57 L Blood Pressure 100/71 82/57 L 95/66 [Left Arm] O2 Sat by Pulse 97 100 100 Oximetry (%) GENERAL: Awake, alert, and fully oriented, in no acute distress. EYES: PEERLA; EOMI; no scleral icterus . NECK: no JVD; no lymphadenopathy LUNGS: decreased breath sounds mainly at R base HEART: irregularly irregular normal S1 and S2 without murmur, rub or gallop. ABDOMEN: Soft, NT/ND +BS in all 4 quadrants MUSCULOSKELETAL: Normal range of motion at all joints. No bony deformities or tenderness. No CVA tenderness. EXTREMITIES: warm; well-perfused no clubbing/cyanosis or edema NEUROLOGICAL: Cranial nerves II-XII intact. Normal speech. Normal gait. PSYCHIATRIC: Cooperative. Good eye contact. Appropriate mood and affect. SKIN: Warm, dry, normal turgor, no rashes or lesions noted. Laboratory Results - last 24 hr 08/30/19 08/30/19 08/30/19 14:22 14:22 14:22 WBC 12.5 H RBC 4.27 Hgb 13.1 Hct 40.5 D MCV 95.0 MCH 30.8 MCHC 32.4 RDW 17.7 H Plt Count 164 D MPV 7.6 Absolute Neuts (auto) 9.1 H Neutrophils % 72.2 Lymphocytes % 19.0 D Monocytes % 7.8 Eosinophils % 0.6 Basophils % 0.4 Nucleated RBC % 0 Platelet Estimate Decreased Platelet Comment No clumping noted PT with INR 14.20 H INR 1.20 H PTT (Actin FS) 34.4 VBG pH POC VBG pCO2 POC VBG pO2 VBG HCO3 VBG O2 Sat (Wang) VBG Base Excess Sodium 132 L Potassium 5.0 Chloride 96 L Carbon Dioxide 28 Anion Gap 7 L BUN 19.9 H Creatinine 1.0 Est GFR (CKD-EPI)AfAm 91.78 Est GFR (CKD-EPI)NonAf 79.19 Random Glucose 126 H Lactic Acid Calcium 7.4 L Total Bilirubin 1.0 AST 31 ALT 37 Alkaline Phosphatase 56 Troponin I < 0.02 Total Protein 6.6 Albumin 2.8 L Lipase 49 L Urine Color Urine Appearance Urine pH Ur Specific [place] Urine Protein Urine Glucose (UA) Urine Ketones Urine Blood Urine Nitrite Urine Bilirubin Urine Urobilinogen Ur Leukocyte Esterase Influenza A (Rapid) Influenza B (Rapid) 08/30/19 08/30/19 08/30/19 14:22 14:22 15:26 WBC RBC Hgb Hct MCV MCH MCHC RDW Plt Count MPV Absolute Neuts (auto) Neutrophils % Lymphocytes % Monocytes % Eosinophils % Basophils % Nucleated RBC % Platelet Estimate Platelet Comment PT with INR INR PTT (Actin FS) VBG pH 7.38 POC VBG pCO2 53.7 H POC VBG pO2 < 49 H VBG HCO3 30.9 H VBG O2 Sat (Wang) 57.0 L VBG Base Excess 4.0 H Sodium Potassium Chloride Carbon Dioxide Anion Gap BUN Creatinine Est GFR (CKD-EPI)AfAm Est GFR (CKD-EPI)NonAf Random Glucose Lactic Acid 2.0 Calcium Total Bilirubin AST ALT Alkaline Phosphatase Troponin I Total Protein Albumin Lipase Urine Color Urine Appearance Urine pH Ur Specific [place] Urine Protein Urine Glucose (UA) Urine Ketones Urine Blood Urine Nitrite Urine Bilirubin Urine Urobilinogen Ur Leukocyte Esterase Influenza A (Rapid) Negative Influenza B (Rapid) Negative 08/30/19 16:05 WBC RBC Hgb Hct MCV MCH MCHC RDW Plt Count MPV Absolute Neuts (auto) Neutrophils % Lymphocytes % Monocytes % Eosinophils % Basophils % Nucleated RBC % Platelet Estimate Platelet Comment PT with INR INR PTT (Actin FS) VBG pH POC VBG pCO2 POC VBG pO2 VBG HCO3 VBG O2 Sat (Wang) VBG Base Excess Sodium Potassium Chloride Carbon Dioxide Anion Gap BUN Creatinine Est GFR (CKD-EPI)AfAm Est GFR (CKD-EPI)NonAf Random Glucose Lactic Acid Calcium Total Bilirubin AST ALT Alkaline Phosphatase Troponin I Total Protein Albumin Lipase Urine Color Yellow Urine Appearance Clear Urine pH 7.0 Ur Specific [place] 1.022 Urine Protein Trace Urine Glucose (UA) Negative Urine Ketones Negative Urine Blood Negative Urine Nitrite Negative Urine Bilirubin Negative Urine Urobilinogen 1.0 Ur Leukocyte Esterase Negative Influenza A (Rapid) Influenza B (Rapid) Active Medications Generic Name Dose Route Start Last Admin Trade Name Freq PRN Reason Stop Dose Admin Albuterol/Ipratropium 1 amp 08/30/19 20:00 Duoneb - NEB RQID ALONDRA Chlorhexidine Gluconate 1 applic 08/30/19 22:00 Hibiclens For Decolonization - TP HS ALONDRA Enoxaparin Sodium 90 mg 08/30/19 22:00 Lovenox - SQ BID [facility] Gabapentin 300 mg 08/30/19 22:00 Neurontin - PO BID [facility] Norepinephrine Bitartrate 4, 500 mls @ 37.5 mls/hr 08/30/19 17:30 08/30/19 18 :00 000 mcg/ Dextrose IV 5 mcg/min TITR ALONDRA 37.5 mls/hr Administration Protocol 5 MCG/MIN Piperacillin Sod/Tazobactam 50 mls @ 100 mls/hr 08/31/19 18:00 Sod 3.375 gm/ Dextrose IVPB Q8H-IV ALONDRA Protocol Piperacillin Sod/Tazobactam 50 mls @ 100 mls/hr 08/31/19 02:00 Sod 3.375 gm/ Dextrose IVPB 08/31/19 10:29 Q8H-IV ALONDRA Protocol Mupirocin 1 applic 08/30/19 22:00 Bactroban Ointment (For Decolonization) - NS 09/04/19 21:59 BID [facility] Oxycodone HCl 10 mg 08/30/19 19:32 Roxicodone - PO Q8H PRN PAIN LEVEL 4 - 6 Pantoprazole Sodium 40 mg 08/31/19 10:00 Protonix - PO DAILY [facility] Sotalol HCl 80 mg 08/30/19 22:00 Betapace - PO BID [facility]ON[facility]A ASSESSMENT/PLAN: 64 y/o male with PMH of squamous cell carcinoma (currently receiving chemo therapy last session was July), HTN, HLD, COPD, afib, SVC syndrome s/p stent placement presents to the ED with complaints of fevers and productive cough over the last 3 days find to be in septic shock 2/2 pneumonia #Neuro stable; no issues -monitor neuro status #Cardio history of HTN, HLD, afib currently hypotensive; on pressors -hold home anti-hypertensive medications -maintain MAPS >65 -monitor hemodynamics #Heme/Onc history of squamous cell ca ; -last chemo was july #ID septic shock -receieved vanc/zosyn -likely 2/2 to PNA -f/u blood and urine CX -f/u sputum cx -history of SVC stent (possible source? - consider consulting IR) -currently on pressors; maintain MAPS >65 -ID consulted #Pulm history of COPD -not currently in exacerbation CXR showed R effusion with R infiltrate -currently on vanc/zosyn -will c/w zosyn -f/u sputum cultures; legionella antigen -repeat CXR in AM F/E/N not on fluids no electrolyte abnormalities sodium diet dvt ppx: lovenox code status: full code Dispo: We will continue to follow the patient. Thank you for this consultative opportunity. Problem List - Problems (1) Severe sepsis Code(s): A41.9 - SEPSIS, UNSPECIFIED ORGANISM; R65.20 - SEVERE SEPSIS WITHOUT SEPTIC SHOCK (2) Afib Code(s): I48.91 - UNSPECIFIED ATRIAL FIBRILLATION (3) COPD (chronic obstructive pulmonary disease) Code(s): J44.9 - CHRONIC OBSTRUCTIVE PULMONARY DISEASE, UNSPECIFIED Qualifiers: COPD type: unspecified COPD Qualified Code(s): J44.9 - Chronic obstructive pulmonary disease, unspecified Visit type - Emergency Visit Emergency Visit: Yes Care time: The patient presented to the Emergency Department on the above date and was hospitalized for further evaluation of their emergent condition. - New Patient This patient is new to me today: Yes Date on this admission: 08/30/19 - Critical Care Critical Care patient: Yes Total Critical Care Time (in minutes): 35 Critical Care Statement: The care of this patient involved high complexity decision making to prevent further life threatening deterioration of the patient 's condition and/or to evaluate & treat vital organ system(s) failure or risk of failure. ATTENDING PHYSICIAN STATEMENT I saw and evaluated the patient. I reviewed the resident's note and discussed the case with the resident. I agree with the resident's findings and plan as documented. SUBJECTIVE: OBJECTIVE: ASSESSMENT AND PLAN:
[2019-08-30] MEDS ORDERED: ALBUTEROL SO4 2.5/IPRATROPIUM 0.5 INH SOL 3 ML VIAL.NEB. NEB ONE (20:27)
[2019-08-30] MEDS: ALBUTEROL SO4 2.5/IPRATROPIUM 0.5 INH SOL 3 ML VIAL.NEB. NEB SCH (20:37)
[2019-08-30] MEDS ORDERED: oxyCODONE HCL 5 MG TABLET ONE (21:30)
[2019-08-30] MEDS ORDERED: ENOXAPARIN NA (PORCINE) 100 MG/1 ML DISP.SYRIN SQ ONE (21:30)
[2019-08-30] MEDS ORDERED: GABAPENTIN 100 MG CAPSULE ONE (21:30)
[2019-08-30] MEDS: ENOXAPARIN NA (PORCINE) 100 MG/1 ML DISP.SYRIN SQ SCH (21:54)
[2019-08-30] MEDS: GABAPENTIN 300 MG CAPSULE PO SCH (21:54)
[2019-08-30] MEDS: oxyCODONE HCL 5 MG TABLET PO PRN (21:54)
[2019-08-30] MEDS ORDERED: SOTALOL HCL 80 MG TABLET (FP) PO SCH (22:00)
[2019-08-30] MEDS ORDERED: CHLORHEXIDINE GLUCONATE 4% CLEANSER FOR DECOLONIZATION TP SCH (22:00)
[2019-08-31] MEDS: PIPERACILLIN/TAZOB 3.375 GM 3.375 GM in DEXTROSE 5%-WATER - 50 ML IVPB SCH ×3 (02:50→12:49)
[2019-08-31] MEDS ORDERED: PIPERACILLIN/TAZOBACTAM 3.375 GM VIAL IVPB ONE ×2 (05:06→09:20)
[2019-08-31] MEDS ORDERED: DEXTROSE 5%-WATER - 50 ML IVPB ONE ×2 (05:07→09:20)
[2019-08-31 06:57] LABS: BASO % 0.2 % (0-2.0); EOS % 0.1 % (0-4.5); HEMATOCRIT 34.5 % (35.4-49); HEMOGLOBIN 11.4 GM/dL (11.7-16.9); LYMPH % 16.1 % (8-40); MCH 30.7 pg (25.7-33.7); MEAN PLT VOLUME 7.4 fl (7.5-11.1); MONO % 6.3 % (3.8-10.2); NEUT % 77.3 % (42.8-82.8); PLATELET COUNT 138 K/MM3 (134-434); RBC 3.71 M/mm3 (4.00-5.60); RDW 17.8 % (11.9-15.9); WHITE BLOOD COUNT 8.6 K/mm3 (4.0-10.0)
[2019-08-31] MEDS: MUPIROCIN 2% TOPICAL OINTMENT FOR DECOLONIZATION NS SCH ×2 (07:29→09:24)
[2019-08-31 07:55] LABS: BLOOD UREA NITROGEN 10.3 mg/dL (7-18); CALCIUM 7.7 mg/dL (8.5-10.1); CREATININE 0.7 mg/dL (0.55-1.3); MAGNESIUM 2.1 mg/dL (1.8-2.4); POTASSIUM 4.1 mmol/L (3.5-5.1)
[2019-08-31] MEDS: ALBUTEROL SO4 2.5/IPRATROPIUM 0.5 INH SOL 3 ML VIAL.NEB. NEB SCH ×4 (08:22→20:57)
--- NOTE | 2019-08-31 08:51 | PN ---
Progress Note, Physician - Current Medication List Current Medications: Active Medications Albuterol/Ipratropium (Duoneb -) 1 amp NEB RQID [facility] Last Admin: 08/31/19 08:22 Dose: 1 amp Chlorhexidine Gluconate (Hibiclens For Decolonization -) 1 applic TP HS [facility] Last Admin: 08/31/19 07:29 Dose: Not Given Enoxaparin Sodium (Lovenox -) 90 mg SQ BID [facility] Last Admin: 08/30/19 21:54 Dose: 90 mg Gabapentin (Neurontin -) 300 mg PO BID [facility] Last Admin: 08/30/19 21:54 Dose: 300 mg Norepinephrine Bitartrate 4, (000 mcg/ Dextrose) 500 mls @ 37.5 mls/hr IV TITR [facility]; Protocol Last Titration: 08/31/19 02:00 Dose: 0 mcg/min, 0 mls/hr Piperacillin Sod/Tazobactam (Sod 3.375 gm/ Dextrose) 50 mls @ 100 mls/hr IVPB Q8H-IV [facility]; Protocol Piperacillin Sod/Tazobactam (Sod 3.375 gm/ Dextrose) 50 mls @ 100 mls/hr IVPB Q8H-IV [facility]; Protocol Stop: 08/31/19 10:29 Last Admin: 08/31/19 05:00 Dose: 100 mls/hr Mupirocin (Bactroban Ointment (For Decolonization) -) 1 applic NS BID [facility] Stop: 09/04/19 21:59 Last Admin: 08/31/19 07:29 Dose: Not Given Oxycodone HCl (Roxicodone -) 10 mg PO Q8H PRN PRN Reason: PAIN LEVEL 4 - 6 Last Admin: 08/30/19 21:54 Dose: 10 mg Pantoprazole Sodium (Protonix -) 40 mg PO DAILY [facility] Sotalol HCl (Betapace -) 80 mg PO BID [facility] - Objective Vital Signs: Vital Signs Temperature 98.3 F 08/31/19 08:00 Pulse Rate 96 H 08/31/19 08:00 Respiratory Rate 18 08/31/19 08:00 Blood Pressure 107/78 08/31/19 08:00 O2 Sat by Pulse Oximetry (%) 95 08/31/19 00:30 Cardiovascular: Yes: S1, S2 Respiratory: Yes: Diminished, On Nasal O2, Rhonchi Gastrointestinal: Yes: Normal Bowel Sounds, Soft Labs: CBC, BMP 08/31/19 05:35 08/31/19 05:35 INR, PTT INR 1.20 (0.83-1.09) H 08/30/19 14:22 Problem List - Problems (1) Pneumonia Assessment/Plan: IV ABX ID CONSULT FOLLOW UP LABS Code(s): J18.9 - PNEUMONIA, UNSPECIFIED ORGANISM Qualifiers: Pneumonia type: due to unspecified organism Laterality: right Lung location: middle lobe of lung (2) Sepsis Assessment/Plan: ABOVE ICU MONITORING Code(s): A41.9 - SEPSIS, UNSPECIFIED ORGANISM Qualifiers: Sepsis type: sepsis due to unspecified organism Sepsis acute organ dysfunction status: without acute organ dysfunction Qualified Code(s): A41.9 - Sepsis, unspecified organism (3) COPD (chronic obstructive pulmonary disease) Assessment/Plan: NEBS PULM ON CASE Code(s): J44.9 - CHRONIC OBSTRUCTIVE PULMONARY DISEASE, UNSPECIFIED Qualifiers: COPD type: unspecified COPD Qualified Code(s): J44.9 - Chronic obstructive pulmonary disease, unspecified (4) DVT (deep venous thrombosis) Assessment/Plan: ON AC Code(s): I82.409 - ACUTE EMBOLISM AND THOMBOS UNSP DEEP VN UNSP LOWER EXTREMITY Qualifiers: DVT location: upper extremity Affected thrombotic vein of extremity: other upper extremity vein Chronicity: acute Laterality: right Qualified Code(s) : I82.621 - Acute embolism and thrombosis of deep veins of right upper extremity (5) Squamous cell lung cancer Assessment/Plan: ONCOLOGY CONSULT Code(s): C34.90 - MALIGNANT NEOPLASM OF UNSP PART OF UNSP BRONCHUS OR LUNG
[2019-08-31] MEDS: ENOXAPARIN NA (PORCINE) 100 MG/1 ML DISP.SYRIN SQ SCH ×2 (09:24→21:21)
[2019-08-31] MEDS: GABAPENTIN 300 MG CAPSULE PO SCH ×2 (09:24→21:20)
[2019-08-31] MEDS: oxyCODONE HCL 5 MG TABLET PO PRN ×2 (09:26→17:28)
[2019-08-31] MEDS ORDERED: PANTOPRAZOLE 40 MG TABLET PO SCH (10:00)
--- NOTE | 2019-08-31 10:37 | CON.ID ---
Consult Consult Specialty:: infectious diseases Referred by:: dr scott Reason for Consultation:: resp failure,pna,sepsis - History of Present Illness Chief Complaint: sob,weakness History of Present Illness: 64 y/o male with PMH of squamous cell carcinoma (currently receiving chemo therapy last session was July), HTN, HLD,COPD, afib, SVC syndrome s/p stent placement presents to the ED with complaints of fevers and productive cough over the last 3 days- patient states that his cough started 3 days ago and has been having productive green sputum and today had a fever of 103.3 which prompted him to come to the ED- in the ED patient was found to be hypotensive and was not responding to fluid resuscitation so R femoral line placement was started on levophed; notable labs:WBC 12.5, sodium 132, lactic acid 2.0 given vanc/zosyn and 2L normal saline CXR showed right effusion with right infiltrate the above was the history when the patient came to the operating room currently patient still not feeling too well - History Source History Provided By: Patient, Medical Record Limitations to Obtaining History: No Limitations - Past Medical History Cardio/Vascular: Yes: AFIB, HTN, Other (smoker with lung mass) Pulmonary: Yes: COPD - Past Surgical History Past Surgical History: Yes: Cholecystectomy, Hernia Repair - Alcohol/Substance Use Hx Alcohol Use: No - Smoking History Smoking history: Former smoker Have you smoked in the past 12 months: No Aproximately how many cigarettes per day: 5 If you are a former smoker, when did you quit?: 1 year - Social History Usual Living Arrangement: Alone ADL: Independent History of Recent Travel: No Home Medications - Allergies Allergies/Adverse Reactions: Allergies Allergy/AdvReac Type Severity Reaction Status Date / Time No Known Allergies Allergy Verified 08/30/19 16:40 - Home Medications Home Medications: Ambulatory Orders Sotalol HCl [Betapace -] 80 mg PO BID tablet 04/29/18 Diltiazem Cd [Cardizem Cd -] 120 mg PO DAILY #30 cap.cd.24h 05/05/18 Ondansetron HCl [Zofran] 8 mg PO TID 11/24/18 Morphine *Sr* [MS Contin -] 30 mg PO Q12H 11/25/18 Enoxaparin [Lovenox -] 90 mg SQ BID 03/28/19 Gabapentin 300 mg PO BID 03/28/19 Pantoprazole Sodium [Protonix] 40 mg PO DAILY 03/28/19 Lactobacillus Acidophilus [Bacid -] 1 tab PO DAILY #14 tab 04/06/19 Albuterol 0.083% Nebulizer Moon [Ventolin 0.083% Nebulizer Soln -] 1 amp NEB Q6H PRN amp 07/28/19 Albuterol 2.5/Ipratropium 0.5 [Duoneb -] 1 amp NEB RQID amp 07/28/19 oxyCODONE HCL [Roxicodone -] 10 mg PO Q8H PRN tablet MDD 4 07/28/19 Review of Systems - Review of Systems Constitutional: reports: No Symptoms Eyes: reports: No Symptoms HENT: reports: No Symptoms Neck: reports: No Symptoms Cardiovascular: reports: No Symptoms Respiratory: reports: SOB, SOB on Exertion, Other Gastrointestinal: reports: No Symptoms Genitourinary: reports: No Symptoms Musculoskeletal: reports: No Symptoms Integumentary: reports: No Symptoms Neurological: reports: No Symptoms Endocrine: reports: No Symptoms Hematology/Lymphatic: reports: No Symptoms Psychiatric: reports: No Symptoms Physical Exam Vital Signs: Vital Signs Temperature 98.3 F 08/31/19 08:00 Pulse Rate 96 H 08/31/19 08:00 Respiratory Rate 18 08/31/19 08:00 Blood Pressure 107/78 08/31/19 08:00 O2 Sat by Pulse Oximetry (%) 95 08/31/19 00:30 Constitutional: Yes: Calm, Mild Distress Eyes: Yes: Conjunctiva Clear HENT: Yes: Atraumatic, Normocephalic Neck: Yes: Supple, Trachea Midline Cardiovascular: Yes: Regular Rate and Rhythm Respiratory: Yes: On Nasal O2, Poor Air Entry Gastrointestinal: Yes: Normal Bowel Sounds, Soft Musculoskeletal: Yes: WNL Extremities: Yes: WNL Neurological: Yes: Alert, Oriented Psychiatric: Yes: Alert, Oriented Labs: CBC, BMP 08/31/19 05:35 08/31/19 05:35 Imaging - Results Chest X-ray: Report Reviewed, Image Reviewed Assessment/Plan 64 y/o male with PMH of squamous cell carcinoma (currently receiving chemo therapy last session was July), HTN, HLD, COPD, afib, SVC syndrome s/p stent placement presents to the ED with complaints of fevers and productive cough over the last 3 days find to be in septic shock patient was given iv fluids and now on pressors still breathing not good htn hld lung ca afib svc syndrome septic shock pleural effusion plan continue vanco and zosyn if patients sob does not improve consider theurapatic tapping resp support continue current mgmt close watch wean pressors as tolerated rest as per icu cc 45 min
--- NOTE | 2019-08-31 11:04 | CONSULT ---
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 Pt was also noted at that time to have hypotension refractory to fluid resuscitation and was admitted to the ICU for hemodynamic support. Pt was found to have likely pneumonia with parapneumonic effusion and was being treated alongside of pressors. We were asked to medically evaluate this patient due to his long-standing history of SCC of the lung considering his acute infectious problem. Pt was previously treated with RT, Taxol and Carboplatinum early of 2018 and was transitioned to Gemzar in 02/2019 due to increased tumor size. His last treatment (C6 D15) was received on 07/10/2019. Baseline ECOG 2; KARNOFSKY Score - 50 PMHX: as above + Atrial fibrillation, Hepatitis C (treated with Mirian 2016) PSHx: Cholecystectomy, Colonoscopy (2016; Dr. 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 for 4 months FamHx: Brother - Lung Ca; PA Sister - Breast Ca REVIEW OF SYSTEMS: As per HPI PHYSICAL EXAMINATION Vital Signs - 24 hr 08/30/19 08/30/19 08/30/19 14:03 14:30 14:34 Temperature 103.3 F H 103.3 F H Pulse Rate 134 H 134 H Pulse Rate [ 122 H Right Radial] Respiratory 20 18 20 Rate Blood Pressure 163/111 H 163/111 H Blood Pressure 85/68 L [Left Arm] O2 Sat by Pulse 94 L 92 L 96 Oximetry (%) 08/30/19 08/30/19 08/30/19 14:35 15:07 15:30 Temperature Pulse Rate Pulse Rate [ 127 H 119 H Right Radial] Respiratory 20 22 H Rate Blood Pressure Blood Pressure 89/63 L 87/66 L [Left Arm] O2 Sat by Pulse 96 96 93 L Oximetry (%) 08/30/19 08/30/19 08/30/19 16:00 16:30 17:00 Temperature Pulse Rate Pulse Rate [ 121 H 114 H 111 H Right Radial] Respiratory 20 22 H 20 Rate Blood Pressure Blood Pressure 83/61 L 90/61 94/65 [Left Arm] O2 Sat by Pulse 92 L 94 L 97 Oximetry (%) 08/30/19 08/30/19 08/30/19 17:30 18:00 18:30 Temperature Pulse Rate 111 H Pulse Rate [ 116 H 111 H 106 H Right Radial] Respiratory 30 H 25 H 22 H Rate Blood Pressure 82/57 L Blood Pressure 100/71 82/57 L 95/66 [Left Arm] O2 Sat by Pulse 97 100 100 Oximetry (%) 08/30/19 08/30/19 08/30/19 19:00 19:30 20:00 Temperature Pulse Rate Pulse Rate [ 106 H 112 H 105 H Right Radial] Respiratory 28 H 30 H 29 H Rate Blood Pressure Blood Pressure 99/64 101/64 97/62 [Left Arm] O2 Sat by Pulse 98 98 100 Oximetry (%) 08/30/19 08/30/19 08/30/19 20:30 21:00 21:30 Temperature Pulse Rate Pulse Rate [ 104 H 103 H 97 H Right Radial] Respiratory 22 H 21 H 20 Rate Blood Pressure Blood Pressure 96/62 95/65 102/68 [Left Arm] O2 Sat by Pulse 100 100 100 Oximetry (%) 08/30/19 08/30/19 08/31/19 22:00 22:30 00:15 Temperature 98.4 F Pulse Rate 98 H Pulse Rate [ 94 H 93 H Right Radial] Respiratory 17 15 22 H Rate Blood Pressure 102/76 Blood Pressure 102/70 108/68 [Left Arm] O2 Sat by Pulse 100 100 Oximetry (%) 08/31/19 08/31/19 08/31/19 00:30 02:00 04:00 Temperature 98.4 F 98.5 F Pulse Rate 98 H 95 H 92 H Pulse Rate [ Right Radial] Respiratory 22 H 16 16 Rate Blood Pressure 102/76 109/79 100/79 Blood Pressure [Left Arm] O2 Sat by Pulse 95 Oximetry (%) 08/31/19 08/31/19 06:00 08:00 Temperature 97.6 F 98.3 F Pulse Rate 92 H 96 H Pulse Rate [ Right Radial] Respiratory 19 18 Rate Blood Pressure 107/84 107/78 Blood Pressure [Left Arm] O2 Sat by Pulse Oximetry (%) GENERAL: Awake, alert, and fully oriented, in no acute distress. HEENT: NC/AT, ANN-MARIE, EOMI, sclera anicteric, MMM without mucositis or thrush NECK: no JVD; no lymphadenopathy LUNGS: Decreased R base sounds, no overt wheezing. No accessory muscle use. 3LNC HEART: Irregularly irregular, normal S1 and S2 without murmur ABDOMEN: Soft, NT/ND, normoactive BS, no masses appreciated. EXTREMITIES: warm; well-perfused, no edema PSYCHIATRIC: Cooperative. Good eye contact. Appropriate mood and affect. SKIN: Warm, dry, no rashes or lesions noted. Laboratory Results 08/30/19 08/30/19 08/30/19 14:22 14:22 14:22 WBC 12.5 H RBC 4.27 Hgb 13.1 Hct 40.5 D MCV 95.0 MCH 30.8 MCHC 32.4 RDW 17.7 H Plt Count 164 D MPV 7.6 Absolute Neuts (auto) 9.1 H Neutrophils % 72.2 Lymphocytes % 19.0 D Monocytes % 7.8 Eosinophils % 0.6 Basophils % 0.4 Nucleated RBC % 0 Platelet Estimate Decreased Platelet Comment No clumping noted PT with INR 14.20 H INR 1.20 H PTT (Actin FS) 34.4 VBG pH POC VBG pCO2 POC VBG pO2 VBG HCO3 VBG O2 Sat (Wang) VBG Base Excess Sodium 132 L Potassium 5.0 Chloride 96 L Carbon Dioxide 28 Anion Gap 7 L BUN 19.9 H Creatinine 1.0 Est GFR (CKD-EPI)AfAm 91.78 Est GFR (CKD-EPI)NonAf 79.19 Random Glucose 126 H Lactic Acid Calcium 7.4 L Phosphorus Magnesium Total Bilirubin 1.0 AST 31 ALT 37 Alkaline Phosphatase 56 Creatine Kinase Troponin I < 0.02 Total Protein 6.6 Albumin 2.8 L Lipase 49 L TSH Urine Color Urine Appearance Urine pH Ur Specific [place] Urine Protein Urine Glucose (UA) Urine Ketones Urine Blood Urine Nitrite Urine Bilirubin Urine Urobilinogen Ur Leukocyte Esterase Influenza A (Rapid) Influenza B (Rapid) 08/30/19 08/30/19 08/30/19 14:22 14:22 15:26 WBC RBC Hgb Hct MCV MCH MCHC RDW Plt Count MPV Absolute Neuts (auto) Neutrophils % Lymphocytes % Monocytes % Eosinophils % Basophils % Nucleated RBC % Platelet Estimate Platelet Comment PT with INR INR PTT (Actin FS) VBG pH 7.38 POC VBG pCO2 53.7 H POC VBG pO2 < 49 H VBG HCO3 30.9 H VBG O2 Sat (Wang) 57.0 L VBG Base Excess 4.0 H Sodium Potassium Chloride Carbon Dioxide Anion Gap BUN Creatinine Est GFR (CKD-EPI)AfAm Est GFR (CKD-EPI)NonAf Random Glucose Lactic Acid 2.0 Calcium Phosphorus Magnesium Total Bilirubin AST ALT Alkaline Phosphatase Creatine Kinase Troponin I Total Protein Albumin Lipase TSH Urine Color Urine Appearance Urine pH Ur Specific [place] Urine Protein Urine Glucose (UA) Urine Ketones Urine Blood Urine Nitrite Urine Bilirubin Urine Urobilinogen Ur Leukocyte Esterase Influenza A (Rapid) Negative Influenza B (Rapid) Negative 08/30/19 08/30/19 08/31/19 16:05 20:10 05:35 WBC 8.6 RBC 3.71 L Hgb 11.4 L Hct 34.5 L MCV 93.0 MCH 30.7 MCHC 33.0 RDW 17.8 H Plt Count 138 MPV 7.4 L Absolute Neuts (auto) 6.6 Neutrophils % 77.3 Lymphocytes % 16.1 Monocytes % 6.3 Eosinophils % 0.1 D Basophils % 0.2 Nucleated RBC % 0 Platelet Estimate Platelet Comment PT with INR INR PTT (Actin FS) VBG pH POC VBG pCO2 POC VBG pO2 VBG HCO3 VBG O2 Sat (Wang) VBG Base Excess Sodium Potassium Chloride Carbon Dioxide Anion Gap BUN Creatinine Est GFR (CKD-EPI)AfAm Est GFR (CKD-EPI)NonAf Random Glucose Lactic Acid Calcium Phosphorus Magnesium Total Bilirubin AST ALT Alkaline Phosphatase Creatine Kinase 20 L Troponin I < 0.02 Total Protein Albumin Lipase TSH Urine Color Yellow Urine Appearance Clear Urine pH 7.0 Ur Specific [place] 1.022 Urine Protein Trace Urine Glucose (UA) Negative Urine Ketones Negative Urine Blood Negative Urine Nitrite Negative Urine Bilirubin Negative Urine Urobilinogen 1.0 Ur Leukocyte Esterase Negative Influenza A (Rapid) Influenza B (Rapid) 08/31/19 05:35 WBC RBC Hgb Hct MCV MCH MCHC RDW Plt Count MPV Absolute Neuts (auto) Neutrophils % Lymphocytes % Monocytes % Eosinophils % Basophils % Nucleated RBC % Platelet Estimate Platelet Comment PT with INR INR PTT (Actin FS) VBG pH POC VBG pCO2 POC VBG pO2 VBG HCO3 VBG O2 Sat (Wang) VBG Base Excess Sodium 136 Potassium 4.1 Chloride 100 Carbon Dioxide 29 Anion Gap 7 L BUN 10.3 Creatinine 0.7 Est GFR (CKD-EPI)AfAm 115.59 Est GFR (CKD-EPI)NonAf 99.73 Random Glucose 147 H Lactic Acid Calcium 7.7 L Phosphorus 3.0 Magnesium 2.1 Total Bilirubin AST ALT Alkaline Phosphatase Creatine Kinase Troponin I Total Protein Albumin Lipase TSH 0.24 L D Urine Color Urine Appearance Urine pH Ur Specific [place] Urine Protein Urine Glucose (UA) Urine Ketones Urine Blood Urine Nitrite Urine Bilirubin Urine Urobilinogen Ur Leukocyte Esterase Influenza A (Rapid) Influenza B (Rapid) Active Medications Generic Name Dose Route Start Last Admin Trade Name Freq PRN Reason Stop Dose Admin Albuterol/Ipratropium 1 amp 08/30/19 20:00 08/31/19 08:22 Duoneb - NEB 1 amp RQID ALONDRA Administration Chlorhexidine Gluconate 1 applic 08/30/19 22:00 08/31/19 07:29 Hibiclens For Decolonization - TP Not Given HS ALONDRA Enoxaparin Sodium 90 mg 08/30/19 22:00 08/31/19 09:24 Lovenox - SQ 90 mg BID ALONDRA Administration Gabapentin 300 mg 08/30/19 22:00 08/31/19 09:24 Neurontin - PO 300 mg BID ALONDRA Administration Norepinephrine Bitartrate 4, 500 mls @ 37.5 mls/hr 08/30/19 17:30 08/31/19 02 :00 000 mcg/ Dextrose IV 0 mcg/min TITR ALONDRA 0 mls/hr Titration Protocol 5 MCG/MIN Piperacillin Sod/Tazobactam 50 mls @ 100 mls/hr 08/31/19 18:00 Sod 3.375 gm/ Dextrose IVPB Q8H-IV ALONDRA Protocol Mupirocin 1 applic 08/30/19 22:00 08/31/19 09:24 Bactroban Ointment (For Decolonization) - NS 09/04/19 21:59 1 applic BID ALONDRA Administration Oxycodone HCl 10 mg 08/30/19 19:32 08/31/19 09:26 Roxicodone - PO 10 mg Q8H PRN Administration PAIN LEVEL 4 - 6 Pantoprazole Sodium 40 mg 08/31/19 10:00 08/31/19 09:25 Protonix - PO 40 mg DAILY ALONDRA Administration Sotalol HCl 80 mg 08/30/19 22:00 Betapace - PO BID ALONDRA ASSESSMENT/PLAN: Septic shock 2/2 to pneumonia Stage III Squamous Cell Carcinoma of the Lung Normocytic Anemia COPD SVC syndromes s/p stent placement HTN HLD Atrial fibrillation --Last dose of Gemzar 07/10/2019 --In the absence of leukopenia likely noncontributory to acute condition --Normocytic anemia likely related to chronic condition --Monitor counts --ABX and shock treatment per ICU and primary teams --Full-dose AC with lovenox (1mg/kg BID) --Will follow patient peripherally Case to be discussed Ricardo Arreola DO - PGY-3 Visit type - Emergency Visit Emergency Visit: Yes ED Registration Date: 08/30/19 Care time: The patient presented to the Emergency Department on the above date and was hospitalized for further evaluation of their emergent condition. - New Patient This patient is new to me today: Yes Date on this admission: 08/31/19 - Critical Care Critical Care patient: No ATTENDING PHYSICIAN STATEMENT I saw and evaluated the patient. I reviewed the resident's note and discussed the case with the resident. I agree with the resident's findings and plan as documented. SUBJECTIVE: OBJECTIVE: ASSESSMENT AND PLAN:
[2019-08-31] MEDS ORDERED: PIPERACILLIN/TAZOB 3.375 GM 3.375 GM in DEXTROSE 5%-WATER - 50 ML IVPB SCH (11:30)
--- NOTE | 2019-08-31 11:42 | PN ---
Physical Exam: SUBJECTIVE: Patient seen and examined. No acute events overnight. Pt now off pressors. OBJECTIVE: Vital Signs Period Temp Pulse Resp BP Sys/Gtz Pulse Ox Last 24 Hr 97.6 F-103.3 F 16-134 15-30 82-163/57-111 92-100 GENERAL: The patient is awake, alert, and fully oriented, in no acute distress. HEAD: Normal with no signs of trauma. EYES: PERRL, extraocular movements intact, sclera anicteric, conjunctiva clear. No ptosis. ENT: Ears normal, nares patent, oropharynx clear without exudates, moist mucous membranes. NECK: Trachea midline, full range of motion, supple. LUNGS: Decreased breath sounds at R base, no wheezes, no crackles, no accessory muscle use. HEART: Irregularly irregular, S1, S2 without murmur, rub or gallop. ABDOMEN: Soft, nontender, nondistended, normoactive bowel sounds, no guarding, no rebound, no hepatosplenomegaly, no masses. EXTREMITIES: 2+ pulses, warm, well-perfused, no edema. R femoral line placed NEUROLOGICAL: Cranial nerves II through XII grossly intact. Normal speech, gait not observed. PSYCH: Normal mood, normal affect. SKIN: Warm, dry, normal turgor, no rashes or lesions noted Laboratory Results - last 24 hr CBC, BMP 08/31/19 05:35 08/31/19 05:35 Active Medications Albuterol/Ipratropium (Duoneb -) 1 amp NEB RQID [facility] Last Admin: 08/31/19 08:22 Dose: 1 amp Chlorhexidine Gluconate (Hibiclens For Decolonization -) 1 applic TP HS [facility] Last Admin: 08/31/19 07:29 Dose: Not Given Enoxaparin Sodium (Lovenox -) 90 mg SQ BID [facility] Last Admin: 08/31/19 09:24 Dose: 90 mg Gabapentin (Neurontin -) 300 mg PO BID [facility] Last Admin: 08/31/19 09:24 Dose: 300 mg Norepinephrine Bitartrate 4, (000 mcg/ Dextrose) 500 mls @ 37.5 mls/hr IV TITR [facility]; Protocol Last Titration: 08/31/19 02:00 Dose: 0 mcg/min, 0 mls/hr Piperacillin Sod/Tazobactam (Sod 3.375 gm/ Dextrose) 50 mls @ 100 mls/hr IVPB Q8H-IV ALONDRA; Protocol Vancomycin HCl 1,250 mg/ (Dextrose) 250 mls @ 166.667 mls/hr IVPB Q24H ALONDRA Mupirocin (Bactroban Ointment (For Decolonization) -) 1 applic NS BID ALONDRA Stop: 09/04/19 21:59 Last Admin: 08/31/19 09:24 Dose: 1 applic Oxycodone HCl (Roxicodone -) 10 mg PO Q8H PRN PRN Reason: PAIN LEVEL 4 - 6 Last Admin: 08/31/19 09:26 Dose: 10 mg Pantoprazole Sodium (Protonix -) 40 mg PO DAILY ALONDRA Last Admin: 08/31/19 09:25 Dose: 40 mg Sotalol HCl (Betapace -) 80 mg PO BID ALONDRA ASSESSMENT/PLAN: Patient is a 64 year old M w/PMH of of squamous cell carcinoma (currently receiving chemo therapy last session was July), HTN, HLD, COPD, afib, SVC syndrome s/p stent placement presents to the ED with complaints of fevers and productive cough over the last 3 days find to be in septic shock 2/2 pneumonia Neuro -Stable; no issues -Monitor neuro status Cardiovascular -History of HTN, HLD, afib -Holding home anti-hypertensive medications in setting of hypotension -Pt placed on levophed on admission, now weaned off -Maintain MAPS >65 -Monitor hemodynamics -Hx of SVC stent. IR consulted, rec CTA to evaluate patency of stent Heme/Onc -History of squamous cell ca -Last chemo was july ID -Septic shock -Cont zosyn 3.375mg Q8H and vanc Q25H -Likely 2/2 to PNA -Urine, blood, sputum cx: NGTD -History of SVC stent (possible source? - consulting IR) -Off pressors; maintain MAPS >65 -ID consulted (Dr. Jeronimo) Pulmonary -History of COPD -Not currently in exacerbation -CXR (08/31/19): R effusion with R infiltrate -Currently on vanc/zosyn -F/u sputum cultures; legionella antigen -Repeat CXR daily FEN -Not on fluids -No electrolyte abnormalities -Sodium diet DVT ppx: lovenox Dispo: Stable for transfer to Med-surg Code status: full code Dispo: Stable for transfer to Med-surg Visit type - Emergency Visit Emergency Visit: No - New Patient This patient is new to me today: No - Critical Care Critical Care patient: Yes Total Critical Care Time (in minutes): 45 Critical Care Statement: The care of this patient involved high complexity decision making to prevent further life threatening deterioration of the patient 's condition and/or to evaluate & treat vital organ system(s) failure or risk of failure. ATTENDING PHYSICIAN STATEMENT I saw and evaluated the patient. I reviewed the resident's note and discussed the case with the resident. I agree with the resident's findings and plan as documented. SUBJECTIVE: OBJECTIVE: ASSESSMENT AND PLAN:
--- NOTE | 2019-08-31 11:53 | EKG ---
Test Reason : Blood Pressure : / mmHG Vent. Rate : 106 BPM Atrial Rate : 106 BPM P-R Int : 170 ms QRS Dur : 068 ms QT Int : 350 ms P-R-T Axes : 042 -01 041 degrees QTc Int : 464 ms SINUS TACHYCARDIA POSSIBLE LEFT ATRIAL ENLARGEMENT SEPTAL INFARCT , AGE UNDETERMINED ABNORMAL ECG WHEN COMPARED WITH ECG OF 30-AUG-2019 14:08, PREVIOUS ECG HAS UNDETERMINED RHYTHM, NEEDS REVIEW QRS AXIS SHIFTED RIGHT SEPTAL INFARCT IS NOW PRESENT CRITERIA FOR INFERIOR INFARCT ARE NO LONGER PRESENT Confirmed by ZHANG ANDRADE MD ([id number]) on 08/31/2019 11:53:15 AM Referred By: Confirmed By:ZHANG ANDRADE MD
--- NOTE | 2019-08-31 11:54 | EKG ---
Test Reason : Blood Pressure : / mmHG Vent. Rate : 156 BPM Atrial Rate : 149 BPM P-R Int : 156 ms QRS Dur : 056 ms QT Int : 284 ms P-R-T Axes : 038 -47 030 degrees QTc Int : 457 ms POOR DATA QUALITY, INTERPRETATION MAY BE ADVERSELY AFFECTED SINUS TACHYCARDIA LEFT AXIS DEVIATION INFERIOR INFARCT , AGE UNDETERMINED ABNORMAL ECG WHEN COMPARED WITH ECG OF 22-JUL-2019 21:22, SIGNIFICANT CHANGES HAVE OCCURRED Confirmed by LUPE BENITEZ, ZHANG ([id number]) on 08/31/2019 11:54:16 AM Referred By: Confirmed By:ZHANG ANDRADE MD
--- NOTE | 2019-08-31 13:03 | PN ---
Teaching Attending Note Name of Resident: Nury Mcclelland ATTENDING PHYSICIAN STATEMENT I saw and evaluated the patient. I reviewed the resident's note and discussed the case with the resident. I agree with the resident's findings and plan as documented. SUBJECTIVE: Patient seen and examined in the ICU. Awake and alert. Denies CP or SOB. Off pressors. No acute events overnight. Intake & Output 08/28/19 08/29/19 08/30/19 08/31/19 23:59 23:59 23:59 23:59 Intake Total 3100.5 230 Output Total 350 Balance 2750.5 230 Weight 192 lb 195 lb Last Vital Signs Temp Pulse Resp BP Pulse Ox 98.3 F 96 H 18 107/78 95 08/31/19 08:00 08/31/19 08:00 08/31/19 09:00 08/31/19 08:00 08/31/19 09:00 Active Medications Albuterol/Ipratropium (Duoneb -) 1 amp NEB RQID [facility] Last Admin: 08/31/19 08:22 Dose: 1 amp Chlorhexidine Gluconate (Hibiclens For Decolonization -) 1 applic TP HS [facility] Last Admin: 08/31/19 07:29 Dose: Not Given Enoxaparin Sodium (Lovenox -) 90 mg SQ BID [facility] Last Admin: 08/31/19 09:24 Dose: 90 mg Gabapentin (Neurontin -) 300 mg PO BID [facility] Last Admin: 08/31/19 09:24 Dose: 300 mg Piperacillin Sod/Tazobactam (Sod 3.375 gm/ Dextrose) 50 mls @ 100 mls/hr IVPB Q8H-IV ALONDRA; Protocol Last Admin: 08/31/19 12:49 Dose: Not Given Vancomycin HCl 1,250 mg/ (Dextrose) 250 mls @ 166.667 mls/hr IVPB Q24H [facility] Mupirocin (Bactroban Ointment (For Decolonization) -) 1 applic NS BID [facility] Stop: 09/04/19 21:59 Last Admin: 08/31/19 09:24 Dose: 1 applic Oxycodone HCl (Roxicodone -) 10 mg PO Q8H PRN PRN Reason: PAIN LEVEL 4 - 6 Last Admin: 08/31/19 09:26 Dose: 10 mg Pantoprazole Sodium (Protonix -) 40 mg PO DAILY [facility] Last Admin: 08/31/19 09:25 Dose: 40 mg Sotalol HCl (Betapace -) 80 mg PO BID [facility] GENERAL: Awake, alert, and fully oriented, in no acute distress. EYES: PEERLA; EOMI; no scleral icterus . NECK: no JVD; no lymphadenopathy LUNGS: decreased breath sounds mainly at R base HEART: irregularly irregular normal S1 and S2 without murmur, rub or gallop. ABDOMEN: Soft, NT/ND +BS in all 4 quadrants MUSCULOSKELETAL: Normal range of motion at all joints. No bony deformities or tenderness. No CVA tenderness. EXTREMITIES: warm; well-perfused no clubbing/cyanosis or edema NEUROLOGICAL: Non-focal PSYCHIATRIC: Cooperative. Good eye contact. Appropriate mood and affect. SKIN: Warm, dry, normal turgor, no rashes or lesions noted. Laboratory Results - last 24 hr 08/30/19 08/30/19 08/30/19 14:22 14:22 14:22 WBC 12.5 H RBC 4.27 Hgb 13.1 Hct 40.5 D MCV 95.0 MCH 30.8 MCHC 32.4 RDW 17.7 H Plt Count 164 D MPV 7.6 Absolute Neuts (auto) 9.1 H Neutrophils % 72.2 Lymphocytes % 19.0 D Monocytes % 7.8 Eosinophils % 0.6 Basophils % 0.4 Nucleated RBC % 0 Platelet Estimate Decreased Platelet Comment No clumping noted PT with INR 14.20 H INR 1.20 H PTT (Actin FS) 34.4 VBG pH POC VBG pCO2 POC VBG pO2 VBG HCO3 VBG O2 Sat (Wang) VBG Base Excess Sodium 132 L Potassium 5.0 Chloride 96 L Carbon Dioxide 28 Anion Gap 7 L BUN 19.9 H Creatinine 1.0 Est GFR (CKD-EPI)AfAm 91.78 Est GFR (CKD-EPI)NonAf 79.19 Random Glucose 126 H Hemoglobin A1c % Lactic Acid Calcium 7.4 L Phosphorus Magnesium Total Bilirubin 1.0 AST 31 ALT 37 Alkaline Phosphatase 56 Creatine Kinase Troponin I < 0.02 Total Protein 6.6 Albumin 2.8 L Lipase 49 L TSH Urine Color Urine Appearance Urine pH Ur Specific [place] Urine Protein Urine Glucose (UA) Urine Ketones Urine Blood Urine Nitrite Urine Bilirubin Urine Urobilinogen Ur Leukocyte Esterase Influenza A (Rapid) Influenza B (Rapid) 08/30/19 08/30/19 08/30/19 14:22 14:22 15:26 WBC RBC Hgb Hct MCV MCH MCHC RDW Plt Count MPV Absolute Neuts (auto) Neutrophils % Lymphocytes % Monocytes % Eosinophils % Basophils % Nucleated RBC % Platelet Estimate Platelet Comment PT with INR INR PTT (Actin FS) VBG pH 7.38 POC VBG pCO2 53.7 H POC VBG pO2 < 49 H VBG HCO3 30.9 H VBG O2 Sat (Wang) 57.0 L VBG Base Excess 4.0 H Sodium Potassium Chloride Carbon Dioxide Anion Gap BUN Creatinine Est GFR (CKD-EPI)AfAm Est GFR (CKD-EPI)NonAf Random Glucose Hemoglobin A1c % Lactic Acid 2.0 Calcium Phosphorus Magnesium Total Bilirubin AST ALT Alkaline Phosphatase Creatine Kinase Troponin I Total Protein Albumin Lipase TSH Urine Color Urine Appearance Urine pH Ur Specific [place] Urine Protein Urine Glucose (UA) Urine Ketones Urine Blood Urine Nitrite Urine Bilirubin Urine Urobilinogen Ur Leukocyte Esterase Influenza A (Rapid) Negative Influenza B (Rapid) Negative 08/30/19 08/30/19 08/31/19 16:05 20:10 05:35 WBC 8.6 RBC 3.71 L Hgb 11.4 L Hct 34.5 L MCV 93.0 MCH 30.7 MCHC 33.0 RDW 17.8 H Plt Count 138 MPV 7.4 L Absolute Neuts (auto) 6.6 Neutrophils % 77.3 Lymphocytes % 16.1 Monocytes % 6.3 Eosinophils % 0.1 D Basophils % 0.2 Nucleated RBC % 0 Platelet Estimate Platelet Comment PT with INR INR PTT (Actin FS) VBG pH POC VBG pCO2 POC VBG pO2 VBG HCO3 VBG O2 Sat (Wang) VBG Base Excess Sodium Potassium Chloride Carbon Dioxide Anion Gap BUN Creatinine Est GFR (CKD-EPI)AfAm Est GFR (CKD-EPI)NonAf Random Glucose Hemoglobin A1c % Lactic Acid Calcium Phosphorus Magnesium Total Bilirubin AST ALT Alkaline Phosphatase Creatine Kinase 20 L Troponin I < 0.02 Total Protein Albumin Lipase TSH Urine Color Yellow Urine Appearance Clear Urine pH 7.0 Ur Specific [place] 1.022 Urine Protein Trace Urine Glucose (UA) Negative Urine Ketones Negative Urine Blood Negative Urine Nitrite Negative Urine Bilirubin Negative Urine Urobilinogen 1.0 Ur Leukocyte Esterase Negative Influenza A (Rapid) Influenza B (Rapid) 08/31/19 08/31/19 05:35 05:35 WBC RBC Hgb Hct MCV MCH MCHC RDW Plt Count MPV Absolute Neuts (auto) Neutrophils % Lymphocytes % Monocytes % Eosinophils % Basophils % Nucleated RBC % Platelet Estimate Platelet Comment PT with INR INR PTT (Actin FS) VBG pH POC VBG pCO2 POC VBG pO2 VBG HCO3 VBG O2 Sat (Wang) VBG Base Excess Sodium 136 Potassium 4.1 Chloride 100 Carbon Dioxide 29 Anion Gap 7 L BUN 10.3 Creatinine 0.7 Est GFR (CKD-EPI)AfAm 115.59 Est GFR (CKD-EPI)NonAf 99.73 Random Glucose 147 H Hemoglobin A1c % 6.6 H Lactic Acid Calcium 7.7 L Phosphorus 3.0 Magnesium 2.1 Total Bilirubin AST ALT Alkaline Phosphatase Creatine Kinase Troponin I Total Protein Albumin Lipase TSH 0.24 L D Urine Color Urine Appearance Urine pH Ur Specific [place] Urine Protein Urine Glucose (UA) Urine Ketones Urine Blood Urine Nitrite Urine Bilirubin Urine Urobilinogen Ur Leukocyte Esterase Influenza A (Rapid) Influenza B (Rapid) Problem List - Problems (1) Severe sepsis Code(s): A41.9 - SEPSIS, UNSPECIFIED ORGANISM; R65.20 - SEVERE SEPSIS WITHOUT SEPTIC SHOCK (2) Afib Code(s): I48.91 - UNSPECIFIED ATRIAL FIBRILLATION (3) COPD (chronic obstructive pulmonary disease) Code(s): J44.9 - CHRONIC OBSTRUCTIVE PULMONARY DISEASE, UNSPECIFIED Qualifiers: COPD type: unspecified COPD Qualified Code(s): J44.9 - Chronic obstructive pulmonary disease, unspecified ASSESSMENT/PLAN: Resolved Septic Shock: suspected source: PNA Squamous cell carcinoma HTN HLD COPD AFib SVC syndrome S/P SVC placement ABX per ID IVF Strict I & O IR evaluation of stent BD TX Monitor off systemic steroids AC with Lovenex Floor Dr Jean
--- NOTE | 2019-08-31 16:10 | EKG ---
Test Reason : Blood Pressure : / mmHG Vent. Rate : 110 BPM Atrial Rate : 110 BPM P-R Int : 176 ms QRS Dur : 070 ms QT Int : 334 ms P-R-T Axes : 045 -03 033 degrees QTc Int : 452 ms SINUS TACHYCARDIA OTHERWISE NORMAL ECG WHEN COMPARED WITH ECG OF 30-AUG-2019 18:43, CRITERIA FOR SEPTAL INFARCT ARE NO LONGER PRESENT Confirmed by ZHANG ANDRADE MD ([id number]) on 08/31/2019 4:09:43 PM Referred By: Confirmed By:ZHANG ANDRADE MD
[2019-08-31] MEDS ORDERED: dilTIAZem HCL 60 MG TABLET (FP) PO ONE (17:06)
[2019-08-31] MEDS: VANCOMYCIN HCL 1,250 MG in DEXTROSE 5%-WATER - 250 ML IVPB SCH (17:11)
[2019-08-31] MEDS ORDERED: METOPROLOL TARTRATE 5 MG/5 ML VIAL IVPUSH ONE ×2 (18:10→18:13)
[2019-08-31] MEDS ORDERED: SODIUM CHLORIDE 1,000 ML IV SCH (18:15)
[2019-08-31] MEDS ORDERED: dilTIAZem HCL 50 MG/10 ML - 10 ML VIAL IVPUSH ONE (18:17)
--- NOTE | 2019-08-31 20:19 | PN ---
Teaching Attending Note Name of Resident: Ricardo Arreola ATTENDING PHYSICIAN STATEMENT I saw and evaluated the patient. I reviewed the resident's note and discussed the case with the resident. I agree with the resident's findings and plan as documented. SUBJECTIVE: Pt doing well. 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 Pt was also noted at that time to have hypotension refractory to fluid resuscitation and was admitted to the ICU for hemodynamic support. Pt was found to have likely pneumonia with parapneumonic effusion and was being treated alongside of pressors. We were asked to medically evaluate this patient due to his long-standing history of SCC of the lung considering his acute infectious problem. Pt was previously treated with RT, Taxol and Carboplatin early of 2018 and was transitioned to Gemcitabine in 02/2019 due to increased tumor size (completed C6D15 on 07/10/2019) Recommend: 1) Sepsis secondary to pneumonia. Vancomycin and Zosyn 2) Not neutropenic at this time 3) Thank you for this consultation
[2019-08-31] MEDS: SOTALOL HCL 80 MG TABLET (FP) PO SCH (21:20)
[2019-08-31] MEDS: SODIUM CHLORIDE 1,000 ML IV SCH (21:20)
[2019-08-31] MEDS ORDERED: CHLORHEXIDINE GLUCONATE 4% CLEANSER FOR DECOLONIZATION TP SCH (22:00)
[2019-08-31] MEDS ORDERED: MUPIROCIN 2% TOPICAL OINTMENT FOR DECOLONIZATION NS SCH (22:00)
[2019-09-01] MEDS: oxyCODONE HCL 5 MG TABLET PO PRN ×3 (01:19→19:10)
[2019-09-01] MEDS ORDERED: PIPERACILLIN/TAZOB 3.375 GM 3.375 GM in DEXTROSE 5%-WATER - 50 ML IVPB SCH (02:00)
[2019-09-01] MEDS: ALBUTEROL SO4 2.5/IPRATROPIUM 0.5 INH SOL 3 ML VIAL.NEB. NEB SCH ×4 (08:00→20:31)
--- NOTE | 2019-09-01 08:18 | PN ---
Progress Note, Physician - Current Medication List Current Medications: Active Medications Albuterol/Ipratropium (Duoneb -) 1 amp NEB RQID [facility] Diltiazem HCl (Cardizem Cd -) 120 mg PO DAILY [facility] Enoxaparin Sodium (Lovenox -) 90 mg SQ BID [facility] Last Admin: 08/31/19 21:21 Dose: 90 mg Gabapentin (Neurontin -) 300 mg PO BID [facility] Last Admin: 08/31/19 21:20 Dose: 300 mg Vancomycin HCl 1,250 mg/ (Dextrose) 250 mls @ 166.667 mls/hr IVPB Q24H [facility] Last Admin: 08/31/19 17:11 Dose: 166.667 mls/hr Sodium Chloride (Normal Saline -) 1,000 mls @ 75 mls/hr IV ASDIR [facility] Last Admin: 08/31/19 21:20 Dose: 75 mls/hr Piperacillin Sod/Tazobactam (Sod 3.375 gm/ Dextrose) 50 mls @ 100 mls/hr IVPB Q8H-IV [facility]; Protocol Oxycodone HCl (Roxicodone -) 10 mg PO Q8H PRN PRN Reason: PAIN LEVEL 4 - 6 Last Admin: 09/01/19 01:19 Dose: 10 mg Pantoprazole Sodium (Protonix -) 40 mg PO DAILY [facility] Sotalol HCl (Betapace -) 80 mg PO BID [facility] Last Admin: 08/31/19 21:20 Dose: 80 mg - Objective Vital Signs: Vital Signs Temperature 98.0 F 09/01/19 07:38 Pulse Rate 94 H 09/01/19 07:38 Respiratory Rate 16 09/01/19 07:38 Blood Pressure 100/72 09/01/19 07:38 O2 Sat by Pulse Oximetry (%) 94 L 09/01/19 08:12 Cardiovascular: Yes: S1, S2 Respiratory: Yes: On Nasal O2, Rales, Rhonchi Gastrointestinal: Yes: Normal Bowel Sounds, Soft Labs: INR, PTT INR 1.20 (0.83-1.09) H 08/30/19 14:22 Problem List - Problems (1) Pneumonia Assessment/Plan: IV ABX ID CONSULT FOLLOW UP LABS Code(s): J18.9 - PNEUMONIA, UNSPECIFIED ORGANISM Qualifiers: Pneumonia type: due to unspecified organism Laterality: right Lung location: middle lobe of lung Qualified Code(s): J18.9 - Pneumonia, unspecified organism (2) Sepsis Assessment/Plan: ABOVE ICU MONITORING Microbiology 08/30/19 16:05 Urine - Urine Clean Catch Urine Culture - Final NO GROWTH OBTAINED 08/30/19 14:10 Blood - Peripheral Venous Blood Culture - Preliminary NO GROWTH OBTAINED AFTER 24 HOURS, INCUBATION TO CONTINUE FOR 4 DAYS. 08/30/19 14:22 Blood - Peripheral Venous Blood Culture - Preliminary NO GROWTH OBTAINED AFTER 24 HOURS, INCUBATION TO CONTINUE FOR 4 DAYS. 08/31/19 11:10 Sputum - Expectorated Gram Stain - Final 08/30/19 23:30 Urine For Antigen Detection Legionella Antigen - Final 08/30/19 23:30 Urine For Antigen Detection Streptococcus pneumoniae Antigen (M - Final Code(s): A41.9 - SEPSIS, UNSPECIFIED ORGANISM Qualifiers: Sepsis type: sepsis due to unspecified organism Sepsis acute organ dysfunction status: without acute organ dysfunction Qualified Code(s): A41.9 - Sepsis, unspecified organism (3) COPD (chronic obstructive pulmonary disease) Assessment/Plan: NEBS PULM ON CASE Code(s): J44.9 - CHRONIC OBSTRUCTIVE PULMONARY DISEASE, UNSPECIFIED Qualifiers: COPD type: unspecified COPD Qualified Code(s): J44.9 - Chronic obstructive pulmonary disease, unspecified (4) DVT (deep venous thrombosis) Assessment/Plan: ON AC Code(s): I82.409 - ACUTE EMBOLISM AND THOMBOS UNSP DEEP VN UNSP LOWER EXTREMITY Qualifiers: DVT location: upper extremity Affected thrombotic vein of extremity: other upper extremity vein Chronicity: acute Laterality: right Qualified Code(s) : I82.621 - Acute embolism and thrombosis of deep veins of right upper extremity (5) Squamous cell lung cancer Code(s): C34.90 - MALIGNANT NEOPLASM OF UNSP PART OF UNSP BRONCHUS OR LUNG
[2019-09-01 08:35] LABS: BASO % 0.3 % (0-2.0); EOS % 1.1 % (0-4.5); HEMATOCRIT 33.4 % (35.4-49); HEMOGLOBIN 10.9 GM/dL (11.7-16.9); LYMPH % 25.2 % (8-40); MCH 30.7 pg (25.7-33.7); MCHC 32.7 g/dl (32.0-35.9); MEAN CELL VOLUME 93.9 fl (80-96); MEAN PLT VOLUME 7.6 fl (7.5-11.1); MONO % 10.4 % (3.8-10.2); PLATELET COUNT 148 K/MM3 (134-434); RBC 3.56 M/mm3 (4.00-5.60); RDW 17.3 % (11.9-15.9); WHITE BLOOD COUNT 5.2 K/mm3 (4.0-10.0)
[2019-09-01 08:51] LABS: ALBUMIN 2.5 g/dl (3.4-5.0); BILIRUBIN,TOTAL 0.4 mg/dL (0.2-1); BLOOD UREA NITROGEN 8.6 mg/dL (7-18); CALCIUM 7.9 mg/dL (8.5-10.1); CREATININE 0.7 mg/dL (0.55-1.3); MAGNESIUM 2.1 mg/dL (1.8-2.4); PHOSPHOROUS 2.6 mg/dL (2.5-4.9); TOT PROT 5.6 g/dl (6.4-8.2)
[2019-09-01] MEDS ORDERED: PT OWN MED DRAWER 7, Y5N ONE ×4 (09:06→16:41)
[2019-09-01] MEDS: ENOXAPARIN NA (PORCINE) 100 MG/1 ML DISP.SYRIN SQ SCH ×2 (09:07→21:19)
[2019-09-01] MEDS: SOTALOL HCL 80 MG TABLET (FP) PO SCH ×2 (09:08→21:19)
[2019-09-01] MEDS: GABAPENTIN 300 MG CAPSULE PO SCH ×2 (09:08→21:19)
[2019-09-01] MEDS: PANTOPRAZOLE 40 MG TABLET PO SCH (09:08)
--- NOTE | 2019-09-01 11:49 | PN ---
Progress Note, Physician History of Present Illness: patient stable feeling much better - Current Medication List Current Medications: Active Medications Albuterol/Ipratropium (Duoneb -) 1 amp NEB RQID [facility] Last Admin: 09/01/19 11:31 Dose: 1 amp Diltiazem HCl (Cardizem Cd -) 120 mg PO DAILY [facility] Last Admin: 09/01/19 09:08 Dose: 120 mg Enoxaparin Sodium (Lovenox -) 90 mg SQ BID [facility] Last Admin: 09/01/19 09:07 Dose: 90 mg Gabapentin (Neurontin -) 300 mg PO BID [facility] Last Admin: 09/01/19 09:08 Dose: 300 mg Vancomycin HCl 1,250 mg/ (Dextrose) 250 mls @ 166.667 mls/hr IVPB Q24H [facility] Last Admin: 08/31/19 17:11 Dose: 166.667 mls/hr Sodium Chloride (Normal Saline -) 1,000 mls @ 75 mls/hr IV ASDIR [facility] Last Admin: 08/31/19 21:20 Dose: 75 mls/hr Piperacillin Sod/Tazobactam (Sod 3.375 gm/ Dextrose) 50 mls @ 100 mls/hr IVPB Q8H-IV [facility]; Protocol Piperacillin Sod/Tazobactam (Sod 3.375 gm/ Dextrose) 50 mls @ 100 mls/hr IVPB Q8H-IV [facility]; Protocol Oxycodone HCl (Roxicodone -) 10 mg PO Q8H PRN PRN Reason: PAIN LEVEL 4 - 6 Last Admin: 09/01/19 09:20 Dose: 10 mg Pantoprazole Sodium (Protonix -) 40 mg PO DAILY [facility] Last Admin: 09/01/19 09:08 Dose: 40 mg Sotalol HCl (Betapace -) 80 mg PO BID [facility] Last Admin: 09/01/19 09:08 Dose: 80 mg - Objective Vital Signs: Vital Signs Temperature 98.0 F 09/01/19 07:38 Pulse Rate 94 H 09/01/19 07:38 Respiratory Rate 16 09/01/19 07:38 Blood Pressure 100/72 09/01/19 07:38 O2 Sat by Pulse Oximetry (%) 94 L 09/01/19 08:12 Constitutional: Yes: No Distress, Calm Cardiovascular: Yes: S1, S2 Respiratory: Yes: Regular, On Nasal O2 Gastrointestinal: Yes: Normal Bowel Sounds, Soft Musculoskeletal: Yes: WNL Extremities: Yes: WNL Neurological: Yes: Alert, Oriented Labs: CBC, BMP 09/01/19 07:15 09/01/19 07:15 INR, PTT INR 1.20 (0.83-1.09) H 08/30/19 14:22 Assessment/Plan 64 y/o male with PMH of squamous cell carcinoma (currently receiving chemo therapy last session was July), HTN, HLD, COPD, afib, SVC syndrome s/p stent placement presents to the ED with complaints of fevers and productive cough over the last 3 days find to be in septic shock patient was given iv fluids and now on pressors still breathing not good htn hld lung ca afib svc syndrome septic shock pleural effusion plan continue vanco and zosyn resp support continue current mgmt close watch
[2019-09-01] MEDS ORDERED: DEXTROSE 5%-WATER - 50 ML IVPB ONE ×2 (11:56→16:44)
[2019-09-01] MEDS ORDERED: PIPERACILLIN/TAZOBACTAM 3.375 GM VIAL IVPB ONE ×2 (11:56→16:41)
[2019-09-01] MEDS: PIPERACILLIN/TAZOB 3.375 GM 3.375 GM in DEXTROSE 5%-WATER - 50 ML IVPB SCH ×2 (12:01→17:07)
--- NOTE | 2019-09-01 12:47 | EKG ---
Test Reason : Blood Pressure : / mmHG Vent. Rate : 114 BPM Atrial Rate : 114 BPM P-R Int : 170 ms QRS Dur : 066 ms QT Int : 322 ms P-R-T Axes : 047 -03 029 degrees QTc Int : 443 ms SINUS TACHYCARDIA OTHERWISE NORMAL ECG WHEN COMPARED WITH ECG OF 31-AUG-2019 14:21, NO SIGNIFICANT CHANGE WAS FOUND Confirmed by ISABELLA BUITRAGO MD ([id number]) on 09/01/2019 12:47:11 PM Referred By: Confirmed By:ISABELLA BUITRAGO MD
[2019-09-01] MEDS: SODIUM CHLORIDE 1,000 ML IV SCH (13:06)
--- NOTE | 2019-09-01 13:57 | PN ---
Progress Note (short form) - Note Progress Note: Patient seen and examined Significantly improved since last seen on day of admission in office. On antibiotics and was febrile , hypotensive with temp of 103.3 - with presumed diagnosis of sepsis and pneumonia Last Vital Signs Temp Pulse Resp BP Pulse Ox 98.0 F 94 H 16 100/72 96 09/01/19 07:38 09/01/19 07:38 09/01/19 07:38 09/01/19 07:38 09/01/19 09:00 HEENT: ROSARIO, EOM Intact Oropharynx: No thrush, No mucositis Cor: RSR, No murmurs, No gallops Lungs:diffuse rhonchi Abd: Soft, Normal bowel sounds, No organomegaly Ext:No significant edema Skin: No rashes, Integument intact CBC, BMP 09/01/19 07:15 09/01/19 07:15 Current Medications Generic Name Dose Route Start Last Admin Trade Name Freq PRN Reason Stop Dose Admin Albuterol/Ipratropium 1 amp 09/01/19 08:00 09/01/19 11:31 Duoneb - NEB 1 amp RQID [facility] Administration Diltiazem HCl 120 mg 09/01/19 10:00 09/01/19 09:08 Cardizem Cd - PO 120 mg DAILY [facility] Administration Enoxaparin Sodium 90 mg 08/31/19 22:00 09/01/19 09:07 Lovenox - SQ 90 mg BID [facility] Administration Gabapentin 300 mg 08/31/19 22:00 09/01/19 09:08 Neurontin - PO 300 mg BID [facility] Administration Vancomycin HCl 1,250 mg/ 250 mls @ 166.667 mls/hr 08/31/19 15:00 08/31/19 17: 11 Dextrose IVPB 166.667 mls/hr Q24H [facility] Administration Sodium Chloride 1,000 mls @ 75 mls/hr 08/31/19 18:15 09/01/19 13:06 Normal Saline - IV 75 mls/hr ASDIR [facility] Administration Piperacillin Sod/Tazobactam 50 mls @ 100 mls/hr 09/01/19 12:00 09/01/19 12:01 Sod 3.375 gm/ Dextrose IVPB 100 mls/hr Q8H-IV [facility] Administration Protocol Oxycodone HCl 10 mg 08/31/19 20:25 09/01/19 09:20 Roxicodone - PO 10 mg Q8H PRN Administration PAIN LEVEL 4 - 6 Pantoprazole Sodium 40 mg 09/01/19 10:00 09/01/19 09:08 Protonix - PO 40 mg DAILY [facility] Administration Sotalol HCl 80 mg 08/31/19 22:00 09/01/19 09:08 Betapace - PO 80 mg BID [facility] Administration Impression:: Sepsis- likely pneumonia SCC lung SVC stent S/P chemotherpy with gemcitibine last admministered in 07/10/2019. To continue with antibiotics per ID. MRI brain
--- NOTE | 2019-09-01 14:56 | PN ---
Progress Note, Physician History of Present Illness: PULMONARY ALERT,COMFORTABLE,-RESP DISTRESS - Current Medication List Current Medications: Active Medications Albuterol/Ipratropium (Duoneb -) 1 amp NEB RQID [facility] Last Admin: 09/01/19 11:31 Dose: 1 amp Diltiazem HCl (Cardizem Cd -) 120 mg PO DAILY [facility] Last Admin: 09/01/19 09:08 Dose: 120 mg Enoxaparin Sodium (Lovenox -) 90 mg SQ BID [facility] Last Admin: 09/01/19 09:07 Dose: 90 mg Gabapentin (Neurontin -) 300 mg PO BID [facility] Last Admin: 09/01/19 09:08 Dose: 300 mg Vancomycin HCl 1,250 mg/ (Dextrose) 250 mls @ 166.667 mls/hr IVPB Q24H [facility] Last Admin: 08/31/19 17:11 Dose: 166.667 mls/hr Sodium Chloride (Normal Saline -) 1,000 mls @ 75 mls/hr IV ASDIR [facility] Last Admin: 09/01/19 13:06 Dose: 75 mls/hr Piperacillin Sod/Tazobactam (Sod 3.375 gm/ Dextrose) 50 mls @ 100 mls/hr IVPB Q8H-IV [facility]; Protocol Last Admin: 09/01/19 12:01 Dose: 100 mls/hr Oxycodone HCl (Roxicodone -) 10 mg PO Q8H PRN PRN Reason: PAIN LEVEL 4 - 6 Last Admin: 09/01/19 09:20 Dose: 10 mg Pantoprazole Sodium (Protonix -) 40 mg PO DAILY [facility] Last Admin: 09/01/19 09:08 Dose: 40 mg Sotalol HCl (Betapace -) 80 mg PO BID [facility] Last Admin: 09/01/19 09:08 Dose: 80 mg - Objective Vital Signs: Vital Signs Temperature 98 F 09/01/19 14:49 Pulse Rate 101 H 09/01/19 14:49 Respiratory Rate 18 09/01/19 14:49 Blood Pressure 96/66 09/01/19 14:49 O2 Sat by Pulse Oximetry (%) 96 09/01/19 09:00 Constitutional: Yes: Well Nourished, Calm Eyes: Yes: WNL HENT: Yes: WNL Neck: Yes: WNL Cardiovascular: Yes: Pulse Irregular, S1, S2 Respiratory: Yes: Rhonchi (FEW RHONCHI) Gastrointestinal: Yes: Normal Bowel Sounds, Soft Extremities: Yes: WNL Edema: No Labs: CBC, BMP 09/01/19 07:15 09/01/19 07:15 INR, PTT INR 1.20 (0.83-1.09) H 08/30/19 14:22 Assessment/Plan Problem List - Problems (1) Severe sepsis Code(s): A41.9 - SEPSIS, UNSPECIFIED ORGANISM; R65.20 - SEVERE SEPSIS WITHOUT SEPTIC SHOCK (2) Afib Code(s): I48.91 - UNSPECIFIED ATRIAL FIBRILLATION (3) COPD (chronic obstructive pulmonary disease) Code(s): J44.9 - CHRONIC OBSTRUCTIVE PULMONARY DISEASE, UNSPECIFIED Qualifiers: COPD type: unspecified COPD Qualified Code(s): J44.9 - Chronic obstructive pulmonary disease, unspecified ASSESSMENT/PLAN: Resolved Septic Shock: suspected source: PNA Squamous cell carcinoma HTN HLD COPD AFib SVC syndrome S/P SVC placement ABX per ID IVF Strict I & O BD TX Monitor off systemic steroids AC with Lovenex DR ABRAMS
[2019-09-01] MEDS: VANCOMYCIN HCL 1,250 MG in DEXTROSE 5%-WATER - 250 ML IVPB SCH (17:18)
[2019-09-02] MEDS ORDERED: DEXTROSE 5%-WATER - 50 ML IVPB ONE ×3 (01:31→17:37)
[2019-09-02] MEDS ORDERED: PIPERACILLIN/TAZOBACTAM 3.375 GM VIAL IVPB ONE ×3 (01:31→17:36)
[2019-09-02] MEDS: PIPERACILLIN/TAZOB 3.375 GM 3.375 GM in DEXTROSE 5%-WATER - 50 ML IVPB SCH ×3 (01:48→17:41)
[2019-09-02] MEDS: oxyCODONE HCL 5 MG TABLET PO PRN ×3 (03:05→19:14)
[2019-09-02] MEDS: SODIUM CHLORIDE 1,000 ML IV SCH ×3 (06:22→22:05)
[2019-09-02] MEDS: ALBUTEROL SO4 2.5/IPRATROPIUM 0.5 INH SOL 3 ML VIAL.NEB. NEB SCH ×4 (07:35→19:44)
--- NOTE | 2019-09-02 09:11 | PN ---
Progress Note, Physician Chief Complaint: Sepsis Pleural Effusion Lung CA History of Present Illness: Previous notes and events reviewed awake and alert NAD complains of productive cough with green phlegm complains of pleuritic pain with coughing denies chest pain or palpitations Chest CT scan results reviewed - Current Medication List Current Medications: Active Medications Albuterol/Ipratropium (Duoneb -) 1 amp NEB RQID [facility] Last Admin: 09/02/19 07:35 Dose: 1 amp Diltiazem HCl (Cardizem Cd -) 120 mg PO DAILY [facility] Last Admin: 09/01/19 09:08 Dose: 120 mg Enoxaparin Sodium (Lovenox -) 90 mg SQ BID [facility] Last Admin: 09/01/19 21:19 Dose: 90 mg Gabapentin (Neurontin -) 300 mg PO BID [facility] Last Admin: 09/01/19 21:19 Dose: 300 mg Vancomycin HCl 1,250 mg/ (Dextrose) 250 mls @ 166.667 mls/hr IVPB Q24H [facility] Last Admin: 09/01/19 17:18 Dose: 166.667 mls/hr Sodium Chloride (Normal Saline -) 1,000 mls @ 75 mls/hr IV ASDIR [facility] Last Admin: 09/02/19 06:22 Dose: 75 mls/hr Piperacillin Sod/Tazobactam (Sod 3.375 gm/ Dextrose) 50 mls @ 100 mls/hr IVPB Q8H-IV [facility]; Protocol Last Admin: 09/02/19 01:48 Dose: 100 mls/hr Oxycodone HCl (Roxicodone -) 10 mg PO Q8H PRN PRN Reason: PAIN LEVEL 4 - 6 Last Admin: 09/02/19 03:05 Dose: 10 mg Pantoprazole Sodium (Protonix -) 40 mg PO DAILY [facility] Last Admin: 09/01/19 09:08 Dose: 40 mg Sotalol HCl (Betapace -) 80 mg PO BID [facility] Last Admin: 09/01/19 21:19 Dose: 80 mg - Objective Vital Signs: Vital Signs Temperature 99.4 F 09/02/19 07:09 Pulse Rate 96 H 09/02/19 07:09 Respiratory Rate 18 09/02/19 07:09 Blood Pressure 105/68 09/02/19 07:09 O2 Sat by Pulse Oximetry (%) 96 09/01/19 21:00 Constitutional: Yes: No Distress, Calm Eyes: Yes: Conjunctiva Clear HENT: Yes: Atraumatic Cardiovascular: Yes: Regular Rate and Rhythm Respiratory: Yes: Regular, Cough, Diminished, On Nasal O2 Gastrointestinal: Yes: Normal Bowel Sounds, Soft Musculoskeletal: Yes: Muscle Weakness Extremities: Yes: WNL Edema: No Neurological: Yes: Alert, Oriented Psychiatric: Yes: Alert, Oriented Labs: CBC, BMP 09/01/19 07:15 09/01/19 07:15 INR, PTT INR 1.20 (0.83-1.09) H 08/30/19 14:22 Microbiology 08/30/19 14:10 Blood - Peripheral Venous Blood Culture - Preliminary NO GROWTH OBTAINED AFTER 48 HOURS, INCUBATION TO CONTINUE FOR 3 DAYS. 08/30/19 14:22 Blood - Peripheral Venous Blood Culture - Preliminary NO GROWTH OBTAINED AFTER 48 HOURS, INCUBATION TO CONTINUE FOR 3 DAYS. 08/31/19 11:10 Sputum - Expectorated Gram Stain - Final 08/31/19 11:10 Sputum - Expectorated Sputum Culture - Preliminary NORMAL RESPIRATORY NICKI 08/30/19 16:05 Urine - Urine Clean Catch Urine Culture - Final NO GROWTH OBTAINED 08/30/19 23:30 Urine For Antigen Detection Legionella Antigen - Final 08/30/19 23:30 Urine For Antigen Detection Streptococcus pneumoniae Antigen (M - Final Problem List - Problems (1) Severe sepsis Assessment/Plan: ID on board no leukocytosis low grade fever this AM Vancomycin, Zosyn BC neg UC neg Sputum culture neg Urine Legionella neg CXR shows R effusion with R infiltrate, R vascular stent Chest CT scan shows partially loculated R pleural effusion which currently appears moderate, R hilar/perihilar mass lesion noted with at least partial occlusionof RUL and lower lobe bronchi, RUL interstitial thickening on basis of lymphangitic neoplastic disease, interval development RLL opacity probably on basis atelectasis, interval enlargement of several small left upper lobe and LLL pulmonary nodules LA 2.0 Code(s): A41.9 - SEPSIS, UNSPECIFIED ORGANISM; R65.20 - SEVERE SEPSIS WITHOUT SEPTIC SHOCK (2) Acute kidney injury Assessment/Plan: resolved BUN/Cr 8.6/0.7 monitor renal function daily Code(s): N17.9 - ACUTE KIDNEY FAILURE, UNSPECIFIED (3) Afib Assessment/Plan: Enoxaparin BID Cardizem for rate control Code(s): I48.91 - UNSPECIFIED ATRIAL FIBRILLATION (4) Anemia Assessment/Plan: Hg 10.9 monitor Hg daily transfuse for Hg <7.0 to avoid fluid overload Code(s): D64.9 - ANEMIA, UNSPECIFIED Qualifiers: Anemia type: unspecified type Qualified Code(s): D64.9 - Anemia, unspecified (5) COPD (chronic obstructive pulmonary disease) Assessment/Plan: Pulmonary on board keep SpO2 >90% O2 via NC bronchodilators Code(s): J44.9 - CHRONIC OBSTRUCTIVE PULMONARY DISEASE, UNSPECIFIED Qualifiers: COPD type: unspecified COPD Qualified Code(s): J44.9 - Chronic obstructive pulmonary disease, unspecified (6) DVT (deep venous thrombosis) Assessment/Plan: Enoxaparin Code(s): I82.409 - ACUTE EMBOLISM AND THOMBOS UNSP DEEP VN UNSP LOWER EXTREMITY Qualifiers: DVT location: upper extremity Affected thrombotic vein of extremity: other upper extremity vein Chronicity: acute Laterality: right Qualified Code(s) : I82.621 - Acute embolism and thrombosis of deep veins of right upper extremity (7) HTN (hypertension) Assessment/Plan: Cardizem, Sotalol low Na diet Code(s): I10 - ESSENTIAL (PRIMARY) HYPERTENSION Qualifiers: Hypertension type: essential hypertension Qualified Code(s): I10 - Essential (primary) hypertension (8) Lactic acidosis Assessment/Plan: LA 2.0 Code(s): E87.2 - ACIDOSIS (9) Lung cancer Assessment/Plan: Oncology on board Chest CT scan shows partially loculated R pleural effusion which currently appears moderate, R hilar/perihilar mass lesion noted with at least partial occlusionof RUL and lower lobe bronchi, RUL interstitial thickening on basis of lymphangitic neoplastic disease, interval development RLL opacity probably on basis atelectasis, interval enlargement of several small left upper lobe and LLL pulmonary nodules Code(s): C34.90 - MALIGNANT NEOPLASM OF UNSP PART OF UNSP BRONCHUS OR LUNG Qualifiers: Laterality: right Lung location: upper lobe of lung Qualified Code(s): C34.11 - Malignant neoplasm of upper lobe, right bronchus or lung Assessment/Plan see problem list dvt ppx
[2019-09-02] MEDS ORDERED: PT OWN MED DRAWER 7, Y5N ONE ×5 (09:12→21:23)
[2019-09-02] MEDS: ENOXAPARIN NA (PORCINE) 100 MG/1 ML DISP.SYRIN SQ SCH ×2 (09:22→21:24)
[2019-09-02] MEDS: GABAPENTIN 300 MG CAPSULE PO SCH ×2 (09:22→21:24)
[2019-09-02] MEDS: PANTOPRAZOLE 40 MG TABLET PO SCH (09:22)
[2019-09-02] MEDS: SOTALOL HCL 80 MG TABLET (FP) PO SCH ×2 (09:23→21:25)
--- NOTE | 2019-09-02 12:24 | PN ---
Progress Note (short form) - Note Progress Note: Some congested cough with yellow/green phlegm. No hemoptysis. CT Chest reviewed: loculated right effusion with mets Intake & Output 08/30/19 08/31/19 09/01/19 09/02/19 23:59 23:59 23:59 23:59 Intake Total 3100.5 670 2225 1100 Output Total 670 005 9812 150 Balance 2750.5 70 1125 950 Weight 192 lb 195 lb 193 lb 6 oz Last Vital Signs Temp Pulse Resp BP Pulse Ox 99.4 F 96 H 18 105/68 96 09/02/19 07:09 09/02/19 07:09 09/02/19 07:09 09/02/19 07:09 09/01/19 21:00 Active Medications Albuterol/Ipratropium (Duoneb -) 1 amp NEB RQID [facility] Last Admin: 09/02/19 11:30 Dose: 1 amp Diltiazem HCl (Cardizem Cd -) 120 mg PO DAILY [facility] Last Admin: 09/02/19 09:23 Dose: 120 mg Enoxaparin Sodium (Lovenox -) 90 mg SQ BID [facility] Last Admin: 09/02/19 09:22 Dose: 90 mg Gabapentin (Neurontin -) 300 mg PO BID [facility] Last Admin: 09/02/19 09:22 Dose: 300 mg Vancomycin HCl 1,250 mg/ (Dextrose) 250 mls @ 166.667 mls/hr IVPB Q24H [facility] Last Admin: 09/01/19 17:18 Dose: 166.667 mls/hr Sodium Chloride (Normal Saline -) 1,000 mls @ 75 mls/hr IV [facility] Last Admin: 09/02/19 06:22 Dose: 75 mls/hr Piperacillin Sod/Tazobactam (Sod 3.375 gm/ Dextrose) 50 mls @ 100 mls/hr IVPB Q8H-IV [facility]; Protocol Last Admin: 09/02/19 09:22 Dose: 100 mls/hr Oxycodone HCl (Roxicodone -) 10 mg PO Q8H PRN PRN Reason: PAIN LEVEL 4 - 6 Last Admin: 09/02/19 11:12 Dose: 10 mg Pantoprazole Sodium (Protonix -) 40 mg PO DAILY [facility] Last Admin: 09/02/19 09:22 Dose: 40 mg Sotalol HCl (Betapace -) 80 mg PO BID [facility] Last Admin: 09/02/19 09:23 Dose: 80 mg Constitutional: Yes: NAD Eyes: Yes: WNL HENT: Yes: WNL Neck: Yes: WNL Cardiovascular: Yes: Pulse Irregular, S1, S2 Respiratory: Yes: Scattered rhonchi, no wheeze, diminished on the right Gastrointestinal: Yes: Normal Bowel Sounds, Soft Extremities: Yes: WNL Edema: No Labs: Assessment/Plan Problem List - Problems (1) Severe sepsis Code(s): A41.9 - SEPSIS, UNSPECIFIED ORGANISM; R65.20 - SEVERE SEPSIS WITHOUT SEPTIC SHOCK (2) Afib Code(s): I48.91 - UNSPECIFIED ATRIAL FIBRILLATION (3) COPD (chronic obstructive pulmonary disease) Code(s): J44.9 - CHRONIC OBSTRUCTIVE PULMONARY DISEASE, UNSPECIFIED Qualifiers: COPD type: unspecified COPD Qualified Code(s): J44.9 - Chronic obstructive pulmonary disease, unspecified ASSESSMENT/PLAN: Resolved Septic Shock: suspected source: PNA Squamous cell carcinoma HTN HLD COPD AFib SVC syndrome S/P SVC stent placement ABX per ID IVF BD TX Monitor off systemic steroids Hold on Thoracentesis or intervention at this point [facility]
--- NOTE | 2019-09-02 14:01 | PN ---
Progress Note, Physician History of Present Illness: Denies pain, SOB - Current Medication List Current Medications: Active Medications Albuterol/Ipratropium (Duoneb -) 1 amp NEB RQID [facility] Last Admin: 09/02/19 11:30 Dose: 1 amp Diltiazem HCl (Cardizem Cd -) 120 mg PO DAILY [facility] Last Admin: 09/02/19 09:23 Dose: 120 mg Enoxaparin Sodium (Lovenox -) 90 mg SQ BID [facility] Last Admin: 09/02/19 09:22 Dose: 90 mg Gabapentin (Neurontin -) 300 mg PO BID [facility] Last Admin: 09/02/19 09:22 Dose: 300 mg Vancomycin HCl 1,250 mg/ (Dextrose) 250 mls @ 166.667 mls/hr IVPB Q24H [facility] Last Admin: 09/01/19 17:18 Dose: 166.667 mls/hr Sodium Chloride (Normal Saline -) 1,000 mls @ 75 mls/hr IV ASDIR [facility] Last Admin: 09/02/19 06:22 Dose: 75 mls/hr Piperacillin Sod/Tazobactam (Sod 3.375 gm/ Dextrose) 50 mls @ 100 mls/hr IVPB Q8H-IV [facility]; Protocol Last Admin: 09/02/19 09:22 Dose: 100 mls/hr Oxycodone HCl (Roxicodone -) 10 mg PO Q8H PRN PRN Reason: PAIN LEVEL 4 - 6 Last Admin: 09/02/19 11:12 Dose: 10 mg Pantoprazole Sodium (Protonix -) 40 mg PO DAILY [facility] Last Admin: 09/02/19 09:22 Dose: 40 mg Sotalol HCl (Betapace -) 80 mg PO BID [facility] Last Admin: 09/02/19 09:23 Dose: 80 mg - Objective Vital Signs: Vital Signs Temperature 99.4 F 09/02/19 07:09 Pulse Rate 96 H 09/02/19 07:09 Respiratory Rate 18 09/02/19 07:09 Blood Pressure 105/68 09/02/19 07:09 O2 Sat by Pulse Oximetry (%) 96 09/01/19 21:00 Constitutional: Yes: No Distress, Calm Eyes: Yes: Conjunctiva Clear Cardiovascular: Yes: Regular Rate and Rhythm Respiratory: Yes: Regular, CTA Bilaterally Gastrointestinal: Yes: Soft, Palpable Mass. No: Distention Edema: No Labs: CBC, BMP 09/01/19 07:15 09/01/19 07:15 INR, PTT INR 1.20 (0.83-1.09) H 08/30/19 14:22 Assessment/Plan 64M with squamous cell carcinoma of RUL (PDL1 0%), SVC syndrome s/p stenting, COPD who presented admitted with PNA and parapneumonic effusio. On Abx. Clinically improving. Pt was previously treated with RT, Taxol and Carboplatin early of 2018 and was transitioned to Gemcitabine in 02/2019 due to increased tumor size (completed C6D15 on 07/10/2019). CBC stable. MRI brain pending
[2019-09-02] MEDS: VANCOMYCIN HCL 1,250 MG in DEXTROSE 5%-WATER - 250 ML IVPB SCH (14:36)
--- NOTE | 2019-09-02 16:28 | PN ---
Progress Note, Physician History of Present Illness: Pt is afebrile, without acute distress. States he is starting to feel better. Tmax 99.4F - Current Medication List Current Medications: Active Medications Albuterol/Ipratropium (Duoneb -) 1 amp NEB RQID [facility] Last Admin: 09/02/19 11:30 Dose: 1 amp Diltiazem HCl (Cardizem Cd -) 120 mg PO DAILY [facility] Last Admin: 09/02/19 09:23 Dose: 120 mg Enoxaparin Sodium (Lovenox -) 90 mg SQ BID [facility] Last Admin: 09/02/19 09:22 Dose: 90 mg Gabapentin (Neurontin -) 300 mg PO BID [facility] Last Admin: 09/02/19 09:22 Dose: 300 mg Vancomycin HCl 1,250 mg/ (Dextrose) 250 mls @ 166.667 mls/hr IVPB Q24H [facility] Last Admin: 09/02/19 14:36 Dose: 166.667 mls/hr Sodium Chloride (Normal Saline -) 1,000 mls @ 75 mls/hr IV ASDIR [facility] Last Admin: 09/02/19 06:22 Dose: 75 mls/hr Piperacillin Sod/Tazobactam (Sod 3.375 gm/ Dextrose) 50 mls @ 100 mls/hr IVPB Q8H-IV [facility]; Protocol Last Admin: 09/02/19 09:22 Dose: 100 mls/hr Oxycodone HCl (Roxicodone -) 10 mg PO Q8H PRN PRN Reason: PAIN LEVEL 4 - 6 Last Admin: 09/02/19 11:12 Dose: 10 mg Pantoprazole Sodium (Protonix -) 40 mg PO DAILY [facility] Last Admin: 09/02/19 09:22 Dose: 40 mg Sotalol HCl (Betapace -) 80 mg PO BID [facility] Last Admin: 09/02/19 09:23 Dose: 80 mg - Objective Vital Signs: Vital Signs Temperature 98.9 F 09/02/19 14:46 Pulse Rate 90 09/02/19 14:46 Respiratory Rate 18 09/02/19 14:46 Blood Pressure 110/70 09/02/19 14:46 O2 Sat by Pulse Oximetry (%) 96 09/02/19 09:00 Constitutional: Yes: No Distress, Calm Cardiovascular: Yes: Regular Rate and Rhythm Respiratory: Yes: CTA Bilaterally Gastrointestinal: Yes: Normal Bowel Sounds, Soft Genitourinary: Yes: WNL Integumentary: Yes: WNL Neurological: Yes: Alert Labs: CBC, BMP 09/01/19 07:15 09/01/19 07:15 INR, PTT INR 1.20 (0.83-1.09) H 08/30/19 14:22 - ....Imaging Chest X-ray: Report Reviewed Problem List - Problems (1) Severe sepsis Code(s): A41.9 - SEPSIS, UNSPECIFIED ORGANISM; R65.20 - SEVERE SEPSIS WITHOUT SEPTIC SHOCK (2) Acute respiratory failure Code(s): J96.00 - ACUTE RESPIRATORY FAILURE, UNSP W HYPOXIA OR HYPERCAPNIA Qualifiers: Respiratory failure complication: hypoxia Qualified Code(s): J96.01 - Acute respiratory failure with hypoxia (3) Afib Code(s): I48.91 - UNSPECIFIED ATRIAL FIBRILLATION (4) Anemia Code(s): D64.9 - ANEMIA, UNSPECIFIED Qualifiers: Anemia type: unspecified type Qualified Code(s): D64.9 - Anemia, unspecified (5) COPD (chronic obstructive pulmonary disease) Code(s): J44.9 - CHRONIC OBSTRUCTIVE PULMONARY DISEASE, UNSPECIFIED Qualifiers: COPD type: unspecified COPD Qualified Code(s): J44.9 - Chronic obstructive pulmonary disease, unspecified (6) HTN (hypertension) Code(s): I10 - ESSENTIAL (PRIMARY) HYPERTENSION Qualifiers: Hypertension type: essential hypertension Qualified Code(s): I10 - Essential (primary) hypertension (7) Leukocytosis Code(s): D72.829 - ELEVATED WHITE BLOOD CELL COUNT, UNSPECIFIED (8) Lung cancer Code(s): C34.90 - MALIGNANT NEOPLASM OF UNSP PART OF UNSP BRONCHUS OR LUNG Qualifiers: Laterality: right Lung location: upper lobe of lung Qualified Code(s): C34.11 - Malignant neoplasm of upper lobe, right bronchus or lung (9) Pneumonia Code(s): J18.9 - PNEUMONIA, UNSPECIFIED ORGANISM Qualifiers: Pneumonia type: due to unspecified organism Laterality: right Lung location: middle lobe of lung Qualified Code(s): J18.9 - Pneumonia, unspecified organism (10) SVC syndrome Code(s): I87.1 - COMPRESSION OF VEIN Assessment/Plan Septic Shock/PNA Acute respiratory failure Lung CA AFIB COPD/Chronic respiratory failure SVC syndrome -- Pt appears to be clinically improving -- sputum culture results pending - so far +staph/gram neg -- continue Zosyn/Vancomycin -- Vancomycin trough level ordered for tomorrow, monitor renal function --wbc normal, less SOB, afebrile -- on O2, BD -- Pulmonary following continue monitor
[2019-09-02] MEDS: ACETAMINOPHEN 325 MG TABLET (FP) PO PRN (20:48)
[2019-09-03] MEDS ORDERED: DEXTROSE 5%-WATER - 50 ML IVPB ONE ×3 (01:53→17:00)
[2019-09-03] MEDS ORDERED: PIPERACILLIN/TAZOBACTAM 3.375 GM VIAL IVPB ONE ×3 (01:53→17:00)
[2019-09-03] MEDS: PIPERACILLIN/TAZOB 3.375 GM 3.375 GM in DEXTROSE 5%-WATER - 50 ML IVPB SCH ×3 (01:57→17:50)
[2019-09-03] MEDS: oxyCODONE HCL 5 MG TABLET PO PRN ×3 (03:41→20:08)
[2019-09-03] MEDS: ALBUTEROL SO4 2.5/IPRATROPIUM 0.5 INH SOL 3 ML VIAL.NEB. NEB SCH ×4 (08:35→20:15)
[2019-09-03 09:16] LABS: HEMATOCRIT 33.1 % (35.4-49); HEMOGLOBIN 10.9 GM/dL (11.7-16.9); MCH 31.1 pg (25.7-33.7); MEAN PLT VOLUME 7.7 fl (7.5-11.1); PLATELET COUNT 177 K/MM3 (134-434); RBC 3.52 M/mm3 (4.00-5.60); RDW 17.5 % (11.9-15.9); WHITE BLOOD COUNT 4.5 K/mm3 (4.0-10.0)
[2019-09-03] MEDS ORDERED: PT OWN MED DRAWER 7, Y5N ONE ×3 (09:21→21:23)
[2019-09-03] MEDS: PANTOPRAZOLE 40 MG TABLET PO SCH (09:42)
[2019-09-03] MEDS: SOTALOL HCL 80 MG TABLET (FP) PO SCH ×2 (09:42→21:25)
[2019-09-03] MEDS: GABAPENTIN 300 MG CAPSULE PO SCH ×2 (09:43→21:25)
[2019-09-03] MEDS: ENOXAPARIN NA (PORCINE) 100 MG/1 ML DISP.SYRIN SQ SCH ×2 (09:44→21:25)
[2019-09-03 09:46] LABS: ALBUMIN 2.5 g/dl (3.4-5.0); BILIRUBIN,TOTAL 0.4 mg/dL (0.2-1); BLOOD UREA NITROGEN 4.1 mg/dL (7-18); CALCIUM 7.8 mg/dL (8.5-10.1); CREATININE 0.7 mg/dL (0.55-1.3); POTASSIUM 3.7 mmol/L (3.5-5.1); TOT PROT 5.9 g/dl (6.4-8.2)
--- NOTE | 2019-09-03 10:16 | PN ---
Progress Note, Physician Chief Complaint: Sepsis Pleural Effusion Lung CA History of Present Illness: Previous notes and events reviewed awake and alert NAD complains of productive cough with green phlegm denies chest pain or palpitations no leukocytosis afebrile sputum culture prelim positive - Current Medication List Current Medications: Active Medications Acetaminophen (Tylenol -) 650 mg PO Q6H PRN PRN Reason: FEVER Last Admin: 09/02/19 20:48 Dose: 650 mg Albuterol/Ipratropium (Duoneb -) 1 amp NEB RQID [facility] Last Admin: 09/03/19 08:35 Dose: 1 amp Diltiazem HCl (Cardizem Cd -) 120 mg PO DAILY [facility] Last Admin: 09/03/19 09:42 Dose: 120 mg Enoxaparin Sodium (Lovenox -) 90 mg SQ BID [facility] Last Admin: 09/03/19 09:44 Dose: 90 mg Gabapentin (Neurontin -) 300 mg PO BID [facility] Last Admin: 09/03/19 09:43 Dose: 300 mg Vancomycin HCl 1,250 mg/ (Dextrose) 250 mls @ 166.667 mls/hr IVPB Q24H [facility] Last Admin: 09/02/19 14:36 Dose: 166.667 mls/hr Sodium Chloride (Normal Saline -) 1,000 mls @ 75 mls/hr IV ASDIR [facility] Last Admin: 09/02/19 22:05 Dose: 75 mls/hr Piperacillin Sod/Tazobactam (Sod 3.375 gm/ Dextrose) 50 mls @ 100 mls/hr IVPB Q8H-IV [facility]; Protocol Last Admin: 09/03/19 09:43 Dose: 100 mls/hr Oxycodone HCl (Roxicodone -) 10 mg PO Q8H PRN PRN Reason: PAIN LEVEL 4 - 6 Last Admin: 09/03/19 03:41 Dose: 10 mg Pantoprazole Sodium (Protonix -) 40 mg PO DAILY [facility] Last Admin: 09/03/19 09:42 Dose: 40 mg Sotalol HCl (Betapace -) 80 mg PO BID [facility] Last Admin: 09/03/19 09:42 Dose: 80 mg - Objective Vital Signs: Vital Signs Temperature 98.6 F 09/03/19 07:00 Pulse Rate 105 H 09/03/19 07:00 Respiratory Rate 20 09/03/19 07:00 Blood Pressure 112/74 09/03/19 07:00 O2 Sat by Pulse Oximetry (%) 95 09/02/19 21:00 Constitutional: Yes: No Distress, Calm Eyes: Yes: Conjunctiva Clear HENT: Yes: Atraumatic Cardiovascular: Yes: Regular Rate and Rhythm Respiratory: Yes: Regular, Cough, On Nasal O2, Rhonchi, SOB Gastrointestinal: Yes: Normal Bowel Sounds, Soft, Tenderness (luq) Musculoskeletal: Yes: Muscle Weakness Extremities: Yes: WNL Edema: No Neurological: Yes: Alert, Oriented Psychiatric: Yes: Alert, Oriented Labs: CBC, BMP 09/03/19 07:35 09/03/19 07:35 INR, PTT INR 1.20 (0.83-1.09) H 08/30/19 14:22 Microbiology 08/30/19 14:10 Blood - Peripheral Venous Blood Culture - Preliminary NO GROWTH OBTAINED AFTER 72 HOURS, INCUBATION TO CONTINUE FOR 2 DAYS. 08/30/19 14:22 Blood - Peripheral Venous Blood Culture - Preliminary NO GROWTH OBTAINED AFTER 72 HOURS, INCUBATION TO CONTINUE FOR 2 DAYS. 08/31/19 11:10 Sputum - Expectorated Gram Stain - Final 08/31/19 11:10 Sputum - Expectorated Sputum Culture - Preliminary Lactose Fermenting Neg Bacilli Staphylococcus Latex Coag Pos 08/30/19 16:05 Urine - Urine Clean Catch Urine Culture - Final NO GROWTH OBTAINED 08/30/19 23:30 Urine For Antigen Detection Legionella Antigen - Final 08/30/19 23:30 Urine For Antigen Detection Streptococcus pneumoniae Antigen (M - Final Problem List - Problems (1) Severe sepsis Assessment/Plan: ID on board no leukocytosis Vancomycin, Zosyn BC neg UC neg Sputum culture prelim positive Urine Legionella neg CXR shows R effusion with R infiltrate, R vascular stent Chest CT scan shows partially loculated R pleural effusion which currently appears moderate, R hilar/perihilar mass lesion noted with at least partial occlusionof RUL and lower lobe bronchi, RUL interstitial thickening on basis of lymphangitic neoplastic disease, interval development RLL opacity probably on basis atelectasis, interval enlargement of several small left upper lobe and LLL pulmonary nodules LA 2.0 Code(s): A41.9 - SEPSIS, UNSPECIFIED ORGANISM; R65.20 - SEVERE SEPSIS WITHOUT SEPTIC SHOCK (2) Acute kidney injury Assessment/Plan: resolved BUN/Cr 4.1/0.7 monitor renal function daily Code(s): N17.9 - ACUTE KIDNEY FAILURE, UNSPECIFIED (3) Afib Assessment/Plan: Enoxaparin BID Cardizem for rate control Code(s): I48.91 - UNSPECIFIED ATRIAL FIBRILLATION (4) Anemia Assessment/Plan: Hg 10.9 monitor Hg daily transfuse for Hg <7.0 to avoid fluid overload anemia profile Code(s): D64.9 - ANEMIA, UNSPECIFIED Qualifiers: Anemia type: unspecified type Qualified Code(s): D64.9 - Anemia, unspecified (5) COPD (chronic obstructive pulmonary disease) Assessment/Plan: Pulmonary on board keep SpO2 >90% O2 via NC bronchodilators Code(s): J44.9 - CHRONIC OBSTRUCTIVE PULMONARY DISEASE, UNSPECIFIED Qualifiers: COPD type: unspecified COPD Qualified Code(s): J44.9 - Chronic obstructive pulmonary disease, unspecified (6) DVT (deep venous thrombosis) Assessment/Plan: Enoxaparin Code(s): I82.409 - ACUTE EMBOLISM AND THOMBOS UNSP DEEP VN UNSP LOWER EXTREMITY Qualifiers: DVT location: upper extremity Affected thrombotic vein of extremity: other upper extremity vein Chronicity: acute Laterality: right Qualified Code(s) : I82.621 - Acute embolism and thrombosis of deep veins of right upper extremity (7) HTN (hypertension) Assessment/Plan: Cardizem, Sotalol low Na diet Code(s): I10 - ESSENTIAL (PRIMARY) HYPERTENSION Qualifiers: Hypertension type: essential hypertension Qualified Code(s): I10 - Essential (primary) hypertension (8) Lactic acidosis Assessment/Plan: LA 2.0 Code(s): E87.2 - ACIDOSIS (9) Lung cancer Assessment/Plan: Oncology on board Chest CT scan shows partially loculated R pleural effusion which currently appears moderate, R hilar/perihilar mass lesion noted with at least partial occlusionof RUL and lower lobe bronchi, RUL interstitial thickening on basis of lymphangitic neoplastic disease, interval development RLL opacity probably on basis atelectasis, interval enlargement of several small left upper lobe and LLL pulmonary nodules pending Brain MRI Code(s): C34.90 - MALIGNANT NEOPLASM OF UNSP PART OF UNSP BRONCHUS OR LUNG Qualifiers: Laterality: right Lung location: upper lobe of lung Qualified Code(s): C34.11 - Malignant neoplasm of upper lobe, right bronchus or lung Assessment/Plan see problem list dvt ppx
[2019-09-03] MEDS: SODIUM CHLORIDE 1,000 ML IV SCH ×2 (11:46→12:04)
--- NOTE | 2019-09-03 12:32 | PN ---
Progress Note (short form) - Note Progress Note: Breathing feels better today. Less congested cough. No hemoptysis. Intake & Output 08/31/19 09/01/19 09/02/19 09/03/19 23:59 23:59 23:59 23:59 Intake Total 670 2225 2820 920 Output Total 600 1100 450 100 Balance 70 1125 2370 820 Weight 195 lb 193 lb 6 oz 189 lb 3 oz Last Vital Signs Temp Pulse Resp BP Pulse Ox 98.6 F 105 H 20 112/74 95 09/03/19 07:00 09/03/19 07:00 09/03/19 07:00 09/03/19 07:00 09/02/19 21:00 Active Medications Acetaminophen (Tylenol -) 650 mg PO Q6H PRN PRN Reason: FEVER Last Admin: 09/02/19 20:48 Dose: 650 mg Albuterol/Ipratropium (Duoneb -) 1 amp NEB RQID [facility] Last Admin: 09/03/19 08:35 Dose: 1 amp Diltiazem HCl (Cardizem Cd -) 120 mg PO DAILY [facility] Last Admin: 09/03/19 09:42 Dose: 120 mg Enoxaparin Sodium (Lovenox -) 90 mg SQ BID [facility] Last Admin: 09/03/19 09:44 Dose: 90 mg Gabapentin (Neurontin -) 300 mg PO BID [facility] Last Admin: 09/03/19 09:43 Dose: 300 mg Vancomycin HCl 1,250 mg/ (Dextrose) 250 mls @ 166.667 mls/hr IVPB Q24H [facility] Last Admin: 09/02/19 14:36 Dose: 166.667 mls/hr Sodium Chloride (Normal Saline -) 1,000 mls @ 75 mls/hr IV ASDIR [facility] Last Admin: 09/03/19 12:04 Dose: 75 mls/hr Piperacillin Sod/Tazobactam (Sod 3.375 gm/ Dextrose) 50 mls @ 100 mls/hr IVPB Q8H-IV [facility]; Protocol Last Admin: 09/03/19 09:43 Dose: 100 mls/hr Oxycodone HCl (Roxicodone -) 10 mg PO Q8H PRN PRN Reason: PAIN LEVEL 4 - 6 Last Admin: 09/03/19 12:04 Dose: 10 mg Pantoprazole Sodium (Protonix -) 40 mg PO DAILY [facility] Last Admin: 09/03/19 09:42 Dose: 40 mg Sotalol HCl (Betapace -) 80 mg PO BID [facility] Last Admin: 09/03/19 09:42 Dose: 80 mg Constitutional: Yes: NAD Eyes: Yes: WNL HENT: Yes: WNL Neck: Yes: WNL Cardiovascular: Yes: Pulse Irregular, S1, S2 Respiratory: Yes: Scattered rhonchi, no wheeze, diminished on the right Gastrointestinal: Yes: Normal Bowel Sounds, Soft Extremities: Yes: WNL Edema: No Labs: Laboratory Results - last 24 hr 09/03/19 09/03/19 07:35 07:35 WBC 4.5 RBC 3.52 L Hgb 10.9 L Hct 33.1 L MCV 94.0 MCH 31.1 MCHC 33.0 RDW 17.5 H Plt Count 177 MPV 7.7 Sodium 140 Potassium 3.7 Chloride 104 Carbon Dioxide 29 Anion Gap 6 L BUN 4.1 L Creatinine 0.7 Est GFR (CKD-EPI)AfAm 115.59 Est GFR (CKD-EPI)NonAf 99.73 Random Glucose 86 Calcium 7.8 L Total Bilirubin 0.4 AST 14 L ALT 23 Alkaline Phosphatase 43 L Total Protein 5.9 L Albumin 2.5 L Assessment/Plan Problem List - Problems (1) Severe sepsis Code(s): A41.9 - SEPSIS, UNSPECIFIED ORGANISM; R65.20 - SEVERE SEPSIS WITHOUT SEPTIC SHOCK (2) Afib Code(s): I48.91 - UNSPECIFIED ATRIAL FIBRILLATION (3) COPD (chronic obstructive pulmonary disease) Code(s): J44.9 - CHRONIC OBSTRUCTIVE PULMONARY DISEASE, UNSPECIFIED Qualifiers: COPD type: unspecified COPD Qualified Code(s): J44.9 - Chronic obstructive pulmonary disease, unspecified ASSESSMENT/PLAN: Resolved Septic Shock: suspected source: PNA Squamous cell carcinoma HTN HLD COPD AFib SVC syndrome S/P SVC stent placement ABX per ID IVF BD TX Monitor off systemic steroids Hold on Thoracentesis or intervention at this point [facility]
[2019-09-03] MEDS: VANCOMYCIN HCL 1,250 MG in DEXTROSE 5%-WATER - 250 ML IVPB SCH (15:54)
--- NOTE | 2019-09-03 17:25 | PN ---
Progress Note, Physician History of Present Illness: Feels ok. Denies SOB at rest. No pain. - Current Medication List Current Medications: Active Medications Acetaminophen (Tylenol -) 650 mg PO Q6H PRN PRN Reason: FEVER Last Admin: 09/02/19 20:48 Dose: 650 mg Albuterol/Ipratropium (Duoneb -) 1 amp NEB RQID [facility] Last Admin: 09/03/19 15:33 Dose: 1 amp Diltiazem HCl (Cardizem Cd -) 120 mg PO DAILY [facility] Last Admin: 09/03/19 09:42 Dose: 120 mg Enoxaparin Sodium (Lovenox -) 90 mg SQ BID [facility] Last Admin: 09/03/19 09:44 Dose: 90 mg Gabapentin (Neurontin -) 300 mg PO BID [facility] Last Admin: 09/03/19 09:43 Dose: 300 mg Vancomycin HCl 1,250 mg/ (Dextrose) 250 mls @ 166.667 mls/hr IVPB Q24H [facility] Last Admin: 09/03/19 15:54 Dose: 166.667 mls/hr Sodium Chloride (Normal Saline -) 1,000 mls @ 75 mls/hr IV ASDIR [facility] Last Admin: 09/03/19 12:04 Dose: 75 mls/hr Piperacillin Sod/Tazobactam (Sod 3.375 gm/ Dextrose) 50 mls @ 100 mls/hr IVPB Q8H-IV [facility]; Protocol Last Admin: 09/03/19 09:43 Dose: 100 mls/hr Oxycodone HCl (Roxicodone -) 10 mg PO Q8H PRN PRN Reason: PAIN LEVEL 4 - 6 Last Admin: 09/03/19 12:04 Dose: 10 mg Pantoprazole Sodium (Protonix -) 40 mg PO DAILY [facility] Last Admin: 09/03/19 09:42 Dose: 40 mg Sotalol HCl (Betapace -) 80 mg PO BID [facility] Last Admin: 09/03/19 09:42 Dose: 80 mg - Objective Vital Signs: Vital Signs Temperature 97.3 F L 09/03/19 15:03 Pulse Rate 95 H 09/03/19 15:03 Respiratory Rate 20 09/03/19 15:03 Blood Pressure 110/74 09/03/19 15:03 O2 Sat by Pulse Oximetry (%) 95 09/03/19 09:00 Constitutional: Yes: No Distress Eyes: Yes: Conjunctiva Clear Respiratory: Yes: Regular, CTA Bilaterally Gastrointestinal: Yes: Soft. No: Distention Edema: No Labs: CBC, BMP 09/03/19 07:35 09/03/19 07:35 INR, PTT INR 1.20 (0.83-1.09) H 08/30/19 14:22 Assessment/Plan 64M with squamous cell carcinoma of RUL (PDL1 0%), SVC syndrome s/p stenting, COPD who presented admitted with PNA and parapneumonic effusio. On Abx. Clinically improving. Pt was previously treated with RT, Taxol and Carboplatin early of 2018 and was transitioned to Gemcitabine in 02/2019 due to increased tumor size (completed C6D15 on 07/10/2019). CBC stable. MRI brain pending
--- NOTE | 2019-09-03 18:03 | PN ---
Progress Note, Physician History of Present Illness: Pt feels less SOB. Still with cough/sputum production. No new complaints. Remains afebrile. - Current Medication List Current Medications: Active Medications Acetaminophen (Tylenol -) 650 mg PO Q6H PRN PRN Reason: FEVER Last Admin: 09/02/19 20:48 Dose: 650 mg Albuterol/Ipratropium (Duoneb -) 1 amp NEB RQID [facility] Last Admin: 09/03/19 15:33 Dose: 1 amp Diltiazem HCl (Cardizem Cd -) 120 mg PO DAILY [facility] Last Admin: 09/03/19 09:42 Dose: 120 mg Enoxaparin Sodium (Lovenox -) 90 mg SQ BID [facility] Last Admin: 09/03/19 09:44 Dose: 90 mg Gabapentin (Neurontin -) 300 mg PO BID [facility] Last Admin: 09/03/19 09:43 Dose: 300 mg Sodium Chloride (Normal Saline -) 1,000 mls @ 75 mls/hr IV ASDIR [facility] Last Admin: 09/03/19 12:04 Dose: 75 mls/hr Piperacillin Sod/Tazobactam (Sod 3.375 gm/ Dextrose) 50 mls @ 100 mls/hr IVPB Q8H-IV [facility]; Protocol Last Admin: 09/03/19 17:50 Dose: 100 mls/hr Vancomycin HCl 1,250 mg/ (Dextrose) 250 mls @ 166.667 mls/hr IVPB BID@0300, 1500 [facility]; Protocol Oxycodone HCl (Roxicodone -) 10 mg PO Q8H PRN PRN Reason: PAIN LEVEL 4 - 6 Last Admin: 09/03/19 12:04 Dose: 10 mg Pantoprazole Sodium (Protonix -) 40 mg PO DAILY [facility] Last Admin: 09/03/19 09:42 Dose: 40 mg Sotalol HCl (Betapace -) 80 mg PO BID [facility] Last Admin: 09/03/19 09:42 Dose: 80 mg - Objective Vital Signs: Vital Signs Temperature 97.3 F L 09/03/19 15:03 Pulse Rate 95 H 09/03/19 15:03 Respiratory Rate 20 09/03/19 15:03 Blood Pressure 110/74 09/03/19 15:03 O2 Sat by Pulse Oximetry (%) 95 09/03/19 09:00 Constitutional: Yes: No Distress, Calm Cardiovascular: Yes: Regular Rate and Rhythm Respiratory: Yes: CTA Bilaterally Gastrointestinal: Yes: Normal Bowel Sounds, Soft Extremities: Yes: WNL Integumentary: Yes: WNL Neurological: Yes: Alert, Oriented Labs: CBC, BMP 09/03/19 07:35 09/03/19 07:35 INR, PTT INR 1.20 (0.83-1.09) H 08/30/19 14:22 Microbiology 08/30/19 14:10 Blood - Peripheral Venous Blood Culture - Preliminary NO GROWTH OBTAINED AFTER 96 HOURS, INCUBATION TO CONTINUE FOR 1 DAYS. 08/30/19 14:22 Blood - Peripheral Venous Blood Culture - Preliminary NO GROWTH OBTAINED AFTER 96 HOURS, INCUBATION TO CONTINUE FOR 1 DAYS. 08/31/19 11:10 Sputum - Expectorated Gram Stain - Final 08/31/19 11:10 Sputum - Expectorated Sputum Culture - Preliminary Citrobacter Koseri Staphylococcus Latex Coag Pos 08/30/19 16:05 Urine - Urine Clean Catch Urine Culture - Final NO GROWTH OBTAINED 08/30/19 23:30 Urine For Antigen Detection Legionella Antigen - Final 08/30/19 23:30 Urine For Antigen Detection Streptococcus pneumoniae Antigen (M - Final Problem List - Problems (1) Severe sepsis Code(s): A41.9 - SEPSIS, UNSPECIFIED ORGANISM; R65.20 - SEVERE SEPSIS WITHOUT SEPTIC SHOCK (2) Acute respiratory failure Code(s): J96.00 - ACUTE RESPIRATORY FAILURE, UNSP W HYPOXIA OR HYPERCAPNIA Qualifiers: Respiratory failure complication: hypoxia Qualified Code(s): J96.01 - Acute respiratory failure with hypoxia (3) Afib Code(s): I48.91 - UNSPECIFIED ATRIAL FIBRILLATION (4) Anemia Code(s): D64.9 - ANEMIA, UNSPECIFIED Qualifiers: Anemia type: unspecified type Qualified Code(s): D64.9 - Anemia, unspecified (5) COPD (chronic obstructive pulmonary disease) Code(s): J44.9 - CHRONIC OBSTRUCTIVE PULMONARY DISEASE, UNSPECIFIED Qualifiers: COPD type: unspecified COPD Qualified Code(s): J44.9 - Chronic obstructive pulmonary disease, unspecified (6) HTN (hypertension) Code(s): I10 - ESSENTIAL (PRIMARY) HYPERTENSION Qualifiers: Hypertension type: essential hypertension Qualified Code(s): I10 - Essential (primary) hypertension (7) Leukocytosis Code(s): D72.829 - ELEVATED WHITE BLOOD CELL COUNT, UNSPECIFIED (8) Lung cancer Code(s): C34.90 - MALIGNANT NEOPLASM OF UNSP PART OF UNSP BRONCHUS OR LUNG Qualifiers: Laterality: right Lung location: upper lobe of lung Qualified Code(s): C34.11 - Malignant neoplasm of upper lobe, right bronchus or lung (9) Pneumonia Code(s): J18.9 - PNEUMONIA, UNSPECIFIED ORGANISM Qualifiers: Pneumonia type: due to unspecified organism Laterality: right Lung location: middle lobe of lung Qualified Code(s): J18.9 - Pneumonia, unspecified organism (10) SVC syndrome Code(s): I87.1 - COMPRESSION OF VEIN Assessment/Plan Septic Shock/PNA Acute respiratory failure Lung CA AFIB COPD/Chronic respiratory failure SVC syndrome -- Pt less SOB -- f/u final sputum culture results -- continue Zosyn/Vancomycin -- Vancomycin trough 5.4 - dose adjusted, monitor renal function closely. Repeat Vancomycin trough prior to 4th dose. -- on O2, BD -- Pulmonary following continue monitor
[2019-09-04] MEDS ORDERED: PIPERACILLIN/TAZOBACTAM 3.375 GM VIAL IVPB ONE (01:21)
[2019-09-04] MEDS ORDERED: DEXTROSE 5%-WATER - 50 ML IVPB ONE ×3 (01:22→11:42)
[2019-09-04] MEDS: PIPERACILLIN/TAZOB 3.375 GM 3.375 GM in DEXTROSE 5%-WATER - 50 ML IVPB SCH (01:27)
[2019-09-04] MEDS ORDERED: PT OWN MED DRAWER 7, Y5N ONE ×4 (02:05→16:53)
[2019-09-04] MEDS: ACETAMINOPHEN 325 MG TABLET (FP) PO PRN ×2 (02:38→11:46)
[2019-09-04] MEDS: VANCOMYCIN HCL 1,250 MG in DEXTROSE 5%-WATER - 250 ML IVPB SCH ×2 (03:12→17:15)
[2019-09-04] MEDS: oxyCODONE HCL 5 MG TABLET PO PRN ×3 (04:52→21:43)
[2019-09-04 07:04] LABS: HEMATOCRIT 35.4 % (35.4-49); HEMOGLOBIN 11.6 GM/dL (11.7-16.9); MCH 30.9 pg (25.7-33.7); MCHC 32.7 g/dl (32.0-35.9); MEAN CELL VOLUME 94.5 fl (80-96); MEAN PLT VOLUME 7.5 fl (7.5-11.1); PLATELET COUNT 191 K/MM3 (134-434); RBC 3.74 M/mm3 (4.00-5.60); RDW 17.8 % (11.9-15.9)
--- NOTE | 2019-09-04 07:32 | PN ---
Progress Note, Physician History of Present Illness: stable still sob - Current Medication List Current Medications: Active Medications Acetaminophen (Tylenol -) 650 mg PO Q6H PRN PRN Reason: FEVER Last Admin: 09/04/19 02:38 Dose: 650 mg Albuterol/Ipratropium (Duoneb -) 1 amp NEB RQID [facility] Last Admin: 09/03/19 20:15 Dose: 1 amp Diltiazem HCl (Cardizem Cd -) 120 mg PO DAILY [facility] Last Admin: 09/03/19 09:42 Dose: 120 mg Enoxaparin Sodium (Lovenox -) 90 mg SQ BID [facility] Last Admin: 09/03/19 21:25 Dose: 90 mg Gabapentin (Neurontin -) 300 mg PO BID [facility] Last Admin: 09/03/19 21:25 Dose: 300 mg Sodium Chloride (Normal Saline -) 1,000 mls @ 75 mls/hr IV ASDIR [facility] Last Admin: 09/03/19 12:04 Dose: 75 mls/hr Piperacillin Sod/Tazobactam (Sod 3.375 gm/ Dextrose) 50 mls @ 100 mls/hr IVPB Q8H-IV [facility]; Protocol Last Admin: 09/04/19 01:27 Dose: 100 mls/hr Vancomycin HCl 1,250 mg/ (Dextrose) 250 mls @ 166.667 mls/hr IVPB BID@0300, 1500 [facility]; Protocol Last Admin: 09/04/19 03:12 Dose: 166.667 mls/hr Oxycodone HCl (Roxicodone -) 10 mg PO Q8H PRN PRN Reason: PAIN LEVEL 4 - 6 Last Admin: 09/04/19 04:52 Dose: 10 mg Pantoprazole Sodium (Protonix -) 40 mg PO DAILY [facility] Last Admin: 09/03/19 09:42 Dose: 40 mg Sotalol HCl (Betapace -) 80 mg PO BID [facility] Last Admin: 09/03/19 21:25 Dose: 80 mg - Objective Vital Signs: Vital Signs Temperature 97.1 F L 09/04/19 05:43 Pulse Rate 104 H 09/04/19 05:43 Respiratory Rate 20 09/04/19 05:43 Blood Pressure 99/71 09/04/19 05:43 O2 Sat by Pulse Oximetry (%) 95 09/03/19 21:00 Constitutional: Yes: Calm, Mild Distress Cardiovascular: Yes: S1, S2 Respiratory: Yes: Regular, On Venti-Mask, Poor Air Entry Gastrointestinal: Yes: Normal Bowel Sounds, Soft Musculoskeletal: Yes: WNL Extremities: Yes: WNL Neurological: Yes: Alert, Oriented Psychiatric: Yes: Alert, Oriented Labs: CBC, BMP 09/04/19 06:15 INR, PTT INR 1.20 (0.83-1.09) H 08/30/19 14:22 Assessment/Plan 64 y/o male with PMH of squamous cell carcinoma (currently receiving chemo therapy last session was July), HTN, HLD, COPD, afib, SVC syndrome s/p stent placement presents to the ED with complaints of fevers and productive cough over the last 3 days find to be in septic shock Problem List - Problems (1) Severe sepsis Code(s): A41.9 - SEPSIS, UNSPECIFIED ORGANISM; R65.20 - SEVERE SEPSIS WITHOUT SEPTIC SHOCK (2) Acute respiratory failure Code(s): J96.00 - ACUTE RESPIRATORY FAILURE, UNSP W HYPOXIA OR HYPERCAPNIA Qualifiers: Respiratory failure complication: hypoxia Qualified Code(s): J96.01 - Acute respiratory failure with hypoxia (3) Afib Code(s): I48.91 - UNSPECIFIED ATRIAL FIBRILLATION (4) Anemia Code(s): D64.9 - ANEMIA, UNSPECIFIED Qualifiers: Anemia type: unspecified type Qualified Code(s): D64.9 - Anemia, unspecified (5) COPD (chronic obstructive pulmonary disease) Code(s): J44.9 - CHRONIC OBSTRUCTIVE PULMONARY DISEASE, UNSPECIFIED Qualifiers: COPD type: unspecified COPD Qualified Code(s): J44.9 - Chronic obstructive pulmonary disease, unspecified (6) HTN (hypertension) Code(s): I10 - ESSENTIAL (PRIMARY) HYPERTENSION Qualifiers: Hypertension type: essential hypertension Qualified Code(s): I10 - Essential (primary) hypertension (7) Leukocytosis Code(s): D72.829 - ELEVATED WHITE BLOOD CELL COUNT, UNSPECIFIED (8) Lung cancer Code(s): C34.90 - MALIGNANT NEOPLASM OF UNSP PART OF UNSP BRONCHUS OR LUNG Qualifiers: Laterality: right Lung location: upper lobe of lung Qualified Code(s): C34.11 - Malignant neoplasm of upper lobe, right bronchus or lung (9) Pneumonia Code(s): J18.9 - PNEUMONIA, UNSPECIFIED ORGANISM Qualifiers: Pneumonia type: due to unspecified organism Laterality: right Lung location: middle lobe of lung Qualified Code(s): J18.9 - Pneumonia, unspecified organism (10) SVC syndrome Code(s): I87.1 - COMPRESSION OF VEIN Assessment/Plan Septic Shock/PNA Acute respiratory failure Lung CA AFIB COPD/Chronic respiratory failure SVC syndrome plan conitnue current abx await for finalization of organism will change zosyn to ceftriaxone rest as per the team
[2019-09-04] MEDS: ALBUTEROL SO4 2.5/IPRATROPIUM 0.5 INH SOL 3 ML VIAL.NEB. NEB SCH ×4 (07:35→21:22)
[2019-09-04 07:50] LABS: ALBUMIN 2.5 g/dl (3.4-5.0); BILIRUBIN,TOTAL 0.5 mg/dL (0.2-1); BLOOD UREA NITROGEN 4.1 mg/dL (7-18); CALCIUM 8.2 mg/dL (8.5-10.1); CREATININE 0.8 mg/dL (0.55-1.3); POTASSIUM 3.7 mmol/L (3.5-5.1)
--- NOTE | 2019-09-04 08:08 | PN ---
Progress Note, Physician - Current Medication List Current Medications: Active Medications Acetaminophen (Tylenol -) 650 mg PO Q6H PRN PRN Reason: FEVER Last Admin: 09/04/19 02:38 Dose: 650 mg Albuterol/Ipratropium (Duoneb -) 1 amp NEB RQID [facility] Last Admin: 09/03/19 20:15 Dose: 1 amp Diltiazem HCl (Cardizem Cd -) 120 mg PO DAILY [facility] Last Admin: 09/03/19 09:42 Dose: 120 mg Enoxaparin Sodium (Lovenox -) 90 mg SQ BID [facility] Last Admin: 09/03/19 21:25 Dose: 90 mg Gabapentin (Neurontin -) 300 mg PO BID [facility] Last Admin: 09/03/19 21:25 Dose: 300 mg Sodium Chloride (Normal Saline -) 1,000 mls @ 75 mls/hr IV ASDIR [facility] Last Admin: 09/03/19 12:04 Dose: 75 mls/hr Vancomycin HCl 1,250 mg/ (Dextrose) 250 mls @ 166.667 mls/hr IVPB BID@0300, 1500 [facility]; Protocol Last Admin: 09/04/19 03:12 Dose: 166.667 mls/hr Ceftriaxone Sodium 1 gm/ (Dextrose) 50 mls @ 100 mls/hr IVPB DAILY [facility]; Protocol Oxycodone HCl (Roxicodone -) 10 mg PO Q8H PRN PRN Reason: PAIN LEVEL 4 - 6 Last Admin: 09/04/19 04:52 Dose: 10 mg Pantoprazole Sodium (Protonix -) 40 mg PO DAILY [facility] Last Admin: 09/03/19 09:42 Dose: 40 mg Sotalol HCl (Betapace -) 80 mg PO BID [facility] Last Admin: 09/03/19 21:25 Dose: 80 mg - Objective Vital Signs: Vital Signs Temperature 97.1 F L 09/04/19 05:43 Pulse Rate 104 H 09/04/19 05:43 Respiratory Rate 20 09/04/19 05:43 Blood Pressure 99/71 09/04/19 05:43 O2 Sat by Pulse Oximetry (%) 95 09/03/19 21:00 Labs: CBC, BMP 09/04/19 06:15 09/04/19 06:15 INR, PTT INR 1.20 (0.83-1.09) H 08/30/19 14:22 Problem List - Problems (1) Pneumonia Code(s): J18.9 - PNEUMONIA, UNSPECIFIED ORGANISM Qualifiers: Pneumonia type: due to unspecified organism Laterality: right Lung location: middle lobe of lung Qualified Code(s): J18.9 - Pneumonia, unspecified organism (2) Sepsis Code(s): A41.9 - SEPSIS, UNSPECIFIED ORGANISM Qualifiers: Sepsis type: sepsis due to unspecified organism Sepsis acute organ dysfunction status: without acute organ dysfunction Qualified Code(s): A41.9 - Sepsis, unspecified organism (3) COPD (chronic obstructive pulmonary disease) Code(s): J44.9 - CHRONIC OBSTRUCTIVE PULMONARY DISEASE, UNSPECIFIED Qualifiers: COPD type: unspecified COPD Qualified Code(s): J44.9 - Chronic obstructive pulmonary disease, unspecified (4) DVT (deep venous thrombosis) Code(s): I82.409 - ACUTE EMBOLISM AND THOMBOS UNSP DEEP VN UNSP LOWER EXTREMITY Qualifiers: DVT location: upper extremity Affected thrombotic vein of extremity: other upper extremity vein Chronicity: acute Laterality: right Qualified Code(s) : I82.621 - Acute embolism and thrombosis of deep veins of right upper extremity (5) Squamous cell lung cancer Code(s): C34.90 - MALIGNANT NEOPLASM OF UNSP PART OF UNSP BRONCHUS OR LUNG Assessment/Plan - Problems (1) Severe sepsis Assessment/Plan: ID on board no leukocytosis Vancomycin, Zosyn BC neg UC neg Sputum culture prelim positive Urine Legionella neg CXR shows R effusion with R infiltrate, R vascular stent Chest CT scan shows partially loculated R pleural effusion which currently appears moderate, R hilar/perihilar mass lesion noted with at least partial occlusionof RUL and lower lobe bronchi, RUL interstitial thickening on basis of lymphangitic neoplastic disease, interval development RLL opacity probably on basis atelectasis, interval enlargement of several small left upper lobe and LLL pulmonary nodules LA 2.0 Code(s): A41.9 - SEPSIS, UNSPECIFIED ORGANISM; R65.20 - SEVERE SEPSIS WITHOUT SEPTIC SHOCK (2) Acute kidney injury Assessment/Plan: resolved BUN/Cr 4.1/0.7 monitor renal function daily Code(s): N17.9 - ACUTE KIDNEY FAILURE, UNSPECIFIED (3) Afib Assessment/Plan: Enoxaparin BID Cardizem for rate control Code(s): I48.91 - UNSPECIFIED ATRIAL FIBRILLATION (4) Anemia Assessment/Plan: Hg 10.9 monitor Hg daily transfuse for Hg <7.0 to avoid fluid overload anemia profile Code(s): D64.9 - ANEMIA, UNSPECIFIED Qualifiers: Anemia type: unspecified type Qualified Code(s): D64.9 - Anemia, unspecified (5) COPD (chronic obstructive pulmonary disease) Assessment/Plan: Pulmonary on board keep SpO2 >90% O2 via NC bronchodilators Code(s): J44.9 - CHRONIC OBSTRUCTIVE PULMONARY DISEASE, UNSPECIFIED Qualifiers: COPD type: unspecified COPD Qualified Code(s): J44.9 - Chronic obstructive pulmonary disease, unspecified (6) DVT (deep venous thrombosis) Assessment/Plan: Enoxaparin Code(s): I82.409 - ACUTE EMBOLISM AND THOMBOS UNSP DEEP VN UNSP LOWER EXTREMITY Qualifiers: DVT location: upper extremity Affected thrombotic vein of extremity: other upper extremity vein Chronicity: acute Laterality: right Qualified Code(s) : I82.621 - Acute embolism and thrombosis of deep veins of right upper extremity (7) HTN (hypertension) Assessment/Plan: Cardizem, Sotalol low Na diet Code(s): I10 - ESSENTIAL (PRIMARY) HYPERTENSION Qualifiers: Hypertension type: essential hypertension Qualified Code(s): I10 - Essential (primary) hypertension (8) Lactic acidosis Assessment/Plan: LA 2.0 Code(s): E87.2 - ACIDOSIS (9) Lung cancer Assessment/Plan: Oncology on board Chest CT scan shows partially loculated R pleural effusion which currently appears moderate, R hilar/perihilar mass lesion noted with at least partial occlusionof RUL and lower lobe bronchi, RUL interstitial thickening on basis of lymphangitic neoplastic disease, interval development RLL opacity probably on basis atelectasis, interval enlargement of several small left upper lobe and LLL pulmonary nodules pending Brain MRI Code(s): C34.90 - MALIGNANT NEOPLASM OF UNSP PART OF UNSP BRONCHUS OR LUNG Qualifiers: Laterality: right Lung location: upper lobe of lung Qualified Code(s): C34.11 - Malignant neoplasm of upper lobe, right bronchus or lung
[2019-09-04] MEDS ORDERED: CEFTRIAXONE 1 GM in DEXTROSE 5%-WATER - 50 ML IVPB SCH (10:00)
[2019-09-04] MEDS ORDERED: cefTRIAXone SODIUM 1 GM VIAL ONE ×2 (10:39→11:42)
--- NOTE | 2019-09-04 10:56 | PN ---
Progress Note (short form) - Note Progress Note: Breathing feels better today. Less congested cough. No hemoptysis. Intake & Output 09/01/19 09/02/19 09/03/19 09/04/19 23:59 23:59 23:59 23:59 Intake Total 2225 2820 1890 650 Output Total 1100 450 650 300 Balance 1125 2370 1240 350 Weight 193 lb 6 oz 189 lb 3 oz 194 lb 3 oz Last Vital Signs Temp Pulse Resp BP Pulse Ox 97.1 F L 104 H 20 99/71 95 09/04/19 05:43 09/04/19 05:43 09/04/19 05:43 09/04/19 05:43 09/03/19 21:00 Active Medications Acetaminophen (Tylenol -) 650 mg PO Q6H PRN PRN Reason: FEVER Last Admin: 09/04/19 02:38 Dose: 650 mg Albuterol/Ipratropium (Duoneb -) 1 amp NEB RQID [facility] Last Admin: 09/04/19 07:35 Dose: 1 amp Diltiazem HCl (Cardizem Cd -) 120 mg PO DAILY [facility] Last Admin: 09/03/19 09:42 Dose: 120 mg Enoxaparin Sodium (Lovenox -) 90 mg SQ BID [facility] Last Admin: 09/03/19 21:25 Dose: 90 mg Gabapentin (Neurontin -) 300 mg PO BID [facility] Last Admin: 09/03/19 21:25 Dose: 300 mg Sodium Chloride (Normal Saline -) 1,000 mls @ 75 mls/hr IV ASDIR [facility] Last Admin: 09/03/19 12:04 Dose: 75 mls/hr Vancomycin HCl 1,250 mg/ (Dextrose) 250 mls @ 166.667 mls/hr IVPB BID@0300, 1500 [facility]; Protocol Last Admin: 09/04/19 03:12 Dose: 166.667 mls/hr Ceftriaxone Sodium 1 gm/ (Dextrose) 50 mls @ 100 mls/hr IVPB DAILY [facility]; Protocol Oxycodone HCl (Roxicodone -) 10 mg PO Q8H PRN PRN Reason: PAIN LEVEL 4 - 6 Last Admin: 09/04/19 04:52 Dose: 10 mg Pantoprazole Sodium (Protonix -) 40 mg PO DAILY [facility] Last Admin: 09/03/19 09:42 Dose: 40 mg Sotalol HCl (Betapace -) 80 mg PO BID [facility] Last Admin: 09/03/19 21:25 Dose: 80 mg Constitutional: Yes: NAD Eyes: Yes: WNL HENT: Yes: WNL Neck: Yes: WNL Cardiovascular: Yes: Pulse Irregular, S1, S2 Respiratory: Yes: Scattered rhonchi, no wheeze, diminished on the right Gastrointestinal: Yes: Normal Bowel Sounds, Soft Extremities: Yes: WNL Edema: No Labs: Laboratory Results - last 24 hr 09/03/19 09/04/19 09/04/19 13:04 06:15 06:15 WBC 5.0 RBC 3.74 L Hgb 11.6 L Hct 35.4 MCV 94.5 MCH 30.9 MCHC 32.7 RDW 17.8 H Plt Count 191 MPV 7.5 Sodium 138 Potassium 3.7 Chloride 104 Carbon Dioxide 29 Anion Gap 6 L BUN 4.1 L Creatinine 0.8 Est GFR (CKD-EPI)AfAm 109.42 Est GFR (CKD-EPI)NonAf 94.41 Random Glucose 91 Calcium 8.2 L Total Bilirubin 0.5 AST 13 L ALT 22 Alkaline Phosphatase 43 L Total Protein 6.0 L Albumin 2.5 L Vancomycin Pre-Dose 5.4 Assessment/Plan Problem List - Problems (1) Severe sepsis Code(s): A41.9 - SEPSIS, UNSPECIFIED ORGANISM; R65.20 - SEVERE SEPSIS WITHOUT SEPTIC SHOCK (2) Afib Code(s): I48.91 - UNSPECIFIED ATRIAL FIBRILLATION (3) COPD (chronic obstructive pulmonary disease) Code(s): J44.9 - CHRONIC OBSTRUCTIVE PULMONARY DISEASE, UNSPECIFIED Qualifiers: COPD type: unspecified COPD Qualified Code(s): J44.9 - Chronic obstructive pulmonary disease, unspecified ASSESSMENT/PLAN: Resolved Septic Shock: suspected source: PNA Squamous cell carcinoma HTN HLD COPD AFib SVC syndrome S/P SVC stent placement ABX per ID IVF BD TX Monitor off systemic steroids Hold on Thoracentesis or intervention at this point AC with Mago Jean
[2019-09-04] MEDS: SODIUM CHLORIDE 1,000 ML IV SCH (11:44)
[2019-09-04] MEDS: SOTALOL HCL 80 MG TABLET (FP) PO SCH ×2 (11:46→23:35)
[2019-09-04] MEDS: PANTOPRAZOLE 40 MG TABLET PO SCH (11:47)
[2019-09-04] MEDS: GABAPENTIN 300 MG CAPSULE PO SCH ×2 (11:47→21:43)
[2019-09-04] MEDS: ENOXAPARIN NA (PORCINE) 100 MG/1 ML DISP.SYRIN SQ SCH ×2 (11:48→21:43)
[2019-09-04 16:13] VITALS: BMI 24.2
--- NOTE | 2019-09-04 20:46 | PN ---
Progress Note (short form) - Note Progress Note: PAtient seen and examined Reports feeling slightly better Last Vital Signs Temp Pulse Resp BP Pulse Ox 97.3 F L 104 H 20 102/75 95 09/04/19 18:00 09/04/19 18:00 09/04/19 18:00 09/04/19 18:00 09/04/19 09:00 Cor: RSR, No murmurs, No gallops Lungs: Clear to P&A Abd: Soft, Normal bowel sounds, No organomegaly Ext:No significant edema Labs/Meds reviewed Active Medications Generic Name Dose Route Start Last Admin Trade Name Freq PRN Reason Stop Dose Admin Acetaminophen 650 mg 09/02/19 19:44 09/04/19 11:46 Tylenol - PO 650 mg Q6H PRN Administration FEVER Albuterol/Ipratropium 1 amp 09/01/19 08:00 09/04/19 15:50 Duoneb - NEB 1 amp RQID [facility] Administration Diltiazem HCl 120 mg 09/01/19 10:00 09/04/19 11:47 Cardizem Cd - PO 120 mg DAILY [facility] Administration Enoxaparin Sodium 90 mg 08/31/19 22:00 09/04/19 11:48 Lovenox - SQ 90 mg BID [facility] Administration Gabapentin 300 mg 08/31/19 22:00 09/04/19 11:47 Neurontin - PO 300 mg BID [facility] Administration Sodium Chloride 1,000 mls @ 75 mls/hr 08/31/19 18:15 09/04/19 11:44 Normal Saline - IV Not Given ASDIR [facility] Vancomycin HCl 1,250 mg/ 250 mls @ 166.667 mls/hr 09/04/19 03:00 09/04/19 17: 15 Dextrose IVPB 166.667 mls/hr BID@0300,1500 [facility] Administration Protocol Ceftriaxone Sodium 1 gm/ 50 mls @ 100 mls/hr 09/04/19 10:00 09/04/19 11:44 Dextrose IVPB 100 mls/hr DAILY [facility] Administration Protocol Oxycodone HCl 10 mg 08/31/19 20:25 09/04/19 13:35 Roxicodone - PO 10 mg Q8H PRN Administration PAIN LEVEL 4 - 6 Pantoprazole Sodium 40 mg 09/01/19 10:00 09/04/19 11:47 Protonix - PO 40 mg DAILY [facility] Administration Sotalol HCl 80 mg 08/31/19 22:00 09/04/19 11:46 Betapace - PO 80 mg BID [facility] Administration A/P Sepsis- likely pneumonia Locally advanced Squamous cell carcinoma of the lung SVC stent S/P chemotherpy with gemcitibine last admministered in 07/10/2019. To continue with antibiotics per ID. MRI brain
[2019-09-05] MEDS: VANCOMYCIN HCL 1,250 MG in DEXTROSE 5%-WATER - 250 ML IVPB SCH (02:31)
[2019-09-05] MEDS: SODIUM CHLORIDE 1,000 ML IV SCH (02:40)
--- NOTE | 2019-09-05 05:47 | CONS ---
DATE OF CONSULTATION: 09/04/2019 PHYSICAL MEDICAINE REHABILITATION CONSULTATION REFERRING PHYSICIAN: Anika Veliz MD. HISTORY OF PRESENT ILLNESS: Patient is a 64-year-old male with past medical history of squamous cell lung cancer status post chemotherapy last session July who apparently was recently discharged from rehabilitation and developed a productive cough as well as fevers which developed over 3 days prior to admission. The patient on admission had fever or 103. His WBCs were elevated at 12.5, hemoglobin normal at 13.1, platelet count normal 164, sodium low 132, elevated BUN of 19.9, creatinine 1.0. Patient's calcium was low at 7.4, low albumin 2.4. Patient underwent imaging including chest x-ray and was diagnosed with pneumonia as well as sepsis and treated. He underwent CT of the chest on August 28 which showed increased size of right pleural effusion, moderate with perihilar hilar mass lesion noted on the right. Right lower lobe opacity and right upper lobe interstitial thickening when compared to study from March 2019. Patient overall is feeling much improved. His last blood work done this morning, WBC is normalized at 5.0, hemoglobin 11.6, platelet count 191, sodium normalized at 138, BUN is low at 4.1, normal creatinine 0.8. Potassium level is 3.7. He did have a hemoglobin A1c on August 31 which was elevated at 6.6, TSH was low at 2.4. Patient states he was seen by physical therapy today and per the therapy note ambulated 175 feet with a rolling walker at a contact guard level. He transferred supine to sit with supervision. Therapy recommended home with home services once medically stabilized. Patient states he felt fairly well when he was up, no pain, no lightheadedness or dizziness, no shortness of breath. Patient is now seen in rehabilitation evaluation. PAST MEDICAL AND SURGICAL HISTORY: Review of past medical and surgical history as above. Atrial fibrillation, hypertension, COPD, cholecystectomy, hernia repair. SOCIAL HISTORY: Per the patient lives with his in an apartment with 17 steps to enter. He is a former tobacco user but no recent tobacco use. Current function as above. REVIEW OF SYSTEMS: He denies any headache, any lightheadedness, dizziness, any blurred vision, double vision, any nausea/vomiting, difficulty swallowing, difficulty chewing. No chest pain or shortness of breath at rest, but he does get dyspneic on exertion at times. He has no numbness, tingling in his hands, but notes that he does get numbness, tingling in the distal lower extremities, and this he states is from chemotherapy. It previously had been up in the upper extremities. Patient has no joint arthralgias, no neck or back pain. PHYSICAL EXAMINATION: GENERAL: Patient is a well-developed, well-nourished man seen lying in bed. He is in no acute distress. HEENT: Normocephalic and atraumatic. His extraocular muscles appear intact. NECK: Supple. EXTREMITIES: Without any pitting edema, or calf tenderness. NEUROMUSCULAR: He is awake, alert, oriented x3. Cranial nerves 2-12 grossly intact. He has fairly good strength and range throughout the upper extremities, normal sensation in the lower extremities. He has proximal weakness in the hip girdle , 3+ out of 5, and the extensors 5- out of 5, good dorsiflexion, plantar flexion 5/5, slightly diminished sensation distally in the lower extremities with depressed reflexes. Good muscle bulk. He has no gross arthritic change in the upper/ lower extremities. Good joint stability. OVERALL IMPRESSION: 1. Deficit to mobility, activities of daily living, improving. 2. Deconditioning, proximal lower extremity weakness. 3. Status post sepsis due to pneumonia. 4. Status post hyponatremia resolved. 5. Decreased TSH. 6. Lung cancer status post chemotherapy. 7. Underlying chronic obstructive pulmonary disease. 8. Atrial fibrillation. 9. IVC syndrome status post stent placement. 10. Increased risk for DVT due to immobility. PLAN AND SUGGESTIONS: 1. Continue physical therapy at the bedside for mobilization including bed mobility, transfers, gait training, strengthening, reconditioning, stair negotiation if appropriate. 2. Out of bed to chair. 3. Wean oxygen if able, if appropriate. 4. Continue Lovenox for DVT prophylaxis. 5. Skin precautions. 6. Bowel regimen, monitor for constipation. 7. Home with home care once medically stable. Thank you for this referral. HECTOR STEELE M.D. [place]/[id number] MTDD
[2019-09-05] MEDS: ACETAMINOPHEN 325 MG TABLET (FP) PO PRN ×3 (06:00→23:59)
[2019-09-05] MEDS: oxyCODONE HCL 5 MG TABLET PO PRN ×2 (06:01→14:53)
--- NOTE | 2019-09-05 07:55 | DS ---
Physical Examination Vital Signs: Vital Signs Temperature 98.5 F 09/05/19 05:55 Pulse Rate 116 H 09/05/19 05:55 Respiratory Rate 20 09/05/19 05:55 Blood Pressure 103/77 09/05/19 05:55 O2 Sat by Pulse Oximetry (%) 95 09/04/19 21:00 Cardiovascular: Yes: S1, S2 Respiratory: Yes: Rhonchi Gastrointestinal: Yes: Normal Bowel Sounds, Soft Labs: CBC, BMP 09/04/19 06:15 09/04/19 06:15 Discharge Summary Problems reviewed: Yes Reason For Visit: SEVER SEPSIS Current Active Problems Severe sepsis (Acute) Hospital Course: - Problems (1) Severe sepsis Assessment/Plan: ID on board no leukocytosis dc Vancomycin, Zosyn--po ceftin BC neg UC neg Sputum culture prelim positive Urine Legionella neg CXR shows R effusion with R infiltrate, R vascular stent Chest CT scan shows partially loculated R pleural effusion which currently appears moderate, R hilar/perihilar mass lesion noted with at least partial occlusionof RUL and lower lobe bronchi, RUL interstitial thickening on basis of lymphangitic neoplastic disease, interval development RLL opacity probably on basis atelectasis, interval enlargement of several small left upper lobe and LLL pulmonary nodules LA 2.0 Code(s): A41.9 - SEPSIS, UNSPECIFIED ORGANISM; R65.20 - SEVERE SEPSIS WITHOUT SEPTIC SHOCK (2) Acute kidney injury Assessment/Plan: resolved BUN/Cr 4.1/0.7 monitor renal function daily Code(s): N17.9 - ACUTE KIDNEY FAILURE, UNSPECIFIED (3) Afib Assessment/Plan: Enoxaparin BID Cardizem for rate control Code(s): I48.91 - UNSPECIFIED ATRIAL FIBRILLATION (4) Anemia Assessment/Plan: Hg 10.9 monitor Hg daily transfuse for Hg <7.0 to avoid fluid overload anemia profile Code(s): D64.9 - ANEMIA, UNSPECIFIED Qualifiers: Anemia type: unspecified type Qualified Code(s): D64.9 - Anemia, unspecified (5) COPD (chronic obstructive pulmonary disease) Assessment/Plan: Pulmonary on board keep SpO2 >90% O2 via NC bronchodilators Code(s): J44.9 - CHRONIC OBSTRUCTIVE PULMONARY DISEASE, UNSPECIFIED Qualifiers: COPD type: unspecified COPD Qualified Code(s): J44.9 - Chronic obstructive pulmonary disease, unspecified (6) DVT (deep venous thrombosis) Assessment/Plan: Enoxaparin Code(s): I82.409 - ACUTE EMBOLISM AND THOMBOS UNSP DEEP VN UNSP LOWER EXTREMITY Qualifiers: DVT location: upper extremity Affected thrombotic vein of extremity: other upper extremity vein Chronicity: acute Laterality: right Qualified Code(s) : I82.621 - Acute embolism and thrombosis of deep veins of right upper extremity (7) HTN (hypertension) Assessment/Plan: Cardizem, Sotalol low Na diet Code(s): I10 - ESSENTIAL (PRIMARY) HYPERTENSION Qualifiers: Hypertension type: essential hypertension Qualified Code(s): I10 - Essential (primary) hypertension (8) Lactic acidosis Assessment/Plan: LA 2.0 Code(s): E87.2 - ACIDOSIS (9) Lung cancer Assessment/Plan: Oncology on board Chest CT scan shows partially loculated R pleural effusion which currently appears moderate, R hilar/perihilar mass lesion noted with at least partial occlusionof RUL and lower lobe bronchi, RUL interstitial thickening on basis of lymphangitic neoplastic disease, interval development RLL opacity probably on basis atelectasis, interval enlargement of several small left upper lobe and LLL pulmonary nodules pending Brain MRI Code(s): C34.90 - MALIGNANT NEOPLASM OF UNSP PART OF UNSP BRONCHUS OR LUNG Qualifiers: Laterality: right Lung location: upper lobe of lung Qualified Code(s): C34.11 - Malignant neoplasm of upper lobe, right bronchus or lung - Instructions Referrals: Wili Hathaway MD [Primary Care Provider] - Disposition: HOME - Home Medications Comprehensive Discharge Medication List: Ambulatory Orders Sotalol HCl [Betapace -] 80 mg PO BID tablet 04/29/18 Diltiazem Cd [Cardizem Cd -] 120 mg PO DAILY #30 cap.cd.24h 05/05/18 Ondansetron HCl [Zofran] 8 mg PO TID 11/24/18 Morphine *Sr* [MS Contin -] 30 mg PO Q12H 11/25/18 Enoxaparin [Lovenox -] 90 mg SQ BID 03/28/19 Gabapentin 300 mg PO BID 03/28/19 Pantoprazole Sodium [Protonix] 40 mg PO DAILY 03/28/19 Lactobacillus Acidophilus [Bacid -] 1 tab PO DAILY #14 tab 04/06/19 Albuterol 0.083% Nebulizer Moon [Ventolin 0.083% Nebulizer Soln -] 1 amp NEB Q6H PRN amp 07/28/19 Albuterol 2.5/Ipratropium 0.5 [Duoneb -] 1 amp NEB RQID amp 07/28/19 oxyCODONE HCL [Roxicodone -] 10 mg PO Q8H PRN tablet MDD 4 07/28/19 Cefuroxime Axetil [Ceftin -] 500 mg PO BID #14 tablet 09/05/19
[2019-09-05] MEDS: ALBUTEROL SO4 2.5/IPRATROPIUM 0.5 INH SOL 3 ML VIAL.NEB. NEB SCH ×4 (08:00→20:35)
[2019-09-05] MEDS: PANTOPRAZOLE 40 MG TABLET PO SCH (09:10)
[2019-09-05] MEDS: CEFUROXIME AXETIL 500 MG TABLET PO SCH ×2 (09:10→21:30)
[2019-09-05] MEDS: SOTALOL HCL 80 MG TABLET (FP) PO SCH ×2 (09:10→21:34)
[2019-09-05] MEDS: GABAPENTIN 300 MG CAPSULE PO SCH ×2 (09:10→21:30)
[2019-09-05] MEDS: ENOXAPARIN NA (PORCINE) 100 MG/1 ML DISP.SYRIN SQ SCH ×2 (09:15→21:30)
--- NOTE | 2019-09-05 10:43 | PN ---
Progress Note (short form) - Note Progress Note: Resting in NAD. Breathing overall feels better. No hemoptysis. Intake & Output 09/02/19 09/03/19 09/04/19 09/05/19 23:59 23:59 23:59 23:59 Intake Total 2820 1890 1725 1500 Output Total 450 650 800 Balance 2370 6077 251 2246 Weight 189 lb 3 oz 194 lb 3 oz 197 lb 1 oz Last Vital Signs Temp Pulse Resp BP Pulse Ox 98.5 F 116 H 20 103/77 95 09/05/19 05:55 09/05/19 05:55 09/05/19 05:55 09/05/19 05:55 09/04/19 21:00 Active Medications Acetaminophen (Tylenol -) 650 mg PO Q6H PRN PRN Reason: FEVER Last Admin: 09/05/19 06:00 Dose: 650 mg Albuterol/Ipratropium (Duoneb -) 1 amp NEB RQID [facility] Last Admin: 09/05/19 08:00 Dose: 1 amp Cefuroxime Axetil (Ceftin -) 500 mg PO BID [facility] Last Admin: 09/05/19 09:10 Dose: 500 mg Diltiazem HCl (Cardizem Cd -) 120 mg PO DAILY [facility] Last Admin: 09/05/19 09:10 Dose: 120 mg Enoxaparin Sodium (Lovenox -) 90 mg SQ BID [facility] Last Admin: 09/05/19 09:15 Dose: 90 mg Gabapentin (Neurontin -) 300 mg PO BID [facility] Last Admin: 09/05/19 09:10 Dose: 300 mg Oxycodone HCl (Roxicodone -) 10 mg PO Q8H PRN PRN Reason: PAIN LEVEL 4 - 6 Last Admin: 09/05/19 06:01 Dose: 10 mg Pantoprazole Sodium (Protonix -) 40 mg PO DAILY [facility] Last Admin: 09/05/19 09:10 Dose: 40 mg Sotalol HCl (Betapace -) 80 mg PO BID [facility] Last Admin: 09/05/19 09:10 Dose: 80 mg Constitutional: Yes: NAD Eyes: Yes: WNL HENT: Yes: WNL Neck: Yes: WNL Cardiovascular: Yes: Pulse Irregular, S1, S2 Respiratory: Yes: Scattered rhonchi, no wheeze, diminished on the right Gastrointestinal: Yes: Normal Bowel Sounds, Soft Extremities: Yes: WNL Edema: No Labs: Assessment/Plan Problem List - Problems (1) Severe sepsis Code(s): A41.9 - SEPSIS, UNSPECIFIED ORGANISM; R65.20 - SEVERE SEPSIS WITHOUT SEPTIC SHOCK (2) Afib Code(s): I48.91 - UNSPECIFIED ATRIAL FIBRILLATION (3) COPD (chronic obstructive pulmonary disease) Code(s): J44.9 - CHRONIC OBSTRUCTIVE PULMONARY DISEASE, UNSPECIFIED Qualifiers: COPD type: unspecified COPD Qualified Code(s): J44.9 - Chronic obstructive pulmonary disease, unspecified ASSESSMENT/PLAN: Resolved Septic Shock: suspected source: PNA Squamous cell carcinoma HTN HLD COPD AFib SVC syndrome S/P SVC stent placement BD TX Monitor off systemic steroids AC with Lovenox DC planning Dr Jean
--- NOTE | 2019-09-05 12:26 | PN ---
Progress Note, Physician History of Present Illness: stable on nasal o2 - Current Medication List Current Medications: Active Medications Acetaminophen (Tylenol -) 650 mg PO Q6H PRN PRN Reason: FEVER Last Admin: 09/05/19 06:00 Dose: 650 mg Albuterol/Ipratropium (Duoneb -) 1 amp NEB RQID [facility] Last Admin: 09/05/19 08:00 Dose: 1 amp Cefuroxime Axetil (Ceftin -) 500 mg PO BID [facility] Last Admin: 09/05/19 09:10 Dose: 500 mg Diltiazem HCl (Cardizem Cd -) 120 mg PO DAILY [facility] Last Admin: 09/05/19 09:10 Dose: 120 mg Enoxaparin Sodium (Lovenox -) 90 mg SQ BID [facility] Last Admin: 09/05/19 09:15 Dose: 90 mg Gabapentin (Neurontin -) 300 mg PO BID [facility] Last Admin: 09/05/19 09:10 Dose: 300 mg Oxycodone HCl (Roxicodone -) 10 mg PO Q8H PRN PRN Reason: PAIN LEVEL 4 - 6 Last Admin: 09/05/19 06:01 Dose: 10 mg Pantoprazole Sodium (Protonix -) 40 mg PO DAILY [facility] Last Admin: 09/05/19 09:10 Dose: 40 mg Sotalol HCl (Betapace -) 80 mg PO BID [facility] Last Admin: 09/05/19 09:10 Dose: 80 mg - Objective Vital Signs: Vital Signs Temperature 98.5 F 09/05/19 05:55 Pulse Rate 116 H 09/05/19 05:55 Respiratory Rate 20 09/05/19 05:55 Blood Pressure 103/77 09/05/19 05:55 O2 Sat by Pulse Oximetry (%) 95 09/04/19 21:00 Constitutional: Yes: No Distress Neck: Yes: Supple Cardiovascular: Yes: Regular Rate and Rhythm Respiratory: Yes: Regular, CTA Bilaterally Gastrointestinal: Yes: Normal Bowel Sounds, Soft Musculoskeletal: Yes: WNL Extremities: Yes: WNL Neurological: Yes: Alert, Oriented Psychiatric: Yes: Alert, Oriented Labs: CBC, BMP 09/04/19 06:15 09/04/19 06:15 INR, PTT INR 1.20 (0.83-1.09) H 08/30/19 14:22 Assessment/Plan 64 y/o male with PMH of squamous cell carcinoma (currently receiving chemo therapy last session was July), HTN, HLD, COPD, afib, SVC syndrome s/p stent placement presents to the ED with complaints of fevers and productive cough over the last 3 days find to be in septic shock Problem List - Problems (1) Severe sepsis Code(s): A41.9 - SEPSIS, UNSPECIFIED ORGANISM; R65.20 - SEVERE SEPSIS WITHOUT SEPTIC SHOCK (2) Acute respiratory failure Code(s): J96.00 - ACUTE RESPIRATORY FAILURE, UNSP W HYPOXIA OR HYPERCAPNIA Qualifiers: Respiratory failure complication: hypoxia Qualified Code(s): J96.01 - Acute respiratory failure with hypoxia (3) Afib Code(s): I48.91 - UNSPECIFIED ATRIAL FIBRILLATION (4) Anemia Code(s): D64.9 - ANEMIA, UNSPECIFIED Qualifiers: Anemia type: unspecified type Qualified Code(s): D64.9 - Anemia, unspecified (5) COPD (chronic obstructive pulmonary disease) Code(s): J44.9 - CHRONIC OBSTRUCTIVE PULMONARY DISEASE, UNSPECIFIED Qualifiers: COPD type: unspecified COPD Qualified Code(s): J44.9 - Chronic obstructive pulmonary disease, unspecified (6) HTN (hypertension) Code(s): I10 - ESSENTIAL (PRIMARY) HYPERTENSION Qualifiers: Hypertension type: essential hypertension Qualified Code(s): I10 - Essential (primary) hypertension (7) Leukocytosis Code(s): D72.829 - ELEVATED WHITE BLOOD CELL COUNT, UNSPECIFIED (8) Lung cancer Code(s): C34.90 - MALIGNANT NEOPLASM OF UNSP PART OF UNSP BRONCHUS OR LUNG Qualifiers: Laterality: right Lung location: upper lobe of lung Qualified Code(s): C34.11 - Malignant neoplasm of upper lobe, right bronchus or lung (9) Pneumonia Code(s): J18.9 - PNEUMONIA, UNSPECIFIED ORGANISM Qualifiers: Pneumonia type: due to unspecified organism Laterality: right Lung location: middle lobe of lung Qualified Code(s): J18.9 - Pneumonia, unspecified organism (10) SVC syndrome Code(s): I87.1 - COMPRESSION OF VEIN Assessment/Plan Septic Shock/PNA Acute respiratory failure Lung CA AFIB COPD/Chronic respiratory failure SVC syndrome plan continue current abx organism noted if patient discharged needs to beon augmentin 875 mg po bid for 2 more weeks
--- NOTE | 2019-09-05 17:39 | PN ---
Progress Note (short form) - Note Progress Note: PAtient seen and examined Reports feeling slightly better Last Vital Signs Temp Pulse Resp BP Pulse Ox 98.4 F 107 H 20 103/70 95 09/05/19 13:43 09/05/19 13:43 09/05/19 13:43 09/05/19 13:43 09/04/19 21:00 Cor: RSR, No murmurs, No gallops Lungs: Clear to P&A Abd: Soft, Normal bowel sounds, No organomegaly Ext:No significant edema Labs/Meds reviewed CBC, BMP 09/04/19 06:15 09/04/19 06:15 Current Medications Acetaminophen (Tylenol -) 650 mg PO Q6H PRN PRN Reason: FEVER Last Admin: 09/05/19 14:53 Dose: 650 mg Albuterol/Ipratropium (Duoneb -) 1 amp NEB RQID [facility] Last Admin: 09/05/19 16:06 Dose: 1 amp Cefuroxime Axetil (Ceftin -) 500 mg PO BID [facility] Last Admin: 09/05/19 09:10 Dose: 500 mg Diltiazem HCl (Cardizem Cd -) 120 mg PO DAILY [facility] Last Admin: 09/05/19 09:10 Dose: 120 mg Enoxaparin Sodium (Lovenox -) 90 mg SQ BID [facility] Last Admin: 09/05/19 09:15 Dose: 90 mg Gabapentin (Neurontin -) 300 mg PO BID [facility] Last Admin: 09/05/19 09:10 Dose: 300 mg Oxycodone HCl (Roxicodone -) 10 mg PO Q8H PRN PRN Reason: PAIN LEVEL 4 - 6 Last Admin: 09/05/19 14:53 Dose: 10 mg Pantoprazole Sodium (Protonix -) 40 mg PO DAILY [facility] Last Admin: 09/05/19 09:10 Dose: 40 mg Sotalol HCl (Betapace -) 80 mg PO BID [facility] Last Admin: 09/05/19 09:10 Dose: 80 mg A/P Sepsis- likely pneumonia Locally advanced Squamous cell carcinoma of the lung SVC stent S/P chemotherpy with gemcitibine last admministered in 07/10/2019. To continue with antibiotics per ID. MRI brain pending
--- NOTE | 2019-09-06 10:01 | PN ---
Progress Note, Physician History of Present Illness: stable no new issues - Current Medication List Current Medications: Active Medications Acetaminophen (Tylenol -) 650 mg PO Q6H PRN PRN Reason: FEVER Last Admin: 09/05/19 23:59 Dose: 650 mg Cefuroxime Axetil (Ceftin -) 500 mg PO BID [facility] Last Admin: 09/05/19 21:30 Dose: 500 mg Diltiazem HCl (Cardizem Cd -) 120 mg PO DAILY [facility] Last Admin: 09/05/19 09:10 Dose: 120 mg Enoxaparin Sodium (Lovenox -) 90 mg SQ BID [facility] Last Admin: 09/05/19 21:30 Dose: 90 mg Gabapentin (Neurontin -) 300 mg PO BID [facility] Last Admin: 09/05/19 21:30 Dose: 300 mg Oxycodone HCl (Roxicodone -) 10 mg PO Q8H PRN PRN Reason: PAIN LEVEL 4 - 6 Last Admin: 09/06/19 00:00 Dose: 10 mg Pantoprazole Sodium (Protonix -) 40 mg PO DAILY [facility] Last Admin: 09/05/19 09:10 Dose: 40 mg Sotalol HCl (Betapace -) 80 mg PO BID [facility] Last Admin: 09/05/19 21:34 Dose: 80 mg - Objective Vital Signs: Vital Signs Temperature 99.1 F 09/06/19 05:58 Pulse Rate 110 H 09/06/19 05:58 Respiratory Rate 20 09/06/19 05:58 Blood Pressure 106/71 09/06/19 05:58 O2 Sat by Pulse Oximetry (%) 98 09/05/19 20:44 Constitutional: Yes: No Distress, Calm Cardiovascular: Yes: S1, S2 Respiratory: Yes: Regular, CTA Bilaterally Gastrointestinal: Yes: Normal Bowel Sounds, Soft Musculoskeletal: Yes: WNL Extremities: Yes: WNL Neurological: Yes: Alert, Oriented Labs: CBC, BMP 09/04/19 06:15 09/04/19 06:15 INR, PTT INR 1.20 (0.83-1.09) H 08/30/19 14:22 Assessment/Plan 64 y/o male with PMH of squamous cell carcinoma (currently receiving chemo therapy last session was July), HTN, HLD, COPD, afib, SVC syndrome s/p stent placement presents to the ED with complaints of fevers and productive cough over the last 3 days find to be in septic shock Problem List - Problems (1) Severe sepsis Code(s): A41.9 - SEPSIS, UNSPECIFIED ORGANISM; R65.20 - SEVERE SEPSIS WITHOUT SEPTIC SHOCK (2) Acute respiratory failure Code(s): J96.00 - ACUTE RESPIRATORY FAILURE, UNSP W HYPOXIA OR HYPERCAPNIA Qualifiers: Respiratory failure complication: hypoxia Qualified Code(s): J96.01 - Acute respiratory failure with hypoxia (3) Afib Code(s): I48.91 - UNSPECIFIED ATRIAL FIBRILLATION (4) Anemia Code(s): D64.9 - ANEMIA, UNSPECIFIED Qualifiers: Anemia type: unspecified type Qualified Code(s): D64.9 - Anemia, unspecified (5) COPD (chronic obstructive pulmonary disease) Code(s): J44.9 - CHRONIC OBSTRUCTIVE PULMONARY DISEASE, UNSPECIFIED Qualifiers: COPD type: unspecified COPD Qualified Code(s): J44.9 - Chronic obstructive pulmonary disease, unspecified (6) HTN (hypertension) Code(s): I10 - ESSENTIAL (PRIMARY) HYPERTENSION Qualifiers: Hypertension type: essential hypertension Qualified Code(s): I10 - Essential (primary) hypertension (7) Leukocytosis Code(s): D72.829 - ELEVATED WHITE BLOOD CELL COUNT, UNSPECIFIED (8) Lung cancer Code(s): C34.90 - MALIGNANT NEOPLASM OF UNSP PART OF UNSP BRONCHUS OR LUNG Qualifiers: Laterality: right Lung location: upper lobe of lung Qualified Code(s): C34.11 - Malignant neoplasm of upper lobe, right bronchus or lung (9) Pneumonia Code(s): J18.9 - PNEUMONIA, UNSPECIFIED ORGANISM Qualifiers: Pneumonia type: due to unspecified organism Laterality: right Lung location: middle lobe of lung Qualified Code(s): J18.9 - Pneumonia, unspecified organism (10) SVC syndrome Code(s): I87.1 - COMPRESSION OF VEIN Assessment/Plan Septic Shock/PNA Acute respiratory failure Lung CA AFIB COPD/Chronic respiratory failure SVC syndrome plan continue current abx organism noted
[2019-09-06] MEDS ORDERED: PT OWN MED DRAWER 7, Y5N ONE (11:19)
[2019-09-06] MEDS: SOTALOL HCL 80 MG TABLET (FP) PO SCH (11:21)
[2019-09-06] MEDS: PANTOPRAZOLE 40 MG TABLET PO SCH (11:22)
[2019-09-06] MEDS: oxyCODONE HCL 5 MG TABLET PO PRN ×2 (11:22)
[2019-09-06] MEDS: CEFUROXIME AXETIL 500 MG TABLET PO SCH (11:22)
[2019-09-06] MEDS: GABAPENTIN 300 MG CAPSULE PO SCH (11:22)
[2019-09-06] MEDS: ENOXAPARIN NA (PORCINE) 100 MG/1 ML DISP.SYRIN SQ SCH (11:25)
--- NOTE | 2019-09-06 11:47 | DS ---
Physical Examination Vital Signs: Vital Signs Temperature 99.1 F 09/06/19 05:58 Pulse Rate 110 H 09/06/19 05:58 Respiratory Rate 20 09/06/19 05:58 Blood Pressure 106/71 09/06/19 05:58 O2 Sat by Pulse Oximetry (%) 98 09/05/19 20:44 Findings/Remarks: (1) Severe sepsis Assessment/Plan: ID on board no leukocytosis dc Vancomycin, Zosyn--po ceftin now for 6.5 days BC neg UC neg Sputum culture prelim positive Urine Legionella neg CXR shows R effusion with R infiltrate, R vascular stent Chest CT scan shows partially loculated R pleural effusion which currently appears moderate, R hilar/perihilar mass lesion noted with at least partial occlusionof RUL and lower lobe bronchi, RUL interstitial thickening on basis of lymphangitic neoplastic disease, interval development RLL opacity probably on basis atelectasis, interval enlargement of several small left upper lobe and LLL pulmonary nodules LA 2.0 Code(s): A41.9 - SEPSIS, UNSPECIFIED ORGANISM; R65.20 - SEVERE SEPSIS WITHOUT SEPTIC SHOCK (2) Acute kidney injury Assessment/Plan: resolved BUN/Cr 4.1/0.7 monitor renal function daily Code(s): N17.9 - ACUTE KIDNEY FAILURE, UNSPECIFIED (3) Afib Assessment/Plan: Enoxaparin BID Cardizem for rate control Code(s): I48.91 - UNSPECIFIED ATRIAL FIBRILLATION (4) Anemia Assessment/Plan: Hg 10.9 monitor Hg daily transfuse for Hg <7.0 to avoid fluid overload anemia profile Code(s): D64.9 - ANEMIA, UNSPECIFIED Qualifiers: Anemia type: unspecified type Qualified Code(s): D64.9 - Anemia, unspecified (5) COPD (chronic obstructive pulmonary disease) Assessment/Plan: Pulmonary on board keep SpO2 >90% O2 via NC bronchodilators Code(s): J44.9 - CHRONIC OBSTRUCTIVE PULMONARY DISEASE, UNSPECIFIED Qualifiers: COPD type: unspecified COPD Qualified Code(s): J44.9 - Chronic obstructive pulmonary disease, unspecified (6) DVT (deep venous thrombosis) Assessment/Plan: Enoxaparin Code(s): I82.409 - ACUTE EMBOLISM AND THOMBOS UNSP DEEP VN UNSP LOWER EXTREMITY Qualifiers: DVT location: upper extremity Affected thrombotic vein of extremity: other upper extremity vein Chronicity: acute Laterality: right Qualified Code(s) : I82.621 - Acute embolism and thrombosis of deep veins of right upper extremity (7) HTN (hypertension) Assessment/Plan: Cardizem, Sotalol low Na diet Code(s): I10 - ESSENTIAL (PRIMARY) HYPERTENSION Qualifiers: Hypertension type: essential hypertension Qualified Code(s): I10 - Essential (primary) hypertension (8) Lactic acidosis Assessment/Plan: LA 2.0 Code(s): E87.2 - ACIDOSIS (9) Lung cancer Assessment/Plan: Oncology on board Chest CT scan shows partially loculated R pleural effusion which currently appears moderate, R hilar/perihilar mass lesion noted with at least partial occlusionof RUL and lower lobe bronchi, RUL interstitial thickening on basis of lymphangitic neoplastic disease, interval development RLL opacity probably on basis atelectasis, interval enlargement of several small left upper lobe and LLL pulmonary nodules pending Brain MRI Code(s): C34.90 - MALIGNANT NEOPLASM OF UNSP PART OF UNSP BRONCHUS OR LUNG Qualifiers: Laterality: right Lung location: upper lobe of lung Qualified Code(s): C34.11 - Malignant neoplasm of upper lobe, right bronchus or lung Constitutional: Yes: Well Nourished, No Distress, Calm Cardiovascular: Yes: Regular Rate and Rhythm Respiratory: Yes: Regular Gastrointestinal: Yes: Normal Bowel Sounds, Soft Renal/: Yes: WNL Musculoskeletal: Yes: WNL Extremities: Yes: WNL Labs: CBC, BMP 09/04/19 06:15 09/04/19 06:15 Discharge Summary Problems reviewed: Yes Reason For Visit: SEVER SEPSIS Current Active Problems Severe sepsis (Acute) Laboratory Last Values WBC 5.0 K/mm3 (4.0-10.0) 09/04/19 06:15 RBC 3.74 M/mm3 (4.00-5.60) L 09/04/19 06:15 Hgb 11.6 GM/dL (11.7-16.9) L 09/04/19 06:15 Hct 35.4 % (35.4-49) 09/04/19 06:15 MCV 94.5 fl (80-96) 09/04/19 06:15 MCH 30.9 pg (25.7-33.7) 09/04/19 06:15 MCHC 32.7 g/dl (32.0-35.9) 09/04/19 06:15 RDW 17.8 % (11.9-15.9) H 09/04/19 06:15 Plt Count 191 K/MM3 (134-434) 09/04/19 06:15 MPV 7.5 fl (7.5-11.1) 09/04/19 06:15 Absolute Neuts (auto) 3.3 K/mm3 (1.5-8.0) 09/01/19 07:15 Neutrophils % 63.0 % (42.8-82.8) 09/01/19 07:15 Lymphocytes % 25.2 % (8-40) D 09/01/19 07:15 Monocytes % 10.4 % (3.8-10.2) H 09/01/19 07:15 Eosinophils % 1.1 % (0-4.5) D 09/01/19 07:15 Basophils % 0.3 % (0-2.0) 09/01/19 07:15 Nucleated RBC % 0 % (0-0) 09/01/19 07:15 Platelet Estimate Decreased 08/30/19 14:22 Platelet Comment No clumping noted 08/30/19 14:22 PT with INR 14.20 SEC (9.7-13.0) H 08/30/19 14:22 INR 1.20 (0.83-1.09) H 08/30/19 14:22 PTT (Actin FS) 34.4 SECONDS (25.2-36.5) 08/30/19 14:22 VBG pH 7.38 (7.31-7.41) 08/30/19 14:22 POC VBG pCO2 53.7 mmHg (38-52) H 08/30/19 14:22 POC VBG pO2 < 49 mmHg (28-48) H 08/30/19 14:22 VBG HCO3 30.9 mmol/L (23-29) H 08/30/19 14:22 VBG O2 Sat (Wang) 57.0 % (70-80) L 08/30/19 14:22 VBG Base Excess 4.0 meq/l (-2-2) H 08/30/19 14:22 Sodium 138 mmol/L (136-145) 09/04/19 06:15 Potassium 3.7 mmol/L (3.5-5.1) 09/04/19 06:15 Chloride 104 mmol/L (98-107) 09/04/19 06:15 Carbon Dioxide 29 mmol/L (21-32) 09/04/19 06:15 Anion Gap 6 MMOL/L (8-16) L 09/04/19 06:15 BUN 4.1 mg/dL (7-18) L 09/04/19 06:15 Creatinine 0.8 mg/dL (0.55-1.3) 09/04/19 06:15 Est GFR (CKD-EPI)AfAm 109.42 09/04/19 06:15 Est GFR (CKD-EPI)NonAf 94.41 09/04/19 06:15 Random Glucose 91 mg/dL (74-106) 09/04/19 06:15 Hemoglobin A1c % 6.6 % (4.2-6.3) H 08/31/19 05:35 Lactic Acid 2.0 mmol/L (0.4-2.0) 08/30/19 14:22 Calcium 8.2 mg/dL (8.5-10.1) L 09/04/19 06:15 Phosphorus 2.6 mg/dL (2.5-4.9) 09/01/19 07:15 Magnesium 2.1 mg/dL (1.8-2.4) 09/01/19 07:15 Total Bilirubin 0.5 mg/dL (0.2-1) 09/04/19 06:15 AST 13 U/L (15-37) L 09/04/19 06:15 ALT 22 U/L (13-61) 09/04/19 06:15 Alkaline Phosphatase 43 U/L (45-117) L 09/04/19 06:15 Creatine Kinase 20 U/L (26-308) L 08/30/19 20:10 Troponin I < 0.02 ng/ml (0.00-0.05) 08/31/19 16:15 Total Protein 6.0 g/dl (6.4-8.2) L 09/04/19 06:15 Albumin 2.5 g/dl (3.4-5.0) L 09/04/19 06:15 Lipase 49 U/L (73-393) L 08/30/19 14:22 TSH 0.24 uIU/ml (0.358-3.74) L D 08/31/19 05:35 Urine Color Yellow 08/30/19 16:05 Urine Appearance Clear 08/30/19 16:05 Urine pH 7.0 (5.0-8.0) 08/30/19 16:05 Ur Specific [place] 1.022 (1.010-1.035) 08/30/19 16:05 Urine Protein Trace (NEGATIVE) 08/30/19 16:05 Urine Glucose (UA) Negative (NEGATIVE) 08/30/19 16:05 Urine Ketones Negative (NEGATIVE) 08/30/19 16:05 Urine Blood Negative (NEGATIVE) 08/30/19 16:05 Urine Nitrite Negative (NEGATIVE) 08/30/19 16:05 Urine Bilirubin Negative (NEGATIVE) 08/30/19 16:05 Urine Urobilinogen 1.0 mg/dL (0.2-1.0) 08/30/19 16:05 Ur Leukocyte Esterase Negative (NEGATIVE) 08/30/19 16:05 Vancomycin Pre-Dose 5.4 ug/ml (5-10) 09/03/19 13:04 Influenza A (Rapid) Negative (Negative) 08/30/19 15:26 Influenza B (Rapid) Negative (Negative) 08/30/19 15:26 Microbiology 08/30/19 14:10 Blood - Peripheral Venous Blood Culture - Final NO GROWTH AFTER 5 DAYS INCUBATION 08/30/19 14:22 Blood - Peripheral Venous Blood Culture - Final NO GROWTH AFTER 5 DAYS INCUBATION 08/31/19 11:10 Sputum - Expectorated Gram Stain - Final 08/31/19 11:10 Sputum - Expectorated Sputum Culture - Final Citrobacter Koseri Staphylococcus Aureus 08/30/19 16:05 Urine - Urine Clean Catch Urine Culture - Final NO GROWTH OBTAINED 08/30/19 23:30 Urine For Antigen Detection Legionella Antigen - Final 08/30/19 23:30 Urine For Antigen Detection Streptococcus pneumoniae Antigen (M - Final Vital Signs Temp 99.1 F 09/06/19 05:58 Pulse 110 H 09/06/19 05:58 Resp 20 09/06/19 05:58 BP 106/71 09/06/19 05:58 Pulse Ox 98 09/05/19 20:44 Intake & Output 09/05/19 09/05/19 09/06/19 11:59 23:59 11:59 Intake Total 1500 520 650 Output Total 250 Balance 1500 270 650 Weight 89.386 kg 89.074 kg Intake: IV 900 150 Normal Saline - 1,000 ml 900 150 @ 75 mls/hr IV ASDIR ALONDRA Rx#:[id number] IVPB 250 Oral 350 370 650 Output: Urine 250 Void 250 Other: Voiding Method Urinal Toilet Urinal # Unmeasured Voids Void 350 Bowel Movement Yes No No Weight Measurement Method Built in [facility] Built in [facility] Hospital Course: - Problems (1) Severe sepsis Assessment/Plan: ID on board no leukocytosis dc Vancomycin, Zosyn--po ceftin BC neg UC neg Sputum culture prelim positive Urine Legionella neg CXR shows R effusion with R infiltrate, R vascular stent Chest CT scan shows partially loculated R pleural effusion which currently appears moderate, R hilar/perihilar mass lesion noted with at least partial occlusionof RUL and lower lobe bronchi, RUL interstitial thickening on basis of lymphangitic neoplastic disease, interval development RLL opacity probably on basis atelectasis, interval enlargement of several small left upper lobe and LLL pulmonary nodules LA 2.0 Code(s): A41.9 - SEPSIS, UNSPECIFIED ORGANISM; R65.20 - SEVERE SEPSIS WITHOUT SEPTIC SHOCK (2) Acute kidney injury Assessment/Plan: resolved BUN/Cr 4.1/0.7 monitor renal function daily Code(s): N17.9 - ACUTE KIDNEY FAILURE, UNSPECIFIED (3) Afib Assessment/Plan: Enoxaparin BID Cardizem for rate control Code(s): I48.91 - UNSPECIFIED ATRIAL FIBRILLATION (4) Anemia Assessment/Plan: Hg 10.9 monitor Hg daily transfuse for Hg <7.0 to avoid fluid overload anemia profile Code(s): D64.9 - ANEMIA, UNSPECIFIED Qualifiers: Anemia type: unspecified type Qualified Code(s): D64.9 - Anemia, unspecified (5) COPD (chronic obstructive pulmonary disease) Assessment/Plan: Pulmonary on board keep SpO2 >90% O2 via NC bronchodilators Code(s): J44.9 - CHRONIC OBSTRUCTIVE PULMONARY DISEASE, UNSPECIFIED Qualifiers: COPD type: unspecified COPD Qualified Code(s): J44.9 - Chronic obstructive pulmonary disease, unspecified (6) DVT (deep venous thrombosis) Assessment/Plan: Enoxaparin Code(s): I82.409 - ACUTE EMBOLISM AND THOMBOS UNSP DEEP VN UNSP LOWER EXTREMITY Qualifiers: DVT location: upper extremity Affected thrombotic vein of extremity: other upper extremity vein Chronicity: acute Laterality: right Qualified Code(s) : I82.621 - Acute embolism and thrombosis of deep veins of right upper extremity (7) HTN (hypertension) Assessment/Plan: Cardizem, Sotalol low Na diet Code(s): I10 - ESSENTIAL (PRIMARY) HYPERTENSION Qualifiers: Hypertension type: essential hypertension Qualified Code(s): I10 - Essential (primary) hypertension (8) Lactic acidosis Assessment/Plan: LA 2.0 Code(s): E87.2 - ACIDOSIS (9) Lung cancer Assessment/Plan: Oncology on board Chest CT scan shows partially loculated R pleural effusion which currently appears moderate, R hilar/perihilar mass lesion noted with at least partial occlusionof RUL and lower lobe bronchi, RUL interstitial thickening on basis of lymphangitic neoplastic disease, interval development RLL opacity probably on basis atelectasis, interval enlargement of several small left upper lobe and LLL pulmonary nodules pending Brain MRI Code(s): C34.90 - MALIGNANT NEOPLASM OF UNSP PART OF UNSP BRONCHUS OR LUNG Qualifiers: Laterality: right Lung location: upper lobe of lung Qualified Code(s): C34.11 - Malignant neoplasm of upper lobe, right bronchus or lung Condition: Stable - Instructions Referrals: Wili Hathaway MD [Primary Care Provider] - Disposition: HOME - Home Medications Comprehensive Discharge Medication List: Ambulatory Orders Sotalol HCl [Betapace -] 80 mg PO BID tablet 04/29/18 Diltiazem Cd [Cardizem Cd -] 120 mg PO DAILY #30 cap.cd.24h 05/05/18 Ondansetron HCl [Zofran] 8 mg PO TID 11/24/18 Morphine *Sr* [MS Contin -] 30 mg PO Q12H 11/25/18 Enoxaparin [Lovenox -] 90 mg SQ BID 03/28/19 Gabapentin 300 mg PO BID 03/28/19 Pantoprazole Sodium [Protonix] 40 mg PO DAILY 03/28/19 Lactobacillus Acidophilus [Bacid -] 1 tab PO DAILY #14 tab 04/06/19 Albuterol 0.083% Nebulizer Moon [Ventolin 0.083% Nebulizer Soln -] 1 amp NEB Q6H PRN amp 07/28/19 Albuterol 2.5/Ipratropium 0.5 [Duoneb -] 1 amp NEB RQID amp 07/28/19 oxyCODONE HCL [Roxicodone -] 10 mg PO Q8H PRN tablet MDD 4 07/28/19 Cefuroxime Axetil [Ceftin -] 500 mg PO BID #14 tablet 09/05/19 Prescription Drug Monitoring Program (I-STOP) results: I-STOP reviewed and no issues identified
--- NOTE | 2019-09-06 14:28 | PN ---
Progress Note (short form) - Note Progress Note: PULMONARY States breathing is better. No fevers. +nonproductive cough. Vital Signs Period Temp Pulse Resp BP Sys/Gtz Pulse Ox Last 24 Hr 98.4 F-99.1 F 110-131 16-20 92-115/59-76 98 Gen: NAD at rest Heart: RRR Lung: decreased breath sounds right Abd: soft, nontender Ext: no edema CBC, BMP 09/04/19 06:15 09/04/19 06:15 Active Medications Acetaminophen (Tylenol -) 650 mg PO Q6H PRN PRN Reason: FEVER Last Admin: 09/05/19 23:59 Dose: 650 mg Cefuroxime Axetil (Ceftin -) 500 mg PO BID [facility] Last Admin: 09/06/19 11:22 Dose: 500 mg Diltiazem HCl (Cardizem Cd -) 120 mg PO DAILY [facility] Last Admin: 09/06/19 11:22 Dose: 120 mg Enoxaparin Sodium (Lovenox -) 90 mg SQ BID [facility] Last Admin: 09/06/19 11:25 Dose: 90 mg Gabapentin (Neurontin -) 300 mg PO BID [facility] Last Admin: 09/06/19 11:22 Dose: 300 mg Oxycodone HCl (Roxicodone -) 10 mg PO Q8H PRN PRN Reason: PAIN LEVEL 4 - 6 Last Admin: 09/06/19 11:22 Dose: 10 mg Pantoprazole Sodium (Protonix -) 40 mg PO DAILY [facility] Last Admin: 09/06/19 11:22 Dose: 40 mg Sotalol HCl (Betapace -) 80 mg PO BID [facility] Last Admin: 09/06/19 11:21 Dose: 80 mg A/P Pneumonia Sepsis improving NSCLC (Squamous) Chronic Hypoxic Respiratory Failure HTN Hyperlipidemia COPD Paroxysmal Atrial Fibrillation SVC Syndrome s/p SVC stent Anemia - complete antibiotics - rate controlled - continue anticoagulation - O2 to keep SpO2 >90%
[2019-09-06 14:54] VITALS: BP 105/78; PULSE 122; TEMP 97.9
--- NOTE | 2019-09-06 16:27 | PN ---
Progress Note (short form) - Note Progress Note: Called by patients RN for removal of Rt femoral central line placed in ER for pt that is being discharged. Central line was removed at bedside and appeared fully intact. Bleeding was minimal and clean dressing was placed. Pt. tolerated procedure well. RN aware.
== END 2019-09-06 17:05 | disposition home or self-care (01) | DRG 871 ==
LOC: JER 13:46 → JICU 15:06 → J6S 08-31 19:57
PROVIDERS: ADMIT Internal Medicine; ATTEND Family Medicine
PROC: 06HM33Z Insertion of Infusion Device into Right Femoral Vein, Percutaneous Approach (ICD-10-PCS; principal; 2019-08-30)
DX: A41.9 Sepsis, unspecified organism (principal); R65.21 Severe sepsis with septic shock; J18.9 Pneumonia, unspecified organism; Q79.1 Other congenital malformations of diaphragm; J96.01 Acute respiratory failure with hypoxia; C34.90 Malignant neoplasm of unspecified part of unspecified bronchus or lung; N17.9 Acute kidney failure, unspecified; I82.409 Acute embolism and thrombosis of unspecified deep veins of unspecified lower extremity; E87.2 Acidosis; I87.1 Compression of vein; J98.11 Atelectasis; J90 Pleural effusion, not elsewhere classified; J44.9 Chronic obstructive pulmonary disease, unspecified; I95.9 Hypotension, unspecified; I10 Essential (primary) hypertension; I48.0 Paroxysmal atrial fibrillation; D64.9 Anemia, unspecified; E78.5 Hyperlipidemia, unspecified; R00.0 Tachycardia, unspecified; J98.4 Other disorders of lung; A49.01 Methicillin susceptible Staphylococcus aureus infection, unspecified site; B19.20 Unspecified viral hepatitis C without hepatic coma; F11.21 Opioid dependence, in remission; F12.21 Cannabis dependence, in remission; Z86.39 Personal history of other endocrine, nutritional and metabolic disease; Z87.891 Personal history of nicotine dependence; Z95.5 Presence of coronary angioplasty implant and graft; Z79.01 Long term (current) use of anticoagulants
CPT/HCPCS: 36415; 70552-TC; 71045-TC-FY; 71250-TC; 80048; 80053; 81003; 82550; 82803; 83036; 83605; 83690; 83735; 84100; 84443; 84484; 85025; 85027; 85610; 85730; 87040; 87070; 87086; 87186; 87205; 87804; 87899; 93005; 93010; 94640; 97116-GP; 97161-GP; 99285-25; G0480; J7030

== ENCOUNTER 2019-12-11 07:23 | Day surgery (SDC) | payer BC, OTHER ==
[2019-12-11] MEDS ORDERED: DEXAMETHASONE SODIUM PHOSPHATE 4 MG in SODIUM CHLORIDE 50 ML IVPB ONE (10:00)
[2019-12-11] MEDS ORDERED: NIVOLUMAB 240 MG in SODIUM CHLORIDE 100 ML IVPB ONE (10:30)
[2019-12-11] MEDS ORDERED: SODIUM CHLORIDE 0.9% 500 ML INFUS.BAG IV ONE (10:50)
[2019-12-11 11:35] LABS: BASO % 0.7 % (0-2.0); EOS % 2.7 % (0-4.5); HEMATOCRIT 38.4 % (35.4-49); HEMOGLOBIN 12.8 GM/dL (11.7-16.9); LYMPH % 27.2 % (8-40); MCH 28.4 pg (25.7-33.7); MCHC 33.2 g/dl (32.0-35.9); MEAN CELL VOLUME 85.4 fl (80-96); MEAN PLT VOLUME 7.7 fl (7.5-11.1); MONO % 9.6 % (3.8-10.2); NEUT % 59.8 % (42.8-82.8); PLATELET COUNT 234 K/MM3 (134-434); RDW 14.4 % (11.9-15.9); WHITE BLOOD COUNT 4.2 K/mm3 (4.0-10.0)
[2019-12-11 12:14] LABS: ALBUMIN 3.4 g/dl (3.4-5.0); BILIRUBIN,DIRECT 0.1 mg/dL (0.0-0.2); BILIRUBIN,TOTAL 0.3 mg/dL (0.2-1); BLOOD UREA NITROGEN 6.7 mg/dL (7-18); CALCIUM 9.1 mg/dL (8.5-10.1); CREATININE 0.8 mg/dL (0.55-1.3); POTASSIUM 3.4 mmol/L (3.5-5.1); TOT PROT 7.2 g/dl (6.4-8.2)
[2019-12-11] MEDS ORDERED: POTASSIUM CHLORIDE TABS 20 MEQ TABLET.ER (FP) PO ONE (12:23)
[2019-12-11 15:51] VITALS: BP 101/71; PULSE 80; TEMP 98.1
== END 2019-12-11 13:55 | disposition home or self-care (01) ==
LOC: JRADIR 07:23
PROVIDERS: ATTEND Internal Medicine Hematology & Oncology
PROC: 3E04305 Introduction of Other Antineoplastic into Central Vein, Percutaneous Approach (ICD-10-PCS; principal; 2019-12-11)
PROC: 02HV33Z Insertion of Infusion Device into Superior Vena Cava, Percutaneous Approach (ICD-10-PCS; 2019-12-11)
PROC: B518ZZA Fluoroscopy of Superior Vena Cava, Guidance (ICD-10-PCS; 2019-12-11)
DX: Z51.11 Encounter for antineoplastic chemotherapy (principal); C34.90 Malignant neoplasm of unspecified part of unspecified bronchus or lung
CPT/HCPCS: 36415; 36569; 36573; 77001-TC-FY; 80048; 80076; 82150; 83690; 83735; 84439; 84443; 85025; 96361; 96375; 96413; C1751; J9299

== ENCOUNTER 2019-12-25 06:23 | Day surgery (SDC) | payer BC, OTHER ==
[2019-12-25] MEDS ORDERED: DEXAMETHASONE INJECTION 4 MG in SODIUM CHLORIDE 50 ML IVPB ONE (10:00)
[2019-12-25] MEDS ORDERED: NIVOLUMAB 240 MG in SODIUM CHLORIDE 100 ML IVPB ONE (10:30)
[2019-12-25 11:15] LABS: BASO % 0.7 % (0-2.0); EOS % 2.9 % (0-4.5); HEMATOCRIT 39.3 % (35.4-49); HEMOGLOBIN 12.8 GM/dL (11.7-16.9); LYMPH % 36.4 % (8-40); MCH 27.9 pg (25.7-33.7); MCHC 32.5 g/dl (32.0-35.9); MEAN CELL VOLUME 85.7 fl (80-96); MEAN PLT VOLUME 7.4 fl (7.5-11.1); MONO % 10.8 % (3.8-10.2); NEUT % 49.2 % (42.8-82.8); PLATELET COUNT 268 K/MM3 (134-434); RBC 4.58 M/mm3 (4.00-5.60); RDW 14.8 % (11.9-15.9); WHITE BLOOD COUNT 4.2 K/mm3 (4.0-10.0)
[2019-12-25] MEDS ORDERED: SODIUM CHLORIDE 0.9% 500 ML INFUS.BAG IV ONE ×3 (11:48→14:32)
[2019-12-25 11:53] LABS: ALBUMIN 3.8 g/dl (3.4-5.0); BILIRUBIN,DIRECT 0.1 mg/dL (0.0-0.2); BILIRUBIN,TOTAL 0.4 mg/dL (0.2-1); BLOOD UREA NITROGEN 7.2 mg/dL (7-18); CALCIUM 9.6 mg/dL (8.5-10.1); POTASSIUM 3.8 mmol/L (3.5-5.1); TOT PROT 7.4 g/dl (6.4-8.2)
[2019-12-25 16:34] VITALS: TEMP 97.4
[2019-12-25 17:05] VITALS: BP 87/51; PULSE 77
== END 2019-12-25 15:30 | disposition home or self-care (01) ==
LOC: JRADIR 06:23
PROVIDERS: ATTEND Internal Medicine Hematology & Oncology
PROC: 3E04305 Introduction of Other Antineoplastic into Central Vein, Percutaneous Approach (ICD-10-PCS; principal; 2019-12-25)
PROC: 02HV33Z Insertion of Infusion Device into Superior Vena Cava, Percutaneous Approach (ICD-10-PCS; 2019-12-25)
PROC: B518ZZA Fluoroscopy of Superior Vena Cava, Guidance (ICD-10-PCS; 2019-12-25)
DX: Z51.11 Encounter for antineoplastic chemotherapy (principal); C34.90 Malignant neoplasm of unspecified part of unspecified bronchus or lung
CPT/HCPCS: 36415; 36569; 36573; 77001-TC-FY; 80048; 80076; 82150; 83690; 83735; 84439; 84443; 85025; 96361; 96367; 96413; C1751; J1100; J9299

== ENCOUNTER 2020-01-15 07:23 | Day surgery (SDC) | payer BC, OTHER ==
[2020-01-15] MEDS ORDERED: SODIUM CHLORIDE 250 ML IV ONE (09:00)
[2020-01-15] MEDS ORDERED: DEXAMETHASONE SODIUM PHOSPHATE 4 MG in SODIUM CHLORIDE 50 ML IVPB ONE (09:30)
[2020-01-15] MEDS ORDERED: NIVOLUMAB 240 MG in SODIUM CHLORIDE 100 ML IVPB ONE (10:00)
[2020-01-15] MEDS ORDERED: SODIUM CHLORIDE 0.9% 500 ML INFUS.BAG IV ONE (11:47)
[2020-01-15 11:59] LABS: EOS % 1.9 % (0-4.5); HEMATOCRIT 38.2 % (35.4-49); HEMOGLOBIN 12.7 GM/dL (11.7-16.9); MCH 28.3 pg (25.7-33.7); MCHC 33.3 g/dl (32.0-35.9); MEAN PLT VOLUME 7.7 fl (7.5-11.1); MONO % 12.2 % (3.8-10.2); NEUT % 54.9 % (42.8-82.8); PLATELET COUNT 202 K/MM3 (134-434); RBC 4.49 M/mm3 (4.00-5.60); RDW 14.6 % (11.9-15.9); WHITE BLOOD COUNT 4.3 K/mm3 (4.0-10.0)
[2020-01-15 12:53] LABS: ALBUMIN 3.3 g/dl (3.4-5.0); BILIRUBIN,DIRECT 0.1 mg/dL (0.0-0.2); BILIRUBIN,TOTAL 0.3 mg/dL (0.2-1); BLOOD UREA NITROGEN 8.4 mg/dL (7-18); CREATININE 0.9 mg/dL (0.55-1.3); MAGNESIUM 1.9 mg/dL (1.8-2.4); POTASSIUM 3.8 mmol/L (3.5-5.1)
[2020-01-15 16:59] VITALS: TEMP 97.8
[2020-01-15 17:07] VITALS: BP 114/73; PULSE 75
== END 2020-01-15 15:40 | disposition home or self-care (01) ==
LOC: JRADIR 07:23
PROVIDERS: ATTEND Internal Medicine Hematology & Oncology
PROC: 3E04305 Introduction of Other Antineoplastic into Central Vein, Percutaneous Approach (ICD-10-PCS; principal; 2020-01-15)
PROC: 02HV33Z Insertion of Infusion Device into Superior Vena Cava, Percutaneous Approach (ICD-10-PCS; 2020-01-15)
PROC: B518ZZA Fluoroscopy of Superior Vena Cava, Guidance (ICD-10-PCS; 2020-01-15)
DX: Z51.11 Encounter for antineoplastic chemotherapy (principal); C34.90 Malignant neoplasm of unspecified part of unspecified bronchus or lung
CPT/HCPCS: 36415; 36569; 77001-TC-FY; 80048; 80076; 82150; 83690; 83735; 84439; 84443; 85025; C1751; J9299

== ENCOUNTER 2020-01-29 07:14 | Day surgery (SDC) | payer BC, OTHER ==
[2020-01-29] MEDS ORDERED: SODIUM CHLORIDE 250 ML IV ONE ×2 (09:00→11:00)
[2020-01-29] MEDS ORDERED: DEXAMETHASONE SODIUM PHOSPHATE 4 MG in SODIUM CHLORIDE 50 ML IVPB ONE (09:30)
[2020-01-29] MEDS ORDERED: NIVOLUMAB 240 MG in SODIUM CHLORIDE 100 ML IVPB ONE (10:00)
[2020-01-29 11:22] LABS: BASO % 0.8 % (0-2.0); EOS % 1.6 % (0-4.5); HEMATOCRIT 38.9 % (35.4-49); LYMPH % 23.5 % (8-40); MCH 27.8 pg (25.7-33.7); MCHC 33.3 g/dl (32.0-35.9); MEAN CELL VOLUME 83.4 fl (80-96); MEAN PLT VOLUME 7.8 fl (7.5-11.1); MONO % 10.1 % (3.8-10.2); PLATELET COUNT 200 K/MM3 (134-434); RBC 4.66 M/mm3 (4.00-5.60); RDW 14.7 % (11.9-15.9); WHITE BLOOD COUNT 3.9 K/mm3 (4.0-10.0)
[2020-01-29 11:53] LABS: ALBUMIN 3.5 g/dl (3.4-5.0); BILIRUBIN,DIRECT 0.1 mg/dL (0.0-0.2); BILIRUBIN,TOTAL 0.4 mg/dL (0.2-1); BLOOD UREA NITROGEN 8.3 mg/dL (7-18); CALCIUM 9.6 mg/dL (8.5-10.1); CREATININE 0.9 mg/dL (0.55-1.3); MAGNESIUM 2.2 mg/dL (1.8-2.4); POTASSIUM 3.5 mmol/L (3.5-5.1); TOT PROT 7.4 g/dl (6.4-8.2)
[2020-01-29 17:36] VITALS: TEMP 97.8
[2020-01-29 17:38] VITALS: BP 90/64; PULSE 92
[2020-01-31 08:20] LABS: EPI CELLS 18 /uL (0-25.1); HYALINE CASTS 11 /uL (0-3.1); PH,URINE 5.5 (5.0-8.0); URINE APPEARANCE CLOUDY; URINE BILIRUBIN NEGATIVE (NEGATIVE); URINE COLOR DK YELLOW; URINE GLUCOSE (UA) NEGATIVE (NEGATIVE); URINE KETONE NEGATIVE (NEGATIVE); URINE LEUK ESTERASE NEGATIVE (NEGATIVE); URINE NITRITE POSITIVE (NEGATIVE); URINE PROTEIN TRACE (NEGATIVE); URINE RBC 5 /uL (0-23.9); URINE WBC 10 /uL (0-25.8)
== END 2020-01-29 16:00 | disposition home or self-care (01) ==
LOC: JRADIR 07:14
PROVIDERS: ATTEND Internal Medicine Hematology & Oncology
PROC: 02HV33Z Insertion of Infusion Device into Superior Vena Cava, Percutaneous Approach (ICD-10-PCS; principal; 2020-01-29)
PROC: B518ZZA Fluoroscopy of Superior Vena Cava, Guidance (ICD-10-PCS; 2020-01-29)
PROC: 3E04305 Introduction of Other Antineoplastic into Central Vein, Percutaneous Approach (ICD-10-PCS; 2020-01-29)
DX: Z51.11 Encounter for antineoplastic chemotherapy (principal); C34.90 Malignant neoplasm of unspecified part of unspecified bronchus or lung
CPT/HCPCS: 36415; 36569; 77001-TC-FY; 80048; 80076; 81003; 82150; 83690; 83735; 84439; 84443; 85025; 87086; 87186; C1751; J9299

== ENCOUNTER 2020-02-12 07:44 | Day surgery (SDC) | payer BC, OTHER ==
[2020-02-12] MEDS ORDERED: SODIUM CHLORIDE 250 ML IV ONE ×2 (10:00→11:00)
[2020-02-12] MEDS ORDERED: DEXAMETHASONE SODIUM PHOSPHATE 4 MG in DEXTROSE 5%-WATER - 50 ML IVPB ONE (10:00)
[2020-02-12] MEDS ORDERED: NIVOLUMAB 240 MG in SODIUM CHLORIDE 100 ML IVPB ONE (10:30)
[2020-02-12 12:08] LABS: BASO % 0.7 % (0-2.0); EOS % 2.1 % (0-4.5); HEMATOCRIT 37.8 % (35.4-49); HEMOGLOBIN 12.4 GM/dL (11.7-16.9); LYMPH % 25.7 % (8-40); MCHC 32.7 g/dl (32.0-35.9); MEAN CELL VOLUME 82.7 fl (80-96); MEAN PLT VOLUME 7.6 fl (7.5-11.1); MONO % 10.3 % (3.8-10.2); NEUT % 61.2 % (42.8-82.8); PLATELET COUNT 236 K/MM3 (134-434); RBC 4.57 M/mm3 (4.00-5.60); RDW 14.6 % (11.9-15.9); WHITE BLOOD COUNT 4.4 K/mm3 (4.0-10.0)
[2020-02-12 12:57] LABS: ALBUMIN 3.7 g/dl (3.4-5.0); BILIRUBIN,DIRECT 0.1 mg/dL (0.0-0.2); BILIRUBIN,TOTAL 0.3 mg/dL (0.2-1); BLOOD UREA NITROGEN 10.7 mg/dL (7-18); CALCIUM 9.9 mg/dL (8.5-10.1); CREATININE 0.8 mg/dL (0.55-1.3); MAGNESIUM 2.3 mg/dL (1.8-2.4); POTASSIUM 3.7 mmol/L (3.5-5.1); TOT PROT 7.5 g/dl (6.4-8.2)
[2020-02-12 19:24] VITALS: TEMP 98.1
[2020-02-12 19:26] VITALS: BP 90/64; PULSE 95
== END 2020-02-12 16:05 | disposition home or self-care (01) ==
LOC: JRADIR 07:44
PROVIDERS: ATTEND Nurse Practitioner Family
PROC: 02HV33Z Insertion of Infusion Device into Superior Vena Cava, Percutaneous Approach (ICD-10-PCS; principal; 2020-02-12)
PROC: B518ZZA Fluoroscopy of Superior Vena Cava, Guidance (ICD-10-PCS; 2020-02-12)
PROC: 3E04305 Introduction of Other Antineoplastic into Central Vein, Percutaneous Approach (ICD-10-PCS; 2020-02-12)
DX: Z51.11 Encounter for antineoplastic chemotherapy (principal); C34.90 Malignant neoplasm of unspecified part of unspecified bronchus or lung
CPT/HCPCS: 36415; 36569; 77001-TC-FY; 80048; 80076; 82150; 83690; 83735; 84439; 84443; 85025; C1751; J9299

== ENCOUNTER 2020-02-26 07:12 | Day surgery (SDC) | payer BC, OTHER ==
[2020-02-26] MEDS ORDERED: SODIUM CHLORIDE 250 ML IV ONE ×2 (09:00→11:30)
[2020-02-26] MEDS ORDERED: DEXAMETHASONE SODIUM PHOSPHATE 4 MG in SODIUM CHLORIDE 50 ML IVPB ONE (10:00)
[2020-02-26] MEDS ORDERED: NIVOLUMAB 240 MG in SODIUM CHLORIDE 100 ML IVPB ONE (10:30)
[2020-02-26 11:47] LABS: BASO % 0.5 % (0-2.0); HEMATOCRIT 35.9 % (35.4-49); HEMOGLOBIN 11.7 GM/dL (11.7-16.9); LYMPH % 28.6 % (8-40); MCHC 32.5 g/dl (32.0-35.9); MEAN CELL VOLUME 83.1 fl (80-96); MONO % 9.3 % (3.8-10.2); NEUT % 59.6 % (42.8-82.8); PLATELET COUNT 195 K/MM3 (134-434); RBC 4.32 M/mm3 (4.00-5.60); WHITE BLOOD COUNT 4.1 K/mm3 (4.0-10.0)
[2020-02-26 12:28] LABS: ALBUMIN 3.3 g/dl (3.4-5.0); BILIRUBIN,DIRECT 0.1 mg/dL (0.0-0.2); BILIRUBIN,TOTAL 0.2 mg/dL (0.2-1); BLOOD UREA NITROGEN 7.7 mg/dL (7-18); CALCIUM 9.3 mg/dL (8.5-10.1); CREATININE 0.7 mg/dL (0.55-1.3); MAGNESIUM 2.3 mg/dL (1.8-2.4); POTASSIUM 3.6 mmol/L (3.5-5.1); TOT PROT 7.1 g/dl (6.4-8.2)
[2020-02-26 18:17] VITALS: BP 99/57; PULSE 81; TEMP 98.5
[2020-02-27 03:48] LABS: PH,URINE 5.5 (5.0-8.0); URINE APPEARANCE CLEAR; URINE BILIRUBIN NEGATIVE (NEGATIVE); URINE COLOR YELLOW; URINE GLUCOSE (UA) NEGATIVE (NEGATIVE); URINE KETONE NEGATIVE (NEGATIVE); URINE LEUK ESTERASE NEGATIVE (NEGATIVE); URINE NITRITE NEGATIVE (NEGATIVE); URINE PROTEIN TRACE (NEGATIVE)
== END 2020-02-26 17:00 | disposition home or self-care (01) ==
LOC: JRADIR 07:12
PROVIDERS: ATTEND Nurse Practitioner Family
PROC: 02HV33Z Insertion of Infusion Device into Superior Vena Cava, Percutaneous Approach (ICD-10-PCS; principal; 2020-02-26)
PROC: B518ZZA Fluoroscopy of Superior Vena Cava, Guidance (ICD-10-PCS; 2020-02-26)
PROC: 3E04305 Introduction of Other Antineoplastic into Central Vein, Percutaneous Approach (ICD-10-PCS; 2020-02-26)
DX: Z51.11 Encounter for antineoplastic chemotherapy (principal); C34.90 Malignant neoplasm of unspecified part of unspecified bronchus or lung
CPT/HCPCS: 36415; 36569; 77001-TC-FY; 80048; 80076; 81003; 82150; 83690; 83735; 84439; 84443; 85025; 87086; 87186; C1751; J9299

== ENCOUNTER 2020-03-12 07:11 | Day surgery (SDC) | payer BC, OTHER ==
[2020-03-12] MEDS ORDERED: SODIUM CHLORIDE 250 ML IV ONE ×2 (09:00→11:00)
[2020-03-12] MEDS ORDERED: DEXAMETHASONE SODIUM PHOSPHATE 4 MG in SODIUM CHLORIDE 50 ML IVPB ONE (09:30)
[2020-03-12] MEDS ORDERED: NIVOLUMAB 240 MG in SODIUM CHLORIDE 100 ML IVPB ONE (10:00)
[2020-03-12 10:42] LABS: BASO % 0.7 % (0-2.0); EOS % 2.8 % (0-4.5); HEMATOCRIT 35.9 % (35.4-49); HEMOGLOBIN 11.8 GM/dL (11.7-16.9); LYMPH % 23.5 % (8-40); MCH 27.7 pg (25.7-33.7); MEAN CELL VOLUME 83.9 fl (80-96); MEAN PLT VOLUME 7.3 fl (7.5-11.1); MONO % 8.9 % (3.8-10.2); NEUT % 64.1 % (42.8-82.8); PLATELET COUNT 203 K/MM3 (134-434); RBC 4.28 M/mm3 (4.00-5.60); RDW 15.2 % (11.9-15.9); WHITE BLOOD COUNT 3.9 K/mm3 (4.0-10.0)
[2020-03-12 11:10] LABS: ALBUMIN 3.4 g/dl (3.4-5.0); BILIRUBIN,DIRECT 0.1 mg/dL (0.0-0.2); BILIRUBIN,TOTAL 0.2 mg/dL (0.2-1); BLOOD UREA NITROGEN 6.8 mg/dL (7-18); CALCIUM 9.4 mg/dL (8.5-10.1); CREATININE 0.8 mg/dL (0.55-1.3); MAGNESIUM 2.2 mg/dL (1.8-2.4); POTASSIUM 4.2 mmol/L (3.5-5.1); TOT PROT 7.3 g/dl (6.4-8.2)
[2020-03-12] MEDS ORDERED: oxyCODONE HCL 5 MG TABLET PO ONE (13:00)
[2020-03-12 17:30] VITALS: TEMP 98.2
[2020-03-12 17:47] VITALS: BP 110/64; PULSE 75
== END 2020-03-12 15:45 | disposition home or self-care (01) ==
LOC: JRADIR 07:11
PROVIDERS: ATTEND Internal Medicine Hematology & Oncology
PROC: 02HV33Z Insertion of Infusion Device into Superior Vena Cava, Percutaneous Approach (ICD-10-PCS; principal; 2020-03-12)
PROC: B518ZZA Fluoroscopy of Superior Vena Cava, Guidance (ICD-10-PCS; 2020-03-12)
PROC: 3E04305 Introduction of Other Antineoplastic into Central Vein, Percutaneous Approach (ICD-10-PCS; 2020-03-12)
DX: Z51.11 Encounter for antineoplastic chemotherapy (principal); C34.90 Malignant neoplasm of unspecified part of unspecified bronchus or lung
CPT/HCPCS: 36415; 36569; 77001-TC-FY; 80048; 80076; 82150; 83690; 83735; 84439; 84443; 85025; C1751; J9299

== ENCOUNTER 2020-03-25 07:03 | Day surgery (SDC) | payer BC, OTHER ==
--- OUTSIDE RECORDS SUMMARY | 2020-03-25 07:11 | XMS ---
:1955 Author Organization [facility] Support Name Relationship Address Phone RE, RETIRED Unavailable Unavailable OASIS HALF-WAY Unavailable [address] [place] [place] [address] RE Unavailable Unavailable BERNARD GREGORY [address] [address] Re-disclosure Warning The records that you are about to access may contain information from federally- assisted alcohol or drug abuse programs. If such information is present, then the following federally mandated warning applies: This information has been disclosed to you from records protected by federal confidentiality rules (42 CFR part 2). The federal rules prohibit you from making any further disclosure of this information unless further disclosure is expressly permitted by the written consent of the person to whom it pertains or as otherwise permitted by 42 CFR part 2. A general authorization for the release of medical or other information is NOT sufficient for this purpose. The Federal rules restrict any use of the information to criminally investigate or prosecute any alcohol or drug abuse patient.The records that you are about to access may contain highly sensitive health information, the redisclosure of which is protected by Article 27-F of the [facility] Public Health law. If you continue you may haveaccess to information: Regarding HIV / AIDS; Provided by facilities licensed or operated by the [facility] Office of Mental Health; or Provided by the [facility] Office for People With Developmental Disabilities. If such information is present, then the following [facility] mandated warning applies: This information has been disclosed to you from confidential records which are protected by state law. State law prohibits you from making any further disclosure of this information without the specific written consent of the person to whom it pertains, or as otherwise permitted by law. Any unauthorized further disclosure in violation of state law may result in a fine or long term sentence or both. A general authorization for the release of medical or other information is NOT sufficient authorization for further disclosure. Insurance Providers Payer name Policy type Policy ID Covered Covered republican's Policy P jayson / Coverage republican ID relationship to Mckeon Inf ormation type mckeon MEDICAID [id number] SP [id number] BLUE CROSS [id number] SP [id number] MEDICAID [id number] SP [id number] MEDICAID [id number] SP [id number] MEDICAID [id number] SP [id number] MEDICAID [id number] SP [id number] HEDY MEDICARE [id number] SP [id number] BLUE CROSS [id number] SP [id number] MEDICAID [id number] SP [id number] HEDY MEDICARE [id number] SP [id number] MEDICAID [id number] SP [id number] BLUE CROSS [id number] SP [id number] MEDICARE [id number] SP [id number] MEDICAID [id number] SP [id number] BLUE CROSS [id number] SP [id number] BLUE CROSS [id number] SP [id number] BLUE CROSS [id number] SP [id number] MEDICAID [id number] SP [id number] BLUE CROSS [id number] SP [id number] Results ID Date Data Source [id number] 11/24/2019 09:27:00 AM EDT [facility] Name Value Range Interpretation Description Data Sup porting Code Source(s) Document(s ) SARS [facility] CORONAVIRUS 2 RNA This lab was ordered by [facility] and reported by [facility]. ID Date Data Source Liver 03/04/2018 07:29:00 AM EDT [facility] Profile.[id number] Name Value Range Interpretation Description Data Sup porting Code Source(s) Document(s ) Aspartate 17-59 Below low <content [facility] aminotransferase normal styleCode="Bold"> Ankit hs [Enzymatic Aspartate Medical activity/volume] Aminotransferase Center in Serum or Plasma (AST) </content>12 IU/L L<content styleCode="Italic s"> (17-59 IU/L)</content> Alkaline 38-126 <content [facility] phosphatase styleCode="Bold"> Suzan [Enzymatic Alkaline Medical activity/volume] Phosphatase (ALP) Cente r in Serum or Plasma </content>95 IU/L<content styleCode="Italic s"> (38-126 IU/L)</content> Bilirubin.total 0.2-1.3 <content [facility] [Mass/volume] in styleCode="Bold"> Ankit hs Serum or Plasma Bilirubin Total Medical </content>0.2 Center MG/DL<content styleCode="Italic s"> (0.2-1.3 MG/DL)</content> Alanine 7-50 <content [facility] aminotransferase styleCode="Bold"> Ankit hs [Enzymatic Alanine Medical activity/volume] Aminotransferase Center in Serum or Plasma (ALT) </content>17 IU/L<content styleCode="Italic s"> (7-50 IU/L)</content> Albumin 3.5-5.0 <content [facility] [Mass/volume] in styleCode="Bold"> Ankit hs Serum or Plasma Albumin Medical </content>3.9 Center G/DL<content styleCode="Italic s"> (3.5-5.0 G/DL)</content> ID Date Data Source HematologyRou.[id number] 03/04/2018 07:29:00 AM EDT Alfredo nt [facility] 0400 Name Value Range Interpretation Description Data Sup porting Code Source(s) Document(s ) Erythrocyte mean 80.0-100 <content [facility] corpuscular .0 styleCode="Bold Suzan volume [Entitic ">Mean Medical volume] by Corpuscular Center Automated count Volume </content>92.4 FL<content styleCode="Ital ics"> (80.0-100.0 FL)</content> Erythrocytes 4.4-5.9 <content Saint [#/volume] in styleCode="Bold Suzan Blood by ">Red Blood Medical Automated count Cell Count Center </content>4.60 MCUMM<content styleCode="Ital ics"> (4.4-5.9 MCUMM)</content > Hematocrit 41.0-53. <content [facility] [Volume 0 styleCode="Bold Suzan Fraction] of ">Hematocrit Medical Blood by </content>42.5 Center Automated count %<content styleCode="Ital ics"> (41.0-53.0 %)</content> Leukocytes 4.4-11.0 <content [facility] [#/volume] in styleCode="Bold Suzan Blood by ">White Blood Medical Automated count Cell Count Center </content>5.85 KCUMM<content styleCode="Ital ics"> (4.4-11.0 KCUMM)</content > Hemoglobin 13.5-17. <content [facility] [Mass/volume] in 5 styleCode="Bold Suzan Blood ">Hemoglobin Medical </content>14.4 Center G/DL<content styleCode="Ital ics"> (13.5-17.5 G/DL)</content> Platelet mean 8.0-11.0 <content [facility] volume [Entitic styleCode="Bold Suzan volume] in Blood ">Mean Platelet Medical by Automated Volume Center count </content>9.8 FL<content styleCode="Ital ics"> (8.0-11.0 FL)</content> Platelets 130-400 <content Saint [#/volume] in styleCode="Bold Suzan Blood by ">Platelet Medical Automated count Count Center </content>219 KCUMM<content styleCode="Ital ics"> (130-400 KCUMM)</content > Erythrocyte 11.5-14. Above high <content [facility] distribution 5 normal styleCode="Bold Suzan width [Ratio] by ">Red Cell Medical Automated count Distribution Center Width </content>15.2 % H<content styleCode="Ital ics"> (11.5-14.5 %)</content> Erythrocyte mean 26.0-34. <content [facility] corpuscular 0 styleCode="Bold Suzan hemoglobin ">Mean Medical [Entitic mass] Corposcular Center by Automated Hemoglobin count </content>31.3 PG<content styleCode="Ital ics"> (26.0-34.0 PG)</content> UNK 0 <content Saint styleCode="Bold Suzan ">Nucleated Red Medical Blood Cell Center </content>0.0 /100<content styleCode="Ital ics"> (0 /100)</content> Erythrocyte mean 32.0-37. <content [facility] corpuscular 0 styleCode="Bold Suzan hemoglobin ">Mean Corpus. Medical concentration Hgb Center [Mass/volume] by Concentration Automated count (MCHC) </content>33.9 G/DL<content styleCode="Ital ics"> (32.0-37.0 G/DL)</content> UNK 0.0 <content Saint styleCode="Bold Suzan ">Nucleated Red Medical Blood Cell Center Count </content>0.00 KCUMM<content styleCode="Ital ics"> (0.0 KCUMM)</content > ID Date Data Source GFR(Creatinine).[id number] 03/04/2018 07:29:00 AM EDT [facility] 0-0400 Name Value Range Interpretation Code Description Data Tamela rce(s) Supporting Document(s ) UNK > 60 <content [facility] styleCode="Bold"> Medical Cent er EGFR </content>126 GFR<content styleCode="Italic s"> (> 60 GFR)</content> ID Date Data Source CHMROUTINECCDA.[id number] 03/04/2018 07:29:00 AM EDT [facility] -0400 Name Value Range Interpretation Description Data Sup porting Code Source(s) Document(s ) UNK 2.3-3.5 <content [facility] styleCode="Bold Medical ">Globulin Center </content>3.1 G/DL<content styleCode="Ital ics"> (2.3-3.5 G/DL)</content> UNK >= 1.0 <content [facility] styleCode="Bold Medical ">AG Ratio Center </content>1.3 NM<content styleCode="Ital ics"> (>= 1.0 NM)</content> Protein 6.3-8.2 <content [facility] Suzan [Mass/volum styleCode="Bold Medical e] in Serum ">Total Protein Center or Plasma </content>7.0 G/DL<content styleCode="Ital ics"> (6.3-8.2 G/DL)</content> ID Date Data Source [facility].[id number] 03/04/2018 07:29:00 AM EDT [facility] Name Value Range Interpretation Description Data Sup porting Code Source(s) Document(s ) Potassium 3.5-5.3 <content [facility] [Moles/volume] in styleCode="Bold"> Parminder phs Serum or Plasma Potassium Medical </content>3.9 Center MEQ/L<content styleCode="Italic s"> (3.5-5.3 MEQ/L)</content> Sodium 137-145 <content [facility] [Moles/volume] in styleCode="Bold"> Parminder phs Serum or Plasma Sodium Medical </content>141 Center MEQ/L<content styleCode="Italic s"> (137-145 MEQ/L)</content> Chloride 98-107 Above high <content [facility] [Moles/volume] in normal styleCode="Bold"> Parminder phs Serum or Plasma Chloride Medical </content>108 Center MEQ/L H<content styleCode="Italic s"> (98-107 MEQ/L)</content> Calcium 8.4-10. <content [facility] [Mass/volume] in 2 styleCode="Bold"> Ankit hs Serum or Plasma Calcium Medical </content>8.7 Center MG/DL<content styleCode="Italic s"> (8.4-10.2 MG/DL)</content> Carbon dioxide, 22-30 <content [facility] total styleCode="Bold"> Suzan [Moles/volume] in Carbon Dioxide Medical Serum or Plasma </content>24 Center MEQ/L<content styleCode="Italic s"> (22-30 MEQ/L)</content> UNK > 60 <content [facility] styleCode="Bold"> Suzan EGFR Medical </content>126 Center GFR<content styleCode="Italic s"> (> 60 GFR)</content> UNK 9-20 <content [facility] styleCode="Bold"> Suzan BUN </content>10 Medical MG/DL<content Center styleCode="Italic s"> (9-20 MG/DL)</content> Glucose 74-106 Above high <content Saint [Mass/volume] in normal styleCode="Bold"> Ankit hs Serum or Plasma Glucose Medical </content>126 Center MG/DL H<content styleCode="Italic s"> (74-106 MG/DL)</content> Creatinine 0.5-1.3 <content [facility] [Mass/volume] in styleCode="Bold"> Ankit hs Serum or Plasma Creatinine Medical </content>0.8 Center MG/DL<content styleCode="Italic s"> (0.5-1.3 MG/DL)</content> Alanine 7-50 <content [facility] aminotransferase styleCode="Bold"> Ankit hs [Enzymatic Alanine Medical activity/volume] Aminotransferase Center in Serum or Plasma (ALT) </content>17 IU/L<content styleCode="Italic s"> (7-50 IU/L)</content> Alkaline 38-126 <content [facility] phosphatase styleCode="Bold"> Suzan [Enzymatic Alkaline Medical activity/volume] Phosphatase (ALP) Cente r in Serum or Plasma </content>95 IU/L<content styleCode="Italic s"> (38-126 IU/L)</content> Albumin 3.5-5.0 <content [facility] [Mass/volume] in styleCode="Bold"> Ankit hs Serum or Plasma Albumin Medical </content>3.9 Center G/DL<content styleCode="Italic s"> (3.5-5.0 G/DL)</content> Aspartate 17-59 Below low <content [facility] aminotransferase normal styleCode="Bold"> Ankit hs [Enzymatic Aspartate Medical activity/volume] Aminotransferase Center in Serum or Plasma (AST) </content>12 IU/L L<content styleCode="Italic s"> (17-59 IU/L)</content> Bilirubin.total 0.2-1.3 <content [facility] [Mass/volume] in styleCode="Bold"> Ankit hs Serum or Plasma Bilirubin Total Medical </content>0.2 Center MG/DL<content styleCode="Italic s"> (0.2-1.3 MG/DL)</content> Procedure Social History Code Duration Value Status Description Data Source(s ) Smoking Unknown if ever completed Unknown if ever Robin marielena Mares smoked smoked [facility]
[2020-03-25] MEDS ORDERED: SODIUM CHLORIDE 250 ML IV ONE ×2 (09:00→11:00)
[2020-03-25] MEDS ORDERED: DEXAMETHASONE SODIUM PHOSPHATE 4 MG in SODIUM CHLORIDE 50 ML IVPB ONE (09:30)
[2020-03-25] MEDS ORDERED: NIVOLUMAB 240 MG in SODIUM CHLORIDE 100 ML IVPB ONE (10:00)
[2020-03-25 10:02] LABS: BASO % 1.1 % (0-2.0); EOS % 1.7 % (0-4.5); HEMATOCRIT 36.6 % (35.4-49); HEMOGLOBIN 12.2 GM/dL (11.7-16.9); LYMPH % 25.5 % (8-40); MCH 28.3 pg (25.7-33.7); MCHC 33.4 g/dl (32.0-35.9); MEAN CELL VOLUME 84.5 fl (80-96); MEAN PLT VOLUME 7.7 fl (7.5-11.1); MONO % 6.7 % (3.8-10.2); PLATELET COUNT 202 K/MM3 (134-434); RBC 4.33 M/mm3 (4.00-5.60); RDW 15.6 % (11.9-15.9); WHITE BLOOD COUNT 4.4 K/mm3 (4.0-10.0)
[2020-03-25 11:11] LABS: ALBUMIN 3.6 g/dl (3.4-5.0); ALK PHOS 54 U/L (45-117); AMYLASE 65 U/L (25-115); ANION GAP 5 MMOL/L (8-16); BILIRUBIN,TOTAL 0.4 mg/dL (0.2-1); BLOOD UREA NITROGEN 9.3 mg/dL (7-18); CALCIUM 9.4 mg/dL (8.5-10.1); CHLORIDE 103 mmol/L (98-107); CO2 31 mmol/L (21-32); CREATININE 0.9 mg/dL (0.55-1.3); GLUCOSE,RANDOM 103 mg/dL (74-106); LIPASE 83 U/L (73-393); POTASSIUM 3.8 mmol/L (3.5-5.1); SGOT/AST 13 U/L (15-37); SGPT/ALT 12 U/L (13-61); SODIUM 140 mmol/L (136-145); TOT PROT 7.6 g/dl (6.4-8.2)
[2020-03-25 11:14] LABS: BILIRUBIN,DIRECT < 0.1 mg/dL (0.0-0.2)
[2020-03-25] MEDS ORDERED: oxyCODONE HCL 5 MG TABLET PO ONE (11:51)
[2020-03-25 15:41] LABS: URINE APPEARANCE CLEAR; URINE BILIRUBIN NEGATIVE (NEGATIVE); URINE COLOR YELLOW; URINE GLUCOSE (UA) NEGATIVE (NEGATIVE); URINE KETONE NEGATIVE (NEGATIVE); URINE LEUK ESTERASE NEGATIVE (NEGATIVE); URINE NITRITE NEGATIVE (NEGATIVE); URINE PROTEIN NEGATIVE (NEGATIVE)
[2020-03-25 17:16] VITALS: TEMP 97.6
[2020-03-25 17:56] VITALS: BP 89/50; PULSE 83
== END 2020-03-25 15:45 | disposition home or self-care (01) ==
LOC: JRADIR 07:03
PROVIDERS: ATTEND Nurse Practitioner Family
PROC: 02HV33Z Insertion of Infusion Device into Superior Vena Cava, Percutaneous Approach (ICD-10-PCS; principal; 2020-03-25)
PROC: B518ZZA Fluoroscopy of Superior Vena Cava, Guidance (ICD-10-PCS; 2020-03-25)
PROC: 3E04305 Introduction of Other Antineoplastic into Central Vein, Percutaneous Approach (ICD-10-PCS; 2020-03-25)
DX: Z51.11 Encounter for antineoplastic chemotherapy (principal); C34.90 Malignant neoplasm of unspecified part of unspecified bronchus or lung
CPT/HCPCS: 36415; 36569; 77001-TC-FY; 80048; 80076; 81003; 82150; 83690; 83735; 84439; 84443; 85025; 87086; C1751; J9299

== ENCOUNTER 2020-04-08 07:00 | Day surgery (SDC) | payer BC, OTHER ==
--- OUTSIDE RECORDS SUMMARY | 2020-04-08 07:04 | XMS ---
:1955 Author Organization [facility] Support Name Relationship Address Phone RE, RETIRED Unavailable Unavailable OASIS CORRECTION Unavailable [address] [place] [address] RE Unavailable Unavailable BERNARD GREGORY [address] [place] [address] Re-disclosure Warning The records that you are [...] is protected by Article 27-F of the [facility] Public Health law. If you continue you may haveaccess to information: Regarding HIV / AIDS; Provided by facilities licensed or operated by the [facility] Office of Mental Health; or Provided by the [facility] Office for People With Developmental Disabilities. If such information is present, then the following [facility] mandated warning applies: This information [...] law may result in a fine or senior care sentence or both. A general authorization for the release of medical or other information is NOT sufficient authorization for further disclosure. Insurance Providers Payer name Policy type Policy ID Covered Covered democrat's Policy P jayson / Coverage democrat ID relationship to [employer]keon Inf ormation type mckeon MEDICAID [id number] SP [id number] BLUE CROSS [id number] SP [id number] MEDICAID [id number] SP [id number] MEDICAID [id number] SP [id number] BLUE CROSS [id number] SP [id number] BLUE CROSS [id number] SP [id number] BLUE CROSS [id number] SP [id number] MEDICAID [id number] SP [id number] MEDICAID [id number] SP [id number] MEDICAID [id number] SP [id number] MEDICAID [id number] SP [id number] HEDY MEDICARE [id number] SP [id number] BLUE CROSS [id number] SP [id number] MEDICAID [id number] SP [id number] HEDY MEDICARE [id number] SP [id number] MEDICAID [id number] SP [id number] BLUE CROSS [id number] SP [id number] MEDICARE [id number] SP [id number] A BLUE CROSS [id number] SP [id number] Results ID Date Data Source [id number] 11/24/2019 09:27:00 AM EDT [facility] Name Value Range Interpretation Description Data Sup porting Code Source(s) Document(s ) SARS [facility] CORONAVIRUS 2 RNA This lab was ordered by [facility] and reported by [facility]. ID Date Data Source Liver 03/04/2018 07:29:00 AM EDT [facility] Profile.[id number] Name Value Range Interpretation Description Data Sup [...] s"> (3.5-5.0 G/DL)</content> ID Date Data Source HematologyRou.[id number] 03/04/2018 07:29:00 AM EDT Alfredo nt [facility] 0400 Name Value Range Interpretation Description [...] (0.0 KCUMM)</content > ID Date Data Source GFR(Creatinine).[id number] 03/04/2018 07:29:00 AM EDT [facility] 0-0400 Name Value Range Interpretation Code Description Data Tamela rce(s) Supporting Document(s ) UNK > 60 <content [facility] styleCode="Bold"> Medical Cent er EGFR </content>126 GFR<content styleCode="Italic s"> (> 60 GFR)</content> ID Date Data Source CHMROUTINECCDA.[id number] 03/04/2018 07:29:00 AM EDT [facility] -0400 Name Value Range Interpretation Description Data Sup porting Code Source(s) Document(s ) UNK 2.3-3.5 <content [facility] styleCode="Bold Medical ">Globulin Center </content>3.1 G/DL<content styleCode="Ital ics"> (2.3-3.5 G/DL)</content> UNK >= 1.0 <content [facility] styleCode="Bold Medical ">AG Ratio Center </content>1.3 NM<content styleCode="Ital ics"> (>= 1.0 NM)</content> Protein 6.3-8.2 <content Saint Suzan [Mass/volum styleCode="Bold Medical e] in Serum ">Total Protein Center or Plasma </content>7.0 G/DL<content styleCode="Ital ics"> (6.3-8.2 G/DL)</content> ID Date Data Source [facility].[id number] 03/04/2018 07:29:00 AM EDT [facility] Name Value Range Interpretation [...] if ever Robin marielena Mares smoked smoked [facility]
[2020-04-08] MEDS ORDERED: SODIUM CHLORIDE 250 ML IV ONE ×2 (09:00→11:00)
[2020-04-08] MEDS ORDERED: DEXAMETHASONE INJECTION 4 MG in SODIUM CHLORIDE 50 ML IVPB ONE (10:00)
[2020-04-08] MEDS ORDERED: NIVOLUMAB 240 MG in SODIUM CHLORIDE 100 ML IVPB ONE (10:30)
[2020-04-08] MEDS ORDERED: oxyCODONE HCL 5 MG TABLET PO ONE (11:22)
[2020-04-08 11:55] LABS: BASO % 0.5 % (0-2.0); EOS % 2.1 % (0-4.5); HEMATOCRIT 33.4 % (35.4-49); LYMPH % 21.7 % (8-40); MCH 27.4 pg (25.7-33.7); MEAN CELL VOLUME 83.1 fl (80-96); MEAN PLT VOLUME 7.4 fl (7.5-11.1); MONO % 8.4 % (3.8-10.2); NEUT % 67.3 % (42.8-82.8); PLATELET COUNT 228 K/MM3 (134-434); RBC 4.02 M/mm3 (4.00-5.60); RDW 15.1 % (11.9-15.9); WHITE BLOOD COUNT 4.6 K/mm3 (4.0-10.0)
[2020-04-08 12:16] LABS: ALBUMIN 3.4 g/dl (3.4-5.0); BILIRUBIN,DIRECT 0.1 mg/dL (0.0-0.2); BILIRUBIN,TOTAL 0.4 mg/dL (0.2-1); BLOOD UREA NITROGEN 10.7 mg/dL (7-18); CALCIUM 9.8 mg/dL (8.5-10.1); CREATININE 0.8 mg/dL (0.55-1.3); POTASSIUM 4.1 mmol/L (3.5-5.1); TOT PROT 7.1 g/dl (6.4-8.2)
[2020-04-08 18:11] VITALS: BP 100/61; PULSE 76; TEMP 97.9
== END 2020-04-08 15:45 | disposition home or self-care (01) ==
LOC: JRADIR 07:00
PROVIDERS: ATTEND Nurse Practitioner Family
PROC: 02HV33Z Insertion of Infusion Device into Superior Vena Cava, Percutaneous Approach (ICD-10-PCS; principal; 2020-04-08)
PROC: B518ZZA Fluoroscopy of Superior Vena Cava, Guidance (ICD-10-PCS; 2020-04-08)
PROC: 3E04305 Introduction of Other Antineoplastic into Central Vein, Percutaneous Approach (ICD-10-PCS; 2020-04-08)
DX: Z51.11 Encounter for antineoplastic chemotherapy (principal); C34.90 Malignant neoplasm of unspecified part of unspecified bronchus or lung
CPT/HCPCS: 36415; 36569; 77001-TC-FY; 80048; 80076; 82150; 83690; 83735; 84439; 84443; 85025; C1751; J1100; J9299

== ENCOUNTER 2020-06-11 14:31 | Inpatient (IN) | payer BC, OTHER ==
[2020-06-11] MEDS ORDERED: LACTATED RINGERS SOLUTION 1000 ML INFUS.BAG IV ONE (15:18)
[2020-06-11 16:23] LABS: BASO % 0.2 % (0-2.0); HEMATOCRIT 40.2 % (35.4-49); HEMOGLOBIN 12.6 GM/dL (11.7-16.9); LYMPH % 2.1 % (8-40); MCH 26.3 pg (25.7-33.7); MCHC 31.4 g/dl (32.0-35.9); MEAN CELL VOLUME 83.9 fl (80-96); MEAN PLT VOLUME 8.4 fl (7.5-11.1); MONO % 3.2 % (3.8-10.2); NEUT % 94.5 % (42.8-82.8); PLATELET COUNT 485 K/MM3 (134-434); RBC 4.79 M/mm3 (4.00-5.60); RDW 14.7 % (11.9-15.9); WHITE BLOOD COUNT 21.2 K/mm3 (4.0-10.0)
[2020-06-11 16:28] LABS: VENOUS BASE EXCESS 5.3 mmol/L (-2-2); VENOUS O2 SATURATION 25.7 % (70-80); VENOUS PCO2 63.9 mmHg (38-52); VENOUS PH 7.327 (7.310-7.410)
[2020-06-11 16:32] LABS: INR 1.44 (0.83-1.09); PROTHROMBIN TIME (PATIENT) 17.2 SEC (9.7-13.0)
[2020-06-11 16:34] LABS: ACTIVATED PTT 29.9 SECONDS (25.2-36.5)
[2020-06-11 16:41] LABS: CHLORIDE 93 mmol/L (98-107); SODIUM 135 mmol/L (136-145)
[2020-06-11] MEDS ORDERED: PIPERACILLIN/TAZOB 4.5 GM 4.5 GM in DEXTROSE 5%-WATER 100 ML IVPB ONE (16:41)
[2020-06-11 16:44] LABS: ALBUMIN 2.7 g/dl (3.4-5.0); CALCIUM 10.4 mg/dL (8.5-10.1); LIPASE 495 U/L (73-393)
[2020-06-11 16:45] LABS: ANION GAP 12 MMOL/L (8-16); CO2 29 mmol/L (21-32); GLUCOSE,RANDOM 100 mg/dL (74-106); MAGNESIUM 2.4 mg/dL (1.8-2.4)
[2020-06-11 16:46] LABS: EPI CELLS 6 /uL (0-25.1); HYALINE CASTS 3 /uL (0-3.1); PH,URINE 5.5 (5.0-8.0); SGOT/AST 70 U/L (15-37); SGPT/ALT 45 U/L (13-61); URINE APPEARANCE CLEAR; URINE BACTERIA 75 /uL (0-1359); URINE BILIRUBIN NEGATIVE (NEGATIVE); URINE COLOR DK YELLOW; URINE GLUCOSE (UA) NEGATIVE (NEGATIVE); URINE KETONE NEGATIVE (NEGATIVE); URINE LEUK ESTERASE NEGATIVE (NEGATIVE); URINE NITRITE NEGATIVE (NEGATIVE); URINE PROTEIN 1+ (NEGATIVE); URINE RBC 11 /uL (0-23.9); URINE WBC 7 /uL (0-25.8)
[2020-06-11 16:48] LABS: CREATININE 0.9 mg/dL (0.55-1.3)
[2020-06-11 16:49] LABS: BILIRUBIN,TOTAL 0.5 mg/dL (0.2-1); TOT PROT 8.3 g/dl (6.4-8.2)
[2020-06-11 16:50] LABS: ALK PHOS 110 U/L (45-117)
[2020-06-11] MEDS ORDERED: PIPERACILLIN/TAZOB 4.5 GM 4.5 GM/100 ML BAG IVPB ONE (17:02)
[2020-06-11] MEDS ORDERED: ACETAMINOPHEN 1000 MG/100 ML BAG IVPB ONE (20:33)
[2020-06-11] MEDS ORDERED: ACETAMINOPHEN INJECTION 100 ML IVPB ONE (20:42)
[2020-06-11] MEDS ORDERED: CEFTRIAXONE 1 GM/50 ML BAG ONE (21:54)
[2020-06-11] MEDS ORDERED: AZITHROMYCIN IVPB 500 MG/250 ML BAG IVPB ONE (21:54)
[2020-06-11] MEDS: AZITHROMYCIN IVPB 500 MG in DEXTROSE 5%-WATER - 250 ML IVPB SCH (22:03)
[2020-06-11] MEDS: CEFTRIAXONE 1 GM in DEXTROSE 5%-WATER - 50 ML IVPB SCH (22:03)
[2020-06-12 01:26] LABS: LDH 215 U/L (87-246)
[2020-06-12 08:26] LABS: BASO % 0.4 % (0-2.0); EOS % 0.1 % (0-4.5); HEMATOCRIT 31.5 % (35.4-49); HEMOGLOBIN 10.1 GM/dL (11.7-16.9); LYMPH % 2.2 % (8-40); MCHC 31.9 g/dl (32.0-35.9); MEAN CELL VOLUME 81.5 fl (80-96); MONO % 5.1 % (3.8-10.2); NEUT % 92.2 % (42.8-82.8); PLATELET COUNT 408 K/MM3 (134-434); RBC 3.86 M/mm3 (4.00-5.60); RDW 13.9 % (11.9-15.9); WHITE BLOOD COUNT 18.3 K/mm3 (4.0-10.0)
[2020-06-12 08:54] LABS: ALBUMIN 2.2 g/dl (3.4-5.0); BLOOD UREA NITROGEN 13.6 mg/dL (7-18)
[2020-06-12 08:57] LABS: CREATININE 0.6 mg/dL (0.55-1.3)
[2020-06-12 08:59] LABS: BILIRUBIN,TOTAL 1.2 mg/dL (0.2-1); TOT PROT 6.6 g/dl (6.4-8.2)
[2020-06-12] MEDS ORDERED: ASCORBIC ACID 500 MG TABLET (FP) ONE (09:11)
[2020-06-12] MEDS ORDERED: ZINC SULFATE 220 MG CAPSULE (FP) ONE (09:11)
[2020-06-12] MEDS ORDERED: PANTOPRAZOLE 40 MG TABLET ONE (09:11)
[2020-06-12] MEDS ORDERED: ENOXAPARIN NA (PORCINE) 40 MG/0.4 ML DISP.SYRIN SQ ONE (09:12)
[2020-06-12] MEDS ORDERED: CEFTRIAXONE 1 GM/50 ML BAG ONE (09:12)
[2020-06-12] MEDS: ENOXAPARIN NA (PORCINE) 40 MG/0.4 ML DISP.SYRIN SQ SCH (09:21)
[2020-06-12] MEDS: PANTOPRAZOLE 40 MG TABLET PO SCH (09:21)
[2020-06-12] MEDS: CEFTRIAXONE 1 GM in DEXTROSE 5%-WATER - 50 ML IVPB SCH (09:21)
[2020-06-12] MEDS: ASCORBIC ACID 500 MG TABLET (FP) PO SCH ×2 (09:21→23:04)
[2020-06-12] MEDS: ZINC SULFATE 220 MG CAPSULE (FP) PO SCH (09:21)
[2020-06-12] MEDS: CHOLECALCIFEROL (VIT D3) 1,000 UNIT (25 MCG) TABLET PO SCH (09:21)
[2020-06-12] MEDS ORDERED: oxyCODONE HCL 5 MG TABLET ONE (09:24)
[2020-06-12] MEDS: oxyCODONE HCL 5 MG TABLET PO PRN ×2 (09:25→23:08)
[2020-06-12] MEDS ORDERED: AZITHROMYCIN IVPB 500 MG/250 ML BAG IVPB ONE (10:06)
[2020-06-12] MEDS: AZITHROMYCIN IVPB 500 MG in DEXTROSE 5%-WATER - 250 ML IVPB SCH (10:17)
[2020-06-12 10:38] LABS: ANISOCYTOSIS 1+; MACROCYTOSIS 0; PLATELET ESTIMATE NORMAL
[2020-06-12] MEDS: SODIUM CHLORIDE 1,000 ML IV SCH (16:46)
[2020-06-12] MEDS ORDERED: PIPERACILLIN/TAZOB 3.375 GM 3.375 GM/50 ML BAG IVPB ONE (18:02)
[2020-06-12] MEDS: PIPERACILLIN/TAZOB 3.375 GM 3.375 GM in DEXTROSE 5%-WATER - 50 ML IVPB SCH (18:10)
[2020-06-13] MEDS ORDERED: PIPERACILLIN/TAZOBACTAM 3.375 GM VIAL IVPB ONE ×3 (01:09→17:36)
[2020-06-13] MEDS ORDERED: DEXTROSE 5%-WATER - 50 ML IVPB ONE ×3 (01:10→17:37)
[2020-06-13] MEDS: SODIUM CHLORIDE 1,000 ML IV SCH ×2 (01:42→16:40)
[2020-06-13] MEDS: PIPERACILLIN/TAZOB 3.375 GM 3.375 GM in DEXTROSE 5%-WATER - 50 ML IVPB SCH ×3 (01:42→18:00)
[2020-06-13] MEDS ORDERED: SODIUM CHLORIDE 250 ML IV STA (02:22)
[2020-06-13] MEDS ORDERED: SODIUM CHLORIDE 500 ML IV STA ×3 (03:32→12:53)
[2020-06-13 06:58] LABS: BASO % 0.3 % (0-2.0); EOS % 0.3 % (0-4.5); HEMATOCRIT 27.5 % (35.4-49); HEMOGLOBIN 8.5 GM/dL (11.7-16.9); LYMPH % 2.8 % (8-40); MCH 26.3 pg (25.7-33.7); MCHC 31.1 g/dl (32.0-35.9); MEAN CELL VOLUME 84.5 fl (80-96); MEAN PLT VOLUME 7.7 fl (7.5-11.1); MONO % 6.5 % (3.8-10.2); NEUT % 90.1 % (42.8-82.8); PLATELET COUNT 332 K/MM3 (134-434); RBC 3.25 M/mm3 (4.00-5.60); RDW 14.6 % (11.9-15.9); WHITE BLOOD COUNT 16.1 K/mm3 (4.0-10.0)
[2020-06-13 07:03] LABS: CALCIUM 9.2 mg/dL (8.5-10.1)
[2020-06-13 07:04] LABS: ALBUMIN 1.7 g/dl (3.4-5.0); BLOOD UREA NITROGEN 12.2 mg/dL (7-18)
[2020-06-13 07:07] LABS: CREATININE 0.5 mg/dL (0.55-1.3)
[2020-06-13 07:09] LABS: BILIRUBIN,TOTAL 0.5 mg/dL (0.2-1); TOT PROT 5.2 g/dl (6.4-8.2)
[2020-06-13] MEDS: AZITHROMYCIN IVPB 500 MG in DEXTROSE 5%-WATER - 250 ML IVPB SCH (10:00)
[2020-06-13] MEDS: ZINC SULFATE 220 MG CAPSULE (FP) PO SCH (10:35)
[2020-06-13] MEDS: oxyCODONE HCL 5 MG TABLET PO PRN ×2 (10:35→21:46)
[2020-06-13] MEDS: CHOLECALCIFEROL (VIT D3) 1,000 UNIT (25 MCG) TABLET PO SCH (10:35)
[2020-06-13] MEDS: ASCORBIC ACID 500 MG TABLET (FP) PO SCH ×2 (10:35→21:53)
[2020-06-13] MEDS: PANTOPRAZOLE 40 MG TABLET PO SCH (10:35)
[2020-06-13] MEDS: ENOXAPARIN NA (PORCINE) 40 MG/0.4 ML DISP.SYRIN SQ SCH (10:35)
[2020-06-13] MEDS ORDERED: PT OWN MED DRAWER 7, Y5N ONE (12:43)
[2020-06-13] MEDS: AZITHROMYCIN IVPB 500 MG/250 ML BAG IVPB SCH (13:07)
[2020-06-13] MEDS ORDERED: morphine SO4 SUSTAINED ACTING 30 MG TABLET.SA PO SCH (13:30)
[2020-06-13] MEDS: ACETAMINOPHEN 325 MG TABLET (FP) PO PRN (15:04)
[2020-06-13] MEDS: GABAPENTIN 300 MG CAPSULE PO SCH ×2 (15:04→21:53)
[2020-06-13] MEDS ORDERED: VANCOMYCIN 1 GRAM (PRE-DOCKED) 1,000 MG/250 ML BAG IVPB ONE (17:43)
[2020-06-14] MEDS ORDERED: PIPERACILLIN/TAZOBACTAM 3.375 GM VIAL IVPB ONE ×3 (00:22→17:23)
[2020-06-14] MEDS ORDERED: DEXTROSE 5%-WATER - 50 ML IVPB ONE ×3 (00:22→17:24)
[2020-06-14] MEDS: PIPERACILLIN/TAZOB 3.375 GM 3.375 GM in DEXTROSE 5%-WATER - 50 ML IVPB SCH ×3 (01:03→17:43)
[2020-06-14] MEDS: GABAPENTIN 300 MG CAPSULE PO SCH ×3 (06:16→21:11)
[2020-06-14 07:24] LABS: BASO % 0.1 % (0-2.0); EOS % 0.3 % (0-4.5); HEMATOCRIT 26.3 % (35.4-49); MCH 25.4 pg (25.7-33.7); MCHC 30.5 g/dl (32.0-35.9); MEAN CELL VOLUME 83.1 fl (80-96); MEAN PLT VOLUME 7.7 fl (7.5-11.1); MONO % 6.3 % (3.8-10.2); NEUT % 91.3 % (42.8-82.8); PLATELET COUNT 339 K/MM3 (134-434); RBC 3.16 M/mm3 (4.00-5.60); RDW 14.8 % (11.9-15.9); WHITE BLOOD COUNT 14.4 K/mm3 (4.0-10.0)
[2020-06-14 07:32] LABS: CALCIUM 8.2 mg/dL (8.5-10.1)
[2020-06-14 07:33] LABS: ALBUMIN 1.6 g/dl (3.4-5.0); BLOOD UREA NITROGEN 6.5 mg/dL (7-18); MAGNESIUM 1.8 mg/dL (1.8-2.4)
[2020-06-14 07:36] LABS: CREATININE 0.5 mg/dL (0.55-1.3); PHOSPHOROUS 2.8 mg/dL (2.5-4.9)
[2020-06-14 07:37] LABS: BILIRUBIN,TOTAL 0.4 mg/dL (0.2-1); TOT PROT 4.9 g/dl (6.4-8.2)
[2020-06-14] MEDS: ENOXAPARIN NA (PORCINE) 40 MG/0.4 ML DISP.SYRIN SQ SCH (10:11)
[2020-06-14] MEDS: AZITHROMYCIN IVPB 500 MG/250 ML BAG IVPB SCH (10:15)
[2020-06-14] MEDS: PANTOPRAZOLE 40 MG TABLET PO SCH (10:17)
[2020-06-14] MEDS: ASCORBIC ACID 500 MG TABLET (FP) PO SCH ×2 (10:17→21:11)
[2020-06-14] MEDS: ZINC SULFATE 220 MG CAPSULE (FP) PO SCH (10:17)
[2020-06-14] MEDS: CHOLECALCIFEROL (VIT D3) 1,000 UNIT (25 MCG) TABLET PO SCH (10:18)
[2020-06-14] MEDS: MUPIROCIN 2% TOPICAL OINTMENT FOR DECOLONIZATION NS SCH ×2 (10:19→21:11)
[2020-06-14] MEDS: MULTIVITAMINS (DAILY MVI) TABLET (FP) PO SCH (10:24)
[2020-06-14] MEDS ORDERED: LACTATED RINGERS SOLUTION 1000 ML INFUS.BAG IV ONE (10:36)
[2020-06-14] MEDS: oxyCODONE HCL 5 MG TABLET PO PRN (10:59)
[2020-06-14] MEDS: LACTATED RINGERS SOLUTION 1,000 ML/1,000 ML INFUS.BAG IV SCH (11:01)
[2020-06-14] MEDS: ACETAMINOPHEN 325 MG TABLET (FP) PO PRN (11:01)
[2020-06-14 11:40] LABS: ANISOCYTOSIS 0; MACROCYTOSIS 0; PLATELET ESTIMATE NORMAL
[2020-06-14] MEDS ORDERED: METOPROLOL TARTRATE 5 MG/5 ML VIAL IVPUSH ONE (13:40)
[2020-06-14] MEDS ORDERED: SOTALOL HCL 80 MG TABLET (FP) PO PRN (13:41)
[2020-06-14] MEDS ORDERED: SOTALOL HCL 80 MG TABLET (FP) PO ONE (14:00)
[2020-06-14] MEDS ORDERED: PT OWN MED DRAWER 7, Y5N ONE (19:38)
[2020-06-14] MEDS: SOTALOL HCL 80 MG TABLET (FP) PO SCH ×2 (19:42→21:12)
[2020-06-14] MEDS ORDERED: SODIUM CHLORIDE 1,000 ML IV STA (19:58)
[2020-06-14] MEDS: morphine SO4 SUSTAINED ACTING 30 MG TABLET.SA PO PRN (20:01)
[2020-06-14] MEDS ORDERED: ALBUMIN HUMAN 25% 100 ML VIAL IVPB ONE (21:00)
[2020-06-14] MEDS: CHLORHEXIDINE GLUCONATE 4% CLEANSER FOR DECOLONIZATION TP SCH (21:11)
[2020-06-14] MEDS ORDERED: METOPROLOL TARTRATE 5 MG/5 ML VIAL IVPUSH PRN (21:46)
[2020-06-14] MEDS ORDERED: LACTATED RINGERS SOLUTION 1,000 ML/1,000 ML INFUS.BAG IV ONE (21:47)
[2020-06-14] MEDS ORDERED: VANCOMYCIN 1 GM in D5W (PRE-DOCKED) 1,000 MG/250 ML IVPB ONE (22:42)
[2020-06-14] MEDS: ACETAMINOPHEN 1000 MG/100 ML BAG IVPB PRN (23:00)
[2020-06-15] MEDS ORDERED: LACTATED RINGERS SOLUTION 1,000 ML/1,000 ML INFUS.BAG IV ONE (01:06)
[2020-06-15 01:13] LABS: EPI CELLS 15 /uL (0-25.1); HYALINE CASTS 2 /uL (0-3.1); PH,URINE 5.5 (5.0-8.0); URINE APPEARANCE CLEAR; URINE BACTERIA 2 /uL (0-1359); URINE BILIRUBIN NEGATIVE (NEGATIVE); URINE COLOR YELLOW; URINE GLUCOSE (UA) NEGATIVE (NEGATIVE); URINE KETONE NEGATIVE (NEGATIVE); URINE LEUK ESTERASE NEGATIVE (NEGATIVE); URINE NITRITE NEGATIVE (NEGATIVE); URINE PROTEIN 1+ (NEGATIVE); URINE RBC 31 /uL (0-23.9); URINE WBC 9 /uL (0-25.8)
[2020-06-15] MEDS: GABAPENTIN 300 MG CAPSULE PO SCH ×3 (06:18→21:03)
[2020-06-15 07:09] LABS: BASO % 0.2 % (0-2.0); HEMATOCRIT 27.7 % (35.4-49); HEMOGLOBIN 8.3 GM/dL (11.7-16.9); LYMPH % 3.2 % (8-40); MCH 25.3 pg (25.7-33.7); MEAN CELL VOLUME 84.3 fl (80-96); MEAN PLT VOLUME 7.8 fl (7.5-11.1); MONO % 7.5 % (3.8-10.2); NEUT % 88.1 % (42.8-82.8); PLATELET COUNT 321 K/MM3 (134-434); RBC 3.29 M/mm3 (4.00-5.60); RDW 15.2 % (11.9-15.9); WHITE BLOOD COUNT 13.7 K/mm3 (4.0-10.0)
[2020-06-15 07:18] LABS: ALBUMIN 1.9 g/dl (3.4-5.0); BLOOD UREA NITROGEN 4.9 mg/dL (7-18); CALCIUM 8.1 mg/dL (8.5-10.1); MAGNESIUM 1.9 mg/dL (1.8-2.4)
[2020-06-15 07:20] LABS: CREATININE 0.5 mg/dL (0.55-1.3); PHOSPHOROUS 2.1 mg/dL (2.5-4.9)
[2020-06-15 07:21] LABS: BILIRUBIN,TOTAL 0.3 mg/dL (0.2-1)
[2020-06-15 07:22] LABS: TOT PROT 5.1 g/dl (6.4-8.2)
[2020-06-15] MEDS ORDERED: PT OWN MED DRAWER 7, Y5N ONE ×2 (09:39→09:58)
[2020-06-15] MEDS ORDERED: PIPERACILLIN/TAZOBACTAM 3.375 GM VIAL IVPB ONE ×3 (09:46→20:27)
[2020-06-15] MEDS ORDERED: DEXTROSE 5%-WATER - 50 ML IVPB ONE ×3 (09:46→20:28)
[2020-06-15] MEDS: ENOXAPARIN NA (PORCINE) 40 MG/0.4 ML DISP.SYRIN SQ SCH (09:52)
[2020-06-15] MEDS: CHOLECALCIFEROL (VIT D3) 1,000 UNIT (25 MCG) TABLET PO SCH (09:53)
[2020-06-15] MEDS: MULTIVITAMINS (DAILY MVI) TABLET (FP) PO SCH (09:53)
[2020-06-15] MEDS: ASCORBIC ACID 500 MG TABLET (FP) PO SCH ×2 (09:53→21:04)
[2020-06-15] MEDS: ZINC SULFATE 220 MG CAPSULE (FP) PO SCH (09:53)
[2020-06-15] MEDS: PANTOPRAZOLE 40 MG TABLET PO SCH (09:53)
[2020-06-15] MEDS: SOTALOL HCL 80 MG TABLET (FP) PO SCH ×2 (09:53→22:04)
[2020-06-15] MEDS ORDERED: ERTAPENEM SODIUM 1 GM in SODIUM CHLORIDE 50 ML IVPB SCH (10:00)
[2020-06-15] MEDS ORDERED: PIPERACILLIN/TAZOB 3.375 GM 3.375 GM in DEXTROSE 5%-WATER - 50 ML IVPB SCH (10:00)
[2020-06-15] MEDS: oxyCODONE HCL 5 MG TABLET PO PRN ×2 (10:05→21:55)
[2020-06-15] MEDS ORDERED: VANCOMYCIN 1,000 MG in DEXTROSE 5%-WATER - 250 ML IVPB SCH (11:00)
[2020-06-15] MEDS: VANCOMYCIN 1 GRAM (PRE-DOCKED) 1 GM/250 ML BAG IVPB SCH ×2 (12:55→23:13)
[2020-06-15] MEDS: LACTATED RINGERS SOLUTION 1,000 ML/1,000 ML INFUS.BAG IV SCH (12:55)
[2020-06-15] MEDS: MUPIROCIN 2% TOPICAL OINTMENT FOR DECOLONIZATION NS SCH ×2 (13:33→21:00)
[2020-06-15] MEDS: ACETAMINOPHEN 1000 MG/100 ML BAG IVPB PRN (16:11)
[2020-06-15] MEDS: PIPERACILLIN/TAZOB 3.375 GM 3.375 GM in DEXTROSE 5%-WATER - 50 ML IVPB SCH ×2 (16:13→21:04)
[2020-06-15] MEDS: CHLORHEXIDINE GLUCONATE 4% CLEANSER FOR DECOLONIZATION TP SCH (21:03)
[2020-06-16] MEDS ORDERED: RAPID SEQUENCE INTUBATION KIT NR ONE (01:13)
[2020-06-16] MEDS: PIPERACILLIN/TAZOB 3.375 GM 3.375 GM in DEXTROSE 5%-WATER - 50 ML IVPB SCH ×4 (03:00→21:00)
[2020-06-16] MEDS ORDERED: PIPERACILLIN/TAZOBACTAM 3.375 GM VIAL IVPB ONE ×3 (03:06→22:39)
[2020-06-16] MEDS ORDERED: DEXTROSE 5%-WATER - 50 ML IVPB ONE ×3 (03:07→22:39)
[2020-06-16 07:04] LABS: BASO % 0.2 % (0-2.0); EOS % 0.4 % (0-4.5); HEMOGLOBIN 7.8 GM/dL (11.7-16.9); LYMPH % 3.1 % (8-40); MCH 25.9 pg (25.7-33.7); MCHC 31.3 g/dl (32.0-35.9); MEAN CELL VOLUME 82.8 fl (80-96); MEAN PLT VOLUME 8.2 fl (7.5-11.1); MONO % 6.8 % (3.8-10.2); NEUT % 89.5 % (42.8-82.8); PLATELET COUNT 363 K/MM3 (134-434); RBC 3.02 M/mm3 (4.00-5.60); RDW 14.7 % (11.9-15.9); WHITE BLOOD COUNT 13.7 K/mm3 (4.0-10.0)
[2020-06-16] MEDS: GABAPENTIN 300 MG CAPSULE PO SCH ×3 (07:15→23:58)
[2020-06-16 07:34] LABS: ALBUMIN 1.6 g/dl (3.4-5.0); BLOOD UREA NITROGEN 3.7 mg/dL (7-18); MAGNESIUM 2.1 mg/dL (1.8-2.4)
[2020-06-16 07:37] LABS: CREATININE 0.5 mg/dL (0.55-1.3)
[2020-06-16 07:39] LABS: BILIRUBIN,TOTAL 0.3 mg/dL (0.2-1); TOT PROT 4.8 g/dl (6.4-8.2)
[2020-06-16] MEDS: ACETAMINOPHEN 325 MG TABLET (FP) PO PRN (08:08)
[2020-06-16] MEDS ORDERED: POTASSIUM CHLORIDE ORAL LIQUID 20 MEQ/15 ML PO ONE (08:09)
[2020-06-16] MEDS ORDERED: PT OWN MED DRAWER 7, Y5N ONE ×2 (09:02→13:35)
[2020-06-16] MEDS: MUPIROCIN 2% TOPICAL OINTMENT FOR DECOLONIZATION NS SCH ×2 (09:10→23:56)
[2020-06-16] MEDS: ASCORBIC ACID 500 MG TABLET (FP) PO SCH ×2 (09:10→23:58)
[2020-06-16] MEDS: SOTALOL HCL 80 MG TABLET (FP) PO SCH ×2 (09:11→23:57)
[2020-06-16] MEDS: ENOXAPARIN NA (PORCINE) 40 MG/0.4 ML DISP.SYRIN SQ SCH (09:12)
[2020-06-16] MEDS: ZINC SULFATE 220 MG CAPSULE (FP) PO SCH (09:12)
[2020-06-16] MEDS: MULTIVITAMINS (DAILY MVI) TABLET (FP) PO SCH (09:12)
[2020-06-16] MEDS: NAPH,MB-DB/K PH,MBDB POWDER PACKET PO SCH ×2 (09:12→23:58)
[2020-06-16] MEDS: PANTOPRAZOLE 40 MG TABLET PO SCH (09:12)
[2020-06-16] MEDS: CHOLECALCIFEROL (VIT D3) 1,000 UNIT (25 MCG) TABLET PO SCH (09:13)
[2020-06-16] MEDS: morphine SO4 SUSTAINED ACTING 30 MG TABLET.SA PO PRN (09:13)
[2020-06-16] MEDS: VANCOMYCIN 1 GRAM (PRE-DOCKED) 1 GM/250 ML BAG IVPB SCH ×3 (11:23→23:00)
[2020-06-16] MEDS: LACTATED RINGERS SOLUTION 1,000 ML/1,000 ML INFUS.BAG IV SCH (11:23)
[2020-06-16] MEDS: oxyCODONE HCL 5 MG TABLET PO PRN (12:09)
[2020-06-16] MEDS ORDERED: SOTALOL HCL 80 MG TABLET (FP) PO ONE (13:02)
[2020-06-16] MEDS ORDERED: dilTIAZem HCL 50 MG/10 ML - 10 ML VIAL IVPUSH ONE (13:06)
[2020-06-16] MEDS ORDERED: VASOPRESSIN 20 UNITS/ML VIAL IV ONE (22:56)
[2020-06-16] MEDS ORDERED: EPINEPHrine/PF 1 MG/1 ML (1:1,000) AMPULE ONE (23:19)
[2020-06-16] MEDS ORDERED: EPINEPHrine 1:10,000 (P-F SYR) 1 MG/10 ML DISP.SYRIN ONE (23:19)
[2020-06-16] MEDS ORDERED: EPTIFIBATIDE 75 MG/100 ML IV ONE (23:20)
[2020-06-16] MEDS: BANATROL PLUS POWDER PACKET PO SCH (23:57)
[2020-06-16] MEDS: CHLORHEXIDINE GLUCONATE 4% CLEANSER FOR DECOLONIZATION TP SCH (23:58)
[2020-06-17] MEDS ORDERED: DEXTROSE 5%-WATER - 50 ML IVPB ONE ×4 (03:21→21:39)
[2020-06-17] MEDS ORDERED: PIPERACILLIN/TAZOBACTAM 3.375 GM VIAL IVPB ONE ×4 (03:21→21:39)
[2020-06-17] MEDS: PIPERACILLIN/TAZOB 3.375 GM 3.375 GM in DEXTROSE 5%-WATER - 50 ML IVPB SCH ×4 (04:48→21:51)
[2020-06-17] MEDS ORDERED: ACETAMINOPHEN 1000 MG/100 ML BAG IVPB ONE (04:54)
[2020-06-17] MEDS ORDERED: dilTIAZem HCL 125 MG/25 ML - 25 ML VIAL ONE (06:39)
[2020-06-17] MEDS ORDERED: PT OWN MED DRAWER 7, Y5N ONE ×3 (06:40→21:39)
[2020-06-17] MEDS: ENOXAPARIN NA (PORCINE) 40 MG/0.4 ML DISP.SYRIN SQ SCH (09:19)
[2020-06-17] MEDS: CHOLECALCIFEROL (VIT D3) 1,000 UNIT (25 MCG) TABLET PO SCH (09:22)
[2020-06-17] MEDS: MIDODRINE HCL 5 MG TABLET PO SCH ×3 (09:22→17:08)
[2020-06-17] MEDS: ZINC SULFATE 220 MG CAPSULE (FP) PO SCH (09:22)
[2020-06-17] MEDS: ASCORBIC ACID 500 MG TABLET (FP) PO SCH ×2 (09:22→21:51)
[2020-06-17] MEDS: PANTOPRAZOLE 40 MG TABLET PO SCH (09:22)
[2020-06-17] MEDS: MULTIVITAMINS (DAILY MVI) TABLET (FP) PO SCH (09:22)
[2020-06-17] MEDS: MUPIROCIN 2% TOPICAL OINTMENT FOR DECOLONIZATION NS SCH ×2 (09:23→21:51)
[2020-06-17] MEDS: SOTALOL HCL 80 MG TABLET (FP) PO SCH ×3 (09:28→22:32)
[2020-06-17] MEDS: oxyCODONE HCL 5 MG TABLET PO PRN ×2 (10:10→22:31)
[2020-06-17] MEDS: dilTIAZem HCL 50 MG/10 ML - 10 ML VIAL IVPUSH PRN (10:27)
[2020-06-17] MEDS: LACTATED RINGERS SOLUTION 1,000 ML/1,000 ML INFUS.BAG IV SCH (11:48)
[2020-06-17] MEDS: VANCOMYCIN 1 GRAM (PRE-DOCKED) 1 GM/250 ML BAG IVPB SCH ×2 (11:48→22:25)
[2020-06-17] MEDS: BANATROL PLUS POWDER PACKET PO SCH ×2 (14:20→21:50)
[2020-06-17] MEDS: GABAPENTIN 300 MG CAPSULE PO SCH ×3 (14:20→22:00)
[2020-06-17] MEDS ORDERED: MIDODRINE HCL 5 MG TABLET PO ONE (21:02)
[2020-06-17] MEDS: ACETAMINOPHEN 325 MG TABLET (FP) PO PRN (21:50)
[2020-06-17] MEDS: CHLORHEXIDINE GLUCONATE 4% CLEANSER FOR DECOLONIZATION TP SCH (21:51)
[2020-06-18] MEDS: PIPERACILLIN/TAZOB 3.375 GM 3.375 GM in DEXTROSE 5%-WATER - 50 ML IVPB SCH ×4 (03:00→22:00)
[2020-06-18] MEDS ORDERED: PIPERACILLIN/TAZOBACTAM 3.375 GM VIAL IVPB ONE ×4 (04:50→20:05)
[2020-06-18] MEDS ORDERED: DEXTROSE 5%-WATER - 50 ML IVPB ONE ×4 (04:51→20:05)
[2020-06-18] MEDS: BANATROL PLUS POWDER PACKET PO SCH ×3 (05:21→22:00)
[2020-06-18] MEDS: SOTALOL HCL 80 MG TABLET (FP) PO SCH ×3 (05:23→21:58)
[2020-06-18] MEDS: MULTIVITAMINS (DAILY MVI) TABLET (FP) PO SCH (09:55)
[2020-06-18] MEDS: ASCORBIC ACID 500 MG TABLET (FP) PO SCH ×2 (09:55→21:57)
[2020-06-18] MEDS: MIDODRINE HCL 5 MG TABLET PO SCH ×3 (09:55→17:28)
[2020-06-18] MEDS: PANTOPRAZOLE 40 MG TABLET PO SCH (09:55)
[2020-06-18] MEDS: ZINC SULFATE 220 MG CAPSULE (FP) PO SCH (09:55)
[2020-06-18] MEDS: CHOLECALCIFEROL (VIT D3) 1,000 UNIT (25 MCG) TABLET PO SCH (09:55)
[2020-06-18] MEDS: LACTATED RINGERS SOLUTION 1,000 ML/1,000 ML INFUS.BAG IV SCH (09:55)
[2020-06-18] MEDS: MUPIROCIN 2% TOPICAL OINTMENT FOR DECOLONIZATION NS SCH ×2 (09:56→21:58)
[2020-06-18] MEDS: ENOXAPARIN NA (PORCINE) 40 MG/0.4 ML DISP.SYRIN SQ SCH (09:56)
[2020-06-18] MEDS: VANCOMYCIN 1 GRAM (PRE-DOCKED) 1 GM/250 ML BAG IVPB SCH ×2 (10:22→23:41)
[2020-06-18] MEDS: oxyCODONE HCL 5 MG TABLET PO PRN (10:37)
[2020-06-18] MEDS: GABAPENTIN 300 MG CAPSULE PO SCH ×3 (13:18→21:58)
[2020-06-18 18:40] LABS: BASO % 0.5 % (0-2.0); EOS % 0.7 % (0-4.5); HEMATOCRIT 25.4 % (35.4-49); HEMOGLOBIN 7.9 GM/dL (11.7-16.9); LYMPH % 4.8 % (8-40); MCH 25.7 pg (25.7-33.7); MEAN CELL VOLUME 82.9 fl (80-96); MEAN PLT VOLUME 7.6 fl (7.5-11.1); MONO % 7.3 % (3.8-10.2); NEUT % 86.7 % (42.8-82.8); PLATELET COUNT 400 K/MM3 (134-434); RBC 3.07 M/mm3 (4.00-5.60); RDW 15.1 % (11.9-15.9); WHITE BLOOD COUNT 11.5 K/mm3 (4.0-10.0)
[2020-06-18 19:04] LABS: ALBUMIN 1.5 g/dl (3.4-5.0); CALCIUM 7.7 mg/dL (8.5-10.1)
[2020-06-18 19:05] LABS: BLOOD UREA NITROGEN 5.4 mg/dL (7-18)
[2020-06-18 19:07] LABS: CREATININE 0.5 mg/dL (0.55-1.3)
[2020-06-18 19:09] LABS: BILIRUBIN,TOTAL 0.2 mg/dL (0.2-1)
[2020-06-18 19:10] LABS: TOT PROT 4.8 g/dl (6.4-8.2)
[2020-06-18] MEDS: dilTIAZem HCL 50 MG/10 ML - 10 ML VIAL IVPUSH PRN (20:00)
[2020-06-18] MEDS: ENOXAPARIN NA (PORCINE) 80 MG/0.8 ML DISP.SYRIN SQ SCH (21:57)
[2020-06-18] MEDS: CHLORHEXIDINE GLUCONATE 4% CLEANSER FOR DECOLONIZATION TP SCH (21:57)
[2020-06-18] MEDS: morphine SO4 SUSTAINED ACTING 30 MG TABLET.SA PO SCH (21:58)
[2020-06-19] MEDS ORDERED: DEXTROSE 5%-WATER - 50 ML IVPB ONE ×4 (02:03→20:26)
[2020-06-19] MEDS ORDERED: PIPERACILLIN/TAZOBACTAM 3.375 GM VIAL IVPB ONE ×4 (02:03→20:25)
[2020-06-19] MEDS: PIPERACILLIN/TAZOB 3.375 GM 3.375 GM in DEXTROSE 5%-WATER - 50 ML IVPB SCH ×4 (02:05→20:32)
[2020-06-19] MEDS: SOTALOL HCL 80 MG TABLET (FP) PO SCH ×3 (06:07→21:51)
[2020-06-19] MEDS: BANATROL PLUS POWDER PACKET PO SCH ×4 (06:08→21:38)
[2020-06-19] MEDS: GABAPENTIN 300 MG CAPSULE PO SCH ×4 (06:08→21:39)
[2020-06-19 07:18] LABS: BASO % 0.6 % (0-2.0); EOS % 0.8 % (0-4.5); HEMATOCRIT 26.4 % (35.4-49); HEMOGLOBIN 8.3 GM/dL (11.7-16.9); LYMPH % 5.8 % (8-40); MCH 26.4 pg (25.7-33.7); MCHC 31.5 g/dl (32.0-35.9); MEAN CELL VOLUME 83.7 fl (80-96); MEAN PLT VOLUME 7.5 fl (7.5-11.1); MONO % 8.5 % (3.8-10.2); NEUT % 84.3 % (42.8-82.8); PLATELET COUNT 338 K/MM3 (134-434); RBC 3.16 M/mm3 (4.00-5.60); RDW 15.2 % (11.9-15.9); WHITE BLOOD COUNT 10.7 K/mm3 (4.0-10.0)
[2020-06-19 07:31] LABS: ALBUMIN 1.5 g/dl (3.4-5.0); CALCIUM 7.2 mg/dL (8.5-10.1)
[2020-06-19 07:34] LABS: CREATININE 0.5 mg/dL (0.55-1.3)
[2020-06-19 07:35] LABS: BILIRUBIN,TOTAL 0.3 mg/dL (0.2-1)
[2020-06-19 07:36] LABS: TOT PROT 4.9 g/dl (6.4-8.2)
[2020-06-19] MEDS ORDERED: PT OWN MED DRAWER 7, Y5N ONE ×2 (09:16→21:50)
[2020-06-19] MEDS: MIDODRINE HCL 5 MG TABLET PO SCH ×4 (10:00→17:00)
[2020-06-19] MEDS: morphine SO4 SUSTAINED ACTING 30 MG TABLET.SA PO SCH ×2 (10:20→21:38)
[2020-06-19] MEDS: ENOXAPARIN NA (PORCINE) 80 MG/0.8 ML DISP.SYRIN SQ SCH ×2 (10:20→21:38)
[2020-06-19] MEDS: ASCORBIC ACID 500 MG TABLET (FP) PO SCH ×2 (10:21→21:39)
[2020-06-19] MEDS: ZINC SULFATE 220 MG CAPSULE (FP) PO SCH (10:21)
[2020-06-19] MEDS: PANTOPRAZOLE 40 MG TABLET PO SCH (10:21)
[2020-06-19] MEDS: CHOLECALCIFEROL (VIT D3) 1,000 UNIT (25 MCG) TABLET PO SCH (10:21)
[2020-06-19] MEDS: MULTIVITAMINS (DAILY MVI) TABLET (FP) PO SCH (10:21)
[2020-06-19] MEDS: LACTATED RINGERS SOLUTION 1,000 ML/1,000 ML INFUS.BAG IV SCH ×2 (10:21→22:00)
[2020-06-19] MEDS: VANCOMYCIN 1 GRAM (PRE-DOCKED) 1 GM/250 ML BAG IVPB SCH ×2 (12:12→22:13)
[2020-06-19] MEDS: AMINO ACIDS/PROTEIN HYDROLYS 30 ML LIQUID.PKT PO SCH (17:00)
[2020-06-19] MEDS: CHLORHEXIDINE GLUCONATE 4% CLEANSER FOR DECOLONIZATION TP SCH (21:38)
[2020-06-19] MEDS: ACETAMINOPHEN 325 MG TABLET (FP) PO PRN (22:08)
[2020-06-19] MEDS: dilTIAZem HCL 50 MG/10 ML - 10 ML VIAL IVPUSH PRN (22:54)
[2020-06-20] MEDS ORDERED: DEXTROSE 5%-WATER - 50 ML IVPB ONE ×4 (02:29→20:06)
[2020-06-20] MEDS ORDERED: PIPERACILLIN/TAZOBACTAM 3.375 GM VIAL IVPB ONE ×4 (02:29→20:05)
[2020-06-20] MEDS: PIPERACILLIN/TAZOB 3.375 GM 3.375 GM in DEXTROSE 5%-WATER - 50 ML IVPB SCH ×4 (02:31→20:20)
[2020-06-20] MEDS ORDERED: PT OWN MED DRAWER 7, Y5N ONE ×3 (04:49→21:47)
[2020-06-20] MEDS: GABAPENTIN 300 MG CAPSULE PO SCH ×3 (05:18→21:53)
[2020-06-20] MEDS: BANATROL PLUS POWDER PACKET PO SCH ×3 (05:18→21:51)
[2020-06-20] MEDS: SOTALOL HCL 80 MG TABLET (FP) PO SCH ×3 (05:18→21:51)
[2020-06-20] MEDS: AMINO ACIDS/PROTEIN HYDROLYS 30 ML LIQUID.PKT PO SCH ×2 (07:25→17:57)
[2020-06-20] MEDS: dilTIAZem HCL 50 MG/10 ML - 10 ML VIAL IVPUSH PRN ×2 (08:45→14:49)
[2020-06-20] MEDS: ENOXAPARIN NA (PORCINE) 80 MG/0.8 ML DISP.SYRIN SQ SCH ×2 (09:21→21:52)
[2020-06-20] MEDS: MULTIVITAMINS (DAILY MVI) TABLET (FP) PO SCH (09:22)
[2020-06-20] MEDS: CHOLECALCIFEROL (VIT D3) 1,000 UNIT (25 MCG) TABLET PO SCH (09:22)
[2020-06-20] MEDS: ZINC SULFATE 220 MG CAPSULE (FP) PO SCH (09:22)
[2020-06-20] MEDS: PANTOPRAZOLE 40 MG TABLET PO SCH (09:22)
[2020-06-20] MEDS: ASCORBIC ACID 500 MG TABLET (FP) PO SCH ×2 (09:23→22:00)
[2020-06-20] MEDS: MIDODRINE HCL 5 MG TABLET PO SCH ×3 (09:23→17:57)
[2020-06-20] MEDS: morphine SO4 SUSTAINED ACTING 30 MG TABLET.SA PO SCH ×2 (09:27→21:52)
[2020-06-20] MEDS: VANCOMYCIN 1 GRAM (PRE-DOCKED) 1 GM/250 ML BAG IVPB SCH ×2 (12:00→22:45)
[2020-06-20] MEDS: LACTATED RINGERS SOLUTION 1,000 ML/1,000 ML INFUS.BAG IV SCH (12:06)
[2020-06-20 13:26] LABS: BASO % 0.4 % (0-2.0); EOS % 0.7 % (0-4.5); HEMATOCRIT 25.4 % (35.4-49); HEMOGLOBIN 7.8 GM/dL (11.7-16.9); LYMPH % 4.8 % (8-40); MCH 25.9 pg (25.7-33.7); MCHC 30.8 g/dl (32.0-35.9); MEAN CELL VOLUME 84.2 fl (80-96); MEAN PLT VOLUME 7.8 fl (7.5-11.1); MONO % 7.7 % (3.8-10.2); NEUT % 86.4 % (42.8-82.8); PLATELET COUNT 423 K/MM3 (134-434); RBC 3.02 M/mm3 (4.00-5.60); RDW 15.4 % (11.9-15.9); WHITE BLOOD COUNT 8.9 K/mm3 (4.0-10.0)
[2020-06-20 13:32] LABS: CALCIUM 7.8 mg/dL (8.5-10.1)
[2020-06-20 13:33] LABS: ALBUMIN 1.4 g/dl (3.4-5.0); BLOOD UREA NITROGEN 8.5 mg/dL (7-18)
[2020-06-20 13:36] LABS: CREATININE 0.5 mg/dL (0.55-1.3)
[2020-06-20 13:38] LABS: BILIRUBIN,TOTAL 0.1 mg/dL (0.2-1); TOT PROT 4.9 g/dl (6.4-8.2)
[2020-06-20] MEDS: ACETAMINOPHEN 325 MG TABLET (FP) PO PRN (18:50)
[2020-06-20] MEDS ORDERED: ACETAMINOPHEN 325 MG TABLET (FP) PO ONE (20:04)
[2020-06-20] MEDS: CHLORHEXIDINE GLUCONATE 4% CLEANSER FOR DECOLONIZATION TP SCH (21:51)
[2020-06-20] MEDS: oxyCODONE HCL 5 MG TABLET PO PRN (22:04)
[2020-06-21] MEDS: LACTATED RINGERS SOLUTION 1,000 ML/1,000 ML INFUS.BAG IV SCH ×2 (02:00→14:00)
[2020-06-21] MEDS ORDERED: PIPERACILLIN/TAZOBACTAM 3.375 GM VIAL IVPB ONE ×4 (02:25→20:28)
[2020-06-21] MEDS ORDERED: DEXTROSE 5%-WATER - 50 ML IVPB ONE ×4 (02:25→20:29)
[2020-06-21] MEDS: PIPERACILLIN/TAZOB 3.375 GM 3.375 GM in DEXTROSE 5%-WATER - 50 ML IVPB SCH ×4 (02:45→20:57)
[2020-06-21] MEDS ORDERED: PT OWN MED DRAWER 7, Y5N ONE ×4 (05:14→22:18)
[2020-06-21] MEDS: SOTALOL HCL 80 MG TABLET (FP) PO SCH ×3 (05:17→22:28)
[2020-06-21] MEDS: GABAPENTIN 300 MG CAPSULE PO SCH ×3 (05:17→22:28)
[2020-06-21] MEDS: BANATROL PLUS POWDER PACKET PO SCH ×3 (05:17→22:28)
[2020-06-21 07:45] LABS: BASO % 0.5 % (0-2.0); EOS % 0.8 % (0-4.5); HEMATOCRIT 27.4 % (35.4-49); HEMOGLOBIN 8.6 GM/dL (11.7-16.9); MCH 26.5 pg (25.7-33.7); MCHC 31.3 g/dl (32.0-35.9); MEAN CELL VOLUME 84.6 fl (80-96); MEAN PLT VOLUME 7.9 fl (7.5-11.1); MONO % 8.5 % (3.8-10.2); NEUT % 84.2 % (42.8-82.8); PLATELET COUNT 397 K/MM3 (134-434); RBC 3.24 M/mm3 (4.00-5.60); RDW 15.7 % (11.9-15.9); WHITE BLOOD COUNT 8.7 K/mm3 (4.0-10.0)
[2020-06-21 08:07] LABS: ALBUMIN 1.5 g/dl (3.4-5.0); CALCIUM 7.8 mg/dL (8.5-10.1)
[2020-06-21 08:08] LABS: BLOOD UREA NITROGEN 8.6 mg/dL (7-18)
[2020-06-21 08:11] LABS: CREATININE 0.5 mg/dL (0.55-1.3)
[2020-06-21 08:12] LABS: BILIRUBIN,TOTAL 0.5 mg/dL (0.2-1)
[2020-06-21] MEDS: AMINO ACIDS/PROTEIN HYDROLYS 30 ML LIQUID.PKT PO SCH ×2 (09:00→16:46)
[2020-06-21] MEDS: ENOXAPARIN NA (PORCINE) 80 MG/0.8 ML DISP.SYRIN SQ SCH ×2 (10:23→22:28)
[2020-06-21] MEDS: MIDODRINE HCL 5 MG TABLET PO SCH ×3 (10:24→17:07)
[2020-06-21] MEDS: morphine SO4 SUSTAINED ACTING 30 MG TABLET.SA PO SCH ×2 (10:25→22:30)
[2020-06-21] MEDS: ZINC SULFATE 220 MG CAPSULE (FP) PO SCH (10:26)
[2020-06-21] MEDS: CHOLECALCIFEROL (VIT D3) 1,000 UNIT (25 MCG) TABLET PO SCH (10:26)
[2020-06-21] MEDS: MULTIVITAMINS (DAILY MVI) TABLET (FP) PO SCH (10:26)
[2020-06-21] MEDS: ASCORBIC ACID 500 MG TABLET (FP) PO SCH ×2 (10:26→22:27)
[2020-06-21] MEDS: PANTOPRAZOLE 40 MG TABLET PO SCH (10:28)
[2020-06-21] MEDS: VANCOMYCIN 1 GRAM (PRE-DOCKED) 1 GM/250 ML BAG IVPB SCH ×2 (12:12→22:30)
[2020-06-21] MEDS: ACETAMINOPHEN 325 MG TABLET (FP) PO PRN (20:56)
[2020-06-21] MEDS: CHLORHEXIDINE GLUCONATE 4% CLEANSER FOR DECOLONIZATION TP SCH (22:48)
[2020-06-22] MEDS ORDERED: PIPERACILLIN/TAZOBACTAM 3.375 GM VIAL IVPB ONE ×4 (03:38→20:01)
[2020-06-22] MEDS ORDERED: DEXTROSE 5%-WATER - 50 ML IVPB ONE ×4 (03:38→20:01)
[2020-06-22] MEDS: PIPERACILLIN/TAZOB 3.375 GM 3.375 GM in DEXTROSE 5%-WATER - 50 ML IVPB SCH ×4 (03:46→20:39)
[2020-06-22] MEDS ORDERED: PT OWN MED DRAWER 7, Y5N ONE ×4 (05:15→22:08)
[2020-06-22] MEDS: GABAPENTIN 300 MG CAPSULE PO SCH ×3 (05:21→22:22)
[2020-06-22] MEDS: BANATROL PLUS POWDER PACKET PO SCH ×3 (05:21→22:23)
[2020-06-22] MEDS: SOTALOL HCL 80 MG TABLET (FP) PO SCH ×3 (05:22→22:23)
[2020-06-22] MEDS: AMINO ACIDS/PROTEIN HYDROLYS 30 ML LIQUID.PKT PO SCH ×2 (09:21→17:50)
[2020-06-22] MEDS: ENOXAPARIN NA (PORCINE) 80 MG/0.8 ML DISP.SYRIN SQ SCH ×2 (09:24→22:22)
[2020-06-22] MEDS: morphine SO4 SUSTAINED ACTING 30 MG TABLET.SA PO SCH ×2 (09:24→21:11)
[2020-06-22] MEDS: MULTIVITAMINS (DAILY MVI) TABLET (FP) PO SCH (09:25)
[2020-06-22] MEDS: PANTOPRAZOLE 40 MG TABLET PO SCH (09:25)
[2020-06-22] MEDS: MIDODRINE HCL 5 MG TABLET PO SCH ×3 (09:25→17:50)
[2020-06-22] MEDS: ZINC SULFATE 220 MG CAPSULE (FP) PO SCH (09:25)
[2020-06-22] MEDS: CHOLECALCIFEROL (VIT D3) 1,000 UNIT (25 MCG) TABLET PO SCH (09:26)
[2020-06-22] MEDS: ASCORBIC ACID 500 MG TABLET (FP) PO SCH ×2 (09:26→22:22)
[2020-06-22 11:38] LABS: N-TERMINAL BNP 2561.3 pg/ml (5-125)
[2020-06-22] MEDS: LACTATED RINGERS SOLUTION 1,000 ML/1,000 ML INFUS.BAG IV SCH (12:49)
[2020-06-22] MEDS: VANCOMYCIN 1 GRAM (PRE-DOCKED) 1 GM/250 ML BAG IVPB SCH (12:58)
[2020-06-22] MEDS ORDERED: oxyCODONE HCL 5 MG TABLET PO ONE (20:31)
[2020-06-22] MEDS: dilTIAZem HCL 50 MG/10 ML - 10 ML VIAL IVPUSH PRN (20:46)
[2020-06-22] MEDS: ACETAMINOPHEN 325 MG TABLET (FP) PO PRN (21:10)
[2020-06-22] MEDS: ACETAMINOPHEN 1000 MG/100 ML BAG IVPB PRN (21:28)
[2020-06-22 22:29] LABS: EPI CELLS 17 /uL (0-25.1); HYALINE CASTS 1 /uL (0-3.1); PH,URINE >= 9.0 (5.0-8.0); URINE APPEARANCE CLEAR; URINE BACTERIA 16 /uL (0-1359); URINE BILIRUBIN NEGATIVE (NEGATIVE); URINE COLOR YELLOW; URINE GLUCOSE (UA) NEGATIVE (NEGATIVE); URINE KETONE NEGATIVE (NEGATIVE); URINE LEUK ESTERASE TRACE (NEGATIVE); URINE NITRITE NEGATIVE (NEGATIVE); URINE PROTEIN TRACE (NEGATIVE); URINE RBC 10 /uL (0-23.9); URINE UROBILINOGEN 0.2 mg/dL (0.2-1.0); URINE WBC 14 /uL (0-25.8)
[2020-06-22] MEDS: CHLORHEXIDINE GLUCONATE 4% CLEANSER FOR DECOLONIZATION TP SCH (22:46)
[2020-06-23] MEDS: LACTATED RINGERS SOLUTION 1,000 ML/1,000 ML INFUS.BAG IV SCH ×2 (00:03→17:37)
[2020-06-23] MEDS: VANCOMYCIN 1 GRAM (PRE-DOCKED) 1 GM/250 ML BAG IVPB SCH ×3 (00:03→23:41)
[2020-06-23] MEDS ORDERED: PIPERACILLIN/TAZOBACTAM 3.375 GM VIAL IVPB ONE ×4 (03:45→20:35)
[2020-06-23] MEDS ORDERED: DEXTROSE 5%-WATER - 50 ML IVPB ONE ×4 (03:46→20:35)
[2020-06-23] MEDS: PIPERACILLIN/TAZOB 3.375 GM 3.375 GM in DEXTROSE 5%-WATER - 50 ML IVPB SCH ×4 (03:51→21:24)
[2020-06-23] MEDS ORDERED: PT OWN MED DRAWER 7, Y5N ONE ×3 (05:56→20:34)
[2020-06-23] MEDS: ACETAMINOPHEN 1000 MG/100 ML BAG IVPB PRN ×2 (06:18→18:10)
[2020-06-23] MEDS: GABAPENTIN 300 MG CAPSULE PO SCH ×3 (06:19→22:19)
[2020-06-23] MEDS: BANATROL PLUS POWDER PACKET PO SCH ×4 (06:19→22:19)
[2020-06-23] MEDS: SOTALOL HCL 80 MG TABLET (FP) PO SCH ×3 (06:29→22:18)
[2020-06-23 07:18] LABS: BASO % 0.6 % (0-2.0); EOS % 0.9 % (0-4.5); HEMATOCRIT 23.5 % (35.4-49); HEMOGLOBIN 7.3 GM/dL (11.7-16.9); LYMPH % 6.4 % (8-40); MCHC 31.2 g/dl (32.0-35.9); MEAN CELL VOLUME 83.2 fl (80-96); MEAN PLT VOLUME 7.8 fl (7.5-11.1); NEUT % 84.1 % (42.8-82.8); PLATELET COUNT 425 K/MM3 (134-434); RBC 2.83 M/mm3 (4.00-5.60); RDW 15.4 % (11.9-15.9); WHITE BLOOD COUNT 7.7 K/mm3 (4.0-10.0)
[2020-06-23 07:31] LABS: ALBUMIN 1.5 g/dl (3.4-5.0); CALCIUM 8.2 mg/dL (8.5-10.1)
[2020-06-23 07:32] LABS: BLOOD UREA NITROGEN 6.4 mg/dL (7-18); MAGNESIUM 2.1 mg/dL (1.8-2.4)
[2020-06-23 07:35] LABS: CREATININE 0.4 mg/dL (0.55-1.3)
[2020-06-23 07:36] LABS: BILIRUBIN,TOTAL 0.2 mg/dL (0.2-1); TOT PROT 5.2 g/dl (6.4-8.2)
[2020-06-23] MEDS: AMINO ACIDS/PROTEIN HYDROLYS 30 ML LIQUID.PKT PO SCH ×2 (09:12→17:38)
[2020-06-23] MEDS: MIDODRINE HCL 5 MG TABLET PO SCH ×3 (09:13→17:38)
[2020-06-23] MEDS: ASCORBIC ACID 500 MG TABLET (FP) PO SCH ×2 (09:13→22:19)
[2020-06-23] MEDS: ENOXAPARIN NA (PORCINE) 80 MG/0.8 ML DISP.SYRIN SQ SCH ×2 (09:13→22:18)
[2020-06-23] MEDS: ZINC SULFATE 220 MG CAPSULE (FP) PO SCH (09:13)
[2020-06-23] MEDS: PANTOPRAZOLE 40 MG TABLET PO SCH (09:14)
[2020-06-23] MEDS: CHOLECALCIFEROL (VIT D3) 1,000 UNIT (25 MCG) TABLET PO SCH (09:14)
[2020-06-23] MEDS: morphine SO4 SUSTAINED ACTING 30 MG TABLET.SA PO SCH ×2 (09:14→22:19)
[2020-06-23] MEDS: MULTIVITAMINS (DAILY MVI) TABLET (FP) PO SCH (09:16)
[2020-06-23] MEDS: CHLORHEXIDINE GLUCONATE 4% CLEANSER FOR DECOLONIZATION TP SCH (22:10)
[2020-06-24] MEDS ORDERED: DEXTROSE 5%-WATER - 50 ML IVPB ONE ×4 (02:30→20:52)
[2020-06-24] MEDS ORDERED: PIPERACILLIN/TAZOBACTAM 3.375 GM VIAL IVPB ONE ×4 (02:30→20:52)
[2020-06-24] MEDS: PIPERACILLIN/TAZOB 3.375 GM 3.375 GM in DEXTROSE 5%-WATER - 50 ML IVPB SCH ×4 (02:43→20:58)
[2020-06-24] MEDS: ACETAMINOPHEN 1000 MG/100 ML BAG IVPB PRN ×2 (06:03→19:20)
[2020-06-24] MEDS: GABAPENTIN 300 MG CAPSULE PO SCH ×3 (06:04→21:02)
[2020-06-24] MEDS: SOTALOL HCL 80 MG TABLET (FP) PO SCH ×3 (06:04→21:00)
[2020-06-24] MEDS: BANATROL PLUS POWDER PACKET PO SCH ×3 (06:05→21:00)
[2020-06-24 06:56] LABS: BASO % 0.5 % (0-2.0); HEMATOCRIT 22.6 % (35.4-49); HEMOGLOBIN 7.2 GM/dL (11.7-16.9); LYMPH % 7.3 % (8-40); MCH 26.4 pg (25.7-33.7); MCHC 31.7 g/dl (32.0-35.9); MEAN CELL VOLUME 83.2 fl (80-96); MEAN PLT VOLUME 7.6 fl (7.5-11.1); MONO % 9.7 % (3.8-10.2); NEUT % 81.5 % (42.8-82.8); PLATELET COUNT 439 K/MM3 (134-434); RBC 2.72 M/mm3 (4.00-5.60); RDW 15.4 % (11.9-15.9); WHITE BLOOD COUNT 7.3 K/mm3 (4.0-10.0)
[2020-06-24 07:07] LABS: ALBUMIN 1.5 g/dl (3.4-5.0); CALCIUM 8.3 mg/dL (8.5-10.1)
[2020-06-24 07:10] LABS: CREATININE 0.4 mg/dL (0.55-1.3)
[2020-06-24 07:12] LABS: BILIRUBIN,TOTAL 0.2 mg/dL (0.2-1); TOT PROT 5.2 g/dl (6.4-8.2)
[2020-06-24] MEDS: AMINO ACIDS/PROTEIN HYDROLYS 30 ML LIQUID.PKT PO SCH ×2 (09:23→17:20)
[2020-06-24] MEDS: ENOXAPARIN NA (PORCINE) 80 MG/0.8 ML DISP.SYRIN SQ SCH ×2 (09:23→21:00)
[2020-06-24] MEDS: PANTOPRAZOLE 40 MG TABLET PO SCH (09:24)
[2020-06-24] MEDS: ASCORBIC ACID 500 MG TABLET (FP) PO SCH ×2 (09:24→21:00)
[2020-06-24] MEDS: morphine SO4 SUSTAINED ACTING 30 MG TABLET.SA PO SCH ×2 (09:24→21:00)
[2020-06-24] MEDS: MIDODRINE HCL 5 MG TABLET PO SCH ×3 (09:25→17:21)
[2020-06-24] MEDS: CHOLECALCIFEROL (VIT D3) 1,000 UNIT (25 MCG) TABLET PO SCH (09:25)
[2020-06-24] MEDS: MULTIVITAMINS (DAILY MVI) TABLET (FP) PO SCH (09:25)
[2020-06-24] MEDS: ZINC SULFATE 220 MG CAPSULE (FP) PO SCH (09:25)
[2020-06-24] MEDS: LACTATED RINGERS SOLUTION 1,000 ML/1,000 ML INFUS.BAG IV SCH (12:00)
[2020-06-24] MEDS: VANCOMYCIN 1 GRAM (PRE-DOCKED) 1 GM/250 ML BAG IVPB SCH (12:00)
[2020-06-24 20:07] LABS: HEP B CORE AB, TOT Negative (Negative)
[2020-06-24] MEDS ORDERED: PT OWN MED DRAWER 7, Y5N ONE (20:59)
[2020-06-24] MEDS: CHLORHEXIDINE GLUCONATE 4% CLEANSER FOR DECOLONIZATION TP SCH (21:00)
[2020-06-24 23:33] LABS: BASO % 0.7 % (0-2.0); HEMATOCRIT 22.7 % (35.4-49); LYMPH % 8.3 % (8-40); MCH 25.8 pg (25.7-33.7); MCHC 30.8 g/dl (32.0-35.9); MEAN CELL VOLUME 83.9 fl (80-96); MEAN PLT VOLUME 7.7 fl (7.5-11.1); MONO % 11.3 % (3.8-10.2); NEUT % 78.7 % (42.8-82.8); PLATELET COUNT 452 K/MM3 (134-434); RDW 16.2 % (11.9-15.9); WHITE BLOOD COUNT 7.3 K/mm3 (4.0-10.0)
[2020-06-25] MEDS: VANCOMYCIN 1 GRAM (PRE-DOCKED) 1 GM/250 ML BAG IVPB SCH ×2 (00:18→12:37)
[2020-06-25] MEDS ORDERED: DEXTROSE 5%-WATER - 50 ML IVPB ONE ×4 (03:44→21:34)
[2020-06-25] MEDS ORDERED: PIPERACILLIN/TAZOBACTAM 3.375 GM VIAL IVPB ONE ×4 (03:44→21:33)
[2020-06-25] MEDS: PIPERACILLIN/TAZOB 3.375 GM 3.375 GM in DEXTROSE 5%-WATER - 50 ML IVPB SCH ×4 (03:45→21:40)
[2020-06-25 04:07] LABS: FIBROSIS SCORE. 0.12 (0.00-0.21); HCV ALPHA 2 MACRO CHART 191 mg/dL (110-276); NECRO.INFLAM ACT.SCORE 0.11 (0.00-0.17); NECROINFLAM. ACTIVITY GRADE A0-No activity (.)
[2020-06-25] MEDS: ACETAMINOPHEN 1000 MG/100 ML BAG IVPB PRN (06:20)
[2020-06-25] MEDS: BANATROL PLUS POWDER PACKET PO SCH ×3 (06:36→21:40)
[2020-06-25] MEDS: SOTALOL HCL 80 MG TABLET (FP) PO SCH ×3 (06:36→21:40)
[2020-06-25] MEDS: GABAPENTIN 300 MG CAPSULE PO SCH ×3 (06:36→21:42)
[2020-06-25 06:53] LABS: BASO % 0.7 % (0-2.0); HEMATOCRIT 22.9 % (35.4-49); HEMOGLOBIN 7.2 GM/dL (11.7-16.9); MCHC 31.5 g/dl (32.0-35.9); MEAN CELL VOLUME 82.7 fl (80-96); MEAN PLT VOLUME 7.5 fl (7.5-11.1); MONO % 11.6 % (3.8-10.2); NEUT % 78.7 % (42.8-82.8); PLATELET COUNT 462 K/MM3 (134-434); RBC 2.77 M/mm3 (4.00-5.60); RDW 15.7 % (11.9-15.9); WHITE BLOOD COUNT 7.2 K/mm3 (4.0-10.0)
[2020-06-25 07:14] LABS: CALCIUM 8.8 mg/dL (8.5-10.1)
[2020-06-25 07:15] LABS: ALBUMIN 1.5 g/dl (3.4-5.0); BLOOD UREA NITROGEN 7.5 mg/dL (7-18)
[2020-06-25 07:17] LABS: CREATININE 0.5 mg/dL (0.55-1.3)
[2020-06-25 07:19] LABS: BILIRUBIN,TOTAL 0.3 mg/dL (0.2-1); TOT PROT 5.4 g/dl (6.4-8.2)
[2020-06-25] MEDS: AMINO ACIDS/PROTEIN HYDROLYS 30 ML LIQUID.PKT PO SCH ×2 (09:01→17:43)
[2020-06-25] MEDS: morphine SO4 SUSTAINED ACTING 30 MG TABLET.SA PO SCH ×2 (09:34→21:41)
[2020-06-25] MEDS: PANTOPRAZOLE 40 MG TABLET PO SCH (09:35)
[2020-06-25] MEDS: ZINC SULFATE 220 MG CAPSULE (FP) PO SCH (09:35)
[2020-06-25] MEDS: ASCORBIC ACID 500 MG TABLET (FP) PO SCH ×2 (09:35→21:42)
[2020-06-25] MEDS: MIDODRINE HCL 5 MG TABLET PO SCH ×3 (09:36→17:43)
[2020-06-25] MEDS: MULTIVITAMINS (DAILY MVI) TABLET (FP) PO SCH (09:36)
[2020-06-25] MEDS: CHOLECALCIFEROL (VIT D3) 1,000 UNIT (25 MCG) TABLET PO SCH (09:36)
[2020-06-25] MEDS: LACTATED RINGERS SOLUTION 1,000 ML/1,000 ML INFUS.BAG IV SCH (13:39)
[2020-06-25] MEDS: ENOXAPARIN NA (PORCINE) 80 MG/0.8 ML DISP.SYRIN SQ SCH ×2 (15:34→21:41)
[2020-06-25] MEDS: CHLORHEXIDINE GLUCONATE 4% CLEANSER FOR DECOLONIZATION TP SCH (21:40)
[2020-06-25] MEDS ORDERED: ACETAMINOPHEN 325 MG TABLET (FP) PO ONE (23:16)
[2020-06-26] MEDS: VANCOMYCIN 1 GRAM (PRE-DOCKED) 1 GM/250 ML BAG IVPB SCH ×3 (00:07→23:57)
[2020-06-26 00:45] LABS: BASO % 0.9 % (0-2.0); EOS % 1.1 % (0-4.5); HEMATOCRIT 23.8 % (35.4-49); HEMOGLOBIN 7.3 GM/dL (11.7-16.9); LYMPH % 7.8 % (8-40); MCH 25.8 pg (25.7-33.7); MCHC 30.7 g/dl (32.0-35.9); MEAN PLT VOLUME 7.5 fl (7.5-11.1); MONO % 11.1 % (3.8-10.2); NEUT % 79.1 % (42.8-82.8); PLATELET COUNT 475 K/MM3 (134-434); RBC 2.83 M/mm3 (4.00-5.60); WHITE BLOOD COUNT 7.7 K/mm3 (4.0-10.0)
[2020-06-26] MEDS ORDERED: PIPERACILLIN/TAZOBACTAM 3.375 GM VIAL IVPB ONE ×4 (03:37→20:25)
[2020-06-26] MEDS ORDERED: DEXTROSE 5%-WATER - 50 ML IVPB ONE ×4 (03:38→20:25)
[2020-06-26] MEDS: PIPERACILLIN/TAZOB 3.375 GM 3.375 GM in DEXTROSE 5%-WATER - 50 ML IVPB SCH ×4 (03:41→20:35)
[2020-06-26] MEDS ORDERED: ACETAMINOPHEN 325 MG TABLET (FP) PO ONE (05:26)
[2020-06-26] MEDS: BANATROL PLUS POWDER PACKET PO SCH ×3 (05:58→22:39)
[2020-06-26] MEDS: LACTATED RINGERS SOLUTION 1,000 ML/1,000 ML INFUS.BAG IV SCH ×3 (05:59→20:35)
[2020-06-26] MEDS: SOTALOL HCL 80 MG TABLET (FP) PO SCH ×3 (05:59→22:40)
[2020-06-26] MEDS: GABAPENTIN 300 MG CAPSULE PO SCH ×3 (05:59→22:41)
[2020-06-26] MEDS: AMINO ACIDS/PROTEIN HYDROLYS 30 ML LIQUID.PKT PO SCH ×2 (09:53→18:05)
[2020-06-26] MEDS: ENOXAPARIN NA (PORCINE) 80 MG/0.8 ML DISP.SYRIN SQ SCH ×2 (09:53→22:40)
[2020-06-26] MEDS: morphine SO4 SUSTAINED ACTING 30 MG TABLET.SA PO SCH ×2 (09:53→22:40)
[2020-06-26] MEDS: CHOLECALCIFEROL (VIT D3) 1,000 UNIT (25 MCG) TABLET PO SCH (09:54)
[2020-06-26] MEDS: PANTOPRAZOLE 40 MG TABLET PO SCH (09:54)
[2020-06-26] MEDS: ZINC SULFATE 220 MG CAPSULE (FP) PO SCH (09:54)
[2020-06-26] MEDS: ASCORBIC ACID 500 MG TABLET (FP) PO SCH ×2 (09:54→22:41)
[2020-06-26] MEDS: MULTIVITAMINS (DAILY MVI) TABLET (FP) PO SCH (09:54)
[2020-06-26] MEDS: MIDODRINE HCL 5 MG TABLET PO SCH ×3 (09:54→18:05)
[2020-06-26] MEDS: CHLORHEXIDINE GLUCONATE 4% CLEANSER FOR DECOLONIZATION TP SCH (22:40)
[2020-06-26] MEDS: ACETAMINOPHEN 325 MG TABLET (FP) PO PRN (23:38)
[2020-06-26] MEDS: dilTIAZem HCL 50 MG/10 ML - 10 ML VIAL IVPUSH PRN (23:57)
[2020-06-27] MEDS ORDERED: DEXTROSE 5%-WATER - 50 ML IVPB ONE ×4 (02:45→21:08)
[2020-06-27] MEDS ORDERED: PIPERACILLIN/TAZOBACTAM 3.375 GM VIAL IVPB ONE ×4 (02:45→21:08)
[2020-06-27] MEDS: PIPERACILLIN/TAZOB 3.375 GM 3.375 GM in DEXTROSE 5%-WATER - 50 ML IVPB SCH ×4 (02:54→21:58)
[2020-06-27] MEDS: BANATROL PLUS POWDER PACKET PO SCH ×3 (05:13→21:58)
[2020-06-27] MEDS: GABAPENTIN 300 MG CAPSULE PO SCH ×3 (05:13→21:59)
[2020-06-27] MEDS: SOTALOL HCL 80 MG TABLET (FP) PO SCH ×3 (05:13→21:58)
[2020-06-27] MEDS: LACTATED RINGERS SOLUTION 1,000 ML/1,000 ML INFUS.BAG IV SCH ×2 (09:26→12:20)
[2020-06-27] MEDS: AMINO ACIDS/PROTEIN HYDROLYS 30 ML LIQUID.PKT PO SCH ×2 (09:27→17:43)
[2020-06-27] MEDS: ENOXAPARIN NA (PORCINE) 80 MG/0.8 ML DISP.SYRIN SQ SCH ×2 (09:29→21:58)
[2020-06-27] MEDS: MULTIVITAMINS (DAILY MVI) TABLET (FP) PO SCH (09:29)
[2020-06-27] MEDS: morphine SO4 SUSTAINED ACTING 30 MG TABLET.SA PO SCH ×2 (09:30→21:58)
[2020-06-27] MEDS: CHOLECALCIFEROL (VIT D3) 1,000 UNIT (25 MCG) TABLET PO SCH (09:32)
[2020-06-27] MEDS: PANTOPRAZOLE 40 MG TABLET PO SCH (09:33)
[2020-06-27] MEDS: ASCORBIC ACID 500 MG TABLET (FP) PO SCH ×2 (09:33→21:59)
[2020-06-27] MEDS: ZINC SULFATE 220 MG CAPSULE (FP) PO SCH (09:33)
[2020-06-27] MEDS: MIDODRINE HCL 5 MG TABLET PO SCH ×3 (09:34→17:43)
[2020-06-27] MEDS: VANCOMYCIN 1 GRAM (PRE-DOCKED) 1 GM/250 ML BAG IVPB SCH (11:12)
[2020-06-27] MEDS ORDERED: PT OWN MED DRAWER 7, Y5N ONE ×2 (14:39→21:07)
[2020-06-27] MEDS: ACETAMINOPHEN 325 MG TABLET (FP) PO PRN (14:48)
[2020-06-27] MEDS: CHLORHEXIDINE GLUCONATE 4% CLEANSER FOR DECOLONIZATION TP SCH (21:58)
[2020-06-28] MEDS: VANCOMYCIN 1 GRAM (PRE-DOCKED) 1 GM/250 ML BAG IVPB SCH ×3 (00:15→23:07)
[2020-06-28] MEDS ORDERED: PIPERACILLIN/TAZOBACTAM 3.375 GM VIAL IVPB ONE ×4 (03:43→20:29)
[2020-06-28] MEDS ORDERED: DEXTROSE 5%-WATER - 50 ML IVPB ONE ×4 (03:44→20:30)
[2020-06-28] MEDS: PIPERACILLIN/TAZOB 3.375 GM 3.375 GM in DEXTROSE 5%-WATER - 50 ML IVPB SCH ×4 (03:51→20:53)
[2020-06-28] MEDS: SOTALOL HCL 80 MG TABLET (FP) PO SCH ×3 (06:50→21:14)
[2020-06-28] MEDS: GABAPENTIN 300 MG CAPSULE PO SCH ×3 (06:50→21:15)
[2020-06-28] MEDS: BANATROL PLUS POWDER PACKET PO SCH ×3 (06:50→21:14)
[2020-06-28] MEDS: ACETAMINOPHEN 325 MG TABLET (FP) PO PRN (06:50)
[2020-06-28 07:33] LABS: ALBUMIN 1.6 g/dl (3.4-5.0); CALCIUM 8.8 mg/dL (8.5-10.1)
[2020-06-28 07:35] LABS: BLOOD UREA NITROGEN 10.8 mg/dL (7-18)
[2020-06-28 07:38] LABS: BILIRUBIN,TOTAL 0.3 mg/dL (0.2-1); CREATININE 0.5 mg/dL (0.55-1.3)
[2020-06-28 07:39] LABS: TOT PROT 5.7 g/dl (6.4-8.2)
[2020-06-28 07:55] LABS: BASO % 1.1 % (0-2.0); EOS % 1.4 % (0-4.5); HEMATOCRIT 21.2 % (35.4-49); LYMPH % 11.3 % (8-40); MCHC 31.4 g/dl (32.0-35.9); MEAN CELL VOLUME 82.7 fl (80-96); MEAN PLT VOLUME 7.4 fl (7.5-11.1); MONO % 17.5 % (3.8-10.2); NEUT % 68.7 % (42.8-82.8); PLATELET COUNT 477 K/MM3 (134-434); RBC 2.57 M/mm3 (4.00-5.60); RDW 15.8 % (11.9-15.9); WHITE BLOOD COUNT 5.9 K/mm3 (4.0-10.0)
[2020-06-28 08:21] LABS: HEMOGLOBIN 6.7 GM/dL (11.7-16.9)
[2020-06-28] MEDS: PANTOPRAZOLE 40 MG TABLET PO SCH (10:33)
[2020-06-28] MEDS: ZINC SULFATE 220 MG CAPSULE (FP) PO SCH (10:33)
[2020-06-28] MEDS: ENOXAPARIN NA (PORCINE) 80 MG/0.8 ML DISP.SYRIN SQ SCH ×2 (10:33→21:14)
[2020-06-28] MEDS: AMINO ACIDS/PROTEIN HYDROLYS 30 ML LIQUID.PKT PO SCH ×2 (10:33→18:21)
[2020-06-28] MEDS: morphine SO4 SUSTAINED ACTING 30 MG TABLET.SA PO SCH ×2 (10:33→21:14)
[2020-06-28] MEDS: CHOLECALCIFEROL (VIT D3) 1,000 UNIT (25 MCG) TABLET PO SCH (10:33)
[2020-06-28] MEDS: MULTIVITAMINS (DAILY MVI) TABLET (FP) PO SCH (10:34)
[2020-06-28] MEDS: MIDODRINE HCL 5 MG TABLET PO SCH ×3 (10:34→18:21)
[2020-06-28] MEDS: ASCORBIC ACID 500 MG TABLET (FP) PO SCH ×2 (10:35→21:15)
[2020-06-28 11:09] LABS: ANISOCYTOSIS 1+; MACROCYTOSIS 1+; PLATELET ESTIMATE NORMAL
[2020-06-28] MEDS ORDERED: PT OWN MED DRAWER 7, Y5N ONE (14:59)
[2020-06-28] MEDS: LACTATED RINGERS SOLUTION 1,000 ML/1,000 ML INFUS.BAG IV SCH (15:18)
[2020-06-28] MEDS: IRON POLYSACCHARIDES 150 MG CAPSULE PO SCH (15:20)
[2020-06-28] MEDS: CHLORHEXIDINE GLUCONATE 4% CLEANSER FOR DECOLONIZATION TP SCH (21:14)
[2020-06-29] MEDS ORDERED: PIPERACILLIN/TAZOBACTAM 3.375 GM VIAL IVPB ONE ×4 (03:15→21:24)
[2020-06-29] MEDS ORDERED: DEXTROSE 5%-WATER - 50 ML IVPB ONE ×4 (03:15→21:25)
[2020-06-29] MEDS: PIPERACILLIN/TAZOB 3.375 GM 3.375 GM in DEXTROSE 5%-WATER - 50 ML IVPB SCH ×4 (03:30→21:00)
[2020-06-29] MEDS: BANATROL PLUS POWDER PACKET PO SCH ×3 (06:36→22:00)
[2020-06-29] MEDS: SOTALOL HCL 80 MG TABLET (FP) PO SCH ×3 (06:37→21:36)
[2020-06-29] MEDS: GABAPENTIN 300 MG CAPSULE PO SCH ×3 (06:37→21:36)
[2020-06-29 08:06] LABS: CALCIUM 8.9 mg/dL (8.5-10.1)
[2020-06-29 08:07] LABS: ALBUMIN 1.8 g/dl (3.4-5.0); BLOOD UREA NITROGEN 8.6 mg/dL (7-18)
[2020-06-29 08:10] LABS: CREATININE 0.5 mg/dL (0.55-1.3); EOS % 1.3 % (0-4.5); HEMATOCRIT 24.7 % (35.4-49); HEMOGLOBIN 8.2 GM/dL (11.7-16.9); MCHC 33.1 g/dl (32.0-35.9); MEAN CELL VOLUME 81.7 fl (80-96); MEAN PLT VOLUME 7.6 fl (7.5-11.1); MONO % 14.4 % (3.8-10.2); NEUT % 72.3 % (42.8-82.8); PLATELET COUNT 477 K/MM3 (134-434); RBC 3.02 M/mm3 (4.00-5.60); RDW 15.3 % (11.9-15.9)
[2020-06-29 08:12] LABS: BILIRUBIN,TOTAL 0.5 mg/dL (0.2-1); TOT PROT 5.9 g/dl (6.4-8.2)
[2020-06-29 08:40] LABS: WHITE BLOOD COUNT 5.8 K/mm3 (4.0-10.0)
[2020-06-29] MEDS: AMINO ACIDS/PROTEIN HYDROLYS 30 ML LIQUID.PKT PO SCH ×2 (10:23→17:52)
[2020-06-29] MEDS: ENOXAPARIN NA (PORCINE) 80 MG/0.8 ML DISP.SYRIN SQ SCH ×2 (10:27→21:36)
[2020-06-29] MEDS: morphine SO4 SUSTAINED ACTING 30 MG TABLET.SA PO SCH ×2 (10:27→21:34)
[2020-06-29] MEDS: ZINC SULFATE 220 MG CAPSULE (FP) PO SCH (10:30)
[2020-06-29] MEDS: IRON POLYSACCHARIDES 150 MG CAPSULE PO SCH (10:30)
[2020-06-29] MEDS: MIDODRINE HCL 5 MG TABLET PO SCH ×3 (10:31→17:52)
[2020-06-29] MEDS: ASCORBIC ACID 500 MG TABLET (FP) PO SCH ×2 (10:31→21:36)
[2020-06-29] MEDS: MULTIVITAMINS (DAILY MVI) TABLET (FP) PO SCH (10:31)
[2020-06-29] MEDS: CHOLECALCIFEROL (VIT D3) 1,000 UNIT (25 MCG) TABLET PO SCH (10:31)
[2020-06-29] MEDS: PANTOPRAZOLE 40 MG TABLET PO SCH (10:31)
[2020-06-29] MEDS: LACTATED RINGERS SOLUTION 1,000 ML/1,000 ML INFUS.BAG IV SCH ×3 (10:32→21:36)
[2020-06-29] MEDS: VANCOMYCIN 1 GRAM (PRE-DOCKED) 1 GM/250 ML BAG IVPB SCH ×3 (12:27→23:00)
[2020-06-29] MEDS ORDERED: PT OWN MED DRAWER 7, Y5N ONE ×2 (13:24→14:20)
[2020-06-29] MEDS: ACETAMINOPHEN 325 MG TABLET (FP) PO PRN (21:34)
[2020-06-29] MEDS: CHLORHEXIDINE GLUCONATE 4% CLEANSER FOR DECOLONIZATION TP SCH (22:48)
[2020-06-30] MEDS ORDERED: DEXTROSE 5%-WATER - 50 ML IVPB ONE ×4 (02:33→20:44)
[2020-06-30] MEDS ORDERED: PIPERACILLIN/TAZOBACTAM 3.375 GM VIAL IVPB ONE ×4 (02:33→20:44)
[2020-06-30] MEDS ORDERED: PT OWN MED DRAWER 7, Y5N ONE ×2 (02:53→14:22)
[2020-06-30] MEDS: PIPERACILLIN/TAZOB 3.375 GM 3.375 GM in DEXTROSE 5%-WATER - 50 ML IVPB SCH ×4 (02:54→22:09)
[2020-06-30] MEDS: BANATROL PLUS POWDER PACKET PO SCH ×3 (06:16→22:00)
[2020-06-30] MEDS: SOTALOL HCL 80 MG TABLET (FP) PO SCH ×3 (06:16→22:11)
[2020-06-30] MEDS: GABAPENTIN 300 MG CAPSULE PO SCH ×3 (06:18→22:12)
[2020-06-30] MEDS: PANTOPRAZOLE 40 MG TABLET PO SCH (09:29)
[2020-06-30] MEDS: MULTIVITAMINS (DAILY MVI) TABLET (FP) PO SCH (09:29)
[2020-06-30] MEDS: MIDODRINE HCL 5 MG TABLET PO SCH ×3 (09:29→17:10)
[2020-06-30] MEDS: IRON POLYSACCHARIDES 150 MG CAPSULE PO SCH (09:29)
[2020-06-30] MEDS: morphine SO4 SUSTAINED ACTING 30 MG TABLET.SA PO SCH ×2 (09:29→22:10)
[2020-06-30] MEDS: ASCORBIC ACID 500 MG TABLET (FP) PO SCH ×2 (09:29→22:13)
[2020-06-30] MEDS: CHOLECALCIFEROL (VIT D3) 1,000 UNIT (25 MCG) TABLET PO SCH (09:29)
[2020-06-30] MEDS: ZINC SULFATE 220 MG CAPSULE (FP) PO SCH (09:29)
[2020-06-30] MEDS: ENOXAPARIN NA (PORCINE) 80 MG/0.8 ML DISP.SYRIN SQ SCH ×2 (09:30→22:09)
[2020-06-30] MEDS: AMINO ACIDS/PROTEIN HYDROLYS 30 ML LIQUID.PKT PO SCH ×2 (09:31→16:40)
[2020-06-30] MEDS: LACTATED RINGERS SOLUTION 1,000 ML/1,000 ML INFUS.BAG IV SCH (12:00)
[2020-06-30] MEDS: VANCOMYCIN 1 GRAM (PRE-DOCKED) 1 GM/250 ML BAG IVPB SCH ×2 (13:00→23:00)
[2020-06-30] MEDS: ACETAMINOPHEN 325 MG TABLET (FP) PO PRN (14:42)
[2020-06-30] MEDS: CHLORHEXIDINE GLUCONATE 4% CLEANSER FOR DECOLONIZATION TP SCH (22:11)
[2020-07-01] MEDS ORDERED: PIPERACILLIN/TAZOBACTAM 3.375 GM VIAL IVPB ONE ×4 (01:34→21:22)
[2020-07-01] MEDS ORDERED: DEXTROSE 5%-WATER - 50 ML IVPB ONE ×4 (01:34→21:22)
[2020-07-01] MEDS: PIPERACILLIN/TAZOB 3.375 GM 3.375 GM in DEXTROSE 5%-WATER - 50 ML IVPB SCH ×4 (03:03→21:29)
[2020-07-01] MEDS ORDERED: PT OWN MED DRAWER 7, Y5N ONE (06:01)
[2020-07-01] MEDS: BANATROL PLUS POWDER PACKET PO SCH ×3 (06:03→21:29)
[2020-07-01] MEDS: ACETAMINOPHEN 325 MG TABLET (FP) PO PRN (06:04)
[2020-07-01] MEDS: SOTALOL HCL 80 MG TABLET (FP) PO SCH ×3 (06:04→21:33)
[2020-07-01] MEDS: GABAPENTIN 300 MG CAPSULE PO SCH ×3 (06:04→21:32)
[2020-07-01 07:33] LABS: EOS % 1.7 % (0-4.5); HEMATOCRIT 23.8 % (35.4-49); HEMOGLOBIN 7.7 GM/dL (11.7-16.9); LYMPH % 11.9 % (8-40); MCHC 32.3 g/dl (32.0-35.9); MEAN CELL VOLUME 83.6 fl (80-96); MEAN PLT VOLUME 7.6 fl (7.5-11.1); MONO % 20.6 % (3.8-10.2); NEUT % 64.8 % (42.8-82.8); PLATELET COUNT 525 K/MM3 (134-434); RBC 2.84 M/mm3 (4.00-5.60); RDW 15.6 % (11.9-15.9); WHITE BLOOD COUNT 6.2 K/mm3 (4.0-10.0)
[2020-07-01 07:46] LABS: ALBUMIN 1.8 g/dl (3.4-5.0); BLOOD UREA NITROGEN 9.3 mg/dL (7-18); CALCIUM 9.3 mg/dL (8.5-10.1)
[2020-07-01 07:50] LABS: CREATININE 0.5 mg/dL (0.55-1.3)
[2020-07-01 07:52] LABS: BILIRUBIN,TOTAL 0.7 mg/dL (0.2-1); TOT PROT 6.1 g/dl (6.4-8.2)
[2020-07-01] MEDS: MIDODRINE HCL 5 MG TABLET PO SCH ×3 (09:56→17:01)
[2020-07-01] MEDS: ENOXAPARIN NA (PORCINE) 80 MG/0.8 ML DISP.SYRIN SQ SCH ×2 (09:56→21:31)
[2020-07-01] MEDS: AMINO ACIDS/PROTEIN HYDROLYS 30 ML LIQUID.PKT PO SCH ×2 (09:56→16:31)
[2020-07-01] MEDS: CHOLECALCIFEROL (VIT D3) 1,000 UNIT (25 MCG) TABLET PO SCH (09:56)
[2020-07-01] MEDS: MULTIVITAMINS (DAILY MVI) TABLET (FP) PO SCH (09:56)
[2020-07-01] MEDS: morphine SO4 SUSTAINED ACTING 30 MG TABLET.SA PO SCH ×2 (09:57→21:31)
[2020-07-01] MEDS: ASCORBIC ACID 500 MG TABLET (FP) PO SCH ×2 (09:57→21:32)
[2020-07-01] MEDS: PANTOPRAZOLE 40 MG TABLET PO SCH (09:57)
[2020-07-01] MEDS: IRON POLYSACCHARIDES 150 MG CAPSULE PO SCH (09:58)
[2020-07-01] MEDS: ZINC SULFATE 220 MG CAPSULE (FP) PO SCH (09:58)
[2020-07-01 10:53] LABS: ANISOCYTOSIS 2+; MACROCYTOSIS 1+; PLATELET ESTIMATE INCREASED; ROULEAU 1+; TOXIC GRANULATION 1+
[2020-07-01] MEDS: LACTATED RINGERS SOLUTION 1,000 ML/1,000 ML INFUS.BAG IV SCH (12:00)
[2020-07-01] MEDS: VANCOMYCIN 1 GRAM (PRE-DOCKED) 1 GM/250 ML BAG IVPB SCH ×2 (12:18→23:23)
[2020-07-01] MEDS: CHLORHEXIDINE GLUCONATE 4% CLEANSER FOR DECOLONIZATION TP SCH (21:31)
[2020-07-02] MEDS: PIPERACILLIN/TAZOB 3.375 GM 3.375 GM in DEXTROSE 5%-WATER - 50 ML IVPB SCH ×2 (03:50→10:22)
[2020-07-02] MEDS ORDERED: PIPERACILLIN/TAZOBACTAM 3.375 GM VIAL IVPB ONE ×2 (05:08→10:01)
[2020-07-02] MEDS ORDERED: DEXTROSE 5%-WATER - 50 ML IVPB ONE ×2 (05:09→10:01)
[2020-07-02] MEDS: BANATROL PLUS POWDER PACKET PO SCH ×3 (05:55→22:59)
[2020-07-02] MEDS: GABAPENTIN 300 MG CAPSULE PO SCH ×3 (05:55→23:00)
[2020-07-02] MEDS: SOTALOL HCL 80 MG TABLET (FP) PO SCH ×3 (05:55→23:00)
[2020-07-02] MEDS: AMINO ACIDS/PROTEIN HYDROLYS 30 ML LIQUID.PKT PO SCH ×2 (08:34→18:34)
[2020-07-02] MEDS: ENOXAPARIN NA (PORCINE) 80 MG/0.8 ML DISP.SYRIN SQ SCH ×2 (09:48→23:00)
[2020-07-02] MEDS: MULTIVITAMINS (DAILY MVI) TABLET (FP) PO SCH (09:48)
[2020-07-02] MEDS: ZINC SULFATE 220 MG CAPSULE (FP) PO SCH (09:48)
[2020-07-02] MEDS: PANTOPRAZOLE 40 MG TABLET PO SCH (09:48)
[2020-07-02] MEDS: MIDODRINE HCL 5 MG TABLET PO SCH ×3 (09:48→17:24)
[2020-07-02] MEDS: morphine SO4 SUSTAINED ACTING 30 MG TABLET.SA PO SCH ×2 (09:49→22:59)
[2020-07-02] MEDS: CHOLECALCIFEROL (VIT D3) 1,000 UNIT (25 MCG) TABLET PO SCH (09:49)
[2020-07-02] MEDS: IRON POLYSACCHARIDES 150 MG CAPSULE PO SCH (09:49)
[2020-07-02] MEDS: ASCORBIC ACID 500 MG TABLET (FP) PO SCH ×2 (09:49→23:00)
[2020-07-02] MEDS: LACTATED RINGERS SOLUTION 1,000 ML/1,000 ML INFUS.BAG IV SCH (12:20)
[2020-07-02] MEDS: CHLORHEXIDINE GLUCONATE 4% CLEANSER FOR DECOLONIZATION TP SCH (23:00)
[2020-07-03] MEDS: ACETAMINOPHEN 325 MG TABLET (FP) PO PRN ×2 (05:46→22:14)
[2020-07-03] MEDS: SOTALOL HCL 80 MG TABLET (FP) PO SCH ×3 (05:46→23:04)
[2020-07-03] MEDS: GABAPENTIN 300 MG CAPSULE PO SCH ×3 (05:46→23:04)
[2020-07-03] MEDS: BANATROL PLUS POWDER PACKET PO SCH ×2 (05:49→14:32)
[2020-07-03 10:52] LABS: EOS % 1.9 % (0-4.5); HEMATOCRIT 24.1 % (35.4-49); HEMOGLOBIN 7.7 GM/dL (11.7-16.9); LYMPH % 11.2 % (8-40); MCH 26.7 pg (25.7-33.7); MEAN CELL VOLUME 83.7 fl (80-96); MEAN PLT VOLUME 7.6 fl (7.5-11.1); MONO % 19.3 % (3.8-10.2); NEUT % 66.6 % (42.8-82.8); PLATELET COUNT 517 K/MM3 (134-434); RBC 2.88 M/mm3 (4.00-5.60); RDW 15.5 % (11.9-15.9); WHITE BLOOD COUNT 6.2 K/mm3 (4.0-10.0)
[2020-07-03 11:19] LABS: ALBUMIN 1.9 g/dl (3.4-5.0); BLOOD UREA NITROGEN 7.5 mg/dL (7-18); CALCIUM 10.1 mg/dL (8.5-10.1)
[2020-07-03 11:22] LABS: CREATININE 0.5 mg/dL (0.55-1.3)
[2020-07-03 11:24] LABS: BILIRUBIN,TOTAL 0.2 mg/dL (0.2-1); TOT PROT 6.3 g/dl (6.4-8.2)
[2020-07-03 11:32] LABS: ANISOCYTOSIS 0; MACROCYTOSIS 0; PLATELET ESTIMATE INCREASED
[2020-07-03] MEDS ORDERED: PT OWN MED DRAWER 7, Y5N ONE ×2 (11:37→14:28)
[2020-07-03] MEDS: ENOXAPARIN NA (PORCINE) 80 MG/0.8 ML DISP.SYRIN SQ SCH ×2 (11:39→23:04)
[2020-07-03] MEDS: MULTIVITAMINS (DAILY MVI) TABLET (FP) PO SCH (11:39)
[2020-07-03] MEDS: PANTOPRAZOLE 40 MG TABLET PO SCH (11:39)
[2020-07-03] MEDS: IRON POLYSACCHARIDES 150 MG CAPSULE PO SCH (11:39)
[2020-07-03] MEDS: MIDODRINE HCL 5 MG TABLET PO SCH ×3 (11:40→18:32)
[2020-07-03] MEDS: CHOLECALCIFEROL (VIT D3) 1,000 UNIT (25 MCG) TABLET PO SCH (11:40)
[2020-07-03] MEDS: morphine SO4 SUSTAINED ACTING 30 MG TABLET.SA PO SCH ×2 (11:40→23:03)
[2020-07-03] MEDS: ASCORBIC ACID 500 MG TABLET (FP) PO SCH ×2 (11:40→23:03)
[2020-07-03] MEDS: AMINO ACIDS/PROTEIN HYDROLYS 30 ML LIQUID.PKT PO SCH ×2 (11:43→18:32)
[2020-07-03] MEDS: ZINC SULFATE 220 MG CAPSULE (FP) PO SCH (12:34)
[2020-07-03] MEDS: LACTATED RINGERS SOLUTION 1,000 ML/1,000 ML INFUS.BAG IV SCH (14:31)
[2020-07-03 15:59] VITALS: BMI 22.0
[2020-07-03] MEDS: CHLORHEXIDINE GLUCONATE 4% CLEANSER FOR DECOLONIZATION TP SCH (23:04)
[2020-07-04] MEDS: SOTALOL HCL 80 MG TABLET (FP) PO SCH ×3 (05:42→22:10)
[2020-07-04] MEDS: GABAPENTIN 300 MG CAPSULE PO SCH ×3 (05:42→22:06)
[2020-07-04 06:54] LABS: BASO % 0.8 % (0-2.0); EOS % 2.3 % (0-4.5); HEMATOCRIT 26.4 % (35.4-49); HEMOGLOBIN 8.3 GM/dL (11.7-16.9); LYMPH % 13.6 % (8-40); MCH 26.3 pg (25.7-33.7); MCHC 31.3 g/dl (32.0-35.9); MEAN CELL VOLUME 84.1 fl (80-96); MEAN PLT VOLUME 7.7 fl (7.5-11.1); MONO % 19.8 % (3.8-10.2); NEUT % 63.5 % (42.8-82.8); PLATELET COUNT 549 K/MM3 (134-434); RBC 3.13 M/mm3 (4.00-5.60); RDW 15.8 % (11.9-15.9); WHITE BLOOD COUNT 6.5 K/mm3 (4.0-10.0)
[2020-07-04] MEDS: ZINC SULFATE 220 MG CAPSULE (FP) PO SCH (10:11)
[2020-07-04] MEDS: morphine SO4 SUSTAINED ACTING 30 MG TABLET.SA PO SCH ×2 (10:11→22:04)
[2020-07-04] MEDS: PANTOPRAZOLE 40 MG TABLET PO SCH (10:11)
[2020-07-04] MEDS: AMINO ACIDS/PROTEIN HYDROLYS 30 ML LIQUID.PKT PO SCH ×2 (10:11→17:01)
[2020-07-04] MEDS: ASCORBIC ACID 500 MG TABLET (FP) PO SCH ×2 (10:11→22:08)
[2020-07-04] MEDS: MULTIVITAMINS (DAILY MVI) TABLET (FP) PO SCH (10:11)
[2020-07-04] MEDS: CHOLECALCIFEROL (VIT D3) 1,000 UNIT (25 MCG) TABLET PO SCH (10:11)
[2020-07-04 10:13] LABS: ANISOCYTOSIS 1+; MACROCYTOSIS 0; OVALOCYTE 1+; PLATELET ESTIMATE INCREASED
[2020-07-04] MEDS: ENOXAPARIN NA (PORCINE) 80 MG/0.8 ML DISP.SYRIN SQ SCH ×2 (10:13→22:02)
[2020-07-04] MEDS: MIDODRINE HCL 5 MG TABLET PO SCH ×3 (10:13→17:01)
[2020-07-04] MEDS: IRON POLYSACCHARIDES 150 MG CAPSULE PO SCH (10:13)
[2020-07-04] MEDS: LACTATED RINGERS SOLUTION 1,000 ML/1,000 ML INFUS.BAG IV SCH (13:01)
[2020-07-04] MEDS: CHLORHEXIDINE GLUCONATE 4% CLEANSER FOR DECOLONIZATION TP SCH (22:03)
[2020-07-05] MEDS: GABAPENTIN 300 MG CAPSULE PO SCH ×3 (06:05→21:56)
[2020-07-05] MEDS: SOTALOL HCL 80 MG TABLET (FP) PO SCH ×3 (06:05→21:53)
[2020-07-05] MEDS: ENOXAPARIN NA (PORCINE) 80 MG/0.8 ML DISP.SYRIN SQ SCH ×2 (10:08→21:56)
[2020-07-05] MEDS: CHOLECALCIFEROL (VIT D3) 1,000 UNIT (25 MCG) TABLET PO SCH (10:09)
[2020-07-05] MEDS: morphine SO4 SUSTAINED ACTING 30 MG TABLET.SA PO SCH ×2 (10:09→21:54)
[2020-07-05] MEDS: PANTOPRAZOLE 40 MG TABLET PO SCH (10:09)
[2020-07-05] MEDS: AMINO ACIDS/PROTEIN HYDROLYS 30 ML LIQUID.PKT PO SCH ×2 (10:09→17:23)
[2020-07-05] MEDS: ASCORBIC ACID 500 MG TABLET (FP) PO SCH ×2 (10:09→21:53)
[2020-07-05] MEDS: MIDODRINE HCL 5 MG TABLET PO SCH ×3 (10:10→17:23)
[2020-07-05] MEDS: MULTIVITAMINS (DAILY MVI) TABLET (FP) PO SCH (10:10)
[2020-07-05] MEDS: IRON POLYSACCHARIDES 150 MG CAPSULE PO SCH (10:10)
[2020-07-05] MEDS: ZINC SULFATE 220 MG CAPSULE (FP) PO SCH (10:10)
[2020-07-05] MEDS: LACTATED RINGERS SOLUTION 1,000 ML/1,000 ML INFUS.BAG IV SCH (13:00)
[2020-07-06] MEDS: SOTALOL HCL 80 MG TABLET (FP) PO SCH ×4 (05:56→22:11)
[2020-07-06] MEDS: GABAPENTIN 300 MG CAPSULE PO SCH ×3 (05:57→21:45)
[2020-07-06] MEDS: CHLORHEXIDINE GLUCONATE 4% CLEANSER FOR DECOLONIZATION TP SCH ×2 (06:04→21:45)
[2020-07-06] MEDS: ASCORBIC ACID 500 MG TABLET (FP) PO SCH ×3 (10:53→21:45)
[2020-07-06] MEDS: ZINC SULFATE 220 MG CAPSULE (FP) PO SCH ×2 (10:53→13:04)
[2020-07-06] MEDS: ENOXAPARIN NA (PORCINE) 80 MG/0.8 ML DISP.SYRIN SQ SCH ×2 (10:53→21:55)
[2020-07-06] MEDS: MULTIVITAMINS (DAILY MVI) TABLET (FP) PO SCH ×2 (10:54→11:06)
[2020-07-06] MEDS: morphine SO4 SUSTAINED ACTING 30 MG TABLET.SA PO SCH ×2 (10:54→11:04)
[2020-07-06] MEDS: CHOLECALCIFEROL (VIT D3) 1,000 UNIT (25 MCG) TABLET PO SCH ×2 (10:54→11:06)
[2020-07-06] MEDS: MIDODRINE HCL 5 MG TABLET PO SCH ×4 (10:54→17:02)
[2020-07-06] MEDS: PANTOPRAZOLE 40 MG TABLET PO SCH ×2 (10:54→11:05)
[2020-07-06] MEDS: IRON POLYSACCHARIDES 150 MG CAPSULE PO SCH ×2 (10:54→13:04)
[2020-07-06] MEDS: LACTATED RINGERS SOLUTION 1,000 ML/1,000 ML INFUS.BAG IV SCH ×3 (10:55→21:54)
[2020-07-06] MEDS: AMINO ACIDS/PROTEIN HYDROLYS 30 ML LIQUID.PKT PO SCH ×2 (10:55→16:34)
[2020-07-06] MEDS ORDERED: SODIUM CHLORIDE 500 ML IV STA (11:09)
[2020-07-06] MEDS ORDERED: NALOXONE HCL 0.4 MG/ML VIAL IVPUSH ONE (11:09)
[2020-07-06] MEDS ORDERED: NALOXONE HCL 0.4 MG/ML VIAL ONE ×2 (11:12→11:38)
[2020-07-06] MEDS ORDERED: DEXTROSE 50%-WATER - 25 GM/50 ML VIAL IVPUSH ONE (11:49)
[2020-07-06] MEDS ORDERED: DEXTROSE 50%-WATER 25 GM/50 ML DISP.SYRIN ONE (11:51)
[2020-07-06] MEDS ORDERED: ADENOSINE 6 MG/2 ML VIAL IVPUSH ONE ×2 (12:19→12:25)
[2020-07-06 12:23] LABS: BASO % 0.4 % (0-2.0); EOS % 0.4 % (0-4.5); HEMATOCRIT 22.8 % (35.4-49); LYMPH % 8.3 % (8-40); MCH 26.5 pg (25.7-33.7); MCHC 30.8 g/dl (32.0-35.9); MEAN CELL VOLUME 86.1 fl (80-96); MEAN PLT VOLUME 7.6 fl (7.5-11.1); MONO % 7.2 % (3.8-10.2); NEUT % 83.7 % (42.8-82.8); PLATELET COUNT 505 K/MM3 (134-434); RBC 2.65 M/mm3 (4.00-5.60); RDW 15.8 % (11.9-15.9); WHITE BLOOD COUNT 9.5 K/mm3 (4.0-10.0)
[2020-07-06 12:33] LABS: ARTERIAL BLD GAS O2 SATURATION 99.1 mmHg (95-98); ARTERIAL BLOOD GAS BASE EXCESS 4.8 mmol/L (-2-2); ARTERIAL BLOOD GAS PO2 165.7 mmHg (80-100); ARTERIAL BLOOD GAS pH 7.385 (7.350-7.450)
[2020-07-06 12:35] LABS: ALLENS TEST POSITIVE
[2020-07-06] MEDS ORDERED: MORPHINE SULFATE/0.9% NACL/PF 100 MG/100 ML BAG IVPB SCH (12:45)
[2020-07-06 12:47] LABS: CALCIUM 10.5 mg/dL (8.5-10.1)
[2020-07-06 12:48] LABS: ALBUMIN 1.9 g/dl (3.4-5.0); BLOOD UREA NITROGEN 16.4 mg/dL (7-18)
[2020-07-06 12:51] LABS: CREATININE 1.1 mg/dL (0.55-1.3)
[2020-07-06 12:53] LABS: BILIRUBIN,TOTAL 0.2 mg/dL (0.2-1); TOT PROT 5.9 g/dl (6.4-8.2)
[2020-07-06 13:43] LABS: ANISOCYTOSIS 0; MACROCYTOSIS 0; PLATELET ESTIMATE INCREASED
[2020-07-06] MEDS ORDERED: ACETAMINOPHEN INJECTION 100 ML IVPB ONE (15:47)
[2020-07-06] MEDS: MORPHINE SULFATE/0.9% NACL/PF 100 MG/100 ML BAG IVPB SCH (16:45)
[2020-07-06] MEDS ORDERED: ACETAMINOPHEN 1000 MG/100 ML BAG IVPB PRN (17:28)
[2020-07-06] MEDS: SCOPOLAMINE HYDROBROMIDE 1 PATCH PATCH.TD72 TD SCH (17:46)
[2020-07-07] MEDS: SOTALOL HCL 80 MG TABLET (FP) PO SCH ×3 (05:51→22:14)
[2020-07-07] MEDS: GABAPENTIN 300 MG CAPSULE PO SCH ×3 (05:51→22:15)
[2020-07-07] MEDS: LACTATED RINGERS SOLUTION 1,000 ML/1,000 ML INFUS.BAG IV SCH ×2 (06:43→13:35)
[2020-07-07] MEDS: AMINO ACIDS/PROTEIN HYDROLYS 30 ML LIQUID.PKT PO SCH ×2 (09:01→17:45)
[2020-07-07] MEDS: PANTOPRAZOLE 40 MG TABLET PO SCH (09:04)
[2020-07-07] MEDS: MIDODRINE HCL 5 MG TABLET PO SCH ×3 (09:04→17:45)
[2020-07-07] MEDS: MULTIVITAMINS (DAILY MVI) TABLET (FP) PO SCH (09:04)
[2020-07-07] MEDS: ZINC SULFATE 220 MG CAPSULE (FP) PO SCH (09:04)
[2020-07-07] MEDS: CHOLECALCIFEROL (VIT D3) 1,000 UNIT (25 MCG) TABLET PO SCH (09:04)
[2020-07-07] MEDS: ENOXAPARIN NA (PORCINE) 80 MG/0.8 ML DISP.SYRIN SQ SCH (09:04)
[2020-07-07] MEDS: ASCORBIC ACID 500 MG TABLET (FP) PO SCH ×2 (09:04→22:15)
[2020-07-07] MEDS: IRON POLYSACCHARIDES 150 MG CAPSULE PO SCH (09:04)
[2020-07-07] MEDS: MORPHINE SULFATE/0.9% NACL/PF 100 MG/100 ML BAG IVPB SCH (13:51)
[2020-07-07] MEDS ORDERED: FUROSEMIDE 40 MG/4 ML INJECTABLE VIAL IVPUSH ONE (14:00)
[2020-07-07] MEDS: LACTATED RINGERS SOLUTION 1,000 ML IV SCH (15:06)
[2020-07-07] MEDS: CHLORHEXIDINE GLUCONATE 4% CLEANSER FOR DECOLONIZATION TP SCH (22:15)
[2020-07-08 06:41] LABS: HEMATOCRIT 24.5 % (35.4-49); HEMOGLOBIN 7.8 GM/dL (11.7-16.9); MCH 26.4 pg (25.7-33.7); MCHC 31.9 g/dl (32.0-35.9); MEAN CELL VOLUME 82.7 fl (80-96); MEAN PLT VOLUME 7.6 fl (7.5-11.1); PLATELET COUNT 462 K/MM3 (134-434); RBC 2.97 M/mm3 (4.00-5.60); RDW 15.6 % (11.9-15.9); WHITE BLOOD COUNT 7.3 K/mm3 (4.0-10.0)
[2020-07-08] MEDS: SOTALOL HCL 80 MG TABLET (FP) PO SCH ×3 (06:43→21:07)
[2020-07-08] MEDS: GABAPENTIN 300 MG CAPSULE PO SCH ×3 (06:43→21:07)
[2020-07-08 07:09] LABS: ALBUMIN 2.2 g/dl (3.4-5.0); BLOOD UREA NITROGEN 11.4 mg/dL (7-18); MAGNESIUM 1.7 mg/dL (1.8-2.4)
[2020-07-08 07:12] LABS: BILIRUBIN,TOTAL 0.2 mg/dL (0.2-1); CREATININE 0.6 mg/dL (0.55-1.3)
[2020-07-08] MEDS: ZINC SULFATE 220 MG CAPSULE (FP) PO SCH (10:07)
[2020-07-08] MEDS: ASCORBIC ACID 500 MG TABLET (FP) PO SCH ×2 (10:07→21:07)
[2020-07-08] MEDS: AMINO ACIDS/PROTEIN HYDROLYS 30 ML LIQUID.PKT PO SCH ×2 (10:07→17:01)
[2020-07-08] MEDS: MIDODRINE HCL 5 MG TABLET PO SCH ×3 (10:07→17:01)
[2020-07-08] MEDS: IRON POLYSACCHARIDES 150 MG CAPSULE PO SCH (10:07)
[2020-07-08] MEDS: PANTOPRAZOLE 40 MG TABLET PO SCH (10:07)
[2020-07-08] MEDS: MULTIVITAMINS (DAILY MVI) TABLET (FP) PO SCH (10:07)
[2020-07-08] MEDS: CHOLECALCIFEROL (VIT D3) 1,000 UNIT (25 MCG) TABLET PO SCH (10:07)
[2020-07-08] MEDS: LACTATED RINGERS SOLUTION 1,000 ML IV SCH ×2 (15:14→19:56)
[2020-07-08] MEDS: CHLORHEXIDINE GLUCONATE 4% CLEANSER FOR DECOLONIZATION TP SCH (21:07)
[2020-07-09] MEDS: dilTIAZem HCL 50 MG/10 ML - 10 ML VIAL IVPUSH PRN ×2 (05:49→22:32)
[2020-07-09] MEDS: GABAPENTIN 300 MG CAPSULE PO SCH ×3 (06:28→21:48)
[2020-07-09] MEDS: SOTALOL HCL 80 MG TABLET (FP) PO SCH ×3 (06:28→21:49)
[2020-07-09] MEDS ORDERED: PT OWN MED DRAWER 7, Y5N ONE ×2 (09:46→20:52)
[2020-07-09] MEDS: AMINO ACIDS/PROTEIN HYDROLYS 30 ML LIQUID.PKT PO SCH ×2 (09:50→17:27)
[2020-07-09] MEDS: MIDODRINE HCL 5 MG TABLET PO SCH ×3 (09:50→17:27)
[2020-07-09] MEDS: PANTOPRAZOLE 40 MG TABLET PO SCH (09:50)
[2020-07-09] MEDS: MULTIVITAMINS (DAILY MVI) TABLET (FP) PO SCH (09:51)
[2020-07-09] MEDS: IRON POLYSACCHARIDES 150 MG CAPSULE PO SCH (09:51)
[2020-07-09] MEDS: CHOLECALCIFEROL (VIT D3) 1,000 UNIT (25 MCG) TABLET PO SCH (09:51)
[2020-07-09] MEDS: ASCORBIC ACID 500 MG TABLET (FP) PO SCH ×2 (09:51→21:49)
[2020-07-09] MEDS: ZINC SULFATE 220 MG CAPSULE (FP) PO SCH (09:51)
[2020-07-09] MEDS: SCOPOLAMINE HYDROBROMIDE 1 PATCH PATCH.TD72 TD SCH (15:23)
[2020-07-09] MEDS: LACTATED RINGERS SOLUTION 1,000 ML IV SCH ×2 (15:24→15:33)
[2020-07-09] MEDS: BANATROL PLUS POWDER PACKET PO SCH (21:48)
[2020-07-10] MEDS: dilTIAZem HCL 50 MG/10 ML - 10 ML VIAL IVPUSH PRN (05:17)
[2020-07-10] MEDS: BANATROL PLUS POWDER PACKET PO SCH ×3 (05:19→21:40)
[2020-07-10] MEDS: SOTALOL HCL 80 MG TABLET (FP) PO SCH ×3 (05:19→21:41)
[2020-07-10] MEDS: GABAPENTIN 300 MG CAPSULE PO SCH ×3 (05:19→21:41)
[2020-07-10] MEDS: AMINO ACIDS/PROTEIN HYDROLYS 30 ML LIQUID.PKT PO SCH ×2 (11:52→17:16)
[2020-07-10] MEDS: CHOLECALCIFEROL (VIT D3) 1,000 UNIT (25 MCG) TABLET PO SCH (11:53)
[2020-07-10] MEDS: PANTOPRAZOLE 40 MG TABLET PO SCH (11:53)
[2020-07-10] MEDS: ASCORBIC ACID 500 MG TABLET (FP) PO SCH ×2 (11:53→21:41)
[2020-07-10] MEDS: MULTIVITAMINS (DAILY MVI) TABLET (FP) PO SCH (11:54)
[2020-07-10] MEDS: MIDODRINE HCL 5 MG TABLET PO SCH ×3 (11:54→17:16)
[2020-07-10] MEDS: ZINC SULFATE 220 MG CAPSULE (FP) PO SCH (11:54)
[2020-07-10] MEDS: IRON POLYSACCHARIDES 150 MG CAPSULE PO SCH (11:54)
[2020-07-10] MEDS: LACTATED RINGERS SOLUTION 1,000 ML IV SCH (11:54)
[2020-07-11] MEDS: SOTALOL HCL 80 MG TABLET (FP) PO SCH ×3 (05:32→23:12)
[2020-07-11] MEDS: GABAPENTIN 300 MG CAPSULE PO SCH ×3 (05:33→23:12)
[2020-07-11] MEDS: BANATROL PLUS POWDER PACKET PO SCH ×3 (05:33→23:11)
[2020-07-11] MEDS: CHOLECALCIFEROL (VIT D3) 1,000 UNIT (25 MCG) TABLET PO SCH (11:00)
[2020-07-11] MEDS: MIDODRINE HCL 5 MG TABLET PO SCH ×3 (11:00→17:35)
[2020-07-11] MEDS: MULTIVITAMINS (DAILY MVI) TABLET (FP) PO SCH (11:00)
[2020-07-11] MEDS: ZINC SULFATE 220 MG CAPSULE (FP) PO SCH (11:00)
[2020-07-11] MEDS: IRON POLYSACCHARIDES 150 MG CAPSULE PO SCH (11:01)
[2020-07-11] MEDS: AMINO ACIDS/PROTEIN HYDROLYS 30 ML LIQUID.PKT PO SCH ×2 (11:01→17:36)
[2020-07-11] MEDS: ASCORBIC ACID 500 MG TABLET (FP) PO SCH ×2 (11:01→23:12)
[2020-07-11] MEDS: LACTATED RINGERS SOLUTION 1,000 ML IV SCH (11:01)
[2020-07-11] MEDS: PANTOPRAZOLE 40 MG TABLET PO SCH (11:01)
[2020-07-11] MEDS ORDERED: PT OWN MED DRAWER 7, Y5N ONE ×3 (13:36→23:10)
[2020-07-12] MEDS: GABAPENTIN 300 MG CAPSULE PO SCH ×3 (06:47→21:58)
[2020-07-12] MEDS: SOTALOL HCL 80 MG TABLET (FP) PO SCH ×3 (06:47→21:58)
[2020-07-12] MEDS: BANATROL PLUS POWDER PACKET PO SCH ×3 (06:47→21:58)
[2020-07-12] MEDS: PANTOPRAZOLE 40 MG TABLET PO SCH (09:48)
[2020-07-12] MEDS: IRON POLYSACCHARIDES 150 MG CAPSULE PO SCH (09:48)
[2020-07-12] MEDS: CHOLECALCIFEROL (VIT D3) 1,000 UNIT (25 MCG) TABLET PO SCH (09:48)
[2020-07-12] MEDS: AMINO ACIDS/PROTEIN HYDROLYS 30 ML LIQUID.PKT PO SCH ×2 (09:48→17:25)
[2020-07-12] MEDS: MULTIVITAMINS (DAILY MVI) TABLET (FP) PO SCH (09:48)
[2020-07-12] MEDS: MIDODRINE HCL 5 MG TABLET PO SCH ×3 (09:48→17:25)
[2020-07-12] MEDS: ASCORBIC ACID 500 MG TABLET (FP) PO SCH ×2 (09:48→21:58)
[2020-07-12] MEDS ORDERED: PT OWN MED DRAWER 7, Y5N ONE (13:47)
[2020-07-12] MEDS: SCOPOLAMINE HYDROBROMIDE 1 PATCH PATCH.TD72 TD SCH (13:49)
[2020-07-13] MEDS: BANATROL PLUS POWDER PACKET PO SCH ×3 (06:40→21:34)
[2020-07-13] MEDS: SOTALOL HCL 80 MG TABLET (FP) PO SCH ×3 (06:40→21:34)
[2020-07-13] MEDS: GABAPENTIN 300 MG CAPSULE PO SCH ×3 (06:40→21:34)
[2020-07-13] MEDS: AMINO ACIDS/PROTEIN HYDROLYS 30 ML LIQUID.PKT PO SCH ×2 (10:04→17:26)
[2020-07-13] MEDS: MULTIVITAMINS (DAILY MVI) TABLET (FP) PO SCH (10:05)
[2020-07-13] MEDS: PANTOPRAZOLE 40 MG TABLET PO SCH (10:05)
[2020-07-13] MEDS: CHOLECALCIFEROL (VIT D3) 1,000 UNIT (25 MCG) TABLET PO SCH (10:05)
[2020-07-13] MEDS: MIDODRINE HCL 5 MG TABLET PO SCH ×3 (10:05→17:26)
[2020-07-13] MEDS: IRON POLYSACCHARIDES 150 MG CAPSULE PO SCH (10:05)
[2020-07-13] MEDS: ASCORBIC ACID 500 MG TABLET (FP) PO SCH ×2 (10:05→21:34)
[2020-07-13] MEDS ORDERED: PT OWN MED DRAWER 7, Y5N ONE ×2 (17:22→21:32)
[2020-07-14] MEDS ORDERED: PT OWN MED DRAWER 7, Y5N ONE ×2 (07:30→21:32)
[2020-07-14] MEDS: SOTALOL HCL 80 MG TABLET (FP) PO SCH ×3 (07:31→22:16)
[2020-07-14] MEDS: GABAPENTIN 300 MG CAPSULE PO SCH ×3 (07:47→22:16)
[2020-07-14] MEDS: BANATROL PLUS POWDER PACKET PO SCH ×3 (07:47→22:16)
[2020-07-14] MEDS: IRON POLYSACCHARIDES 150 MG CAPSULE PO SCH (09:01)
[2020-07-14] MEDS: CHOLECALCIFEROL (VIT D3) 1,000 UNIT (25 MCG) TABLET PO SCH (09:01)
[2020-07-14] MEDS: AMINO ACIDS/PROTEIN HYDROLYS 30 ML LIQUID.PKT PO SCH ×2 (09:01→17:45)
[2020-07-14] MEDS: ASCORBIC ACID 500 MG TABLET (FP) PO SCH ×2 (09:01→22:16)
[2020-07-14] MEDS: MIDODRINE HCL 5 MG TABLET PO SCH ×3 (09:01→17:45)
[2020-07-14] MEDS: PANTOPRAZOLE 40 MG TABLET PO SCH (09:01)
[2020-07-14] MEDS: MULTIVITAMINS (DAILY MVI) TABLET (FP) PO SCH (09:01)
[2020-07-14] MEDS: dilTIAZem HCL 50 MG/10 ML - 10 ML VIAL IVPUSH PRN (09:15)
[2020-07-15] MEDS: SOTALOL HCL 80 MG TABLET (FP) PO SCH (06:10)
[2020-07-15] MEDS: BANATROL PLUS POWDER PACKET PO SCH (06:11)
[2020-07-15] MEDS: GABAPENTIN 300 MG CAPSULE PO SCH (06:11)
[2020-07-15] MEDS: AMINO ACIDS/PROTEIN HYDROLYS 30 ML LIQUID.PKT PO SCH (11:29)
[2020-07-15] MEDS: MULTIVITAMINS (DAILY MVI) TABLET (FP) PO SCH (11:30)
[2020-07-15] MEDS: MIDODRINE HCL 5 MG TABLET PO SCH (11:30)
[2020-07-15] MEDS: IRON POLYSACCHARIDES 150 MG CAPSULE PO SCH (11:30)
[2020-07-15] MEDS: PANTOPRAZOLE 40 MG TABLET PO SCH (11:30)
[2020-07-15] MEDS: ASCORBIC ACID 500 MG TABLET (FP) PO SCH (11:31)
[2020-07-15] MEDS: CHOLECALCIFEROL (VIT D3) 1,000 UNIT (25 MCG) TABLET PO SCH (11:31)
[2020-07-15 16:39] VITALS: BP 98/66; PULSE 116; TEMP 98.1
== END 2020-07-15 12:27 | DRG 871 ==
LOC: JER 14:31 → JERBED 19:04 → J4S 06-12 22:19 → JICU 06-13 21:26 → J4W 06-29 01:21
PROVIDERS: ADMIT Family Medicine; ATTEND Family Medicine
PROC: 05HY33Z Insertion of Infusion Device into Upper Vein, Percutaneous Approach (ICD-10-PCS; principal; 2020-06-17)
DX: A41.9 Sepsis, unspecified organism (principal); J18.9 Pneumonia, unspecified organism; I50.33 Acute on chronic diastolic (congestive) heart failure; G93.41 Metabolic encephalopathy; C34.11 Malignant neoplasm of upper lobe, right bronchus or lung; E87.2 Acidosis; I24.8 Other forms of acute ischemic heart disease; I48.92 Unspecified atrial flutter; R64 Cachexia; N39.0 Urinary tract infection, site not specified; I48.0 Paroxysmal atrial fibrillation; I10 Essential (primary) hypertension; R62.7 Adult failure to thrive; D72.829 Elevated white blood cell count, unspecified; D64.9 Anemia, unspecified; I95.9 Hypotension, unspecified; J44.9 Chronic obstructive pulmonary disease, unspecified; E78.5 Hyperlipidemia, unspecified; R00.0 Tachycardia, unspecified; E87.6 Hypokalemia
CPT/HCPCS: 36415; 36430; 36600; 70450-TC; 71045-TC-FY; 74177-TC; 80053; 80061; 80074; 81003; 82172; 82272; 82533; 82550; 82553; 82728; 82803; 82962; 82977; 83010; 83540; 83550; 83605; 83615; 83690; 83721; 83735; 83880; 83883; 84100; 84460; 84484; 85025; 85027; 85379; 85610; 85730; 86140; 86704; 86705; 86706; 86707; 86850; 86900; 86901; 86922; 87040; 87045; 87046; 87077; 87081; 87086; 87177; 87186; 87209; 87324; 87449; 87804; 87899; 93005; 93010; 93306-TC; 97116-GP; 97162-GP; 99285-25; C9803; G0480; J0131; J1327; P9058; Q9967; U0003